=== PATIENT | female | born 1960 | race Caucasian/White ===

== ENCOUNTER 2017-05-29 14:58 | Inpatient (IN) | payer MEDICARE, MEDICAID ==
[~2017-05-29] VITALS: Ht 165.1 cm; Wt 63.5 kg
[2017-05-29] MEDS ORDERED: Vancomycin 1 GM in NS 275 ML IV ONE (15:15)
[2017-05-29] MEDS ORDERED: Lidocaine 1% MPF 10mg/ml 5ml INJ ONE (15:15)
[2017-05-29] MEDS ORDERED: Heparin 2000 units/Ns 1000ml IV ONE (15:15)
[2017-05-29] MEDS ORDERED: Morphine Sulfate 4mg/ml Inj ONE (16:07)
[2017-05-29] MEDS ORDERED: Vancomycin 1gm inj IVPB ONE (16:07)
[2017-05-29] MEDS ORDERED: Morphine Sulfate 4mg/ml Inj IVP ONE ×2 (16:15→20:00)
--- NOTE | 2017-05-29 16:21 | Diagnostic Imaging Report ---
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 The right upper extremity was prepped with alcohol. All elements of maximal sterile barrier technique were followed including usage of a cap, mask, sterile gown, sterile gloves, hand hygiene and a large sterile sheet. Sonographic evaluation of the upper extremity was performed demonstrating a patent and compressible basilic vein. Access was obtained under real-time ultrasound guidance (with utilization of sterile gel and sterile probe cover) and digital image was saved and archived. An .018 wire was introduced. Needle exchanged for a 5 Surinamese peel-away sheath. Measurements were obtained. A 5 Surinamese dual-lumen Power PICC line catheter was cut to 47 cm and introduced over the wire. Peel-away sheath and wire were removed.Catheter was secured to the skin using 2-0 Prolene suture. Both ports aspirate and flush easily. Fluoroscopic images show distal tip in the superior vena cava. Total fluoroscopic time 0.2 minutes Impression: Successful placement of an upper extremity PICC line catheter
--- NOTE | 2017-05-29 16:37 | Diagnostic Imaging Report ---
Indication: PICC line placement. Chest pain Comparison: None A single view chest radiograph was obtained. Findings: No definite infiltrate or pulmonary vascular congestion identified. PICC line is in good position with the tip at the junction of SVC and right atrium. The heart is enlarged. The aorta is mildly enlarged consistent with atherosclerotic vascular disease. The bones are osteopenic. Impression: No acute disease
[2017-05-29 17:07] LABS: ANION GAP 6 mmol/L (5-15); BLOOD UREA NITROGEN 13 mg/dL (7-18); CALCIUM 9.9 MG/DL (8.5-10.1); CARBON DIOXIDE 31 MMOL/L (21-32); CHLORIDE 100 MMOL/L (98-107); CREATININE 0.8 MG/DL (0.55-1.30); SODIUM 137 MMOL/L (136-145)
[2017-05-29 17:08] VITALS: BP 130/95
[2017-05-29 17:08] LABS: BASOPHILS % (AUTO) 0.9 % (0.0-2.0); EOSINOPHILS % (AUTO) 1.6 % (0.0-3.0); HEMATOCRIT 42.6 % (37.0-47.0); HEMOGLOBIN 14.7 G/DL (12.0-16.0); LYMPHOCYTES % (AUTO) 24.2 % (20.0-45.0); MEAN CORPUSCULAR VOLUME 93 FL (80-99); MONOCYTES % (AUTO) 12.7 % (1.0-10.0); NEUTROPHILS % (AUTO) 60.7 % (45.0-75.0); PLATELET COUNT 219 K/UL (150-450); RED BLOOD COUNT 4.58 M/UL (4.20-5.40); RED CELL DISTRIBUTION WIDTH 13.4 % (11.6-14.8); WHITE BLOOD COUNT 9.8 K/UL (4.8-10.8)
[2017-05-29 17:12] LABS: ALANINE AMINOTRANSFERASE 28 U/L (12-78); ALBUMIN/GLOBULIN RATIO 0.6 (1.0-2.7); ALKALINE PHOSPHATASE 98 U/L (46-116); ASPARTATE AMINO TRANSFERASE 24 U/L (15-37); BILIRUBIN,TOTAL 0.2 MG/DL (0.2-1.0)
[2017-05-29] MEDS ORDERED: TRAMADOL HCL50 MG ORAL (17:37)
[2017-05-29] MEDS ORDERED: ZINC SULFATE220 M1 ORAL (17:37)
[2017-05-29] MEDS ORDERED: KLONOPIN1 MG ORAL (17:37)
[2017-05-29] MEDS ORDERED: OXYCODONE HCL5 M2 ORAL (17:37)
[2017-05-29] MEDS ORDERED: ASPIRIN325 MG ORAL (17:37)
[2017-05-29] MEDS ORDERED: CALCIUM + VITA1 EAC1 PO (17:37)
[2017-05-29] MEDS ORDERED: BENADRYL25 MG ORAL (17:37)
[2017-05-29] MEDS ORDERED: LEVOFLOXACIN750 MG ORAL (17:37)
[2017-05-29] MEDS ORDERED: DOCUSATE SODIU100 MG ORAL (17:37)
[2017-05-29] MEDS ORDERED: BACLOFEN10 MG ORAL (17:37)
[2017-05-29 19:30] VITALS: BP 129/94
--- NOTE | 2017-05-29 19:32 | Consultation ---
Consult Note Consult Note ID DIC # [id number] RAMAN MULLIGAN M.D. May 29, 2017 19:32
[2017-05-29 19:55] VITALS: BP 122/89
--- NOTE | 2017-05-29 21:21 | Emergency Room Report ---
History of Present Illness General Chief Complaint: General Complaint Source: Patient, Medical Record Present Illness HPI Patient has history of cellulitis of left foot. Patient has history of diabetes. Patient states that she has require IV antibiotics in the past. [facility] She was sent here because of worsening left foot pain. Swelling and discharge. She thinks that it's infected. She denies any fever nausea vomiting or chills. Symptoms noted to be severe.No other modifying factors. No other associated signs and symptoms. No other complaints were noted. Allergies: Coded Allergies: No Known Allergies (Unverified , 05/29/17) Patient History Past Medical History: HTN, other - depression Past Surgical History: none Pertinent Family History: none Social History: Denies: smoking, alcohol use, drug use Reviewed Nursing Documentation: PMH: Agreed, PSxH: Agreed Nursing Documentation-PMH Hx Hypertension: Yes History Of Psychiatric Problem: Yes - depression Review of Systems All Other Systems: negative except mentioned in HPI Physical Exam Vital Signs Date Time Temp Pulse Resp B/P (MAP) Pulse Ox O2 Delivery O2 Flow Rate FiO2 05/29/17 14:52 98.3 92 18 130/95 97 Room Air 98.2 Sp02 EP Interpretation: reviewed, normal General Appearance: normal inspection, well appearing, no apparent distress, alert, obese Head: atraumatic Eyes: bilateral eye normal inspection ENT: normal ENT inspection, hearing grossly normal, normal voice Neck: normal inspection, full range of motion, supple, no bony tend Respiratory: normal inspection, lungs clear, normal breath sounds, no respiratory distress, no retraction, no wheezing Cardiovascular #1: regular rate, rhythm, no edema Gastrointestinal: normal inspection, normal bowel sounds, non tender, soft, no guarding, no hernia Genitourinary: no CVA tenderness Musculoskeletal: back normal, inflammation - left foot, swelling Neurologic: normal inspection, alert, responsive, speech normal Psychiatric: normal inspection, judgement/insight normal, mood/affect normal Skin: other - left foot swelling redness Medical Decision Making Diagnostic Impression: Primary Impression: Cellulitis ER Course Patient presents emergency department for pain. Differential considerations include abscess, cellulitis, ophthalmologic. Given patient's presentation for the patient IV antibiotics and PICC line was placed. Patient was given pain medication. Case was discussed with his primary care physician Dr. Kramer. Patient will be admitted to MedSurg for further treatment. Patient was started on vancomycin for the cellulitis. Chest X-Ray Diagnostic Results Chest X-Ray Diagnostic Results : Chest X-Ray Ordered: Yes # of Views/Limited/Complete: 1 View Indication: Other - PICC line EP Interpretation: No Impression: No acute disease Last Vital Signs Date Time Temp Pulse Resp B/P (MAP) Pulse Ox O2 Delivery O2 Flow Rate FiO2 05/29/17 20:10 98.1 78 17 122/89 100 Room Air 208.8 Status: improved Disposition: ADMITTED INPATIENT Condition: Serious Referrals: ANN DONALDSON (PCP) ESMER HASTINGS M.D. May 29, 2017 21:21
[2017-05-29] MEDS ORDERED: traMADol 50mg tab ORAL PRN (22:00)
[2017-05-29] MEDS: D5 1/2NS 1,000 ML IV SCH (22:54)
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
[2017-05-30] MEDS: Piperacillin/Tazobactam 3.375 GM in NS 110 ML IVPB SCH ×4 (00:39→18:08)
[2017-05-30] MEDS: Morphine Sulfate 2mg/ml Inj IVP PRN ×4 (03:00→17:18)
[2017-05-30 04:00] VITALS: BP 120/66
[2017-05-30] MEDS: Vancomycin 1gm/D5W 275ml IVPB SCH ×4 (04:20→15:54)
[2017-05-30 06:28] LABS: BASOPHILS % (AUTO) 0.8 % (0.0-2.0); EOSINOPHILS % (AUTO) 2.8 % (0.0-3.0); HEMATOCRIT 37.7 % (37.0-47.0); HEMOGLOBIN 12.7 G/DL (12.0-16.0); LYMPHOCYTES % (AUTO) 37.5 % (20.0-45.0); MEAN CORPUSCULAR VOLUME 94 FL (80-99); MONOCYTES % (AUTO) 14.6 % (1.0-10.0); NEUTROPHILS % (AUTO) 44.3 % (45.0-75.0); PLATELET COUNT 182 K/UL (150-450); RED BLOOD COUNT 4.02 M/UL (4.20-5.40); RED CELL DISTRIBUTION WIDTH 13.3 % (11.6-14.8); WHITE BLOOD COUNT 5.1 K/UL (4.8-10.8)
[2017-05-30 08:15] VITALS: BP 107/66
[2017-05-30] MEDS: Zinc Sulfate 220mg cap ORAL SCH (08:49)
[2017-05-30] MEDS: Docusate 100mg cap ORAL SCH ×3 (08:49→18:08)
[2017-05-30] MEDS: Heparin 5000 units/ml inj SUBQ SCH ×2 (08:50→22:01)
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
[2017-05-30] MEDS: Tums 500mg ORAL SCH ×2 (09:51→18:08)
[2017-05-30 10:03] LABS: APPEARANCE,URINE SLIGHTLY CLOUDY; BILIRUBIN, URINE NEGATIVE (NEGATIVE); COLOR,URINE PALE YELLOW; GLUCOSE, URINE (UA) NEGATIVE (NEGATIVE); KETONES,URINE 1+ (NEGATIVE); LEUKOCYTE ESTERASE ,URINE 1+ (NEGATIVE); NITRITE,URINE NEGATIVE (NEGATIVE); PH,URINE 6 (4.5-8.0); PROTEIN,URINE NEGATIVE (NEGATIVE); UROBILINOGEN,URINE NORMAL MG/DL (0.0-1.0)
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
[2017-05-30 10:22] LABS: ALANINE AMINOTRANSFERASE 24 U/L (12-78); ALBUMIN 2.8 G/DL (3.4-5.0); ALBUMIN/GLOBULIN RATIO 0.6 (1.0-2.7); ALKALINE PHOSPHATASE 85 U/L (46-116); ANION GAP 6 mmol/L (5-15); ASPARTATE AMINO TRANSFERASE 28 U/L (15-37); BILIRUBIN,TOTAL 0.6 MG/DL (0.2-1.0); BLOOD UREA NITROGEN 11 mg/dL (7-18); CALCIUM 9.6 MG/DL (8.5-10.1); CARBON DIOXIDE 29 MMOL/L (21-32); CHLORIDE 100 MMOL/L (98-107); CREATININE 0.8 MG/DL (0.55-1.30); POTASSIUM 3.9 MMOL/L (3.5-5.1); SODIUM 135 MMOL/L (136-145)
--- NOTE | 2017-05-30 10:58 | Diagnostic Imaging Report ---
Indication: Left foot pain Comparison: None Findings: 3 views of the left foot were obtained. There is destruction of the distal tibial plafond and ankle architecture with deformtiy on the basis of erosions and osteolysis, fractures and fragmentation of the bones. The standard architecture is not defined. There is an intramedullary isabel in the distal tibia noted. There is extravasated methylmethacrylate cement projected over the hindfoot probably emanating from the distal tibia. The cement extends to the far plantar aspect of the foot bulging the plantar aponeurosis. At the apex of the cement on the plantar part of the foot, there is focal soft tissue protuberance with infiltration of the subcutaneous fat. Please correlate clinically. There is diffuse soft tissue swelling. The bones are diffusely osteopenic. IMPRESSION: Extravasated cement, destruction and severe erosion of the ankle and hindfoot as described above.
[2017-05-30 12:00] VITALS: BP 100/64
[2017-05-30] MEDS: D5 1/2NS 1,000 ML IV SCH (14:40)
[2017-05-30 16:00] VITALS: BP 112/75
--- NOTE | 2017-05-30 21:00 | History and Physical Report ---
DATE OF ADMISSION: 05/29/2017 ATTENDING PHYSICIAN: Choco Stubbs D.O. CONSULTANTS: 1. Toñito Russ D.P.M. 2. Sarthak Sutherland M.D. 3. Rosa Cheatham M.D. CHIEF COMPLAINT: Left foot cellulitis and swelling.l BRIEF HISTORY: This is a 56[facility], presented with the above-mentioned diagnosis. She had this left foot swelling and cellulitis intermittently for the last 10 years, but for the last week started getting worse, more tender, more red, and swollen. The patient came into [facility], diagnosed with the above, admitted to medical floor for further treatment. Currently calm in bed. No complaint. No chest pain. No shortness of breath. No nausea, vomiting, or diarrhea. PAST MEDICAL HISTORY: Left foot cellulitis, hypertension, anxiety, and obesity. PAST SURGICAL HISTORY: Left foot, back, and appendectomy. MEDICATIONS: Zyprexa, aspirin, zinc, Colace, Klonopin, , Neurontin, heparin, vancomycin, Zosyn, morphine, tramadol, Percocet, and Restoril. ALLERGIES: Denies. SOCIAL HISTORY: Positive smoking. No alcohol. No intravenous drug use. FAMILY HISTORY: Noncontributory. PHYSICAL EXAMINATION: GENERAL: Calm in bed, oriented x2, in no acute distress. VITAL SIGNS: Temperature is 98 degrees, pulse 67, respirations 17, and blood pressure 107/66. CARDIOVASCULAR: No murmur. LUNGS: Distant. Poor exchange. ABDOMEN: Bowel sounds distant. EXTREMITIES: No cyanosis or clubbing. 1+ edema. Left foot slightly deformed, swollen at ankle area, slightly red and warm. No discharge. NEUROLOGIC: The patient moves all extremities, but slightly weak. LABORATORY AND DIAGNOSTIC DATA: Show CBC is normal. BMP shows albumin 3.0, otherwise, BMP is normal. ASSESSMENT: 1. Left foot cellulitis. 2. Hypertension. 3. Anxiety. 4. Hypoalbumin. 5. Obesity. PLAN: 1. Continue premedications. 2. Wound care. 3. Antibiotics per Infectious Diseases. 4. Blood pressure. 5. Pain control. 6. Dietary followup. 7. Psychiatric treatment. 8. Resume home medications. 9. Dr. Russ, Dr. Sutherland, and Dr. Herron to consult. CBC and BMP in the morning. Choco Stubbs D.O. DR: Ras JOB#: [id number] CC:
[2017-05-30] MEDS: Dyna-Hex 2% Top Sol 2oz TOPIC SCH (21:59)
[2017-05-30] MEDS: oxyCODONE HCL/Acetaminophen 5/325mg ORAL PRN (21:59)
[2017-05-31] VITALS: BP 107/73
--- NOTE | 2017-05-31 | Consultation ---
DATE OF CONSULTATION: 05/30/2017 INITIAL PSYCHIATRIC EVALUATION CONSULTING PHYSICIAN: Rosa Cheatham M.D. HISTORY OF PRESENT ILLNESS: The patient is a 56-year-old female patient. She was admitted secondary to cellulitis, but she also has overlying history of bipolar 2 disorder and so, she is having increased mood lability secondary to the stress of her medical illness and today, daily psychiatric consultation requested by attending physician to see this patient to stabilize her mood and to reduce her mood lability, agitation, and to prevent any further decline in her cognition. I saw and assessed her at bedside today. She is still very angry, irritable saying that there are lot of medication changes that she needs to make her stable more at her baseline. She states she usually does well, taking also lithium 300 mg twice a day as a mood stabilizer and for anxiety, Klonopin, which she states normally she takes three times a day and she states that usually stabilizes her well. PSYCHOTROPIC MEDICATIONS: Additional psychotropic medications are Neurontin 300 mg three times a day and Zyprexa 5 mg nightly. ALLERGIES: No known drug allergies. MEDICAL PROBLEMS: She has cellulitis, but she also has infection and chronic pain. SUBSTANCE ABUSE HISTORY: Denies drug and alcohol use. FAMILY PSYCHIATRIC HISTORY: Denies. PAIN ASSESSMENT: 06/06 pain. DEVELOPMENTAL PROBLEMS: Denies. SOCIAL HISTORY: This patient lives in a fci, [facility]. Financially supported by [facility] and Medicare. PSYCHIATRIC HISTORY: Multiple psychiatric admissions, diagnoses between bipolar 2 disorder and schizoaffective, bipolar type. MENTAL STATUS EXAMINATION: This is a 56-year-old female. Appearance is disheveled. Irritable and agitated. Affect guarded and restricted. Intellect poor. Mood, depressed and anxious. Motor activity, psychomotor agitation. Attention span is poor. Orientation x2. Speech is pressured. Thought process, disorganized and illogical. Thought content, she has paranoid delusions. Her insight and judgment is poor. Memory, 3/3 word recall after 5 minutes delay with good memory. Insight and judgment is poor. DIAGNOSES: 1. Schizoaffective, bipolar type. 2. Medical history - please see Internal Medicine note. 3. Psychosocial stressors - financial. PLAN: Plan for this patient is to provide her with 15 to 20 minutes of supportive therapy with this patient today at bedside. Also, I am going to add Rampart 300 mg twice a day to augment mood stabilizing effect with Zyprexa 5 mg nightly. Also, continue Neurontin 300 mg three times a day and Klonopin 1 mg three times a day to reduce anxiety and encourage her to interact appropriately with staff and other patients. Chart reviewed and discussed with staff. The patient seen and assessed at bedside. She will continue to be followed by Psychiatry throughout hospital course at the request of her attending physician to be seen daily. I would like to thank Dr. Choco Stubbs for this interesting consultation. I will be happy to follow this patient with you throughout her hospital course. Again, 15 to 20 minutes supportive therapy was provided. Rosa Cheatham M.D. DR: Lily JOB#: [id number] CC:
[2017-05-31] MEDS: Piperacillin/Tazobactam 3.375 GM in NS 110 ML IVPB SCH ×4 (00:36→21:42)
[2017-05-31] MEDS: Morphine Sulfate 2mg/ml Inj IVP PRN ×6 (00:37→23:25)
[2017-05-31 02:44] LABS: BASOPHILS % (AUTO) 0.9 % (0.0-2.0); EOSINOPHILS % (AUTO) 4.5 % (0.0-3.0); HEMATOCRIT 41.1 % (37.0-47.0); HEMOGLOBIN 13.8 G/DL (12.0-16.0); LYMPHOCYTES % (AUTO) 34.5 % (20.0-45.0); MEAN CORPUSCULAR VOLUME 92 FL (80-99); MONOCYTES % (AUTO) 15.9 % (1.0-10.0); NEUTROPHILS % (AUTO) 44.2 % (45.0-75.0); PLATELET COUNT 192 K/UL (150-450); RED BLOOD COUNT 4.49 M/UL (4.20-5.40); RED CELL DISTRIBUTION WIDTH 13.1 % (11.6-14.8); WHITE BLOOD COUNT 6.1 K/UL (4.8-10.8)
[2017-05-31 02:48] LABS: ANION GAP 4 mmol/L (5-15); BLOOD UREA NITROGEN 13 mg/dL (7-18); CALCIUM 9.1 MG/DL (8.5-10.1); CARBON DIOXIDE 32 MMOL/L (21-32); CHLORIDE 103 MMOL/L (98-107); CREATININE 0.8 MG/DL (0.55-1.30); POTASSIUM 3.8 MMOL/L (3.5-5.1); SODIUM 139 MMOL/L (136-145)
[2017-05-31] MEDS: Vancomycin 1gm/D5W 275ml IVPB SCH ×4 (03:14→16:13)
[2017-05-31 04:00] VITALS: BP 114/71
[2017-05-31] MEDS: D5 1/2NS 1,000 ML IV SCH (07:28)
[2017-05-31 08:00] VITALS: BP 110/73
[2017-05-31] MEDS: Zinc Sulfate 220mg cap ORAL SCH (08:43)
[2017-05-31] MEDS: Tums 500mg ORAL SCH ×2 (08:43→18:13)
[2017-05-31] MEDS: Docusate 100mg cap ORAL SCH ×2 (08:43→18:13)
[2017-05-31] MEDS: Heparin 5000 units/ml inj SUBQ SCH ×2 (08:45→21:48)
--- NOTE | 2017-05-31 08:57 | General Progress Note ---
Assessment/Plan Problem List: (1) HTN (hypertension) ICD Codes: I10 - Essential (primary) hypertension SNOMED: 79140222 (2) Edema ICD Codes: R60.9 - Edema, unspecified SNOMED: 835502658, 264968714 (3) Hypoalbuminemia ICD Codes: E88.09 - Other disorders of plasma-protein metabolism, not elsewhere classified SNOMED: 053168298 (4) Anxiety ICD Codes: F41.9 - Anxiety disorder, unspecified SNOMED: 06329099 (5) Cellulitis ICD Codes: L03.90 - Cellulitis, unspecified SNOMED: 112558617 Status: unchanged Assessment/Plan ot pt diet abx pain control cbc bmp am Subjective Constitutional: Reports: weakness Allergies: Coded Allergies: No Known Allergies (Unverified , 05/29/17) All Systems: reviewed and negative except above Subjective calm in bed Objective Last 24 Hour Vital Signs Date Time Temp Pulse Resp B/P (MAP) Pulse Ox O2 Delivery O2 Flow Rate FiO2 05/31/17 08:00 97.5 61 21 110/73 93 97.5 05/31/17 04:00 97.2 88 21 114/71 92 97.2 05/31/17 00:00 97.6 70 20 107/73 95 97.6 05/30/17 16:00 98.0 72 17 112/75 92 Room Air 98.0 05/30/17 12:00 97.7 77 17 100/64 92 Room Air 97.7 Intake and Output 05/30/17 05/31/17 19:00 07:00 Intake Total 795.000 ml 960 ml Balance 795.000 ml 960 ml Intake Oral 300 ml IV Total 795.000 ml 660 ml # Voids 8 2 Laboratory Tests 05/30/17 09:00: Urine Color Pale yellow, Urine Appearance Slightly cloudy, Urine pH 6, Urine Specific [place] 1.015, Urine Protein Negative, Urine Glucose (UA) Negative, Urine Ketones 1+H, Urine Occult Blood Negative, Urine Nitrite Negative, Urine Bilirubin Negative, Urine Urobilinogen Normal, Urine Leukocyte Esterase 1+H, Urine RBC 0-2, Urine WBC 5-10H, Urine Squamous Epithelial Cells ManyH, Urine Bacteria Few 05/30/17 09:10: Sodium Level 135L, Potassium Level 3.9, Chloride Level 100, Carbon Dioxide Level 29, Anion Gap 6, Blood Urea Nitrogen 11, Creatinine 0.8, Estimat Glomerular Filtration Rate > 60, Glucose Level 98, Calcium Level 9.6, Total Bilirubin 0.6, Aspartate Amino Transf (AST/SGOT) 28, Alanine Aminotransferase ( ALT/SGPT) 24, Alkaline Phosphatase 85, Total Protein 7.5, Albumin 2.8L, Globulin 4.7, Albumin/Globulin Ratio 0.6L 05/31/17 02:15: Sodium Level 139, Potassium Level 3.8, Chloride Level 103, Carbon Dioxide Level 32, Anion Gap 4L, Blood Urea Nitrogen 13, Creatinine 0.8, Estimat Glomerular Filtration Rate > 60, Glucose Level 109H, Calcium Level 9.1, White Blood Count 6.1, Red Blood Count 4.49, Hemoglobin 13.8, Hematocrit 41.1, Mean Corpuscular Volume 92, Mean Corpuscular Hemoglobin 30.8, Mean Corpuscular Hemoglobin Concent 33.7, Red Cell Distribution Width 13.1, Platelet Count 192, Mean Platelet Volume 8.2, Neutrophils (%) (Auto) 44.2L, Lymphocytes (%) (Auto) 34.5, Monocytes (%) (Auto) 15.9H, Eosinophils (%) (Auto) 4.5H, Basophils (%) (Auto) 0.9, Vancomycin Level Trough 11.0 Height (Feet): 5 Height (Inches): 5.00 Weight (Pounds): 140 General Appearance: lethargic EENT: normal ENT inspection Neck: normal alignment Cardiovascular: normal peripheral pulses, normal rate, regular rhythm Respiratory/Chest: chest wall non-tender, lungs clear, normal breath sounds Abdomen: normal bowel sounds, non tender, soft Extremities: normal inspection Edema: 1+ Arm (L), 1+ Arm (R), 1+ Leg (L), 1+ Leg (R), 1+ Pedal (L), 1+ Pedal ( R), 1+ Generalized Edema: trace edema Neurologic: motor weakness Skin: normal pigmentation, warm/dry ANN DONALDSON May 31, 2017 08:57
[2017-05-31 11:48] VITALS: BP 147/78
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
[2017-05-31 16:15] VITALS: BP 109/75
[2017-05-31] MEDS ORDERED: Tubing IV Secondary IV ONE (18:14)
[2017-05-31] MEDS ORDERED: D5 1/2NS 1000ml IV ONE (18:14)
[2017-05-31 20:00] VITALS: BP 108/72
--- NOTE | 2017-05-31 21:15 | Progress Note ---
DATE: 05/31/2017 THIS IS PSYCHIATRIC FOLLOWUP NOTE HISTORY OF PRESENT ILLNESS: The patient is a 56-year-old female patient. She has cellulitis. Because of her medical illness, her cognition has declined below baseline, she has mood lability and agitation so her attending physician has requested daily psychiatric consultation to manage this patient's mood lability, confusion, worsened by stress of her medical illness. I saw and assessed the patient at bedside. She does have some confusion and disorganized thought process and mood lability as well therefore she does require daily psychiatric consultation as requested by attending physician. MENTAL STATUS EXAMINATION: This is a 56-year-old female with psychomotor agitation. Mood is irritable and agitated. Affect guarded and restricted. Thought process disorganized. Denies any current suicidal or homicidal thoughts but has some paranoid delusions. Insight and judgment is poor. Memory 2/3 after 3 out of 3 word recall, so poor memory. DIAGNOSIS: Schizoaffective, bipolar type. PLAN: For this patient is to continue treatment with a dose of Neurontin 300 mg three times a day and Zyprexa at a dose of 5 mg p.o. at bedtime. Provided with 15 to 20 minutes supportive therapy. Encourage her to interact appropriately staff and other patient's. Chart reviewed and discussed with staff. Seen and assessed at bedside. Rosa Cheatham M.D. DR: Jae JOB#: [id number] CC:
[2017-05-31] MEDS: oxyCODONE HCL/Acetaminophen 5/325mg ORAL PRN (21:41)
[2017-05-31] MEDS: Dyna-Hex 2% Top Sol 2oz TOPIC SCH (21:41)
[2017-06-01] VITALS: BP 110/74
[2017-06-01] MEDS: D5 1/2NS 1,000 ML IV SCH ×2 (00:18→16:40)
[2017-06-01 04:00] VITALS: BP 112/68
[2017-06-01] MEDS: Vancomycin 1gm/D5W 275ml IVPB SCH ×4 (04:01→14:33)
[2017-06-01] MEDS: Piperacillin/Tazobactam 3.375 GM in NS 110 ML IVPB SCH ×3 (04:02→20:33)
[2017-06-01] MEDS: Morphine Sulfate 2mg/ml Inj IVP PRN ×4 (07:55→20:34)
[2017-06-01 08:00] VITALS: BP 137/100
--- NOTE | 2017-06-01 08:25 | Diagnostic Imaging Report ---
Indication: Pain Technique: 3 views of the left ankle Comparison: none Findings: There is extensive marked abnormality of the ankle with extensive destruction and evidence of prior surgery. The distal tibia is absent at the level of the distal diaphysis. The edge appears clean, so this is likely related to prior surgery. Spiculated periosteal reaction surrounds the distal tibial shaft. Bone cement is seen within the distal tibial medullary space. Old screw holes are seen through mid shaft tibia and through the cement column. There is also absence of the distal fibula beginning at a similar level. There is a soft tissue gap, beyond which are seen bone fragments in the region of the ankle joint. The architecture is completely disrupted, but these probably represent remains of the distal tibia and the talus. A large irregular plug of bone cement extends through the residual talar fragments, through the residual calcaneus, and protrudes well into the plantar soft tissues of the hindfoot. This is mostly surrounded by soft tissue rather than bone. The midfoot architecture is also disrupted, and to lesser extent in the hindfoot architecture. There is surrounding soft tissue swelling. No definite soft tissue gas demonstrated. Tiny metallic fragments are seen throughout the soft tissues, predominantly posteriorly Impression: Postsurgical and advanced destructive changes of the ankle, as described. Evidence of prior surgical instrumentation and subsequent hardware removal, with a large residual plug of bone cement largely currently within soft tissue. Destructive changes are presumably related to prior infection, trauma, surgery, or a combination of the above. The extent to which there is a superimposed acute process cannot be adequately assessed. Findings are also described on recent foot radiograph
[2017-06-01 08:27] LABS: EOSINOPHILS % (AUTO) 6.3 % (0.0-3.0); HEMATOCRIT 43.5 % (37.0-47.0); HEMOGLOBIN 14.8 G/DL (12.0-16.0); LYMPHOCYTES % (AUTO) 37.2 % (20.0-45.0); MEAN CORPUSCULAR VOLUME 92 FL (80-99); MONOCYTES % (AUTO) 11.3 % (1.0-10.0); NEUTROPHILS % (AUTO) 44.2 % (45.0-75.0); PLATELET COUNT 208 K/UL (150-450); RED BLOOD COUNT 4.75 M/UL (4.20-5.40); RED CELL DISTRIBUTION WIDTH 13.1 % (11.6-14.8)
[2017-06-01 08:38] LABS: ANION GAP 3 mmol/L (5-15); BLOOD UREA NITROGEN 10 mg/dL (7-18); CALCIUM 9.5 MG/DL (8.5-10.1); CARBON DIOXIDE 32 MMOL/L (21-32); CHLORIDE 104 MMOL/L (98-107); CREATININE 0.8 MG/DL (0.55-1.30); POTASSIUM 4.1 MMOL/L (3.5-5.1); SODIUM 139 MMOL/L (136-145)
[2017-06-01] MEDS: Docusate 100mg cap ORAL SCH ×2 (09:46→17:52)
[2017-06-01] MEDS: Tums 500mg ORAL SCH ×2 (09:47→17:52)
[2017-06-01] MEDS: Zinc Sulfate 220mg cap ORAL SCH (09:48)
[2017-06-01] MEDS: Heparin 5000 units/ml inj SUBQ SCH ×2 (09:52→20:36)
[2017-06-01] MEDS ORDERED: Milk of Magnesia 30ml Ud ORAL PRN (10:45)
[2017-06-01 12:00] VITALS: BP 149/81
--- NOTE | 2017-06-01 12:31 | Diagnostic Imaging Report ---
Indication: Reason For Exam: INFECT Technique: Sagittal, axial, coronal T1 fast spin echo and fast spin echo STIR images obtained of the ankle Comparison: Plain radiograph dated 05/31/2017 Findings: Extensive destructive abnormality of the ankle is demonstrated, also demonstrated on prior plain radiograph As demonstrated on the radiograph, the distal tibia terminates at the level of the distal diaphysis. The distal tibial shaft contains a column of what is presumably bone cement. Distal to and also surrounding the bone cement, there is high STIR and low T2 signal. As demonstrated on the radiograph, the distal fibula terminates at the level of the the distal diaphysis. There is some increased STIR signal at the tip and probably slightly decreased T1 signal. There is some indistinctness of the cortical margin. Distal to the tibia and fibula, between them and the remainder of the ankle, there is a large area of decreased T1 and increased STIR soft tissue signal, consistent with extensive soft tissue edema. Some of the areas of STIR signal abnormality appear discrete, so one or more abscesses may present in this area. Overall, the area of soft tissue abnormality measures approximately 8.8 cm transverse by 7 1 cm AP by 9.6 cm craniocaudad. This appears to extend to the medial and lateral skin surfaces, and there is suggestion of some superficial skin ulceration medially. There are also areas of signal void medially and laterally which may indicate gas bubbles, although these are not definitely demonstrated on the plain radiograph. A large area of signal void extends vertically through the central hindfoot. This measures 7.3 x 3 x 1.8 cm, and corresponds to the plug of what is presumably bone cement demonstrated on the previous radiograph. This extends well into the plantar fat. Extends through the remainder of the calcaneus, and is situated medially to what remains of the talus. It is completely surrounded by edema, however. The surrounding edema is contiguous with the larger area of edema described above, and extends all the way to the plantar surface. There is edema of the adjacent plantar skin and subcutaneous fat. In addition, between the skin and the distal end of the plug, there is a 13 x 23 x 21 mm area of STIR signal abnormality which most likely represents an abscess. This appears to extend to the skin surface which appears to be surface superficially ulcerated, may represent the draining wound described in the intake history. A fragment of residual distal tibia is seen medially. More laterally, this extends circumferentially around the area of edema. It demonstrates mostly normal T1 signal, and a few scattered areas of increased STIR signal. Portions of residual medial talus are demonstrated. This demonstrates mostly normal marrow signal. A cylindrical area of low T1 and high STIR signal is seen through the posterior calcaneus. This probably represents a whole left behind by a removed surgical screw. There is a penumbra of increased STIR and decreased T1 signal, which extends to the cortical surface laterally, which could indicate an area of infection. The posterior calcaneus appears to be discontinuous with the anterior calcaneus, from it by the cement plug and the surrounding edema. The anterior calcaneus demonstrates decreased T1 and increased STIR signal White is probably the peroneus longus tendon is surrounded by fluid. The navicular demonstrates normal morphology and normal marrow signal. However, increased STIR and decreased T1 signal are seen within the cuboid.. Grossly normal signal is seen within the cuneiforms and metatarsals. Impression: Extensive destructive abnormality of the ankle, as detailed above, due to extensive osteomyelitis and soft tissue cellulitis. Evidence of prior surgery, as described. Note that there is a plug of bone cement which is no longer surrounded by bone and extends well into the plantar soft tissues There is currently evidence of osteomyelitis of the distal tibial stump, the distal fibular stump, the anterior and posterior calcaneal fragments, the cuboid, and possibly the residual distal tibia. Evidence of extensive soft tissue cellulitis. There are probably also multiple abscesses, both distal to the tibial and fibular stumps, as well as below the bone plug connecting to the plantar surface Evidence of numerous gas bubbles, suggesting infection with a gas-forming organism Extensive fluid surrounding the peroneus longus tendon sheath. This may be infectious or noninfectious inflammatory, favor the former Findings phoned to Dr. Choco Stubbs at the time of interpretation
--- NOTE | 2017-06-01 13:49 | General Progress Note ---
Assessment/Plan Problem List: (1) HTN (hypertension) ICD Codes: I10 - Essential (primary) hypertension SNOMED: 57916495 (2) Edema ICD Codes: R60.9 - Edema, unspecified SNOMED: 463662052, 298069895 (3) Hypoalbuminemia ICD Codes: E88.09 - Other disorders of plasma-protein metabolism, not elsewhere classified SNOMED: 868506880 (4) Anxiety ICD Codes: F41.9 - Anxiety disorder, unspecified SNOMED: 54383622 (5) Cellulitis ICD Codes: L03.90 - Cellulitis, unspecified SNOMED: 597704033 Status: unchanged Assessment/Plan ot pt diet abx pain control cbc bmp am pending surgery Subjective Constitutional: Reports: weakness Allergies: Coded Allergies: No Known Allergies (Unverified , 05/29/17) All Systems: reviewed and negative except above Subjective calm in bed Objective Last 24 Hour Vital Signs Date Time Temp Pulse Resp B/P (MAP) Pulse Ox O2 Delivery O2 Flow Rate FiO2 06/01/17 12:24 97.8 06/01/17 12:00 97.7 56 18 149/81 97 Room Air 97.7 06/01/17 11:54 97.8 06/01/17 08:00 97.8 58 20 137/100 96 Room Air 97.8 06/01/17 07:55 97.8 06/01/17 04:00 97.8 66 20 112/68 96 Room Air 97.8 06/01/17 00:00 97.4 61 20 110/74 97 Room Air 97.4 05/31/17 20:00 97.6 72 20 108/72 95 Room Air 97.6 05/31/17 16:15 97.4 55 18 109/75 Room Air 97.4 Intake and Output 05/31/17 06/01/17 19:00 07:00 Intake Total 1635.000 ml 930.0 ml Output Total 650 ml Balance 985.000 ml 930.0 ml Intake Oral 700 ml 340 ml IV Total 935.000 ml 590.0 ml Output Urine Total 650 ml # Voids 4 3 Laboratory Tests 06/01/17 07:30: White Blood Count 6.0, Red Blood Count 4.75, Hemoglobin 14.8, Hematocrit 43.5, Mean Corpuscular Volume 92, Mean Corpuscular Hemoglobin 31.2H, Mean Corpuscular Hemoglobin Concent 34.1, Red Cell Distribution Width 13.1, Platelet Count 208, Mean Platelet Volume 7.8, Neutrophils (%) (Auto) 44.2L, Lymphocytes (%) (Auto) 37.2, Monocytes (%) (Auto) 11.3H, Eosinophils (%) (Auto) 6.3H, Basophils (%) ( Auto) 1.0, Sodium Level 139, Potassium Level 4.1, Chloride Level 104, Carbon Dioxide Level 32, Anion Gap 3L, Blood Urea Nitrogen 10, Creatinine 0.8, Estimat Glomerular Filtration Rate > 60, Glucose Level 94, Calcium Level 9.5 Height (Feet): 5 Height (Inches): 5.00 Weight (Pounds): 140 General Appearance: alert EENT: normal ENT inspection Neck: normal alignment Cardiovascular: normal peripheral pulses, normal rate, regular rhythm Respiratory/Chest: chest wall non-tender, lungs clear, normal breath sounds Abdomen: normal bowel sounds, non tender, soft Extremities: normal inspection Edema: 1+ Arm (L), 1+ Arm (R), 1+ Leg (L), 1+ Leg (R), 1+ Pedal (L), 1+ Pedal ( R), 1+ Generalized Edema: trace edema Neurologic: responsive, motor weakness Skin: normal pigmentation, warm/dry ANN DONALDSON Jun 01, 2017 13:49
--- NOTE | 2017-06-01 14:01 | Consultation ---
History of Present Illness General Date patient seen: Jun 01, 2017 Chief Complaint: General Complaint Reason for Consultation: osteo of left foot Present Illness HPI 56 year old female with multiple medical comorbidities and significant psychiatric history found to have worsening cellulitis of left lower extremity. Patient poor historian and makes up many different stories during interview at bedside. From what I can gather, she has had extensive osteo and disease of her left leg for many years now. States she has been wheelchair bound for anywhere from 2-10 years. Has not been ambulatory for at least the past two years and does not put pressure on left leg because of instability and discomfort. Has had "15" prior surgeries on her left leg with bone grafts as per patient. Patient seen, chart reviewed, exam noted. surgery called to evaluate left lower extremity. Allergies: Coded Allergies: No Known Allergies (Unverified , 05/29/17) Medication History Scheduled Aspirin* (Aspirin*), 325 MG ORAL DAILY, (Reported) Baclofen* (Baclofen*), 10 MG ORAL BID, (Reported) Calcium Carbonate/Vitamin D3 (Calcium + Vitamin D Tablet), 1 EACH PO DAILY, ( Reported) Clonazepam* (Klonopin*), 1 MG ORAL Q6H, (Reported) Docusate Sodium* (Docusate Sodium*), 100 MG ORAL TWICE A DAY, (Reported) Levofloxacin* (Levofloxacin*), 750 MG ORAL DAILY, (Reported) Zinc Sulfate (Zinc Sulfate*), 220 MG ORAL DAILY, (Reported) Scheduled PRN Diphenhydramine Hcl* (Benadryl*), 25 MG ORAL Q6H PRN for Itching, (Reported) Oxycodone Hcl* (Oxycodone Hcl*), 5 MG ORAL Q6H PRN for For Pain, (Reported) Tramadol Hcl* (Ultram*), 50 MG ORAL Q6H PRN for For Pain, (Reported) Patient History History Provided By: Patient, Medical Record, PMD Healthcare decision maker Resuscitation status Full Code Advanced Directive on File Yes Past Medical/Surgical History Past Medical/Surgical History: (1) Osteomyelitis of ankle (2) Anxiety (3) Cellulitis (4) Edema (5) Hypoalbuminemia (6) HTN (hypertension) Review of Systems Constitutional: Denies: no symptoms, see HPI, chills, sweats, fever, malaise, weakness, other Eye: Denies: no symptoms, see HPI, eye pain, blurred vision, tearing, double vision, nose pain, nose congestion, acuity changes, discharge, other ENT: Denies: no symptoms, see HPI, ear pain, ear discharge, nose pain, nose congestion, throat pain, throat swelling, mouth pain, hearing loss, nasal discharge, other Respiratory: Denies: no symptoms, see HPI, cough, orthopnea, shortness of breath, stridor, wheezing, CAMACHO, sputum, other Cardiovascular: Denies: no symptoms, see HPI, chest pain, edema, palpitations, syncope, PND, other Gastrointestinal: Denies: no symptoms, see HPI, abdominal pain, constipation, diarrhea, nausea, vomiting, melena, hematemesis, other Genitourinary: Denies: no symptoms, see HPI, discharge, dysuria, frequency, hematuria, pain, retention, incontinence, urgency, vag bleed/dc, other Musculoskeletal: Denies: no symptoms, see HPI, back pain, gout, joint pain, joint swelling, muscle pain, muscle stiffness, other Skin: Denies: no symptoms, see HPI, rash, change in color, change in hair/nails , dryness, lesions, other Psychiatric: Denies: no symptoms, see HPI, prior hx, anxiety, depressed feelings, emotional problems, SI, HI, hallucinations, other Neurological: Denies: no symptoms, see HPI, headache, numbness, paresthesia, seizure, tingling, tremors, focal weakness, syncope, dizziness, other Endocrine: Denies: no symptoms, see HPI, excessive sweating, flushing, intolerance to temperature, increased thirst, increased urine, unexplained weight loss, other Hematologic/Lymphatic: Denies: no symptoms, see HPI, anemia, blood clots, easy bleeding, easy bruising, swollen glands, diathesis, other ROS Narrative difficult to obtain given patients pysch history Physical Exam General Appearance: no apparent distress Lines, tubes and drains: peripheral HEENT: normocephalic Neck: supple Respiratory/Chest: lungs clear, normal breath sounds, no respiratory distress, no accessory muscle use Cardiovascular/Chest: normal peripheral pulses, normal rate Abdomen: normal bowel sounds, non tender, soft, no organomegaly Extremities: other - bilateral edema, left with cellulitis and ulcers. Skin Exam: warm/dry Neurologic: alert, responsive Last 24 Hour Vital Signs Date Time Temp Pulse Resp B/P (MAP) Pulse Ox O2 Delivery O2 Flow Rate FiO2 06/01/17 12:24 97.8 06/01/17 12:00 97.7 56 18 149/81 97 Room Air 97.7 06/01/17 11:54 97.8 06/01/17 08:00 97.8 58 20 137/100 96 Room Air 97.8 06/01/17 07:55 97.8 06/01/17 04:00 97.8 66 20 112/68 96 Room Air 97.8 06/01/17 00:00 97.4 61 20 110/74 97 Room Air 97.4 05/31/17 20:00 97.6 72 20 108/72 95 Room Air 97.6 05/31/17 16:15 97.4 55 18 109/75 Room Air 97.4 Intake and Output 05/31/17 06/01/17 19:00 07:00 Intake Total 1635.000 ml 930.0 ml Output Total 650 ml Balance 985.000 ml 930.0 ml Intake Oral 700 ml 340 ml IV Total 935.000 ml 590.0 ml Output Urine Total 650 ml # Voids 4 3 Laboratory Tests Test 06/01/17 07:30 White Blood Count 6.0 K/UL (4.8-10.8) Red Blood Count 4.75 M/UL (4.20-5.40) Hemoglobin 14.8 G/DL (12.0-16.0) Hematocrit 43.5 % (37.0-47.0) Mean Corpuscular Volume 92 FL (80-99) Mean Corpuscular Hemoglobin 31.2 PG (27.0-31.0) H Mean Corpuscular Hemoglobin Concent 34.1 G/DL (32.0-36.0) Red Cell Distribution Width 13.1 % (11.6-14.8) Platelet Count 208 K/UL (150-450) Mean Platelet Volume 7.8 FL (6.5-10.1) Neutrophils (%) (Auto) 44.2 % (45.0-75.0) L Lymphocytes (%) (Auto) 37.2 % (20.0-45.0) Monocytes (%) (Auto) 11.3 % (1.0-10.0) H Eosinophils (%) (Auto) 6.3 % (0.0-3.0) H Basophils (%) (Auto) 1.0 % (0.0-2.0) Sodium Level 139 MMOL/L (136-145) Potassium Level 4.1 MMOL/L (3.5-5.1) Chloride Level 104 MMOL/L (98-107) Carbon Dioxide Level 32 MMOL/L (21-32) Anion Gap 3 mmol/L (5-15) L Blood Urea Nitrogen 10 mg/dL (7-18) Creatinine 0.8 MG/DL (0.55-1.30) Estimat Glomerular Filtration Rate > 60 mL/min (>60) Glucose Level 94 MG/DL (74-106) Calcium Level 9.5 MG/DL (8.5-10.1) Height (Feet): 5 Height (Inches): 5.00 Weight (Pounds): 140 Medications Current Medications Medications (Trade) Dose Ordered Sig/William Route PRN Reason Start Time Stop Time Status Last Admin Dose Admin Aspirin (ASA) 325 mg DAILY ORAL 05/30/17 09:00 06/29/17 08:59 06/01/17 10:03 Baclofen (Lioresal) 10 mg BID ORAL 05/30/17 09:00 06/29/17 08:59 06/01/17 09:48 Bisacodyl (Dulcolax) 10 mg BIDPRN PRN RECTAL Constipation 06/01/17 10:45 07/01/17 10:44 Calcium Carbonate (Tums) 250 mg BID ORAL 05/30/17 09:00 06/29/17 08:59 06/01/17 09:47 Chlorhexidine Gluconate (Genevieve-Hex 2%) 1 applic DAILY@2000 TOPIC 05/30/17 20:00 06/29/17 19:59 05/31/17 21:41 Clonazepam (KlonoPIN) 1 mg TID ORAL 05/30/17 18:00 06/06/17 08:59 06/01/17 12:30 Dextrose/Sodium Chloride 1,000 ml @ 60 mls/hr [id number] IV 05/29/17 22:00 06/28/17 21:59 06/01/17 00:18 Diphenhydramine HCl (Benadryl) 25 mg Q6H PRN ORAL Itching 05/29/17 22:00 06/28/17 21:59 Docusate Sodium (Colace) 100 mg TWICE A DAY ORAL 05/30/17 09:00 06/29/17 08:59 06/01/17 09:46 Gabapentin (Neurontin) 300 mg THREE TIMES A DAY ORAL 05/30/17 09:00 06/29/17 08:59 06/01/17 12:30 Heparin Sodium (Porcine) (Heparin 5000 units/ml) 5,000 units EVERY 12 HOURS SUBQ 05/30/17 09:00 06/29/17 08:59 06/01/17 09:52 Magnesium Hydroxide (Mom) 30 ml DAILYPRN PRN ORAL Constipation 06/01/17 10:45 07/01/17 10:44 06/01/17 11:12 Morphine Sulfate (Morphine Sulfate) 2 mg Q4H PRN IVP For Pain 05/29/17 22:00 06/05/17 21:59 06/01/17 11:54 Olanzapine (ZyPREXA) 5 mg QHS ORAL 05/30/17 21:00 06/29/17 20:59 05/31/17 21:41 Oxycodone/ Acetaminophen (Percocet 5-325) 1 tab Q6HR PRN ORAL Severe Pain (Pain Scale 7-10) 05/29/17 22:00 06/05/17 21:59 05/31/17 21:41 Piperacillin Sod/ Tazobactam Sod 3.375 gm/Sodium Chloride 110 ml @ 27.5 mls/hr Q8H IVPB 05/31/17 20:00 06/07/17 19:59 06/01/17 11:12 Temazepam (Restoril) 15 mg HSPRN PRN ORAL Insomnia 05/29/17 22:00 06/05/17 21:59 05/31/17 21:41 Tramadol HCl (Ultram) 50 mg Q6H PRN ORAL Moderate Pain (Pain Scale 4-6) 05/29/17 22:00 06/05/17 21:59 Vancomycin HCl (Vanco rx to dose) 1 ea DAILY PRN MISC Per rx protocol 05/29/17 19:45 06/28/17 19:44 Vancomycin HCl 1 gm/Dextrose 275 ml @ 183.708 mls/hr Q12H IVPB 05/30/17 03:00 06/04/17 02:59 06/01/17 04:01 Zinc Sulfate (Zinc Sulfate) 220 mg DAILY ORAL 05/30/17 09:00 06/29/17 08:59 06/01/17 09:48 Assessment/Plan Problem List: (1) Osteomyelitis of ankle Assessment & Plan: Left ankle with extensive osteo and underlying disease. prior salvage attempts unsuccessful CT findings: Impression: Extensive destructive abnormality of the ankle, as detailed above, due to extensive osteomyelitis and soft tissue cellulitis. Evidence of prior surgery, as described. Note that there is a plug of bone cement which is no longer surrounded by bone and extends well into the plantar soft tissues There is currently evidence of osteomyelitis of the distal tibial stump, the distal fibular stump, the anterior and posterior calcaneal fragments, the cuboid, and possibly the residual distal tibia. Evidence of extensive soft tissue cellulitis. There are probably also multiple abscesses, both distal to the tibial and fibular stumps, as well as below the bone plug connecting to the plantar surface Evidence of numerous gas bubbles, suggesting infection with a gas-forming organism Extensive fluid surrounding the peroneus longus tendon sheath. This may be infectious or noninfectious inflammatory, favor the former. Given above, history, and findings unfortunately I dont see how there could be attempts at salvage of this extremity. disease is severe and with evidence of gas bubbles and extensive osteo would require amputation. patient is not interested in amputation at this time. she wants to continue with medical therapy of only IV Abx at this time. Will continue to discuss care with patient over the next few days and see how she feels about it as very poor prognosis for extremity given wheelchair bound for years, extensive disease process, and possible active infection. thank you for this consultation. will follow with recs. ICD Codes: M86.9 - Osteomyelitis, unspecified SNOMED: [id number] Qualifiers: Qualified Codes: M86.172 - Other acute osteomyelitis, left ankle and foot Status: stable Star Molina Jun 01, 2017 14:01
[2017-06-01 16:00] VITALS: BP 131/89
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
--- NOTE | 2017-06-01 17:00 | Progress Note ---
DATE: 06/01/2017 SUBJECTIVE: This is a 56-year-old female patient with cellulitis. She continues to have some mood lability, anxiety, and agitation. MENTAL STATUS EXAMINATION: The patient is a 56-year-old female with psychomotor agitation. Mood is irritable and agitated. Affect is labile. Intellect poor. Mood depressed and anxious. Motor activity, psychomotor agitation. Insight and judgment is poor. Orientation x2. Speech is pressured. Thought process, disorganized and illogical. DIAGNOSIS: Bipolar 2, rule out schizoaffective, bipolar type . PLAN: She is on Neurontin 300 mg three times a day to reduce anxiety and stabilize her mood. Zyprexa 5 mg at bedtime. A 15 to 20 minutes supportive therapy provided. Seen and assessed at bedside. Chart reviewed and discussed with staff. Rosa Cheatham M.D. DR: OLEGARIO JOB#: [id number] CC:
[2017-06-01 20:00] VITALS: BP 115/66
[2017-06-01] MEDS: Dyna-Hex 2% Top Sol 2oz TOPIC SCH (20:33)
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
[2017-06-02] VITALS: BP 100/56
--- NOTE | 2017-06-02 | Consultation ---
DATE OF CONSULTATION: 05/31/2017 PSYCHOTHERAPY CONSULTATION PROGRESS NOTE CONSULTING PHYSICIAN: Eliazar George PsyD. TREATING ATTENDING PHYSICIAN: Choco Stubbs D.O. HISTORY OF PRESENT ILLNESS: The patient is a 56-year-old female patient from [facility], brought into the hospital for cellulitis of her left foot and had some swelling. The patient has been feeling uncomfortable due to the above and was brought in to the hospital. The patient was then referred for psychotherapeutic services. The patient has a history of bipolar 2 disorder. She is having mood swings, irritability and agitation, and poor frustration tolerance. When this clinician assessed this patient, the patient states that she has been feeling frustrated due to her current medical condition. Her mood has been fluctuating. It is difficult for her to control her impulses, however, she denies suicidal or homicidal thoughts of ideation. Denies any auditory or visual hallucinations. This clinician assessed the patient. PAST MEDICAL HISTORY: The patient's past medical history includes a history of cellulitis, hypertension, anxiety, and obesity. ALLERGIES: The patient has no known drug allergies. SUBSTANCE ABUSE HISTORY: The patient denies history of alcohol use or illicit substance use. She states she does have a history of smoking cigarettes. PSYCHIATRIC HISTORY: The patient has a history of bipolar disorder and psychotropic medications in the past. SOCIAL HISTORY: The patient is a 56-year-old female patient from [facility]. Financially sustained through [employer]load. MENTAL STATUS EXAMINATION: The patient is alert and oriented to person and place. Mood is irritable. Affect is labile. Thought process is disorganized. Thought content, confused. The patient has poor attention and concentration. DIAGNOSIS: Schizoaffective disorder, bipolar type. PLAN: This clinician assessed the patient and assessed the patient's mental status. Addressed the patient's anxiety, provided with coping skills, relaxation exercises, addressed the patient helplessness, anxiety, and agitation. Continue with behavioral management. This clinician has reviewed the patient's chart and discussed the treatment with treatment team. Eliazar George PsyD. DR: SATNAM JOB#: [id number] CC:
[2017-06-02] MEDS: Morphine Sulfate 2mg/ml Inj IVP PRN ×5 (00:34→20:09)
[2017-06-02] MEDS: Vancomycin 1gm/D5W 275ml IVPB SCH ×4 (03:00→15:37)
[2017-06-02] MEDS: Piperacillin/Tazobactam 3.375 GM in NS 110 ML IVPB SCH ×3 (03:53→22:10)
[2017-06-02 06:08] LABS: BASOPHILS % (AUTO) 1.1 % (0.0-2.0); EOSINOPHILS % (AUTO) 5.1 % (0.0-3.0); HEMATOCRIT 38.4 % (37.0-47.0); HEMOGLOBIN 12.7 G/DL (12.0-16.0); LYMPHOCYTES % (AUTO) 37.2 % (20.0-45.0); MEAN CORPUSCULAR VOLUME 92 FL (80-99); MONOCYTES % (AUTO) 11.1 % (1.0-10.0); NEUTROPHILS % (AUTO) 45.6 % (45.0-75.0); PLATELET COUNT 189 K/UL (150-450); RED BLOOD COUNT 4.16 M/UL (4.20-5.40); RED CELL DISTRIBUTION WIDTH 13.3 % (11.6-14.8); WHITE BLOOD COUNT 7.2 K/UL (4.8-10.8)
[2017-06-02 06:17] LABS: ANION GAP 6 mmol/L (5-15); BLOOD UREA NITROGEN 12 mg/dL (7-18); CALCIUM 8.8 MG/DL (8.5-10.1); CARBON DIOXIDE 31 MMOL/L (21-32); CHLORIDE 103 MMOL/L (98-107); CREATININE 0.8 MG/DL (0.55-1.30); POTASSIUM 3.6 MMOL/L (3.5-5.1); SODIUM 139 MMOL/L (136-145)
[2017-06-02] MEDS: Docusate 100mg cap ORAL SCH ×2 (07:46→18:18)
[2017-06-02] MEDS: Zinc Sulfate 220mg cap ORAL SCH (07:46)
[2017-06-02] MEDS: Tums 500mg ORAL SCH ×2 (07:47→18:18)
[2017-06-02 08:00] VITALS: BP 127/73
[2017-06-02] MEDS: Heparin 5000 units/ml inj SUBQ SCH ×2 (08:01→21:00)
[2017-06-02] MEDS: D5 1/2NS 1,000 ML IV SCH ×2 (09:20→22:11)
[2017-06-02 12:00] VITALS: BP 100/56
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
--- NOTE | 2017-06-02 13:52 | General Surgery Progress Note ---
General Surgery-Progress Note Subjective Additional Comments no acute events. still continues to have drainage from foot ulcers/wounds Objective Last 24 Hour Vital Signs Date Time Temp Pulse Resp B/P (MAP) Pulse Ox O2 Delivery O2 Flow Rate FiO2 06/02/17 12:31 97.4 06/02/17 12:01 97.4 06/02/17 08:00 97.4 70 20 127/73 94 Room Air 97.4 06/02/17 07:46 97.8 06/02/17 00:00 97.8 64 21 100/56 93 97.8 06/01/17 20:34 97.2 06/01/17 20:00 97.2 61 21 115/66 94 97.2 06/01/17 16:15 97.8 06/01/17 16:00 97.7 66 20 131/89 99 Room Air 97.7 I&O Intake and Output 06/01/17 06/02/17 19:00 07:00 Intake Total 1702.500 ml 290.0 ml Output Total 850 ml Balance 1702.500 ml -560.0 ml Intake Oral 1040 ml IV Total 662.500 ml 290.0 ml Output Urine Total 850 ml # Voids 8 # Bowel Movements 2 Dressing: saturated, bloody Cardiovascular: RSR Respiratory: clear Abdomen: soft, flat, non-tender, present bowel sounds Extremities: no cyanosis, other - left lower extremity as noted in pictures and on MRI. foot is hanging and mangeled. there is no bone structure of function of foot. Laboratory Tests Test 06/02/17 05:55 White Blood Count 7.2 K/UL (4.8-10.8) Red Blood Count 4.16 M/UL (4.20-5.40) L Hemoglobin 12.7 G/DL (12.0-16.0) Hematocrit 38.4 % (37.0-47.0) Mean Corpuscular Volume 92 FL (80-99) Mean Corpuscular Hemoglobin 30.6 PG (27.0-31.0) Mean Corpuscular Hemoglobin Concent 33.2 G/DL (32.0-36.0) Red Cell Distribution Width 13.3 % (11.6-14.8) Platelet Count 189 K/UL (150-450) Mean Platelet Volume 7.9 FL (6.5-10.1) Neutrophils (%) (Auto) 45.6 % (45.0-75.0) Lymphocytes (%) (Auto) 37.2 % (20.0-45.0) Monocytes (%) (Auto) 11.1 % (1.0-10.0) H Eosinophils (%) (Auto) 5.1 % (0.0-3.0) H Basophils (%) (Auto) 1.1 % (0.0-2.0) Erythrocyte Sedimentation Rate 62 MM/HR (0-30) H Sodium Level 139 MMOL/L (136-145) Potassium Level 3.6 MMOL/L (3.5-5.1) Chloride Level 103 MMOL/L (98-107) Carbon Dioxide Level 31 MMOL/L (21-32) Anion Gap 6 mmol/L (5-15) Blood Urea Nitrogen 12 mg/dL (7-18) Creatinine 0.8 MG/DL (0.55-1.30) Estimat Glomerular Filtration Rate > 60 mL/min (>60) Glucose Level 134 MG/DL (74-106) H Calcium Level 8.8 MG/DL (8.5-10.1) C-Reactive Protein, Quantitative 2.2 mg/dL (0.00-0.90) H Plan Problems: (1) Osteomyelitis of ankle Assessment & Plan: Left ankle with extensive osteo and underlying disease. prior salvage attempts unsuccessful CT findings: Impression: Extensive destructive abnormality of the ankle, as detailed above, due to extensive osteomyelitis and soft tissue cellulitis. Evidence of prior surgery, as described. Note that there is a plug of bone cement which is no longer surrounded by bone and extends well into the plantar soft tissues There is currently evidence of osteomyelitis of the distal tibial stump, the distal fibular stump, the anterior and posterior calcaneal fragments, the cuboid, and possibly the residual distal tibia. Evidence of extensive soft tissue cellulitis. There are probably also multiple abscesses, both distal to the tibial and fibular stumps, as well as below the bone plug connecting to the plantar surface Evidence of numerous gas bubbles, suggesting infection with a gas-forming organism Extensive fluid surrounding the peroneus longus tendon sheath. This may be infectious or noninfectious inflammatory, favor the former. Given above, history, and findings unfortunately I dont see how there could be attempts at salvage of this extremity. disease is severe and with evidence of gas bubbles and extensive osteo would require amputation. she wants to continue with medical therapy of only IV Abx at this time. patient is beginning to understand gravity of how poor the function of foot is and reality of amputation. is considering it. Will continue to discuss care with patient over the next few days and see how she feels about it as very poor prognosis for extremity given wheelchair bound for years, extensive disease process, and possible active infection. thank you for this consultation. will follow with recs. Star Molina Jun 02, 2017 13:52
--- NOTE | 2017-06-02 14:37 | General Progress Note ---
Assessment/Plan Problem List: (1) HTN (hypertension) ICD Codes: I10 - Essential (primary) hypertension SNOMED: 65577324 (2) Edema ICD Codes: R60.9 - Edema, unspecified SNOMED: 254301677, 553173109 (3) Hypoalbuminemia ICD Codes: E88.09 - Other disorders of plasma-protein metabolism, not elsewhere classified SNOMED: 387193999 (4) Anxiety ICD Codes: F41.9 - Anxiety disorder, unspecified SNOMED: 09703294 (5) Cellulitis ICD Codes: L03.90 - Cellulitis, unspecified SNOMED: 616068072 Status: stable, tolerating diet Assessment/Plan ot pt diet abx pain control cbc bmp am pending surgery Subjective Constitutional: Reports: weakness Allergies: Coded Allergies: No Known Allergies (Unverified , 05/29/17) All Systems: reviewed and negative except above Subjective calm in bed agreed to sx Objective Last 24 Hour Vital Signs Date Time Temp Pulse Resp B/P (MAP) Pulse Ox O2 Delivery O2 Flow Rate FiO2 06/02/17 12:31 97.4 06/02/17 12:01 97.4 06/02/17 12:00 98.0 69 20 100/56 95 Room Air 98.0 06/02/17 08:00 97.4 70 20 127/73 94 Room Air 97.4 06/02/17 07:46 97.8 06/02/17 00:00 97.8 64 21 100/56 93 97.8 06/01/17 20:34 97.2 06/01/17 20:00 97.2 61 21 115/66 94 97.2 06/01/17 16:15 97.8 06/01/17 16:00 97.7 66 20 131/89 99 Room Air 97.7 Intake and Output 06/01/17 06/02/17 19:00 07:00 Intake Total 1702.500 ml 290.0 ml Output Total 850 ml Balance 1702.500 ml -560.0 ml Intake Oral 1040 ml IV Total 662.500 ml 290.0 ml Output Urine Total 850 ml # Voids 8 # Bowel Movements 2 Laboratory Tests 06/02/17 05:55: White Blood Count 7.2, Red Blood Count 4.16L, Hemoglobin 12.7, Hematocrit 38.4, Mean Corpuscular Volume 92, Mean Corpuscular Hemoglobin 30.6, Mean Corpuscular Hemoglobin Concent 33.2, Red Cell Distribution Width 13.3, Platelet Count 189, Mean Platelet Volume 7.9, Neutrophils (%) (Auto) 45.6, Lymphocytes (%) (Auto) 37.2, Monocytes (%) (Auto) 11.1H, Eosinophils (%) (Auto) 5.1H, Basophils (%) ( Auto) 1.1, Erythrocyte Sedimentation Rate 62H, Sodium Level 139, Potassium Level 3.6, Chloride Level 103, Carbon Dioxide Level 31, Anion Gap 6, Blood Urea Nitrogen 12, Creatinine 0.8, Estimat Glomerular Filtration Rate > 60, Glucose Level 134H, Calcium Level 8.8, C-Reactive Protein, Quantitative 2.2H Height (Feet): 5 Height (Inches): 5.00 Weight (Pounds): 140 General Appearance: alert EENT: normal ENT inspection Neck: normal alignment Cardiovascular: normal peripheral pulses, normal rate, regular rhythm Respiratory/Chest: chest wall non-tender, lungs clear, normal breath sounds Abdomen: normal bowel sounds, non tender, soft Extremities: normal inspection Edema: 1+ Arm (L), 1+ Arm (R), 1+ Leg (L), 1+ Leg (R), 1+ Pedal (L), 1+ Pedal ( R), 1+ Generalized Neurologic: responsive, motor weakness Skin: normal pigmentation, warm/dry ANN DONALDSON Jun 02, 2017 14:37
[2017-06-02 16:00] VITALS: BP 120/66
--- NOTE | 2017-06-02 16:00 | Progress Note ---
DATE: 06/02/2017 SUBJECTIVE: The patient is a 56-year-old female patient with cellulitis. She is still with little bit of mood lability, confusion, and disorganized thought process, worsened by the stress of her medical illness. This is why, she does require daily psychiatric consultation as requested by attending physician. MENTAL STATUS EXAMINATION: The patient is a 56-year-old female with psychomotor agitation. Mood is irritable and agitated. Affect is guarded and restricted. Thought process, disorganized and illogical. Denies any suicidal ideations. . Denies suicidal or homicidal thoughts. Insight and judgment is poor. DIAGNOSIS: Schizoaffective, bipolar type. PLAN: Continue to titrate up on her Zyprexa nightly to stabilize her mood. A 15 to 20 minutes supportive therapy provided. Chart reviewed and discussed with staff. She is seen and assessed at bedside. Rosa Cheatham M.D. DR: CHANTE JOB#: [id number] CC:
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
[2017-06-02 20:00] VITALS: BP 128/77
[2017-06-02] MEDS: Dyna-Hex 2% Top Sol 2oz TOPIC SCH (22:10)
[2017-06-03] VITALS (13 sets, daily range): BP systolic 106–154; BP diastolic 65–100
[2017-06-03] MEDS: Morphine Sulfate 2mg/ml Inj IVP PRN ×3 (00:35→08:45)
[2017-06-03] MEDS: Vancomycin 1gm/D5W 275ml IVPB SCH ×4 (03:10→15:00)
[2017-06-03] MEDS: Piperacillin/Tazobactam 3.375 GM in NS 110 ML IVPB SCH ×3 (04:11→21:15)
[2017-06-03 07:28] LABS: ANION GAP 5 mmol/L (5-15); BLOOD UREA NITROGEN 12 mg/dL (7-18); CALCIUM 8.9 MG/DL (8.5-10.1); CARBON DIOXIDE 30 MMOL/L (21-32); CHLORIDE 105 MMOL/L (98-107); CREATININE 0.8 MG/DL (0.55-1.30); POTASSIUM 3.5 MMOL/L (3.5-5.1); SODIUM 140 MMOL/L (136-145)
--- NOTE | 2017-06-03 07:55 | General Progress Note ---
Assessment/Plan Problem List: (1) HTN (hypertension) ICD Codes: I10 - Essential (primary) hypertension SNOMED: 01698091 (2) Edema ICD Codes: R60.9 - Edema, unspecified SNOMED: 953955633, 182032476 (3) Hypoalbuminemia ICD Codes: E88.09 - Other disorders of plasma-protein metabolism, not elsewhere classified SNOMED: 392375321 (4) Anxiety ICD Codes: F41.9 - Anxiety disorder, unspecified SNOMED: 41950085 (5) Cellulitis ICD Codes: L03.90 - Cellulitis, unspecified SNOMED: 086946575 Status: unchanged Assessment/Plan ot pt diet abx pain control cbc bmp am pending surgery Subjective Constitutional: Reports: weakness Allergies: Coded Allergies: No Known Allergies (Unverified , 05/29/17) All Systems: reviewed and negative except above Subjective calm in bed agreed to sx Objective Last 24 Hour Vital Signs Date Time Temp Pulse Resp B/P (MAP) Pulse Ox O2 Delivery O2 Flow Rate FiO2 06/03/17 04:00 97.9 67 18 137/70 97 97.9 06/03/17 00:00 97.6 92 20 116/75 95 97.6 06/02/17 20:00 97.0 82 22 128/77 98 97.0 06/02/17 16:38 97.4 06/02/17 16:08 97.4 06/02/17 16:00 97.7 52 20 120/66 98 Room Air 97.7 06/02/17 12:01 97.4 06/02/17 12:00 98.0 69 20 100/56 95 Room Air 98.0 06/02/17 08:00 97.4 70 20 127/73 94 Room Air 97.4 Intake and Output 06/02/17 06/03/17 19:00 07:00 Intake Total 980 ml 832.500 ml Balance 980 ml 832.500 ml Intake Oral 920 ml IV Total 60 ml 832.500 ml # Voids 5 3 # Bowel Movements 1 Laboratory Tests 06/03/17 05:00: White Blood Count [Pending], Red Blood Count [Pending], Hemoglobin [Pending], Hematocrit [Pending], Mean Corpuscular Volume [Pending], Mean Corpuscular Hemoglobin [Pending], Mean Corpuscular Hemoglobin Concent [Pending], Red Cell Distribution Width [Pending], Platelet Count [Pending], Mean Platelet Volume [ Pending], Neutrophils (%) (Auto) [Pending], Lymphocytes (%) (Auto) [Pending], Monocytes (%) (Auto) [Pending], Eosinophils (%) (Auto) [Pending], Basophils (%) (Auto) [Pending], Sodium Level 140, Potassium Level 3.5, Chloride Level 105, Carbon Dioxide Level 30, Anion Gap 5, Blood Urea Nitrogen 12, Creatinine 0.8, Estimat Glomerular Filtration Rate > 60, Glucose Level 113H, Calcium Level 8.9 Height (Feet): 5 Height (Inches): 5.00 Weight (Pounds): 140 General Appearance: alert EENT: normal ENT inspection Neck: normal alignment Cardiovascular: normal peripheral pulses, normal rate, regular rhythm Respiratory/Chest: chest wall non-tender, lungs clear, normal breath sounds Abdomen: normal bowel sounds, non tender, soft Extremities: normal inspection Edema: 1+ Arm (L), 1+ Arm (R), 1+ Leg (L), 1+ Leg (R), 1+ Pedal (L), 1+ Pedal ( R), 1+ Generalized Edema: trace edema Neurologic: responsive, motor weakness Skin: normal pigmentation, warm/dry ANN DONALDSON Jun 03, 2017 07:55
[2017-06-03 08:12] LABS: BASOPHILS % (AUTO) 0.6 % (0.0-2.0); EOSINOPHILS % (AUTO) 5.7 % (0.0-3.0); HEMATOCRIT 37.7 % (37.0-47.0); HEMOGLOBIN 12.5 G/DL (12.0-16.0); MEAN CORPUSCULAR VOLUME 93 FL (80-99); MONOCYTES % (AUTO) 8.3 % (1.0-10.0); NEUTROPHILS % (AUTO) 45.5 % (45.0-75.0); PLATELET COUNT 203 K/UL (150-450); RED BLOOD COUNT 4.07 M/UL (4.20-5.40); RED CELL DISTRIBUTION WIDTH 13.1 % (11.6-14.8)
--- NOTE | 2017-06-03 08:38 | Pre-Procedure Note/Attestation ---
Pre-Procedure Note/Attestation Complete Prior to Procedure Planned Procedure: left Procedure Narrative: below knee amputation Indications for Procedure Pre-Operative Diagnosis: severe osteomyelitis, active infected ulceration, non functional left foot/ ankle. Attestation I attest that I discussed the nature of the procedure; its benefits; risks and complications; and alternatives (and the risks and benefits of such alternatives ), prior to the procedure, with the patient (or the patient's legal sales solutions representative). I attest that, if there was a reasonable possibility of needing a blood transfusion, the patient (or the patient's legal sales solutions representative) was given the [facility] standardized written summary, pursuant to the Alfredo Malika Blood Safety Act ([place] Health and Safety Code # 1645, as amended). I attest that I re-evaluated the patient just prior to the surgery and that there has been no change in the patient's H&P, except as documented below: Star Molina Jun 03, 2017 08:38
--- NOTE | 2017-06-03 08:43 | General Surgery Progress Note ---
General Surgery-Progress Note Subjective Additional Comments no acute events. Objective Last 24 Hour Vital Signs Date Time Temp Pulse Resp B/P (MAP) Pulse Ox O2 Delivery O2 Flow Rate FiO2 06/03/17 04:00 97.9 67 18 137/70 97 97.9 06/03/17 00:00 97.6 92 20 116/75 95 97.6 06/02/17 20:00 97.0 82 22 128/77 98 97.0 06/02/17 16:38 97.4 06/02/17 16:08 97.4 06/02/17 16:00 97.7 52 20 120/66 98 Room Air 97.7 06/02/17 12:01 97.4 06/02/17 12:00 98.0 69 20 100/56 95 Room Air 98.0 I&O Intake and Output 06/02/17 06/03/17 19:00 07:00 Intake Total 980 ml 832.500 ml Balance 980 ml 832.500 ml Intake Oral 920 ml IV Total 60 ml 832.500 ml # Voids 5 3 # Bowel Movements 1 Dressing: saturated Drains: none Cardiovascular: RSR Respiratory: clear Abdomen: soft, flat, non-tender Extremities: other - see pictures and history Laboratory Tests Test 06/03/17 05:00 White Blood Count 7.0 K/UL (4.8-10.8) Red Blood Count 4.07 M/UL (4.20-5.40) L Hemoglobin 12.5 G/DL (12.0-16.0) Hematocrit 37.7 % (37.0-47.0) Mean Corpuscular Volume 93 FL (80-99) Mean Corpuscular Hemoglobin 30.6 PG (27.0-31.0) Mean Corpuscular Hemoglobin Concent 33.1 G/DL (32.0-36.0) Red Cell Distribution Width 13.1 % (11.6-14.8) Platelet Count 203 K/UL (150-450) Mean Platelet Volume 7.4 FL (6.5-10.1) Neutrophils (%) (Auto) 45.5 % (45.0-75.0) Lymphocytes (%) (Auto) 40.0 % (20.0-45.0) Monocytes (%) (Auto) 8.3 % (1.0-10.0) Eosinophils (%) (Auto) 5.7 % (0.0-3.0) H Basophils (%) (Auto) 0.6 % (0.0-2.0) Sodium Level 140 MMOL/L (136-145) Potassium Level 3.5 MMOL/L (3.5-5.1) Chloride Level 105 MMOL/L (98-107) Carbon Dioxide Level 30 MMOL/L (21-32) Anion Gap 5 mmol/L (5-15) Blood Urea Nitrogen 12 mg/dL (7-18) Creatinine 0.8 MG/DL (0.55-1.30) Estimat Glomerular Filtration Rate > 60 mL/min (>60) Glucose Level 113 MG/DL (74-106) H Calcium Level 8.9 MG/DL (8.5-10.1) Plan Problems: (1) Osteomyelitis of ankle Assessment & Plan: Left ankle with extensive osteo and underlying disease. prior salvage attempts unsuccessful MRI findings: Impression: Extensive destructive abnormality of the ankle, as detailed above, due to extensive osteomyelitis and soft tissue cellulitis. Evidence of prior surgery, as described. Note that there is a plug of bone cement which is no longer surrounded by bone and extends well into the plantar soft tissues There is currently evidence of osteomyelitis of the distal tibial stump, the distal fibular stump, the anterior and posterior calcaneal fragments, the cuboid, and possibly the residual distal tibia. Evidence of extensive soft tissue cellulitis. There are probably also multiple abscesses, both distal to the tibial and fibular stumps, as well as below the bone plug connecting to the plantar surface Evidence of numerous gas bubbles, suggesting infection with a gas-forming organism Extensive fluid surrounding the peroneus longus tendon sheath. This may be infectious or noninfectious inflammatory, favor the former. Given above, history, and findings unfortunately I dont see how there could be attempts at salvage of this extremity. disease is severe and with evidence of gas bubbles and extensive osteo would require amputation. Patient states that she has spoken to her collegues and has spent time thinking about her options. After reviewing MRI images with patient, evaluating extremity wounds/function/severity, patient has decided she is ready for amputation. she states that she has known for some time now that she would need an amputation but has been trying to avoid it. she also states that she has never seen the images and wounds like this prior so after being informed of severity of disease she now understands. her left foot has no function and is just "dangling" without motor/neuro/sensory function. she states she wants to be able to walk again and has not been able to do so for years. she has already began researching prosthetic and is actively seeking different options. she is ready for amputation and consented to procedure. will try to schedule when possible npo iv fluids abx coags consent thank you for this consultation. will follow with recs. Star Molina Jun 03, 2017 08:43
[2017-06-03] MEDS: Heparin 5000 units/ml inj SUBQ SCH (09:00)
[2017-06-03] MEDS: Docusate 100mg cap ORAL SCH ×2 (10:30→18:05)
[2017-06-03] MEDS: Zinc Sulfate 220mg cap ORAL SCH (10:30)
[2017-06-03] MEDS: Tums 500mg ORAL SCH ×2 (10:30→18:05)
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
[2017-06-03 12:49] LABS: INR 1.1 (0.9-1.1)
[2017-06-03] MEDS ORDERED: Sterile Water Irrig 1000ml IRRIG ONE (13:30)
[2017-06-03] MEDS ORDERED: Zemuron 50mg/5ml Inj IV ONE (13:30)
[2017-06-03] MEDS ORDERED: NS Irrig 1000ml ONE (13:30)
[2017-06-03] MEDS ORDERED: Metoclopramide 10mg/2ml Inj ONE (13:30)
[2017-06-03] MEDS ORDERED: Propofol 200mg/20ml IV ONE (13:30)
[2017-06-03] MEDS ORDERED: LR 1000ml ONE (13:30)
[2017-06-03] MEDS ORDERED: Glycopyrrolate 0.2mg/ml 1ml Vial ONE (13:30)
[2017-06-03] MEDS ORDERED: fentaNYL 100 mcg/2 mL IV ONE (13:30)
[2017-06-03] MEDS ORDERED: Dexamethasone 4mg/ml vial ONE (13:30)
[2017-06-03] MEDS ORDERED: Midazolam 2mg/2ml Inj ONE (13:30)
[2017-06-03] MEDS ORDERED: Ketorolac 30mg Inj ONE (13:30)
[2017-06-03] MEDS ORDERED: LR 1000ml 1,000 ML IVLG SCH (14:18)
--- NOTE | 2017-06-03 14:22 | Anethesia Preoperative Eval ---
Anesthesia Pre-op PMH/ROS General Date of Evaluation: Jun 03, 2017 Time of Evaluation: 13:30 Anesthesiologist: Edmar ASA Score: ASA 3 Mallampati Score Class I : Soft palate, uvula, fauces, pillars visible Class II: Soft palate, uvula, fauces visible Class III: Soft palate, base of uvula visible Class IV: Only hard plate visible Mallampati Classification: Class II Surgeon: Leo Diagnosis: Celuliti Left foot Surgical Procedure: let bka Anesthesia History: none Family History: no anesthesia problems Allergies: Coded Allergies: No Known Allergies (Unverified , 05/29/17) Medications: see eMAR Anesthesia Pre-op Phys. Exam Physician Exam Last Vital Signs Date Time Temp Pulse Resp B/P (MAP) Pulse Ox O2 Delivery O2 Flow Rate FiO2 06/03/17 12:00 98.1 58 19 154/86 98 Room Air 98.1 Constitutional: NAD Neurologic: CN 2-12 intact Cardiovascular: RRR Respiratory: CTA Gastrointestinal: S/NT/ND Airway Exam Mallampati Score: Class II MO: full ROM: full Teeth: intact Anesthesia Pre-op A/P Labs Hematology Test 06/03/17 05:00 White Blood Count 7.0 K/UL (4.8-10.8) Red Blood Count 4.07 M/UL (4.20-5.40) L Hemoglobin 12.5 G/DL (12.0-16.0) Hematocrit 37.7 % (37.0-47.0) Mean Corpuscular Volume 93 FL (80-99) Mean Corpuscular Hemoglobin 30.6 PG (27.0-31.0) Mean Corpuscular Hemoglobin Concent 33.1 G/DL (32.0-36.0) Red Cell Distribution Width 13.1 % (11.6-14.8) Platelet Count 203 K/UL (150-450) Mean Platelet Volume 7.4 FL (6.5-10.1) Neutrophils (%) (Auto) 45.5 % (45.0-75.0) Lymphocytes (%) (Auto) 40.0 % (20.0-45.0) Monocytes (%) (Auto) 8.3 % (1.0-10.0) Eosinophils (%) (Auto) 5.7 % (0.0-3.0) H Basophils (%) (Auto) 0.6 % (0.0-2.0) Coagulation Test 06/03/17 10:30 Prothrombin Time 11.2 SEC (9.30-11.50) Prothromb Time International Ratio 1.1 (0.9-1.1) Activated Partial Thromboplast Time 31 SEC (23-33) Chemistry Test 06/03/17 05:00 Sodium Level 140 MMOL/L (136-145) Potassium Level 3.5 MMOL/L (3.5-5.1) Chloride Level 105 MMOL/L (98-107) Carbon Dioxide Level 30 MMOL/L (21-32) Anion Gap 5 mmol/L (5-15) Blood Urea Nitrogen 12 mg/dL (7-18) Creatinine 0.8 MG/DL (0.55-1.30) Estimat Glomerular Filtration Rate > 60 mL/min (>60) Glucose Level 113 MG/DL (74-106) H Calcium Level 8.9 MG/DL (8.5-10.1) Risk Assessment & Plan Plan: GA Status Change Before Surgery: No Pre-Antibiotics Given Within 1 Hr of Incision: Gabino Tai M.D. Jun 03, 2017 14:22
--- NOTE | 2017-06-03 14:25 | Immediate Post-Op Evaluation ---
Immediate Post-Op Evalulation Immediate Post-Op Evalulation Procedure: Ariane MCLAUGHLIN Date of Evaluation: Jun 03, 2017 Time of Evaluation: 15:30 IV Fluids: 1000 Blood Products: 0 Estimated Blood Loss: 50 Urinary Output: 0 Blood Pressure Systolic: 143 Blood Pressure Diastolic: 85 Pulse Rate: 77 Respiratory Rate: 18 O2 Sat by Pulse Oximetry: 99 Temperature (Fahrenheit): 98 Pain Score (1-10): 0 Nausea: No Vomiting: No Complications one Patient Status: awake, reacts, patent, extubated, none Hydration Status: adequate Given Within 1 Hr of Incision: Gabino Tai M.D. Jun 03, 2017 14:25
--- NOTE | 2017-06-03 14:26 | 48 Hour Post Anesthesia Eval ---
Post Anesthesia Evaluation Procedure: Ariane MCLAUGHLIN Date of Evaluation: Jun 05, 2017 Time of Evaluation: 09:00 Blood Pressure Systolic: 123 0: 74 Pulse Rate: 64 Respiratory Rate: 19 Temperature (Fahrenheit): 98 O2 Sat by Pulse Oximetry: 99 Airway: patent Nausea: No Vomiting: No Hydration Status: adequate Mental Status/LOC: patient returned to baseline Post-Anesthesia Complications: oe Follow-up care needed: ready to discharge Gabino Robert M.D. Jun 03, 2017 14:26
[2017-06-03] MEDS ORDERED: Midazolam 2mg/2ml Inj IVP PRN (14:30)
[2017-06-03] MEDS ORDERED: DiphenhydrAMINE 50mg/ml Inj IVP PRN (14:30)
--- NOTE | 2017-06-03 16:04 | Brief Operative Note ---
Immediate Post Operative Note Operative Note Pre-op Diagnosis: severe osteomyelitis, active infected ulceration, non functional left foot/ ankle. Procedure: left bka Post-op Diagnosis: same as pre-op Surgeon: cami Anesthesiologist: batsheva Anesthesia: general Specimen: yes Complications: none Condition: stable Fluids: see records Estimated Blood Loss: volume - 200 Drains: none Implant(s) used?: No Star Molina Jun 03, 2017 16:04
[2017-06-03] MEDS ORDERED: HYDROcodone/Acetamin 10/325 tab ORAL PRN (16:15)
[2017-06-03] MEDS ORDERED: HYDROmorphone 1mg/ml Carpuject IVP PRN (16:15)
[2017-06-03] MEDS ORDERED: Hydromorphone 0.5mg/0.5ml inj IVP PRN (16:15)
[2017-06-03] MEDS ORDERED: Norco 5mg/325mg tab ORAL PRN (16:15)
[2017-06-03] MEDS: Hydromorphone 0.5mg/0.5ml inj IVP PRN ×2 (16:16→16:52)
[2017-06-03] MEDS: D5 1/2NS 1,000 ML IV SCH (18:33)
[2017-06-03] MEDS: Dyna-Hex 2% Top Sol 2oz TOPIC SCH (21:15)
[2017-06-04] VITALS: BP 119/85
[2017-06-04 04:00] VITALS: BP 102/65
[2017-06-04] MEDS: Piperacillin/Tazobactam 3.375 GM in NS 110 ML IVPB SCH ×3 (04:07→20:52)
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
[2017-06-04] MEDS ORDERED: Naloxone 0.4mg/ml Inj ONE (06:41)
[2017-06-04] MEDS ORDERED: Naloxone 0.4mg/ml Inj IVP ONE (07:45)
[2017-06-04 07:55] LABS: BASOPHILS % (AUTO) 0.7 % (0.0-2.0); EOSINOPHILS % (AUTO) 2.5 % (0.0-3.0); HEMATOCRIT 37.8 % (37.0-47.0); HEMOGLOBIN 12.9 G/DL (12.0-16.0); LYMPHOCYTES % (AUTO) 17.4 % (20.0-45.0); MEAN CORPUSCULAR VOLUME 93 FL (80-99); MONOCYTES % (AUTO) 11.4 % (1.0-10.0); NEUTROPHILS % (AUTO) 68.1 % (45.0-75.0); PLATELET COUNT 242 K/UL (150-450); RED BLOOD COUNT 4.07 M/UL (4.20-5.40); RED CELL DISTRIBUTION WIDTH 13.6 % (11.6-14.8); WHITE BLOOD COUNT 10.8 K/UL (4.8-10.8)
[2017-06-04 08:45] LABS: ANION GAP 2 mmol/L (5-15); BLOOD UREA NITROGEN 11 mg/dL (7-18); CALCIUM 9.3 MG/DL (8.5-10.1); CARBON DIOXIDE 32 MMOL/L (21-32); CHLORIDE 102 MMOL/L (98-107); CREATININE 1.1 MG/DL (0.55-1.30); SODIUM 136 MMOL/L (136-145)
--- NOTE | 2017-06-04 08:53 | Consultation ---
History of Present Illness General Date patient seen: Jun 04, 2017 Chief Complaint: Reason for Consultation: Present Illness Allergies: Coded Allergies: No Known Allergies (Unverified , 05/29/17) Medication History Scheduled Aspirin* (Aspirin*), 325 MG ORAL DAILY, (Reported) Baclofen* (Baclofen*), 10 MG ORAL BID, (Reported) Calcium Carbonate/Vitamin D3 (Calcium + Vitamin D Tablet), 1 EACH PO DAILY, ( Reported) Clonazepam* (Klonopin*), 1 MG ORAL Q6H, (Reported) Docusate Sodium* (Docusate Sodium*), 100 MG ORAL TWICE A DAY, (Reported) Levofloxacin* (Levofloxacin*), 750 MG ORAL DAILY, (Reported) Zinc Sulfate (Zinc Sulfate*), 220 MG ORAL DAILY, (Reported) Scheduled PRN Diphenhydramine Hcl* (Benadryl*), 25 MG ORAL Q6H PRN for Itching, (Reported) Oxycodone Hcl* (Oxycodone Hcl*), 5 MG ORAL Q6H PRN for For Pain, (Reported) Tramadol Hcl* (Ultram*), 50 MG ORAL Q6H PRN for For Pain, (Reported) Patient History Healthcare decision maker Resuscitation status Full Code Advanced Directive on File Yes Physical Exam Last 24 Hour Vital Signs Date Time Temp Pulse Resp B/P (MAP) Pulse Ox O2 Delivery O2 Flow Rate FiO2 06/04/17 07:49 97.7 06/04/17 07:46 96 Venturi Mask 10.0 45 06/04/17 07:46 Venturi Mask 10.0 45 06/04/17 06:34 97.7 06/04/17 04:00 97.7 108 20 102/65 95 Nasal Cannula 97.7 06/04/17 00:00 98.8 99 18 119/85 95 98.8 06/03/17 23:28 98.8 06/03/17 20:00 98.8 65 20 106/65 95 98.8 06/03/17 17:30 98.6 79 18 124/94 97 Room Air 98.6 06/03/17 17:22 97.9 06/03/17 17:00 97.9 87 18 139/79 99 Nasal Cannula 3.0 97.9 06/03/17 16:52 98.5 06/03/17 16:50 88 20 122/73 99 Nasal Cannula 3.0 06/03/17 16:30 91 15 150/84 99 Nasal Cannula 3.0 06/03/17 16:20 89 17 145/89 99 Simple Mask 6.0 06/03/17 16:16 98.3 06/03/17 16:10 76 21 132/98 99 Simple Mask 6.0 06/03/17 16:00 75 20 133/100 99 Simple Mask 6.0 06/03/17 15:55 98.0 77 18 131/70 99 Simple Mask 6.0 98.0 06/03/17 14:26 208.4 64 19 99 06/03/17 14:25 208.4 77 18 99 06/03/17 12:00 98.1 58 19 154/86 98 Room Air 98.1 06/03/17 09:15 97.7 Intake and Output 06/03/17 06/04/17 19:00 07:00 Intake Total 600 ml 290.0 ml Balance 600 ml 290.0 ml Intake Oral 480 ml IV Total 120 ml 290.0 ml # Voids 1 2 Laboratory Tests Test 06/03/17 10:30 06/04/17 07:30 Prothrombin Time 11.2 SEC (9.30-11.50) Prothromb Time International Ratio 1.1 (0.9-1.1) Activated Partial Thromboplast Time 31 SEC (23-33) White Blood Count 10.8 K/UL (4.8-10.8) # Red Blood Count 4.07 M/UL (4.20-5.40) L Hemoglobin 12.9 G/DL (12.0-16.0) Hematocrit 37.8 % (37.0-47.0) Mean Corpuscular Volume 93 FL (80-99) Mean Corpuscular Hemoglobin 31.8 PG (27.0-31.0) H Mean Corpuscular Hemoglobin Concent 34.3 G/DL (32.0-36.0) Red Cell Distribution Width 13.6 % (11.6-14.8) Platelet Count 242 K/UL (150-450) Mean Platelet Volume 7.4 FL (6.5-10.1) Neutrophils (%) (Auto) 68.1 % (45.0-75.0) Lymphocytes (%) (Auto) 17.4 % (20.0-45.0) L Monocytes (%) (Auto) 11.4 % (1.0-10.0) H Eosinophils (%) (Auto) 2.5 % (0.0-3.0) Basophils (%) (Auto) 0.7 % (0.0-2.0) Sodium Level 136 MMOL/L (136-145) Potassium Level 4.0 MMOL/L (3.5-5.1) Chloride Level 102 MMOL/L (98-107) Carbon Dioxide Level 32 MMOL/L (21-32) Anion Gap 2 mmol/L (5-15) L Blood Urea Nitrogen 11 mg/dL (7-18) Creatinine 1.1 MG/DL (0.55-1.30) Estimat Glomerular Filtration Rate 51.6 mL/min (>60) Glucose Level 129 MG/DL (74-106) H Calcium Level 9.3 MG/DL (8.5-10.1) Height (Feet): 5 Height (Inches): 5.00 Weight (Pounds): 140 Medications Current Medications Medications (Trade) Dose Ordered Sig/William Route PRN Reason Start Time Stop Time Status Last Admin Dose Admin Acetaminophen (Tylenol) 650 mg Q6H PRN ORAL Mild Pain (Pain Scale 1-3) 06/03/17 16:15 07/03/17 16:14 Acetaminophen/ Hydrocodone Bitart ([place] 10/325) 1 tab Q4H PRN ORAL Severe Pain (Pain Scale 7-10) 06/03/17 16:15 06/10/17 16:14 Acetaminophen/ Hydrocodone Bitart ([place] 5/325) 1 tab Q4H PRN ORAL Moderate Pain (Pain Scale 4-6) 06/03/17 16:15 06/10/17 16:14 Baclofen (Lioresal) 10 mg BID ORAL 05/30/17 09:00 06/29/17 08:59 06/03/17 18:05 Bisacodyl (Dulcolax) 10 mg BIDPRN PRN RECTAL Constipation 06/01/17 10:45 07/01/17 10:44 06/01/17 14:32 Calcium Carbonate (Tums) 250 mg BID ORAL 05/30/17 09:00 06/29/17 08:59 06/03/17 18:05 Chlorhexidine Gluconate (Genevieve-Hex 2%) 1 applic DAILY@2000 TOPIC 05/30/17 20:00 06/29/17 19:59 06/03/17 21:15 Clonazepam (KlonoPIN) 1 mg TID ORAL 05/30/17 18:00 06/06/17 08:59 06/03/17 18:05 Dextrose/Sodium Chloride 1,000 ml @ 60 mls/hr [id number] IV 05/29/17 22:00 06/28/17 21:59 06/02/17 22:11 Diphenhydramine HCl (Benadryl) 25 mg Q6H PRN ORAL Itching 05/29/17 22:00 06/28/17 21:59 Docusate Sodium (Colace) 100 mg TWICE A DAY ORAL 05/30/17 09:00 06/29/17 08:59 06/03/17 18:05 Gabapentin (Neurontin) 300 mg THREE TIMES A DAY ORAL 05/30/17 09:00 06/29/17 08:59 06/03/17 18:05 Hydromorphone HCl (Dilaudid) 0.5 mg Q3H PRN IVP Pain Score 1-3 06/03/17 16:15 06/10/17 16:14 Hydromorphone HCl (Dilaudid) 1 mg Q3H PRN IVP pain score 4-6 06/03/17 16:15 06/10/17 16:14 Hydromorphone HCl (Dilaudid) 2 mg Q3H PRN IVP pain score 7-10 06/03/17 16:15 06/10/17 16:14 06/04/17 06:34 Magnesium Hydroxide (Mom) 30 ml DAILYPRN PRN ORAL Constipation 06/01/17 10:45 07/01/17 10:44 06/01/17 11:12 Olanzapine (ZyPREXA) 5 mg QHS ORAL 05/30/17 21:00 06/29/17 20:59 06/03/17 21:15 Piperacillin Sod/ Tazobactam Sod 3.375 gm/Sodium Chloride 110 ml @ 27.5 mls/hr Q8H IVPB 05/31/17 20:00 06/07/17 19:59 06/04/17 04:07 Temazepam (Restoril) 15 mg HSPRN PRN ORAL Insomnia 05/29/17 22:00 06/05/17 21:59 06/02/17 23:46 Vancomycin HCl (Vanco rx to dose) 1 ea DAILY PRN MISC Per rx protocol 05/29/17 19:45 06/28/17 19:44 Zinc Sulfate (Zinc Sulfate) 220 mg DAILY ORAL 05/30/17 09:00 06/29/17 08:59 06/03/17 10:30 Assessment/Plan Assessment/Plan (1) Left LE Pain (2) Left ankle osteomyelitis (3) S/p BKA Seen dictated. JOSE MANUEL ANDRADE Jun 04, 2017 08:53
[2017-06-04 09:00] VITALS: BP 128/73
[2017-06-04] MEDS ORDERED: oxyCODONE HCL/Acetaminophen 5/325mg ORAL PRN (09:00)
[2017-06-04] MEDS: Zinc Sulfate 220mg cap ORAL SCH (09:34)
[2017-06-04] MEDS: Tums 500mg ORAL SCH ×2 (09:34→18:18)
[2017-06-04] MEDS: HYDROmorphone 1mg/ml Carpuject IVPB PRN ×3 (09:35→21:53)
[2017-06-04] MEDS: Docusate 100mg cap ORAL SCH ×2 (09:45→18:19)
--- NOTE | 2017-06-04 10:39 | Diagnostic Imaging Report ---
Indication: Chest pain Comparison: May 29, 2017 A single view chest radiograph was obtained. Findings: Mild basal atelectasis demonstrated. PICC line again noted in the position. Heart size is within normal limits. The bones are slightly osteopenic. IMPRESSION: Mild basal atelectasis
[2017-06-04] MEDS: D5 1/2NS 1,000 ML IV SCH (11:20)
--- NOTE | 2017-06-04 11:48 | General Progress Note ---
Progress Note Progress Note Surgery: doing well. no acute events. states she feels well and is happy. no n/v/f/c. tolerating diet. comfortable. pain in left stump afebrile, HD stable, labs stable. exam with clean dressings and leg elevated. POD #1 s/p left BKA. recovering -diet as tolerated -cont abx as per ID -needs to keep left leg/stump elevated to avoid edema -AM labs -incentive spirometry Star Molina Jun 04, 2017 11:47
[2017-06-04 12:00] VITALS: BP 109/64
--- NOTE | 2017-06-04 12:47 | 48 Hour Post Anesthesia Eval ---
Post Anesthesia Evaluation Procedure: Let ARNOLDO Date of Evaluation: Jun 04, 2017 Time of Evaluation: 10:40 Blood Pressure Systolic: 122 0: 58 Pulse Rate: 74 Respiratory Rate: 20 Temperature (Fahrenheit): 97.5 O2 Sat by Pulse Oximetry: 98 Airway: patent Nausea: No Vomiting: No Pain Intensity: 3 Hydration Status: adequate Cardiopulmonary Status: stable Mental Status/LOC: patient returned to baseline Follow-up Care/Observations: n/a Post-Anesthesia Complications: none Follow-up care needed: N/A DIVINE BUSCH M.D. Jun 04, 2017 12:47
[2017-06-04 16:00] VITALS: BP 124/78
--- NOTE | 2017-06-04 16:31 | Cardiac Electrophysiology PN ---
Subjective Subjective [id number] Objective Last 24 Hour Vital Signs Date Time Temp Pulse Resp B/P (MAP) Pulse Ox O2 Delivery O2 Flow Rate FiO2 06/04/17 14:39 97.6 06/04/17 13:40 100.8 06/04/17 12:47 207.5 74 20 98 06/04/17 12:00 100.8 99 18 109/64 94 Venturi Mask 4.0 45 100.8 06/04/17 09:00 98.2 100 18 128/73 96 Venturi Mask 4.0 45 98.2 06/04/17 07:49 97.7 06/04/17 07:46 96 Venturi Mask 10.0 45 06/04/17 07:46 Venturi Mask 10.0 45 06/04/17 06:34 97.7 06/04/17 04:00 97.7 108 20 102/65 95 Nasal Cannula 97.7 06/04/17 00:00 98.8 99 18 119/85 95 98.8 06/03/17 23:28 98.8 06/03/17 20:00 98.8 65 20 106/65 95 98.8 06/03/17 17:30 98.6 79 18 124/94 97 Room Air 98.6 06/03/17 17:22 97.9 06/03/17 17:00 97.9 87 18 139/79 99 Nasal Cannula 3.0 97.9 06/03/17 16:52 98.5 06/03/17 16:50 88 20 122/73 99 Nasal Cannula 3.0 Intake and Output 06/03/17 06/04/17 19:00 07:00 Intake Total 600 ml 290.0 ml Balance 600 ml 290.0 ml Intake Oral 480 ml IV Total 120 ml 290.0 ml # Voids 1 2 Laboratory Tests Test 06/04/17 07:30 06/04/17 08:03 White Blood Count 10.8 K/UL (4.8-10.8) # Red Blood Count 4.07 M/UL (4.20-5.40) L Hemoglobin 12.9 G/DL (12.0-16.0) Hematocrit 37.8 % (37.0-47.0) Mean Corpuscular Volume 93 FL (80-99) Mean Corpuscular Hemoglobin 31.8 PG (27.0-31.0) H Mean Corpuscular Hemoglobin Concent 34.3 G/DL (32.0-36.0) Red Cell Distribution Width 13.6 % (11.6-14.8) Platelet Count 242 K/UL (150-450) Mean Platelet Volume 7.4 FL (6.5-10.1) Neutrophils (%) (Auto) 68.1 % (45.0-75.0) Lymphocytes (%) (Auto) 17.4 % (20.0-45.0) L Monocytes (%) (Auto) 11.4 % (1.0-10.0) H Eosinophils (%) (Auto) 2.5 % (0.0-3.0) Basophils (%) (Auto) 0.7 % (0.0-2.0) Sodium Level 136 MMOL/L (136-145) Potassium Level 4.0 MMOL/L (3.5-5.1) Chloride Level 102 MMOL/L (98-107) Carbon Dioxide Level 32 MMOL/L (21-32) Anion Gap 2 mmol/L (5-15) L Blood Urea Nitrogen 11 mg/dL (7-18) Creatinine 1.1 MG/DL (0.55-1.30) Estimat Glomerular Filtration Rate 51.6 mL/min (>60) Glucose Level 129 MG/DL (74-106) H Calcium Level 9.3 MG/DL (8.5-10.1) Arterial Blood pH 7.360 (7.350-7.450) Arterial Blood Partial Pressure CO2 52.5 mmHg (35.0-45.0) H Arterial Blood Partial Pressure O2 64.0 mmHg (75.0-100.0) L Arterial Blood HCO3 29.6 mmol/L (22.0-26.0) H Arterial Blood Oxygen Saturation 92.0 % (92.0-98.0) Arterial Blood Base Excess 3.2 Miguel Angel Test Positive DONA BYNUM Jun 04, 2017 16:31
[2017-06-04] MEDS: Vancomycin 1gm/D5W 275ml IVPB SCH ×2 (18:18)
[2017-06-04 20:00] VITALS: BP 117/76
[2017-06-04] MEDS: Dyna-Hex 2% Top Sol 2oz TOPIC SCH (20:51)
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
[2017-06-05] VITALS: BP 119/68
[2017-06-05] MEDS: HYDROmorphone 1mg/ml Carpuject IVPB PRN ×3 (02:14→08:43)
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
[2017-06-05] MEDS: D5 1/2NS 1,000 ML IV SCH ×2 (03:41→21:38)
[2017-06-05] MEDS: Piperacillin/Tazobactam 3.375 GM in NS 110 ML IVPB SCH (03:46)
[2017-06-05 04:00] VITALS: BP 108/66
--- NOTE | 2017-06-05 04:45 | Consultation ---
DATE OF CONSULTATION: 06/04/2017 GNOTE: POOR AUDIO This is a coverage for Dr. Choco Stubbs. HEMATOLOGY/ONCOLOGY CONSULTATION CONSULTING PHYSICIAN: Colby Canada M.D. REASON FOR CONSULTATION: IDENTIFICATION DATA: The patient is a pleasant 56-year-old female who at this time presents to the hospital . The patient does have past medical comorbidities, also significant lower extremity was obtained from the patient, prior history of . The patient was called by Surgery for evaluation of left lower extremity. The patient with extensive due to extensive osteomyelitis, soft tissue swelling, surgery. . The patient was seen by Surgical Service. The patient underwent left [id number] amputation. Stump has been in place. Currently, hemodynamically stable. She has been seen by pain management service for further evaluation and treatment. Again, I am following the patient at this time for Internal Medicine reasons. PAST MEDICAL HISTORY: Diabetes mellitus and hypertension. PAST SURGICAL HISTORY: Left BKA. MEDICATIONS: Reviewed. ALLERGIES: No known drug allergies. SOCIAL HISTORY: Resident of a [facility] facility. FAMILY HISTORY: Noncontributory. REVIEW OF SYSTEMS: CONSTITUTIONAL: No fevers, chills, or night sweats. SKIN: No rashes, bumps, or itching. HEENT: No headache, hearing or vision changes. BREASTS: No lumps, pain, or discharge. PULMONARY: No cough, sputum, or shortness of breath. GASTROINTESTINAL: No nausea or vomiting. GENITOURINARY: No dysuria, frequency, or urgency. MUSCULOSKELETAL: No joint swelling, muscle pain, or trauma. PHYSICAL EXAMINATION: VITAL SIGNS: Reviewed. GENERAL: No distress. PULMONARY: Decreased breath sounds. CARDIOVASCULAR: Regular rate. No S3 or S4. ABDOMEN: Soft, nontender, and nondistended. EXTREMITIES: Status post left BKA. ASSESSMENT AND RECOMMENDATIONS: 1. Osteomyelitis, status post below-knee amputation. The patient tolerated the procedure well and is postop day #1. Seen by ID Service with osteomyelitis. Continue antibiotics as needed. 2. Pain due to status post operation. Surgery went well and getting pain management as per Pain Management Service. 3. History of anxiety. 4. Hypertension. Systolic blood pressure goal less than . 5. Diabetes mellitus. Monitor blood sugar and goal between 80 and . I appreciate the consultation. Colby Canada M.D. DR: HIRO JOB#: [id number] CC:
--- NOTE | 2017-06-05 05:00 | Consultation ---
DATE OF CONSULTATION: 06/04/2017 PAIN MANAGEMENT CONSULTATION CONSULTING PHYSICIAN: Michael Turner M.D. REFERRING PHYSICIAN: Colby Canada M.D. PHYSICIAN PROFESSIONAL SOCCER PLAYER: Marcus Vazquez CHIEF COMPLAINT: Left lower extremity pain. HISTORY OF PRESENT ILLNESS: This is a 56-year-old female, who is being seen on the Medical[facility]Surgical floor of [facility] for initial comprehensive pain management consultation. The patient was admitted under the care of Dr. Stubbs, complaining of left lower extremity pain, found to have severe osteomyelitis with abscess of the left lower extremity and motor deficits in the extremity with continued migration of the infection into her leg, was seen by a general surgeon, principal law clerk, and status post [id number] amputation, was found this morning with Dilaudid0.5-1-2mg IV every two hours as needed for [id number] and severe pain, however, the patient was given a Dilaudid 2 mg IV and started to have respiratory depression, was given Narcan and is doing better, however, we were consulted so that the patient would have adequate pain control while here in the hospital for a faster recovery. PAST MEDICAL HISTORY: Hypertension, anxiety, obesity, and diabetes mellitus. PAST SURGICAL HISTORY: Left ankle reconstructive surgery. MEDICATIONS: Aspirin, baclofen, calcium, Klonopin, docusate, levofloxacin, zinc sulfate, Benadryl, oxycodone, and tramadol. ALLERGIES: No known drug allergies. SOCIAL HISTORY: Denies smoking tobacco, drinking alcohol, or drug abuse. REVIEW OF SYSTEMS: Denies rash, fever, chills, sweating, dizziness, drowsiness, blurred vision, sore throat, or change in her weight. No shortness of breath, chest pain or cough. No nausea, vomiting, diarrhea, or blood in the stool or urine. No bowel or bladder incontinence. No dysuria. She is complaining of left lower extremity pain. PHYSICAL EXAMINATION: GENERAL: Alert, awake, and oriented x3. VITAL SIGNS: Blood pressure 102/65, heart rate is 108, oxygen saturation is 95%, respiratory rate is 20, and temperature is 98 degrees Fahrenheit. HEENT: PERRLA. NECK: Range of motion is full in all directions. No tenderness. No adenopathy. LUNGS: Decreased breath sounds bilaterally. HEART: Regular. ABDOMEN: Obese. BACK: Range of motion is decreased in flexion and extension. EXTREMITIES: Upper and lower extremity range of motion is full in all directions. Motor is intact. No cyanosis, no clubbing, no edema. Sensory is intact. Reflexes are unobtainable. No adenopathy. Lower extremity range of motion is decreased due to the patient's condition with left [id number] amputation noted. ASSESSMENT AND PLAN: This is a 56-year-old female with left lower extremity pain secondary to osteomyelitis status post [id number] amputation. The patient will be discontinued of Dilaudid IV, will be started on Dilaudid 1 mg IV piggyback every three hours as needed for pain. She will be started on Percocet 5/325 mg one tablet every four hours as needed for severe pain and increase the Neurontin to 300 mg four times a day. The patient was discussed with Dr. Turner and Dr. Turner concurred. We will follow the patient. Thank you very much for the courtesy of this consultation. Michael Turner M.D. MELINA Vazquez DR: LONNY JOB#: [id number] CC: PIERRE
[2017-06-05] MEDS: Vancomycin 1gm/D5W 275ml IVPB SCH ×4 (07:08→18:26)
[2017-06-05 08:00] VITALS: BP 124/84
--- NOTE | 2017-06-05 09:43 | General Progress Note ---
Assessment/Plan Assessment/Plan (1) Left LE Pain (2) Left ankle osteomyelitis (3) S/p BKA Patient will be continued on Dilaudid IVPB and Percocet. D/w Dr. Turner and he concurred. Subjective Date patient seen: Jun 05, 2017 Time patient seen: 09:00 - am Allergies: Coded Allergies: No Known Allergies (Unverified , 05/29/17) Subjective REVIEW OF SYSTEMS: Denies rash, fever, chills, sweating, dizziness, drowsiness, blurred vision, sore throat, or change in her weight. No shortness of breath, chest pain or cough. No nausea, vomiting, diarrhea, or blood in the stool or urine. No bowel or bladder incontinence. No dysuria. She is complaining of left lower extremity pain. SUBJECTIVE: Patient is in bed no signs of distress at this time. She continues to c/o pain however has been tolerated on the Dilaudid. I d/w nurse that Dilaudid should be administered as IVPB. Objective Last 24 Hour Vital Signs Date Time Temp Pulse Resp B/P (MAP) Pulse Ox O2 Delivery O2 Flow Rate FiO2 06/05/17 08:00 98.7 99 19 124/84 96 Venturi Mask 10.0 98.7 06/05/17 04:00 98.4 85 20 108/66 95 98.4 06/05/17 00:00 99.7 92 20 119/68 95 99.7 06/04/17 20:00 99.3 84 20 117/76 94 99.3 06/04/17 16:00 99.0 81 18 124/78 97 Venturi Mask 4.0 45 99.0 06/04/17 14:39 97.6 06/04/17 13:40 100.8 06/04/17 12:47 207.5 74 20 98 06/04/17 12:00 100.8 99 18 109/64 94 Venturi Mask 4.0 45 100.8 Intake and Output 06/04/17 06/05/17 19:00 07:00 Intake Total 540.0 ml Balance 540.0 ml Intake Oral 250 ml IV Total 290.0 ml # Voids 3 Laboratory Tests 06/04/17 17:20: Vancomycin Level Trough 7.3 06/05/17 05:30: Vancomycin Level Trough 7.8, Thyroid Stimulating Hormone (TSH) 0.401, Free Thyroxine 1.59H Height (Feet): 5 Height (Inches): 5.00 Weight (Pounds): 140 Objective GENERAL: Alert, awake, and oriented x3. HEENT: PERRLA. NECK: Range of motion is full in all directions. No tenderness. No adenopathy. LUNGS: Decreased breath sounds bilaterally. HEART: Regular. ABDOMEN: Obese. BACK: Range of motion is decreased in flexion and extension. EXTREMITIES: Lower extremity range of motion is decreased due to the patient's condition with left [id number] amputation noted. NEURO: No changes. JOSE MANUEL ANDRADE Jun 05, 2017 09:43
[2017-06-05] MEDS: Tums 500mg ORAL SCH ×2 (10:05→18:26)
[2017-06-05] MEDS: Zinc Sulfate 220mg cap ORAL SCH (10:05)
[2017-06-05] MEDS: Docusate 100mg cap ORAL SCH ×2 (10:05→18:26)
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
[2017-06-05 12:00] VITALS: BP 132/95
--- NOTE | 2017-06-05 12:14 | General Progress Note ---
Progress Note Progress Note Surgery: doing well. improving. tolerating diet. comfortable. pain being managed but does want more pain meds. no n/v/f/c. afebrile, HD stable, labs reviewed. dressings removed and wound evaluated. wound c/d/i. flap looks good without ischemia or signs of infection. edema below knee noted. no erythema or drainage. -continue to keep left lower extremity elevated to help with edema. -new dressings applied. leave dressings in place. will remove and leave open to air in a few days -will follow with recs. thank you. Star Molina Jun 05, 2017 12:13
[2017-06-05] MEDS: HYDROmorphone 1 MG in NS 55 ML IVPB PRN ×3 (12:31→19:07)
[2017-06-05] MEDS: Zoysn 3.37gm in NS 100ML IVPB SCH ×2 (13:56→21:40)
[2017-06-05 16:00] VITALS: BP 127/91
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
[2017-06-05] MEDS ORDERED: D5 1/2NS 1000ml IV ONE (16:50)
[2017-06-05 20:00] VITALS: BP 115/66
[2017-06-05] MEDS: Dyna-Hex 2% Top Sol 2oz TOPIC SCH (21:38)
[2017-06-06] VITALS: BP 127/78
[2017-06-06 04:32] VITALS: BP 119/68
[2017-06-06] MEDS: Vancomycin 1gm/D5W 275ml IVPB SCH ×4 (05:23→17:48)
[2017-06-06 05:30] LABS: BASOPHILS % (AUTO) 0.4 % (0.0-2.0); EOSINOPHILS % (AUTO) 2.3 % (0.0-3.0); HEMATOCRIT 29.7 % (37.0-47.0); HEMOGLOBIN 9.7 G/DL (12.0-16.0); LYMPHOCYTES % (AUTO) 17.2 % (20.0-45.0); MEAN CORPUSCULAR VOLUME 96 FL (80-99); MONOCYTES % (AUTO) 14.5 % (1.0-10.0); NEUTROPHILS % (AUTO) 65.6 % (45.0-75.0); PLATELET COUNT 159 K/UL (150-450); RED BLOOD COUNT 3.09 M/UL (4.20-5.40); RED CELL DISTRIBUTION WIDTH 13.8 % (11.6-14.8); WHITE BLOOD COUNT 9.2 K/UL (4.8-10.8)
[2017-06-06] MEDS: Zoysn 3.37gm in NS 100ML IVPB SCH ×2 (06:28→14:09)
[2017-06-06 08:00] VITALS: BP 125/78
[2017-06-06 08:10] LABS: ALANINE AMINOTRANSFERASE 22 U/L (12-78); ALBUMIN 2.1 G/DL (3.4-5.0); ALBUMIN/GLOBULIN RATIO 0.5 (1.0-2.7); ALKALINE PHOSPHATASE 65 U/L (46-116); ANION GAP 4 mmol/L (5-15); ASPARTATE AMINO TRANSFERASE 20 U/L (15-37); BILIRUBIN,TOTAL 0.4 MG/DL (0.2-1.0); BLOOD UREA NITROGEN 4 mg/dL (7-18); CARBON DIOXIDE 33 MMOL/L (21-32); CHLORIDE 102 MMOL/L (98-107); CREATININE 0.7 MG/DL (0.55-1.30); POTASSIUM 3.7 MMOL/L (3.5-5.1); SODIUM 139 MMOL/L (136-145)
[2017-06-06] MEDS: Docusate 100mg cap ORAL SCH ×2 (09:33→17:47)
[2017-06-06] MEDS: Tums 500mg ORAL SCH ×2 (09:34→17:47)
[2017-06-06] MEDS: Zinc Sulfate 220mg cap ORAL SCH (09:34)
[2017-06-06] MEDS: HYDROmorphone 1mg/ml Carpuject IVPB PRN (09:34)
--- NOTE | 2017-06-06 11:25 | General Progress Note ---
Assessment/Plan Assessment/Plan 1. Osteomyelitis, status post below-knee amputation. --> The patient tolerated the procedure well and is postop day #1. --> Seen by ID Service with osteomyelitis. Continue antibiotics as needed. 2. Pain due to status post operation. Surgery went well and getting pain management as per Pain Management Service. 3. History of anxiety. 4. Hypertension. --> Monitor BP. Has been WNL. 5. Diabetes mellitus. Monitor blood sugar and goal between 80 and Subjective Date patient seen: Jun 05, 2017 Constitutional: Denies: no symptoms, chills, diaphoresis, fever, malaise, weakness, other HEENT: Denies: no symptoms, eye pain, blurred vision, tearing, double vision, ear pain, ear discharge, nose pain, nose congestion, throat pain, throat swelling, mouth pain, mouth swelling, other Cardiovascular: Denies: no symptoms, chest pain, edema, irregular heart rate, lightheadedness, palpitations, syncope, other Respiratory: Denies: no symptoms, cough, orthopnea, shortness of breath, SOB with excertion, SOB at rest, sputum, stridor, wheezing, other Gastrointestinal/Abdominal: Denies: no symptoms, abdomen distended, abdominal pain, black stools, tarry stools, blood in stool, constipated, diarrhea, difficulty swallowing, nausea, poor appetite, poor fluid intake, rectal bleeding , vomiting, other Genitourinary: Denies: no symptoms, burning, discharge, frequency, flank pain, hematuria, incontinence, pain, urgency, other Neurologic/Psychiatric: Denies: no symptoms, anxiety, depressed, emotional problems, headache, numbness, paresthesia, pre-existing deficit, seizure, tingling, tremors, weakness, other Allergies: Coded Allergies: No Known Allergies (Unverified , 05/29/17) Subjective Hgb downtrended. On antibiotics. Objective Last 24 Hour Vital Signs Date Time Temp Pulse Resp B/P (MAP) Pulse Ox O2 Delivery O2 Flow Rate FiO2 06/06/17 08:00 97.7 78 125/78 97.7 06/06/17 04:32 98.2 83 19 119/68 99 98.2 06/06/17 00:00 99.3 92 20 127/78 100 99.3 06/05/17 20:03 Venturi Mask 10.0 45 06/05/17 20:03 98 Venturi Mask 10.0 45 06/05/17 20:00 99.8 78 20 115/66 100 Room Air 99.8 06/05/17 16:00 98.2 92 20 127/91 98 98.2 06/05/17 12:00 97.4 98 19 132/95 98 Venturi Mask 10.0 97.4 Intake and Output 06/05/17 06/06/17 18:59 06:59 Intake Total 160 ml 600 ml Balance 160 ml 600 ml Intake Oral 160 ml 480 ml IV Total 120 ml # Voids 5 2 Laboratory Tests 06/06/17 05:05: White Blood Count 9.2, Red Blood Count 3.09L, Hemoglobin 9.7L, Hematocrit 29.7L , Mean Corpuscular Volume 96, Mean Corpuscular Hemoglobin 31.3H, Mean Corpuscular Hemoglobin Concent 32.6, Red Cell Distribution Width 13.8, Platelet Count 159, Mean Platelet Volume 7.9, Neutrophils (%) (Auto) 65.6, Lymphocytes (% ) (Auto) 17.2L, Monocytes (%) (Auto) 14.5H, Eosinophils (%) (Auto) 2.3, Basophils (%) (Auto) 0.4 06/06/17 06:40: Sodium Level 139, Potassium Level 3.7, Chloride Level 102, Carbon Dioxide Level 33H, Anion Gap 4L, Blood Urea Nitrogen 4L, Creatinine 0.7, Estimat Glomerular Filtration Rate > 60, Glucose Level 128H, Calcium Level 9.0, Total Bilirubin 0.4 , Aspartate Amino Transf (AST/SGOT) 20, Alanine Aminotransferase (ALT/SGPT) 22, Alkaline Phosphatase 65, Total Protein 6.5, Albumin 2.1L, Globulin 4.4, Albumin/ Globulin Ratio 0.5L Height (Feet): 5 Height (Inches): 5.00 Weight (Pounds): 140 General Appearance: lethargic Cardiovascular: normal rate Respiratory/Chest: lungs clear Abdomen: non tender, soft Colby Canada Jun 06, 2017 11:25
[2017-06-06 12:00] VITALS: BP 124/77
[2017-06-06] MEDS: HYDROmorphone 1 MG in NS 55 ML IVPB PRN (12:45)
--- NOTE | 2017-06-06 13:05 | General Progress Note ---
Progress Note Progress Note Surgery: doing well. no acute events. asking for pain meds and states that her pain doctor told her she can have more. no n/v/f/c. labs reviewed and okay. exam demonstrates less edema in stump today. wound c/d/i. flap looks good with good take. no areas of ischemia or failure. no signs of infection -keep left leg elevated -will remove dressings in 1-2 days and leave open to air. Star Molina Jun 06, 2017 13:05
[2017-06-06] MEDS: D5 1/2NS 1,000 ML IV SCH (14:06)
[2017-06-06] MEDS: HYDROmorphone 1mg/ml Carpuject IVP PRN ×2 (15:45→19:01)
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
[2017-06-06 16:00] VITALS: BP 125/78
[2017-06-06 20:19] VITALS: BP 120/59
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
[2017-06-06] MEDS: Dyna-Hex 2% Top Sol 2oz TOPIC SCH (21:50)
[2017-06-07 00:20] VITALS: BP 103/61
[2017-06-07 04:39] VITALS: BP 117/73
[2017-06-07] MEDS: HYDROmorphone 1mg/ml Carpuject IVP PRN ×6 (04:46→23:14)
[2017-06-07] MEDS: Vancomycin 1gm/D5W 275ml IVPB SCH ×2 (06:39)
[2017-06-07] MEDS: D5 1/2NS 1,000 ML IV SCH ×2 (06:40→23:19)
[2017-06-07 08:00] VITALS: BP 116/72
[2017-06-07] MEDS: Tums 500mg ORAL SCH ×2 (08:37→17:50)
[2017-06-07] MEDS: Docusate 100mg cap ORAL SCH ×2 (08:37→17:50)
[2017-06-07] MEDS: Zinc Sulfate 220mg cap ORAL SCH (08:38)
--- NOTE | 2017-06-07 11:51 | General Progress Note ---
Assessment/Plan Assessment/Plan 1. Osteomyelitis, status post below-knee amputation. --> The patient tolerated the procedure well and is postop day #1. --> Seen by ID Service with osteomyelitis. Continue antibiotics as needed. 2. Pain due to status post operation. Surgery went well and getting pain management as per Pain Management Service. 3. History of anxiety. 4. Hypertension. --> Monitor BP. Has been WNL. 5. Diabetes mellitus. Monitor blood sugar and goal between 80 and Subjective Date patient seen: Jun 06, 2017 Constitutional: Denies: no symptoms, chills, diaphoresis, fever, malaise, weakness, other HEENT: Denies: no symptoms, eye pain, blurred vision, tearing, double vision, ear pain, ear discharge, nose pain, nose congestion, throat pain, throat swelling, mouth pain, mouth swelling, other Cardiovascular: Denies: no symptoms, chest pain, edema, irregular heart rate, lightheadedness, palpitations, syncope, other Respiratory: Denies: no symptoms, cough, orthopnea, shortness of breath, SOB with excertion, SOB at rest, sputum, stridor, wheezing, other Gastrointestinal/Abdominal: Denies: no symptoms, abdomen distended, abdominal pain, black stools, tarry stools, blood in stool, constipated, diarrhea, difficulty swallowing, nausea, poor appetite, poor fluid intake, rectal bleeding , vomiting, other Genitourinary: Denies: no symptoms, burning, discharge, frequency, flank pain, hematuria, incontinence, pain, urgency, other Neurologic/Psychiatric: Denies: no symptoms, anxiety, depressed, emotional problems, headache, numbness, paresthesia, pre-existing deficit, seizure, tingling, tremors, weakness, other Hematologic/Lymphatic: Reports: anemia Allergies: Coded Allergies: No Known Allergies (Unverified , 05/29/17) Subjective Hgb downtrended. On pain control. Edema improving. Objective Last 24 Hour Vital Signs Date Time Temp Pulse Resp B/P (MAP) Pulse Ox O2 Delivery O2 Flow Rate FiO2 06/07/17 08:37 97.9 06/07/17 08:00 98.1 83 18 116/72 100 Simple Mask 10.0 98.1 06/07/17 04:39 97.9 87 18 117/73 100 97.9 06/07/17 00:20 98.4 76 18 103/61 99 98.4 06/06/17 20:19 98.1 87 19 120/59 95 98.1 06/06/17 19:02 Simple Mask 8.0 52 06/06/17 19:02 98 Simple Mask 8.0 52 06/06/17 19:01 97.7 06/06/17 16:00 97.7 78 20 125/78 100 Simple Mask 10.0 97.7 06/06/17 12:00 97.3 79 19 124/77 100 Simple Mask 10.0 97.3 Intake and Output 06/06/17 06/07/17 20:00 08:00 Intake Total 980 ml 1080 ml Balance 980 ml 1080 ml Intake Oral 860 ml 480 ml IV Total 120 ml 600 ml # Voids 4 2 Laboratory Tests 06/07/17 04:55: Vancomycin Level Trough 12.7H Height (Feet): 5 Height (Inches): 5.00 Weight (Pounds): 140 Respiratory/Chest: decreased breath sounds Abdomen: non tender, soft Edema: mild edema Colby [place] Jun 07, 2017 11:51
[2017-06-07 12:00] VITALS: BP 105/72
--- NOTE | 2017-06-07 12:49 | General Progress Note ---
Assessment/Plan Assessment/Plan (1) Left LE Pain (2) Left ankle osteomyelitis (3) S/p BKA Patient will be continued on Dilaudid and Percocet. D/w Dr. Turner and he concurred. Subjective Date patient seen: Jun 07, 2017 Time patient seen: 11:45 - am Allergies: Coded Allergies: No Known Allergies (Unverified , 05/29/17) Subjective REVIEW OF SYSTEMS: Denies rash, fever, chills, sweating, dizziness, drowsiness, blurred vision, sore throat, or change in her weight. No shortness of breath, chest pain or cough. No nausea, vomiting, diarrhea, or blood in the stool or urine. No bowel or bladder incontinence. No dysuria. She is complaining of left lower extremity pain. SUBJECTIVE: Patient has been in bed continues to c/o severe pain however on the Dilaudid her pain has been controlled and reduced to a moderate level. Objective Last 24 Hour Vital Signs Date Time Temp Pulse Resp B/P (MAP) Pulse Ox O2 Delivery O2 Flow Rate FiO2 06/07/17 12:06 97.9 06/07/17 09:07 97.9 06/07/17 08:37 97.9 06/07/17 08:00 98.1 83 18 116/72 100 Simple Mask 10.0 98.1 06/07/17 04:39 97.9 87 18 117/73 100 97.9 06/07/17 00:20 98.4 76 18 103/61 99 98.4 06/06/17 20:19 98.1 87 19 120/59 95 98.1 06/06/17 19:02 Simple Mask 8.0 52 06/06/17 19:02 98 Simple Mask 8.0 52 06/06/17 19:01 97.7 06/06/17 16:00 97.7 78 20 125/78 100 Simple Mask 10.0 97.7 Intake and Output 06/06/17 06/07/17 19:00 07:00 Intake Total 920 ml 1140 ml Balance 920 ml 1140 ml Intake Oral 860 ml 480 ml IV Total 60 ml 660 ml # Voids 4 2 Laboratory Tests 06/07/17 04:55: Vancomycin Level Trough 12.7H Height (Feet): 5 Height (Inches): 5.00 Weight (Pounds): 140 Objective GENERAL: Alert, awake, and oriented x3. HEENT: PERRLA. NECK: Range of motion is full in all directions. No tenderness. No adenopathy. LUNGS: Decreased breath sounds bilaterally. HEART: Regular. ABDOMEN: Obese. BACK: Range of motion is decreased in flexion and extension. EXTREMITIES: Lower extremity range of motion is decreased due to the patient's condition with left [id number] amputation noted. NEURO: No changes. JOSE MANUEL ANDRADE. Jun 07, 2017 12:49
--- NOTE | 2017-06-07 13:25 | General Progress Note ---
Progress Note Progress Note Surgery: doing much better. pain improve. no n/v/f/c. tolerating diet. states she is researching prosthetics. afebrile, HD stable, labs reviewed. dressings removed and flap with good take. no signs of infection. edema improved. wound c/d/i. dressings were dry. odell in place. -can remove new dressings in 1-2 days and leave open to air -will plan to remove odell in 2-3 weeks -can start prosthetic fitting after Star Molina Jun 07, 2017 13:25
[2017-06-07 16:00] VITALS: BP 113/70
[2017-06-07] MEDS: Vancomycin 1250mg/D5W 250ml 250 ML IVPB SCH (17:54)
[2017-06-07 20:00] VITALS: BP 132/73
[2017-06-07] MEDS: Dyna-Hex 2% Top Sol 2oz TOPIC SCH (21:38)
[2017-06-08] VITALS: BP 115/77
[2017-06-08] MEDS: HYDROmorphone 1mg/ml Carpuject IVP PRN ×7 (02:13→20:59)
[2017-06-08 04:00] VITALS: BP 130/84
[2017-06-08] MEDS: Vancomycin 1250mg/D5W 250ml 250 ML IVPB SCH ×2 (05:21→18:00)
[2017-06-08 08:00] VITALS: BP 123/80
[2017-06-08] MEDS: Zinc Sulfate 220mg cap ORAL SCH (08:29)
[2017-06-08] MEDS: Tums 500mg ORAL SCH ×2 (08:29→17:51)
[2017-06-08] MEDS: Docusate 100mg cap ORAL SCH ×2 (08:29→17:52)
--- NOTE | 2017-06-08 08:45 | General Progress Note ---
Assessment/Plan Assessment/Plan (1) Left LE Pain (2) Left ankle osteomyelitis (3) S/p BKA Patient will be continued on Dilaudid and Percocet. D/w Dr. Turner and he concurred. Subjective Date patient seen: Jun 08, 2017 Time patient seen: 07:00 - am Allergies: Coded Allergies: No Known Allergies (Unverified , 05/29/17) Subjective REVIEW OF SYSTEMS: Denies rash, fever, chills, sweating, dizziness, drowsiness, blurred vision, sore throat, or change in her weight. No shortness of breath, chest pain or cough. No nausea, vomiting, diarrhea, or blood in the stool or urine. No bowel or bladder incontinence. No dysuria. She is complaining of left lower extremity pain. SUBJECTIVE: Patient reports that here pain continues to be severe however it has been reduced on the Dilaudid. She has no new complaints. Objective Last 24 Hour Vital Signs Date Time Temp Pulse Resp B/P (MAP) Pulse Ox O2 Delivery O2 Flow Rate FiO2 06/08/17 08:30 98.7 06/08/17 07:53 Simple Mask 8.0 06/08/17 07:53 98 Simple Mask 8.0 06/08/17 04:00 98.7 85 22 130/84 97 98.7 06/08/17 00:00 99.3 88 20 115/77 96 99.3 06/07/17 20:00 99 Simple Mask 10.0 06/07/17 20:00 99.0 78 19 132/73 99 99.0 06/07/17 16:32 97.9 06/07/17 16:02 97.9 06/07/17 16:00 98.2 67 20 113/70 100 Simple Mask 10.0 98.2 06/07/17 12:06 97.9 06/07/17 12:00 97.5 81 21 105/72 97 Simple Mask 10.0 97.5 06/07/17 09:38 Simple Mask 8.0 06/07/17 09:37 97 Simple Mask 8.0 Intake and Output 06/07/17 06/08/17 19:00 07:00 Intake Total 600 ml 956.667 ml Balance 600 ml 956.667 ml Intake Oral 600 ml IV Total 956.667 ml # Voids 3 2 Height (Feet): 5 Height (Inches): 5.00 Weight (Pounds): 140 Objective GENERAL: Alert, awake, and oriented x3. HEENT: PERRLA. NECK: Range of motion is full in all directions. No tenderness. No adenopathy. LUNGS: Decreased breath sounds bilaterally. HEART: Regular. ABDOMEN: Obese. BACK: Range of motion is decreased in flexion and extension. EXTREMITIES: Lower extremity range of motion is decreased due to the patient's condition with left [id number] amputation noted. NEURO: No changes. JOSE MANUEL ANDRADE Jun 08, 2017 08:44
--- NOTE | 2017-06-08 09:42 | Cardiology Report ---
APPROVED REPORT EXAM: Two-dimensional and M-mode echocardiogram with Doppler and color Doppler. INDICATION TACHYCARDIA M-Mode DIMENSIONS IVSd1.2 (0.7-1.1cm)Left Atrium (MM)3.1 (1.6-4.0cm) LVDd3.6 (3.5-5.6cm)Aortic Root3.7 (2.0-3.7cm) PWd1.9 (0.7-1.1cm)Aortic Cusp Exc.1.4 (1.5-2.0cm) IVSs2.0 cm LVDs2.5 (2.5-4.0cm) PWs1.5 cm Technically difficult study due to poor acoustical windows. Normal left ventricular chamber size, systolic function and wall motion to extent visualized. Left ventricular ejection fraction estimated to be 60-65 %. Mild left ventricular hypertrophy by 2-D. No evidence of pericardial effusion. All other cardiac chamber sizes are within normal limits. Normal pulmonic valve structure. Normal tricuspid valve structure. IVC dilated at size 2.2 without physiologic collapse. A color flow and spectral Doppler study was performed and revealed: No aortic regurgitation. Trace mitral regurgitation. Mitral diastolic velocities suggest reduced left ventricular relaxation c/w mild LV diastolic dysfunction (Grade I ). Trace tricuspid regurgitation. Tricuspid systolic velocities suggests peak right ventricular systolic pressure of 32 mmHg, consistent with mild pulmonary hypertension. No Pulmonic regurgitation present.
--- NOTE | 2017-06-08 10:33 | General Progress Note ---
Assessment/Plan Assessment/Plan 1. Osteomyelitis, status post below-knee amputation. --> The patient tolerated the procedure well and is postop day #1. --> Seen by ID Service with osteomyelitis. Continue antibiotics as needed. 2. Pain due to status post operation. --> Surgery went well and getting pain management as per Pain Management Service. --> Complained of severe pain, on Dilaudid 3. History of anxiety. 4. Hypertension. --> Monitor BP. Has been WNL. 5. Diabetes mellitus. Monitor blood sugar and goal between 80 and Subjective Date patient seen: Jun 07, 2017 Constitutional: Denies: no symptoms, chills, diaphoresis, fever, malaise, weakness, other HEENT: Denies: no symptoms, eye pain, blurred vision, tearing, double vision, ear pain, ear discharge, nose pain, nose congestion, throat pain, throat swelling, mouth pain, mouth swelling, other Cardiovascular: Denies: no symptoms, chest pain, edema, irregular heart rate, lightheadedness, palpitations, syncope, other Respiratory: Denies: no symptoms, cough, orthopnea, shortness of breath, SOB with excertion, SOB at rest, sputum, stridor, wheezing, other Gastrointestinal/Abdominal: Denies: no symptoms, abdomen distended, abdominal pain, black stools, tarry stools, blood in stool, constipated, diarrhea, difficulty swallowing, nausea, poor appetite, poor fluid intake, rectal bleeding , vomiting, other Genitourinary: Denies: no symptoms, burning, discharge, frequency, flank pain, hematuria, incontinence, pain, urgency, other Neurologic/Psychiatric: Denies: no symptoms, anxiety, depressed, emotional problems, headache, numbness, paresthesia, pre-existing deficit, seizure, tingling, tremors, weakness, other Allergies: Coded Allergies: No Known Allergies (Unverified , 05/29/17) Subjective Hgb downtrended. Ongoing pain management for severe pain. Objective Last 24 Hour Vital Signs Date Time Temp Pulse Resp B/P (MAP) Pulse Ox O2 Delivery O2 Flow Rate FiO2 06/08/17 08:30 98.7 06/08/17 07:53 Simple Mask 8.0 06/08/17 07:53 98 Simple Mask 8.0 06/08/17 04:00 98.7 85 22 130/84 97 98.7 06/08/17 00:00 99.3 88 20 115/77 96 99.3 06/07/17 20:00 99 Simple Mask 10.0 06/07/17 20:00 99.0 78 19 132/73 99 99.0 06/07/17 16:32 97.9 06/07/17 16:02 97.9 06/07/17 16:00 98.2 67 20 113/70 100 Simple Mask 10.0 98.2 06/07/17 12:06 97.9 06/07/17 12:00 97.5 81 21 105/72 97 Simple Mask 10.0 97.5 Intake and Output 06/07/17 06/08/17 19:00 07:00 Intake Total 600 ml 956.667 ml Balance 600 ml 956.667 ml Intake Oral 600 ml IV Total 956.667 ml # Voids 3 2 Height (Feet): 5 Height (Inches): 5.00 Weight (Pounds): 140 General Appearance: mild distress Respiratory/Chest: decreased breath sounds Abdomen: non tender, soft Edema: trace edema Colby Canada Jun 08, 2017 10:33
[2017-06-08 12:00] VITALS: BP 102/59
--- NOTE | 2017-06-08 12:21 | General Progress Note ---
Progress Note Progress Note Surgery: doing well. no complaints. comfortable. afebrile, HD stable, recovering wound c/d/i. -okay for d/c planning -follow up with me in 2-3 weeks for staple removal then can start prosthetic evaluation Star Molina Jun 08, 2017 12:21
--- NOTE | 2017-06-08 13:44 | General Progress Note ---
Assessment/Plan Problem List: (1) HTN (hypertension) ICD Codes: I10 - Essential (primary) hypertension SNOMED: 57493927 (2) Edema ICD Codes: R60.9 - Edema, unspecified SNOMED: 420587421, 362800783 (3) Hypoalbuminemia ICD Codes: E88.09 - Other disorders of plasma-protein metabolism, not elsewhere classified SNOMED: 177417507 (4) Anxiety ICD Codes: F41.9 - Anxiety disorder, unspecified SNOMED: 55308767 (5) Cellulitis ICD Codes: L03.90 - Cellulitis, unspecified SNOMED: 084604781 Status: unchanged Assessment/Plan ot pt diet abx pain control cbc bmp am ltach eval Subjective Constitutional: Reports: weakness Allergies: Coded Allergies: No Known Allergies (Unverified , 05/29/17) All Systems: reviewed and negative except above Subjective calm in bed s/p l bkan w l leg pain Objective Last 24 Hour Vital Signs Date Time Temp Pulse Resp B/P (MAP) Pulse Ox O2 Delivery O2 Flow Rate FiO2 06/08/17 12:09 98.6 06/08/17 12:00 98.6 73 18 102/59 100 Room Air 98.6 06/08/17 11:39 98.7 06/08/17 08:30 98.7 06/08/17 08:00 98.5 87 22 123/80 97 Simple Mask 10.0 98.5 06/08/17 07:53 Simple Mask 8.0 06/08/17 07:53 98 Simple Mask 8.0 06/08/17 04:00 98.7 85 22 130/84 97 98.7 06/08/17 00:00 99.3 88 20 115/77 96 99.3 06/07/17 20:00 99 Simple Mask 10.0 06/07/17 20:00 99.0 78 19 132/73 99 99.0 06/07/17 16:02 97.9 06/07/17 16:00 98.2 67 20 113/70 100 Simple Mask 10.0 98.2 Intake and Output 06/07/17 06/08/17 19:00 07:00 Intake Total 600 ml 956.667 ml Balance 600 ml 956.667 ml Intake Oral 600 ml IV Total 956.667 ml # Voids 3 2 Height (Feet): 5 Height (Inches): 5.00 Weight (Pounds): 140 General Appearance: alert EENT: normal ENT inspection Neck: normal alignment Cardiovascular: normal peripheral pulses, normal rate, regular rhythm Respiratory/Chest: chest wall non-tender, lungs clear, normal breath sounds Extremities: normal inspection Edema: no edema noted Arm (L), no edema noted Arm (R), no edema noted Leg (L), no edema noted Leg (R), no edema noted Pedal (L), no edema noted Pedal (R), no edema noted Generalized Neurologic: responsive, motor weakness Skin: normal pigmentation, warm/dry ANN DONALDSON Jun 08, 2017 13:44
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
[2017-06-08 16:00] VITALS: BP 118/73
[2017-06-08] MEDS: D5 1/2NS 1,000 ML IV SCH (17:51)
--- NOTE | 2017-06-08 19:45 | Consultation ---
DATE OF CONSULTATION: 06/08/2017 CONSULTING PHYSICIAN: Rosa Cheatham M.D. HISTORY: This is a 56-year-old female patient. She has cellulitis. This patient continues to have some mood lability, confusion, disorganized thought process secondary to progression of her medical illness. That is why her attending has requested daily psychiatric consultation. MENTAL STATUS EXAMINATION: This is a 56-year-old female with psychomotor agitation. Mood is irritable and agitated. Affect guarded and restricted. Thought process, disorganized and illogical. Denies any current suicidal or homicidal thoughts. Insight and judgment is poor. DIAGNOSIS: Schizoaffective bipolar type. PLAN: Treat with medication regimen consisting of Neurontin 300 mg four times a day, Zyprexa 5 milligrams at bedtime. Provide 15-20 supportive therapy. Seen and assessed at bedside. Chart reviewed and discussed with staff. The patient seen and assessed at bedside. Rosa Cheatham M.D. DR: OLEGARIO JOB#: [id number] CC:
[2017-06-08 20:00] VITALS: BP 118/77
[2017-06-08] MEDS: Dyna-Hex 2% Top Sol 2oz TOPIC SCH (20:00)
[2017-06-09] VITALS: BP 135/78
[2017-06-09] MEDS: HYDROmorphone 1mg/ml Carpuject IVP PRN ×4 (01:02→11:40)
[2017-06-09 04:00] VITALS: BP 130/77
[2017-06-09] MEDS: Vancomycin 1250mg/D5W 250ml 250 ML IVPB SCH ×2 (05:25→17:08)
[2017-06-09 08:00] VITALS: BP 124/78
[2017-06-09] MEDS: Tums 500mg ORAL SCH ×2 (08:38→17:06)
[2017-06-09] MEDS: Zinc Sulfate 220mg cap ORAL SCH (08:39)
[2017-06-09] MEDS: Docusate 100mg cap ORAL SCH ×2 (08:39→17:06)
[2017-06-09] MEDS: D5 1/2NS 1,000 ML IV SCH (08:39)
[2017-06-09 08:40] LABS: BASOPHILS % (AUTO) 1.2 % (0.0-2.0); EOSINOPHILS % (AUTO) 3.5 % (0.0-3.0); HEMATOCRIT 32.5 % (37.0-47.0); HEMOGLOBIN 10.8 G/DL (12.0-16.0); LYMPHOCYTES % (AUTO) 25.2 % (20.0-45.0); MEAN CORPUSCULAR VOLUME 94 FL (80-99); MONOCYTES % (AUTO) 8.7 % (1.0-10.0); NEUTROPHILS % (AUTO) 61.4 % (45.0-75.0); PLATELET COUNT 228 K/UL (150-450); RED BLOOD COUNT 3.46 M/UL (4.20-5.40); RED CELL DISTRIBUTION WIDTH 13.3 % (11.6-14.8); WHITE BLOOD COUNT 8.2 K/UL (4.8-10.8)
[2017-06-09 08:41] LABS: ANION GAP 4 mmol/L (5-15); BLOOD UREA NITROGEN 4 mg/dL (7-18); CALCIUM 9.1 MG/DL (8.5-10.1); CARBON DIOXIDE 34 MMOL/L (21-32); CHLORIDE 101 MMOL/L (98-107); CREATININE 0.8 MG/DL (0.55-1.30); POTASSIUM 3.6 MMOL/L (3.5-5.1); SODIUM 138 MMOL/L (136-145)
[2017-06-09 12:00] VITALS: BP 134/86
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
--- NOTE | 2017-06-09 12:11 | General Progress Note ---
Progress Note Progress Note Surgery: doing well. comfortable. pain improving. no n/v/f/c. labs reviewed. left bka dressings removed and flap evaluated. flap intact without signs of tissue loss. mild edema. some blistering around odell from edema. bruising noted. overall healing well and recovering. -okay to keep open to air -odell can be removed in 2-3 weeks then can start prosthetic measurements -okay to d/c from surgical standpoint follow up with me in 2-3 weeks. Star Molina Jun 09, 2017 12:11
--- NOTE | 2017-06-09 14:10 | General Progress Note ---
Assessment/Plan Assessment/Plan (1) Left LE Pain (2) Left ankle osteomyelitis (3) S/p BKA Patient will be continued on Dilaudid 1mg Q4H PRN severe breakthrough pain and Percocet 10mg PO 1 tab Q4H PRN severe pain and start Tramadol 50mg PO 1 tab Q6H PRN moderate pain . D/w Dr. Turner and he concurred. Subjective Date patient seen: Jun 09, 2017 Time patient seen: 01:00 - pm Allergies: Coded Allergies: No Known Allergies (Unverified , 05/29/17) Subjective REVIEW OF SYSTEMS: Denies rash, fever, chills, sweating, dizziness, drowsiness, blurred vision, sore throat, or change in her weight. No shortness of breath, chest pain or cough. No nausea, vomiting, diarrhea, or blood in the stool or urine. No bowel or bladder incontinence. No dysuria. She is complaining of left lower extremity pain. SUBJECTIVE: Patient is in bed and continues to c/o severe pain which has pradip tolerated on the Dilaudid. I advised patient to use the Percocet and Tramadol for her pain. She under stands. Objective Last 24 Hour Vital Signs Date Time Temp Pulse Resp B/P (MAP) Pulse Ox O2 Delivery O2 Flow Rate FiO2 06/09/17 12:10 98.6 06/09/17 12:00 98.9 94 18 134/86 95 Room Air 98.9 06/09/17 11:40 98.6 06/09/17 08:38 98.6 06/09/17 08:00 99.9 102 20 124/78 93 99.9 06/09/17 04:00 98.6 79 20 130/77 96 98.6 06/09/17 00:00 98.3 88 18 135/78 91 98.3 06/08/17 20:00 98.6 78 22 118/77 94 98.6 06/08/17 18:33 97 Simple Mask 8.0 06/08/17 18:33 Simple Mask 8.0 06/08/17 17:52 98.2 06/08/17 16:00 98.2 71 18 118/73 100 98.2 06/08/17 14:45 98.6 Intake and Output 06/08/17 06/09/17 19:00 07:00 Intake Total 2290.000 ml 1390.000 ml Output Total 1800 ml Balance 490.000 ml 1390.000 ml Intake Oral 1440 ml 600 ml IV Total 850.000 ml 790.000 ml Output Urine Total 1800 ml # Voids 2 5 Laboratory Tests 06/09/17 07:00: White Blood Count 8.2, Red Blood Count 3.46L, Hemoglobin 10.8L, Hematocrit 32.5L , Mean Corpuscular Volume 94, Mean Corpuscular Hemoglobin 31.2H, Mean Corpuscular Hemoglobin Concent 33.2, Red Cell Distribution Width 13.3, Platelet Count 228, Mean Platelet Volume 6.8, Neutrophils (%) (Auto) 61.4, Lymphocytes (% ) (Auto) 25.2, Monocytes (%) (Auto) 8.7, Eosinophils (%) (Auto) 3.5H, Basophils (%) (Auto) 1.2, Sodium Level 138, Potassium Level 3.6, Chloride Level 101, Carbon Dioxide Level 34H, Anion Gap 4L, Blood Urea Nitrogen 4L, Creatinine 0.8, Estimat Glomerular Filtration Rate > 60, Glucose Level 127H, Calcium Level 9.1 Height (Feet): 5 Height (Inches): 5.00 Weight (Pounds): 140 Objective GENERAL: Alert, awake, and oriented x3. HEENT: PERRLA. NECK: Range of motion is full in all directions. No tenderness. No adenopathy. LUNGS: Decreased breath sounds bilaterally. HEART: Regular. ABDOMEN: Obese. BACK: Range of motion is decreased in flexion and extension. EXTREMITIES: Lower extremity range of motion is decreased due to the patient's condition with left [id number] amputation noted. NEURO: No changes. JOSE MANUEL ANDRADE Jun 09, 2017 14:10
[2017-06-09] MEDS ORDERED: traMADol 50mg tab ORAL PRN ×2 (14:15)
--- NOTE | 2017-06-09 14:47 | General Progress Note ---
Assessment/Plan Problem List: (1) HTN (hypertension) ICD Codes: I10 - Essential (primary) hypertension SNOMED: 41954912 (2) Edema ICD Codes: R60.9 - Edema, unspecified SNOMED: 843665645, 706667168 (3) Hypoalbuminemia ICD Codes: E88.09 - Other disorders of plasma-protein metabolism, not elsewhere classified SNOMED: 691068631 (4) Anxiety ICD Codes: F41.9 - Anxiety disorder, unspecified SNOMED: 05344820 (5) Cellulitis ICD Codes: L03.90 - Cellulitis, unspecified SNOMED: 623880703 Status: unchanged Assessment/Plan ot pt diet abx pain control cbc bmp am ltach eval Subjective Constitutional: Reports: weakness Allergies: Coded Allergies: No Known Allergies (Unverified , 05/29/17) All Systems: reviewed and negative except above Subjective calm in bed s/p l bka w l leg pain Objective Last 24 Hour Vital Signs Date Time Temp Pulse Resp B/P (MAP) Pulse Ox O2 Delivery O2 Flow Rate FiO2 06/09/17 14:39 98.6 06/09/17 12:10 98.6 06/09/17 12:00 98.9 94 18 134/86 95 Room Air 98.9 06/09/17 11:40 98.6 06/09/17 08:38 98.6 06/09/17 08:00 99.9 102 20 124/78 93 99.9 06/09/17 04:00 98.6 79 20 130/77 96 98.6 06/09/17 00:00 98.3 88 18 135/78 91 98.3 06/08/17 20:00 98.6 78 22 118/77 94 98.6 06/08/17 18:33 97 Simple Mask 8.0 06/08/17 18:33 Simple Mask 8.0 06/08/17 17:52 98.2 06/08/17 16:00 98.2 71 18 118/73 100 98.2 Intake and Output 06/08/17 06/09/17 19:00 07:00 Intake Total 2290.000 ml 1390.000 ml Output Total 1800 ml Balance 490.000 ml 1390.000 ml Intake Oral 1440 ml 600 ml IV Total 850.000 ml 790.000 ml Output Urine Total 1800 ml # Voids 2 5 Laboratory Tests 06/09/17 07:00: White Blood Count 8.2, Red Blood Count 3.46L, Hemoglobin 10.8L, Hematocrit 32.5L , Mean Corpuscular Volume 94, Mean Corpuscular Hemoglobin 31.2H, Mean Corpuscular Hemoglobin Concent 33.2, Red Cell Distribution Width 13.3, Platelet Count 228, Mean Platelet Volume 6.8, Neutrophils (%) (Auto) 61.4, Lymphocytes (% ) (Auto) 25.2, Monocytes (%) (Auto) 8.7, Eosinophils (%) (Auto) 3.5H, Basophils (%) (Auto) 1.2, Sodium Level 138, Potassium Level 3.6, Chloride Level 101, Carbon Dioxide Level 34H, Anion Gap 4L, Blood Urea Nitrogen 4L, Creatinine 0.8, Estimat Glomerular Filtration Rate > 60, Glucose Level 127H, Calcium Level 9.1 Height (Feet): 5 Height (Inches): 5.00 Weight (Pounds): 140 General Appearance: alert EENT: normal ENT inspection Neck: normal alignment Cardiovascular: normal peripheral pulses, normal rate, regular rhythm Respiratory/Chest: chest wall non-tender, lungs clear, normal breath sounds Abdomen: normal bowel sounds, non tender, soft Extremities: normal inspection Edema: no edema noted Arm (L), no edema noted Arm (R), no edema noted Leg (L), no edema noted Leg (R), no edema noted Pedal (L), no edema noted Pedal (R), no edema noted Generalized Neurologic: responsive, motor weakness Skin: normal pigmentation, warm/dry ANN DONALDSON Jun 09, 2017 14:47
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
[2017-06-09 16:00] VITALS: BP 117/87
--- NOTE | 2017-06-09 16:00 | Progress Note ---
DATE: 06/09/2017 SUBJECTIVE: The patient is a 56-year-old female patient with cellulitis. This patient continues to have some mood lability, confusion, and disorganized thought process secondary to the progression of her medical illness. That is why her attending physician has requested daily psychiatric consultation. She has cellulitis . She also has a diagnosis of schizoaffective, bipolar type. MENTAL STATUS EXAMINATION: The patient is a 56-year-old female with psychomotor retardation. Mood is depressed. Affect is guarded and restricted. Thought process, disorganized and illogical. Denies any current suicidal or homicidal thoughts. Insight and judgment is poor. DIAGNOSIS: Schizoaffective, bipolar type. PLAN: Continue treatment with Zyprexa to stabilize her mood. Provide with 15 to 20 minutes supportive therapy. Encourage her to interact appropriately with staff. Chart reviewed and discussed with staff. . Seen and assessed at bedside. Rosa Cheatham M.D. DR: GENE JOB#: [id number] CC:
[2017-06-09] MEDS ORDERED: oxyCODONE HCL/Acetaminophen 5/325mg ORAL PRN (17:00)
[2017-06-09] MEDS: HYDROmorphone 1mg/ml Carpuject SUBQ PRN (18:13)
[2017-06-09 20:00] VITALS: BP 118/82
[2017-06-09] MEDS: Dyna-Hex 2% Top Sol 2oz TOPIC SCH (20:00)
[2017-06-10] VITALS: BP 114/78
[2017-06-10] MEDS: D5 1/2NS 1,000 ML IV SCH (02:40)
[2017-06-10 04:00] VITALS: BP 105/65
[2017-06-10] MEDS: Vancomycin 1250mg/D5W 250ml 250 ML IVPB SCH (05:27)
[2017-06-10 07:00] LABS: BASOPHILS % (AUTO) 0.9 % (0.0-2.0); HEMATOCRIT 30.1 % (37.0-47.0); LYMPHOCYTES % (AUTO) 26.6 % (20.0-45.0); MEAN CORPUSCULAR VOLUME 93 FL (80-99); MONOCYTES % (AUTO) 8.1 % (1.0-10.0); NEUTROPHILS % (AUTO) 59.4 % (45.0-75.0); PLATELET COUNT 244 K/UL (150-450); RED BLOOD COUNT 3.22 M/UL (4.20-5.40); RED CELL DISTRIBUTION WIDTH 13.6 % (11.6-14.8); WHITE BLOOD COUNT 9.1 K/UL (4.8-10.8)
[2017-06-10 07:05] LABS: ANION GAP 5 mmol/L (5-15); BLOOD UREA NITROGEN 9 mg/dL (7-18); CALCIUM 9.3 MG/DL (8.5-10.1); CARBON DIOXIDE 33 MMOL/L (21-32); CHLORIDE 99 MMOL/L (98-107); CREATININE 0.9 MG/DL (0.55-1.30); POTASSIUM 3.2 MMOL/L (3.5-5.1); SODIUM 137 MMOL/L (136-145)
[2017-06-10 08:00] VITALS: BP 125/56
--- NOTE | 2017-06-10 08:48 | General Progress Note ---
Assessment/Plan Assessment/Plan (1) Left LE Pain (2) Left ankle osteomyelitis (3) S/p BKA Patient will be continued on Dilaudid, Percocet and Tramadol. D/w Dr. Turner and he concurred. Subjective Date patient seen: Jun 10, 2017 Time patient seen: 07:00 - am Allergies: Coded Allergies: No Known Allergies (Unverified , 05/29/17) Subjective REVIEW OF SYSTEMS: Denies rash, fever, chills, sweating, dizziness, drowsiness, blurred vision, sore throat, or change in her weight. No shortness of breath, chest pain or cough. No nausea, vomiting, diarrhea, or blood in the stool or urine. No bowel or bladder incontinence. No dysuria. She is complaining of left lower extremity pain. SUBJECTIVE: Patient reports that the pain has been tolerated on the Percocet and has no new complaints. Objective Last 24 Hour Vital Signs Date Time Temp Pulse Resp B/P (MAP) Pulse Ox O2 Delivery O2 Flow Rate FiO2 06/10/17 04:00 98.1 91 20 105/65 92 98.1 06/10/17 00:00 97.6 90 20 114/78 95 97.6 06/09/17 20:00 97.9 79 20 118/82 92 97.9 06/09/17 18:43 99.3 06/09/17 18:13 99.3 06/09/17 16:00 99.3 89 22 117/87 95 Simple Mask 10.0 99.3 06/09/17 15:38 98.6 06/09/17 14:39 98.6 06/09/17 12:10 98.6 06/09/17 12:00 98.9 94 18 134/86 95 Room Air 98.9 06/09/17 11:40 98.6 Intake and Output 06/09/17 06/10/17 19:00 07:00 Intake Total 1080 ml 730 ml Balance 1080 ml 730 ml Intake Oral 480 ml IV Total 600 ml 730 ml # Voids 4 2 Laboratory Tests 06/10/17 05:20: White Blood Count 9.1, Red Blood Count 3.22L, Hemoglobin 10.0L, Hematocrit 30.1L , Mean Corpuscular Volume 93, Mean Corpuscular Hemoglobin 30.9, Mean Corpuscular Hemoglobin Concent 33.1, Red Cell Distribution Width 13.6, Platelet Count 244, Mean Platelet Volume 7.2, Neutrophils (%) (Auto) 59.4, Lymphocytes (% ) (Auto) 26.6, Monocytes (%) (Auto) 8.1, Eosinophils (%) (Auto) 5.0H, Basophils (%) (Auto) 0.9, Sodium Level 137, Potassium Level 3.2L, Chloride Level 99, Carbon Dioxide Level 33H, Anion Gap 5, Blood Urea Nitrogen 9, Creatinine 0.9, Estimat Glomerular Filtration Rate > 60, Glucose Level 156H, Calcium Level 9.3 Height (Feet): 5 Height (Inches): 5.00 Weight (Pounds): 140 Objective GENERAL: Alert, awake, and oriented x3. HEENT: PERRLA. NECK: Range of motion is full in all directions. No tenderness. No adenopathy. LUNGS: Decreased breath sounds bilaterally. HEART: Regular. ABDOMEN: Obese. BACK: Range of motion is decreased in flexion and extension. EXTREMITIES: Lower extremity range of motion is decreased due to the patient's condition with left [id number] amputation noted. NEURO: No changes. JOSE MANUEL ANDRADE Jun 10, 2017 08:48
--- NOTE | 2017-06-10 09:41 | General Progress Note ---
Assessment/Plan Assessment/Plan 1. Osteomyelitis, status post below-knee amputation. --> The patient tolerated the procedure well and is postop day #1. --> Seen by ID Service with osteomyelitis. Continue antibiotics as needed. --> Improved 2. Pain due to status post operation. --> Surgery went well and getting pain management as per Pain Management Service. --> On Dilaudid, pain control 3. History of anxiety. 4. Hypertension. --> Monitor BP. Has been WNL. 5. Diabetes mellitus. Monitor blood sugar Subjective Date patient seen: Jun 09, 2017 Constitutional: Denies: no symptoms, chills, diaphoresis, fever, malaise, weakness, other HEENT: Denies: no symptoms, eye pain, blurred vision, tearing, double vision, ear pain, ear discharge, nose pain, nose congestion, throat pain, throat swelling, mouth pain, mouth swelling, other Cardiovascular: Denies: no symptoms, chest pain, edema, irregular heart rate, lightheadedness, palpitations, syncope, other Respiratory: Denies: no symptoms, cough, orthopnea, shortness of breath, SOB with excertion, SOB at rest, sputum, stridor, wheezing, other Gastrointestinal/Abdominal: Denies: no symptoms, abdomen distended, abdominal pain, black stools, tarry stools, blood in stool, constipated, diarrhea, difficulty swallowing, nausea, poor appetite, poor fluid intake, rectal bleeding , vomiting, other Genitourinary: Denies: no symptoms, burning, discharge, frequency, flank pain, hematuria, incontinence, pain, urgency, other Hematologic/Lymphatic: Reports: anemia Allergies: Coded Allergies: No Known Allergies (Unverified , 05/29/17) Subjective On pain management. No fever or chills. Objective Last 24 Hour Vital Signs Date Time Temp Pulse Resp B/P (MAP) Pulse Ox O2 Delivery O2 Flow Rate FiO2 06/10/17 07:45 Simple Mask 8.0 06/10/17 07:45 97 Simple Mask 8.0 06/10/17 04:00 98.1 91 20 105/65 92 98.1 06/10/17 00:00 97.6 90 20 114/78 95 97.6 06/09/17 20:00 97.9 79 20 118/82 92 97.9 3/13/18 18:43 99.3 06/09/17 18:13 99.3 06/09/17 16:00 99.3 89 22 117/87 95 Simple Mask 10.0 99.3 06/09/17 15:38 98.6 06/09/17 14:39 98.6 06/09/17 12:10 98.6 06/09/17 12:00 98.9 94 18 134/86 95 Room Air 98.9 06/09/17 11:40 98.6 Intake and Output 06/09/17 06/10/17 19:00 07:00 Intake Total 1080 ml 730 ml Balance 1080 ml 730 ml Intake Oral 480 ml IV Total 600 ml 730 ml # Voids 4 2 Laboratory Tests 06/10/17 05:20: White Blood Count 9.1, Red Blood Count 3.22L, Hemoglobin 10.0L, Hematocrit 30.1L , Mean Corpuscular Volume 93, Mean Corpuscular Hemoglobin 30.9, Mean Corpuscular Hemoglobin Concent 33.1, Red Cell Distribution Width 13.6, Platelet Count 244, Mean Platelet Volume 7.2, Neutrophils (%) (Auto) 59.4, Lymphocytes (% ) (Auto) 26.6, Monocytes (%) (Auto) 8.1, Eosinophils (%) (Auto) 5.0H, Basophils (%) (Auto) 0.9, Sodium Level 137, Potassium Level 3.2L, Chloride Level 99, Carbon Dioxide Level 33H, Anion Gap 5, Blood Urea Nitrogen 9, Creatinine 0.9, Estimat Glomerular Filtration Rate > 60, Glucose Level 156H, Calcium Level 9.3 Height (Feet): 5 Height (Inches): 5.00 Weight (Pounds): 140 General Appearance: confused Respiratory/Chest: decreased breath sounds Abdomen: soft Colby Canada Jun 10, 2017 09:41
[2017-06-10] MEDS: Tums 500mg ORAL SCH (09:43)
[2017-06-10] MEDS: Zinc Sulfate 220mg cap ORAL SCH (09:43)
[2017-06-10] MEDS: Docusate 100mg cap ORAL SCH (09:44)
[2017-06-10] MEDS ORDERED: NS 275ml ONE (11:22)
[2017-06-10] MEDS ORDERED: D5 1/2NS 1000ml IV ONE ×2 (11:22→14:21)
[2017-06-10] MEDS ORDERED: Tubing IV Secondary IV ONE ×2 (11:22→14:21)
[2017-06-10 12:00] VITALS: BP 108/71
[2017-06-10] MEDS: HYDROmorphone 1mg/ml Carpuject SUBQ PRN (13:03)
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
--- NOTE | 2017-06-10 14:15 | General Progress Note ---
Assessment/Plan Problem List: (1) HTN (hypertension) ICD Codes: I10 - Essential (primary) hypertension SNOMED: 75900958 (2) Edema ICD Codes: R60.9 - Edema, unspecified SNOMED: 284581154, 442633669 (3) Hypoalbuminemia ICD Codes: E88.09 - Other disorders of plasma-protein metabolism, not elsewhere classified SNOMED: 364470423 (4) Anxiety ICD Codes: F41.9 - Anxiety disorder, unspecified SNOMED: 53464166 (5) Cellulitis ICD Codes: L03.90 - Cellulitis, unspecified SNOMED: 367924778 Status: unchanged Assessment/Plan ot pt diet abx pain control dc to [facility] Subjective Allergies: Coded Allergies: No Known Allergies (Unverified , 05/29/17) All Systems: reviewed and negative except above Subjective calm in bed s/p l bka w l leg pain Objective Last 24 Hour Vital Signs Date Time Temp Pulse Resp B/P (MAP) Pulse Ox O2 Delivery O2 Flow Rate FiO2 06/10/17 13:03 97.6 06/10/17 12:00 97.6 67 20 108/71 100 Room Air 97.6 06/10/17 08:00 97.6 81 17 125/56 100 Room Air 97.6 06/10/17 07:45 Simple Mask 8.0 06/10/17 07:45 97 Simple Mask 8.0 06/10/17 04:00 98.1 91 20 105/65 92 98.1 06/10/17 00:00 97.6 90 20 114/78 95 97.6 06/09/17 20:00 97.9 79 20 118/82 92 97.9 06/09/17 18:43 99.3 06/09/17 18:13 99.3 06/09/17 16:00 99.3 89 22 117/87 95 Simple Mask 10.0 99.3 06/09/17 15:38 98.6 06/09/17 14:39 98.6 Intake and Output 06/09/17 06/10/17 19:00 07:00 Intake Total 1080 ml 730 ml Balance 1080 ml 730 ml Intake Oral 480 ml IV Total 600 ml 730 ml # Voids 4 2 Laboratory Tests 06/10/17 05:20: White Blood Count 9.1, Red Blood Count 3.22L, Hemoglobin 10.0L, Hematocrit 30.1L , Mean Corpuscular Volume 93, Mean Corpuscular Hemoglobin 30.9, Mean Corpuscular Hemoglobin Concent 33.1, Red Cell Distribution Width 13.6, Platelet Count 244, Mean Platelet Volume 7.2, Neutrophils (%) (Auto) 59.4, Lymphocytes (% ) (Auto) 26.6, Monocytes (%) (Auto) 8.1, Eosinophils (%) (Auto) 5.0H, Basophils (%) (Auto) 0.9, Sodium Level 137, Potassium Level 3.2L, Chloride Level 99, Carbon Dioxide Level 33H, Anion Gap 5, Blood Urea Nitrogen 9, Creatinine 0.9, Estimat Glomerular Filtration Rate > 60, Glucose Level 156H, Calcium Level 9.3 Height (Feet): 5 Height (Inches): 5.00 Weight (Pounds): 140 General Appearance: alert EENT: normal ENT inspection Neck: normal alignment Cardiovascular: normal peripheral pulses, normal rate, regular rhythm Respiratory/Chest: chest wall non-tender, lungs clear, normal breath sounds Abdomen: normal bowel sounds, non tender, soft Extremities: normal inspection Edema: 1+ Arm (L), 1+ Arm (R), 1+ Leg (L), 1+ Leg (R), 1+ Pedal (L), 1+ Pedal ( R), 1+ Generalized Edema: trace edema Neurologic: responsive, motor weakness Skin: normal pigmentation, warm/dry ANN DONALDSON Jun 10, 2017 14:15
--- NOTE | 2017-06-10 14:38 | General Progress Note ---
Progress Note Progress Note Surgery: doing well. comfortable. ready for d/c afebrile, HD stable, labs okay wound c/d/i. mild blisters around odell from some edema but flap taken well. edema and bruising improved. -okay to d/c from surgical standpoint -follow up in 2-3 weeks for staple removal. office info give to patient. -keep leg elevated. okay to keep wound open to air. Star Molina Jun 10, 2017 14:37
[2017-06-10] MEDS ORDERED: BACTRIM DS TAB1 EAC1 ORAL (15:11)
[2017-06-10 16:00] VITALS: BP 140/95
--- NOTE | 2017-06-10 16:53 | Cardiology Report ---
APPROVED REPORT EKG Measurement Heart [id number] [place] [id number] Normal sinus rhythm Normal ECG
--- NOTE | 2017-06-10 17:15 | Progress Note ---
DATE: 06/10/2017 SUBJECTIVE: The patient is a 56-year-old female patient with cellulitis. She continues to be very confused and disorganized, has cellulitis. She has got no logical plan for own self-care. She has feelings of helplessness and hopelessness. Low energy, poor appetite, and lost of interest in activity. No suicidal or homicidal ideations. Insight and judgment poor. She has racing thoughts and pressured speech. MENTAL STATUS EXAMINATION: She is a 56-year-old female with psychomotor agitation. Mood is irritable and agitated. Affect guarded and restricted. Intellect is poor. Mood is depressed and anxious. Motor activity, psychomotor agitation. Attention span is poor. Orientation x2. Speech is pressured. Thought process, disorganized and illogical. Denies any current suicidal or homicidal thoughts. Insight and judgment is poor. PLAN: Continue to stabilize her mood with Zyprexa. Her attending physician has requested daily psychiatric consultation to prevent any worsening of her mood lability. She will continue to be followed by Psychiatry throughout hospital course. Continue Zyprexa. 15 to 20 minutes of supportive therapy provided. Chart was reviewed and discussed with staff. Seen and assessed in her room. Rosa Cheatham M.D. DR: GENE JOB#: [id number] CC:
[2017-06-10] MEDS ORDERED: Bactrim-DS 1 tab ORAL SCH (18:00)
--- NOTE | 2017-06-11 10:21 | General Progress Note ---
Assessment/Plan Assessment/Plan 1. Osteomyelitis, status post below-knee amputation. --> The patient tolerated the procedure well and is postop day #1. --> Seen by ID Service with osteomyelitis. Continue antibiotics as needed. --> Improved and pt feeling better. 2. Pain due to status post operation. --> Surgery went well and getting pain management as per Pain Management Service. --> On Dilaudid, pain control 3. History of anxiety. 4. Hypertension. --> Monitor BP. Has been WNL. 5. Diabetes mellitus. Monitor blood sugar Subjective Date patient seen: Jun 10, 2017 Constitutional: Denies: no symptoms, chills, diaphoresis, fever, malaise, weakness, other HEENT: Denies: no symptoms, eye pain, blurred vision, tearing, double vision, ear pain, ear discharge, nose pain, nose congestion, throat pain, throat swelling, mouth pain, mouth swelling, other Cardiovascular: Denies: no symptoms, chest pain, edema, irregular heart rate, lightheadedness, palpitations, syncope, other Respiratory: Denies: no symptoms, cough, orthopnea, shortness of breath, SOB with excertion, SOB at rest, sputum, stridor, wheezing, other Gastrointestinal/Abdominal: Denies: no symptoms, abdomen distended, abdominal pain, black stools, tarry stools, blood in stool, constipated, diarrhea, difficulty swallowing, nausea, poor appetite, poor fluid intake, rectal bleeding , vomiting, other Genitourinary: Denies: no symptoms, burning, discharge, frequency, flank pain, hematuria, incontinence, pain, urgency, other Allergies: Coded Allergies: No Known Allergies (Unverified , 05/29/17) Subjective On pain management. No fever or chills. Pending discharge. Objective Last 24 Hour Vital Signs Date Time Temp Pulse Resp B/P (MAP) Pulse Ox O2 Delivery O2 Flow Rate FiO2 06/10/17 16:00 97.8 99 20 140/95 96 Room Air 97.8 06/10/17 13:03 97.6 06/10/17 12:00 97.6 67 20 108/71 100 Room Air 97.6 Intake and Output 06/10/17 06/11/17 19:00 07:00 Intake Total 840 ml Output Total 240 ml Balance 600 ml Intake Oral 840 ml Output Urine Total 240 ml # Voids 3 # Bowel Movements 1 Height (Feet): 5 Height (Inches): 5.00 Weight (Pounds): 140 General Appearance: no apparent distress Respiratory/Chest: lungs clear Abdomen: soft Colby Canada Jun 11, 2017 10:21
--- NOTE | 2017-06-12 16:46 | Discharge Summary ---
Discharge Summary Hospital Course Date of Admission May 29, 2017 at 17:16 Date of Discharge Jun 10, 2017 at 17:35 Admitting Diagnosis cellulitis HPI Bridget Cole is a 57 year old female who was admitted on May 29, 2017 at 17:16 for Cellulitis Hospital Course [id number] Discharge Discharge Disposition Patient was discharged to acute rehab Discharge Diagnoses: Kimberly Treadwell NP Jun 12, 2017 16:46
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
== END 2017-06-10 17:35 | disposition short-term general hospital (02) | DRG 617 ==
LOC: EDBD 14:58 → EMR 17:12 → 4E 17:16 → EDBEDREQ 18:53
PROC: 02HV33Z Insertion of Infusion Device into Superior Vena Cava, Percutaneous Approach (ICD-10-PCS; principal; 2017-05-29)
PROC: B518ZZA Fluoroscopy of Superior Vena Cava, Guidance (ICD-10-PCS; principal; 2017-05-29)
PROC: 0Y6J0Z2 Detachment at Left Lower Leg, Mid, Open Approach (ICD-10-PCS; 2017-06-03)
DX: E11.69 Type 2 diabetes mellitus with other specified complication (principal); M86.172 Other acute osteomyelitis, left ankle and foot; F25.0 Schizoaffective disorder, bipolar type; E88.09 Other disorders of plasma-protein metabolism, not elsewhere classified; I10 Essential (primary) hypertension; L03.116 Cellulitis of left lower limb; L97.424 Non-pressure chronic ulcer of left heel and midfoot with necrosis of bone; F31.81 Bipolar II disorder; E11.621 Type 2 diabetes mellitus with foot ulcer; B95.62 Methicillin resistant Staphylococcus aureus infection as the cause of diseases classified elsewhere; R50.82 Postprocedural fever; F41.9 Anxiety disorder, unspecified; R00.0 Tachycardia, unspecified; Z99.3 Dependence on wheelchair
CPT/HCPCS: 36415; 36569; 36600; 71045; 76937; 80048; 80053; 80202; 81003; 82803; 82962; 84439; 84443; 85025; 85610; 85651; 85730; 86140; 87040; 87070; 87081; 87181; 87205; 93005; 93306; 94003; 94150; 94760; 97803; 99285; J2250; J2405; J2765

== ENCOUNTER 2017-06-10 21:16 | Inpatient (IN) | payer MEDICARE, MEDICAID ==
[~2017-06-10] VITALS: Ht 162.6 cm; Wt 97.5 kg
[~2017-06-10 21:16] MED LIST: ASPIRIN325 MG ORAL; BACLOFEN10 MG ORAL; BACTRIM DS TAB1 EAC1 ORAL; BENADRYL25 MG ORAL; CALCIUM + VITA1 EAC1 PO; DOCUSATE SODIU100 MG ORAL; KLONOPIN1 MG ORAL; LEVOFLOXACIN750 MG ORAL; OXYCODONE HCL5 M2 ORAL; TRAMADOL HCL50 MG ORAL; ZINC SULFATE220 M1 ORAL
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
[2017-06-10 22:25] VITALS: BP 130/70
[2017-06-10 23:00] VITALS: BP 106/59
[2017-06-11] VITALS (7 sets, daily range): BP systolic 109–129; BP diastolic 56–73
[2017-06-11] MEDS ORDERED: traMADol 50mg tab ORAL PRN (02:15)
[2017-06-11] MEDS ORDERED: HYDROmorphone 1mg/ml Carpuject SUBQ PRN (02:15)
[2017-06-11] MEDS: D5 1/2NS 1,000 ML IV SCH ×2 (03:03→18:55)
[2017-06-11 06:54] LABS: BASOPHILS % (AUTO) 0.9 % (0.0-2.0); EOSINOPHILS % (AUTO) 4.5 % (0.0-3.0); HEMATOCRIT 30.3 % (37.0-47.0); HEMOGLOBIN 10.1 G/DL (12.0-16.0); LYMPHOCYTES % (AUTO) 26.6 % (20.0-45.0); MEAN CORPUSCULAR VOLUME 94 FL (80-99); MONOCYTES % (AUTO) 6.6 % (1.0-10.0); NEUTROPHILS % (AUTO) 61.5 % (45.0-75.0); PLATELET COUNT 264 K/UL (150-450); RED BLOOD COUNT 3.24 M/UL (4.20-5.40); WHITE BLOOD COUNT 8.3 K/UL (4.8-10.8)
[2017-06-11 07:24] LABS: ANION GAP 8 mmol/L (5-15); BLOOD UREA NITROGEN 10 mg/dL (7-18); CALCIUM 8.9 MG/DL (8.5-10.1); CARBON DIOXIDE 30 MMOL/L (21-32); CHLORIDE 103 MMOL/L (98-107); CREATININE 0.8 MG/DL (0.55-1.30); POTASSIUM 3.4 MMOL/L (3.5-5.1); SODIUM 141 MMOL/L (136-145)
[2017-06-11] MEDS: Bactrim-DS 1 tab ORAL SCH ×2 (08:16→19:02)
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
--- NOTE | 2017-06-11 22:30 | History and Physical Report ---
DATE OF ADMISSION: 06/10/2017 APPROXIMATE TIME: 2 p.m. CONSULTANTS: 1. Sarthak Sutherland M.D. 2. Toñito Russ D.P.M. 3. Rosa Cheatham M.D. 4. Star Molina M.D. CHIEF COMPLAINT: Left foot cellulitis status post BKA. BRIEF HISTORY: The patient is a 56-year-old female from [facility] was hospitalized at [place] for about a week for above-mentioned diagnosis, initially with left toe cellulitis, sustained a left BKA. The patient yesterday was supposed to go [facility], when she got there, they told her that she cannot smoke; therefore, she was transferred back to [place] ER and admitted. Slightly anxious in bed, no complaint otherwise. REVIEW OF SYSTEMS: No chest pain. No shortness of breath. No nausea, vomiting, or diarrhea. PAST MEDICAL HISTORY: Left toe cellulitis status post BKA, hypertension, UTI, anxiety, hypoalbuminemia, obesity. PAST SURGICAL HISTORY: Left foot, back, and appendectomy. MEDICATIONS: Include Lotrimin, Klonopin, Neurontin, Bactrim, Percocet, Ultram, Dilaudid, . ALLERGIES: Denies. SOCIAL HISTORY: Positive smoking. No alcohol. No intravenous drug abuse. FAMILY HISTORY: Noncontributory. PHYSICAL EXAMINATION: GENERAL: Slightly anxious in bed, oriented x2, in no acute distress. VITAL SIGNS: Temperature is 98, pulse 78, respiratory rate 21, blood pressure 129/60. CARDIOVASCULAR: No murmur. LUNGS: Distant and clear. ABDOMEN: Bowel sounds positive. Nontender and nondistended. EXTREMITIES: No cyanosis, clubbing, or edema. Foot dressing clean and dry. NEUROLOGIC: The patient moves all extremities, but slightly weak. LABORATORY AND DIAGNOSTIC DATA: Hemoglobin 10.1, otherwise CBC is normal. BMP show potassium 3.4, glucose 108, otherwise BMP is normal. ASSESSMENT: 1. Left foot cellulitis/post BKA. 2. UTI. 3. Obesity. 4. Back pain. 5. Anxiety. 6. Anemia. PLAN: 1. Continue premedications. 2. Wound care. 3. Antibiotics per Infectious Disease. 4. Pain control. 5. Dietary followup. 6. Discharge to SNF if cleared by Surgery and ID. 7. We will continue to follow the patient medically. 8. CBC and BMP morning. Choco Stubbs D.O. DR: My JOB#: [id number] CC:
[2017-06-12] VITALS: BP 108/58
--- NOTE | 2017-06-12 01:15 | Progress Note ---
DATE: 06/11/2017 This a followup psychiatric progress note. SUBJECTIVE: This is a 56-year-old female patient with leg infection. She continues to have some mood lability, confusion, intermittent bouts of agitation and anxiety. Mood lability has worsened secondary to stress of her medical illness. MENTAL STATUS EXAMINATION: The patient is a 56-year-old female with psychomotor agitation. Mood is irritable and agitated. Affect labile. Intellect poor. Mood depressed and anxious. Motor activity, psychomotor agitation. Attention span is poor. Orientation x2. Speech is pressured. Thought process disorganised and illogical. Thought content, she also has slight paranoid delusions. Insight and judgment are poor. DIAGNOSIS: Schizoaffective, bipolar type. PLAN: Plan for this patient is to continue treatment with Zyprexa 5 mg twice a day. Provide 20 minutes of supportive therapy and encourage her to interact appropriately with staff and other patients. Chart reviewed and discussed with staff. consultation. The patient seen and assessed at bedside. Rosa Cheatham M.D. DR: Jae JOB#: [id number] CC:
[2017-06-12 04:00] VITALS: BP 113/55
[2017-06-12 06:35] LABS: ANION GAP 6 mmol/L (5-15); BLOOD UREA NITROGEN 11 mg/dL (7-18); CALCIUM 8.9 MG/DL (8.5-10.1); CARBON DIOXIDE 30 MMOL/L (21-32); CHLORIDE 104 MMOL/L (98-107); CREATININE 0.9 MG/DL (0.55-1.30); POTASSIUM 3.5 MMOL/L (3.5-5.1); SODIUM 140 MMOL/L (136-145)
[2017-06-12 06:45] LABS: BASOPHILS % (AUTO) 1.1 % (0.0-2.0); EOSINOPHILS % (AUTO) 8.2 % (0.0-3.0); HEMATOCRIT 29.6 % (37.0-47.0); HEMOGLOBIN 9.9 G/DL (12.0-16.0); LYMPHOCYTES % (AUTO) 34.3 % (20.0-45.0); MEAN CORPUSCULAR VOLUME 93 FL (80-99); MONOCYTES % (AUTO) 7.8 % (1.0-10.0); NEUTROPHILS % (AUTO) 48.6 % (45.0-75.0); PLATELET COUNT 284 K/UL (150-450); RED BLOOD COUNT 3.18 M/UL (4.20-5.40); RED CELL DISTRIBUTION WIDTH 13.3 % (11.6-14.8); WHITE BLOOD COUNT 6.7 K/UL (4.8-10.8)
[2017-06-12 08:00] VITALS: BP 119/83
[2017-06-12] MEDS: Bactrim-DS 1 tab ORAL SCH ×2 (09:27→17:02)
[2017-06-12 12:00] VITALS: BP 150/87
[2017-06-12] MEDS: D5 1/2NS 1,000 ML IV SCH (12:13)
--- NOTE | 2017-06-12 13:28 | General Progress Note ---
Assessment/Plan Problem List: (1) Anxiety ICD Codes: F41.9 - Anxiety disorder, unspecified SNOMED: 60100990 (2) Cellulitis ICD Codes: L03.90 - Cellulitis, unspecified SNOMED: 482041609 (3) Edema ICD Codes: R60.9 - Edema, unspecified SNOMED: 527792614, 963108245 (4) Osteomyelitis of ankle ICD Codes: M86.9 - Osteomyelitis, unspecified SNOMED: 773691824 (5) HTN (hypertension) ICD Codes: I10 - Essential (primary) hypertension SNOMED: 51352090 (6) Hypoalbuminemia ICD Codes: E88.09 - Other disorders of plasma-protein metabolism, not elsewhere classified SNOMED: 505539008 Status: stable, progressing, tolerating diet Assessment/Plan ot pt diet abx wound care dc to snf if clear Subjective Constitutional: Reports: weakness Allergies: Coded Allergies: No Known Allergies (Unverified , 05/29/17) All Systems: reviewed and negative except above Subjective sleepy calm in bed Objective Last 24 Hour Vital Signs Date Time Temp Pulse Resp B/P (MAP) Pulse Ox O2 Delivery O2 Flow Rate FiO2 06/12/17 12:00 98.1 75 22 150/87 97 Room Air 98.1 06/12/17 08:00 98.3 73 18 119/83 97 Room Air 98.3 06/12/17 04:00 96 Room Air 06/12/17 04:00 98.1 60 21 113/55 94 98.1 06/12/17 00:00 100 Room Air 06/12/17 00:00 98.5 71 21 108/58 100 98.5 06/11/17 20:00 97 Room Air 06/11/17 20:00 97.0 76 18 118/62 97 Room Air 97.0 06/11/17 16:00 97.3 76 20 109/67 96 Room Air 97.3 Intake and Output 06/11/17 06/12/17 19:00 07:00 Intake Total 770 ml 480 ml Balance 770 ml 480 ml Intake Oral 650 ml IV Total 120 ml 480 ml # Voids 7 3 Laboratory Tests 06/12/17 05:30: White Blood Count 6.7, Red Blood Count 3.18L, Hemoglobin 9.9L, Hematocrit 29.6L , Mean Corpuscular Volume 93, Mean Corpuscular Hemoglobin 31.2H, Mean Corpuscular Hemoglobin Concent 33.5, Red Cell Distribution Width 13.3, Platelet Count 284, Mean Platelet Volume 6.9, Neutrophils (%) (Auto) 48.6, Lymphocytes (% ) (Auto) 34.3, Monocytes (%) (Auto) 7.8, Eosinophils (%) (Auto) 8.2H, Basophils (%) (Auto) 1.1, Sodium Level 140, Potassium Level 3.5, Chloride Level 104, Carbon Dioxide Level 30, Anion Gap 6, Blood Urea Nitrogen 11, Creatinine 0.9, Estimat Glomerular Filtration Rate > 60, Glucose Level 103, Calcium Level 8.9 Height (Feet): 5 Height (Inches): 4.00 Weight (Pounds): 215 General Appearance: lethargic EENT: normal ENT inspection Neck: normal alignment Cardiovascular: normal peripheral pulses, normal rate, regular rhythm Respiratory/Chest: chest wall non-tender, lungs clear, normal breath sounds Abdomen: normal bowel sounds, non tender, soft Extremities: normal inspection Edema: no edema noted Arm (L), no edema noted Arm (R), no edema noted Leg (L), no edema noted Leg (R), no edema noted Pedal (L), no edema noted Pedal (R), no edema noted Generalized Neurologic: responsive, motor weakness Skin: normal pigmentation, warm/dry ANN DONALDSON Jun 12, 2017 13:28
--- NOTE | 2017-06-12 13:37 | General Surgery Progress Note ---
General Surgery-Progress Note Subjective Symptoms: improved Additional Comments no issues. wants good placement Objective Last 24 Hour Vital Signs Date Time Temp Pulse Resp B/P (MAP) Pulse Ox O2 Delivery O2 Flow Rate FiO2 06/12/17 12:00 98.1 75 22 150/87 97 Room Air 98.1 06/12/17 08:00 98.3 73 18 119/83 97 Room Air 98.3 06/12/17 04:00 96 Room Air 06/12/17 04:00 98.1 60 21 113/55 94 98.1 06/12/17 00:00 100 Room Air 06/12/17 00:00 98.5 71 21 108/58 100 98.5 06/11/17 20:00 97 Room Air 06/11/17 20:00 97.0 76 18 118/62 97 Room Air 97.0 06/11/17 16:00 97.3 76 20 109/67 96 Room Air 97.3 I&O Intake and Output 06/11/17 06/12/17 19:00 07:00 Intake Total 770 ml 480 ml Balance 770 ml 480 ml Intake Oral 650 ml IV Total 120 ml 480 ml # Voids 7 3 Wound: clean, dry, intact Cardiovascular: RSR Respiratory: clear Abdomen: soft, flat, non-tender Extremities: no cyanosis Laboratory Tests Test 06/12/17 05:30 White Blood Count 6.7 K/UL (4.8-10.8) Red Blood Count 3.18 M/UL (4.20-5.40) L Hemoglobin 9.9 G/DL (12.0-16.0) L Hematocrit 29.6 % (37.0-47.0) L Mean Corpuscular Volume 93 FL (80-99) Mean Corpuscular Hemoglobin 31.2 PG (27.0-31.0) H Mean Corpuscular Hemoglobin Concent 33.5 G/DL (32.0-36.0) Red Cell Distribution Width 13.3 % (11.6-14.8) Platelet Count 284 K/UL (150-450) Mean Platelet Volume 6.9 FL (6.5-10.1) Neutrophils (%) (Auto) 48.6 % (45.0-75.0) Lymphocytes (%) (Auto) 34.3 % (20.0-45.0) Monocytes (%) (Auto) 7.8 % (1.0-10.0) Eosinophils (%) (Auto) 8.2 % (0.0-3.0) H Basophils (%) (Auto) 1.1 % (0.0-2.0) Sodium Level 140 MMOL/L (136-145) Potassium Level 3.5 MMOL/L (3.5-5.1) Chloride Level 104 MMOL/L (98-107) Carbon Dioxide Level 30 MMOL/L (21-32) Anion Gap 6 mmol/L (5-15) Blood Urea Nitrogen 11 mg/dL (7-18) Creatinine 0.9 MG/DL (0.55-1.30) Estimat Glomerular Filtration Rate > 60 mL/min (>60) Glucose Level 103 MG/DL (74-106) Calcium Level 8.9 MG/DL (8.5-10.1) Plan Problems: (1) S/P BKA (below knee amputation) unilateral Assessment & Plan: s/p left bka for severe osteo and infection. doing well. wound okay but patient does not keep leg elevated and has some edema. flap with good take. no areas of ischemia. odell in place -follow up with me in 2-3 weeks for staple removal. patient given all office info and appointment. -okay to d/c from surgical standpoint (2) Anxiety (3) Edema (4) Hypoalbuminemia (5) HTN (hypertension) (6) Osteomyelitis of ankle (7) Cellulitis Star Molina Jun 12, 2017 13:37
[2017-06-12 16:00] VITALS: BP 104/67
--- NOTE | 2017-06-12 16:00 | Progress Note ---
DATE: 06/12/2017 SUBJECTIVE: This is a 57-year-old female patient, who is in the hospital due to her leg infection, but she has a lot of mood lability, confusion and disorganized thought process. Mood lability has worsened secondary to stress of her medical illness . That is why her attending physician has requested daily psychiatric consultation. MENTAL STATUS EXAMINATION: The patient is a 57-year-old female with psychomotor agitation. Mood is irritable and agitated. Affect labile. Intellect poor. Mood depressed and anxious. Motor activity, psychomotor agitation. Attention span is poor. Orientation x2. Speech is pressured. Thought process, disorganized and illogical. Thought content, she also has some paranoid delusions. Insight and judgment is poor. DIAGNOSIS: Bipolar 2. PLAN: Titrate up on her Zyprexa to stabilize her mood. Provided 20 minutes supportive therapy. Encouraged her to interact appropriately with staff. Chart reviewed and discussed with staff. The patient seen and assessed at bedside. Rosa Cheatham M.D. DR: CHANTE JOB#: [id number] CC:
[2017-06-12 20:00] VITALS: BP 97/46
[2017-06-13] VITALS: BP 94/61
[2017-06-13 04:00] VITALS: BP 105/65
[2017-06-13] MEDS: D5 1/2NS 1,000 ML IV SCH ×2 (04:56→20:27)
[2017-06-13 08:00] VITALS: BP 101/57
--- NOTE | 2017-06-13 08:28 | General Progress Note ---
Assessment/Plan Problem List: (1) Anxiety ICD Codes: F41.9 - Anxiety disorder, unspecified SNOMED: 50070453 (2) Cellulitis ICD Codes: L03.90 - Cellulitis, unspecified SNOMED: 103351926 (3) Edema ICD Codes: R60.9 - Edema, unspecified SNOMED: 015464575, 142649275 (4) Osteomyelitis of ankle ICD Codes: M86.9 - Osteomyelitis, unspecified SNOMED: 263528429 (5) HTN (hypertension) ICD Codes: I10 - Essential (primary) hypertension SNOMED: 68234464 (6) Hypoalbuminemia ICD Codes: E88.09 - Other disorders of plasma-protein metabolism, not elsewhere classified SNOMED: 911049872 Status: unchanged Assessment/Plan ot pt diet abx wound care cbc bmp am dc to snf if clear Subjective Constitutional: Reports: weakness Allergies: Coded Allergies: No Known Allergies (Unverified , 05/29/17) All Systems: reviewed and negative except above Subjective sleepy calm in bed Objective Last 24 Hour Vital Signs Date Time Temp Pulse Resp B/P (MAP) Pulse Ox O2 Delivery O2 Flow Rate FiO2 06/13/17 04:00 96.4 73 19 105/65 96 Room Air 96.4 06/13/17 00:00 96.5 73 19 94/61 97 Room Air 96.5 06/12/17 20:00 97.5 73 20 97/46 99 Room Air 97.5 06/12/17 16:00 97.7 73 19 104/67 97 Room Air 97.7 06/12/17 12:00 98.1 75 22 150/87 97 Room Air 98.1 Intake and Output 06/12/17 06/13/17 19:00 07:00 Intake Total 1210 ml 600 ml Balance 1210 ml 600 ml Intake Oral 1150 ml IV Total 60 ml 600 ml # Voids 8 2 Height (Feet): 5 Height (Inches): 4.00 Weight (Pounds): 215 General Appearance: lethargic EENT: normal ENT inspection Neck: normal alignment Cardiovascular: normal peripheral pulses, normal rate, regular rhythm Respiratory/Chest: chest wall non-tender, lungs clear, normal breath sounds Abdomen: normal bowel sounds, non tender, soft Extremities: normal inspection Edema: no edema noted Arm (L), no edema noted Arm (R), no edema noted Leg (L), no edema noted Leg (R), no edema noted Pedal (L), no edema noted Pedal (R), no edema noted Generalized Neurologic: motor weakness Skin: normal pigmentation, warm/dry ANN DONALDSON Jun 13, 2017 08:28
[2017-06-13] MEDS: Bactrim-DS 1 tab ORAL SCH ×2 (10:08→17:33)
[2017-06-13] MEDS ORDERED: D5 1/2NS 1000ml IV ONE ×3 (11:16→15:11)
[2017-06-13] MEDS ORDERED: Tubing IV Secondary IV ONE (11:16)
[2017-06-13 12:00] VITALS: BP 115/73
--- NOTE | 2017-06-13 12:01 | General Surgery Progress Note ---
General Surgery-Progress Note Subjective Symptoms: improved Additional Comments no acute events. Objective Last 24 Hour Vital Signs Date Time Temp Pulse Resp B/P (MAP) Pulse Ox O2 Delivery O2 Flow Rate FiO2 06/13/17 10:09 98.0 06/13/17 08:00 98.0 68 18 101/57 99 Room Air 98.0 06/13/17 04:00 96.4 73 19 105/65 96 Room Air 96.4 06/13/17 00:00 96.5 73 19 94/61 97 Room Air 96.5 06/12/17 20:00 97.5 73 20 97/46 99 Room Air 97.5 06/12/17 16:00 97.7 73 19 104/67 97 Room Air 97.7 I&O Intake and Output 06/12/17 06/13/17 19:00 07:00 Intake Total 1210 ml 600 ml Balance 1210 ml 600 ml Intake Oral 1150 ml IV Total 60 ml 600 ml # Voids 8 2 Wound: clean, dry, intact, other - small serous blisters around staple insertion sites from edema and shear force but improving. edema slowly improving. brusing. no dehisencse Cardiovascular: RSR Respiratory: clear Abdomen: soft, non-tender, present bowel sounds Extremities: no cyanosis Plan Problems: (1) S/P BKA (below knee amputation) unilateral Assessment & Plan: s/p left bka for severe osteo and infection. doing well. wound okay but patient does not keep leg elevated and has some edema. flap with good take. no areas of ischemia. odell in place -follow up with me in 2-3 weeks for staple removal. patient given all office info and appointment. -okay to d/c from surgical standpoint (2) Anxiety (3) Edema (4) Hypoalbuminemia (5) HTN (hypertension) (6) Osteomyelitis of ankle (7) Cellulitis Star Molina Jun 13, 2017 12:01
[2017-06-13 16:00] VITALS: BP 110/69
[2017-06-13 20:00] VITALS: BP 110/60
--- NOTE | 2017-06-13 22:00 | Progress Note ---
DATE: 06/13/2017 SUBJECTIVE: A 57-year-old female patient with leg infection. She still has mood lability, confusion, racing thoughts, and pressured speech pattern. MENTAL STATUS EXAMINATION: A 57-year-old female with psychomotor agitation. Mood is irritable and agitated. Affect is labile. Thought process is disorganized with paranoia. Insight and judgment is poor. DIAGNOSIS: Schizoaffective, bipolar type. PLAN: Treat her with Zyprexa 5 mg twice a day. Provide 20 minutes of supportive therapy. Encourage her to interact appropriately with staff. Behavioral management provided. She was seen and assessed at bedside. Rosa Cheatham M.D. DR: Lily JOB#: [id number] CC:
[2017-06-14] VITALS: BP 97/70
[2017-06-14 04:00] VITALS: BP 106/58
[2017-06-14 08:00] VITALS: BP 107/67
[2017-06-14 08:36] LABS: BASOPHILS % (AUTO) 0.6 % (0.0-2.0); HEMATOCRIT 31.6 % (37.0-47.0); HEMOGLOBIN 10.5 G/DL (12.0-16.0); LYMPHOCYTES % (AUTO) 39.2 % (20.0-45.0); MEAN CORPUSCULAR VOLUME 94 FL (80-99); MONOCYTES % (AUTO) 8.8 % (1.0-10.0); NEUTROPHILS % (AUTO) 43.5 % (45.0-75.0); PLATELET COUNT 332 K/UL (150-450); RED BLOOD COUNT 3.38 M/UL (4.20-5.40); RED CELL DISTRIBUTION WIDTH 13.9 % (11.6-14.8); WHITE BLOOD COUNT 6.1 K/UL (4.8-10.8)
--- NOTE | 2017-06-14 08:53 | General Progress Note ---
Assessment/Plan Problem List: (1) Anxiety ICD Codes: F41.9 - Anxiety disorder, unspecified SNOMED: 22996752 (2) Cellulitis ICD Codes: L03.90 - Cellulitis, unspecified SNOMED: 565135997 (3) Edema ICD Codes: R60.9 - Edema, unspecified SNOMED: 966176894, 598643814 (4) Osteomyelitis of ankle ICD Codes: M86.9 - Osteomyelitis, unspecified SNOMED: 234220276 (5) HTN (hypertension) ICD Codes: I10 - Essential (primary) hypertension SNOMED: 76243193 (6) Hypoalbuminemia ICD Codes: E88.09 - Other disorders of plasma-protein metabolism, not elsewhere classified SNOMED: 092922993 Status: unchanged Assessment/Plan ot pt diet abx wound care cbc bmp am dc to snf if clear Subjective Constitutional: Reports: weakness Allergies: Coded Allergies: No Known Allergies (Unverified , 05/29/17) All Systems: reviewed and negative except above Subjective sleepy calm in bed Objective Last 24 Hour Vital Signs Date Time Temp Pulse Resp B/P (MAP) Pulse Ox O2 Delivery O2 Flow Rate FiO2 06/14/17 08:00 98.0 67 18 107/67 94 Room Air 98.0 06/14/17 04:00 97.4 66 19 106/58 91 97.4 06/14/17 04:00 Room Air 06/14/17 00:00 97.5 65 19 97/70 97 Room Air 97.5 06/14/17 00:00 Room Air 06/13/17 20:00 97.3 70 20 110/60 95 97.3 06/13/17 20:00 Room Air 06/13/17 16:00 97.1 69 18 110/69 97 Room Air 97.1 06/13/17 12:00 97.4 86 20 115/73 97 Room Air 97.4 06/13/17 10:09 98.0 Intake and Output 06/13/17 06/14/17 19:00 07:00 Intake Total 660 ml 930 ml Output Total 475 ml Balance 660 ml 455 ml Intake Oral 750 ml IV Total 660 ml 180 ml Output Urine Total 475 ml # Voids 6 Laboratory Tests 06/14/17 07:25: White Blood Count 6.1, Red Blood Count 3.38L, Hemoglobin 10.5L, Hematocrit 31.6L , Mean Corpuscular Volume 94, Mean Corpuscular Hemoglobin 31.0, Mean Corpuscular Hemoglobin Concent 33.1, Red Cell Distribution Width 13.9, Platelet Count 332, Mean Platelet Volume 6.9, Neutrophils (%) (Auto) 43.5L, Lymphocytes ( %) (Auto) 39.2, Monocytes (%) (Auto) 8.8, Eosinophils (%) (Auto) 8.0H, Basophils (%) (Auto) 0.6, Sodium Level [Pending], Potassium Level [Pending], Chloride Level [Pending], Carbon Dioxide Level [Pending], Blood Urea Nitrogen [ Pending], Creatinine [Pending], Estimat Glomerular Filtration Rate [Pending], Glucose Level [Pending], Calcium Level [Pending] Height (Feet): 5 Height (Inches): 4.00 Weight (Pounds): 215 General Appearance: lethargic EENT: normal ENT inspection Neck: normal alignment Cardiovascular: normal peripheral pulses, normal rate, regular rhythm Respiratory/Chest: chest wall non-tender, lungs clear, normal breath sounds Abdomen: normal bowel sounds, non tender, soft Extremities: normal inspection Edema: no edema noted Arm (L), no edema noted Arm (R), no edema noted Leg (L), no edema noted Leg (R), no edema noted Pedal (L), no edema noted Pedal (R), no edema noted Generalized Neurologic: motor weakness Skin: normal pigmentation, warm/dry ANN DONALDSON Jun 14, 2017 08:53
[2017-06-14] MEDS: Bactrim-DS 1 tab ORAL SCH ×2 (09:13→17:48)
[2017-06-14 09:14] LABS: ANION GAP 4 mmol/L (5-15); BLOOD UREA NITROGEN 16 mg/dL (7-18); CALCIUM 9.3 MG/DL (8.5-10.1); CARBON DIOXIDE 32 MMOL/L (21-32); CHLORIDE 105 MMOL/L (98-107); SODIUM 140 MMOL/L (136-145)
[2017-06-14 12:00] VITALS: BP 100/57
--- NOTE | 2017-06-14 13:13 | General Surgery Progress Note ---
General Surgery-Progress Note Subjective Symptoms: improved Additional Comments doing well. no issues. no acute events. Objective Last 24 Hour Vital Signs Date Time Temp Pulse Resp B/P (MAP) Pulse Ox O2 Delivery O2 Flow Rate FiO2 06/14/17 12:00 98.0 50 18 100/57 95 Room Air 98.0 06/14/17 08:00 98.0 67 18 107/67 94 Room Air 98.0 06/14/17 04:00 97.4 66 19 106/58 91 97.4 06/14/17 04:00 Room Air 06/14/17 00:00 97.5 65 19 97/70 97 Room Air 97.5 06/14/17 00:00 Room Air 06/13/17 20:00 97.3 70 20 110/60 95 97.3 06/13/17 20:00 Room Air 06/13/17 16:00 97.1 69 18 110/69 97 Room Air 97.1 I&O Intake and Output 06/13/17 06/14/17 19:00 07:00 Intake Total 660 ml 930 ml Output Total 475 ml Balance 660 ml 455 ml Intake Oral 750 ml IV Total 660 ml 180 ml Output Urine Total 475 ml # Voids 6 Wound: clean, dry, intact Drains: none Cardiovascular: RSR Respiratory: clear Abdomen: soft, non-tender, present bowel sounds Extremities: other - stump edema improved. intact. no signs of infection. overall much improved with good flap take Laboratory Tests Test 06/14/17 07:25 White Blood Count 6.1 K/UL (4.8-10.8) Red Blood Count 3.38 M/UL (4.20-5.40) L Hemoglobin 10.5 G/DL (12.0-16.0) L Hematocrit 31.6 % (37.0-47.0) L Mean Corpuscular Volume 94 FL (80-99) Mean Corpuscular Hemoglobin 31.0 PG (27.0-31.0) Mean Corpuscular Hemoglobin Concent 33.1 G/DL (32.0-36.0) Red Cell Distribution Width 13.9 % (11.6-14.8) Platelet Count 332 K/UL (150-450) Mean Platelet Volume 6.9 FL (6.5-10.1) Neutrophils (%) (Auto) 43.5 % (45.0-75.0) L Lymphocytes (%) (Auto) 39.2 % (20.0-45.0) Monocytes (%) (Auto) 8.8 % (1.0-10.0) Eosinophils (%) (Auto) 8.0 % (0.0-3.0) H Basophils (%) (Auto) 0.6 % (0.0-2.0) Sodium Level 140 MMOL/L (136-145) Potassium Level 4.0 MMOL/L (3.5-5.1) Chloride Level 105 MMOL/L (98-107) Carbon Dioxide Level 32 MMOL/L (21-32) Anion Gap 4 mmol/L (5-15) L Blood Urea Nitrogen 16 mg/dL (7-18) Creatinine 1.0 MG/DL (0.55-1.30) Estimat Glomerular Filtration Rate 57.4 mL/min (>60) Glucose Level 91 MG/DL (74-106) Calcium Level 9.3 MG/DL (8.5-10.1) Plan Problems: (1) S/P BKA (below knee amputation) unilateral Assessment & Plan: s/p left bka for severe osteo and infection. doing well. wound okay but patient does not keep leg elevated and has some edema. flap with good take. no areas of ischemia. odell in place -follow up with me in 2-3 weeks for staple removal. patient given all office info and appointment. -okay to d/c from surgical standpoint (2) Anxiety (3) Edema (4) Hypoalbuminemia (5) HTN (hypertension) (6) Osteomyelitis of ankle (7) Cellulitis Star Molina Jun 14, 2017 13:13
[2017-06-14] MEDS: D5 1/2NS 1,000 ML IV SCH (13:35)
[2017-06-14 16:00] VITALS: BP 113/73
[2017-06-14 20:00] VITALS: BP 126/70
--- NOTE | 2017-06-14 23:30 | Progress Note ---
DATE: 06/14/2017 SUBJECTIVE: This is a 57-year-old female with infection, but because of the progression of her medical illness, her mood lability has worsened and she has altered mental status and cognition has declined below baseline. That is why her attending has requested daily psychiatric consultation. MENTAL STATUS EXAMINATION: The patient is a 57-year-old female with psychomotor agitation. Mood is irritable and agitated. Affect is guarded and restricted. Thought process is disorganized and illogical. Endorses . Denies suicidal and homicidal ideations, but she has irritability and agitation. Affect is labile. Intellect poor. Insight and judgment is poor. DIAGNOSIS: Schizoaffective, bipolar type. PLAN: Treat her with Zyprexa 5 mg twice a day and lithium. Provided 20 minutes of supportive therapy and encouraged her to interact appropriately with staff. Chart reviewed and discussed with staff. Seen and assessed at the bedside. Rosa Cheatham M.D. DR: SARAH JOB#: [id number] CC:
[2017-06-15] VITALS: BP 145/88
--- NOTE | 2017-06-15 03:15 | Progress Note ---
DATE: 06/14/2017 SUBJECTIVE: The patient is a 57-year-old female with a leg infection. She still has a lot of mood lability, confusion, and racing thoughts. Therefore, her attending has requested daily psychiatric consultation. MENTAL STATUS EXAMINATION: This is a 57-year-old female with psychomotor agitation. Mood is irritable and agitated. Affect is labile. Intellect is fair, but has racing thoughts, pressured speech, and paranoia. Insight and judgment is poor. DIAGNOSIS: Schizoaffective, bipolar type. PLAN: Continue to titrate up the patient on Zyprexa 5 mg twice a day. Provided 18 to 20 minutes of supportive therapy and encouraged her to interact appropriately with staff. . Rosa Cheatham M.D. DR: SARAH JOB#: [id number] CC:
[2017-06-15] MEDS: D5 1/2NS 1,000 ML IV SCH (06:15)
[2017-06-15 07:02] VITALS: BP 141/80
[2017-06-15 08:00] VITALS: BP 120/63
[2017-06-15 08:11] LABS: BASOPHILS % (AUTO) 0.9 % (0.0-2.0); EOSINOPHILS % (AUTO) 6.6 % (0.0-3.0); HEMATOCRIT 33.7 % (37.0-47.0); HEMOGLOBIN 11.1 G/DL (12.0-16.0); LYMPHOCYTES % (AUTO) 41.1 % (20.0-45.0); MEAN CORPUSCULAR VOLUME 94 FL (80-99); MONOCYTES % (AUTO) 9.1 % (1.0-10.0); NEUTROPHILS % (AUTO) 42.2 % (45.0-75.0); PLATELET COUNT 371 K/UL (150-450); RED BLOOD COUNT 3.59 M/UL (4.20-5.40); RED CELL DISTRIBUTION WIDTH 13.4 % (11.6-14.8)
[2017-06-15 08:54] LABS: ANION GAP 9 mmol/L (5-15); BLOOD UREA NITROGEN 19 mg/dL (7-18); CALCIUM 9.7 MG/DL (8.5-10.1); CARBON DIOXIDE 29 MMOL/L (21-32); CHLORIDE 102 MMOL/L (98-107); POTASSIUM 4.1 MMOL/L (3.5-5.1); SODIUM 140 MMOL/L (136-145)
[2017-06-15] MEDS: Bactrim-DS 1 tab ORAL SCH ×2 (08:55→18:10)
--- NOTE | 2017-06-15 10:45 | Progress Note ---
DATE: 06/15/2017 SUBJECTIVE: The patient is a female patient, who continues to have some confusion. She has that is the main reason why she is in the hospital at this point, but she does have some confusion, disorganized thought process, and mood lability worsened by the stress of her medical illness. That is why her attending has requested daily psychiatric consultation for this patient. So, the plan for this patient is to treat her with a med regimen of Neurontin 300 mg 3 times a day and Klonopin 1 mg 3 times a day p.r.n. anxiety and agitation and should continue to be followed by Psychiatry throughout her hospital course. MENTAL STATUS EXAMINATION: This is a 57-year-old female patient with psychomotor retardation. Mood is depressed. Affect guarded and restricted. Thought process, disorganized and illogical. She denies any current suicidal or homicidal ideations. Her insight and judgment is poor. DIAGNOSIS: Major depressive disorder with psychotic features. PLAN: Continue treatment with a medical regimen consisting of Neurontin 300 mg 3 times a day and Klonopin 1 mg t.i.d. p.r.n. anxiety and agitation. Seen and assessed at bedside. Chart reviewed and discussed with staff. An 18 to 20 minutes of supportive therapy provided. Rosa Cheatham M.D. DR: GENE JOB#: [id number] CC:
--- NOTE | 2017-06-15 11:56 | General Surgery Progress Note ---
General Surgery-Progress Note Subjective Additional Comments no acute events. Objective Last 24 Hour Vital Signs Date Time Temp Pulse Resp B/P (MAP) Pulse Ox O2 Delivery O2 Flow Rate FiO2 06/15/17 10:20 98.1 06/15/17 08:00 98.1 58 17 120/63 98 98.1 06/15/17 07:02 98.0 86 19 141/80 96 98.0 06/15/17 04:00 Room Air 06/15/17 00:00 97.7 69 20 145/88 95 97.7 06/15/17 00:00 Room Air 06/14/17 20:00 Room Air 06/14/17 20:00 98.3 66 19 126/70 97 98.3 06/14/17 16:00 97.6 61 20 113/73 95 Room Air 97.6 06/14/17 12:00 98.0 50 18 100/57 95 Room Air 98.0 I&O Intake and Output 06/14/17 06/15/17 19:00 07:00 Intake Total 1080 ml 360 ml Balance 1080 ml 360 ml Intake Oral 720 ml IV Total 360 ml 360 ml # Voids 4 3 # Bowel Movements 2 Wound: clean, dry, intact Cardiovascular: RSR Respiratory: clear Abdomen: soft, flat, non-tender, present bowel sounds Extremities: no cyanosis Laboratory Tests Test 06/15/17 05:35 White Blood Count 6.0 K/UL (4.8-10.8) Red Blood Count 3.59 M/UL (4.20-5.40) L Hemoglobin 11.1 G/DL (12.0-16.0) L Hematocrit 33.7 % (37.0-47.0) L Mean Corpuscular Volume 94 FL (80-99) Mean Corpuscular Hemoglobin 30.8 PG (27.0-31.0) Mean Corpuscular Hemoglobin Concent 32.8 G/DL (32.0-36.0) Red Cell Distribution Width 13.4 % (11.6-14.8) Platelet Count 371 K/UL (150-450) Mean Platelet Volume 7.0 FL (6.5-10.1) Neutrophils (%) (Auto) 42.2 % (45.0-75.0) L Lymphocytes (%) (Auto) 41.1 % (20.0-45.0) Monocytes (%) (Auto) 9.1 % (1.0-10.0) Eosinophils (%) (Auto) 6.6 % (0.0-3.0) H Basophils (%) (Auto) 0.9 % (0.0-2.0) Sodium Level 140 MMOL/L (136-145) Potassium Level 4.1 MMOL/L (3.5-5.1) Chloride Level 102 MMOL/L (98-107) Carbon Dioxide Level 29 MMOL/L (21-32) Anion Gap 9 mmol/L (5-15) Blood Urea Nitrogen 19 mg/dL (7-18) H Creatinine 1.0 MG/DL (0.55-1.30) Estimat Glomerular Filtration Rate 57.4 mL/min (>60) Glucose Level 94 MG/DL (74-106) Calcium Level 9.7 MG/DL (8.5-10.1) Plan Problems: (1) S/P BKA (below knee amputation) unilateral Assessment & Plan: s/p left bka for severe osteo and infection. doing well. edema improving. flap with good take. no areas of ischemia. odell in place -follow up with me in 2-3 weeks for staple removal. patient given all office info and appointment. -okay to d/c from surgical standpoint (2) Anxiety (3) Edema (4) Hypoalbuminemia (5) HTN (hypertension) (6) Osteomyelitis of ankle (7) Cellulitis Star Molian Jun 15, 2017 11:56
[2017-06-15 12:00] VITALS: BP 117/73
--- NOTE | 2017-06-15 14:34 | General Progress Note ---
Assessment/Plan Problem List: (1) Anxiety ICD Codes: F41.9 - Anxiety disorder, unspecified SNOMED: 90849049 (2) Cellulitis ICD Codes: L03.90 - Cellulitis, unspecified SNOMED: 614875453 (3) Edema ICD Codes: R60.9 - Edema, unspecified SNOMED: 870983686, 572519276 (4) Osteomyelitis of ankle ICD Codes: M86.9 - Osteomyelitis, unspecified SNOMED: 335381331 (5) HTN (hypertension) ICD Codes: I10 - Essential (primary) hypertension SNOMED: 67835300 (6) Hypoalbuminemia ICD Codes: E88.09 - Other disorders of plasma-protein metabolism, not elsewhere classified SNOMED: 101437624 Status: unchanged Assessment/Plan ot pt diet abx wound care cbc bmp am dc to snf if clear Subjective Constitutional: Reports: weakness Allergies: Coded Allergies: No Known Allergies (Unverified , 05/29/17) All Systems: reviewed and negative except above Subjective sleepy calm in bed Objective Last 24 Hour Vital Signs Date Time Temp Pulse Resp B/P (MAP) Pulse Ox O2 Delivery O2 Flow Rate FiO2 06/15/17 14:20 97.9 06/15/17 12:00 97.9 63 17 117/73 96 97.9 06/15/17 11:19 98.1 06/15/17 10:20 98.1 06/15/17 08:00 98.1 58 17 120/63 98 98.1 06/15/17 07:02 98.0 86 19 141/80 96 98.0 06/15/17 04:00 Room Air 06/15/17 00:00 97.7 69 20 145/88 95 97.7 06/15/17 00:00 Room Air 06/14/17 20:00 Room Air 06/14/17 20:00 98.3 66 19 126/70 97 98.3 06/14/17 16:00 97.6 61 20 113/73 95 Room Air 97.6 Intake and Output 06/14/17 06/15/17 19:00 07:00 Intake Total 1080 ml 360 ml Balance 1080 ml 360 ml Intake Oral 720 ml IV Total 360 ml 360 ml # Voids 4 3 # Bowel Movements 2 Laboratory Tests 06/15/17 05:35: White Blood Count 6.0, Red Blood Count 3.59L, Hemoglobin 11.1L, Hematocrit 33.7L , Mean Corpuscular Volume 94, Mean Corpuscular Hemoglobin 30.8, Mean Corpuscular Hemoglobin Concent 32.8, Red Cell Distribution Width 13.4, Platelet Count 371, Mean Platelet Volume 7.0, Neutrophils (%) (Auto) 42.2L, Lymphocytes ( %) (Auto) 41.1, Monocytes (%) (Auto) 9.1, Eosinophils (%) (Auto) 6.6H, Basophils (%) (Auto) 0.9, Sodium Level 140, Potassium Level 4.1, Chloride Level 102, Carbon Dioxide Level 29, Anion Gap 9, Blood Urea Nitrogen 19H, Creatinine 1.0, Estimat Glomerular Filtration Rate 57.4, Glucose Level 94, Calcium Level 9.7 Height (Feet): 5 Height (Inches): 4.00 Weight (Pounds): 215 General Appearance: alert EENT: normal ENT inspection Neck: normal alignment Cardiovascular: normal peripheral pulses, normal rate, regular rhythm Respiratory/Chest: chest wall non-tender, lungs clear, normal breath sounds Abdomen: normal bowel sounds, non tender, soft Extremities: normal inspection Edema: no edema noted Arm (L), no edema noted Arm (R), no edema noted Leg (L), no edema noted Leg (R), no edema noted Pedal (L), no edema noted Pedal (R), no edema noted Generalized Neurologic: responsive, motor weakness Skin: normal pigmentation, warm/dry ANN DONALDSON Jun 15, 2017 14:33
[2017-06-15 16:00] VITALS: BP 145/80
[2017-06-15 20:00] VITALS: BP 111/68
--- NOTE | 2017-06-16 15:37 | Discharge Summary ---
Discharge Summary Hospital Course Date of Admission Jun 10, 2017 at 21:53 Date of Discharge Jun 15, 2017 at 21:50 Admitting Diagnosis LEG INFECTION HPI Bridget Cole is a 57 year old female who was admitted on Jun 10, 2017 at 21:53 for Leg Infection Hospital Course dc summary #[id number] Discharge Medications Continued Medications: Aspirin* (Aspirin*) 325 Mg Tablet 325 MG ORAL DAILY, TAB Baclofen* (Baclofen*) 10 Mg Tablet 10 MG ORAL BID, TAB Calcium Carbonate/Vitamin D3 (Calcium + Vitamin D Tablet) 1 Each Tablet 1 EACH PO DAILY, TAB Clonazepam* (Klonopin*) 1 Mg Tablet 1 MG ORAL Q6H, #15 TAB 0 Refills Diphenhydramine Hcl* (Benadryl*) 25 Mg Capsule 25 MG ORAL Q6H PRN for Itching, CAP Docusate Sodium* (Docusate Sodium*) 100 Mg Capsule 100 MG ORAL TWICE A DAY, CAP Oxycodone Hcl* (Oxycodone Hcl*) 5 Mg Capsule 5 MG ORAL Q6H PRN for For Pain, #30 CAP 0 Refills Tramadol Hcl* (Ultram*) 50 Mg Tablet 50 MG ORAL Q6H PRN for For Pain, #30 TAB 0 Refills Trimethoprim/Sulfamethoxazole 160/800* (Bactrim Ds Tablet*) 1 Each Tablet 1 TAB ORAL TWICE A DAY for 14 Days, TAB Zinc Sulfate (Zinc Sulfate*) 220 Mg Capsule 220 MG ORAL DAILY, CAP 0 Refills Discharge Condition Upon Discharge: stable Discharge Disposition Patient was discharged to SNF/Subacute Facility(03) Discharge Diagnoses: Discharge Instructions Discharge Instructions Special Instructions I have been assigned to complete a D/C Summary on this account. I was not involved in the patient management Jojo Alba NP ([facility]) Jun 16, 2017 15:37
--- NOTE | 2017-06-17 01:00 | Discharge Summary 2 SIG ---
DATE OF ADMISSION: 06/10/2017 DATE OF DISCHARGE: 06/15/2017 REASON FOR ADMISSION: 57-year-old female, with past medical history of hypertension, depression, and anxiety, was recently admitted for cellulitis of left foot and was diagnosed with severe infection and osteomyelitis of left ankle and subsequently undergone left BKA and was discharged to [facility]. However, the patient refused to stay there and was brought back to emergency room for further evaluation and placement. Upon evaluation, the patient was stable. Vital signs were stable. No leukocytosis. No fever. Hemoglobin-10.1 and hematocrit -30.3. Potassium -3.4. Otherwise, stable electrolytes. The patient was admitted for placement and further treatment with diagnosis of cellulitis left lower extremity, status post left BKA, osteomyelitis left ankle, and obesity. HOSPITAL COURSE: The patient was admitted. Surgery consult was requested. Per surgeon who followed closely, the patient was doing well. Edema improved. No areas of ischemia. Eloisa in place. Surgeon cleared for discharge. Outpatient followup with the surgeon in two to three weeks for staple removal. Oral Bactrim was continued to complete the course of treatment as recommended by ID specialist on previous admission. Psychiatrist seen and evaluated the patient. Psychiatrist diagnosed the patient with major depressive disorder with psychotic features. Psychiatric medication regimen was optimized. Pain management was provided. The patient was gently hydrated. Hemoglobin and hematocrit remained stable. No trend down. Placement was found at the longterm facility. The patient was stable for discharge to [facility]. FINAL DIAGNOSES: 1. Cellulitis, left lower extremity. 2.Osteomyelitis, left ankle. 3. Status post left [id number] amputation for severe osteomyelitis and infection. 4. Obesity. 5. Anemia. 6. Anxiety. 7. Back pain. 8. Major depressive disorder with psychotic feature. DISCHARGE MEDICATIONS: See medication reconciliation list. DISCHARGE INSTRUCTIONS: The patient discharged to longterm facility. Followup with medical doctor at the facility. Choco Stubbs D.O. I have been assigned to dictate discharge summary on this account and I was not involved in the patient's management. Jojo Alba N.P. ([place]anchtein) DR: Sharonda JOB#: [id number] CC: PIERRE
== END 2017-06-15 21:50 | DRG 603 ==
LOC: EDBD 21:16 → EMR 21:44 → 4E 21:53 → INTOOBSV 21:53 → OBSVTOIN 21:53 → EDBEDREQ 21:57
DX: L03.116 Cellulitis of left lower limb (principal); M86.8X7 Other osteomyelitis, ankle and foot; I10 Essential (primary) hypertension; F25.0 Schizoaffective disorder, bipolar type; E88.09 Other disorders of plasma-protein metabolism, not elsewhere classified; E66.9 Obesity, unspecified; Z89.512 Acquired absence of left leg below knee; Z68.36 Body mass index [BMI] 36.0-36.9, adult; D64.9 Anemia, unspecified; F41.9 Anxiety disorder, unspecified; M54.9 Dorsalgia, unspecified; R60.0 Localized edema; F32.9 Major depressive disorder, single episode, unspecified
CPT/HCPCS: 36415; 80048; 85025; 87081; 97803

== ENCOUNTER 2017-07-06 23:02 | Inpatient (IN) | payer MEDICARE, MEDICAID ==
[~2017-07-06] VITALS: Ht 162.6 cm; Wt 112.0 kg
[2017-07-06 23:12] VITALS: BP 125/74
[2017-07-06] MEDS ORDERED: Clindamycin 900mg 50 ML IVPB ONE (23:45)
[2017-07-07] VITALS (7 sets, daily range): BP systolic 116–156; BP diastolic 73–95
[2017-07-07 00:05] LABS: BASOPHILS % (AUTO) 0.8 % (0.0-2.0); EOSINOPHILS % (AUTO) 3.3 % (0.0-3.0); HEMATOCRIT 42.5 % (37.0-47.0); HEMOGLOBIN 14.2 G/DL (12.0-16.0); LYMPHOCYTES % (AUTO) 41.2 % (20.0-45.0); MEAN CORPUSCULAR VOLUME 93 FL (80-99); MONOCYTES % (AUTO) 10.1 % (1.0-10.0); NEUTROPHILS % (AUTO) 44.6 % (45.0-75.0); PLATELET COUNT 242 K/UL (150-450); RED BLOOD COUNT 4.58 M/UL (4.20-5.40); WHITE BLOOD COUNT 9.1 K/UL (4.8-10.8)
[2017-07-07 00:22] LABS: ANION GAP 7 mmol/L (5-15); BLOOD UREA NITROGEN 13 mg/dL (7-18); CALCIUM 9.9 MG/DL (8.5-10.1); CARBON DIOXIDE 30 MMOL/L (21-32); CHLORIDE 102 MMOL/L (98-107); CREATININE 0.8 MG/DL (0.55-1.30); POTASSIUM 4.1 MMOL/L (3.5-5.1); SODIUM 138 MMOL/L (136-145)
[2017-07-07] MEDS ORDERED: HYDROmorphone 1mg/ml Carpuject IVP ONE (00:30)
[2017-07-07] MEDS ORDERED: FLEET ENEMA133 ML RECTAL (00:41)
[2017-07-07] MEDS ORDERED: PRO-STAT LIQUID30 ML ORAL (00:41)
[2017-07-07] MEDS ORDERED: MILK OF MA400 MG/51 ORAL (00:41)
[2017-07-07] MEDS ORDERED: VITAMIN C500 M1 ORAL (00:41)
[2017-07-07] MEDS ORDERED: TYLENOL EXTRA500 MG ORAL (00:41)
[2017-07-07] MEDS ORDERED: DULCOLAX10 MG RC (00:41)
--- NOTE | 2017-07-07 00:41 | Emergency Room Report ---
History of Present Illness General Chief Complaint: Wound Recheck/Suture Removal Source: Patient, Medical Record, EMS Present Illness HPI This is a 57-year-old female who has a history of diabetes. She had a recent BKA about a month ago. She was admitted here last month for cellulitis of the BKA stump. She was sent back here now for reevaluation and possible infection. She been complaining of pain. No discharge. No nausea no vomiting. No fever or chills. Denies any other complaint. 10 out of 10. Allergies: Coded Allergies: Grits (Unverified Allergy, Unknown, 07/06/17) [place] (Unverified Allergy, Unknown, 07/06/17) Patient History Past Medical History: see triage record, old chart reviewed, DM Past Surgical History: other Pertinent Family History: none Social History: Denies: smoking Now: No Immunizations: other Reviewed Nursing Documentation: PMH: Agreed; PSxH: Agreed Nursing Documentation-PMH Past Medical History: No History, Except For Hx Cancer: No Hx Gastrointestinal Problems: No Hx Seizures: Yes Review of Systems Eye: Denies: eye pain, blurred vision ENT: Denies: ear pain, nose congestion, throat swelling Respiratory: Denies: cough, shortness of breath Cardiovascular: Denies: chest pain, palpitations Gastrointestinal: Denies: abdominal pain, diarrhea, nausea, vomiting Musculoskeletal: Reports: joint pain, muscle pain; Denies: back pain Skin: Denies: rash Neurological: Denies: headache, numbness Endocrine: Denies: increased thirst, increased urine Hematologic/Lymphatic: Denies: easy bruising All Other Systems: negative except mentioned in HPI Physical Exam Vital Signs Date Time Temp Pulse Resp B/P (MAP) Pulse Ox O2 Delivery O2 Flow Rate FiO2 07/06/17 23:00 97.6 82 16 125/74 92 Room Air 97.5 vitals normal Sp02 EP Interpretation: reviewed, normal General Appearance: well appearing, no apparent distress, alert Head: normocephalic, atraumatic Eyes: bilateral eye PERRL, bilateral eye EOMI ENT: hearing grossly normal, normal pharynx Neck: full range of motion, supple, no meningismus Respiratory: chest non-tender, lungs clear, normal breath sounds Cardiovascular #1: regular rate, rhythm, no murmur Gastrointestinal: normal bowel sounds, non tender, no mass, no organomegaly, no bruit, non-distended Musculoskeletal: back normal, normal range of motion, other - Left BKA stump: Medially and laterally the wound is dehisced with erythema along the edges. There are eschar along the wound. No drainage. Neurologic: alert, oriented x3 Psychiatric: mood/affect normal Skin: warm/dry Procedures Additional Procedure Procedure Narrative Procedure: Staple removal Indication: Wound infection Description: I removed the odell without any problem. Necrotic tissue also excised with a scissor. Medical Decision Making Diagnostic Impression: Primary Impression: Cellulitis of left lower leg Additional Impressions: Post op infection Qualified Codes: T81.4XXA - Infection following a procedure, initial encounter Morbid obesity Chronic pain ER Course Patient presents with postoperative infection in the distant of her wound. It is healing secondarily. I removed necrotic tissue to the base of the wound. Wet-to-dry dressing placed. There is no deep infection seen. No abscess noted. Antibiotic started. Will admit for IV antibiotics. I contacted Dr. Donaldson for admission. Lab Results Impression labs unremarkable. Last Vital Signs Date Time Temp Pulse Resp B/P (MAP) Pulse Ox O2 Delivery O2 Flow Rate FiO2 07/07/17 00:28 97.5 07/06/17 23:12 76 16 125/74 92 Room Air Status: improved Disposition: ADMITTED INPATIENT Condition: Serious Referrals: ANN DONALDSON (PCP) MARA DELAROSA M.D. Jul 07, 2017 00:41
[2017-07-07] MEDS ORDERED: Acetaminophen 500mg (ES) tab ORAL PRN (06:15)
[2017-07-07] MEDS ORDERED: Milk of Magnesia 30ml Ud ORAL PRN (06:15)
[2017-07-07] MEDS ORDERED: oxyCONTIN 10mg tab ORAL PRN (06:15)
[2017-07-07] MEDS ORDERED: Albuterol/Ipratropium 3ml neb HHN PRN (06:30)
[2017-07-07] MEDS ORDERED: Nitroglycerin Subl 0.4mg tab SL PRN (06:30)
[2017-07-07] MEDS ORDERED: oxyCODONE 5mg IR tab ORAL PRN (06:30)
[2017-07-07] MEDS ORDERED: Miralax 17gm pkt ORAL PRN (06:30)
[2017-07-07] MEDS ORDERED: Morphine Sulfate 2mg/ml Inj IVP PRN (06:30)
[2017-07-07] MEDS: ZyPREXA Zydis 5mg tab ORAL SCH ×2 (08:37→18:13)
[2017-07-07] MEDS: Zinc Sulfate 220mg cap ORAL SCH (08:37)
[2017-07-07] MEDS: Heparin 5000 units/ml inj SUBQ SCH ×2 (08:39→20:24)
--- NOTE | 2017-07-07 08:50 | Consultation ---
Consult Note Consult Note ID DIC # [id number] Sarthak Sutherland MD Jul 07, 2017 08:50
[2017-07-07] MEDS ORDERED: Heparin 5000 units/ml inj SUBQ SCH (09:00)
[2017-07-07] MEDS ORDERED: Cefepime HCl 2 GM in D5W 110 ML IV SCH (09:00)
[2017-07-07] MEDS ORDERED: Vancomycin 1500mg IVPB ONE (10:00)
[2017-07-07] MEDS: Docusate 100mg cap ORAL SCH (10:05)
--- NOTE | 2017-07-07 14:00 | Consultation ---
DATE OF CONSULTATION: 07/07/2017 HISTORY OF PRESENT ILLNESS: The patient is a 57-year-old female patient. This patient was admitted to the hospital at [facility] and the reason for her admission is she came in because she needs postop wound care, but this patient also has a previous diagnosis of schizoaffective bipolar type and so that is why she does require daily psychiatric consultation. Her attending physician has requested daily psychiatric consultation because the patient is highly delusional and has been exhibiting altered mental status and high levels of anxiety and history of agitation and irritability as well. That is why, she requires daily psychiatric consultation. She was recently in the hospital and was treating here for psychiatric services during her last admission at [facility] and at that time, the patient was taking Zyprexa 5 mg twice a day and she was also taking Klonopin, which she is requesting at this time. 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 She thinks that she runs the city. She is irritable. She has mood lability. She has got some agitation. She has got no logical plan for her own self-care. So, she does have some psychosis and mood lability. Racing thoughts and pressured speech pattern. ALLERGY: She has no known drug allergies at this time. SUBSTANCE ABUSE HISTORY: Denies drug and alcohol use. SOCIAL HISTORY: She lives in [facility]. MEDICAL HISTORY: The patient has a wound, she needs current postop wound care. PSYCHIATRIC HISTORY: She has had some psychiatric admissions, but she refuses to give me the details and she was also seen by psychiatric consultation service during her last admission to [facility]. STRENGTHS: She is moderately better. Has place to live. WEAKNESSES: She is impulsive and minimal support system. MENTAL STATUS EXAMINATION: This is a female patient, 57 years old. Appearance is disheveled. Attitude, irritable and agitated. Affect labile. Intellect poor. Mood is depressed and anxious. Affect guarded and restricted. Intellect poor. She has psychomotor agitation. Attention span is poor. Orientation x2. Speech is pressured. Thought process disorganized. Thought content, she has paranoid delusions and auditory hallucinations, but denies suicidal or homicidal thoughts. Insight and judgment is poor. DIAGNOSIS: Schizoaffective, bipolar type. PLAN: My plan for this patient is I am going to put her back on her Klonopin 2 mg q.6 hours p.r.n. anxiety and agitation. In addition, I am going to restart her on Zyprexa Zydis 5 mg twice a day. Provide 20 minutes of supportive therapy and encourage her to interact appropriately with staff and other patients. I would like to thank, Dr. Choco Stubbs, for this interesting consultation. A 20 minutes of supportive therapy provided. Chart reviewed and discussed with staff. Seen and assessed in her room. Rosa Cheatham M.D. DR: PAMELLA JOB#: [id number] CC:
--- NOTE | 2017-07-07 14:54 | Diagnostic Imaging Report ---
Indication: Cough Technique: One view of the chest Comparison: 06/04/2017 Findings: Lungs and pleural spaces are clear. Heart size is normal. Better inspiration currently. Previously demonstrated PICC is no longer present Impression: No acute process
[2017-07-07] MEDS ORDERED: guaiFENesin DM 100mg/5ml ORAL PRN (15:00)
--- NOTE | 2017-07-07 15:54 | General Progress Note ---
Progress Note Progress Note Surgery Consult: patient well known to me from prior admission. s/p BKA for severe osteo with active non healing infection. Was discharged a few weeks ago and was scheduled to follow up with me in the office prior but missed appointment despite phone call reminders. Has returned for evaluation of BKA because of erythema. Cameron which were planned to be removed 1-2 weeks ago were still in place and there was edema in stump. odell were removed and surgical incision noted to have areas of dehiscence. eschar noted on these areas and not signs of active infection. no drainage. erythema from wound healing. discussed findings with patient. dressings applied. given wound dehiscence will need a few weeks of wound care. fortunately small areas that can be managed with wound care. if not may require revision. will follow with recs. thank you for this consultation Star Molina Jul 07, 2017 15:54
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
[2017-07-07] MEDS ORDERED: Guaifenesin/DM 10ml syrup ORAL PRN (16:30)
--- NOTE | 2017-07-07 17:30 | History and Physical Report ---
DATE OF ADMISSION: 07/07/2017 TIME: 3 p.m. CONSULTANTS: 1. Mich Osborne M.D. 2. Sarthak Sutherland M.D. 3. Star Molina M.D. CHIEF COMPLAINT: Infected left stump wound. BRIEF HISTORY: This is a 57-year-old female from [facility] presented with the above-mentioned diagnosis recently had left BKA. Apparently, the wound got opened up and slight drainage. The patient was diagnosed with above and admitted to [facility] for further care. Currently, calm in bed. No complaint. No chest pain. No shortness of breath. No nausea, vomiting, or diarrhea. PAST MEDICAL HISTORY: Includes hypertension, obesity, chronic pain, and osteomyelitis of leg, now is status post amputation. PAST SURGICAL HISTORY: Recent left foot BKA. MEDICATIONS: Include vancomycin, Lotrimin, , levofloxacin, Zyprexa, zinc, aspirin, Colace, heparin, Dilaudid, oxycodone, Restoril, and Zofran. ALLERGIES: Denies. SOCIAL HISTORY: Positive smoking. No alcohol. No intravenous drug abuse. FAMILY HISTORY: Noncontributory. PHYSICAL EXAMINATION: GENERAL: Calm in bed, oriented x2, in no acute distress. VITAL SIGNS: Temperature is 97, pulse 70, respirations 18, and blood pressure 116/77. CARDIOVASCULAR: No murmurs. LUNGS: Distant and clear. ABDOMEN: Bowel sounds positive, nontender, and nondistended. EXTREMITIES: No cyanosis, clubbing, or edema. Left leg stump dressing clean and dry. NEUROLOGIC: The patient moves all extremities. Slightly weak. LABORATORY AND DIAGNOSTIC DATA: CBC is normal. BMP shows glucose 107, otherwise BMP is normal. ASSESSMENT: 1. Infected left leg stump. 2. Obesity. 3. Hypertension. 4. Chronic pain. 5. Osteomyelitis. 6. Psych history. PLAN: 1. Continue premeds. 2. OT, PT, and dietary evaluation. 3. Pain control. 4. Wound care. 5. Antibiotics per Infectious Disease. 6. CBC and BMP in the morning. 7. Resume home medications. 8. Dr. Osborne, Dr. Sutherland, Dr. Molina, and Dr. Cheatham to consult. 9. We will continue to follow this patient medically. Choco Stubbs D.O. DR: PHILLIP JOB#: [id number] CC:
[2017-07-07] MEDS ORDERED: Vancomycin 1250mg/D5W 250ml 250 ML IVPB SCH (22:00)
[2017-07-08] VITALS: BP 115/72
[2017-07-08 04:00] VITALS: BP 106/69
[2017-07-08 08:00] VITALS: BP 118/70
[2017-07-08 09:05] LABS: BASOPHILS % (AUTO) 0.4 % (0.0-2.0); EOSINOPHILS % (AUTO) 3.8 % (0.0-3.0); HEMATOCRIT 42.8 % (37.0-47.0); HEMOGLOBIN 13.9 G/DL (12.0-16.0); MEAN CORPUSCULAR VOLUME 95 FL (80-99); MONOCYTES % (AUTO) 8.6 % (1.0-10.0); NEUTROPHILS % (AUTO) 54.2 % (45.0-75.0); PLATELET COUNT 223 K/UL (150-450); RED CELL DISTRIBUTION WIDTH 15.8 % (11.6-14.8); WHITE BLOOD COUNT 7.4 K/UL (4.8-10.8)
[2017-07-08] MEDS: ZyPREXA Zydis 5mg tab ORAL SCH ×2 (09:09→17:23)
[2017-07-08] MEDS: Guaifenesin/DM 10ml syrup ORAL PRN (09:09)
[2017-07-08] MEDS: Zinc Sulfate 220mg cap ORAL SCH (09:09)
[2017-07-08] MEDS: Docusate 100mg cap ORAL SCH (09:09)
[2017-07-08] MEDS: Heparin 5000 units/ml inj SUBQ SCH ×2 (09:11→21:03)
[2017-07-08 09:59] LABS: ALANINE AMINOTRANSFERASE 30 U/L (12-78); ALBUMIN 2.8 G/DL (3.4-5.0); ALBUMIN/GLOBULIN RATIO 0.6 (1.0-2.7); ALKALINE PHOSPHATASE 83 U/L (46-116); ANION GAP 8 mmol/L (5-15); ASPARTATE AMINO TRANSFERASE 26 U/L (15-37); BILIRUBIN,TOTAL 0.2 MG/DL (0.2-1.0); BLOOD UREA NITROGEN 14 mg/dL (7-18); CALCIUM 9.5 MG/DL (8.5-10.1); CARBON DIOXIDE 29 MMOL/L (21-32); CHLORIDE 104 MMOL/L (98-107); CREATININE 0.8 MG/DL (0.55-1.30); POTASSIUM 3.9 MMOL/L (3.5-5.1); SODIUM 141 MMOL/L (136-145)
[2017-07-08 12:00] VITALS: BP 108/85
--- NOTE | 2017-07-08 13:40 | General Progress Note ---
Assessment/Plan Problem List: (1) Anxiety ICD Codes: F41.9 - Anxiety disorder, unspecified SNOMED: 47629984 (2) HTN (hypertension) ICD Codes: I10 - Essential (primary) hypertension SNOMED: 30443987 (3) Morbid obesity ICD Codes: E66.01 - Morbid (severe) obesity due to excess calories SNOMED: 024903432, 82097115967697 (4) Chronic pain ICD Codes: G89.29 - Other chronic pain SNOMED: 91251816, 28349199451238 (5) Post op infection ICD Codes: T81.4XXA - Infection following a procedure, initial encounter SNOMED: 03922442, 98743001457705 Qualifiers: Qualified Codes: T81.4XXA - Infection following a procedure, initial encounter Status: stable, progressing, tolerating diet Assessment/Plan wound care abx pain control cbc bmp am Subjective Constitutional: Reports: weakness Allergies: Coded Allergies: Grits (Unverified Allergy, Unknown, 07/06/17) [place] (Unverified Allergy, Unknown, 07/06/17) All Systems: reviewed and negative except above Subjective sleepy calm Objective Last 24 Hour Vital Signs Date Time Temp Pulse Resp B/P (MAP) Pulse Ox O2 Delivery O2 Flow Rate FiO2 07/08/17 12:00 96.4 90 16 108/85 97 Room Air 96.4 07/08/17 08:00 97.8 71 18 118/70 96 Room Air 97.8 07/08/17 08:00 75 16 Room Air 21 07/08/17 04:00 98.4 73 20 106/69 100 98.4 07/08/17 00:00 98.3 78 20 115/72 95 98.3 07/07/17 20:00 97.6 81 20 132/79 95 97.6 07/07/17 16:12 98.0 78 19 130/77 96 Room Air 98.0 Intake and Output 07/07/17 07/08/17 19:00 07:00 Intake Total 240 ml Balance 240 ml Intake Oral 240 ml # Voids 3 Laboratory Tests 07/08/17 07:48: White Blood Count 7.4, Red Blood Count 4.50, Hemoglobin 13.9, Hematocrit 42.8, Mean Corpuscular Volume 95, Mean Corpuscular Hemoglobin 30.8, Mean Corpuscular Hemoglobin Concent 32.4, Red Cell Distribution Width 15.8H, Platelet Count 223, Mean Platelet Volume 7.8, Neutrophils (%) (Auto) 54.2, Lymphocytes (%) (Auto) 33.0, Monocytes (%) (Auto) 8.6, Eosinophils (%) (Auto) 3.8H, Basophils (%) (Auto ) 0.4, Sodium Level 141, Potassium Level 3.9, Chloride Level 104, Carbon Dioxide Level 29, Anion Gap 8, Blood Urea Nitrogen 14, Creatinine 0.8, Estimat Glomerular Filtration Rate > 60, Glucose Level 101, Calcium Level 9.5, Total Bilirubin 0.2, Aspartate Amino Transf (AST/SGOT) 26, Alanine Aminotransferase ( ALT/SGPT) 30, Alkaline Phosphatase 83, Total Protein 7.2, Albumin 2.8L, Globulin 4.4, Albumin/Globulin Ratio 0.6L Height (Feet): 5 Height (Inches): 4.00 Weight (Pounds): 247 General Appearance: lethargic EENT: normal ENT inspection Neck: normal alignment Cardiovascular: normal peripheral pulses, normal rate, regular rhythm Respiratory/Chest: chest wall non-tender, lungs clear, normal breath sounds Abdomen: normal bowel sounds, non tender, soft Extremities: normal inspection Edema: no edema noted Arm (L), no edema noted Arm (R), no edema noted Leg (L), no edema noted Leg (R), no edema noted Pedal (L), no edema noted Pedal (R), no edema noted Generalized Neurologic: motor weakness Skin: normal pigmentation, warm/dry Objective l stump dressing c&ANN Daugherty Jul 08, 2017 13:40
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
[2017-07-08 16:00] VITALS: BP 116/79
--- NOTE | 2017-07-08 18:45 | Progress Note ---
DATE: 07/08/2017 SUBJECTIVE: The patient is a 57-year-old female patient. She continues to have some mood lability, confusion, and disorganized thought process, worsened by the stress of her mental illness. She is status post and she has also bipolar 2 disorder, rule out schizoaffective, bipolar type. She has extreme mood lability, aggressive thoughts, and pressured speech. That is why, her attending physician has requested daily psychiatric consultation for diagnosis of schizoaffective, bipolar type. MENTAL STATUS EXAMINATION: This is a 57-year-old female. Appearance is disheveled, irritable, and agitated. Affect guarded and restricted. Intellect poor. Mood depressed and anxious. Motor activity, psychomotor agitation. Attention span is poor. Orientation x2. Speech is pressured. Thought process, disorganized and illogical. Thought content, auditory hallucinations and paranoid delusions. Insight and judgment is poor. DIAGNOSIS: Schizoaffective, bipolar type. PLAN: Treat her with Zyprexa Zydis 5 mg at bedtime and provide 18 to 20 minutes of supportive therapy. Encourage her to interact appropriately with staff and other patients. Chart reviewed. Discussed with staff. Seen and assessed in the room. Rosa Cheatham M.D. DR: SARAH JOB#: [id number] CC:
[2017-07-08 20:00] VITALS: BP 131/96
--- NOTE | 2017-07-08 22:57 | Consultation ---
History of Present Illness General Date patient seen: Jul 08, 2017 Chief Complaint: Wound Recheck/Suture Removal Reason for Consultation: inpatient management Present Illness HPI 57-year-old female with of history of diabetes and recent BKA about a month ago is sent back ER for reevaluation and possible infection of the amputation site. She has been complaining of pain. No discharge. No nausea no vomiting. No fever or chills. pt was diagnosed to have cellulitis of stump and admitted for further management. Allergies: Coded Allergies: Grits (Unverified Allergy, Unknown, 07/06/17) [place] (Unverified Allergy, Unknown, 07/06/17) Medication History Scheduled Amino Acids/Protein Hydrolys (Pro-Stat Liquid), 30 ML ORAL DAILY, (Reported) Ascorbic Acid* (Vitamin C*), 500 MG ORAL DAILY, (Reported) Aspirin* (Aspirin*), 325 MG ORAL DAILY, (Reported) Baclofen* (Baclofen*), 10 MG ORAL BID, (Reported) Calcium Carbonate/Vitamin D3 (Calcium + Vitamin D Tablet), 1 EACH PO DAILY, ( Reported) Clonazepam* (Klonopin*), 1 MG ORAL Q6H, (Reported) Docusate Sodium* (Docusate Sodium*), 100 MG ORAL TWICE A DAY, (Reported) Trimethoprim/Sulfamethoxazole 160/800* (Bactrim Ds Tablet*), 1 TAB ORAL TWICE A DAY, (Reported) Zinc Sulfate (Zinc Sulfate*), 220 MG ORAL DAILY, (Reported) Scheduled PRN Acetaminophen* (Tylenol Extra Strength*), 1,000 MG ORAL Q4HR PRN for Mild Pain/ Temp > 100.5, (Reported) Bisacodyl (Dulcolax), 10 MG RC for Constipation, (Reported) Diphenhydramine Hcl* (Benadryl*), 25 MG ORAL Q6H PRN for Itching, (Reported) Magnesium Hydroxide* (Milk Of Magnesia*), 30 ML ORAL DAILY PRN for Constipation, (Reported) Na Phos,M-B/Na Phos,Di-Ba* (Fleet Enema*), 133 ML RECTAL DAILY PRN for Constipation, (Reported) Oxycodone Hcl* (Oxycodone Hcl*), 5 MG ORAL Q6H PRN for For Pain, (Reported) Tramadol Hcl* (Ultram*), 50 MG ORAL Q6H PRN for For Pain, (Reported) Patient History Healthcare decision maker self Resuscitation status Full Code Advanced Directive on File Past Medical/Surgical History Past Medical/Surgical History: (1) HTN (hypertension) (2) Anxiety (3) S/P BKA (below knee amputation) unilateral (4) Morbid obesity Review of Systems Musculoskeletal: Reports: muscle stiffness, other All Other Systems: negative except mentioned in HPI Physical Exam General Appearance: WD/WN Lines, tubes and drains: peripheral HEENT: atraumatic, anicteric Neck: non-tender Respiratory/Chest: chest wall non-tender, lungs clear Breasts: no masses Cardiovascular/Chest: normal peripheral pulses Abdomen: normal bowel sounds Genitourinary/Rectal: normal genital exam Extremities: normal range of motion Last 24 Hour Vital Signs Date Time Temp Pulse Resp B/P (MAP) Pulse Ox O2 Delivery O2 Flow Rate FiO2 07/08/17 20:00 98.4 71 19 131/96 92 Room Air 98.4 07/08/17 19:43 78 16 Room Air 21 07/08/17 19:22 98.1 07/08/17 16:00 98.1 82 19 116/79 97 Room Air 98.1 07/08/17 12:00 96.4 90 16 108/85 97 Room Air 96.4 07/08/17 08:00 97.8 71 18 118/70 96 Room Air 97.8 07/08/17 08:00 75 16 Room Air 21 07/08/17 04:00 98.4 73 20 106/69 100 98.4 07/08/17 00:00 98.3 78 20 115/72 95 98.3 Intake and Output 07/07/17 07/08/17 19:00 07:00 Intake Total 240 ml Balance 240 ml Intake Oral 240 ml # Voids 3 Laboratory Tests Test 07/08/17 07:48 White Blood Count 7.4 K/UL (4.8-10.8) Red Blood Count 4.50 M/UL (4.20-5.40) Hemoglobin 13.9 G/DL (12.0-16.0) Hematocrit 42.8 % (37.0-47.0) Mean Corpuscular Volume 95 FL (80-99) Mean Corpuscular Hemoglobin 30.8 PG (27.0-31.0) Mean Corpuscular Hemoglobin Concent 32.4 G/DL (32.0-36.0) Red Cell Distribution Width 15.8 % (11.6-14.8) H Platelet Count 223 K/UL (150-450) Mean Platelet Volume 7.8 FL (6.5-10.1) Neutrophils (%) (Auto) 54.2 % (45.0-75.0) Lymphocytes (%) (Auto) 33.0 % (20.0-45.0) Monocytes (%) (Auto) 8.6 % (1.0-10.0) Eosinophils (%) (Auto) 3.8 % (0.0-3.0) H Basophils (%) (Auto) 0.4 % (0.0-2.0) Sodium Level 141 MMOL/L (136-145) Potassium Level 3.9 MMOL/L (3.5-5.1) Chloride Level 104 MMOL/L (98-107) Carbon Dioxide Level 29 MMOL/L (21-32) Anion Gap 8 mmol/L (5-15) Blood Urea Nitrogen 14 mg/dL (7-18) Creatinine 0.8 MG/DL (0.55-1.30) Estimat Glomerular Filtration Rate > 60 mL/min (>60) Glucose Level 101 MG/DL (74-106) Calcium Level 9.5 MG/DL (8.5-10.1) Total Bilirubin 0.2 MG/DL (0.2-1.0) Aspartate Amino Transf (AST/SGOT) 26 U/L (15-37) Alanine Aminotransferase (ALT/SGPT) 30 U/L (12-78) Alkaline Phosphatase 83 U/L (46-116) Total Protein 7.2 G/DL (6.4-8.2) Albumin 2.8 G/DL (3.4-5.0) L Globulin 4.4 g/dL Albumin/Globulin Ratio 0.6 (1.0-2.7) L Height (Feet): 5 Height (Inches): 4.00 Weight (Pounds): 247 Medications Current Medications Medications (Trade) Dose Ordered Sig/William Route PRN Reason Start Time Stop Time Status Last Admin Dose Admin Acetaminophen (Tylenol) 650 mg Q4H PRN ORAL fever 07/07/17 06:30 08/06/17 06:29 Albuterol/ Ipratropium (Albuterol/ Ipratropium) 3 ml EVERY 4 HOURS PRN HHN Shortness of Breath 07/07/17 06:30 07/12/17 06:29 Aspirin (ASA) 325 mg DAILY ORAL 07/07/17 09:00 08/06/17 08:59 07/08/17 09:09 Baclofen (Lioresal) 10 mg TWICE A DAY PRN ORAL For Muscle Pain 07/07/17 06:15 08/06/17 06:14 Clonazepam (KlonoPIN) 2 mg Q6H PRN ORAL For Anxiety 07/07/17 04:00 07/14/17 03:59 07/08/17 17:23 Clotrimazole (Lotrimin) 1 applic TWICE A DAY TOPIC 07/07/17 18:00 08/06/17 17:59 07/08/17 17:23 Dextrose (Dextrose 50%) STAT PRN IV Hypoglycemia 07/07/17 06:30 08/06/17 06:29 Diphenhydramine HCl (Benadryl) 25 mg Q6H PRN ORAL Itching 07/07/17 06:15 08/06/17 06:14 Docusate Sodium (Colace) 100 mg DAILY ORAL 07/07/17 09:00 08/06/17 08:59 07/08/17 09:09 Guaifenesin/ Dextromethorphan (Robitussin DM Syrup) 15 ml Q6H PRN ORAL For Cough 07/07/17 16:30 08/06/17 16:29 07/08/17 09:09 Heparin Sodium (Porcine) (Heparin 5000 units/ml) 5,000 units EVERY 12 HOURS SUBQ 07/07/17 09:00 08/06/17 08:59 07/08/17 21:03 Hydromorphone HCl (Dilaudid) 1 mg Q4H PRN IVP Severe Pain (Pain Scale 7-10) 07/07/17 08:15 07/14/17 08:14 07/08/17 19:22 Levofloxacin 150 ml @ 100 mls/hr Q24H IVPB 07/07/17 14:00 07/14/17 23:59 07/08/17 13:48 Magnesium Hydroxide (Mom) 30 ml DAILYPRN PRN ORAL Constipation 07/07/17 06:15 08/06/17 06:14 Nitroglycerin (Ntg) 0.4 mg Q5M PRN SL Prn Chest Pain 07/07/17 06:30 08/06/17 06:29 Olanzapine (ZyPREXA Zydis) 5 mg BID ORAL 07/07/17 09:00 08/06/17 08:59 07/08/17 17:23 Ondansetron HCl (Zofran) 4 mg Q6H PRN IVP Nausea & Vomiting 07/07/17 06:30 08/06/17 06:29 Oxycodone HCl (Roxicodone) 5 mg Q6H PRN ORAL Severe Pain (Pain Scale 7-10) 07/07/17 06:30 07/14/17 06:29 Polyethylene Glycol (Miralax) 17 gm DAILYPRN PRN ORAL Constipation 07/07/17 06:30 08/06/17 06:29 Temazepam (Restoril) 15 mg HSPRN PRN ORAL Insomnia 07/07/17 06:30 07/14/17 06:29 Tramadol HCl (Ultram) 50 mg Q6H PRN ORAL Moderate Pain (Pain Scale 4-6) 07/07/17 06:15 07/14/17 06:14 Zinc Sulfate (Zinc Sulfate) 220 mg DAILY ORAL 07/07/17 09:00 08/06/17 08:59 07/08/17 09:09 Assessment/Plan Problem List: (1) Cellulitis ICD Codes: L03.90 - Cellulitis, unspecified SNOMED: 443060124 (2) Chronic pain ICD Codes: G89.29 - Other chronic pain SNOMED: 35232435, 78016836232728 (3) Morbid obesity ICD Codes: E66.01 - Morbid (severe) obesity due to excess calories SNOMED: 168822614, 91105491184629 (4) S/P BKA (below knee amputation) unilateral ICD Codes: Z89.519 - Acquired absence of unspecified leg below knee SNOMED: 55311339, 83783486, 151764574 (5) HTN (hypertension) ICD Codes: I10 - Essential (primary) hypertension SNOMED: 45569631 (6) Anxiety ICD Codes: F41.9 - Anxiety disorder, unspecified SNOMED: 67630503 Assessment/Plan wound care iv abx pain management dvt prophylaxis symptomatic treatment monitor BP Mich Osborne MD Jul 08, 2017 22:57
[2017-07-09] VITALS: BP 125/78
[2017-07-09] MEDS: Guaifenesin/DM 10ml syrup ORAL PRN (03:51)
[2017-07-09 04:00] VITALS: BP 124/78
--- NOTE | 2017-07-09 06:15 | Progress Note ---
DATE: 07/09/2017 SUBJECTIVE: The patient is a 57-year-old female patient. She is confused and disorganized. She has mood lability, worsened by stress from her medical illness. Because of her mood lability, her attending physician continues to request daily psychiatric consultation for this patient. I saw and assessed at bedside. She is very confused, hyperverbal and she does have some mood lability, agitation, and paranoid delusions as well. As far as her wound care, psychiatric consultation, and management of mood lability. MENTAL STATUS EXAMINATION: This is a 57-year-old female. Appearance is disheveled. Attitude, agitated, and irritable. Affect guarded and restricted. Intellect poor. Mood depressed and anxious. Motor activity, psychomotor agitation. Attention span is poor. Orientation x2. Speech is pressured. Thought process, disorganized and illogical. Thought content, auditory hallucinations and paranoid delusions. Insight and judgment is poor. DIAGNOSIS: Paranoid schizophrenia with acute exacerbation, rule out schizoaffective bipolar type. PLAN: Treat her with Zyprexa 5 mg twice a day and then also treat this patient with Klonopin 2 mg q. 6 hours p.r.n. anxiety and agitation. Provide 18 the 20 minutes of supportive therapy and encourage her to interact appropriately with staff and other patients. Chart reviewed. Discussed with staff. Seen and assessed in the bedside. Rosa Cheatham M.D. DR: CHANTE JOB#: [id number] CC:
[2017-07-09 06:36] LABS: BASOPHILS % (AUTO) 0.6 % (0.0-2.0); EOSINOPHILS % (AUTO) 3.8 % (0.0-3.0); HEMATOCRIT 42.1 % (37.0-47.0); HEMOGLOBIN 13.6 G/DL (12.0-16.0); LYMPHOCYTES % (AUTO) 31.5 % (20.0-45.0); MEAN CORPUSCULAR VOLUME 95 FL (80-99); MONOCYTES % (AUTO) 9.1 % (1.0-10.0); NEUTROPHILS % (AUTO) 54.9 % (45.0-75.0); PLATELET COUNT 211 K/UL (150-450); RED BLOOD COUNT 4.45 M/UL (4.20-5.40); RED CELL DISTRIBUTION WIDTH 15.9 % (11.6-14.8); WHITE BLOOD COUNT 7.7 K/UL (4.8-10.8)
[2017-07-09 07:12] LABS: ANION GAP 4 mmol/L (5-15); BLOOD UREA NITROGEN 13 mg/dL (7-18); CALCIUM 9.4 MG/DL (8.5-10.1); CARBON DIOXIDE 32 MMOL/L (21-32); CHLORIDE 104 MMOL/L (98-107); CREATININE 0.7 MG/DL (0.55-1.30); POTASSIUM 3.9 MMOL/L (3.5-5.1); SODIUM 140 MMOL/L (136-145)
[2017-07-09 08:00] VITALS: BP 104/69
[2017-07-09] MEDS: Docusate 100mg cap ORAL SCH (09:16)
[2017-07-09] MEDS: ZyPREXA Zydis 5mg tab ORAL SCH ×2 (09:16→17:28)
[2017-07-09] MEDS: Zinc Sulfate 220mg cap ORAL SCH (09:16)
[2017-07-09] MEDS: Heparin 5000 units/ml inj SUBQ SCH ×2 (09:18→21:49)
[2017-07-09] MEDS: traMADol 50mg tab ORAL PRN (11:37)
[2017-07-09 12:00] VITALS: BP 141/92
--- NOTE | 2017-07-09 14:18 | Pulmonology Progress Note ---
Assessment/Plan Problems: (1) Cellulitis (2) HTN (hypertension) (3) Morbid obesity (4) S/P BKA (below knee amputation) unilateral (5) Chronic pain Assessment/Plan pain management iv abx check cultures wound care Oxycodone PO DVT prophylaxis. Subjective ROS Limited/Unobtainable: No Interval Events: still c/o of pain, want Oxycodone Allergies: Coded Allergies: Grits (Unverified Allergy, Unknown, 07/06/17) [place] (Unverified Allergy, Unknown, 07/06/17) Objective Last 24 Hour Vital Signs Date Time Temp Pulse Resp B/P (MAP) Pulse Ox O2 Delivery O2 Flow Rate FiO2 07/09/17 12:00 97.2 78 20 141/92 90 Room Air 97.2 07/09/17 08:02 79 16 Room Air 21 07/09/17 08:00 97.7 65 20 104/69 93 Room Air 97.7 07/09/17 04:00 98.2 80 19 124/78 93 Room Air 98.2 07/09/17 00:00 98.0 84 19 125/78 96 Room Air 98.0 07/08/17 20:00 98.4 71 19 131/96 92 Room Air 98.4 07/08/17 19:43 78 16 Room Air 21 07/08/17 19:22 98.1 07/08/17 16:00 98.1 82 19 116/79 97 Room Air 98.1 Intake and Output 07/08/17 07/09/17 19:00 07:00 Intake Total 150 ml 250 ml Balance 150 ml 250 ml Intake Oral 250 ml IV Total 150 ml # Voids 3 1 Objective General Appearance: WN/WD Lines, tubes and drains: peripheral HEENT: normocephalic, atraumatic Neck: non-tender, normal alignment Respiratory/Chest: chest wall non-tender, lungs clear Cardiovascular/Chest: normal peripheral pulses, no JVD Abdomen: normal bowel sounds, non tender Genitourinary/Rectal: normal genital exam Extremities: normal range of motion Skin Exam: normal pigmentation Microbiology Date/Time Source Procedure Growth Status 07/06/17 23:29 Other Gram Stain - Final Resulted 07/06/17 23:29 Wound Culture - Preliminary Escherichia Coli Proteus Mirabilis Staphylococcus Aureus Staphylococcus Sp Coag Neg Resulted 07/07/17 00:32 Nasal Nares MRSA Culture - Final NO METHICILLIN RESISTANT STAPH AUREUS... Complete Laboratory Tests 07/09/17 05:45: White Blood Count 7.7, Red Blood Count 4.45, Hemoglobin 13.6, Hematocrit 42.1, Mean Corpuscular Volume 95, Mean Corpuscular Hemoglobin 30.6, Mean Corpuscular Hemoglobin Concent 32.4, Red Cell Distribution Width 15.9H, Platelet Count 211, Mean Platelet Volume 8.2, Neutrophils (%) (Auto) 54.9, Lymphocytes (%) (Auto) 31.5, Monocytes (%) (Auto) 9.1, Eosinophils (%) (Auto) 3.8H, Basophils (%) (Auto ) 0.6, Sodium Level 140, Potassium Level 3.9, Chloride Level 104, Carbon Dioxide Level 32, Anion Gap 4L, Blood Urea Nitrogen 13, Creatinine 0.7, Estimat Glomerular Filtration Rate > 60, Glucose Level 100, Calcium Level 9.4 Current Medications Medications (Trade) Dose Ordered Sig/William Route PRN Reason Start Time Stop Time Status Last Admin Dose Admin Acetaminophen (Tylenol) 650 mg Q4H PRN ORAL fever 07/07/17 06:30 08/06/17 06:29 Albuterol/ Ipratropium (Albuterol/ Ipratropium) 3 ml EVERY 4 HOURS PRN HHN Shortness of Breath 07/07/17 06:30 07/12/17 06:29 Aspirin (ASA) 325 mg DAILY ORAL 07/07/17 09:00 08/06/17 08:59 07/09/17 09:16 Baclofen (Lioresal) 10 mg TWICE A DAY PRN ORAL For Muscle Pain 07/07/17 06:15 08/06/17 06:14 Clonazepam (KlonoPIN) 2 mg Q6H PRN ORAL For Anxiety 07/07/17 04:00 07/14/17 03:59 07/08/17 17:23 Clotrimazole (Lotrimin) 1 applic TWICE A DAY TOPIC 07/07/17 18:00 08/06/17 17:59 07/09/17 09:17 Dextrose (Dextrose 50%) STAT PRN IV Hypoglycemia 07/07/17 06:30 08/06/17 06:29 Diphenhydramine HCl (Benadryl) 25 mg Q6H PRN ORAL Itching 07/07/17 06:15 08/06/17 06:14 Docusate Sodium (Colace) 100 mg DAILY ORAL 07/07/17 09:00 08/06/17 08:59 07/09/17 09:16 Guaifenesin/ Dextromethorphan (Robitussin DM Syrup) 15 ml Q6H PRN ORAL For Cough 07/07/17 16:30 08/06/17 16:29 07/09/17 03:51 Heparin Sodium (Porcine) (Heparin 5000 units/ml) 5,000 units EVERY 12 HOURS SUBQ 07/07/17 09:00 08/06/17 08:59 07/09/17 09:18 Hydromorphone HCl (Dilaudid) 1 mg Q4H PRN IVP Severe Pain (Pain Scale 7-10) 07/07/17 08:15 07/14/17 08:14 07/09/17 09:17 Levofloxacin 150 ml @ 100 mls/hr Q24H IVPB 07/07/17 14:00 07/14/17 23:59 07/09/17 13:13 Magnesium Hydroxide (Mom) 30 ml DAILYPRN PRN ORAL Constipation 07/07/17 06:15 08/06/17 06:14 Nitroglycerin (Ntg) 0.4 mg Q5M PRN SL Prn Chest Pain 07/07/17 06:30 08/06/17 06:29 Olanzapine (ZyPREXA Zydis) 5 mg BID ORAL 07/07/17 09:00 08/06/17 08:59 07/09/17 09:16 Ondansetron HCl (Zofran) 4 mg Q6H PRN IVP Nausea & Vomiting 07/07/17 06:30 08/06/17 06:29 Oxycodone HCl (Roxicodone) 5 mg Q6H PRN ORAL Severe Pain (Pain Scale 7-10) 07/07/17 06:30 07/14/17 06:29 Polyethylene Glycol (Miralax) 17 gm DAILYPRN PRN ORAL Constipation 07/07/17 06:30 08/06/17 06:29 Temazepam (Restoril) 15 mg HSPRN PRN ORAL Insomnia 07/07/17 06:30 07/14/17 06:29 Tramadol HCl (Ultram) 50 mg Q6H PRN ORAL Moderate Pain (Pain Scale 4-6) 07/07/17 06:15 07/14/17 06:14 07/09/17 11:37 Zinc Sulfate (Zinc Sulfate) 220 mg DAILY ORAL 07/07/17 09:00 08/06/17 08:59 07/09/17 09:16 Mich Osborne MD Jul 09, 2017 14:17
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
[2017-07-09] MEDS: oxyCODONE 15mg IR tab ORAL PRN ×2 (15:48→21:46)
[2017-07-09 16:00] VITALS: BP 124/91
--- NOTE | 2017-07-09 17:56 | General Surgery Progress Note ---
General Surgery-Progress Note Subjective Symptoms: improved Additional Comments no acute events. stable Objective Last 24 Hour Vital Signs Date Time Temp Pulse Resp B/P (MAP) Pulse Ox O2 Delivery O2 Flow Rate FiO2 07/09/17 16:00 97.3 72 20 124/91 93 Room Air 97.3 07/09/17 12:00 97.2 78 20 141/92 90 Room Air 97.2 07/09/17 08:02 79 16 Room Air 21 07/09/17 08:00 97.7 65 20 104/69 93 Room Air 97.7 07/09/17 04:00 98.2 80 19 124/78 93 Room Air 98.2 07/09/17 00:00 98.0 84 19 125/78 96 Room Air 98.0 07/08/17 20:00 98.4 71 19 131/96 92 Room Air 98.4 07/08/17 19:43 78 16 Room Air 21 07/08/17 19:22 98.1 I&O Intake and Output 07/08/17 07/09/17 19:00 07:00 Intake Total 150 ml 250 ml Balance 150 ml 250 ml Intake Oral 250 ml IV Total 150 ml # Voids 3 1 Dressing: dry Wound: clean, dry Drains: none Cardiovascular: RSR Respiratory: clear Abdomen: soft, flat, non-tender Extremities: no edema, no tenderness, no cyanosis Laboratory Tests Test 07/09/17 05:45 White Blood Count 7.7 K/UL (4.8-10.8) Red Blood Count 4.45 M/UL (4.20-5.40) Hemoglobin 13.6 G/DL (12.0-16.0) Hematocrit 42.1 % (37.0-47.0) Mean Corpuscular Volume 95 FL (80-99) Mean Corpuscular Hemoglobin 30.6 PG (27.0-31.0) Mean Corpuscular Hemoglobin Concent 32.4 G/DL (32.0-36.0) Red Cell Distribution Width 15.9 % (11.6-14.8) H Platelet Count 211 K/UL (150-450) Mean Platelet Volume 8.2 FL (6.5-10.1) Neutrophils (%) (Auto) 54.9 % (45.0-75.0) Lymphocytes (%) (Auto) 31.5 % (20.0-45.0) Monocytes (%) (Auto) 9.1 % (1.0-10.0) Eosinophils (%) (Auto) 3.8 % (0.0-3.0) H Basophils (%) (Auto) 0.6 % (0.0-2.0) Sodium Level 140 MMOL/L (136-145) Potassium Level 3.9 MMOL/L (3.5-5.1) Chloride Level 104 MMOL/L (98-107) Carbon Dioxide Level 32 MMOL/L (21-32) Anion Gap 4 mmol/L (5-15) L Blood Urea Nitrogen 13 mg/dL (7-18) Creatinine 0.7 MG/DL (0.55-1.30) Estimat Glomerular Filtration Rate > 60 mL/min (>60) Glucose Level 100 MG/DL (74-106) Calcium Level 9.4 MG/DL (8.5-10.1) Plan Problems: (1) S/P BKA (below knee amputation) unilateral Assessment & Plan: mild dehiscence of wound. improving with wound care. no signs of infection. cont with wound care okay to d/c from surgical standpoint can follow up with me as an outpatient for wound care Star Molina Jul 09, 2017 17:56
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
[2017-07-09 20:00] VITALS: BP_SYST 111; BP_SYST 131; BP_DIAS 65; BP_DIAS 94
[2017-07-10] VITALS: BP 117/69
[2017-07-10] MEDS: oxyCODONE 15mg IR tab ORAL PRN ×2 (03:47→10:22)
[2017-07-10 04:00] VITALS: BP 109/67
[2017-07-10 07:54] LABS: BASOPHILS % (AUTO) 0.7 % (0.0-2.0); EOSINOPHILS % (AUTO) 4.2 % (0.0-3.0); HEMATOCRIT 42.5 % (37.0-47.0); HEMOGLOBIN 13.8 G/DL (12.0-16.0); MEAN CORPUSCULAR VOLUME 94 FL (80-99); MONOCYTES % (AUTO) 9.7 % (1.0-10.0); NEUTROPHILS % (AUTO) 45.4 % (45.0-75.0); PLATELET COUNT 237 K/UL (150-450); RED CELL DISTRIBUTION WIDTH 15.6 % (11.6-14.8); WHITE BLOOD COUNT 7.2 K/UL (4.8-10.8)
[2017-07-10 08:00] VITALS: BP 124/76
[2017-07-10 08:11] LABS: ALANINE AMINOTRANSFERASE 28 U/L (12-78); ALBUMIN 2.8 G/DL (3.4-5.0); ALBUMIN/GLOBULIN RATIO 0.6 (1.0-2.7); ALKALINE PHOSPHATASE 79 U/L (46-116); ANION GAP 8 mmol/L (5-15); ASPARTATE AMINO TRANSFERASE 22 U/L (15-37); BILIRUBIN,TOTAL 0.3 MG/DL (0.2-1.0); BLOOD UREA NITROGEN 19 mg/dL (7-18); CALCIUM 9.5 MG/DL (8.5-10.1); CARBON DIOXIDE 30 MMOL/L (21-32); CHLORIDE 102 MMOL/L (98-107); CREATININE 0.8 MG/DL (0.55-1.30); PHOSPHORUS 4.1 MG/DL (2.5-4.9); POTASSIUM 4.2 MMOL/L (3.5-5.1); SODIUM 140 MMOL/L (136-145)
[2017-07-10] MEDS: Zinc Sulfate 220mg cap ORAL SCH (10:12)
[2017-07-10] MEDS: Docusate 100mg cap ORAL SCH (10:12)
[2017-07-10] MEDS: ZyPREXA Zydis 5mg tab ORAL SCH (10:12)
[2017-07-10] MEDS: Heparin 5000 units/ml inj SUBQ SCH (10:13)
[2017-07-10] MEDS ORDERED: ZYPREXA5 MG ORAL (10:43)
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
[2017-07-10 11:49] VITALS: BP 118/69
[2017-07-10] MEDS: traMADol 50mg tab ORAL PRN (12:45)
--- NOTE | 2017-07-10 13:03 | General Progress Note ---
Assessment/Plan Problem List: (1) Anxiety ICD Codes: F41.9 - Anxiety disorder, unspecified SNOMED: 28330207 (2) HTN (hypertension) ICD Codes: I10 - Essential (primary) hypertension SNOMED: 34606455 (3) Morbid obesity ICD Codes: E66.01 - Morbid (severe) obesity due to excess calories SNOMED: 667849626, 82041678376301 (4) Chronic pain ICD Codes: G89.29 - Other chronic pain SNOMED: 53758943, 18440059283825 (5) Post op infection ICD Codes: T81.4XXA - Infection following a procedure, initial encounter SNOMED: 78491927, 51136241355037 Qualifiers: Qualified Codes: T81.4XXA - Infection following a procedure, initial encounter Status: stable, progressing, tolerating diet Assessment/Plan wound care abx pain control dc if clear Subjective Constitutional: Reports: weakness Allergies: Coded Allergies: Grits (Unverified Allergy, Unknown, 07/06/17) [place] (Unverified Allergy, Unknown, 07/06/17) All Systems: reviewed and negative except above Subjective sleepy calm Objective Last 24 Hour Vital Signs Date Time Temp Pulse Resp B/P (MAP) Pulse Ox O2 Delivery O2 Flow Rate FiO2 07/10/17 11:49 98.0 64 16 118/69 92 Room Air 98.0 07/10/17 08:00 97.1 79 16 124/76 91 Room Air 97.1 07/10/17 04:00 97.6 70 20 109/67 100 Room Air 97.6 07/10/17 00:00 97.7 77 20 117/69 96 Room Air 97.7 07/09/17 20:00 97.5 98 20 131/94 93 Room Air 97.5 07/09/17 20:00 82 16 Room Air 21 07/09/17 16:00 97.3 72 20 124/91 93 Room Air 97.3 Intake and Output 07/09/17 07/10/17 19:00 07:00 Intake Total 300 ml 350 ml Balance 300 ml 350 ml Intake Oral 300 ml Tube Feeding 350 ml # Voids 5 2 Laboratory Tests 07/10/17 05:40: White Blood Count 7.2, Red Blood Count 4.50, Hemoglobin 13.8, Hematocrit 42.5, Mean Corpuscular Volume 94, Mean Corpuscular Hemoglobin 30.7, Mean Corpuscular Hemoglobin Concent 32.5, Red Cell Distribution Width 15.6H, Platelet Count 237, Mean Platelet Volume 7.1, Neutrophils (%) (Auto) 45.4, Lymphocytes (%) (Auto) 40.0, Monocytes (%) (Auto) 9.7, Eosinophils (%) (Auto) 4.2H, Basophils (%) (Auto ) 0.7, Sodium Level 140, Potassium Level 4.2, Chloride Level 102, Carbon Dioxide Level 30, Anion Gap 8, Blood Urea Nitrogen 19H, Creatinine 0.8, Estimat Glomerular Filtration Rate > 60, Glucose Level 101, Calcium Level 9.5, Phosphorus Level 4.1, Magnesium Level 1.7L, Total Bilirubin 0.3, Aspartate Amino Transf (AST/SGOT) 22, Alanine Aminotransferase (ALT/SGPT) 28, Alkaline Phosphatase 79, Total Protein 7.3, Albumin 2.8L, Globulin 4.5, Albumin/Globulin Ratio 0.6L Height (Feet): 5 Height (Inches): 4.00 Weight (Pounds): 247 General Appearance: alert EENT: normal ENT inspection Neck: normal alignment Cardiovascular: normal peripheral pulses, normal rate, regular rhythm Respiratory/Chest: chest wall non-tender, lungs clear, normal breath sounds Abdomen: normal bowel sounds, non tender, soft Extremities: normal inspection Edema: no edema noted Arm (L), no edema noted Arm (R), no edema noted Leg (L), no edema noted Leg (R), no edema noted Pedal (L), no edema noted Pedal (R), no edema noted Generalized Neurologic: motor weakness Skin: normal pigmentation, warm/dry Objective l stump dressing c&d ANN DONALDSON Jul 10, 2017 13:03
[2017-07-10] MEDS ORDERED: LEVAQUIN750 MG ORAL (13:40)
--- NOTE | 2017-07-10 14:48 | Pulmonology Progress Note ---
Assessment/Plan Problems: (1) Cellulitis (2) HTN (hypertension) (3) Morbid obesity (4) S/P BKA (below knee amputation) unilateral (5) Chronic pain Assessment/Plan doing much better pain management, pain is much better iv abx check cultures wound care Oxycodone PO DVT prophylaxis. Subjective ROS Limited/Unobtainable: No HEENT: Repors: no symptoms Respiratory: Reports: no symptoms Allergies: Coded Allergies: Grits (Unverified Allergy, Unknown, 07/06/17) [place] (Unverified Allergy, Unknown, 07/06/17) Objective Last 24 Hour Vital Signs Date Time Temp Pulse Resp B/P (MAP) Pulse Ox O2 Delivery O2 Flow Rate FiO2 07/10/17 11:49 98.0 64 16 118/69 92 Room Air 98.0 07/10/17 08:00 97.1 79 16 124/76 91 Room Air 97.1 07/10/17 04:00 97.6 70 20 109/67 100 Room Air 97.6 07/10/17 00:00 97.7 77 20 117/69 96 Room Air 97.7 07/09/17 20:00 97.5 98 20 131/94 93 Room Air 97.5 07/09/17 20:00 82 16 Room Air 21 07/09/17 16:00 97.3 72 20 124/91 93 Room Air 97.3 Intake and Output 07/09/17 07/10/17 19:00 07:00 Intake Total 300 ml 350 ml Balance 300 ml 350 ml Intake Oral 300 ml Tube Feeding 350 ml # Voids 5 2 Objective General Appearance: WN/WD Lines, tubes and drains: peripheral HEENT: normocephalic, atraumatic Neck: non-tender, normal alignment Respiratory/Chest: chest wall non-tender, lungs clear Cardiovascular/Chest: normal peripheral pulses, no JVD Abdomen: normal bowel sounds, non tender Genitourinary/Rectal: normal genital exam Extremities: normal range of motion Skin Exam: normal pigmentation Microbiology Date/Time Source Procedure Growth Status 07/08/17 08:00 Blood Blood Culture - Preliminary NO GROWTH AFTER 24 HOURS Resulted 07/08/17 07:48 Blood Blood Culture - Preliminary NO GROWTH AFTER 24 HOURS Resulted Laboratory Tests 07/10/17 05:40: White Blood Count 7.2, Red Blood Count 4.50, Hemoglobin 13.8, Hematocrit 42.5, Mean Corpuscular Volume 94, Mean Corpuscular Hemoglobin 30.7, Mean Corpuscular Hemoglobin Concent 32.5, Red Cell Distribution Width 15.6H, Platelet Count 237, Mean Platelet Volume 7.1, Neutrophils (%) (Auto) 45.4, Lymphocytes (%) (Auto) 40.0, Monocytes (%) (Auto) 9.7, Eosinophils (%) (Auto) 4.2H, Basophils (%) (Auto ) 0.7, Sodium Level 140, Potassium Level 4.2, Chloride Level 102, Carbon Dioxide Level 30, Anion Gap 8, Blood Urea Nitrogen 19H, Creatinine 0.8, Estimat Glomerular Filtration Rate > 60, Glucose Level 101, Calcium Level 9.5, Phosphorus Level 4.1, Magnesium Level 1.7L, Total Bilirubin 0.3, Aspartate Amino Transf (AST/SGOT) 22, Alanine Aminotransferase (ALT/SGPT) 28, Alkaline Phosphatase 79, Total Protein 7.3, Albumin 2.8L, Globulin 4.5, Albumin/Globulin Ratio 0.6L Current Medications Medications (Trade) Dose Ordered Sig/William Route PRN Reason Start Time Stop Time Status Last Admin Dose Admin Acetaminophen (Tylenol) 650 mg Q4H PRN ORAL fever 07/07/17 06:30 08/06/17 06:29 Albuterol/ Ipratropium (Albuterol/ Ipratropium) 3 ml EVERY 4 HOURS PRN HHN Shortness of Breath 07/07/17 06:30 07/12/17 06:29 Aspirin (ASA) 325 mg DAILY ORAL 07/07/17 09:00 08/06/17 08:59 07/10/17 10:12 Baclofen (Lioresal) 10 mg TWICE A DAY PRN ORAL For Muscle Pain 07/07/17 06:15 08/06/17 06:14 Clonazepam (KlonoPIN) 2 mg Q6H PRN ORAL For Anxiety 07/07/17 04:00 07/14/17 03:59 07/10/17 12:46 Clotrimazole (Lotrimin) 1 applic TWICE A DAY TOPIC 07/07/17 18:00 08/06/17 17:59 07/10/17 10:13 Dextrose (Dextrose 50%) STAT PRN IV Hypoglycemia 07/07/17 06:30 08/06/17 06:29 Diphenhydramine HCl (Benadryl) 25 mg Q6H PRN ORAL Itching 07/07/17 06:15 08/06/17 06:14 Docusate Sodium (Colace) 100 mg DAILY ORAL 07/07/17 09:00 08/06/17 08:59 07/10/17 10:12 Guaifenesin/ Dextromethorphan (Robitussin DM Syrup) 15 ml Q6H PRN ORAL For Cough 07/07/17 16:30 08/06/17 16:29 07/09/17 03:51 Heparin Sodium (Porcine) (Heparin 5000 units/ml) 5,000 units EVERY 12 HOURS SUBQ 07/07/17 09:00 08/06/17 08:59 07/10/17 10:13 Levofloxacin (Levaquin) 750 mg DAILY@1000 ORAL 07/11/17 10:00 07/11/17 23:59 Magnesium Hydroxide (Mom) 30 ml DAILYPRN PRN ORAL Constipation 07/07/17 06:15 08/06/17 06:14 Nitroglycerin (Ntg) 0.4 mg Q5M PRN SL Prn Chest Pain 07/07/17 06:30 08/06/17 06:29 Olanzapine (ZyPREXA Zydis) 5 mg BID ORAL 07/07/17 09:00 08/06/17 08:59 07/10/17 10:12 Ondansetron HCl (Zofran) 4 mg Q6H PRN IVP Nausea & Vomiting 07/07/17 06:30 08/06/17 06:29 Oxycodone HCl (Roxicodone) 30 mg Q6H PRN ORAL Severe Pain (Pain Scale 7-10) 07/09/17 14:30 07/14/17 14:29 07/10/17 10:22 Polyethylene Glycol (Miralax) 17 gm DAILYPRN PRN ORAL Constipation 07/07/17 06:30 08/06/17 06:29 Temazepam (Restoril) 15 mg HSPRN PRN ORAL Insomnia 07/07/17 06:30 07/14/17 06:29 07/09/17 21:46 Tramadol HCl (Ultram) 50 mg Q6H PRN ORAL Moderate Pain (Pain Scale 4-6) 07/07/17 06:15 07/14/17 06:14 07/10/17 12:45 Zinc Sulfate (Zinc Sulfate) 220 mg DAILY ORAL 07/07/17 09:00 08/06/17 08:59 07/10/17 10:12 Mich Osborne MD Jul 10, 2017 14:48
--- NOTE | 2017-07-10 17:30 | Progress Note ---
DATE: 07/10/2017 SUBJECTIVE: The patient is a 57-year-old female patient, status post wound care, but she continues to have some mood lability, confusion, disorganized thought process, and mood lability worsened by stress of her medical illness. That is why, her attending physician has requested daily psychiatric consultation. MENTAL STATUS EXAMINATION: This is a female patient who is disheveled. Appearance disheveled. Attitude irritable and agitated. Affect guarded and restricted. Intellect poor. Mood depressed and anxious. Motor activity, psychomotor agitation. Attention span is poor. Orientation x2. Speech is pressured. Thought process disorganized and illogical. Thought content, she does have some auditory hallucinations and paranoia. Insight and judgement is poor. DIAGNOSES: Bipolar 2, paranoid schizophrenia, acute exacerbation. PLAN: Plan is to continue stabilize her mood. Provide behavioral management and encouraged her to interact appropriately with staff and the patient and provide behavioral management and encouraged her to interact appropriately with staff and other patients. Provided 18 to 20 minutes of supportive therapy and encourage her to interact appropriately with staff. Chart reviewed. Discussed with staff. Rosa Cheatham M.D. DR: OLEGARIO JOB#: [id number] CC:
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
== END 2017-07-10 17:09 | DRG 564 ==
LOC: EDBD 23:02 → EMR 23:25 → 4E 07-07 00:17 → EDBEDREQ 07-07 00:30
DX: T87.81 Dehiscence of amputation stump (principal); J18.9 Pneumonia, unspecified organism; F20.0 Paranoid schizophrenia; F31.81 Bipolar II disorder; Y83.5 Amputation of limb(s) as the cause of abnormal reaction of the patient, or of later complication, without mention of misadventure at the time of the procedure; E66.01 Morbid (severe) obesity due to excess calories; I10 Essential (primary) hypertension; G89.29 Other chronic pain; F41.9 Anxiety disorder, unspecified
CPT/HCPCS: 36415; 71045; 80048; 80053; 83735; 84100; 85025; 87040; 87070; 87081; 87181; 87205; 93970; 94664; 99285; S0077

== ENCOUNTER 2018-05-30 12:03 | Inpatient (IN) | payer MEDICARE, MEDICAID ==
[~2018-05-30] VITALS: Ht 162.6 cm; Wt 86.8 kg
[~2018-05-30 12:03] MED LIST changes: +DULCOLAX10 MG RC; +FLEET ENEMA133 ML RECTAL; +LEVAQUIN750 MG ORAL; +MILK OF MA400 MG/51 ORAL; +PRO-STAT LIQUID30 ML ORAL; +TYLENOL EXTRA500 MG ORAL; +VITAMIN C500 M1 ORAL; +ZYPREXA5 MG ORAL
--- NOTE | 2018-05-30 12:08 | NUR ---
ED Nurse Note: pt brought in by KAMINI from [facility] c/o vomiting x 3 started today, pt reports nausea and generalized body ache. no active vomiting noted at this time. pt AA&xo4, gcs=15, skin warm and dry, resp even and unlabored on RA, +N, -v/d, will cont monitor.
[2018-05-30 12:10] VITALS: BP 115/81
--- NOTE | 2018-05-30 12:10 | NUR ---
ADDENDUM active BS, sinus tach on supervisor pig machine, afebrile, vss, o2sat in triage 87% but pt denies sob nor resp distress but does state she has nasal congestion and has pneumonia/bronchitis. noted LS=rhonchi. pt o2sat currently 93% on RA, no accessory muscle use, RR=18, cap refill <3sec. L BKA noted.
--- NOTE | 2018-05-30 12:15 | NUR ---
ED Nurse Note: pt states she doesn't have to go restroom, will try again for urine sample.
--- NOTE | 2018-05-30 12:27 | Emergency Room Report ---
History of Present Illness General Chief Complaint: Vomiting Source: Patient, Medical Record Present Illness HPI Patient present with complaints of ongoing vomiting and diarrhea She reports some epigastric discomfort and cramping sensation patient also reports cough Denies any flank pain Patient reports that she has diffuse body ache as well Denies any focal weakness denies any fall or trauma denies any recent travel Denies any blood in the stool Allergies: Coded Allergies: Grits (Unverified Allergy, Unknown, 07/06/17) [place] (Unverified Allergy, Unknown, 07/06/17) Patient History Past Medical History: see triage record Pertinent Family History: none Reviewed Nursing Documentation: PMH: Agreed; PSxH: Agreed Nursing Documentation-PMH Hx Hypertension: Yes - edema, osteomyelitis, HTN Hx Cancer: No Hx Gastrointestinal Problems: No Hx Seizures: Yes Review of Systems All Other Systems: negative except mentioned in HPI Physical Exam Vital Signs Date Time Temp Pulse Resp B/P (MAP) Pulse Ox O2 Delivery O2 Flow Rate FiO2 05/30/18 12:03 99.0 108 16 123/87 87 Room Air Sp02 EP Interpretation: reviewed, normal General Appearance: well appearing, no apparent distress Head: normocephalic, atraumatic Eyes: bilateral eye PERRL, bilateral eye EOMI ENT: hearing grossly normal, TMs + canals normal, uvula midline, dry mucus membranes Neck: full range of motion, supple, no meningismus, no bony tend Respiratory: lungs clear, normal breath sounds, no rhonchi, no respiratory distress, no retraction, no accessory muscle use Cardiovascular #1: normal peripheral pulses, regular rate, rhythm, no edema, no gallop, no JVD, no murmur Gastrointestinal: normal bowel sounds, non tender, soft, no mass, no organomegaly, non-distended, no guarding, no hernia, no pulsatile mass, no rebound Genitourinary: no CVA tenderness Musculoskeletal: other - Left [id number] amputation, left hand trigger finger Neurologic: oriented x3, responsive, community organization director III-XII nml as tested, motor strength/ tone normal, sensory intact Psychiatric: mood/affect normal Skin: palpation normal, other - Poor turgor Lymphatic: normal inspection, no adenopathy Medical Decision Making Diagnostic Impression: Primary Impression: Vomiting Additional Impression: Sepsis ER Course With the history exam and presentation, multiple differentials considered, including but not limited to appendicitis, gastritis, cholecystitis, diverticulitis Patient also had cardiac, cardiopulmonary pathology also entertained Patient's white blood cell count is significantly elevated Urine sample does show infectious pathology Patient's abdomen remains soft however given the elevated white blood cell count imaging was obtained Multiple differentials obtained and reported on the findings Patient requires inpatient care general surgery also consulted Labs Test 05/30/18 12:20 05/30/18 12:25 White Blood Count 24.4 K/UL (4.8-10.8) Red Blood Count 4.84 M/UL (4.20-5.40) Hemoglobin 15.5 G/DL (12.0-16.0) Hematocrit 46.3 % (37.0-47.0) Mean Corpuscular Volume 96 FL (80-99) Mean Corpuscular Hemoglobin 32.0 PG (27.0-31.0) Mean Corpuscular Hemoglobin Concent 33.4 G/DL (32.0-36.0) Red Cell Distribution Width 12.5 % (11.6-14.8) Platelet Count 233 K/UL (150-450) Mean Platelet Volume 7.6 FL (6.5-10.1) Neutrophils (%) (Auto) % (45.0-75.0) Lymphocytes (%) (Auto) % (20.0-45.0) Monocytes (%) (Auto) % (1.0-10.0) Eosinophils (%) (Auto) % (0.0-3.0) Basophils (%) (Auto) % (0.0-2.0) Differential Total Cells Counted 100 Neutrophils % (Manual) 83 % (45-75) Lymphocytes % (Manual) 9 % (20-45) Monocytes % (Manual) 8 % (1-10) Eosinophils % (Manual) 0 % (0-3) Basophils % (Manual) 0 % (0-2) Band Neutrophils 0 % (0-8) Platelet Estimate Adequate Platelet Morphology Normal Red Blood Cell Morphology Normal Sodium Level 134 MMOL/L (136-145) Potassium Level 3.3 MMOL/L (3.5-5.1) Chloride Level 97 MMOL/L (98-107) Carbon Dioxide Level 29 MMOL/L (21-32) Anion Gap 8 mmol/L (5-15) Blood Urea Nitrogen 12 mg/dL (7-18) Creatinine 0.9 MG/DL (0.55-1.30) Estimat Glomerular Filtration Rate > 60 mL/min (>60) Glucose Level 135 MG/DL (74-106) Calcium Level 10.3 MG/DL (8.5-10.1) Total Bilirubin 0.7 MG/DL (0.2-1.0) Aspartate Amino Transf (AST/SGOT) 13 U/L (15-37) Alanine Aminotransferase (ALT/SGPT) 11 U/L (12-78) Alkaline Phosphatase 74 U/L (46-116) Total Protein 8.0 G/DL (6.4-8.2) Albumin 2.9 G/DL (3.4-5.0) Globulin 5.1 g/dL Albumin/Globulin Ratio 0.6 (1.0-2.7) Lipase 66 U/L (73-393) Urine Color Yellow Urine Appearance Clear Urine pH 6 (4.5-8.0) Urine Specific [place] 1.005 (1.005-1.035) Urine Protein 1+ (NEGATIVE) Urine Glucose (UA) Negative (NEGATIVE) Urine Ketones 1+ (NEGATIVE) Urine Blood 2+ (NEGATIVE) Urine Nitrite Positive (NEGATIVE) Urine Bilirubin Negative (NEGATIVE) Urine Urobilinogen Normal MG/DL (0.0-1.0) Urine Leukocyte Esterase 3+ (NEGATIVE) Urine RBC 2-4 /HPF (0 - 2) Urine WBC 15-20 /HPF (0 - 2) Urine Squamous Epithelial Cells Few /LPF (NONE/OCC) Urine Bacteria Many /HPF (NONE) Rhythm Strip Diag. Results EP Interpretation: yes Rate: 80 Rhythm: NSR, no PVC's, no ectopy Chest X-Ray Diagnostic Results Chest X-Ray Diagnostic Results : Chest X-Ray Ordered: Yes # of Views/Limited/Complete: 1 View Indication: Chest Pain EP Interpretation: Yes Interpretation: no consolidation, no effusion, no pneumothorax Impression: No acute disease Other X-Ray Diagnostic Results Other X-Ray Diagnostic Results : X-Ray ordered: kub # of Views/Limited Vs Complete: 1 View Indication: Pain EP Interpretation: Yes Interpretation: no soft tissue swelling, nonspecific bowel gas, no sbo Impression: No acute disease Electronically Signed by: Isela Villatoro, DO CT/MRI/US Diagnostic Results CT/MRI/US Diagnostic Results : Impression CT abdomen pelvisImpression: Moderate left hydronephrosis and hydroureter. Level of obstruction appears to be at the level of the left ureteropelvic junction. No definite obstructing mass or stone demonstrated, although there does appear to be slight thickening of the bladder wall in this region. Marked perinephric and periureteral fat stranding. This most likely represents associated acute pyelonephritis given reported clinical history of such, although could also represent fat stranding from acute urinary obstruction. 5 cm low-attenuation lesion demonstrating slightly higher than normal fluid attenuation coming off of the upper pole left kidney. This most likely represents a complex possibly proteinaceous cyst, but necrotic solid mass also possible. Recommend further evaluation with ultrasound to assess its cystic or solid Hypertrophy left adrenal, probably reactive secondary to the adjacent inflammation Subcentimeter low-attenuation hyperattenuating lesions coming off the right kidney, too small to definitively characterize although suspect proteinaceous cysts The above findings are in agreement with the [facility] preliminary report Markedly thickened endometrium. This could represent fluid or neoplasm. Further evaluation with pelvic sonography is recommended. This finding was not reported on the [facility] preliminary report, was discussed by phone with Dr. Freeman at the time of interpretation. [facility] was also informed via their website Incidental findings as noted, including right lung bulla, dependent basilar pulmonary atelectatic changes, postsurgical changes of the lumbar spine, degenerative spondylosis, right hip degenerative changes Last Vital Signs Date Time Temp Pulse Resp B/P (MAP) Pulse Ox O2 Delivery O2 Flow Rate FiO2 05/30/18 12:03 99.0 108 16 123/87 87 Room Air Status: improved Disposition: ADMITTED INPATIENT Condition: Critical Isela Villatoro DO May 30, 2018 12:27
[2018-05-30] MEDS ORDERED: Morphine Sulfate 4mg/ml Inj (IV USE ONLY) IVP ONE (12:30)
--- NOTE | 2018-05-30 12:32 | NUR ---
HAND-OFF: Report given to GUZMAN Fabian and endorsed care.
--- NOTE | 2018-05-30 12:33 | NUR ---
ED Nurse Note: xray at the bedside
[2018-05-30 12:56] LABS: HEMATOCRIT 46.3 % (37.0-47.0); HEMOGLOBIN 15.5 G/DL (12.0-16.0); MEAN CORPUSCULAR VOLUME 96 FL (80-99); PLATELET COUNT 233 K/UL (150-450); RED BLOOD COUNT 4.84 M/UL (4.20-5.40); RED CELL DISTRIBUTION WIDTH 12.5 % (11.6-14.8)
[2018-05-30 12:57] LABS: WHITE BLOOD COUNT 24.4 K/UL (4.8-10.8)
[2018-05-30 12:59] LABS: ANION GAP 8 mmol/L (5-15); BLOOD UREA NITROGEN 12 mg/dL (7-18); CALCIUM 10.3 MG/DL (8.5-10.1); CARBON DIOXIDE 29 MMOL/L (21-32); CHLORIDE 97 MMOL/L (98-107); CREATININE 0.9 MG/DL (0.55-1.30); POTASSIUM 3.3 MMOL/L (3.5-5.1); SODIUM 134 MMOL/L (136-145)
[2018-05-30 13:03] LABS: ALANINE AMINOTRANSFERASE 11 U/L (12-78); ALBUMIN 2.9 G/DL (3.4-5.0); ALBUMIN/GLOBULIN RATIO 0.6 (1.0-2.7); ALKALINE PHOSPHATASE 74 U/L (46-116); ASPARTATE AMINO TRANSFERASE 13 U/L (15-37); BILIRUBIN,TOTAL 0.7 MG/DL (0.2-1.0)
[2018-05-30 13:04] LABS: APPEARANCE,URINE CLEAR; BILIRUBIN, URINE NEGATIVE (NEGATIVE); GLUCOSE, URINE (UA) NEGATIVE (NEGATIVE); KETONES,URINE 1+ (NEGATIVE); LEUKOCYTE ESTERASE ,URINE 3+ (NEGATIVE); NITRITE,URINE POSITIVE (NEGATIVE); PH,URINE 6 (4.5-8.0); PROTEIN,URINE 1+ (NEGATIVE); UROBILINOGEN,URINE NORMAL MG/DL (0.0-1.0)
[2018-05-30 13:15] LABS: COLOR,URINE YELLOW
[2018-05-30] MEDS ORDERED: Sodium Chloride 2,600 ML IVLG ONE (13:15)
[2018-05-30] MEDS ORDERED: Piperacillin/Tazobactam 3.375 GM in NS 110 ML IVPB ONE (13:15)
[2018-05-30 13:34] VITALS: BP 100/67
--- NOTE | 2018-05-30 13:52 | NUR ---
ED Nurse Note: Pt. went down to CT
--- NOTE | 2018-05-30 14:39 | NUR ---
ED Nurse Note: report given to Alejandro
--- NOTE | 2018-05-30 15:00 | NUR ---
NURSE NOTES: Admitted 57y/o female under dr. lora with n/v/dehydration. pt is a/ox4, breathing regular and unlabored. pt is (L)BKA. Able to turn self with slight assist. Able to make needs. denies n/v at this time. Full body assessment done and no noted with any skin issue. Iv intact and patent. Bed in lowest position. call light within reach at all time. Called Dr. lora and received new admit order. will continue to monitor. all belongings checked and kept at bedside.
[2018-05-30] MEDS ORDERED: KLONOPIN1 MG ORAL (15:43)
[2018-05-30] MEDS ORDERED: CYMBALTA60 MG ORAL (15:43)
[2018-05-30] MEDS ORDERED: MULTIVITAMINS1 EAC2 ORAL (15:43)
[2018-05-30] MEDS ORDERED: GABAPENTIN100 MG ORAL (15:43)
[2018-05-30] MEDS ORDERED: TRAZODONE HCL150 MG ORAL (15:43)
[2018-05-30] MEDS ORDERED: Milk of Magnesia 30ml Ud ORAL PRN (15:45)
--- NOTE | 2018-05-30 15:50 | Consultation ---
Consult Note Consult Note Asked to eval for fluid management Patient present with complaints of ongoing vomiting and diarrhea She reports some epigastric discomfort and cramping sensation patient also reports cough Denies any flank pain Patient reports that she has diffuse body ache as well Denies any focal weakness denies any fall or trauma denies any recent travel Denies any blood in the stool Allergies: Grits (Unverified Allergy, Unknown, 07/06/17) [place] (Unverified Allergy, Unknown, 07/06/17) Hx Hypertension: Yes - edema, osteomyelitis, HTN Hx Seizures: Yes Assessment/Plan Dehydration UTI HypoNatremia, Hypokalemia, Proteinuria, HypoAlbuminemia HTN Sz disorder IV fluids Monitor renal parameters Antibiotics Gastric support Derrell Hatch MD May 30, 2018 15:50
[2018-05-30 16:00] VITALS: BP 110/74
[2018-05-30] MEDS: Sucralfate 1gm tab ORAL SCH ×2 (17:18→21:02)
[2018-05-30] MEDS: Docusate 100mg cap ORAL SCH (17:18)
--- NOTE | 2018-05-30 19:09 | NUR ---
HAND-OFF: Report given to GUZMAN Greenwood.
[2018-05-30 20:00] VITALS: BP 104/70
[2018-05-30] MEDS: cefTRIAXone 1gm/D5W 55ml IVPB SCH ×2 (20:17)
--- NOTE | 2018-05-30 20:45 | Consultation ---
DATE OF CONSULTATION: 05/30/2018 UROLOGY CONSULTATION CONSULTING PHYSICIAN: Fernando Daley M.D. ATTENDING/REFERRING PHYSICIAN: Isela Rubio M.D. CHIEF COMPLAINT/HISTORY OF PRESENT ILLNESS: I was asked by Dr. Rubio to evaluate this unfortunate 57-year-old female regarding history of obstructive moderate left hydroureteronephrosis in the setting of urinary tract infection and likely pyelonephritis. Briefly, the patient has a history of multiple medical issues. She lives in a nursing facility and presented with a history of ongoing nausea, vomiting, and diarrhea. This is the source of some epigastric discomfort and pain. She was admitted to the hospital. She was found to have an elevated white blood cell count and evidence of urinary tract infection. CT scan revealed the findings described above without evidence of an obstructing stone or extrinsic compression. Given the above, I was asked to evaluate the patient. PAST MEDICAL HISTORY: 1. Osteomyelitis. 2. Hypertension. 3. Edema. 4. Seizures. 5. Previous urinary tract infection. MEDICATIONS: Please see the chart for current medication administration details. The patient received a dose of Zosyn once earlier today. ALLERGIES: Include . No known drug allergies. SOCIAL HISTORY: Unremarkable for tobacco, alcohol, or drug use. The patient lives in a nursing facility. FAMILY HISTORY: Noncontributory. REVIEW OF SYSTEMS: A 14-system review of systems was not remarkable outside what is described above. PHYSICAL EXAMINATION: GENERAL: The patient is an older female, resting comfortably, in no obvious distress. HEENT: NC/AT. Oropharynx is clear. NECK: Supple. CHEST: Within normal limits. ABDOMEN: Soft, obese, nontender, and nondistended. EXTREMITIES: Warm and well perfused. No cyanosis, clubbing, or edema. BACK: No CVA tenderness to percussion appreciable at this time. NEUROLOGIC: Grossly nonfocal. LABORATORY DATA: White blood cell count 24.4, hematocrit 46.3, and platelets 233. Sodium 134, potassium 3.3, chloride 97, bicarbonate 29, BUN 12, and creatinine 0.9. Glucose 135. Calcium 10.3. LFTs within normal limits. Urinalysis, specific gravity 1.005, pH 6.0. Dip test is notable for 1+ protein, 1+ ketones, 2+ blood, and positive nitrites and 3+ leukocyte esterase. Microanalysis with 2 to 4 red and 15 to 20 white blood cells per high-power field, and many bacteria seen. Urine culture is pending. DIAGNOSTIC IMAGING: CT scan of the abdomen and pelvis reveals moderate left hydroureteronephrosis with extensive perinephric and periureteral stranding. There are no radiodense stones identified. Other findings per the report. ASSESSMENT AND PLAN: In summary, the patient is a 57-year-old female with a history of abdominal pain associated with nausea, vomiting, and diarrhea. She was found to have an elevated white blood cell count and evidence of urinary tract infection. CT scan reveals left hydroureteronephrosis and perinephric stranding consistent with pyelonephritis. Physical exam is essentially unremarkable. Laboratory data is notable for urinary tract infection, as noted above. I would continue this patient on antibiotics. I will place her on Rocephin in an attempt to broaden her coverage. Additionally, I will order a urine culture for the patient. Antibiotics can be adjusted as warranted by culture results. There is no evidence of an obstruction of the ureter and the hydroureteronephrosis and stranding likely represents reactive change to the pyelonephritis. Thank you for allowing me to participate in the care of this unfortunate lady. Please do not hesitate to contact me for any questions that you may further have regarding her care. I will see her with you as needed. Fernando Daley M.D. DR: OSEAS JOB#: [id number] CC:
[2018-05-30] MEDS ORDERED: TraZODone 100mg tab ORAL SCH (21:00)
[2018-05-30] MEDS: TraZODone 50mg tab ORAL SCH (21:03)
[2018-05-31 00:09] VITALS: BP 131/95
--- NOTE | 2018-05-31 03:15 | History and Physical Report ---
DATE OF ADMISSION: 05/30/2018 HISTORY OF PRESENT ILLNESS: The patient is admitted for nausea, vomiting, and dehydration and also low potassium as well as urinary tract infection. The patient had fever at the alf as well as vomiting. The patient also had leukocytosis. The patient feels weak. The patient does have some epigastric discomfort and cramping. Denies any nausea and vomiting as well. No hematemesis. Did have some low-grade fever at the alf. PAST MEDICAL HISTORY: Significant for hypertension, history of seizures, and also the patient has history of anxiety, mood disorder, psychosis, depression, and history of osteomyelitis of the ankle. PAST SURGICAL HISTORY: Denies. ALLERGIES: . MEDICATIONS: Vitamin C, bisacodyl, Klonopin, Colace, multivitamin, olanzapine, tramadol, zinc sulfate, . SOCIAL HISTORY: She does have a history of smoking, comes from a alf. REVIEW OF SYSTEMS: HEENT: Denies headaches. PULMONARY: Denies shortness of breath. Denies cough. CARDIOVASCULAR: Denies chest pain. GASTROINTESTINAL: No nausea, vomiting, or diarrhea. EXTREMITIES: Cramping. CENTRAL NERVOUS SYSTEM: No change in vision or speech pattern. She is a poor historian. PHYSICAL EXAMINATION: VITAL SIGNS: Temperature 98 degrees, pulse 97, and blood pressure 100/67. HEENT: PERRLA. NECK: Supple. No lymphadenopathy. CHEST: Clear to auscultation. GASTROINTESTINAL: Soft, nontender, and nondistended. EXTREMITIES: Reflexes equal on both sides. No edema. Generalized weakness. CENTRAL NERVOUS SYSTEM: Oriented x1. LABORATORY DATA: WBC of 24.4, hemoglobin 15.5, and platelets 333,000. Sodium 134, potassium 3.3, BUN of 12, and creatinine of 0.9. ASSESSMENT AND PLAN: Hypokalemia. I have asked Dr. Hatch to see the patient for that reason. The patient has hydronephrosis on the CT scan and multiple abnormal findings suggestive the patient for that reason. Dr. Hatch and Dr. Jose Solis to see the patient to rule out sepsis as well as for the treatment of the UTI and Dr. low potassium, and I have asked Dr. Molina and Dr. Hinds to help with the vomiting and abdominal pain to rule out and make sure there is no surgical intervention that needs to be done and antibiotics per Infectious Disease. The patient was given IV fluids the vomiting. Ali Giselle Rubio DR: Aruna JOB#: [id number] CC:
[2018-05-31 04:00] VITALS: BP 127/87
--- NOTE | 2018-05-31 07:14 | NUR ---
NURSE NOTES: Received pt from [facility] with stable condition. pt denies any n/v at this time. Abdomen soft. on CL diet and tolerating well. bed in lowest position. call light within reach at all time.
[2018-05-31 07:19] LABS: BASOPHILS % (AUTO) 0.4 % (0.0-2.0); EOSINOPHILS % (AUTO) 0.4 % (0.0-3.0); HEMATOCRIT 41.4 % (37.0-47.0); HEMOGLOBIN 13.7 G/DL (12.0-16.0); LYMPHOCYTES % (AUTO) 8.1 % (20.0-45.0); MEAN CORPUSCULAR VOLUME 98 FL (80-99); MONOCYTES % (AUTO) 8.6 % (1.0-10.0); NEUTROPHILS % (AUTO) 82.4 % (45.0-75.0); PLATELET COUNT 185 K/UL (150-450); RED BLOOD COUNT 4.22 M/UL (4.20-5.40); RED CELL DISTRIBUTION WIDTH 13.1 % (11.6-14.8); WHITE BLOOD COUNT 16.4 K/UL (4.8-10.8)
--- NOTE | 2018-05-31 07:31 | NUR ---
HAND-OFF: Report given to GUZMAN Cheung.
[2018-05-31 07:57] LABS: ALANINE AMINOTRANSFERASE 18 U/L (12-78); ALBUMIN 2.3 G/DL (3.4-5.0); ALBUMIN/GLOBULIN RATIO 0.5 (1.0-2.7); ALKALINE PHOSPHATASE 73 U/L (46-116); ANION GAP 6 mmol/L (5-15); ASPARTATE AMINO TRANSFERASE 13 U/L (15-37); BILIRUBIN,TOTAL 0.4 MG/DL (0.2-1.0); BLOOD UREA NITROGEN 8 mg/dL (7-18); CALCIUM 9.4 MG/DL (8.5-10.1); CARBON DIOXIDE 30 MMOL/L (21-32); CHLORIDE 104 MMOL/L (98-107); CHOLESTEROL 144 MG/DL (< 200); CREATININE 0.7 MG/DL (0.55-1.30); HDL CHOLESTEROL 8 MG/DL (40-60); POTASSIUM 3.3 MMOL/L (3.5-5.1); SODIUM 140 MMOL/L (136-145); TRIGLYCERIDES 194 MG/DL (30-150)
[2018-05-31 08:00] VITALS: BP 137/88
[2018-05-31 08:17] LABS: PHOSPHORUS 2.1 MG/DL (2.5-4.9)
[2018-05-31] MEDS: DULoxetine 30mg cap ORAL SCH (09:10)
[2018-05-31] MEDS: Docusate 100mg cap ORAL SCH ×2 (09:10→17:01)
[2018-05-31] MEDS: Sucralfate 1gm tab ORAL SCH ×4 (09:12→20:16)
--- NOTE | 2018-05-31 09:21 | NUR ---
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 99.0, Resp. 16, O2Sat 87 on Room Air Sodium 134, Potassium 3.3, Calcium 10.3, WBC 24.4 IS:NS IV x 1L Zofran IVP Morphine IVP Piperacillin Sod. IVP Admitted to MED/SURG DC plan return to [facility]
[2018-05-31] MEDS ORDERED: Potassium Phosphate 30 MM in NS 275 ML IVPB ONE (10:00)
[2018-05-31] MEDS ORDERED: Potassium Phosphate 30 MM in NS 275 ML IV SCH (11:00)
--- NOTE | 2018-05-31 11:19 | GI Initial Consult Note ---
History of Present Illness General Date patient seen: May 31, 2018 Time patient seen: 11:16 Reason for Hospitalization: Vomiting Referring physician: JORGE LUIS HALEY Reason for Consultation: Nausea vomiting Present Illness HPI Patient present with complaints of ongoing vomiting and diarrhea She reports some epigastric discomfort and cramping sensation patient also reports cough Denies any flank pain Patient reports that she has diffuse body ache as well Denies any focal weakness denies any fall or trauma denies any recent travel Denies any blood in the stool GI consulted for reported nausea and vomiting. Initial HPI as noted above. Patient seen, awake alert and oriented x4, no apparent distress, no active signs or symptoms of nausea or vomiting. Patient denies any nausea vomiting or diarrhea. Patient has complaint of current constipation. Abdomen is soft, nontender, nondistended. Labs reviewed; patient presents with leukocytosis white count of 16. No anemia. No transaminitis. Electrolyte imbalance of potassium 3.3 and phosphorus of 2.1. Patient denies any history of endoscopic or colonoscopy. Home Meds Reported Medications Duloxetine Hcl* (CYMBALTA*) 60 Mg Capsule.dr, 60 MG ORAL DAILY, CAP 05/30/18 Multivitamins* (MULTIVITAMINS*) 1 Each Tablet, 1 TAB ORAL DAILY, TAB 0 Refills 05/30/18 Trazodone* (TRAZODONE*) 150 Mg Tablet, 50 MG ORAL BEDTIME, TAB 05/30/18 Trazodone* (TRAZODONE*) 150 Mg Tablet, 50 MG ORAL BEDTIME, TAB 05/30/18 Clonazepam* (KLONOPIN*) 1 Mg Tablet, 1 MG ORAL Q6H, #15 TAB 0 Refills 05/30/18 Gabapentin* (GABAPENTIN*) 100 Mg Capsule, 200 MG ORAL THREE TIMES A DAY, CAP 05/30/18 Levofloxacin* (LEVAQUIN*) 750 Mg Tablet, 750 MG ORAL ONCE for 1 Day, TAB give levaquin on 07/11/17 07/10/17 Olanzapine* (ZYPREXA*) 5 Mg Tablet, 5 MG ORAL BID, TAB 07/10/17 Ascorbic Acid* (VITAMIN C*) 500 Mg Tablet, 500 MG ORAL DAILY, #30 TAB 0 Refills 07/07/17 Acetaminophen* (TYLENOL EXTRA STRENGTH*) 500 Mg Tablet, 1000 MG ORAL Q4HR PRN for Mild Pain/Temp > 100.5, TAB 0 Refills 07/07/17 Amino Acids/Protein Hydrolys (PRO-STAT LIQUID) 30 Ml Liquid.pkt, 30 ML ORAL DAILY, ML 07/07/17 Magnesium Hydroxide* (MILK OF MAGNESIA*) 400 Mg/5 Ml Oral.susp, 30 ML ORAL DAILY PRN for Constipation, ML 07/07/17 Na Phos,M-B/Na Phos,Di-Ba* (FLEET ENEMA*) 133 Ml Enema, 133 ML RECTAL DAILY PRN for Constipation, ML 0 Refills 07/07/17 Bisacodyl (DULCOLAX) 10 Mg Supp.rect, 10 MG RC PRN for Constipation, SUPP 07/07/17 Trimethoprim/Sulfamethoxazole 160/800* (BACTRIM DS TABLET*) 1 Each Tablet, 1 TAB ORAL TWICE A DAY for 14 Days, TAB 06/10/17 Aspirin* (ASPIRIN*) 325 Mg Tablet, 325 MG ORAL DAILY, TAB 05/29/17 Zinc Sulfate (ZINC SULFATE*) 220 Mg Capsule, 220 MG ORAL DAILY, CAP 0 Refills 05/29/17 Tramadol Hcl* (ULTRAM*) 50 Mg Tablet, 50 MG ORAL Q6H PRN for For Pain, #30 TAB 0 Refills 05/29/17 Oxycodone Hcl* (OXYCODONE HCL*) 5 Mg Capsule, 5 MG ORAL Q6H PRN for For Pain, # 30 CAP 0 Refills 05/29/17 Docusate Sodium* (DOCUSATE SODIUM*) 100 Mg Capsule, 100 MG ORAL TWICE A DAY, CAP 05/29/17 Diphenhydramine Hcl* (BENADRYL*) 25 Mg Capsule, 25 MG ORAL Q6H PRN for Itching, CAP 05/29/17 Clonazepam* (KLONOPIN*) 1 Mg Tablet, 1 MG ORAL Q6H, #15 TAB 0 Refills 05/29/17 Baclofen* (BACLOFEN*) 10 Mg Tablet, 10 MG ORAL BID, TAB 05/29/17 Calcium Carbonate/Vitamin D3 (CALCIUM + VITAMIN D TABLET) 1 Each Tablet, 1 EACH PO DAILY, TAB 05/29/17 Med list reviewed/reconciled: Yes Allergies: Coded Allergies: Grits (Unverified Allergy, Unknown, 07/06/17) [place] (Unverified Allergy, Unknown, 07/06/17) Patient History History Provided By: Patient, Medical Record PMH Narrative Past Medical History: see triage record Pertinent Family History: none Reviewed Nursing Documentation: PMH: Agreed; PSxH: Agreed Nursing Documentation-PMH Hx Hypertension: Yes - edema, osteomyelitis, HTN Hx Cancer: No Hx Gastrointestinal Problems: No Hx Seizures: Yes Social History: Denies: smoking, alcohol use, drug use, other Review of Systems All Other Systems: negative except mentioned in HPI Physical Exam Vital Signs Date Time Temp Pulse Resp B/P (MAP) Pulse Ox O2 Delivery O2 Flow Rate FiO2 05/30/18 12:03 99.0 108 16 123/87 87 Room Air Sp02 EP Interpretation: reviewed, normal Labs Laboratory Tests Test 05/30/18 12:20 05/30/18 12:25 05/30/18 14:15 05/31/18 05:55 White Blood Count 24.4 K/UL (4.8-10.8) *H 16.4 K/UL (4.8-10.8) H Red Blood Count 4.84 M/UL (4.20-5.40) 4.22 M/UL (4.20-5.40) Hemoglobin 15.5 G/DL (12.0-16.0) 13.7 G/DL (12.0-16.0) Hematocrit 46.3 % (37.0-47.0) 41.4 % (37.0-47.0) Mean Corpuscular Volume 96 FL (80-99) 98 FL (80-99) Mean Corpuscular Hemoglobin 32.0 PG (27.0-31.0) H 32.5 PG (27.0-31.0) H Mean Corpuscular Hemoglobin Concent 33.4 G/DL (32.0-36.0) 33.1 G/DL (32.0-36.0) Red Cell Distribution Width 12.5 % (11.6-14.8) 13.1 % (11.6-14.8) Platelet Count 233 K/UL (150-450) 185 K/UL (150-450) Mean Platelet Volume 7.6 FL (6.5-10.1) 7.4 FL (6.5-10.1) Neutrophils (%) (Auto) % (45.0-75.0) 82.4 % (45.0-75.0) H Lymphocytes (%) (Auto) % (20.0-45.0) 8.1 % (20.0-45.0) L Monocytes (%) (Auto) % (1.0-10.0) 8.6 % (1.0-10.0) Eosinophils (%) (Auto) % (0.0-3.0) 0.4 % (0.0-3.0) Basophils (%) (Auto) % (0.0-2.0) 0.4 % (0.0-2.0) Differential Total Cells Counted 100 Neutrophils % (Manual) 83 % (45-75) H Lymphocytes % (Manual) 9 % (20-45) L Monocytes % (Manual) 8 % (1-10) Eosinophils % (Manual) 0 % (0-3) Basophils % (Manual) 0 % (0-2) Band Neutrophils 0 % (0-8) Platelet Estimate Adequate Platelet Morphology Normal Red Blood Cell Morphology Normal Sodium Level 134 MMOL/L (136-145) L 140 MMOL/L (136-145) Potassium Level 3.3 MMOL/L (3.5-5.1) L 3.3 MMOL/L (3.5-5.1) L Chloride Level 97 MMOL/L (98-107) L 104 MMOL/L (98-107) Carbon Dioxide Level 29 MMOL/L (21-32) 30 MMOL/L (21-32) Anion Gap 8 mmol/L (5-15) 6 mmol/L (5-15) Blood Urea Nitrogen 12 mg/dL (7-18) 8 mg/dL (7-18) Creatinine 0.9 MG/DL (0.55-1.30) 0.7 MG/DL (0.55-1.30) Estimat Glomerular Filtration Rate > 60 mL/min (>60) > 60 mL/min (>60) Glucose Level 135 MG/DL (74-106) H 105 MG/DL (74-106) Calcium Level 10.3 MG/DL (8.5-10.1) H 9.4 MG/DL (8.5-10.1) Total Bilirubin 0.7 MG/DL (0.2-1.0) 0.4 MG/DL (0.2-1.0) Aspartate Amino Transf (AST/SGOT) 13 U/L (15-37) L 13 U/L (15-37) L Alanine Aminotransferase (ALT/SGPT) 11 U/L (12-78) L 18 U/L (12-78) Alkaline Phosphatase 74 U/L (46-116) 73 U/L (46-116) C-Reactive Protein, Quantitative 54.5 mg/dL (0.00-0.90) H Total Protein 8.0 G/DL (6.4-8.2) 6.9 G/DL (6.4-8.2) Albumin 2.9 G/DL (3.4-5.0) L 2.3 G/DL (3.4-5.0) L Globulin 5.1 g/dL 4.6 g/dL Albumin/Globulin Ratio 0.6 (1.0-2.7) L 0.5 (1.0-2.7) L Lipase 66 U/L (73-393) L Urine Color Yellow Urine Appearance Clear Urine pH 6 (4.5-8.0) Urine Specific [place] 1.005 (1.005-1.035) Urine Protein 1+ (NEGATIVE) H Urine Glucose (UA) Negative (NEGATIVE) Urine Ketones 1+ (NEGATIVE) H Urine Blood 2+ (NEGATIVE) H Urine Nitrite Positive (NEGATIVE) H Urine Bilirubin Negative (NEGATIVE) Urine Urobilinogen Normal MG/DL (0.0-1.0) Urine Leukocyte Esterase 3+ (NEGATIVE) H Urine RBC 2-4 /HPF (0 - 2) H Urine WBC 15-20 /HPF (0 - 2) H Urine Squamous Epithelial Cells Few /LPF (NONE/OCC) Urine Bacteria Many /HPF (NONE) H Lactic Acid Level 0.70 mmol/L (0.4-2.0) Hemoglobin A1c 5.6 % (4.3-6.0) Uric Acid 4.3 MG/DL (2.6-7.2) Phosphorus Level 2.1 MG/DL (2.5-4.9) L Magnesium Level 1.9 MG/DL (1.8-2.4) Pro-B-Type Natriuretic Peptide 278 pg/mL (0-125) H Triglycerides Level 194 MG/DL (30-150) H Cholesterol Level 144 MG/DL (< 200) LDL Cholesterol 77 mg/dL (<100) HDL Cholesterol 8 MG/DL (40-60) L Cholesterol/HDL Ratio 18.0 (3.3-4.4) H Vitamin B12 Level 690 PG/ML (193-986) Folate 21.7 NG/ML (8.6-58.9) Thyroid Stimulating Hormone (TSH) 0.398 uiU/mL (0.358-3.740) General Appearance: well appearing, no apparent distress, alert Head: normocephalic EENT: PERRL/EOMI, normal ENT inspection Neck: supple Respiratory: normal breath sounds, no respiratory distress Cardiovascular: normal rate Gastrointestinal: normal inspection, non tender, soft, normal bowel sounds, non -distended Rectal: deferred Genitourinary: no CVA tenderness Musculoskeletal: normal inspection, back normal Neurologic: normal inspection, alert, oriented x3, responsive Psychiatric: normal inspection, judgement/insight normal, memory normal Skin: normal inspection, normal color, no rash, warm/dry, palpation normal, well hydrated Lymphatic: normal inspection, no adenopathy Current Medications Current Medications Medications (Trade) Dose Ordered Sig/William Route PRN Reason Start Time Stop Time Status Last Admin Dose Admin Acetaminophen (Tylenol) 650 mg Q4H PRN ORAL Mild Pain/Temp > 100.5 05/30/18 15:30 06/29/18 15:29 05/31/18 00:05 Baclofen (Lioresal) 10 mg BID ORAL 05/30/18 18:00 06/29/18 17:59 05/31/18 09:11 Ceftriaxone Sodium 1 gm/ Dextrose 55 ml @ 110 mls/hr Q24H IVPB 05/30/18 20:00 06/06/18 19:59 05/30/18 20:17 Clonazepam (KlonoPIN) 1 mg Q6H ORAL 05/30/18 16:00 06/06/18 15:59 05/31/18 09:12 Dextrose/ Electrolytes 1,000 ml @ 75 mls/hr [id number] IV 05/30/18 16:00 06/29/18 15:59 05/31/18 06:12 Diphenhydramine HCl (Benadryl) 25 mg Q6H PRN ORAL Itching 05/30/18 15:45 06/29/18 15:44 Docusate Sodium (Colace) 100 mg TWICE A DAY ORAL 05/30/18 18:00 06/29/18 17:59 05/31/18 09:10 Duloxetine HCl (Cymbalta) 60 mg DAILY ORAL 05/31/18 09:00 06/30/18 08:59 05/31/18 09:10 Famotidine (Pepcid I.v.) 20 mg Q12HR IVP 05/30/18 21:00 06/29/18 20:59 05/31/18 09:12 Gabapentin (Neurontin) 200 mg THREE TIMES A DAY ORAL 05/30/18 18:00 06/29/18 17:59 05/31/18 09:11 Magnesium Hydroxide (Mom) 30 ml DAILYPRN PRN ORAL Constipation 05/30/18 15:45 06/29/18 15:44 Multivitamins (Multivitamins) 1 tab DAILY ORAL 05/31/18 09:00 06/30/18 08:59 05/31/18 09:10 Ondansetron HCl (Zofran) 4 mg Q6H PRN IV Nausea & Vomiting 05/30/18 15:45 06/29/18 15:44 Potassium Phosphate 30 mm/ Sodium Chloride 285 ml @ 47.5 mls/hr ONCE IV 05/31/18 11:00 05/31/18 13:00 Sucralfate (Carafate) 1 gm FOUR TIMES A DAY ORAL 05/30/18 18:00 06/29/18 17:59 05/31/18 09:12 Trazodone HCl (Desyrel) 50 mg BEDTIME ORAL 05/30/18 21:00 06/29/18 20:59 05/30/18 21:03 GI: Plan Problems: (1) Vomiting (2) Dehydration (3) S/P BKA (below knee amputation) unilateral (4) Anxiety Plan At this time the patient denies any nausea vomiting or diarrhea. Symptomatic treatment Okay to advance diet Electrolyte correction Zofran as needed PPI Follow labs Outpatient GI procedures Discussed with Dr. Hinds. Thank you for this patient referral, we will follow. The patient was seen and examined at bedside and all new and available data was reviewed in the patients chart. I agree with the above findings, impression and plan. (Patient seen earlier today. Signature stamp does not reflect patient encounter time.). - MD Vidhya [facility] CONTINUOUS IMPROVEMENT CONSULTANT May 31, 2018 11:19
--- NOTE | 2018-05-31 11:20 | Diagnostic Imaging Report ---
Indication: Abdominal pain Technique: Spiral acquisitions obtained through the abdomen and pelvis. No oral contrast utilized, per emergency room physician request No IV contrast utilized, per referring physician request.. Multiplanar reconstructions were generated. Total dose length product 1327.56 mGycm. CTDIvol(s) 25.94 mGy. Dose reduction achieved using automated exposure control Comparison: None Findings: There is moderate left hydronephrosis and hydroureter. The hydroureter extends to the level of the ureterovesical junction. No distal ureteral calculus is demonstrated. There is equivocally some thickening of the bladder wall in the region of the ureteral vesicle junction. There is marked stranding of the perinephric fat, particularly surrounding the upper pole. Lack of IV contrast limits assessment of the renal parenchyma. There is a 5 cm low-attenuation lesion, demonstrating slightly higher than normal fluid attenuation extending off of the upper pole. No other definite mass or cyst demonstrated The left adrenal appears diffusely hypertrophic. No intrarenal calculi are demonstrated. No right renal or ureteral calculi. 2 or 3 subcentimeter hyperattenuating lesions are seen coming off of the right kidney no right hydronephrosis or hydroureter demonstrated. The uterus demonstrates marked thickening of the endometrium, measuring approximately 4 cm thick. No adnexal mass demonstrated. Lack of IV contrast limits assessment of the other solid organs. The gallbladder is distended, but does not appear to be thick-walled, and there are no stones and no evidence of pericholecystic stranding. The liver, bile ducts, pancreas, spleen, right adrenal are all unremarkable. The left adrenal is diffusely hypertrophied, as described above. There are prominent abundant but not frankly enlarged retroperitoneal lymph nodes demonstrated. Lack of enteric contrast limits assessment of the GI tract. No evidence of diverticulosis or diverticulitis demonstrated. The appendix is normal. No small bowel distention. No free or loculated intraperitoneal gas or fluid other than the perinephric changes described above is noted. The distal esophagus, stomach, duodenum are unremarkable. The included lung bases demonstrate a bulla in the medial right lung. Dependent atelectatic changes are noted. The bones demonstrate evidence of prior L4 and L5 laminectomies. There are degenerative spondylosis changes noted. There are fairly severe degenerative changes of the right hip. Impression: Moderate left hydronephrosis and hydroureter. Level of obstruction appears to be at the level of the left ureteropelvic junction. No definite obstructing mass or stone demonstrated, although there does appear to be slight thickening of the bladder wall in this region. Marked perinephric and periureteral fat stranding. This most likely represents associated acute pyelonephritis given reported clinical history of such, although could also represent fat stranding from acute urinary obstruction. 5 cm low-attenuation lesion demonstrating slightly higher than normal fluid attenuation coming off of the upper pole left kidney. This most likely represents a complex possibly proteinaceous cyst, but necrotic solid mass also possible. Recommend further evaluation with ultrasound to assess its cystic or solid Hypertrophy left adrenal, probably reactive secondary to the adjacent inflammation Subcentimeter low-attenuation hyperattenuating lesions coming off the right kidney, too small to definitively characterize although suspect proteinaceous cysts The above findings are in agreement with the [facility] preliminary report Markedly thickened endometrium. This could represent fluid or neoplasm. Further evaluation with pelvic sonography is recommended. This finding was not reported on the [facility] preliminary report, was discussed by phone with Dr. Freeman at the time of interpretation. [facility] was also informed via their website Incidental findings as noted, including right lung bulla, dependent basilar pulmonary atelectatic changes, postsurgical changes of the lumbar spine, degenerative spondylosis, right hip degenerative changes The CT scanner at [facility] is accredited by the [employer] and the scans are performed using protocols designed to limit radiation exposure to as low as reasonably achievable to attain images of sufficient resolution adequate for diagnostic evaluation.
--- NOTE | 2018-05-31 11:30 | Diagnostic Imaging Report ---
Indication: Shortness of breath Technique: One view of the chest Comparison: 07/07/2017 Findings: Less optimal inspiration currently. Heart size is upper limits of normal. Lungs and pleural spaces are clear Impression: No acute process
--- NOTE | 2018-05-31 11:31 | Diagnostic Imaging Report ---
Indication: Abdominal pain Technique: Supine view of the abdomen Comparison: none Findings: Bowel gas pattern is unremarkable. No masses or unusual calcifications. There are degenerative changes of the right hip joint Impression: No acute process
[2018-05-31 12:00] VITALS: BP 145/71
[2018-05-31 16:00] VITALS: BP 143/89
--- NOTE | 2018-05-31 16:09 | Nephrology Progress Note ---
Assessment/Plan Problem List: (1) Dehydration (2) Hypoalbuminemia (3) Vomiting (4) Seizure disorder Assessment Dehydration UTI HypoNatremia, Hypokalemia, Proteinuria, HypoAlbuminemia HTN Sz disorder Plan IV fluids K Phos as needed Monitor renal parameters Antibiotics Gastric support Subjective ROS Limited/Unobtainable: No Objective Objective Last 24 Hour Vital Signs Date Time Temp Pulse Resp B/P (MAP) Pulse Ox O2 Delivery O2 Flow Rate FiO2 05/31/18 12:00 98.8 91 18 145/71 (95) 97 05/31/18 09:38 Room Air 05/31/18 08:00 97.9 94 20 137/88 (104) 97 05/31/18 04:00 97.0 87 18 127/87 (100) 97 05/31/18 00:09 98.0 94 19 131/95 (107) 94 05/30/18 22:37 Room Air 05/30/18 20:00 97.7 86 17 104/70 (81) 99 05/30/18 17:50 97.2 Intake and Output 05/30/18 05/31/18 19:00 07:00 Intake Total 1575 ml 1305 ml Output Total 175 ml Balance 1575 ml 1130 ml Intake Oral 500 ml 330 ml IV Total 1075 ml 975 ml Output Urine Total 175 ml Laboratory Tests 05/31/18 05:55: White Blood Count 16.4H, Red Blood Count 4.22, Hemoglobin 13.7, Hematocrit 41.4 , Mean Corpuscular Volume 98, Mean Corpuscular Hemoglobin 32.5H, Mean Corpuscular Hemoglobin Concent 33.1, Red Cell Distribution Width 13.1, Platelet Count 185, Mean Platelet Volume 7.4, Neutrophils (%) (Auto) 82.4H, Lymphocytes ( %) (Auto) 8.1L, Monocytes (%) (Auto) 8.6, Eosinophils (%) (Auto) 0.4, Basophils (%) (Auto) 0.4, Sodium Level 140, Potassium Level 3.3L, Chloride Level 104, Carbon Dioxide Level 30, Anion Gap 6, Blood Urea Nitrogen 8, Creatinine 0.7, Estimat Glomerular Filtration Rate > 60, Glucose Level 105, Hemoglobin A1c 5.6, Uric Acid 4.3, Calcium Level 9.4, Phosphorus Level 2.1L, Magnesium Level 1.9, Total Bilirubin 0.4, Aspartate Amino Transf (AST/SGOT) 13L, Alanine Aminotransferase (ALT/SGPT) 18, Alkaline Phosphatase 73, Pro-B-Type Natriuretic Peptide 278H, Total Protein 6.9, Albumin 2.3L, Globulin 4.6, Albumin/Globulin Ratio 0.5L, Triglycerides Level 194H, Cholesterol Level 144, LDL Cholesterol 77 , HDL Cholesterol 8L, Cholesterol/HDL Ratio 18.0H, Vitamin B12 Level 690, Folate 21.7, Thyroid Stimulating Hormone (TSH) 0.398 Height (Feet): 5 Height (Inches): 4.00 Weight (Pounds): 192 General Appearance: no apparent distress Cardiovascular: tachycardia Respiratory/Chest: decreased breath sounds Abdomen: soft Derrell Hatch MD May 31, 2018 16:09
--- NOTE | 2018-05-31 17:26 | Consultation ---
History of Present Illness General Date patient seen: May 31, 2018 Reason for Hospitalization: Vomiting Present Illness HPI 57 year old female with multiple medical comorbidities presented with abdominal discomfort, nausea and emesis. States ongoing for some time now and intermittent. abdominal discomfort stated to be cramping. Unfortunately she is a poor historian. In ED CT A/P with findings as below. Labs with significant leukocytosis. surgery called to evaluate for possible intrabdominal etiology for leukocytosis, pain/n/v. Patient seen, chart reviewed , patient examined. states since admission feeling better. still with abdominal cramping. no longer with nausea or emesis. +flatus. +BM Allergies: Coded Allergies: Grits (Unverified Allergy, Unknown, 07/06/17) [place] (Unverified Allergy, Unknown, 07/06/17) Medication History Scheduled Amino Acids/Protein Hydrolys (Pro-Stat Liquid), 30 ML ORAL DAILY, (Reported) Ascorbic Acid* (Vitamin C*), 500 MG ORAL DAILY, (Reported) Aspirin* (Aspirin*), 325 MG ORAL DAILY, (Reported) Baclofen* (Baclofen*), 10 MG ORAL BID, (Reported) Calcium Carbonate/Vitamin D3 (Calcium + Vitamin D Tablet), 1 EACH PO DAILY, ( Reported) Clonazepam* (Klonopin*), 1 MG ORAL Q6H, (Reported) Clonazepam* (Klonopin*), 1 MG ORAL Q6H, (Reported) Docusate Sodium* (Docusate Sodium*), 100 MG ORAL TWICE A DAY, (Reported) Duloxetine Hcl* (Cymbalta*), 60 MG ORAL DAILY, (Reported) Gabapentin* (Gabapentin*), 200 MG ORAL THREE TIMES A DAY, (Reported) Levofloxacin* (Levaquin*), 750 MG ORAL ONCE, (Reported) Multivitamins* (Multivitamins*), 1 TAB ORAL DAILY, (Reported) Olanzapine* (Zyprexa*), 5 MG ORAL BID, (Reported) Trazodone* (Trazodone*), 50 MG ORAL BEDTIME, (Reported) Trazodone* (Trazodone*), 50 MG ORAL BEDTIME, (Reported) Trimethoprim/Sulfamethoxazole 160/800* (Bactrim Ds Tablet*), 1 TAB ORAL TWICE A DAY, (Reported) Zinc Sulfate (Zinc Sulfate*), 220 MG ORAL DAILY, (Reported) Scheduled PRN Acetaminophen* (Tylenol Extra Strength*), 1,000 MG ORAL Q4HR PRN for Mild Pain/ Temp > 100.5, (Reported) Bisacodyl (Dulcolax), 10 MG RC for Constipation, (Reported) Diphenhydramine Hcl* (Benadryl*), 25 MG ORAL Q6H PRN for Itching, (Reported) Magnesium Hydroxide* (Milk Of Magnesia*), 30 ML ORAL DAILY PRN for Constipation, (Reported) Na Phos,M-B/Na Phos,Di-Ba* (Fleet Enema*), 133 ML RECTAL DAILY PRN for Constipation, (Reported) Oxycodone Hcl* (Oxycodone Hcl*), 5 MG ORAL Q6H PRN for For Pain, (Reported) Tramadol Hcl* (Ultram*), 50 MG ORAL Q6H PRN for For Pain, (Reported) Patient History Limited by: other History Provided By: Patient, Medical Record, PMD Healthcare decision maker Resuscitation status Full Code Advanced Directive on File Past Medical/Surgical History Past Medical/Surgical History: (1) Edema (2) Osteomyelitis of ankle (3) HTN (hypertension) (4) Cellulitis (5) Sepsis (6) Vomiting (7) Dehydration (8) Anxiety (9) Hypoalbuminemia (10) Seizure disorder Review of Systems Review of Symptoms General ROS: no weight loss or fever Psychological ROS: no depression or mood changes, no memory loss Ophthalmic ROS: no visual changes or eye irritation ENT ROS: no nasal congestion, hearing loss, dizziness Allergy and Immunology ROS: no allergic symptoms or urticaria Hematological and Lymphatic ROS: no swollen glands, unusual bleeding or bruising Endocrine ROS: no polyuria, polydipsia, weight changes, temperature intolerance Respiratory ROS: no cough, shortness of breath, or wheezing Cardiovascular ROS: no chest pain or dyspnea on exertion Gastrointestinal ROS: denies abdominal pain, bright red blood in stool. Musculoskeletal ROS: no myalgias or arthralgias Neurological ROS: no TIA or stroke symptoms Dermatological ROS: no new or changing skin lesions, rashes or pruritis Physical Exam Physical Exam General appearance: alert, cooperative, no distress, appears stated age Head: Normocephalic, without obvious abnormality, atraumatic Eyes: conjunctivae/corneas clear. PERRL, EOM's intact. Fundi benign Throat: Lips, mucosa, and tongue normal. Teeth and gums normal Neck: supple, symmetrical, trachea midline, no adenopathy, thyroid: not enlarged, symmetric, no tenderness/mass/nodules, no carotid bruit and no JVD Lungs: clear to auscultation bilaterally Heart: regular rate and rhythm, S1, S2 normal, no murmur, click, rub or gallop Abdomen: soft, non-tender. Bowel sounds normal. No masses, no organomegaly Extremities: extremities normal, atraumatic, no cyanosis or edema Pulses: 2+ and symmetric Skin: Skin color, texture, turgor normal. No rashes or lesions Neurologic: Grossly normal Last 24 Hour Vital Signs Date Time Temp Pulse Resp B/P (MAP) Pulse Ox O2 Delivery O2 Flow Rate FiO2 05/31/18 12:00 98.8 91 18 145/71 (95) 97 05/31/18 09:38 Room Air 05/31/18 08:00 97.9 94 20 137/88 (104) 97 05/31/18 04:00 97.0 87 18 127/87 (100) 97 05/31/18 00:09 98.0 94 19 131/95 (107) 94 05/30/18 22:37 Room Air 05/30/18 20:00 97.7 86 17 104/70 (81) 99 05/30/18 17:50 97.2 Intake and Output 05/30/18 05/31/18 19:00 07:00 Intake Total 1575 ml 1305 ml Output Total 175 ml Balance 1575 ml 1130 ml Intake Oral 500 ml 330 ml IV Total 1075 ml 975 ml Output Urine Total 175 ml Laboratory Tests Test 05/31/18 05:55 White Blood Count 16.4 K/UL (4.8-10.8) H Red Blood Count 4.22 M/UL (4.20-5.40) Hemoglobin 13.7 G/DL (12.0-16.0) Hematocrit 41.4 % (37.0-47.0) Mean Corpuscular Volume 98 FL (80-99) Mean Corpuscular Hemoglobin 32.5 PG (27.0-31.0) H Mean Corpuscular Hemoglobin Concent 33.1 G/DL (32.0-36.0) Red Cell Distribution Width 13.1 % (11.6-14.8) Platelet Count 185 K/UL (150-450) Mean Platelet Volume 7.4 FL (6.5-10.1) Neutrophils (%) (Auto) 82.4 % (45.0-75.0) H Lymphocytes (%) (Auto) 8.1 % (20.0-45.0) L Monocytes (%) (Auto) 8.6 % (1.0-10.0) Eosinophils (%) (Auto) 0.4 % (0.0-3.0) Basophils (%) (Auto) 0.4 % (0.0-2.0) Sodium Level 140 MMOL/L (136-145) Potassium Level 3.3 MMOL/L (3.5-5.1) L Chloride Level 104 MMOL/L (98-107) Carbon Dioxide Level 30 MMOL/L (21-32) Anion Gap 6 mmol/L (5-15) Blood Urea Nitrogen 8 mg/dL (7-18) Creatinine 0.7 MG/DL (0.55-1.30) Estimat Glomerular Filtration Rate > 60 mL/min (>60) Glucose Level 105 MG/DL (74-106) Hemoglobin A1c 5.6 % (4.3-6.0) Uric Acid 4.3 MG/DL (2.6-7.2) Calcium Level 9.4 MG/DL (8.5-10.1) Phosphorus Level 2.1 MG/DL (2.5-4.9) L Magnesium Level 1.9 MG/DL (1.8-2.4) Total Bilirubin 0.4 MG/DL (0.2-1.0) Aspartate Amino Transf (AST/SGOT) 13 U/L (15-37) L Alanine Aminotransferase (ALT/SGPT) 18 U/L (12-78) Alkaline Phosphatase 73 U/L (46-116) Pro-B-Type Natriuretic Peptide 278 pg/mL (0-125) H Total Protein 6.9 G/DL (6.4-8.2) Albumin 2.3 G/DL (3.4-5.0) L Globulin 4.6 g/dL Albumin/Globulin Ratio 0.5 (1.0-2.7) L Triglycerides Level 194 MG/DL (30-150) H Cholesterol Level 144 MG/DL (< 200) LDL Cholesterol 77 mg/dL (<100) HDL Cholesterol 8 MG/DL (40-60) L Cholesterol/HDL Ratio 18.0 (3.3-4.4) H Vitamin B12 Level 690 PG/ML (193-986) Folate 21.7 NG/ML (8.6-58.9) Thyroid Stimulating Hormone (TSH) 0.398 uiU/mL (0.358-3.740) Height (Feet): 5 Height (Inches): 4.00 Weight (Pounds): 192 Medications Current Medications Medications (Trade) Dose Ordered Sig/William Route PRN Reason Start Time Stop Time Status Last Admin Dose Admin Acetaminophen (Tylenol) 650 mg Q4H PRN ORAL Mild Pain/Temp > 100.5 05/30/18 15:30 06/29/18 15:29 05/31/18 00:05 Baclofen (Lioresal) 10 mg BID ORAL 05/30/18 18:00 06/29/18 17:59 05/31/18 17:01 Ceftriaxone Sodium 1 gm/ Dextrose 55 ml @ 110 mls/hr Q24H IVPB 05/30/18 20:00 06/06/18 19:59 05/30/18 20:17 Clonazepam (KlonoPIN) 1 mg Q6H ORAL 05/30/18 16:00 06/06/18 15:59 05/31/18 17:02 Dextrose/ Electrolytes 1,000 ml @ 75 mls/hr [id number] IV 05/30/18 16:00 06/29/18 15:59 05/31/18 06:12 Diphenhydramine HCl (Benadryl) 25 mg Q6H PRN ORAL Itching 05/30/18 15:45 06/29/18 15:44 Docusate Sodium (Colace) 100 mg TWICE A DAY ORAL 05/30/18 18:00 06/29/18 17:59 05/31/18 17:01 Duloxetine HCl (Cymbalta) 60 mg DAILY ORAL 05/31/18 09:00 06/30/18 08:59 05/31/18 09:10 Famotidine (Pepcid I.v.) 20 mg Q12HR IVP 05/30/18 21:00 4/2/19 20:59 05/31/18 09:12 Gabapentin (Neurontin) 200 mg THREE TIMES A DAY ORAL 05/30/18 18:00 06/29/18 17:59 05/31/18 17:01 Magnesium Hydroxide (Mom) 30 ml DAILYPRN PRN ORAL Constipation 05/30/18 15:45 06/29/18 15:44 Multivitamins (Multivitamins) 1 tab DAILY ORAL 05/31/18 09:00 06/30/18 08:59 05/31/18 09:10 Ondansetron HCl (Zofran) 4 mg Q6H PRN IV Nausea & Vomiting 05/30/18 15:45 06/29/18 15:44 Sucralfate (Carafate) 1 gm FOUR TIMES A DAY ORAL 05/30/18 18:00 06/29/18 17:59 05/31/18 17:01 Trazodone HCl (Desyrel) 50 mg BEDTIME ORAL 05/30/18 21:00 06/29/18 20:59 05/30/18 21:03 Assessment/Plan Problem List: (1) Emesis ICD Codes: R11.10 - Vomiting, unspecified SNOMED: 643638863 Qualifiers: Qualified Codes: R11.2 - Nausea with vomiting, unspecified (2) Abdominal pain Assessment & Plan: generalized abdominal discomfort, nausea, emesis now resolving leukocytosis improved. CT A/P with Moderate left hydronephrosis and hydroureter. Level of obstruction appears to be at the level of the left ureteropelvic junction. No definite obstructing mass or stone demonstrated, although there does appear to be slight thickening of the bladder wall in this region. Marked perinephric and periureteral fat stranding. This most likely represents associated acute pyelonephritis given reported clinical history of such, although could also represent fat stranding from acute urinary obstruction. 5 cm low-attenuation lesion demonstrating slightly higher than normal fluid attenuation coming off of the upper pole left kidney. This most likely represents a complex possibly proteinaceous cyst, but necrotic solid mass also possible. Recommend further evaluation with ultrasound to assess its cystic or solid Hypertrophy left adrenal, probably reactive secondary to the adjacent inflammation Subcentimeter low-attenuation hyperattenuating lesions coming off the right kidney, too small to definitively characterize although suspect proteinaceous cysts Markedly thickened endometrium. This could represent fluid or neoplasm. Further evaluation with pelvic sonography is recommended. UTI -okay for diet as tolerated -Abdominal ultrasound -trend labs -no acute surgical intervention planned' -Abx as per ID -will follow with recs ICD Codes: R10.9 - Unspecified abdominal pain SNOMED: 56744886 Qualifiers: Qualified Codes: R10.9 - Unspecified abdominal pain (3) Sepsis ICD Codes: A41.9 - Sepsis, unspecified organism SNOMED: 60443875 (4) Vomiting Assessment & Plan: resolving ICD Codes: R11.10 - Vomiting, unspecified SNOMED: 721013438 (5) S/P BKA (below knee amputation) unilateral ICD Codes: Z89.519 - Acquired absence of unspecified leg below knee SNOMED: 21265807, 57931923, [id number] Star Molina May 31, 2018 17:26
--- NOTE | 2018-05-31 18:15 | Consultation ---
DATE OF CONSULTATION: 05/31/2018 INFECTIOUS DISEASE CONSULTATION CONSULTING PHYSICIAN: Jose Solis M.D. PRIMARY ATTENDING PHYSICIAN: Isela Rubio M.D. REASON FOR CONSULT: Sepsis and pyelonephritis. HISTORY OF PRESENT ILLNESS: The patient is a 57-year-old white female, who is a group home resident admitted yesterday because of nausea, vomiting, and abdominal pain. The patient was found to have leukocytosis of 24,000 and started to have tachycardia. A CT scan of abdomen and pelvis showed hydroureter, nephrosis, and pyelonephritis. PAST MEDICAL HISTORY: Significant for hypertension and chronic schizophrenia. The patient is status post left below-knee amputation. MEDICATIONS: Potassium phosphate, Cymbalta, multivitamin, Pepcid, trazodone, ceftriaxone, baclofen, Colace, gabapentin, sucralfate, clonazepam, , magnesium hydroxide, and Zofran. She got a dose of Zosyn in the ER. ALLERGIES: Allergic to grits hominy. SOCIAL HISTORY: Smoker. A group home resident. . She states that she has 4 children. REVIEW OF SYSTEMS: No fever. No chills. Does have some nasal congestion and postnasal drip. Nausea and vomiting is better today and can tolerate the liquid diet. There is no dysuria. PHYSICAL EXAMINATION: VITAL SIGNS: Temperature 98.8, pulse 91, and blood pressure 145/71. GENERAL APPEARANCE: Seems to be well developed. No acute distress. HEAD AND NECK: Has poor dentition. HEART: Normal rate. Regular. LUNGS: Clear. ABDOMEN: Soft. There is very mild CVA tenderness in the left side. EXTREMITY: He has left below-knee amputation. NEUROLOGIC: Awake, alert, and responsive. LABORATORY AND DIAGNOSTIC DATA: WBC today 16.4, hemoglobin 13.7, hematocrit 41.4, and platelets is 185,000. Sodium 140, potassium 3.3, chloride 104, bicarbonate 30, BUN 8, creatinine 0.7, and glucose 105. UA showed wbc 15 to 20, leukocyte esterase 3+, and nitrite positive. Urine culture growing gram negative rods. IMPRESSION: Sepsis with leukocytosis and tachycardia. Source of infection seems to be pyelonephritis. The patient has left-sided hydronephrosis and hydroureter that start at the level of urethral pelvic junction. She has hypertension, schizophrenia, and mild hypokalemia. RECOMMENDATION: We will continue with ceftriaxone. We will follow up the urine culture. At the end of my exam, I thank Dr. Rubio for involving me in the care of this patient. Jose Solis M.D. DR: KASI JOB#: [id number] CC:
--- NOTE | 2018-05-31 19:03 | NUR ---
HAND-OFF: Report given to GUZMAN Bailey.
--- NOTE | 2018-05-31 19:35 | NUR ---
NURSE NOTES: Patient resting in bed awake and alert, no s/s distress noted. No N/V at this time, denies any discomfort. Able to make needs known, all needs attended to. Bed in lowest position for safety. Call light within reach.
[2018-05-31 20:00] VITALS: BP 149/92
[2018-05-31] MEDS: TraZODone 50mg tab ORAL SCH (20:16)
[2018-05-31] MEDS: cefTRIAXone 1gm/D5W 55ml IVPB SCH ×2 (20:16)
--- NOTE | 2018-05-31 21:02 | General Progress Note ---
Assessment/Plan Problem List: (1) Vomiting ICD Codes: R11.10 - Vomiting, unspecified SNOMED: 624306061 (2) Dehydration ICD Codes: E86.0 - Dehydration SNOMED: 13706909 (3) Anxiety ICD Codes: F41.9 - Anxiety disorder, unspecified SNOMED: 09955605 (4) Hypoalbuminemia ICD Codes: E88.09 - Other disorders of plasma-protein metabolism, not elsewhere classified SNOMED: 543668743 (5) Seizure disorder ICD Codes: G40.909 - Epilepsy, unspecified, not intractable, without status epilepticus SNOMED: 251058638 (6) Edema ICD Codes: R60.9 - Edema, unspecified SNOMED: 364009790, 673754416 (7) HTN (hypertension) ICD Codes: I10 - Essential (primary) hypertension SNOMED: 18083377 (8) Emesis ICD Codes: R11.10 - Vomiting, unspecified SNOMED: 277021670 Qualifiers: Qualified Codes: R11.2 - Nausea with vomiting, unspecified (9) Abdominal pain ICD Codes: R10.9 - Unspecified abdominal pain SNOMED: 45089481 Qualifiers: Qualified Codes: R10.9 - Unspecified abdominal pain Status: progressing Assessment/Plan seizure disorder reviewed chart and labs htn no vomitting today abdominal pain afebrile Subjective ROS Limited/Unobtainable: Yes Allergies: Coded Allergies: Grits (Unverified Allergy, Unknown, 07/06/17) [place] (Unverified Allergy, Unknown, 07/06/17) Objective Last 24 Hour Vital Signs Date Time Temp Pulse Resp B/P (MAP) Pulse Ox O2 Delivery O2 Flow Rate FiO2 05/31/18 16:00 98.1 91 20 143/89 (107) 97 05/31/18 12:00 98.8 91 18 145/71 (95) 97 05/31/18 09:38 Room Air 05/31/18 08:00 97.9 94 20 137/88 (104) 97 05/31/18 04:00 97.0 87 18 127/87 (100) 97 05/31/18 00:09 98.0 94 19 131/95 (107) 94 05/30/18 22:37 Room Air Intake and Output 05/30/18 05/31/18 19:00 07:00 Intake Total 1575 ml 1305 ml Output Total 175 ml Balance 1575 ml 1130 ml Intake Oral 500 ml 330 ml IV Total 1075 ml 975 ml Output Urine Total 175 ml Laboratory Tests 05/31/18 05:55: White Blood Count 16.4H, Red Blood Count 4.22, Hemoglobin 13.7, Hematocrit 41.4 , Mean Corpuscular Volume 98, Mean Corpuscular Hemoglobin 32.5H, Mean Corpuscular Hemoglobin Concent 33.1, Red Cell Distribution Width 13.1, Platelet Count 185, Mean Platelet Volume 7.4, Neutrophils (%) (Auto) 82.4H, Lymphocytes ( %) (Auto) 8.1L, Monocytes (%) (Auto) 8.6, Eosinophils (%) (Auto) 0.4, Basophils (%) (Auto) 0.4, Sodium Level 140, Potassium Level 3.3L, Chloride Level 104, Carbon Dioxide Level 30, Anion Gap 6, Blood Urea Nitrogen 8, Creatinine 0.7, Estimat Glomerular Filtration Rate > 60, Glucose Level 105, Hemoglobin A1c 5.6, Uric Acid 4.3, Calcium Level 9.4, Phosphorus Level 2.1L, Magnesium Level 1.9, Total Bilirubin 0.4, Aspartate Amino Transf (AST/SGOT) 13L, Alanine Aminotransferase (ALT/SGPT) 18, Alkaline Phosphatase 73, Pro-B-Type Natriuretic Peptide 278H, Total Protein 6.9, Albumin 2.3L, Globulin 4.6, Albumin/Globulin Ratio 0.5L, Triglycerides Level 194H, Cholesterol Level 144, LDL Cholesterol 77 , HDL Cholesterol 8L, Cholesterol/HDL Ratio 18.0H, Vitamin B12 Level 690, Folate 21.7, Thyroid Stimulating Hormone (TSH) 0.398 Height (Feet): 5 Height (Inches): 4.00 Weight (Pounds): 192 Neck: supple Cardiovascular: normal rate Respiratory/Chest: lungs clear Abdomen: soft Isela Rubio MD May 31, 2018 21:01
[2018-06-01] VITALS: BP 125/78
[2018-06-01 04:00] VITALS: BP 137/93
[2018-06-01 07:01] LABS: BASOPHILS % (AUTO) 0.6 % (0.0-2.0); EOSINOPHILS % (AUTO) 1.1 % (0.0-3.0); HEMOGLOBIN 13.8 G/DL (12.0-16.0); LYMPHOCYTES % (AUTO) 10.5 % (20.0-45.0); MEAN CORPUSCULAR VOLUME 99 FL (80-99); MONOCYTES % (AUTO) 9.1 % (1.0-10.0); NEUTROPHILS % (AUTO) 78.8 % (45.0-75.0); PLATELET COUNT 209 K/UL (150-450); RED BLOOD COUNT 4.26 M/UL (4.20-5.40); RED CELL DISTRIBUTION WIDTH 12.8 % (11.6-14.8); WHITE BLOOD COUNT 12.5 K/UL (4.8-10.8)
--- NOTE | 2018-06-01 07:08 | NUR ---
HAND-OFF: Report given to Jonatan HINDS.
[2018-06-01 07:11] LABS: ANION GAP 7 mmol/L (5-15); BLOOD UREA NITROGEN 7 mg/dL (7-18); CALCIUM 9.6 MG/DL (8.5-10.1); CARBON DIOXIDE 29 MMOL/L (21-32); CHLORIDE 107 MMOL/L (98-107); CREATININE 0.7 MG/DL (0.55-1.30); PHOSPHORUS 3.1 MG/DL (2.5-4.9); POTASSIUM 3.5 MMOL/L (3.5-5.1); SODIUM 143 MMOL/L (136-145)
--- NOTE | 2018-06-01 07:41 | NUR ---
NURSE NOTES: Received pt in bed with no sob nor in any form of distress noted. Breathing regular and unlabored. denies any pain at this time. kept clean and comfortable. Call light within reach at all time. will continue to monitor
[2018-06-01 08:00] VITALS: BP 143/95
[2018-06-01] MEDS: Sucralfate 1gm tab ORAL SCH ×4 (08:24→20:37)
[2018-06-01] MEDS: Docusate 100mg cap ORAL SCH ×3 (08:24→16:57)
[2018-06-01] MEDS: DULoxetine 30mg cap ORAL SCH (08:25)
--- NOTE | 2018-06-01 09:03 | Diagnostic Imaging Report ---
Indication: Pelvic pain, evaluation of abnormalities on recent CT Technique: Transabdominal and transvaginal images. Doppler interrogation of the bilateral ovaries Comparison: Reference made to CT scan dated 05/30/2018 Findings: There is measures 9.8 cm length by 5.5 cm AP the endometrium is markedly thickened, measuring up to 4 cm in thickness. This appears to be predominantly around nearly anechoic collection with internal debris and some distal acoustic enhancement, so most likely fluid. The myometrium is unremarkable. The right ovary is visualized only on transabdominal images, measures 1.9 cm in length, demonstrates normal blood flow on Doppler imaging. The left ovary is seen only on the transabdominal images, measures 2.5 cm in length, demonstrates equivocal flow on the color Doppler images. No adnexal mass demonstrated. There is trace free cul-de-sac fluid Impression: The upper fundal endometrium appears to be filled with fluid. This is of uncertain etiology. Gynecological consultation is recommended. Much less likely, this could represent a necrotic submucosal fibroid. Limited visualization of the ovaries, no gross adnexal or ovarian mass. Trace free cul-de-sac fluid. Not physiologic in a postmenopausal female
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
[2018-06-01 12:00] VITALS: BP 138/88
--- NOTE | 2018-06-01 12:23 | Diagnostic Imaging Report ---
Indication: Abdominal pain, abnormal recent abdomen pelvis CT Technique: Cat-scale and duplex images of the upper abdomen were obtained Comparison: CT scan dated 05/30/2018 Findings: Gallbladder is unremarkable, without stones, wall thickening, nor pericholecystic fluid. Sonographic Stevens's sign is negative. Common bile duct measures 5 mm in diameter. No intrahepatic biliary ductal dilatation. Liver demonstrates normal echogenicity, no focal abnormality. Portal vein and hepatic veins are patent. Pancreas is unremarkable. Spleen is unremarkable. Left kidney measures 12.8 cm in length. Right kidney measures 11.5 cm length. Both kidneys demonstrate normal echogenicity. Right kidney demonstrates borderline hydronephrosis. The left kidney demonstrates moderate hydronephrosis, similar in degree to that reported on recent CT scan. The left kidney demonstrates a 4.4 cm simple cyst in the upper pole, corresponding to the lesion seen on recent CT scan. There is a small right renal cyst as well. The bladder demonstrates bilateral ureteral jets. Non-aneurysmal abdominal aorta . Central uterine fluid collection is noted, also described on separate abdomen pelvis ultrasound report Impression: Moderate left hydronephrosis, etiology not demonstrated. This is also described on recent CT scan. Note presence of a left ureteral jet in the bladder despite the presence of hydronephrosis Previously reported left upper pole renal lesion is demonstrated on this exam to represent a 4.4 cm simple cyst Minimal right hydronephrosis, etiology/significance uncertain Small right renal cyst incidentally noted Central uterine fluid collection. Please refer to separate CT abdomen and pelvis report Negative for gallstones or dilated bile ducts
--- NOTE | 2018-06-01 12:24 | Consultation ---
History of Present Illness General Chief Complaint: Vomiting Referring physician: JORGE LUIS HALEY Reason for Consultation: Nausea vomiting Present Illness HPI 57-year-old white female,with hx of admitted for nausea, vomiting, and abdominal pain. the pt is delusional and uncooperative. 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 the pt is not following mds recs the pt was urinating on the floor. the pt has pain seeking behavior. the pt is easily agitated. the pt is illogical Allergies: Coded Allergies: Grits (Unverified Allergy, Unknown, 07/06/17) [place] (Unverified Allergy, Unknown, 07/06/17) Medication History Scheduled Amino Acids/Protein Hydrolys (Pro-Stat Liquid), 30 ML ORAL DAILY, (Reported) Ascorbic Acid* (Vitamin C*), 500 MG ORAL DAILY, (Reported) Aspirin* (Aspirin*), 325 MG ORAL DAILY, (Reported) Baclofen* (Baclofen*), 10 MG ORAL BID, (Reported) Calcium Carbonate/Vitamin D3 (Calcium + Vitamin D Tablet), 1 EACH PO DAILY, ( Reported) Clonazepam* (Klonopin*), 1 MG ORAL Q6H, (Reported) Clonazepam* (Klonopin*), 1 MG ORAL Q6H, (Reported) Docusate Sodium* (Docusate Sodium*), 100 MG ORAL TWICE A DAY, (Reported) Duloxetine Hcl* (Cymbalta*), 60 MG ORAL DAILY, (Reported) Gabapentin* (Gabapentin*), 200 MG ORAL THREE TIMES A DAY, (Reported) Levofloxacin* (Levaquin*), 750 MG ORAL ONCE, (Reported) Multivitamins* (Multivitamins*), 1 TAB ORAL DAILY, (Reported) Olanzapine* (Zyprexa*), 5 MG ORAL BID, (Reported) Trazodone* (Trazodone*), 50 MG ORAL BEDTIME, (Reported) Trazodone* (Trazodone*), 50 MG ORAL BEDTIME, (Reported) Trimethoprim/Sulfamethoxazole 160/800* (Bactrim Ds Tablet*), 1 TAB ORAL TWICE A DAY, (Reported) Zinc Sulfate (Zinc Sulfate*), 220 MG ORAL DAILY, (Reported) Scheduled PRN Acetaminophen* (Tylenol Extra Strength*), 1,000 MG ORAL Q4HR PRN for Mild Pain/ Temp > 100.5, (Reported) Bisacodyl (Dulcolax), 10 MG RC for Constipation, (Reported) Diphenhydramine Hcl* (Benadryl*), 25 MG ORAL Q6H PRN for Itching, (Reported) Magnesium Hydroxide* (Milk Of Magnesia*), 30 ML ORAL DAILY PRN for Constipation, (Reported) Na Phos,M-B/Na Phos,Di-Ba* (Fleet Enema*), 133 ML RECTAL DAILY PRN for Constipation, (Reported) Oxycodone Hcl* (Oxycodone Hcl*), 5 MG ORAL Q6H PRN for For Pain, (Reported) Tramadol Hcl* (Ultram*), 50 MG ORAL Q6H PRN for For Pain, (Reported) Patient History History Provided By: Patient, Medical Record, PMD Healthcare decision maker Resuscitation status Full Code Advanced Directive on File Past Medical/Surgical History Past Medical/Surgical History: (1) Dehydration (2) Anxiety (3) Hypoalbuminemia (4) Seizure disorder (5) Cellulitis (6) Edema (7) HTN (hypertension) (8) Osteomyelitis of ankle (9) Emesis (10) Abdominal pain (11) Sepsis (12) Vomiting (13) Delusional disorder Review of Systems Psychiatric: Reports: prior hx, anxiety, depressed feelings, hallucinations, other - delusion, grandiose type Physical Exam General Appearance: WD/WN, alert, moderate distress, agitated, obese Last 24 Hour Vital Signs Date Time Temp Pulse Resp B/P (MAP) Pulse Ox O2 Delivery O2 Flow Rate FiO2 06/01/18 09:00 Room Air 06/01/18 08:00 97.9 85 18 143/95 (111) 96 06/01/18 04:00 98.5 82 19 137/93 (108) 94 06/01/18 00:00 98.2 87 19 125/78 (94) 94 05/31/18 21:00 Room Air 05/31/18 20:00 98.6 89 17 149/92 (111) 94 05/31/18 16:00 98.1 91 20 143/89 (107) 97 Intake and Output 05/31/18 06/01/18 19:00 07:00 Intake Total 687.5 ml 1030 ml Output Total 500 ml Balance 687.5 ml 530 ml Intake Oral 300 ml IV Total 687.5 ml 730 ml Output Urine Total 500 ml # Voids 4 Laboratory Tests Test 06/01/18 06:05 White Blood Count 12.5 K/UL (4.8-10.8) H Red Blood Count 4.26 M/UL (4.20-5.40) Hemoglobin 13.8 G/DL (12.0-16.0) Hematocrit 42.0 % (37.0-47.0) Mean Corpuscular Volume 99 FL (80-99) Mean Corpuscular Hemoglobin 32.4 PG (27.0-31.0) H Mean Corpuscular Hemoglobin Concent 32.8 G/DL (32.0-36.0) Red Cell Distribution Width 12.8 % (11.6-14.8) Platelet Count 209 K/UL (150-450) Mean Platelet Volume 7.7 FL (6.5-10.1) Neutrophils (%) (Auto) 78.8 % (45.0-75.0) H Lymphocytes (%) (Auto) 10.5 % (20.0-45.0) L Monocytes (%) (Auto) 9.1 % (1.0-10.0) Eosinophils (%) (Auto) 1.1 % (0.0-3.0) Basophils (%) (Auto) 0.6 % (0.0-2.0) Sodium Level 143 MMOL/L (136-145) Potassium Level 3.5 MMOL/L (3.5-5.1) Chloride Level 107 MMOL/L (98-107) Carbon Dioxide Level 29 MMOL/L (21-32) Anion Gap 7 mmol/L (5-15) Blood Urea Nitrogen 7 mg/dL (7-18) Creatinine 0.7 MG/DL (0.55-1.30) Estimat Glomerular Filtration Rate > 60 mL/min (>60) Glucose Level 112 MG/DL (74-106) H Calcium Level 9.6 MG/DL (8.5-10.1) Phosphorus Level 3.1 MG/DL (2.5-4.9) Magnesium Level 1.8 MG/DL (1.8-2.4) Height (Feet): 5 Height (Inches): 4.00 Weight (Pounds): 192 Medications Current Medications Medications (Trade) Dose Ordered Sig/William Route PRN Reason Start Time Stop Time Status Last Admin Dose Admin Acetaminophen (Tylenol) 650 mg Q4H PRN ORAL Mild Pain/Temp > 100.5 05/30/18 15:30 06/29/18 15:29 05/31/18 21:37 Baclofen (Lioresal) 10 mg BID ORAL 05/30/18 18:00 06/29/18 17:59 06/01/18 08:25 Ceftriaxone Sodium 1 gm/ Dextrose 55 ml @ 110 mls/hr Q24H IVPB 05/30/18 20:00 06/06/18 19:59 05/31/18 20:16 Clonazepam (KlonoPIN) 1 mg Q6H ORAL 05/30/18 16:00 06/06/18 15:59 06/01/18 09:47 Dextrose/ Electrolytes 1,000 ml @ 75 mls/hr [id number] IV 05/30/18 16:00 06/29/18 15:59 06/01/18 03:13 Diphenhydramine HCl (Benadryl) 25 mg Q6H PRN ORAL Itching 05/30/18 15:45 06/29/18 15:44 Docusate Sodium (Colace) 100 mg TWICE A DAY ORAL 05/30/18 18:00 06/29/18 17:59 06/01/18 08:24 Duloxetine HCl (Cymbalta) 60 mg DAILY ORAL 05/31/18 09:00 06/30/18 08:59 06/01/18 08:25 Famotidine (Pepcid I.v.) 20 mg Q12HR IVP 05/30/18 21:00 06/29/18 20:59 06/01/18 08:25 Gabapentin (Neurontin) 200 mg THREE TIMES A DAY ORAL 05/30/18 18:00 06/29/18 17:59 06/01/18 08:24 Magnesium Hydroxide (Mom) 30 ml DAILYPRN PRN ORAL Constipation 05/30/18 15:45 06/29/18 15:44 Multivitamins (Multivitamins) 1 tab DAILY ORAL 05/31/18 09:00 06/30/18 08:59 06/01/18 08:24 Ondansetron HCl (Zofran) 4 mg Q6H PRN IV Nausea & Vomiting 05/30/18 15:45 06/29/18 15:44 Sucralfate (Carafate) 1 gm FOUR TIMES A DAY ORAL 05/30/18 18:00 06/29/18 17:59 06/01/18 08:24 Trazodone HCl (Desyrel) 50 mg BEDTIME ORAL 05/30/18 21:00 06/29/18 20:59 05/31/18 20:16 Assessment/Plan Problem List: (1) Schizophrenia ICD Codes: F20.9 - Schizophrenia, unspecified SNOMED: 38197258 (2) Anxiety ICD Codes: F41.9 - Anxiety disorder, unspecified SNOMED: 43082447 Assessment/Plan Seroquel 100mg po qhs dec trazodone 25mg po qhs cont Cymbalta Haldol dec IM Azul Pearl MD Jun 01, 2018 12:24
--- NOTE | 2018-06-01 12:32 | GI Progress Note ---
Assessment/Plan Problems: (1) Delusional disorder ICD Codes: F22 - Delusional disorders SNOMED: 42426804 (2) Abdominal pain ICD Codes: R10.9 - Unspecified abdominal pain SNOMED: 06489031 Qualifiers: Qualified Codes: R10.9 - Unspecified abdominal pain (3) Anxiety ICD Codes: F41.9 - Anxiety disorder, unspecified SNOMED: 31583506 (4) Dehydration ICD Codes: E86.0 - Dehydration SNOMED: 12661732 (5) Vomiting ICD Codes: R11.10 - Vomiting, unspecified SNOMED: 676990898 Status: stable, unchanged Status Narrative Discussed with Dr. Hinds Assessment/Plan Abdominal ultrasound reviewed - Moderate left hydronephrosis, etiology not demonstrated. - Previously reported left upper pole renal lesion is demonstrated on this exam to represent a 4.4 cm simple cyst - Negative for gallstones or dilated bile ducts abdominal ultrasound reviewed At this time the patient denies any nausea vomiting or diarrhea. Symptomatic treatment Okay to advance diet Electrolyte correction Zofran as needed PPI Follow labs Outpatient GI procedures The patient was seen and examined at bedside and all new and available data was reviewed in the patients chart. I agree with the above findings, impression and plan. (Patient seen earlier today. Signature stamp does not reflect patient encounter time.). - Jared Hinds MD Subjective Gastrointestinal/Abdominal: Reports: no symptoms Subjective Denies any nausea vomiting or diarrhea. Objective Last 24 Hour Vital Signs Date Time Temp Pulse Resp B/P (MAP) Pulse Ox O2 Delivery O2 Flow Rate FiO2 06/01/18 09:00 Room Air 06/01/18 08:00 97.9 85 18 143/95 (111) 96 06/01/18 04:00 98.5 82 19 137/93 (108) 94 06/01/18 00:00 98.2 87 19 125/78 (94) 94 05/31/18 21:00 Room Air 05/31/18 20:00 98.6 89 17 149/92 (111) 94 05/31/18 16:00 98.1 91 20 143/89 (107) 97 Intake and Output 05/31/18 06/01/18 18:59 06:59 Intake Total 687.5 ml 1105 ml Output Total 500 ml Balance 687.5 ml 605 ml Intake Oral 300 ml IV Total 687.5 ml 805 ml Output Urine Total 500 ml # Voids 4 Laboratory Tests Test 06/01/18 06:05 White Blood Count 12.5 K/UL (4.8-10.8) H Red Blood Count 4.26 M/UL (4.20-5.40) Hemoglobin 13.8 G/DL (12.0-16.0) Hematocrit 42.0 % (37.0-47.0) Mean Corpuscular Volume 99 FL (80-99) Mean Corpuscular Hemoglobin 32.4 PG (27.0-31.0) H Mean Corpuscular Hemoglobin Concent 32.8 G/DL (32.0-36.0) Red Cell Distribution Width 12.8 % (11.6-14.8) Platelet Count 209 K/UL (150-450) Mean Platelet Volume 7.7 FL (6.5-10.1) Neutrophils (%) (Auto) 78.8 % (45.0-75.0) H Lymphocytes (%) (Auto) 10.5 % (20.0-45.0) L Monocytes (%) (Auto) 9.1 % (1.0-10.0) Eosinophils (%) (Auto) 1.1 % (0.0-3.0) Basophils (%) (Auto) 0.6 % (0.0-2.0) Sodium Level 143 MMOL/L (136-145) Potassium Level 3.5 MMOL/L (3.5-5.1) Chloride Level 107 MMOL/L (98-107) Carbon Dioxide Level 29 MMOL/L (21-32) Anion Gap 7 mmol/L (5-15) Blood Urea Nitrogen 7 mg/dL (7-18) Creatinine 0.7 MG/DL (0.55-1.30) Estimat Glomerular Filtration Rate > 60 mL/min (>60) Glucose Level 112 MG/DL (74-106) H Calcium Level 9.6 MG/DL (8.5-10.1) Phosphorus Level 3.1 MG/DL (2.5-4.9) Magnesium Level 1.8 MG/DL (1.8-2.4) Height (Feet): 5 Height (Inches): 4.00 Weight (Pounds): 192 General Appearance: WD/WN, no apparent distress, alert Cardiovascular: normal rate Respiratory/Chest: normal breath sounds, no respiratory distress Abdominal Exam: normal bowel sounds, non tender, soft Extremities: normal range of motion, non-tender Conner Kee NP Jun 01, 2018 12:32
--- NOTE | 2018-06-01 12:46 | Nephrology Progress Note ---
Assessment/Plan Problem List: (1) Dehydration (2) Hypoalbuminemia (3) Vomiting (4) Seizure disorder Assessment Dehydration UTI HypoNatremia, Hypokalemia, Proteinuria, HypoAlbuminemia HTN Sz disorder Plan DC IV fluids K Phos as needed Monitor renal parameters Antibiotics Gastric support Subjective ROS Limited/Unobtainable: No Constitutional: Reports: other - no more vomiting Objective Objective Last 24 Hour Vital Signs Date Time Temp Pulse Resp B/P (MAP) Pulse Ox O2 Delivery O2 Flow Rate FiO2 06/01/18 09:00 Room Air 06/01/18 08:00 97.9 85 18 143/95 (111) 96 06/01/18 04:00 98.5 82 19 137/93 (108) 94 06/01/18 00:00 98.2 87 19 125/78 (94) 94 05/31/18 21:00 Room Air 05/31/18 20:00 98.6 89 17 149/92 (111) 94 05/31/18 16:00 98.1 91 20 143/89 (107) 97 Intake and Output 05/31/18 06/01/18 19:00 07:00 Intake Total 687.5 ml 1030 ml Output Total 500 ml Balance 687.5 ml 530 ml Intake Oral 300 ml IV Total 687.5 ml 730 ml Output Urine Total 500 ml # Voids 4 Laboratory Tests 06/01/18 06:05: White Blood Count 12.5H, Red Blood Count 4.26, Hemoglobin 13.8, Hematocrit 42.0 , Mean Corpuscular Volume 99, Mean Corpuscular Hemoglobin 32.4H, Mean Corpuscular Hemoglobin Concent 32.8, Red Cell Distribution Width 12.8, Platelet Count 209, Mean Platelet Volume 7.7, Neutrophils (%) (Auto) 78.8H, Lymphocytes ( %) (Auto) 10.5L, Monocytes (%) (Auto) 9.1, Eosinophils (%) (Auto) 1.1, Basophils (%) (Auto) 0.6, Sodium Level 143, Potassium Level 3.5, Chloride Level 107, Carbon Dioxide Level 29, Anion Gap 7, Blood Urea Nitrogen 7, Creatinine 0.7 , Estimat Glomerular Filtration Rate > 60, Glucose Level 112H, Calcium Level 9.6 , Phosphorus Level 3.1, Magnesium Level 1.8 Height (Feet): 5 Height (Inches): 4.00 Weight (Pounds): 192 General Appearance: no apparent distress Cardiovascular: normal rate Respiratory/Chest: lungs clear Abdomen: soft, other - obese Derrell Hatch MD Jun 01, 2018 12:46
--- NOTE | 2018-06-01 12:46 | Infectious Diseases Prog Note ---
Assessment/Plan Assessment/Plan A Sepsis with leukocytosis and tachycardia. pyelonephritis. Bacteremia Left-sided hydronephrosis and hydroureter hypertension, schizophrenia, mild hypokalemia. RECOMMENDATION: Change ceftriaxone To Meropenem Will f/u cultures Subjective ROS Limited/Unobtainable: No Constitutional: Reports: no symptoms Respiratory: Reports: no symptoms Cardiovascular: Reports: no symptoms Gastrointestinal/Abdominal: Reports: no symptoms Genitourinary: Reports: no symptoms Allergies: Coded Allergies: Grits (Unverified Allergy, Unknown, 07/06/17) Beulah (Unverified Allergy, Unknown, 07/06/17) Objective Vital Signs Last 24 Hour Vital Signs Date Time Temp Pulse Resp B/P (MAP) Pulse Ox O2 Delivery O2 Flow Rate FiO2 06/01/18 09:00 Room Air 06/01/18 08:00 97.9 85 18 143/95 (111) 96 06/01/18 04:00 98.5 82 19 137/93 (108) 94 06/01/18 00:00 98.2 87 19 125/78 (94) 94 05/31/18 21:00 Room Air 05/31/18 20:00 98.6 89 17 149/92 (111) 94 05/31/18 16:00 98.1 91 20 143/89 (107) 97 Height (Feet): 5 Height (Inches): 4.00 Weight (Pounds): 192 General Appearance: no acute distress HEENT: mucous membranes moist Respiratory/Chest: lungs clear Cardiovascular: normal rate Abdomen: soft, non tender Extremities: no edema Neurologic/Psychiatric: alert, responsive Microbiology Date/Time Source Procedure Growth Status 05/30/18 13:32 Blood Blood Culture - Preliminary NO GROWTH AFTER 24 HOURS Resulted 05/30/18 13:15 Blood Blood Culture - Preliminary Resulted 05/30/18 12:25 Urine,Clean Catch Urine Culture - Preliminary Escherichia Coli - Esbl Gram Negative Bacillus 1 Resulted Laboratory Tests Test 06/01/18 06:05 White Blood Count 12.5 K/UL (4.8-10.8) H Red Blood Count 4.26 M/UL (4.20-5.40) Hemoglobin 13.8 G/DL (12.0-16.0) Hematocrit 42.0 % (37.0-47.0) Mean Corpuscular Volume 99 FL (80-99) Mean Corpuscular Hemoglobin 32.4 PG (27.0-31.0) H Mean Corpuscular Hemoglobin Concent 32.8 G/DL (32.0-36.0) Red Cell Distribution Width 12.8 % (11.6-14.8) Platelet Count 209 K/UL (150-450) Mean Platelet Volume 7.7 FL (6.5-10.1) Neutrophils (%) (Auto) 78.8 % (45.0-75.0) H Lymphocytes (%) (Auto) 10.5 % (20.0-45.0) L Monocytes (%) (Auto) 9.1 % (1.0-10.0) Eosinophils (%) (Auto) 1.1 % (0.0-3.0) Basophils (%) (Auto) 0.6 % (0.0-2.0) Sodium Level 143 MMOL/L (136-145) Potassium Level 3.5 MMOL/L (3.5-5.1) Chloride Level 107 MMOL/L (98-107) Carbon Dioxide Level 29 MMOL/L (21-32) Anion Gap 7 mmol/L (5-15) Blood Urea Nitrogen 7 mg/dL (7-18) Creatinine 0.7 MG/DL (0.55-1.30) Estimat Glomerular Filtration Rate > 60 mL/min (>60) Glucose Level 112 MG/DL (74-106) H Calcium Level 9.6 MG/DL (8.5-10.1) Phosphorus Level 3.1 MG/DL (2.5-4.9) Magnesium Level 1.8 MG/DL (1.8-2.4) Current Medications Medications (Trade) Dose Ordered Sig/William Route PRN Reason Start Time Stop Time Status Last Admin Dose Admin Acetaminophen (Tylenol) 650 mg Q4H PRN ORAL Mild Pain/Temp > 100.5 05/30/18 15:30 06/29/18 15:29 05/31/18 21:37 Baclofen (Lioresal) 10 mg BID ORAL 05/30/18 18:00 06/29/18 17:59 06/01/18 08:25 Ceftriaxone Sodium 1 gm/ Dextrose 55 ml @ 110 mls/hr Q24H IVPB 05/30/18 20:00 06/06/18 19:59 05/31/18 20:16 Clonazepam (KlonoPIN) 1 mg Q6H ORAL 05/30/18 16:00 06/06/18 15:59 06/01/18 09:47 Diphenhydramine HCl (Benadryl) 25 mg Q6H PRN ORAL Itching 05/30/18 15:45 06/29/18 15:44 Docusate Sodium (Colace) 100 mg TID ORAL 06/01/18 13:00 06/29/18 17:59 UNV Duloxetine HCl (Cymbalta) 60 mg DAILY ORAL 05/31/18 09:00 06/30/18 08:59 06/01/18 08:25 Famotidine (Pepcid) 20 mg DAILY ORAL 06/02/18 09:00 07/02/18 08:59 UNV Gabapentin (Neurontin) 200 mg THREE TIMES A DAY ORAL 05/30/18 18:00 06/29/18 17:59 06/01/18 12:23 Haloperidol Decanoate (Haldol) 50 mg ONCE IM 06/01/18 15:00 06/01/18 18:00 Magnesium Hydroxide (Mom) 30 ml DAILYPRN PRN ORAL Constipation 05/30/18 15:45 06/29/18 15:44 Multivitamins (Multivitamins) 1 tab DAILY ORAL 05/31/18 09:00 06/30/18 08:59 06/01/18 08:24 Ondansetron HCl (Zofran) 4 mg Q6H PRN IV Nausea & Vomiting 05/30/18 15:45 06/29/18 15:44 Quetiapine Fumarate (SEROquel) 50 mg BEDTIME ORAL 06/01/18 21:00 07/01/18 20:59 Sucralfate (Carafate) 1 gm FOUR TIMES A DAY ORAL 05/30/18 18:00 06/29/18 17:59 06/01/18 12:23 Trazodone HCl (Desyrel) 25 mg BEDTIME ORAL 06/01/18 21:00 07/01/18 20:59 Jose Solis MD Jun 01, 2018 12:45
--- NOTE | 2018-06-01 12:49 | Surgery Progress Note ---
Surgery Progress Note Subjective Additional Comments leukocytosis improved. abd pain still present. asking for pain meds no n/v/f/ c. Objective Last 24 Hour Vital Signs Date Time Temp Pulse Resp B/P (MAP) Pulse Ox O2 Delivery O2 Flow Rate FiO2 06/01/18 09:00 Room Air 06/01/18 08:00 97.9 85 18 143/95 (111) 96 06/01/18 04:00 98.5 82 19 137/93 (108) 94 06/01/18 00:00 98.2 87 19 125/78 (94) 94 05/31/18 21:00 Room Air 05/31/18 20:00 98.6 89 17 149/92 (111) 94 05/31/18 16:00 98.1 91 20 143/89 (107) 97 I&O Intake and Output 05/31/18 06/01/18 19:00 07:00 Intake Total 687.5 ml 1030 ml Output Total 500 ml Balance 687.5 ml 530 ml Intake Oral 300 ml IV Total 687.5 ml 730 ml Output Urine Total 500 ml # Voids 4 Dressing: other Wound: other Drains: none Cardiovascular: RSR Respiratory: clear Abdomen: soft, tenderness, present bowel sounds Extremities: no cyanosis Laboratory Tests Test 06/01/18 06:05 White Blood Count 12.5 K/UL (4.8-10.8) H Red Blood Count 4.26 M/UL (4.20-5.40) Hemoglobin 13.8 G/DL (12.0-16.0) Hematocrit 42.0 % (37.0-47.0) Mean Corpuscular Volume 99 FL (80-99) Mean Corpuscular Hemoglobin 32.4 PG (27.0-31.0) H Mean Corpuscular Hemoglobin Concent 32.8 G/DL (32.0-36.0) Red Cell Distribution Width 12.8 % (11.6-14.8) Platelet Count 209 K/UL (150-450) Mean Platelet Volume 7.7 FL (6.5-10.1) Neutrophils (%) (Auto) 78.8 % (45.0-75.0) H Lymphocytes (%) (Auto) 10.5 % (20.0-45.0) L Monocytes (%) (Auto) 9.1 % (1.0-10.0) Eosinophils (%) (Auto) 1.1 % (0.0-3.0) Basophils (%) (Auto) 0.6 % (0.0-2.0) Sodium Level 143 MMOL/L (136-145) Potassium Level 3.5 MMOL/L (3.5-5.1) Chloride Level 107 MMOL/L (98-107) Carbon Dioxide Level 29 MMOL/L (21-32) Anion Gap 7 mmol/L (5-15) Blood Urea Nitrogen 7 mg/dL (7-18) Creatinine 0.7 MG/DL (0.55-1.30) Estimat Glomerular Filtration Rate > 60 mL/min (>60) Glucose Level 112 MG/DL (74-106) H Calcium Level 9.6 MG/DL (8.5-10.1) Phosphorus Level 3.1 MG/DL (2.5-4.9) Magnesium Level 1.8 MG/DL (1.8-2.4) Plan Problems: (1) Emesis (2) Abdominal pain Assessment & Plan: generalized abdominal discomfort, nausea, emesis now resolving leukocytosis improved. CT A/P with Moderate left hydronephrosis and hydroureter. Level of obstruction appears to be at the level of the left ureteropelvic junction. No definite obstructing mass or stone demonstrated, although there does appear to be slight thickening of the bladder wall in this region. Marked perinephric and periureteral fat stranding. This most likely represents associated acute pyelonephritis given reported clinical history of such, although could also represent fat stranding from acute urinary obstruction. 5 cm low-attenuation lesion demonstrating slightly higher than normal fluid attenuation coming off of the upper pole left kidney. This most likely represents a complex possibly proteinaceous cyst, but necrotic solid mass also possible. Recommend further evaluation with ultrasound to assess its cystic or solid Hypertrophy left adrenal, probably reactive secondary to the adjacent inflammation Subcentimeter low-attenuation hyperattenuating lesions coming off the right kidney, too small to definitively characterize although suspect proteinaceous cysts Markedly thickened endometrium. This could represent fluid or neoplasm. Further evaluation with pelvic sonography is recommended. Moderate left hydronephrosis, etiology not demonstrated. This is also described on recent CT scan. Note presence of a left ureteral jet in the bladder despite the presence of hydronephrosis Previously reported left upper pole renal lesion is demonstrated on this exam to represent a 4.4 cm simple cyst Minimal right hydronephrosis, etiology/significance uncertain Small right renal cyst incidentally noted Central uterine fluid collection. Please refer to separate CT abdomen and pelvis report Negative for gallstones or dilated bile ducts UTI -okay for diet as tolerated -trend labs -no acute surgical intervention planned' -Abx as per ID -will follow with recs (3) Sepsis (4) Vomiting Assessment & Plan: resolving (5) S/P BKA (below knee amputation) unilateral Star Molina Jun 01, 2018 12:49
[2018-06-01] MEDS ORDERED: Haloperidol Decanoate 50mg Inj IM SCH (15:00)
[2018-06-01] MEDS: Meropenem 500 MG in NS 55 ML IVPB SCH ×2 (15:07→21:23)
[2018-06-01 16:00] VITALS: BP 155/95
--- NOTE | 2018-06-01 16:53 | Consultation ---
History of Present Illness General Chief Complaint: Vomiting Referring physician: JORGE LUIS HALEY Reason for Consultation: Nausea vomiting Present Illness Allergies: Coded Allergies: Grits (Unverified Allergy, Unknown, 07/06/17) Doole (Unverified Allergy, Unknown, 07/06/17) Medication History Scheduled Amino Acids/Protein Hydrolys (Pro-Stat Liquid), 30 ML ORAL DAILY, (Reported) Ascorbic Acid* (Vitamin C*), 500 MG ORAL DAILY, (Reported) Aspirin* (Aspirin*), 325 MG ORAL DAILY, (Reported) Baclofen* (Baclofen*), 10 MG ORAL BID, (Reported) Calcium Carbonate/Vitamin D3 (Calcium + Vitamin D Tablet), 1 EACH PO DAILY, ( Reported) Clonazepam* (Klonopin*), 1 MG ORAL Q6H, (Reported) Clonazepam* (Klonopin*), 1 MG ORAL Q6H, (Reported) Docusate Sodium* (Docusate Sodium*), 100 MG ORAL TWICE A DAY, (Reported) Duloxetine Hcl* (Cymbalta*), 60 MG ORAL DAILY, (Reported) Gabapentin* (Gabapentin*), 200 MG ORAL THREE TIMES A DAY, (Reported) Levofloxacin* (Levaquin*), 750 MG ORAL ONCE, (Reported) Multivitamins* (Multivitamins*), 1 TAB ORAL DAILY, (Reported) Olanzapine* (Zyprexa*), 5 MG ORAL BID, (Reported) Trazodone* (Trazodone*), 50 MG ORAL BEDTIME, (Reported) Trazodone* (Trazodone*), 50 MG ORAL BEDTIME, (Reported) Trimethoprim/Sulfamethoxazole 160/800* (Bactrim Ds Tablet*), 1 TAB ORAL TWICE A DAY, (Reported) Zinc Sulfate (Zinc Sulfate*), 220 MG ORAL DAILY, (Reported) Scheduled PRN Acetaminophen* (Tylenol Extra Strength*), 1,000 MG ORAL Q4HR PRN for Mild Pain/ Temp > 100.5, (Reported) Bisacodyl (Dulcolax), 10 MG RC for Constipation, (Reported) Diphenhydramine Hcl* (Benadryl*), 25 MG ORAL Q6H PRN for Itching, (Reported) Magnesium Hydroxide* (Milk Of Magnesia*), 30 ML ORAL DAILY PRN for Constipation, (Reported) Na Phos,M-B/Na Phos,Di-Ba* (Fleet Enema*), 133 ML RECTAL DAILY PRN for Constipation, (Reported) Oxycodone Hcl* (Oxycodone Hcl*), 5 MG ORAL Q6H PRN for For Pain, (Reported) Tramadol Hcl* (Ultram*), 50 MG ORAL Q6H PRN for For Pain, (Reported) Patient History Healthcare decision maker Resuscitation status Full Code Advanced Directive on File Physical Exam Last 24 Hour Vital Signs Date Time Temp Pulse Resp B/P (MAP) Pulse Ox O2 Delivery O2 Flow Rate FiO2 06/01/18 16:00 97.8 74 20 155/95 (115) 95 06/01/18 12:00 97.5 84 20 138/88 (105) 96 06/01/18 09:00 Room Air 06/01/18 08:00 97.9 85 18 143/95 (111) 96 06/01/18 04:00 98.5 82 19 137/93 (108) 94 06/01/18 00:00 98.2 87 19 125/78 (94) 94 05/31/18 21:00 Room Air 05/31/18 20:00 98.6 89 17 149/92 (111) 94 Intake and Output 05/31/18 06/01/18 18:59 06:59 Intake Total 687.5 ml 1105 ml Output Total 500 ml Balance 687.5 ml 605 ml Intake Oral 300 ml IV Total 687.5 ml 805 ml Output Urine Total 500 ml # Voids 4 Laboratory Tests Test 06/01/18 06:05 White Blood Count 12.5 K/UL (4.8-10.8) H Red Blood Count 4.26 M/UL (4.20-5.40) Hemoglobin 13.8 G/DL (12.0-16.0) Hematocrit 42.0 % (37.0-47.0) Mean Corpuscular Volume 99 FL (80-99) Mean Corpuscular Hemoglobin 32.4 PG (27.0-31.0) H Mean Corpuscular Hemoglobin Concent 32.8 G/DL (32.0-36.0) Red Cell Distribution Width 12.8 % (11.6-14.8) Platelet Count 209 K/UL (150-450) Mean Platelet Volume 7.7 FL (6.5-10.1) Neutrophils (%) (Auto) 78.8 % (45.0-75.0) H Lymphocytes (%) (Auto) 10.5 % (20.0-45.0) L Monocytes (%) (Auto) 9.1 % (1.0-10.0) Eosinophils (%) (Auto) 1.1 % (0.0-3.0) Basophils (%) (Auto) 0.6 % (0.0-2.0) Sodium Level 143 MMOL/L (136-145) Potassium Level 3.5 MMOL/L (3.5-5.1) Chloride Level 107 MMOL/L (98-107) Carbon Dioxide Level 29 MMOL/L (21-32) Anion Gap 7 mmol/L (5-15) Blood Urea Nitrogen 7 mg/dL (7-18) Creatinine 0.7 MG/DL (0.55-1.30) Estimat Glomerular Filtration Rate > 60 mL/min (>60) Glucose Level 112 MG/DL (74-106) H Calcium Level 9.6 MG/DL (8.5-10.1) Phosphorus Level 3.1 MG/DL (2.5-4.9) Magnesium Level 1.8 MG/DL (1.8-2.4) Height (Feet): 5 Height (Inches): 4.00 Weight (Pounds): 192 Medications Current Medications Medications (Trade) Dose Ordered Sig/William Route PRN Reason Start Time Stop Time Status Last Admin Dose Admin Acetaminophen (Tylenol) 650 mg Q4H PRN ORAL Mild Pain/Temp > 100.5 05/30/18 15:30 06/29/18 15:29 05/31/18 21:37 Baclofen (Lioresal) 10 mg BID ORAL 05/30/18 18:00 06/29/18 17:59 06/01/18 08:25 Clonazepam (KlonoPIN) 1 mg Q6H ORAL 05/30/18 16:00 06/06/18 15:59 06/01/18 15:07 Diphenhydramine HCl (Benadryl) 25 mg Q6H PRN ORAL Itching 05/30/18 15:45 06/29/18 15:44 Docusate Sodium (Colace) 100 mg TID ORAL 06/01/18 13:00 06/29/18 17:59 06/01/18 13:40 Duloxetine HCl (Cymbalta) 60 mg DAILY ORAL 05/31/18 09:00 06/30/18 08:59 06/01/18 08:25 Famotidine (Pepcid) 20 mg DAILY ORAL 06/02/18 09:00 07/02/18 08:59 Gabapentin (Neurontin) 200 mg THREE TIMES A DAY ORAL 05/30/18 18:00 06/29/18 17:59 06/01/18 12:23 Haloperidol Decanoate (Haldol) 50 mg ONCE IM 06/01/18 15:00 06/01/18 18:00 06/01/18 14:12 Magnesium Hydroxide (Mom) 30 ml DAILYPRN PRN ORAL Constipation 05/30/18 15:45 06/29/18 15:44 Meropenem 500 mg/ Sodium Chloride 55 ml @ 110 mls/hr EVERY 8 HOURS IVPB 06/01/18 14:00 06/06/18 13:59 06/01/18 15:07 Multivitamins (Multivitamins) 1 tab DAILY ORAL 05/31/18 09:00 06/30/18 08:59 06/01/18 08:24 Ondansetron HCl (Zofran) 4 mg Q6H PRN IV Nausea & Vomiting 05/30/18 15:45 06/29/18 15:44 Potassium Chloride (K-Dur) 40 meq DAILY ORAL 06/02/18 09:00 07/02/18 08:59 Quetiapine Fumarate (SEROquel) 50 mg BEDTIME ORAL 06/01/18 21:00 07/01/18 20:59 Sucralfate (Carafate) 1 gm FOUR TIMES A DAY ORAL 05/30/18 18:00 06/29/18 17:59 06/01/18 12:23 Trazodone HCl (Desyrel) 25 mg BEDTIME ORAL 06/01/18 21:00 07/01/18 20:59 Assessment/Plan Assessment/Plan Hematology Consult Note Date patient seen: May 31, 2018 Reason for Hospitalization: Vomiting Referring physician: JORGE LUIS HALEY Reason for Consultation: Leukocytosis HPI Patient present with complaints of ongoing vomiting and diarrhea, She reports some epigastric discomfort and cramping sensation patient also reports cough, Denies any flank pain, Patient reports that she has diffuse body ache as well Denies any focal weakness denies any fall or trauma denies any recent travel, Denies any blood in the stool, GI consulted for reported nausea and vomiting. Initial HPI as noted above. Patient seen, awake alert and oriented x4, no apparent distress, no active signs or symptoms of nausea or vomiting. Patient denies any nausea vomiting or diarrhea. Patient has complaint of current constipation. Abdomen is soft, nontender, nondistended. Labs reviewed; patient presents with leukocytosis white count of 16. No anemia. No transaminitis. Electrolyte imbalance of potassium 3.3 and phosphorus of 2.1. Patient denies any history of endoscopic or colonoscopy. Heme was consulted for leukocytosis Home Medications Duloxetine Hcl* (CYMBALTA*) 60 Mg Capsule.dr, 60 MG ORAL DAILY, CAP 05/30/18 Multivitamins* (MULTIVITAMINS*) 1 Each Tablet, 1 TAB ORAL DAILY, TAB 0 Refills 05/30/18 Trazodone* (TRAZODONE*) 150 Mg Tablet, 50 MG ORAL BEDTIME, TAB 05/30/18 Trazodone* (TRAZODONE*) 150 Mg Tablet, 50 MG ORAL BEDTIME, TAB 05/30/18 Clonazepam* (KLONOPIN*) 1 Mg Tablet, 1 MG ORAL Q6H, #15 TAB 0 Refills 05/30/18 Gabapentin* (GABAPENTIN*) 100 Mg Capsule, 200 MG ORAL THREE TIMES A DAY, CAP 05/30/18 Levofloxacin* (LEVAQUIN*) 750 Mg Tablet, 750 MG ORAL ONCE for 1 Day, TAB give levaquin on 07/11/17 07/10/17 Olanzapine* (ZYPREXA*) 5 Mg Tablet, 5 MG ORAL BID, TAB 07/10/17 Ascorbic Acid* (VITAMIN C*) 500 Mg Tablet, 500 MG ORAL DAILY, #30 TAB 0 Refills 07/07/17 Acetaminophen* (TYLENOL EXTRA STRENGTH*) 500 Mg Tablet, 1000 MG ORAL Q4HR PRN for Mild Pain/Temp > 100.5, TAB 0 Refills 07/07/17 Amino Acids/Protein Hydrolys (PRO-STAT LIQUID) 30 Ml Liquid.pkt, 30 ML ORAL DAILY, ML 07/07/17 Magnesium Hydroxide* (MILK OF MAGNESIA*) 400 Mg/5 Ml Oral.susp, 30 ML ORAL DAILY PRN for Constipation, ML 07/07/17 Na Phos,M-B/Na Phos,Di-Ba* (FLEET ENEMA*) 133 Ml Enema, 133 ML RECTAL DAILY PRN for Constipation, ML 0 Refills 07/07/17 Bisacodyl (DULCOLAX) 10 Mg Supp.rect, 10 MG RC PRN for Constipation, SUPP 07/07/17 Trimethoprim/Sulfamethoxazole 160/800* (BACTRIM DS TABLET*) 1 Each Tablet, 1 TAB ORAL TWICE A DAY for 14 Days, TAB 06/10/17 Aspirin* (ASPIRIN*) 325 Mg Tablet, 325 MG ORAL DAILY, TAB 05/29/17 Zinc Sulfate (ZINC SULFATE*) 220 Mg Capsule, 220 MG ORAL DAILY, CAP 0 Refills 05/29/17 Tramadol Hcl* (ULTRAM*) 50 Mg Tablet, 50 MG ORAL Q6H PRN for For Pain, #30 TAB 0 Refills 05/29/17 Oxycodone Hcl* (OXYCODONE HCL*) 5 Mg Capsule, 5 MG ORAL Q6H PRN for For Pain, # 30 CAP 0 Refills 05/29/17 Docusate Sodium* (DOCUSATE SODIUM*) 100 Mg Capsule, 100 MG ORAL TWICE A DAY, CAP 05/29/17 Diphenhydramine Hcl* (BENADRYL*) 25 Mg Capsule, 25 MG ORAL Q6H PRN for Itching, CAP 05/29/17 Clonazepam* (KLONOPIN*) 1 Mg Tablet, 1 MG ORAL Q6H, #15 TAB 0 Refills 05/29/17 Baclofen* (BACLOFEN*) 10 Mg Tablet, 10 MG ORAL BID, TAB 05/29/17 Calcium Carbonate/Vitamin D3 (CALCIUM + VITAMIN D TABLET) 1 Each Tablet, 1 EACH PO DAILY, TAB 05/29/17 Med list reviewed/reconciled: Yes Allergies: Coded Allergies: Grits (Unverified Allergy, Unknown, 07/06/17) Doole (Unverified Allergy, Unknown, 07/06/17) Patient History History Provided By: Patient, Medical Record PMH Narrative Past Medical History: see triage record Pertinent Family History: none Reviewed Nursing Documentation: PMH: Agreed; PSxH: Agreed Nursing Documentation-PMH Hx Hypertension: Yes - edema, osteomyelitis, HTN Hx Cancer: No Hx Gastrointestinal Problems: No Hx Seizures: Yes Social History: Denies: smoking, alcohol use, drug use, other ROS All Other Systems: negative except mentioned in HPI PE Vital Signs Laboratory Tests Test 06/01/18 06:05 White Blood Count 12.5 K/UL (4.8-10.8) H Red Blood Count 4.26 M/UL (4.20-5.40) Hemoglobin 13.8 G/DL (12.0-16.0) Hematocrit 42.0 % (37.0-47.0) Mean Corpuscular Volume 99 FL (80-99) Mean Corpuscular Hemoglobin 32.4 PG (27.0-31.0) H Mean Corpuscular Hemoglobin Concent 32.8 G/DL (32.0-36.0) Red Cell Distribution Width 12.8 % (11.6-14.8) Platelet Count 209 K/UL (150-450) Mean Platelet Volume 7.7 FL (6.5-10.1) Neutrophils (%) (Auto) 78.8 % (45.0-75.0) H Lymphocytes (%) (Auto) 10.5 % (20.0-45.0) L Monocytes (%) (Auto) 9.1 % (1.0-10.0) Eosinophils (%) (Auto) 1.1 % (0.0-3.0) Basophils (%) (Auto) 0.6 % (0.0-2.0) Sodium Level 143 MMOL/L (136-145) Potassium Level 3.5 MMOL/L (3.5-5.1) Chloride Level 107 MMOL/L (98-107) Carbon Dioxide Level 29 MMOL/L (21-32) Anion Gap 7 mmol/L (5-15) Blood Urea Nitrogen 7 mg/dL (7-18) Creatinine 0.7 MG/DL (0.55-1.30) Estimat Glomerular Filtration Rate > 60 mL/min (>60) Glucose Level 112 MG/DL (74-106) H Calcium Level 9.6 MG/DL (8.5-10.1) Phosphorus Level 3.1 MG/DL (2.5-4.9) Magnesium Level 1.8 MG/DL (1.8-2.4) Last 24 Hour Vital Signs Date Time Temp Pulse Resp B/P (MAP) Pulse Ox O2 Delivery O2 Flow Rate FiO2 06/01/18 16:00 97.8 74 20 155/95 (115) 95 06/01/18 12:00 97.5 84 20 38/88 (105) 96 06/01/18 09:00 Room Air 06/01/18 08:00 97.9 85 18 143/95 (111) 96 06/01/18 04:00 98.5 82 19 137/93 (108) 94 06/01/18 00:00 98.2 87 19 125/78 (94) 94 05/31/18 21:00 Room Air 05/31/18 20:00 98.6 89 17 149/92 (111) 94 General Appearance: well appearing, nad Head: normocephalic EENT: PERRL/EOMI, normal ENT inspection Neck: supple Respiratory: normal breath sounds, no respiratory distress Cardiovascular: normal rate Gastrointestinal: normal inspection, non tender, soft, nd Genitourinary: no CVA tenderness Musculoskeletal: normal inspection, back normal Neurologic: normal inspection, alert, oriented x3, responsive Psychiatric: normal inspection, judgement/insight normal, memory normal Skin: normal inspection, normal color, no rash, warm/dry, palpation normal, well hydrated Lymphatic: normal inspection, no adenopathy Current Medications Medications (Trade) Dose Ordered Sig/William Route PRN Reason Start Time Stop Time Status Last Admin Dose Admin Acetaminophen (Tylenol) 650 mg Q4H PRN ORAL Mild Pain/Temp > 100.5 05/30/18 15:30 06/29/18 15:29 05/31/18 00:05 Baclofen (Lioresal) 10 mg BID ORAL 05/30/18 18:00 06/29/18 17:59 05/31/18 09:11 Ceftriaxone Sodium 1 gm/ Dextrose 55 ml @ 110 mls/hr Q24H IVPB 05/30/18 20:00 06/06/18 19:59 05/30/18 20:17 Clonazepam (KlonoPIN) 1 mg Q6H ORAL 05/30/18 16:00 06/06/18 15:59 05/31/18 09:12 Dextrose/ Electrolytes 1,000 ml @ 75 mls/hr [id number] IV 05/30/18 16:00 06/29/18 15:59 05/31/18 06:12 Diphenhydramine HCl (Benadryl) 25 mg Q6H PRN ORAL Itching 05/30/18 15:45 06/29/18 15:44 Docusate Sodium (Colace) 100 mg TWICE A DAY ORAL 05/30/18 18:00 06/29/18 17:59 05/31/18 09:10 Duloxetine HCl (Cymbalta) 60 mg DAILY ORAL 05/31/18 09:00 06/30/18 08:59 05/31/18 09:10 Famotidine (Pepcid I.v.) 20 mg Q12HR IVP 05/30/18 21:00 06/29/18 20:59 05/31/18 09:12 Gabapentin (Neurontin) 200 mg THREE TIMES A DAY ORAL 05/30/18 18:00 06/29/18 17:59 05/31/18 09:11 Magnesium Hydroxide (Mom) 30 ml DAILYPRN PRN ORAL Constipation 05/30/18 15:45 06/29/18 15:44 Multivitamins (Multivitamins) 1 tab DAILY ORAL 05/31/18 09:00 06/30/18 08:59 05/31/18 09:10 Ondansetron HCl (Zofran) 4 mg Q6H PRN IV Nausea & Vomiting 05/30/18 15:45 06/29/18 15:44 Potassium Phosphate 30 mm/ Sodium Chloride 285 ml @ 47.5 mls/hr ONCE IV 05/31/18 11:00 05/31/18 13:00 Sucralfate (Carafate) 1 gm FOUR TIMES A DAY ORAL 05/30/18 18:00 06/29/18 17:59 05/31/18 09:12 Trazodone HCl (Desyrel) 50 mg BEDTIME ORAL 05/30/18 21:00 06/29/18 20:59 05/30/18 21:03 Assessment/Plan: # Leukocytosis is likely realated to infection, reactive process, on abx at this time, potentially had acute pyelonephritis on presentation -> have reviewed peripheral smear and bandemia/neutrophilia noted --> continue antibiotics if they have been started by ID team --> monitor for resolution # Left kidney mass -- 5 cm low-attenuation lesion demonstrating slightly higher than normal fluid attenuation coming off of the upper pole left kidney --> likely represents a complex possibly proteinaceous cyst, but necrotic solid mass also possible. # Dehydration --> ivf have been started by renal --> anti-nausea meds started # S/P BKA (below knee amputation) unilateral # Anxiety --> as per psych # Left hydronephrosis The timing of this note does not necessarily reflect the time of the patient was seen. Greatly appreciate consultation! Colby Canada MD Jun 01, 2018 16:53
--- NOTE | 2018-06-01 18:36 | General Progress Note ---
Assessment/Plan Assessment/Plan Assessment/Plan: # Leukocytosis is likely realated to infection, reactive process, on abx at this time, potentially had acute pyelonephritis on presentation -> have reviewed peripheral smear and bandemia/neutrophilia noted --> continue antibiotics if they have been started by ID team --> monitor for resolution # Left kidney mass -- 5 cm low-attenuation lesion demonstrating slightly higher than normal fluid attenuation coming off of the upper pole left kidney --> likely represents a complex possibly proteinaceous cyst, but necrotic solid mass also possible. # Dehydration --> ivf have been started by renal --> anti-nausea meds started # S/P BKA (below knee amputation) unilateral # Anxiety --> as per psych # Left hydronephrosis The timing of this note does not necessarily reflect the time of the patient was seen. Greatly appreciate consultation! Subjective Allergies: Coded Allergies: Grits (Unverified Allergy, Unknown, 07/06/17) [place] (Unverified Allergy, Unknown, 07/06/17) Subjective 3/: seen by bedside, leukocytosis improved, abd pain still present, no events Objective Last 24 Hour Vital Signs Date Time Temp Pulse Resp B/P (MAP) Pulse Ox O2 Delivery O2 Flow Rate FiO2 06/01/18 16:00 97.8 74 20 155/95 (115) 95 06/01/18 12:00 97.5 84 20 138/88 (105) 96 06/01/18 09:00 Room Air 06/01/18 08:00 97.9 85 18 143/95 (111) 96 06/01/18 04:00 98.5 82 19 137/93 (108) 94 06/01/18 00:00 98.2 87 19 125/78 (94) 94 05/31/18 21:00 Room Air 05/31/18 20:00 98.6 89 17 149/92 (111) 94 Intake and Output 05/31/18 06/01/18 18:59 06:59 Intake Total 687.5 ml 1105 ml Output Total 500 ml Balance 687.5 ml 605 ml Intake Oral 300 ml IV Total 687.5 ml 805 ml Output Urine Total 500 ml # Voids 4 Laboratory Tests 06/01/18 06:05: White Blood Count 12.5H, Red Blood Count 4.26, Hemoglobin 13.8, Hematocrit 42.0 , Mean Corpuscular Volume 99, Mean Corpuscular Hemoglobin 32.4H, Mean Corpuscular Hemoglobin Concent 32.8, Red Cell Distribution Width 12.8, Platelet Count 209, Mean Platelet Volume 7.7, Neutrophils (%) (Auto) 78.8H, Lymphocytes ( %) (Auto) 10.5L, Monocytes (%) (Auto) 9.1, Eosinophils (%) (Auto) 1.1, Basophils (%) (Auto) 0.6, Sodium Level 143, Potassium Level 3.5, Chloride Level 107, Carbon Dioxide Level 29, Anion Gap 7, Blood Urea Nitrogen 7, Creatinine 0.7 , Estimat Glomerular Filtration Rate > 60, Glucose Level 112H, Calcium Level 9.6 , Phosphorus Level 3.1, Magnesium Level 1.8 Height (Feet): 5 Height (Inches): 4.00 Weight (Pounds): 192 Objective General Appearance: well appearing, nad Head: normocephalic EENT: PERRL/EOMI, normal ENT inspection Neck: supple Respiratory: normal breath sounds, no respiratory distress Cardiovascular: normal rate Gastrointestinal: normal inspection, non tender, soft, nd Genitourinary: no CVA tenderness Musculoskeletal: normal inspection, back normal Colby Canada MD Jun 01, 2018 18:36
--- NOTE | 2018-06-01 19:39 | NUR ---
NURSE NOTES: Received report from Linda Bergman RN. Patient A&Ox4. On room air, no signs of distress or labored breathing. IV intact, patent, and saline locked. Bed in lowest position with call light in reach. Will continue with plan of care.
[2018-06-01 20:00] VITALS: BP 155/98
[2018-06-01] MEDS: TraZODone HCl 25 mg tablet ORAL SCH (20:38)
--- NOTE | 2018-06-01 22:05 | General Progress Note ---
Assessment/Plan Problem List: (1) Vomiting ICD Codes: R11.10 - Vomiting, unspecified SNOMED: 093658706 (2) Dehydration ICD Codes: E86.0 - Dehydration SNOMED: 60049018 (3) Anxiety ICD Codes: F41.9 - Anxiety disorder, unspecified SNOMED: 18717633 (4) Hypoalbuminemia ICD Codes: E88.09 - Other disorders of plasma-protein metabolism, not elsewhere classified SNOMED: 751012996 (5) Seizure disorder ICD Codes: G40.909 - Epilepsy, unspecified, not intractable, without status epilepticus SNOMED: 187573077 (6) Edema ICD Codes: R60.9 - Edema, unspecified SNOMED: 107856667, 508923823 (7) HTN (hypertension) ICD Codes: I10 - Essential (primary) hypertension SNOMED: 83596603 (8) Emesis ICD Codes: R11.10 - Vomiting, unspecified SNOMED: 515674444 Qualifiers: Qualified Codes: R11.2 - Nausea with vomiting, unspecified (9) Abdominal pain ICD Codes: R10.9 - Unspecified abdominal pain SNOMED: 53647742 Qualifiers: Qualified Codes: R10.9 - Unspecified abdominal pain Status: progressing Assessment/Plan no vomitting reviewed chart and labs and meds afebrile no siezure vitals stable Subjective ROS Limited/Unobtainable: Yes Allergies: Coded Allergies: Grits (Unverified Allergy, Unknown, 07/06/17) [place] (Unverified Allergy, Unknown, 07/06/17) Objective Last 24 Hour Vital Signs Date Time Temp Pulse Resp B/P (MAP) Pulse Ox O2 Delivery O2 Flow Rate FiO2 06/01/18 16:00 97.8 74 20 155/95 (115) 95 06/01/18 12:00 97.5 84 20 138/88 (105) 96 06/01/18 09:00 Room Air 06/01/18 08:00 97.9 85 18 143/95 (111) 96 06/01/18 04:00 98.5 82 19 137/93 (108) 94 06/01/18 00:00 98.2 87 19 125/78 (94) 94 Intake and Output 05/31/18 06/01/18 19:00 07:00 Intake Total 687.5 ml 1030 ml Output Total 500 ml Balance 687.5 ml 530 ml Intake Oral 300 ml IV Total 687.5 ml 730 ml Output Urine Total 500 ml # Voids 4 Laboratory Tests 06/01/18 06:05: White Blood Count 12.5H, Red Blood Count 4.26, Hemoglobin 13.8, Hematocrit 42.0 , Mean Corpuscular Volume 99, Mean Corpuscular Hemoglobin 32.4H, Mean Corpuscular Hemoglobin Concent 32.8, Red Cell Distribution Width 12.8, Platelet Count 209, Mean Platelet Volume 7.7, Neutrophils (%) (Auto) 78.8H, Lymphocytes ( %) (Auto) 10.5L, Monocytes (%) (Auto) 9.1, Eosinophils (%) (Auto) 1.1, Basophils (%) (Auto) 0.6, Sodium Level 143, Potassium Level 3.5, Chloride Level 107, Carbon Dioxide Level 29, Anion Gap 7, Blood Urea Nitrogen 7, Creatinine 0.7 , Estimat Glomerular Filtration Rate > 60, Glucose Level 112H, Calcium Level 9.6 , Phosphorus Level 3.1, Magnesium Level 1.8 Height (Feet): 5 Height (Inches): 4.00 Weight (Pounds): 192 Cardiovascular: normal rate Respiratory/Chest: lungs clear Abdomen: soft Isela Rubio MD Jun 01, 2018 22:05
[2018-06-02] VITALS (7 sets, daily range): BP systolic 106–177; BP diastolic 54–94
[2018-06-02] MEDS: Meropenem 500 MG in NS 55 ML IVPB SCH ×2 (05:14→14:00)
--- NOTE | 2018-06-02 07:20 | NUR ---
NURSE NOTES: Pt o2 saturation slightly low, per her statement has to use oxygen often. Placed on 2 liter nasal canula hob elevated. Pt is asymptomatic, respiration 16 and regular
--- NOTE | 2018-06-02 07:40 | NUR ---
HAND-OFF: Report given to GUZMAN Miranda.
--- NOTE | 2018-06-02 07:45 | NUR ---
NURSE NOTES: Dr Whitaker phoned made aware that pt o2 is low provided with o2 via nasal canula pt is asymptomatic.
[2018-06-02] MEDS: Docusate 100mg cap ORAL SCH ×3 (09:50→17:58)
[2018-06-02] MEDS: Sucralfate 1gm tab ORAL SCH ×4 (09:50→21:04)
[2018-06-02] MEDS: DULoxetine 30mg cap ORAL SCH (09:52)
--- NOTE | 2018-06-02 11:26 | GI Progress Note ---
Assessment/Plan Problems: (1) Delusional disorder ICD Codes: F22 - Delusional disorders SNOMED: 74205929 (2) Abdominal pain ICD Codes: R10.9 - Unspecified abdominal pain SNOMED: 76998829 Qualifiers: Qualified Codes: R10.9 - Unspecified abdominal pain (3) Anxiety ICD Codes: F41.9 - Anxiety disorder, unspecified SNOMED: 87058758 (4) Dehydration ICD Codes: E86.0 - Dehydration SNOMED: 69799284 (5) Vomiting ICD Codes: R11.10 - Vomiting, unspecified SNOMED: 306636283 Status: stable Status Narrative Discussed with Dr. Hinds Assessment/Plan Abdominal ultrasound reviewed - Moderate left hydronephrosis, etiology not demonstrated. - Previously reported left upper pole renal lesion is demonstrated on this exam to represent a 4.4 cm simple cyst - Negative for gallstones or dilated bile ducts abdominal ultrasound reviewed At this time the patient denies any nausea vomiting or diarrhea. Symptomatic treatment Okay to advance diet Electrolyte correction Zofran as needed PPI Follow labs Outpatient GI procedures The patient was seen and examined at bedside and all new and available data was reviewed in the patients chart. I agree with the above findings, impression and plan. (Patient seen earlier today. Signature stamp does not reflect patient encounter time.). - Jared Hinds MD Subjective Subjective Denies any nausea vomiting or diarrhea. Objective Last 24 Hour Vital Signs Date Time Temp Pulse Resp B/P (MAP) Pulse Ox O2 Delivery O2 Flow Rate FiO2 06/02/18 08:00 98.0 74 20 127/84 (98) 92 06/02/18 06:35 79 126/84 (98) 06/02/18 04:00 98.5 20 177/94 (121) 99 06/02/18 00:00 97.8 83 20 135/89 (104) 98 06/01/18 21:00 Room Air 06/01/18 20:00 98.1 78 18 155/98 (117) 94 06/01/18 16:00 97.8 74 20 155/95 (115) 95 06/01/18 12:00 97.5 84 20 138/88 (105) 96 Intake and Output 06/01/18 06/02/18 19:00 07:00 Intake Total 960 ml 110 ml Balance 960 ml 110 ml Intake Oral 960 ml IV Total 110 ml # Voids 4 1 # Bowel Movements 1 Height (Feet): 5 Height (Inches): 4.00 Weight (Pounds): 191 General Appearance: WD/WN, no apparent distress, alert Cardiovascular: normal rate Respiratory/Chest: normal breath sounds, no respiratory distress Abdominal Exam: normal bowel sounds, non tender, soft Extremities: normal range of motion, non-tender Conner Kee NP Jun 02, 2018 11:26
--- NOTE | 2018-06-02 11:43 | Surgery Progress Note ---
Surgery Progress Note Subjective Additional Comments no acute events. resting comfortable. no n/v/f/c. labs improving Objective Last 24 Hour Vital Signs Date Time Temp Pulse Resp B/P (MAP) Pulse Ox O2 Delivery O2 Flow Rate FiO2 06/02/18 09:00 Nasal Cannula 2.0 06/02/18 08:00 98.0 74 20 127/84 (98) 92 06/02/18 06:35 79 126/84 (98) 06/02/18 04:00 98.5 20 177/94 (121) 99 06/02/18 00:00 97.8 83 20 135/89 (104) 98 06/01/18 21:00 Room Air 06/01/18 20:00 98.1 78 18 155/98 (117) 94 06/01/18 16:00 97.8 74 20 155/95 (115) 95 06/01/18 12:00 97.5 84 20 138/88 (105) 96 I&O Intake and Output 06/01/18 06/02/18 19:00 07:00 Intake Total 960 ml 110 ml Balance 960 ml 110 ml Intake Oral 960 ml IV Total 110 ml # Voids 4 1 # Bowel Movements 1 Drains: none Cardiovascular: RSR Respiratory: clear Abdomen: soft, non-tender, present bowel sounds, non-distended Extremities: no tenderness, no cyanosis Plan Problems: (1) Emesis (2) Abdominal pain Assessment & Plan: generalized abdominal discomfort, nausea, emesis now resolving leukocytosis improved. CT A/P with Moderate left hydronephrosis and hydroureter. Level of obstruction appears to be at the level of the left ureteropelvic junction. No definite obstructing mass or stone demonstrated, although there does appear to be slight thickening of the bladder wall in this region. Marked perinephric and periureteral fat stranding. This most likely represents associated acute pyelonephritis given reported clinical history of such, although could also represent fat stranding from acute urinary obstruction. 5 cm low-attenuation lesion demonstrating slightly higher than normal fluid attenuation coming off of the upper pole left kidney. This most likely represents a complex possibly proteinaceous cyst, but necrotic solid mass also possible. Recommend further evaluation with ultrasound to assess its cystic or solid Hypertrophy left adrenal, probably reactive secondary to the adjacent inflammation Subcentimeter low-attenuation hyperattenuating lesions coming off the right kidney, too small to definitively characterize although suspect proteinaceous cysts Markedly thickened endometrium. This could represent fluid or neoplasm. Further evaluation with pelvic sonography is recommended. Moderate left hydronephrosis, etiology not demonstrated. This is also described on recent CT scan. Note presence of a left ureteral jet in the bladder despite the presence of hydronephrosis Previously reported left upper pole renal lesion is demonstrated on this exam to represent a 4.4 cm simple cyst Minimal right hydronephrosis, etiology/significance uncertain Small right renal cyst incidentally noted Central uterine fluid collection. Please refer to separate CT abdomen and pelvis report Negative for gallstones or dilated bile ducts UTI -okay for diet as tolerated -trend labs -no acute surgical intervention planned' -Abx as per ID -will follow with recs (3) Sepsis (4) Vomiting Assessment & Plan: resolving (5) S/P BKA (below knee amputation) unilateral Star Molina Jun 02, 2018 11:43
--- NOTE | 2018-06-02 12:02 | General Progress Note ---
Assessment/Plan Problem List: (1) Schizophrenia ICD Codes: F20.9 - Schizophrenia, unspecified SNOMED: 36039187 (2) Anxiety ICD Codes: F41.9 - Anxiety disorder, unspecified SNOMED: 54051610 Status: not improved, unchanged Assessment/Plan Seroquel 100mg po qhs dec Trazodone 25mg po qhs cont Cymbalta Haldol dec IM Subjective Neurologic/Psychiatric: Reports: anxiety, depressed, emotional problems Allergies: Coded Allergies: Grits (Unverified Allergy, Unknown, 07/06/17) [place] (Unverified Allergy, Unknown, 07/06/17) Objective Last 24 Hour Vital Signs Date Time Temp Pulse Resp B/P (MAP) Pulse Ox O2 Delivery O2 Flow Rate FiO2 06/02/18 09:00 Nasal Cannula 2.0 06/02/18 08:00 98.0 74 20 127/84 (98) 92 06/02/18 06:35 79 126/84 (98) 06/02/18 04:00 98.5 20 177/94 (121) 99 06/02/18 00:00 97.8 83 20 135/89 (104) 98 06/01/18 21:00 Room Air 06/01/18 20:00 98.1 78 18 155/98 (117) 94 06/01/18 16:00 97.8 74 20 155/95 (115) 95 Intake and Output 06/01/18 06/02/18 19:00 07:00 Intake Total 960 ml 110 ml Balance 960 ml 110 ml Intake Oral 960 ml IV Total 110 ml # Voids 4 1 # Bowel Movements 1 Height (Feet): 5 Height (Inches): 4.00 Weight (Pounds): 191 General Appearance: WD/WN, alert, moderate distress, agitated, obese Azul Pearl MD Jun 02, 2018 12:02
--- NOTE | 2018-06-02 12:28 | NUR ---
NURSE NOTES: [facility] here made aware that pt has no complaints of nausea or vomiting has not had a bm today. Bowel sounds active abdomen soft to touch.
--- NOTE | 2018-06-02 14:15 | Infectious Diseases Prog Note ---
Assessment/Plan Assessment/Plan A Sepsis with leukocytosis and tachycardia. pyelonephritis. Bacteremia Left-sided hydronephrosis and hydroureter hypertension, schizophrenia, mild hypokalemia. RECOMMENDATION: CONTINUE Meropenem Will f/u cultures Subjective ROS Limited/Unobtainable: No Constitutional: Reports: no symptoms Respiratory: Reports: dry cough Cardiovascular: Reports: no symptoms Gastrointestinal/Abdominal: Reports: no symptoms Genitourinary: Reports: no symptoms Musculoskeletal: Reports: pain Allergies: Coded Allergies: Grits (Unverified Allergy, Unknown, 07/06/17) [place] (Unverified Allergy, Unknown, 07/06/17) Objective Vital Signs Last 24 Hour Vital Signs Date Time Temp Pulse Resp B/P (MAP) Pulse Ox O2 Delivery O2 Flow Rate FiO2 06/02/18 09:00 Nasal Cannula 2.0 06/02/18 08:00 98.0 74 20 127/84 (98) 92 06/02/18 06:35 79 126/84 (98) 06/02/18 04:00 98.5 20 177/94 (121) 99 06/02/18 00:00 97.8 83 20 135/89 (104) 98 06/01/18 21:00 Room Air 06/01/18 20:00 98.1 78 18 155/98 (117) 94 06/01/18 16:00 97.8 74 20 155/95 (115) 95 Height (Feet): 5 Height (Inches): 4.00 Weight (Pounds): 191 General Appearance: no acute distress HEENT: mucous membranes moist Respiratory/Chest: lungs clear Cardiovascular: normal rate Abdomen: soft, non tender Extremities: no edema, other - left BKA Neurologic/Psychiatric: abnormal gait, responsive Current Medications Medications (Trade) Dose Ordered Sig/William Route PRN Reason Start Time Stop Time Status Last Admin Dose Admin Acetaminophen (Tylenol) 650 mg Q4H PRN ORAL Mild Pain/Temp > 100.5 05/30/18 15:30 06/29/18 15:29 06/02/18 05:14 Baclofen (Lioresal) 10 mg BID ORAL 05/30/18 18:00 06/29/18 17:59 06/02/18 09:50 Clonazepam (KlonoPIN) 1 mg Q6H ORAL 05/30/18 16:00 06/06/18 15:59 06/02/18 09:51 Diphenhydramine HCl (Benadryl) 25 mg Q6H PRN ORAL Itching 05/30/18 15:45 06/29/18 15:44 Docusate Sodium (Colace) 100 mg TID ORAL 06/01/18 13:00 06/29/18 17:59 06/02/18 12:54 Duloxetine HCl (Cymbalta) 60 mg DAILY ORAL 05/31/18 09:00 06/30/18 08:59 06/02/18 09:52 Famotidine (Pepcid) 20 mg DAILY ORAL 06/02/18 09:00 07/02/18 08:59 06/02/18 09:51 Gabapentin (Neurontin) 200 mg THREE TIMES A DAY ORAL 05/30/18 18:00 06/29/18 17:59 06/02/18 12:54 Magnesium Hydroxide (Mom) 30 ml DAILYPRN PRN ORAL Constipation 05/30/18 15:45 06/29/18 15:44 Meropenem 500 mg/ Sodium Chloride 55 ml @ 110 mls/hr EVERY 8 HOURS IVPB 06/01/18 14:00 06/06/18 13:59 06/02/18 05:14 Multivitamins (Multivitamins) 1 tab DAILY ORAL 05/31/18 09:00 06/30/18 08:59 06/02/18 09:50 Ondansetron HCl (Zofran) 4 mg Q6H PRN IV Nausea & Vomiting 05/30/18 15:45 06/29/18 15:44 Potassium Chloride (K-Dur) 40 meq DAILY ORAL 06/02/18 09:00 07/02/18 08:59 06/02/18 09:51 Quetiapine Fumarate (SEROquel) 50 mg BEDTIME ORAL 06/01/18 21:00 07/01/18 20:59 06/01/18 20:38 Sucralfate (Carafate) 1 gm FOUR TIMES A DAY ORAL 05/30/18 18:00 06/29/18 17:59 06/02/18 12:54 Trazodone HCl (Desyrel) 25 mg BEDTIME ORAL 06/01/18 21:00 07/01/18 20:59 06/01/18 20:38 Jose Solis MD 6, 2019 14:15
--- NOTE | 2018-06-02 14:25 | NUR ---
NURSE NOTES: Dr. 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 vein are scared. Pt stated that vein in her hands are only suitable for blood withdrawal . Dr Rubio changed orders
[2018-06-02] MEDS: Bactrim-DS 1 tab ORAL SCH ×2 (14:53→18:00)
--- NOTE | 2018-06-02 15:01 | Nephrology Progress Note ---
Assessment/Plan Problem List: (1) Dehydration (2) Hypoalbuminemia (3) Vomiting (4) Seizure disorder Assessment Dehydration UTI HypoNatremia, Hypokalemia, Proteinuria, HypoAlbuminemia HTN Sz disorder Plan DC IV fluids K Phos as needed Monitor renal parameters Antibiotics Gastric support ? DC planning Subjective ROS Limited/Unobtainable: No Constitutional: Reports: malaise, weakness Objective Objective Last 24 Hour Vital Signs Date Time Temp Pulse Resp B/P (MAP) Pulse Ox O2 Delivery O2 Flow Rate FiO2 06/02/18 09:00 Nasal Cannula 2.0 06/02/18 08:00 98.0 74 20 127/84 (98) 92 06/02/18 06:35 79 126/84 (98) 06/02/18 04:00 98.5 20 177/94 (121) 99 06/02/18 00:00 97.8 83 20 135/89 (104) 98 06/01/18 21:00 Room Air 06/01/18 20:00 98.1 78 18 155/98 (117) 94 06/01/18 16:00 97.8 74 20 155/95 (115) 95 Intake and Output 06/01/18 06/02/18 18:59 06:59 Intake Total 960 ml 110 ml Balance 960 ml 110 ml Intake Oral 960 ml IV Total 110 ml # Voids 4 1 # Bowel Movements 1 Height (Feet): 5 Height (Inches): 4.00 Weight (Pounds): 191 General Appearance: no apparent distress Objective no change in PE Derrell Hatch MD Jun 02, 2018 15:01
--- NOTE | 2018-06-02 16:22 | NUR ---
NURSE NOTES: Pt no longer using nasal canula breathing room air. Able to verbalize known needs. Informed of possible side effects of antibiotics " Im okay I take pills fine" Current plan of care will be followed.
--- NOTE | 2018-06-02 16:38 | Diagnostic Imaging Report ---
Indication: Cough Technique: One view of the chest Comparison: 05/30/2018 Findings: Lungs and pleural spaces are clear. Heart size is normal Impression: No acute process
--- NOTE | 2018-06-02 17:10 | General Progress Note ---
Assessment/Plan Assessment/Plan Assessment/Plan: # Leukocytosis is likely realated to infection, reactive process, on abx at this time, potentially had acute pyelonephritis on presentation -> have reviewed peripheral smear and bandemia/neutrophilia noted --> continue antibiotics if they have been started by ID team --> monitor for resolution # Left kidney mass -- 5 cm low-attenuation lesion demonstrating slightly higher than normal fluid attenuation coming off of the upper pole left kidney --> likely represents a complex possibly proteinaceous cyst, but necrotic solid mass also possible. --> gyen onc and renal recs appreciated # Dehydration --> ivf have been started by renal --> anti-nausea meds improved # S/P BKA (below knee amputation) unilateral --> surg recs appreciated # Anxiety --> as per psych # Left hydronephrosis The timing of this note does not necessarily reflect the time of the patient was seen. Greatly appreciate consultation! Subjective Constitutional: Denies: no symptoms, chills, diaphoresis, fever, malaise, weakness, other HEENT: Denies: no symptoms, eye pain, blurred vision, tearing, double vision, ear pain, ear discharge, nose pain, nose congestion, throat pain, throat swelling, mouth pain, mouth swelling, other Cardiovascular: Denies: no symptoms, chest pain, edema, irregular heart rate, lightheadedness, palpitations, syncope, other Respiratory: Denies: no symptoms, cough, orthopnea, shortness of breath, SOB with excertion, SOB at rest, sputum, stridor, wheezing, other Gastrointestinal/Abdominal: Denies: no symptoms, abdomen distended, abdominal pain, black stools, tarry stools, blood in stool, constipated, diarrhea, difficulty swallowing, nausea, poor appetite, poor fluid intake, rectal bleeding , vomiting, other Neurologic/Psychiatric: Denies: no symptoms, anxiety, depressed, emotional problems, headache, numbness, paresthesia, pre-existing deficit, seizure, tingling, tremors, weakness, other Endocrine: Denies: no symptoms, excessive sweating, flushing, intolerance to cold, intolerance to heat, increased hunger, increased thirst, increased urine, unexplained weight gain, unexplained weight loss, other Allergies: Coded Allergies: Grits (Unverified Allergy, Unknown, 07/06/17) [place] (Unverified Allergy, Unknown, 07/06/17) Subjective 06/01: seen by bedside, leukocytosis improved, abd pain still present, no events 06/02: no events, wbc yesterday improved, less n/v Objective Last 24 Hour Vital Signs Date Time Temp Pulse Resp B/P (MAP) Pulse Ox O2 Delivery O2 Flow Rate FiO2 06/02/18 16:00 98.0 80 16 168/90 (116) 98 06/02/18 12:00 98.6 84 16 106/54 (71) 06/02/18 09:00 Nasal Cannula 2.0 06/02/18 08:00 98.0 74 20 127/84 (98) 92 06/02/18 06:35 79 126/84 (98) 06/02/18 04:00 98.5 20 177/94 (121) 99 06/02/18 00:00 97.8 83 20 135/89 (104) 98 06/01/18 21:00 Room Air 06/01/18 20:00 98.1 78 18 155/98 (117) 94 Intake and Output 06/01/18 06/02/18 18:59 06:59 Intake Total 960 ml 110 ml Balance 960 ml 110 ml Intake Oral 960 ml IV Total 110 ml # Voids 4 1 # Bowel Movements 1 Height (Feet): 5 Height (Inches): 4.00 Weight (Pounds): 191 Objective General Appearance: well appearing, nad Head: normocephalic EENT: PERRL/EOMI, normal ENT inspection Neck: supple Respiratory: normal breath sounds, no respiratory distress Cardiovascular: normal rate Gastrointestinal: normal inspection, non tender, soft, nd Genitourinary: no CVA tenderness Musculoskeletal: normal inspection, back normal Colby Canada MD Jun 02, 2018 17:10
--- NOTE | 2018-06-02 19:08 | NUR ---
CASE MANAGEMENT: REVIEW SI: HYPOKALEMIA . PYELONEPHRITIS T 98.0 HR 80 RR 16 BP 168/90 SAT 98% NC/2L IS: BACTRIM DS PO BID K-DUR PO QD MED/SURG STATUS DCP: PATIENT IS FROM [facility]
--- NOTE | 2018-06-02 19:49 | NUR ---
HAND-OFF: Report given to Shantanu HINDS.
--- NOTE | 2018-06-02 19:55 | NUR ---
NURSE NOTES: Received patient awake in bed, able to verbalize needs, no s/s of acute distress. No c/o of pain at this time. Bed gutierrez full on the floor, I emptied it in the toilet. IV site on right FA no longer patent, dc at this time. Dr Solis aware. Bed on lowest position, 2 side rails up, call light and belongings within reach.
[2018-06-02] MEDS: TraZODone HCl 25 mg tablet ORAL SCH (21:04)
--- NOTE | 2018-06-02 22:13 | General Progress Note ---
Assessment/Plan Problem List: (1) Vomiting ICD Codes: R11.10 - Vomiting, unspecified SNOMED: 998523114 (2) Dehydration ICD Codes: E86.0 - Dehydration SNOMED: 41044477 (3) Anxiety ICD Codes: F41.9 - Anxiety disorder, unspecified SNOMED: 66648395 (4) Hypoalbuminemia ICD Codes: E88.09 - Other disorders of plasma-protein metabolism, not elsewhere classified SNOMED: 695961521 (5) Seizure disorder ICD Codes: G40.909 - Epilepsy, unspecified, not intractable, without status epilepticus SNOMED: 531505820 (6) Edema ICD Codes: R60.9 - Edema, unspecified SNOMED: 250188405, 048184006 (7) HTN (hypertension) ICD Codes: I10 - Essential (primary) hypertension SNOMED: 63812594 (8) Emesis ICD Codes: R11.10 - Vomiting, unspecified SNOMED: 488802390 Qualifiers: Qualified Codes: R11.2 - Nausea with vomiting, unspecified (9) Abdominal pain ICD Codes: R10.9 - Unspecified abdominal pain SNOMED: 45063146 Qualifiers: Qualified Codes: R10.9 - Unspecified abdominal pain Status: progressing Assessment/Plan chronic pain consulted dr belcher cough hypoxic orderd cxr and consulted pulmonary ifeanyi machucazure vitals stable Subjective ROS Limited/Unobtainable: Yes Allergies: Coded Allergies: Grits (Unverified Allergy, Unknown, 07/06/17) [place] (Unverified Allergy, Unknown, 07/06/17) Objective Last 24 Hour Vital Signs Date Time Temp Pulse Resp B/P (MAP) Pulse Ox O2 Delivery O2 Flow Rate FiO2 06/02/18 20:00 98.6 82 18 134/84 (101) 98 06/02/18 20:00 Nasal Cannula 2.0 06/02/18 16:00 98.0 80 16 168/90 (116) 98 06/02/18 12:00 98.6 84 16 106/54 (71) 06/02/18 09:00 Nasal Cannula 2.0 06/02/18 08:00 98.0 74 20 127/84 (98) 92 06/02/18 06:35 79 126/84 (98) 06/02/18 04:00 98.5 20 177/94 (121) 99 06/02/18 00:00 97.8 83 20 135/89 (104) 98 Intake and Output 06/01/18 06/02/18 19:00 07:00 Intake Total 960 ml 110 ml Balance 960 ml 110 ml Intake Oral 960 ml IV Total 110 ml # Voids 4 1 # Bowel Movements 1 Height (Feet): 5 Height (Inches): 4.00 Weight (Pounds): 191 Cardiovascular: normal rate Respiratory/Chest: chest wall non-tender Abdomen: soft Isela Rubio MD Jun 02, 2018 22:13
[2018-06-03] VITALS: BP 123/84
[2018-06-03 04:00] VITALS: BP 128/82
--- NOTE | 2018-06-03 07:02 | NUR ---
HAND-OFF: Report given to GUZMAN Miranda.
[2018-06-03 07:46] LABS: HEMOGLOBIN 13.9 G/DL (12.0-16.0); MEAN CORPUSCULAR VOLUME 98 FL (80-99); PLATELET COUNT 291 K/UL (150-450); RED BLOOD COUNT 4.29 M/UL (4.20-5.40); RED CELL DISTRIBUTION WIDTH 13.2 % (11.6-14.8)
--- NOTE | 2018-06-03 07:46 | NUR ---
NURSE NOTES: Pt required set up for breakfast. remains on full liquid diet. Has not had a bowel movement. Denies nausea at this time. Call light is in reach. Refused periwick, bed gutierrez in reach. Pt wants to use bedpan without assistance yet spills urine on the floor. Hebert placed on floor for infection control and safety measures. Current plan of care will followed
[2018-06-03 08:00] VITALS: BP 121/76
[2018-06-03 08:00] LABS: ANION GAP 7 mmol/L (5-15); BLOOD UREA NITROGEN 7 mg/dL (7-18); CARBON DIOXIDE 31 MMOL/L (21-32); CHLORIDE 101 MMOL/L (98-107); CREATININE 0.9 MG/DL (0.55-1.30); POTASSIUM 4.1 MMOL/L (3.5-5.1); SODIUM 139 MMOL/L (136-145)
--- NOTE | 2018-06-03 08:02 | NUR ---
NURSE NOTES: Dr Rubio phoned gave orders to discharge pt back to [facility], disconitinue all hospital medications, continue home medications. Give Bactrim Po for 7 additional more days. Pt has not had a bowel movement , gave orders for Coalce 100 mg one dose now, Mom of 30 cc one dose now
[2018-06-03] MEDS ORDERED: Docusate 100mg cap ORAL SCH (08:15)
[2018-06-03] MEDS ORDERED: Milk of Magnesia 30ml Ud ORAL SCH (08:15)
[2018-06-03] MEDS: Docusate 100mg cap ORAL SCH ×2 (09:00→13:00)
[2018-06-03] MEDS: Bactrim-DS 1 tab ORAL SCH (10:19)
[2018-06-03] MEDS: Sucralfate 1gm tab ORAL SCH ×2 (10:19→13:36)
[2018-06-03] MEDS: DULoxetine 30mg cap ORAL SCH (10:20)
--- NOTE | 2018-06-03 11:14 | GI Progress Note ---
Assessment/Plan Problems: (1) Delusional disorder ICD Codes: F22 - Delusional disorders SNOMED: 68459989 (2) Abdominal pain ICD Codes: R10.9 - Unspecified abdominal pain SNOMED: 24902904 Qualifiers: Qualified Codes: R10.9 - Unspecified abdominal pain (3) Anxiety ICD Codes: F41.9 - Anxiety disorder, unspecified SNOMED: 76971458 (4) Dehydration ICD Codes: E86.0 - Dehydration SNOMED: 51252244 (5) Vomiting ICD Codes: R11.10 - Vomiting, unspecified SNOMED: 728803938 Status: stable Status Narrative Discussed with Dr. Hinds Assessment/Plan Abdominal ultrasound reviewed - Moderate left hydronephrosis, etiology not demonstrated. - Previously reported left upper pole renal lesion is demonstrated on this exam to represent a 4.4 cm simple cyst - Negative for gallstones or dilated bile ducts abdominal ultrasound reviewed At this time the patient denies any nausea vomiting or diarrhea. Symptomatic treatment Okay to advance diet Electrolyte correction Zofran as needed PPI Follow labs Outpatient GI procedures DC planning The patient was seen and examined at bedside and all new and available data was reviewed in the patients chart. I agree with the above findings, impression and plan. (Patient seen earlier today. Signature stamp does not reflect patient encounter time.). - Jared Hinds MD Subjective Subjective Denies any nausea vomiting or diarrhea. Objective Last 24 Hour Vital Signs Date Time Temp Pulse Resp B/P (MAP) Pulse Ox O2 Delivery O2 Flow Rate FiO2 06/03/18 04:00 98.2 94 20 128/82 (97) 98 06/03/18 00:00 99.8 94 20 123/84 (97) 97 06/02/18 20:00 98.6 82 18 134/84 (101) 98 06/02/18 20:00 Nasal Cannula 2.0 06/02/18 16:00 98.0 80 16 168/90 (116) 98 06/02/18 12:00 98.6 84 16 106/54 (71) Intake and Output 06/02/18 06/03/18 19:00 07:00 Intake Total 240 ml Balance 240 ml Intake Oral 240 ml # Voids 2 2 Laboratory Tests Test 06/03/18 05:59 White Blood Count 18.0 K/UL (4.8-10.8) H Red Blood Count 4.29 M/UL (4.20-5.40) Hemoglobin 13.9 G/DL (12.0-16.0) Hematocrit 42.0 % (37.0-47.0) Mean Corpuscular Volume 98 FL (80-99) Mean Corpuscular Hemoglobin 32.4 PG (27.0-31.0) H Mean Corpuscular Hemoglobin Concent 33.1 G/DL (32.0-36.0) Red Cell Distribution Width 13.2 % (11.6-14.8) Platelet Count 291 K/UL (150-450) Mean Platelet Volume 6.9 FL (6.5-10.1) Neutrophils (%) (Auto) % (45.0-75.0) Lymphocytes (%) (Auto) % (20.0-45.0) Monocytes (%) (Auto) % (1.0-10.0) Eosinophils (%) (Auto) % (0.0-3.0) Basophils (%) (Auto) % (0.0-2.0) Differential Total Cells Counted 100 Neutrophils % (Manual) 74 % (45-75) Lymphocytes % (Manual) 14 % (20-45) L Monocytes % (Manual) 12 % (1-10) H Eosinophils % (Manual) 0 % (0-3) Basophils % (Manual) 0 % (0-2) Band Neutrophils 0 % (0-8) Platelet Estimate Adequate Platelet Morphology Normal Red Blood Cell Morphology Normal Sodium Level 139 MMOL/L (136-145) Potassium Level 4.1 MMOL/L (3.5-5.1) Chloride Level 101 MMOL/L (98-107) Carbon Dioxide Level 31 MMOL/L (21-32) Anion Gap 7 mmol/L (5-15) Blood Urea Nitrogen 7 mg/dL (7-18) Creatinine 0.9 MG/DL (0.55-1.30) Estimat Glomerular Filtration Rate > 60 mL/min (>60) Glucose Level 99 MG/DL (74-106) Calcium Level 10.0 MG/DL (8.5-10.1) Height (Feet): 5 Height (Inches): 4.00 Weight (Pounds): 191 General Appearance: WD/WN, no apparent distress, alert Cardiovascular: normal rate Respiratory/Chest: normal breath sounds, no respiratory distress Abdominal Exam: normal bowel sounds, non tender, soft Extremities: normal range of motion, non-tender Conner Kee NP Jun 03, 2018 11:14
--- NOTE | 2018-06-03 11:15 | NUR ---
*-* DISCHARGE PLANNING *-* PATIENT HAS BEEN REFERRED BACK TO: [facility] P: [phone] F:[phone] F:[phone]
--- NOTE | 2018-06-03 11:40 | NUR ---
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
--- NOTE | 2018-06-03 11:59 | General Progress Note ---
Assessment/Plan Problem List: (1) Schizophrenia ICD Codes: F20.9 - Schizophrenia, unspecified SNOMED: 91388841 (2) Anxiety ICD Codes: F41.9 - Anxiety disorder, unspecified SNOMED: 94201020 Status: unchanged Assessment/Plan Seroquel 150mg po qhs dec Trazodone 25mg po qhs cont Cymbalta Haldol dec IM Subjective Neurologic/Psychiatric: Reports: anxiety, depressed, emotional problems Allergies: Coded Allergies: Grits (Unverified Allergy, Unknown, 07/06/17) [place] (Unverified Allergy, Unknown, 07/06/17) Objective Last 24 Hour Vital Signs Date Time Temp Pulse Resp B/P (MAP) Pulse Ox O2 Delivery O2 Flow Rate FiO2 06/03/18 09:00 Room Air 06/03/18 08:00 99.0 86 18 121/76 (91) 95 06/03/18 04:00 98.2 94 20 128/82 (97) 98 06/03/18 00:00 99.8 94 20 123/84 (97) 97 06/02/18 20:00 98.6 82 18 134/84 (101) 98 06/02/18 20:00 Nasal Cannula 2.0 06/02/18 16:00 98.0 80 16 168/90 (116) 98 06/02/18 12:00 98.6 84 16 106/54 (71) Intake and Output 06/02/18 06/03/18 19:00 07:00 Intake Total 240 ml Balance 240 ml Intake Oral 240 ml # Voids 2 2 Laboratory Tests 06/03/18 05:59: White Blood Count 18.0H, Red Blood Count 4.29, Hemoglobin 13.9, Hematocrit 42.0 , Mean Corpuscular Volume 98, Mean Corpuscular Hemoglobin 32.4H, Mean Corpuscular Hemoglobin Concent 33.1, Red Cell Distribution Width 13.2, Platelet Count 291, Mean Platelet Volume 6.9, Neutrophils (%) (Auto) , Lymphocytes (%) ( Auto) , Monocytes (%) (Auto) , Eosinophils (%) (Auto) , Basophils (%) (Auto) , Differential Total Cells Counted 100, Neutrophils % (Manual) 74, Lymphocytes % ( Manual) 14L, Monocytes % (Manual) 12H, Eosinophils % (Manual) 0, Basophils % ( Manual) 0, Band Neutrophils 0, Platelet Estimate Adequate, Platelet Morphology Normal, Red Blood Cell Morphology Normal, Sodium Level 139, Potassium Level 4.1 , Chloride Level 101, Carbon Dioxide Level 31, Anion Gap 7, Blood Urea Nitrogen 7, Creatinine 0.9, Estimat Glomerular Filtration Rate > 60, Glucose Level 99, Calcium Level 10.0 Height (Feet): 5 Height (Inches): 4.00 Weight (Pounds): 191 General Appearance: WD/WN, alert, obese Neurologic: oriented x 3, responsive, depressed affect Azul Pearl MD Jun 03, 2018 11:59
--- NOTE | 2018-06-03 12:05 | Infectious Diseases Prog Note ---
Assessment/Plan Assessment/Plan A Sepsis leukocytosis pyelonephritis. Bacteremia Left-sided hydronephrosis and hydroureter hypertension, schizophrenia, mild hypokalemia. RECOMMENDATION: CONTINUE Bactrim Patient has no IV Access Will f/u cultures Subjective ROS Limited/Unobtainable: No Constitutional: Reports: no symptoms Respiratory: Reports: no symptoms Cardiovascular: Reports: no symptoms Gastrointestinal/Abdominal: Reports: no symptoms Genitourinary: Reports: no symptoms Musculoskeletal: Reports: pain, other - bilatertal flanks Allergies: Coded Allergies: Grits (Unverified Allergy, Unknown, 07/06/17) [place] (Unverified Allergy, Unknown, 07/06/17) Objective Vital Signs Last 24 Hour Vital Signs Date Time Temp Pulse Resp B/P (MAP) Pulse Ox O2 Delivery O2 Flow Rate FiO2 06/03/18 09:00 Room Air 06/03/18 08:00 99.0 86 18 121/76 (91) 95 06/03/18 04:00 98.2 94 20 128/82 (97) 98 06/03/18 00:00 99.8 94 20 123/84 (97) 97 06/02/18 20:00 98.6 82 18 134/84 (101) 98 06/02/18 20:00 Nasal Cannula 2.0 06/02/18 16:00 98.0 80 16 168/90 (116) 98 Height (Feet): 5 Height (Inches): 4.00 Weight (Pounds): 191 General Appearance: no acute distress HEENT: mucous membranes moist Respiratory/Chest: lungs clear Cardiovascular: normal rate Abdomen: soft, non tender Extremities: no edema Neurologic/Psychiatric: alert, responsive Laboratory Tests Test 06/03/18 05:59 White Blood Count 18.0 K/UL (4.8-10.8) H Red Blood Count 4.29 M/UL (4.20-5.40) Hemoglobin 13.9 G/DL (12.0-16.0) Hematocrit 42.0 % (37.0-47.0) Mean Corpuscular Volume 98 FL (80-99) Mean Corpuscular Hemoglobin 32.4 PG (27.0-31.0) H Mean Corpuscular Hemoglobin Concent 33.1 G/DL (32.0-36.0) Red Cell Distribution Width 13.2 % (11.6-14.8) Platelet Count 291 K/UL (150-450) Mean Platelet Volume 6.9 FL (6.5-10.1) Neutrophils (%) (Auto) % (45.0-75.0) Lymphocytes (%) (Auto) % (20.0-45.0) Monocytes (%) (Auto) % (1.0-10.0) Eosinophils (%) (Auto) % (0.0-3.0) Basophils (%) (Auto) % (0.0-2.0) Differential Total Cells Counted 100 Neutrophils % (Manual) 74 % (45-75) Lymphocytes % (Manual) 14 % (20-45) L Monocytes % (Manual) 12 % (1-10) H Eosinophils % (Manual) 0 % (0-3) Basophils % (Manual) 0 % (0-2) Band Neutrophils 0 % (0-8) Platelet Estimate Adequate Platelet Morphology Normal Red Blood Cell Morphology Normal Sodium Level 139 MMOL/L (136-145) Potassium Level 4.1 MMOL/L (3.5-5.1) Chloride Level 101 MMOL/L (98-107) Carbon Dioxide Level 31 MMOL/L (21-32) Anion Gap 7 mmol/L (5-15) Blood Urea Nitrogen 7 mg/dL (7-18) Creatinine 0.9 MG/DL (0.55-1.30) Estimat Glomerular Filtration Rate > 60 mL/min (>60) Glucose Level 99 MG/DL (74-106) Calcium Level 10.0 MG/DL (8.5-10.1) Current Medications Medications (Trade) Dose Ordered Sig/William Route PRN Reason Start Time Stop Time Status Last Admin Dose Admin Acetaminophen (Tylenol) 650 mg Q4H PRN ORAL Mild Pain/Temp > 100.5 05/30/18 15:30 06/29/18 15:29 06/02/18 16:02 Baclofen (Lioresal) 10 mg BID ORAL 05/30/18 18:00 06/29/18 17:59 06/03/18 10:19 Clonazepam (KlonoPIN) 1 mg Q6H ORAL 05/30/18 16:00 06/06/18 15:59 06/03/18 10:19 Diphenhydramine HCl (Benadryl) 25 mg Q6H PRN ORAL Itching 05/30/18 15:45 06/29/18 15:44 Docusate Sodium (Colace) 100 mg TID ORAL 06/01/18 13:00 06/29/18 17:59 06/02/18 17:58 Duloxetine HCl (Cymbalta) 60 mg DAILY ORAL 05/31/18 09:00 06/30/18 08:59 06/03/18 10:20 Famotidine (Pepcid) 20 mg DAILY ORAL 06/02/18 09:00 07/02/18 08:59 06/03/18 10:20 Gabapentin (Neurontin) 200 mg THREE TIMES A DAY ORAL 05/30/18 18:00 06/29/18 17:59 06/03/18 10:19 Magnesium Hydroxide (Mom) 30 ml DAILYPRN PRN ORAL Constipation 05/30/18 15:45 06/29/18 15:44 Multivitamins (Multivitamins) 1 tab DAILY ORAL 05/31/18 09:00 06/30/18 08:59 06/03/18 10:20 Ondansetron HCl (Zofran) 4 mg Q6H PRN IV Nausea & Vomiting 05/30/18 15:45 06/29/18 15:44 Potassium Chloride (K-Dur) 40 meq DAILY ORAL 06/02/18 09:00 07/02/18 08:59 06/02/18 09:51 Quetiapine Fumarate (SEROquel) 50 mg BEDTIME ORAL 06/01/18 21:00 07/01/18 20:59 06/02/18 21:04 Sucralfate (Carafate) 1 gm FOUR TIMES A DAY ORAL 05/30/18 18:00 06/29/18 17:59 06/03/18 10:19 Trazodone HCl (Desyrel) 25 mg BEDTIME ORAL 06/01/18 21:00 07/01/18 20:59 06/02/18 21:04 Trimethoprim/ Sulfamethoxazole (Bactrim-DS) 1 tab TWICE A DAY ORAL 06/02/18 14:30 06/09/18 14:29 06/03/18 10:19 Jose Solis MD Jun 03, 2018 12:05
--- NOTE | 2018-06-03 13:57 | Surgery Progress Note ---
Surgery Progress Note Subjective Additional Comments leukocytosis worse today low grade fevers CXR okay US noted. dilated ureter exam unchanged. on Abx Objective Last 24 Hour Vital Signs Date Time Temp Pulse Resp B/P (MAP) Pulse Ox O2 Delivery O2 Flow Rate FiO2 06/03/18 09:00 Room Air 06/03/18 08:00 99.0 86 18 121/76 (91) 95 06/03/18 04:00 98.2 94 20 128/82 (97) 98 06/03/18 00:00 99.8 94 20 123/84 (97) 97 06/02/18 20:00 98.6 82 18 134/84 (101) 98 06/02/18 20:00 Nasal Cannula 2.0 06/02/18 16:00 98.0 80 16 168/90 (116) 98 I&O Intake and Output 06/02/18 06/03/18 19:00 07:00 Intake Total 240 ml Balance 240 ml Intake Oral 240 ml # Voids 2 2 Dressing: other Wound: other Drains: none Cardiovascular: RSR Respiratory: clear Abdomen: soft, non-tender, present bowel sounds, non-distended Extremities: no cyanosis Laboratory Tests Test 06/03/18 05:59 White Blood Count 18.0 K/UL (4.8-10.8) H Red Blood Count 4.29 M/UL (4.20-5.40) Hemoglobin 13.9 G/DL (12.0-16.0) Hematocrit 42.0 % (37.0-47.0) Mean Corpuscular Volume 98 FL (80-99) Mean Corpuscular Hemoglobin 32.4 PG (27.0-31.0) H Mean Corpuscular Hemoglobin Concent 33.1 G/DL (32.0-36.0) Red Cell Distribution Width 13.2 % (11.6-14.8) Platelet Count 291 K/UL (150-450) Mean Platelet Volume 6.9 FL (6.5-10.1) Neutrophils (%) (Auto) % (45.0-75.0) Lymphocytes (%) (Auto) % (20.0-45.0) Monocytes (%) (Auto) % (1.0-10.0) Eosinophils (%) (Auto) % (0.0-3.0) Basophils (%) (Auto) % (0.0-2.0) Differential Total Cells Counted 100 Neutrophils % (Manual) 74 % (45-75) Lymphocytes % (Manual) 14 % (20-45) L Monocytes % (Manual) 12 % (1-10) H Eosinophils % (Manual) 0 % (0-3) Basophils % (Manual) 0 % (0-2) Band Neutrophils 0 % (0-8) Platelet Estimate Adequate Platelet Morphology Normal Red Blood Cell Morphology Normal Sodium Level 139 MMOL/L (136-145) Potassium Level 4.1 MMOL/L (3.5-5.1) Chloride Level 101 MMOL/L (98-107) Carbon Dioxide Level 31 MMOL/L (21-32) Anion Gap 7 mmol/L (5-15) Blood Urea Nitrogen 7 mg/dL (7-18) Creatinine 0.9 MG/DL (0.55-1.30) Estimat Glomerular Filtration Rate > 60 mL/min (>60) Glucose Level 99 MG/DL (74-106) Calcium Level 10.0 MG/DL (8.5-10.1) Plan Problems: (1) Emesis (2) Abdominal pain Assessment & Plan: generalized abdominal discomfort, nausea, emesis now resolving leukocytosis improved. CT A/P with Moderate left hydronephrosis and hydroureter. Level of obstruction appears to be at the level of the left ureteropelvic junction. No definite obstructing mass or stone demonstrated, although there does appear to be slight thickening of the bladder wall in this region. Marked perinephric and periureteral fat stranding. This most likely represents associated acute pyelonephritis given reported clinical history of such, although could also represent fat stranding from acute urinary obstruction. 5 cm low-attenuation lesion demonstrating slightly higher than normal fluid attenuation coming off of the upper pole left kidney. This most likely represents a complex possibly proteinaceous cyst, but necrotic solid mass also possible. Recommend further evaluation with ultrasound to assess its cystic or solid Hypertrophy left adrenal, probably reactive secondary to the adjacent inflammation Subcentimeter low-attenuation hyperattenuating lesions coming off the right kidney, too small to definitively characterize although suspect proteinaceous cysts Markedly thickened endometrium. This could represent fluid or neoplasm. Further evaluation with pelvic sonography is recommended. Moderate left hydronephrosis, etiology not demonstrated. This is also described on recent CT scan. Note presence of a left ureteral jet in the bladder despite the presence of hydronephrosis Previously reported left upper pole renal lesion is demonstrated on this exam to represent a 4.4 cm simple cyst Minimal right hydronephrosis, etiology/significance uncertain Small right renal cyst incidentally noted Central uterine fluid collection. Please refer to separate CT abdomen and pelvis report Negative for gallstones or dilated bile ducts UTI -okay for diet as tolerated -trend labs -no acute surgical intervention planned' -Abx as per ID -will follow with recs (3) Sepsis (4) Vomiting Assessment & Plan: resolving (5) S/P BKA (below knee amputation) unilateral Star Molina Jun 03, 2018 13:57
--- NOTE | 2018-06-03 14:16 | Diagnostic Imaging Report ---
APPROVED REPORT CPT Code: 60437 Present Symptoms Comments: RIGHT LEG PAIN RIGHT LEG: Venous imaging reveals a patent deep venous system. There is no evidence of thrombus within the femoral, popliteal or tibial segments. The greater saphenous vein is also within normal limits. Doppler indicates normal spontaneous flow within these segments.
--- NOTE | 2018-06-03 14:42 | NUR ---
NURSE NOTES: Call placed to [facility] SENIOR MEDIA DIRECTOR to inquire on discharge diet for pt. Gave okay to upgrade diet to regular.
--- NOTE | 2018-06-03 15:30 | NUR ---
NURSE NOTES: [facility] Provided with discharge packet, with, Ambulance personnel Stable condition. Put on belongings clothing which she brought with her. Breathing room air. Report given to Kellen at [facility]. They were expecting pt to return. Report given plan of care while here provided. Pt will continue antibiotics upon discharge
--- NOTE | 2018-06-03 15:43 | NUR ---
NURSE NOTES: Unable to give an interfacility report in order for the Pt to be Discharged: nursing candle making supervisor at the facility is unavailable. Will try later
--- NOTE | 2018-06-03 16:03 | Nephrology Progress Note ---
Assessment/Plan Problem List: (1) Dehydration (2) Hypoalbuminemia (3) Leukocytosis (4) Vomiting (5) Seizure disorder Assessment Dehydration UTI HypoNatremia, Hypokalemia, Proteinuria, HypoAlbuminemia HTN Sz disorder Plan DC IV fluids K Phos as needed Monitor renal parameters Antibiotics Gastric support per ID Subjective ROS Limited/Unobtainable: No Constitutional: Reports: malaise Objective Objective Last 24 Hour Vital Signs Date Time Temp Pulse Resp B/P (MAP) Pulse Ox O2 Delivery O2 Flow Rate FiO2 06/03/18 09:00 Room Air 06/03/18 08:00 99.0 86 18 121/76 (91) 95 06/03/18 04:00 98.2 94 20 128/82 (97) 98 06/03/18 00:00 99.8 94 20 123/84 (97) 97 06/02/18 20:00 98.6 82 18 134/84 (101) 98 06/02/18 20:00 Nasal Cannula 2.0 Intake and Output 06/02/18 06/03/18 19:00 07:00 Intake Total 240 ml Balance 240 ml Intake Oral 240 ml # Voids 2 2 Laboratory Tests 06/03/18 05:59: White Blood Count 18.0H, Red Blood Count 4.29, Hemoglobin 13.9, Hematocrit 42.0 , Mean Corpuscular Volume 98, Mean Corpuscular Hemoglobin 32.4H, Mean Corpuscular Hemoglobin Concent 33.1, Red Cell Distribution Width 13.2, Platelet Count 291, Mean Platelet Volume 6.9, Neutrophils (%) (Auto) , Lymphocytes (%) ( Auto) , Monocytes (%) (Auto) , Eosinophils (%) (Auto) , Basophils (%) (Auto) , Differential Total Cells Counted 100, Neutrophils % (Manual) 74, Lymphocytes % ( Manual) 14L, Monocytes % (Manual) 12H, Eosinophils % (Manual) 0, Basophils % ( Manual) 0, Band Neutrophils 0, Platelet Estimate Adequate, Platelet Morphology Normal, Red Blood Cell Morphology Normal, Sodium Level 139, Potassium Level 4.1 , Chloride Level 101, Carbon Dioxide Level 31, Anion Gap 7, Blood Urea Nitrogen 7, Creatinine 0.9, Estimat Glomerular Filtration Rate > 60, Glucose Level 99, Calcium Level 10.0 Height (Feet): 5 Height (Inches): 4.00 Weight (Pounds): 191 General Appearance: no apparent distress Objective no change in PE Derrell Hatch MD Jun 03, 2018 16:03
--- NOTE | 2018-06-03 17:10 | General Progress Note ---
Assessment/Plan Assessment/Plan Assessment/Plan: # Leukocytosis is likely realated to infection, reactive process, on abx at this time, potentially had acute pyelonephritis on presentation -> have reviewed peripheral smear and bandemia/neutrophilia noted --> continue antibiotics if they have been started by ID team --> monitor for resolution # Left kidney mass -- 5 cm low-attenuation lesion demonstrating slightly higher than normal fluid attenuation coming off of the upper pole left kidney --> likely represents a complex possibly proteinaceous cyst, but necrotic solid mass also possible. --> gyen onc and renal recs appreciated # Dehydration --> ivf have been started by renal --> anti-nausea meds improved # S/P BKA (below knee amputation) unilateral --> surg recs appreciated # Anxiety --> as per psych # Left hydronephrosis The timing of this note does not necessarily reflect the time of the patient was seen. Greatly appreciate consultation! Subjective Allergies: Coded Allergies: Grits (Unverified Allergy, Unknown, 07/06/17) [place] (Unverified Allergy, Unknown, 07/06/17) Subjective 06/01: seen by bedside, leukocytosis improved, abd pain still present, no events 06/02: no events, wbc yesterday improved, less n/v 05/06: leukocytosis worse today, no acute distress Objective Last 24 Hour Vital Signs Date Time Temp Pulse Resp B/P (MAP) Pulse Ox O2 Delivery O2 Flow Rate FiO2 06/03/18 09:00 Room Air 06/03/18 08:00 99.0 86 18 121/76 (91) 95 06/03/18 04:00 98.2 94 20 128/82 (97) 98 06/03/18 00:00 99.8 94 20 123/84 (97) 97 06/02/18 20:00 98.6 82 18 134/84 (101) 98 06/02/18 20:00 Nasal Cannula 2.0 Intake and Output 06/02/18 06/03/18 19:00 07:00 Intake Total 240 ml Balance 240 ml Intake Oral 240 ml # Voids 2 2 Laboratory Tests 06/03/18 05:59: White Blood Count 18.0H, Red Blood Count 4.29, Hemoglobin 13.9, Hematocrit 42.0 , Mean Corpuscular Volume 98, Mean Corpuscular Hemoglobin 32.4H, Mean Corpuscular Hemoglobin Concent 33.1, Red Cell Distribution Width 13.2, Platelet Count 291, Mean Platelet Volume 6.9, Neutrophils (%) (Auto) , Lymphocytes (%) ( Auto) , Monocytes (%) (Auto) , Eosinophils (%) (Auto) , Basophils (%) (Auto) , Differential Total Cells Counted 100, Neutrophils % (Manual) 74, Lymphocytes % ( Manual) 14L, Monocytes % (Manual) 12H, Eosinophils % (Manual) 0, Basophils % ( Manual) 0, Band Neutrophils 0, Platelet Estimate Adequate, Platelet Morphology Normal, Red Blood Cell Morphology Normal, Sodium Level 139, Potassium Level 4.1 , Chloride Level 101, Carbon Dioxide Level 31, Anion Gap 7, Blood Urea Nitrogen 7, Creatinine 0.9, Estimat Glomerular Filtration Rate > 60, Glucose Level 99, Calcium Level 10.0 Height (Feet): 5 Height (Inches): 4.00 Weight (Pounds): 191 Objective General Appearance: well appearing, nad Head: normocephalic EENT: PERRL/EOMI, normal ENT inspection Neck: supple Respiratory: normal breath sounds, no respiratory distress Cardiovascular: normal rate Gastrointestinal: normal inspection, non tender, soft, nd Genitourinary: no CVA tenderness Musculoskeletal: normal inspection, back normal Colby Canada MD Jun 03, 2018 17:10
--- NOTE | 2018-06-04 12:01 | Discharge Summary ---
Discharge Summary Discharge Summary _ DATE OF ADMISSION: 05/30/2018 DATE OF DISCHARGE: 06/03/2018 DISCHARGED BY: Dr. Isela Alejandro CONSULTANTS: Dr. Colby Daley BRIEF HOSPITAL COURSE: Patient is a 57-year-old female, who presented to the ED due to vomiting and diarrhea. She reported epigastric discomfort and cramping sensation. She also reported cough. She denied flank pain. She had diffuse body ache. She denied any focal weakness. There was no fall or trauma. She denied any recent travel. On evaluation in the ED, blood work showed elevated WBC to 24. Potassium was 3.3. LFTs and lipase were normal. Urinalysis was positive for nitrite, 3+ leukocyte esterase, 2-4 RBC, 15-20 WBC. An EKG that showed normal sinus rhythm. Chest x-ray did not show any acute process. KUB was unremarkable. She had a CT of the abdomen and pelvis that showed moderate left hydronephrosis and hydroureter. Level of obstruction at the level of left ureteropelvic junction. There was no obstructing mass or stone demonstrated there was marked perinephric and periureteral fat stranding. There was a 5 cm lesion with fluid attenuation coming off the upper pole of the left kidney. Markedly thickened endometrium. She was given IV hydration. She was started on ceftriaxone. Urologist was consulted. There was no evidence of obstruction of the ureter and hydroureteronephrosis and stranding likely reactive changes due to pyelonephritis. She was continued on IV antibiotics. Diet was advanced. She was given symptomatic treatment for nausea and vomiting. Abdominal ultrasound showed moderate left hydronephrosis, etiology not demonstrated. Previously reported left upper pole renal lesion seen on CT showed to be a simple cyst. Evaluation Assistant was consulted. Pelvic ultrasound showed upper fundal endometrium to be fluid filled. Patient had documented mental illness and multiple medical comorbidities and is not a good surgical candidate. She reported bleeding, however no bleeding was appreciated on examination nor reported by nursing staff. She was recommended outpatient management for a hysteroscopy, dilatation and curettage. There were no acute interventions warranted at this time. She was recommended gynecology follow-up with repeat imaging. Cardiac evaluation was done. Patient has schizophrenia and anxiety. She was given Seroquel and Cymbalta. Trazodone was discontinued. Urine culture showed growth of ESBL. Blood culture with coagulase-negative staph 1 out of 2. Antibiotic was switched to meropenem. She was given electrolyte replacement. There was no IV access, antibiotic was changed to Bactrim. She was eventually [facility] FINAL DIAGNOSES: Sepsis due to pyelonephritis with ESBL E. coli Left-sided hydronephrosis and hydroureter Dehydration Seizure disorder Hyponatremia Hypokalemia Hypertension Proteinuria Hypoalbuminemia Schizophrenia Anxiety Thickened endometrium DISPOSITION: Patient was discharged to a SNF. DISCHARGE MEDICATIONS: Refer to Discharge Medication List. I have been assigned to complete a discharge summary on this account, I was not involved with the patient's management. Kimberly Treadwell NP Jun 04, 2018 12:01
== END 2018-06-03 16:09 | DRG 872 ==
LOC: EDBD 12:03 → EMR 12:28 → 4E 12:53 → EDBEDREQ 13:08
DX: A41.9 Sepsis, unspecified organism (principal); E87.1 Hypo-osmolality and hyponatremia; N13.30 Unspecified hydronephrosis; N12 Tubulo-interstitial nephritis, not specified as acute or chronic; E86.0 Dehydration; E87.6 Hypokalemia; I10 Essential (primary) hypertension; Z87.891 Personal history of nicotine dependence; F41.9 Anxiety disorder, unspecified; B96.20 Unspecified Escherichia coli [E. coli] as the cause of diseases classified elsewhere; Z16.12 Extended spectrum beta lactamase (ESBL) resistance; G40.909 Epilepsy, unspecified, not intractable, without status epilepticus; F20.9 Schizophrenia, unspecified; R93.89 Abnormal findings on diagnostic imaging of other specified body structures; Z89.519 Acquired absence of unspecified leg below knee; F22 Delusional disorders; E88.09 Other disorders of plasma-protein metabolism, not elsewhere classified
CPT/HCPCS: 36415; 71045; 74018; 74176; 76700; 76830; 76856; 80048; 80053; 80061; 81003; 82607; 82746; 83036; 83605; 83690; 83735; 83880; 84100; 84443; 84550; 85007; 85025; 86140; 87040; 87086; 87181; 93970; 96361; 96365; 96375; 99285; J2405; J8499

== ENCOUNTER 2018-07-11 14:30 | Inpatient (IN) | payer MEDICARE, MEDICAID ==
[~2018-07-11] VITALS: Ht 162.6 cm; Wt 97.7 kg
[~2018-07-11 14:30] MED LIST changes: +CYMBALTA60 MG ORAL; +GABAPENTIN100 MG ORAL; +MULTIVITAMINS1 EAC2 ORAL; +TRAZODONE HCL150 MG ORAL
[2018-07-11 14:43] VITALS: BP 119/75
[2018-07-11 15:31] LABS: APPEARANCE,URINE CLEAR; BASOPHILS % (AUTO) 0.7 % (0.0-2.0); BILIRUBIN, URINE NEGATIVE (NEGATIVE); COLOR,URINE PALE YELLOW; EOSINOPHILS % (AUTO) 1.7 % (0.0-3.0); GLUCOSE, URINE (UA) NEGATIVE (NEGATIVE); HEMATOCRIT 42.9 % (37.0-47.0); HEMOGLOBIN 14.9 G/DL (12.0-16.0); KETONES,URINE NEGATIVE (NEGATIVE); LEUKOCYTE ESTERASE ,URINE NEGATIVE (NEGATIVE); LYMPHOCYTES % (AUTO) 22.9 % (20.0-45.0); MEAN CORPUSCULAR VOLUME 94 FL (80-99); MONOCYTES % (AUTO) 6.9 % (1.0-10.0); NEUTROPHILS % (AUTO) 67.9 % (45.0-75.0); NITRITE,URINE NEGATIVE (NEGATIVE); PH,URINE 7 (4.5-8.0); PLATELET COUNT 226 K/UL (150-450); PROTEIN,URINE NEGATIVE (NEGATIVE); RED BLOOD COUNT 4.57 M/UL (4.20-5.40); RED CELL DISTRIBUTION WIDTH 14.2 % (11.6-14.8); UROBILINOGEN,URINE NORMAL MG/DL (0.0-1.0)
--- NOTE | 2018-07-11 15:41 | Emergency Room Report ---
History of Present Illness General Chief Complaint: Abnormal Labs Source: Patient Present Illness HPI Patient presents with reports of complicated UTI Patient herself has underlying Psychiatric disorder History of hasn't illness is limited Patient's primary physician notified us of the patient's presentation patient has had decreased oral intake There was no reports of vomiting or diarrhea Patient herself here denies any chest pain Denies any neck pain or photophobia Allergies: Coded Allergies: Grits (Unverified Allergy, Unknown, 07/06/17) [place] (Unverified Allergy, Unknown, 07/06/17) Patient History Limited by: medical condition Past Medical History: see triage record Pertinent Family History: unable to obtain Reviewed Nursing Documentation: PMH: Agreed; PSxH: Agreed Nursing Documentation-PMH Past Medical History: No History, Except For Hx Hypertension: Yes - edema, osteomyelitis, HTN Hx Cancer: No Hx Gastrointestinal Problems: No Hx Seizures: Yes Review of Systems All Other Systems: negative except mentioned in HPI Physical Exam Vital Signs Date Time Temp Pulse Resp B/P (MAP) Pulse Ox O2 Delivery O2 Flow Rate FiO2 07/11/18 14:33 97.7 86 20 110/70 95 Room Air Sp02 EP Interpretation: reviewed, normal General Appearance: no apparent distress Head: normocephalic, atraumatic Eyes: bilateral eye PERRL, bilateral eye EOMI ENT: dry mucus membranes Neck: supple, thyroid normal Respiratory: lungs clear, no retraction, no accessory muscle use Cardiovascular #1: regular rate, rhythm Gastrointestinal: non tender, soft Musculoskeletal: normal inspection Neurologic: alert, responsive Psychiatric: anxious Skin: no rash, warm/dry Lymphatic: no adenopathy Medical Decision Making Diagnostic Impression: Primary Impression: ESBL (extended spectrum beta-lactamase) producing bacteria infection Additional Impression: Dehydration ER Course Multiple differentials and consideration Patient's primary physician contacted us and notified us of urine culture showing complex UTI Patient's white blood cell count is elevated Otherwise kidney function is appropriate patient remains calm throughout her stay Further hydration is provided And patient omitted for further inpatient care antibiotic coverage defer to infectious disease Labs Test 07/11/18 15:10 White Blood Count 13.0 K/UL (4.8-10.8) Red Blood Count 4.57 M/UL (4.20-5.40) Hemoglobin 14.9 G/DL (12.0-16.0) Hematocrit 42.9 % (37.0-47.0) Mean Corpuscular Volume 94 FL (80-99) Mean Corpuscular Hemoglobin 32.6 PG (27.0-31.0) Mean Corpuscular Hemoglobin Concent 34.7 G/DL (32.0-36.0) Red Cell Distribution Width 14.2 % (11.6-14.8) Platelet Count 226 K/UL (150-450) Mean Platelet Volume 6.5 FL (6.5-10.1) Neutrophils (%) (Auto) 67.9 % (45.0-75.0) Lymphocytes (%) (Auto) 22.9 % (20.0-45.0) Monocytes (%) (Auto) 6.9 % (1.0-10.0) Eosinophils (%) (Auto) 1.7 % (0.0-3.0) Basophils (%) (Auto) 0.7 % (0.0-2.0) Urine Color Pale yellow Urine Appearance Clear Urine pH 7 (4.5-8.0) Urine Specific [place] 1.010 (1.005-1.035) Urine Protein Negative (NEGATIVE) Urine Glucose (UA) Negative (NEGATIVE) Urine Ketones Negative (NEGATIVE) Urine Blood Negative (NEGATIVE) Urine Nitrite Negative (NEGATIVE) Urine Bilirubin Negative (NEGATIVE) Urine Urobilinogen Normal MG/DL (0.0-1.0) Urine Leukocyte Esterase Negative (NEGATIVE) Sodium Level 138 MMOL/L (136-145) Potassium Level 5.0 MMOL/L (3.5-5.1) Chloride Level 103 MMOL/L (98-107) Carbon Dioxide Level 24 MMOL/L (21-32) Anion Gap 11 mmol/L (5-15) Blood Urea Nitrogen 12 mg/dL (7-18) Creatinine 0.8 MG/DL (0.55-1.30) Estimat Glomerular Filtration Rate > 60 mL/min (>60) Glucose Level 95 MG/DL (74-106) Calcium Level 10.0 MG/DL (8.5-10.1) Total Bilirubin 0.4 MG/DL (0.2-1.0) Aspartate Amino Transf (AST/SGOT) 30 U/L (15-37) Alanine Aminotransferase (ALT/SGPT) 14 U/L (12-78) Alkaline Phosphatase 71 U/L (46-116) Creatine Kinase MB 0.5 NG/ML (0.0-3.6) Total Protein 7.6 G/DL (6.4-8.2) Albumin 3.2 G/DL (3.4-5.0) Globulin 4.4 g/dL Albumin/Globulin Ratio 0.7 (1.0-2.7) EKG Diagnostic Results Rate: normal Rhythm: NSR ST Segments: no acute changes Rhythm Strip Diag. Results EP Interpretation: yes Rate: 66 Rhythm: NSR, no PVC's, no ectopy Chest X-Ray Diagnostic Results Chest X-Ray Diagnostic Results : Chest X-Ray Ordered: Yes # of Views/Limited/Complete: 1 View Indication: Chest Pain EP Interpretation: Yes Interpretation: no consolidation, no effusion, no pneumothorax Impression: No acute disease Electronically Signed by: Isela Villatoro DO Last Vital Signs Date Time Temp Pulse Resp B/P (MAP) Pulse Ox O2 Delivery O2 Flow Rate FiO2 07/11/18 14:43 97.7 96 20 119/75 94 Room Air Status: improved Disposition: ADMITTED INPATIENT Condition: Serious Referrals: Isela Rubio MD (PCP) Isela Villatoro DO Jul 11, 2018 15:41
[2018-07-11 16:06] LABS: ANION GAP 11 mmol/L (5-15); BLOOD UREA NITROGEN 12 mg/dL (7-18); CARBON DIOXIDE 24 MMOL/L (21-32); CHLORIDE 103 MMOL/L (98-107); CREATININE 0.8 MG/DL (0.55-1.30); SODIUM 138 MMOL/L (136-145)
[2018-07-11 16:21] LABS: ALANINE AMINOTRANSFERASE 14 U/L (12-78); ALBUMIN 3.2 G/DL (3.4-5.0); ALBUMIN/GLOBULIN RATIO 0.7 (1.0-2.7); ALKALINE PHOSPHATASE 71 U/L (46-116); ASPARTATE AMINO TRANSFERASE 30 U/L (15-37); BILIRUBIN,TOTAL 0.4 MG/DL (0.2-1.0); CKMB 0.5 NG/ML (0.0-3.6)
[2018-07-11 16:32] VITALS: BP 119/69
[2018-07-11 17:00] VITALS: BP 129/88
[2018-07-11] MEDS ORDERED: SEROQUEL100 MG ORAL (17:52)
[2018-07-11] MEDS ORDERED: Acetaminophen 500mg (ES) tab ORAL PRN (19:45)
[2018-07-11] MEDS ORDERED: traMADol 50mg tab ORAL PRN (19:45)
[2018-07-11 20:00] VITALS: BP 117/82
[2018-07-11] MEDS: TraZODone 100mg tab ORAL SCH (21:01)
[2018-07-11] MEDS: oxyCODONE 5mg IR tab ORAL PRN (21:09)
[2018-07-12] VITALS: BP 118/66
[2018-07-12 04:00] VITALS: BP 115/71
[2018-07-12 08:00] VITALS: BP 143/97
[2018-07-12] MEDS: Zinc Sulfate 220mg cap ORAL SCH (08:09)
[2018-07-12] MEDS: DULoxetine 30mg cap ORAL SCH (08:09)
[2018-07-12] MEDS: Docusate 100mg cap ORAL SCH ×2 (08:09→17:48)
[2018-07-12] MEDS: Ascorbic Acid 500mg tab ORAL SCH (08:09)
--- NOTE | 2018-07-12 10:11 | Diagnostic Imaging Report ---
Indication: Shortness of breath Technique: One view of the chest Comparison: 06/02/2018 Findings: Patient is rotated to the right. Body habitus somewhat limits evaluation. Lungs and pleural spaces are clear. Heart size is normal no significant interim change Impression: No acute process
[2018-07-12 12:00] VITALS: BP 146/100
[2018-07-12] MEDS: oxyCODONE 5mg IR tab ORAL PRN ×2 (13:31→20:56)
[2018-07-12 16:00] VITALS: BP 130/82
--- NOTE | 2018-07-12 16:54 | Consultation ---
History of Present Illness General Chief Complaint: Abnormal Labs Present Illness Allergies: Coded Allergies: Grits (Unverified Allergy, Unknown, 07/06/17) [place] (Unverified Allergy, Unknown, 07/06/17) Medication History Scheduled Amino Acids/Protein Hydrolys (Pro-Stat Liquid), 30 ML ORAL DAILY, (Reported) Ascorbic Acid* (Vitamin C*), 500 MG ORAL DAILY, (Reported) Aspirin* (Aspirin*), 325 MG ORAL DAILY, (Reported) Baclofen* (Baclofen*), 10 MG ORAL BID, (Reported) Calcium Carbonate/Vitamin D3 (Calcium + Vitamin D Tablet), 1 EACH PO DAILY, ( Reported) Clonazepam* (Klonopin*), 1 MG ORAL Q6H, (Reported) Clonazepam* (Klonopin*), 1 MG ORAL Q6H, (Reported) Docusate Sodium* (Docusate Sodium*), 100 MG ORAL TWICE A DAY, (Reported) Duloxetine Hcl* (Cymbalta*), 60 MG ORAL DAILY, (Reported) Gabapentin* (Gabapentin*), 200 MG ORAL THREE TIMES A DAY, (Reported) Levofloxacin* (Levaquin*), 750 MG ORAL ONCE, (Reported) Multivitamins* (Multivitamins*), 1 TAB ORAL DAILY, (Reported) Olanzapine* (Zyprexa*), 5 MG ORAL BID, (Reported) Quetiapine Fumarate* (Seroquel*), 100 MG ORAL DAILY, (Reported) Trazodone* (Trazodone*), 50 MG ORAL BEDTIME, (Reported) Trazodone* (Trazodone*), 50 MG ORAL BEDTIME, (Reported) Trimethoprim/Sulfamethoxazole 160/800* (Bactrim Ds Tablet*), 1 TAB ORAL TWICE A DAY, (Reported) Zinc Sulfate (Zinc Sulfate*), 220 MG ORAL DAILY, (Reported) Scheduled PRN Acetaminophen* (Tylenol Extra Strength*), 1,000 MG ORAL Q4HR PRN for Mild Pain/ Temp > 100.5, (Reported) Bisacodyl (Dulcolax), 10 MG RC for Constipation, (Reported) Diphenhydramine Hcl* (Benadryl*), 25 MG ORAL Q6H PRN for Itching, (Reported) Magnesium Hydroxide* (Milk Of Magnesia*), 30 ML ORAL DAILY PRN for Constipation, (Reported) Na Phos,M-B/Na Phos,Di-Ba* (Fleet Enema*), 133 ML RECTAL DAILY PRN for Constipation, (Reported) Oxycodone Hcl* (Oxycodone Hcl*), 5 MG ORAL Q6H PRN for For Pain, (Reported) Tramadol Hcl* (Ultram*), 50 MG ORAL Q6H PRN for For Pain, (Reported) Patient History Healthcare decision maker N Resuscitation status Full Code Advanced Directive on File Physical Exam Last 24 Hour Vital Signs Date Time Temp Pulse Resp B/P (MAP) Pulse Ox O2 Delivery O2 Flow Rate FiO2 07/12/18 16:00 97.3 63 21 130/82 (98) 93 07/12/18 12:00 97.7 79 20 146/100 (115) 93 07/12/18 09:00 Room Air 07/12/18 08:00 98.0 86 20 143/97 (112) 93 07/12/18 04:00 98.9 66 19 115/71 (86) 93 07/12/18 00:00 98.1 71 19 118/66 (83) 95 07/11/18 21:00 Room Air 07/11/18 20:00 97.9 78 20 117/82 (94) 97 07/11/18 17:00 97.5 77 18 129/88 (102) 95 07/11/18 16:58 97.7 88 18 119/69 96 Room Air Intake and Output 07/11/18 07/12/18 18:59 06:59 Output Total 0 ml Balance 0 ml Output Urine Total 0 ml # Bowel Movements 1 Height (Feet): 5 Height (Inches): 4.00 Weight (Pounds): 218 Medications Current Medications Medications (Trade) Dose Ordered Sig/William Route PRN Reason Start Time Stop Time Status Last Admin Dose Admin Acetaminophen (Tylenol) 1,000 mg Q4HR PRN ORAL Mild Pain/Temp > 100.5 07/11/18 19:45 08/10/18 19:44 Ascorbic Acid (Vitamin C) 500 mg DAILY ORAL 07/12/18 09:00 08/11/18 08:59 07/12/18 08:09 Aspirin (ASA) 325 mg DAILY ORAL 07/12/18 09:00 08/11/18 08:59 07/12/18 08:10 Baclofen (Lioresal) 10 mg BID ORAL 07/12/18 09:00 08/11/18 08:59 07/12/18 08:09 Bisacodyl (Dulcolax) 10 mg PRN PRN RECTAL Constipation 07/11/18 19:45 08/10/18 19:44 Clonazepam (KlonoPIN) 1 mg Q6H ORAL 07/12/18 08:00 07/19/18 07:59 07/12/18 13:31 Docusate Sodium (Colace) 100 mg TWICE A DAY ORAL 07/12/18 09:00 08/11/18 08:59 07/12/18 08:09 Duloxetine HCl (Cymbalta) 60 mg DAILY ORAL 07/12/18 09:00 08/11/18 08:59 07/12/18 08:09 Gabapentin (Neurontin) 200 mg THREE TIMES A DAY ORAL 07/12/18 09:00 08/11/18 08:59 07/12/18 13:31 Multivitamins (Multivitamins) 1 tab DAILY ORAL 07/12/18 09:00 08/11/18 08:59 07/12/18 08:09 Oxycodone HCl (Roxicodone) 5 mg Q6H PRN ORAL FOR MODERATE PAIN 07/11/18 19:45 07/18/18 19:44 07/12/18 13:31 Quetiapine Fumarate (SEROquel) 100 mg DAILY ORAL 07/12/18 09:00 08/11/18 08:59 07/12/18 08:09 Tramadol HCl (Ultram) 50 mg Q6H PRN ORAL For Pain 07/11/18 19:45 07/18/18 19:44 Trazodone HCl (Desyrel) 50 mg BEDTIME ORAL 07/11/18 21:00 08/10/18 20:59 07/11/18 21:01 Zinc Sulfate (Zinc Sulfate) 220 mg DAILY ORAL 07/12/18 09:00 08/11/18 08:59 07/12/18 08:09 Assessment/Plan Assessment: Hematology Consult Note Date patient seen: July 12, 2018 Reason for Hospitalization: Vomiting Referring physician: JORGE LUIS HALEY Reason for Consultation: Leukocytosis, renal mass HPI Patient present with complaints of ongoing vomiting and diarrhea, She reports some epigastric, reports cough, Denies any flank pain, Patient reports that she has diffuse body ache as well Denies any focal weakness denies any fall or trauma denies any recent travel, Denies any blood in the stool, GI consulted for reported nausea and vomiting. Initial HPI as noted above. Patient seen, awake alert and oriented x4, no apparent distress, no active signs or symptoms of nausea or vomiting. Patient denies any nausea vomiting or diarrhea. Patient has complaint of current constipation. Abdomen is soft, nontender, nondistended. Labs reviewed; patient presents with leukocytosis white count of 16. No anemia. No transaminitis. Electrolyte imbalance of potassium 3.3 and phosphorus of 2.1. Patient denies any history of endoscopic or colonoscopy. Heme was consulted for leukocytosis, id has been consulted Home Medications Duloxetine Hcl* (CYMBALTA*) 60 Mg Capsule.dr, 60 MG ORAL DAILY, CAP 05/30/18 Multivitamins* (MULTIVITAMINS*) 1 Each Tablet, 1 TAB ORAL DAILY, TAB 0 Refills 05/30/18 Trazodone* (TRAZODONE*) 150 Mg Tablet, 50 MG ORAL BEDTIME, TAB 05/30/18 Trazodone* (TRAZODONE*) 150 Mg Tablet, 50 MG ORAL BEDTIME, TAB 05/30/18 Clonazepam* (KLONOPIN*) 1 Mg Tablet, 1 MG ORAL Q6H, #15 TAB 0 Refills 05/30/18 Gabapentin* (GABAPENTIN*) 100 Mg Capsule, 200 MG ORAL THREE TIMES A DAY, CAP 05/30/18 Levofloxacin* (LEVAQUIN*) 750 Mg Tablet, 750 MG ORAL ONCE for 1 Day, TAB give levaquin on 07/11/17 07/10/17 Olanzapine* (ZYPREXA*) 5 Mg Tablet, 5 MG ORAL BID, TAB 07/10/17 Ascorbic Acid* (VITAMIN C*) 500 Mg Tablet, 500 MG ORAL DAILY, #30 TAB 0 Refills 07/07/17 Acetaminophen* (TYLENOL EXTRA STRENGTH*) 500 Mg Tablet, 1000 MG ORAL Q4HR PRN for Mild Pain/Temp > 100.5, TAB 0 Refills 07/07/17 Amino Acids/Protein Hydrolys (PRO-STAT LIQUID) 30 Ml Liquid.pkt, 30 ML ORAL DAILY, ML 07/07/17 Magnesium Hydroxide* (MILK OF MAGNESIA*) 400 Mg/5 Ml Oral.susp, 30 ML ORAL DAILY PRN for Constipation, ML 07/07/17 Na Phos,M-B/Na Phos,Di-Ba* (FLEET ENEMA*) 133 Ml Enema, 133 ML RECTAL DAILY PRN for Constipation, ML 0 Refills 07/07/17 Bisacodyl (DULCOLAX) 10 Mg Supp.rect, 10 MG RC PRN for Constipation, SUPP 07/07/17 Trimethoprim/Sulfamethoxazole 160/800* (BACTRIM DS TABLET*) 1 Each Tablet, 1 TAB ORAL TWICE A DAY for 14 Days, TAB 06/10/17 Aspirin* (ASPIRIN*) 325 Mg Tablet, 325 MG ORAL DAILY, TAB 05/29/17 Zinc Sulfate (ZINC SULFATE*) 220 Mg Capsule, 220 MG ORAL DAILY, CAP 0 Refills 05/29/17 Tramadol Hcl* (ULTRAM*) 50 Mg Tablet, 50 MG ORAL Q6H PRN for For Pain, #30 TAB 0 Refills 05/29/17 Oxycodone Hcl* (OXYCODONE HCL*) 5 Mg Capsule, 5 MG ORAL Q6H PRN for For Pain, # 30 CAP 0 Refills 05/29/17 Docusate Sodium* (DOCUSATE SODIUM*) 100 Mg Capsule, 100 MG ORAL TWICE A DAY, CAP 05/29/17 Diphenhydramine Hcl* (BENADRYL*) 25 Mg Capsule, 25 MG ORAL Q6H PRN for Itching, CAP 05/29/17 Clonazepam* (KLONOPIN*) 1 Mg Tablet, 1 MG ORAL Q6H, #15 TAB 0 Refills 05/29/17 Baclofen* (BACLOFEN*) 10 Mg Tablet, 10 MG ORAL BID, TAB 05/29/17 Calcium Carbonate/Vitamin D3 (CALCIUM + VITAMIN D TABLET) 1 Each Tablet, 1 EACH PO DAILY, TAB 05/29/17 Med list reviewed/reconciled: Yes Allergies: Coded Allergies: Grits (Unverified Allergy, Unknown, 07/06/17) [place] (Unverified Allergy, Unknown, 07/06/17) Patient History History Provided By: Patient, Medical Record PMH Narrative Past Medical History: see triage record Pertinent Family History: none Reviewed Nursing Documentation: PMH: Agreed; PSxH: Agreed Nursing Documentation-PMH Hx Hypertension: Yes - edema, osteomyelitis, HTN Hx Cancer: No Hx Gastrointestinal Problems: No Hx Seizures: Yes Social History: Denies: smoking, alcohol use, drug use, other ROS All Other Systems: negative except mentioned in HPI PE Vital Signs Last 24 Hour Vital Signs Date Time Temp Pulse Resp B/P (MAP) Pulse Ox O2 Delivery O2 Flow Rate FiO2 07/12/18 16:00 97.3 63 21 130/82 (98) 93 07/12/18 12:00 97.7 79 20 146/100 (115) 93 07/12/18 09:00 Room Air 07/12/18 08:00 98.0 86 20 143/97 (112) 93 07/12/18 04:00 98.9 66 19 115/71 (86) 93 07/12/18 00:00 98.1 71 19 118/66 (83) 95 07/11/18 21:00 Room Air 07/11/18 20:00 97.9 78 20 117/82 (94) 97 07/11/18 17:00 97.5 77 18 129/88 (102) 95 07/11/18 16:58 97.7 88 18 119/69 96 Room Air General Appearance: well appearing, nad Head: normocephalic EENT: PERRL/EOMI, normal ENT inspection Neck: supple Respiratory: normal breath sounds, no respiratory distress Cardiovascular: normal rate Gastrointestinal: normal inspection, non tender, soft, nd Msk: normal inspection, back normal Neurologic: normal inspection, alert, oriented x3, responsive Psychiatric: normal inspection, judgement/insight normal, memory normal Skin: normal inspection, normal color Lymphatic: normal inspection, no adenopathy Current Medications Medications (Trade) Dose Ordered Sig/William Route PRN Reason Start Time Stop Time Status Last Admin Dose Admin Acetaminophen (Tylenol) 650 mg Q4H PRN ORAL Mild Pain/Temp > 100.5 05/30/18 15:30 06/29/18 15:29 05/31/18 00:05 Baclofen (Lioresal) 10 mg BID ORAL 05/30/18 18:00 06/29/18 17:59 05/31/18 09:11 Ceftriaxone Sodium 1 gm/ Dextrose 55 ml @ 110 mls/hr Q24H IVPB 05/30/18 20:00 06/06/18 19:59 05/30/18 20:17 Clonazepam (KlonoPIN) 1 mg Q6H ORAL 05/30/18 16:00 06/06/18 15:59 05/31/18 09:12 Dextrose/ Electrolytes 1,000 ml @ 75 mls/hr [id number] IV 05/30/18 16:00 06/29/18 15:59 05/31/18 06:12 Diphenhydramine HCl (Benadryl) 25 mg Q6H PRN ORAL Itching 05/30/18 15:45 06/29/18 15:44 Docusate Sodium (Colace) 100 mg TWICE A DAY ORAL 05/30/18 18:00 06/29/18 17:59 05/31/18 09:10 Duloxetine HCl (Cymbalta) 60 mg DAILY ORAL 05/31/18 09:00 06/30/18 08:59 05/31/18 09:10 Famotidine (Pepcid I.v.) 20 mg Q12HR IVP 05/30/18 21:00 06/29/18 20:59 05/31/18 09:12 Gabapentin (Neurontin) 200 mg THREE TIMES A DAY ORAL 05/30/18 18:00 06/29/18 17:59 05/31/18 09:11 Magnesium Hydroxide (Mom) 30 ml DAILYPRN PRN ORAL Constipation 05/30/18 15:45 06/29/18 15:44 Multivitamins (Multivitamins) 1 tab DAILY ORAL 05/31/18 09:00 06/30/18 08:59 05/31/18 09:10 Ondansetron HCl (Zofran) 4 mg Q6H PRN IV Nausea & Vomiting 05/30/18 15:45 06/29/18 15:44 Potassium Phosphate 30 mm/ Sodium Chloride 285 ml @ 47.5 mls/hr ONCE IV 05/31/18 11:00 05/31/18 13:00 Sucralfate (Carafate) 1 gm FOUR TIMES A DAY ORAL 05/30/18 18:00 06/29/18 17:59 05/31/18 09:12 Trazodone HCl (Desyrel) 50 mg BEDTIME ORAL 05/30/18 21:00 06/29/18 20:59 05/30/18 21:03 Assessment/Plan: # Leukocytosis is likely related to infection, reactive process, on abx at this time, potentially had acute pyelonephritis on presentation, likely esbl uti --> have reviewed peripheral smear and bandemia/neutrophilia noted --> continue antibiotics if they have been started by ID team --> monitor for resolution --> trend as needed # Left kidney mass -- 5 cm low-attenuation lesion demonstrating slightly higher than normal fluid attenuation coming off of the upper pole left kidney --> likely represents a complex possibly proteinaceous cyst, but necrotic solid mass also possible. # Dehydration --> ivf have been started --> anti-nausea meds started # S/P BKA (below knee amputation) unilateral --> left leg s/p amputation # Anxiety --> as per psych # Left hydronephrosis The timing of this note does not necessarily reflect the time of the patient was seen. Greatly appreciate consultation! Colby Canada MD Jul 12, 2018 16:54
--- NOTE | 2018-07-12 18:45 | Consultation ---
DATE OF CONSULTATION: 07/12/2018 INFECTIOUS DISEASE CONSULTATION CONSULTING PHYSICIAN: Jose Solis M.D. PRIMARY ATTENDING PHYSICIAN: Isela Rubio M.D. REASON FOR CONSULT: Urinary tract infection. HISTORY OF PRESENT ILLNESS: This is a 58-year-old female, admitted yesterday from a [facility] facility because of dysuria. She says that it her urine smells. She is incontinent. She was admitted recently to [facility] in May of 2018. At that time, she had urinary tract infection with E. coli ESBL. Also, CT scan of the abdomen and pelvis showed left-sided hydronephrosis and hydroureter. PAST MEDICAL HISTORY: Significant for schizophrenia, hypertension, left below-knee amputation, and left-sided hydronephrosis and hydroureter. ALLERGIES: Allergic to grits and hominy. SOCIAL HISTORY: care home resident. She was a smoker, but says she does not smoke anymore. . Has 4 children. REVIEW OF SYSTEMS: No fever. No chills. No coughing. No shortness of breath. She says appetite is good. No nausea. No vomiting. Has urinary incontinence and dysuria as mentioned. PHYSICAL EXAM: VITAL SIGNS: Temperature 98, pulse 86, and blood pressure 143/97. GENERAL APPEARANCE: No acute distress. She is obese. HEAD AND NECK: Poor dentition. Many dental caries. HEART: Normal rate. LUNGS: Clear. ABDOMEN: Soft and nontender. EXTREMITY: Has left BKA. LABORATORY AND DIAGNOSTIC DATA: WBC 13, hemoglobin 14.9, hematocrit 46.9, and platelets 226,000. Sodium 138, potassium 5, chloride 103, bicarbonate 24, BUN 12, and creatinine 0.8. AST, ALT, and bilirubin are within normal limits. UA was negative. Chest x-ray showed no acute disease. IMPRESSION: 1. Leukocytosis. 2. Dysuria. 3. Obesity. 4. Left-sided hydronephrosis. 5. Hypertension. 6. Schizophrenia. RECOMMENDATION: 1. We will repeat renal ultrasound. 2. We will follow up the cultures. For now, observe off antibiotic. At the end of my exam, I thank Dr. Rubio for involving me in the care of this patient. Jose Solis M.D. DR: KASI JOB#: [id number] CC: PIERRE
--- NOTE | 2018-07-12 19:57 | Cardiology Report ---
APPROVED REPORT EKG Measurement Heart [id number] Normal sinus rhythm Normal ECG
[2018-07-12 20:34] VITALS: BP 123/77
[2018-07-12] MEDS: TraZODone 100mg tab ORAL SCH (21:55)
[2018-07-13 00:37] VITALS: BP 116/73
--- NOTE | 2018-07-13 01:15 | History and Physical Report ---
DATE OF ADMISSION: 07/11/2018 HISTORY OF PRESENT ILLNESS: The patient is admitted for complicated urinary tract infection. The patient had grew the ESBL from the urine from the long-term. Also, has dehydration, weakness, and hypokalemia as well. The patient is a poor historian. The patient denies nausea, vomiting, or diarrhea. Denies fever or chills. Also, had a decreased oral intake at the facility. No nausea, vomiting, or diarrhea. No shortness of breath. Denies cough. PAST MEDICAL HISTORY: Has dementia, history of osteomyelitis, history of hypertension, history of seizures, history of chronic pain, anxiety, mood disorder, history of osteomyelitis of the ankle, history of malnutrition. PAST SURGICAL HISTORY: Denies. MEDICATIONS: Vitamin C, aspirin, baclofen, bisacodyl, Klonopin, docusate, gabapentin, Cymbalta, and trazodone. ALLERGIES: Grits and hominy. FAMILY HISTORY: Noncontributory. SOCIAL HISTORY: She has history of smoking. Denies history of alcohol or illicit drugs. REVIEW OF SYSTEMS: HEENT: Denies headaches. RESPIRATORY: Denies shortness of breath. Denies cough. CARDIOVASCULAR: Denies chest pain. Denies nausea, vomiting, or diarrhea. Does have dysuria and occasional urinary frequency. R PROGRAMMER: No change in vision or speech pattern. PHYSICAL EXAMINATION: VITAL SIGNS: Temperature 98.9, pulse 66, and blood pressure 115/71. HEENT: PERRLA. NECK: Supple. No lymphadenopathy. CHEST: Clear to auscultation. CARDIOVASCULAR: Regular rate and rhythm. No murmurs or extra sounds. ABDOMEN: Soft. Positive bowel sounds. EXTREMITIES: A 1+ edema. Reflexes in both sides. LABORATORY DATA: WBC of 13, hemoglobin of 14.9, and platelets of 226,000. Sodium 138, potassium 5, BUN of 7, creatinine 0.8, and glucose of 95. ASSESSMENT/PLAN: ESBL urinary tract infection, dehydration, weakness, and hypokalemia. I have asked Dr. Jose Solis and Dr. Hatch to see the patient for the above-mentioned diagnoses and treatment. Isela Rubio M.D. DR: RAYMUNDO JOB#: [id number] CC:
[2018-07-13 04:26] VITALS: BP 118/82
[2018-07-13 06:31] LABS: BASOPHILS % (AUTO) 1.1 % (0.0-2.0); EOSINOPHILS % (AUTO) 2.5 % (0.0-3.0); HEMOGLOBIN 14.6 G/DL (12.0-16.0); LYMPHOCYTES % (AUTO) 20.4 % (20.0-45.0); MEAN CORPUSCULAR VOLUME 98 FL (80-99); MONOCYTES % (AUTO) 9.8 % (1.0-10.0); NEUTROPHILS % (AUTO) 66.2 % (45.0-75.0); PLATELET COUNT 202 K/UL (150-450); RED BLOOD COUNT 4.61 M/UL (4.20-5.40); RED CELL DISTRIBUTION WIDTH 14.7 % (11.6-14.8); WHITE BLOOD COUNT 10.5 K/UL (4.8-10.8)
[2018-07-13 08:00] VITALS: BP 124/78
[2018-07-13] MEDS: Ascorbic Acid 500mg tab ORAL SCH (09:00)
[2018-07-13] MEDS: Docusate 100mg cap ORAL SCH ×2 (09:00→18:13)
[2018-07-13] MEDS: Zinc Sulfate 220mg cap ORAL SCH (09:00)
[2018-07-13] MEDS: DULoxetine 30mg cap ORAL SCH (09:00)
--- NOTE | 2018-07-13 09:07 | Diagnostic Imaging Report ---
Indication: Abdominal pain, bilateral flank pain Technique: Cat-scale and duplex images of the upper abdomen were obtained Comparison: Abdominal ultrasound dated 05/31/2018, prior abdominal CT dated 05/30/2018 Findings: Gallbladder is unremarkable, without stones, wall thickening, nor pericholecystic fluid. Sonographic Stevens's sign is negative. Common bile duct measures to mm in diameter. No intrahepatic biliary ductal dilatation. Liver demonstrates normal echogenicity, no focal abnormality. It is borderline enlarged. Portal vein and hepatic veins are patent. Pancreas is unremarkable. Spleen is unremarkable. Left kidney measures 13.4 cm in length. Right kidney measures 11.9 cm length. Both kidneys demonstrate normal echogenicity. There is moderate left hydronephrosis. There is also proximal hydroureter . Left kidney demonstrates a cyst . Non-aneurysmal abdominal aorta . Compared to the prior study, previously demonstrated mild right hydronephrosis is no longer evident. Previously demonstrated right renal cyst is not visualized on the current exam. Degree of left hydronephrosis appears similar to the prior exam as well as to the prior CT. The left renal cyst appears smaller. Impression: Moderate left hydronephrosis, also demonstrated on prior CT scan and ultrasound of May 2018, unchanged Interim resolution of previously reported mild right hydronephrosis Borderline hepatomegaly Left renal cyst again demonstrated Negative for gallstones or dilated bile ducts
[2018-07-13 12:00] VITALS: BP 119/66
[2018-07-13] MEDS: oxyCODONE 5mg IR tab ORAL PRN ×2 (12:38→20:44)
--- NOTE | 2018-07-13 13:12 | Infectious Diseases Prog Note ---
Assessment/Plan Assessment/Plan IMPRESSION: 1. Leukocytosis.resolved 2. Dysuria. 3. Obesity. 4. Left-sided hydronephrosis. 5. Hypertension. 6. Schizophrenia. RECOMMENDATION: 1. start on Rocephin 2. We will follow up the cultures. urine culture Subjective ROS Limited/Unobtainable: No Constitutional: Reports: no symptoms Gastrointestinal/Abdominal: Reports: vomiting Genitourinary: Reports: dysuria, other - occasionally Allergies: Coded Allergies: Grits (Unverified Allergy, Unknown, 07/06/17) [place] (Unverified Allergy, Unknown, 07/06/17) Objective Vital Signs Last 24 Hour Vital Signs Date Time Temp Pulse Resp B/P (MAP) Pulse Ox O2 Delivery O2 Flow Rate FiO2 07/13/18 12:00 97.4 72 19 119/66 (83) 95 07/13/18 11:31 Room Air 07/13/18 09:00 Room Air 07/13/18 08:00 98.3 70 18 124/78 (93) 94 07/13/18 04:26 98.9 77 17 118/82 (94) 93 07/13/18 00:37 98.0 69 19 116/73 (87) 92 07/12/18 22:49 Room Air 07/12/18 20:34 97.6 69 19 123/77 (92) 93 07/12/18 16:00 97.3 63 21 130/82 (98) 93 Height (Feet): 5 Height (Inches): 4.00 Weight (Pounds): 218 General Appearance: no acute distress HEENT: mucous membranes moist Respiratory/Chest: lungs clear Cardiovascular: normal rate Abdomen: soft, non tender Extremities: no edema Skin: other - left BKA Neurologic/Psychiatric: alert, responsive Microbiology Date/Time Source Procedure Growth Status 07/11/18 15:10 Blood Blood Culture - Preliminary NO GROWTH AFTER 24 HOURS Resulted 07/11/18 15:00 Blood Blood Culture - Preliminary NO GROWTH AFTER 24 HOURS Resulted Laboratory Tests Test 07/13/18 05:23 White Blood Count 10.5 K/UL (4.8-10.8) Red Blood Count 4.61 M/UL (4.20-5.40) Hemoglobin 14.6 G/DL (12.0-16.0) Hematocrit 45.0 % (37.0-47.0) Mean Corpuscular Volume 98 FL (80-99) Mean Corpuscular Hemoglobin 31.8 PG (27.0-31.0) H Mean Corpuscular Hemoglobin Concent 32.5 G/DL (32.0-36.0) Red Cell Distribution Width 14.7 % (11.6-14.8) Platelet Count 202 K/UL (150-450) Mean Platelet Volume 6.7 FL (6.5-10.1) Neutrophils (%) (Auto) 66.2 % (45.0-75.0) Lymphocytes (%) (Auto) 20.4 % (20.0-45.0) Monocytes (%) (Auto) 9.8 % (1.0-10.0) Eosinophils (%) (Auto) 2.5 % (0.0-3.0) Basophils (%) (Auto) 1.1 % (0.0-2.0) Erythrocyte Sedimentation Rate 38 MM/HR (0-30) H Current Medications Medications (Trade) Dose Ordered Sig/William Route PRN Reason Start Time Stop Time Status Last Admin Dose Admin Acetaminophen (Tylenol) 1,000 mg Q4HR PRN ORAL Mild Pain/Temp > 100.5 07/11/18 19:45 08/10/18 19:44 Ascorbic Acid (Vitamin C) 500 mg DAILY ORAL 07/12/18 09:00 08/11/18 08:59 07/13/18 09:00 Aspirin (ASA) 325 mg DAILY ORAL 07/12/18 09:00 08/11/18 08:59 07/13/18 09:00 Baclofen (Lioresal) 10 mg BID ORAL 07/12/18 09:00 08/11/18 08:59 07/13/18 09:00 Bisacodyl (Dulcolax) 10 mg PRN PRN RECTAL Constipation 07/11/18 19:45 08/10/18 19:44 Clonazepam (KlonoPIN) 1 mg Q6H ORAL 07/12/18 08:00 07/19/18 07:59 07/13/18 09:00 Docusate Sodium (Colace) 100 mg TWICE A DAY ORAL 07/12/18 09:00 08/11/18 08:59 07/13/18 09:00 Duloxetine HCl (Cymbalta) 60 mg DAILY ORAL 07/12/18 09:00 08/11/18 08:59 07/13/18 09:00 Gabapentin (Neurontin) 200 mg THREE TIMES A DAY ORAL 07/12/18 09:00 08/11/18 08:59 07/13/18 12:38 Multivitamins (Multivitamins) 1 tab DAILY ORAL 07/12/18 09:00 08/11/18 08:59 07/13/18 09:00 Oxycodone HCl (Roxicodone) 5 mg Q6H PRN ORAL FOR MODERATE PAIN 07/11/18 19:45 07/18/18 19:44 07/13/18 12:38 Quetiapine Fumarate (SEROquel) 100 mg DAILY ORAL 07/12/18 09:00 08/11/18 08:59 07/13/18 09:00 Tramadol HCl (Ultram) 50 mg Q6H PRN ORAL For Pain 07/11/18 19:45 07/18/18 19:44 Trazodone HCl (Desyrel) 50 mg BEDTIME ORAL 07/11/18 21:00 08/10/18 20:59 07/12/18 21:55 Zinc Sulfate (Zinc Sulfate) 220 mg DAILY ORAL 07/12/18 09:00 08/11/18 08:59 07/13/18 09:00 Jose Solis MD Jul 13, 2018 13:12
[2018-07-13] MEDS: cefTRIAXone 1 GM in D5W 55 ML IVPB SCH (15:29)
--- NOTE | 2018-07-13 15:53 | General Progress Note ---
Assessment/Plan Assessment: Assessment/Plan: # Leukocytosis is likely related to infection, reactive process, on abx at this time, potentially had acute pyelonephritis on presentation, likely esbl uti --> have reviewed peripheral smear and bandemia/neutrophilia noted --> continue antibiotics if they have been started by ID team --> monitor for resolution --> trend as needed ==?13k-->10k # Left kidney mass -- 5 cm low-attenuation lesion demonstrating slightly higher than normal fluid attenuation coming off of the upper pole left kidney --> likely represents a complex possibly proteinaceous cyst, but necrotic solid mass also possible. # Dehydration --> ivf to continue --> anti-nausea meds started # S/P BKA (below knee amputation) unilateral --> left leg s/p amputation # Anxiety --> as per psych # Left hydronephrosis The timing of this note does not necessarily reflect the time of the patient was seen. Greatly appreciate consultation! Subjective Constitutional: Denies: no symptoms, chills, diaphoresis, fever, malaise, weakness, other HEENT: Denies: no symptoms, eye pain, blurred vision, tearing, double vision, ear pain, ear discharge, nose pain, nose congestion, throat pain, throat swelling, mouth pain, mouth swelling, other Respiratory: Denies: no symptoms, cough, orthopnea, shortness of breath, SOB with excertion, SOB at rest, sputum, stridor, wheezing, other Gastrointestinal/Abdominal: Denies: no symptoms, abdomen distended, abdominal pain, black stools, tarry stools, blood in stool, constipated, diarrhea, difficulty swallowing, nausea, poor appetite, poor fluid intake, rectal bleeding , vomiting, other Genitourinary: Denies: no symptoms, burning, discharge, frequency, flank pain, hematuria, incontinence, pain, urgency, other Neurologic/Psychiatric: Denies: no symptoms, anxiety, depressed, emotional problems, headache, numbness, paresthesia, pre-existing deficit, seizure, tingling, tremors, weakness, other Endocrine: Denies: no symptoms, excessive sweating, flushing, intolerance to cold, intolerance to heat, increased hunger, increased thirst, increased urine, unexplained weight gain, unexplained weight loss, other Hematologic/Lymphatic: Denies: no symptoms, anemia, easy bleeding, easy bruising, other Allergies: Coded Allergies: Grits (Unverified Allergy, Unknown, 07/06/17) [place] (Unverified Allergy, Unknown, 07/06/17) Subjective 07/13: no fevers or chills, no night sweats report, no tachycardia, no night sweats Objective Last 24 Hour Vital Signs Date Time Temp Pulse Resp B/P (MAP) Pulse Ox O2 Delivery O2 Flow Rate FiO2 07/13/18 12:00 97.4 72 19 119/66 (83) 95 07/13/18 11:31 Room Air 07/13/18 09:00 Room Air 07/13/18 08:00 98.3 70 18 124/78 (93) 94 07/13/18 04:26 98.9 77 17 118/82 (94) 93 07/13/18 00:37 98.0 69 19 116/73 (87) 92 07/12/18 22:49 Room Air 07/12/18 20:34 97.6 69 19 123/77 (92) 93 07/12/18 16:00 97.3 63 21 130/82 (98) 93 Intake and Output 07/12/18 07/13/18 18:59 06:59 Intake Total 2500 ml Balance 2500 ml Intake Oral 2500 ml # Voids 12 Laboratory Tests 07/13/18 05:23: White Blood Count 10.5, Red Blood Count 4.61, Hemoglobin 14.6, Hematocrit 45.0, Mean Corpuscular Volume 98, Mean Corpuscular Hemoglobin 31.8H, Mean Corpuscular Hemoglobin Concent 32.5, Red Cell Distribution Width 14.7, Platelet Count 202, Mean Platelet Volume 6.7, Neutrophils (%) (Auto) 66.2, Lymphocytes (%) (Auto) 20.4, Monocytes (%) (Auto) 9.8, Eosinophils (%) (Auto) 2.5, Basophils (%) (Auto ) 1.1, Erythrocyte Sedimentation Rate 38H Height (Feet): 5 Height (Inches): 4.00 Weight (Pounds): 218 Objective General Appearance: well appearing, nad Head: normocephalic EENT: PERRL/EOMI, normal ENT inspection Neck: supple Respiratory: normal breath sounds, no respiratory distress Cardiovascular: normal rate Gastrointestinal: normal inspection, non tender, soft, nd Msk: normal inspection, back normal Neurologic: normal inspection, alert, oriented x3, responsive Psychiatric: normal inspection, judgement/insight normal, memory normal Skin: normal inspection, normal color Lymphatic: normal inspection, no adenopathy Colby Canada MD Jul 13, 2018 15:53
[2018-07-13 16:00] VITALS: BP 135/62
[2018-07-13 20:00] VITALS: BP 126/78
[2018-07-13] MEDS: TraZODone 100mg tab ORAL SCH (20:26)
--- NOTE | 2018-07-13 21:49 | General Progress Note ---
Assessment/Plan Problem List: (1) Seizure disorder ICD Codes: G40.909 - Epilepsy, unspecified, not intractable, without status epilepticus SNOMED: 168443318 (2) Anxiety ICD Codes: F41.9 - Anxiety disorder, unspecified SNOMED: 62065084 (3) Edema ICD Codes: R60.9 - Edema, unspecified SNOMED: 389502815, 602289375 (4) HTN (hypertension) ICD Codes: I10 - Essential (primary) hypertension SNOMED: 89710129 (5) Abdominal pain ICD Codes: R10.9 - Unspecified abdominal pain SNOMED: 20432017 (6) Schizophrenia ICD Codes: F20.9 - Schizophrenia, unspecified SNOMED: 04021490 (7) Complicated UTI (urinary tract infection) ICD Codes: N39.0 - Urinary tract infection, site not specified SNOMED: 05547789 (8) ESBL (extended spectrum beta-lactamase) producing bacteria infection ICD Codes: A49.9 - Bacterial infection, unspecified; Z16.12 - Extended spectrum beta lactamase (ESBL) resistance SNOMED: 465371903 (9) Dehydration ICD Codes: E86.0 - Dehydration SNOMED: 81710485 Status: progressing Assessment: afebrile nac htn esbl uti from snf abx per id clinically improving Subjective ROS Limited/Unobtainable: Yes Allergies: Coded Allergies: Grits (Unverified Allergy, Unknown, 07/06/17) [place] (Unverified Allergy, Unknown, 07/06/17) Objective Last 24 Hour Vital Signs Date Time Temp Pulse Resp B/P (MAP) Pulse Ox O2 Delivery O2 Flow Rate FiO2 07/13/18 16:00 97.4 82 17 135/62 (86) 95 07/13/18 12:00 97.4 72 19 119/66 (83) 95 07/13/18 11:31 Room Air 07/13/18 09:00 Room Air 07/13/18 08:00 98.3 70 18 124/78 (93) 94 07/13/18 04:26 98.9 77 17 118/82 (94) 93 07/13/18 00:37 98.0 69 19 116/73 (87) 92 07/12/18 22:49 Room Air Intake and Output 07/12/18 07/13/18 18:59 06:59 Intake Total 2500 ml Balance 2500 ml Intake Oral 2500 ml # Voids 12 Laboratory Tests 07/13/18 05:23: White Blood Count 10.5, Red Blood Count 4.61, Hemoglobin 14.6, Hematocrit 45.0, Mean Corpuscular Volume 98, Mean Corpuscular Hemoglobin 31.8H, Mean Corpuscular Hemoglobin Concent 32.5, Red Cell Distribution Width 14.7, Platelet Count 202, Mean Platelet Volume 6.7, Neutrophils (%) (Auto) 66.2, Lymphocytes (%) (Auto) 20.4, Monocytes (%) (Auto) 9.8, Eosinophils (%) (Auto) 2.5, Basophils (%) (Auto ) 1.1, Erythrocyte Sedimentation Rate 38H Height (Feet): 5 Height (Inches): 4.00 Weight (Pounds): 218 Cardiovascular: normal rate Respiratory/Chest: lungs clear Abdomen: soft Isela Rubio MD Jul 13, 2018 21:49
[2018-07-14] VITALS: BP 121/65
[2018-07-14 04:00] VITALS: BP 113/72
[2018-07-14] MEDS: oxyCODONE 5mg IR tab ORAL PRN ×3 (05:31→21:44)
[2018-07-14 08:00] VITALS: BP 130/84
[2018-07-14] MEDS: Docusate 100mg cap ORAL SCH ×2 (10:22→17:22)
[2018-07-14] MEDS: DULoxetine 30mg cap ORAL SCH (10:35)
[2018-07-14] MEDS: Zinc Sulfate 220mg cap ORAL SCH (10:37)
[2018-07-14] MEDS: Ascorbic Acid 500mg tab ORAL SCH (10:41)
[2018-07-14] MEDS ORDERED: Sennosides 8.6mg tab ORAL PRN (11:30)
[2018-07-14 12:00] VITALS: BP 102/52
--- NOTE | 2018-07-14 13:02 | Infectious Diseases Prog Note ---
Assessment/Plan Assessment/Plan IMPRESSION: 1. Leukocytosis.resolved 2. Dysuria. 3. Obesity. 4. Left-sided hydronephrosis. 5. Hypertension. 6. Schizophrenia. RECOMMENDATION: 1. Continue Rocephin 2. We will follow up urine culture Subjective ROS Limited/Unobtainable: No Respiratory: Reports: no symptoms Cardiovascular: Reports: no symptoms Gastrointestinal/Abdominal: Reports: no symptoms Allergies: Coded Allergies: Grits (Unverified Allergy, Unknown, 07/06/17) [place] (Unverified Allergy, Unknown, 07/06/17) Objective Vital Signs Last 24 Hour Vital Signs Date Time Temp Pulse Resp B/P (MAP) Pulse Ox O2 Delivery O2 Flow Rate FiO2 07/14/18 08:00 97.1 71 14 130/84 (99) 93 07/14/18 04:00 97.0 71 20 113/72 (86) 96 07/14/18 00:00 97.4 68 20 121/65 (83) 99 07/13/18 21:00 Room Air 07/13/18 20:00 97.7 76 20 126/78 (94) 95 07/13/18 16:00 97.4 82 17 135/62 (86) 95 Height (Feet): 5 Height (Inches): 4.00 Weight (Pounds): 215 General Appearance: no acute distress HEENT: mucous membranes moist Respiratory/Chest: lungs clear Cardiovascular: normal rate Abdomen: soft, non tender Extremities: other - left BKA Neurologic/Psychiatric: alert, responsive Microbiology Date/Time Source Procedure Growth Status 07/11/18 15:10 Blood Blood Culture - Preliminary NO GROWTH AFTER 48 HOURS Resulted 07/11/18 15:00 Blood Blood Culture - Preliminary NO GROWTH AFTER 48 HOURS Resulted Current Medications Medications (Trade) Dose Ordered Sig/William Route PRN Reason Start Time Stop Time Status Last Admin Dose Admin Acetaminophen (Tylenol) 1,000 mg Q4HR PRN ORAL Mild Pain/Temp > 100.5 07/11/18 19:45 08/10/18 19:44 Ascorbic Acid (Vitamin C) 500 mg DAILY ORAL 07/12/18 09:00 08/11/18 08:59 07/14/18 10:41 Aspirin (ASA) 325 mg DAILY ORAL 07/12/18 09:00 08/11/18 08:59 07/14/18 10:39 Baclofen (Lioresal) 10 mg BID ORAL 07/12/18 09:00 08/11/18 08:59 07/14/18 10:33 Bisacodyl (Dulcolax) 10 mg PRN PRN RECTAL Constipation 07/11/18 19:45 08/10/18 19:44 07/14/18 11:24 Ceftriaxone Sodium 1 gm/ Dextrose 55 ml @ 110 mls/hr Q24H IVPB 07/13/18 15:00 07/20/18 14:59 07/13/18 15:29 Clonazepam (KlonoPIN) 1 mg Q6H ORAL 07/12/18 08:00 07/19/18 07:59 07/14/18 08:19 Docusate Sodium (Colace) 100 mg TWICE A DAY ORAL 07/12/18 09:00 08/11/18 08:59 07/14/18 10:22 Duloxetine HCl (Cymbalta) 60 mg DAILY ORAL 07/12/18 09:00 08/11/18 08:59 07/14/18 10:35 Gabapentin (Neurontin) 200 mg THREE TIMES A DAY ORAL 07/12/18 09:00 08/11/18 08:59 07/14/18 10:29 Multivitamins (Multivitamins) 1 tab DAILY ORAL 07/12/18 09:00 08/11/18 08:59 07/14/18 10:27 Oxycodone HCl (Roxicodone) 5 mg Q6H PRN ORAL FOR MODERATE PAIN 07/11/18 19:45 07/18/18 19:44 07/14/18 05:31 Quetiapine Fumarate (SEROquel) 100 mg DAILY ORAL 07/12/18 09:00 08/11/18 08:59 07/14/18 10:38 Sennosides (Senokot) 8.6 mg DAILY ORAL 07/15/18 09:00 08/13/18 11:29 Tramadol HCl (Ultram) 50 mg Q6H PRN ORAL For Pain 07/11/18 19:45 07/18/18 19:44 Trazodone HCl (Desyrel) 50 mg BEDTIME ORAL 07/11/18 21:00 08/10/18 20:59 07/13/18 20:26 Zinc Sulfate (Zinc Sulfate) 220 mg DAILY ORAL 07/12/18 09:00 08/11/18 08:59 07/14/18 10:37 Jose Solis MD Jul 14, 2018 13:02
[2018-07-14] MEDS ORDERED: Milk of Magnesia 30ml Ud ORAL PRN ×3 (13:15→16:15)
[2018-07-14] MEDS: cefTRIAXone 1 GM in D5W 55 ML IVPB SCH (15:08)
[2018-07-14 16:00] VITALS: BP 125/75
--- NOTE | 2018-07-14 18:42 | General Progress Note ---
Assessment/Plan Assessment: Assessment/Plan: # Leukocytosis is likely related to infection, reactive process, on abx at this time, potentially had acute pyelonephritis on presentation, likely esbl uti --> have reviewed peripheral smear and bandemia/neutrophilia noted --> continue antibiotics if they have been started by ID team --> monitor for resolution --> trend as needed ==>13k-->10k # Left kidney mass -- 5 cm low-attenuation lesion demonstrating slightly higher than normal fluid attenuation coming off of the upper pole left kidney --> likely represents a complex possibly proteinaceous cyst, but necrotic solid mass also possible. # Dehydration --> ivf to continue --> anti-nausea meds started --> per renal # S/P BKA (below knee amputation) unilateral --> left leg s/p amputation # Anxiety --> as per psych # Left hydronephrosis The timing of this note does not necessarily reflect the time of the patient was seen. Greatly appreciate consultation! Subjective Constitutional: Denies: no symptoms, chills, diaphoresis, fever, malaise, weakness, other HEENT: Denies: no symptoms, eye pain, blurred vision, tearing, double vision, ear pain, ear discharge, nose pain, nose congestion, throat pain, throat swelling, mouth pain, mouth swelling, other Cardiovascular: Denies: no symptoms, chest pain, edema, irregular heart rate, lightheadedness, palpitations, syncope, other Respiratory: Denies: no symptoms, cough, orthopnea, shortness of breath, SOB with excertion, SOB at rest, sputum, stridor, wheezing, other Gastrointestinal/Abdominal: Denies: no symptoms, abdomen distended, abdominal pain, black stools, tarry stools, blood in stool, constipated, diarrhea, difficulty swallowing, nausea, poor appetite, poor fluid intake, rectal bleeding , vomiting, other Genitourinary: Denies: no symptoms, burning, discharge, frequency, flank pain, hematuria, incontinence, pain, urgency, other Neurologic/Psychiatric: Denies: no symptoms, anxiety, depressed, emotional problems, headache, numbness, paresthesia, pre-existing deficit, seizure, tingling, tremors, weakness, other Endocrine: Denies: no symptoms, excessive sweating, flushing, intolerance to cold, intolerance to heat, increased hunger, increased thirst, increased urine, unexplained weight gain, unexplained weight loss, other Allergies: Coded Allergies: Grits (Unverified Allergy, Unknown, 07/06/17) [place] (Unverified Allergy, Unknown, 07/06/17) Subjective 07/13: no fevers or chills, no night sweats report, no tachycardia, no night sweats 07/14: no changes, no night sweats, no significant changes Objective Last 24 Hour Vital Signs Date Time Temp Pulse Resp B/P (MAP) Pulse Ox O2 Delivery O2 Flow Rate FiO2 07/14/18 16:00 97.7 55 19 125/75 (92) 94 07/14/18 12:00 97.5 69 19 102/52 (69) 93 07/14/18 09:00 Room Air 07/14/18 08:00 97.1 71 14 130/84 (99) 93 07/14/18 04:00 97.0 71 20 113/72 (86) 96 07/14/18 00:00 97.4 68 20 121/65 (83) 99 07/13/18 21:00 Room Air 07/13/18 20:00 97.7 76 20 126/78 (94) 95 Intake and Output 07/13/18 07/14/18 19:00 07:00 Intake Total 2200 ml Balance 2200 ml Intake Oral 2200 ml # Voids 11 Height (Feet): 5 Height (Inches): 4.00 Weight (Pounds): 215 Objective General Appearance: well appearing, nad Head: normocephalic EENT: PERRL/EOMI, normal ENT inspection Neck: supple Respiratory: normal breath sounds, no respiratory distress Cardiovascular: normal rate Gastrointestinal: normal inspection, non tender, soft, nd Msk: normal inspection, back normal Neurologic: normal inspection, alert, oriented x3, responsive Psychiatric: normal inspection, judgement/insight normal, memory normal Skin: normal inspection, normal color Lymphatic: normal inspection, no adenopathy Colby Canada MD Jul 14, 2018 18:42
[2018-07-14 20:00] VITALS: BP 125/82
[2018-07-14] MEDS: TraZODone 100mg tab ORAL SCH (20:10)
--- NOTE | 2018-07-14 23:24 | General Progress Note ---
Assessment/Plan Problem List: (1) Seizure disorder ICD Codes: G40.909 - Epilepsy, unspecified, not intractable, without status epilepticus SNOMED: 117042655 (2) Anxiety ICD Codes: F41.9 - Anxiety disorder, unspecified SNOMED: 41059733 (3) Edema ICD Codes: R60.9 - Edema, unspecified SNOMED: 509264532, 744511423 (4) HTN (hypertension) ICD Codes: I10 - Essential (primary) hypertension SNOMED: 21722634 (5) Abdominal pain ICD Codes: R10.9 - Unspecified abdominal pain SNOMED: 48127803 (6) Schizophrenia ICD Codes: F20.9 - Schizophrenia, unspecified SNOMED: 88236323 (7) Complicated UTI (urinary tract infection) ICD Codes: N39.0 - Urinary tract infection, site not specified SNOMED: 97257496 (8) ESBL (extended spectrum beta-lactamase) producing bacteria infection ICD Codes: A49.9 - Bacterial infection, unspecified; Z16.12 - Extended spectrum beta lactamase (ESBL) resistance SNOMED: 982760898 (9) Dehydration ICD Codes: E86.0 - Dehydration SNOMED: 31744361 Status: progressing Assessment: esbl uti from snf abx per id clinically improving no sob no fever dc planning Subjective ROS Limited/Unobtainable: Yes Allergies: Coded Allergies: Grits (Unverified Allergy, Unknown, 07/06/17) [place] (Unverified Allergy, Unknown, 07/06/17) Objective Last 24 Hour Vital Signs Date Time Temp Pulse Resp B/P (MAP) Pulse Ox O2 Delivery O2 Flow Rate FiO2 07/14/18 20:48 Room Air 07/14/18 20:00 98.1 68 20 125/82 (96) 97 07/14/18 16:00 97.7 55 19 125/75 (92) 94 07/14/18 12:00 97.5 69 19 102/52 (69) 93 07/14/18 09:00 Room Air 07/14/18 08:00 97.1 71 14 130/84 (99) 93 07/14/18 04:00 97.0 71 20 113/72 (86) 96 07/14/18 00:00 97.4 68 20 121/65 (83) 99 Intake and Output 07/13/18 07/14/18 18:59 06:59 Intake Total 2200 ml Balance 2200 ml Intake Oral 2200 ml # Voids 11 Height (Feet): 5 Height (Inches): 4.00 Weight (Pounds): 215 Cardiovascular: normal rate Respiratory/Chest: lungs clear Abdomen: non tender Isela Rubio MD Jul 14, 2018 23:24
[2018-07-15] VITALS: BP 125/68
[2018-07-15] MEDS: oxyCODONE 5mg IR tab ORAL PRN ×2 (06:41→12:46)
[2018-07-15 08:00] VITALS: BP 133/91
[2018-07-15] MEDS: Docusate 100mg cap ORAL SCH (08:39)
[2018-07-15] MEDS: DULoxetine 30mg cap ORAL SCH (08:39)
[2018-07-15] MEDS: Ascorbic Acid 500mg tab ORAL SCH (08:39)
[2018-07-15] MEDS: Zinc Sulfate 220mg cap ORAL SCH (08:40)
[2018-07-15] MEDS ORDERED: Sennosides 8.6mg tab ORAL SCH (09:00)
[2018-07-15 12:00] VITALS: BP 102/66
--- NOTE | 2018-07-15 12:40 | Infectious Diseases Prog Note ---
Assessment/Plan Assessment/Plan IMPRESSION: 1. Leukocytosis.resolved 2. Dysuria. resolved 3. Obesity. 4. Left-sided hydronephrosis. 5. Hypertension. 6. Schizophrenia. RECOMMENDATION: 1. Discontinue Rocephin 2. Agree with discharge Subjective ROS Limited/Unobtainable: Yes Respiratory: Reports: no symptoms Gastrointestinal/Abdominal: Reports: no symptoms Genitourinary: Reports: no symptoms Allergies: Coded Allergies: Grits (Unverified Allergy, Unknown, 07/06/17) [place] (Unverified Allergy, Unknown, 07/06/17) Objective Vital Signs Last 24 Hour Vital Signs Date Time Temp Pulse Resp B/P (MAP) Pulse Ox O2 Delivery O2 Flow Rate FiO2 07/15/18 12:00 97.7 59 18 102/66 (78) 95 07/15/18 09:00 Room Air 07/15/18 08:00 97.9 81 20 133/91 (105) 97 07/15/18 00:00 98.0 66 20 125/68 (87) 97 07/14/18 20:48 Room Air 07/14/18 20:00 98.1 68 20 125/82 (96) 97 07/14/18 16:00 97.7 55 19 125/75 (92) 94 Height (Feet): 5 Height (Inches): 4.00 Weight (Pounds): 215 General Appearance: no acute distress HEENT: mucous membranes moist Respiratory/Chest: lungs clear Cardiovascular: normal rate Abdomen: soft, non tender Extremities: no edema, other - left BKA Current Medications Medications (Trade) Dose Ordered Sig/William Route PRN Reason Start Time Stop Time Status Last Admin Dose Admin Acetaminophen (Tylenol) 1,000 mg Q4HR PRN ORAL Mild Pain/Temp > 100.5 07/11/18 19:45 08/10/18 19:44 Ascorbic Acid (Vitamin C) 500 mg DAILY ORAL 07/12/18 09:00 08/11/18 08:59 07/15/18 08:39 Aspirin (ASA) 325 mg DAILY ORAL 07/12/18 09:00 08/11/18 08:59 07/15/18 08:40 Baclofen (Lioresal) 10 mg BID ORAL 07/12/18 09:00 08/11/18 08:59 07/15/18 08:39 Bisacodyl (Dulcolax) 10 mg DAILYPRN PRN RECTAL Constipation 07/14/18 16:15 08/13/18 16:14 Ceftriaxone Sodium 1 gm/ Dextrose 55 ml @ 110 mls/hr Q24H IVPB 07/13/18 15:00 07/20/18 14:59 07/14/18 15:08 Clonazepam (KlonoPIN) 1 mg Q6H ORAL 07/12/18 08:00 07/19/18 07:59 07/15/18 08:02 Docusate Sodium (Colace) 100 mg TWICE A DAY ORAL 07/12/18 09:00 08/11/18 08:59 07/15/18 08:39 Duloxetine HCl (Cymbalta) 60 mg DAILY ORAL 07/12/18 09:00 08/11/18 08:59 07/15/18 08:39 Gabapentin (Neurontin) 200 mg THREE TIMES A DAY ORAL 07/12/18 09:00 08/11/18 08:59 07/15/18 08:40 Magnesium Hydroxide (Mom) 30 ml Q4H PRN ORAL Constipation 07/14/18 16:15 08/13/18 16:14 Multivitamins (Multivitamins) 1 tab DAILY ORAL 07/12/18 09:00 08/11/18 08:59 07/15/18 08:39 Oxycodone HCl (Roxicodone) 5 mg Q6H PRN ORAL FOR MODERATE PAIN 07/11/18 19:45 07/18/18 19:44 07/15/18 06:41 Quetiapine Fumarate (SEROquel) 100 mg DAILY ORAL 07/12/18 09:00 08/11/18 08:59 07/15/18 08:39 Sennosides (Senokot) 8.6 mg DAILY ORAL 07/15/18 09:00 08/13/18 11:29 07/15/18 08:40 Tramadol HCl (Ultram) 50 mg Q6H PRN ORAL For Pain 07/11/18 19:45 07/18/18 19:44 Trazodone HCl (Desyrel) 50 mg BEDTIME ORAL 07/11/18 21:00 08/10/18 20:59 07/14/18 20:10 Zinc Sulfate (Zinc Sulfate) 220 mg DAILY ORAL 07/12/18 09:00 08/11/18 08:59 07/15/18 08:40 Jose Solis MD Jul 15, 2018 12:40
--- NOTE | 2018-07-15 16:50 | General Progress Note ---
Assessment/Plan Assessment: Assessment/Plan: # Leukocytosis is likely related to infection, reactive process, on abx at this time, potentially had acute pyelonephritis on presentation, likely esbl uti --> have reviewed peripheral smear and bandemia/neutrophilia noted --> continue antibiotics if they have been started by ID team --> monitor for resolution --> trend as needed ==>13k-->10k # Left kidney mass -- 5 cm low-attenuation lesion demonstrating slightly higher than normal fluid attenuation coming off of the upper pole left kidney --> likely represents a complex possibly proteinaceous cyst, but necrotic solid mass also possible. --> f/u in the outpatient setting # Dehydration --> ivf to continue --> anti-nausea meds prn --> per renal # S/P BKA (below knee amputation) unilateral --> left leg s/p amputation # Anxiety --> as per psych # Left hydronephrosis The timing of this note does not necessarily reflect the time of the patient was seen. Greatly appreciate consultation! Subjective Constitutional: Denies: no symptoms, chills, diaphoresis, fever, malaise, weakness, other HEENT: Denies: no symptoms, eye pain, blurred vision, tearing, double vision, ear pain, ear discharge, nose pain, nose congestion, throat pain, throat swelling, mouth pain, mouth swelling, other Respiratory: Denies: no symptoms, cough, orthopnea, shortness of breath, SOB with excertion, SOB at rest, sputum, stridor, wheezing, other Gastrointestinal/Abdominal: Denies: no symptoms, abdomen distended, abdominal pain, black stools, tarry stools, blood in stool, constipated, diarrhea, difficulty swallowing, nausea, poor appetite, poor fluid intake, rectal bleeding , vomiting, other Genitourinary: Denies: no symptoms, burning, discharge, frequency, flank pain, hematuria, incontinence, pain, urgency, other Endocrine: Denies: no symptoms, excessive sweating, flushing, intolerance to cold, intolerance to heat, increased hunger, increased thirst, increased urine, unexplained weight gain, unexplained weight loss, other Hematologic/Lymphatic: Denies: no symptoms, anemia, easy bleeding, easy bruising, other Allergies: Coded Allergies: Grits (Unverified Allergy, Unknown, 07/06/17) [place] (Unverified Allergy, Unknown, 07/06/17) Subjective 07/13: no fevers or chills, no night sweats report, no tachycardia, no night sweats 07/14: no changes, no night sweats, no significant changes 07/15: no events to report, no f/c, feeling better, overall less pain, potential dc shortly Objective Last 24 Hour Vital Signs Date Time Temp Pulse Resp B/P (MAP) Pulse Ox O2 Delivery O2 Flow Rate FiO2 07/15/18 12:00 97.7 59 18 102/66 (78) 95 07/15/18 09:00 Room Air 07/15/18 08:00 97.9 81 20 133/91 (105) 97 07/15/18 00:00 98.0 66 20 125/68 (87) 97 07/14/18 20:48 Room Air 07/14/18 20:00 98.1 68 20 125/82 (96) 97 Intake and Output 07/14/18 07/15/18 19:00 07:00 Intake Total 630 ml Balance 630 ml Intake Oral 520 ml IV Total 110 ml # Voids 5 # Bowel Movements 3 Height (Feet): 5 Height (Inches): 4.00 Weight (Pounds): 215 Objective General Appearance: well appearing, nad Head: normocephalic EENT: PERRL/EOMI, normal ENT inspection Neck: supple Respiratory: normal breath sounds, no respiratory distress Cardiovascular: normal rate Gastrointestinal: normal inspection, non tender, soft, nd Msk: normal inspection, back normal Neurologic: normal inspection, alert, oriented x3, responsive Psychiatric: normal inspection, judgement/insight normal, memory normal Skin: normal inspection, normal color Lymphatic: normal inspection, no adenopathy Colby Canada MD Jul 15, 2018 16:50
--- NOTE | 2018-07-16 13:12 | Discharge Summary ---
Discharge Summary Discharge Summary _ DATE OF ADMISSION: 07/11/2018 DATE OF DISCHARGE: 07/15/2018 DISCHARGED BY: Dr. Isela Alejandro CONSULTANTS: Dr. Colby Solis BRIEF HOSPITAL COURSE: Patient is a 58-year-old female, who was sent to ED from intermediate due to complicated UTI. Patient had decreased oral intake and urinalysis showed growth of ESBL intermediate. She was then transported to ED for further evaluation. She has medical history significant for dementia, osteomyelitis of the ankle, hypertension and seizure disorder. On evaluation at ED, vital signs were stable. Blood work showed elevated WBC to 13. Hemoglobin and hematocrit were stable. Electrolytes were normal. EKG showed normal sinus rhythm. Urinalysis was negative. Chest x-ray did not show any acute disease. CAT scan of the abdomen and pelvis showed left-sided hydronephrosis and hydroureter. She was admitted for ESBL UTI. She was given IV hydration. She was eventually started on Rocephin pending culture results. Patient had a noted 5 cm low-attenuation lesion on the upper pole of the left kidney. Likely complex proteinaceous cyst, but necrotic solid mass. She was advised to follow-up as outpatient. Leukocytosis resolved. Blood culture did not isolate any growth. Antibiotics were discontinued. Patient was discharged back to intermediate. FINAL DIAGNOSES: ESBL UTI from intermediate Leukocytosis likely related to infection Left kidney mass Left hydronephrosis Anxiety Dehydration Seizure disorder Schizophrenia Hypertension Obesity DISPOSITION: Patient was discharged to a SNF. DISCHARGE MEDICATIONS: Refer to Discharge Medication List. I have been assigned to complete a discharge summary on this account, I was not involved with the patient's management. Kimberly Treadwell NP Jul 16, 2018 13:12
== END 2018-07-15 14:19 | DRG 690 ==
LOC: EDBD 14:30 → EDBEDREQ 14:59 → EDBEDREQSVC 15:00 → EDBEDREQ 15:00 → EMR 15:21 → 4E 15:32 → EDBEDREQ 15:53
DX: N39.0 Urinary tract infection, site not specified (principal); N13.30 Unspecified hydronephrosis; E86.0 Dehydration; Z87.891 Personal history of nicotine dependence; E87.6 Hypokalemia; N28.89 Other specified disorders of kidney and ureter; F41.9 Anxiety disorder, unspecified; Z79.82 Long term (current) use of aspirin; B96.89 Other specified bacterial agents as the cause of diseases classified elsewhere; Z16.12 Extended spectrum beta lactamase (ESBL) resistance; G40.909 Epilepsy, unspecified, not intractable, without status epilepticus; F20.9 Schizophrenia, unspecified; I10 Essential (primary) hypertension; E66.9 Obesity, unspecified; Z89.512 Acquired absence of left leg below knee; R32 Unspecified urinary incontinence; Z68.37 Body mass index [BMI] 37.0-37.9, adult
CPT/HCPCS: 36415; 71045; 76700; 80053; 81003; 82553; 85025; 85651; 87040; 93005; 99285

== ENCOUNTER 2019-01-29 13:51 | Inpatient (IN) | payer MEDICARE, MEDICAID ==
[~2019-01-29] VITALS: Ht 162.6 cm; Wt 89.1 kg
[2019-01-29] VITALS (13 sets, daily range): BP systolic 131–195; BP diastolic 71–167
[~2019-01-29 13:51] MED LIST changes: +SEROQUEL100 MG ORAL
[2019-01-29] MEDS ORDERED: Etomidate 40mg/20ml Inj IV ONE (14:00)
[2019-01-29] MEDS ORDERED: Versed 50mg/D5W 100ml 100 ML IV ONE (14:00)
--- NOTE | 2019-01-29 14:00 | NUR ---
ED Nurse Note: Patient brought in by [facility] c/o congestion and generalized weakness that started earlier today at 0700. patient is lethargic and responds to pain however is not able to verbalize any words, patient presents with bilateral knee amputee, patients sugar is at 83, Patient is satting at 94% on 3 liters via nasal cannula, patient placed on a security sales consultant, will continue to monitor
--- NOTE | 2019-01-29 14:05 | NUR ---
ED Nurse Note: Patient does present with a gag reflex, able to react with light pain.
--- NOTE | 2019-01-29 14:12 | NUR ---
ED Nurse Note: Patient is intubated, right lip 23cm.
[2019-01-29] MEDS ORDERED: Midazolam 2mg/2ml Inj IVP ONE (14:15)
--- NOTE | 2019-01-29 14:22 | Emergency Room Report ---
History of Present Illness General Chief Complaint: Generalized Weakness Source: Medical Record, EMS Present Illness HPI Apparently the patient presents with congestion. [facility] giving her [facility] treatments. EMS increased that to 3 L because her O2 saturation was 92 in the field. They stated that she usually has a [place] Coma Scale that is normal however she is unresponsive at this time. Unable to ascertain if given any medication prior to transfer. Aside from old medical record there is no other history available at this time. Apparently h/o seizures - only meds on [facility] are clonazepam and Gabapentin. No seizure activity noted. Patient was recently discharged from the hospital. Discharge diagnoses: ESBL UTI from retirement Leukocytosis likely related to infection Left kidney mass Left hydronephrosis Anxiety Dehydration Seizure disorder Schizophrenia Hypertension Obesity Allergies: Coded Allergies: Grits (Unverified Allergy, Unknown, 07/06/17) [place] (Unverified Allergy, Unknown, 07/06/17) Patient History Limited by: medical condition Past Medical History: see triage record, old chart reviewed Social History: Reports: smoking Social History Narrative SNF - full code Last Menstrual Period: Unknown Now: No Reviewed Nursing Documentation: PMH: Agreed; PSxH: Agreed Nursing Documentation-PMH Hx Cardiac Problems: Yes Hx Hypertension: Yes Hx Cancer: No Hx Gastrointestinal Problems: Yes - NAUSEA/ VOMTING Hx Neurological Problems: Yes Hx Seizures: Yes Hx Weakness: Yes - MUSCULAR Review of Systems All Other Systems: limited Physical Exam Vital Signs Date Time Temp Pulse Resp B/P (MAP) Pulse Ox O2 Delivery O2 Flow Rate FiO2 01/29/19 13:52 97.9 63 18 153/84 (107) 94 Room Air Sp02 EP Interpretation: reviewed, abnormal - Interpreted as low by me on 3 L/ min by nasal cannula General Appearance: Stupor Head: normocephalic, atraumatic ENT: dry mucus membranes, other - No gag Neck: other - Flaccid Respiratory: decreased breath sounds, rhonchi, other - Poor tidal volume and slow respiratory rate Cardiovascular #1: regular rate, rhythm, no edema Cardiovascular #2: 2+ radial (L) Gastrointestinal: decreased bowel sounds, overweight Musculoskeletal: no calf tenderness, other - Randomly moving all 4, BKA L Neurologic: other - Responsive, moving all 4 extremities Psychiatric: other - Unresponsive Skin: warm/dry, other - Abrasions abdominal wall Procedures Critical Care Time Critical Care Time Total Critical Care Time: 90 min bedside evaluation and treatment excludes procedures (EKG, intubation). Reason for critical care: Respiratory failure, antibiotics, sedation Possible complications: hypotension, hypertension, OR, shock, arrhythmias, metabolic acidosis, end organ damage, respiratory failure. Interventions: Intubation, sedation, antibiotics, repeat evaluations, discussion with admitting physician and consulting recording studio intern Course: Patient presented with dyspnea. Initial exam revealed patient with respiratory failure. Immediate intubation. Sedation ordered and reassessed. Titration of FiO2. Evaluation of blood gas. Discussion with respiratory therapy. Repeat evaluation regarding sedation and increasing Versed drip. Discussion with consulting recording studio intern. Discussion with admitting physician. Consultations: nursing staff, EMS, respiratory therapy, admitting physician, consulting recording studio intern Performed by: Dr. Bryant Tolerated well condition = critical Intubation Intubation : Consent: Emergent Time of Intubation: 13:05 Intubation Method: orotracheal Tube Size (cm): 7.5 - 23 lower gum Medications: Etomidate Breath Sounds after Intubation: equal Intubation Complications: no complications Post Intubation Xray: Yes Attempts: One Patient Tolerated: Well Complications: None Medical Decision Making Diagnostic Impression: Primary Impression: Respiratory failure Qualified Codes: J96.01 - Acute respiratory failure with hypoxia; J96.02 - Acute respiratory failure with hypercapnia Additional Impressions: Left lower lobe pulmonary infiltrate UTI (urinary tract infection) Qualified Codes: N39.0 - Urinary tract infection, site not specified Acute renal failure Qualified Codes: N17.9 - Acute kidney failure, unspecified ER Course Patient presents unresponsive and in respiratory failure with hypoxia and most likely hypercapnia. Differential includes pneumonia, medication excess, CO2 retention amongst others. We have to be concerned about possible sepsis. Her blood pressure is okay at this time. Immediate intubation is indicated. No seizure activity was noted. There is no IV access and I started a EJ on the right-hand side. Bloods were drawn and this was accessed to deliver etomidate. CXR good tube, possible L infiltrate. EKG without injury. CMP with elevated BUN and creatinine which is rheumatic change from prior. Elevated BNP. Pyuria. Antibiotics ordered. Leukocytosis. 14:55 Increasing Versed drip. Evaluated by Dr. Rosales in ED. ABG probably venous admixture - satting 96% on 60%. Again need to increase Versed. Sedation better. Patient was stable however critical condition. Discussed with Dr. Rubio. Admit to ICU. Laboratory Tests Test 01/29/19 14:15 01/29/19 14:55 01/29/19 15:00 01/29/19 21:00 White Blood Count 14.1 K/UL (4.8-10.8) H Red Blood Count 3.66 M/UL (4.20-5.40) L Hemoglobin 11.7 G/DL (12.0-16.0) L Hematocrit 35.8 % (37.0-47.0) L Mean Corpuscular Volume 98 FL (80-99) Mean Corpuscular Hemoglobin 31.8 PG (27.0-31.0) H Mean Corpuscular Hemoglobin Concent 32.6 G/DL (32.0-36.0) Red Cell Distribution Width 13.3 % (11.6-14.8) Platelet Count 220 K/UL (150-450) Mean Platelet Volume 6.5 FL (6.5-10.1) Neutrophils (%) (Auto) 70.9 % (45.0-75.0) Lymphocytes (%) (Auto) 15.1 % (20.0-45.0) L Monocytes (%) (Auto) 10.3 % (1.0-10.0) H Eosinophils (%) (Auto) 3.2 % (0.0-3.0) H Basophils (%) (Auto) 0.5 % (0.0-2.0) Prothrombin Time 10.0 SEC (9.30-11.50) Prothrombin Time INR 0.9 (0.9-1.1) PTT 27 SEC (23-33) Sodium Level 147 MMOL/L (136-145) H Potassium Level 4.4 MMOL/L (3.5-5.1) Chloride Level 110 MMOL/L (98-107) H Carbon Dioxide Level 26 MMOL/L (21-32) Anion Gap 11 mmol/L (5-15) Blood Urea Nitrogen 64 mg/dL (7-18) H Creatinine 4.6 MG/DL (0.55-1.30) H Estimate Glomerular Filtration Rate 9.8 mL/min (>60) Glucose Level 96 MG/DL (74-106) Lactic Acid Level 0.50 mmol/L (0.4-2.0) Calcium Level 9.2 MG/DL (8.5-10.1) Magnesium Level 2.6 MG/DL (1.8-2.4) H Total Bilirubin 0.4 MG/DL (0.2-1.0) Aspartate Amino Transferase (AST) 13 U/L (15-37) L Alanine Aminotransferase (ALT) 14 U/L (12-78) Alkaline Phosphatase 61 U/L (46-116) Total Creatine Kinase 57 U/L (26-308) Troponin I 0.000 ng/mL (0.000-0.056) Pro-B-Type Natriuretic Peptide 2019 pg/mL (0-125) H Total Protein 6.9 G/DL (6.4-8.2) Albumin 3.1 G/DL (3.4-5.0) L Globulin 3.8 g/dL Albumin/Globulin Ratio 0.8 (1.0-2.7) L Amylase Level 58 U/L (25-115) Lipase 80 U/L (73-393) Urine Color Pale yellow Urine Appearance Clear Urine pH 5 (4.5-8.0) Urine Specific [place] 1.010 (1.005-1.035) Urine Protein 2+ (NEGATIVE) H Urine Glucose (UA) Negative (NEGATIVE) Urine Ketones Negative (NEGATIVE) Urine Blood 4+ (NEGATIVE) H Urine Nitrite Negative (NEGATIVE) Urine Bilirubin Negative (NEGATIVE) Urine Urobilinogen Normal MG/DL (0.0-1.0) Urine Leukocyte Esterase 3+ (NEGATIVE) H Urine RBC 15-20 /HPF (0 - 2) H Urine WBC 15-20 /HPF (0 - 2) H Urine Squamous Epithelial Cells Occasional /LPF Urine Bacteria Occasional /HPF (NONE) Arterial Blood pH 7.331 (7.350-7.450) 7.425 (7.350-7.450) Arterial Blood Partial Pressure CO2 45.0 mmHg (35.0-45.0) 36.2 mmHg (35.0-45.0) Arterial Blood Partial Pressure O2 60.3 mmHg (75.0-100.0) L 74.5 mmHg (75.0-100.0) L Arterial Blood HCO3 23.2 mmol/L (22.0-26.0) 23.2 mmol/L (22.0-26.0) Arterial Blood Oxygen Saturation 89.9 % (95-100) *L 94.5 % (95-100) L Arterial Blood Base Excess -2.7 (-2-2) L -0.8 (-2-2) [place] Test Positive Positive Microbiology Date/Time Source Procedure Growth Status 01/29/19 14:50 Nasal Nares - Final Complete 01/29/19 14:50 Nasal Nares - Final Complete EKG Diagnostic Results Rate: normal Rhythm: NSR ST Segments: no acute changes Rhythm Strip Diag. Results EP Interpretation: yes Rhythm: NSR, no PVC's, no ectopy Chest X-Ray Diagnostic Results Chest X-Ray Diagnostic Results : Chest X-Ray Ordered: Yes # of Views/Limited/Complete: 1 View Indication: Other EP Interpretation: Yes Interpretation: no effusion, no pneumothorax, other - ET good, possible L infiltrate Impression: Other Electronically Signed by: Electronically signed by Gabino Bryant MD Last Vital Signs Date Time Temp Pulse Resp B/P (MAP) Pulse Ox O2 Delivery O2 Flow Rate FiO2 01/30/19 00:00 51 01/30/19 00:00 50 01/30/19 00:00 98.3 16 183/85 99 Mechanical Ventilator 01/29/19 15:00 15.0 Status: improved Disposition: ADMITTED INPATIENT Condition: Critical Gabino Bryant MD Jan 29, 2019 14:22
[2019-01-29 14:24] LABS: BASOPHILS % (AUTO) 0.5 % (0.0-2.0); EOSINOPHILS % (AUTO) 3.2 % (0.0-3.0); HEMATOCRIT 35.8 % (37.0-47.0); HEMOGLOBIN 11.7 G/DL (12.0-16.0); LYMPHOCYTES % (AUTO) 15.1 % (20.0-45.0); MEAN CORPUSCULAR VOLUME 98 FL (80-99); MONOCYTES % (AUTO) 10.3 % (1.0-10.0); NEUTROPHILS % (AUTO) 70.9 % (45.0-75.0); PLATELET COUNT 220 K/UL (150-450); RED BLOOD COUNT 3.66 M/UL (4.20-5.40); RED CELL DISTRIBUTION WIDTH 13.3 % (11.6-14.8); WHITE BLOOD COUNT 14.1 K/UL (4.8-10.8)
[2019-01-29 14:33] LABS: INR 0.9 (0.9-1.1)
[2019-01-29 14:45] LABS: ANION GAP 11 mmol/L (5-15); BLOOD UREA NITROGEN 64 mg/dL (7-18); CALCIUM 9.2 MG/DL (8.5-10.1); CARBON DIOXIDE 26 MMOL/L (21-32); CHLORIDE 110 MMOL/L (98-107); CREATININE 4.6 MG/DL (0.55-1.30); POTASSIUM 4.4 MMOL/L (3.5-5.1); SODIUM 147 MMOL/L (136-145)
[2019-01-29 14:49] LABS: ALANINE AMINOTRANSFERASE 14 U/L (12-78); ALBUMIN 3.1 G/DL (3.4-5.0); ALBUMIN/GLOBULIN RATIO 0.8 (1.0-2.7); ALKALINE PHOSPHATASE 61 U/L (46-116); AMYLASE 58 U/L (25-115); ASPARTATE AMINO TRANSFERASE 13 U/L (15-37); BILIRUBIN,TOTAL 0.4 MG/DL (0.2-1.0); CREATINE KINASE 57 U/L (26-308)
[2019-01-29] MEDS ORDERED: Azithromycin 500 MG in D5W 275 ML IVPB ONE (15:00)
[2019-01-29] MEDS ORDERED: Piperacillin/Tazobactam 3.375 GM in NS 110 ML IVPB ONE (15:00)
[2019-01-29] MEDS ORDERED: Versed 50mg/D5W 100ml 100 ML IV SCH (15:00)
[2019-01-29 15:03] LABS: APPEARANCE,URINE CLEAR; BILIRUBIN, URINE NEGATIVE (NEGATIVE); COLOR,URINE PALE YELLOW; GLUCOSE, URINE (UA) NEGATIVE (NEGATIVE); KETONES,URINE NEGATIVE (NEGATIVE); LEUKOCYTE ESTERASE ,URINE 3+ (NEGATIVE); NITRITE,URINE NEGATIVE (NEGATIVE); PH,URINE 5 (4.5-8.0); PROTEIN,URINE 2+ (NEGATIVE); UROBILINOGEN,URINE NORMAL MG/DL (0.0-1.0)
--- NOTE | 2019-01-29 15:05 | NUR ---
ED Nurse Note: Per bunny Mix to titrate versed to 5mg/hr
--- NOTE | 2019-01-29 15:19 | Diagnostic Imaging Report ---
Indication: Reason For Exam: ALOC Technique: Single AP view of the chest. Comparison: Chest radiograph dated 07/11/2018 Findings: The cardiomediastinal silhouette is unchanged with persistent cardiomegaly. Redemonstration of pulmonary vascular congestion. Likely bibasilar atelectasis. No pneumothorax. The tracheal tube in good position. No acute osseous normality. IMPRESSION: 1. Pulmonary vascular congestion with atelectasis. 2. Endotracheal tube in good position.
--- NOTE | 2019-01-29 15:41 | Cardiac Electrophysiology PN ---
Subjective Subjective [id number] Objective Last 24 Hour Vital Signs Date Time Temp Pulse Resp B/P (MAP) Pulse Ox O2 Delivery O2 Flow Rate FiO2 01/29/19 15:05 16 Mechanical Ventilator 40 01/29/19 14:50 16 Mechanical Ventilator 15.0 01/29/19 14:20 72 16 97 Mechanical Ventilator 40 01/29/19 14:20 72 16 40 01/29/19 13:52 97.9 63 18 153/84 (107) 94 Room Air Laboratory Tests Test 01/29/19 14:15 01/29/19 14:55 01/29/19 15:00 White Blood Count 14.1 K/UL (4.8-10.8) H Red Blood Count 3.66 M/UL (4.20-5.40) L Hemoglobin 11.7 G/DL (12.0-16.0) L Hematocrit 35.8 % (37.0-47.0) L Mean Corpuscular Volume 98 FL (80-99) Mean Corpuscular Hemoglobin 31.8 PG (27.0-31.0) H Mean Corpuscular Hemoglobin Concent 32.6 G/DL (32.0-36.0) Red Cell Distribution Width 13.3 % (11.6-14.8) Platelet Count 220 K/UL (150-450) Mean Platelet Volume 6.5 FL (6.5-10.1) Neutrophils (%) (Auto) 70.9 % (45.0-75.0) Lymphocytes (%) (Auto) 15.1 % (20.0-45.0) L Monocytes (%) (Auto) 10.3 % (1.0-10.0) H Eosinophils (%) (Auto) 3.2 % (0.0-3.0) H Basophils (%) (Auto) 0.5 % (0.0-2.0) Prothrombin Time 10.0 SEC (9.30-11.50) Prothromb Time International Ratio 0.9 (0.9-1.1) Activated Partial Thromboplast Time 27 SEC (23-33) Sodium Level 147 MMOL/L (136-145) H Potassium Level 4.4 MMOL/L (3.5-5.1) Chloride Level 110 MMOL/L (98-107) H Carbon Dioxide Level 26 MMOL/L (21-32) Anion Gap 11 mmol/L (5-15) Blood Urea Nitrogen 64 mg/dL (7-18) H Creatinine 4.6 MG/DL (0.55-1.30) H Estimat Glomerular Filtration Rate 9.8 mL/min (>60) Glucose Level 96 MG/DL (74-106) Lactic Acid Level 0.50 mmol/L (0.4-2.0) Calcium Level 9.2 MG/DL (8.5-10.1) Magnesium Level 2.6 MG/DL (1.8-2.4) H Total Bilirubin 0.4 MG/DL (0.2-1.0) Aspartate Amino Transf (AST/SGOT) 13 U/L (15-37) L Alanine Aminotransferase (ALT/SGPT) 14 U/L (12-78) Alkaline Phosphatase 61 U/L (46-116) Total Creatine Kinase 57 U/L (26-308) Troponin I 0.000 ng/mL (0.000-0.056) Pro-B-Type Natriuretic Peptide 2019 pg/mL (0-125) H Total Protein 6.9 G/DL (6.4-8.2) Albumin 3.1 G/DL (3.4-5.0) L Globulin 3.8 g/dL Albumin/Globulin Ratio 0.8 (1.0-2.7) L Amylase Level 58 U/L (25-115) Lipase 80 U/L (73-393) Urine Color Pale yellow Urine Appearance Clear Urine pH 5 (4.5-8.0) Urine Specific [place] 1.010 (1.005-1.035) Urine Protein 2+ (NEGATIVE) H Urine Glucose (UA) Negative (NEGATIVE) Urine Ketones Negative (NEGATIVE) Urine Blood 4+ (NEGATIVE) H Urine Nitrite Negative (NEGATIVE) Urine Bilirubin Negative (NEGATIVE) Urine Urobilinogen Normal MG/DL (0.0-1.0) Urine Leukocyte Esterase 3+ (NEGATIVE) H Urine RBC 15-20 /HPF (0 - 2) H Urine WBC 15-20 /HPF (0 - 2) H Urine Squamous Epithelial Cells Occasional /LPF Urine Bacteria Occasional /HPF (NONE) Arterial Blood pH 7.331 (7.350-7.450) Arterial Blood Partial Pressure CO2 45.0 mmHg (35.0-45.0) Arterial Blood Partial Pressure O2 60.3 mmHg (75.0-100.0) L Arterial Blood HCO3 23.2 mmol/L (22.0-26.0) Arterial Blood Oxygen Saturation 89.9 % (95-100) *L Arterial Blood Base Excess -2.7 (-2-2) L Miguel Angel Test Positive Microbiology Date/Time Source Procedure Growth Status 01/29/19 14:50 Nasal Nares - Final Complete 01/29/19 14:50 Nasal Nares - Final Complete Justo Rosales MD Jan 29, 2019 15:41
[2019-01-29] MEDS ORDERED: ACETAMINOPHEN325 M1 ORAL (15:54)
--- NOTE | 2019-01-29 16:08 | NUR ---
ED Nurse Note: Per bunny Mix to titrate versed to 6 mg/hr
--- NOTE | 2019-01-29 16:57 | NUR ---
ED Nurse Note: Patient was admited to ICU unit due to resp disstress, and generalized weakness. Patient was transfered to the unit via gurney by ACLS protocol, patient does not have any belongings. Patient was transfered with Medazolam running at rate 6 mg/hr, patient's RASS score -2.
--- NOTE | 2019-01-29 17:05 | NUR ---
NURSE NOTES: Received patient from GUZMAN Ramon. Patient RASS score -2 at this time on Versed drip at 6mg/hr. Patient eyes closed but she is moving her legs. Patient reported to be nonverbal since admission to ER. Patient HR 61, BP 158/78, temp 98.2, oxygen saturation 100%, and RR 16. Patient weight on bed scale is 224lbs. Patient intubated with 7.5cm ET tube with 23cm at the lip line. Patient ventilator setting AC 16, tidal volume 550, FiO2 40%, PEEP 0. Patient has a mandujano that was inserted prior to arrival. 500mL urine in collection bag at this time. Patient has scar on sacrum, bunion on right foot and left leg bellow knee amputation. Patient has right EJ 20 gauge peripheral IV that is patent, asymptomatic, and running Versed drip at this time at 6mg/hr. Patient on soft wrist restraints as she was witnessed attempting to pull out her ET tube. Patient bed in low position with bed alarms on and call light in reach at this time. right heel and left leg elevated. NO open wounds evident. Oral care done at this time.
--- NOTE | 2019-01-29 17:44 | NUR ---
NURSE NOTES: Called and left message for Dr Rubio on his emergency line requesting admission orders. Awaiting call back at this time.
--- NOTE | 2019-01-29 17:47 | Pulmonolgy Critical Care Note ---
Critical Care - Asmt/Plan Assessment/Plan: Pulmonary Critical Care Consultation HPI The patient is a 58 year old woman admitted with worsening shortness of breath, respiratory failure requiring intubation, pneumonia. Altered mental status prior to intubation in the ED. Noted to have evidence of UTI in addition to pneumonia LLL Per chart review h/o Seizure disorder, Left Kidney Mass, Hydronephrosis, Hypertension, HHD, Nausea and Vomiting Patient was recently discharged from the hospital. Past Medical History: ESBL UTI from long term Leukocytosis likely related to infection Left kidney mass Left hydronephrosis Anxiety Dehydration Seizure disorder on Clonazepam and Gabapentin Weakness Schizophrenia Hypertension Obesity PSH: Left BKA Allergies: Grits (Unverified Allergy, Unknown, 07/06/17) [place] (Unverified Allergy, Unknown, 07/06/17) All Other Systems: limited Physical Exam Vital Signs Noted Date Time Temp Pulse Resp B/P (MAP) Pulse Ox O2 Delivery O2 Flow Rate FiO2 01/29/19 13:52 97.9 63 18 153/84 (107) 94 Vent General Appearance: Sedated on the Ventilator Head: normocephalic, atraumatic, ENT: dry mucus membranes, ETT Neck: No LN Respiratory: Bilateral rhonchi Cardiovascular: regular rate, rhythm, HS1, HS2, no edema Gastrointestinal: decreased bowel sounds, overweight, abrasions abdominal wall Musculoskeletal: moving all limbs, BKA L Neurologic: Sedated, PERRL Psychiatric: other - Unresponsive Skin: warm/dry, Impression: Ventilator Dependent Respiratory failure Left lower lobe pulmonary infiltrate Urinary tract infection ESBL UTI from long term Acute on Chronic Renal Failure Left kidney mass Left hydronephrosis Anxiety Dehydration Seizure disorder on Clonazepam and Gabapentin Weakness Schizophrenia Hypertension Obesity Plan ACVC Wean FIO2 Sedation PRN Check ABG Antibiotics per ID Aspiration/Seizure precautions HHN PPX [employer]CH[employer]ICIAN medications EKG: Rate: normal Rhythm: NSR ST Segments: no acute changes Chest X-Ray: no effusion, no pneumothorax, other - ET well positioned, possible L sided infiltrate Critical Care - Objective Last 24 Hour Vital Signs Date Time Temp Pulse Resp B/P (MAP) Pulse Ox O2 Delivery O2 Flow Rate FiO2 01/29/19 16:08 20 Mechanical Ventilator 40 01/29/19 15:20 16 Mechanical Ventilator 40 01/29/19 15:05 16 Mechanical Ventilator 40 01/29/19 14:50 16 Mechanical Ventilator 15.0 01/29/19 14:20 72 16 97 Mechanical Ventilator 40 01/29/19 14:20 72 16 40 01/29/19 14:00 97.9 67 18 180/80 94 Room Air 01/29/19 14:00 63 18 Room Air 01/29/19 13:52 97.9 63 18 153/84 (107) 94 Room Air Micro: Microbiology Date/Time Source Procedure Growth Status 01/29/19 14:50 Nasal Nares - Final Complete 01/29/19 14:50 Nasal Nares - Final Complete Accucheck: 83 Critical Care - Subjective ROS Limited/Unobtainable: No Condition: critical EKG Rhythm: Sinus Rhythm FI02: 40 Vent Support Breath Rate: 16 Vent Support Mode: AC Vent Tidal Volume: 550 Sputum Amount: Small PEEP: 0.0 PIP: 22 ET-Tube: 7.0 ET Position: 23 Gabino Smith MD Jan 29, 2019 17:47
--- NOTE | 2019-01-29 18:15 | NUR ---
NURSE NOTES: Admission orders received from Dr Smith. All orders read back, verified, and placed at this time.
[2019-01-29] MEDS ORDERED: D5 1/2NS 1,000 ML IV SCH (18:30)
--- NOTE | 2019-01-29 19:00 | NUR ---
NURSE NOTES: oral gastric tube inserted at this time. Nasogastric tube insertion unsuccessful times [address] at this time. Green gastric content aspirated. awaiting KUB to verify placement.
[2019-01-29] MEDS ORDERED: MELATONIN 3 MG1 EAC1 PO (19:14)
[2019-01-29] MEDS ORDERED: MELOXICAM7.5 MG PO (19:14)
[2019-01-29] MEDS ORDERED: BACLOFEN10 MG ORAL (19:14)
[2019-01-29] MEDS ORDERED: CRANBERRY450 M4 PO (19:14)
[2019-01-29] MEDS ORDERED: FLEET ENEMA133 ML RECTAL (19:14)
[2019-01-29] MEDS ORDERED: DULCOLAX10 MG RC (19:14)
[2019-01-29] MEDS ORDERED: MOM30 ML ORAL (19:14)
[2019-01-29] MEDS ORDERED: Lidocaine 1% Plain 30 ml INJ PRN (19:15)
[2019-01-29] MEDS ORDERED: Heparin1,000 units/500ml Premix(Conc:2 units/ml) IV PRN (19:15)
--- NOTE | 2019-01-29 19:30 | NUR ---
HAND-OFF: Report given to GUZMAN Ma. Patient awaiting KUB, ABG, and head CT. Endorsed to administer due medications and finish admission. Patient stable at this time. Addendum: 01/29/19 at 1999 by Marjan Shanks RN Spoke with Dr Smith when he rounded on the patient at this time. Dr. Smith ordered for vanco and zosyn to be discontinued as ID doctor placed orders for antibiotics at this time.
--- NOTE | 2019-01-29 19:30 | NUR ---
NURSE NOTES: Received pt in no acute distress. Newly admitted for respiratory failure. Pt orally intubated with #7.5 ETT placed over right lip at 23cm and noted vent settings of AC 16 TV550 fio2.40 peep 5. Secretions white thin via ETT; chest sounds with scattered rhonchi. Noted OGT with [place] sump at 60cm level. Auscultated and appears to be in situ but awaiting abdominal Xray for further verification. IV site on right EJ patent with Midazolam gtt infusing at 6mg/h to RASS-2. Pt however restless at times and Bilat soft wrist restraints on. Pt has an old Left BKA with stump well healed. Skin pale, but dry and intact. FC patent, draining clear yellow urine. Will monitor vital signs and sedation level. Dr Smith here and still wants head CT to be done stat.
--- NOTE | 2019-01-29 19:44 | Diagnostic Imaging Report ---
RENAL ULTRASOUND - COMPLETE INDICATION: Renal failure. TECHNIQUE: Multiplanar ultrasound examination of the abdomen with greyscale and doppler imaging. COMPARISON: Abdominal ultrasound dated 06/01/2018 FINDINGS: Limited examination due to patient positioning. Right kidney: Right kidney measures 14.5 cm. Echogenicity is increased. There is moderate to severe hydronephrosis. Left kidney: Left kidney is incompletely evaluated. Bladder: Decompressed by Rod catheter, limiting evaluation. IMPRESSION: 1. Moderate to severe right hydronephrosis. 2. Increased echogenicity of the right kidney, which can be seen in medical renal disease. 3. Incompletely visualized left kidney. These findings are concordant with the [facility] preliminary report.
--- NOTE | 2019-01-29 20:00 | NUR ---
NURSE NOTES: Pt taken down to CT scan per bed with RT, RN and CT techs x2. Pt awake and extremely restless and Dilaudid 0.5 mg given on transport.
[2019-01-29] MEDS: Hydromorphone 0.5mg/0.5ml inj IVP PRN (20:15)
[2019-01-29] MEDS: D5 1/2NS 1,000 ML IV SCH (20:16)
[2019-01-29] MEDS ORDERED: Vancomycin 2gm/D5W 550ml IVPB ONE ×2 (21:00)
--- NOTE | 2019-01-29 21:03 | Diagnostic Imaging Report ---
CT HEAD WITHOUT CONTRAST INDICATION: Reason For Exam: [facility] [place]: Continuous helical CT scanning of the head was performed without intravenous contrast material. Axial and coronal 5 mm sections were generated. Radiation dose was minimized using automated exposure control DOSE: Total Dose Length Product - DLP 1489.[address] Dose Index - CTDIvol(s) 62.7 mGy. COMPARISON: None available FINDINGS: There is no acute intracranial hemorrhage, mass effect or cortical edema. There are scattered subcortical and periventricular white matter hypodensities, which are nonspecific finding but are often associated with chronic ischemic microvascular disease. 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 The ventricles, cisterns and sulci are normal for age. Additional CSF density within the cerebellar fossa may represent cisterna magna. Visualized mastoid air cells and paranasal sinuses are unremarkable. No focal lesions of the bony calvarium or soft tissues of the scalp are seen. Hyperostosis frontalis is noted. There is moderate mucosal thickening of multiple ethmoid air cells. Reasonably within the nasopharynx. There is mild sphenoid sinus mucosal thickening. Increased sclerosis and thickness of the right maxillary sinus wall suggests chronic inflammation. IMPRESSION: 1. No evidence of acute intracranial hemorrhage, mass effect or cortical edema. MRI may be obtained for more sensitive evaluation as clinically indicated. 2. Sinus disease as described above. These findings are concordant with the [facility] preliminary report. The CT scanner at [facility] is accredited by the [employer] and the scans are performed using protocols designed to limit radiation exposure to as low as reasonably achievable to attain images of sufficient resolution adequate for diagnostic evaluation.
[2019-01-29] MEDS: Meropenem 500mg/NS 55ml IVPB SCH ×2 (21:12)
--- NOTE | 2019-01-29 21:15 | Consultation ---
DATE OF CONSULTATION: 01/29/2019 CARDIOLOGY CONSULTATION CONSULTING PHYSICIAN: Justo Rosales M.D. REFERRING PHYSICIAN: Isela Rubio M.D. REASON FOR CONSULTATION: Respiratory failure and bradycardia as well as accelerated hypertension. HISTORY OF PRESENT ILLNESS: The patient is a 58-year-old lady with history of hypertension, COPD, and peripheral vascular disease, status post the left below-knee amputation, who was brought in from [facility] for generalized weakness and congestion. Per ENT, the patient was nonverbal with SpO2 of 94% on three liters nasal cannula. The patient was evaluated in the emergency room, was found to be in respiratory failure and was intubated. The patient's blood pressure at the time of my evaluation in the 180s and heart rate in the 50s and currently on the ventilator, is not able to provide any information. REVIEW OF SYSTEMS: Cannot be obtained. PAST MEDICAL HISTORY: As mentioned above. FAMILY HISTORY: Noncontributory. SOCIAL HISTORY: [facility]. Continues to smoke. FAMILY HISTORY: Noncontributory. PHYSICAL EXAMINATION: VITAL SIGNS: Show blood pressure of 152/84, pulse is 62, respirations 18, and temperature 97.9. HEAD AND NECK: Shows no JVD. She is orally intubated. LUNGS: Decreased breath sounds. Coarse rhonchi. CARDIOVASCULAR: Shows regular S1 and S2 with no gallop or murmur. ABDOMEN: obese. EXTREMITIES: Status post left below-knee amputation. LABORATORY AND DIAGNOSTIC DATA: Her EKG showed normal sinus rhythm, normal electrocardiogram, rate of 68. Laboratories show a white count of 14.9, hematocrit 11.7, hematocrit 35.8, and platelet count of 220,000. Sodium 147, potassium 4.4, BUN of 64, creatinine 4.6, and glucose of 96. Troponin is negative. BNP is 2019. ASSESSMENT AND PLAN: 1. Shortness of breath. This could be secondary to volume overload due to renal failure as the creatinine is 4.6. We will get an echocardiogram. Her BNP is also more than 2000. I will start the patient on Lasix 80 mg IV b.i.d. 2. Possible pneumonia. The patient is already on broad-spectrum IV antibiotic. 3. Chronic obstructive pulmonary disease, heavy smoker. 4. Hypertension Lasix and p.r.n. clonidine, however, may need to add antihypertensive agents. It is of note that back on 01/21/2019, the patient had left ureteral stone and hydronephrosis, underwent double-J stent placement, dilation of stricture by Dr. Daley. Thank you very much, Dr. Rubio, for allowing me to participate in the care of this patient. Please do not hesitate to contact me if you have any questions regarding my evaluation. Justo Rosales M.D. DR: NITZA JOB#: [id number] CC:
[2019-01-29] MEDS: Dyna-Hex 2% Top Sol 2oz TOPIC SCH (21:18)
--- NOTE | 2019-01-29 21:39 | Diagnostic Imaging Report ---
Indication: Reason For Exam: TUBE PLCMT Technique: AP views of the abdomen. Comparison: CT abdomen pelvis dated 05/30/2018 Findings: Partially imaged bowel gas pattern is nonobstructive. Left ureteral stent is noted. Enteric tube terminates below the diaphragm in the stomach. Small left pleural effusion with associated patchy airspace opacities. Pulmonary vascular congestion. IMPRESSION: 1. Enteric tube terminating in the stomach. 2. Small left pleural effusion with associated airspace opacities which may represent compressive atelectasis but pneumonia should be excluded clinically. These findings are concordant with the [facility] preliminary report.
[2019-01-29] MEDS: Versed 50mg/D5W 100ml 100 ML IV PRN (21:54)
[2019-01-29] MEDS ORDERED: Meropenem 1 GM in NS 55 ML IVPB SCH (22:00)
--- NOTE | 2019-01-29 22:27 | NUR ---
NURSE NOTES: Spoke with Khushi at [facility] about date of Rod Cath insertion. Stated it was inserted when patient was a [facility] 01/20/2019.
--- NOTE | 2019-01-29 22:30 | NUR ---
NURSE NOTES: CT head result relayed to Dr Smith. Order received for Heparin 5000 units subcut q12h. Also DC'd order for Cymbalta and Mobic. Abdominal Xray result also obtained and shows proper placement of OGT. Meds per OGT given.
[2019-01-29] MEDS: OLANZapine 2.5mg tab ORAL SCH (22:40)
[2019-01-29] MEDS: TraZODone 50mg tab ORAL SCH (22:40)
--- NOTE | 2019-01-29 23:00 | NUR ---
NURSE NOTES: Pt calm, asleep. Decreased Versed gtt to 5mg/h.
[2019-01-29] MEDS: Albuterol/Ipratropium 3ml neb HHN SCH (23:36)
[2019-01-30] VITALS (48 sets, daily range): BP systolic 105–217; BP diastolic 62–89
[2019-01-30] MEDS ORDERED: Piperacillin/Tazobactam 2.25 GM in D5W 55 ML IVPB SCH ×2
--- NOTE | 2019-01-30 01:00 | NUR ---
NURSE NOTES: Calm; asleep. Oral care and suctioning done. Bilat soft wrist restraints maintained.
[2019-01-30] MEDS: Albuterol/Ipratropium 3ml neb HHN SCH ×6 (02:55→23:12)
--- NOTE | 2019-01-30 03:00 | NUR ---
NURSE NOTES: No distress; sleeping. VSS.
--- NOTE | 2019-01-30 05:00 | NUR ---
NURSE NOTES: AM care done. Skin remains intact. No BM. right EJ IV patent. Remains calm and quiet; asleep. Decreased Midazolam gtt to 4mg/h to RASS-2. Good urine output post Lasix. afebrile
[2019-01-30 06:31] LABS: BASOPHILS % (AUTO) 0.8 % (0.0-2.0); EOSINOPHILS % (AUTO) 2.9 % (0.0-3.0); HEMATOCRIT 32.4 % (37.0-47.0); HEMOGLOBIN 10.7 G/DL (12.0-16.0); LYMPHOCYTES % (AUTO) 16.4 % (20.0-45.0); MEAN CORPUSCULAR VOLUME 97 FL (80-99); NEUTROPHILS % (AUTO) 64.9 % (45.0-75.0); PLATELET COUNT 197 K/UL (150-450); RED BLOOD COUNT 3.32 M/UL (4.20-5.40); RED CELL DISTRIBUTION WIDTH 13.2 % (11.6-14.8); WHITE BLOOD COUNT 13.3 K/UL (4.8-10.8)
[2019-01-30 06:53] LABS: ALANINE AMINOTRANSFERASE 13 U/L (12-78); ALBUMIN 2.9 G/DL (3.4-5.0); ALBUMIN/GLOBULIN RATIO 0.8 (1.0-2.7); ALKALINE PHOSPHATASE 52 U/L (46-116); ANION GAP 10 mmol/L (5-15); BILIRUBIN,TOTAL 0.5 MG/DL (0.2-1.0); BLOOD UREA NITROGEN 61 mg/dL (7-18); CALCIUM 9.2 MG/DL (8.5-10.1); CARBON DIOXIDE 27 MMOL/L (21-32); CHLORIDE 110 MMOL/L (98-107); CHOLESTEROL 152 MG/DL (< 200); CREATININE 4.6 MG/DL (0.55-1.30); HDL CHOLESTEROL 35 MG/DL (40-60); POTASSIUM 4.1 MMOL/L (3.5-5.1); SODIUM 147 MMOL/L (136-145); TRIGLYCERIDES 186 MG/DL (30-150)
--- NOTE | 2019-01-30 07:13 | NUR ---
HAND-OFF: Report given to Ute squires RN.
--- NOTE | 2019-01-30 07:15 | NUR ---
NURSE NOTES: Received pt from GUZMAN Ma. Pt is lightly sedated, meets RASS -2. Running Versed 4mg/min. Orally intubated with ETT 7.5/23cm at left lip line, 16/550/50%/+5, Spo2 100%, RR 16. White thick secretions noted via ETT. Rhonchi heard bilateral b/s. SR to SB on teletypesetter monitor. OGT at 60cm, clamped and NPO maintained. REJ 20G running D51/2NS@40ml/hr and Versed 4mg/min. Abdomen is round, non-distended. Residual 15ml greenish secretions. HOB 35 degrees. left BKA elevated on pillow support. left heel floated on pillow support. Bilateral soft wrist restraints in place for impulsiveness and safety. FC draining straw colored urine to gravity. Bed locked, alarmed and in lowest position.
[2019-01-30 07:18] LABS: CREATINE KINASE 52 U/L (26-308); GAMMA GLUTAMYL TRANSPEPTIDASE 5 U/L (5-85); PHOSPHORUS 5.6 MG/DL (2.5-4.9)
--- NOTE | 2019-01-30 07:41 | NUR ---
NURSE NOTES: Decreased Versed to 3mg/hr, HR 48.
[2019-01-30 07:54] LABS: ASPARTATE AMINO TRANSFERASE 12 U/L (15-37)
--- NOTE | 2019-01-30 07:55 | NUR ---
RESPIRATORY NOTE: received pt orally intubated with ETT 7.5, placed 23cm at the lip. ETT is secured via anchor fast with no redness or skin tears visible around facial/mouth area. pt on current vent settings with no signs of resp distress. ABG to follow and will be resulted. alarms are set appropriately with ambu bag at bedside. will cont to monitor.
[2019-01-30] MEDS: Versed 50mg/D5W 100ml 100 ML IV PRN (08:02)
[2019-01-30] MEDS: Meropenem 500mg/NS 55ml IVPB SCH ×4 (08:17→20:02)
[2019-01-30] MEDS: Zinc Sulfate 220mg cap ORAL SCH (08:18)
[2019-01-30] MEDS: Docusate 250mg cap ORAL SCH (08:19)
[2019-01-30] MEDS: Heparin 5000 units/ml inj SUBQ SCH ×2 (08:20→22:11)
[2019-01-30] MEDS ORDERED: DULoxetine 30mg cap ORAL SCH (09:00)
[2019-01-30] MEDS ORDERED: Ascorbic Acid 500mg tab ORAL SCH (09:00)
--- NOTE | 2019-01-30 09:54 | NUR ---
RD ASSESSMENT & RECOMMENDATIONS SEE CARE ACTIVITY FOR COMPLETE ASSESSMENT DAILY ESTIMATED NEEDS: Needs based on Critical Care, renal; 65.7 kg adj 22-28 kcals/kg 1925-3189 total kcals 1.0-1.5 g protein/kg 66-99 g total protein 25-30 mL/kg 2337-3633 total fluid mLs NUTRITION DIAGNOSIS: Swallowing difficulty r/t respiratory failure AEB pt orally intubated, OGT in place. PO DIET RECOMMENDATIONS: MILK BOTTLER eval post extubation. ENTERAL NUTRITION RECOMMENDATIONS: NEPRO@ 35mL/hr x 24 hrs to provide 840mL,1512kcal, 68g pro, 611mL free H2O - Per POLST no artificial means of nutrition. Should need arise (ie extended period of intubation), rec NEPRO. - Start @15ml/hr, advance as tolerated 10ml/hr q4-6 hrs to goal. - Flush per MD/ HOB over 30 degrees. ADDITIONAL RECOMMENDATIONS: 1) F/up w/ H&P 2) TF as above if medically necessary (pt requested no TF in POLST- F/up) 3) Maintain calibrated bed scale wt. 4) Check lytes
[2019-01-30] MEDS ORDERED: D5 1/2NS 1000ml IV ONE (09:55)
[2019-01-30] MEDS ORDERED: Tubing IV Secondary IV ONE (09:55)
[2019-01-30] MEDS ORDERED: NS 275ml ONE (09:55)
--- NOTE | 2019-01-30 10:43 | NUR ---
NURSE NOTES: Turned and repositioned. Oral care done. CO2 monitoring not working and on back order. In place per COPD protocol.
--- NOTE | 2019-01-30 11:27 | NUR ---
NURSE NOTES: BC=gram pos cocci clusters x1 reported by Lorie from [employer]. Notified ID , received orders for Vanco dose by pharmacy. Read back given and verified.
[2019-01-30] MEDS ORDERED: Vancomycin 1.5gm/NS Premix IVPB ONE (13:00)
--- NOTE | 2019-01-30 13:20 | NUR ---
NURSE NOTES: Turned and repositioned. Oral care done. Kept dry and clean. No signs of distress noted. Patient is lightly sedated, wakes up upon voice and touch stimuli. SB on cardiac cath rn; HR 53. Versed@1mg/min.
--- NOTE | 2019-01-30 14:53 | NUR ---
RESPIRATORY NOTE: EtCO2 attached, monitor/connection not working. free standing pulse ox machine unavailable. RN aware and documented
--- NOTE | 2019-01-30 15:17 | Consultation ---
Consult Note Consult Note Asked to eval at the request of Dr Freeman for renal failure intubated in ICU ER Apparently the patient presents with congestion. They had her on 2 L at the [facility] after giving her breathing treatments. EMS increased that to 3 L because her O2 saturation was 92 in the field. They stated that she usually has a Whitman Coma Scale that is normal however she is unresponsive at this time. Unable to ascertain if given any medication prior to transfer. Aside from old medical record there is no other history available at this time. Apparently h/o seizures - only meds on Recon are clonazepam and Gabapentin. No seizure activity noted. Patient was recently discharged from the hospital. Discharge diagnoses: ESBL UTI from half-way Leukocytosis likely related to infection Left kidney mass Left hydronephrosis Anxiety Dehydration Seizure disorder Schizophrenia Hypertension Obesity Allergies: Grits (Unverified Allergy, Unknown, 07/06/17) [place] (Unverified Allergy, Unknown, 07/06/17) Hx Cardiac Problems: Yes Hx Hypertension: Yes Hx Gastrointestinal Problems: Yes - NAUSEA/ VOMTING Hx Neurological Problems: Yes Hx Seizures: Yes Hx Weakness: Yes - MUSCULAR examined data reviewed . Assessment/Plan Acute on Chronic Renal Failure ? kidney mass Right hydronephrosis Ventilator Dependent Respiratory failure Left lower lobe pulmonary infiltrate Urinary tract infection ESBL UTI from half-way Dehydration Seizure disorder on Clonazepam and Gabapentin Schizophrenia Hypertension Obesity Urology eval monitor renal parameters avoid nephrotoxics per consultants Derrell Hatch MD Jan 30, 2019 15:17
--- NOTE | 2019-01-30 15:25 | Pulmonolgy Critical Care Note ---
Critical Care - Asmt/Plan Assessment/Plan: Pulmonary Critical Care Progress Noted HPI The patient is a 58 year old woman admitted with worsening shortness of breath, respiratory failure requiring intubation, pneumonia. Altered mental status prior to intubation in the ED. Noted to have evidence of UTI in addition to pneumonia LLL Per chart review h/o Seizure disorder, Left Kidney Mass, Hydronephrosis, Hypertension, HHD, Nausea and Vomiting Patient was recently discharged from the hospital. Past Medical History: [facility] Leukocytosis likely related to infection Left kidney mass Left hydronephrosis Anxiety Dehydration Seizure disorder on Clonazepam and Gabapentin Weakness Schizophrenia Hypertension Obesity PSH: Left BKA Allergies: Grits (Unverified Allergy, Unknown, 07/06/17) [place] (Unverified Allergy, Unknown, 07/06/17) stable overnight Physical Exam Vital Signs Noted General Appearance: Sedated on the Ventilator Head: normocephalic, atraumatic, ENT: dry mucus membranes, ETT Neck: No LN Respiratory: Bilateral rhonchi Cardiovascular: regular rate, rhythm, HS1, HS2, no edema Gastrointestinal: decreased bowel sounds, overweight, abrasions abdominal wall Musculoskeletal: moving all limbs, BKA L Neurologic: Sedated, PERRL Psychiatric: other - Unresponsive Skin: warm/dry, Impression: Ventilator Dependent Respiratory failure Left lower lobe pulmonary infiltrate Urinary tract infection [facility] UTI from [facility] Acute on Chronic Renal Failure Left kidney mass Left hydronephrosis Anxiety Dehydration Seizure disorder on Clonazepam and Gabapentin Weakness Schizophrenia Hypertension Obesity Plan ACVC Wean FIO2 Sedation PRN Check ABG Antibiotics per ID Aspiration/Seizure precautions HHN PPX [employer] medications EKG: Rate: normal Rhythm: NSR ST Segments: no acute changes Chest X-Ray: no effusion, no pneumothorax, other - ET well positioned, possible L sided infiltrate Critical Care - Objective Last 24 Hour Vital Signs Date Time Temp Pulse Resp B/P (MAP) Pulse Ox O2 Delivery O2 Flow Rate FiO2 01/30/19 14:50 54 16 100 Mechanical Ventilator 45 58 16 45 01/30/19 14:30 53 16 134/68 100 45 01/30/19 14:00 16 Mechanical Ventilator 45 01/30/19 14:00 53 16 153/76 100 45 01/30/19 13:30 56 16 193/84 100 45 01/30/19 13:02 64 16 45 01/30/19 13:00 16 Mechanical Ventilator 45 01/30/19 13:00 52 16 129/68 100 45 01/30/19 12:30 54 16 126/69 100 45 01/30/19 12:00 Mechanical Ventilator 01/30/19 12:00 16 Mechanical Ventilator 45 01/30/19 12:00 99.1 54 16 124/68 100 45 01/30/19 12:00 45 01/30/19 12:00 53 01/30/19 11:30 53 16 153/73 100 45 01/30/19 11:00 52 16 136/70 100 45 01/30/19 11:00 15 Mechanical Ventilator 45 01/30/19 10:43 52 16 100 Mechanical Ventilator 45 52 16 45 01/30/19 10:30 52 16 129/67 100 50 01/30/19 10:00 16 Mechanical Ventilator 45 01/30/19 10:00 51 16 142/77 100 50 01/30/19 09:34 55 16 174/84 100 50 01/30/19 09:14 65 16 50 01/30/19 09:00 55 16 130/70 100 50 01/30/19 08:37 16 Mechanical Ventilator 50 01/30/19 08:32 98.1 01/30/19 08:30 52 16 136/74 100 50 01/30/19 08:19 116/68 01/30/19 08:02 16 Mechanical Ventilator 15.0 50 01/30/19 08:00 50 01/30/19 08:00 52 16 116/68 100 50 01/30/19 08:00 Mechanical Ventilator 01/30/19 08:00 52 01/30/19 07:48 60 16 99 Mechanical Ventilator 50 51 16 50 01/30/19 07:30 51 16 150/74 100 50 01/30/19 07:00 16 Mechanical Ventilator 50 01/30/19 07:00 98.1 60 16 158/88 100 50 01/30/19 06:30 51 16 132/72 100 50 01/30/19 06:00 16 Mechanical Ventilator 50 01/30/19 06:00 51 16 142/75 99 Mechanical Ventilator 50 01/30/19 05:30 50 16 156/75 100 Mechanical Ventilator 50 01/30/19 05:16 52 16 Mechanical Ventilator 50 01/30/19 05:00 52 16 149/77 99 Mechanical Ventilator 50 01/30/19 05:00 16 Mechanical Ventilator 50 01/30/19 04:30 52 16 149/75 99 Mechanical Ventilator 50 01/30/19 04:00 Mechanical Ventilator 01/30/19 04:00 50 01/30/19 04:00 50 01/30/19 04:00 16 Mechanical Ventilator 50 01/30/19 04:00 97.3 53 16 163/75 99 Mechanical Ventilator 50 01/30/19 03:30 52 16 192/82 98 Mechanical Ventilator 50 01/30/19 03:00 17 Mechanical Ventilator 50 01/30/19 03:00 62 16 211/89 100 Mechanical Ventilator 50 01/30/19 02:53 50 16 99 Mechanical Ventilator 50 50 16 50 01/30/19 02:30 49 16 162/80 100 Mechanical Ventilator 50 01/30/19 02:00 49 16 158/80 100 Mechanical Ventilator 50 01/30/19 02:00 18 Mechanical Ventilator 50 01/30/19 01:30 48 16 147/75 100 Mechanical Ventilator 50 01/30/19 01:09 50 16 Mechanical Ventilator 50 01/30/19 01:00 16 Mechanical Ventilator 50 01/30/19 01:00 48 16 138/70 99 Mechanical Ventilator 50 01/30/19 00:30 51 16 130/73 99 Mechanical Ventilator 50 01/30/19 00:00 51 01/30/19 00:00 50 01/30/19 00:00 98.3 54 16 183/85 99 Mechanical Ventilator 50 01/30/19 00:00 16 Mechanical Ventilator 50 01/30/19 00:00 Mechanical Ventilator 01/29/19 23:30 52 16 131/71 99 Mechanical Ventilator 50 01/29/19 23:25 52 16 99 Mechanical Ventilator 50 52 16 50 01/29/19 23:00 50 16 136/79 99 Mechanical Ventilator 50 01/29/19 23:00 16 Mechanical Ventilator 50 01/29/19 22:30 50 16 155/80 100 Mechanical Ventilator 40 01/29/19 22:00 53 19 191/167 100 Mechanical Ventilator 40 01/29/19 21:54 16 Mechanical Ventilator 50 01/29/19 21:30 51 16 143/75 99 Mechanical Ventilator 40 01/29/19 21:24 51 16 40 01/29/19 21:00 52 24 183/89 98 Mechanical Ventilator 01/29/19 21:00 16 Mechanical Ventilator 50 01/29/19 20:49 40 01/29/19 20:45 52 19 171/81 98 Mechanical Ventilator 40 01/29/19 20:30 56 19 171/87 98 Mechanical Ventilator 40 01/29/19 20:25 55 16 162/100 100 Mechanical Ventilator 40 01/29/19 20:00 18 Mechanical Ventilator 40 01/29/19 20:00 56 01/29/19 19:45 53 16 99 01/29/19 19:45 Mechanical Ventilator 01/29/19 19:30 53 16 99 01/29/19 19:15 53 16 168/85 99 01/29/19 19:00 16 Mechanical Ventilator 40 01/29/19 19:00 97.7 55 16 195/82 99 Mechanical Ventilator 40 01/29/19 18:55 55 16 40 01/29/19 17:30 86 16 40 01/29/19 16:57 98.6 62 16 163/85 97 Mechanical Ventilator 40 62 01/29/19 16:08 20 Mechanical Ventilator 40 Micro: Microbiology Date/Time Source Procedure Growth Status 01/29/19 14:30 Blood Blood Culture - Preliminary Resulted 01/29/19 14:50 Nasal Nares - Final Complete 01/29/19 14:50 Nasal Nares - Final Complete 01/29/19 14:55 Urine,Clean Catch Urine Culture - Preliminary NO GROWTH Resulted 01/29/19 17:40 Rectum Received Accucheck: 83 Critical Care - Subjective ROS Limited/Unobtainable: No FI02: 45 Vent Support Breath Rate: 16 Vent Support Mode: AC Vent Tidal Volume: 550 Sputum Amount: Scant PEEP: 5.0 PIP: 21 I&O: Intake and Output 01/29/19 01/30/19 19:00 07:00 Intake Total 1012 ml 663 ml Output Total 575 ml 1715 ml Balance 437 ml -1052 ml Intake Oral 0 ml IV Total 1012 ml 603 ml Other 60 ml Output Urine Total 575 ml 1715 ml ET-Tube: 7.5 ET Position: 23 Gabino Smith MD Jan 30, 2019 15:25
--- NOTE | 2019-01-30 15:44 | NUR ---
NURSE NOTES: No signs of distress noted. Patient is still in same condition. Vanco started per Dr. Solis. Patient remains afebrile.
--- NOTE | 2019-01-30 16:38 | Consultation ---
History of Present Illness General Chief Complaint: Generalized Weakness Present Illness Allergies: Coded Allergies: Grits (Unverified Allergy, Unknown, 07/06/17) [place] (Unverified Allergy, Unknown, 07/06/17) Medication History Scheduled Amino Acids/Protein Hydrolys (Pro-Stat Liquid), 30 ML ORAL DAILY, (Reported) Ascorbic Acid* (Vitamin C*), 500 MG ORAL DAILY, (Reported) Aspirin* (Aspirin*), 325 MG ORAL DAILY, (Reported) Baclofen* (Baclofen*), 10 MG ORAL THREE TIMES A DAY, (Reported) Bisacodyl (Dulcolax), 10 MG RC DAILY, (Reported) Calcium Carbonate/Vitamin D3 (Calcium + Vitamin D Tablet), 1 EACH PO DAILY, ( Reported) Clonazepam* (Klonopin*), 1 MG ORAL Q8HR, (Reported) Clonazepam* (Klonopin*), 1 MG ORAL Q8HR, (Reported) Cranberry Fruit Concentrate (Cranberry), 450 MG PO BID, (Reported) Docusate Sodium* (Docusate Sodium*), 250 MG ORAL DAILY, (Reported) Duloxetine Hcl* (Cymbalta*), 60 MG ORAL DAILY, (Reported) Gabapentin* (Gabapentin*), 200 MG ORAL THREE TIMES A DAY, (Reported) Levofloxacin* (Levaquin*), 750 MG ORAL ONCE, (Reported) Melatonin/Pyridoxine HCl (B6) (Melatonin 3 mg Tablet), 2 EACH PO QHS, (Reported) Meloxicam* (Meloxicam*), 7.5 MG PO DAILY, (Reported) Multivitamins* (Multivitamins*), 1 TAB ORAL DAILY, (Reported) Olanzapine* (Zyprexa*), 2.5 MG ORAL BEDTIME, (Reported) Quetiapine Fumarate* (Seroquel*), 200 MG ORAL BID, (Reported) Trazodone* (Trazodone*), 50 MG ORAL BEDTIME, (Reported) Trazodone* (Trazodone*), 50 MG ORAL BEDTIME, (Reported) Trimethoprim/Sulfamethoxazole 160/800* (Bactrim Ds Tablet*), 1 TAB ORAL TWICE A DAY, (Reported) Zinc Sulfate (Zinc Sulfate*), 220 MG ORAL DAILY, (Reported) Scheduled PRN Acetaminophen* (Tylenol Extra Strength*), 1,000 MG ORAL Q4HR PRN for Mild Pain/ Temp > 100.5, (Reported) Acetaminophen* (Acetaminophen 325MG Tablet*), 325 MG ORAL Q4H PRN for For Pain, (Reported) Acetaminophen* (Acetaminophen 325MG Tablet*), 325 MG ORAL Q4H PRN for Mild Pain/ Temp > 100.5, (Reported) Bisacodyl (Dulcolax), 10 MG RC for Constipation, (Reported) Diphenhydramine Hcl* (Benadryl*), 25 MG ORAL Q6H PRN for Itching, (Reported) Magnesium Hydroxide (Milk of Magnesia), 30 ML ORAL QHS PRN for Constipation, ( Reported) Magnesium Hydroxide* (Milk Of Magnesia*), 30 ML ORAL QHS PRN for Constipation, ( Reported) Na Phos,M-B/Na Phos,Di-Ba* (Fleet Enema*), 133 ML RECTAL DAILY PRN for Constipation, (Reported) Na Phos,M-B/Na Phos,Di-Ba* (Fleet Enema*), 133 ML RECTAL DAILY PRN for Constipation, (Reported) Oxycodone Hcl* (Oxycodone Hcl*), 5 MG ORAL Q6H PRN for For Pain, (Reported) Tramadol Hcl* (Ultram*), 50 MG ORAL Q6H PRN for For Pain, (Reported) Discontinued Medications Baclofen* (Baclofen*), 10 MG ORAL BID, (Reported) Discontinued Reason: Medication dose changed Patient History Healthcare decision maker Resuscitation status Full Code Advanced Directive on File Physical Exam Last 24 Hour Vital Signs Date Time Temp Pulse Resp B/P (MAP) Pulse Ox O2 Delivery O2 Flow Rate FiO2 01/30/19 15:30 53 16 142/75 100 45 01/30/19 15:00 52 16 166/76 100 45 01/30/19 15:00 16 Mechanical Ventilator 45 01/30/19 14:50 54 16 100 Mechanical Ventilator 45 58 16 45 01/30/19 14:30 53 16 134/68 100 45 01/30/19 14:00 16 Mechanical Ventilator 45 01/30/19 14:00 53 16 153/76 100 45 01/30/19 13:30 56 16 193/84 100 45 01/30/19 13:02 64 16 45 01/30/19 13:00 16 Mechanical Ventilator 45 01/30/19 13:00 52 16 129/68 100 45 01/30/19 12:30 54 16 126/69 100 45 01/30/19 12:00 Mechanical Ventilator 01/30/19 12:00 16 Mechanical Ventilator 45 01/30/19 12:00 99.1 54 16 124/68 100 45 01/30/19 12:00 45 01/30/19 12:00 53 01/30/19 11:30 53 16 153/73 100 45 01/30/19 11:00 52 16 136/70 100 45 01/30/19 11:00 15 Mechanical Ventilator 45 01/30/19 10:43 52 16 100 Mechanical Ventilator 45 52 16 45 01/30/19 10:30 52 16 129/67 100 50 01/30/19 10:00 16 Mechanical Ventilator 45 01/30/19 10:00 51 16 142/77 100 50 01/30/19 09:34 55 16 174/84 100 50 01/30/19 09:14 65 16 50 01/30/19 09:00 55 16 130/70 100 50 01/30/19 08:37 16 Mechanical Ventilator 50 01/30/19 08:32 98.1 01/30/19 08:30 52 16 136/74 100 50 01/30/19 08:19 116/68 01/30/19 08:02 16 Mechanical Ventilator 15.0 50 01/30/19 08:00 50 01/30/19 08:00 52 16 116/68 100 50 01/30/19 08:00 Mechanical Ventilator 01/30/19 08:00 52 01/30/19 07:48 60 16 99 Mechanical Ventilator 50 51 16 50 01/30/19 07:30 51 16 150/74 100 50 01/30/19 07:00 16 Mechanical Ventilator 50 01/30/19 07:00 98.1 60 16 158/88 100 50 01/30/19 06:30 51 16 132/72 100 50 01/30/19 06:00 16 Mechanical Ventilator 50 01/30/19 06:00 51 16 142/75 99 Mechanical Ventilator 50 01/30/19 05:30 50 16 156/75 100 Mechanical Ventilator 50 01/30/19 05:16 52 16 Mechanical Ventilator 50 01/30/19 05:00 52 16 149/77 99 Mechanical Ventilator 50 01/30/19 05:00 16 Mechanical Ventilator 50 01/30/19 04:30 52 16 149/75 99 Mechanical Ventilator 50 01/30/19 04:00 Mechanical Ventilator 01/30/19 04:00 50 01/30/19 04:00 50 01/30/19 04:00 16 Mechanical Ventilator 50 01/30/19 04:00 97.3 53 16 163/75 99 Mechanical Ventilator 50 01/30/19 03:30 52 16 192/82 98 Mechanical Ventilator 50 01/30/19 03:00 17 Mechanical Ventilator 50 01/30/19 03:00 62 16 211/89 100 Mechanical Ventilator 50 01/30/19 02:53 50 16 99 Mechanical Ventilator 50 50 16 50 01/30/19 02:30 49 16 162/80 100 Mechanical Ventilator 50 01/30/19 02:00 49 16 158/80 100 Mechanical Ventilator 50 01/30/19 02:00 18 Mechanical Ventilator 50 01/30/19 01:30 48 16 147/75 100 Mechanical Ventilator 50 01/30/19 01:09 50 16 Mechanical Ventilator 50 01/30/19 01:00 16 Mechanical Ventilator 50 01/30/19 01:00 48 16 138/70 99 Mechanical Ventilator 50 01/30/19 00:30 51 16 130/73 99 Mechanical Ventilator 50 01/30/19 00:00 51 01/30/19 00:00 50 01/30/19 00:00 98.3 54 16 183/85 99 Mechanical Ventilator 50 01/30/19 00:00 16 Mechanical Ventilator 50 01/30/19 00:00 Mechanical Ventilator 01/29/19 23:30 52 16 131/71 99 Mechanical Ventilator 50 01/29/19 23:25 52 16 99 Mechanical Ventilator 50 52 16 50 01/29/19 23:00 50 16 136/79 99 Mechanical Ventilator 50 01/29/19 23:00 16 Mechanical Ventilator 50 01/29/19 22:30 50 16 155/80 100 Mechanical Ventilator 40 01/29/19 22:00 53 19 191/167 100 Mechanical Ventilator 40 01/29/19 21:54 16 Mechanical Ventilator 50 01/29/19 21:30 51 16 143/75 99 Mechanical Ventilator 40 01/29/19 21:24 51 16 40 01/29/19 21:00 52 24 183/89 98 Mechanical Ventilator 01/29/19 21:00 16 Mechanical Ventilator 50 01/29/19 20:49 40 01/29/19 20:45 52 19 171/81 98 Mechanical Ventilator 40 01/29/19 20:30 56 19 171/87 98 Mechanical Ventilator 40 01/29/19 20:25 55 16 162/100 100 Mechanical Ventilator 40 01/29/19 20:00 18 Mechanical Ventilator 40 01/29/19 20:00 56 01/29/19 19:45 53 16 99 01/29/19 19:45 Mechanical Ventilator 01/29/19 19:30 53 16 99 01/29/19 19:15 53 16 168/85 99 01/29/19 19:00 16 Mechanical Ventilator 40 01/29/19 19:00 97.7 55 16 195/82 99 Mechanical Ventilator 40 01/29/19 18:55 55 16 40 01/29/19 17:30 86 16 40 01/29/19 16:57 98.6 62 16 163/85 97 Mechanical Ventilator 40 62 Intake and Output 01/29/19 01/30/19 19:00 07:00 Intake Total 1012 ml 663 ml Output Total 575 ml 1715 ml Balance 437 ml -1052 ml Intake Oral 0 ml IV Total 1012 ml 603 ml Other 60 ml Output Urine Total 575 ml 1715 ml Laboratory Tests Test 01/29/19 21:00 01/30/19 05:45 Arterial Blood pH 7.425 (7.350-7.450) Arterial Blood Partial Pressure CO2 36.2 mmHg (35.0-45.0) Arterial Blood Partial Pressure O2 74.5 mmHg (75.0-100.0) L Arterial Blood HCO3 23.2 mmol/L (22.0-26.0) Arterial Blood Oxygen Saturation 94.5 % (95-100) L Arterial Blood Base Excess -0.8 (-2-2) Miguel Angel Test Positive White Blood Count 13.3 K/UL (4.8-10.8) H Red Blood Count 3.32 M/UL (4.20-5.40) L Hemoglobin 10.7 G/DL (12.0-16.0) L Hematocrit 32.4 % (37.0-47.0) L Mean Corpuscular Volume 97 FL (80-99) Mean Corpuscular Hemoglobin 32.1 PG (27.0-31.0) H Mean Corpuscular Hemoglobin Concent 32.9 G/DL (32.0-36.0) Red Cell Distribution Width 13.2 % (11.6-14.8) Platelet Count 197 K/UL (150-450) Mean Platelet Volume 6.9 FL (6.5-10.1) Neutrophils (%) (Auto) 64.9 % (45.0-75.0) Lymphocytes (%) (Auto) 16.4 % (20.0-45.0) L Monocytes (%) (Auto) 15.0 % (1.0-10.0) H Eosinophils (%) (Auto) 2.9 % (0.0-3.0) Basophils (%) (Auto) 0.8 % (0.0-2.0) Sodium Level 147 MMOL/L (136-145) H Potassium Level 4.1 MMOL/L (3.5-5.1) Chloride Level 110 MMOL/L (98-107) H Carbon Dioxide Level 27 MMOL/L (21-32) Anion Gap 10 mmol/L (5-15) Blood Urea Nitrogen 61 mg/dL (7-18) H Creatinine 4.6 MG/DL (0.55-1.30) H Estimat Glomerular Filtration Rate 9.8 mL/min (>60) Glucose Level 118 MG/DL (74-106) H Hemoglobin A1c 5.2 % (4.3-6.0) Lactic Acid Level 0.60 mmol/L (0.4-2.0) Uric Acid 8.9 MG/DL (2.6-7.2) H Calcium Level 9.2 MG/DL (8.5-10.1) Phosphorus Level 5.6 MG/DL (2.5-4.9) H Magnesium Level 2.5 MG/DL (1.8-2.4) H Total Bilirubin 0.5 MG/DL (0.2-1.0) Gamma Glutamyl Transpeptidase 5 U/L (5-85) Aspartate Amino Transf (AST/SGOT) 12 U/L (15-37) L Alanine Aminotransferase (ALT/SGPT) 13 U/L (12-78) Alkaline Phosphatase 52 U/L (46-116) Total Creatine Kinase 52 U/L (26-308) Troponin I 0.000 ng/mL (0.000-0.056) C-Reactive Protein, Quantitative 6.2 mg/dL (0.00-0.90) H Pro-B-Type Natriuretic Peptide 1450 pg/mL (0-125) H Total Protein 6.5 G/DL (6.4-8.2) Albumin 2.9 G/DL (3.4-5.0) L Globulin 3.6 g/dL Albumin/Globulin Ratio 0.8 (1.0-2.7) L Triglycerides Level 186 MG/DL (30-150) H Cholesterol Level 152 MG/DL (< 200) LDL Cholesterol 75 mg/dL (<100) HDL Cholesterol 35 MG/DL (40-60) L Cholesterol/HDL Ratio 4.3 (3.3-4.4) Thyroid Stimulating Hormone (TSH) 0.548 uiU/mL (0.358-3.740) Microbiology Date/Time Source Procedure Growth Status 01/29/19 17:40 Rectum Received Height (Feet): 5 Height (Inches): 4.00 Weight (Pounds): 224 Medications Current Medications Medications (Trade) Dose Ordered Sig/William Route PRN Reason Start Time Stop Time Status Last Admin Dose Admin Acetaminophen (Tylenol) 650 mg Q6H PRN ORAL Fever (temp>100.5F) 01/29/19 18:30 02/28/19 18:29 Albuterol/ Ipratropium (Albuterol/ Ipratropium) 3 ml Q4HRT HHN 01/29/19 23:00 02/03/19 22:59 01/30/19 14:50 Ascorbic Acid (Vitamin C) 500 mg DAILY ORAL 01/30/19 09:00 03/01/19 08:59 01/30/19 08:18 Baclofen (Lioresal) 5 mg Q12HR ORAL 01/30/19 09:00 03/01/19 08:59 01/30/19 08:19 Bisacodyl (Dulcolax) 10 mg DAILYPRN PRN RECTAL Constipation 01/29/19 20:00 02/28/19 19:59 Chlorhexidine Gluconate (Genevieve-Hex 2%) 1 applic DAILY@2000 TOPIC 01/29/19 20:00 02/28/19 19:59 01/29/19 21:18 Clonazepam (KlonoPIN) 1 mg Q8HR ORAL 01/29/19 22:00 02/05/19 21:59 01/30/19 13:20 Clonidine HCl (Catapres Tab) 0.1 mg BID NG 01/30/19 09:00 03/01/19 08:59 01/30/19 08:19 Dextrose (Dextrose 50%) 25 ml Q30M PRN IV Hypoglycemia 01/29/19 18:30 02/28/19 18:29 Dextrose (Dextrose 50%) 50 ml Q30M PRN IV Hypoglycemia 01/29/19 18:30 02/28/19 18:29 Dextrose/Sodium Chloride 1,000 ml @ 40 mls/hr Q24H IV 01/29/19 18:50 02/28/19 18:49 01/29/19 20:16 Docusate Sodium (Colace) 250 mg DAILY ORAL 01/30/19 09:00 03/01/19 08:59 01/30/19 08:19 Furosemide (Lasix) 80 mg EVERY 12 HOURS IV 01/29/19 21:00 02/28/19 20:59 01/30/19 08:18 Gabapentin (Neurontin) 200 mg THREE TIMES A DAY ORAL 01/30/19 09:00 03/01/19 08:59 01/30/19 13:21 Heparin Sodium (Porcine) (Heparin 5000 units/ml) 5,000 units EVERY 12 HOURS SUBQ 01/30/19 09:00 03/01/19 08:59 01/30/19 08:20 Heparin Sodium/ Sodium Chloride (Heparin 1000 units/500ml Premix) 1,000 unit ONCE PRN IV PICC PLACEMENT 01/29/19 19:15 01/31/19 23:59 Hydralazine HCl (Apresoline) 10 mg Q6H PRN IV For High Blood Pressure 01/29/19 18:30 02/28/19 18:29 Hydromorphone HCl (Dilaudid) 0.5 mg Q2H PRN IVP For Pain 01/29/19 18:30 02/05/19 18:29 01/29/19 20:15 Lidocaine HCl (Xylocaine 1% 30ml) 30 ml ONCE PRN INJ PICC PLACEMENT 01/29/19 19:15 01/31/19 23:59 Meropenem 500 mg/ Sodium Chloride 55 ml @ 110 mls/hr Q12HR@0800,2000 IVPB 01/29/19 20:00 11/7/19 19:59 01/30/19 08:17 Midazolam HCl 100 ml @ 0 mls/hr Q24H PRN IV Restlessness 01/29/19 19:00 02/05/19 18:59 01/30/19 08:02 Multivitamins (Multivitamins) 1 tab DAILY ORAL 01/30/19 09:00 03/01/19 08:59 01/30/19 08:19 Olanzapine (ZyPREXA) 2.5 mg BEDTIME ORAL 01/29/19 21:00 02/28/19 20:59 01/29/19 22:40 Pantoprazole (Protonix) 40 mg DAILY ORAL 01/30/19 09:00 03/01/19 08:59 01/30/19 08:18 Trazodone HCl (Desyrel) 50 mg BEDTIME ORAL 01/29/19 21:00 02/28/19 20:59 01/29/19 22:40 Vancomycin HCl (Vanco rx to dose) 1 ea DAILY PRN MISC Per rx protocol 01/30/19 11:30 03/01/19 11:29 Zinc Sulfate (Zinc Sulfate) 220 mg DAILY ORAL 01/30/19 09:00 03/01/19 08:59 01/30/19 08:18 Assessment/Plan Assessment/Plan: Hematology Consultation Date patient seen: Jan 30 2019 Reason for Hospitalization: AMS, intubated Referring physician: JORGE LUIS MAGDALENO Reason for Consultation: Leukocytosis, renal mass, Anemia ID [id number] old female well known to me at this time presents with complaints of ongoing ams, unresponsive and was intubated in er, transferred to the icu, currently altered, labs were noted, more anemic than before, prior admissions were reviewed as well as recs of consultants, imaging noted, meds reviewed and exam Home Medications Duloxetine Hcl* (CYMBALTA*) 60 Mg Capsule.dr, 60 MG ORAL DAILY, CAP 05/30/18 Multivitamins* (MULTIVITAMINS*) 1 Each Tablet, 1 TAB ORAL DAILY, TAB 0 Refills 05/30/18 Trazodone* (TRAZODONE*) 150 Mg Tablet, 50 MG ORAL BEDTIME, TAB 05/30/18 Trazodone* (TRAZODONE*) 150 Mg Tablet, 50 MG ORAL BEDTIME, TAB 05/30/18 Clonazepam* (KLONOPIN*) 1 Mg Tablet, 1 MG ORAL Q6H, #15 TAB 0 Refills 05/30/18 Gabapentin* (GABAPENTIN*) 100 Mg Capsule, 200 MG ORAL THREE TIMES A DAY, CAP 05/30/18 Levofloxacin* (LEVAQUIN*) 750 Mg Tablet, 750 MG ORAL ONCE for 1 Day, TAB give levaquin on 07/11/17 07/10/17 Olanzapine* (ZYPREXA*) 5 Mg Tablet, 5 MG ORAL BID, TAB 07/10/17 Ascorbic Acid* (VITAMIN C*) 500 Mg Tablet, 500 MG ORAL DAILY, #30 TAB 0 Refills 07/07/17 Acetaminophen* (TYLENOL EXTRA STRENGTH*) 500 Mg Tablet, 1000 MG ORAL Q4HR PRN for Mild Pain/Temp > 100.5, TAB 0 Refills 07/07/17 Amino Acids/Protein Hydrolys (PRO-STAT LIQUID) 30 Ml Liquid.pkt, 30 ML ORAL DAILY, ML 07/07/17 Magnesium Hydroxide* (MILK OF MAGNESIA*) 400 Mg/5 Ml Oral.susp, 30 ML ORAL DAILY PRN for Constipation, ML 07/07/17 Na Phos,M-B/Na Phos,Di-Ba* (FLEET ENEMA*) 133 Ml Enema, 133 ML RECTAL DAILY PRN for Constipation, ML 0 Refills 07/07/17 Bisacodyl (DULCOLAX) 10 Mg Supp.rect, 10 MG RC PRN for Constipation, SUPP 07/07/17 Trimethoprim/Sulfamethoxazole 160/800* (BACTRIM DS TABLET*) 1 Each Tablet, 1 TAB ORAL TWICE A DAY for 14 Days, TAB 06/10/17 Aspirin* (ASPIRIN*) 325 Mg Tablet, 325 MG ORAL DAILY, TAB 05/29/17 Zinc Sulfate (ZINC SULFATE*) 220 Mg Capsule, 220 MG ORAL DAILY, CAP 0 Refills 05/29/17 Tramadol Hcl* (ULTRAM*) 50 Mg Tablet, 50 MG ORAL Q6H PRN for For Pain, #30 TAB 0 Refills 05/29/17 Oxycodone Hcl* (OXYCODONE HCL*) 5 Mg Capsule, 5 MG ORAL Q6H PRN for For Pain, # 30 CAP 0 Refills 05/29/17 Docusate Sodium* (DOCUSATE SODIUM*) 100 Mg Capsule, 100 MG ORAL TWICE A DAY, CAP 05/29/17 Diphenhydramine Hcl* (BENADRYL*) 25 Mg Capsule, 25 MG ORAL Q6H PRN for Itching, CAP 05/29/17 Clonazepam* (KLONOPIN*) 1 Mg Tablet, 1 MG ORAL Q6H, #15 TAB 0 Refills 05/29/17 Baclofen* (BACLOFEN*) 10 Mg Tablet, 10 MG ORAL BID, TAB 05/29/17 Calcium Carbonate/Vitamin D3 (CALCIUM + VITAMIN D TABLET) 1 Each Tablet, 1 EACH PO DAILY, TAB 05/29/17 Med list reviewed/reconciled: Yes Allergies: Coded Allergies: Grits (Unverified Allergy, Unknown, 07/06/17) [place] (Unverified Allergy, Unknown, 07/06/17) Patient History History Provided By: Patient, Medical Record PMH Narrative Past Medical History: see triage record Pertinent Family History: none Reviewed Nursing Documentation: PMH: Agreed; PSxH: Agreed Nursing Documentation-PMH Hx Hypertension: Yes - edema, osteomyelitis, HTN Hx Cancer: No Hx Gastrointestinal Problems: No Hx Seizures: Yes Social History: Denies: smoking, alcohol use, drug use, other ROS All Other Systems: negative except mentioned in HPI PE Vital Signs Gen: unresponsive Pulm: intubated on vent CV: RRR, no mgr Abd: soft, nt, d Ext: no cce Labs: noted Imaging: reviewed Assessment/Plan: # Anemia of chronic disease (or of iron deficiency) due to underlying chronic medical issues, multifactorial --> Anemia workup has been ordered, rule out gi bleed --> No evidence of hemolysis is noted, peripheral smear has been reviewed. --> Hgb goal >7. Transfuse prn. --> Epogen or iron at this time is not particularly indicated --> Medications have been reviewed --> low threshold for gi evaluation in case has occult + --> hgb trend 11.7-->10.7 # Leukocytosis is likely related to infection, reactive process, on abx at this time, potentially had acute pyelonephritis on presentation, likely esbl uti --> have reviewed peripheral smear and bandemia/neutrophilia noted --> continue antibiotics if they have been started by ID team --> monitor for resolution --> trend as needed # Left kidney mass -- 5 cm low-attenuation lesion demonstrating slightly higher than normal fluid attenuation coming off of the upper pole left kidney --> likely represents a complex possibly proteinaceous cyst, but necrotic solid mass also possible. # Dehydration --> ivf have been started --> anti-nausea meds started # S/P BKA (below knee amputation) unilateral --> left leg s/p amputation # Anxiety --> as per psych # Left hydronephrosis --> per uro # Resp failure s/p intubation # Dvt ppx heparin sq The timing of this note does not necessarily reflect the time of the patient was seen. Greatly appreciate consultation! Colby Canada MD Jan 30, 2019 16:38
--- NOTE | 2019-01-30 17:20 | NUR ---
NURSE NOTES: Turned and repositioned. Kept dry and clean. Patient remains lightly sedated to meet RASS -2
--- NOTE | 2019-01-30 18:14 | Cardiac Electrophysiology PN ---
Assessment/Plan Assessment/Plan 1. Resp failure on the vent. EF 60%. On Abx and Vent Decrease Lasix to 40 iv bid 2. HTN On Lasix and clonidine 3. Acute renal failure 4. S/P Left BKA DW RN Subjective Subjective In ICU on the vent off the pressors Objective Last 24 Hour Vital Signs Date Time Temp Pulse Resp B/P (MAP) Pulse Ox O2 Delivery O2 Flow Rate FiO2 01/30/19 17:42 142/75 01/30/19 17:30 53 16 142/75 100 45 01/30/19 17:00 53 16 142/75 100 45 01/30/19 16:42 66 16 45 01/30/19 16:30 53 16 142/75 100 45 01/30/19 16:00 99.5 53 16 142/75 100 45 01/30/19 16:00 Mechanical Ventilator 01/30/19 16:00 45 01/30/19 15:30 53 16 142/75 100 45 01/30/19 15:00 52 16 166/76 100 45 01/30/19 15:00 16 Mechanical Ventilator 45 01/30/19 14:50 54 16 100 Mechanical Ventilator 45 58 16 45 01/30/19 14:30 53 16 134/68 100 45 01/30/19 14:00 16 Mechanical Ventilator 45 01/30/19 14:00 53 16 153/76 100 45 01/30/19 13:30 56 16 193/84 100 45 01/30/19 13:02 64 16 45 01/30/19 13:00 16 Mechanical Ventilator 45 01/30/19 13:00 52 16 129/68 100 45 01/30/19 12:30 54 16 126/69 100 45 01/30/19 12:00 Mechanical Ventilator 01/30/19 12:00 16 Mechanical Ventilator 45 01/30/19 12:00 99.1 54 16 124/68 100 45 01/30/19 12:00 45 01/30/19 12:00 53 01/30/19 11:30 53 16 153/73 100 45 01/30/19 11:00 52 16 136/70 100 45 01/30/19 11:00 15 Mechanical Ventilator 45 01/30/19 10:43 52 16 100 Mechanical Ventilator 45 52 16 45 01/30/19 10:30 52 16 129/67 100 50 01/30/19 10:00 16 Mechanical Ventilator 45 01/30/19 10:00 51 16 142/77 100 50 01/30/19 09:34 55 16 174/84 100 50 01/30/19 09:14 65 16 50 01/30/19 09:00 55 16 130/70 100 50 01/30/19 08:37 16 Mechanical Ventilator 50 01/30/19 08:32 98.1 01/30/19 08:30 52 16 136/74 100 50 01/30/19 08:19 116/68 01/30/19 08:02 16 Mechanical Ventilator 15.0 50 01/30/19 08:00 50 01/30/19 08:00 52 16 116/68 100 50 01/30/19 08:00 Mechanical Ventilator 01/30/19 08:00 52 01/30/19 07:48 60 16 99 Mechanical Ventilator 50 51 16 50 01/30/19 07:30 51 16 150/74 100 50 01/30/19 07:00 16 Mechanical Ventilator 50 01/30/19 07:00 98.1 60 16 158/88 100 50 01/30/19 06:30 51 16 132/72 100 50 01/30/19 06:00 16 Mechanical Ventilator 50 01/30/19 06:00 51 16 142/75 99 Mechanical Ventilator 50 01/30/19 05:30 50 16 156/75 100 Mechanical Ventilator 50 01/30/19 05:16 52 16 Mechanical Ventilator 50 01/30/19 05:00 52 16 149/77 99 Mechanical Ventilator 50 01/30/19 05:00 16 Mechanical Ventilator 50 01/30/19 04:30 52 16 149/75 99 Mechanical Ventilator 50 01/30/19 04:00 Mechanical Ventilator 01/30/19 04:00 50 01/30/19 04:00 50 01/30/19 04:00 16 Mechanical Ventilator 50 01/30/19 04:00 97.3 53 16 163/75 99 Mechanical Ventilator 50 01/30/19 03:30 52 16 192/82 98 Mechanical Ventilator 50 01/30/19 03:00 17 Mechanical Ventilator 50 01/30/19 03:00 62 16 211/89 100 Mechanical Ventilator 50 01/30/19 02:53 50 16 99 Mechanical Ventilator 50 50 16 50 01/30/19 02:30 49 16 162/80 100 Mechanical Ventilator 50 01/30/19 02:00 49 16 158/80 100 Mechanical Ventilator 50 01/30/19 02:00 18 Mechanical Ventilator 50 01/30/19 01:30 48 16 147/75 100 Mechanical Ventilator 50 01/30/19 01:09 50 16 Mechanical Ventilator 50 01/30/19 01:00 16 Mechanical Ventilator 50 01/30/19 01:00 48 16 138/70 99 Mechanical Ventilator 50 01/30/19 00:30 51 16 130/73 99 Mechanical Ventilator 50 01/30/19 00:00 51 01/30/19 00:00 50 01/30/19 00:00 98.3 54 16 183/85 99 Mechanical Ventilator 50 01/30/19 00:00 16 Mechanical Ventilator 50 01/30/19 00:00 Mechanical Ventilator 01/29/19 23:30 52 16 131/71 99 Mechanical Ventilator 50 01/29/19 23:25 52 16 99 Mechanical Ventilator 50 52 16 50 01/29/19 23:00 50 16 136/79 99 Mechanical Ventilator 50 01/29/19 23:00 16 Mechanical Ventilator 50 01/29/19 22:30 50 16 155/80 100 Mechanical Ventilator 40 01/29/19 22:00 53 19 191/167 100 Mechanical Ventilator 40 01/29/19 21:54 16 Mechanical Ventilator 50 01/29/19 21:30 51 16 143/75 99 Mechanical Ventilator 40 01/29/19 21:24 51 16 40 01/29/19 21:00 52 24 183/89 98 Mechanical Ventilator 01/29/19 21:00 16 Mechanical Ventilator 50 01/29/19 20:49 40 01/29/19 20:45 52 19 171/81 98 Mechanical Ventilator 40 01/29/19 20:30 56 19 171/87 98 Mechanical Ventilator 40 01/29/19 20:25 55 16 162/100 100 Mechanical Ventilator 40 01/29/19 20:00 18 Mechanical Ventilator 40 01/29/19 20:00 56 01/29/19 19:45 53 16 99 01/29/19 19:45 Mechanical Ventilator 01/29/19 19:30 53 16 99 01/29/19 19:15 53 16 168/85 99 01/29/19 19:00 16 Mechanical Ventilator 40 01/29/19 19:00 97.7 55 16 195/82 99 Mechanical Ventilator 40 01/29/19 18:55 55 16 40 Intake and Output 01/29/19 01/30/19 18:59 06:59 Intake Total 1000 ml 627 ml Output Total 500 ml 1640 ml Balance 500 ml -1013 ml Intake Oral 0 ml IV Total 1000 ml 567 ml Other 60 ml Output Urine Total 500 ml 1640 ml Laboratory Tests Test 01/29/19 21:00 01/30/19 05:45 Arterial Blood pH 7.425 (7.350-7.450) Arterial Blood Partial Pressure CO2 36.2 mmHg (35.0-45.0) Arterial Blood Partial Pressure O2 74.5 mmHg (75.0-100.0) L Arterial Blood HCO3 23.2 mmol/L (22.0-26.0) Arterial Blood Oxygen Saturation 94.5 % (95-100) L Arterial Blood Base Excess -0.8 (-2-2) Miguel Angel Test Positive White Blood Count 13.3 K/UL (4.8-10.8) H Red Blood Count 3.32 M/UL (4.20-5.40) L Hemoglobin 10.7 G/DL (12.0-16.0) L Hematocrit 32.4 % (37.0-47.0) L Mean Corpuscular Volume 97 FL (80-99) Mean Corpuscular Hemoglobin 32.1 PG (27.0-31.0) H Mean Corpuscular Hemoglobin Concent 32.9 G/DL (32.0-36.0) Red Cell Distribution Width 13.2 % (11.6-14.8) Platelet Count 197 K/UL (150-450) Mean Platelet Volume 6.9 FL (6.5-10.1) Neutrophils (%) (Auto) 64.9 % (45.0-75.0) Lymphocytes (%) (Auto) 16.4 % (20.0-45.0) L Monocytes (%) (Auto) 15.0 % (1.0-10.0) H Eosinophils (%) (Auto) 2.9 % (0.0-3.0) Basophils (%) (Auto) 0.8 % (0.0-2.0) Sodium Level 147 MMOL/L (136-145) H Potassium Level 4.1 MMOL/L (3.5-5.1) Chloride Level 110 MMOL/L (98-107) H Carbon Dioxide Level 27 MMOL/L (21-32) Anion Gap 10 mmol/L (5-15) Blood Urea Nitrogen 61 mg/dL (7-18) H Creatinine 4.6 MG/DL (0.55-1.30) H Estimat Glomerular Filtration Rate 9.8 mL/min (>60) Glucose Level 118 MG/DL (74-106) H Hemoglobin A1c 5.2 % (4.3-6.0) Lactic Acid Level 0.60 mmol/L (0.4-2.0) Uric Acid 8.9 MG/DL (2.6-7.2) H Calcium Level 9.2 MG/DL (8.5-10.1) Phosphorus Level 5.6 MG/DL (2.5-4.9) H Magnesium Level 2.5 MG/DL (1.8-2.4) H Total Bilirubin 0.5 MG/DL (0.2-1.0) Gamma Glutamyl Transpeptidase 5 U/L (5-85) Aspartate Amino Transf (AST/SGOT) 12 U/L (15-37) L Alanine Aminotransferase (ALT/SGPT) 13 U/L (12-78) Alkaline Phosphatase 52 U/L (46-116) Total Creatine Kinase 52 U/L (26-308) Troponin I 0.000 ng/mL (0.000-0.056) C-Reactive Protein, Quantitative 6.2 mg/dL (0.00-0.90) H Pro-B-Type Natriuretic Peptide 1450 pg/mL (0-125) H Total Protein 6.5 G/DL (6.4-8.2) Albumin 2.9 G/DL (3.4-5.0) L Globulin 3.6 g/dL Albumin/Globulin Ratio 0.8 (1.0-2.7) L Triglycerides Level 186 MG/DL (30-150) H Cholesterol Level 152 MG/DL (< 200) LDL Cholesterol 75 mg/dL (<100) HDL Cholesterol 35 MG/DL (40-60) L Cholesterol/HDL Ratio 4.3 (3.3-4.4) Thyroid Stimulating Hormone (TSH) 0.548 uiU/mL (0.358-3.740) Microbiology Date/Time Source Procedure Growth Status 01/29/19 14:30 Blood Blood Culture - Preliminary Resulted 01/29/19 14:50 Nasal Nares - Final Complete 01/29/19 14:50 Nasal Nares - Final Complete 01/29/19 14:55 Urine,Clean Catch Urine Culture - Preliminary NO GROWTH Resulted 01/29/19 17:40 Rectum Received Objective General Appearance: no acute distress HEENT: No JVD. Orally intubated on the Vent Respiratory/Chest: lungs clear Cardiovascular: RRR Abdomen: soft, non tender Extremities: no edema, other - left BELINDAA Justo Rosales MD Jan 30, 2019 18:14
--- NOTE | 2019-01-30 19:15 | Consultation ---
DATE OF CONSULTATION: 01/30/2019 INFECTIOUS DISEASES CONSULTATION PRIMARY ATTENDING PHYSICIAN: Isela Rubio M.D. REASON FOR CONSULT: Pneumonia. HISTORY OF PRESENT ILLNESS: This is a 58-year-old white female, who is a long-term resident admitted yesterday with shortness of breath. The patient was intubated and transferred to ICU. Currently, on sedation and is on restraints. She was recently admitted to [facility] in [place] about one week ago. At that time, she had bilateral hydronephrosis and ureteral stricture. The patient has cystoscopy and ureteroscopy and placement of bilateral stent. Urine culture grew ESBL organism and the patient received meropenem for a few days before transfer to nursing facility. PAST MEDICAL HISTORY: Significant for hypertension, anemia, bilateral hydronephrosis, ureteral stricture, and schizophrenia. MEDICATIONS: Protonix, clonidine, vitamin C, Colace, gabapentin, multivitamin, heparin, baclofen, albuterol, ipratropium inhaler, meropenem, Lasix, clonazepam, trazodone, olanzapine, , and hydromorphone. SOCIAL HISTORY: [facility] resident, . Currently, smoker. REVIEW OF SYSTEM: Not obtainable. PHYSICAL EXAMINATION: VITAL SIGNS: Temperature is 98.1 degrees since admission and no fever, pulse 65, and blood pressure 130/70. GENERAL APPEARANCE: Seems to be obese. HEAD AND NECK: Orally intubated. HEART: Normal rate. LUNGS: Clear, on mechanical ventilator. ABDOMEN: Soft and nontender. EXTREMITIES: She has left below knee amputation. No edema. LABORATORY AND DIAGNOSTIC DATA: WBC at the time of admission 14.1, today is 13.3, hemoglobin is 10.7, hematocrit 32.4, and platelets 197,000. Sodium 147, potassium 4.1, chloride 110, bicarbonate 27, BUN 61, creatinine 4.6, and hemoglobin A1c 5.2. Albumin is 2.9. Blood gas shows pCO2 of 74.5, O2 saturation 94.5, and pCO2 36. Chest x-ray showed left basilar atelectasis or pneumonia. IMPRESSION: Pneumonia and atelectasis in the left lung base, acute hypoxemic respiratory failure, acute renal failure, chronic obstructive pulmonary disease, hydronephrosis, anemia, schizophrenia, urethral stricture, hypertension, and bradycardia. RECOMMENDATION: We will continue with meropenem. We will follow up the culture so far. Urine culture and influenza tests are negative. At the end of my exam, I thank Dr. Rubio for involving me in the care of this patient. Jose Solis M.D. DR: Malgorzata JOB#: [id number] CC: PIERRE
--- NOTE | 2019-01-30 19:17 | NUR ---
RESPIRATORY NOTE: Received pt on AC 16, 550VT, 45%, PEEP +5. Pt is intubated w/ ETT 7.5 @ 23cm lipline, secured by acnhorfast. Pt is sedated. B/S annita. rhonchi/diminished, sxn small amounts of thick/thin, pale-yellow secretions. Both hands on soft-restraints to prevent pt from self-extubation. Vent plugged into red outlet, ambubag at bedside. Pt in no apparent distress at this time. Will continue to monitor pt.
--- NOTE | 2019-01-30 19:32 | NUR ---
HAND-OFF: Report given to GUZMAN Coppola.
--- NOTE | 2019-01-30 19:35 | NUR ---
NURSE NOTES: Received report and pt GUZMAN Phillip. Pt is resting in bed, nonverbal responsive, currently on Versed running at 1mg/hr, keep RASS -2. Orally intubated with ETT 7.5/23cm,AC 16, TV550, FiO2 45%, Peep 5, SpO2 100%, RR 16. SB on consumer lender, HR 52. OGT noted, clamped and NPO maintained, placement checked and intact. Right EJ 20G running D5 1/2NS@40ml/hr. Abdomen is round, non-distended. HOB 30degrees. Bed in low and locked position. Noted Bilateral soft wrist restraints in place for impulsiveness and safety. Rod noted intact and draining clear yellow urine to gravity. Call light within reach. Will continue to monitor.
[2019-01-30] MEDS: Dyna-Hex 2% Top Sol 2oz TOPIC SCH (20:02)
[2019-01-30] MEDS: D5 1/2NS 1,000 ML IV SCH (20:02)
--- NOTE | 2019-01-30 21:00 | History and Physical Report ---
DATE OF ADMISSION: 01/29/2019 HISTORY OF PRESENT ILLNESS: The patient was admitted for respiratory failure, intubated in the ER. Cannot obtain any history from the patient as the patient is intubated. because of intubation, the patient is in ICU, she is being treated for pneumonia, also being treated for sepsis. The patient is also psychiatric patient. PAST MEDICAL HISTORY: Significant for psychosis, anxiety, history of seizures, psychosis, chronic pain syndrome, history of hypertension, and history of edema. PAST SURGICAL HISTORY: History of ureteral stent in the past. MEDICATIONS: Medications she takes are Klonopin, bisacodyl, aspirin, gabapentin, trazodone, and olanzapine. ALLERGIES: Grits and hominy. FAMILY HISTORY: Unable to obtain. SOCIAL HISTORY: Unable to obtain. Comes from a intermediate. REVIEW OF SYSTEMS: Unable to obtain, the patient is intubated. PHYSICAL EXAMINATION: VITAL SIGNS: Pulse is 65, blood pressure is 174/84. HEENT: Pupils are reactive to light. CHEST: Bibasilar rhonchi. CARDIOVASCULAR: Bradycardic. GASTROINTESTINAL: Positive bowel sounds. ABDOMEN: Soft. No organomegaly. EXTREMITIES: 1+ edema. Does not follow neurologic exam. The patient is sedated. LABORATORY DATA: WBC of 14.1, hemoglobin 11.7, and platelets of 320. Sodium 147, potassium 4.1, BUN of 61, creatinine 4.6, and glucose of 118. ASSESSMENT AND PLAN: 1. Respiratory failure, intubated, rule out sepsis, rule out pneumonia, rule out CHF. The patient also has acute renal failure. 2. Leukocytosis, rule out uropathy. I have asked Dr. Daley, Dr. Hatch, as well as Dr. Jose Solis, Dr. Smith as well as a ballistics tester to see the patient for the above-mentioned diagnosis. The patient is very ill and also for bradycardia as well as for vent settings as well as for fluid management as well as for pneumonia. The patient is critically ill at this point. Isela Rubio M.D. DR: Michael JOB#: [id number] CC:
--- NOTE | 2019-01-30 22:00 | NUR ---
NURSE NOTES: Noted pt stays calm, asleep with eyes closed, moderate sedated RASS -3, therefore stopped Versed drip. Will continue to monitor. Maintaining bilateral wrists restraints.
[2019-01-30] MEDS: OLANZapine 2.5mg tab ORAL SCH (22:08)
[2019-01-30] MEDS: TraZODone 50mg tab ORAL SCH (22:09)
[2019-01-31] VITALS (29 sets, daily range): BP systolic 92–217; BP diastolic 64–97
--- NOTE | 2019-01-31 | NUR ---
NURSE NOTES: Pt's resting in bed in no acute distress. VS stable. Will continue to monitor.
--- NOTE | 2019-01-31 02:00 | NUR ---
NURSE NOTES: Pt's resting in bed, asleep with eyes closed, in no acute distress. VS stable. Will continue to monitor
--- NOTE | 2019-01-31 03:00 | NUR ---
NURSE NOTES: Noted pt's BP elevated 204/91, Hydralazine IVP PRN noted and given. Will continue to monitor. Pt's resting in bed, in no acute distress, open eyes with verbal and stimuli.
[2019-01-31] MEDS: Albuterol/Ipratropium 3ml neb HHN SCH ×6 (03:14→23:00)
[2019-01-31 05:00] LABS: BASOPHILS % (AUTO) 0.5 % (0.0-2.0); EOSINOPHILS % (AUTO) 2.8 % (0.0-3.0); HEMATOCRIT 33.5 % (37.0-47.0); HEMOGLOBIN 11.2 G/DL (12.0-16.0); LYMPHOCYTES % (AUTO) 19.5 % (20.0-45.0); MEAN CORPUSCULAR VOLUME 97 FL (80-99); MONOCYTES % (AUTO) 12.8 % (1.0-10.0); NEUTROPHILS % (AUTO) 64.3 % (45.0-75.0); PLATELET COUNT 194 K/UL (150-450); RED BLOOD COUNT 3.47 M/UL (4.20-5.40)
--- NOTE | 2019-01-31 05:00 | NUR ---
NURSE NOTES: Noted pt's BP trending down, current BP 181/92. Will continue to monitor.
[2019-01-31 05:29] LABS: PHOSPHORUS 6.6 MG/DL (2.5-4.9)
[2019-01-31 05:31] LABS: % IRON SATURATION 25 % (15-50); IRON 50 ug/dL (50-175); TOTAL IRON BINDING CAPACITY 198 ug/dL (250-450)
[2019-01-31 05:37] LABS: ALANINE AMINOTRANSFERASE 15 U/L (12-78); ALBUMIN/GLOBULIN RATIO 0.7 (1.0-2.7); ALKALINE PHOSPHATASE 56 U/L (46-116); ANION GAP 11 mmol/L (5-15); ASPARTATE AMINO TRANSFERASE 12 U/L (15-37); BILIRUBIN,TOTAL 0.5 MG/DL (0.2-1.0); BLOOD UREA NITROGEN 60 mg/dL (7-18); CALCIUM 9.5 MG/DL (8.5-10.1); CARBON DIOXIDE 27 MMOL/L (21-32); CHLORIDE 106 MMOL/L (98-107); FERRITIN 327 NG/ML (8-388); POTASSIUM 4.2 MMOL/L (3.5-5.1); SODIUM 144 MMOL/L (136-145)
[2019-01-31] MEDS ORDERED: Etomidate 40mg/20ml Inj IV ONE (06:00)
--- NOTE | 2019-01-31 07:00 | NUR ---
RESPIRATORY NOTES: Received Patient on Vent settings ACVC RR 16, VT 550, Fio2 45% PEEP +5. Patient is intubated with a 7.5 ETT at 23cm at the lip, secured with anchorfast. Suctioned minimal clear secretions through ETT. Patient awake, with eyes open however confused. Vent plugged into red outlet. Alarms are on and audible. Will continue to monitor patient throughout the day.
--- NOTE | 2019-01-31 07:20 | NUR ---
HAND-OFF: Report given to GUZMAN Staples.
--- NOTE | 2019-01-31 07:32 | NUR ---
NURSE NOTES: Report received from GUZMAN Coppola
--- NOTE | 2019-01-31 07:46 | NUR ---
NURSE NOTES: Patient was received asleep and open eyes to slight touch. Alert and oriented to name.Patient afebrile and orally intubated with ETT 7.5/23cm,AC 16, TV550, FiO2 45%, Peep 5, SpO2 96%,CO2 32 and RR 20. No apparent acute distress.OGT placement checked and intact.Noted with 70cc clear greenish drainage, HOB elevated at 45 degree to prevent aspiration.GT clamped and NPO. Right EJ 20G running D5 1/2NS@40ml/hr with no apparent infiltration.Abdomen soft and non-distended with bowel sounds present in all 4 quadrants.Left BKA with right lower leg + 1 pitting edema.Rod catheter in place draining yellowish urine with no apparent sediments. Per previous shift patient off versed since last night , no agitation noted at this time.Bed in low position and locked position.Bilateral soft wrist restraints in place for safety and prevent removal of restraints. Mouth care done, turned and repositioned and suctioned as tolerated.Call light within reach at all the times.Will continue to monitor.
[2019-01-31] MEDS: Docusate 250mg cap ORAL SCH (08:23)
[2019-01-31] MEDS: Zinc Sulfate 220mg cap ORAL SCH (08:23)
[2019-01-31] MEDS: Heparin 5000 units/ml inj SUBQ SCH ×2 (08:29→21:00)
--- NOTE | 2019-01-31 08:32 | Pulmonolgy Critical Care Note ---
Critical Care - Asmt/Plan Assessment/Plan: Pulmonary Critical Care Progress Noted HPI The patient is a 58 year old woman admitted with worsening shortness of breath, respiratory failure requiring intubation, pneumonia. Altered mental status prior to intubation in the ED. Noted to have evidence of UTI in addition to pneumonia LLL Per chart review h/o Seizure disorder, Left Kidney Mass, Hydronephrosis, Hypertension, HHD, Nausea and Vomiting Past Medical History: ESBL UTI from half-way Leukocytosis likely related to infection Left kidney mass Left hydronephrosis Anxiety Dehydration Seizure disorder on Clonazepam and Gabapentin Weakness Schizophrenia Hypertension Obesity PSH: Left BKA Allergies: Grits (Unverified Allergy, Unknown, 07/06/17) Cohagen (Unverified Allergy, Unknown, 07/06/17) stable overnight awaiting Urological Procedure Physical Exam Vital Signs Noted General Appearance: Sedated on the Ventilator Head: normocephalic, atraumatic, ENT: dry mucus membranes, ETT Neck: No LN Respiratory: Bilateral rhonchi Cardiovascular: regular rate, rhythm, HS1, HS2, no edema Gastrointestinal: decreased bowel sounds, overweight, abrasions abdominal wall Musculoskeletal: moving all limbs, BKA L Neurologic: Sedated, PERRL Psychiatric: other - Unresponsive Skin: warm/dry, Impression: Ventilator Dependent Respiratory failure Left lower lobe pulmonary infiltrate Urinary tract infection ESBL UTI from half-way Acute on Chronic Renal Failure Left kidney mass Left hydronephrosis Anxiety Dehydration Seizure disorder on Clonazepam and Gabapentin Weakness Schizophrenia Hypertension Obesity Plan Continue current ACVCsettings Wean FIO2- dsays 90-96% Sedation PRN Check ABG Antibiotics per ID Aspiration/Seizure precautions 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 Patient is stable from Pulmonary Perspective for planned Urological Procedure, will need to remain on mechanical ventilation during and after procedure EKG: Rate: normal Rhythm: NSR ST Segments: no acute changes Chest X-Ray: no effusion, no pneumothorax, other - ET well positioned, possible L sided infiltrate Critical Care - Objective Last 24 Hour Vital Signs Date Time Temp Pulse Resp B/P (MAP) Pulse Ox O2 Delivery O2 Flow Rate FiO2 01/31/19 07:30 98.6 61 16 160/87 100 45 01/31/19 07:16 84 16 100 Mechanical Ventilator 45 83 16 45 01/31/19 07:00 86 16 149/82 100 45 01/31/19 06:30 71 16 179/87 100 45 01/31/19 06:00 72 16 133/86 100 45 01/31/19 05:30 96 17 181/92 100 45 01/31/19 05:00 96 22 188/89 100 45 01/31/19 04:54 83 20 45 01/31/19 04:30 69 23 173/93 100 45 01/31/19 04:00 45 01/31/19 04:00 77 01/31/19 04:00 58 17 197/91 100 45 01/31/19 04:00 Mechanical Ventilator 01/31/19 03:53 215/85 01/31/19 03:48 57 18 215/85 100 45 01/31/19 03:30 60 16 217/89 100 45 01/31/19 03:23 63 16 100 Mechanical Ventilator 45 01/31/19 03:13 61 16 100 Mechanical Ventilator 45 61 16 45 01/31/19 03:00 98.8 59 16 204/91 100 45 01/31/19 02:00 51 16 117/72 100 45 01/31/19 01:12 52 16 45 01/31/19 01:00 65 16 153/75 100 45 01/31/19 00:30 65 16 153/75 100 45 01/31/19 00:00 56 01/31/19 00:00 45 01/31/19 00:00 Mechanical Ventilator 01/31/19 00:00 54 16 118/67 100 45 01/30/19 23:30 56 16 105/62 100 45 01/30/19 23:22 56 16 100 Mechanical Ventilator 45 01/30/19 23:12 56 16 99 Mechanical Ventilator 45 56 16 45 01/30/19 23:00 56 16 122/74 100 45 01/30/19 22:30 53 16 190/80 100 45 01/30/19 22:00 53 16 195/85 100 45 01/30/19 22:00 16 Mechanical Ventilator 45 01/30/19 21:30 55 16 217/89 100 45 01/30/19 21:03 52 16 45 01/30/19 21:00 16 Mechanical Ventilator 45 01/30/19 21:00 51 16 137/69 100 45 01/30/19 20:30 52 16 121/74 100 45 01/30/19 20:00 Mechanical Ventilator 01/30/19 20:00 52 16 132/71 100 45 01/30/19 20:00 16 Mechanical Ventilator 45 01/30/19 20:00 52 01/30/19 20:00 45 01/30/19 19:30 52 16 188/88 100 45 01/30/19 19:26 52 16 100 Mechanical Ventilator 45 01/30/19 19:14 59 16 100 Mechanical Ventilator 45 59 16 45 01/30/19 19:00 98.5 53 16 136/79 100 45 01/30/19 19:00 16 Mechanical Ventilator 45 01/30/19 18:30 53 16 182/85 100 01/30/19 18:00 54 16 147/74 100 45 01/30/19 18:00 16 Mechanical Ventilator 45 01/30/19 17:42 142/75 01/30/19 17:30 53 16 142/75 100 45 01/30/19 17:00 53 16 142/75 100 45 01/30/19 17:00 16 Mechanical Ventilator 45 01/30/19 16:42 66 16 45 01/30/19 16:30 53 16 142/75 100 45 01/30/19 16:00 99.5 53 16 142/75 100 45 01/30/19 16:00 16 Mechanical Ventilator 45 01/30/19 16:00 Mechanical Ventilator 01/30/19 16:00 51 01/30/19 16:00 45 01/30/19 15:30 53 16 142/75 100 45 01/30/19 15:00 52 16 166/76 100 45 01/30/19 15:00 16 Mechanical Ventilator 45 01/30/19 14:50 54 16 100 Mechanical Ventilator 45 58 16 45 01/30/19 14:30 53 16 134/68 100 45 01/30/19 14:00 16 Mechanical Ventilator 45 01/30/19 14:00 53 16 153/76 100 45 01/30/19 13:30 56 16 193/84 100 45 01/30/19 13:02 64 16 45 01/30/19 13:00 16 Mechanical Ventilator 45 01/30/19 13:00 52 16 129/68 100 45 01/30/19 12:30 54 16 126/69 100 45 01/30/19 12:00 Mechanical Ventilator 01/30/19 12:00 16 Mechanical Ventilator 45 01/30/19 12:00 99.1 54 16 124/68 100 45 01/30/19 12:00 45 01/30/19 12:00 53 01/30/19 11:30 53 16 153/73 100 45 01/30/19 11:00 52 16 136/70 100 45 01/30/19 11:00 15 Mechanical Ventilator 45 01/30/19 10:43 52 16 100 Mechanical Ventilator 45 52 16 45 01/30/19 10:30 52 16 129/67 100 50 01/30/19 10:00 16 Mechanical Ventilator 45 01/30/19 10:00 51 16 142/77 100 50 01/30/19 09:34 55 16 174/84 100 50 01/30/19 09:14 65 16 50 01/30/19 09:00 55 16 130/70 100 50 01/30/19 08:37 16 Mechanical Ventilator 50 01/30/19 08:32 98.1 Micro: Microbiology Date/Time Source Procedure Growth Status 01/29/19 14:30 Blood Blood Culture - Preliminary Staphylococcus Sp Coag Neg Resulted 01/29/19 14:15 Blood Blood Culture - Preliminary NO GROWTH AFTER 24 HOURS Resulted 01/29/19 14:50 Nasal Nares - Final Complete 01/29/19 14:50 Nasal Nares - Final Complete 01/29/19 14:55 Urine,Clean Catch Urine Culture - Preliminary NO GROWTH AFTER 24 HOURS Resulted 01/29/19 17:40 Rectum Received Accucheck: 83 Critical Care - Subjective ROS Limited/Unobtainable: No FI02: 45 Vent Support Breath Rate: 16 Vent Support Mode: AC Vent Tidal Volume: 550 Sputum Amount: Small PEEP: 5.0 PIP: 21 I&O: Intake and Output 01/30/19 01/31/19 19:00 07:00 Intake Total 626 ml 661 ml Output Total 1900 ml 1600 ml Balance -1274 ml -939 ml Intake Oral 0 ml 0 ml IV Total 506 ml 541 ml Other 120 ml 120 ml Output Urine Total 1900 ml 1600 ml # Bowel Movements 1 ET-Tube: 7.5 ET Position: 23 Gabino Smith MD Jan 31, 2019 08:32
[2019-01-31] MEDS: D5 1/2NS 1,000 ML IV SCH ×2 (08:39→21:53)
[2019-01-31] MEDS: Meropenem 500mg/NS 55ml IVPB SCH ×4 (08:42→19:50)
--- NOTE | 2019-01-31 09:20 | NUR ---
NURSE NOTES: Received call from Dr Daley with new order for Cystoscopy with possible right JJ stent placement and fluoroscopy. Made aware pt is non verbal and unable to follow directions.As stated he will write a consent and to have Dr Hatch write a second consent.Will follow up with Dr Hatch
--- NOTE | 2019-01-31 10:14 | Infectious Diseases Prog Note ---
Assessment/Plan Assessment/Plan A; Sepsis Positive blood culture, contamination Acute renal failure Acute respiratory failure, hypoxemic Hydronephrosis Obstructive uropathy Schizophrenia P; Discontinue Vancomycin Continue Meropenem Urologic evaluation is pending Subjective ROS Limited/Unobtainable: Yes Neurologic: Reports: other - more alert, on restraint Allergies: Coded Allergies: Grits (Unverified Allergy, Unknown, 07/06/17) [place] (Unverified Allergy, Unknown, 07/06/17) Objective Vital Signs Last 24 Hour Vital Signs Date Time Temp Pulse Resp B/P (MAP) Pulse Ox O2 Delivery O2 Flow Rate FiO2 01/31/19 07:30 98.6 61 16 160/87 100 45 01/31/19 07:16 84 16 100 Mechanical Ventilator 45 83 16 45 01/31/19 07:00 86 16 149/82 100 45 01/31/19 06:30 71 16 179/87 100 45 01/31/19 06:00 72 16 133/86 100 45 01/31/19 05:30 96 17 181/92 100 45 01/31/19 05:00 96 22 188/89 100 45 01/31/19 04:54 83 20 45 01/31/19 04:30 69 23 173/93 100 45 01/31/19 04:00 45 01/31/19 04:00 77 01/31/19 04:00 58 17 197/91 100 45 01/31/19 04:00 Mechanical Ventilator 01/31/19 03:53 215/85 01/31/19 03:48 57 18 215/85 100 45 01/31/19 03:30 60 16 217/89 100 45 01/31/19 03:23 63 16 100 Mechanical Ventilator 45 01/31/19 03:13 61 16 100 Mechanical Ventilator 45 61 16 45 01/31/19 03:00 98.8 59 16 204/91 100 45 01/31/19 02:00 51 16 117/72 100 45 01/31/19 01:12 52 16 45 01/31/19 01:00 65 16 153/75 100 45 01/31/19 00:30 65 16 153/75 100 45 01/31/19 00:00 56 01/31/19 00:00 45 01/31/19 00:00 Mechanical Ventilator 01/31/19 00:00 54 16 118/67 100 45 01/30/19 23:30 56 16 105/62 100 45 01/30/19 23:22 56 16 100 Mechanical Ventilator 45 01/30/19 23:12 56 16 99 Mechanical Ventilator 45 56 16 45 01/30/19 23:00 56 16 122/74 100 45 01/30/19 22:30 53 16 190/80 100 45 01/30/19 22:00 53 16 195/85 100 45 01/30/19 22:00 16 Mechanical Ventilator 45 01/30/19 21:30 55 16 217/89 100 45 01/30/19 21:03 52 16 45 01/30/19 21:00 16 Mechanical Ventilator 45 01/30/19 21:00 51 16 137/69 100 45 01/30/19 20:30 52 16 121/74 100 45 01/30/19 20:00 Mechanical Ventilator 01/30/19 20:00 52 16 132/71 100 45 01/30/19 20:00 16 Mechanical Ventilator 45 01/30/19 20:00 52 01/30/19 20:00 45 01/30/19 19:30 52 16 188/88 100 45 01/30/19 19:26 52 16 100 Mechanical Ventilator 45 01/30/19 19:14 59 16 100 Mechanical Ventilator 45 59 16 45 01/30/19 19:00 98.5 53 16 136/79 100 45 01/30/19 19:00 16 Mechanical Ventilator 45 01/30/19 18:30 53 16 182/85 100 01/30/19 18:00 54 16 147/74 100 45 01/30/19 18:00 16 Mechanical Ventilator 45 01/30/19 17:42 142/75 01/30/19 17:30 53 16 142/75 100 45 01/30/19 17:00 53 16 142/75 100 45 01/30/19 17:00 16 Mechanical Ventilator 45 01/30/19 16:42 66 16 45 01/30/19 16:30 53 16 142/75 100 45 01/30/19 16:00 99.5 53 16 142/75 100 45 01/30/19 16:00 16 Mechanical Ventilator 45 01/30/19 16:00 Mechanical Ventilator 01/30/19 16:00 51 01/30/19 16:00 45 01/30/19 15:30 53 16 142/75 100 45 01/30/19 15:00 52 16 166/76 100 45 01/30/19 15:00 16 Mechanical Ventilator 45 01/30/19 14:50 54 16 100 Mechanical Ventilator 45 58 16 45 01/30/19 14:30 53 16 134/68 100 45 01/30/19 14:00 16 Mechanical Ventilator 45 01/30/19 14:00 53 16 153/76 100 45 01/30/19 13:30 56 16 193/84 100 45 01/30/19 13:02 64 16 45 01/30/19 13:00 16 Mechanical Ventilator 45 01/30/19 13:00 52 16 129/68 100 45 01/30/19 12:30 54 16 126/69 100 45 01/30/19 12:00 Mechanical Ventilator 01/30/19 12:00 16 Mechanical Ventilator 45 01/30/19 12:00 99.1 54 16 124/68 100 45 01/30/19 12:00 45 01/30/19 12:00 53 01/30/19 11:30 53 16 153/73 100 45 01/30/19 11:00 52 16 136/70 100 45 01/30/19 11:00 15 Mechanical Ventilator 45 01/30/19 10:43 52 16 100 Mechanical Ventilator 45 52 16 45 01/30/19 10:30 52 16 129/67 100 50 Height (Feet): 5 Height (Inches): 4.00 Weight (Pounds): 224 HEENT: other - orally intubated Respiratory/Chest: lungs clear, other - on ventilator Cardiovascular: normal rate Abdomen: soft, non tender, other - NG tube Extremities: other - trace edema, left BKA Neurologic/Psychiatric: alert, responsive Microbiology Date/Time Source Procedure Growth Status 01/29/19 14:30 Blood Blood Culture - Preliminary Staphylococcus Sp Coag Neg Resulted 01/29/19 14:15 Blood Blood Culture - Preliminary NO GROWTH AFTER 24 HOURS Resulted 01/30/19 05:00 Sputum Induced Gram Stain Pending Resulted 01/30/19 05:00 Sputum Induced Sputum Culture - Preliminary NO GROWTH Resulted 01/29/19 17:40 Nasal Nares MRSA Culture - Final NO METHICILLIN RESISTANT STAPH AUREUS... Complete 01/29/19 14:50 Nasal Nares - Final Complete 01/29/19 14:50 Nasal Nares - Final Complete 01/29/19 14:55 Urine,Clean Catch Urine Culture - Preliminary NO GROWTH AFTER 24 HOURS Resulted 01/29/19 17:40 Rectum - Final NO CARBAPENEM-RESISTANT ENTEROBACTERI... Complete 01/29/19 17:40 Rectum VRE Culture - Final NO VANCOMYCIN RESISTANT ENTEROCOCCUS ... Complete Laboratory Tests Test 01/31/19 03:50 White Blood Count 12.0 K/UL (4.8-10.8) H Red Blood Count 3.47 M/UL (4.20-5.40) L Hemoglobin 11.2 G/DL (12.0-16.0) L Hematocrit 33.5 % (37.0-47.0) L Mean Corpuscular Volume 97 FL (80-99) Mean Corpuscular Hemoglobin 32.3 PG (27.0-31.0) H Mean Corpuscular Hemoglobin Concent 33.5 G/DL (32.0-36.0) Red Cell Distribution Width 13.0 % (11.6-14.8) Platelet Count 194 K/UL (150-450) Mean Platelet Volume 6.5 FL (6.5-10.1) Neutrophils (%) (Auto) 64.3 % (45.0-75.0) Lymphocytes (%) (Auto) 19.5 % (20.0-45.0) L Monocytes (%) (Auto) 12.8 % (1.0-10.0) H Eosinophils (%) (Auto) 2.8 % (0.0-3.0) Basophils (%) (Auto) 0.5 % (0.0-2.0) Sodium Level 144 MMOL/L (136-145) Potassium Level 4.2 MMOL/L (3.5-5.1) Chloride Level 106 MMOL/L (98-107) Carbon Dioxide Level 27 MMOL/L (21-32) Anion Gap 11 mmol/L (5-15) Blood Urea Nitrogen 60 mg/dL (7-18) H Creatinine 5.0 MG/DL (0.55-1.30) H Estimat Glomerular Filtration Rate 8.9 mL/min (>60) Glucose Level 123 MG/DL (74-106) H Uric Acid 9.0 MG/DL (2.6-7.2) H Calcium Level 9.5 MG/DL (8.5-10.1) Phosphorus Level 6.6 MG/DL (2.5-4.9) H Magnesium Level 2.4 MG/DL (1.8-2.4) Iron Level 50 ug/dL (50-175) Total Iron Binding Capacity 198 ug/dL (250-450) L Percent Iron Saturation 25 % (15-50) Unsaturated Iron Binding 148 ug/dL (112-346) Ferritin 327 NG/ML (8-388) Total Bilirubin 0.5 MG/DL (0.2-1.0) Aspartate Amino Transf (AST/SGOT) 12 U/L (15-37) L Alanine Aminotransferase (ALT/SGPT) 15 U/L (12-78) Alkaline Phosphatase 56 U/L (46-116) Total Protein 7.2 G/DL (6.4-8.2) Albumin 3.0 G/DL (3.4-5.0) L Globulin 4.2 g/dL Albumin/Globulin Ratio 0.7 (1.0-2.7) L Vitamin B12 Level 443 PG/ML (193-986) Folate 17.9 NG/ML (8.6-58.9) Current Medications Medications (Trade) Dose Ordered Sig/William Route PRN Reason Start Time Stop Time Status Last Admin Dose Admin Acetaminophen (Tylenol) 650 mg Q6H PRN ORAL Fever (temp>100.5F) 01/29/19 18:30 02/28/19 18:29 Albuterol/ Ipratropium (Albuterol/ Ipratropium) 3 ml Q4HRT HHN 01/29/19 23:00 02/03/19 22:59 01/31/19 07:19 Baclofen (Lioresal) 5 mg Q12HR ORAL 01/30/19 09:00 03/01/19 08:59 01/31/19 08:24 Bisacodyl (Dulcolax) 10 mg DAILYPRN PRN RECTAL Constipation 01/29/19 20:00 02/28/19 19:59 Chlorhexidine Gluconate (Genevieve-Hex 2%) 1 applic DAILY@2000 TOPIC 01/29/19 20:00 02/28/19 19:59 01/30/19 20:02 Clonazepam (KlonoPIN) 1 mg Q8HR ORAL 01/29/19 22:00 02/05/19 21:59 01/31/19 06:11 Clonidine HCl (Catapres Tab) 0.1 mg Q8HR NG 01/31/19 14:00 03/01/19 08:59 Dextrose (Dextrose 50%) 25 ml Q30M PRN IV Hypoglycemia 01/29/19 18:30 02/28/19 18:29 Dextrose (Dextrose 50%) 50 ml Q30M PRN IV Hypoglycemia 01/29/19 18:30 02/28/19 18:29 Dextrose/Sodium Chloride 1,000 ml @ 75 mls/hr [id number] IV 01/31/19 07:52 03/02/19 07:51 01/31/19 08:39 Docusate Sodium (Colace) 250 mg DAILY ORAL 01/30/19 09:00 03/01/19 08:59 01/31/19 08:23 Gabapentin (Neurontin) 200 mg THREE TIMES A DAY ORAL 01/30/19 09:00 03/01/19 08:59 01/31/19 08:24 Heparin Sodium (Porcine) (Heparin 5000 units/ml) 5,000 units EVERY 12 HOURS SUBQ 01/30/19 09:00 03/01/19 08:59 01/31/19 08:29 Heparin Sodium/ Sodium Chloride (Heparin 1000 units/500ml Premix) 1,000 unit ONCE PRN IV PICC PLACEMENT 01/29/19 19:15 01/31/19 23:59 Hydralazine HCl (Apresoline) 10 mg Q6H PRN IV For High Blood Pressure 01/29/19 18:30 02/28/19 18:29 01/31/19 03:53 Hydromorphone HCl (Dilaudid) 0.5 mg Q2H PRN IVP For Pain 01/29/19 18:30 02/05/19 18:29 01/29/19 20:15 Lidocaine HCl (Xylocaine 1% 30ml) 30 ml ONCE PRN INJ PICC PLACEMENT 01/29/19 19:15 01/31/19 23:59 Meropenem 500 mg/ Sodium Chloride 55 ml @ 110 mls/hr Q12HR@0800,2000 IVPB 01/29/19 20:00 02/03/19 19:59 01/31/19 08:42 Midazolam HCl 100 ml @ 0 mls/hr Q24H PRN IV Restlessness 01/29/19 19:00 02/05/19 18:59 01/30/19 08:02 Multivitamins (Multivitamins) 1 tab DAILY ORAL 01/30/19 09:00 03/01/19 08:59 01/31/19 08:24 Olanzapine (ZyPREXA) 2.5 mg BEDTIME ORAL 01/29/19 21:00 02/28/19 20:59 01/30/19 22:08 Pantoprazole (Protonix) 40 mg DAILY ORAL 01/30/19 09:00 03/01/19 08:59 01/31/19 08:24 Trazodone HCl (Desyrel) 50 mg BEDTIME ORAL 01/29/19 21:00 02/28/19 20:59 01/30/19 22:09 Vancomycin HCl (Vanco rx to dose) 1 ea DAILY PRN MISC Per rx protocol 01/30/19 11:30 03/01/19 11:29 Zinc Sulfate (Zinc Sulfate) 220 mg DAILY ORAL 01/30/19 09:00 03/01/19 08:59 01/31/19 08:23 Jose Solis MD Jan 31, 2019 10:14
--- NOTE | 2019-01-31 10:46 | NUR ---
NURSE NOTES: Left message to Dr Hatch personal secretary Bernadette for written consent for the stent placement.Awaiting new order Addendum: 01/31/19 at 1053 by Bel Frias RN Preop check list done
[2019-01-31] MEDS ORDERED: Rocuronium Bromide 50mg/5ml Inj IV ONE (11:28)
--- NOTE | 2019-01-31 11:37 | NUR ---
NURSE NOTES: Received call from Bernadette at Dr Hatch office and stated he is not available to write a consent and follow up with another physician.Dr Rubio paged and message left on his emergency line for second consent for stent placement and procedure scheduled at 1230. Awaiting feedback
[2019-01-31] MEDS ORDERED: Iothalamate Meglumine 60% 30ML INJ ONE (12:02)
--- NOTE | 2019-01-31 12:13 | NUR ---
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 97.9 HR 63 RR 18 B/P 153/84 AC 14 TV 500 FIO2 40% PH 7.33 PCO2 45.0 PO2 68.3 HCO3 23.2 O2 SAT 89.9 WBC 14.1 BUN 64 CR 4.6 MG 2.6 IS: IV BOLUS NS X 1 LITER ZOSYN IV ZITHROMAX IV ETOMIDATE IV ADMITTED TO ICU @ 1647 ICU STATUS PENDING HOSPITAL STAY
--- NOTE | 2019-01-31 12:16 | Cardiology Report ---
APPROVED REPORT EXAM: Two-dimensional and M-mode echocardiogram with Doppler and color Doppler. INDICATION Congestive Heart Failure M-Mode DIMENSIONS IVSd1.0 (0.7-1.1cm)Left Atrium (MM)3.2 (1.6-4.0cm) LVDd5.2 (3.5-5.6cm)Aortic Root3.3 (2.0-3.7cm) PWd1.0 (0.7-1.1cm)Aortic Cusp Exc.1.9 (1.5-2.0cm) IVSs1.2 cm LVDs3.2 (2.5-4.0cm) PWs1.2 cm Technically difficult study due to poor acoustical windows. Normal left ventricular chamber size, systolic function and wall motion to extent visualized. Left ventricular ejection fraction estimated to be 60%. All other cardiac chamber sizes are within normal limits. Focal aortic valve sclerosis with adequate cusp excursion. Thickened mitral valve leaflets with normal excursion. Mitral annulus and aortic root calcification. Normal pulmonic valve structure. Normal tricuspid valve structure. IVC at normal size with physiologic collapse. A color flow and spectral Doppler study was performed and revealed: Trace mitral regurgitation. Mitral inflow indicates normal left ventricular diastolic function. Trace tricuspid regurgitation. Tricuspid systolic velocities suggests peak right ventricular systolic pressure of 31 mmHg.
[2019-01-31] MEDS ORDERED: fentaNYL 100 mcg/2 mL IV ONE (12:25)
[2019-01-31] MEDS ORDERED: NS Irrig 1000ml ONE (12:30)
[2019-01-31] MEDS ORDERED: Sterile Water Irrig 1000ml IRRIG ONE (12:30)
--- NOTE | 2019-01-31 12:57 | Pre-Procedure Note/Attestation ---
Pre-Procedure Note/Attestation Complete Prior to Procedure Planned Procedure: right Procedure Narrative: Cystoscopy, right JJ stent placement, fluoroscopy Indications for Procedure Pre-Operative Diagnosis: Right hydronephrosis, renal failure Attestation I attest that I discussed the nature of the procedure; its benefits; risks and complications; and alternatives (and the risks and benefits of such alternatives ), prior to the procedure, with the patient (or the patient's legal account representative). I attest that, if there was a reasonable possibility of needing a blood transfusion, the patient (or the patient's legal account representative) was given the [facility] standardized written summary, pursuant to the Alfredo Malika Blood Safety Act ([place] Health and Safety Code # 1645, as amended). I attest that I re-evaluated the patient just prior to the surgery and that there has been no change in the patient's H&P, except as documented below: Fernando Daley M.D. Jan 31, 2019 12:57
--- NOTE | 2019-01-31 13:09 | NUR ---
NURSE NOTES: Patient was taken down for stent placement,per Dr Daley, he will write a consent. Consent form filled out and returned to OR charge nurse
--- NOTE | 2019-01-31 13:31 | Anethesia Preoperative Eval ---
Anesthesia Pre-op PMH/ROS General Date of Evaluation: Jan 31, 2019 Time of Evaluation: 11:50 Anesthesiologist: Gus ASA Score: ASA 4 Mallampati Score Class I : Soft palate, uvula, fauces, pillars visible Class II: Soft palate, uvula, fauces visible Class III: Soft palate, base of uvula visible Class IV: Only hard plate visible Mallampati Classification: Class III Surgeon: Felicita Diagnosis: R hydronephrosis Surgical Procedure: Cysto Stent placement Anesthesia History: none Family History: no anesthesia problems Allergies: Coded Allergies: Grits (Unverified Allergy, Unknown, 07/06/17) [place] (Unverified Allergy, Unknown, 07/06/17) Medications: see eMAR Patient NPO?: Yes NPO Date: Jan 29, 2019 NPO Time: 1159 Past Medical History Cardiovascular: Reports: HTN; Denies: CAD, [place], valve dz, arrhythmia, other Pulmonary: Reports: other - respiratory failure; Denies: asthma, COPD, RUBIO Gastrointestinal/Genitourinary: Reports: CRI; Denies: GERD, ESRD, other Neurologic/Psychiatric: Reports: dementia, other - schizophrenia; Denies: CVA, depression/anxiety, TIA Endocrine: Reports: hypothyroidism; Denies: DM, steroids, other HEENT: Denies: cataract (L), cataract (R), glaucoma, COUNCIL (L), COUNCIL (R), other Hematology/Immune: Reports: anemia Musculoskeletal/Integumentary: Reports: other - s/p BKA; Denies: OA, RA, DJD, DDD, edema Other: obesity Anesthesia Pre-op Phys. Exam Physician Exam Last Vital Signs Date Time Temp Pulse Resp B/P (MAP) Pulse Ox O2 Delivery O2 Flow Rate FiO2 01/31/19 12:00 98.4 62 16 171/97 100 Mechanical Ventilator 45 01/30/19 08:02 15.0 Constitutional: other Neurologic: other Cardiovascular: RRR, no M/R/G Respiratory: CTA Gastrointestinal: other Airway Exam Mallampati Score: Class III - intubated MO: full Teeth: missing Anesthesia Pre-op A/P Labs Hematology Test 01/31/19 03:50 White Blood Count 12.0 K/UL (4.8-10.8) H Red Blood Count 3.47 M/UL (4.20-5.40) L Hemoglobin 11.2 G/DL (12.0-16.0) L Hematocrit 33.5 % (37.0-47.0) L Mean Corpuscular Volume 97 FL (80-99) Mean Corpuscular Hemoglobin 32.3 PG (27.0-31.0) H Mean Corpuscular Hemoglobin Concent 33.5 G/DL (32.0-36.0) Red Cell Distribution Width 13.0 % (11.6-14.8) Platelet Count 194 K/UL (150-450) Mean Platelet Volume 6.5 FL (6.5-10.1) Neutrophils (%) (Auto) 64.3 % (45.0-75.0) Lymphocytes (%) (Auto) 19.5 % (20.0-45.0) L Monocytes (%) (Auto) 12.8 % (1.0-10.0) H Eosinophils (%) (Auto) 2.8 % (0.0-3.0) Basophils (%) (Auto) 0.5 % (0.0-2.0) Chemistry Test 01/31/19 03:50 Sodium Level 144 MMOL/L (136-145) Potassium Level 4.2 MMOL/L (3.5-5.1) Chloride Level 106 MMOL/L (98-107) Carbon Dioxide Level 27 MMOL/L (21-32) Anion Gap 11 mmol/L (5-15) Blood Urea Nitrogen 60 mg/dL (7-18) H Creatinine 5.0 MG/DL (0.55-1.30) H Estimat Glomerular Filtration Rate 8.9 mL/min (>60) Glucose Level 123 MG/DL (74-106) H Uric Acid 9.0 MG/DL (2.6-7.2) H Calcium Level 9.5 MG/DL (8.5-10.1) Phosphorus Level 6.6 MG/DL (2.5-4.9) H Magnesium Level 2.4 MG/DL (1.8-2.4) Iron Level 50 ug/dL (50-175) Total Iron Binding Capacity 198 ug/dL (250-450) L Percent Iron Saturation 25 % (15-50) Unsaturated Iron Binding 148 ug/dL (112-346) Ferritin 327 NG/ML (8-388) Total Bilirubin 0.5 MG/DL (0.2-1.0) Aspartate Amino Transf (AST/SGOT) 12 U/L (15-37) L Alanine Aminotransferase (ALT/SGPT) 15 U/L (12-78) Alkaline Phosphatase 56 U/L (46-116) Total Protein 7.2 G/DL (6.4-8.2) Albumin 3.0 G/DL (3.4-5.0) L Globulin 4.2 g/dL Albumin/Globulin Ratio 0.7 (1.0-2.7) L Vitamin B12 Level 443 PG/ML (193-986) Folate 17.9 NG/ML (8.6-58.9) Risk Assessment & Plan Assessment: ASA 4 Plan: GA with Elkin Reyes MD Jan 31, 2019 13:30
--- NOTE | 2019-01-31 13:40 | Operative Note - PDOC ---
Operative Note Operative Note Date of Operation/Procedure: Jan 31, 2019 Pre-op Diagnosis: Right hydronephrosis, renal failure Procedure: Cystoscopy, Right JJ stent placement, fluoroscopy Post-op Diagnosis: same Post-op Diagnosis: same as pre-op Operative Findings: consistent w/pre-op dx studies Surgeon: Edi [employer] Person: Gayatri Anesthesia: general Specimen: none Complications: none Condition: stable Estimated Blood Loss: none Drains: other - JJ stent Implant(s) used?: Yes - JJ stent Indications for Procedure R hydronephrosis/ worsening renal failure Fernando Daley M.D. Jan 31, 2019 13:40
--- NOTE | 2019-01-31 13:43 | Cardiac Electrophysiology PN ---
Assessment/Plan Assessment/Plan 1. Respiratory failure on the vent. EF 60%. On Abx and Vent AC 16, TV 550 On Lasix 40 iv bid 2. HTN On Lasix and clonidine. Gets prn Hydralazine 10mg iv q 2 3. Acute renal failure. Denise placing stent. 4. S/P Left BKA 5. Full code DW RN Subjective Subjective In ICU on the vent off the pressors. Scheduled for Ureteral stent placement by Dr. Walker Objective Last 24 Hour Vital Signs Date Time Temp Pulse Resp B/P (MAP) Pulse Ox O2 Delivery O2 Flow Rate FiO2 01/31/19 12:00 98.4 62 16 171/97 100 Mechanical Ventilator 45 01/31/19 12:00 45 01/31/19 12:00 62 01/31/19 12:00 Mechanical Ventilator 01/31/19 11:00 61 16 163/82 100 Mechanical Ventilator 45 01/31/19 10:35 61 16 100 Mechanical Ventilator 45 62 16 45 01/31/19 10:00 60 16 134/86 100 Mechanical Ventilator 45 01/31/19 09:02 59 16 45 01/31/19 09:00 74 17 208/97 100 Mechanical Ventilator 45 01/31/19 08:00 Mechanical Ventilator 01/31/19 08:00 67 01/31/19 08:00 45 01/31/19 08:00 62 16 118/71 100 Mechanical Ventilator 45 01/31/19 07:30 98.6 61 16 160/87 100 45 01/31/19 07:16 84 16 100 Mechanical Ventilator 45 83 16 45 01/31/19 07:00 86 16 149/82 100 45 01/31/19 06:30 71 16 179/87 100 45 01/31/19 06:00 72 16 133/86 100 45 01/31/19 05:30 96 17 181/92 100 45 01/31/19 05:00 96 22 188/89 100 45 01/31/19 04:54 83 20 45 01/31/19 04:30 69 23 173/93 100 45 01/31/19 04:00 45 01/31/19 04:00 77 01/31/19 04:00 58 17 197/91 100 45 01/31/19 04:00 Mechanical Ventilator 01/31/19 03:53 215/85 01/31/19 03:48 57 18 215/85 100 45 01/31/19 03:30 60 16 217/89 100 45 01/31/19 03:23 63 16 100 Mechanical Ventilator 45 01/31/19 03:13 61 16 100 Mechanical Ventilator 45 61 16 45 01/31/19 03:00 98.8 59 16 204/91 100 45 01/31/19 02:00 51 16 117/72 100 45 01/31/19 01:12 52 16 45 01/31/19 01:00 65 16 153/75 100 45 01/31/19 00:30 65 16 153/75 100 45 01/31/19 00:00 56 01/31/19 00:00 45 01/31/19 00:00 Mechanical Ventilator 01/31/19 00:00 54 16 118/67 100 45 01/30/19 23:30 56 16 105/62 100 45 01/30/19 23:22 56 16 100 Mechanical Ventilator 45 01/30/19 23:12 56 16 99 Mechanical Ventilator 45 56 16 45 01/30/19 23:00 56 16 122/74 100 45 01/30/19 22:30 53 16 190/80 100 45 01/30/19 22:00 53 16 195/85 100 45 01/30/19 22:00 16 Mechanical Ventilator 45 01/30/19 21:30 55 16 217/89 100 45 01/30/19 21:03 52 16 45 01/30/19 21:00 16 Mechanical Ventilator 45 01/30/19 21:00 51 16 137/69 100 45 01/30/19 20:30 52 16 121/74 100 45 01/30/19 20:00 Mechanical Ventilator 01/30/19 20:00 52 16 132/71 100 45 01/30/19 20:00 16 Mechanical Ventilator 45 01/30/19 20:00 52 01/30/19 20:00 45 01/30/19 19:30 52 16 188/88 100 45 01/30/19 19:26 52 16 100 Mechanical Ventilator 45 01/30/19 19:14 59 16 100 Mechanical Ventilator 45 59 16 45 01/30/19 19:00 98.5 53 16 136/79 100 45 01/30/19 19:00 16 Mechanical Ventilator 45 01/30/19 18:30 53 16 182/85 100 01/30/19 18:00 54 16 147/74 100 45 01/30/19 18:00 16 Mechanical Ventilator 45 01/30/19 17:42 142/75 01/30/19 17:30 53 16 142/75 100 45 01/30/19 17:00 53 16 142/75 100 45 01/30/19 17:00 16 Mechanical Ventilator 45 01/30/19 16:42 66 16 45 01/30/19 16:30 53 16 142/75 100 45 01/30/19 16:00 99.5 53 16 142/75 100 45 01/30/19 16:00 16 Mechanical Ventilator 45 01/30/19 16:00 Mechanical Ventilator 01/30/19 16:00 51 01/30/19 16:00 45 01/30/19 15:30 53 16 142/75 100 45 01/30/19 15:00 52 16 166/76 100 45 01/30/19 15:00 16 Mechanical Ventilator 45 01/30/19 14:50 54 16 100 Mechanical Ventilator 45 58 16 45 01/30/19 14:30 53 16 134/68 100 45 01/30/19 14:00 16 Mechanical Ventilator 45 01/30/19 14:00 53 16 153/76 100 45 Intake and Output 01/30/19 01/31/19 19:00 07:00 Intake Total 626 ml 661 ml Output Total 1900 ml 1600 ml Balance -1274 ml -939 ml Intake Oral 0 ml 0 ml IV Total 506 ml 541 ml Other 120 ml 120 ml Output Urine Total 1900 ml 1600 ml # Bowel Movements 1 Laboratory Tests Test 01/31/19 03:50 White Blood Count 12.0 K/UL (4.8-10.8) H Red Blood Count 3.47 M/UL (4.20-5.40) L Hemoglobin 11.2 G/DL (12.0-16.0) L Hematocrit 33.5 % (37.0-47.0) L Mean Corpuscular Volume 97 FL (80-99) Mean Corpuscular Hemoglobin 32.3 PG (27.0-31.0) H Mean Corpuscular Hemoglobin Concent 33.5 G/DL (32.0-36.0) Red Cell Distribution Width 13.0 % (11.6-14.8) Platelet Count 194 K/UL (150-450) Mean Platelet Volume 6.5 FL (6.5-10.1) Neutrophils (%) (Auto) 64.3 % (45.0-75.0) Lymphocytes (%) (Auto) 19.5 % (20.0-45.0) L Monocytes (%) (Auto) 12.8 % (1.0-10.0) H Eosinophils (%) (Auto) 2.8 % (0.0-3.0) Basophils (%) (Auto) 0.5 % (0.0-2.0) Sodium Level 144 MMOL/L (136-145) Potassium Level 4.2 MMOL/L (3.5-5.1) Chloride Level 106 MMOL/L (98-107) Carbon Dioxide Level 27 MMOL/L (21-32) Anion Gap 11 mmol/L (5-15) Blood Urea Nitrogen 60 mg/dL (7-18) H Creatinine 5.0 MG/DL (0.55-1.30) H Estimat Glomerular Filtration Rate 8.9 mL/min (>60) Glucose Level 123 MG/DL (74-106) H Uric Acid 9.0 MG/DL (2.6-7.2) H Calcium Level 9.5 MG/DL (8.5-10.1) Phosphorus Level 6.6 MG/DL (2.5-4.9) H Magnesium Level 2.4 MG/DL (1.8-2.4) Iron Level 50 ug/dL (50-175) Total Iron Binding Capacity 198 ug/dL (250-450) L Percent Iron Saturation 25 % (15-50) Unsaturated Iron Binding 148 ug/dL (112-346) Ferritin 327 NG/ML (8-388) Total Bilirubin 0.5 MG/DL (0.2-1.0) Aspartate Amino Transf (AST/SGOT) 12 U/L (15-37) L Alanine Aminotransferase (ALT/SGPT) 15 U/L (12-78) Alkaline Phosphatase 56 U/L (46-116) Total Protein 7.2 G/DL (6.4-8.2) Albumin 3.0 G/DL (3.4-5.0) L Globulin 4.2 g/dL Albumin/Globulin Ratio 0.7 (1.0-2.7) L Vitamin B12 Level 443 PG/ML (193-986) Folate 17.9 NG/ML (8.6-58.9) Microbiology Date/Time Source Procedure Growth Status 01/29/19 14:30 Blood Blood Culture - Preliminary Staphylococcus Sp Coag Neg Resulted 01/29/19 14:15 Blood Blood Culture - Preliminary NO GROWTH AFTER 24 HOURS Resulted 01/30/19 05:00 Sputum Induced Gram Stain - Final Resulted 01/30/19 05:00 Sputum Induced Sputum Culture - Preliminary NO GROWTH Resulted 01/29/19 17:40 Nasal Nares MRSA Culture - Final NO METHICILLIN RESISTANT STAPH AUREUS... Complete 01/29/19 14:50 Nasal Nares - Final Complete 01/29/19 14:50 Nasal Nares - Final Complete 01/29/19 14:55 Urine,Clean Catch Urine Culture - Preliminary NO GROWTH AFTER 24 HOURS Resulted 01/29/19 17:40 Rectum - Final NO CARBAPENEM-RESISTANT ENTEROBACTERI... Complete 01/29/19 17:40 Rectum VRE Culture - Final NO VANCOMYCIN RESISTANT ENTEROCOCCUS ... Complete Objective General Appearance: No acute distress HEENT: No JVD. Orally intubated on the Vent Respiratory/Chest: lungs clear Cardiovascular: RRR Abdomen: soft, non tender Extremities: no edema, other - left BELINDAA Justo Rosales MD Jan 31, 2019 13:43
--- NOTE | 2019-01-31 14:25 | NUR ---
NURSE NOTES: Patient returned from OR during break, unable to reach OR for report.Will try back later. No significant change in condition. Patient turned and repositioned for comfort and skin management. HOB elevated to prevent aspiration.Will continue to monitor
--- NOTE | 2019-01-31 15:11 | Nephrology Progress Note ---
Assessment/Plan Problem List: (1) Acute renal failure (2) Respiratory failure (3) HTN (hypertension) (4) Schizophrenia (5) Hydronephrosis Assessment Acute on Chronic Renal Failure ? kidney mass Right hydronephrosis Ventilator Dependent Respiratory failure Left lower lobe pulmonary infiltrate Urinary tract infection ESBL UTI from penitentiary Dehydration Seizure disorder on Clonazepam and Gabapentin Schizophrenia Hypertension Obesity Plan patient had right kidney stent Stop Lasix Stop all min altering meds PRN versed for sedation avoid nephrotoxics monitor renal parametes per orders Objective Objective Last 24 Hour Vital Signs Date Time Temp Pulse Resp B/P (MAP) Pulse Ox O2 Delivery O2 Flow Rate FiO2 01/31/19 14:31 189/84 01/31/19 12:00 98.4 62 16 171/97 100 Mechanical Ventilator 45 01/31/19 12:00 45 01/31/19 12:00 62 01/31/19 12:00 Mechanical Ventilator 01/31/19 11:00 61 16 163/82 100 Mechanical Ventilator 45 01/31/19 10:35 61 16 100 Mechanical Ventilator 45 62 16 45 01/31/19 10:00 60 16 134/86 100 Mechanical Ventilator 45 01/31/19 09:02 59 16 45 01/31/19 09:00 74 17 208/97 100 Mechanical Ventilator 45 01/31/19 08:00 Mechanical Ventilator 01/31/19 08:00 67 01/31/19 08:00 45 01/31/19 08:00 62 16 118/71 100 Mechanical Ventilator 45 01/31/19 07:30 98.6 61 16 160/87 100 45 01/31/19 07:16 84 16 100 Mechanical Ventilator 45 83 16 45 01/31/19 07:00 86 16 149/82 100 45 01/31/19 06:30 71 16 179/87 100 45 01/31/19 06:00 72 16 133/86 100 45 01/31/19 05:30 96 17 181/92 100 45 01/31/19 05:00 96 22 188/89 100 45 01/31/19 04:54 83 20 45 01/31/19 04:30 69 23 173/93 100 45 01/31/19 04:00 45 01/31/19 04:00 77 01/31/19 04:00 58 17 197/91 100 45 01/31/19 04:00 Mechanical Ventilator 01/31/19 03:53 215/85 114/19 03:48 57 18 215/85 100 45 01/31/19 03:30 60 16 217/89 100 45 01/31/19 03:23 63 16 100 Mechanical Ventilator 45 01/31/19 03:13 61 16 100 Mechanical Ventilator 45 61 16 45 01/31/19 03:00 98.8 59 16 204/91 100 45 01/31/19 02:00 51 16 117/72 100 45 01/31/19 01:12 52 16 45 01/31/19 01:00 65 16 153/75 100 45 01/31/19 00:30 65 16 153/75 100 45 01/31/19 00:00 56 01/31/19 00:00 45 01/31/19 00:00 Mechanical Ventilator 01/31/19 00:00 54 16 118/67 100 45 01/30/19 23:30 56 16 105/62 100 45 01/30/19 23:22 56 16 100 Mechanical Ventilator 45 01/30/19 23:12 56 16 99 Mechanical Ventilator 45 56 16 45 01/30/19 23:00 56 16 122/74 100 45 01/30/19 22:30 53 16 190/80 100 45 01/30/19 22:00 53 16 195/85 100 45 01/30/19 22:00 16 Mechanical Ventilator 45 01/30/19 21:30 55 16 217/89 100 45 01/30/19 21:03 52 16 45 01/30/19 21:00 16 Mechanical Ventilator 45 01/30/19 21:00 51 16 137/69 100 45 01/30/19 20:30 52 16 121/74 100 45 01/30/19 20:00 Mechanical Ventilator 01/30/19 20:00 52 16 132/71 100 45 01/30/19 20:00 16 Mechanical Ventilator 45 01/30/19 20:00 52 01/30/19 20:00 45 01/30/19 19:30 52 16 188/88 100 45 01/30/19 19:26 52 16 100 Mechanical Ventilator 45 01/30/19 19:14 59 16 100 Mechanical Ventilator 45 59 16 45 01/30/19 19:00 98.5 53 16 136/79 100 45 01/30/19 19:00 16 Mechanical Ventilator 45 01/30/19 18:30 53 16 182/85 100 01/30/19 18:00 54 16 147/74 100 45 01/30/19 18:00 16 Mechanical Ventilator 45 01/30/19 17:42 142/75 01/30/19 17:30 53 16 142/75 100 45 01/30/19 17:00 53 16 142/75 100 45 01/30/19 17:00 16 Mechanical Ventilator 45 01/30/19 16:42 66 16 45 01/30/19 16:30 53 16 142/75 100 45 01/30/19 16:00 99.5 53 16 142/75 100 45 01/30/19 16:00 16 Mechanical Ventilator 45 01/30/19 16:00 Mechanical Ventilator 01/30/19 16:00 51 01/30/19 16:00 45 01/30/19 15:30 53 16 142/75 100 45 Intake and Output 01/30/19 01/31/19 19:00 07:00 Intake Total 626 ml 661 ml Output Total 1900 ml 1600 ml Balance -1274 ml -939 ml Intake Oral 0 ml 0 ml IV Total 506 ml 541 ml Other 120 ml 120 ml Output Urine Total 1900 ml 1600 ml # Bowel Movements 1 Laboratory Tests 01/31/19 03:50: White Blood Count 12.0H, Red Blood Count 3.47L, Hemoglobin 11.2L, Hematocrit 33.5L, Mean Corpuscular Volume 97, Mean Corpuscular Hemoglobin 32.3H, Mean Corpuscular Hemoglobin Concent 33.5, Red Cell Distribution Width 13.0, Platelet Count 194, Mean Platelet Volume 6.5, Neutrophils (%) (Auto) 64.3, Lymphocytes (% ) (Auto) 19.5L, Monocytes (%) (Auto) 12.8H, Eosinophils (%) (Auto) 2.8, Basophils (%) (Auto) 0.5, Sodium Level 144, Potassium Level 4.2, Chloride Level 106, Carbon Dioxide Level 27, Anion Gap 11, Blood Urea Nitrogen 60H, Creatinine 5.0H, Estimat Glomerular Filtration Rate 8.9, Glucose Level 123H, Uric Acid 9.0H , Calcium Level 9.5, Phosphorus Level 6.6H, Magnesium Level 2.4, Iron Level 50, Total Iron Binding Capacity 198L, Percent Iron Saturation 25, Unsaturated Iron Binding 148, Ferritin 327, Total Bilirubin 0.5, Aspartate Amino Transf (AST/SGOT ) 12L, Alanine Aminotransferase (ALT/SGPT) 15, Alkaline Phosphatase 56, Total Protein 7.2, Albumin 3.0L, Globulin 4.2, Albumin/Globulin Ratio 0.7L, Vitamin B12 Level 443, Folate 17.9 Height (Feet): 5 Height (Inches): 4.00 Weight (Pounds): 224 Derrell Hatch MD Jan 31, 2019 15:11
--- NOTE | 2019-01-31 15:16 | Diagnostic Imaging Report ---
Indication: Intraoperative imaging COMPARISON: None FINDINGS: Multiple fluoroscopic images were obtained intraoperatively. Fluoroscopic time 8.9 seconds. [employer] film shows a left ureteral stent. A new stent was placed on the right with wire manipulation noted. Final images show bilateral ureteral stents. IMPRESSION: Intraoperative imaging as described above
--- NOTE | 2019-01-31 16:06 | Hematology/Onc Progress Note ---
Assessment/Plan Assessment/Plan Assessment/Plan: # Anemia of chronic disease due to underlying chronic medical issues, multifactorial --> Anemia workup has been ordered, rule out gi bleed -> Cw acd --> No evidence of hemolysis is noted, peripheral smear has been reviewed. --> Hgb goal >7. Transfuse prn. --> Epogen or iron at this time is not particularly indicated --> Medications have been reviewed --> low threshold for gi evaluation in case has occult + --> hgb trend 11.7-->10.7 # Leukocytosis is likely related to infection, reactive process, on abx at this time, potentially had acute pyelonephritis on presentation, likely esbl uti --> have reviewed peripheral smear and bandemia/neutrophilia noted --> continue antibiotics if they have been started by ID team --> monitor for resolution --> trend as needed # Left kidney mass -- 5 cm low-attenuation lesion demonstrating slightly higher than normal fluid attenuation coming off of the upper pole left kidney --> likely represents a complex possibly proteinaceous cyst, but necrotic solid mass also possible. # Dehydration --> ivf have been started --> anti-nausea meds started # S/P BKA (below knee amputation) unilateral --> left leg s/p amputation # Anxiety --> as per psych # Left hydronephrosis --> per uro --> 11.4 Cystoscopy, Right JJ stent placement, fluoroscopy # Resp failure s/p intubation # Dvt ppx heparin sq The timing of this note does not necessarily reflect the time of the patient was seen. Greatly appreciate consultation! Subjective HEENT: Denies: no symptoms, eye pain, blurred vision, tearing, double vision, ear pain, ear discharge, nose pain, nose congestion, throat pain, throat swelling, mouth pain, mouth swelling, other Cardiovascular: Denies: no symptoms, chest pain, edema, irregular heart rate, lightheadedness, palpitations, syncope, other Respiratory: Denies: no symptoms, cough, shortness of breath, SOB with excertion, SOB at rest, sputum, wheezing, other Gastrointestinal/Abdominal: Denies: no symptoms, abdomen distended, abdominal pain, black stools, tarry stools, blood in stool, constipated, diarrhea, difficulty swallowing, nausea, poor appetite, poor fluid intake, rectal bleeding , vomiting, other Genitourinary: Denies: no symptoms, burning, discharge, frequency, flank pain, hematuria, incontinence, pain, urgency, other Neurologic/Psychiatric: Denies: no symptoms, anxiety, depressed, emotional problems, headache, numbness, paresthesia, pre-existing deficit, seizure, tingling, tremors, weakness, other Endocrine: Denies: no symptoms, excessive sweating, flushing, intolerance to cold, intolerance to heat, increased hunger, increased thirst, increased urine, unexplained weight gain, unexplained weight loss, other Hematologic/Lymphatic: Denies: no symptoms, anemia, easy bleeding, easy bruising, adenopathy, other Allergies: Coded Allergies: Grits (Unverified Allergy, Unknown, 07/06/17) [place] (Unverified Allergy, Unknown, 07/06/17) Subjective 01/31: is for stent placement today, no events, labs noted Objective Objective Current Medications Medications (Trade) Dose Ordered Sig/William Route PRN Reason Start Time Stop Time Status Last Admin Dose Admin Acetaminophen (Tylenol) 650 mg Q6H PRN ORAL Fever (temp>100.5F) 01/29/19 18:30 02/28/19 18:29 Albuterol/ Ipratropium (Albuterol/ Ipratropium) 3 ml Q4HRT HHN 01/29/19 23:00 02/03/19 22:59 01/31/19 15:32 Bisacodyl (Dulcolax) 10 mg DAILYPRN PRN RECTAL Constipation 01/29/19 20:00 02/28/19 19:59 Chlorhexidine Gluconate (Genevieve-Hex 2%) 1 applic DAILY@1999 TOPIC 01/29/19 20:00 02/28/19 19:59 01/30/19 20:02 Clonidine HCl (Catapres Tab) 0.1 mg Q8HR NG 01/31/19 14:00 03/01/19 08:59 01/31/19 14:31 Dextrose (Dextrose 50%) 25 ml Q30M PRN IV Hypoglycemia 01/29/19 18:30 02/28/19 18:29 Dextrose (Dextrose 50%) 50 ml Q30M PRN IV Hypoglycemia 01/29/19 18:30 02/28/19 18:29 Dextrose/Sodium Chloride 1,000 ml @ 75 mls/hr [id number] IV 01/31/19 07:52 03/02/19 07:51 01/31/19 08:39 Docusate Sodium (Colace) 250 mg DAILY ORAL 01/30/19 09:00 03/01/19 08:59 01/31/19 08:23 Heparin Sodium (Porcine) (Heparin 5000 units/ml) 5,000 units EVERY 12 HOURS SUBQ 01/30/19 09:00 03/01/19 08:59 01/31/19 08:29 Heparin Sodium/ Sodium Chloride (Heparin 1000 units/500ml Premix) 1,000 unit ONCE PRN IV PICC PLACEMENT 01/29/19 19:15 01/31/19 23:59 Hydralazine HCl (Apresoline) 10 mg Q2H PRN IV For High Blood Pressure 01/31/19 15:45 03/02/19 15:44 Hydromorphone HCl (Dilaudid) 0.5 mg Q2H PRN IVP For Pain 01/29/19 18:30 02/05/19 18:29 01/29/19 20:15 Lidocaine HCl (Xylocaine 1% 30ml) 30 ml ONCE PRN INJ PICC PLACEMENT 01/29/19 19:15 01/31/19 23:59 Meropenem 500 mg/ Sodium Chloride 55 ml @ 110 mls/hr Q12HR@0800,2000 IVPB 01/29/19 20:00 02/03/19 19:59 01/31/19 08:42 Midazolam HCl 100 ml @ 0 mls/hr Q24H PRN IV Restlessness 01/29/19 19:00 02/05/19 18:59 01/30/19 08:02 Pantoprazole (Protonix) 40 mg EVERY 12 HOURS IVP 01/31/19 21:00 03/02/19 20:59 Last 24 Hour Vital Signs Date Time Temp Pulse Resp B/P (MAP) Pulse Ox O2 Delivery O2 Flow Rate FiO2 01/31/19 15:20 73 16 100 Mechanical Ventilator 45 74 16 45 01/31/19 15:00 61 16 115/79 100 Mechanical Ventilator 45 01/31/19 14:31 189/84 01/31/19 12:00 98.4 62 16 171/97 100 Mechanical Ventilator 45 01/31/19 12:00 45 01/31/19 12:00 62 01/31/19 12:00 Mechanical Ventilator 01/31/19 11:00 61 16 163/82 100 Mechanical Ventilator 45 01/31/19 10:35 61 16 100 Mechanical Ventilator 45 62 16 45 01/31/19 10:00 60 16 134/86 100 Mechanical Ventilator 45 01/31/19 09:02 59 16 45 01/31/19 09:00 74 17 208/97 100 Mechanical Ventilator 45 01/31/19 08:00 Mechanical Ventilator 01/31/19 08:00 67 01/31/19 08:00 45 01/31/19 08:00 62 16 118/71 100 Mechanical Ventilator 45 01/31/19 07:30 98.6 61 16 160/87 100 45 01/31/19 07:16 84 16 100 Mechanical Ventilator 45 83 16 45 01/31/19 07:00 86 16 149/82 100 45 01/31/19 06:30 71 16 179/87 100 45 01/31/19 06:00 72 16 133/86 100 45 01/31/19 05:30 96 17 181/92 100 45 01/31/19 05:00 96 22 188/89 100 45 01/31/19 04:54 83 20 45 01/31/19 04:30 69 23 173/93 100 45 01/31/19 04:00 45 01/31/19 04:00 77 01/31/19 04:00 58 17 197/91 100 45 01/31/19 04:00 Mechanical Ventilator 01/31/19 03:53 215/85 01/31/19 03:48 57 18 215/85 100 45 01/31/19 03:30 60 16 217/89 100 45 01/31/19 03:23 63 16 100 Mechanical Ventilator 45 01/31/19 03:13 61 16 100 Mechanical Ventilator 45 61 16 45 01/31/19 03:00 98.8 59 16 204/91 100 45 01/31/19 02:00 51 16 117/72 100 45 01/31/19 01:12 52 16 45 01/31/19 01:00 65 16 153/75 100 45 01/31/19 00:30 65 16 153/75 100 45 01/31/19 00:00 56 01/31/19 00:00 45 01/31/19 00:00 Mechanical Ventilator 01/31/19 00:00 54 16 118/67 100 45 01/30/19 23:30 56 16 105/62 100 45 01/30/19 23:22 56 16 100 Mechanical Ventilator 45 01/30/19 23:12 56 16 99 Mechanical Ventilator 45 56 16 45 01/30/19 23:00 56 16 122/74 100 45 01/30/19 22:30 53 16 190/80 100 45 01/30/19 22:00 53 16 195/85 100 45 01/30/19 22:00 16 Mechanical Ventilator 45 01/30/19 21:30 55 16 217/89 100 45 01/30/19 21:03 52 16 45 01/30/19 21:00 16 Mechanical Ventilator 45 01/30/19 21:00 51 16 137/69 100 45 01/30/19 20:30 52 16 121/74 100 45 01/30/19 20:00 Mechanical Ventilator 01/30/19 20:00 52 16 132/71 100 45 01/30/19 20:00 16 Mechanical Ventilator 45 01/30/19 20:00 52 01/30/19 20:00 45 01/30/19 19:30 52 16 188/88 100 45 01/30/19 19:26 52 16 100 Mechanical Ventilator 45 01/30/19 19:14 59 16 100 Mechanical Ventilator 45 59 16 45 01/30/19 19:00 98.5 53 16 136/79 100 45 01/30/19 19:00 16 Mechanical Ventilator 45 01/30/19 18:30 53 16 182/85 100 01/30/19 18:00 54 16 147/74 100 45 01/30/19 18:00 16 Mechanical Ventilator 45 01/30/19 17:42 142/75 01/30/19 17:30 53 16 142/75 100 45 01/30/19 17:00 53 16 142/75 100 45 01/30/19 17:00 16 Mechanical Ventilator 45 01/30/19 16:42 66 16 45 01/30/19 16:30 53 16 142/75 100 45 01/30/19 16:00 99.5 53 16 142/75 100 45 01/30/19 16:00 16 Mechanical Ventilator 45 01/30/19 16:00 Mechanical Ventilator 01/30/19 16:00 51 01/30/19 16:00 45 01/30/19 15:30 53 16 142/75 100 45 01/30/19 15:00 52 16 166/76 100 45 01/30/19 15:00 16 Mechanical Ventilator 45 01/30/19 14:50 54 16 100 Mechanical Ventilator 45 58 16 45 01/30/19 14:30 53 16 134/68 100 45 01/30/19 14:00 16 Mechanical Ventilator 45 01/30/19 14:00 53 16 153/76 100 45 01/30/19 13:30 56 16 193/84 100 45 01/30/19 13:02 64 16 45 01/30/19 13:00 16 Mechanical Ventilator 45 01/30/19 13:00 52 16 129/68 100 45 01/30/19 12:30 54 16 126/69 100 45 01/30/19 12:00 Mechanical Ventilator 01/30/19 12:00 16 Mechanical Ventilator 45 01/30/19 12:00 99.1 54 16 124/68 100 45 01/30/19 12:00 45 01/30/19 12:00 53 01/30/19 11:30 53 16 153/73 100 45 01/30/19 11:00 52 16 136/70 100 45 01/30/19 11:00 15 Mechanical Ventilator 45 01/30/19 10:43 52 16 100 Mechanical Ventilator 45 52 16 45 01/30/19 10:30 52 16 129/67 100 50 01/30/19 10:00 16 Mechanical Ventilator 45 01/30/19 10:00 51 16 142/77 100 50 01/30/19 09:34 55 16 174/84 100 50 01/30/19 09:14 65 16 50 01/30/19 09:00 55 16 130/70 100 50 01/30/19 08:37 16 Mechanical Ventilator 50 01/30/19 08:32 98.1 01/30/19 08:30 52 16 136/74 100 50 01/30/19 08:19 116/68 01/30/19 08:02 16 Mechanical Ventilator 15.0 50 01/30/19 08:00 50 01/30/19 08:00 52 16 116/68 100 50 01/30/19 08:00 Mechanical Ventilator 01/30/19 08:00 52 01/30/19 07:48 60 16 99 Mechanical Ventilator 50 51 16 50 01/30/19 07:30 51 16 150/74 100 50 01/30/19 07:00 16 Mechanical Ventilator 50 01/30/19 07:00 98.1 60 16 158/88 100 50 01/30/19 06:30 51 16 132/72 100 50 01/30/19 06:00 16 Mechanical Ventilator 50 01/30/19 06:00 51 16 142/75 99 Mechanical Ventilator 50 01/30/19 05:30 50 16 156/75 100 Mechanical Ventilator 50 01/30/19 05:16 52 16 Mechanical Ventilator 50 01/30/19 05:00 52 16 149/77 99 Mechanical Ventilator 50 01/30/19 05:00 16 Mechanical Ventilator 50 01/30/19 04:30 52 16 149/75 99 Mechanical Ventilator 50 01/30/19 04:00 Mechanical Ventilator 01/30/19 04:00 50 01/30/19 04:00 50 01/30/19 04:00 16 Mechanical Ventilator 50 01/30/19 04:00 97.3 53 16 163/75 99 Mechanical Ventilator 50 01/30/19 03:30 52 16 192/82 98 Mechanical Ventilator 50 01/30/19 03:00 17 Mechanical Ventilator 50 01/30/19 03:00 62 16 211/89 100 Mechanical Ventilator 50 01/30/19 02:53 50 16 99 Mechanical Ventilator 50 50 16 50 01/30/19 02:30 49 16 162/80 100 Mechanical Ventilator 50 01/30/19 02:00 49 16 158/80 100 Mechanical Ventilator 50 01/30/19 02:00 18 Mechanical Ventilator 50 01/30/19 01:30 48 16 147/75 100 Mechanical Ventilator 50 01/30/19 01:09 50 16 Mechanical Ventilator 50 01/30/19 01:00 16 Mechanical Ventilator 50 01/30/19 01:00 48 16 138/70 99 Mechanical Ventilator 50 01/30/19 00:30 51 16 130/73 99 Mechanical Ventilator 50 01/30/19 00:00 51 01/30/19 00:00 50 01/30/19 00:00 98.3 54 16 183/85 99 Mechanical Ventilator 50 01/30/19 00:00 16 Mechanical Ventilator 50 01/30/19 00:00 Mechanical Ventilator 01/29/19 23:30 52 16 131/71 99 Mechanical Ventilator 50 01/29/19 23:25 52 16 99 Mechanical Ventilator 50 52 16 50 01/29/19 23:00 50 16 136/79 99 Mechanical Ventilator 50 01/29/19 23:00 16 Mechanical Ventilator 50 01/29/19 22:30 50 16 155/80 100 Mechanical Ventilator 40 01/29/19 22:00 53 19 191/167 100 Mechanical Ventilator 40 01/29/19 21:54 16 Mechanical Ventilator 50 01/29/19 21:30 51 16 143/75 99 Mechanical Ventilator 40 01/29/19 21:24 51 16 40 01/29/19 21:00 52 24 183/89 98 Mechanical Ventilator 01/29/19 21:00 16 Mechanical Ventilator 50 01/29/19 20:49 40 01/29/19 20:45 52 19 171/81 98 Mechanical Ventilator 40 01/29/19 20:30 56 19 171/87 98 Mechanical Ventilator 40 01/29/19 20:25 55 16 162/100 100 Mechanical Ventilator 40 01/29/19 20:00 18 Mechanical Ventilator 40 01/29/19 20:00 56 01/29/19 19:45 53 16 99 01/29/19 19:45 Mechanical Ventilator 01/29/19 19:30 53 16 99 01/29/19 19:15 53 16 168/85 99 01/29/19 19:00 16 Mechanical Ventilator 40 01/29/19 19:00 97.7 55 16 195/82 99 Mechanical Ventilator 40 01/29/19 18:55 55 16 40 01/29/19 17:30 86 16 40 01/29/19 16:57 98.6 62 16 163/85 97 Mechanical Ventilator 40 62 01/29/19 16:08 20 Mechanical Ventilator 40 Intake and Output 01/30/19 01/31/19 19:00 07:00 Intake Total 626 ml 661 ml Output Total 1900 ml 1600 ml Balance -1274 ml -939 ml Intake Oral 0 ml 0 ml IV Total 506 ml 541 ml Other 120 ml 120 ml Output Urine Total 1900 ml 1600 ml # Bowel Movements 1 Labs Test 01/29/19 14:15 01/29/19 14:55 01/29/19 15:00 01/29/19 21:00 White Blood Count 14.1 K/UL (4.8-10.8) Red Blood Count 3.66 M/UL (4.20-5.40) Hemoglobin 11.7 G/DL (12.0-16.0) Hematocrit 35.8 % (37.0-47.0) Mean Corpuscular Volume 98 FL (80-99) Mean Corpuscular Hemoglobin 31.8 PG (27.0-31.0) Mean Corpuscular Hemoglobin Concent 32.6 G/DL (32.0-36.0) Red Cell Distribution Width 13.3 % (11.6-14.8) Platelet Count 220 K/UL (150-450) Mean Platelet Volume 6.5 FL (6.5-10.1) Neutrophils (%) (Auto) 70.9 % (45.0-75.0) Lymphocytes (%) (Auto) 15.1 % (20.0-45.0) Monocytes (%) (Auto) 10.3 % (1.0-10.0) Eosinophils (%) (Auto) 3.2 % (0.0-3.0) Basophils (%) (Auto) 0.5 % (0.0-2.0) Prothrombin Time 10.0 SEC (9.30-11.50) Prothromb Time International Ratio 0.9 (0.9-1.1) Activated Partial Thromboplast Time 27 SEC (23-33) Sodium Level 147 MMOL/L (136-145) Potassium Level 4.4 MMOL/L (3.5-5.1) Chloride Level 110 MMOL/L (98-107) Carbon Dioxide Level 26 MMOL/L (21-32) Anion Gap 11 mmol/L (5-15) Blood Urea Nitrogen 64 mg/dL (7-18) Creatinine 4.6 MG/DL (0.55-1.30) Estimat Glomerular Filtration Rate 9.8 mL/min (>60) Glucose Level 96 MG/DL (74-106) Lactic Acid Level 0.50 mmol/L (0.4-2.0) Calcium Level 9.2 MG/DL (8.5-10.1) Magnesium Level 2.6 MG/DL (1.8-2.4) Total Bilirubin 0.4 MG/DL (0.2-1.0) Aspartate Amino Transf (AST/SGOT) 13 U/L (15-37) Alanine Aminotransferase (ALT/SGPT) 14 U/L (12-78) Alkaline Phosphatase 61 U/L (46-116) Total Creatine Kinase 57 U/L (26-308) Troponin I 0.000 ng/mL (0.000-0.056) Pro-B-Type Natriuretic Peptide 2019 pg/mL (0-125) Total Protein 6.9 G/DL (6.4-8.2) Albumin 3.1 G/DL (3.4-5.0) Globulin 3.8 g/dL Albumin/Globulin Ratio 0.8 (1.0-2.7) Amylase Level 58 U/L (25-115) Lipase 80 U/L (73-393) Urine Color Pale yellow Urine Appearance Clear Urine pH 5 (4.5-8.0) Urine Specific [place] 1.010 (1.005-1.035) Urine Protein 2+ (NEGATIVE) Urine Glucose (UA) Negative (NEGATIVE) Urine Ketones Negative (NEGATIVE) Urine Blood 4+ (NEGATIVE) Urine Nitrite Negative (NEGATIVE) Urine Bilirubin Negative (NEGATIVE) Urine Urobilinogen Normal MG/DL (0.0-1.0) Urine Leukocyte Esterase 3+ (NEGATIVE) Urine RBC 15-20 /HPF (0 - 2) Urine WBC 15-20 /HPF (0 - 2) Urine Squamous Epithelial Cells Occasional /LPF Urine Bacteria Occasional /HPF (NONE) Arterial Blood pH 7.331 (7.350-7.450) 7.425 (7.350-7.450) Arterial Blood Partial Pressure CO2 45.0 mmHg (35.0-45.0) 36.2 mmHg (35.0-45.0) Arterial Blood Partial Pressure O2 60.3 mmHg (75.0-100.0) 74.5 mmHg (75.0-100.0) Arterial Blood HCO3 23.2 mmol/L (22.0-26.0) 23.2 mmol/L (22.0-26.0) Arterial Blood Oxygen Saturation 89.9 % (95-100) 94.5 % (95-100) Arterial Blood Base Excess -2.7 (-2-2) -0.8 (-2-2) Miguel Angel Test Positive Positive Test 01/30/19 05:45 01/31/19 03:50 White Blood Count 13.3 K/UL (4.8-10.8) 12.0 K/UL (4.8-10.8) Red Blood Count 3.32 M/UL (4.20-5.40) 3.47 M/UL (4.20-5.40) Hemoglobin 10.7 G/DL (12.0-16.0) 11.2 G/DL (12.0-16.0) Hematocrit 32.4 % (37.0-47.0) 33.5 % (37.0-47.0) Mean Corpuscular Volume 97 FL (80-99) 97 FL (80-99) Mean Corpuscular Hemoglobin 32.1 PG (27.0-31.0) 32.3 PG (27.0-31.0) Mean Corpuscular Hemoglobin Concent 32.9 G/DL (32.0-36.0) 33.5 G/DL (32.0-36.0) Red Cell Distribution Width 13.2 % (11.6-14.8) 13.0 % (11.6-14.8) Platelet Count 197 K/UL (150-450) 194 K/UL (150-450) Mean Platelet Volume 6.9 FL (6.5-10.1) 6.5 FL (6.5-10.1) Neutrophils (%) (Auto) 64.9 % (45.0-75.0) 64.3 % (45.0-75.0) Lymphocytes (%) (Auto) 16.4 % (20.0-45.0) 19.5 % (20.0-45.0) Monocytes (%) (Auto) 15.0 % (1.0-10.0) 12.8 % (1.0-10.0) Eosinophils (%) (Auto) 2.9 % (0.0-3.0) 2.8 % (0.0-3.0) Basophils (%) (Auto) 0.8 % (0.0-2.0) 0.5 % (0.0-2.0) Sodium Level 147 MMOL/L (136-145) 144 MMOL/L (136-145) Potassium Level 4.1 MMOL/L (3.5-5.1) 4.2 MMOL/L (3.5-5.1) Chloride Level 110 MMOL/L (98-107) 106 MMOL/L (98-107) Carbon Dioxide Level 27 MMOL/L (21-32) 27 MMOL/L (21-32) Anion Gap 10 mmol/L (5-15) 11 mmol/L (5-15) Blood Urea Nitrogen 61 mg/dL (7-18) 60 mg/dL (7-18) Creatinine 4.6 MG/DL (0.55-1.30) 5.0 MG/DL (0.55-1.30) Estimat Glomerular Filtration Rate 9.8 mL/min (>60) 8.9 mL/min (>60) Glucose Level 118 MG/DL (74-106) 123 MG/DL (74-106) Hemoglobin A1c 5.2 % (4.3-6.0) Lactic Acid Level 0.60 mmol/L (0.4-2.0) Uric Acid 8.9 MG/DL (2.6-7.2) 9.0 MG/DL (2.6-7.2) Calcium Level 9.2 MG/DL (8.5-10.1) 9.5 MG/DL (8.5-10.1) Phosphorus Level 5.6 MG/DL (2.5-4.9) 6.6 MG/DL (2.5-4.9) Magnesium Level 2.5 MG/DL (1.8-2.4) 2.4 MG/DL (1.8-2.4) Total Bilirubin 0.5 MG/DL (0.2-1.0) 0.5 MG/DL (0.2-1.0) Gamma Glutamyl Transpeptidase 5 U/L (5-85) Aspartate Amino Transf (AST/SGOT) 12 U/L (15-37) 12 U/L (15-37) Alanine Aminotransferase (ALT/SGPT) 13 U/L (12-78) 15 U/L (12-78) Alkaline Phosphatase 52 U/L (46-116) 56 U/L (46-116) Total Creatine Kinase 52 U/L (26-308) Troponin I 0.000 ng/mL (0.000-0.056) C-Reactive Protein, Quantitative 6.2 mg/dL (0.00-0.90) Pro-B-Type Natriuretic Peptide 1450 pg/mL (0-125) Total Protein 6.5 G/DL (6.4-8.2) 7.2 G/DL (6.4-8.2) Albumin 2.9 G/DL (3.4-5.0) 3.0 G/DL (3.4-5.0) Globulin 3.6 g/dL 4.2 g/dL Albumin/Globulin Ratio 0.8 (1.0-2.7) 0.7 (1.0-2.7) Triglycerides Level 186 MG/DL (30-150) Cholesterol Level 152 MG/DL (< 200) LDL Cholesterol 75 mg/dL (<100) HDL Cholesterol 35 MG/DL (40-60) Cholesterol/HDL Ratio 4.3 (3.3-4.4) Thyroid Stimulating Hormone (TSH) 0.548 uiU/mL (0.358-3.740) Iron Level 50 ug/dL (50-175) Total Iron Binding Capacity 198 ug/dL (250-450) Percent Iron Saturation 25 % (15-50) Unsaturated Iron Binding 148 ug/dL (112-346) Ferritin 327 NG/ML (8-388) Vitamin B12 Level 443 PG/ML (193-986) Folate 17.9 NG/ML (8.6-58.9) Height (Feet): 5 Height (Inches): 4.00 Weight (Pounds): 224 Objective Vital Signs Gen: unresponsive Pulm: intubated on vent CV: RRR, no mgr Abd: soft, nt, d Ext: no cce Colby Canada MD Jan 31, 2019 16:06
--- NOTE | 2019-01-31 16:13 | NUR ---
NURSE NOTES: Patient turned and repositioned for comfort and skin management. Mouth care done. HOB elevated to prevent aspiration. No significant change of condition and vital signs remains within normal range. Call light within reach. Will continue close monitor.
--- NOTE | 2019-01-31 16:36 | NUR ---
NURSE NOTES: OR called to follow up s/p stent placement, according to the OR all nurses from previous shift are gone, follow up tomorrow.Patient remains on close monitoring
--- NOTE | 2019-01-31 18:15 | NUR ---
NURSE NOTES: NO SIGNIFICANT CHANGE, ADLs DONE, KEPT CLEAN AND COMFORTABLE.CALL LIGHT WITHIN EASY REACH
--- NOTE | 2019-01-31 19:10 | NUR ---
HAND-OFF: Report given to GUZMAN Ovalle.
--- NOTE | 2019-01-31 19:40 | NUR ---
NURSE NOTES: Received report from GUZMAN Staples. Pt is sleeping on the bed and lethargic and able to open the eyes when pain and tactile stimuli. Vent dependent and orally intubated with ETT 7.5 and fixed 23cm. Setting with AC: 16, TV: 550, FiO2 45%, P:5 and Sao2 99-100% noted. Given oral care. Provided oral and endotracheal suction. IV site intact and no sign of infiltration noted. Pt has OGT tune and noted 50cc greenish color residual. No sign of pain by FLACC scale. No fever. On Rod cath yellowish urine urinated. On Tele monitor with SR. Pt has bilateral soft restraint. Checked circulation and comfort. Trying to release restraint Pt still trying to touch medical care evaluation specialist when during care. Keep restraint for prevent to remove ETT. Changed position. Placed fall and seizure precaution. Will continue to care plan.
--- NOTE | 2019-01-31 20:19 | Consultation ---
Consult Note Consult Note NEUROLOGY CONSULTATION: Full note dictated #[id number] 58-year-old, lady, of unknown handedness, who does have a past history of psychiatric illness, seizure disorder that has been poorly defined, left below-knee amputation, who lives in a senior living. In her well state she is awake alert and communicative. She was hospitalized on 01/29/2019 for altered mental state at a senior living. It was discovered that she was having respiratory problems and her oxygen saturations were dropping. She was brought into the [facility] emergency room and had to be intubated and artificially ventilated. She was found to be septic with pneumonia and urinary tract infection. At this point in time she is in the intensive care unit intubated, artificially ventilated, on intravenous fluids, on intravenous antibiotics, and sedated with Versed. This consultation was requested to evaluate the patient for her altered mental state and her underlying seizure disorder. Due to her present sedated state it is impossible to get any further details of her history. ON EXAM: Mental status examination: At this point in time the patient is sedated with Versed. She does open her eyes on loud vocal stimulation but is unable to respond in any other manner. Speech: Cannot be tested. Language: Cannot be tested. Cranial nerves: 2 through 12 with no focal dysfunction. Motor examination: No response even to deep painful stimuli. Sensory examination: No response to deep painful stimuli. Reflexes: 0 at the biceps triceps brachioradialis and knees. 0 at the right ankle. Plantar response mute on right side. Impression: Toxic metabolic encephalopathy related to sepsis associated with urinary tract infection and pneumonia, hypoxia, Versed use. Exact details of seizure disorder unknown. Recommendations: Continue aggressive treatment of infectious processes. Continue aggressive treatment of respiratory dysfunction. EEG to better delineate type of seizure disorder. Try to wean off mind altering drugs as soon as possible. Errol Quesada M.D., M.S.P.H. Errol Quesada MD Jan 31, 2019 20:19
[2019-01-31] MEDS: Pantoprazole Inj IVP SCH (20:47)
--- NOTE | 2019-01-31 21:38 | General Progress Note ---
Assessment/Plan Problem List: (1) Acute renal failure ICD Codes: N17.9 - Acute kidney failure, unspecified SNOMED: 81653065 Qualifiers: Qualified Codes: N17.9 - Acute kidney failure, unspecified (2) Respiratory failure ICD Codes: J96.90 - Respiratory failure, unspecified, unspecified whether with hypoxia or hypercapnia SNOMED: 427783216 Qualifiers: Qualified Codes: J96.01 - Acute respiratory failure with hypoxia; J96.02 - Acute respiratory failure with hypercapnia (3) UTI (urinary tract infection) ICD Codes: N39.0 - Urinary tract infection, site not specified SNOMED: 74105243 Qualifiers: Qualified Codes: N39.0 - Urinary tract infection, site not specified (4) Schizophrenia ICD Codes: F20.9 - Schizophrenia, unspecified SNOMED: 81994957 (5) HTN (hypertension) ICD Codes: I10 - Essential (primary) hypertension SNOMED: 95773218 (6) Leukocytosis ICD Codes: D72.829 - Elevated white blood cell count, unspecified SNOMED: 804520963, 027639736 Status: unchanged Assessment/Plan: stent jj stent by urolgist dr glover pt needs jj stent in order to survive no dpoa to sign consent doing stent emergently to prevent mortality resp fialure intubated pna edema Subjective ROS Limited/Unobtainable: Yes Allergies: Coded Allergies: Grits (Unverified Allergy, Unknown, 07/06/17) [place] (Unverified Allergy, Unknown, 07/06/17) Objective Last 24 Hour Vital Signs Date Time Temp Pulse Resp B/P (MAP) Pulse Ox O2 Delivery O2 Flow Rate FiO2 01/31/19 21:00 70 16 127/75 100 Mechanical Ventilator 45 01/31/19 20:58 69 16 45 01/31/19 20:00 99 01/31/19 20:00 98.8 66 18 95/65 99 Mechanical Ventilator 45 01/31/19 20:00 45 01/31/19 20:00 Mechanical Ventilator 01/31/19 19:25 61 16 99 Mechanical Ventilator 45 62 16 45 01/31/19 19:00 64 16 127/76 100 Mechanical Ventilator 45 01/31/19 18:00 61 16 144/80 100 Mechanical Ventilator 45 01/31/19 17:29 66 17 45 01/31/19 17:00 63 16 192/89 100 Mechanical Ventilator 45 01/31/19 17:00 98.6 62 18 92/66 100 Mechanical Ventilator 45 01/31/19 16:00 62 01/31/19 16:00 45 01/31/19 16:00 63 16 192/89 100 Mechanical Ventilator 45 01/31/19 16:00 Mechanical Ventilator 01/31/19 15:20 73 16 100 Mechanical Ventilator 45 74 16 45 01/31/19 15:00 61 16 115/79 100 Mechanical Ventilator 45 01/31/19 14:31 189/84 01/31/19 12:00 98.4 62 16 171/97 100 Mechanical Ventilator 45 01/31/19 12:00 45 01/31/19 12:00 62 01/31/19 12:00 Mechanical Ventilator 01/31/19 11:00 61 16 163/82 100 Mechanical Ventilator 45 01/31/19 10:35 61 16 100 Mechanical Ventilator 45 62 16 45 01/31/19 10:00 60 16 134/86 100 Mechanical Ventilator 45 01/31/19 09:02 59 16 45 01/31/19 09:00 74 17 208/97 100 Mechanical Ventilator 45 01/31/19 08:00 Mechanical Ventilator 01/31/19 08:00 67 01/31/19 08:00 45 01/31/19 08:00 62 16 118/71 100 Mechanical Ventilator 45 01/31/19 07:30 98.6 61 16 160/87 100 45 01/31/19 07:16 84 16 100 Mechanical Ventilator 45 83 16 45 01/31/19 07:00 86 16 149/82 100 45 01/31/19 06:30 71 16 179/87 100 45 01/31/19 06:00 72 16 133/86 100 45 01/31/19 05:30 96 17 181/92 100 45 01/31/19 05:00 96 22 188/89 100 45 01/31/19 04:54 83 20 45 01/31/19 04:30 69 23 173/93 100 45 01/31/19 04:00 45 01/31/19 04:00 77 01/31/19 04:00 58 17 197/91 100 45 01/31/19 04:00 Mechanical Ventilator 01/31/19 03:53 215/85 01/31/19 03:48 57 18 215/85 100 45 01/31/19 03:30 60 16 217/89 100 45 01/31/19 03:23 63 16 100 Mechanical Ventilator 45 01/31/19 03:13 61 16 100 Mechanical Ventilator 45 61 16 45 01/31/19 03:00 98.8 59 16 204/91 100 45 01/31/19 02:00 51 16 117/72 100 45 01/31/19 01:12 52 16 45 01/31/19 01:00 65 16 153/75 100 45 01/31/19 00:30 65 16 153/75 100 45 01/31/19 00:00 56 01/31/19 00:00 45 01/31/19 00:00 Mechanical Ventilator 01/31/19 00:00 54 16 118/67 100 45 01/30/19 23:30 56 16 105/62 100 45 01/30/19 23:22 56 16 100 Mechanical Ventilator 45 01/30/19 23:12 56 16 99 Mechanical Ventilator 45 56 16 45 01/30/19 23:00 56 16 122/74 100 45 01/30/19 22:30 53 16 190/80 100 45 01/30/19 22:00 53 16 195/85 100 45 01/30/19 22:00 16 Mechanical Ventilator 45 Intake and Output 01/30/19 01/31/19 19:00 07:00 Intake Total 626 ml 661 ml Output Total 1900 ml 1600 ml Balance -1274 ml -939 ml Intake Oral 0 ml 0 ml IV Total 506 ml 541 ml Other 120 ml 120 ml Output Urine Total 1900 ml 1600 ml # Bowel Movements 1 Laboratory Tests 01/31/19 03:50: White Blood Count 12.0H, Red Blood Count 3.47L, Hemoglobin 11.2L, Hematocrit 33.5L, Mean Corpuscular Volume 97, Mean Corpuscular Hemoglobin 32.3H, Mean Corpuscular Hemoglobin Concent 33.5, Red Cell Distribution Width 13.0, Platelet Count 194, Mean Platelet Volume 6.5, Neutrophils (%) (Auto) 64.3, Lymphocytes (% ) (Auto) 19.5L, Monocytes (%) (Auto) 12.8H, Eosinophils (%) (Auto) 2.8, Basophils (%) (Auto) 0.5, Sodium Level 144, Potassium Level 4.2, Chloride Level 106, Carbon Dioxide Level 27, Anion Gap 11, Blood Urea Nitrogen 60H, Creatinine 5.0H, Estimat Glomerular Filtration Rate 8.9, Glucose Level 123H, Uric Acid 9.0H , Calcium Level 9.5, Phosphorus Level 6.6H, Magnesium Level 2.4, Iron Level 50, Total Iron Binding Capacity 198L, Percent Iron Saturation 25, Unsaturated Iron Binding 148, Ferritin 327, Total Bilirubin 0.5, Aspartate Amino Transf (AST/SGOT ) 12L, Alanine Aminotransferase (ALT/SGPT) 15, Alkaline Phosphatase 56, Total Protein 7.2, Albumin 3.0L, Globulin 4.2, Albumin/Globulin Ratio 0.7L, Vitamin B12 Level 443, Folate 17.9 Height (Feet): 5 Height (Inches): 4.00 Weight (Pounds): 224 Neck: supple Cardiovascular: normal rate Respiratory/Chest: lungs clear Abdomen: soft Isela Rubio MD Jan 31, 2019 21:38
--- NOTE | 2019-01-31 22:00 | NUR ---
NURSE NOTES: Pt is sleeping on the bed and no sign of acute distress noted. Tolerated well with current Vent setting. Changed position. Will continue to monitor any change of condition.
--- NOTE | 2019-01-31 22:00 | Consultation ---
DATE OF CONSULTATION: 01/31/2019 UROLOGY CONSULTATION CHIEF COMPLAINT/HISTORY OF PRESENT ILLNESS: I was asked by Dr. Rubio to evaluate this 58-year-old female, known to me from previous hospitalization at [facility] regarding history of right-sided hydronephrosis and worsening renal insufficiency. Briefly, I saw the patient at [facility] last week. She had bilateral hydronephrosis and some renal insufficiency. It was felt that there was a stone in her distal ureter on the left side. Ureteroscopy did not reveal any evidence of the stone, but did reveal evidence of stricture and tightness on that side. A double-J stent was placed on the left. The patient was then discharged out. She returns now to [place] with worsening renal insufficiency and evidence of pneumonia. Given the above, I was asked to evaluate the patient. PAST MEDICAL HISTORY: 1. Bilateral hydronephrosis. 2. Schizophrenia. 3. Seizure disorder. 4. Hypertension. 5. Obesity. 6. Urinary tract infection. PAST SURGICAL HISTORY: Left ureteroscopy with double-J stent placement and cystoscopy. MEDICATIONS: Please see chart for current medications and administration details. ALLERGIES: Include grits and hominy. No known drug allergies. SOCIAL HISTORY: Unobtainable at this time. FAMILY HISTORY: Unobtainable. REVIEW OF SYSTEMS: A 14-system review of systems cannot be done. The patient is intubated and sedated. PHYSICAL EXAMINATION: GENERAL: The patient is an older female, intubated, sedated, and in no obvious distress. HEENT: NC/AT. Oropharynx intubated. NECK: Supple. CHEST: Within normal limits. ABDOMEN: Soft, obese, nontender, and nondistended. EXTREMITIES: Warm and well perfused. No cyanosis, clubbing, or edema. NEUROLOGIC: Deferred as the patient is intubated and sedated. LABORATORY DATA: White blood cell count 12.0, hematocrit 33.5, and platelets 194,000. PT 10.0, INR 0.9, and PTT 27. Sodium 144, potassium 4.2, chloride 106, bicarbonate 27, BUN 60, and creatinine 5.0. Glucose 123. Uric acid 9.0. LFTs within normal limits. Lactic acid within normal limits. Urinalysis, specific gravity 1.010, pH 5.0. Dip test notable for 2+ protein, 4+ blood, 3+ leukocyte esterase. Microanalysis with 15 to 20 red and white blood cells per high-power field and occasional bacteria seen. Blood cultures, no growth. Urine culture, no growth. DIAGNOSTIC IMAGING: Renal ultrasound with tzehxtcn-wy-hthczw right hydronephrosis with increased echogenicity of the right kidney. The left kidney is incompletely visualized. The bladder is decompressed by Rod catheter. ASSESSMENT AND PLAN: In summary, the patient is a 58-year-old female with a history of bilateral hydronephrosis and an area, which was thought to be a stone in her distal left ureter. Previous ureteroscopy revealed that this was a stricture and not a stone. A stent was placed at a previous hospital for the same. The patient now returns with worsening renal insufficiency and pneumonia and is intubated and sedated. Her creatinine has climbed up to 5. Renal bladder ultrasound reveals right-sided sravvmfu-fo-adbsgs hydronephrosis. The left kidney is not well visualized. It has a stent in place. The bladder is decompressed. I discussed these findings today with Dr. Rubio and with Dr. Hatch. We will plan for cystoscopy with right double-J stent placement and fluoroscopy to obstructive source of her renal failure. Depending on how she does, the patient may need further consideration for dialysis by Nephrology recommendation or if her renal function improved after the same, we can observe her from that standpoint. Thank you for allowing me to participate in the care of this unfortunate lady. Please do not hesitate to contact me with any questions that you may further have regarding her care. I will see her with you as needed. Fernando Daley M.D. DR: ALECIA JOB#: [id number] CC:
--- NOTE | 2019-01-31 22:15 | Procedure Note ---
DATE OF PROCEDURE: 01/31/2019 PREOPERATIVE DIAGNOSIS: Right hydronephrosis with worsening renal failure. POSTOPERATIVE DIAGNOSIS: Right hydronephrosis with worsening renal failure. PROCEDURE PERFORMED: Cystoscopy with right double-J stent placement and fluoroscopy. SURGEON: Fernando Daley M.D. ANESTHESIA: General/LMA. ESTIMATED BLOOD LOSS: None. IV FLUIDS: IV crystalloid only. DRAINS, TUBES, AND CATHETERS: Right double-J stent placed. SPECIMENS: None. COMPLICATIONS: None. OPERATIVE INDICATION: The patient is a 58-year-old female with a history of worsening renal failure. I previously saw her in an outside facility and got a left double-J stent placement for hydronephrosis after she was felt to have a stone on that side. There was no stone visualized on ureteroscopy, but the stent was left in place. The patient now returns to [facility] with respiratory failure and pneumonia and worsening renal failure. As such, I was asked to evaluate the patient and place a stent on the right side. OPERATIVE NOTE IN DETAIL: The patient was brought to the operating room and placed on the table in the lithotomy position. She was already intubated and sedated. She was draped and prepped in the usual sterile fashion. A 21-Persian cystoscope was used to calibrate the patient's urethra and passed the scope into the bladder. The bladder revealed evidence of an edematous trigone consistent with possible trigonitis. The left double-J stent was seen and was in good position. Attention was turned to the right ureteral orifice into which a 0.035 Glidewire was cannulated with the help of a ureteral catheter and passed up into the right renal collecting system. Once this was in place, the ureteral catheter was removed and a double-J stent was passed over the wire and into the right renal collecting system with a good curl noted fluoroscopically within the kidney and cystoscopically within the bladder. Once the stent was in place, the camera was removed. A Rod catheter was inserted, inflated, and left to gravity drainage. The patient was taken out of dorsal lithotomy and placed back in supine position. She was transported to the intensive care unit in stable condition. I was present and scrubbed for the entire duration of this case. All needle, sponge, and instrument counts reported correct. Fernando Daley M.D. DR: ALECIA JOB#: [id number] CC:
--- NOTE | 2019-01-31 22:45 | Consultation ---
DATE OF CONSULTATION: 01/31/2019 NEUROLOGY CONSULTATION CONSULTING PHYSICIAN: Errol Quesada M.D. REQUESTING PHYSICIAN: Isela Rubio M.D. HISTORY: Ms. Bridget Cole is a 58-year-old, lady, of unknown handedness, who does have a past history of a psychiatric illness, seizure disorder that has been poorly defined, and a left below-knee amputation who lives in a shelter. In her well state, she is able to communicate and is awake and alert. On 01/29/2019, she was hospitalized for an alteration in her mental state at the shelter. It was discovered that she was having respiratory problems. Her oxygen saturations were dropping and as a result of that she was brought into the [facility] emergency room. When she was brought into the emergency room, it was discovered that she was septic, had a pneumonia, and a urinary tract infection. She had to be emergently intubated and artificially ventilated and then transferred to the intensive care unit. Since she has been in the intensive care unit, she has been given intravenous antibiotics and intravenous fluids, and at this point in time she is sedated with Versed. This consultation was requested to evaluate the patient from a neurological point of view for her altered mental state and underlying seizure disorder. Of note is that in the past her seizures were only treated with Neurontin and Klonopin. Due to her present sedated state, it is impossible to get any further history. PAST MEDICAL HISTORY: Significant for a psychiatric illness, seizure disorder, left below-knee amputation, chronic debility as as a result of which she lives in a shelter. FAMILY HISTORY: Unavailable. PERSONAL HISTORY: Unavailable. PHYSICAL EXAMINATION: GENERAL: She is a well-developed, well-nourished, obese lady, lying in the intensive care unit bed, connected to a ventilator through an orotracheal tube on a Versed drip . VITAL SIGNS: Pulse 62/minute, blood pressure 127/76 mmHg, respirations 16/minute, temperature 98.6 degrees Fahrenheit. HEAD: Normocephalic and atraumatic. EENT: Examination was benign. NECK: No neck rigidity was observed. NEUROLOGICAL EXAMINATION: MENTAL STATUS EXAMINATION: She was sedated with a Versed drip. She did open her eyes briefly on loud vocal stimulation but was unable to respond in any other manner. She was unable to follow simple commands. SPEECH: Could not be tested. LANGUAGE: Could not be tested. CRANIAL NERVE EXAMINATION: II: She did blink to threat inconsistently. III, IV, : External ocular movements were present on oculocephalic maneuvers. The pupils were 3 mm in diameter and reactive sluggishly to light. V & VII: The corneal reflexes were present and equal bilaterally. VIII: She did respond to loud sounds and had no nystagmus. IX & X: The gag reflex was subdued on manipulating the endotracheal tube. XI: The sternocleidomastoids and trapezii functioned minimally. XII: Could not be tested adequately. MOTOR SYSTEM: The tone was normal in all four extremities. Examination of muscle mass revealed no focal wasting. She did have left below-knee amputation. Examination of power was impossible to perform because even on applying deep painful stimuli, no significant movements were seen. SENSORY EXAMINATION: She did not respond even to deep painful stimuli. REFLEXES: 0 at the biceps, triceps, brachioradialis, and knees, 0 at the right ankle. The plantar response was mute on the right side. COORDINATION, STANCE & GAIT: Could not be tested. DIAGNOSTIC IMPRESSION: 1. Ms. Bridget Cole is a 58-year-old, lady, of unknown handedness, with a past history of a psychiatric illness, a seizure disorder, left below-knee amputation, and general debility as a result of which she lives in a shelter who on 01/29/2019 was noted to have an altered mental state related to hypoxia associated with a pneumonia, urinary tract infection, and sepsis. Since then, she has been hospitalized and has been treated for these problems. 2. On neurological examination, at this time, she is sedated with Versed. She does open her eyes on loud vocal stimulation but is unable to respond in any other manner. Speech and language cannot be tested. The cranial nerves reveal no definite focal dysfunction. Motor and sensory examination are suboptimal because of the sedation. The deep tendon reflexes are globally absent and plantar response on the right side is mute. 3. Her latest laboratory data revealed that she still has a leukocytosis with WBC count of 12,000. She is anemic with a hemoglobin of 11.2 G. Her chemistry panel reveals a BUN elevated at 60, a creatinine elevated at 5.0, glucose elevated at 123. Her B12 level is normal at 443. Her folate is normal at 17.9. Her TSH is normal at 0.548. Her proBNP is elevated at 1450. Her latest blood gas performed on 01/29/2019 at 2100 hours reveals a pH of 7.42, pCO2 of 36, and a pO2 of 74. The Urinalysis revealed 3+leukocyte esterase, 15-20 red blood cells and white blood cells per high-power field. 4. CT scan of the brain performed on 01/29/2019 revealed atrophy and deep white matter changes. 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 5. The patient's history, neurological examination, laboratory data, and imaging studies are most consistent with a significant toxic metabolic encephalopathy related to sepsis associated with a urinary tract infection, pneumonia, associated hypoxia, and at this point in time sedation with Versed. 6. Exact details of the patient's seizure disorder is unknown to us. RECOMMENDATIONS: 1. Agree with management thus far. 2. Would continue aggressive treatment of infectious processes. 3. Would continue aggressive treatment of respiratory dysfunction. 4. An EEG will be ordered to evaluate the patient for type of seizure disorder. 5. Attempts should be made to wean the patient of mind-altering drugs as soon as possible so that her level of consciousness improves. Thank you for entrusting me with the care of Ms. Cole. I shall follow her with you. Errol Quesada M.D., M.S.P.H. DR: Harris JOB#: [id number] PIERRE
--- NOTE | 2019-01-31 23:44 | NUR ---
NURSE NOTES: EEG was done. Left message to Dr. Quesada regarding EEG result. Will continue to monitor any change of condition.
[2019-02-01] VITALS (24 sets, daily range): BP systolic 90–160; BP diastolic 45–88
--- NOTE | 2019-02-01 | NUR ---
NURSE NOTES: Pt is sleeping on the bed and tolerated well with current Vent setting. Provided oral care and give oral suction. Noted BT: 99.5F. Provided cooling measure. Pt has Rod cath and noted slight hematuria with pinkish color with s/p cystoscopy with Rt. double J stent placement. Changed position. On OGT tube and noted 10cc residual. Will continue to monitor any change of condition.
--- NOTE | 2019-02-01 02:00 | NUR ---
NURSE NOTES: Given oral care. Repositioned. Still note pinkish urine via Rod cath. Placed fall and seizure precaution. Will continue to care plan.
[2019-02-01] MEDS: Albuterol/Ipratropium 3ml neb HHN SCH ×6 (03:27→22:37)
--- NOTE | 2019-02-01 04:00 | NUR ---
NURSE NOTES: Morning care was done. Repositioned Pt. Applied cream and lotion. Skin intact and no open wound noted. On Rod cath patent and drainage well with pinkish color. Will continue to monitor any change of condition.
[2019-02-01 05:56] LABS: ALANINE AMINOTRANSFERASE 9 U/L (12-78); ALBUMIN 2.7 G/DL (3.4-5.0); ALBUMIN/GLOBULIN RATIO 0.7 (1.0-2.7); ALKALINE PHOSPHATASE 50 U/L (46-116); ANION GAP 14 mmol/L (5-15); ASPARTATE AMINO TRANSFERASE 11 U/L (15-37); BILIRUBIN,TOTAL 0.5 MG/DL (0.2-1.0); BLOOD UREA NITROGEN 56 mg/dL (7-18); CALCIUM 9.5 MG/DL (8.5-10.1); CARBON DIOXIDE 23 MMOL/L (21-32); CHLORIDE 107 MMOL/L (98-107); CREATININE 4.7 MG/DL (0.55-1.30); POTASSIUM 3.8 MMOL/L (3.5-5.1); SODIUM 143 MMOL/L (136-145)
--- NOTE | 2019-02-01 06:00 | NUR ---
NURSE NOTES: Pt is sleeping on the bed and no sign fo acute distress noted. Repositioned. Iv site intact and no sign of infiltration noted and running with D5W1/2NS @ 75cc/hr running. BP stable checked 127/73mmHg. Tolerated well with current Vent setting. Will continue to monitor any change of condition.
[2019-02-01 06:18] LABS: PHOSPHORUS 6.6 MG/DL (2.5-4.9)
--- NOTE | 2019-02-01 06:27 | NUR ---
NURSE NOTES: Dr. Canada visited and assessed PT. CBC lab result pending at this time. MD aware for slight hematuria with pinkish color urine.
--- NOTE | 2019-02-01 07:00 | NUR ---
RESPIRATORY NOTES: Received Patient on Vent settings ACVC RR 16, VT 550, Fio2 45% PEEP +5. Patient is intubated with a 7.5 ETT at 23cm at the lip, secured with anchorfast. Suctioned minimal clear/ pink tinged secretions through ETT. Patient awake, with eyes open and alert. Vent plugged into red outlet. Alarms are on and audible. Will continue to monitor patient throughout the day.
--- NOTE | 2019-02-01 07:16 | NUR ---
HAND-OFF: Report given to GUZMAN Staples. Pt is sleeping on the bed and no sign of acute distress noted.
--- NOTE | 2019-02-01 07:29 | Immediate Post-Op Evaluation ---
Immediate Post-Op Evalulation Immediate Post-Op Evalulation Procedure: Cysto, R uretheral stent placement Date of Evaluation: Jan 31, 2019 Time of Evaluation: 13:48 IV Fluids: 300 Blood Products: none Estimated Blood Loss: min Urinary Output: n/a Blood Pressure Systolic: 124 Blood Pressure Diastolic: 68 Pulse Rate: 82 Respiratory Rate: 18 O2 Sat by Pulse Oximetry: 99 Temperature (Fahrenheit): 97.5 Pain Score (1-10): 1 Nausea: No Vomiting: No Complications none Patient Status: no response, ventilated, none Hydration Status: adequate Elkin Weber MD Feb 01, 2019 07:29
--- NOTE | 2019-02-01 07:30 | 48 Hour Post Anesthesia Eval ---
Post Anesthesia Evaluation Procedure: Cysto, R uretheral stent placement Date of Evaluation: Feb 01, 2019 Time of Evaluation: 07:29 Blood Pressure Systolic: 136 0: 72 Pulse Rate: 68 Respiratory Rate: 16 Temperature (Fahrenheit): 97.8 O2 Sat by Pulse Oximetry: 98 Airway: other - intubated on vent Nausea: No Vomiting: No Pain Intensity: 1 Hydration Status: adequate Cardiopulmonary Status: stable Mental Status/LOC: patient returned to baseline Follow-up Care/Observations: n/a Post-Anesthesia Complications: none Follow-up care needed: N/A Elkin Weber MD Feb 01, 2019 07:30
--- NOTE | 2019-02-01 07:32 | Cardiology Report ---
APPROVED REPORT EKG Measurement Heart [id number] NM [id number] Normal sinus rhythm Normal ECG
--- NOTE | 2019-02-01 08:11 | NUR ---
NURSE NOTES: Patient was received asleep easily arousal to tactile stimuli. Afebrile at this time and orally intubated with ETT 7.5/23cm,AC 16, TV550, FiO2 45%, Peep 5, SpO2 96%,CO2 32 and RR 20. No apparent acute distress.Mouth care done and and suctioned as tolerated.OGT placement checked and intact with 30cc clear greenish drainage, HOB elevated at 45 degree to prevent aspiration.GT clamped and remains NPO. Right EJ 20G running D5 1/2NS@75ml/hr with no apparent infiltration.Abdomen soft and non-distended with bowel sounds present in all 4 quadrants.Left BKA with right lower leg + 1 pitting edema.Rod catheter in place draining pinkish urine with no apparent sediments.Bed in low position and locked position.Bilateral soft wrist restraints in place for safety and prevent removal of restraints. Turned and repositioned for skin management and comfort.Call light within reach at all the times.Will continue to monitor.
--- NOTE | 2019-02-01 08:44 | NUR ---
RADIOLOGY DEPT., CHEST X-RAY DONE.-P.DYE
[2019-02-01] MEDS: Meropenem 500mg/NS 55ml IVPB SCH ×4 (08:49→20:22)
[2019-02-01] MEDS: Docusate 250mg cap ORAL SCH (08:49)
[2019-02-01] MEDS: Pantoprazole Inj IVP SCH ×2 (08:49→20:22)
[2019-02-01] MEDS: Heparin 5000 units/ml inj SUBQ SCH ×2 (08:52→20:25)
--- NOTE | 2019-02-01 08:58 | Diagnostic Imaging Report ---
Indication: Dyspnea Technique: One view of the chest Comparison: 01/29/2019 Findings: Much better inspiration currently. Stable satisfactory position of endotracheal tube. Interval development of left-sided pleural effusion. Left upper lung, right lung and pleural space remain clear. The heart size is normal. Impression: Left-sided pleural effusion, developing since previous study 01/29/2019
[2019-02-01] MEDS: D5 1/2NS 1,000 ML IV SCH ×2 (09:04→22:06)
--- NOTE | 2019-02-01 09:38 | NUR ---
NURSE NOTES: Received call from Dr Smith with new order to start with weaning and ABG in 1 hr.RT made aware. Order noted and carried out
--- NOTE | 2019-02-01 09:40 | NUR ---
RESPIRATORY NOTES: Weaning started at 0940. All tests were passed except NIF. Patients NIF is -10. RN Bel aware. Will continue with weaning trail and monitor very closely throughout. Patient placed on PS +8 PEEP +5 FIO2 45%.
[2019-02-01 10:00] LABS: BASOPHILS % (AUTO) 0.7 % (0.0-2.0); EOSINOPHILS % (AUTO) 2.1 % (0.0-3.0); HEMATOCRIT 32.9 % (37.0-47.0); HEMOGLOBIN 10.8 G/DL (12.0-16.0); MEAN CORPUSCULAR VOLUME 96 FL (80-99); MONOCYTES % (AUTO) 12.2 % (1.0-10.0); NEUTROPHILS % (AUTO) 67.9 % (45.0-75.0); PLATELET COUNT 215 K/UL (150-450); RED BLOOD COUNT 3.44 M/UL (4.20-5.40); RED CELL DISTRIBUTION WIDTH 12.8 % (11.6-14.8)
--- NOTE | 2019-02-01 10:42 | NUR ---
NURSE NOTES: Patient turned and repositioned. ABG relayed to Dr Smith with order to put back patient on AC mode.RT made aware. Clarify with Dr Smith about the Picc line order and as stated keep the order and he will put a note for consent since there is no family.Call light within easy reach,HOB elevated elevated to prevent aspiration.
--- NOTE | 2019-02-01 10:53 | Pulmonolgy Critical Care Note ---
Critical Care - Asmt/Plan Assessment/Plan: Pulmonary Critical Care Progress Noted HPI The patient is a 58 year old woman admitted with worsening shortness of breath, respiratory failure requiring intubation, pneumonia. Altered mental status prior to intubation in the ED. Noted to have evidence of UTI in addition to pneumonia LLL Per chart review h/o Seizure disorder, Left Kidney Mass, Hydronephrosis, Hypertension, HHD, Nausea and Vomiting Past Medical History: ESBL UTI from jail Leukocytosis likely related to infection Left kidney mass Left hydronephrosis Anxiety Dehydration Seizure disorder on Clonazepam and Gabapentin Weakness Schizophrenia Hypertension Obesity PSH: Left BKA Allergies: Grits (Unverified Allergy, Unknown, 07/06/17) [place] (Unverified Allergy, Unknown, 07/06/17) stable overnight awaiting Urological Procedure Physical Exam Vital Signs Noted General Appearance: Sedated on the Ventilator Head: normocephalic, atraumatic, ENT: dry mucus membranes, ETT Neck: No LN Respiratory: Bilateral rhonchi Cardiovascular: regular rate, rhythm, HS1, HS2, no edema Gastrointestinal: decreased bowel sounds, overweight, abrasions abdominal wall Musculoskeletal: moving all limbs, BKA L Neurologic: Sedated, PERRL Psychiatric: other - Unresponsive Skin: warm/dry, Impression: Ventilator Dependent Respiratory failure Left lower lobe pulmonary infiltrate Urinary tract infection ESBL UTI from jail Acute on Chronic Renal Failure Left kidney mass Left hydronephrosis Anxiety Dehydration Seizure disorder on Clonazepam and Gabapentin Weakness Schizophrenia Hypertension Obesity Plan Continue current ACVCsettings Wean FIO2- dsays 90-96% Wean as tolerated Sedation PRN Check ABG Antibiotics per ID Aspiration/Seizure precautions 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 Patient does not have available family and needs an urgent central (PICC) line - currently using neck EJ line Patient is stable from Pulmonary Perspective for planned Urological Procedure, will need to remain on mechanical ventilation during and after procedure EKG: Rate: normal Rhythm: NSR ST Segments: no acute changes Chest X-Ray: no effusion, no pneumothorax, other - ET well positioned, possible L sided infiltrate Critical Care - Objective Last 24 Hour Vital Signs Date Time Temp Pulse Resp B/P (MAP) Pulse Ox O2 Delivery O2 Flow Rate FiO2 02/01/19 10:23 100 02/01/19 09:29 67 16 45 45 02/01/19 07:41 77 16 100 Mechanical Ventilator 45 74 16 45 02/01/19 07:30 68 16 98 02/01/19 07:29 82 18 99 02/01/19 07:00 61 16 135/72 100 Mechanical Ventilator 45 02/01/19 06:00 127/74 02/01/19 06:00 57 16 127/74 100 Mechanical Ventilator 45 02/01/19 05:28 59 16 45 02/01/19 05:00 57 16 110/69 100 Mechanical Ventilator 45 02/01/19 04:00 Mechanical Ventilator 02/01/19 04:00 57 02/01/19 04:00 98.8 58 18 133/63 100 Mechanical Ventilator 45 02/01/19 04:00 45 02/01/19 03:27 72 16 98 Mechanical Ventilator 45 70 16 45 02/01/19 03:00 61 16 99/59 100 Mechanical Ventilator 45 02/01/19 02:00 64 16 108/62 99 Mechanical Ventilator 45 02/01/19 01:19 74 16 45 02/01/19 01:00 63 16 90/45 99 Mechanical Ventilator 45 02/01/19 00:00 99.5 75 18 105/68 98 Mechanical Ventilator 45 02/01/19 00:00 71 02/01/19 00:00 45 02/01/19 00:00 Mechanical Ventilator 01/31/19 23:10 71 16 45 01/31/19 23:00 73 16 107/64 99 Mechanical Ventilator 45 01/31/19 22:00 84 16 110/74 100 Mechanical Ventilator 45 01/31/19 22:00 110/74 01/31/19 21:00 70 16 127/75 100 Mechanical Ventilator 45 01/31/19 20:58 69 16 45 01/31/19 20:00 62 01/31/19 20:00 98.8 66 18 95/65 99 Mechanical Ventilator 45 01/31/19 20:00 45 01/31/19 20:00 Mechanical Ventilator 01/31/19 19:25 61 16 99 Mechanical Ventilator 45 62 16 45 01/31/19 19:00 64 16 127/76 100 Mechanical Ventilator 45 01/31/19 18:00 61 16 144/80 100 Mechanical Ventilator 45 01/31/19 17:29 66 17 45 01/31/19 17:00 63 16 192/89 100 Mechanical Ventilator 45 01/31/19 17:00 98.6 62 18 92/66 100 Mechanical Ventilator 45 01/31/19 16:00 62 01/31/19 16:00 45 01/31/19 16:00 63 16 192/89 100 Mechanical Ventilator 45 01/31/19 16:00 Mechanical Ventilator 01/31/19 15:20 73 16 100 Mechanical Ventilator 45 74 16 45 01/31/19 15:00 61 16 115/79 100 Mechanical Ventilator 45 01/31/19 14:31 189/84 01/31/19 12:00 98.4 62 16 171/97 100 Mechanical Ventilator 45 01/31/19 12:00 45 01/31/19 12:00 62 01/31/19 12:00 Mechanical Ventilator 01/31/19 11:00 61 16 163/82 100 Mechanical Ventilator 45 Micro: Microbiology Date/Time Source Procedure Growth Status 01/29/19 14:30 Blood Blood Culture - Final Staphylococcus Epidermidis Complete 01/29/19 14:15 Blood Blood Culture - Preliminary NO GROWTH AFTER 48 HOURS Resulted 01/30/19 05:00 Sputum Induced Gram Stain - Final Resulted 01/30/19 05:00 Sputum Culture - Preliminary YEAST Resulted 01/29/19 17:40 Nasal Nares MRSA Culture - Final NO METHICILLIN RESISTANT STAPH AUREUS... Complete 01/29/19 14:50 Nasal Nares - Final Complete 01/29/19 14:50 Nasal Nares - Final Complete 01/29/19 14:55 Urine,Clean Catch Urine Culture - Final NO GROWTH AFTER 48 HOURS Complete 01/29/19 17:40 Rectum - Final NO CARBAPENEM-RESISTANT ENTEROBACTERI... Complete 01/29/19 17:40 Rectum VRE Culture - Final NO VANCOMYCIN RESISTANT ENTEROCOCCUS ... Complete Accucheck: 83 Critical Care - Subjective ROS Limited/Unobtainable: No Condition: improving, stable FI02: 45 Vent Support Breath Rate: 16 Vent Support Mode: CPAP Vent Tidal Volume: 550 Sputum Amount: Small PEEP: 5.0 PIP: 13 I&O: Intake and Output 01/31/19 02/01/19 19:00 07:00 Intake Total 800 ml 888 ml Output Total 2050 ml 1440 ml Balance -1250 ml -552 ml Free Water 120 ml IV Total 680 ml 888 ml Output Urine Total 2050 ml 1440 ml ET-Tube: 7.5 ET Position: 23 Gabino Smith MD Feb 01, 2019 10:53
--- NOTE | 2019-02-01 10:56 | NUR ---
NURSE NOTES: Patient seen by Dr Hatch with new order to start feeding Jevity 1.2 at 30cc.
--- NOTE | 2019-02-01 10:58 | Nephrology Progress Note ---
Assessment/Plan Problem List: (1) Acute renal failure (2) Respiratory failure (3) HTN (hypertension) (4) Schizophrenia (5) Hydronephrosis Assessment Acute on Chronic Renal Failure ? kidney mass Right hydronephrosis Ventilator Dependent Respiratory failure Left lower lobe pulmonary infiltrate Urinary tract infection ESBL UTI from shelter Dehydration Seizure disorder on Clonazepam and Gabapentin Schizophrenia Hypertension Obesity Plan start feeding NGT patient had right kidney stent Off Lasix Stop all min altering meds PRN versed for sedation avoid nephrotoxics monitor renal parametes per orders Subjective ROS Limited/Unobtainable: Yes Objective Objective Last 24 Hour Vital Signs Date Time Temp Pulse Resp B/P (MAP) Pulse Ox O2 Delivery O2 Flow Rate FiO2 02/01/19 10:23 100 02/01/19 09:29 67 16 45 45 02/01/19 07:41 77 16 100 Mechanical Ventilator 45 74 16 45 02/01/19 07:30 68 16 98 02/01/19 07:29 82 18 99 02/01/19 07:00 61 16 135/72 100 Mechanical Ventilator 45 02/01/19 06:00 127/74 02/01/19 06:00 57 16 127/74 100 Mechanical Ventilator 45 02/01/19 05:28 59 16 45 02/01/19 05:00 57 16 110/69 100 Mechanical Ventilator 45 02/01/19 04:00 Mechanical Ventilator 02/01/19 04:00 57 02/01/19 04:00 98.8 58 18 133/63 100 Mechanical Ventilator 45 02/01/19 04:00 45 02/01/19 03:27 72 16 98 Mechanical Ventilator 45 70 16 45 02/01/19 03:00 61 16 99/59 100 Mechanical Ventilator 45 02/01/19 02:00 64 16 108/62 99 Mechanical Ventilator 45 02/01/19 01:19 74 16 45 02/01/19 01:00 63 16 90/45 99 Mechanical Ventilator 45 02/01/19 00:00 99.5 75 18 105/68 98 Mechanical Ventilator 45 02/01/19 00:00 71 02/01/19 00:00 45 02/01/19 00:00 Mechanical Ventilator 01/31/19 23:10 71 16 45 01/31/19 23:00 73 16 107/64 99 Mechanical Ventilator 45 01/31/19 22:00 84 16 110/74 100 Mechanical Ventilator 45 01/31/19 22:00 110/74 01/31/19 21:00 70 16 127/75 100 Mechanical Ventilator 45 01/31/19 20:58 69 16 45 01/31/19 20:00 62 01/31/19 20:00 98.8 66 18 95/65 99 Mechanical Ventilator 45 01/31/19 20:00 45 01/31/19 20:00 Mechanical Ventilator 01/31/19 19:25 61 16 99 Mechanical Ventilator 45 62 16 45 01/31/19 19:00 64 16 127/76 100 Mechanical Ventilator 45 01/31/19 18:00 61 16 144/80 100 Mechanical Ventilator 45 01/31/19 17:29 66 17 45 01/31/19 17:00 63 16 192/89 100 Mechanical Ventilator 45 01/31/19 17:00 98.6 62 18 92/66 100 Mechanical Ventilator 45 01/31/19 16:00 62 01/31/19 16:00 45 01/31/19 16:00 63 16 192/89 100 Mechanical Ventilator 45 01/31/19 16:00 Mechanical Ventilator 01/31/19 15:20 73 16 100 Mechanical Ventilator 45 74 16 45 01/31/19 15:00 61 16 115/79 100 Mechanical Ventilator 45 01/31/19 14:31 189/84 01/31/19 12:00 98.4 62 16 171/97 100 Mechanical Ventilator 45 01/31/19 12:00 45 01/31/19 12:00 62 01/31/19 12:00 Mechanical Ventilator 01/31/19 11:00 61 16 163/82 100 Mechanical Ventilator 45 Intake and Output 01/31/19 02/01/19 19:00 07:00 Intake Total 800 ml 888 ml Output Total 2050 ml 1440 ml Balance -1250 ml -552 ml Free Water 120 ml IV Total 680 ml 888 ml Output Urine Total 2050 ml 1440 ml Laboratory Tests 02/01/19 04:30: Sodium Level 143, Potassium Level 3.8, Chloride Level 107, Carbon Dioxide Level 23, Anion Gap 14, Blood Urea Nitrogen 56H, Creatinine 4.7H, Estimat Glomerular Filtration Rate 9.6, Glucose Level 126H, Uric Acid 9.3H, Calcium Level 9.5, Phosphorus Level 6.6H, Magnesium Level 2.1, Total Bilirubin 0.5, Aspartate Amino Transf (AST/SGOT) 11L, Alanine Aminotransferase (ALT/SGPT) 9L, Alkaline Phosphatase 50, Troponin I 0.013, C-Reactive Protein, Quantitative 10.9H, Pro-B- Type Natriuretic Peptide 994H, Total Protein 6.7, Albumin 2.7L, Globulin 4.0, Albumin/Globulin Ratio 0.7L, Free Thyroxine 0.79, Free Triiodothyronine 1.2L 02/01/19 09:30: White Blood Count 10.0, Red Blood Count 3.44L, Hemoglobin 10.8L, Hematocrit 32.9L, Mean Corpuscular Volume 96, Mean Corpuscular Hemoglobin 31.4H, Mean Corpuscular Hemoglobin Concent 32.8, Red Cell Distribution Width 12.8, Platelet Count 215, Mean Platelet Volume 6.5, Neutrophils (%) (Auto) 67.9, Lymphocytes (% ) (Auto) 17.0L, Monocytes (%) (Auto) 12.2H, Eosinophils (%) (Auto) 2.1, Basophils (%) (Auto) 0.7 Height (Feet): 5 Height (Inches): 4.00 Weight (Pounds): 218 General Appearance: no apparent distress EENT: other - vented Cardiovascular: tachycardia Respiratory/Chest: decreased breath sounds Abdomen: distended Derrell Hatch MD Feb 01, 2019 10:58
--- NOTE | 2019-02-01 11:40 | NUR ---
RESPIRATORY NOTES: Weaning stopped placed patient back onto ACVC settings per DR. Smith. RN Bel aware. Will continue to closely monitor.
--- NOTE | 2019-02-01 11:45 | NUR ---
NURSE NOTES: Dr Smith made aware ABG result with order to put back pt on ac mode. Written consent under Dr Smith note for Picc line placement.
--- NOTE | 2019-02-01 12:04 | NUR ---
NURSE NOTES: Pt turned and repositioned, HOB elevated to prevent aspiration.No significant change.Will continue to monitor.
--- NOTE | 2019-02-01 12:26 | Infectious Diseases Prog Note ---
Assessment/Plan Assessment/Plan A; Sepsis Positive blood culture, contamination Acute renal failure Acute respiratory failure, hypoxemic Hydronephrosis Obstructive uropathy Schizophrenia P; Continue Meropenem Subjective ROS Limited/Unobtainable: Yes Genitourinary: Reports: other - had cystoscopy & ureteral stent placement Psychiatric: Reports: other - on restraint Allergies: Coded Allergies: Grits (Unverified Allergy, Unknown, 07/06/17) Docena (Unverified Allergy, Unknown, 07/06/17) Objective Vital Signs Last 24 Hour Vital Signs Date Time Temp Pulse Resp B/P (MAP) Pulse Ox O2 Delivery O2 Flow Rate FiO2 02/01/19 11:21 71 14 100 Mechanical Ventilator 45 02/01/19 11:11 72 17 45 45 02/01/19 10:23 100 02/01/19 09:29 67 16 45 45 02/01/19 07:41 77 16 100 Mechanical Ventilator 45 74 16 45 02/01/19 07:30 68 16 98 02/01/19 07:29 82 18 99 02/01/19 07:00 61 16 135/72 100 Mechanical Ventilator 45 02/01/19 06:00 127/74 02/01/19 06:00 57 16 127/74 100 Mechanical Ventilator 45 02/01/19 05:28 59 16 45 02/01/19 05:00 57 16 110/69 100 Mechanical Ventilator 45 02/01/19 04:00 Mechanical Ventilator 02/01/19 04:00 57 02/01/19 04:00 98.8 58 18 133/63 100 Mechanical Ventilator 45 02/01/19 04:00 45 02/01/19 03:27 72 16 98 Mechanical Ventilator 45 70 16 45 02/01/19 03:00 61 16 99/59 100 Mechanical Ventilator 45 02/01/19 02:00 64 16 108/62 99 Mechanical Ventilator 45 02/01/19 01:19 74 16 45 02/01/19 01:00 63 16 90/45 99 Mechanical Ventilator 45 02/01/19 00:00 99.5 75 18 105/68 98 Mechanical Ventilator 45 02/01/19 00:00 71 02/01/19 00:00 45 02/01/19 00:00 Mechanical Ventilator 01/31/19 23:10 71 16 45 01/31/19 23:00 73 16 107/64 99 Mechanical Ventilator 45 01/31/19 22:00 84 16 110/74 100 Mechanical Ventilator 45 01/31/19 22:00 110/74 01/31/19 21:00 70 16 127/75 100 Mechanical Ventilator 45 01/31/19 20:58 69 16 45 01/31/19 20:00 62 01/31/19 20:00 98.8 66 18 95/65 99 Mechanical Ventilator 45 01/31/19 20:00 45 01/31/19 20:00 Mechanical Ventilator 01/31/19 19:25 61 16 99 Mechanical Ventilator 45 62 16 45 01/31/19 19:00 64 16 127/76 100 Mechanical Ventilator 45 01/31/19 18:00 61 16 144/80 100 Mechanical Ventilator 45 01/31/19 17:29 66 17 45 01/31/19 17:00 63 16 192/89 100 Mechanical Ventilator 45 01/31/19 17:00 98.6 62 18 92/66 100 Mechanical Ventilator 45 01/31/19 16:00 62 01/31/19 16:00 45 01/31/19 16:00 63 16 192/89 100 Mechanical Ventilator 45 01/31/19 16:00 Mechanical Ventilator 01/31/19 15:20 73 16 100 Mechanical Ventilator 45 74 16 45 01/31/19 15:00 61 16 115/79 100 Mechanical Ventilator 45 01/31/19 14:31 189/84 Height (Feet): 5 Height (Inches): 4.00 Weight (Pounds): 218 HEENT: other - orally intubated Respiratory/Chest: lungs clear, other - on ventilator Cardiovascular: normal rate Abdomen: soft, non tender Extremities: no edema, other - left BKA Neurologic/Psychiatric: alert, responsive Microbiology Date/Time Source Procedure Growth Status 01/29/19 14:30 Blood Blood Culture - Final Staphylococcus Epidermidis Complete 01/29/19 14:15 Blood Blood Culture - Preliminary NO GROWTH AFTER 48 HOURS Resulted 01/30/19 05:00 Sputum Induced Gram Stain - Final Resulted 01/30/19 05:00 Sputum Culture - Preliminary YEAST Resulted 01/29/19 17:40 Nasal Nares MRSA Culture - Final NO METHICILLIN RESISTANT STAPH AUREUS... Complete 01/29/19 14:50 Nasal Nares - Final Complete 01/29/19 14:50 Nasal Nares - Final Complete 01/29/19 14:55 Urine,Clean Catch Urine Culture - Final NO GROWTH AFTER 48 HOURS Complete 01/29/19 17:40 Rectum - Final NO CARBAPENEM-RESISTANT ENTEROBACTERI... Complete 01/29/19 17:40 Rectum VRE Culture - Final NO VANCOMYCIN RESISTANT ENTEROCOCCUS ... Complete Laboratory Tests Test 02/01/19 04:30 02/01/19 09:30 02/01/19 11:00 Sodium Level 143 MMOL/L (136-145) Potassium Level 3.8 MMOL/L (3.5-5.1) Chloride Level 107 MMOL/L (98-107) Carbon Dioxide Level 23 MMOL/L (21-32) Anion Gap 14 mmol/L (5-15) Blood Urea Nitrogen 56 mg/dL (7-18) H Creatinine 4.7 MG/DL (0.55-1.30) H Estimat Glomerular Filtration Rate 9.6 mL/min (>60) Glucose Level 126 MG/DL (74-106) H Uric Acid 9.3 MG/DL (2.6-7.2) H Calcium Level 9.5 MG/DL (8.5-10.1) Phosphorus Level 6.6 MG/DL (2.5-4.9) H Magnesium Level 2.1 MG/DL (1.8-2.4) Total Bilirubin 0.5 MG/DL (0.2-1.0) Aspartate Amino Transf (AST/SGOT) 11 U/L (15-37) L Alanine Aminotransferase (ALT/SGPT) 9 U/L (12-78) L Alkaline Phosphatase 50 U/L (46-116) Troponin I 0.013 ng/mL (0.000-0.056) C-Reactive Protein, Quantitative 10.9 mg/dL (0.00-0.90) H Pro-B-Type Natriuretic Peptide 994 pg/mL (0-125) H Total Protein 6.7 G/DL (6.4-8.2) Albumin 2.7 G/DL (3.4-5.0) L Globulin 4.0 g/dL Albumin/Globulin Ratio 0.7 (1.0-2.7) L Free Thyroxine 0.79 NG/DL (0.76-1.46) Free Triiodothyronine 1.2 pg/mL (2.3-4.2) L White Blood Count 10.0 K/UL (4.8-10.8) Red Blood Count 3.44 M/UL (4.20-5.40) L Hemoglobin 10.8 G/DL (12.0-16.0) L Hematocrit 32.9 % (37.0-47.0) L Mean Corpuscular Volume 96 FL (80-99) Mean Corpuscular Hemoglobin 31.4 PG (27.0-31.0) H Mean Corpuscular Hemoglobin Concent 32.8 G/DL (32.0-36.0) Red Cell Distribution Width 12.8 % (11.6-14.8) Platelet Count 215 K/UL (150-450) Mean Platelet Volume 6.5 FL (6.5-10.1) Neutrophils (%) (Auto) 67.9 % (45.0-75.0) Lymphocytes (%) (Auto) 17.0 % (20.0-45.0) L Monocytes (%) (Auto) 12.2 % (1.0-10.0) H Eosinophils (%) (Auto) 2.1 % (0.0-3.0) Basophils (%) (Auto) 0.7 % (0.0-2.0) Arterial Blood pH 7.402 (7.350-7.450) Arterial Blood Partial Pressure CO2 38.4 mmHg (35.0-45.0) Arterial Blood Partial Pressure O2 108.1 mmHg (75.0-100.0) H Arterial Blood HCO3 23.4 mmol/L (22.0-26.0) Arterial Blood Oxygen Saturation 97.2 % (95-100) Arterial Blood Base Excess -1.2 (-2-2) Miguel Angel Test Positive Current Medications Medications (Trade) Dose Ordered Sig/William Route PRN Reason Start Time Stop Time Status Last Admin Dose Admin Acetaminophen (Tylenol) 650 mg Q6H PRN ORAL Fever (temp>100.5F) 01/29/19 18:30 02/28/19 18:29 Albuterol/ Ipratropium (Albuterol/ Ipratropium) 3 ml Q4HRT HHN 01/29/19 23:00 02/03/19 22:59 02/01/19 11:21 Bisacodyl (Dulcolax) 10 mg DAILYPRN PRN RECTAL Constipation 01/29/19 20:00 02/28/19 19:59 Chlorhexidine Gluconate (Genevieve-Hex 2%) 1 applic DAILY@1999 TOPIC 02/01/19 20:00 02/28/19 19:59 Clonidine HCl (Catapres Tab) 0.1 mg Q8HR NG 01/31/19 14:00 03/01/19 08:59 01/31/19 14:31 Dextrose (Dextrose 50%) 25 ml Q30M PRN IV Hypoglycemia 01/29/19 18:30 02/28/19 18:29 Dextrose (Dextrose 50%) 50 ml Q30M PRN IV Hypoglycemia 01/29/19 18:30 02/28/19 18:29 Dextrose/Sodium Chloride 1,000 ml @ 75 mls/hr [id number] IV 01/31/19 07:52 03/02/19 07:51 02/01/19 09:04 Docusate Sodium (Colace) 250 mg DAILY ORAL 01/30/19 09:00 03/01/19 08:59 02/01/19 08:49 Heparin Sodium (Porcine) (Heparin 5000 units/ml) 5,000 units EVERY 12 HOURS SUBQ 01/30/19 09:00 03/01/19 08:59 02/01/19 08:52 Hydralazine HCl (Apresoline) 10 mg Q2H PRN IV For High Blood Pressure 01/31/19 15:45 03/02/19 15:44 Hydromorphone HCl (Dilaudid) 0.5 mg Q2H PRN IVP For Pain 01/29/19 18:30 02/05/19 18:29 01/29/19 20:15 Meropenem 500 mg/ Sodium Chloride 55 ml @ 110 mls/hr Q12HR@0800,1999 IVPB 01/29/19 20:00 02/03/19 19:59 02/01/19 08:49 Midazolam HCl 100 ml @ 0 mls/hr Q24H PRN IV Restlessness 01/29/19 19:00 02/05/19 18:59 01/30/19 08:02 Pantoprazole (Protonix) 40 mg EVERY 12 HOURS IVP 01/31/19 21:00 03/02/19 20:59 02/01/19 08:49 Jose Solis MD Feb 01, 2019 12:26
--- NOTE | 2019-02-01 13:48 | NUR ---
NURSE NOTES: Ongoing picc line placement, no apparent acute distress.
--- NOTE | 2019-02-01 13:55 | Hematology/Onc Progress Note ---
Assessment/Plan Assessment/Plan Assessment/Plan: # Anemia of chronic disease due to underlying chronic medical issues, multifactorial --> Anemia workup has been ordered, rule out gi bleed -> Cw acd --> No evidence of hemolysis is noted, peripheral smear has been reviewed. --> Hgb goal >7. Transfuse prn. --> Epogen or iron at this time is not particularly indicated --> Medications have been reviewed --> low threshold for gi evaluation in case has occult + --> hgb trend 11.7-->10.7->10.8 # Leukocytosis is likely related to infection, reactive process, on abx at this time, potentially had acute pyelonephritis on presentation, likely esbl uti --> have reviewed peripheral smear and bandemia/neutrophilia noted --> continue antibiotics if they have been started by ID team --> monitor for resolution --> trend as needed # Left kidney mass -- 5 cm low-attenuation lesion demonstrating slightly higher than normal fluid attenuation coming off of the upper pole left kidney --> likely represents a complex possibly proteinaceous cyst, but necrotic solid mass also possible. # Dehydration --> ivf have been started --> anti-nausea meds started --> trend bun and cr # S/P BKA (below knee amputation) unilateral --> left leg s/p amputation # Anxiety --> as per psych # Left hydronephrosis --> per uro --> 11.4 Cystoscopy, Right JJ stent placement, fluoroscopy # Resp failure s/p intubation # Dvt ppx heparin sq The timing of this note does not necessarily reflect the time of the patient was seen. Greatly appreciate consultation! Subjective Constitutional: Denies: no symptoms, chills, fever, malaise, weakness, other HEENT: Denies: no symptoms, eye pain, blurred vision, tearing, double vision, ear pain, ear discharge, nose pain, nose congestion, throat pain, throat swelling, mouth pain, mouth swelling, other Cardiovascular: Denies: no symptoms, chest pain, edema, irregular heart rate, lightheadedness, palpitations, syncope, other Respiratory: Denies: no symptoms, cough, shortness of breath, SOB with excertion, SOB at rest, sputum, wheezing, other Genitourinary: Denies: no symptoms, burning, discharge, frequency, flank pain, hematuria, incontinence, pain, urgency, other Neurologic/Psychiatric: Denies: no symptoms, anxiety, depressed, emotional problems, headache, numbness, paresthesia, pre-existing deficit, seizure, tingling, tremors, weakness, other Endocrine: Denies: no symptoms, excessive sweating, flushing, intolerance to cold, intolerance to heat, increased hunger, increased thirst, increased urine, unexplained weight gain, unexplained weight loss, other Allergies: Coded Allergies: Grits (Unverified Allergy, Unknown, 07/06/17) [place] (Unverified Allergy, Unknown, 07/06/17) Subjective 01/31: is for stent placement today, no events, labs noted 02/01: no events, jevity started, andreea rn, on vent Objective Objective Current Medications Medications (Trade) Dose Ordered Sig/William Route PRN Reason Start Time Stop Time Status Last Admin Dose Admin Acetaminophen (Tylenol) 650 mg Q6H PRN ORAL Fever (temp>100.5F) 01/29/19 18:30 02/28/19 18:29 Albuterol/ Ipratropium (Albuterol/ Ipratropium) 3 ml Q4HRT HHN 01/29/19 23:00 02/03/19 22:59 02/01/19 11:21 Bisacodyl (Dulcolax) 10 mg DAILYPRN PRN RECTAL Constipation 01/29/19 20:00 02/28/19 19:59 Chlorhexidine Gluconate (Genevieve-Hex 2%) 1 applic DAILY@2000 TOPIC 02/01/19 20:00 02/28/19 19:59 Clonidine HCl (Catapres Tab) 0.1 mg Q8HR NG 01/31/19 14:00 03/01/19 08:59 01/31/19 14:31 Dextrose (Dextrose 50%) 25 ml Q30M PRN IV Hypoglycemia 01/29/19 18:30 02/28/19 18:29 Dextrose (Dextrose 50%) 50 ml Q30M PRN IV Hypoglycemia 01/29/19 18:30 02/28/19 18:29 Dextrose/Sodium Chloride 1,000 ml @ 75 mls/hr [id number] IV 01/31/19 07:52 03/02/19 07:51 02/01/19 09:04 Docusate Sodium (Colace) 250 mg DAILY ORAL 01/30/19 09:00 03/01/19 08:59 02/01/19 08:49 Heparin Sodium (Porcine) (Heparin 5000 units/ml) 5,000 units EVERY 12 HOURS SUBQ 01/30/19 09:00 03/01/19 08:59 02/01/19 08:52 Hydralazine HCl (Apresoline) 10 mg Q2H PRN IV For High Blood Pressure 01/31/19 15:45 03/02/19 15:44 Hydromorphone HCl (Dilaudid) 0.5 mg Q2H PRN IVP For Pain 01/29/19 18:30 02/05/19 18:29 01/29/19 20:15 Meropenem 500 mg/ Sodium Chloride 55 ml @ 110 mls/hr Q12HR@0800,2000 IVPB 01/29/19 20:00 02/03/19 19:59 02/01/19 08:49 Midazolam HCl 100 ml @ 0 mls/hr Q24H PRN IV Restlessness 01/29/19 19:00 02/05/19 18:59 01/30/19 08:02 Pantoprazole (Protonix) 40 mg EVERY 12 HOURS IVP 01/31/19 21:00 03/02/19 20:59 02/01/19 08:49 Last 24 Hour Vital Signs Date Time Temp Pulse Resp B/P (MAP) Pulse Ox O2 Delivery O2 Flow Rate FiO2 02/01/19 13:22 77 16 45 02/01/19 13:00 83 17 149/87 99 Mechanical Ventilator 45 02/01/19 12:00 45 02/01/19 12:00 99.2 72 16 141/81 99 Mechanical Ventilator 45 02/01/19 12:00 72 02/01/19 12:00 Mechanical Ventilator 02/01/19 11:21 71 14 100 Mechanical Ventilator 45 02/01/19 11:11 72 17 45 45 02/01/19 11:00 75 16 160/84 99 Mechanical Ventilator 45 02/01/19 10:23 100 02/01/19 10:00 87 17 145/84 100 Mechanical Ventilator 45 02/01/19 09:29 67 16 45 45 02/01/19 09:00 68 16 141/82 99 Mechanical Ventilator 45 02/01/19 08:00 45 02/01/19 08:00 98.4 63 16 135/74 99 Mechanical Ventilator 45 02/01/19 08:00 65 02/01/19 08:00 Mechanical Ventilator 02/01/19 07:41 77 16 100 Mechanical Ventilator 45 74 16 45 02/01/19 07:30 68 16 98 02/01/19 07:29 82 18 99 02/01/19 07:00 61 16 135/72 100 Mechanical Ventilator 45 02/01/19 06:00 127/74 02/01/19 06:00 57 16 127/74 100 Mechanical Ventilator 45 02/01/19 05:28 59 16 45 02/01/19 05:00 57 16 110/69 100 Mechanical Ventilator 45 02/01/19 04:00 Mechanical Ventilator 02/01/19 04:00 57 02/01/19 04:00 98.8 58 18 133/63 100 Mechanical Ventilator 45 02/01/19 04:00 45 02/01/19 03:27 72 16 98 Mechanical Ventilator 45 70 16 45 02/01/19 03:00 61 16 99/59 100 Mechanical Ventilator 45 02/01/19 02:00 64 16 108/62 99 Mechanical Ventilator 45 02/01/19 01:19 74 16 45 02/01/19 01:00 63 16 90/45 99 Mechanical Ventilator 45 02/01/19 00:00 99.5 75 18 105/68 98 Mechanical Ventilator 45 02/01/19 00:00 71 02/01/19 00:00 45 02/01/19 00:00 Mechanical Ventilator 01/31/19 23:10 71 16 45 01/31/19 23:00 73 16 107/64 99 Mechanical Ventilator 45 01/31/19 22:00 84 16 110/74 100 Mechanical Ventilator 45 01/31/19 22:00 110/74 01/31/19 21:00 70 16 127/75 100 Mechanical Ventilator 45 01/31/19 20:58 69 16 45 01/31/19 20:00 62 01/31/19 20:00 98.8 66 18 95/65 99 Mechanical Ventilator 45 01/31/19 20:00 45 01/31/19 20:00 Mechanical Ventilator 01/31/19 19:25 61 16 99 Mechanical Ventilator 45 62 16 45 01/31/19 19:00 64 16 127/76 100 Mechanical Ventilator 45 01/31/19 18:00 61 16 144/80 100 Mechanical Ventilator 45 01/31/19 17:29 66 17 45 01/31/19 17:00 63 16 192/89 100 Mechanical Ventilator 45 01/31/19 17:00 98.6 62 18 92/66 100 Mechanical Ventilator 45 01/31/19 16:00 62 01/31/19 16:00 45 01/31/19 16:00 63 16 192/89 100 Mechanical Ventilator 45 01/31/19 16:00 Mechanical Ventilator 01/31/19 15:20 73 16 100 Mechanical Ventilator 45 74 16 45 01/31/19 15:00 61 16 115/79 100 Mechanical Ventilator 45 01/31/19 14:31 189/84 01/31/19 12:00 98.4 62 16 171/97 100 Mechanical Ventilator 45 01/31/19 12:00 45 01/31/19 12:00 62 01/31/19 12:00 Mechanical Ventilator 01/31/19 11:00 61 16 163/82 100 Mechanical Ventilator 45 01/31/19 10:35 61 16 100 Mechanical Ventilator 45 62 16 45 01/31/19 10:00 60 16 134/86 100 Mechanical Ventilator 45 01/31/19 09:02 59 16 45 01/31/19 09:00 74 17 208/97 100 Mechanical Ventilator 45 01/31/19 08:00 Mechanical Ventilator 01/31/19 08:00 67 01/31/19 08:00 45 01/31/19 08:00 62 16 118/71 100 Mechanical Ventilator 45 01/31/19 07:30 98.6 61 16 160/87 100 45 01/31/19 07:16 84 16 100 Mechanical Ventilator 45 83 16 45 01/31/19 07:00 86 16 149/82 100 45 01/31/19 06:30 71 16 179/87 100 45 01/31/19 06:00 72 16 133/86 100 45 01/31/19 05:30 96 17 181/92 100 45 01/31/19 05:00 96 22 188/89 100 45 01/31/19 04:54 83 20 45 01/31/19 04:30 69 23 173/93 100 45 01/31/19 04:00 45 01/31/19 04:00 77 01/31/19 04:00 58 17 197/91 100 45 01/31/19 04:00 Mechanical Ventilator 01/31/19 03:53 215/85 01/31/19 03:48 57 18 215/85 100 45 01/31/19 03:30 60 16 217/89 100 45 01/31/19 03:23 63 16 100 Mechanical Ventilator 45 01/31/19 03:13 61 16 100 Mechanical Ventilator 45 61 16 45 01/31/19 03:00 98.8 59 16 204/91 100 45 01/31/19 02:00 51 16 117/72 100 45 01/31/19 01:12 52 16 45 01/31/19 01:00 65 16 153/75 100 45 01/31/19 00:30 65 16 153/75 100 45 01/31/19 00:00 56 01/31/19 00:00 45 01/31/19 00:00 Mechanical Ventilator 01/31/19 00:00 54 16 118/67 100 45 01/30/19 23:30 56 16 105/62 100 45 01/30/19 23:22 56 16 100 Mechanical Ventilator 45 01/30/19 23:12 56 16 99 Mechanical Ventilator 45 56 16 45 01/30/19 23:00 56 16 122/74 100 45 01/30/19 22:30 53 16 190/80 100 45 01/30/19 22:00 53 16 195/85 100 45 01/30/19 22:00 16 Mechanical Ventilator 45 01/30/19 21:30 55 16 217/89 100 45 01/30/19 21:03 52 16 45 01/30/19 21:00 16 Mechanical Ventilator 45 01/30/19 21:00 51 16 137/69 100 45 01/30/19 20:30 52 16 121/74 100 45 01/30/19 20:00 Mechanical Ventilator 01/30/19 20:00 52 16 132/71 100 45 01/30/19 20:00 16 Mechanical Ventilator 45 01/30/19 20:00 52 01/30/19 20:00 45 01/30/19 19:30 52 16 188/88 100 45 01/30/19 19:26 52 16 100 Mechanical Ventilator 45 01/30/19 19:14 59 16 100 Mechanical Ventilator 45 59 16 45 01/30/19 19:00 98.5 53 16 136/79 100 45 01/30/19 19:00 16 Mechanical Ventilator 45 01/30/19 18:30 53 16 182/85 100 01/30/19 18:00 54 16 147/74 100 45 01/30/19 18:00 16 Mechanical Ventilator 45 01/30/19 17:42 142/75 01/30/19 17:30 53 16 142/75 100 45 01/30/19 17:00 53 16 142/75 100 45 01/30/19 17:00 16 Mechanical Ventilator 45 01/30/19 16:42 66 16 45 01/30/19 16:30 53 16 142/75 100 45 01/30/19 16:00 99.5 53 16 142/75 100 45 01/30/19 16:00 16 Mechanical Ventilator 45 01/30/19 16:00 Mechanical Ventilator 01/30/19 16:00 51 01/30/19 16:00 45 01/30/19 15:30 53 16 142/75 100 45 01/30/19 15:00 52 16 166/76 100 45 01/30/19 15:00 16 Mechanical Ventilator 45 01/30/19 14:50 54 16 100 Mechanical Ventilator 45 58 16 45 01/30/19 14:30 53 16 134/68 100 45 01/30/19 14:00 16 Mechanical Ventilator 45 01/30/19 14:00 53 16 153/76 100 45 Intake and Output 01/31/19 02/01/19 18:59 06:59 Intake Total 765 ml 888 ml Output Total 2150 ml 1460 ml Balance -1385 ml -572 ml Intake Oral 0 ml Free Water 120 ml IV Total 645 ml 888 ml Output Urine Total 2150 ml 1460 ml Labs Test 01/29/19 14:15 01/29/19 14:55 01/29/19 15:00 01/29/19 21:00 White Blood Count 14.1 K/UL (4.8-10.8) Red Blood Count 3.66 M/UL (4.20-5.40) Hemoglobin 11.7 G/DL (12.0-16.0) Hematocrit 35.8 % (37.0-47.0) Mean Corpuscular Volume 98 FL (80-99) Mean Corpuscular Hemoglobin 31.8 PG (27.0-31.0) Mean Corpuscular Hemoglobin Concent 32.6 G/DL (32.0-36.0) Red Cell Distribution Width 13.3 % (11.6-14.8) Platelet Count 220 K/UL (150-450) Mean Platelet Volume 6.5 FL (6.5-10.1) Neutrophils (%) (Auto) 70.9 % (45.0-75.0) Lymphocytes (%) (Auto) 15.1 % (20.0-45.0) Monocytes (%) (Auto) 10.3 % (1.0-10.0) Eosinophils (%) (Auto) 3.2 % (0.0-3.0) Basophils (%) (Auto) 0.5 % (0.0-2.0) Prothrombin Time 10.0 SEC (9.30-11.50) Prothromb Time International Ratio 0.9 (0.9-1.1) Activated Partial Thromboplast Time 27 SEC (23-33) Sodium Level 147 MMOL/L (136-145) Potassium Level 4.4 MMOL/L (3.5-5.1) Chloride Level 110 MMOL/L (98-107) Carbon Dioxide Level 26 MMOL/L (21-32) Anion Gap 11 mmol/L (5-15) Blood Urea Nitrogen 64 mg/dL (7-18) Creatinine 4.6 MG/DL (0.55-1.30) Estimat Glomerular Filtration Rate 9.8 mL/min (>60) Glucose Level 96 MG/DL (74-106) Lactic Acid Level 0.50 mmol/L (0.4-2.0) Calcium Level 9.2 MG/DL (8.5-10.1) Magnesium Level 2.6 MG/DL (1.8-2.4) Total Bilirubin 0.4 MG/DL (0.2-1.0) Aspartate Amino Transf (AST/SGOT) 13 U/L (15-37) Alanine Aminotransferase (ALT/SGPT) 14 U/L (12-78) Alkaline Phosphatase 61 U/L (46-116) Total Creatine Kinase 57 U/L (26-308) Troponin I 0.000 ng/mL (0.000-0.056) Pro-B-Type Natriuretic Peptide 2019 pg/mL (0-125) Total Protein 6.9 G/DL (6.4-8.2) Albumin 3.1 G/DL (3.4-5.0) Globulin 3.8 g/dL Albumin/Globulin Ratio 0.8 (1.0-2.7) Amylase Level 58 U/L (25-115) Lipase 80 U/L (73-393) Urine Color Pale yellow Urine Appearance Clear Urine pH 5 (4.5-8.0) Urine Specific [place] 1.010 (1.005-1.035) Urine Protein 2+ (NEGATIVE) Urine Glucose (UA) Negative (NEGATIVE) Urine Ketones Negative (NEGATIVE) Urine Blood 4+ (NEGATIVE) Urine Nitrite Negative (NEGATIVE) Urine Bilirubin Negative (NEGATIVE) Urine Urobilinogen Normal MG/DL (0.0-1.0) Urine Leukocyte Esterase 3+ (NEGATIVE) Urine RBC 15-20 /HPF (0 - 2) Urine WBC 15-20 /HPF (0 - 2) Urine Squamous Epithelial Cells Occasional /LPF Urine Bacteria Occasional /HPF (NONE) Arterial Blood pH 7.331 (7.350-7.450) 7.425 (7.350-7.450) Arterial Blood Partial Pressure CO2 45.0 mmHg (35.0-45.0) 36.2 mmHg (35.0-45.0) Arterial Blood Partial Pressure O2 60.3 mmHg (75.0-100.0) 74.5 mmHg (75.0-100.0) Arterial Blood HCO3 23.2 mmol/L (22.0-26.0) 23.2 mmol/L (22.0-26.0) Arterial Blood Oxygen Saturation 89.9 % (95-100) 94.5 % (95-100) Arterial Blood Base Excess -2.7 (-2-2) -0.8 (-2-2) Miguel Angel Test Positive Positive Test 01/30/19 05:45 01/31/19 03:50 02/01/19 04:30 02/01/19 09:30 White Blood Count 13.3 K/UL (4.8-10.8) 12.0 K/UL (4.8-10.8) 10.0 K/UL (4.8-10.8) Red Blood Count 3.32 M/UL (4.20-5.40) 3.47 M/UL (4.20-5.40) 3.44 M/UL (4.20-5.40) Hemoglobin 10.7 G/DL (12.0-16.0) 11.2 G/DL (12.0-16.0) 10.8 G/DL (12.0-16.0) Hematocrit 32.4 % (37.0-47.0) 33.5 % (37.0-47.0) 32.9 % (37.0-47.0) Mean Corpuscular Volume 97 FL (80-99) 97 FL (80-99) 96 FL (80-99) Mean Corpuscular Hemoglobin 32.1 PG (27.0-31.0) 32.3 PG (27.0-31.0) 31.4 PG (27.0-31.0) Mean Corpuscular Hemoglobin Concent 32.9 G/DL (32.0-36.0) 33.5 G/DL (32.0-36.0) 32.8 G/DL (32.0-36.0) Red Cell Distribution Width 13.2 % (11.6-14.8) 13.0 % (11.6-14.8) 12.8 % (11.6-14.8) Platelet Count 197 K/UL (150-450) 194 K/UL (150-450) 215 K/UL (150-450) Mean Platelet Volume 6.9 FL (6.5-10.1) 6.5 FL (6.5-10.1) 6.5 FL (6.5-10.1) Neutrophils (%) (Auto) 64.9 % (45.0-75.0) 64.3 % (45.0-75.0) 67.9 % (45.0-75.0) Lymphocytes (%) (Auto) 16.4 % (20.0-45.0) 19.5 % (20.0-45.0) 17.0 % (20.0-45.0) Monocytes (%) (Auto) 15.0 % (1.0-10.0) 12.8 % (1.0-10.0) 12.2 % (1.0-10.0) Eosinophils (%) (Auto) 2.9 % (0.0-3.0) 2.8 % (0.0-3.0) 2.1 % (0.0-3.0) Basophils (%) (Auto) 0.8 % (0.0-2.0) 0.5 % (0.0-2.0) 0.7 % (0.0-2.0) Sodium Level 147 MMOL/L (136-145) 144 MMOL/L (136-145) 143 MMOL/L (136-145) Potassium Level 4.1 MMOL/L (3.5-5.1) 4.2 MMOL/L (3.5-5.1) 3.8 MMOL/L (3.5-5.1) Chloride Level 110 MMOL/L (98-107) 106 MMOL/L (98-107) 107 MMOL/L (98-107) Carbon Dioxide Level 27 MMOL/L (21-32) 27 MMOL/L (21-32) 23 MMOL/L (21-32) Anion Gap 10 mmol/L (5-15) 11 mmol/L (5-15) 14 mmol/L (5-15) Blood Urea Nitrogen 61 mg/dL (7-18) 60 mg/dL (7-18) 56 mg/dL (7-18) Creatinine 4.6 MG/DL (0.55-1.30) 5.0 MG/DL (0.55-1.30) 4.7 MG/DL (0.55-1.30) Estimat Glomerular Filtration Rate 9.8 mL/min (>60) 8.9 mL/min (>60) 9.6 mL/min (>60) Glucose Level 118 MG/DL (74-106) 123 MG/DL (74-106) 126 MG/DL (74-106) Hemoglobin A1c 5.2 % (4.3-6.0) Lactic Acid Level 0.60 mmol/L (0.4-2.0) Uric Acid 8.9 MG/DL (2.6-7.2) 9.0 MG/DL (2.6-7.2) 9.3 MG/DL (2.6-7.2) Calcium Level 9.2 MG/DL (8.5-10.1) 9.5 MG/DL (8.5-10.1) 9.5 MG/DL (8.5-10.1) Phosphorus Level 5.6 MG/DL (2.5-4.9) 6.6 MG/DL (2.5-4.9) 6.6 MG/DL (2.5-4.9) Magnesium Level 2.5 MG/DL (1.8-2.4) 2.4 MG/DL (1.8-2.4) 2.1 MG/DL (1.8-2.4) Total Bilirubin 0.5 MG/DL (0.2-1.0) 0.5 MG/DL (0.2-1.0) 0.5 MG/DL (0.2-1.0) Gamma Glutamyl Transpeptidase 5 U/L (5-85) Aspartate Amino Transf (AST/SGOT) 12 U/L (15-37) 12 U/L (15-37) 11 U/L (15-37) Alanine Aminotransferase (ALT/SGPT) 13 U/L (12-78) 15 U/L (12-78) 9 U/L (12-78) Alkaline Phosphatase 52 U/L (46-116) 56 U/L (46-116) 50 U/L (46-116) Total Creatine Kinase 52 U/L (26-308) Troponin I 0.000 ng/mL (0.000-0.056) 0.013 ng/mL (0.000-0.056) C-Reactive Protein, Quantitative 6.2 mg/dL (0.00-0.90) 10.9 mg/dL (0.00-0.90) Pro-B-Type Natriuretic Peptide 1450 pg/mL (0-125) 994 pg/mL (0-125) Total Protein 6.5 G/DL (6.4-8.2) 7.2 G/DL (6.4-8.2) 6.7 G/DL (6.4-8.2) Albumin 2.9 G/DL (3.4-5.0) 3.0 G/DL (3.4-5.0) 2.7 G/DL (3.4-5.0) Globulin 3.6 g/dL 4.2 g/dL 4.0 g/dL Albumin/Globulin Ratio 0.8 (1.0-2.7) 0.7 (1.0-2.7) 0.7 (1.0-2.7) Triglycerides Level 186 MG/DL (30-150) Cholesterol Level 152 MG/DL (< 200) LDL Cholesterol 75 mg/dL (<100) HDL Cholesterol 35 MG/DL (40-60) Cholesterol/HDL Ratio 4.3 (3.3-4.4) Thyroid Stimulating Hormone (TSH) 0.548 uiU/mL (0.358-3.740) Iron Level 50 ug/dL (50-175) Total Iron Binding Capacity 198 ug/dL (250-450) Percent Iron Saturation 25 % (15-50) Unsaturated Iron Binding 148 ug/dL (112-346) Ferritin 327 NG/ML (8-388) Vitamin B12 Level 443 PG/ML (193-986) Folate 17.9 NG/ML (8.6-58.9) Free Thyroxine 0.79 NG/DL (0.76-1.46) Free Triiodothyronine 1.2 pg/mL (2.3-4.2) Test 02/01/19 11:00 Arterial Blood pH 7.402 (7.350-7.450) Arterial Blood Partial Pressure CO2 38.4 mmHg (35.0-45.0) Arterial Blood Partial Pressure O2 108.1 mmHg (75.0-100.0) Arterial Blood HCO3 23.4 mmol/L (22.0-26.0) Arterial Blood Oxygen Saturation 97.2 % (95-100) Arterial Blood Base Excess -1.2 (-2-2) Miguel Angel Test Positive Height (Feet): 5 Height (Inches): 4.00 Weight (Pounds): 218 Objective Vital Signs Gen: unresponsive Pulm: intubated on vent CV: RRR, no mgr Abd: soft, nt, d Ext: no cce Colby Canada MD Feb 01, 2019 13:55
--- NOTE | 2019-02-01 14:22 | NUR ---
RADIOLOGY NOTE: RIGHT UPPER EXTREMITY PICC PLACED.
--- NOTE | 2019-02-01 14:24 | NUR ---
NURSE NOTES: Picc line done , awaiting confirmation.Pt turned and repositioned, HOB elevate to prevent aspiration.Will continue same care plan.
--- NOTE | 2019-02-01 15:13 | Diagnostic Imaging Report ---
Indications: Needs long-term IV access Technique: Procedure performed at bedside. Procedural timeout performed. Ultrasound confirms patent compressible right basilic vein. Total sterile technique, including sterile probe cover and sterile gel, sterile gloves, hand hygiene, hat, mask,, sterile gown, large sterile drape, and preparation with 2% chlorhexidine utilized. Local anesthesia with 1% lidocaine. Under real-time ultrasound guidance, puncture basilic vein using 21-gauge needle, passage 0.018 guidewire, exchange for 4 [place] peel-away sheath. 4 [place] Bard dual-lumen power PICC cut to 36 cm. It was inserted through the peel-away sheath. Peel-away sheath and guidewire removed. Catheter fixed to the skin. Both catheter ports aspirated and flushed. Patient tolerated procedure well, without immediate complication. Followup chest x-ray obtained, documents catheter tip position at the mid superior vena cava Impression: Successful bedside placement of right arm PICC under sonographic guidance, as described above.
--- NOTE | 2019-02-01 15:49 | NUR ---
NURSE NOTES: Seen by Dr Smith, order for one time 20kcl potassium and 20mg IV Lasix.Noted and carried out. Start weaning tomorrow and hold the feeding until tomorrow per Dr Smith until weaning trial Addendum: 02/01/19 at 1807 by Bel Frias RN PT TURNED AND REPOSITIONED FOR SKIN MANAGEMENT AND COMFORT
--- NOTE | 2019-02-01 18:06 | NUR ---
NURSE NOTES: Patient turned and repositioned. Mouth care done and suctioned as tolerate.Will continue same care plan, no significant change of condition at this time.
--- NOTE | 2019-02-01 18:57 | Neurology Progress Note ---
Interim History Interim History Interim History Ms. Cole feels much better today. She is off her Versed drip. She is awake and responsive. She is able to communicate. She feels generally stronger. She is breathing comfortably. She is eager to get her endotracheal tube out. She is unable to give me any details regarding her seizure disorder. Review of Systems Neuro Review of Systems Benign. Objective Physical Exam Last Vital Signs Date Time Temp Pulse Resp B/P (MAP) Pulse Ox O2 Delivery O2 Flow Rate FiO2 02/01/19 18:00 65 16 143/79 100 Mechanical Ventilator 45 02/01/19 16:00 98.8 01/30/19 08:02 15.0 Laboratory Tests Test 02/01/19 04:30 02/01/19 09:30 02/01/19 11:00 Sodium Level 143 MMOL/L (136-145) Potassium Level 3.8 MMOL/L (3.5-5.1) Chloride Level 107 MMOL/L (98-107) Carbon Dioxide Level 23 MMOL/L (21-32) Anion Gap 14 mmol/L (5-15) Blood Urea Nitrogen 56 mg/dL (7-18) H Creatinine 4.7 MG/DL (0.55-1.30) H Estimat Glomerular Filtration Rate 9.6 mL/min (>60) Glucose Level 126 MG/DL (74-106) H Uric Acid 9.3 MG/DL (2.6-7.2) H Calcium Level 9.5 MG/DL (8.5-10.1) Phosphorus Level 6.6 MG/DL (2.5-4.9) H Magnesium Level 2.1 MG/DL (1.8-2.4) Total Bilirubin 0.5 MG/DL (0.2-1.0) Aspartate Amino Transf (AST/SGOT) 11 U/L (15-37) L Alanine Aminotransferase (ALT/SGPT) 9 U/L (12-78) L Alkaline Phosphatase 50 U/L (46-116) Troponin I 0.013 ng/mL (0.000-0.056) C-Reactive Protein, Quantitative 10.9 mg/dL (0.00-0.90) H Pro-B-Type Natriuretic Peptide 994 pg/mL (0-125) H Total Protein 6.7 G/DL (6.4-8.2) Albumin 2.7 G/DL (3.4-5.0) L Globulin 4.0 g/dL Albumin/Globulin Ratio 0.7 (1.0-2.7) L Free Thyroxine 0.79 NG/DL (0.76-1.46) Free Triiodothyronine 1.2 pg/mL (2.3-4.2) L White Blood Count 10.0 K/UL (4.8-10.8) Red Blood Count 3.44 M/UL (4.20-5.40) L Hemoglobin 10.8 G/DL (12.0-16.0) L Hematocrit 32.9 % (37.0-47.0) L Mean Corpuscular Volume 96 FL (80-99) Mean Corpuscular Hemoglobin 31.4 PG (27.0-31.0) H Mean Corpuscular Hemoglobin Concent 32.8 G/DL (32.0-36.0) Red Cell Distribution Width 12.8 % (11.6-14.8) Platelet Count 215 K/UL (150-450) Mean Platelet Volume 6.5 FL (6.5-10.1) Neutrophils (%) (Auto) 67.9 % (45.0-75.0) Lymphocytes (%) (Auto) 17.0 % (20.0-45.0) L Monocytes (%) (Auto) 12.2 % (1.0-10.0) H Eosinophils (%) (Auto) 2.1 % (0.0-3.0) Basophils (%) (Auto) 0.7 % (0.0-2.0) Arterial Blood pH 7.402 (7.350-7.450) Arterial Blood Partial Pressure CO2 38.4 mmHg (35.0-45.0) Arterial Blood Partial Pressure O2 108.1 mmHg (75.0-100.0) H Arterial Blood HCO3 23.4 mmol/L (22.0-26.0) Arterial Blood Oxygen Saturation 97.2 % (95-100) Arterial Blood Base Excess -1.2 (-2-2) Miguel Angel Test Positive Neurologic Exam Objective PHYSICAL EXAMINATION: GENERAL: She is a well-developed, well-nourished, obese lady, lying in the intensive care unit bed, connected to a ventilator through an orotracheal tube. HEAD: Normocephalic and atraumatic. EENT: Examination was benign. NECK: No neck rigidity was observed. NEUROLOGICAL EXAMINATION: MENTAL STATUS EXAMINATION: She was awake and relatively alert. She was oriented to self and hospital only. She was able to follow simple commands. She was unable to cooperate for further mental status testing. SPEECH: She was able to mouth words. LANGUAGE: She was able to comprehend and express herself though not perfectly. CRANIAL NERVE EXAMINATION: II: She was able to count fingers accurately. III, IV, : External ocular movements were full. The pupils were 3 mm in diameter and reactive sluggishly to light. V & VII: The corneal reflexes were present and equal bilaterally. VIII: She was able to hear well and had no nystagmus. IX & X: The gag reflex was present on manipulating then endotracheal tube. XI: The sternocleidomastoids and trapezii functioned well XII: The tongue was in the midline. MOTOR SYSTEM: The tone was normal in all four extremities. Examination of muscle mass revealed no focal wasting. She did have left below-knee amputation. She moved all 4 extremities on command with relatively good strength. SENSORY EXAMINATION: Light touch was symmetrical bilaterally. REFLEXES: 0 at the biceps, triceps, brachioradialis, and knees, 0 at the right ankle. The plantar response was flexor on the right side. COORDINATION, STANCE & GAIT: Could not be tested. Impression/Recommendations Diagnostic Impression 1. Ms. Bridget Cole is a 58-year-old, right-handed, lady, with a past history of a psychiatric illness, a seizure disorder, left below-knee amputation , and general debility as a result of which she lives in a fpc, who on 01/29/2019 was noted to have an altered mental state related to hypoxia associated with a pneumonia, urinary tract infection, and sepsis. Since then, she has been hospitalized and has been treated for these problems. 2. She is significantly better today. She is off her Versed drip. She is awake and responsive. She is able to communicate. She feels generally stronger. She is breathing comfortably. She is eager to get her endotracheal tube out. She is unable to give me any details regarding her seizure disorder. 3. On neurological examination, at this time, she is awake and relatively alert. She is oriented to self and hospital only. She is able to follow simple commands. She is unable to cooperate for further mental status testing. She is able to mouth words. She is able to comprehend and express herself though not perfectly. She does not demonstrate any focal findings on her cranial nerve, motor, or sensory examination. Her deep tendon reflexes however are absent but her plantar response is flexor on the right side. 4. Her latest laboratory data on my initial evaluation revealed that she still has a leukocytosis with WBC count of 12,000. She is anemic with a hemoglobin of 11.2 G. Her chemistry panel reveals a BUN elevated at 60, a creatinine elevated at 5.0, glucose elevated at 123. Her B12 level is normal at 443. Her folate is normal at 17.9. Her TSH is normal at 0.548. Her proBNP is elevated at 1450. Her latest blood gas performed on 01/29/2019 at 2100 hours reveals a pH of 7.42, pCO2 of 36, and a pO2 of 74. The Urinalysis revealed 3+leukocyte esterase, 15-20 red blood cells and white blood cells per high-power field. 5. CT scan of the brain performed on 01/29/2019 revealed atrophy and deep white matter changes. 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 6. 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 No interictal discharges were seen. 7. The patient's history, neurological examination, laboratory data, and imaging studies are most consistent with a significant toxic metabolic encephalopathy related to sepsis associated with a urinary tract infection, pneumonia, associated hypoxia, and sedation with Versed. Encephalopathy has improved significantly today. 8. Exact details of the patient's seizure disorder still unknown to us. Recommendations 1. Continue present management. 2. Continue aggressive treatment of infectious processes. 3. Continue aggressive treatment of respiratory dysfunction. 4. Repeat EEG will be ordered to evaluate the patient for type of seizure disorder, once she has been off mind altering drugs for some time. 5. Observe closely. Errol Quesada M.D., M.S.P.H. Errol Quesada MD Feb 01, 2019 18:57
--- NOTE | 2019-02-01 19:08 | NUR ---
HAND-OFF: Report given to GUZMAN Crane. Addendum: 02/01/19 at 1942 by Bel Frias RN Endorsed to follow up with peripheral sedation and no sedation for weaning, held feeding
--- NOTE | 2019-02-01 19:09 | NUR ---
NURSE NOTES: Received patient from GUZMAN Staples. Pt is alert, intubated, OGT in place and has no sign of distress. Pt is on weaver hand loom, left below the knee amputation noted, and no tube feeding is running. Bed at its lowest position, x3 bed rails are up, and call light in reach.
--- NOTE | 2019-02-01 19:25 | Cardiac Electrophysiology PN ---
Assessment/Plan Assessment/Plan 1. Respiratory failure on the vent. EF 60%. On Abx and Vent AC 16, TV 550, Fio2 45% Weaning in am 2. HTN On clonidine. Gets prn Hydralazine 10mg iv q 2 3. Acute renal failure. Denise placing stent. 4. S/P Left BKA 5. Full code DW RN Subjective Subjective In ICU on the vent off the pressors. Had Ureteral stent placement by Dr. Walker yesterday Objective Last 24 Hour Vital Signs Date Time Temp Pulse Resp B/P (MAP) Pulse Ox O2 Delivery O2 Flow Rate FiO2 02/01/19 18:00 65 16 143/79 100 Mechanical Ventilator 45 02/01/19 17:08 63 16 45 02/01/19 17:00 61 16 128/87 100 Mechanical Ventilator 45 02/01/19 16:00 98.8 70 18 111/72 99 Mechanical Ventilator 45 02/01/19 16:00 45 02/01/19 16:00 Mechanical Ventilator 02/01/19 16:00 70 02/01/19 15:04 64 16 45 02/01/19 15:00 71 18 153/86 99 Mechanical Ventilator 45 02/01/19 14:57 148/85 02/01/19 14:00 72 16 148/85 99 Mechanical Ventilator 45 02/01/19 13:22 77 16 45 02/01/19 13:00 83 17 149/87 99 Mechanical Ventilator 45 02/01/19 12:00 45 02/01/19 12:00 99.2 72 16 141/81 99 Mechanical Ventilator 45 02/01/19 12:00 72 02/01/19 12:00 Mechanical Ventilator 02/01/19 11:21 71 14 100 Mechanical Ventilator 45 02/01/19 11:11 72 17 45 45 02/01/19 11:00 75 16 160/84 99 Mechanical Ventilator 45 02/01/19 10:23 100 02/01/19 10:00 87 17 145/84 100 Mechanical Ventilator 45 02/01/19 09:29 67 16 45 45 02/01/19 09:00 68 16 141/82 99 Mechanical Ventilator 45 02/01/19 08:00 45 02/01/19 08:00 98.4 63 16 135/74 99 Mechanical Ventilator 45 02/01/19 08:00 65 02/01/19 08:00 Mechanical Ventilator 02/01/19 07:41 77 16 100 Mechanical Ventilator 45 74 16 45 02/01/19 07:30 68 16 98 02/01/19 07:29 82 18 99 02/01/19 07:00 61 16 135/72 100 Mechanical Ventilator 45 02/01/19 06:00 127/74 02/01/19 06:00 57 16 127/74 100 Mechanical Ventilator 45 02/01/19 05:28 59 16 45 02/01/19 05:00 57 16 110/69 100 Mechanical Ventilator 45 02/01/19 04:00 Mechanical Ventilator 02/01/19 04:00 57 02/01/19 04:00 98.8 58 18 133/63 100 Mechanical Ventilator 45 02/01/19 04:00 45 02/01/19 03:27 72 16 98 Mechanical Ventilator 45 70 16 45 02/01/19 03:00 61 16 99/59 100 Mechanical Ventilator 45 02/01/19 02:00 64 16 108/62 99 Mechanical Ventilator 45 02/01/19 01:19 74 16 45 02/01/19 01:00 63 16 90/45 99 Mechanical Ventilator 45 02/01/19 00:00 99.5 75 18 105/68 98 Mechanical Ventilator 45 02/01/19 00:00 71 02/01/19 00:00 45 02/01/19 00:00 Mechanical Ventilator 01/31/19 23:10 71 16 45 01/31/19 23:00 73 16 107/64 99 Mechanical Ventilator 45 01/31/19 22:00 84 16 110/74 100 Mechanical Ventilator 45 01/31/19 22:00 110/74 01/31/19 21:00 70 16 127/75 100 Mechanical Ventilator 45 01/31/19 20:58 69 16 45 01/31/19 20:00 62 01/31/19 20:00 98.8 66 18 95/65 99 Mechanical Ventilator 45 01/31/19 20:00 45 01/31/19 20:00 Mechanical Ventilator 01/31/19 19:25 61 16 99 Mechanical Ventilator 45 62 16 45 Intake and Output 01/31/19 02/01/19 19:00 07:00 Intake Total 800 ml 888 ml Output Total 2050 ml 1440 ml Balance -1250 ml -552 ml Free Water 120 ml IV Total 680 ml 888 ml Output Urine Total 2050 ml 1440 ml Laboratory Tests Test 02/01/19 04:30 02/01/19 09:30 02/01/19 11:00 Sodium Level 143 MMOL/L (136-145) Potassium Level 3.8 MMOL/L (3.5-5.1) Chloride Level 107 MMOL/L (98-107) Carbon Dioxide Level 23 MMOL/L (21-32) Anion Gap 14 mmol/L (5-15) Blood Urea Nitrogen 56 mg/dL (7-18) H Creatinine 4.7 MG/DL (0.55-1.30) H Estimat Glomerular Filtration Rate 9.6 mL/min (>60) Glucose Level 126 MG/DL (74-106) H Uric Acid 9.3 MG/DL (2.6-7.2) H Calcium Level 9.5 MG/DL (8.5-10.1) Phosphorus Level 6.6 MG/DL (2.5-4.9) H Magnesium Level 2.1 MG/DL (1.8-2.4) Total Bilirubin 0.5 MG/DL (0.2-1.0) Aspartate Amino Transf (AST/SGOT) 11 U/L (15-37) L Alanine Aminotransferase (ALT/SGPT) 9 U/L (12-78) L Alkaline Phosphatase 50 U/L (46-116) Troponin I 0.013 ng/mL (0.000-0.056) C-Reactive Protein, Quantitative 10.9 mg/dL (0.00-0.90) H Pro-B-Type Natriuretic Peptide 994 pg/mL (0-125) H Total Protein 6.7 G/DL (6.4-8.2) Albumin 2.7 G/DL (3.4-5.0) L Globulin 4.0 g/dL Albumin/Globulin Ratio 0.7 (1.0-2.7) L Free Thyroxine 0.79 NG/DL (0.76-1.46) Free Triiodothyronine 1.2 pg/mL (2.3-4.2) L White Blood Count 10.0 K/UL (4.8-10.8) Red Blood Count 3.44 M/UL (4.20-5.40) L Hemoglobin 10.8 G/DL (12.0-16.0) L Hematocrit 32.9 % (37.0-47.0) L Mean Corpuscular Volume 96 FL (80-99) Mean Corpuscular Hemoglobin 31.4 PG (27.0-31.0) H Mean Corpuscular Hemoglobin Concent 32.8 G/DL (32.0-36.0) Red Cell Distribution Width 12.8 % (11.6-14.8) Platelet Count 215 K/UL (150-450) Mean Platelet Volume 6.5 FL (6.5-10.1) Neutrophils (%) (Auto) 67.9 % (45.0-75.0) Lymphocytes (%) (Auto) 17.0 % (20.0-45.0) L Monocytes (%) (Auto) 12.2 % (1.0-10.0) H Eosinophils (%) (Auto) 2.1 % (0.0-3.0) Basophils (%) (Auto) 0.7 % (0.0-2.0) Arterial Blood pH 7.402 (7.350-7.450) Arterial Blood Partial Pressure CO2 38.4 mmHg (35.0-45.0) Arterial Blood Partial Pressure O2 108.1 mmHg (75.0-100.0) H Arterial Blood HCO3 23.4 mmol/L (22.0-26.0) Arterial Blood Oxygen Saturation 97.2 % (95-100) Arterial Blood Base Excess -1.2 (-2-2) Miguel Angel Test Positive Microbiology Date/Time Source Procedure Growth Status 01/30/19 05:00 Sputum Induced Gram Stain - Final Resulted 01/30/19 05:00 Sputum Culture - Preliminary YEAST Resulted Objective General Appearance: No acute distress HEENT: No JVD. Orally intubated on the Vent Respiratory/Chest: lungs clear Cardiovascular: RRR Abdomen: soft, non tender Extremities: no edema, other - left Justo Sinclair MD Feb 01, 2019 19:24
[2019-02-01] MEDS: Dyna-Hex 2% Top Sol 2oz TOPIC SCH (20:22)
--- NOTE | 2019-02-01 21:14 | General Progress Note ---
Assessment/Plan Problem List: (1) Acute renal failure ICD Codes: N17.9 - Acute kidney failure, unspecified SNOMED: 87789772 Qualifiers: Qualified Codes: N17.9 - Acute kidney failure, unspecified (2) Respiratory failure ICD Codes: J96.90 - Respiratory failure, unspecified, unspecified whether with hypoxia or hypercapnia SNOMED: 260335223 Qualifiers: Qualified Codes: J96.01 - Acute respiratory failure with hypoxia; J96.02 - Acute respiratory failure with hypercapnia (3) UTI (urinary tract infection) ICD Codes: N39.0 - Urinary tract infection, site not specified SNOMED: 82342654 Qualifiers: Qualified Codes: N39.0 - Urinary tract infection, site not specified (4) Schizophrenia ICD Codes: F20.9 - Schizophrenia, unspecified SNOMED: 37487905 (5) HTN (hypertension) ICD Codes: I10 - Essential (primary) hypertension SNOMED: 54900888 (6) Leukocytosis ICD Codes: D72.829 - Elevated white blood cell count, unspecified SNOMED: 605251797, 528922501 Status: progressing Assessment/Plan: s/p stent respiratory failure uti vitals stable reviewed chart and labs no dpoa to sign consent doing stent emergently to prevent mortality intubated pna edema Subjective ROS Limited/Unobtainable: Yes Allergies: Coded Allergies: Grits (Unverified Allergy, Unknown, 07/06/17) [place] (Unverified Allergy, Unknown, 07/06/17) Objective Last 24 Hour Vital Signs Date Time Temp Pulse Resp B/P (MAP) Pulse Ox O2 Delivery O2 Flow Rate FiO2 02/01/19 20:00 72 14 125/74 100 Mechanical Ventilator 45 02/01/19 19:54 72 16 99 Mechanical Ventilator 45 72 16 45 02/01/19 19:00 99.5 74 16 121/77 98 Mechanical Ventilator 45 02/01/19 18:00 65 16 143/79 100 Mechanical Ventilator 45 02/01/19 17:08 63 16 45 02/01/19 17:00 61 16 128/87 100 Mechanical Ventilator 45 02/01/19 16:00 98.8 70 18 111/72 99 Mechanical Ventilator 45 02/01/19 16:00 45 02/01/19 16:00 Mechanical Ventilator 02/01/19 16:00 70 02/01/19 15:04 64 16 45 02/01/19 15:00 71 18 153/86 99 Mechanical Ventilator 45 02/01/19 14:57 148/85 02/01/19 14:00 72 16 148/85 99 Mechanical Ventilator 45 02/01/19 13:22 77 16 45 02/01/19 13:00 83 17 149/87 99 Mechanical Ventilator 45 02/01/19 12:00 45 02/01/19 12:00 99.2 72 16 141/81 99 Mechanical Ventilator 45 02/01/19 12:00 72 02/01/19 12:00 Mechanical Ventilator 02/01/19 11:21 71 14 100 Mechanical Ventilator 45 02/01/19 11:11 72 17 45 45 02/01/19 11:00 75 16 160/84 99 Mechanical Ventilator 45 02/01/19 10:23 100 02/01/19 10:00 87 17 145/84 100 Mechanical Ventilator 45 02/01/19 09:29 67 16 45 45 02/01/19 09:00 68 16 141/82 99 Mechanical Ventilator 45 02/01/19 08:00 45 02/01/19 08:00 98.4 63 16 135/74 99 Mechanical Ventilator 45 02/01/19 08:00 65 02/01/19 08:00 Mechanical Ventilator 02/01/19 07:41 77 16 100 Mechanical Ventilator 45 74 16 45 02/01/19 07:30 68 16 98 02/01/19 07:29 82 18 99 02/01/19 07:00 61 16 135/72 100 Mechanical Ventilator 45 02/01/19 06:00 127/74 02/01/19 06:00 57 16 127/74 100 Mechanical Ventilator 45 02/01/19 05:28 59 16 45 02/01/19 05:00 57 16 110/69 100 Mechanical Ventilator 45 02/01/19 04:00 Mechanical Ventilator 02/01/19 04:00 57 02/01/19 04:00 98.8 58 18 133/63 100 Mechanical Ventilator 45 02/01/19 04:00 45 02/01/19 03:27 72 16 98 Mechanical Ventilator 45 70 16 45 02/01/19 03:00 61 16 99/59 100 Mechanical Ventilator 45 02/01/19 02:00 64 16 108/62 99 Mechanical Ventilator 45 02/01/19 01:19 74 16 45 02/01/19 01:00 63 16 90/45 99 Mechanical Ventilator 45 02/01/19 00:00 99.5 75 18 105/68 98 Mechanical Ventilator 45 02/01/19 00:00 71 02/01/19 00:00 45 02/01/19 00:00 Mechanical Ventilator 01/31/19 23:10 71 16 45 01/31/19 23:00 73 16 107/64 99 Mechanical Ventilator 45 01/31/19 22:00 84 16 110/74 100 Mechanical Ventilator 45 01/31/19 22:00 110/74 Intake and Output 01/31/19 02/01/19 19:00 07:00 Intake Total 800 ml 888 ml Output Total 2050 ml 1440 ml Balance -1250 ml -552 ml Free Water 120 ml IV Total 680 ml 888 ml Output Urine Total 2050 ml 1440 ml Laboratory Tests 02/01/19 04:30: Sodium Level 143, Potassium Level 3.8, Chloride Level 107, Carbon Dioxide Level 23, Anion Gap 14, Blood Urea Nitrogen 56H, Creatinine 4.7H, Estimat Glomerular Filtration Rate 9.6, Glucose Level 126H, Uric Acid 9.3H, Calcium Level 9.5, Phosphorus Level 6.6H, Magnesium Level 2.1, Total Bilirubin 0.5, Aspartate Amino Transf (AST/SGOT) 11L, Alanine Aminotransferase (ALT/SGPT) 9L, Alkaline Phosphatase 50, Troponin I 0.013, C-Reactive Protein, Quantitative 10.9H, Pro-B- Type Natriuretic Peptide 994H, Total Protein 6.7, Albumin 2.7L, Globulin 4.0, Albumin/Globulin Ratio 0.7L, Free Thyroxine 0.79, Free Triiodothyronine 1.2L 02/01/19 09:30: White Blood Count 10.0, Red Blood Count 3.44L, Hemoglobin 10.8L, Hematocrit 32.9L, Mean Corpuscular Volume 96, Mean Corpuscular Hemoglobin 31.4H, Mean Corpuscular Hemoglobin Concent 32.8, Red Cell Distribution Width 12.8, Platelet Count 215, Mean Platelet Volume 6.5, Neutrophils (%) (Auto) 67.9, Lymphocytes (% ) (Auto) 17.0L, Monocytes (%) (Auto) 12.2H, Eosinophils (%) (Auto) 2.1, Basophils (%) (Auto) 0.7 02/01/19 11:00: Arterial Blood pH 7.402, Arterial Blood Partial Pressure CO2 38.4, Arterial Blood Partial Pressure O2 108.1H, Arterial Blood HCO3 23.4, Arterial Blood Oxygen Saturation 97.2, Arterial Blood Base Excess -1.2, Miguel Angel Test Positive Height (Feet): 5 Height (Inches): 4.00 Weight (Pounds): 218 General Appearance: alert, confused Cardiovascular: normal rate Abdomen: non tender Isela Rubio MD Feb 01, 2019 21:14
--- NOTE | 2019-02-01 22:00 | NUR ---
NURSE NOTES: Pt is responding to questions, alert and watching TV.
--- NOTE | 2019-02-01 22:00 | NUR ---
NURSE NOTES: Charge nurse and I decided to continue feeding until 0400 for AM procedure.
--- NOTE | 2019-02-01 22:15 | Electroencephalogram ---
DATE OF PROCEDURE: 01/31/2019 REQUESTING PHYSICIAN: Isela Rubio M.D. READING PHYSICIAN: Errol Quesada M.D. PROCEDURE PERFORMED: Electroencephalogram. HISTORY: This EEG was performed on a 58-year-old lady, who was hospitalized for an alteration in mental state associated with a pulmonary and urinary tract infection. The patient also has a prior history of seizures. She has been exhibiting an altered mental state, but it should be noted that the patient is sedated with Versed. The purpose of this EEG was to evaluate the patient for the degree and type of cerebral dysfunction and to exclude ongoing ictal or interictal phenomena. TECHNICAL NOTE: This EEG was performed on a [email or web address] Unit with electrodes placed on the scalp according to the International 10-20 system. [id number] and [id number] montages were used. The EEG was technically satisfactory and was performed while the patient was in a sedated state with a continuous Versed drip. OBSERVATIONS: In the poorly responsive and sedated state, the background activity consisted of 4-5 Hz theta and 2-2.5 Hz delta activity. Triphasic waveforms with an anterior to posterior gradient were also seen. Some 10 Hz sleep spindles were also noted. The EEG frequently assumed a discontinuous pattern. At times, there was continuous activity at the rate of 6.5-7 Hz theta. No definite focal abnormalities or epileptiform discharges were seen. IMPRESSION: This is an abnormal EEG characterized by slowing of the background predominantly in the theta and delta range with the presence of slow 10 Hz spindles, triphasic waves, and at times a discontinuous quality to the EEG. At other times, brief runs of continuous 6.5-7 Hz theta activity was seen. COMMENT: This study is consistent with an encephalopathy of a toxic nature classically seen with Versed. A repeat EEG will be ordered once the patient is off all sedatives to re-evaluate her for her seizure disorder. Errol Quesada M.D., M.S.P.H. DR: DEO JOB#: [id number] [facility]
[2019-02-01] MEDS ORDERED: D5 1/2NS 1000ml IV ONE (22:34)
[2019-02-01] MEDS ORDERED: NS 275ml ONE (22:34)
--- NOTE | 2019-02-01 23:13 | NUR ---
NURSE NOTES: Pt is sleeping with no acute distress.
[2019-02-02] VITALS (24 sets, daily range): BP systolic 93–162; BP diastolic 54–105
--- NOTE | 2019-02-02 01:30 | NUR ---
NURSE NOTES: Pt is attempting to talk. Pt said she was in pain through facial expressions only after she was trying to say it. Pt nodded her head and smiled when I asked her if she was in pain. Location of the pain appears to be general after asking and pointing at her body parts from head to toe.
[2019-02-02] MEDS: Hydromorphone 0.5mg/0.5ml inj IVP PRN (01:49)
[2019-02-02] MEDS: Albuterol/Ipratropium 3ml neb HHN SCH ×5 (03:23→23:05)
--- NOTE | 2019-02-02 03:53 | NUR ---
NURSE NOTES: Pt tube feeding was turned off for AM procedure. Residual is 10mL.
--- NOTE | 2019-02-02 04:13 | NUR ---
NURSE NOTES: Pt Respiratory End Tidal CO2 reduced by 50% to 15. Most of the night RET-CO2 was 30. Rt called to confirm no vent settings changed. Will monitor pt. Pt has no sign of acute distress.
[2019-02-02 05:35] LABS: PHOSPHORUS 5.7 MG/DL (2.5-4.9)
[2019-02-02 05:36] LABS: BASOPHILS % (AUTO) 0.6 % (0.0-2.0); EOSINOPHILS % (AUTO) 3.1 % (0.0-3.0); HEMATOCRIT 29.8 % (37.0-47.0); LYMPHOCYTES % (AUTO) 25.7 % (20.0-45.0); MEAN CORPUSCULAR VOLUME 96 FL (80-99); MONOCYTES % (AUTO) 10.5 % (1.0-10.0); NEUTROPHILS % (AUTO) 60.1 % (45.0-75.0); PLATELET COUNT 210 K/UL (150-450); RED BLOOD COUNT 3.09 M/UL (4.20-5.40); RED CELL DISTRIBUTION WIDTH 12.9 % (11.6-14.8); WHITE BLOOD COUNT 10.1 K/UL (4.8-10.8)
[2019-02-02 05:46] LABS: ALANINE AMINOTRANSFERASE 8 U/L (12-78); ALBUMIN 2.7 G/DL (3.4-5.0); ALBUMIN/GLOBULIN RATIO 0.6 (1.0-2.7); ALKALINE PHOSPHATASE 50 U/L (46-116); ANION GAP 14 mmol/L (5-15); ASPARTATE AMINO TRANSFERASE 15 U/L (15-37); BILIRUBIN,TOTAL 0.5 MG/DL (0.2-1.0); BLOOD UREA NITROGEN 56 mg/dL (7-18); CALCIUM 9.6 MG/DL (8.5-10.1); CARBON DIOXIDE 23 MMOL/L (21-32); CHLORIDE 106 MMOL/L (98-107); CREATININE 3.6 MG/DL (0.55-1.30); POTASSIUM 3.9 MMOL/L (3.5-5.1); SODIUM 143 MMOL/L (136-145)
--- NOTE | 2019-02-02 07:05 | NUR ---
RESPIRATORY NOTE: Received pt on ordered vent settings. Pt airway is patent and secured. Suctioned pt PRN. No resp distress noted. Vent alarms are on and audible. Vent is plugged into red outlet. Will monitor pt progress.
--- NOTE | 2019-02-02 07:20 | NUR ---
NURSE NOTES: Received pt from Boyd Quezada RN. patient is alert, able to nod yes or no and follows commands. Orally intubated with ETT 7.0/23cm at lip line, AC 16/TV550/Fio2 45%/+5, Spo2 100%, RR 18. Bilateral breath sounds are clear. OGT clamped; Tube feeding and sedation is on hold for weaning. S/P double J sent placed on 01/31/19. FC draining pinkish urine, Dr. Hatch seen urine color at bedside. No new orders given. Right upper arm PICC noted running D51/2NS@75cc/hr. SR on golf cart maker. Ax temp 99.9, patient denies chills. Left BKA, elevated on pillow support. Bilateral soft wrist restraints in place for impulsiveness and safety. Bed locked, alarmed and in lowest position. Will continue plan of care.
--- NOTE | 2019-02-02 07:40 | NUR ---
HAND-OFF: Report given to GUZMAN Phillip.
[2019-02-02] MEDS: Meropenem 500mg/NS 55ml IVPB SCH ×4 (08:45→20:04)
[2019-02-02] MEDS: Docusate 250mg cap ORAL SCH (08:45)
[2019-02-02] MEDS: Pantoprazole Inj IVP SCH ×2 (08:45→20:21)
[2019-02-02] MEDS: Heparin 5000 units/ml inj SUBQ SCH ×2 (08:46→20:19)
--- NOTE | 2019-02-02 10:29 | Nephrology Progress Note ---
Assessment/Plan Problem List: (1) Acute renal failure Assessment: Cr lowering (2) Respiratory failure (3) HTN (hypertension) (4) Schizophrenia (5) Hydronephrosis Assessment Acute on Chronic Renal Failure- Cr lowering ? kidney mass Right hydronephrosis Ventilator Dependent Respiratory failure Left lower lobe pulmonary infiltrate Urinary tract infection ESBL UTI from correction Dehydration Seizure disorder on Clonazepam and Gabapentin Schizophrenia Hypertension Obesity Plan Adjust BP meds start feeding NGT patient had right kidney stent Off Lasix Stop all min altering meds PRN versed for sedation avoid nephrotoxics monitor renal parametes per orders Subjective ROS Limited/Unobtainable: Yes Objective Objective Last 24 Hour Vital Signs Date Time Temp Pulse Resp B/P (MAP) Pulse Ox O2 Delivery O2 Flow Rate FiO2 02/02/19 08:56 100 02/02/19 08:56 75 18 45 02/02/19 08:00 45 02/02/19 08:00 78 02/02/19 07:05 76 17 99 Mechanical Ventilator 40 77 17 45 40 02/02/19 07:00 66 16 133/79 96 Mechanical Ventilator 45 02/02/19 06:00 98.8 71 16 117/73 100 Mechanical Ventilator 45 02/02/19 06:00 117/73 02/02/19 05:15 74 18 45 02/02/19 05:00 71 16 108/72 100 Mechanical Ventilator 45 02/02/19 04:00 45 02/02/19 04:00 69 16 93/69 100 Mechanical Ventilator 45 02/02/19 04:00 Mechanical Ventilator 02/02/19 04:00 65 02/02/19 03:23 66 16 99 Mechanical Ventilator 45 66 16 45 02/02/19 03:00 98.5 63 16 102/72 99 Mechanical Ventilator 45 02/02/19 02:19 99.2 02/02/19 02:00 80 19 115/70 100 Mechanical Ventilator 45 02/02/19 01:20 74 18 45 02/02/19 01:00 84 16 121/75 98 Mechanical Ventilator 45 02/02/19 00:00 70 16 98/65 96 Mechanical Ventilator 45 02/02/19 00:00 Mechanical Ventilator 02/01/19 23:00 99.2 64 20 93/68 96 Mechanical Ventilator 45 02/01/19 22:36 69 16 99 Mechanical Ventilator 45 69 16 45 02/01/19 22:12 144/84 02/01/19 22:00 75 16 144/88 96 Mechanical Ventilator 45 02/01/19 21:00 77 16 45 02/01/19 21:00 71 16 136/79 100 Mechanical Ventilator 45 02/01/19 20:00 69 02/01/19 20:00 45 02/01/19 20:00 Mechanical Ventilator 02/01/19 20:00 72 14 125/74 100 Mechanical Ventilator 45 02/01/19 19:54 72 16 99 Mechanical Ventilator 45 72 16 45 02/01/19 19:00 99.5 74 16 121/77 98 Mechanical Ventilator 45 02/01/19 18:00 65 16 143/79 100 Mechanical Ventilator 45 02/01/19 17:08 63 16 45 02/01/19 17:00 61 16 128/87 100 Mechanical Ventilator 45 02/01/19 16:00 98.8 70 18 111/72 99 Mechanical Ventilator 45 02/01/19 16:00 45 02/01/19 16:00 Mechanical Ventilator 02/01/19 16:00 70 02/01/19 15:04 64 16 45 02/01/19 15:00 71 18 153/86 99 Mechanical Ventilator 45 02/01/19 14:57 148/85 02/01/19 14:00 72 16 148/85 99 Mechanical Ventilator 45 02/01/19 13:22 77 16 45 02/01/19 13:00 83 17 149/87 99 Mechanical Ventilator 45 02/01/19 12:00 45 02/01/19 12:00 99.2 72 16 141/81 99 Mechanical Ventilator 45 02/01/19 12:00 72 02/01/19 12:00 Mechanical Ventilator 02/01/19 11:21 71 14 100 Mechanical Ventilator 45 02/01/19 11:11 72 17 45 45 02/01/19 11:00 75 16 160/84 99 Mechanical Ventilator 45 Intake and Output 02/01/19 02/02/19 19:00 07:00 Intake Total 890 ml 902.5 ml Output Total 1125 ml 875 ml Balance -235 ml 27.5 ml IV Total 830 ml 722.5 ml Tube Feeding 60 ml 180 ml Output Urine Total 1125 ml 875 ml Laboratory Tests 02/01/19 11:00: Arterial Blood pH 7.402, Arterial Blood Partial Pressure CO2 38.4, Arterial Blood Partial Pressure O2 108.1H, Arterial Blood HCO3 23.4, Arterial Blood Oxygen Saturation 97.2, Arterial Blood Base Excess -1.2, Miguel Angel Test Positive 02/02/19 04:00: White Blood Count 10.1, Red Blood Count 3.09L, Hemoglobin 10.0L, Hematocrit 29.8L, Mean Corpuscular Volume 96, Mean Corpuscular Hemoglobin 32.4H, Mean Corpuscular Hemoglobin Concent 33.7, Red Cell Distribution Width 12.9, Platelet Count 210, Mean Platelet Volume 6.9, Neutrophils (%) (Auto) 60.1, Lymphocytes (% ) (Auto) 25.7, Monocytes (%) (Auto) 10.5H, Eosinophils (%) (Auto) 3.1H, Basophils (%) (Auto) 0.6, Sodium Level 143, Potassium Level 3.9, Chloride Level 106, Carbon Dioxide Level 23, Anion Gap 14, Blood Urea Nitrogen 56H, Creatinine 3.6H, Estimat Glomerular Filtration Rate 13.1, Glucose Level 125H, Uric Acid 8.7H, Calcium Level 9.6, Phosphorus Level 5.7H, Magnesium Level 1.9, Total Bilirubin 0.5, Aspartate Amino Transf (AST/SGOT) 15, Alanine Aminotransferase ( ALT/SGPT) 8L, Alkaline Phosphatase 50, C-Reactive Protein, Quantitative 8.5H, Pro-B-Type Natriuretic Peptide 560H, Total Protein 7.1, Albumin 2.7L, Globulin 4.4, Albumin/Globulin Ratio 0.6L 02/02/19 08:56: Arterial Blood pH 7.438, Arterial Blood Partial Pressure CO2 35.9, Arterial Blood Partial Pressure O2 77.0, Arterial Blood HCO3 23.7, Arterial Blood Oxygen Saturation 94.4L, Arterial Blood Base Excess -0.2, Miguel Angel Test Positive Height (Feet): 5 Height (Inches): 4.00 Weight (Pounds): 212 General Appearance: no apparent distress EENT: other - vented Cardiovascular: normal rate Respiratory/Chest: decreased breath sounds Abdomen: distended Derrell Hatch MD Feb 02, 2019 10:29
--- NOTE | 2019-02-02 10:39 | NUR ---
NURSE NOTES: Notified Dr. Smith patient has been tolerating weaning well on CPAP/PS 5 for 2 hours. ABG drawn and results notified to MD. Received orders to do cuff test with RT and if patient passes, OK to extubate patient and place on cool aerosol. read back given and verified.
--- NOTE | 2019-02-02 11:08 | Infectious Diseases Prog Note ---
Assessment/Plan Assessment/Plan A; Sepsis Positive blood culture, contamination Acute renal failure Acute respiratory failure, hypoxemic Hydronephrosis Obstructive uropathy Schizophrenia P; Continue Meropenem Subjective ROS Limited/Unobtainable: Yes Respiratory: Reports: other - on weaning process Allergies: Coded Allergies: Grits (Unverified Allergy, Unknown, 07/06/17) [place] (Unverified Allergy, Unknown, 07/06/17) Objective Vital Signs Last 24 Hour Vital Signs Date Time Temp Pulse Resp B/P (MAP) Pulse Ox O2 Delivery O2 Flow Rate FiO2 02/02/19 10:50 76 144/88 02/02/19 10:00 76 18 144/88 95 Mechanical Ventilator 45 02/02/19 09:00 81 19 144/85 95 Mechanical Ventilator 45 02/02/19 08:56 100 02/02/19 08:56 75 18 45 02/02/19 08:00 99.9 75 21 147/88 96 Mechanical Ventilator 45 02/02/19 08:00 45 02/02/19 08:00 Mechanical Ventilator 02/02/19 08:00 78 02/02/19 07:05 76 17 99 Mechanical Ventilator 40 77 17 45 40 02/02/19 07:00 66 16 133/79 96 Mechanical Ventilator 45 02/02/19 06:00 98.8 71 16 117/73 100 Mechanical Ventilator 45 02/02/19 06:00 117/73 02/02/19 05:15 74 18 45 02/02/19 05:00 71 16 108/72 100 Mechanical Ventilator 45 02/02/19 04:00 45 02/02/19 04:00 69 16 93/69 100 Mechanical Ventilator 45 02/02/19 04:00 Mechanical Ventilator 02/02/19 04:00 65 02/02/19 03:23 66 16 99 Mechanical Ventilator 45 66 16 45 02/02/19 03:00 98.5 63 16 102/72 99 Mechanical Ventilator 45 02/02/19 02:19 99.2 02/02/19 02:00 80 19 115/70 100 Mechanical Ventilator 45 02/02/19 01:20 74 18 45 02/02/19 01:00 84 16 121/75 98 Mechanical Ventilator 45 02/02/19 00:00 70 16 98/65 96 Mechanical Ventilator 45 02/02/19 00:00 Mechanical Ventilator 02/01/19 23:00 99.2 64 20 93/68 96 Mechanical Ventilator 45 02/01/19 22:36 69 16 99 Mechanical Ventilator 45 69 16 45 02/01/19 22:12 144/84 02/01/19 22:00 75 16 144/88 96 Mechanical Ventilator 45 02/01/19 21:00 77 16 45 02/01/19 21:00 71 16 136/79 100 Mechanical Ventilator 45 02/01/19 20:00 69 02/01/19 20:00 45 02/01/19 20:00 Mechanical Ventilator 02/01/19 20:00 72 14 125/74 100 Mechanical Ventilator 45 02/01/19 19:54 72 16 99 Mechanical Ventilator 45 72 16 45 02/01/19 19:00 99.5 74 16 121/77 98 Mechanical Ventilator 45 02/01/19 18:00 65 16 143/79 100 Mechanical Ventilator 45 02/01/19 17:08 63 16 45 02/01/19 17:00 61 16 128/87 100 Mechanical Ventilator 45 02/01/19 16:00 98.8 70 18 111/72 99 Mechanical Ventilator 45 02/01/19 16:00 45 02/01/19 16:00 Mechanical Ventilator 02/01/19 16:00 70 02/01/19 15:04 64 16 45 02/01/19 15:00 71 18 153/86 99 Mechanical Ventilator 45 02/01/19 14:57 148/85 02/01/19 14:00 72 16 148/85 99 Mechanical Ventilator 45 02/01/19 13:22 77 16 45 02/01/19 13:00 83 17 149/87 99 Mechanical Ventilator 45 02/01/19 12:00 45 02/01/19 12:00 99.2 72 16 141/81 99 Mechanical Ventilator 45 02/01/19 12:00 72 02/01/19 12:00 Mechanical Ventilator 02/01/19 11:21 71 14 100 Mechanical Ventilator 45 02/01/19 11:11 72 17 45 45 Height (Feet): 5 Height (Inches): 4.00 Weight (Pounds): 212 General Appearance: no acute distress HEENT: other - orally intubated Respiratory/Chest: lungs clear, other - on ventilator Cardiovascular: normal rate, other - R arm PICC line Abdomen: soft, non tender, other - orogastric tube Extremities: no edema, other - left BKA Neurologic/Psychiatric: alert, responsive Laboratory Tests Test 02/02/19 04:00 02/02/19 08:56 White Blood Count 10.1 K/UL (4.8-10.8) Red Blood Count 3.09 M/UL (4.20-5.40) L Hemoglobin 10.0 G/DL (12.0-16.0) L Hematocrit 29.8 % (37.0-47.0) L Mean Corpuscular Volume 96 FL (80-99) Mean Corpuscular Hemoglobin 32.4 PG (27.0-31.0) H Mean Corpuscular Hemoglobin Concent 33.7 G/DL (32.0-36.0) Red Cell Distribution Width 12.9 % (11.6-14.8) Platelet Count 210 K/UL (150-450) Mean Platelet Volume 6.9 FL (6.5-10.1) Neutrophils (%) (Auto) 60.1 % (45.0-75.0) Lymphocytes (%) (Auto) 25.7 % (20.0-45.0) Monocytes (%) (Auto) 10.5 % (1.0-10.0) H Eosinophils (%) (Auto) 3.1 % (0.0-3.0) H Basophils (%) (Auto) 0.6 % (0.0-2.0) Sodium Level 143 MMOL/L (136-145) Potassium Level 3.9 MMOL/L (3.5-5.1) Chloride Level 106 MMOL/L (98-107) Carbon Dioxide Level 23 MMOL/L (21-32) Anion Gap 14 mmol/L (5-15) Blood Urea Nitrogen 56 mg/dL (7-18) H Creatinine 3.6 MG/DL (0.55-1.30) H Estimat Glomerular Filtration Rate 13.1 mL/min (>60) Glucose Level 125 MG/DL (74-106) H Uric Acid 8.7 MG/DL (2.6-7.2) H Calcium Level 9.6 MG/DL (8.5-10.1) Phosphorus Level 5.7 MG/DL (2.5-4.9) H Magnesium Level 1.9 MG/DL (1.8-2.4) Total Bilirubin 0.5 MG/DL (0.2-1.0) Aspartate Amino Transf (AST/SGOT) 15 U/L (15-37) Alanine Aminotransferase (ALT/SGPT) 8 U/L (12-78) L Alkaline Phosphatase 50 U/L (46-116) C-Reactive Protein, Quantitative 8.5 mg/dL (0.00-0.90) H Pro-B-Type Natriuretic Peptide 560 pg/mL (0-125) H Total Protein 7.1 G/DL (6.4-8.2) Albumin 2.7 G/DL (3.4-5.0) L Globulin 4.4 g/dL Albumin/Globulin Ratio 0.6 (1.0-2.7) L Arterial Blood pH 7.438 (7.350-7.450) Arterial Blood Partial Pressure CO2 35.9 mmHg (35.0-45.0) Arterial Blood Partial Pressure O2 77.0 mmHg (75.0-100.0) Arterial Blood HCO3 23.7 mmol/L (22.0-26.0) Arterial Blood Oxygen Saturation 94.4 % (95-100) L Arterial Blood Base Excess -0.2 (-2-2) Miguel Angel Test Positive Current Medications Medications (Trade) Dose Ordered Sig/William Route PRN Reason Start Time Stop Time Status Last Admin Dose Admin Acetaminophen (Tylenol) 650 mg Q6H PRN ORAL Fever (temp>100.5F) 01/29/19 18:30 02/28/19 18:29 Albuterol/ Ipratropium (Albuterol/ Ipratropium) 3 ml Q4HRT HHN 01/29/19 23:00 02/03/19 22:59 02/02/19 07:12 Bisacodyl (Dulcolax) 10 mg DAILYPRN PRN RECTAL Constipation 01/29/19 20:00 02/28/19 19:59 Carvedilol (Coreg) 3.125 mg EVERY 12 HOURS NG 02/02/19 10:30 03/04/19 10:29 02/02/19 10:50 Chlorhexidine Gluconate (Genevieve-Hex 2%) 1 applic DAILY@1999 TOPIC 02/01/19 20:00 02/28/19 19:59 02/01/19 20:22 Dextrose (Dextrose 50%) 25 ml Q30M PRN IV Hypoglycemia 01/29/19 18:30 02/28/19 18:29 Dextrose (Dextrose 50%) 50 ml Q30M PRN IV Hypoglycemia 01/29/19 18:30 02/28/19 18:29 Dextrose/Sodium Chloride 1,000 ml @ 75 mls/hr [id number] IV 01/31/19 07:52 03/02/19 07:51 02/01/19 22:06 Docusate Sodium (Colace) 250 mg DAILY ORAL 01/30/19 09:00 03/01/19 08:59 02/02/19 08:45 Heparin Sodium (Porcine) (Heparin 5000 units/ml) 5,000 units EVERY 12 HOURS SUBQ 01/30/19 09:00 03/01/19 08:59 02/02/19 08:46 Hydralazine HCl (Apresoline) 10 mg Q2H PRN IV For High Blood Pressure 01/31/19 15:45 03/02/19 15:44 Hydralazine HCl (Apresoline) 10 mg Q6HR NG 02/02/19 12:00 03/04/19 11:59 Hydromorphone HCl (Dilaudid) 0.5 mg Q2H PRN IVP For Pain 01/29/19 18:30 02/05/19 18:29 02/02/19 01:49 Meropenem 500 mg/ Sodium Chloride 55 ml @ 110 mls/hr Q12HR@0800,2000 IVPB 01/29/19 20:00 02/03/19 19:59 02/02/19 08:45 Midazolam HCl 100 ml @ 0 mls/hr Q24H PRN IV Restlessness 01/29/19 19:00 02/05/19 18:59 01/30/19 08:02 Pantoprazole (Protonix) 40 mg EVERY 12 HOURS IVP 01/31/19 21:00 03/02/19 20:59 02/02/19 08:45 Jose Solis MD Feb 02, 2019 11:08
--- NOTE | 2019-02-02 11:15 | NUR ---
NURSE NOTES: Cuff leak test passed, resumed extubation as ordered. No stridor, unlabored and even breathing noted. Oral sxn provided. Placed patient on 2LNC, SPo2 95%. Removed OGT and removed restraints as ordered. RN bedside swallow test performed; no signs of aspiration noted.
--- NOTE | 2019-02-02 11:15 | NUR ---
RESPIRATORY NOTE: Pt extubated per MD order. No resp distress, no stridor noted. Suctioned pt PRN. Pt placed on 3Lpm N/C. Will monitor pt progress.
--- NOTE | 2019-02-02 12:00 | Hematology/Onc Progress Note ---
Assessment/Plan Assessment/Plan Assessment/Plan: # Anemia of chronic disease due to underlying chronic medical issues, multifactorial --> Anemia workup has been ordered, rule out gi bleed -> Cw acd --> ferritin is 327 --> No evidence of hemolysis is noted, peripheral smear has been reviewed. --> Hgb goal >7. Transfuse prn. --> Epogen or iron at this time is not particularly indicated --> Medications have been reviewed --> low threshold for gi evaluation in case has occult + --> hgb trend 11.7-->10.7->10.8->10 # Leukocytosis is likely related to infection, reactive process, on abx at this time, potentially had acute pyelonephritis on presentation, likely esbl uti --> have reviewed peripheral smear and bandemia/neutrophilia noted --> continue antibiotics if they have been started by ID team --> monitor for resolution --> trend as needed # Left kidney mass -- 5 cm low-attenuation lesion demonstrating slightly higher than normal fluid attenuation coming off of the upper pole left kidney --> likely represents a complex possibly proteinaceous cyst, but necrotic solid mass also possible. # Dehydration --> ivf have been started --> anti-nausea meds started --> trend bun and cr # S/P BKA (below knee amputation) unilateral --> left leg s/p amputation # Anxiety --> as per psych # Left hydronephrosis --> per uro --> 11.4 Cystoscopy, Right JJ stent placement, fluoroscopy # Resp failure now on 2lnc # Dvt ppx heparin sq The timing of this note does not necessarily reflect the time of the patient was seen. Greatly appreciate consultation! Subjective HEENT: Denies: no symptoms, eye pain, blurred vision, tearing, double vision, ear pain, ear discharge, nose pain, nose congestion, throat pain, throat swelling, mouth pain, mouth swelling, other Respiratory: Denies: no symptoms, cough, shortness of breath, SOB with excertion, SOB at rest, sputum, wheezing, other Gastrointestinal/Abdominal: Denies: no symptoms, abdomen distended, abdominal pain, black stools, tarry stools, blood in stool, constipated, diarrhea, difficulty swallowing, nausea, poor appetite, poor fluid intake, rectal bleeding , vomiting, other Genitourinary: Denies: no symptoms, burning, discharge, frequency, flank pain, hematuria, incontinence, pain, urgency, other Neurologic/Psychiatric: Denies: no symptoms, anxiety, depressed, emotional problems, headache, numbness, paresthesia, pre-existing deficit, seizure, tingling, tremors, weakness, other Endocrine: Denies: no symptoms, excessive sweating, flushing, intolerance to cold, intolerance to heat, increased hunger, increased thirst, increased urine, unexplained weight gain, unexplained weight loss, other Allergies: Coded Allergies: Grits (Unverified Allergy, Unknown, 07/06/17) Davin (Unverified Allergy, Unknown, 07/06/17) Subjective 01/31: is for stent placement today, no events, labs noted 02/01: no events, jevity started, andreea rn, on vent 02/02: no bleeding or chills, no events otherwise Objective Objective Current Medications Medications (Trade) Dose Ordered Sig/William Route PRN Reason Start Time Stop Time Status Last Admin Dose Admin Acetaminophen (Tylenol) 650 mg Q6H PRN ORAL Fever (temp>100.5F) 01/29/19 18:30 02/28/19 18:29 Albuterol/ Ipratropium (Albuterol/ Ipratropium) 3 ml Q4HRT HHN 01/29/19 23:00 02/03/19 22:59 02/02/19 11:17 Bisacodyl (Dulcolax) 10 mg DAILYPRN PRN RECTAL Constipation 01/29/19 20:00 02/28/19 19:59 Carvedilol (Coreg) 3.125 mg EVERY 12 HOURS NG 02/02/19 10:30 03/04/19 10:29 02/02/19 10:50 Chlorhexidine Gluconate (Genevieve-Hex 2%) 1 applic DAILY@2000 TOPIC 02/01/19 20:00 02/28/19 19:59 02/01/19 20:22 Dextrose (Dextrose 50%) 25 ml Q30M PRN IV Hypoglycemia 01/29/19 18:30 02/28/19 18:29 Dextrose (Dextrose 50%) 50 ml Q30M PRN IV Hypoglycemia 01/29/19 18:30 02/28/19 18:29 Dextrose/Sodium Chloride 1,000 ml @ 75 mls/hr [id number] IV 01/31/19 07:52 03/02/19 07:51 02/01/19 22:06 Docusate Sodium (Colace) 250 mg DAILY ORAL 01/30/19 09:00 03/01/19 08:59 02/02/19 08:45 Heparin Sodium (Porcine) (Heparin 5000 units/ml) 5,000 units EVERY 12 HOURS SUBQ 01/30/19 09:00 03/01/19 08:59 02/02/19 08:46 Hydralazine HCl (Apresoline) 10 mg Q2H PRN IV For High Blood Pressure 01/31/19 15:45 03/02/19 15:44 Hydralazine HCl (Apresoline) 10 mg Q6HR NG 02/02/19 12:00 03/04/19 11:59 Hydromorphone HCl (Dilaudid) 0.5 mg Q2H PRN IVP For Pain 01/29/19 18:30 02/05/19 18:29 02/02/19 01:49 Meropenem 500 mg/ Sodium Chloride 55 ml @ 110 mls/hr Q12HR@0800,2000 IVPB 01/29/19 20:00 02/03/19 19:59 02/02/19 08:45 Midazolam HCl 100 ml @ 0 mls/hr Q24H PRN IV Restlessness 01/29/19 19:00 02/05/19 18:59 01/30/19 08:02 Pantoprazole (Protonix) 40 mg EVERY 12 HOURS IVP 01/31/19 21:00 03/02/19 20:59 02/02/19 08:45 Last 24 Hour Vital Signs Date Time Temp Pulse Resp B/P (MAP) Pulse Ox O2 Delivery O2 Flow Rate FiO2 02/02/19 11:15 Nasal Cannula 3.0 32 02/02/19 10:50 76 144/88 02/02/19 10:00 76 18 144/88 95 Mechanical Ventilator 45 02/02/19 09:00 81 19 144/85 95 Mechanical Ventilator 45 02/02/19 08:56 100 02/02/19 08:56 75 18 45 02/02/19 08:00 99.9 75 21 147/88 96 Mechanical Ventilator 45 02/02/19 08:00 45 02/02/19 08:00 Mechanical Ventilator 02/02/19 08:00 78 02/02/19 07:05 76 17 99 Mechanical Ventilator 40 77 17 45 40 02/02/19 07:00 66 16 133/79 96 Mechanical Ventilator 45 02/02/19 06:00 98.8 71 16 117/73 100 Mechanical Ventilator 45 02/02/19 06:00 117/73 02/02/19 05:15 74 18 45 02/02/19 05:00 71 16 108/72 100 Mechanical Ventilator 45 02/02/19 04:00 45 02/02/19 04:00 69 16 93/69 100 Mechanical Ventilator 45 02/02/19 04:00 Mechanical Ventilator 02/02/19 04:00 65 02/02/19 03:23 66 16 99 Mechanical Ventilator 45 66 16 45 02/02/19 03:00 98.5 63 16 102/72 99 Mechanical Ventilator 45 02/02/19 02:19 99.2 02/02/19 02:00 80 19 115/70 100 Mechanical Ventilator 45 02/02/19 01:20 74 18 45 02/02/19 01:00 84 16 121/75 98 Mechanical Ventilator 45 02/02/19 00:00 70 16 98/65 96 Mechanical Ventilator 45 02/02/19 00:00 Mechanical Ventilator 02/01/19 23:00 99.2 64 20 93/68 96 Mechanical Ventilator 45 02/01/19 22:36 69 16 99 Mechanical Ventilator 45 69 16 45 02/01/19 22:12 144/84 02/01/19 22:00 75 16 144/88 96 Mechanical Ventilator 45 02/01/19 21:00 77 16 45 02/01/19 21:00 71 16 136/79 100 Mechanical Ventilator 45 02/01/19 20:00 69 02/01/19 20:00 45 02/01/19 20:00 Mechanical Ventilator 02/01/19 20:00 72 14 125/74 100 Mechanical Ventilator 45 02/01/19 19:54 72 16 99 Mechanical Ventilator 45 72 16 45 02/01/19 19:00 99.5 74 16 121/77 98 Mechanical Ventilator 45 02/01/19 18:00 65 16 143/79 100 Mechanical Ventilator 45 02/01/19 17:08 63 16 45 02/01/19 17:00 61 16 128/87 100 Mechanical Ventilator 45 02/01/19 16:00 98.8 70 18 111/72 99 Mechanical Ventilator 45 02/01/19 16:00 45 02/01/19 16:00 Mechanical Ventilator 02/01/19 16:00 70 02/01/19 15:04 64 16 45 02/01/19 15:00 71 18 153/86 99 Mechanical Ventilator 45 02/01/19 14:57 148/85 02/01/19 14:00 72 16 148/85 99 Mechanical Ventilator 45 02/01/19 13:22 77 16 45 02/01/19 13:00 83 17 149/87 99 Mechanical Ventilator 45 02/01/19 12:00 45 02/01/19 12:00 99.2 72 16 141/81 99 Mechanical Ventilator 45 02/01/19 12:00 72 02/01/19 12:00 Mechanical Ventilator 02/01/19 11:21 71 14 100 Mechanical Ventilator 45 02/01/19 11:11 72 17 45 45 02/01/19 11:00 75 16 160/84 99 Mechanical Ventilator 45 02/01/19 10:23 100 02/01/19 10:00 87 17 145/84 100 Mechanical Ventilator 45 02/01/19 09:29 67 16 45 45 02/01/19 09:00 68 16 141/82 99 Mechanical Ventilator 45 02/01/19 08:00 45 02/01/19 08:00 98.4 63 16 135/74 99 Mechanical Ventilator 45 02/01/19 08:00 65 02/01/19 08:00 Mechanical Ventilator 02/01/19 07:41 77 16 100 Mechanical Ventilator 45 74 16 45 02/01/19 07:30 68 16 98 02/01/19 07:29 82 18 99 02/01/19 07:00 61 16 135/72 100 Mechanical Ventilator 45 02/01/19 06:00 127/74 02/01/19 06:00 57 16 127/74 100 Mechanical Ventilator 45 02/01/19 05:28 59 16 45 02/01/19 05:00 57 16 110/69 100 Mechanical Ventilator 45 02/01/19 04:00 Mechanical Ventilator 02/01/19 04:00 57 02/01/19 04:00 98.8 58 18 133/63 100 Mechanical Ventilator 45 02/01/19 04:00 45 02/01/19 03:27 72 16 98 Mechanical Ventilator 45 70 16 45 02/01/19 03:00 61 16 99/59 100 Mechanical Ventilator 45 02/01/19 02:00 64 16 108/62 99 Mechanical Ventilator 45 02/01/19 01:19 74 16 45 02/01/19 01:00 63 16 90/45 99 Mechanical Ventilator 45 02/01/19 00:00 99.5 75 18 105/68 98 Mechanical Ventilator 45 02/01/19 00:00 71 02/01/19 00:00 45 02/01/19 00:00 Mechanical Ventilator 01/31/19 23:10 71 16 45 01/31/19 23:00 73 16 107/64 99 Mechanical Ventilator 45 01/31/19 22:00 84 16 110/74 100 Mechanical Ventilator 45 01/31/19 22:00 110/74 01/31/19 21:00 70 16 127/75 100 Mechanical Ventilator 45 01/31/19 20:58 69 16 45 01/31/19 20:00 62 01/31/19 20:00 98.8 66 18 95/65 99 Mechanical Ventilator 45 01/31/19 20:00 45 01/31/19 20:00 Mechanical Ventilator 01/31/19 19:25 61 16 99 Mechanical Ventilator 45 62 16 45 01/31/19 19:00 64 16 127/76 100 Mechanical Ventilator 45 01/31/19 18:00 61 16 144/80 100 Mechanical Ventilator 45 01/31/19 17:29 66 17 45 01/31/19 17:00 63 16 192/89 100 Mechanical Ventilator 45 01/31/19 17:00 98.6 62 18 92/66 100 Mechanical Ventilator 45 01/31/19 16:00 62 01/31/19 16:00 45 01/31/19 16:00 63 16 192/89 100 Mechanical Ventilator 45 01/31/19 16:00 Mechanical Ventilator 01/31/19 15:20 73 16 100 Mechanical Ventilator 45 74 16 45 01/31/19 15:00 61 16 115/79 100 Mechanical Ventilator 45 01/31/19 14:31 189/84 01/31/19 12:00 98.4 62 16 171/97 100 Mechanical Ventilator 45 01/31/19 12:00 45 01/31/19 12:00 62 01/31/19 12:00 Mechanical Ventilator Intake and Output 02/01/19 02/02/19 19:00 07:00 Intake Total 890 ml 902.5 ml Output Total 1125 ml 875 ml Balance -235 ml 27.5 ml IV Total 830 ml 722.5 ml Tube Feeding 60 ml 180 ml Output Urine Total 1125 ml 875 ml Labs Test 01/31/19 03:50 02/01/19 04:30 02/01/19 09:30 02/01/19 11:00 White Blood Count 12.0 K/UL (4.8-10.8) 10.0 K/UL (4.8-10.8) Red Blood Count 3.47 M/UL (4.20-5.40) 3.44 M/UL (4.20-5.40) Hemoglobin 11.2 G/DL (12.0-16.0) 10.8 G/DL (12.0-16.0) Hematocrit 33.5 % (37.0-47.0) 32.9 % (37.0-47.0) Mean Corpuscular Volume 97 FL (80-99) 96 FL (80-99) Mean Corpuscular Hemoglobin 32.3 PG (27.0-31.0) 31.4 PG (27.0-31.0) Mean Corpuscular Hemoglobin Concent 33.5 G/DL (32.0-36.0) 32.8 G/DL (32.0-36.0) Red Cell Distribution Width 13.0 % (11.6-14.8) 12.8 % (11.6-14.8) Platelet Count 194 K/UL (150-450) 215 K/UL (150-450) Mean Platelet Volume 6.5 FL (6.5-10.1) 6.5 FL (6.5-10.1) Neutrophils (%) (Auto) 64.3 % (45.0-75.0) 67.9 % (45.0-75.0) Lymphocytes (%) (Auto) 19.5 % (20.0-45.0) 17.0 % (20.0-45.0) Monocytes (%) (Auto) 12.8 % (1.0-10.0) 12.2 % (1.0-10.0) Eosinophils (%) (Auto) 2.8 % (0.0-3.0) 2.1 % (0.0-3.0) Basophils (%) (Auto) 0.5 % (0.0-2.0) 0.7 % (0.0-2.0) Sodium Level 144 MMOL/L (136-145) 143 MMOL/L (136-145) Potassium Level 4.2 MMOL/L (3.5-5.1) 3.8 MMOL/L (3.5-5.1) Chloride Level 106 MMOL/L (98-107) 107 MMOL/L (98-107) Carbon Dioxide Level 27 MMOL/L (21-32) 23 MMOL/L (21-32) Anion Gap 11 mmol/L (5-15) 14 mmol/L (5-15) Blood Urea Nitrogen 60 mg/dL (7-18) 56 mg/dL (7-18) Creatinine 5.0 MG/DL (0.55-1.30) 4.7 MG/DL (0.55-1.30) Estimat Glomerular Filtration Rate 8.9 mL/min (>60) 9.6 mL/min (>60) Glucose Level 123 MG/DL (74-106) 126 MG/DL (74-106) Uric Acid 9.0 MG/DL (2.6-7.2) 9.3 MG/DL (2.6-7.2) Calcium Level 9.5 MG/DL (8.5-10.1) 9.5 MG/DL (8.5-10.1) Phosphorus Level 6.6 MG/DL (2.5-4.9) 6.6 MG/DL (2.5-4.9) Magnesium Level 2.4 MG/DL (1.8-2.4) 2.1 MG/DL (1.8-2.4) Iron Level 50 ug/dL (50-175) Total Iron Binding Capacity 198 ug/dL (250-450) Percent Iron Saturation 25 % (15-50) Unsaturated Iron Binding 148 ug/dL (112-346) Ferritin 327 NG/ML (8-388) Total Bilirubin 0.5 MG/DL (0.2-1.0) 0.5 MG/DL (0.2-1.0) Aspartate Amino Transf (AST/SGOT) 12 U/L (15-37) 11 U/L (15-37) Alanine Aminotransferase (ALT/SGPT) 15 U/L (12-78) 9 U/L (12-78) Alkaline Phosphatase 56 U/L (46-116) 50 U/L (46-116) Total Protein 7.2 G/DL (6.4-8.2) 6.7 G/DL (6.4-8.2) Albumin 3.0 G/DL (3.4-5.0) 2.7 G/DL (3.4-5.0) Globulin 4.2 g/dL 4.0 g/dL Albumin/Globulin Ratio 0.7 (1.0-2.7) 0.7 (1.0-2.7) Vitamin B12 Level 443 PG/ML (193-986) Folate 17.9 NG/ML (8.6-58.9) Troponin I 0.013 ng/mL (0.000-0.056) C-Reactive Protein, Quantitative 10.9 mg/dL (0.00-0.90) Pro-B-Type Natriuretic Peptide 994 pg/mL (0-125) Free Thyroxine 0.79 NG/DL (0.76-1.46) Free Triiodothyronine 1.2 pg/mL (2.3-4.2) Arterial Blood pH 7.402 (7.350-7.450) Arterial Blood Partial Pressure CO2 38.4 mmHg (35.0-45.0) Arterial Blood Partial Pressure O2 108.1 mmHg (75.0-100.0) Arterial Blood HCO3 23.4 mmol/L (22.0-26.0) Arterial Blood Oxygen Saturation 97.2 % (95-100) Arterial Blood Base Excess -1.2 (-2-2) Miguel Angel Test Positive Test 02/02/19 04:00 02/02/19 08:56 White Blood Count 10.1 K/UL (4.8-10.8) Red Blood Count 3.09 M/UL (4.20-5.40) Hemoglobin 10.0 G/DL (12.0-16.0) Hematocrit 29.8 % (37.0-47.0) Mean Corpuscular Volume 96 FL (80-99) Mean Corpuscular Hemoglobin 32.4 PG (27.0-31.0) Mean Corpuscular Hemoglobin Concent 33.7 G/DL (32.0-36.0) Red Cell Distribution Width 12.9 % (11.6-14.8) Platelet Count 210 K/UL (150-450) Mean Platelet Volume 6.9 FL (6.5-10.1) Neutrophils (%) (Auto) 60.1 % (45.0-75.0) Lymphocytes (%) (Auto) 25.7 % (20.0-45.0) Monocytes (%) (Auto) 10.5 % (1.0-10.0) Eosinophils (%) (Auto) 3.1 % (0.0-3.0) Basophils (%) (Auto) 0.6 % (0.0-2.0) Sodium Level 143 MMOL/L (136-145) Potassium Level 3.9 MMOL/L (3.5-5.1) Chloride Level 106 MMOL/L (98-107) Carbon Dioxide Level 23 MMOL/L (21-32) Anion Gap 14 mmol/L (5-15) Blood Urea Nitrogen 56 mg/dL (7-18) Creatinine 3.6 MG/DL (0.55-1.30) Estimat Glomerular Filtration Rate 13.1 mL/min (>60) Glucose Level 125 MG/DL (74-106) Uric Acid 8.7 MG/DL (2.6-7.2) Calcium Level 9.6 MG/DL (8.5-10.1) Phosphorus Level 5.7 MG/DL (2.5-4.9) Magnesium Level 1.9 MG/DL (1.8-2.4) Total Bilirubin 0.5 MG/DL (0.2-1.0) Aspartate Amino Transf (AST/SGOT) 15 U/L (15-37) Alanine Aminotransferase (ALT/SGPT) 8 U/L (12-78) Alkaline Phosphatase 50 U/L (46-116) C-Reactive Protein, Quantitative 8.5 mg/dL (0.00-0.90) Pro-B-Type Natriuretic Peptide 560 pg/mL (0-125) Total Protein 7.1 G/DL (6.4-8.2) Albumin 2.7 G/DL (3.4-5.0) Globulin 4.4 g/dL Albumin/Globulin Ratio 0.6 (1.0-2.7) Arterial Blood pH 7.438 (7.350-7.450) Arterial Blood Partial Pressure CO2 35.9 mmHg (35.0-45.0) Arterial Blood Partial Pressure O2 77.0 mmHg (75.0-100.0) Arterial Blood HCO3 23.7 mmol/L (22.0-26.0) Arterial Blood Oxygen Saturation 94.4 % (95-100) Arterial Blood Base Excess -0.2 (-2-2) Miguel Angel Test Positive Height (Feet): 5 Height (Inches): 4.00 Weight (Pounds): 212 Objective Vital Signs Gen:more responsive today Pulm:EXTUBATED on 2lnc CV: RRR, no mgr Abd: soft, nt, d Ext: no cce Colby Canada MD Feb 02, 2019 12:00
--- NOTE | 2019-02-02 12:20 | NUR ---
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
[2019-02-02] MEDS: HydrALAZINE 10mg Tab NG SCH ×2 (12:40→18:19)
[2019-02-02] MEDS: D5 1/2NS 1,000 ML IV SCH (12:40)
--- NOTE | 2019-02-02 13:14 | NUR ---
NURSE NOTES: Patient tolerating well on 2LNC, calm and cooperative, no signs of distress.
--- NOTE | 2019-02-02 15:27 | NUR ---
NURSE NOTES: Spoke to [facility], Video swallow to be scheduled for tomorrow. Turned and repositioned. Spo2 92-94%, breathing even and unlabored.
--- NOTE | 2019-02-02 17:00 | NUR ---
NURSE NOTES: Resting comfortably in bed. Oral care done. No signs of distress noted.
--- NOTE | 2019-02-02 17:25 | Cardiac Electrophysiology PN ---
Assessment/Plan Assessment/Plan 1. S/P Respiratory failure. Extubated. EF 60%. On Abx 2. HTN On Coreg 3.125 bid and hydralazine 10 q6 hr. 3. Acute renal failure. Denise placing stent. 4. S/P Left BKA 5. Full code DW RN Subjective Subjective In ICU Just extubated. Had Ureteral stent placement by Dr. Walker. Objective Last 24 Hour Vital Signs Date Time Temp Pulse Resp B/P (MAP) Pulse Ox O2 Delivery O2 Flow Rate FiO2 02/02/19 17:00 90 22 144/54 93 Mechanical Ventilator 45 02/02/19 16:00 Nasal Cannula 2.0 Nasal Cannula 2.0 02/02/19 16:00 98.8 88 22 148/68 93 Mechanical Ventilator 45 02/02/19 16:00 92 02/02/19 15:00 84 22 161/94 93 Mechanical Ventilator 45 02/02/19 14:55 78 18 97 Nasal Cannula 3.0 32 79 18 96 02/02/19 14:00 81 22 155/97 93 Mechanical Ventilator 45 02/02/19 13:00 78 21 143/78 94 Mechanical Ventilator 45 02/02/19 12:40 159/109 02/02/19 12:15 2.0 02/02/19 12:00 45 02/02/19 12:00 84 02/02/19 12:00 Nasal Cannula 2.0 Nasal Cannula 2.0 02/02/19 12:00 99.5 98 18 159/105 94 Mechanical Ventilator 45 02/02/19 11:15 98 Nasal Cannula 3.0 32 02/02/19 11:15 Nasal Cannula 3.0 32 02/02/19 11:00 77 18 137/98 95 Mechanical Ventilator 45 02/02/19 10:50 76 144/88 02/02/19 10:00 45 02/02/19 10:00 76 18 144/88 95 Mechanical Ventilator 45 02/02/19 09:00 81 19 144/85 95 Mechanical Ventilator 45 02/02/19 08:56 100 02/02/19 08:56 75 18 45 02/02/19 08:00 99.9 75 21 147/88 96 Mechanical Ventilator 45 02/02/19 08:00 45 02/02/19 08:00 Mechanical Ventilator 02/02/19 08:00 78 11/6/19 07:05 76 17 99 Mechanical Ventilator 40 77 17 45 40 02/02/19 07:00 66 16 133/79 96 Mechanical Ventilator 45 02/02/19 06:00 98.8 71 16 117/73 100 Mechanical Ventilator 45 02/02/19 06:00 117/73 02/02/19 05:15 74 18 45 02/02/19 05:00 71 16 108/72 100 Mechanical Ventilator 45 02/02/19 04:00 45 02/02/19 04:00 69 16 93/69 100 Mechanical Ventilator 45 02/02/19 04:00 Mechanical Ventilator 02/02/19 04:00 65 02/02/19 03:23 66 16 99 Mechanical Ventilator 45 66 16 45 02/02/19 03:00 98.5 63 16 102/72 99 Mechanical Ventilator 45 02/02/19 02:19 99.2 02/02/19 02:00 80 19 115/70 100 Mechanical Ventilator 45 02/02/19 01:20 74 18 45 02/02/19 01:00 84 16 121/75 98 Mechanical Ventilator 45 02/02/19 00:00 70 16 98/65 96 Mechanical Ventilator 45 02/02/19 00:00 Mechanical Ventilator 02/01/19 23:00 99.2 64 20 93/68 96 Mechanical Ventilator 45 02/01/19 22:36 69 16 99 Mechanical Ventilator 45 69 16 45 02/01/19 22:12 144/84 02/01/19 22:00 75 16 144/88 96 Mechanical Ventilator 45 02/01/19 21:00 77 16 45 02/01/19 21:00 71 16 136/79 100 Mechanical Ventilator 45 02/01/19 20:00 69 02/01/19 20:00 45 02/01/19 20:00 Mechanical Ventilator 02/01/19 20:00 72 14 125/74 100 Mechanical Ventilator 45 02/01/19 19:54 72 16 99 Mechanical Ventilator 45 72 16 45 02/01/19 19:00 99.5 74 16 121/77 98 Mechanical Ventilator 45 02/01/19 18:00 65 16 143/79 100 Mechanical Ventilator 45 Intake and Output 02/01/19 02/02/19 19:00 07:00 Intake Total 890 ml 902.5 ml Output Total 1125 ml 875 ml Balance -235 ml 27.5 ml IV Total 830 ml 722.5 ml Tube Feeding 60 ml 180 ml Output Urine Total 1125 ml 875 ml Laboratory Tests Test 02/02/19 04:00 02/02/19 08:56 White Blood Count 10.1 K/UL (4.8-10.8) Red Blood Count 3.09 M/UL (4.20-5.40) L Hemoglobin 10.0 G/DL (12.0-16.0) L Hematocrit 29.8 % (37.0-47.0) L Mean Corpuscular Volume 96 FL (80-99) Mean Corpuscular Hemoglobin 32.4 PG (27.0-31.0) H Mean Corpuscular Hemoglobin Concent 33.7 G/DL (32.0-36.0) Red Cell Distribution Width 12.9 % (11.6-14.8) Platelet Count 210 K/UL (150-450) Mean Platelet Volume 6.9 FL (6.5-10.1) Neutrophils (%) (Auto) 60.1 % (45.0-75.0) Lymphocytes (%) (Auto) 25.7 % (20.0-45.0) Monocytes (%) (Auto) 10.5 % (1.0-10.0) H Eosinophils (%) (Auto) 3.1 % (0.0-3.0) H Basophils (%) (Auto) 0.6 % (0.0-2.0) Sodium Level 143 MMOL/L (136-145) Potassium Level 3.9 MMOL/L (3.5-5.1) Chloride Level 106 MMOL/L (98-107) Carbon Dioxide Level 23 MMOL/L (21-32) Anion Gap 14 mmol/L (5-15) Blood Urea Nitrogen 56 mg/dL (7-18) H Creatinine 3.6 MG/DL (0.55-1.30) H Estimat Glomerular Filtration Rate 13.1 mL/min (>60) Glucose Level 125 MG/DL (74-106) H Uric Acid 8.7 MG/DL (2.6-7.2) H Calcium Level 9.6 MG/DL (8.5-10.1) Phosphorus Level 5.7 MG/DL (2.5-4.9) H Magnesium Level 1.9 MG/DL (1.8-2.4) Total Bilirubin 0.5 MG/DL (0.2-1.0) Aspartate Amino Transf (AST/SGOT) 15 U/L (15-37) Alanine Aminotransferase (ALT/SGPT) 8 U/L (12-78) L Alkaline Phosphatase 50 U/L (46-116) C-Reactive Protein, Quantitative 8.5 mg/dL (0.00-0.90) H Pro-B-Type Natriuretic Peptide 560 pg/mL (0-125) H Total Protein 7.1 G/DL (6.4-8.2) Albumin 2.7 G/DL (3.4-5.0) L Globulin 4.4 g/dL Albumin/Globulin Ratio 0.6 (1.0-2.7) L Arterial Blood pH 7.438 (7.350-7.450) Arterial Blood Partial Pressure CO2 35.9 mmHg (35.0-45.0) Arterial Blood Partial Pressure O2 77.0 mmHg (75.0-100.0) Arterial Blood HCO3 23.7 mmol/L (22.0-26.0) Arterial Blood Oxygen Saturation 94.4 % (95-100) L Arterial Blood Base Excess -0.2 (-2-2) Miguel Angel Test Positive Objective General Appearance: No acute distress HEENT: No JVD. Respiratory/Chest: lungs clear Cardiovascular: RRR Abdomen: soft, non tender Extremities: no edema, other - left Justo Sinclair MD Feb 02, 2019 17:25
--- NOTE | 2019-02-02 18:40 | Neurology Progress Note ---
Interim History Interim History Interim History Ms. Cole feels much better. She has been extubated. She is awake and responsive. Her voice is still hoarse. She is able to communicate. She feels generally stronger. She is breathing comfortably. With regards to her seizure disorder she says that she has had seizures for numerous years. When she has 1 of her seizures she passes out and can pass out for an entire week. She denies any abnormal movements, auras, or postictal neurological dysfunction. She is unable to tell me what medicines she takes for her seizures. She cannot tell me what the frequency of her seizures is. Review of Systems Neuro Review of Systems Benign. Objective Physical Exam Last Vital Signs Date Time Temp Pulse Resp B/P (MAP) Pulse Ox O2 Delivery O2 Flow Rate FiO2 02/02/19 18:19 152/90 02/02/19 18:00 92 22 93 Mechanical Ventilator 45 02/02/19 16:00 2.0 2.0 02/02/19 16:00 98.8 Laboratory Tests Test 02/02/19 04:00 02/02/19 08:56 White Blood Count 10.1 K/UL (4.8-10.8) Red Blood Count 3.09 M/UL (4.20-5.40) L Hemoglobin 10.0 G/DL (12.0-16.0) L Hematocrit 29.8 % (37.0-47.0) L Mean Corpuscular Volume 96 FL (80-99) Mean Corpuscular Hemoglobin 32.4 PG (27.0-31.0) H Mean Corpuscular Hemoglobin Concent 33.7 G/DL (32.0-36.0) Red Cell Distribution Width 12.9 % (11.6-14.8) Platelet Count 210 K/UL (150-450) Mean Platelet Volume 6.9 FL (6.5-10.1) Neutrophils (%) (Auto) 60.1 % (45.0-75.0) Lymphocytes (%) (Auto) 25.7 % (20.0-45.0) Monocytes (%) (Auto) 10.5 % (1.0-10.0) H Eosinophils (%) (Auto) 3.1 % (0.0-3.0) H Basophils (%) (Auto) 0.6 % (0.0-2.0) Sodium Level 143 MMOL/L (136-145) Potassium Level 3.9 MMOL/L (3.5-5.1) Chloride Level 106 MMOL/L (98-107) Carbon Dioxide Level 23 MMOL/L (21-32) Anion Gap 14 mmol/L (5-15) Blood Urea Nitrogen 56 mg/dL (7-18) H Creatinine 3.6 MG/DL (0.55-1.30) H Estimat Glomerular Filtration Rate 13.1 mL/min (>60) Glucose Level 125 MG/DL (74-106) H Uric Acid 8.7 MG/DL (2.6-7.2) H Calcium Level 9.6 MG/DL (8.5-10.1) Phosphorus Level 5.7 MG/DL (2.5-4.9) H Magnesium Level 1.9 MG/DL (1.8-2.4) Total Bilirubin 0.5 MG/DL (0.2-1.0) Aspartate Amino Transf (AST/SGOT) 15 U/L (15-37) Alanine Aminotransferase (ALT/SGPT) 8 U/L (12-78) L Alkaline Phosphatase 50 U/L (46-116) C-Reactive Protein, Quantitative 8.5 mg/dL (0.00-0.90) H Pro-B-Type Natriuretic Peptide 560 pg/mL (0-125) H Total Protein 7.1 G/DL (6.4-8.2) Albumin 2.7 G/DL (3.4-5.0) L Globulin 4.4 g/dL Albumin/Globulin Ratio 0.6 (1.0-2.7) L Arterial Blood pH 7.438 (7.350-7.450) Arterial Blood Partial Pressure CO2 35.9 mmHg (35.0-45.0) Arterial Blood Partial Pressure O2 77.0 mmHg (75.0-100.0) Arterial Blood HCO3 23.7 mmol/L (22.0-26.0) Arterial Blood Oxygen Saturation 94.4 % (95-100) L Arterial Blood Base Excess -0.2 (-2-2) Miguel Angel Test Positive Neurologic Exam Objective PHYSICAL EXAMINATION: GENERAL: She is a well-developed, well-nourished, obese lady, lying in the intensive care unit bed, connected to a ventilator through an orotracheal tube. HEAD: Normocephalic and atraumatic. EENT: Examination was benign. NECK: No neck rigidity was observed. NEUROLOGICAL EXAMINATION: MENTAL STATUS EXAMINATION: She was awake and alert. She was oriented to self, hospital and January only. She did not know the name of the hospital date or year. She was able to recall 3/3 words immediately but could not remember any of them in 1 minute and 3 minutes. She was unable to tell me who the president president is and who prior presidents were. Her mathematical skills were impaired. Her visual-spatial function was also impaired. SPEECH: Her voice was hoarse. LANGUAGE: She was able to comprehend and express himself relatively well. CRANIAL NERVE EXAMINATION: II: She was able to count fingers accurately. III, IV, : External ocular movements were full. The pupils were 3 mm in diameter and reactive sluggishly to light. V: She had normal facial sensations, and the temporalis masseters and pterygoids functions normally. VII: She had normal facial expressions and no facial asymmetry. VIII: She was able to hear well and had no nystagmus. IX: Her palate moved symmetrically on phonation. X: Her voice was hoarse. XI: The sternocleidomastoids and trapezii functioned well XII: The tongue was in the midline. MOTOR SYSTEM: The tone was normal in all four extremities. Examination of muscle mass revealed no focal wasting. She did have left below-knee amputation. She moved all 4 extremities on command. The strength was relatively good in her upper extremities but diminished in the lower extremities. Her effort was poor. SENSORY EXAMINATION: Light touch was symmetrical bilaterally. REFLEXES: 0 at the biceps, triceps, brachioradialis, and knees, 0 at the right ankle. The plantar response was flexor on the right side. COORDINATION, STANCE & GAIT: Could not be tested. Impression/Recommendations Diagnostic Impression 1. Ms. Bridget Cole is a 58-year-old, right-handed, lady, with a past history of a psychiatric illness, a seizure disorder, left below-knee amputation , and general debility as a result of which she lives in a fpc, who on 01/29/2019 was noted to have an altered mental state related to hypoxia associated with a pneumonia, urinary tract infection, and sepsis. Since then, she has been hospitalized and has been treated for these problems. 2. She is feels much better. She has been extubated. She is awake and responsive. Her voice is still hoarse. She is able to communicate. She feels generally stronger. She is breathing comfortably. 3. With regards to her seizure disorder she says that she has had seizures for numerous years. When she has 1 of her seizures she passes out and can pass out for an entire week. She denies any abnormal movements, auras, or postictal neurological dysfunction. She is unable to tell me what medicines she takes for her seizures. She cannot tell me what the frequency of her seizures is. 4. On neurological examination, at this time, she is awake and alert. She is oriented to self, hospital and January only. She is able to recall 3/3 words immediately but cannot remember any of them in 1 minute and 3 minutes. She is unable to tell me who the president president is and who prior presidents were. Her mathematical skills and visual-spatial function are impaired. Her voice is hoarse. She was able to comprehend and express himself relatively well. She does not demonstrate any focal findings on her cranial nerve, motor, or sensory examination. However her lower extremities are weaker than the upper extremities. Her deep tendon reflexes are absent but her plantar response is flexor on the right side. 5. Her latest laboratory data on my initial evaluation revealed that she still has a leukocytosis with WBC count of 12,000. She is anemic with a hemoglobin of 11.2 G. Her chemistry panel reveals a BUN elevated at 60, a creatinine elevated at 5.0, glucose elevated at 123. Her B12 level is normal at 443. Her folate is normal at 17.9. Her TSH is normal at 0.548. Her proBNP is elevated at 1450. Her latest blood gas performed on 01/29/2019 at 2100 hours reveals a pH of 7.42, pCO2 of 36, and a pO2 of 74. The Urinalysis revealed 3+leukocyte esterase, 15-20 red blood cells and white blood cells per high-power field. 6. CT scan of the brain performed on 01/29/2019 revealed atrophy and deep white matter changes. 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 7. 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 No interictal discharges were seen. 8. The patient's history, neurological examination, laboratory data, and imaging studies are most consistent with a significant toxic metabolic encephalopathy related to sepsis associated with a urinary tract infection, pneumonia, associated hypoxia, and sedation with Versed. Encephalopathy has improved significantly today. 9. It is still unclear as to what type of seizure disorder the patient has. The description that she gave does not fit any specific seizure entity. Recommendations 1. Continue present management. 2. Continue aggressive treatment of infectious processes. 3. Continue aggressive treatment of respiratory dysfunction. 4. A repeat EEG will be ordered to evaluate the patient for type of seizure disorder in the near future. 5. Observe closely. Errol Quesada M.D., M.S.P.H. Errol Quesada MD Feb 02, 2019 18:40
--- NOTE | 2019-02-02 19:27 | NUR ---
HAND-OFF: Report given to GUZMAN Chand.
--- NOTE | 2019-02-02 19:30 | NUR ---
NURSE NOTES: Patient in bed awake,alert oriented to name and place. Reoriented x2 and reality orientation provided with fair responds. Patient able to verbalize needs to staff, on 2L oxygen via N/C satting 100%.S/P Extubation. HOB elevated. patient watching TV with periods of talking to herself. encouraged patient too verbalize needs, fears and feelings to staff. denies any pain or discomfort.Rod draining.Right upper arm PICC line intact running D5 1/2 NS at 75cc/hr. Left BKA. Instructed patient to use call light for assistance.bed alarm on. bed locked and in low position. Contact isolation maintained and observed. will continue plan of care.
[2019-02-02] MEDS: Dyna-Hex 2% Top Sol 2oz TOPIC SCH (20:05)
--- NOTE | 2019-02-02 20:28 | General Progress Note ---
Assessment/Plan Problem List: (1) Acute renal failure ICD Codes: N17.9 - Acute kidney failure, unspecified SNOMED: 35519956 Qualifiers: Qualified Codes: N17.9 - Acute kidney failure, unspecified (2) Respiratory failure ICD Codes: J96.90 - Respiratory failure, unspecified, unspecified whether with hypoxia or hypercapnia SNOMED: 629540194 Qualifiers: Qualified Codes: J96.01 - Acute respiratory failure with hypoxia; J96.02 - Acute respiratory failure with hypercapnia (3) UTI (urinary tract infection) ICD Codes: N39.0 - Urinary tract infection, site not specified SNOMED: 00435796 Qualifiers: Qualified Codes: N39.0 - Urinary tract infection, site not specified (4) Schizophrenia ICD Codes: F20.9 - Schizophrenia, unspecified SNOMED: 91868551 (5) HTN (hypertension) ICD Codes: I10 - Essential (primary) hypertension SNOMED: 96431723 (6) Leukocytosis ICD Codes: D72.829 - Elevated white blood cell count, unspecified SNOMED: 647940322, 754513363 Status: progressing Assessment/Plan: extubated clinically improving uti improving abx per id afebrile psychosis Subjective ROS Limited/Unobtainable: Yes Allergies: Coded Allergies: Grits (Unverified Allergy, Unknown, 07/06/17) [place] (Unverified Allergy, Unknown, 07/06/17) Objective Last 24 Hour Vital Signs Date Time Temp Pulse Resp B/P (MAP) Pulse Ox O2 Delivery O2 Flow Rate FiO2 02/02/19 20:17 92 162/93 02/02/19 19:52 88 21 97 Nasal Cannula 3.0 32 02/02/19 19:42 96 Nasal Cannula 3.0 32 02/02/19 19:42 100 18 96 Nasal Cannula 3.0 32 02/02/19 18:19 152/90 02/02/19 18:00 92 22 152/90 93 Mechanical Ventilator 45 02/02/19 17:00 90 22 144/54 93 Mechanical Ventilator 45 02/02/19 16:00 Nasal Cannula 2.0 Nasal Cannula 2.0 02/02/19 16:00 98.8 88 22 148/68 93 Mechanical Ventilator 45 02/02/19 16:00 92 02/02/19 15:00 84 22 161/94 93 Mechanical Ventilator 45 02/02/19 14:55 78 18 97 Nasal Cannula 3.0 32 79 18 96 02/02/19 14:00 81 22 155/97 93 Mechanical Ventilator 45 02/02/19 13:00 78 21 143/78 94 Mechanical Ventilator 45 02/02/19 12:40 159/109 02/02/19 12:15 2.0 02/02/19 12:00 45 02/02/19 12:00 84 02/02/19 12:00 Nasal Cannula 2.0 Nasal Cannula 2.0 02/02/19 12:00 99.5 98 18 159/105 94 Mechanical Ventilator 45 02/02/19 11:15 98 Nasal Cannula 3.0 32 02/02/19 11:15 Nasal Cannula 3.0 32 02/02/19 11:00 77 18 137/98 95 Mechanical Ventilator 45 02/02/19 10:50 76 144/88 02/02/19 10:00 45 02/02/19 10:00 76 18 144/88 95 Mechanical Ventilator 45 02/02/19 09:00 81 19 144/85 95 Mechanical Ventilator 45 02/02/19 08:56 100 02/02/19 08:56 75 18 45 02/02/19 08:00 99.9 75 21 147/88 96 Mechanical Ventilator 45 02/02/19 08:00 45 02/02/19 08:00 Mechanical Ventilator 02/02/19 08:00 78 02/02/19 07:05 76 17 99 Mechanical Ventilator 40 77 17 45 40 02/02/19 07:00 66 16 133/79 96 Mechanical Ventilator 45 02/02/19 06:00 98.8 71 16 117/73 100 Mechanical Ventilator 45 02/02/19 06:00 117/73 02/02/19 05:15 74 18 45 02/02/19 05:00 71 16 108/72 100 Mechanical Ventilator 45 02/02/19 04:00 45 02/02/19 04:00 69 16 93/69 100 Mechanical Ventilator 45 02/02/19 04:00 Mechanical Ventilator 02/02/19 04:00 65 02/02/19 03:23 66 16 99 Mechanical Ventilator 45 66 16 45 02/02/19 03:00 98.5 63 16 102/72 99 Mechanical Ventilator 45 02/02/19 02:19 99.2 02/02/19 02:00 80 19 115/70 100 Mechanical Ventilator 45 02/02/19 01:20 74 18 45 02/02/19 01:00 84 16 121/75 98 Mechanical Ventilator 45 02/02/19 00:00 70 16 98/65 96 Mechanical Ventilator 45 02/02/19 00:00 Mechanical Ventilator 02/01/19 23:00 99.2 64 20 93/68 96 Mechanical Ventilator 45 02/01/19 22:36 69 16 99 Mechanical Ventilator 45 69 16 45 02/01/19 22:12 144/84 02/01/19 22:00 75 16 144/88 96 Mechanical Ventilator 45 02/01/19 21:00 77 16 45 02/01/19 21:00 71 16 136/79 100 Mechanical Ventilator 45 Intake and Output 02/01/19 02/02/19 19:00 07:00 Intake Total 890 ml 902.5 ml Output Total 1125 ml 875 ml Balance -235 ml 27.5 ml IV Total 830 ml 722.5 ml Tube Feeding 60 ml 180 ml Output Urine Total 1125 ml 875 ml Laboratory Tests 02/02/19 04:00: White Blood Count 10.1, Red Blood Count 3.09L, Hemoglobin 10.0L, Hematocrit 29.8L, Mean Corpuscular Volume 96, Mean Corpuscular Hemoglobin 32.4H, Mean Corpuscular Hemoglobin Concent 33.7, Red Cell Distribution Width 12.9, Platelet Count 210, Mean Platelet Volume 6.9, Neutrophils (%) (Auto) 60.1, Lymphocytes (% ) (Auto) 25.7, Monocytes (%) (Auto) 10.5H, Eosinophils (%) (Auto) 3.1H, Basophils (%) (Auto) 0.6, Sodium Level 143, Potassium Level 3.9, Chloride Level 106, Carbon Dioxide Level 23, Anion Gap 14, Blood Urea Nitrogen 56H, Creatinine 3.6H, Estimat Glomerular Filtration Rate 13.1, Glucose Level 125H, Uric Acid 8.7H, Calcium Level 9.6, Phosphorus Level 5.7H, Magnesium Level 1.9, Total Bilirubin 0.5, Aspartate Amino Transf (AST/SGOT) 15, Alanine Aminotransferase ( ALT/SGPT) 8L, Alkaline Phosphatase 50, C-Reactive Protein, Quantitative 8.5H, Pro-B-Type Natriuretic Peptide 560H, Total Protein 7.1, Albumin 2.7L, Globulin 4.4, Albumin/Globulin Ratio 0.6L 02/02/19 08:56: Arterial Blood pH 7.438, Arterial Blood Partial Pressure CO2 35.9, Arterial Blood Partial Pressure O2 77.0, Arterial Blood HCO3 23.7, Arterial Blood Oxygen Saturation 94.4L, Arterial Blood Base Excess -0.2, Miguel Angel Test Positive Height (Feet): 5 Height (Inches): 4.00 Weight (Pounds): 212 General Appearance: confused Cardiovascular: normal rate Respiratory/Chest: lungs clear Isela Rubio MD Feb 02, 2019 20:28
--- NOTE | 2019-02-02 20:47 | NUR ---
NURSE NOTES: Patient with Temp of 100.6 axillary cooling measure provided not effective. Tylenol given by mouth pt able to swallow medication with apple sauce without coughing and difficulty. Tylenol effective Temp 99.0 axillary. frequent visual checks continued.
--- NOTE | 2019-02-02 21:45 | Pulmonolgy Critical Care Note ---
Critical Care - Asmt/Plan Assessment/Plan: Pulmonary Critical Care Progress Noted HPI The patient is a 58 year old woman admitted with worsening shortness of breath, respiratory failure requiring intubation, pneumonia. Altered mental status prior to intubation in the ED. Noted to have evidence of UTI in addition to pneumonia LLL Per chart review h/o Seizure disorder, Left Kidney Mass, Hydronephrosis, Hypertension, HHD, Nausea and Vomiting Past Medical History: ESBL UTI from prison Leukocytosis likely related to infection Left kidney mass Left hydronephrosis Anxiety Dehydration Seizure disorder on Clonazepam and Gabapentin Weakness Schizophrenia Hypertension Obesity PSH: Left BKA Allergies: Grits (Unverified Allergy, Unknown, 07/06/17) [place] (Unverified Allergy, Unknown, 07/06/17) stable overnight awaiting Urological Procedure Physical Exam Vital Signs Noted General Appearance: Awake Head: normocephalic, atraumatic, ENT: dry mucus membranes, ETT Neck: No LN Respiratory: CTAB Cardiovascular: regular rate, rhythm, HS1, HS2, no edema Gastrointestinal: decreased bowel sounds, overweight, abrasions abdominal wall Musculoskeletal: moving all limbs, BKA L Neurologic: Awake, interactive, no focal signs Skin: warm/dry, Impression: Ventilator Dependent Respiratory failure Left lower lobe pulmonary infiltrate Urinary tract infection ESBL UTI from prison Acute on Chronic Renal Failure Left kidney mass Left hydronephrosis Anxiety Dehydration Seizure disorder on Clonazepam and Gabapentin Weakness Schizophrenia Hypertension Obesity Plan Wean as tolerated - extubate Antibiotics per ID Aspiration/Seizure precautions 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 EKG: Rate: normal Rhythm: NSR ST Segments: no acute changes Chest X-Ray: no effusion, no pneumothorax, other - ET well positioned, possible L sided infiltrate Critical Care - Objective Last 24 Hour Vital Signs Date Time Temp Pulse Resp B/P (MAP) Pulse Ox O2 Delivery O2 Flow Rate FiO2 02/02/19 21:00 100 23 143/95 93 Nasal Cannula 2.0 02/02/19 20:17 92 162/93 02/02/19 20:00 90 02/02/19 20:00 100.5 98 21 162/93 93 Nasal Cannula 2.0 02/02/19 20:00 2.0 02/02/19 20:00 Nasal Cannula 2.0 Nasal Cannula 2.0 02/02/19 19:52 88 21 97 Nasal Cannula 3.0 32 02/02/19 19:42 96 Nasal Cannula 3.0 32 02/02/19 19:42 100 18 96 Nasal Cannula 3.0 32 02/02/19 19:00 96 25 146/84 91 Nasal Cannula 2.0 02/02/19 18:19 152/90 02/02/19 18:00 92 22 152/90 93 Mechanical Ventilator 45 02/02/19 17:00 90 22 144/54 93 Mechanical Ventilator 45 02/02/19 16:00 Nasal Cannula 2.0 Nasal Cannula 2.0 02/02/19 16:00 98.8 88 22 148/68 93 Mechanical Ventilator 45 02/02/19 16:00 92 02/02/19 15:00 84 22 161/94 93 Mechanical Ventilator 45 02/02/19 14:55 78 18 97 Nasal Cannula 3.0 32 79 18 96 02/02/19 14:00 81 22 155/97 93 Mechanical Ventilator 45 02/02/19 13:00 78 21 143/78 94 Mechanical Ventilator 45 02/02/19 12:40 159/109 02/02/19 12:15 2.0 02/02/19 12:00 45 02/02/19 12:00 84 02/02/19 12:00 Nasal Cannula 2.0 Nasal Cannula 2.0 02/02/19 12:00 99.5 98 18 159/105 94 Mechanical Ventilator 45 02/02/19 11:15 98 Nasal Cannula 3.0 32 02/02/19 11:15 Nasal Cannula 3.0 32 02/02/19 11:00 77 18 137/98 95 Mechanical Ventilator 45 02/02/19 10:50 76 144/88 02/02/19 10:00 45 02/02/19 10:00 76 18 144/88 95 Mechanical Ventilator 45 02/02/19 09:00 81 19 144/85 95 Mechanical Ventilator 45 02/02/19 08:56 100 02/02/19 08:56 75 18 45 02/02/19 08:00 99.9 75 21 147/88 96 Mechanical Ventilator 45 02/02/19 08:00 45 02/02/19 08:00 Mechanical Ventilator 02/02/19 08:00 78 02/02/19 07:05 76 17 99 Mechanical Ventilator 40 77 17 45 40 02/02/19 07:00 66 16 133/79 96 Mechanical Ventilator 45 02/02/19 06:00 98.8 71 16 117/73 100 Mechanical Ventilator 45 02/02/19 06:00 117/73 02/02/19 05:15 74 18 45 02/02/19 05:00 71 16 108/72 100 Mechanical Ventilator 45 02/02/19 04:00 45 02/02/19 04:00 69 16 93/69 100 Mechanical Ventilator 45 02/02/19 04:00 Mechanical Ventilator 02/02/19 04:00 65 02/02/19 03:23 66 16 99 Mechanical Ventilator 45 66 16 45 02/02/19 03:00 98.5 63 16 102/72 99 Mechanical Ventilator 45 02/02/19 02:19 99.2 02/02/19 02:00 80 19 115/70 100 Mechanical Ventilator 45 02/02/19 01:20 74 18 45 02/02/19 01:00 84 16 121/75 98 Mechanical Ventilator 45 02/02/19 00:00 70 16 98/65 96 Mechanical Ventilator 45 02/02/19 00:00 Mechanical Ventilator 02/01/19 23:00 99.2 64 20 93/68 96 Mechanical Ventilator 45 02/01/19 22:36 69 16 99 Mechanical Ventilator 45 69 16 45 02/01/19 22:12 144/84 02/01/19 22:00 75 16 144/88 96 Mechanical Ventilator 45 Accucheck: 83 Critical Care - Subjective ROS Limited/Unobtainable: No FI02: 32 Vent Support Breath Rate: 16 Vent Support Mode: AC Vent Tidal Volume: 550 Sputum Amount: None PEEP: 5.0 PIP: 25 Tube Feeding Amount: 30 I&O: Intake and Output 02/01/19 02/02/19 19:00 07:00 Intake Total 890 ml 902.5 ml Output Total 1125 ml 875 ml Balance -235 ml 27.5 ml IV Total 830 ml 722.5 ml Tube Feeding 60 ml 180 ml Output Urine Total 1125 ml 875 ml ET-Tube: 7.5 ET Position: 23 Gabino Smith MD Feb 02, 2019 21:45
--- NOTE | 2019-02-02 22:45 | NUR ---
NURSE NOTES: patient in bed awake,alert watching TV. No S/s of cardiac and acute distress noted. On 2 L oxygen via N/C satting 100%,etC02 33. Denies any pain or discomfort. Call light within easy reach.
[2019-02-03] VITALS (27 sets, daily range): BP systolic 126–184; BP diastolic 79–123
--- NOTE | 2019-02-03 00:45 | NUR ---
NURSE NOTES: Bed bath given tolerated well. Oral care provided. Turned and repositioned. no s/s of acute distress noted. call light within easy reach. will continue plan of care.
[2019-02-03] MEDS: HydrALAZINE 10mg Tab NG SCH ×2 (01:21→06:05)
[2019-02-03] MEDS: D5 1/2NS 1,000 ML IV SCH ×2 (01:22→16:01)
--- NOTE | 2019-02-03 02:45 | NUR ---
NURSE NOTES: Patient sleeping comfortably in bed. Turned and repositioned. no s/s of acute distress noted. call light within easy reach. will continue plan of care.
[2019-02-03] MEDS: Albuterol/Ipratropium 3ml neb HHN SCH ×5 (02:59→19:13)
--- NOTE | 2019-02-03 04:45 | NUR ---
NURSE NOTES: .Turned and repositioned. no s/s of acute distress noted. call light within easy reach. will continue plan of care.
[2019-02-03 05:24] LABS: BASOPHILS % (AUTO) 0.9 % (0.0-2.0); EOSINOPHILS % (AUTO) 3.9 % (0.0-3.0); HEMATOCRIT 33.7 % (37.0-47.0); HEMOGLOBIN 11.3 G/DL (12.0-16.0); LYMPHOCYTES % (AUTO) 17.5 % (20.0-45.0); MEAN CORPUSCULAR VOLUME 96 FL (80-99); NEUTROPHILS % (AUTO) 66.7 % (45.0-75.0); PLATELET COUNT 229 K/UL (150-450); RED BLOOD COUNT 3.51 M/UL (4.20-5.40); RED CELL DISTRIBUTION WIDTH 12.3 % (11.6-14.8); WHITE BLOOD COUNT 13.6 K/UL (4.8-10.8)
[2019-02-03 06:02] LABS: ALANINE AMINOTRANSFERASE 10 U/L (12-78); ALBUMIN 3.1 G/DL (3.4-5.0); ALBUMIN/GLOBULIN RATIO 0.6 (1.0-2.7); ALKALINE PHOSPHATASE 60 U/L (46-116); ANION GAP 11 mmol/L (5-15); ASPARTATE AMINO TRANSFERASE 17 U/L (15-37); BILIRUBIN,TOTAL 0.5 MG/DL (0.2-1.0); BLOOD UREA NITROGEN 47 mg/dL (7-18); CALCIUM 10.2 MG/DL (8.5-10.1); CARBON DIOXIDE 27 MMOL/L (21-32); CHLORIDE 105 MMOL/L (98-107); CREATININE 2.8 MG/DL (0.55-1.30); POTASSIUM 3.1 MMOL/L (3.5-5.1); SODIUM 143 MMOL/L (136-145)
[2019-02-03 06:22] LABS: PHOSPHORUS 3.9 MG/DL (2.5-4.9)
--- NOTE | 2019-02-03 07:15 | NUR ---
HAND-OFF: Report given to Marjan Valladares RN.
--- NOTE | 2019-02-03 07:15 | NUR ---
NURSE NOTES: Received pt from GUZMAN Chand. Pt is awake, able to converse, A/Ox2-3, episodes of psychosis and confusion. No signs of distress. S/P extubation yesterday per Dr. Smith. Tolerating 2LNC well, Spo2 92%. Pt is COPD. Bilateral b/s clear and diminished. Unlabored and even breathing. NPO maintained; video swallow scheduled today. Siderails padded for seizure precautions; oxygen and sxn at bedside. [place] PICC running D51/2NS@75ml/hr. FC draining pinkish urine to gravity. 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 Bed locked, alarmed and in lowest position.
[2019-02-03] MEDS: Pantoprazole Inj IVP SCH (08:32)
[2019-02-03] MEDS: Heparin 5000 units/ml inj SUBQ SCH ×2 (08:32→20:54)
[2019-02-03] MEDS: Docusate 250mg cap ORAL SCH (08:32)
[2019-02-03] MEDS: Meropenem 500mg/NS 55ml IVPB SCH ×4 (08:36→20:10)
--- NOTE | 2019-02-03 09:45 | Nephrology Progress Note ---
Assessment/Plan Problem List: (1) Acute renal failure Assessment: Cr lowering (2) Respiratory failure (3) HTN (hypertension) (4) Schizophrenia (5) Hydronephrosis Assessment Acute on Chronic Renal Failure- Cr lowering ? kidney mass Right hydronephrosis Ventilator Dependent Respiratory failure Left lower lobe pulmonary infiltrate Urinary tract infection ESBL UTI from long-term Dehydration Seizure disorder on Clonazepam and Gabapentin Schizophrenia Hypertension Obesity Plan Adjust BP meds adjust electrolytes patient had right kidney stent Off Lasix adjust all mind altering meds avoid nephrotoxics monitor renal parametes per orders Subjective ROS Limited/Unobtainable: No Constitutional: Reports: malaise, other - now extubated Objective Objective Last 24 Hour Vital Signs Date Time Temp Pulse Resp B/P (MAP) Pulse Ox O2 Delivery O2 Flow Rate FiO2 02/03/19 09:00 98 24 127/83 95 Nasal Cannula 2.0 02/03/19 08:32 80 160/95 02/03/19 08:27 95 19 145/79 93 Nasal Cannula 2.0 02/03/19 08:00 86 02/03/19 08:00 83 18 184/95 93 Nasal Cannula 2.0 02/03/19 08:00 Nasal Cannula 2.0 Nasal Cannula 2.0 02/03/19 07:11 80 23 97 Nasal Cannula 3.0 32 83 22 95 02/03/19 07:00 98.6 82 19 164/92 94 Nasal Cannula 2.0 02/03/19 07:00 95 Nasal Cannula 3.0 32 02/03/19 06:05 160/95 02/03/19 06:00 81 21 160/95 95 Nasal Cannula 2.0 02/03/19 05:00 82 26 162/96 95 Nasal Cannula 2.0 02/03/19 04:40 77 20 163/93 94 Nasal Cannula 2.0 02/03/19 04:00 88 02/03/19 04:00 Nasal Cannula 2.0 Nasal Cannula 2.0 02/03/19 04:00 99.4 79 18 171/91 94 Nasal Cannula 2.0 02/03/19 03:09 75 22 99 Nasal Cannula 3.0 32 02/03/19 03:00 77 21 161/85 95 Nasal Cannula 2.0 02/03/19 02:59 73 23 95 Nasal Cannula 3.0 32 02/03/19 02:00 73 18 159/103 95 Nasal Cannula 2.0 02/03/19 01:21 155/95 02/03/19 01:00 75 22 155/93 96 Nasal Cannula 2.0 02/03/19 00:00 Nasal Cannula 2.0 Nasal Cannula 2.0 02/03/19 00:00 98.6 82 18 126/96 95 Nasal Cannula 2.0 02/03/19 00:00 88 02/02/19 23:15 78 24 99 Nasal Cannula 3.0 32 02/02/19 23:05 77 23 95 Nasal Cannula 3.0 32 02/02/19 23:00 86 20 146/91 95 Nasal Cannula 2.0 02/02/19 22:00 85 21 152/88 96 Nasal Cannula 2.0 02/02/19 21:00 100 23 143/95 93 Nasal Cannula 2.0 02/02/19 20:47 99.0 02/02/19 20:17 92 162/93 02/02/19 20:00 90 02/02/19 20:00 100.5 98 21 162/93 93 Nasal Cannula 2.0 02/02/19 20:00 2.0 02/02/19 20:00 Nasal Cannula 2.0 Nasal Cannula 2.0 02/02/19 19:52 88 21 97 Nasal Cannula 3.0 32 02/02/19 19:42 96 Nasal Cannula 3.0 32 02/02/19 19:42 100 18 96 Nasal Cannula 3.0 32 02/02/19 19:00 96 25 146/84 91 Nasal Cannula 2.0 02/02/19 18:19 152/90 02/02/19 18:00 92 22 152/90 93 Mechanical Ventilator 45 02/02/19 17:00 90 22 144/54 93 Mechanical Ventilator 45 02/02/19 16:00 Nasal Cannula 2.0 Nasal Cannula 2.0 02/02/19 16:00 98.8 88 22 148/68 93 Mechanical Ventilator 45 02/02/19 16:00 92 02/02/19 15:00 84 22 161/94 93 Mechanical Ventilator 45 02/02/19 14:55 78 18 97 Nasal Cannula 3.0 32 79 18 96 02/02/19 14:00 81 22 155/97 93 Mechanical Ventilator 45 02/02/19 13:00 78 21 143/78 94 Mechanical Ventilator 45 02/02/19 12:40 159/109 02/02/19 12:15 2.0 02/02/19 12:00 45 02/02/19 12:00 84 02/02/19 12:00 Nasal Cannula 2.0 Nasal Cannula 2.0 02/02/19 12:00 99.5 98 18 159/105 94 Mechanical Ventilator 45 02/02/19 11:15 98 Nasal Cannula 3.0 32 02/02/19 11:15 Nasal Cannula 3.0 32 02/02/19 11:00 77 18 137/98 95 Mechanical Ventilator 45 02/02/19 10:50 76 144/88 02/02/19 10:00 45 02/02/19 10:00 76 18 144/88 95 Mechanical Ventilator 45 Intake and Output 02/02/19 02/03/19 18:59 06:59 Intake Total 930 ml 952.5 ml Output Total 1400 ml 1480 ml Balance -470 ml -527.5 ml Free Water 30 ml IV Total 900 ml 952.5 ml Output Urine Total 1400 ml 1480 ml Laboratory Tests 02/03/19 03:50: White Blood Count 13.6H, Red Blood Count 3.51L, Hemoglobin 11.3L, Hematocrit 33.7L, Mean Corpuscular Volume 96, Mean Corpuscular Hemoglobin 32.1H, Mean Corpuscular Hemoglobin Concent 33.4, Red Cell Distribution Width 12.3, Platelet Count 229, Mean Platelet Volume 6.4L, Neutrophils (%) (Auto) 66.7, Lymphocytes ( %) (Auto) 17.5L, Monocytes (%) (Auto) 11.0H, Eosinophils (%) (Auto) 3.9H, Basophils (%) (Auto) 0.9, Sodium Level 143, Potassium Level 3.1L, Chloride Level 105, Carbon Dioxide Level 27, Anion Gap 11, Blood Urea Nitrogen 47H, Creatinine 2.8H, Estimat Glomerular Filtration Rate 17.4, Glucose Level 98, Uric Acid 6.8, Calcium Level 10.2H, Phosphorus Level 3.9, Magnesium Level 1.7L, Total Bilirubin 0.5, Aspartate Amino Transf (AST/SGOT) 17, Alanine Aminotransferase (ALT/SGPT) 10L, Alkaline Phosphatase 60, C-Reactive Protein, Quantitative 9.4H, Pro-B-Type Natriuretic Peptide 598H, Total Protein 8.0, Albumin 3.1L, Globulin 4.9, Albumin/Globulin Ratio 0.6L Height (Feet): 5 Height (Inches): 4.00 Weight (Pounds): 209 General Appearance: no apparent distress, lethargic Cardiovascular: tachycardia Respiratory/Chest: decreased breath sounds Derrell Hatch MD Feb 03, 2019 09:45
--- NOTE | 2019-02-03 10:06 | Infectious Diseases Prog Note ---
Assessment/Plan Assessment/Plan A; Sepsis Positive blood culture, contamination Acute renal failure Acute respiratory failure, hypoxemic Hydronephrosis Obstructive uropathy Schizophrenia P; Continue Meropenem until tonight Will f/u CBC Subjective ROS Limited/Unobtainable: Yes Constitutional: Reports: fever, other - low grade fever last night Respiratory: Reports: other - extubated Gastrointestinal/Abdominal: Reports: no symptoms Genitourinary: Reports: no symptoms Allergies: Coded Allergies: Grits (Unverified Allergy, Unknown, 07/06/17) [place] (Unverified Allergy, Unknown, 07/06/17) Objective Vital Signs Last 24 Hour Vital Signs Date Time Temp Pulse Resp B/P (MAP) Pulse Ox O2 Delivery O2 Flow Rate FiO2 02/03/19 09:00 98 24 127/83 95 Nasal Cannula 2.0 02/03/19 08:32 80 160/95 02/03/19 08:27 95 19 145/79 93 Nasal Cannula 2.0 02/03/19 08:00 86 02/03/19 08:00 83 18 184/95 93 Nasal Cannula 2.0 02/03/19 08:00 Nasal Cannula 2.0 Nasal Cannula 2.0 02/03/19 07:11 80 23 97 Nasal Cannula 3.0 32 83 22 95 02/03/19 07:00 98.6 82 19 164/92 94 Nasal Cannula 2.0 02/03/19 07:00 95 Nasal Cannula 3.0 32 02/03/19 06:05 160/95 02/03/19 06:00 81 21 160/95 95 Nasal Cannula 2.0 02/03/19 05:00 82 26 162/96 95 Nasal Cannula 2.0 02/03/19 04:40 77 20 163/93 94 Nasal Cannula 2.0 02/03/19 04:00 88 02/03/19 04:00 Nasal Cannula 2.0 Nasal Cannula 2.0 02/03/19 04:00 99.4 79 18 171/91 94 Nasal Cannula 2.0 02/03/19 03:09 75 22 99 Nasal Cannula 3.0 32 02/03/19 03:00 77 21 161/85 95 Nasal Cannula 2.0 02/03/19 02:59 73 23 95 Nasal Cannula 3.0 32 02/03/19 02:00 73 18 159/103 95 Nasal Cannula 2.0 02/03/19 01:21 155/95 02/03/19 01:00 75 22 155/93 96 Nasal Cannula 2.0 02/03/19 00:00 Nasal Cannula 2.0 Nasal Cannula 2.0 02/03/19 00:00 98.6 82 18 126/96 95 Nasal Cannula 2.0 02/03/19 00:00 88 02/02/19 23:15 78 24 99 Nasal Cannula 3.0 32 02/02/19 23:05 77 23 95 Nasal Cannula 3.0 32 02/02/19 23:00 86 20 146/91 95 Nasal Cannula 2.0 02/02/19 22:00 85 21 152/88 96 Nasal Cannula 2.0 02/02/19 21:00 100 23 143/95 93 Nasal Cannula 2.0 02/02/19 20:47 99.0 02/02/19 20:17 92 162/93 02/02/19 20:00 90 02/02/19 20:00 100.5 98 21 162/93 93 Nasal Cannula 2.0 02/02/19 20:00 2.0 02/02/19 20:00 Nasal Cannula 2.0 Nasal Cannula 2.0 02/02/19 19:52 88 21 97 Nasal Cannula 3.0 32 02/02/19 19:42 96 Nasal Cannula 3.0 32 02/02/19 19:42 100 18 96 Nasal Cannula 3.0 32 02/02/19 19:00 96 25 146/84 91 Nasal Cannula 2.0 02/02/19 18:19 152/90 02/02/19 18:00 92 22 152/90 93 Mechanical Ventilator 45 02/02/19 17:00 90 22 144/54 93 Mechanical Ventilator 45 02/02/19 16:00 Nasal Cannula 2.0 Nasal Cannula 2.0 02/02/19 16:00 98.8 88 22 148/68 93 Mechanical Ventilator 45 02/02/19 16:00 92 02/02/19 15:00 84 22 161/94 93 Mechanical Ventilator 45 02/02/19 14:55 78 18 97 Nasal Cannula 3.0 32 79 18 96 02/02/19 14:00 81 22 155/97 93 Mechanical Ventilator 45 02/02/19 13:00 78 21 143/78 94 Mechanical Ventilator 45 02/02/19 12:40 159/109 02/02/19 12:15 2.0 11/6/19 12:00 45 02/02/19 12:00 84 02/02/19 12:00 Nasal Cannula 2.0 Nasal Cannula 2.0 02/02/19 12:00 99.5 98 18 159/105 94 Mechanical Ventilator 45 02/02/19 11:15 98 Nasal Cannula 3.0 32 02/02/19 11:15 Nasal Cannula 3.0 32 02/02/19 11:00 77 18 137/98 95 Mechanical Ventilator 45 02/02/19 10:50 76 144/88 Height (Feet): 5 Height (Inches): 4.00 Weight (Pounds): 209 HEENT: other - poor dentition Respiratory/Chest: lungs clear Cardiovascular: normal rate Abdomen: soft, non tender Extremities: no edema, other - left BKA Skin: no ulcers Neurologic/Psychiatric: alert, responsive Laboratory Tests Test 02/03/19 03:50 White Blood Count 13.6 K/UL (4.8-10.8) H Red Blood Count 3.51 M/UL (4.20-5.40) L Hemoglobin 11.3 G/DL (12.0-16.0) L Hematocrit 33.7 % (37.0-47.0) L Mean Corpuscular Volume 96 FL (80-99) Mean Corpuscular Hemoglobin 32.1 PG (27.0-31.0) H Mean Corpuscular Hemoglobin Concent 33.4 G/DL (32.0-36.0) Red Cell Distribution Width 12.3 % (11.6-14.8) Platelet Count 229 K/UL (150-450) Mean Platelet Volume 6.4 FL (6.5-10.1) L Neutrophils (%) (Auto) 66.7 % (45.0-75.0) Lymphocytes (%) (Auto) 17.5 % (20.0-45.0) L Monocytes (%) (Auto) 11.0 % (1.0-10.0) H Eosinophils (%) (Auto) 3.9 % (0.0-3.0) H Basophils (%) (Auto) 0.9 % (0.0-2.0) Sodium Level 143 MMOL/L (136-145) Potassium Level 3.1 MMOL/L (3.5-5.1) L Chloride Level 105 MMOL/L (98-107) Carbon Dioxide Level 27 MMOL/L (21-32) Anion Gap 11 mmol/L (5-15) Blood Urea Nitrogen 47 mg/dL (7-18) H Creatinine 2.8 MG/DL (0.55-1.30) H Estimat Glomerular Filtration Rate 17.4 mL/min (>60) Glucose Level 98 MG/DL (74-106) Uric Acid 6.8 MG/DL (2.6-7.2) Calcium Level 10.2 MG/DL (8.5-10.1) H Phosphorus Level 3.9 MG/DL (2.5-4.9) Magnesium Level 1.7 MG/DL (1.8-2.4) L Total Bilirubin 0.5 MG/DL (0.2-1.0) Aspartate Amino Transf (AST/SGOT) 17 U/L (15-37) Alanine Aminotransferase (ALT/SGPT) 10 U/L (12-78) L Alkaline Phosphatase 60 U/L (46-116) C-Reactive Protein, Quantitative 9.4 mg/dL (0.00-0.90) H Pro-B-Type Natriuretic Peptide 598 pg/mL (0-125) H Total Protein 8.0 G/DL (6.4-8.2) Albumin 3.1 G/DL (3.4-5.0) L Globulin 4.9 g/dL Albumin/Globulin Ratio 0.6 (1.0-2.7) L Current Medications Medications (Trade) Dose Ordered Sig/William Route PRN Reason Start Time Stop Time Status Last Admin Dose Admin Acetaminophen (Tylenol) 650 mg Q6H PRN ORAL Fever (temp>100.5F) 01/29/19 18:30 02/28/19 18:29 02/02/19 20:17 Albuterol/ Ipratropium (Albuterol/ Ipratropium) 3 ml Q4HRT HHN 01/29/19 23:00 02/03/19 22:59 02/03/19 07:01 Bisacodyl (Dulcolax) 10 mg DAILYPRN PRN RECTAL Constipation 01/29/19 20:00 02/28/19 19:59 02/03/19 04:34 Carvedilol (Coreg) 6.25 mg EVERY 12 HOURS ORAL 02/03/19 21:00 03/04/19 10:29 Chlorhexidine Gluconate (Genevieve-Hex 2%) 1 applic DAILY@1999 TOPIC 02/01/19 20:00 02/28/19 19:59 02/02/19 20:05 Dextrose (Dextrose 50%) 25 ml Q30M PRN IV Hypoglycemia 01/29/19 18:30 02/28/19 18:29 Dextrose (Dextrose 50%) 50 ml Q30M PRN IV Hypoglycemia 01/29/19 18:30 02/28/19 18:29 Dextrose/Sodium Chloride 1,000 ml @ 75 mls/hr [id number] IV 01/31/19 07:52 03/02/19 07:51 02/03/19 01:22 Docusate Sodium (Colace) 250 mg DAILY ORAL 01/30/19 09:00 03/01/19 08:59 02/03/19 08:32 Heparin Sodium (Porcine) (Heparin 5000 units/ml) 5,000 units EVERY 12 HOURS SUBQ 01/30/19 09:00 03/01/19 08:59 02/02/19 20:19 Hydralazine HCl (Apresoline) 10 mg Q2H PRN IV For High Blood Pressure 01/31/19 15:45 03/02/19 15:44 Hydralazine HCl (Apresoline) 25 mg Q8HR ORAL 02/03/19 14:00 03/04/19 11:59 Hydromorphone HCl (Dilaudid) 0.5 mg Q2H PRN IVP For Pain 01/29/19 18:30 02/05/19 18:29 02/02/19 01:49 Meropenem 500 mg/ Sodium Chloride 55 ml @ 110 mls/hr Q12HR@08,1999 IVPB 01/29/19 20:00 02/03/19 19:59 02/03/19 08:36 Midazolam HCl 100 ml @ 0 mls/hr Q24H PRN IV Restlessness 01/29/19 19:00 02/05/19 18:59 01/30/19 08:02 Pantoprazole (Protonix) 40 mg EVERY 12 HOURS ORAL 02/03/19 21:00 03/05/19 20:59 Potassium Chloride 100 ml @ 50 mls/hr Q2H IVPB 02/03/19 07:00 02/03/19 12:59 02/03/19 07:00 Jose Solis MD Feb 03, 2019 10:06
--- NOTE | 2019-02-03 10:22 | Cardiac Electrophysiology PN ---
Assessment/Plan Assessment/Plan 1. S/P Respiratory failure. Extubated. EF 60%. On meropenem 2. HTN On Coreg 3.125 bid and hydralazine 10 q6 hr. 3. Acute renal failure. S/P stent by Dr Walker 4. S/P Left BKA 5. Full code DW RN Subjective Subjective In ICU extubated yesterday. Had Ureteral stent placement by Dr. Walker. No CP or SOB Objective Last 24 Hour Vital Signs Date Time Temp Pulse Resp B/P (MAP) Pulse Ox O2 Delivery O2 Flow Rate FiO2 02/03/19 09:00 98 24 127/83 95 Nasal Cannula 2.0 02/03/19 08:32 80 160/95 02/03/19 08:27 95 19 145/79 93 Nasal Cannula 2.0 02/03/19 08:00 86 02/03/19 08:00 83 18 184/95 93 Nasal Cannula 2.0 02/03/19 08:00 Nasal Cannula 2.0 Nasal Cannula 2.0 02/03/19 07:11 80 23 97 Nasal Cannula 3.0 32 83 22 95 02/03/19 07:00 98.6 82 19 164/92 94 Nasal Cannula 2.0 02/03/19 07:00 95 Nasal Cannula 3.0 32 02/03/19 06:05 160/95 02/03/19 06:00 81 21 160/95 95 Nasal Cannula 2.0 02/03/19 05:00 82 26 162/96 95 Nasal Cannula 2.0 02/03/19 04:40 77 20 163/93 94 Nasal Cannula 2.0 02/03/19 04:00 88 02/03/19 04:00 Nasal Cannula 2.0 Nasal Cannula 2.0 02/03/19 04:00 99.4 79 18 171/91 94 Nasal Cannula 2.0 02/03/19 03:09 75 22 99 Nasal Cannula 3.0 32 02/03/19 03:00 77 21 161/85 95 Nasal Cannula 2.0 02/03/19 02:59 73 23 95 Nasal Cannula 3.0 32 02/03/19 02:00 73 18 159/103 95 Nasal Cannula 2.0 02/03/19 01:21 155/95 02/03/19 01:00 75 22 155/93 96 Nasal Cannula 2.0 02/03/19 00:00 Nasal Cannula 2.0 Nasal Cannula 2.0 02/03/19 00:00 98.6 82 18 126/96 95 Nasal Cannula 2.0 02/03/19 00:00 88 02/02/19 23:15 78 24 99 Nasal Cannula 3.0 32 02/02/19 23:05 77 23 95 Nasal Cannula 3.0 32 02/02/19 23:00 86 20 146/91 95 Nasal Cannula 2.0 02/02/19 22:00 85 21 152/88 96 Nasal Cannula 2.0 02/02/19 21:00 100 23 143/95 93 Nasal Cannula 2.0 02/02/19 20:47 99.0 02/02/19 20:17 92 162/93 02/02/19 20:00 90 02/02/19 20:00 100.5 98 21 162/93 93 Nasal Cannula 2.0 02/02/19 20:00 2.0 02/02/19 20:00 Nasal Cannula 2.0 Nasal Cannula 2.0 02/02/19 19:52 88 21 97 Nasal Cannula 3.0 32 02/02/19 19:42 96 Nasal Cannula 3.0 32 02/02/19 19:42 100 18 96 Nasal Cannula 3.0 32 02/02/19 19:00 96 25 146/84 91 Nasal Cannula 2.0 02/02/19 18:19 152/90 02/02/19 18:00 92 22 152/90 93 Mechanical Ventilator 45 02/02/19 17:00 90 22 144/54 93 Mechanical Ventilator 45 02/02/19 16:00 Nasal Cannula 2.0 Nasal Cannula 2.0 02/02/19 16:00 98.8 88 22 148/68 93 Mechanical Ventilator 45 02/02/19 16:00 92 02/02/19 15:00 84 22 161/94 93 Mechanical Ventilator 45 02/02/19 14:55 78 18 97 Nasal Cannula 3.0 32 79 18 96 02/02/19 14:00 81 22 155/97 93 Mechanical Ventilator 45 02/02/19 13:00 78 21 143/78 94 Mechanical Ventilator 45 02/02/19 12:40 159/109 02/02/19 12:15 2.0 02/02/19 12:00 45 02/02/19 12:00 84 02/02/19 12:00 Nasal Cannula 2.0 Nasal Cannula 2.0 02/02/19 12:00 99.5 98 18 159/105 94 Mechanical Ventilator 45 02/02/19 11:15 98 Nasal Cannula 3.0 32 02/02/19 11:15 Nasal Cannula 3.0 32 02/02/19 11:00 77 18 137/98 95 Mechanical Ventilator 45 02/02/19 10:50 76 144/88 Intake and Output 02/02/19 02/03/19 18:59 06:59 Intake Total 930 ml 952.5 ml Output Total 1400 ml 1480 ml Balance -470 ml -527.5 ml Free Water 30 ml IV Total 900 ml 952.5 ml Output Urine Total 1400 ml 1480 ml Laboratory Tests Test 02/03/19 03:50 White Blood Count 13.6 K/UL (4.8-10.8) H Red Blood Count 3.51 M/UL (4.20-5.40) L Hemoglobin 11.3 G/DL (12.0-16.0) L Hematocrit 33.7 % (37.0-47.0) L Mean Corpuscular Volume 96 FL (80-99) Mean Corpuscular Hemoglobin 32.1 PG (27.0-31.0) H Mean Corpuscular Hemoglobin Concent 33.4 G/DL (32.0-36.0) Red Cell Distribution Width 12.3 % (11.6-14.8) Platelet Count 229 K/UL (150-450) Mean Platelet Volume 6.4 FL (6.5-10.1) L Neutrophils (%) (Auto) 66.7 % (45.0-75.0) Lymphocytes (%) (Auto) 17.5 % (20.0-45.0) L Monocytes (%) (Auto) 11.0 % (1.0-10.0) H Eosinophils (%) (Auto) 3.9 % (0.0-3.0) H Basophils (%) (Auto) 0.9 % (0.0-2.0) Sodium Level 143 MMOL/L (136-145) Potassium Level 3.1 MMOL/L (3.5-5.1) L Chloride Level 105 MMOL/L (98-107) Carbon Dioxide Level 27 MMOL/L (21-32) Anion Gap 11 mmol/L (5-15) Blood Urea Nitrogen 47 mg/dL (7-18) H Creatinine 2.8 MG/DL (0.55-1.30) H Estimat Glomerular Filtration Rate 17.4 mL/min (>60) Glucose Level 98 MG/DL (74-106) Uric Acid 6.8 MG/DL (2.6-7.2) Calcium Level 10.2 MG/DL (8.5-10.1) H Phosphorus Level 3.9 MG/DL (2.5-4.9) Magnesium Level 1.7 MG/DL (1.8-2.4) L Total Bilirubin 0.5 MG/DL (0.2-1.0) Aspartate Amino Transf (AST/SGOT) 17 U/L (15-37) Alanine Aminotransferase (ALT/SGPT) 10 U/L (12-78) L Alkaline Phosphatase 60 U/L (46-116) C-Reactive Protein, Quantitative 9.4 mg/dL (0.00-0.90) H Pro-B-Type Natriuretic Peptide 598 pg/mL (0-125) H Total Protein 8.0 G/DL (6.4-8.2) Albumin 3.1 G/DL (3.4-5.0) L Globulin 4.9 g/dL Albumin/Globulin Ratio 0.6 (1.0-2.7) L Objective General Appearance: No acute distress HEENT: No JVD. Respiratory/Chest: lungs clear Cardiovascular: RRR Abdomen: soft, non tender Extremities: no edema, other - left Justo Sinclair MD Feb 03, 2019 10:22
--- NOTE | 2019-02-03 10:32 | NUR ---
SWALLOW/SPEECH THERAPY NOTE: REFERRED BY DR HALEY FOR SWALLOW EVALUATION, SEE FULL REPORT. DYSPHAGIA RISK FACTORS FOR THIS 58 Y.O.F.: ACUTE ISSUES: acute resp distress, EMERGENTLY intubated (JAN 29 TO 2018 OR 5 DAYS ONE DAY POST NOW) AND WAS AMS AND HYPOXIC, LATER PLACED ON CPAP UNTIL 02/02/19 AND NOW ON 2 LITERS NC, RESP RATE 18 TO 24 WITH HIGH BP AND 02 SAT 93 TO 95, L LOWER LOBE PNA SEPSIS, DEHYDRATION. ONE DAY NO PO NOR OGT FEEDINGS. H/O GERD MEDS NOW, DEMENTIA, SEIZURE D/O, COPD, PSYCH (MDD, ANXIETY,SCHIZOPHRENIA, DELUSIONAL D/O SEROQUEL AND ZYPREXA AT SNF NOT ON PSYCH MEDS NOW), KIDNEY DZ PER POLST, NO TUBE FEEDINGS BUT FULL CODE AT [facility] ON A REGULAR TEXTURE DIET AND THIN LIQUIDS (RENAL 80 GM PROTEIN LOW POTASSIUM, ROBB AND CCHO HAD OGT (NEPRO FORMULA) PULLED YESTERDAY WHEN EXTUBATED AND NPO NOW. NO DIET TYPE RECOMMENDED BUT RD DID NOTE HIGH NUTRITION RISK. JUNE [address] AT [facility] [place] MORBID OBESITY CLASS I DIET WAS LIBERALIZED THEN. ALERT BUT CONFUSED (PERSEVERATES ON SAME VERBAL RESPONSE AND DOESN'T ANSWER SPECIFIC QUESTIONS, OFF TOPIC). ABLE TO CONVEY SOME BASIC NEEDS (THAT SHE WANTS TO EAT BY MOUTH) IN BREATHY VOICE (JUST EXTUBATED YESTERDAY (INTUBATED 5 DAYS). ORIENTED TO SELF AND MONTH BUT NOT YEAR AND NOT PLACE NOR SITUATION. ONLY HAS 2 UPPER TEETH IN POOR CONDITION. INITIAL IMPRESSIONS S/S OF AT LEAST A MILD OROPHARYNGEAL DYSPHAGIA WITH MILDLY INCREASED OROPHARYNGEAL TRANSIT TIMES. GIVEN THIN LIQUIDS VIA STRAW SEQUENTIAL SIP, SHE WAS ABLE TO SWALLOW 3 0Z (GRYGLA SWALLOW PROTOCOL) WITH FAIR HYOLARYNGEAL EXCURSION, NO OVERT ASPIRATION BUT RESP RATE WENT UP FOR 20 TO 24 AND DOWN TO 18-20 WHEN RESTING. 02 SATS NO SIGNIFICANT CHANGE. GIVEN PUREED TSP, SHE DID TEND TO CHEW THE BOLUS A FEW SECONDS AND THEN SWALLOWED WITH FAIR HYOLARYNGEAL EXCURSION, NO ORAL RESIDUE, NO OVERT ASPIRATION. GIVEN MASTICATED SOLID (1/2 CRACKER), CHEWED FOR 10 SECONDS AND TALKED WITH PO (INCREASED ASP RISK), REQUESTED THIN LIQUID WASH TO CLEAR THE MILD ORAL RESIDUE, NO OVERT ASPIRATION. HAS SILENT ASPIRATION RISK DUE TO CVA AND DEMENTIA HX (AND HAS CURRENT L LL PNA). RECOMMENDATIONS: CONSIDER MODIFIED BARIUM SWALLOW STUDY TO FURTHER ASSESS SWALLOW, DETERMINE SILENT ASPIRATION RISK/ETIOLOGY, AND ATTEMPT TRIAL TX TECHNIQUES. IF PO GIVEN FOR QUALITY OF LIFE (PT REFUSING NGT AND WANTS TO EAT), SEND MOIST PUREED AND NECTAR THICK LIQUIDS FOR NOW WITH POSTED ASPIRATION AND REFLUX PRECAUTIONS AND ONE TO ONE FEEDING. NEEDS ORAL CARE AND TWO UPPER FRONT TEETH BRUSHED. CONSIDER DIET TYPE PER SNF UNTIL DIETITIAN MAKES THEIR RECOMMENDATIONS. SEND GLUCERNA TID IF INDICATED. SKILLED DYSPHAGIA MANAGEMENT AND TX AND COG-COM EVAL/TX CONSIDER ENT TO CHECK VOCAL FOLDS IF VOICE NOT NORMAL AFTER 3 WEEKS FROM 02/02/19 SINCE PATIENT HAD AN EMERGENT INTUBATION (5 DAYS) AND VOICE IS VERY BREATHY AND HOARSE. EDUCATED/TRAINED RN (EVELINE) IN POSTED PRECAUTIONS Addendum: 02/03/19 at 1039 by MAREK SEO BELL CLERK HAS A SPONTANEOUS COUGH THAT DID NOT APPEAR TO BE ASPIRATION RELATED. PATIENT ADMITS THAT SHE USED TO BE PLACED ON NECTAR THICK LIQUIDS. Addendum: 02/03/19 at 1043 by MAREK SEO BELL CLERK UPDATED REPORT SUMMARY SWALLOW/SPEECH THERAPY NOTE: REFERRED BY DR HALEY FOR SWALLOW EVALUATION, SEE FULL REPORT. DYSPHAGIA RISK FACTORS FOR THIS 58 Y.O.F.: ACUTE ISSUES: acute resp distress, EMERGENTLY intubated (JAN 29 TO 2018 OR 5 DAYS ONE DAY POST NOW) AND WAS AMS AND HYPOXIC, LATER PLACED ON CPAP UNTIL 02/02/19 AND NOW ON 2 LITERS NC, RESP RATE 18 TO 24 WITH HIGH BP AND 02 SAT 93 TO 95, L LOWER LOBE PNA SEPSIS, DEHYDRATION. ONE DAY NO PO NOR OGT FEEDINGS. 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 NOT ON PSYCH MEDS NOW), KIDNEY DZ PER [facility], NO TUBE FEEDINGS BUT FULL CODE AT [facility] ON A REGULAR TEXTURE DIET AND THIN LIQUIDS (RENAL 80 GM PROTEIN LOW POTASSIUM, ROBB AND CCHO HAD OGT (NEPRO FORMULA) PULLED YESTERDAY WHEN EXTUBATED AND NPO NOW. NO DIET TYPE RECOMMENDED BUT RD DID NOTE HIGH NUTRITION RISK. JUNE [address] [facility] [place] MORBID OBESITY CLASS I DIET WAS LIBERALIZED THEN. ALERT BUT CONFUSED (PERSEVERATES ON SAME VERBAL RESPONSE AND DOESN'T ANSWER SPECIFIC QUESTIONS, OFF TOPIC). ABLE TO CONVEY SOME BASIC NEEDS (THAT SHE WANTS TO EAT BY MOUTH) IN BREATHY VOICE (JUST EXTUBATED YESTERDAY (INTUBATED 5 DAYS). ORIENTED TO SELF AND MONTH BUT NOT YEAR AND NOT PLACE NOR SITUATION. ONLY HAS 2 UPPER TEETH IN POOR CONDITION. HAS A SPONTANEOUS COUGH THAT DID NOT APPEAR TO BE ASPIRATION RELATED. PATIENT ADMITS THAT SHE USED TO BE PLACED ON NECTAR THICK LIQUIDS. 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 GIVEN THIN LIQUIDS VIA STRAW SEQUENTIAL SIP, SHE WAS ABLE TO SWALLOW 3 0Z (GRYGLA SWALLOW PROTOCOL) WITH FAIR HYOLARYNGEAL EXCURSION, NO OVERT ASPIRATION BUT RESP RATE WENT UP FOR 20 TO 24 AND DOWN TO 18-20 WHEN RESTING. 02 SATS NO SIGNIFICANT CHANGE. GIVEN PUREED TSP, SHE DID TEND TO CHEW THE BOLUS A FEW SECONDS AND THEN SWALLOWED WITH FAIR HYOLARYNGEAL EXCURSION, NO ORAL RESIDUE, NO OVERT ASPIRATION. GIVEN MASTICATED SOLID (1/2 CRACKER), CHEWED FOR 10 SECONDS AND TALKED WITH PO (INCREASED ASP RISK), REQUESTED THIN LIQUID WASH TO CLEAR THE MILD ORAL RESIDUE, NO OVERT ASPIRATION. HAS SILENT ASPIRATION RISK DUE TO CVA AND DEMENTIA HX (AND HAS CURRENT L LL PNA). RECOMMENDATIONS: CONSIDER MODIFIED BARIUM SWALLOW STUDY TO FURTHER ASSESS SWALLOW, DETERMINE SILENT ASPIRATION RISK/ETIOLOGY, AND ATTEMPT TRIAL TX TECHNIQUES. IF PO GIVEN FOR QUALITY OF LIFE (PT REFUSING NGT AND WANTS TO EAT), SEND MOIST PUREED AND NECTAR THICK LIQUIDS FOR NOW WITH POSTED ASPIRATION AND REFLUX PRECAUTIONS AND ONE TO ONE FEEDING. NEEDS ORAL CARE AND TWO UPPER FRONT TEETH BRUSHED. CONSIDER DIET TYPE PER SNF UNTIL DIETITIAN MAKES THEIR RECOMMENDATIONS. SEND GLUCERNA TID IF INDICATED. SKILLED DYSPHAGIA MANAGEMENT AND TX AND COG-COM EVAL/TX CONSIDER ENT TO CHECK VOCAL FOLDS IF VOICE NOT NORMAL AFTER 3 WEEKS FROM 02/02/19 SINCE PATIENT HAD AN EMERGENT INTUBATION (5 DAYS) AND VOICE IS VERY BREATHY AND HOARSE. EDUCATED/TRAINED RN (EVELINE) IN POSTED PRECAUTIONS
--- NOTE | 2019-02-03 10:49 | NUR ---
NURSE NOTES: Unable to scan KCL 20meq bags ivpb. Addendum: 02/03/19 at 1050 by EVELINE GUZMAN RN manual override and administrated medication
--- NOTE | 2019-02-03 11:13 | NUR ---
RD ASSESSMENT & RECOMMENDATIONS SEE CARE ACTIVITY FOR COMPLETE ASSESSMENT DAILY ESTIMATED NEEDS: Needs based on Critical Care, renal; 65.7 kg adj 22-28 kcals/kg 5967-8657 total kcals 1.0-1.5 g protein/kg 66-99 g total protein 25-30 mL/kg 7690-6610 total fluid mLs NUTRITION DIAGNOSIS: Swallowing difficulty r/t respiratory failure AEB pt orally intubated, OGT in place, now extubated, on renal pureed moist, nectar-thick liquid diet per SILO WORKER recs. CURRENT DIET:NPO-> Renal, pureed moist, nectar-thick liquid PO DIET RECOMMENDATIONS: Low Na/ Low fat, texture per SILO WORKER ADDITIONAL RECOMMENDATIONS: 1) Monitor lytes and BG-> need for dietary restriction 2) Maintain calibrated bed scale wt. 3) F/up w/ bowel regimen; last bm 01/30 4) Monitor tolerance to diet/ po intake- need for supplements . . .
--- NOTE | 2019-02-03 12:03 | NUR ---
NURSE NOTES: Bedside swallow eval done by speech therapist. Diet order updated. Pt tolerated lunch meal well; ate 75%.
[2019-02-03] MEDS ORDERED: D5 1/2NS 1000ml IV ONE ×3 (12:04→12:14)
[2019-02-03] MEDS ORDERED: NS 275ml ONE (12:04)
[2019-02-03] MEDS ORDERED: Tubing IV Secondary IV ONE (12:04)
[2019-02-03] MEDS: HydrALAZINE 25mg tab ORAL SCH ×2 (13:29→22:08)
--- NOTE | 2019-02-03 13:51 | NUR ---
NURSE NOTES: Turned and repositioned, kept dry and clean. No signs of distress. Patient watching television, resting comfortably.
--- NOTE | 2019-02-03 15:42 | NUR ---
NURSE NOTES: Turned and repositioned. VSS, waiting for telemetry bed. No signs of distress noted.
--- NOTE | 2019-02-03 17:10 | NUR ---
NURSE NOTES: No signs of distress. Calm and cooperative. Tolerated 25% of dinner meal.
--- NOTE | 2019-02-03 18:09 | Neurology Progress Note ---
Interim History Interim History Interim History Ms. Cole continues to feel much better. She is awake and responsive. Her voice less hoarse. She is able to communicate better. She feels generally stronger. She is breathing comfortably. She has been seizure-free. She continues to be cognitively impoverished. Review of Systems Neuro Review of Systems Benign. Objective Physical Exam Last Vital Signs Date Time Temp Pulse Resp B/P (MAP) Pulse Ox O2 Delivery O2 Flow Rate FiO2 02/03/19 16:00 Nasal Cannula 2.0 Nasal Cannula 2.0 02/03/19 16:00 85 02/03/19 15:00 20 152/100 95 02/03/19 15:00 32 02/03/19 12:00 99.2 Laboratory Tests Test 02/03/19 03:50 White Blood Count 13.6 K/UL (4.8-10.8) H Red Blood Count 3.51 M/UL (4.20-5.40) L Hemoglobin 11.3 G/DL (12.0-16.0) L Hematocrit 33.7 % (37.0-47.0) L Mean Corpuscular Volume 96 FL (80-99) Mean Corpuscular Hemoglobin 32.1 PG (27.0-31.0) H Mean Corpuscular Hemoglobin Concent 33.4 G/DL (32.0-36.0) Red Cell Distribution Width 12.3 % (11.6-14.8) Platelet Count 229 K/UL (150-450) Mean Platelet Volume 6.4 FL (6.5-10.1) L Neutrophils (%) (Auto) 66.7 % (45.0-75.0) Lymphocytes (%) (Auto) 17.5 % (20.0-45.0) L Monocytes (%) (Auto) 11.0 % (1.0-10.0) H Eosinophils (%) (Auto) 3.9 % (0.0-3.0) H Basophils (%) (Auto) 0.9 % (0.0-2.0) Sodium Level 143 MMOL/L (136-145) Potassium Level 3.1 MMOL/L (3.5-5.1) L Chloride Level 105 MMOL/L (98-107) Carbon Dioxide Level 27 MMOL/L (21-32) Anion Gap 11 mmol/L (5-15) Blood Urea Nitrogen 47 mg/dL (7-18) H Creatinine 2.8 MG/DL (0.55-1.30) H Estimat Glomerular Filtration Rate 17.4 mL/min (>60) Glucose Level 98 MG/DL (74-106) Uric Acid 6.8 MG/DL (2.6-7.2) Calcium Level 10.2 MG/DL (8.5-10.1) H Phosphorus Level 3.9 MG/DL (2.5-4.9) Magnesium Level 1.7 MG/DL (1.8-2.4) L Total Bilirubin 0.5 MG/DL (0.2-1.0) Aspartate Amino Transf (AST/SGOT) 17 U/L (15-37) Alanine Aminotransferase (ALT/SGPT) 10 U/L (12-78) L Alkaline Phosphatase 60 U/L (46-116) C-Reactive Protein, Quantitative 9.4 mg/dL (0.00-0.90) H Pro-B-Type Natriuretic Peptide 598 pg/mL (0-125) H Total Protein 8.0 G/DL (6.4-8.2) Albumin 3.1 G/DL (3.4-5.0) L Globulin 4.9 g/dL Albumin/Globulin Ratio 0.6 (1.0-2.7) L Neurologic Exam Objective PHYSICAL EXAMINATION: GENERAL: She is a well-developed, well-nourished, obese lady, lying in the intensive care unit bed, connected to a ventilator through an orotracheal tube. HEAD: Normocephalic and atraumatic. EENT: Examination was benign. NECK: No neck rigidity was observed. NEUROLOGICAL EXAMINATION: MENTAL STATUS EXAMINATION: She was awake and alert. She was oriented to self, hospital and January only. She did not know the name of the hospital date or year. She was able to recall 3/3 words immediately but could not remember any of them in 1 minute and 3 minutes. She was unable to tell me who the president president is and who prior presidents were. Her mathematical skills were impaired. Her visuospatial function was also impaired. SPEECH: Her voice minimally hoarse. LANGUAGE: She was able to comprehend and express himself relatively well. CRANIAL NERVE EXAMINATION: II: She was able to count fingers accurately. III, IV, : External ocular movements were full. The pupils were 3 mm in diameter and reactive sluggishly to light. V: She had normal facial sensations, and the temporalis masseters and pterygoids functions normally. VII: She had normal facial expressions and no facial asymmetry. VIII: She was able to hear well and had no nystagmus. IX: Her palate moved symmetrically on phonation. X: Her voice was hoarse. XI: The sternocleidomastoids and trapezii functioned well XII: The tongue was in the midline. MOTOR SYSTEM: The tone was normal in all four extremities. Examination of muscle mass revealed no focal wasting. She did have left below-knee amputation. She moved all 4 extremities on command. The strength was relatively good in her upper extremities but diminished in the lower extremities. Her effort was poor. SENSORY EXAMINATION: Light touch was symmetrical bilaterally. REFLEXES: 0 at the biceps, triceps, brachioradialis, and knees, 0 at the right ankle. The plantar response was flexor on the right side. COORDINATION, STANCE & GAIT: Could not be tested. Impression/Recommendations Diagnostic Impression 1. Ms. Bridget Cole is a 58-year-old, right-handed, lady, with a past history of a psychiatric illness, a seizure disorder, left below-knee amputation , and general debility as a result of which she lives in a residential, who on 01/29/2019 was noted to have an altered mental state related to hypoxia associated with a pneumonia, urinary tract infection, and sepsis. Since then, she has been hospitalized and has been treated for these problems. 2. She continues to feel much better. She is awake and responsive. Her voice less hoarse. She is able to communicate better. She feels generally stronger. She is breathing comfortably. She has been seizure-free. She continues to be cognitively impoverished. 3. With regards to her seizure disorder she says that she has had seizures for numerous years. When she has 1 of her seizures she passes out and can pass out for an entire week. She denies any abnormal movements, auras, or postictal neurological dysfunction. She is unable to tell me what medicines she takes for her seizures. She cannot tell me what the frequency of her seizures is. 4. On neurological examination, at this time, she is awake and alert. She is oriented to self, hospital and January only. She is able to recall 3/3 words immediately but cannot remember any of them in 1 minute and 3 minutes. She is unable to tell me who the president president is and who prior presidents were. Her mathematical skills and visuospatial function are impaired. Her voice is minimally hoarse. She is able to comprehend and express herself relatively well. She does not demonstrate any focal findings on her cranial nerve, motor, or sensory examination. However her lower extremities are weaker than the upper extremities. Her deep tendon reflexes are absent but her plantar response is flexor on the right side. 5. Her latest laboratory data on my initial evaluation revealed that she still has a leukocytosis with WBC count of 12,000. She is anemic with a hemoglobin of 11.2 G. Her chemistry panel reveals a BUN elevated at 60, a creatinine elevated at 5.0, glucose elevated at 123. Her B12 level is normal at 443. Her folate is normal at 17.9. Her TSH is normal at 0.548. Her proBNP is elevated at 1450. Her latest blood gas performed on 01/29/2019 at 2100 hours reveals a pH of 7.42, pCO2 of 36, and a pO2 of 74. The Urinalysis revealed 3+leukocyte esterase, 15-20 red blood cells and white blood cells per high-power field. 6. CT scan of the brain performed on 01/29/2019 revealed atrophy and deep white matter changes. 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 7. 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 No interictal discharges were seen. 8. The patient's history, neurological examination, laboratory data, and imaging studies are most consistent with a significant toxic metabolic encephalopathy related to sepsis associated with a urinary tract infection, pneumonia, associated hypoxia, and sedation with Versed. Her encephalopathy has improved but not resolved. 9. It is still unclear as to what type of seizure disorder the patient has. The description that she gave does not fit any specific seizure entity. Recommendations 1. Continue present management. 2. Continue aggressive treatment of infectious processes. 3. Continue aggressive treatment of respiratory dysfunction. 4. A repeat EEG will be ordered to evaluate the patient for type of seizure disorder. 5. Observe closely. Errol Quesada M.D., M.S.P.H. Errol Quesada MD Feb 03, 2019 18:09
--- NOTE | 2019-02-03 19:12 | NUR ---
HAND-OFF: Report given to GUZMAN Fairbanks.
--- NOTE | 2019-02-03 20:00 | NUR ---
NURSE NOTES: received report fr serrano rn pt alert move upper extremities left bka no acute resp distress noted reposition and suction iv infusing rt upper arm site dressing dry and intact mandujano with good urinary output reposition and suction
[2019-02-03] MEDS: Dyna-Hex 2% Top Sol 2oz TOPIC SCH (20:10)
[2019-02-03] MEDS: Carvedilol 6.25mg Tab ORAL SCH (20:51)
--- NOTE | 2019-02-03 21:23 | General Progress Note ---
Assessment/Plan Problem List: (1) Acute renal failure ICD Codes: N17.9 - Acute kidney failure, unspecified SNOMED: 77749015 Qualifiers: Qualified Codes: N17.9 - Acute kidney failure, unspecified (2) Respiratory failure ICD Codes: J96.90 - Respiratory failure, unspecified, unspecified whether with hypoxia or hypercapnia SNOMED: 232201413 Qualifiers: Qualified Codes: J96.01 - Acute respiratory failure with hypoxia; J96.02 - Acute respiratory failure with hypercapnia (3) UTI (urinary tract infection) ICD Codes: N39.0 - Urinary tract infection, site not specified SNOMED: 52520393 Qualifiers: Qualified Codes: N39.0 - Urinary tract infection, site not specified (4) Schizophrenia ICD Codes: F20.9 - Schizophrenia, unspecified SNOMED: 67302496 (5) HTN (hypertension) ICD Codes: I10 - Essential (primary) hypertension SNOMED: 76068423 (6) Leukocytosis ICD Codes: D72.829 - Elevated white blood cell count, unspecified SNOMED: 828153709, 935486637 Status: progressing Assessment/Plan: extubated clinically improving uti respiratory insuff no wheezing abx per id no acute events Subjective ROS Limited/Unobtainable: Yes Allergies: Coded Allergies: Grits (Unverified Allergy, Unknown, 07/06/17) [place] (Unverified Allergy, Unknown, 07/06/17) Objective Last 24 Hour Vital Signs Date Time Temp Pulse Resp B/P (MAP) Pulse Ox O2 Delivery O2 Flow Rate FiO2 02/03/19 20:51 99 155/85 02/03/19 19:15 97 Nasal Cannula 2.0 28 02/03/19 19:13 90 18 99 Nasal Cannula 2.0 28 89 18 98 02/03/19 18:00 95 19 126/88 Nasal Cannula 2.0 02/03/19 17:00 83 20 155/106 91 Nasal Cannula 2.0 02/03/19 16:00 Nasal Cannula 2.0 Nasal Cannula 2.0 02/03/19 16:00 85 02/03/19 16:00 98.9 93 20 155/90 95 Nasal Cannula 2.0 02/03/19 15:00 93 20 152/100 95 Nasal Cannula 2.0 02/03/19 15:00 94 20 97 Nasal Cannula 3.0 32 90 22 96 02/03/19 14:50 91 22 97 Nasal Cannula 3.0 32 02/03/19 14:00 88 20 157/112 96 Nasal Cannula 2.0 02/03/19 13:29 149/87 02/03/19 13:00 91 20 149/87 96 Nasal Cannula 2.0 02/03/19 12:00 Nasal Cannula 2.0 Nasal Cannula 2.0 02/03/19 12:00 99.2 90 18 152/93 96 Nasal Cannula 2.0 02/03/19 12:00 91 02/03/19 11:00 88 18 146/90 93 Nasal Cannula 2.0 02/03/19 10:45 89 11 98 Nasal Cannula 3.0 32 91 22 97 02/03/19 10:00 95 22 146/88 95 Nasal Cannula 2.0 02/03/19 09:00 98 24 127/83 95 Nasal Cannula 2.0 02/03/19 08:32 80 160/95 02/03/19 08:27 95 19 145/79 93 Nasal Cannula 2.0 02/03/19 08:00 86 02/03/19 08:00 83 18 184/95 93 Nasal Cannula 2.0 02/03/19 08:00 Nasal Cannula 2.0 Nasal Cannula 2.0 02/03/19 07:11 80 23 97 Nasal Cannula 3.0 32 83 22 95 02/03/19 07:00 98.6 82 19 164/92 94 Nasal Cannula 2.0 02/03/19 07:00 95 Nasal Cannula 3.0 32 02/03/19 06:05 160/95 02/03/19 06:00 81 21 160/95 95 Nasal Cannula 2.0 02/03/19 05:00 82 26 162/96 95 Nasal Cannula 2.0 02/03/19 04:40 77 20 163/93 94 Nasal Cannula 2.0 02/03/19 04:00 88 02/03/19 04:00 Nasal Cannula 2.0 Nasal Cannula 2.0 02/03/19 04:00 99.4 79 18 171/91 94 Nasal Cannula 2.0 02/03/19 03:09 75 22 99 Nasal Cannula 3.0 32 02/03/19 03:00 77 21 161/85 95 Nasal Cannula 2.0 02/03/19 02:59 73 23 95 Nasal Cannula 3.0 32 02/03/19 02:00 73 18 159/103 95 Nasal Cannula 2.0 02/03/19 01:21 155/95 02/03/19 01:00 75 22 155/93 96 Nasal Cannula 2.0 02/03/19 00:00 Nasal Cannula 2.0 Nasal Cannula 2.0 02/03/19 00:00 98.6 82 18 126/96 95 Nasal Cannula 2.0 02/03/19 00:00 88 02/02/19 23:15 78 24 99 Nasal Cannula 3.0 32 02/02/19 23:05 77 23 95 Nasal Cannula 3.0 32 02/02/19 23:00 86 20 146/91 95 Nasal Cannula 2.0 02/02/19 22:00 85 21 152/88 96 Nasal Cannula 2.0 Intake and Output 02/02/19 02/03/19 19:00 07:00 Intake Total 930 ml 927.5 ml Output Total 1570 ml 1380 ml Balance -640 ml -452.5 ml Intake Oral 50 ml Free Water 30 ml IV Total 900 ml 877.5 ml Output Urine Total 1570 ml 1380 ml Laboratory Tests 02/03/19 03:50: White Blood Count 13.6H, Red Blood Count 3.51L, Hemoglobin 11.3L, Hematocrit 33.7L, Mean Corpuscular Volume 96, Mean Corpuscular Hemoglobin 32.1H, Mean Corpuscular Hemoglobin Concent 33.4, Red Cell Distribution Width 12.3, Platelet Count 229, Mean Platelet Volume 6.4L, Neutrophils (%) (Auto) 66.7, Lymphocytes ( %) (Auto) 17.5L, Monocytes (%) (Auto) 11.0H, Eosinophils (%) (Auto) 3.9H, Basophils (%) (Auto) 0.9, Sodium Level 143, Potassium Level 3.1L, Chloride Level 105, Carbon Dioxide Level 27, Anion Gap 11, Blood Urea Nitrogen 47H, Creatinine 2.8H, Estimat Glomerular Filtration Rate 17.4, Glucose Level 98, Uric Acid 6.8, Calcium Level 10.2H, Phosphorus Level 3.9, Magnesium Level 1.7L, Total Bilirubin 0.5, Aspartate Amino Transf (AST/SGOT) 17, Alanine Aminotransferase (ALT/SGPT) 10L, Alkaline Phosphatase 60, C-Reactive Protein, Quantitative 9.4H, Pro-B-Type Natriuretic Peptide 598H, Total Protein 8.0, Albumin 3.1L, Globulin 4.9, Albumin/Globulin Ratio 0.6L Height (Feet): 5 Height (Inches): 4.00 Weight (Pounds): 209 Cardiovascular: normal rate Respiratory/Chest: lungs clear Abdomen: soft Isela Rubio MD Feb 03, 2019 21:23
[2019-02-03] MEDS ORDERED: Midazolam 5mg/5ml 50 MG in D5W 50 ML IV PRN ×4 (21:30)
--- NOTE | 2019-02-03 22:00 | NUR ---
NURSE NOTES: asleep at interval no acute acute distress noted
--- NOTE | 2019-02-03 22:24 | Pulmonolgy Critical Care Note ---
Critical Care - Asmt/Plan Assessment/Plan: Pulmonary Critical Care Progress Noted HPI The patient is a 58 year old woman admitted with worsening shortness of breath, respiratory failure requiring intubation, pneumonia. Noted to have evidence of UTI in addition to pneumonia LLL Per chart review h/o Seizure disorder, Left Kidney Mass, Hydronephrosis, Hypertension, HHD Past Medical History: ESBL UTI from snf Leukocytosis likely related to infection Left kidney mass Left hydronephrosis Anxiety Dehydration Seizure disorder on Clonazepam and Gabapentin Weakness Schizophrenia Hypertension Obesity PSH: Left BKA Allergies: Grits (Unverified Allergy, Unknown, 07/06/17) [place] (Unverified Allergy, Unknown, 07/06/17) stable overnight, sp extubation SP Ureteric stent Physical Exam Vital Signs Noted General Appearance: Awake Head: normocephalic, atraumatic, ENT: moist mucus membranes Neck: No LN Respiratory: CTAB Cardiovascular: regular rate, rhythm, HS1, HS2, no edema Gastrointestinal: decreased bowel sounds, overweight, abrasions abdominal wall Musculoskeletal: moving all limbs, BKA L Neurologic: Awake, interactive, no focal signs Skin: warm/dry, Impression: Previous Ventilator Dependent Respiratory failure now extubated Left lower lobe pulmonary infiltrate Urinary tract infection ESBL UTI from snf Acute on Chronic Renal Failure Left kidney mass Left hydronephrosis Anxiety Dehydration Seizure disorder on Clonazepam and Gabapentin Weakness Schizophrenia Hypertension Obesity Plan O2 PRN Antibiotics per ID Aspiration/Seizure precautions 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 EKG: Rate: normal Rhythm: NSR ST Segments: no acute changes Chest X-Ray: left effusion, no pneumothorax, possible L sided infiltrate Critical Care - Objective Last 24 Hour Vital Signs Date Time Temp Pulse Resp B/P (MAP) Pulse Ox O2 Delivery O2 Flow Rate FiO2 02/03/19 22:08 155/144 02/03/19 21:00 88 19 164/96 97 Nasal Cannula 02/03/19 20:51 99 155/85 02/03/19 20:19 91 23 155/85 97 Nasal Cannula 02/03/19 20:00 82 02/03/19 20:00 98.5 90 22 171/123 98 Nasal Cannula 02/03/19 20:00 Nasal Cannula 2.0 Nasal Cannula 2.0 02/03/19 19:15 97 Nasal Cannula 2.0 28 02/03/19 19:13 90 18 99 Nasal Cannula 2.0 28 89 18 98 02/03/19 19:00 86 24 141/100 96 Nasal Cannula 02/03/19 18:00 95 19 126/88 Nasal Cannula 2.0 02/03/19 17:00 83 20 155/106 91 Nasal Cannula 2.0 02/03/19 16:00 Nasal Cannula 2.0 Nasal Cannula 2.0 02/03/19 16:00 85 02/03/19 16:00 98.9 93 20 155/90 95 Nasal Cannula 2.0 02/03/19 15:00 93 20 152/100 95 Nasal Cannula 2.0 02/03/19 15:00 94 20 97 Nasal Cannula 3.0 32 90 22 96 02/03/19 14:50 91 22 97 Nasal Cannula 3.0 32 02/03/19 14:00 88 20 157/112 96 Nasal Cannula 2.0 02/03/19 13:29 149/87 02/03/19 13:00 91 20 149/87 96 Nasal Cannula 2.0 02/03/19 12:00 Nasal Cannula 2.0 Nasal Cannula 2.0 02/03/19 12:00 99.2 90 18 152/93 96 Nasal Cannula 2.0 02/03/19 12:00 91 02/03/19 11:00 88 18 146/90 93 Nasal Cannula 2.0 02/03/19 10:45 89 11 98 Nasal Cannula 3.0 32 91 22 97 02/03/19 10:00 95 22 146/88 95 Nasal Cannula 2.0 02/03/19 09:00 98 24 127/83 95 Nasal Cannula 2.0 02/03/19 08:32 80 160/95 02/03/19 08:27 95 19 145/79 93 Nasal Cannula 2.0 02/03/19 08:00 86 02/03/19 08:00 83 18 184/95 93 Nasal Cannula 2.0 02/03/19 08:00 Nasal Cannula 2.0 Nasal Cannula 2.0 02/03/19 07:11 80 23 97 Nasal Cannula 3.0 32 83 22 95 02/03/19 07:00 98.6 82 19 164/92 94 Nasal Cannula 2.0 02/03/19 07:00 95 Nasal Cannula 3.0 32 02/03/19 06:05 160/95 02/03/19 06:00 81 21 160/95 95 Nasal Cannula 2.0 02/03/19 05:00 82 26 162/96 95 Nasal Cannula 2.0 02/03/19 04:40 77 20 163/93 94 Nasal Cannula 2.0 02/03/19 04:00 88 02/03/19 04:00 Nasal Cannula 2.0 Nasal Cannula 2.0 02/03/19 04:00 99.4 79 18 171/91 94 Nasal Cannula 2.0 02/03/19 03:09 75 22 99 Nasal Cannula 3.0 32 02/03/19 03:00 77 21 161/85 95 Nasal Cannula 2.0 02/03/19 02:59 73 23 95 Nasal Cannula 3.0 32 02/03/19 02:00 73 18 159/103 95 Nasal Cannula 2.0 02/03/19 01:21 155/95 02/03/19 01:00 75 22 155/93 96 Nasal Cannula 2.0 02/03/19 00:00 Nasal Cannula 2.0 Nasal Cannula 2.0 02/03/19 00:00 98.6 82 18 126/96 95 Nasal Cannula 2.0 02/03/19 00:00 88 02/02/19 23:15 78 24 99 Nasal Cannula 3.0 32 02/02/19 23:05 77 23 95 Nasal Cannula 3.0 32 02/02/19 23:00 86 20 146/91 95 Nasal Cannula 2.0 Accucheck: 83 Critical Care - Subjective ROS Limited/Unobtainable: No FI02: 28 Vent Support Breath Rate: 16 Vent Support Mode: AC Vent Tidal Volume: 550 Sputum Amount: None PEEP: 5.0 PIP: 25 Tube Feeding Amount: 30 I&O: Intake and Output 02/02/19 02/03/19 19:00 07:00 Intake Total 930 ml 927.5 ml Output Total 1570 ml 1380 ml Balance -640 ml -452.5 ml Intake Oral 50 ml Free Water 30 ml IV Total 900 ml 877.5 ml Output Urine Total 1570 ml 1380 ml ET-Tube: 7.5 ET Position: 23 Gabino Smith MD Feb 03, 2019 22:24
[2019-02-04] VITALS (17 sets, daily range): BP systolic 137–185; BP diastolic 76–120
--- NOTE | 2019-02-04 | NUR ---
NURSE NOTES: SLEEPING AT INTERVAL
--- NOTE | 2019-02-04 | NUR ---
NURSE NOTES: reposition and suction tube feeding off 100 cc residual Addendum: 02/04/19 at 0253 by HIMANSHU YEN RN NOT PT JOSIE
--- NOTE | 2019-02-04 02:00 | NUR ---
NURSE NOTES: NO ACUTE RESP DISTRESS NOTED
--- NOTE | 2019-02-04 04:00 | NUR ---
NURSE NOTES: complete bed bath oral care back care and kings care reposition and suction
[2019-02-04] MEDS: D5 1/2NS 1,000 ML IV SCH ×3 (05:34→21:37)
[2019-02-04 05:35] LABS: BASOPHILS % (AUTO) 0.8 % (0.0-2.0); EOSINOPHILS % (AUTO) 4.9 % (0.0-3.0); HEMATOCRIT 35.1 % (37.0-47.0); HEMOGLOBIN 11.9 G/DL (12.0-16.0); LYMPHOCYTES % (AUTO) 19.3 % (20.0-45.0); MEAN CORPUSCULAR VOLUME 96 FL (80-99); MONOCYTES % (AUTO) 12.8 % (1.0-10.0); NEUTROPHILS % (AUTO) 62.2 % (45.0-75.0); PLATELET COUNT 281 K/UL (150-450); RED BLOOD COUNT 3.66 M/UL (4.20-5.40); RED CELL DISTRIBUTION WIDTH 12.4 % (11.6-14.8); WHITE BLOOD COUNT 12.6 K/UL (4.8-10.8)
[2019-02-04] MEDS: HydrALAZINE 25mg tab ORAL SCH ×3 (05:44→21:24)
[2019-02-04 06:00] LABS: ALANINE AMINOTRANSFERASE 24 U/L (12-78); ALBUMIN 3.3 G/DL (3.4-5.0); ALBUMIN/GLOBULIN RATIO 0.7 (1.0-2.7); ALKALINE PHOSPHATASE 70 U/L (46-116); ANION GAP 10 mmol/L (5-15); ASPARTATE AMINO TRANSFERASE 26 U/L (15-37); BILIRUBIN,TOTAL 0.5 MG/DL (0.2-1.0); BLOOD UREA NITROGEN 39 mg/dL (7-18); CALCIUM 10.4 MG/DL (8.5-10.1); CARBON DIOXIDE 28 MMOL/L (21-32); CHLORIDE 105 MMOL/L (98-107); PHOSPHORUS 3.5 MG/DL (2.5-4.9); POTASSIUM 3.3 MMOL/L (3.5-5.1); SODIUM 143 MMOL/L (136-145)
--- NOTE | 2019-02-04 06:00 | NUR ---
NURSE NOTES: sleeping at interval no acute distress noted
--- NOTE | 2019-02-04 07:08 | NUR ---
HAND-OFF: Report given to willie evangelista using sbar.
--- NOTE | 2019-02-04 08:15 | NUR ---
NURSE NOTES: Report received from GUZMAN Peralta.Patient awake when received and noted with episode of confusion.Able to verbalize needs, afebrile at this time and on nasal canula at 2LPM and saturate well at 96%.No apparent acute distress.Mouth care done and and suctioned as tolerated.PALMIRA picc line running D5 1/2NS@75ml/hr with no apparent infiltration.Abdomen soft and non-distended with bowel sounds present in all 4 quadrants.Left BKA with right lower leg trace of edema.Rod catheter in place draining pinkish urine with no apparent sediments.Bed in low position and locked position.Turned and repositioned for skin management and comfort.Call light within reach at all the times.Will continue to monitor.
[2019-02-04] MEDS: Docusate 250mg cap ORAL SCH (08:35)
[2019-02-04] MEDS: Carvedilol 6.25mg Tab ORAL SCH (08:35)
[2019-02-04] MEDS: Heparin 5000 units/ml inj SUBQ SCH ×2 (08:38→21:26)
--- NOTE | 2019-02-04 10:03 | NUR ---
NURSE NOTES: Pt turned and repositioned, kept clean and dry. One episode of bowel formed and brown.Good pericare done.Kept clean and dry. Seen by Dr Hatch, will follow up with new orders.Will continue close monitoring
--- NOTE | 2019-02-04 10:05 | Nephrology Progress Note ---
Assessment/Plan Problem List: (1) Acute renal failure Assessment: Cr lowering (2) Respiratory failure (3) HTN (hypertension) (4) Schizophrenia (5) Hydronephrosis Assessment Acute on Chronic Renal Failure- Cr lowering ? kidney mass Right hydronephrosis Ventilator Dependent Respiratory failure Left lower lobe pulmonary infiltrate Urinary tract infection ESBL UTI from residential Dehydration Seizure disorder on Clonazepam and Gabapentin Schizophrenia Hypertension Obesity Plan Adjust BP meds adjust electrolytes patient had right kidney stent Off Lasix adjust all mind altering meds avoid nephrotoxics monitor renal parametes per orders Subjective ROS Limited/Unobtainable: No Constitutional: Reports: malaise Objective Objective Last 24 Hour Vital Signs Date Time Temp Pulse Resp B/P (MAP) Pulse Ox O2 Delivery O2 Flow Rate FiO2 02/04/19 09:00 95 23 177/120 98 Nasal Cannula 2.0 02/04/19 08:35 88 174/103 02/04/19 08:00 98.5 87 22 174/103 98 Nasal Cannula 2.0 02/04/19 08:00 Nasal Cannula 2.0 Nasal Cannula 2.0 02/04/19 07:00 100 20 02/04/19 06:00 81 19 157/84 95 Nasal Cannula 2.0 02/04/19 06:00 81 19 157/84 83 02/04/19 05:44 169/84 02/04/19 05:28 82 19 169/84 100 02/04/19 05:11 81 20 185/87 99 02/04/19 05:02 92 26 176/98 82 02/04/19 05:00 88 25 98 Nasal Cannula 2.0 02/04/19 05:00 88 25 02/04/19 04:00 98.0 76 22 164/93 Nasal Cannula 2.0 02/04/19 04:00 78 02/04/19 04:00 Nasal Cannula 2.0 Nasal Cannula 2.0 02/04/19 04:00 76 22 164/93 02/04/19 03:00 71 19 149/76 100 02/04/19 03:00 71 19 149/76 100 Nasal Cannula 2.0 02/04/19 02:00 76 17 137/91 94 Nasal Cannula 2.0 02/04/19 02:00 76 17 137/91 02/04/19 02:00 76 17 137/91 02/04/19 01:00 81 20 137/87 86 02/04/19 01:00 81 20 137/87 95 Nasal Cannula 2.0 02/04/19 00:00 Nasal Cannula 2.0 Nasal Cannula 2.0 02/04/19 00:00 86 17 145/80 91 02/04/19 00:00 98.6 86 17 145/80 91 Nasal Cannula 2.0 02/04/19 00:00 84 02/03/19 23:00 87 19 148/82 94 Nasal Cannula 2.0 02/03/19 22:08 155/144 02/03/19 22:00 89 22 155/114 94 Nasal Cannula 02/03/19 21:00 88 19 164/96 97 Nasal Cannula 02/03/19 20:51 99 155/85 02/03/19 20:19 91 23 155/85 97 Nasal Cannula 02/03/19 20:00 82 02/03/19 20:00 98.5 90 22 171/123 98 Nasal Cannula 02/03/19 20:00 Nasal Cannula 2.0 Nasal Cannula 2.0 02/03/19 19:15 97 Nasal Cannula 2.0 28 02/03/19 19:13 90 18 99 Nasal Cannula 2.0 28 89 18 98 02/03/19 19:00 86 24 141/100 96 Nasal Cannula 02/03/19 18:00 95 19 126/88 Nasal Cannula 2.0 02/03/19 17:00 83 20 155/106 91 Nasal Cannula 2.0 02/03/19 16:00 Nasal Cannula 2.0 Nasal Cannula 2.0 02/03/19 16:00 85 02/03/19 16:00 98.9 93 20 155/90 95 Nasal Cannula 2.0 02/03/19 15:00 93 20 152/100 95 Nasal Cannula 2.0 02/03/19 15:00 94 20 97 Nasal Cannula 3.0 32 90 22 96 02/03/19 14:50 91 22 97 Nasal Cannula 3.0 32 02/03/19 14:00 88 20 157/112 96 Nasal Cannula 2.0 02/03/19 13:29 149/87 02/03/19 13:00 91 20 149/87 96 Nasal Cannula 2.0 02/03/19 12:00 Nasal Cannula 2.0 Nasal Cannula 2.0 02/03/19 12:00 99.2 90 18 152/93 96 Nasal Cannula 2.0 02/03/19 12:00 91 02/03/19 11:00 88 18 146/90 93 Nasal Cannula 2.0 02/03/19 10:45 89 11 98 Nasal Cannula 3.0 32 91 22 97 Intake and Output 02/03/19 02/04/19 18:59 06:59 Intake Total 1220 ml 1190 ml Output Total 1800 ml 2200 ml Balance -580 ml -1010 ml Intake Oral 470 ml 160 ml IV Total 750 ml 1030 ml Output Urine Total 1800 ml 2200 ml Laboratory Tests 02/04/19 04:30: White Blood Count 12.6H, Red Blood Count 3.66L, Hemoglobin 11.9L, Hematocrit 35.1L, Mean Corpuscular Volume 96, Mean Corpuscular Hemoglobin 32.5H, Mean Corpuscular Hemoglobin Concent 33.9, Red Cell Distribution Width 12.4, Platelet Count 281, Mean Platelet Volume 6.8, Neutrophils (%) (Auto) 62.2, Lymphocytes (% ) (Auto) 19.3L, Monocytes (%) (Auto) 12.8H, Eosinophils (%) (Auto) 4.9H, Basophils (%) (Auto) 0.8, Sodium Level 143, Potassium Level 3.3L, Chloride Level 105, Carbon Dioxide Level 28, Anion Gap 10, Blood Urea Nitrogen 39H, Creatinine 2.0H, Estimat Glomerular Filtration Rate 25.7, Glucose Level 98, Calcium Level 10.4H, Phosphorus Level 3.5, Magnesium Level 1.5L, Total Bilirubin 0.5, Aspartate Amino Transf (AST/SGOT) 26, Alanine Aminotransferase ( ALT/SGPT) 24, Alkaline Phosphatase 70, Total Protein 8.2, Albumin 3.3L, Globulin 4.9, Albumin/Globulin Ratio 0.7L Height (Feet): 5 Height (Inches): 4.00 Weight (Pounds): 200 General Appearance: no apparent distress Respiratory/Chest: decreased breath sounds Abdomen: soft Derrell Hatch MD Feb 04, 2019 10:05
[2019-02-04] MEDS ORDERED: Carvedilol 12.5mg tab ORAL SCH (10:15)
[2019-02-04] MEDS ORDERED: Carvedilol 6.25mg Tab ONE (10:26)
[2019-02-04] MEDS ORDERED: Carvedilol 6.25mg Tab ORAL SCH (10:37)
[2019-02-04] MEDS ORDERED: D5W IV SCH (11:30)
[2019-02-04] MEDS ORDERED: MAGNESIUM SULFATE IV SCH (11:30)
--- NOTE | 2019-02-04 11:35 | Infectious Diseases Prog Note ---
Assessment/Plan Assessment/Plan A; Sepsis Positive blood culture, contamination Acute renal failure Acute respiratory failure, resolved Hydronephrosis Obstructive uropathy Schizophrenia P; Observe off antibiotic Will f/u CBC Subjective ROS Limited/Unobtainable: Yes Constitutional: Reports: no symptoms Respiratory: Reports: other - occasional cough Gastrointestinal/Abdominal: Reports: no symptoms Genitourinary: Reports: no symptoms Allergies: Coded Allergies: Grits (Unverified Allergy, Unknown, 07/06/17) [place] (Unverified Allergy, Unknown, 07/06/17) Objective Vital Signs Last 24 Hour Vital Signs Date Time Temp Pulse Resp B/P (MAP) Pulse Ox O2 Delivery O2 Flow Rate FiO2 02/04/19 11:00 81 21 162/97 97 Nasal Cannula 2.0 02/04/19 10:57 84 177/90 02/04/19 10:00 95 23 177/120 98 Nasal Cannula 2.0 02/04/19 10:00 104 21 177/90 98 Nasal Cannula 2.0 02/04/19 09:00 95 23 177/120 98 Nasal Cannula 2.0 02/04/19 08:35 88 174/103 02/04/19 08:00 98.5 87 22 174/103 98 Nasal Cannula 2.0 02/04/19 08:00 79 02/04/19 08:00 Nasal Cannula 2.0 Nasal Cannula 2.0 02/04/19 07:00 100 20 02/04/19 06:00 81 19 157/84 95 Nasal Cannula 2.0 02/04/19 06:00 81 19 157/84 83 02/04/19 05:44 169/84 02/04/19 05:28 82 19 169/84 100 02/04/19 05:11 81 20 185/87 99 02/04/19 05:02 92 26 176/98 82 02/04/19 05:00 88 25 98 Nasal Cannula 2.0 02/04/19 05:00 88 25 02/04/19 04:00 98.0 76 22 164/93 Nasal Cannula 2.0 02/04/19 04:00 78 02/04/19 04:00 Nasal Cannula 2.0 Nasal Cannula 2.0 02/04/19 04:00 76 22 164/93 02/04/19 03:00 71 19 149/76 100 02/04/19 03:00 71 19 149/76 100 Nasal Cannula 2.0 02/04/19 02:00 76 17 137/91 94 Nasal Cannula 2.0 02/04/19 02:00 76 17 137/91 02/04/19 02:00 76 17 137/91 02/04/19 01:00 81 20 137/87 86 02/04/19 01:00 81 20 137/87 95 Nasal Cannula 2.0 02/04/19 00:00 Nasal Cannula 2.0 Nasal Cannula 2.0 02/04/19 00:00 86 17 145/80 91 02/04/19 00:00 98.6 86 17 145/80 91 Nasal Cannula 2.0 02/04/19 00:00 84 02/03/19 23:00 87 19 148/82 94 Nasal Cannula 2.0 02/03/19 22:08 155/144 02/03/19 22:00 89 22 155/114 94 Nasal Cannula 02/03/19 21:00 88 19 164/96 97 Nasal Cannula 02/03/19 20:51 99 155/85 02/03/19 20:19 91 23 155/85 97 Nasal Cannula 02/03/19 20:00 82 02/03/19 20:00 98.5 90 22 171/123 98 Nasal Cannula 02/03/19 20:00 Nasal Cannula 2.0 Nasal Cannula 2.0 02/03/19 19:15 97 Nasal Cannula 2.0 28 02/03/19 19:13 90 18 99 Nasal Cannula 2.0 28 89 18 98 02/03/19 19:00 86 24 141/100 96 Nasal Cannula 02/03/19 18:00 95 19 126/88 Nasal Cannula 2.0 02/03/19 17:00 83 20 155/106 91 Nasal Cannula 2.0 02/03/19 16:00 Nasal Cannula 2.0 Nasal Cannula 2.0 02/03/19 16:00 85 02/03/19 16:00 98.9 93 20 155/90 95 Nasal Cannula 2.0 02/03/19 15:00 93 20 152/100 95 Nasal Cannula 2.0 02/03/19 15:00 94 20 97 Nasal Cannula 3.0 32 90 22 96 02/03/19 14:50 91 22 97 Nasal Cannula 3.0 32 02/03/19 14:00 88 20 157/112 96 Nasal Cannula 2.0 02/03/19 13:29 149/87 02/03/19 13:00 91 20 149/87 96 Nasal Cannula 2.0 02/03/19 12:00 Nasal Cannula 2.0 Nasal Cannula 2.0 02/03/19 12:00 99.2 90 18 152/93 96 Nasal Cannula 2.0 02/03/19 12:00 91 Height (Feet): 5 Height (Inches): 4.00 Weight (Pounds): 200 HEENT: other - poor dentition Respiratory/Chest: lungs clear Cardiovascular: normal rate Abdomen: soft, non tender Genitourinary: other - Rod catheter, hematuria Extremities: no edema Neurologic/Psychiatric: alert, responsive Laboratory Tests Test 02/04/19 04:30 White Blood Count 12.6 K/UL (4.8-10.8) H Red Blood Count 3.66 M/UL (4.20-5.40) L Hemoglobin 11.9 G/DL (12.0-16.0) L Hematocrit 35.1 % (37.0-47.0) L Mean Corpuscular Volume 96 FL (80-99) Mean Corpuscular Hemoglobin 32.5 PG (27.0-31.0) H Mean Corpuscular Hemoglobin Concent 33.9 G/DL (32.0-36.0) Red Cell Distribution Width 12.4 % (11.6-14.8) Platelet Count 281 K/UL (150-450) Mean Platelet Volume 6.8 FL (6.5-10.1) Neutrophils (%) (Auto) 62.2 % (45.0-75.0) Lymphocytes (%) (Auto) 19.3 % (20.0-45.0) L Monocytes (%) (Auto) 12.8 % (1.0-10.0) H Eosinophils (%) (Auto) 4.9 % (0.0-3.0) H Basophils (%) (Auto) 0.8 % (0.0-2.0) Sodium Level 143 MMOL/L (136-145) Potassium Level 3.3 MMOL/L (3.5-5.1) L Chloride Level 105 MMOL/L (98-107) Carbon Dioxide Level 28 MMOL/L (21-32) Anion Gap 10 mmol/L (5-15) Blood Urea Nitrogen 39 mg/dL (7-18) H Creatinine 2.0 MG/DL (0.55-1.30) H Estimat Glomerular Filtration Rate 25.7 mL/min (>60) Glucose Level 98 MG/DL (74-106) Calcium Level 10.4 MG/DL (8.5-10.1) H Phosphorus Level 3.5 MG/DL (2.5-4.9) Magnesium Level 1.5 MG/DL (1.8-2.4) L Total Bilirubin 0.5 MG/DL (0.2-1.0) Aspartate Amino Transf (AST/SGOT) 26 U/L (15-37) Alanine Aminotransferase (ALT/SGPT) 24 U/L (12-78) Alkaline Phosphatase 70 U/L (46-116) Total Protein 8.2 G/DL (6.4-8.2) Albumin 3.3 G/DL (3.4-5.0) L Globulin 4.9 g/dL Albumin/Globulin Ratio 0.7 (1.0-2.7) L Current Medications Medications (Trade) Dose Ordered Sig/William Route PRN Reason Start Time Stop Time Status Last Admin Dose Admin Acetaminophen (Tylenol) 650 mg Q6H PRN ORAL Fever (temp>100.5F) 01/29/19 18:30 02/28/19 18:29 02/02/19 20:17 Bisacodyl (Dulcolax) 10 mg DAILYPRN PRN RECTAL Constipation 01/29/19 20:00 02/28/19 19:59 02/03/19 04:34 Carvedilol (Coreg) 12.5 mg ONCE ORAL 02/04/19 10:37 02/04/19 11:35 02/04/19 10:57 Carvedilol (Coreg) 25 mg EVERY 12 HOURS ORAL 02/04/19 21:00 03/04/19 10:29 Chlorhexidine Gluconate (Genevieve-Hex 2%) 1 applic DAILY@1999 TOPIC 02/01/19 20:00 02/28/19 19:59 02/03/19 20:10 Dextrose (Dextrose 50%) 25 ml Q30M PRN IV Hypoglycemia 01/29/19 18:30 02/28/19 18:29 Dextrose (Dextrose 50%) 50 ml Q30M PRN IV Hypoglycemia 01/29/19 18:30 02/28/19 18:29 Dextrose/Sodium Chloride 1,000 ml @ 75 mls/hr [id number] IV 01/31/19 07:52 03/02/19 07:51 02/04/19 05:34 Docusate Sodium (Colace) 250 mg DAILY ORAL 01/30/19 09:00 03/01/19 08:59 02/04/19 08:35 Heparin Sodium (Porcine) (Heparin 5000 units/ml) 5,000 units EVERY 12 HOURS SUBQ 01/30/19 09:00 03/01/19 08:59 02/04/19 08:38 Hydralazine HCl (Apresoline) 10 mg Q2H PRN IV For High Blood Pressure 01/31/19 15:45 03/02/19 15:44 Hydralazine HCl (Apresoline) 25 mg Q8HR ORAL 02/03/19 14:00 03/04/19 11:59 02/04/19 05:44 Hydromorphone HCl (Dilaudid) 0.5 mg Q2H PRN IVP For Pain 01/29/19 18:30 02/05/19 18:29 02/02/19 01:49 Magnesium Sulfate 3000 mg/Dextrose 281 ml @ 90 mls/hr ONCE IV 02/04/19 11:30 02/04/19 12:30 Midazolam HCl 50 mg/Dextrose 100 ml @ 0 mls/hr Q24H PRN IV Restlessness 02/03/19 21:30 02/05/19 18:59 Pantoprazole (Protonix) 40 mg EVERY 12 HOURS ORAL 02/03/19 21:00 03/05/19 20:59 02/04/19 08:35 Potassium Chloride (K-Dur) 40 meq TWICE A DAY ORAL 02/04/19 09:00 03/06/19 08:59 02/04/19 09:00 Jose Solis MD Feb 04, 2019 11:35
--- NOTE | 2019-02-04 12:14 | NUR ---
NURSE NOTES: Pt consumed about 25 % at lunch and drink 1 can glucerna. Denied of any pain and discomfort at this time. Kept clean dry and comfortable.No significant change of condition at this time.Will continue to monitor
--- NOTE | 2019-02-04 12:16 | Cardiac Electrophysiology PN ---
Assessment/Plan Assessment/Plan 1. S/P Respiratory failure. Extubated. EF 60%. On meropenem 2. HTN On Coreg 3.125 bid and hydralazine 10 q6 hr. 3. Acute renal failure. S/P stent by Dr Walker 4. S/P Left BKA 5. Transfer to [facility] RN Subjective Subjective In ICU alert in NAD. Had Ureteral stent placement by Dr. Walker. No CP or SOB Objective Last 24 Hour Vital Signs Date Time Temp Pulse Resp B/P (MAP) Pulse Ox O2 Delivery O2 Flow Rate FiO2 02/04/19 11:00 81 21 162/97 97 Nasal Cannula 2.0 02/04/19 10:57 84 177/90 02/04/19 10:00 95 23 177/120 98 Nasal Cannula 2.0 02/04/19 10:00 104 21 177/90 98 Nasal Cannula 2.0 02/04/19 09:00 95 23 177/120 98 Nasal Cannula 2.0 02/04/19 08:35 88 174/103 02/04/19 08:00 98.5 87 22 174/103 98 Nasal Cannula 2.0 02/04/19 08:00 79 02/04/19 08:00 Nasal Cannula 2.0 Nasal Cannula 2.0 02/04/19 07:00 100 20 02/04/19 06:00 81 19 157/84 95 Nasal Cannula 2.0 02/04/19 06:00 81 19 157/84 83 02/04/19 05:44 169/84 02/04/19 05:28 82 19 169/84 100 02/04/19 05:11 81 20 185/87 99 02/04/19 05:02 92 26 176/98 82 02/04/19 05:00 88 25 98 Nasal Cannula 2.0 02/04/19 05:00 88 25 02/04/19 04:00 98.0 76 22 164/93 Nasal Cannula 2.0 02/04/19 04:00 78 02/04/19 04:00 Nasal Cannula 2.0 Nasal Cannula 2.0 02/04/19 04:00 76 22 164/93 02/04/19 03:00 71 19 149/76 100 02/04/19 03:00 71 19 149/76 100 Nasal Cannula 2.0 02/04/19 02:00 76 17 137/91 94 Nasal Cannula 2.0 02/04/19 02:00 76 17 137/91 02/04/19 02:00 76 17 137/91 02/04/19 01:00 81 20 137/87 86 02/04/19 01:00 81 20 137/87 95 Nasal Cannula 2.0 02/04/19 00:00 Nasal Cannula 2.0 Nasal Cannula 2.0 02/04/19 00:00 86 17 145/80 91 02/04/19 00:00 98.6 86 17 145/80 91 Nasal Cannula 2.0 02/04/19 00:00 84 02/03/19 23:00 87 19 148/82 94 Nasal Cannula 2.0 02/03/19 22:08 155/144 02/03/19 22:00 89 22 155/114 94 Nasal Cannula 02/03/19 21:00 88 19 164/96 97 Nasal Cannula 02/03/19 20:51 99 155/85 02/03/19 20:19 91 23 155/85 97 Nasal Cannula 02/03/19 20:00 82 02/03/19 20:00 98.5 90 22 171/123 98 Nasal Cannula 02/03/19 20:00 Nasal Cannula 2.0 Nasal Cannula 2.0 02/03/19 19:15 97 Nasal Cannula 2.0 28 02/03/19 19:13 90 18 99 Nasal Cannula 2.0 28 89 18 98 02/03/19 19:00 86 24 141/100 96 Nasal Cannula 02/03/19 18:00 95 19 126/88 Nasal Cannula 2.0 02/03/19 17:00 83 20 155/106 91 Nasal Cannula 2.0 02/03/19 16:00 Nasal Cannula 2.0 Nasal Cannula 2.0 02/03/19 16:00 85 02/03/19 16:00 98.9 93 20 155/90 95 Nasal Cannula 2.0 02/03/19 15:00 93 20 152/100 95 Nasal Cannula 2.0 02/03/19 15:00 94 20 97 Nasal Cannula 3.0 32 90 22 96 02/03/19 14:50 91 22 97 Nasal Cannula 3.0 32 02/03/19 14:00 88 20 157/112 96 Nasal Cannula 2.0 02/03/19 13:29 149/87 02/03/19 13:00 91 20 149/87 96 Nasal Cannula 2.0 Intake and Output 02/03/19 02/04/19 18:59 06:59 Intake Total 1220 ml 1190 ml Output Total 1800 ml 2200 ml Balance -580 ml -1010 ml Intake Oral 470 ml 160 ml IV Total 750 ml 1030 ml Output Urine Total 1800 ml 2200 ml Laboratory Tests Test 02/04/19 04:30 White Blood Count 12.6 K/UL (4.8-10.8) H Red Blood Count 3.66 M/UL (4.20-5.40) L Hemoglobin 11.9 G/DL (12.0-16.0) L Hematocrit 35.1 % (37.0-47.0) L Mean Corpuscular Volume 96 FL (80-99) Mean Corpuscular Hemoglobin 32.5 PG (27.0-31.0) H Mean Corpuscular Hemoglobin Concent 33.9 G/DL (32.0-36.0) Red Cell Distribution Width 12.4 % (11.6-14.8) Platelet Count 281 K/UL (150-450) Mean Platelet Volume 6.8 FL (6.5-10.1) Neutrophils (%) (Auto) 62.2 % (45.0-75.0) Lymphocytes (%) (Auto) 19.3 % (20.0-45.0) L Monocytes (%) (Auto) 12.8 % (1.0-10.0) H Eosinophils (%) (Auto) 4.9 % (0.0-3.0) H Basophils (%) (Auto) 0.8 % (0.0-2.0) Sodium Level 143 MMOL/L (136-145) Potassium Level 3.3 MMOL/L (3.5-5.1) L Chloride Level 105 MMOL/L (98-107) Carbon Dioxide Level 28 MMOL/L (21-32) Anion Gap 10 mmol/L (5-15) Blood Urea Nitrogen 39 mg/dL (7-18) H Creatinine 2.0 MG/DL (0.55-1.30) H Estimat Glomerular Filtration Rate 25.7 mL/min (>60) Glucose Level 98 MG/DL (74-106) Calcium Level 10.4 MG/DL (8.5-10.1) H Phosphorus Level 3.5 MG/DL (2.5-4.9) Magnesium Level 1.5 MG/DL (1.8-2.4) L Total Bilirubin 0.5 MG/DL (0.2-1.0) Aspartate Amino Transf (AST/SGOT) 26 U/L (15-37) Alanine Aminotransferase (ALT/SGPT) 24 U/L (12-78) Alkaline Phosphatase 70 U/L (46-116) Total Protein 8.2 G/DL (6.4-8.2) Albumin 3.3 G/DL (3.4-5.0) L Globulin 4.9 g/dL Albumin/Globulin Ratio 0.7 (1.0-2.7) L Objective General Appearance: No acute distress HEENT: No JVD. Respiratory/Chest: lungs clear Cardiovascular: RRR Abdomen: soft, non tender Extremities: no edema, other - left Justo Sinclair MD Feb 04, 2019 12:16
--- NOTE | 2019-02-04 14:11 | NUR ---
NURSE NOTES: Pt clean and dry. To be transfer to Telemetry room 206 bed 2.
--- NOTE | 2019-02-04 14:50 | NUR ---
HAND-OFF: Report given to Report given to GUZMAN Paredes.
--- NOTE | 2019-02-04 16:42 | Neurology Progress Note ---
Interim History Interim History Interim History Ms. Cole feels well. She was transferred out of the ICU. She is awake and responsive. Her voice has normalized. She is able to communicate better. She feels generally stronger. She is breathing comfortably. She has been seizure-free. She continues to be cognitively impoverished. Review of Systems Neuro Review of Systems Benign. Objective Physical Exam Last Vital Signs Date Time Temp Pulse Resp B/P (MAP) Pulse Ox O2 Delivery O2 Flow Rate FiO2 02/04/19 16:35 Nasal Cannula 2.0 Nasal Cannula 2.0 02/04/19 14:26 159/86 02/04/19 14:00 84 22 98 02/04/19 12:00 98.2 02/03/19 19:15 28 Laboratory Tests Test 02/04/19 04:30 White Blood Count 12.6 K/UL (4.8-10.8) H Red Blood Count 3.66 M/UL (4.20-5.40) L Hemoglobin 11.9 G/DL (12.0-16.0) L Hematocrit 35.1 % (37.0-47.0) L Mean Corpuscular Volume 96 FL (80-99) Mean Corpuscular Hemoglobin 32.5 PG (27.0-31.0) H Mean Corpuscular Hemoglobin Concent 33.9 G/DL (32.0-36.0) Red Cell Distribution Width 12.4 % (11.6-14.8) Platelet Count 281 K/UL (150-450) Mean Platelet Volume 6.8 FL (6.5-10.1) Neutrophils (%) (Auto) 62.2 % (45.0-75.0) Lymphocytes (%) (Auto) 19.3 % (20.0-45.0) L Monocytes (%) (Auto) 12.8 % (1.0-10.0) H Eosinophils (%) (Auto) 4.9 % (0.0-3.0) H Basophils (%) (Auto) 0.8 % (0.0-2.0) Sodium Level 143 MMOL/L (136-145) Potassium Level 3.3 MMOL/L (3.5-5.1) L Chloride Level 105 MMOL/L (98-107) Carbon Dioxide Level 28 MMOL/L (21-32) Anion Gap 10 mmol/L (5-15) Blood Urea Nitrogen 39 mg/dL (7-18) H Creatinine 2.0 MG/DL (0.55-1.30) H Estimat Glomerular Filtration Rate 25.7 mL/min (>60) Glucose Level 98 MG/DL (74-106) Calcium Level 10.4 MG/DL (8.5-10.1) H Phosphorus Level 3.5 MG/DL (2.5-4.9) Magnesium Level 1.5 MG/DL (1.8-2.4) L Total Bilirubin 0.5 MG/DL (0.2-1.0) Aspartate Amino Transf (AST/SGOT) 26 U/L (15-37) Alanine Aminotransferase (ALT/SGPT) 24 U/L (12-78) Alkaline Phosphatase 70 U/L (46-116) Total Protein 8.2 G/DL (6.4-8.2) Albumin 3.3 G/DL (3.4-5.0) L Globulin 4.9 g/dL Albumin/Globulin Ratio 0.7 (1.0-2.7) L Neurologic Exam Objective PHYSICAL EXAMINATION: GENERAL: She is a well-developed, well-nourished, obese lady, lying in bed, in no acute distress. HEAD: Normocephalic and atraumatic. EENT: Benign. NECK: No neck rigidity was observed. NEUROLOGICAL EXAMINATION: MENTAL STATUS EXAMINATION: She was awake and alert. She was oriented to self, hospital and January only. She did not know the name of the hospital date or year. She was able to recall 3/3 words immediately but could only remember 1/3 in 1 minute and 3 minutes. She knew that Christopher was president but could not remember presidents prior to that. Her mathematical skills were impaired. Her visuospatial function was also impaired. SPEECH: She had no dysarthria or hoarseness of voice. LANGUAGE: She was able to comprehend and express himself relatively well. CRANIAL NERVE EXAMINATION: II: She was able to count fingers accurately. III, IV, : External ocular movements were full. The pupils were 3 mm in diameter and reactive sluggishly to light. V: She had normal facial sensations, and the temporalis masseters and pterygoids functions normally. VII: She had normal facial expressions and no facial asymmetry. VIII: She was able to hear well and had no nystagmus. IX: Her palate moved symmetrically on phonation. X: Her voice was hoarse. XI: The sternocleidomastoids and trapezii functioned well XII: The tongue was in the midline. MOTOR SYSTEM: The tone was normal in all four extremities. Examination of muscle mass revealed no focal wasting. She did have left below-knee amputation. She moved all 4 extremities on command. The strength was relatively good in her upper extremities but diminished in the lower extremities. Her effort was poor. SENSORY EXAMINATION: Light touch was symmetrical bilaterally. REFLEXES: 0 at the biceps, triceps, brachioradialis, and knees, 0 at the right ankle. The plantar response was flexor on the right side. COORDINATION, STANCE & GAIT: Could not be tested. Impression/Recommendations Diagnostic Impression 1. Ms. Bridget Cole is a 58-year-old, right-handed, lady, with a past history of a psychiatric illness, a seizure disorder, left below-knee amputation , and general debility as a result of which she lives in a detention, who on 01/29/2019 was noted to have an altered mental state related to hypoxia associated with a pneumonia, urinary tract infection, and sepsis. Since then, she has been hospitalized and has been treated for these problems. 2. She feels well. She was transferred out of the ICU. She is awake and responsive. Her voice has normalized. She is able to communicate better. She feels generally stronger. She is breathing comfortably. She has been seizure- free. She continues to be cognitively impoverished. 3. With regards to her seizure disorder she says that she has had seizures for numerous years. When she has 1 of her seizures she passes out and can pass out for an entire week. She denies any abnormal movements, auras, or postictal neurological dysfunction. She is unable to tell me what medicines she takes for her seizures. She cannot tell me what the frequency of her seizures is. 4. On neurological examination, at this time, she is awake and alert. She is oriented to self, hospital and January only. She is able to recall 3/3 words immediately but can only remember 1/3 in 1 minute and 3 minutes. She knows that Christopher is president but cannot remember prior presidents. Her mathematical skills and visuospatial function are impaired. Her voice has normalized. She is able to comprehend and express herself relatively well. She does not demonstrate any focal findings on her cranial nerve, motor, or sensory examination. However her lower extremities are weaker than the upper extremities. Her deep tendon reflexes are absent but her plantar response is flexor on the right side. 5. Her latest laboratory data on my initial evaluation revealed that she still has a leukocytosis with WBC count of 12,000. She is anemic with a hemoglobin of 11.2 G. Her chemistry panel reveals a BUN elevated at 60, a creatinine elevated at 5.0, glucose elevated at 123. Her B12 level is normal at 443. Her folate is normal at 17.9. Her TSH is normal at 0.548. Her proBNP is elevated at 1450. Her latest blood gas performed on 01/29/2019 at 2100 hours reveals a pH of 7.42, pCO2 of 36, and a pO2 of 74. The Urinalysis revealed 3+leukocyte esterase, 15-20 red blood cells and white blood cells per high-power field. 6. CT scan of the brain performed on 01/29/2019 revealed atrophy and deep white matter changes. 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 7. 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 No interictal discharges were seen. 8. The patient's history, neurological examination, laboratory data, and imaging studies are most consistent with a significant toxic metabolic encephalopathy related to sepsis associated with a urinary tract infection, pneumonia, associated hypoxia, and sedation with Versed. Her encephalopathy continues to improve but has not resolved. 9. It is still unclear as to what type of seizure disorder the patient has. The description that she gave does not fit any specific seizure entity. Recommendations 1. Continue present management. 2. Continue aggressive treatment of infectious processes. 3. Continue aggressive treatment of respiratory dysfunction. 4. A repeat EEG will be ordered to evaluate the patient for type of seizure disorder. 5. Observe closely. Errol Quesada M.D., M.S.P.H. Errol Quesada MD Feb 04, 2019 16:42
--- NOTE | 2019-02-04 18:58 | NUR ---
HAND-OFF: Report given to [place]. Addendum: 02/04/19 at 1939 by ARGENIS KEEN RN HAND-OFF: Report given to Agustin JOSHI.
--- NOTE | 2019-02-04 19:24 | Pulmonolgy Critical Care Note ---
Critical Care - Asmt/Plan Assessment/Plan: Pulmonary Critical Care Progress Noted HPI The patient is a 58 year old woman admitted with worsening shortness of breath, respiratory failure requiring intubation, pneumonia. Noted to have evidence of UTI in addition to pneumonia LLL Per chart review h/o Seizure disorder, Left Kidney Mass, Hydronephrosis, Hypertension, HHD Past Medical History: ESBL UTI from [facility] Leukocytosis likely related to infection Left kidney mass Left hydronephrosis Anxiety Dehydration Seizure disorder on Clonazepam and Gabapentin Weakness Schizophrenia Hypertension Obesity PSH: Left BKA Allergies: Grits (Unverified Allergy, Unknown, 07/06/17) [place] (Unverified Allergy, Unknown, 07/06/17) stable overnight, on NC O2 SP Ureteric stent Physical Exam Vital Signs Noted General Appearance: Awake Head: normocephalic, atraumatic, ENT: moist mucus membranes Neck: No LN Respiratory: CTAB Cardiovascular: regular rate, rhythm, HS1, HS2, no edema Gastrointestinal: decreased bowel sounds, overweight, abrasions abdominal wall Musculoskeletal: moving all limbs, BKA L Neurologic: Awake, interactive, no focal signs Skin: warm/dry, Impression: Previous Ventilator Dependent Respiratory failure now extubated Left lower lobe pulmonary infiltrate Urinary tract infection ESBL UTI from [facility] Acute on Chronic Renal Failure Left kidney mass Left hydronephrosis Anxiety Dehydration Seizure disorder on Clonazepam and Gabapentin Weakness Schizophrenia Hypertension Obesity Plan O2 PRN Antibiotics per ID Aspiration/Seizure precautions 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 EKG: Rate: normal Rhythm: NSR ST Segments: no acute changes Chest X-Ray: left effusion, no pneumothorax, possible L sided infiltrate Critical Care - Objective Last 24 Hour Vital Signs Date Time Temp Pulse Resp B/P (MAP) Pulse Ox O2 Delivery O2 Flow Rate FiO2 02/04/19 16:35 Nasal Cannula 2.0 Nasal Cannula 2.0 02/04/19 16:00 98.6 113 20 153/97 93 Nasal Cannula 2.0 02/04/19 15:36 83 02/04/19 14:26 159/86 02/04/19 14:00 84 22 159/86 98 Nasal Cannula 2.0 02/04/19 13:00 86 20 98 Nasal Cannula 2.0 02/04/19 12:00 98.2 79 21 163/101 97 Nasal Cannula 2.0 02/04/19 12:00 Nasal Cannula 2.0 Nasal Cannula 2.0 02/04/19 12:00 79 02/04/19 11:00 81 21 162/97 97 Nasal Cannula 2.0 02/04/19 10:57 84 177/90 02/04/19 10:00 95 23 177/120 98 Nasal Cannula 2.0 02/04/19 10:00 104 21 177/90 98 Nasal Cannula 2.0 02/04/19 09:00 95 23 177/120 98 Nasal Cannula 2.0 02/04/19 08:35 88 174/103 02/04/19 08:00 98.5 87 22 174/103 98 Nasal Cannula 2.0 02/04/19 08:00 79 02/04/19 08:00 Nasal Cannula 2.0 Nasal Cannula 2.0 02/04/19 07:00 100 20 02/04/19 06:00 81 19 157/84 95 Nasal Cannula 2.0 02/04/19 06:00 81 19 157/84 83 02/04/19 05:44 169/84 02/04/19 05:28 82 19 169/84 100 02/04/19 05:11 81 20 185/87 99 02/04/19 05:02 92 26 176/98 82 02/04/19 05:00 88 25 98 Nasal Cannula 2.0 02/04/19 05:00 88 25 02/04/19 04:00 98.0 76 22 164/93 Nasal Cannula 2.0 02/04/19 04:00 78 02/04/19 04:00 Nasal Cannula 2.0 Nasal Cannula 2.0 02/04/19 04:00 76 22 164/93 02/04/19 03:00 71 19 149/76 100 02/04/19 03:00 71 19 149/76 100 Nasal Cannula 2.0 02/04/19 02:00 76 17 137/91 94 Nasal Cannula 2.0 02/04/19 02:00 76 17 137/91 02/04/19 02:00 76 17 137/91 02/04/19 01:00 81 20 137/87 86 02/04/19 01:00 81 20 137/87 95 Nasal Cannula 2.0 02/04/19 00:00 Nasal Cannula 2.0 Nasal Cannula 2.0 02/04/19 00:00 86 17 145/80 91 02/04/19 00:00 98.6 86 17 145/80 91 Nasal Cannula 2.0 02/04/19 00:00 84 02/03/19 23:00 87 19 148/82 94 Nasal Cannula 2.0 02/03/19 22:08 155/144 02/03/19 22:00 89 22 155/114 94 Nasal Cannula 02/03/19 21:00 88 19 164/96 97 Nasal Cannula 02/03/19 20:51 99 155/85 02/03/19 20:19 91 23 155/85 97 Nasal Cannula 02/03/19 20:00 82 02/03/19 20:00 98.5 90 22 171/123 98 Nasal Cannula 02/03/19 20:00 Nasal Cannula 2.0 Nasal Cannula 2.0 Accucheck: 83 Critical Care - Subjective ROS Limited/Unobtainable: No FI02: 28 Vent Support Breath Rate: 16 Vent Support Mode: AC Vent Tidal Volume: 550 Sputum Amount: None PEEP: 5.0 PIP: 25 Tube Feeding Amount: 30 I&O: Intake and Output 02/03/19 02/04/19 19:00 07:00 Intake Total 1245 ml 1115 ml Output Total 1900 ml 2150 ml Balance -655 ml -1035 ml Intake Oral 420 ml 160 ml IV Total 825 ml 955 ml Output Urine Total 1900 ml 2150 ml ET-Tube: 7.5 ET Position: 23 Gabino Smith MD Feb 04, 2019 19:24
[2019-02-04] MEDS ORDERED: Carvedilol 25mg Tab ORAL SCH (21:00)
[2019-02-04] MEDS: Dyna-Hex 2% Top Sol 2oz TOPIC SCH (21:23)
[2019-02-04] MEDS: Carvedilol 25mg Tab ORAL SCH (21:24)
[2019-02-04] MEDS ORDERED: Midazolam 5mg/5ml 50 MG in D5W 50 ML IV PRN (21:30)
--- NOTE | 2019-02-04 22:26 | General Progress Note ---
Assessment/Plan Problem List: (1) Acute renal failure ICD Codes: N17.9 - Acute kidney failure, unspecified SNOMED: 06250197 Qualifiers: Qualified Codes: N17.9 - Acute kidney failure, unspecified (2) Respiratory failure ICD Codes: J96.90 - Respiratory failure, unspecified, unspecified whether with hypoxia or hypercapnia SNOMED: 996362176 Qualifiers: Qualified Codes: J96.01 - Acute respiratory failure with hypoxia; J96.02 - Acute respiratory failure with hypercapnia (3) UTI (urinary tract infection) ICD Codes: N39.0 - Urinary tract infection, site not specified SNOMED: 77241516 Qualifiers: Qualified Codes: N39.0 - Urinary tract infection, site not specified (4) Schizophrenia ICD Codes: F20.9 - Schizophrenia, unspecified SNOMED: 30056768 (5) HTN (hypertension) ICD Codes: I10 - Essential (primary) hypertension SNOMED: 42013165 (6) Leukocytosis ICD Codes: D72.829 - Elevated white blood cell count, unspecified SNOMED: 058356296, 200137026 Status: progressing Assessment/Plan: psychosis check lytes check labs improving uti respiratory insuff no wheezing abx per id Subjective ROS Limited/Unobtainable: Yes Allergies: Coded Allergies: Grits (Unverified Allergy, Unknown, 07/06/17) [place] (Unverified Allergy, Unknown, 07/06/17) Objective Last 24 Hour Vital Signs Date Time Temp Pulse Resp B/P (MAP) Pulse Ox O2 Delivery O2 Flow Rate FiO2 02/04/19 21:24 158/99 02/04/19 21:24 70 158/99 02/04/19 20:00 71 02/04/19 20:00 98.5 70 20 158/99 95 Nasal Cannula 2.0 02/04/19 16:35 Nasal Cannula 2.0 Nasal Cannula 2.0 02/04/19 16:00 98.6 113 20 153/97 93 Nasal Cannula 2.0 02/04/19 15:36 83 02/04/19 14:26 159/86 02/04/19 14:00 84 22 159/86 98 Nasal Cannula 2.0 02/04/19 13:00 86 20 98 Nasal Cannula 2.0 02/04/19 12:00 98.2 79 21 163/101 97 Nasal Cannula 2.0 02/04/19 12:00 Nasal Cannula 2.0 Nasal Cannula 2.0 02/04/19 12:00 79 02/04/19 11:00 81 21 162/97 97 Nasal Cannula 2.0 02/04/19 10:57 84 177/90 02/04/19 10:00 95 23 177/120 98 Nasal Cannula 2.0 02/04/19 10:00 104 21 177/90 98 Nasal Cannula 2.0 02/04/19 09:00 95 23 177/120 98 Nasal Cannula 2.0 02/04/19 08:35 88 174/103 02/04/19 08:00 98.5 87 22 174/103 98 Nasal Cannula 2.0 02/04/19 08:00 79 02/04/19 08:00 Nasal Cannula 2.0 Nasal Cannula 2.0 02/04/19 07:00 100 20 02/04/19 06:00 81 19 157/84 95 Nasal Cannula 2.0 02/04/19 06:00 81 19 157/84 83 02/04/19 05:44 169/84 02/04/19 05:28 82 19 169/84 100 02/04/19 05:11 81 20 185/87 99 02/04/19 05:02 92 26 176/98 82 02/04/19 05:00 88 25 98 Nasal Cannula 2.0 02/04/19 05:00 88 25 02/04/19 04:00 98.0 76 22 164/93 Nasal Cannula 2.0 02/04/19 04:00 78 02/04/19 04:00 Nasal Cannula 2.0 Nasal Cannula 2.0 02/04/19 04:00 76 22 164/93 02/04/19 03:00 71 19 149/76 100 02/04/19 03:00 71 19 149/76 100 Nasal Cannula 2.0 02/04/19 02:00 76 17 137/91 94 Nasal Cannula 2.0 02/04/19 02:00 76 17 137/91 02/04/19 02:00 76 17 137/91 02/04/19 01:00 81 20 137/87 86 02/04/19 01:00 81 20 137/87 95 Nasal Cannula 2.0 02/04/19 00:00 Nasal Cannula 2.0 Nasal Cannula 2.0 02/04/19 00:00 86 17 145/80 91 02/04/19 00:00 98.6 86 17 145/80 91 Nasal Cannula 2.0 02/04/19 00:00 84 02/03/19 23:00 87 19 148/82 94 Nasal Cannula 2.0 Intake and Output 02/03/19 02/04/19 19:00 07:00 Intake Total 1245 ml 1115 ml Output Total 1900 ml 2150 ml Balance -655 ml -1035 ml Intake Oral 420 ml 160 ml IV Total 825 ml 955 ml Output Urine Total 1900 ml 2150 ml Laboratory Tests 02/04/19 04:30: White Blood Count 12.6H, Red Blood Count 3.66L, Hemoglobin 11.9L, Hematocrit 35.1L, Mean Corpuscular Volume 96, Mean Corpuscular Hemoglobin 32.5H, Mean Corpuscular Hemoglobin Concent 33.9, Red Cell Distribution Width 12.4, Platelet Count 281, Mean Platelet Volume 6.8, Neutrophils (%) (Auto) 62.2, Lymphocytes (% ) (Auto) 19.3L, Monocytes (%) (Auto) 12.8H, Eosinophils (%) (Auto) 4.9H, Basophils (%) (Auto) 0.8, Sodium Level 143, Potassium Level 3.3L, Chloride Level 105, Carbon Dioxide Level 28, Anion Gap 10, Blood Urea Nitrogen 39H, Creatinine 2.0H, Estimat Glomerular Filtration Rate 25.7, Glucose Level 98, Calcium Level 10.4H, Phosphorus Level 3.5, Magnesium Level 1.5L, Total Bilirubin 0.5, Aspartate Amino Transf (AST/SGOT) 26, Alanine Aminotransferase ( ALT/SGPT) 24, Alkaline Phosphatase 70, Total Protein 8.2, Albumin 3.3L, Globulin 4.9, Albumin/Globulin Ratio 0.7L Height (Feet): 5 Height (Inches): 4.00 Weight (Pounds): 200 Cardiovascular: normal rate Respiratory/Chest: lungs clear Abdomen: soft Isela Rubio MD Feb 04, 2019 22:26
[2019-02-04] MEDS ORDERED: NS 275ml ONE (22:50)
[2019-02-04] MEDS ORDERED: D5 1/2NS 1000ml IV ONE (22:50)
--- NOTE | 2019-02-04 23:00 | NUR ---
NURSE NOTES: Received patient from Agustin HINDS. Patient in bed, awake, alert but oriented to self. Rod catheter intact, patent, hematuria. PICC on [place], dresssing intact, last changed 02/04/19. D51/2 NS infusing at 75ml/hr. Patient on 2L NC, no signs of respiratory distress. Bed in low position, locked, bed alarm on, call light within reach.
[2019-02-04] MEDS: Hydromorphone 0.5mg/0.5ml inj IVP PRN (23:49)
[2019-02-05] VITALS (7 sets, daily range): BP systolic 120–154; BP diastolic 61–101
[2019-02-05] MEDS: HydrALAZINE 25mg tab ORAL SCH ×3 (05:01→22:15)
[2019-02-05 05:17] LABS: BASOPHILS % (AUTO) 0.8 % (0.0-2.0); EOSINOPHILS % (AUTO) 4.1 % (0.0-3.0); HEMATOCRIT 35.9 % (37.0-47.0); HEMOGLOBIN 12.1 G/DL (12.0-16.0); LYMPHOCYTES % (AUTO) 18.8 % (20.0-45.0); MEAN CORPUSCULAR VOLUME 95 FL (80-99); MONOCYTES % (AUTO) 10.2 % (1.0-10.0); NEUTROPHILS % (AUTO) 66.1 % (45.0-75.0); PLATELET COUNT 295 K/UL (150-450); RED BLOOD COUNT 3.77 M/UL (4.20-5.40); WHITE BLOOD COUNT 12.8 K/UL (4.8-10.8)
[2019-02-05 05:42] LABS: ALANINE AMINOTRANSFERASE 23 U/L (12-78); ALBUMIN 3.3 G/DL (3.4-5.0); ALBUMIN/GLOBULIN RATIO 0.7 (1.0-2.7); ALKALINE PHOSPHATASE 74 U/L (46-116); ANION GAP 7 mmol/L (5-15); ASPARTATE AMINO TRANSFERASE 20 U/L (15-37); BILIRUBIN,TOTAL 0.5 MG/DL (0.2-1.0); BLOOD UREA NITROGEN 38 mg/dL (7-18); CALCIUM 9.8 MG/DL (8.5-10.1); CARBON DIOXIDE 30 MMOL/L (21-32); CHLORIDE 104 MMOL/L (98-107); CREATININE 1.8 MG/DL (0.55-1.30); PHOSPHORUS 3.9 MG/DL (2.5-4.9); POTASSIUM 4.6 MMOL/L (3.5-5.1); SODIUM 140 MMOL/L (136-145)
[2019-02-05] MEDS: Hydromorphone 0.5mg/0.5ml inj IVP PRN ×2 (06:49→17:03)
--- NOTE | 2019-02-05 07:06 | NUR ---
NURSE NOTES: Patient awake in bed, AM labs drawn. Bed in low position, locked, bed alarm on, call light within reach. No acute changes in condition.
--- NOTE | 2019-02-05 07:51 | NUR ---
NURSE NOTES: Patient received from Srinath Arceo. Pt awake AOx2 with no complaints of pain and no s/sx of distress. RR even and unlabored on 2L NC. PICC line dressing dry and intact. Rod draining well to gravity. Bed low and locked. Call light within reach . Will continue to monitor.
[2019-02-05] MEDS: Carvedilol 25mg Tab ORAL SCH ×2 (08:36→20:53)
[2019-02-05] MEDS: Heparin 5000 units/ml inj SUBQ SCH ×2 (08:38→20:53)
[2019-02-05] MEDS ORDERED: Docusate 250mg cap ORAL SCH (09:00)
--- NOTE | 2019-02-05 09:20 | Nephrology Progress Note ---
Assessment/Plan Problem List: (1) Acute renal failure Assessment: Cr lowering (2) Respiratory failure (3) HTN (hypertension) (4) Schizophrenia (5) Hydronephrosis Assessment Acute on Chronic Renal Failure- Cr lowering ? kidney mass Right hydronephrosis Ventilator Dependent Respiratory failure Left lower lobe pulmonary infiltrate Urinary tract infection ESBL UTI from [facility] Dehydration Seizure disorder on Clonazepam and Gabapentin Schizophrenia Hypertension Obesity Plan Adjust BP meds adjust electrolytes patient had right kidney stent Off Lasix adjust all mind altering meds avoid nephrotoxics monitor renal parametes per orders Subjective ROS Limited/Unobtainable: No Constitutional: Reports: malaise Objective Objective Last 24 Hour Vital Signs Date Time Temp Pulse Resp B/P (MAP) Pulse Ox O2 Delivery O2 Flow Rate FiO2 02/05/19 08:36 60 147/85 02/05/19 08:02 99 Nasal Cannula 2.0 28 02/05/19 08:00 97.2 60 18 147/85 94 Nasal Cannula 2.0 02/05/19 05:01 134/79 02/05/19 04:00 98.0 66 17 134/79 95 Nasal Cannula 2.0 02/05/19 04:00 68 02/05/19 00:00 98.2 69 20 141/94 95 Nasal Cannula 2.0 02/05/19 00:00 68 02/04/19 21:24 158/99 02/04/19 21:24 70 158/99 02/04/19 20:00 95 Nasal Cannula 2.0 28 02/04/19 20:00 71 02/04/19 20:00 98.5 70 20 158/99 95 Nasal Cannula 2.0 02/04/19 16:35 Nasal Cannula 2.0 Nasal Cannula 2.0 02/04/19 16:00 98.6 113 20 153/97 93 Nasal Cannula 2.0 02/04/19 15:36 83 02/04/19 14:26 159/86 02/04/19 14:00 84 22 159/86 98 Nasal Cannula 2.0 02/04/19 13:00 86 20 98 Nasal Cannula 2.0 02/04/19 12:00 98.2 79 21 163/101 97 Nasal Cannula 2.0 02/04/19 12:00 Nasal Cannula 2.0 Nasal Cannula 2.0 02/04/19 12:00 79 02/04/19 11:00 81 21 162/97 97 Nasal Cannula 2.0 02/04/19 10:57 84 177/90 02/04/19 10:00 95 23 177/120 98 Nasal Cannula 2.0 02/04/19 10:00 104 21 177/90 98 Nasal Cannula 2.0 Intake and Output 02/04/19 02/05/19 19:00 07:00 Intake Total 1432.00 ml 570 ml Output Total 1680 ml Balance -248.00 ml 570 ml Intake Oral 357 ml 120 ml IV Total 1075.00 ml 450 ml Output Urine Total 1680 ml # Bowel Movements 1 Laboratory Tests 02/05/19 05:05: White Blood Count 12.8H, Red Blood Count 3.77L, Hemoglobin 12.1, Hematocrit 35.9L, Mean Corpuscular Volume 95, Mean Corpuscular Hemoglobin 32.1H, Mean Corpuscular Hemoglobin Concent 33.7, Red Cell Distribution Width 12.0, Platelet Count 295, Mean Platelet Volume 7.0, Neutrophils (%) (Auto) 66.1, Lymphocytes (% ) (Auto) 18.8L, Monocytes (%) (Auto) 10.2H, Eosinophils (%) (Auto) 4.1H, Basophils (%) (Auto) 0.8, Sodium Level 140, Potassium Level 4.6, Chloride Level 104, Carbon Dioxide Level 30, Anion Gap 7, Blood Urea Nitrogen 38H, Creatinine 1.8H, Estimat Glomerular Filtration Rate 29.0, Glucose Level 111H, Calcium Level 9.8, Phosphorus Level 3.9, Magnesium Level 2.5H, Total Bilirubin 0.5, Aspartate Amino Transf (AST/SGOT) 20, Alanine Aminotransferase (ALT/SGPT) 23, Alkaline Phosphatase 74, C-Reactive Protein, Quantitative 5.6H, Pro-B-Type Natriuretic Peptide 692H, Total Protein 8.3H, Albumin 3.3L, Globulin 5.0, Albumin/Globulin Ratio 0.7L Height (Feet): 5 Height (Inches): 4.00 Weight (Pounds): 197 General Appearance: no apparent distress Cardiovascular: normal rate Respiratory/Chest: decreased breath sounds Abdomen: soft Derrell Hatch MD Feb 05, 2019 09:20
--- NOTE | 2019-02-05 13:51 | Neurology Progress Note ---
Interim History Interim History Interim History Ms. Cole will not tell me how she feels. She is psychotic today. She was responding to visual hallucinations. She was dismantling nasal cannula and tearing it apart. She refused to cooperate for a neurological examination. She has been seizure-free. Review of Systems Neuro Review of Systems Unable to obtain. Objective Physical Exam Last Vital Signs Date Time Temp Pulse Resp B/P (MAP) Pulse Ox O2 Delivery O2 Flow Rate FiO2 02/05/19 13:06 131/61 02/05/19 12:00 97.7 64 18 95 Nasal Cannula 2.0 02/05/19 08:02 28 Laboratory Tests Test 02/05/19 05:05 White Blood Count 12.8 K/UL (4.8-10.8) H Red Blood Count 3.77 M/UL (4.20-5.40) L Hemoglobin 12.1 G/DL (12.0-16.0) Hematocrit 35.9 % (37.0-47.0) L Mean Corpuscular Volume 95 FL (80-99) Mean Corpuscular Hemoglobin 32.1 PG (27.0-31.0) H Mean Corpuscular Hemoglobin Concent 33.7 G/DL (32.0-36.0) Red Cell Distribution Width 12.0 % (11.6-14.8) Platelet Count 295 K/UL (150-450) Mean Platelet Volume 7.0 FL (6.5-10.1) Neutrophils (%) (Auto) 66.1 % (45.0-75.0) Lymphocytes (%) (Auto) 18.8 % (20.0-45.0) L Monocytes (%) (Auto) 10.2 % (1.0-10.0) H Eosinophils (%) (Auto) 4.1 % (0.0-3.0) H Basophils (%) (Auto) 0.8 % (0.0-2.0) Sodium Level 140 MMOL/L (136-145) Potassium Level 4.6 MMOL/L (3.5-5.1) Chloride Level 104 MMOL/L (98-107) Carbon Dioxide Level 30 MMOL/L (21-32) Anion Gap 7 mmol/L (5-15) Blood Urea Nitrogen 38 mg/dL (7-18) H Creatinine 1.8 MG/DL (0.55-1.30) H Estimat Glomerular Filtration Rate 29.0 mL/min (>60) Glucose Level 111 MG/DL (74-106) H Calcium Level 9.8 MG/DL (8.5-10.1) Phosphorus Level 3.9 MG/DL (2.5-4.9) Magnesium Level 2.5 MG/DL (1.8-2.4) H Total Bilirubin 0.5 MG/DL (0.2-1.0) Aspartate Amino Transf (AST/SGOT) 20 U/L (15-37) Alanine Aminotransferase (ALT/SGPT) 23 U/L (12-78) Alkaline Phosphatase 74 U/L (46-116) C-Reactive Protein, Quantitative 5.6 mg/dL (0.00-0.90) H Pro-B-Type Natriuretic Peptide 692 pg/mL (0-125) H Total Protein 8.3 G/DL (6.4-8.2) H Albumin 3.3 G/DL (3.4-5.0) L Globulin 5.0 g/dL Albumin/Globulin Ratio 0.7 (1.0-2.7) L Neurologic Exam Objective PHYSICAL EXAMINATION: GENERAL: She is a well-developed, well-nourished, obese lady, lying in bed, responding to internal stimuli. HEAD: Normocephalic and atraumatic. EENT: Benign. NECK: No neck rigidity was observed. NEUROLOGICAL EXAMINATION: MENTAL STATUS EXAMINATION: She was awake and alert. She was oriented to self only. She refused to cooperate for further mental status testing. SPEECH: She had no dysarthria. LANGUAGE: Could not be tested adequately. CRANIAL NERVE EXAMINATION: II: She was able to count fingers accurately. III, IV, : External ocular movements were full. The pupils were 3 mm in diameter and reactive sluggishly to light. V: She had normal facial sensations, and the temporalis masseters and pterygoids functions normally. VII: She had normal facial expressions and no facial asymmetry. VIII: She was able to hear well and had no nystagmus. IX: Her palate moved symmetrically on phonation. X: Her voice was hoarse. XI: The sternocleidomastoids and trapezii functioned well XII: The tongue was in the midline. MOTOR SYSTEM: The tone was normal in all four extremities. Examination of muscle mass revealed no focal wasting. She did have left below-knee amputation. She moved all 4 extremities on command. The strength was relatively good in her upper extremities but diminished in the lower extremities. Her effort was poor. SENSORY EXAMINATION: Light touch was symmetrical bilaterally. REFLEXES: 0 at the biceps, triceps, brachioradialis, and knees, 0 at the right ankle. The plantar response was flexor on the right side. COORDINATION, STANCE & GAIT: Could not be tested. Impression/Recommendations Diagnostic Impression 1. Ms. Bridget Cole is a 58-year-old, right-handed, lady, with a past history of a psychiatric illness, a seizure disorder, left below-knee amputation , and general debility as a result of which she lives in a group home, who on 01/29/2019 was noted to have an altered mental state related to hypoxia associated with a pneumonia, urinary tract infection, and sepsis. Since then, she has been hospitalized and has been treated for these problems. 2. She will not tell me how she feels. She is psychotic today. She was responding to visual hallucinations. She was dismantling nasal cannula and tearing it apart. She refused to cooperate for a neurological examination. She has been seizure- free. 3. With regards to her seizure disorder she has had seizures for numerous years. When she has one of her seizures she passes out and can pass out for an entire week. She denies any abnormal movements, auras, or postictal neurological dysfunction. She is unable to tell me what medicines she takes for her seizures. She cannot tell me what the frequency of her seizures is. 4. On neurological examination, at this time, she is awake and alert. She is oriented to self only and refuses to cooperate for further mental status testing. She has no dysarthria and refuses to cooperate for formal language testing. She does not demonstrate any focal findings on her cranial nerve, motor , or sensory examination. However her lower extremities are weaker than the upper extremities. Her deep tendon reflexes are absent but her plantar response is flexor on the right side. 5. Her latest laboratory data on my initial evaluation revealed that she still has a leukocytosis with WBC count of 12,000. She is anemic with a hemoglobin of 11.2 G. Her chemistry panel reveals a BUN elevated at 60, a creatinine elevated at 5.0, glucose elevated at 123. Her B12 level is normal at 443. Her folate is normal at 17.9. Her TSH is normal at 0.548. Her proBNP is elevated at 1450. Her latest blood gas performed on 01/29/2019 at 2100 hours reveals a pH of 7.42, pCO2 of 36, and a pO2 of 74. The Urinalysis revealed 3+leukocyte esterase, 15-20 red blood cells and white blood cells per high-power field. 6. CT scan of the brain performed on 01/29/2019 revealed atrophy and deep white matter changes. 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 7. 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 No interictal discharges were seen. 8. The patient's history, neurological examination, laboratory data, and imaging studies are most consistent with a significant toxic metabolic encephalopathy related to sepsis associated with a urinary tract infection, pneumonia, associated hypoxia, and sedation with Versed. Her encephalopathy has improved however she seems to be psychotic today. 9. It is still unclear as to what type of seizure disorder the patient has. The description that she gave does not fit any specific seizure entity. Recommendations 1. Continue present management. 2. Continue aggressive treatment of infectious processes. 3. Continue aggressive treatment of respiratory dysfunction. 4. To do psychiatric evaluation for psychosis. 5. Observe closely. Errol Quesada M.D., M.S.P.H. Errol Quesada MD Feb 05, 2019 13:51
--- NOTE | 2019-02-05 14:37 | NUR ---
NURSE NOTES: Patient refusing EEG and is non cooperative.
--- NOTE | 2019-02-05 14:46 | Cardiac Electrophysiology PN ---
Assessment/Plan Assessment/Plan 1. S/P Respiratory failure. Extubated. EF 60%. On meropenem 2. HTN Change Coreg to 25 bid and hydralazine to 25 bid 3. Acute renal failure. S/P stent by Dr Walker 4. S/P Left BKA 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 Subjective Transferred out of ICU alert in NAD. No CP or SOB Objective Last 24 Hour Vital Signs Date Time Temp Pulse Resp B/P (MAP) Pulse Ox O2 Delivery O2 Flow Rate FiO2 02/05/19 14:08 69 18 154/101 93 Room Air 02/05/19 13:06 131/61 02/05/19 12:00 97.7 64 18 131/61 95 Nasal Cannula 2.0 02/05/19 12:00 64 02/05/19 09:00 Nasal Cannula 2.0 Nasal Cannula 2.0 02/05/19 08:36 60 147/85 02/05/19 08:02 99 Nasal Cannula 2.0 28 02/05/19 08:00 97.2 60 18 147/85 94 Nasal Cannula 2.0 02/05/19 08:00 58 02/05/19 05:01 134/79 02/05/19 04:00 98.0 66 17 134/79 95 Nasal Cannula 2.0 02/05/19 04:00 68 02/05/19 00:00 98.2 69 20 141/94 95 Nasal Cannula 2.0 02/05/19 00:00 68 02/04/19 21:24 158/99 02/04/19 21:24 70 158/99 02/04/19 20:00 95 Nasal Cannula 2.0 28 02/04/19 20:00 71 02/04/19 20:00 98.5 70 20 158/99 95 Nasal Cannula 2.0 02/04/19 16:35 Nasal Cannula 2.0 Nasal Cannula 2.0 02/04/19 16:00 98.6 113 20 153/97 93 Nasal Cannula 2.0 02/04/19 15:36 83 Intake and Output 02/04/19 02/05/19 18:59 06:59 Intake Total 1432.00 ml 450 ml Output Total 1830 ml Balance -398.00 ml 450 ml Intake Oral 357 ml IV Total 1075.00 ml 450 ml Output Urine Total 1830 ml # Bowel Movements 1 Laboratory Tests Test 02/05/19 05:05 White Blood Count 12.8 K/UL (4.8-10.8) H Red Blood Count 3.77 M/UL (4.20-5.40) L Hemoglobin 12.1 G/DL (12.0-16.0) Hematocrit 35.9 % (37.0-47.0) L Mean Corpuscular Volume 95 FL (80-99) Mean Corpuscular Hemoglobin 32.1 PG (27.0-31.0) H Mean Corpuscular Hemoglobin Concent 33.7 G/DL (32.0-36.0) Red Cell Distribution Width 12.0 % (11.6-14.8) Platelet Count 295 K/UL (150-450) Mean Platelet Volume 7.0 FL (6.5-10.1) Neutrophils (%) (Auto) 66.1 % (45.0-75.0) Lymphocytes (%) (Auto) 18.8 % (20.0-45.0) L Monocytes (%) (Auto) 10.2 % (1.0-10.0) H Eosinophils (%) (Auto) 4.1 % (0.0-3.0) H Basophils (%) (Auto) 0.8 % (0.0-2.0) Sodium Level 140 MMOL/L (136-145) Potassium Level 4.6 MMOL/L (3.5-5.1) Chloride Level 104 MMOL/L (98-107) Carbon Dioxide Level 30 MMOL/L (21-32) Anion Gap 7 mmol/L (5-15) Blood Urea Nitrogen 38 mg/dL (7-18) H Creatinine 1.8 MG/DL (0.55-1.30) H Estimat Glomerular Filtration Rate 29.0 mL/min (>60) Glucose Level 111 MG/DL (74-106) H Calcium Level 9.8 MG/DL (8.5-10.1) Phosphorus Level 3.9 MG/DL (2.5-4.9) Magnesium Level 2.5 MG/DL (1.8-2.4) H Total Bilirubin 0.5 MG/DL (0.2-1.0) Aspartate Amino Transf (AST/SGOT) 20 U/L (15-37) Alanine Aminotransferase (ALT/SGPT) 23 U/L (12-78) Alkaline Phosphatase 74 U/L (46-116) C-Reactive Protein, Quantitative 5.6 mg/dL (0.00-0.90) H Pro-B-Type Natriuretic Peptide 692 pg/mL (0-125) H Total Protein 8.3 G/DL (6.4-8.2) H Albumin 3.3 G/DL (3.4-5.0) L Globulin 5.0 g/dL Albumin/Globulin Ratio 0.7 (1.0-2.7) L Objective General Appearance: No acute distress HEENT: No JVD. Respiratory/Chest: lungs clear Cardiovascular: RRR Abdomen: soft, non tender Extremities: no edema, other - left BELINDAA Justo Rosales MD Feb 05, 2019 14:46
--- NOTE | 2019-02-05 15:00 | NUR ---
NURSE NOTES: Bed alarm alarming. Patient was noted standing leaning on bed with foot on the ground. I was unable to help her up to the bed even with DOCUMENTATION CONSULTANT so patient was lowered to sitting position on floor. 3rd staff member assist patient onto bed. NC placed back on patient. Patient alert to name but is confused to other orientation. Call light within reach. DOCUMENTATION CONSULTANT now visually checking patient for safety.
--- NOTE | 2019-02-05 15:55 | NUR ---
HAND-OFF: Report given to Jh Davis RN. Patient stable. Now resting comfortably in bed not trying to get up.
[2019-02-05] MEDS: D5 1/2NS 1,000 ML IV SCH (16:56)
--- NOTE | 2019-02-05 17:34 | Pulmonolgy Critical Care Note ---
Critical Care - Asmt/Plan Assessment/Plan: Pulmonary Critical Care Progress Note HPI The patient is a 58 year old woman admitted with worsening shortness of breath, respiratory failure requiring intubation, pneumonia. Noted to have evidence of UTI in addition to pneumonia LLL Per chart review h/o Seizure disorder, Left Kidney Mass, Hydronephrosis, Hypertension, HHD Past Medical History: ESBL UTI from [facility] Leukocytosis likely related to infection Left kidney mass Left hydronephrosis Anxiety Dehydration Seizure disorder on Clonazepam and Gabapentin Weakness Schizophrenia Hypertension Obesity PSH: Left BKA Allergies: Grits (Unverified Allergy, Unknown, 07/06/17) [place] (Unverified Allergy, Unknown, 07/06/17) stable overnight, on NC O2 SP Ureteric stent Physical Exam Vital Signs Noted General Appearance: Awake Head: normocephalic, atraumatic, ENT: moist mucus membranes Neck: No LN Respiratory: CTAB Cardiovascular: regular rate, rhythm, HS1, HS2, no edema Gastrointestinal: decreased bowel sounds, overweight, abrasions abdominal wall Musculoskeletal: moving all limbs, BKA L Neurologic: Awake, interactive, no focal signs Skin: warm/dry, Impression: Previous Ventilator Dependent Respiratory failure now extubated Left lower lobe pulmonary infiltrate Urinary tract infection ESBL UTI from custodial Acute on Chronic Renal Failure Left kidney mass Left hydronephrosis Anxiety Dehydration Seizure disorder on Clonazepam and Gabapentin Weakness Schizophrenia Hypertension Obesity Plan O2 PRN Antibiotics per ID Aspiration/Seizure precautions HHN 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2 60 18 147/85 94 Nasal Cannula 2.0 02/05/19 08:00 58 02/05/19 05:01 134/79 02/05/19 04:00 98.0 66 17 134/79 95 Nasal Cannula 2.0 02/05/19 04:00 68 02/05/19 00:00 98.2 69 20 141/94 95 Nasal Cannula 2.0 02/05/19 00:00 68 02/04/19 21:24 158/99 02/04/19 21:24 70 158/99 02/04/19 20:00 95 Nasal Cannula 2.0 28 02/04/19 20:00 71 02/04/19 20:00 98.5 70 20 158/99 95 Nasal Cannula 2.0 Accucheck: 83 Critical Care - Subjective ROS Limited/Unobtainable: No FI02: 28 Vent Support Breath Rate: 16 Vent Support Mode: AC Vent Tidal Volume: 550 Sputum Amount: None PEEP: 5.0 PIP: 25 Tube Feeding Amount: 30 I&O: Intake and Output 02/04/19 02/05/19 18:59 06:59 Intake Total 1432.00 ml 450 ml Output Total 1830 ml Balance -398.00 ml 450 ml Intake Oral 357 ml IV Total 1075.00 ml 450 ml Output Urine Total 1830 ml # Bowel Movements 1 ET-Tube: 7.5 ET Position: 23 Gabino Smith MD Feb 05, 2019 17:34
--- NOTE | 2019-02-05 18:31 | NUR ---
NURSE NOTES: Received report from GUZMAN Cavazos. Patient moved closer to RN station for safety after patient was found at bedside and had to be lowered to floor (see previous RN note). Patient co pain--dilaudid per eMAR given with good effect. Patient is calm, but impulsive. Monitoring closely fort safety and providing emotional support and active listening. Bed alarm on . Rod draining cloudy apula urine --secured with new anchor to upper thigh.
--- NOTE | 2019-02-05 19:00 | NUR ---
NURSE NOTES: Report given to Kris Crowe. Patient currently calm, in bed with alarm on and vss. Addendum: 02/05/19 at 1915 by Manohar North RN Above note in error. Patient is currently calm, in bed with alarm on and breathing easily with stable VS and NSR on tele monitor. Report given to GUZMAN Yarbrough
--- NOTE | 2019-02-05 19:51 | NUR ---
NURSE NOTES: Received patient from GUZMAN Peñaloza. Patient awake, alert, and talkative, resting in bed comfortably. No signs of distress, shortness of breath, or pain noted. Patient able to make needs known. PICC line checked, intact and patent, no signs of redness, bleeding, or infiltration noted, D5 0.45% NS running at 75 mL/hr. Seizure precautions in place. Bed in lowest position, brakes on, side rails up x3, bed alarm on, and call light within reach. Will continue with plan of care.
--- NOTE | 2019-02-05 19:56 | General Progress Note ---
Assessment/Plan Problem List: (1) Acute renal failure ICD Codes: N17.9 - Acute kidney failure, unspecified SNOMED: 61735970 Qualifiers: Qualified Codes: N17.9 - Acute kidney failure, unspecified (2) Respiratory failure ICD Codes: J96.90 - Respiratory failure, unspecified, unspecified whether with hypoxia or hypercapnia SNOMED: 156817191 Qualifiers: Qualified Codes: J96.01 - Acute respiratory failure with hypoxia; J96.02 - Acute respiratory failure with hypercapnia (3) UTI (urinary tract infection) ICD Codes: N39.0 - Urinary tract infection, site not specified SNOMED: 47326511 Qualifiers: Qualified Codes: N39.0 - Urinary tract infection, site not specified (4) Schizophrenia ICD Codes: F20.9 - Schizophrenia, unspecified SNOMED: 48755299 (5) HTN (hypertension) ICD Codes: I10 - Essential (primary) hypertension SNOMED: 01462950 (6) Leukocytosis ICD Codes: D72.829 - Elevated white blood cell count, unspecified SNOMED: 893385346, 924122007 Status: progressing Assessment/Plan: no sob not hypoxic abx per id afebrile uti respiratory insuff Subjective ROS Limited/Unobtainable: Yes Allergies: Coded Allergies: Grits (Unverified Allergy, Unknown, 07/06/17) [place] (Unverified Allergy, Unknown, 07/06/17) Objective Last 24 Hour Vital Signs Date Time Temp Pulse Resp B/P (MAP) Pulse Ox O2 Delivery O2 Flow Rate FiO2 02/05/19 17:34 96.5 02/05/19 16:00 96.5 67 18 120/70 94 Nasal Cannula 2.0 02/05/19 16:00 64 02/05/19 14:08 69 18 154/101 93 Room Air 02/05/19 13:06 131/61 02/05/19 12:00 97.7 64 18 131/61 95 Nasal Cannula 2.0 02/05/19 12:00 64 02/05/19 09:00 Nasal Cannula 2.0 Nasal Cannula 2.0 02/05/19 08:36 60 147/85 02/05/19 08:02 99 Nasal Cannula 2.0 28 02/05/19 08:00 97.2 60 18 147/85 94 Nasal Cannula 2.0 02/05/19 08:00 58 02/05/19 05:01 134/79 02/05/19 04:00 98.0 66 17 134/79 95 Nasal Cannula 2.0 02/05/19 04:00 68 02/05/19 00:00 98.2 69 20 141/94 95 Nasal Cannula 2.0 02/05/19 00:00 68 02/04/19 21:24 158/99 02/04/19 21:24 70 158/99 02/04/19 20:00 95 Nasal Cannula 2.0 28 02/04/19 20:00 71 02/04/19 20:00 98.5 70 20 158/99 95 Nasal Cannula 2.0 Intake and Output 02/04/19 02/05/19 19:00 07:00 Intake Total 1432.00 ml 645 ml Output Total 1680 ml Balance -248.00 ml 645 ml Intake Oral 357 ml 120 ml IV Total 1075.00 ml 525 ml Output Urine Total 1680 ml # Bowel Movements 1 Laboratory Tests 02/05/19 05:05: White Blood Count 12.8H, Red Blood Count 3.77L, Hemoglobin 12.1, Hematocrit 35.9L, Mean Corpuscular Volume 95, Mean Corpuscular Hemoglobin 32.1H, Mean Corpuscular Hemoglobin Concent 33.7, Red Cell Distribution Width 12.0, Platelet Count 295, Mean Platelet Volume 7.0, Neutrophils (%) (Auto) 66.1, Lymphocytes (% ) (Auto) 18.8L, Monocytes (%) (Auto) 10.2H, Eosinophils (%) (Auto) 4.1H, Basophils (%) (Auto) 0.8, Sodium Level 140, Potassium Level 4.6, Chloride Level 104, Carbon Dioxide Level 30, Anion Gap 7, Blood Urea Nitrogen 38H, Creatinine 1.8H, Estimat Glomerular Filtration Rate 29.0, Glucose Level 111H, Calcium Level 9.8, Phosphorus Level 3.9, Magnesium Level 2.5H, Total Bilirubin 0.5, Aspartate Amino Transf (AST/SGOT) 20, Alanine Aminotransferase (ALT/SGPT) 23, Alkaline Phosphatase 74, C-Reactive Protein, Quantitative 5.6H, Pro-B-Type Natriuretic Peptide 692H, Total Protein 8.3H, Albumin 3.3L, Globulin 5.0, Albumin/Globulin Ratio 0.7L Height (Feet): 5 Height (Inches): 4.00 Weight (Pounds): 197 Isela Rubio MD Feb 05, 2019 19:56
[2019-02-05] MEDS: Dyna-Hex 2% Top Sol 2oz TOPIC SCH (20:52)
[2019-02-06] VITALS: BP 136/88
--- NOTE | 2019-02-06 | NUR ---
TRANSFER TO FLOOR: Patient transferred to [address] [place] [address]-surg, per Dr. Hatch. Report given to GUZMAN Davalos. Belongings list checked with RN and patient at bedside. Patient off of tele box, tolerated well. Plan of care endorsed. Patient tolerated transfer well.
--- NOTE | 2019-02-06 00:05 | NUR ---
NURSE NOTES: Patient transferred to med-surg from Telemetry. Patient is awake and alert x2. Currently on room air with no signs of respiratory distress. Belongings checked with patient. Patient insists on keeping her ID card in her gown. Rod in place and draining yellow urine. [place] PICC line intact and running D5 1/2NS @75 ml/hr. Side rails padded for seizure precautions. Skin intact. Bed locked and in lowest position with bed alarm activated. Call light in reach. Will continue to monitor.
[2019-02-06] MEDS: D5 1/2NS 1,000 ML IV SCH ×2 (00:30→07:36)
[2019-02-06] MEDS: Hydromorphone 0.5mg/0.5ml inj IVP PRN ×4 (00:58→14:01)
[2019-02-06 04:00] VITALS: BP 132/98
--- NOTE | 2019-02-06 04:03 | NUR ---
NURSE NOTES: Patient noted with light brown emesis with food. Patient reports no nausea at this time. gasateria attendant made aware. Left message with primary MD. Awaiting orders. Will continue to monitor the patient.
[2019-02-06] MEDS: HydrALAZINE 25mg tab ORAL SCH ×3 (05:53→21:11)
[2019-02-06 05:58] LABS: BASOPHILS % (AUTO) 0.9 % (0.0-2.0); EOSINOPHILS % (AUTO) 4.3 % (0.0-3.0); HEMATOCRIT 35.2 % (37.0-47.0); HEMOGLOBIN 11.8 G/DL (12.0-16.0); LYMPHOCYTES % (AUTO) 19.4 % (20.0-45.0); MEAN CORPUSCULAR VOLUME 95 FL (80-99); MONOCYTES % (AUTO) 9.7 % (1.0-10.0); NEUTROPHILS % (AUTO) 65.7 % (45.0-75.0); PLATELET COUNT 251 K/UL (150-450); RED BLOOD COUNT 3.69 M/UL (4.20-5.40); RED CELL DISTRIBUTION WIDTH 11.9 % (11.6-14.8); WHITE BLOOD COUNT 11.1 K/UL (4.8-10.8)
[2019-02-06 06:31] LABS: ALANINE AMINOTRANSFERASE 21 U/L (12-78); ALBUMIN 3.4 G/DL (3.4-5.0); ALBUMIN/GLOBULIN RATIO 0.7 (1.0-2.7); ALKALINE PHOSPHATASE 71 U/L (46-116); ANION GAP 8 mmol/L (5-15); ASPARTATE AMINO TRANSFERASE 16 U/L (15-37); BILIRUBIN,TOTAL 0.5 MG/DL (0.2-1.0); BLOOD UREA NITROGEN 38 mg/dL (7-18); CALCIUM 10.3 MG/DL (8.5-10.1); CARBON DIOXIDE 29 MMOL/L (21-32); CHLORIDE 101 MMOL/L (98-107); CREATININE 1.6 MG/DL (0.55-1.30); PHOSPHORUS 4.2 MG/DL (2.5-4.9); POTASSIUM 4.4 MMOL/L (3.5-5.1); SODIUM 138 MMOL/L (136-145)
--- NOTE | 2019-02-06 07:40 | NUR ---
HAND-OFF: Report given to Carisa Bergman RN.
--- NOTE | 2019-02-06 07:42 | NUR ---
NURSE NOTES: received patient in bed,awake, patient is alert and oriented x2. Not in respiratory/cardiac distress @ this time. Rod cath in place draining yellowish urine without sediments. PICC line intact on right upper with clean dressing.No s/s of infiltration. IVF running. Patient denies nausea or vomiting. abdomen is soft. Skin intact. No episodes of getting out of the bed, side rails padded for seizure precaution. Will continue plan of care.
[2019-02-06 08:00] VITALS: BP 139/93
[2019-02-06] MEDS: Docusate 250mg cap ORAL SCH (08:14)
[2019-02-06] MEDS: Carvedilol 25mg Tab ORAL SCH ×2 (08:23→21:11)
[2019-02-06] MEDS: Heparin 5000 units/ml inj SUBQ SCH ×2 (08:23→21:15)
--- NOTE | 2019-02-06 09:00 | NUR ---
NURSE NOTES: patient refused to take heparin. RN re-educated on medication.Patient fully understood about med but refused x3. denies chest pain or SOB.
--- NOTE | 2019-02-06 11:09 | General Progress Note ---
Assessment/Plan Problem List: (1) Acute renal failure ICD Codes: N17.9 - Acute kidney failure, unspecified SNOMED: 29521391 Qualifiers: Qualified Codes: N17.9 - Acute kidney failure, unspecified (2) Respiratory failure ICD Codes: J96.90 - Respiratory failure, unspecified, unspecified whether with hypoxia or hypercapnia SNOMED: 724818286 Qualifiers: Qualified Codes: J96.01 - Acute respiratory failure with hypoxia; J96.02 - Acute respiratory failure with hypercapnia (3) UTI (urinary tract infection) ICD Codes: N39.0 - Urinary tract infection, site not specified SNOMED: 74697005 Qualifiers: Qualified Codes: N39.0 - Urinary tract infection, site not specified (4) Schizophrenia ICD Codes: F20.9 - Schizophrenia, unspecified SNOMED: 96009944 (5) HTN (hypertension) ICD Codes: I10 - Essential (primary) hypertension SNOMED: 25709656 (6) Leukocytosis ICD Codes: D72.829 - Elevated white blood cell count, unspecified SNOMED: 837410401, 841654272 Status: progressing Assessment/Plan: no wheezing psych patient vitals holding s/p vomitting informed gi of vomitting uti respiratory insuff Subjective ROS Limited/Unobtainable: Yes Allergies: Coded Allergies: Grits (Unverified Allergy, Unknown, 07/06/17) [place] (Unverified Allergy, Unknown, 07/06/17) Objective Last 24 Hour Vital Signs Date Time Temp Pulse Resp B/P (MAP) Pulse Ox O2 Delivery O2 Flow Rate FiO2 02/06/19 09:00 Room Air Room Air 02/06/19 08:23 73 139/96 02/06/19 08:00 97.8 72 18 139/93 97 Room Air 02/06/19 05:53 132/98 02/06/19 04:00 97.1 68 18 132/98 97 Room Air 02/06/19 00:00 97.1 68 18 136/88 96 Room Air 02/05/19 22:15 167/91 02/05/19 21:00 Room Air Room Air 02/05/19 20:53 63 147/93 02/05/19 20:29 97 Nasal Cannula 2.0 28 02/05/19 20:00 98.4 63 18 147/93 95 Room Air 02/05/19 17:34 96.5 02/05/19 16:00 96.5 67 18 120/70 94 Nasal Cannula 2.0 02/05/19 16:00 64 02/05/19 14:08 69 18 154/101 93 Room Air 02/05/19 13:06 131/61 02/05/19 12:00 97.7 64 18 131/61 95 Nasal Cannula 2.0 02/05/19 12:00 64 Intake and Output 02/05/19 02/06/19 19:00 07:00 Intake Total 945 ml 540 ml Output Total 850 ml 1600 ml Balance 95 ml -1060 ml Intake Oral 420 ml 240 ml IV Total 525 ml 300 ml Output Urine Total 850 ml 1600 ml # Voids 3 Laboratory Tests 02/06/19 05:30: White Blood Count 11.1H, Red Blood Count 3.69L, Hemoglobin 11.8L, Hematocrit 35.2L, Mean Corpuscular Volume 95, Mean Corpuscular Hemoglobin 32.0H, Mean Corpuscular Hemoglobin Concent 33.6, Red Cell Distribution Width 11.9, Platelet Count 251, Mean Platelet Volume 6.8, Neutrophils (%) (Auto) 65.7, Lymphocytes (% ) (Auto) 19.4L, Monocytes (%) (Auto) 9.7, Eosinophils (%) (Auto) 4.3H, Basophils (%) (Auto) 0.9, Sodium Level 138, Potassium Level 4.4, Chloride Level 101, Carbon Dioxide Level 29, Anion Gap 8, Blood Urea Nitrogen 38H, Creatinine 1.6H, Estimat Glomerular Filtration Rate 33.2, Glucose Level 112H, Calcium Level 10.3H, Phosphorus Level 4.2, Magnesium Level 2.0, Total Bilirubin 0.5, Aspartate Amino Transf (AST/SGOT) 16, Alanine Aminotransferase (ALT/SGPT) 21, Alkaline Phosphatase 71, C-Reactive Protein, Quantitative 3.6H, Pro-B-Type Natriuretic Peptide 408H, Total Protein 8.2, Albumin 3.4, Globulin 4.8, Albumin/ Globulin Ratio 0.7L Height (Feet): 5 Height (Inches): 4.00 Weight (Pounds): 198 Neck: supple Cardiovascular: normal rate Respiratory/Chest: lungs clear Abdomen: soft Isela Rubio MD Feb 06, 2019 11:09
--- NOTE | 2019-02-06 11:14 | Pulmonolgy Critical Care Note ---
Critical Care - Asmt/Plan Assessment/Plan: Pulmonary Critical Care Progress Note HPI The patient is a 58 year old woman admitted with worsening shortness of breath, respiratory failure requiring intubation, pneumonia. Noted to have evidence of UTI in addition to pneumonia LLL Per chart review h/o Seizure disorder, Left Kidney Mass, Hydronephrosis, Hypertension, HHD Past Medical History: [facility]BL UTI from [facility] Leukocytosis likely related to infection Left kidney mass Left hydronephrosis Anxiety Dehydration Seizure disorder on Clonazepam and Gabapentin Weakness Schizophrenia Hypertension Obesity PSH: Left BKA Allergies: Grits (Unverified Allergy, Unknown, 07/06/17) [place] (Unverified Allergy, Unknown, 07/06/17) stable overnight, much improved SP Ureteric stentpreviously AB/ID Physical Exam Vital Signs Noted General Appearance: Awake Head: normocephalic, atraumatic, ENT: moist mucus membranes Neck: No LN Respiratory: CTAB Cardiovascular: regular rate, rhythm, HS1, HS2, no edema Gastrointestinal: decreased bowel sounds, overweight, abrasions abdominal wall Musculoskeletal: moving all limbs, BKA L Neurologic: Awake, interactive, no focal signs Skin: warm/dry, Impression: Previous Ventilator Dependent Respiratory failure now extubated Left lower lobe pulmonary infiltrate Urinary tract infection ESBL UTI from [facility] Acute on Chronic Renal Failure Left kidney mass Left hydronephrosis Anxiety Dehydration Seizure disorder on Clonazepam and Gabapentin Weakness Schizophrenia Hypertension Obesity Plan O2 PRN Antibiotics per ID Aspiration/Seizure precautions HHN 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 EKG: Rate: normal Rhythm: NSR ST Segments: no acute changes Chest X-Ray: left effusion, no pneumothorax, possible L sided infiltrate Critical Care - Objective Last 24 Hour Vital Signs Date Time Temp Pulse Resp B/P (MAP) Pulse Ox O2 Delivery O2 Flow Rate FiO2 02/06/19 09:00 Room Air Room Air 02/06/19 08:23 73 139/96 02/06/19 08:00 97.8 72 18 139/93 97 Room Air 02/06/19 05:53 132/98 02/06/19 04:00 97.1 68 18 132/98 97 Room Air 02/06/19 00:00 97.1 68 18 136/88 96 Room Air 02/05/19 22:15 167/91 02/05/19 21:00 Room Air Room Air 02/05/19 20:53 63 147/93 02/05/19 20:29 97 Nasal Cannula 2.0 28 02/05/19 20:00 98.4 63 18 147/93 95 Room Air 02/05/19 17:34 96.5 02/05/19 16:00 96.5 67 18 120/70 94 Nasal Cannula 2.0 02/05/19 16:00 64 02/05/19 14:08 69 18 154/101 93 Room Air 02/05/19 13:06 131/61 02/05/19 12:00 97.7 64 18 131/61 95 Nasal Cannula 2.0 02/05/19 12:00 64 Accucheck: 83 Critical Care - Subjective ROS Limited/Unobtainable: No FI02: 28 Vent Support Breath Rate: 16 Vent Support Mode: AC Vent Tidal Volume: 550 Sputum Amount: None PEEP: 5.0 PIP: 25 Tube Feeding Amount: 30 I&O: Intake and Output 02/05/19 02/06/19 19:00 07:00 Intake Total 945 ml 540 ml Output Total 850 ml 1600 ml Balance 95 ml -1060 ml Intake Oral 420 ml 240 ml IV Total 525 ml 300 ml Output Urine Total 850 ml 1600 ml # Voids 3 ET-Tube: 7.5 ET Position: 23 Gabino Smith MD Feb 06, 2019 11:14
--- NOTE | 2019-02-06 11:53 | Infectious Diseases Prog Note ---
Assessment/Plan Assessment/Plan A; Sepsis Positive blood culture, contamination Acute renal failure improving Acute respiratory failure, resolved Hydronephrosis Obstructive uropathy Schizophrenia P; Observe off antibiotic Will f/u CBC Subjective ROS Limited/Unobtainable: Yes Constitutional: Reports: no symptoms, other - doing better Respiratory: Reports: no symptoms Genitourinary: Reports: no symptoms Allergies: Coded Allergies: Grits (Unverified Allergy, Unknown, 07/06/17) [place] (Unverified Allergy, Unknown, 07/06/17) Objective Vital Signs Last 24 Hour Vital Signs Date Time Temp Pulse Resp B/P (MAP) Pulse Ox O2 Delivery O2 Flow Rate FiO2 02/06/19 09:00 Room Air Room Air 02/06/19 08:23 73 139/96 02/06/19 08:00 97.8 72 18 139/93 97 Room Air 02/06/19 05:53 132/98 02/06/19 04:00 97.1 68 18 132/98 97 Room Air 02/06/19 00:00 97.1 68 18 136/88 96 Room Air 02/05/19 22:15 167/91 02/05/19 21:00 Room Air Room Air 02/05/19 20:53 63 147/93 02/05/19 20:29 97 Nasal Cannula 2.0 28 02/05/19 20:00 98.4 63 18 147/93 95 Room Air 02/05/19 17:34 96.5 02/05/19 16:00 96.5 67 18 120/70 94 Nasal Cannula 2.0 02/05/19 16:00 64 02/05/19 14:08 69 18 154/101 93 Room Air 02/05/19 13:06 131/61 02/05/19 12:00 97.7 64 18 131/61 95 Nasal Cannula 2.0 02/05/19 12:00 64 Height (Feet): 5 Height (Inches): 4.00 Weight (Pounds): 198 General Appearance: no acute distress HEENT: mucous membranes moist Respiratory/Chest: lungs clear Cardiovascular: normal rate Abdomen: soft, non tender Extremities: no edema, other - left BKA Neurologic/Psychiatric: alert, responsive Laboratory Tests Test 02/06/19 05:30 White Blood Count 11.1 K/UL (4.8-10.8) H Red Blood Count 3.69 M/UL (4.20-5.40) L Hemoglobin 11.8 G/DL (12.0-16.0) L Hematocrit 35.2 % (37.0-47.0) L Mean Corpuscular Volume 95 FL (80-99) Mean Corpuscular Hemoglobin 32.0 PG (27.0-31.0) H Mean Corpuscular Hemoglobin Concent 33.6 G/DL (32.0-36.0) Red Cell Distribution Width 11.9 % (11.6-14.8) Platelet Count 251 K/UL (150-450) Mean Platelet Volume 6.8 FL (6.5-10.1) Neutrophils (%) (Auto) 65.7 % (45.0-75.0) Lymphocytes (%) (Auto) 19.4 % (20.0-45.0) L Monocytes (%) (Auto) 9.7 % (1.0-10.0) Eosinophils (%) (Auto) 4.3 % (0.0-3.0) H Basophils (%) (Auto) 0.9 % (0.0-2.0) Sodium Level 138 MMOL/L (136-145) Potassium Level 4.4 MMOL/L (3.5-5.1) Chloride Level 101 MMOL/L (98-107) Carbon Dioxide Level 29 MMOL/L (21-32) Anion Gap 8 mmol/L (5-15) Blood Urea Nitrogen 38 mg/dL (7-18) H Creatinine 1.6 MG/DL (0.55-1.30) H Estimat Glomerular Filtration Rate 33.2 mL/min (>60) Glucose Level 112 MG/DL (74-106) H Calcium Level 10.3 MG/DL (8.5-10.1) H Phosphorus Level 4.2 MG/DL (2.5-4.9) Magnesium Level 2.0 MG/DL (1.8-2.4) Total Bilirubin 0.5 MG/DL (0.2-1.0) Aspartate Amino Transf (AST/SGOT) 16 U/L (15-37) Alanine Aminotransferase (ALT/SGPT) 21 U/L (12-78) Alkaline Phosphatase 71 U/L (46-116) C-Reactive Protein, Quantitative 3.6 mg/dL (0.00-0.90) H Pro-B-Type Natriuretic Peptide 408 pg/mL (0-125) H Total Protein 8.2 G/DL (6.4-8.2) Albumin 3.4 G/DL (3.4-5.0) Globulin 4.8 g/dL Albumin/Globulin Ratio 0.7 (1.0-2.7) L Current Medications Medications (Trade) Dose Ordered Sig/William Route PRN Reason Start Time Stop Time Status Last Admin Dose Admin Acetaminophen (Tylenol) 650 mg Q6H PRN ORAL Fever (temp>100.5F) 02/06/19 00:14 03/06/19 00:13 Bisacodyl (Dulcolax) 10 mg DAILYPRN PRN RECTAL Constipation 02/06/19 00:14 03/06/19 00:13 Carvedilol (Coreg) 25 mg EVERY 12 HOURS ORAL 02/06/19 09:00 03/04/19 10:29 02/06/19 08:23 Chlorhexidine Gluconate (Genevieve-Hex 2%) 1 applic DAILY@2000 TOPIC 02/06/19 20:00 02/28/19 19:59 Clonazepam (KlonoPIN) 1 mg Q8HR ORAL 02/06/19 06:00 02/12/19 13:59 02/06/19 05:53 Dextrose (Dextrose 50%) 25 ml Q30M PRN IV Hypoglycemia 02/06/19 00:30 02/28/19 18:29 Dextrose (Dextrose 50%) 50 ml Q30M PRN IV Hypoglycemia 02/06/19 00:30 02/28/19 18:29 Dextrose/Sodium Chloride 1,000 ml @ 75 mls/hr [id number] IV 02/06/19 00:30 03/06/19 00:29 02/06/19 07:36 Docusate Sodium (Colace) 250 mg DAILY ORAL 02/06/19 09:00 03/01/19 08:59 02/06/19 08:14 Heparin Sodium (Porcine) (Heparin 5000 units/ml) 5,000 units EVERY 12 HOURS SUBQ 02/06/19 09:00 03/01/19 08:59 Hydralazine HCl (Apresoline) 25 mg Q8HR ORAL 02/06/19 06:00 12/6/19 11:59 02/06/19 05:53 Hydromorphone HCl (Dilaudid) 0.5 mg Q2H PRN IVP For Pain 02/06/19 00:17 02/11/19 00:16 02/06/19 11:07 Ondansetron HCl (Zofran) 4 mg Q6H PRN IVP Nausea & Vomiting 02/06/19 09:51 03/08/19 09:50 Pantoprazole (Protonix) 40 mg EVERY 12 HOURS ORAL 02/06/19 09:00 03/05/19 20:59 02/06/19 08:14 Jose Solis MD Feb 06, 2019 11:53
[2019-02-06 12:00] VITALS: BP 130/83
--- NOTE | 2019-02-06 13:32 | Neurology Progress Note ---
Interim History Interim History Interim History Ms. Cole feels better today. She still has racing thoughts. She denies any new neurological symptoms. She has been seizure-free. She refused to have a repeat EEG done yesterday. Review of Systems Neuro Review of Systems Benign. Objective Physical Exam Last Vital Signs Date Time Temp Pulse Resp B/P (MAP) Pulse Ox O2 Delivery O2 Flow Rate FiO2 02/06/19 09:00 Room Air Room Air 02/06/19 08:23 73 139/96 02/06/19 08:00 97.8 18 97 02/05/19 20:29 2.0 28 Laboratory Tests Test 02/06/19 05:30 White Blood Count 11.1 K/UL (4.8-10.8) H Red Blood Count 3.69 M/UL (4.20-5.40) L Hemoglobin 11.8 G/DL (12.0-16.0) L Hematocrit 35.2 % (37.0-47.0) L Mean Corpuscular Volume 95 FL (80-99) Mean Corpuscular Hemoglobin 32.0 PG (27.0-31.0) H Mean Corpuscular Hemoglobin Concent 33.6 G/DL (32.0-36.0) Red Cell Distribution Width 11.9 % (11.6-14.8) Platelet Count 251 K/UL (150-450) Mean Platelet Volume 6.8 FL (6.5-10.1) Neutrophils (%) (Auto) 65.7 % (45.0-75.0) Lymphocytes (%) (Auto) 19.4 % (20.0-45.0) L Monocytes (%) (Auto) 9.7 % (1.0-10.0) Eosinophils (%) (Auto) 4.3 % (0.0-3.0) H Basophils (%) (Auto) 0.9 % (0.0-2.0) Sodium Level 138 MMOL/L (136-145) Potassium Level 4.4 MMOL/L (3.5-5.1) Chloride Level 101 MMOL/L (98-107) Carbon Dioxide Level 29 MMOL/L (21-32) Anion Gap 8 mmol/L (5-15) Blood Urea Nitrogen 38 mg/dL (7-18) H Creatinine 1.6 MG/DL (0.55-1.30) H Estimat Glomerular Filtration Rate 33.2 mL/min (>60) Glucose Level 112 MG/DL (74-106) H Calcium Level 10.3 MG/DL (8.5-10.1) H Phosphorus Level 4.2 MG/DL (2.5-4.9) Magnesium Level 2.0 MG/DL (1.8-2.4) Total Bilirubin 0.5 MG/DL (0.2-1.0) Aspartate Amino Transf (AST/SGOT) 16 U/L (15-37) Alanine Aminotransferase (ALT/SGPT) 21 U/L (12-78) Alkaline Phosphatase 71 U/L (46-116) C-Reactive Protein, Quantitative 3.6 mg/dL (0.00-0.90) H Pro-B-Type Natriuretic Peptide 408 pg/mL (0-125) H Total Protein 8.2 G/DL (6.4-8.2) Albumin 3.4 G/DL (3.4-5.0) Globulin 4.8 g/dL Albumin/Globulin Ratio 0.7 (1.0-2.7) L Neurologic Exam Objective PHYSICAL EXAMINATION: GENERAL: She is a well-developed, well-nourished, obese lady, lying in bed, responding to internal stimuli. HEAD: Normocephalic and atraumatic. EENT: Benign. NECK: No neck rigidity was observed. NEUROLOGICAL EXAMINATION: MENTAL STATUS EXAMINATION: She was awake and alert. She was oriented to [facility], [facility] and January only. She knew that Christopher was president but could not remember prior presidents. Her mathematical skills were impaired. Her visual-spatial function was also impaired. SPEECH: She had no dysarthria. LANGUAGE: Could not be tested adequately. CRANIAL NERVE EXAMINATION: II: She was able to count fingers accurately. III, IV, : External ocular movements were full. The pupils were 3 mm in diameter and reactive sluggishly to light. V: She had normal facial sensations, and the temporalis masseters and pterygoids functions normally. VII: She had normal facial expressions and no facial asymmetry. VIII: She was able to hear well and had no nystagmus. IX: Her palate moved symmetrically on phonation. X: Her voice was hoarse. XI: The sternocleidomastoids and trapezii functioned well XII: The tongue was in the midline. MOTOR SYSTEM: The tone was normal in all four extremities. Examination of muscle mass revealed no focal wasting. She did have left below-knee amputation. She moved all 4 extremities on command. The strength was relatively good in her upper extremities but diminished in the lower extremities. Her effort was poor. SENSORY EXAMINATION: Light touch was symmetrical bilaterally. REFLEXES: 0 at the biceps, triceps, brachioradialis, and knees, 0 at the right ankle. The plantar response was flexor on the right side. COORDINATION: She performed well on [id number] testing. STANCE & GAIT: Could not be tested. Impression/Recommendations Diagnostic Impression 1. Ms. Bridget Cole is a 58-year-old, right-handed, lady, with a past history of a psychiatric illness, a seizure disorder, left below-knee amputation , and general debility as a result of which she lives in a fpc, who on 01/29/2019 was noted to have an altered mental state related to hypoxia associated with a pneumonia, urinary tract infection, and sepsis. Since then, she has been hospitalized and has been treated for these problems. 2. She feels better today. She still has racing thoughts. She denies any new neurological symptoms. She has been seizure-free. She refused to have a repeat EEG done yesterday. 3. With regards to her seizure disorder she has had seizures for numerous years. When she has one of her seizures she passes out and can pass out for an entire week. She denies any abnormal movements, auras, or postictal neurological dysfunction. She is unable to tell me what medicines she takes for her seizures. She cannot tell me what the frequency of her seizures is. 4. On neurological examination, at this time, she is awake and alert. She is oriented to [employer], [employer] and January only. She is aware that Christopher is president but cannot remember prior presidents. Her mathematical skills are impaired. Her visual-spatial function is also impaired. She has no dysarthria. She does have a mild anomia for low-frequency words. She does not demonstrate any focal findings on her cranial nerve, motor, or sensory examination. However her lower extremities are weaker than the upper extremities. Her deep tendon reflexes are absent but her plantar response is flexor on the right side. 5. Her latest laboratory data on my initial evaluation revealed that she still has a leukocytosis with WBC count of 12,000. She is anemic with a hemoglobin of 11.2 G. Her chemistry panel reveals a BUN elevated at 60, a creatinine elevated at 5.0, glucose elevated at 123. Her B12 level is normal at 443. Her folate is normal at 17.9. Her TSH is normal at 0.548. Her proBNP is elevated at 1450. Her latest blood gas performed on 01/29/2019 at 2100 hours reveals a pH of 7.42, pCO2 of 36, and a pO2 of 74. The Urinalysis revealed 3+leukocyte esterase, 15-20 red blood cells and white blood cells per high-power field. 6. CT scan of the brain performed on 01/29/2019 revealed atrophy and deep white matter changes. 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 7. 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 No interictal discharges were seen. 8. The patient's history, neurological examination, laboratory data, and imaging studies are most consistent with a significant toxic metabolic encephalopathy related to sepsis associated with a urinary tract infection, pneumonia, associated hypoxia, and sedation with Versed. Her encephalopathy has improved. She was floridly psychotic yesterday but is slightly better today. 9. It is still unclear as to what type of seizure disorder the patient has. The description that she gave does not fit any specific seizure entity. Recommendations 1. Continue present management. 2. Continue aggressive treatment of infectious processes. 3. Continue aggressive treatment of respiratory dysfunction. 4. Psychiatric evaluation and management for psychosis. 5. Observe closely. Errol Quesada M.D., M.S.P.H. Errol Quesada MD Feb 06, 2019 13:32
--- NOTE | 2019-02-06 14:25 | Nephrology Progress Note ---
Assessment/Plan Problem List: (1) Acute renal failure Assessment: Cr lowering (2) Respiratory failure (3) HTN (hypertension) (4) Schizophrenia (5) Hydronephrosis Assessment Acute on Chronic Renal Failure- Cr lowering ? kidney mass Right hydronephrosis Ventilator Dependent Respiratory failure Left lower lobe pulmonary infiltrate Urinary tract infection ES[facility]TI from jail Dehydration Seizure disorder on Clonazepam and Gabapentin Schizophrenia Hypertension Obesity Plan DC IV resume tramadol for pain Adjust BP meds adjust electrolytes patient had right kidney stent Off Lasix adjust all mind altering meds avoid nephrotoxics monitor renal parametes per orders Subjective Constitutional: Reports: malaise Objective Objective Last 24 Hour Vital Signs Date Time Temp Pulse Resp B/P (MAP) Pulse Ox O2 Delivery O2 Flow Rate FiO2 02/06/19 14:02 154/90 02/06/19 12:00 97.9 83 18 130/83 95 Room Air 02/06/19 09:00 Room Air Room Air 02/06/19 08:23 73 139/96 02/06/19 08:00 97.8 72 18 139/93 97 Room Air 02/06/19 05:53 132/98 02/06/19 04:00 97.1 68 18 132/98 97 Room Air 02/06/19 00:00 97.1 68 18 136/88 96 Room Air 02/05/19 22:15 167/91 02/05/19 21:00 Room Air Room Air 02/05/19 20:53 63 147/93 02/05/19 20:29 97 Nasal Cannula 2.0 28 02/05/19 20:00 98.4 63 18 147/93 95 Room Air 02/05/19 17:34 96.5 02/05/19 16:00 96.5 67 18 120/70 94 Nasal Cannula 2.0 02/05/19 16:00 64 Intake and Output 02/05/19 02/06/19 18:59 06:59 Intake Total 1140 ml 540 ml Output Total 850 ml 1600 ml Balance 290 ml -1060 ml Intake Oral 540 ml 240 ml IV Total 600 ml 300 ml Output Urine Total 850 ml 1600 ml # Voids 3 Laboratory Tests 02/06/19 05:30: White Blood Count 11.1H, Red Blood Count 3.69L, Hemoglobin 11.8L, Hematocrit 35.2L, Mean Corpuscular Volume 95, Mean Corpuscular Hemoglobin 32.0H, Mean Corpuscular Hemoglobin Concent 33.6, Red Cell Distribution Width 11.9, Platelet Count 251, Mean Platelet Volume 6.8, Neutrophils (%) (Auto) 65.7, Lymphocytes (% ) (Auto) 19.4L, Monocytes (%) (Auto) 9.7, Eosinophils (%) (Auto) 4.3H, Basophils (%) (Auto) 0.9, Sodium Level 138, Potassium Level 4.4, Chloride Level 101, Carbon Dioxide Level 29, Anion Gap 8, Blood Urea Nitrogen 38H, Creatinine 1.6H, Estimat Glomerular Filtration Rate 33.2, Glucose Level 112H, Calcium Level 10.3H, Phosphorus Level 4.2, Magnesium Level 2.0, Total Bilirubin 0.5, Aspartate Amino Transf (AST/SGOT) 16, Alanine Aminotransferase (ALT/SGPT) 21, Alkaline Phosphatase 71, C-Reactive Protein, Quantitative 3.6H, Pro-B-Type Natriuretic Peptide 408H, Total Protein 8.2, Albumin 3.4, Globulin 4.8, Albumin/ Globulin Ratio 0.7L Height (Feet): 5 Height (Inches): 4.00 Weight (Pounds): 198 General Appearance: no apparent distress Objective no change Derrell Hatch MD Feb 06, 2019 14:25
--- NOTE | 2019-02-06 15:50 | NUR ---
NURSE NOTES: Patient noted with 50cc of emesis with food, no blood in emesis. No s/s of aspiration, lung sound is clear, O2sat is 96% in room air. HOB elevated and patient is lying on her side. Zofran given, oral care done. Patient verbalized that " I feel fine." She denies nausea @ this time. Will continue to monitor.
[2019-02-06 16:00] VITALS: BP 142/82
--- NOTE | 2019-02-06 17:00 | Cardiac Electrophysiology PN ---
Assessment/Plan Assessment/Plan 1. S/P Respiratory failure. Extubated. EF 60%. 2. HTN on Coreg 25 bid and hydralazine 25 bid 3. Acute renal failure. S/P stent by Dr Walker 4. S/P Left BKA 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 Subjective Alert in NAD. No CP or SOB. RN at bedside Objective Last 24 Hour Vital Signs Date Time Temp Pulse Resp B/P (MAP) Pulse Ox O2 Delivery O2 Flow Rate FiO2 02/06/19 16:00 97.7 59 18 142/82 95 Room Air 02/06/19 14:02 154/90 02/06/19 12:00 97.9 83 18 130/83 95 Room Air 02/06/19 09:00 Room Air Room Air 02/06/19 08:23 73 139/96 02/06/19 08:00 97.8 72 18 139/93 97 Room Air 02/06/19 05:53 132/98 02/06/19 04:00 97.1 68 18 132/98 97 Room Air 02/06/19 00:00 97.1 68 18 136/88 96 Room Air 02/05/19 22:15 167/91 02/05/19 21:00 Room Air Room Air 02/05/19 20:53 63 147/93 02/05/19 20:29 97 Nasal Cannula 2.0 28 02/05/19 20:00 98.4 63 18 147/93 95 Room Air 02/05/19 17:34 96.5 Intake and Output 02/05/19 02/06/19 18:59 06:59 Intake Total 1140 ml 540 ml Output Total 850 ml 1600 ml Balance 290 ml -1060 ml Intake Oral 540 ml 240 ml IV Total 600 ml 300 ml Output Urine Total 850 ml 1600 ml # Voids 3 Laboratory Tests Test 02/06/19 05:30 White Blood Count 11.1 K/UL (4.8-10.8) H Red Blood Count 3.69 M/UL (4.20-5.40) L Hemoglobin 11.8 G/DL (12.0-16.0) L Hematocrit 35.2 % (37.0-47.0) L Mean Corpuscular Volume 95 FL (80-99) Mean Corpuscular Hemoglobin 32.0 PG (27.0-31.0) H Mean Corpuscular Hemoglobin Concent 33.6 G/DL (32.0-36.0) Red Cell Distribution Width 11.9 % (11.6-14.8) Platelet Count 251 K/UL (150-450) Mean Platelet Volume 6.8 FL (6.5-10.1) Neutrophils (%) (Auto) 65.7 % (45.0-75.0) Lymphocytes (%) (Auto) 19.4 % (20.0-45.0) L Monocytes (%) (Auto) 9.7 % (1.0-10.0) Eosinophils (%) (Auto) 4.3 % (0.0-3.0) H Basophils (%) (Auto) 0.9 % (0.0-2.0) Sodium Level 138 MMOL/L (136-145) Potassium Level 4.4 MMOL/L (3.5-5.1) Chloride Level 101 MMOL/L (98-107) Carbon Dioxide Level 29 MMOL/L (21-32) Anion Gap 8 mmol/L (5-15) Blood Urea Nitrogen 38 mg/dL (7-18) H Creatinine 1.6 MG/DL (0.55-1.30) H Estimat Glomerular Filtration Rate 33.2 mL/min (>60) Glucose Level 112 MG/DL (74-106) H Calcium Level 10.3 MG/DL (8.5-10.1) H Phosphorus Level 4.2 MG/DL (2.5-4.9) Magnesium Level 2.0 MG/DL (1.8-2.4) Total Bilirubin 0.5 MG/DL (0.2-1.0) Aspartate Amino Transf (AST/SGOT) 16 U/L (15-37) Alanine Aminotransferase (ALT/SGPT) 21 U/L (12-78) Alkaline Phosphatase 71 U/L (46-116) C-Reactive Protein, Quantitative 3.6 mg/dL (0.00-0.90) H Pro-B-Type Natriuretic Peptide 408 pg/mL (0-125) H Total Protein 8.2 G/DL (6.4-8.2) Albumin 3.4 G/DL (3.4-5.0) Globulin 4.8 g/dL Albumin/Globulin Ratio 0.7 (1.0-2.7) L Objective General Appearance: No acute distress HEENT: No JVD. Respiratory/Chest: lungs clear Cardiovascular: RRR Abdomen: soft, non tender Extremities: no edema, other - left Justo Sinclair MD Feb 06, 2019 17:00
[2019-02-06] MEDS: traMADol 50mg tab ORAL PRN (18:36)
--- NOTE | 2019-02-06 19:22 | NUR ---
HAND-OFF: Report given to Susannah.
--- NOTE | 2019-02-06 19:30 | NUR ---
NURSE NOTES: Received report from Carisa Bergman RN. Patient is in bed, awake and alert x2. No signs of distress or SOB. Rod in place and draining paula/yellow urine. PALMIRA PICC line intact and patent. Bed locked and in lowest position. Call light in reach. Side rails padded as seizure precaution. Will continue to monitor.
[2019-02-06 20:00] VITALS: BP 152/98
[2019-02-06] MEDS: Dyna-Hex 2% Top Sol 2oz TOPIC SCH ×2 (20:17→21:10)
[2019-02-07] VITALS (7 sets, daily range): BP systolic 18–153; BP diastolic 67–114
[2019-02-07] MEDS: HydrALAZINE 25mg tab ORAL SCH ×3 (05:08→22:00)
--- NOTE | 2019-02-07 07:48 | NUR ---
HAND-OFF: Report given to GUZMAN Campbell.
--- NOTE | 2019-02-07 07:50 | NUR ---
NURSE NOTES: Received patient from Rosemarie Davalos. Patient is awake lying comfortably in bed. Denies pain or discomfort at this time. Fall/seizure precautions in place. side rails X3 up and padded. bed locked to lowest position. call ch within patients reached. will follow.
[2019-02-07] MEDS: Docusate 250mg cap ORAL SCH (08:28)
[2019-02-07] MEDS: traMADol 50mg tab ORAL PRN ×2 (08:29→19:51)
[2019-02-07] MEDS: Carvedilol 25mg Tab ORAL SCH ×2 (08:29→20:31)
[2019-02-07] MEDS: Heparin 5000 units/ml inj SUBQ SCH ×2 (08:33→20:35)
--- NOTE | 2019-02-07 11:02 | Infectious Diseases Prog Note ---
Assessment/Plan Assessment/Plan A; Sepsis Positive blood culture, contamination Acute renal failure improving Acute respiratory failure, resolved Hydronephrosis Obstructive uropathy Schizophrenia P; Observe off antibiotic Will f/u CBC Subjective ROS Limited/Unobtainable: Yes Constitutional: Denies: fever Respiratory: Reports: no symptoms Cardiovascular: Reports: no symptoms Gastrointestinal/Abdominal: Reports: no symptoms Genitourinary: Reports: no symptoms Musculoskeletal: Reports: pain, other - generlized Allergies: Coded Allergies: Grits (Unverified Allergy, Unknown, 07/06/17) [place] (Unverified Allergy, Unknown, 07/06/17) Objective Vital Signs Last 24 Hour Vital Signs Date Time Temp Pulse Resp B/P (MAP) Pulse Ox O2 Delivery O2 Flow Rate FiO2 02/07/19 08:59 97.8 02/07/19 08:29 78 124/83 02/07/19 08:00 97.8 78 20 124/83 97 Room Air 02/07/19 05:08 125/87 02/07/19 04:00 98.2 71 22 125/87 95 Room Air 02/07/19 00:00 98.1 65 20 139/87 95 Room Air 02/06/19 21:11 152/98 02/06/19 21:11 69 152/98 02/06/19 20:00 97.9 69 17 152/98 95 Room Air 02/06/19 16:00 97.7 59 18 142/82 95 Room Air 02/06/19 14:02 154/90 02/06/19 12:00 97.9 83 18 130/83 95 Room Air Height (Feet): 5 Height (Inches): 4.00 Weight (Pounds): 197 General Appearance: no acute distress HEENT: mucous membranes moist Respiratory/Chest: normal breath sounds Cardiovascular: normal rate Abdomen: soft, non tender Extremities: no edema, other - left BKA Neurologic/Psychiatric: alert, responsive Current Medications Medications (Trade) Dose Ordered Sig/William Route PRN Reason Start Time Stop Time Status Last Admin Dose Admin Acetaminophen (Tylenol) 650 mg Q6H PRN ORAL Fever (temp>100.5F) 02/06/19 00:14 03/06/19 00:13 Bisacodyl (Dulcolax) 10 mg DAILYPRN PRN RECTAL Constipation 02/06/19 00:14 03/06/19 00:13 Carvedilol (Coreg) 25 mg EVERY 12 HOURS ORAL 02/06/19 09:00 03/04/19 10:29 02/07/19 08:29 Chlorhexidine Gluconate (Genevieve-Hex 2%) 1 applic DAILY@2000 TOPIC 02/06/19 20:00 02/28/19 19:59 02/06/19 21:10 Clonazepam (KlonoPIN) 1 mg Q8HR ORAL 02/06/19 06:00 02/12/19 13:59 02/07/19 05:08 Dextrose (Dextrose 50%) 25 ml Q30M PRN IV Hypoglycemia 02/06/19 00:30 02/28/19 18:29 Dextrose (Dextrose 50%) 50 ml Q30M PRN IV Hypoglycemia 02/06/19 00:30 02/28/19 18:29 Docusate Sodium (Colace) 250 mg DAILY ORAL 02/06/19 09:00 03/01/19 08:59 02/07/19 08:28 Heparin Sodium (Porcine) (Heparin 5000 units/ml) 5,000 units EVERY 12 HOURS SUBQ 02/06/19 09:00 03/01/19 08:59 02/07/19 08:33 Hydralazine HCl (Apresoline) 25 mg Q8HR ORAL 02/06/19 06:00 03/04/19 11:59 02/07/19 05:08 Hydromorphone HCl (Dilaudid) 0.5 mg Q4H PRN IVP For break through Pain 02/06/19 14:30 02/11/19 00:16 Ondansetron HCl (Zofran) 4 mg Q6H PRN IVP Nausea & Vomiting 02/06/19 09:51 03/08/19 09:50 02/06/19 15:26 Pantoprazole (Protonix) 40 mg EVERY 12 HOURS ORAL 02/06/19 09:00 03/05/19 20:59 02/07/19 08:29 Tramadol HCl (Ultram) 50 mg Q6H PRN ORAL For Pain 02/06/19 14:30 02/13/19 14:29 02/07/19 08:29 Jose Solis MD Feb 07, 2019 11:02
--- NOTE | 2019-02-07 11:08 | Neurology Progress Note ---
Interim History Interim History Interim History Ms. Cole feels well. "I want to go to [facility] now!" She still has racing thoughts. She denies any new neurological symptoms. She has been seizure-free. She has not had her repeat EEG. Review of Systems Neuro Review of Systems Benign. Objective Physical Exam Last Vital Signs Date Time Temp Pulse Resp B/P (MAP) Pulse Ox O2 Delivery O2 Flow Rate FiO2 02/07/19 08:59 97.8 02/07/19 08:29 78 124/83 02/07/19 08:00 20 97 Room Air 02/05/19 20:29 2.0 28 Neurologic Exam Objective PHYSICAL EXAMINATION: GENERAL: She is a well-developed, well-nourished, obese lady, lying in bed, in no acute distress. HEAD: Normocephalic and atraumatic. EENT: Benign. NECK: No neck rigidity was observed. NEUROLOGICAL EXAMINATION: MENTAL STATUS EXAMINATION: She was awake and alert. She was oriented to [facility], [facility] and February 07, 2019. She was able to remember Presidents [place] and Obama only. Her mathematical skills were impaired. Her visuospatial function was also impaired. SPEECH: She had no dysarthria. LANGUAGE: She had a mild anomia. CRANIAL NERVE EXAMINATION: II: She was able to count fingers accurately. III, IV, : External ocular movements were full. The pupils were 3 mm in diameter and reactive sluggishly to light. V: She had normal facial sensations, and the temporalis masseters and pterygoids functions normally. VII: She had normal facial expressions and no facial asymmetry. VIII: She was able to hear well and had no nystagmus. IX: Her palate moved symmetrically on phonation. X: Her voice was hoarse. XI: The sternocleidomastoids and trapezii functioned well XII: The tongue was in the midline. MOTOR SYSTEM: The tone was normal in all four extremities. Examination of muscle mass revealed no focal wasting. She did have left below-knee amputation. She moved all 4 extremities on command. The strength was relatively good in her upper extremities but diminished in the lower extremities. Her effort was poor. SENSORY EXAMINATION: Light touch was symmetrical bilaterally. REFLEXES: 0 at the biceps, triceps, brachioradialis, and knees, 0 at the right ankle. The plantar response was flexor on the right side. COORDINATION: She performed well on [id number] testing. STANCE & GAIT: Could not be tested. Impression/Recommendations Diagnostic Impression 1. Ms. Bridget Cole is a 58-year-old, right-handed, lady, with a past history of a psychiatric illness, a seizure disorder, left below-knee amputation , and general debility as a result of which she lives in a [facility], who on 01/29/2019 was noted to have an altered mental state related to hypoxia associated with a pneumonia, urinary tract infection, and sepsis. Since then, she has been hospitalized and has been treated for these problems. 2. She feels well. "I want to go to [facility] now!" She still has racing thoughts. She denies any new neurological symptoms. She has been seizure- free. She has not had her repeat EEG. 3. With regards to her seizure disorder she has had seizures for numerous years. When she has one of her seizures she passes out and can pass out for an entire week. She denies any abnormal movements, auras, or postictal neurological dysfunction. She is unable to tell me what medicines she takes for her seizures. She cannot tell me what the frequency of her seizures is. 4. On neurological examination, at this time, she is awake and alert. She is fully oriented. She is able to remember Presidents Trump and Obama only. Her mathematical skills are impaired. Her visuospatial function is also impaired. She has no dysarthria. She does have a mild anomia for low-frequency words. She does not demonstrate any focal findings on her cranial nerve, motor, or sensory examination. However her lower extremities are weaker than the upper extremities. Her deep tendon reflexes are absent but her plantar response is flexor on the right side. 5. Her latest laboratory data on my initial evaluation revealed that she still has a leukocytosis with WBC count of 12,000. She is anemic with a hemoglobin of 11.2 G. Her chemistry panel reveals a BUN elevated at 60, a creatinine elevated at 5.0, glucose elevated at 123. Her B12 level is normal at 443. Her folate is normal at 17.9. Her TSH is normal at 0.548. Her proBNP is elevated at 1450. Her latest blood gas performed on 01/29/2019 at 2100 hours reveals a pH of 7.42, pCO2 of 36, and a pO2 of 74. The Urinalysis revealed 3+leukocyte esterase, 15-20 red blood cells and white blood cells per high-power field. 6. CT scan of the brain performed on 01/29/2019 revealed atrophy and deep white matter changes. 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 7. 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 No interictal discharges were seen. 8. The patient's history, neurological examination, laboratory data, and imaging studies are most consistent with a significant toxic metabolic encephalopathy related to sepsis associated with a urinary tract infection, pneumonia, associated hypoxia, and sedation with Versed. Her encephalopathy has improved. She was floridly psychotic 2 days ago but is better today. 9. It is still unclear as to what type of seizure disorder the patient has. The description that she gave does not fit any specific seizure entity. Recommendations 1. Continue present management. 2. Continue aggressive treatment of infectious processes. 3. Continue aggressive treatment of respiratory dysfunction. 4. Psychiatric evaluation and management for psychosis. 5. Observe closely. Errol Quesada M.D., M.S.P.H. Errol Quesada MD Feb 07, 2019 11:08
--- NOTE | 2019-02-07 13:03 | Pulmonolgy Critical Care Note ---
Critical Care - Asmt/Plan Assessment/Plan: Pulmonary Critical Care Progress Note HPI The patient is a 58 year old woman admitted with worsening shortness of breath, respiratory failure requiring intubation, pneumonia. Noted to have evidence of UTI in addition to pneumonia LLL Per chart review h/o Seizure disorder, Left Kidney Mass, Hydronephrosis, Hypertension, HHD Past Medical History: ESBL UTI from detention Leukocytosis likely related to infection Left kidney mass Left hydronephrosis Anxiety Dehydration Seizure disorder on Clonazepam and Gabapentin Weakness Schizophrenia Hypertension Obesity PSH: Left BKA Allergies: Grits (Unverified Allergy, Unknown, 07/06/17) [place] (Unverified Allergy, Unknown, 07/06/17) stable pulmonary status, on RA, much improved SP Ureteric stent previously Being observed off AB Physical Exam Vital Signs Noted General Appearance: Awake Head: normocephalic, atraumatic, ENT: moist mucus membranes Neck: No LN Respiratory: CTAB Cardiovascular: regular rate, rhythm, HS1, HS2, no edema Gastrointestinal: decreased bowel sounds, overweight, abrasions abdominal wall Musculoskeletal: moving all limbs, BKA L Neurologic: Awake, interactive, no focal signs Skin: warm/dry, Impression: Previous Ventilator Dependent Respiratory failure now extubated Left lower lobe pulmonary infiltrate Urinary tract infection ESBL UTI from detention Acute on Chronic Renal Failure Left kidney mass Left hydronephrosis Anxiety Dehydration Seizure disorder on Clonazepam and Gabapentin Weakness Schizophrenia Hypertension Obesity Plan O2 PRN Antibiotics DC per ID Aspiration/Seizure precautions HHN PPX SURFACER medications EKG: Rate: normal Rhythm: NSR ST Segments: no acute changes Chest X-Ray: left effusion, no pneumothorax, possible L sided infiltrate Critical Care - Objective Last 24 Hour Vital Signs Date Time Temp Pulse Resp B/P (MAP) Pulse Ox O2 Delivery O2 Flow Rate FiO2 02/07/19 12:00 98.2 64 18 124/87 97 Room Air 02/07/19 08:59 97.8 02/07/19 08:29 78 124/83 02/07/19 08:00 97.8 78 20 124/83 97 Room Air 02/07/19 05:08 125/87 02/07/19 04:00 98.2 71 22 125/87 95 Room Air 02/07/19 00:00 98.1 65 20 139/87 95 Room Air 02/06/19 21:11 152/98 02/06/19 21:11 69 152/98 02/06/19 20:00 97.9 69 17 152/98 95 Room Air 02/06/19 16:00 97.7 59 18 142/82 95 Room Air 02/06/19 14:02 154/90 Accucheck: 83 Critical Care - Subjective ROS Limited/Unobtainable: No FI02: 28 Vent Support Breath Rate: 16 Vent Support Mode: AC Vent Tidal Volume: 550 Sputum Amount: None PEEP: 5.0 PIP: 25 Tube Feeding Amount: 30 I&O: Intake and Output 02/06/19 02/07/19 19:00 07:00 Intake Total 450 ml Balance 450 ml IV Total 450 ml ET-Tube: 7.5 ET Position: 23 Gabino Smith MD Feb 07, 2019 13:03
--- NOTE | 2019-02-07 13:19 | Nephrology Progress Note ---
Assessment/Plan Problem List: (1) Acute renal failure Assessment: Cr lowering (2) Respiratory failure (3) HTN (hypertension) (4) Schizophrenia (5) Hydronephrosis Assessment Acute on Chronic Renal Failure- Cr lowering ? kidney mass Right hydronephrosis Ventilator Dependent Respiratory failure Left lower lobe pulmonary infiltrate Urinary tract infection ESBL UTI from [facility] Dehydration Seizure disorder on Clonazepam and Gabapentin Schizophrenia Hypertension Obesity Plan no labs today DC IV resume tramadol for pain Adjust BP meds adjust electrolytes patient had right kidney stent Off Lasix adjust all mind altering meds avoid nephrotoxics monitor renal parametes per orders Subjective ROS Limited/Unobtainable: No Constitutional: Reports: malaise Objective Objective Last 24 Hour Vital Signs Date Time Temp Pulse Resp B/P (MAP) Pulse Ox O2 Delivery O2 Flow Rate FiO2 02/07/19 12:00 98.2 64 18 124/87 97 Room Air 02/07/19 08:59 97.8 02/07/19 08:29 78 124/83 02/07/19 08:00 97.8 78 20 124/83 97 Room Air 02/07/19 05:08 125/87 02/07/19 04:00 98.2 71 22 125/87 95 Room Air 02/07/19 00:00 98.1 65 20 139/87 95 Room Air 02/06/19 21:11 152/98 02/06/19 21:11 69 152/98 02/06/19 20:00 97.9 69 17 152/98 95 Room Air 02/06/19 16:00 97.7 59 18 142/82 95 Room Air 02/06/19 14:02 154/90 Intake and Output 02/06/19 02/07/19 19:00 07:00 Intake Total 450 ml Balance 450 ml IV Total 450 ml Height (Feet): 5 Height (Inches): 4.00 Weight (Pounds): 197 General Appearance: no apparent distress Objective no change Derrell Hatch MD Feb 07, 2019 13:19
--- NOTE | 2019-02-07 14:20 | Cardiac Electrophysiology PN ---
Assessment/Plan Assessment/Plan 1. S/P Respiratory failure. Extubated. EF 60%. 2. HTN on Coreg 25 bid and hydralazine 25 bid 3. Acute renal failure. S/P stent by Dr. Walker 4. S/P Left BKJuan Manuel CROOK RN Subjective Subjective Alert in NAD. No CP or SOB. W[facility] Objective Last 24 Hour Vital Signs Date Time Temp Pulse Resp B/P (MAP) Pulse Ox O2 Delivery O2 Flow Rate FiO2 02/07/19 14:02 124/87 02/07/19 12:00 98.2 64 18 124/87 97 Room Air 02/07/19 08:59 97.8 02/07/19 08:29 78 124/83 02/07/19 08:00 97.8 78 20 124/83 97 Room Air 02/07/19 05:08 125/87 02/07/19 04:00 98.2 71 22 125/87 95 Room Air 02/07/19 00:00 98.1 65 20 139/87 95 Room Air 02/06/19 21:11 152/98 02/06/19 21:11 69 152/98 02/06/19 20:00 97.9 69 17 152/98 95 Room Air 02/06/19 16:00 97.7 59 18 142/82 95 Room Air Intake and Output 02/06/19 02/07/19 19:00 07:00 Intake Total 450 ml Balance 450 ml IV Total 450 ml Objective General Appearance: No acute distress HEENT: No JVD. Respiratory/Chest: lungs clear Cardiovascular: RRR Abdomen: soft, non tender Extremities: no edema, other - left Justo Sinclair MD Feb 07, 2019 14:20
[2019-02-07] MEDS ORDERED: D5 1/2NS 1000ml IV ONE (16:20)
--- NOTE | 2019-02-07 19:51 | NUR ---
HAND-OFF: Report given to Rosemarie Nava. Plan of care endorsed.
--- NOTE | 2019-02-07 20:01 | NUR ---
NURSE NOTES: PATIENT IN BED, ALERT TO NAME, PLACE, AND , MAKES NEEDS KNOWN. HAD COMPLAINTS OF PAIN, TRAMADOL PRN WAS GIVEN ORDERED. NO S/S RESPIRATORY DISTRESS NOTED. BED IN LOWEST POSITION, BED ALARM ON, CALL LIGHT WITHIN REACH. WILL CONTINUE TO MONITOR.
[2019-02-07] MEDS: Dyna-Hex 2% Top Sol 2oz TOPIC SCH (20:31)
--- NOTE | 2019-02-07 21:13 | General Progress Note ---
Assessment/Plan Problem List: (1) Acute renal failure ICD Codes: N17.9 - Acute kidney failure, unspecified SNOMED: 63263989 Qualifiers: Qualified Codes: N17.9 - Acute kidney failure, unspecified (2) Respiratory failure ICD Codes: J96.90 - Respiratory failure, unspecified, unspecified whether with hypoxia or hypercapnia SNOMED: 058683273 Qualifiers: Qualified Codes: J96.01 - Acute respiratory failure with hypoxia; J96.02 - Acute respiratory failure with hypercapnia (3) UTI (urinary tract infection) ICD Codes: N39.0 - Urinary tract infection, site not specified SNOMED: 33499566 Qualifiers: Qualified Codes: N39.0 - Urinary tract infection, site not specified (4) Schizophrenia ICD Codes: F20.9 - Schizophrenia, unspecified SNOMED: 19972811 (5) HTN (hypertension) ICD Codes: I10 - Essential (primary) hypertension SNOMED: 92491749 (6) Leukocytosis ICD Codes: D72.829 - Elevated white blood cell count, unspecified SNOMED: 573132575, 408432993 Status: progressing Assessment/Plan: nac not hypoxic afebrile no n/v/d uti respiratory insuff Subjective ROS Limited/Unobtainable: Yes Allergies: Coded Allergies: Grits (Unverified Allergy, Unknown, 07/06/17) [place] (Unverified Allergy, Unknown, 07/06/17) Objective Last 24 Hour Vital Signs Date Time Temp Pulse Resp B/P (MAP) Pulse Ox O2 Delivery O2 Flow Rate FiO2 02/07/19 20:31 63 153/92 02/07/19 20:21 98.0 02/07/19 16:00 98.0 64 18 18/114 97 Room Air 02/07/19 14:02 124/87 02/07/19 12:00 98.2 64 18 124/87 97 Room Air 02/07/19 08:29 78 124/83 02/07/19 08:00 97.8 78 20 124/83 97 Room Air 02/07/19 05:08 125/87 02/07/19 04:00 98.2 71 22 125/87 95 Room Air 02/07/19 00:00 98.1 65 20 139/87 95 Room Air Intake and Output 02/06/19 02/07/19 18:59 06:59 Intake Total 450 ml Balance 450 ml IV Total 450 ml Height (Feet): 5 Height (Inches): 4.00 Weight (Pounds): 197 Respiratory/Chest: lungs clear Abdomen: soft Isela Rubio MD Feb 07, 2019 21:12
--- NOTE | 2019-02-07 23:44 | General Progress Note ---
Assessment/Plan Status: progressing Assessment/Plan: Assessment - Resolved N/V - Renal failure - Anemia - CPS - HTN Recommendations - po as tolerated - follow labs - elevatd HOB Subjective Allergies: Coded Allergies: Grits (Unverified Allergy, Unknown, 07/06/17) [place] (Unverified Allergy, Unknown, 07/06/17) Subjective feels better no further vomiting tolerating PO Objective Last 24 Hour Vital Signs Date Time Temp Pulse Resp B/P (MAP) Pulse Ox O2 Delivery O2 Flow Rate FiO2 02/07/19 22:04 61 104/67 02/07/19 22:00 104/67 02/07/19 20:31 63 153/92 02/07/19 20:21 98.0 02/07/19 20:00 97.0 63 18 153/92 97 Room Air 02/07/19 16:00 98.0 64 18 18/114 97 Room Air 02/07/19 14:02 124/87 02/07/19 12:00 98.2 64 18 124/87 97 Room Air 02/07/19 08:29 78 124/83 02/07/19 08:00 97.8 78 20 124/83 97 Room Air 02/07/19 05:08 125/87 02/07/19 04:00 98.2 71 22 125/87 95 Room Air 02/07/19 00:00 98.1 65 20 139/87 95 Room Air Intake and Output 02/06/19 02/07/19 18:59 06:59 Intake Total 450 ml Balance 450 ml IV Total 450 ml Height (Feet): 5 Height (Inches): 4.00 Weight (Pounds): 197 Objective obese AA woman NCAT supple CTA RRR abd soft OBese non edema Landon Walls MD Feb 07, 2019 23:44
[2019-02-08] VITALS: BP 116/62
[2019-02-08 04:54] VITALS: BP 131/87
[2019-02-08] MEDS: HydrALAZINE 25mg tab ORAL SCH ×3 (05:37→21:17)
[2019-02-08 05:54] LABS: EOSINOPHILS % (AUTO) 4.1 % (0.0-3.0); HEMATOCRIT 35.3 % (37.0-47.0); HEMOGLOBIN 12.1 G/DL (12.0-16.0); MEAN CORPUSCULAR VOLUME 94 FL (80-99); MONOCYTES % (AUTO) 12.7 % (1.0-10.0); NEUTROPHILS % (AUTO) 54.2 % (45.0-75.0); PLATELET COUNT 231 K/UL (150-450); RED BLOOD COUNT 3.76 M/UL (4.20-5.40); RED CELL DISTRIBUTION WIDTH 11.7 % (11.6-14.8); WHITE BLOOD COUNT 10.2 K/UL (4.8-10.8)
[2019-02-08 05:59] LABS: ALANINE AMINOTRANSFERASE 18 U/L (12-78); ALBUMIN 3.5 G/DL (3.4-5.0); ALBUMIN/GLOBULIN RATIO 0.8 (1.0-2.7); ALKALINE PHOSPHATASE 75 U/L (46-116); ANION GAP 2 mmol/L (5-15); ASPARTATE AMINO TRANSFERASE 15 U/L (15-37); BILIRUBIN,TOTAL 0.6 MG/DL (0.2-1.0); BLOOD UREA NITROGEN 37 mg/dL (7-18); CARBON DIOXIDE 35 MMOL/L (21-32); CHLORIDE 99 MMOL/L (98-107); CREATININE 1.5 MG/DL (0.55-1.30); PHOSPHORUS 3.9 MG/DL (2.5-4.9); POTASSIUM 4.4 MMOL/L (3.5-5.1); SODIUM 136 MMOL/L (136-145)
--- NOTE | 2019-02-08 07:09 | NUR ---
HAND-OFF: Report given to HAILY ALARCON RN. PATIENT IN STABLE CONDITION.
--- NOTE | 2019-02-08 07:10 | NUR ---
NURSE NOTES: Received patient asleep. No SOB of cardiac distress. PICC line intact and patent, no s/s of infection, dressing intact. FC intact, draining yellow urine. HOB elevated. Bed locked in lowest position. Will continue plan of care.
[2019-02-08 07:34] VITALS: BP 118/76
--- NOTE | 2019-02-08 08:30 | Cardiac Electrophysiology PN ---
Assessment/Plan Assessment/Plan 1. S/P Respiratory failure. Extubated. EF 60%. 2. HTN on Coreg 25 bid and hydralazine 25 bid 3. Acute renal failure. S/P stent by Dr. Walker 4. S/P Left BKA 5. Seizure?. FU Dr. Quesada. Repeat EEG DW RN Subjective Subjective Alert in NAD. No CP or SOB. No events Objective Last 24 Hour Vital Signs Date Time Temp Pulse Resp B/P (MAP) Pulse Ox O2 Delivery O2 Flow Rate FiO2 02/08/19 07:34 118/76 02/08/19 07:28 97.9 64 16 95 Room Air 02/08/19 05:37 131/87 02/08/19 04:54 97.5 67 18 131/87 95 Room Air 02/08/19 00:00 98.1 69 18 116/62 95 Room Air 02/07/19 22:04 61 104/67 02/07/19 22:00 104/67 02/07/19 21:00 Room Air Room Air 02/07/19 20:31 63 153/92 02/07/19 20:21 98.0 02/07/19 20:00 97.0 63 18 153/92 97 Room Air 02/07/19 16:00 98.0 64 18 18/114 97 Room Air 02/07/19 14:02 124/87 02/07/19 12:00 98.2 64 18 124/87 97 Room Air 02/07/19 08:29 78 124/83 Intake and Output 02/07/19 02/08/19 19:00 07:00 Intake Total 1170 ml Output Total 2000 ml 500 ml Balance -830 ml -500 ml Intake Oral 1170 ml Output Urine Total 2000 ml 500 ml # Voids 2 Laboratory Tests Test 02/08/19 04:00 White Blood Count 10.2 K/UL (4.8-10.8) Red Blood Count 3.76 M/UL (4.20-5.40) L Hemoglobin 12.1 G/DL (12.0-16.0) Hematocrit 35.3 % (37.0-47.0) L Mean Corpuscular Volume 94 FL (80-99) Mean Corpuscular Hemoglobin 32.2 PG (27.0-31.0) H Mean Corpuscular Hemoglobin Concent 34.2 G/DL (32.0-36.0) Red Cell Distribution Width 11.7 % (11.6-14.8) Platelet Count 231 K/UL (150-450) Mean Platelet Volume 7.0 FL (6.5-10.1) Neutrophils (%) (Auto) 54.2 % (45.0-75.0) Lymphocytes (%) (Auto) 28.0 % (20.0-45.0) Monocytes (%) (Auto) 12.7 % (1.0-10.0) H Eosinophils (%) (Auto) 4.1 % (0.0-3.0) H Basophils (%) (Auto) 1.0 % (0.0-2.0) Sodium Level 136 MMOL/L (136-145) Potassium Level 4.4 MMOL/L (3.5-5.1) Chloride Level 99 MMOL/L (98-107) Carbon Dioxide Level 35 MMOL/L (21-32) H Anion Gap 2 mmol/L (5-15) L Blood Urea Nitrogen 37 mg/dL (7-18) H Creatinine 1.5 MG/DL (0.55-1.30) H Estimat Glomerular Filtration Rate 35.8 mL/min (>60) Glucose Level 98 MG/DL (74-106) Calcium Level 10.0 MG/DL (8.5-10.1) Phosphorus Level 3.9 MG/DL (2.5-4.9) Magnesium Level 1.8 MG/DL (1.8-2.4) Total Bilirubin 0.6 MG/DL (0.2-1.0) Aspartate Amino Transf (AST/SGOT) 15 U/L (15-37) Alanine Aminotransferase (ALT/SGPT) 18 U/L (12-78) Alkaline Phosphatase 75 U/L (46-116) C-Reactive Protein, Quantitative 2.2 mg/dL (0.00-0.90) H Pro-B-Type Natriuretic Peptide 117 pg/mL (0-125) Total Protein 8.1 G/DL (6.4-8.2) Albumin 3.5 G/DL (3.4-5.0) Globulin 4.6 g/dL Albumin/Globulin Ratio 0.8 (1.0-2.7) L Objective General Appearance: No acute distress HEENT: No JVD. Respiratory/Chest: lungs clear Cardiovascular: RRR Abdomen: soft, non tender Extremities: no edema, other - left BKA Justo Rosales MD Feb 08, 2019 08:30
[2019-02-08] MEDS: Docusate 250mg cap ORAL SCH (09:29)
[2019-02-08] MEDS: traMADol 50mg tab ORAL PRN (09:30)
[2019-02-08] MEDS: Carvedilol 25mg Tab ORAL SCH ×2 (09:32→20:27)
[2019-02-08] MEDS: Heparin 5000 units/ml inj SUBQ SCH ×2 (09:38→20:28)
[2019-02-08 11:30] VITALS: BP 133/81
[2019-02-08] MEDS: Hydromorphone 0.5mg/0.5ml inj IVP PRN ×3 (11:46→21:17)
--- NOTE | 2019-02-08 12:11 | NUR ---
RD ASSESSMENT & RECOMMENDATIONS SEE CARE ACTIVITY FOR COMPLETE ASSESSMENT DAILY ESTIMATED NEEDS: Needs based on Critical Care, renal; 65.7 kg adj 22-28 kcals/kg 6088-8827 total kcals 1.0-1.5 g protein/kg 66-99 g total protein 25-30 mL/kg 6660-7548 total fluid mLs NUTRITION DIAGNOSIS: Swallowing difficulty r/t respiratory failure AEB pt orally intubated, OGT in place, now extubated, on renal pureed moist, nectar-thick liquid diet per QUALIFICATION ENGINEER recs-> now soft easy chew. CURRENT DIET:Regular soft easy chew PO DIET RECOMMENDATIONS: REC Low Na/ Low fat, texture per QUALIFICATION ENGINEER ADDITIONAL RECOMMENDATIONS: 1) Monitor lytes and BG-> need for dietary restriction 2) Maintain calibrated bed scale wt. 3) F/up w/ bowel regimen; last bm 02/06 4) Monitor tolerance to diet/ po intake- need for supplements PO intake is variable, Rec Ensure x1 daily (Nepro w/ elevated lytes) . .
--- NOTE | 2019-02-08 12:19 | Infectious Diseases Prog Note ---
Assessment/Plan Assessment/Plan A; Sepsis Positive blood culture, contamination Acute renal failure improving Acute respiratory failure, resolved Hydronephrosis Obstructive uropathy Schizophrenia P; Observe off antibiotic Will f/u CBC Subjective ROS Limited/Unobtainable: Yes Constitutional: Reports: fever Allergies: Coded Allergies: Grits (Unverified Allergy, Unknown, 07/06/17) [place] (Unverified Allergy, Unknown, 07/06/17) Objective Vital Signs Last 24 Hour Vital Signs Date Time Temp Pulse Resp B/P (MAP) Pulse Ox O2 Delivery O2 Flow Rate FiO2 02/08/19 11:30 97.7 68 16 133/81 94 Room Air 02/08/19 09:32 64 118/76 02/08/19 08:35 96 Room Air 21 02/08/19 07:34 118/76 02/08/19 07:28 97.9 64 16 95 Room Air 02/08/19 05:37 131/87 02/08/19 04:54 97.5 67 18 131/87 95 Room Air 02/08/19 00:00 98.1 69 18 116/62 95 Room Air 02/07/19 22:04 61 104/67 02/07/19 22:00 104/67 02/07/19 21:00 Room Air Room Air 02/07/19 20:31 63 153/92 02/07/19 20:21 98.0 02/07/19 20:00 97.0 63 18 153/92 97 Room Air 02/07/19 16:00 98.0 64 18 18/114 97 Room Air 02/07/19 14:02 124/87 Height (Feet): 5 Height (Inches): 4.00 Weight (Pounds): 196 General Appearance: no acute distress HEENT: mucous membranes moist Cardiovascular: normal rate Abdomen: soft, non tender Extremities: no edema, other - left BKA Neurologic/Psychiatric: other - sleeping Laboratory Tests Test 02/08/19 04:00 White Blood Count 10.2 K/UL (4.8-10.8) Red Blood Count 3.76 M/UL (4.20-5.40) L Hemoglobin 12.1 G/DL (12.0-16.0) Hematocrit 35.3 % (37.0-47.0) L Mean Corpuscular Volume 94 FL (80-99) Mean Corpuscular Hemoglobin 32.2 PG (27.0-31.0) H Mean Corpuscular Hemoglobin Concent 34.2 G/DL (32.0-36.0) Red Cell Distribution Width 11.7 % (11.6-14.8) Platelet Count 231 K/UL (150-450) Mean Platelet Volume 7.0 FL (6.5-10.1) Neutrophils (%) (Auto) 54.2 % (45.0-75.0) Lymphocytes (%) (Auto) 28.0 % (20.0-45.0) Monocytes (%) (Auto) 12.7 % (1.0-10.0) H Eosinophils (%) (Auto) 4.1 % (0.0-3.0) H Basophils (%) (Auto) 1.0 % (0.0-2.0) Sodium Level 136 MMOL/L (136-145) Potassium Level 4.4 MMOL/L (3.5-5.1) Chloride Level 99 MMOL/L (98-107) Carbon Dioxide Level 35 MMOL/L (21-32) H Anion Gap 2 mmol/L (5-15) L Blood Urea Nitrogen 37 mg/dL (7-18) H Creatinine 1.5 MG/DL (0.55-1.30) H Estimat Glomerular Filtration Rate 35.8 mL/min (>60) Glucose Level 98 MG/DL (74-106) Calcium Level 10.0 MG/DL (8.5-10.1) Phosphorus Level 3.9 MG/DL (2.5-4.9) Magnesium Level 1.8 MG/DL (1.8-2.4) Total Bilirubin 0.6 MG/DL (0.2-1.0) Aspartate Amino Transf (AST/SGOT) 15 U/L (15-37) Alanine Aminotransferase (ALT/SGPT) 18 U/L (12-78) Alkaline Phosphatase 75 U/L (46-116) C-Reactive Protein, Quantitative 2.2 mg/dL (0.00-0.90) H Pro-B-Type Natriuretic Peptide 117 pg/mL (0-125) Total Protein 8.1 G/DL (6.4-8.2) Albumin 3.5 G/DL (3.4-5.0) Globulin 4.6 g/dL Albumin/Globulin Ratio 0.8 (1.0-2.7) L Current Medications Medications (Trade) Dose Ordered Sig/William Route PRN Reason Start Time Stop Time Status Last Admin Dose Admin Acetaminophen (Tylenol) 650 mg Q6H PRN ORAL Fever (temp>100.5F) 02/06/19 00:14 03/06/19 00:13 Bisacodyl (Dulcolax) 10 mg DAILYPRN PRN RECTAL Constipation 02/06/19 00:14 03/06/19 00:13 Carvedilol (Coreg) 25 mg EVERY 12 HOURS ORAL 02/06/19 09:00 03/04/19 10:29 02/08/19 09:32 Chlorhexidine Gluconate (Genevieve-Hex 2%) 1 applic DAILY@1999 TOPIC 02/06/19 20:00 02/28/19 19:59 02/07/19 20:31 Clonazepam (KlonoPIN) 1 mg Q8HR ORAL 02/06/19 06:00 02/12/19 13:59 02/08/19 05:36 Dextrose (Dextrose 50%) 25 ml Q30M PRN IV Hypoglycemia 02/06/19 00:30 02/28/19 18:29 Dextrose (Dextrose 50%) 50 ml Q30M PRN IV Hypoglycemia 02/06/19 00:30 02/28/19 18:29 Docusate Sodium (Colace) 250 mg DAILY ORAL 02/06/19 09:00 03/01/19 08:59 02/08/19 09:29 Heparin Sodium (Porcine) (Heparin 5000 units/ml) 5,000 units EVERY 12 HOURS SUBQ 02/06/19 09:00 03/01/19 08:59 02/08/19 09:38 Hydralazine HCl (Apresoline) 25 mg Q8HR ORAL 02/06/19 06:00 03/04/19 11:59 02/08/19 05:37 Hydromorphone HCl (Dilaudid) 0.5 mg Q4H PRN IVP For break through Pain 02/06/19 14:30 02/11/19 00:16 02/08/19 11:46 Ondansetron HCl (Zofran) 4 mg Q6H PRN IVP Nausea & Vomiting 02/06/19 09:51 03/08/19 09:50 02/06/19 15:26 Pantoprazole (Protonix) 40 mg EVERY 12 HOURS ORAL 02/06/19 09:00 03/05/19 20:59 02/08/19 09:29 Tramadol HCl (Ultram) 50 mg Q6H PRN ORAL For Pain 02/06/19 14:30 02/13/19 14:29 02/08/19 09:30 Jose Solis MD Feb 08, 2019 12:19
--- NOTE | 2019-02-08 14:30 | Nephrology Progress Note ---
Assessment/Plan Problem List: (1) Acute renal failure Assessment: Cr lowering (2) Respiratory failure (3) HTN (hypertension) (4) Schizophrenia (5) Hydronephrosis Assessment Acute on Chronic Renal Failure- Cr lowering ? kidney mass Right hydronephrosis Ventilator Dependent Respiratory failure Left lower lobe pulmonary infiltrate Urinary tract infection ESBL UTI from half-way Dehydration Seizure disorder on Clonazepam and Gabapentin Schizophrenia Hypertension Obesity Plan DC IV resume tramadol for pain Adjust BP meds adjust electrolytes patient had right kidney stent Off Lasix adjust all mind altering meds avoid nephrotoxics monitor renal parametes per orders Subjective ROS Limited/Unobtainable: No Constitutional: Reports: malaise Objective Objective Last 24 Hour Vital Signs Date Time Temp Pulse Resp B/P (MAP) Pulse Ox O2 Delivery O2 Flow Rate FiO2 02/08/19 11:30 97.7 68 16 133/81 94 Room Air 02/08/19 09:32 64 118/76 02/08/19 08:35 96 Room Air 21 02/08/19 07:34 118/76 02/08/19 07:28 97.9 64 16 95 Room Air 02/08/19 05:37 131/87 02/08/19 04:54 97.5 67 18 131/87 95 Room Air 02/08/19 00:00 98.1 69 18 116/62 95 Room Air 02/07/19 22:04 61 104/67 02/07/19 22:00 104/67 02/07/19 21:00 Room Air Room Air 02/07/19 20:31 63 153/92 02/07/19 20:21 98.0 02/07/19 20:00 97.0 63 18 153/92 97 Room Air 02/07/19 16:00 98.0 64 18 18/114 97 Room Air Intake and Output 02/07/19 02/08/19 19:00 07:00 Intake Total 1170 ml Output Total 2000 ml 500 ml Balance -830 ml -500 ml Intake Oral 1170 ml Output Urine Total 2000 ml 500 ml # Voids 2 Laboratory Tests 02/08/19 04:00: White Blood Count 10.2, Red Blood Count 3.76L, Hemoglobin 12.1, Hematocrit 35.3L , Mean Corpuscular Volume 94, Mean Corpuscular Hemoglobin 32.2H, Mean Corpuscular Hemoglobin Concent 34.2, Red Cell Distribution Width 11.7, Platelet Count 231, Mean Platelet Volume 7.0, Neutrophils (%) (Auto) 54.2, Lymphocytes (% ) (Auto) 28.0, Monocytes (%) (Auto) 12.7H, Eosinophils (%) (Auto) 4.1H, Basophils (%) (Auto) 1.0, Sodium Level 136, Potassium Level 4.4, Chloride Level 99, Carbon Dioxide Level 35H, Anion Gap 2L, Blood Urea Nitrogen 37H, Creatinine 1.5H, Estimat Glomerular Filtration Rate 35.8, Glucose Level 98, Calcium Level 10.0, Phosphorus Level 3.9, Magnesium Level 1.8, Total Bilirubin 0.6, Aspartate Amino Transf (AST/SGOT) 15, Alanine Aminotransferase (ALT/SGPT) 18, Alkaline Phosphatase 75, C-Reactive Protein, Quantitative 2.2H, Pro-B-Type Natriuretic Peptide 117, Total Protein 8.1, Albumin 3.5, Globulin 4.6, Albumin/Globulin Ratio 0.8L Height (Feet): 5 Height (Inches): 4.00 Weight (Pounds): 196 General Appearance: no apparent distress Objective no change Derrell Hatch MD Feb 08, 2019 14:30
[2019-02-08 16:00] VITALS: BP 130/87
--- NOTE | 2019-02-08 19:29 | NUR ---
HAND-OFF: Report given to Devyn.
--- NOTE | 2019-02-08 19:33 | Neurology Progress Note ---
Interim History Interim History Interim History Ms. Cole feels well. She is calm today. She is not exhibiting any flight of ideas today. She denies any new neurological symptoms. She has been seizure-free. She had her repeat EEG performed last night. She is delusional about leg being cut off yesterday. Review of Systems Neuro Review of Systems Benign. Objective Physical Exam Last Vital Signs Date Time Temp Pulse Resp B/P (MAP) Pulse Ox O2 Delivery O2 Flow Rate FiO2 02/08/19 15:00 133/81 02/08/19 11:30 97.7 68 16 94 Room Air 02/08/19 08:35 21 02/05/19 20:29 2.0 Laboratory Tests Test 02/08/19 04:00 White Blood Count 10.2 K/UL (4.8-10.8) Red Blood Count 3.76 M/UL (4.20-5.40) L Hemoglobin 12.1 G/DL (12.0-16.0) Hematocrit 35.3 % (37.0-47.0) L Mean Corpuscular Volume 94 FL (80-99) Mean Corpuscular Hemoglobin 32.2 PG (27.0-31.0) H Mean Corpuscular Hemoglobin Concent 34.2 G/DL (32.0-36.0) Red Cell Distribution Width 11.7 % (11.6-14.8) Platelet Count 231 K/UL (150-450) Mean Platelet Volume 7.0 FL (6.5-10.1) Neutrophils (%) (Auto) 54.2 % (45.0-75.0) Lymphocytes (%) (Auto) 28.0 % (20.0-45.0) Monocytes (%) (Auto) 12.7 % (1.0-10.0) H Eosinophils (%) (Auto) 4.1 % (0.0-3.0) H Basophils (%) (Auto) 1.0 % (0.0-2.0) Sodium Level 136 MMOL/L (136-145) Potassium Level 4.4 MMOL/L (3.5-5.1) Chloride Level 99 MMOL/L (98-107) Carbon Dioxide Level 35 MMOL/L (21-32) H Anion Gap 2 mmol/L (5-15) L Blood Urea Nitrogen 37 mg/dL (7-18) H Creatinine 1.5 MG/DL (0.55-1.30) H Estimat Glomerular Filtration Rate 35.8 mL/min (>60) Glucose Level 98 MG/DL (74-106) Calcium Level 10.0 MG/DL (8.5-10.1) Phosphorus Level 3.9 MG/DL (2.5-4.9) Magnesium Level 1.8 MG/DL (1.8-2.4) Total Bilirubin 0.6 MG/DL (0.2-1.0) Aspartate Amino Transf (AST/SGOT) 15 U/L (15-37) Alanine Aminotransferase (ALT/SGPT) 18 U/L (12-78) Alkaline Phosphatase 75 U/L (46-116) C-Reactive Protein, Quantitative 2.2 mg/dL (0.00-0.90) H Pro-B-Type Natriuretic Peptide 117 pg/mL (0-125) Total Protein 8.1 G/DL (6.4-8.2) Albumin 3.5 G/DL (3.4-5.0) Globulin 4.6 g/dL Albumin/Globulin Ratio 0.8 (1.0-2.7) L Neurologic Exam Objective PHYSICAL EXAMINATION: GENERAL: She is a well-developed, well-nourished, obese lady, lying in bed, in no acute distress. HEAD: Normocephalic and atraumatic. EENT: Benign. NECK: No neck rigidity was observed. NEUROLOGICAL EXAMINATION: MENTAL STATUS EXAMINATION: She was awake and alert. She was oriented to [facility], [facility] and January 2019. She was able to remember Presidents Trump and Obama only. Her mathematical skills were impaired. Her visuospatial function was also impaired. SPEECH: She had no dysarthria. LANGUAGE: She had a mild anomia. CRANIAL NERVE EXAMINATION: II: She was able to count fingers accurately. III, IV, : External ocular movements were full. The pupils were 3 mm in diameter and reactive sluggishly to light. V: She had normal facial sensations, and the temporalis masseters and pterygoids functions normally. VII: She had normal facial expressions and no facial asymmetry. VIII: She was able to hear well and had no nystagmus. IX: Her palate moved symmetrically on phonation. X: Her voice was hoarse. XI: The sternocleidomastoids and trapezii functioned well XII: The tongue was in the midline. MOTOR SYSTEM: The tone was normal in all four extremities. Examination of muscle mass revealed no focal wasting. She did have left below-knee amputation. She moved all 4 extremities on command. The strength was relatively good in her upper extremities but diminished in the lower extremities. Her effort was poor. SENSORY EXAMINATION: Light touch was symmetrical bilaterally. REFLEXES: 0 at the biceps, triceps, brachioradialis, and knees, 0 at the right ankle. The plantar response was flexor on the right side. COORDINATION: She performed well on [id number] testing. STANCE & GAIT: Could not be tested. Impression/Recommendations Diagnostic Impression 1. Ms. Bridget Cole is a 58-year-old, right-handed, lady, with a past history of a psychiatric illness, a seizure disorder, left below-knee amputation , and general debility as a result of which she lives in a jail, who on 01/29/2019 was noted to have an altered mental state related to hypoxia associated with a pneumonia, urinary tract infection, and sepsis. Since then, she has been hospitalized and has been treated for these problems. 2. She feels well. She is calm today. She is not exhibiting any flight of ideas today. She denies any new neurological symptoms. She has been seizure- free. She had her repeat EEG performed last night. She is delusional about leg being cut off yesterday. 3. With regards to her seizure disorder she has had seizures for numerous years. When she has one of her seizures she passes out and can pass out for an entire week. She denies any abnormal movements, auras, or postictal neurological dysfunction. She is unable to tell me what medicines she takes for her seizures. She cannot tell me what the frequency of her seizures is. 4. On neurological examination, at this time, she is awake and alert. She is well oriented except for the exact date. She is able to remember Presidents Trump and Obama only. Her mathematical skills are impaired. Her visuospatial function is also impaired. She has no dysarthria. She does have a mild anomia for low-frequency words. She does not demonstrate any focal findings on her cranial nerve, motor, or sensory examination. However her lower extremities are weaker than the upper extremities. Her deep tendon reflexes are absent but her plantar response is flexor on the right side. 5. Her latest laboratory data on my initial evaluation revealed that she still has a leukocytosis with WBC count of 12,000. She is anemic with a hemoglobin of 11.2 G. Her chemistry panel reveals a BUN elevated at 60, a creatinine elevated at 5.0, glucose elevated at 123. Her B12 level is normal at 443. Her folate is normal at 17.9. Her TSH is normal at 0.548. Her proBNP is elevated at 1450. Her latest blood gas performed on 01/29/2019 at 2100 hours reveals a pH of 7.42, pCO2 of 36, and a pO2 of 74. The Urinalysis revealed 3+leukocyte esterase, 15-20 red blood cells and white blood cells per high-power field. 6. CT scan of the brain performed on 01/29/2019 revealed atrophy and deep white matter changes. 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 7. 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 No interictal discharges were seen. 8. The EEG performed on 02/07/2019 was a mediocre quality EEG due to the fact that the double distance electrodes were utilized and only a single montage was utilized. However the EEG was normal in the awake state and no interictal discharges were seen. 9. The patient's history, neurological examination, laboratory data, and imaging studies are most consistent with a significant toxic metabolic encephalopathy related to sepsis associated with a urinary tract infection, pneumonia, associated hypoxia, and sedation with Versed. Her encephalopathy has improved. She was floridly psychotic a few days ago but is better today. She however continues to be delusional. 9. It is still unclear as to what type of seizure disorder the patient has. The description that she gave does not fit any specific seizure entity. In addition the EEG was normal. Recommendations 1. Continue present management. 2. Continue aggressive treatment of infectious processes. 3. Continue aggressive treatment of respiratory dysfunction. 4. Management for psychosis. 5. Observe. Errol Quesada M.D., M.S.P.H. Errol Quesada MD Feb 08, 2019 19:33
[2019-02-08 20:00] VITALS: BP 119/82
--- NOTE | 2019-02-08 20:00 | NUR ---
NURSE NOTES: Received patient is in bed, awake and alert x2. No signs of distress or SOB. C/o 11/06 pain, will administer pain medication per MD order. Rod in place and draining paula/yellow urine. PALMIRA PICC line intact and patent. Bed locked and in lowest position. Call light in reach. Side rails padded as seizure precaution. Will continue to monitor.
[2019-02-08] MEDS: Dyna-Hex 2% Top Sol 2oz TOPIC SCH (20:18)
--- NOTE | 2019-02-08 21:04 | General Progress Note ---
Assessment/Plan Problem List: (1) Acute renal failure ICD Codes: N17.9 - Acute kidney failure, unspecified SNOMED: 93709936 Qualifiers: Qualified Codes: N17.9 - Acute kidney failure, unspecified (2) Respiratory failure ICD Codes: J96.90 - Respiratory failure, unspecified, unspecified whether with hypoxia or hypercapnia SNOMED: 332085733 Qualifiers: Qualified Codes: J96.01 - Acute respiratory failure with hypoxia; J96.02 - Acute respiratory failure with hypercapnia (3) UTI (urinary tract infection) ICD Codes: N39.0 - Urinary tract infection, site not specified SNOMED: 29740369 Qualifiers: Qualified Codes: N39.0 - Urinary tract infection, site not specified (4) Schizophrenia ICD Codes: F20.9 - Schizophrenia, unspecified SNOMED: 00426258 (5) HTN (hypertension) ICD Codes: I10 - Essential (primary) hypertension SNOMED: 43532030 (6) Leukocytosis ICD Codes: D72.829 - Elevated white blood cell count, unspecified SNOMED: 741605929, 089998994 Assessment/Plan: no wheezing abx per id clinically improving dc planning uti respiratory insuff Subjective ROS Limited/Unobtainable: Yes Allergies: Coded Allergies: Grits (Unverified Allergy, Unknown, 07/06/17) [place] (Unverified Allergy, Unknown, 07/06/17) Objective Last 24 Hour Vital Signs Date Time Temp Pulse Resp B/P (MAP) Pulse Ox O2 Delivery O2 Flow Rate FiO2 02/08/19 20:27 70 130/87 02/08/19 16:00 98.6 70 16 130/87 96 Room Air 02/08/19 15:00 133/81 02/08/19 11:30 97.7 68 16 133/81 94 Room Air 02/08/19 09:32 64 118/76 02/08/19 08:35 96 Room Air 21 02/08/19 07:34 118/76 02/08/19 07:28 97.9 64 16 95 Room Air 02/08/19 05:37 131/87 02/08/19 04:54 97.5 67 18 131/87 95 Room Air 02/08/19 00:00 98.1 69 18 116/62 95 Room Air 02/07/19 22:04 61 104/67 02/07/19 22:00 104 Intake and Output 02/07/19 02/08/19 18:59 06:59 Intake Total 1170 ml Output Total 2000 ml 500 ml Balance -830 ml -500 ml Intake Oral 1170 ml Output Urine Total 2000 ml 500 ml # Voids 2 Laboratory Tests 02/08/19 04:00: White Blood Count 10.2, Red Blood Count 3.76L, Hemoglobin 12.1, Hematocrit 35.3L , Mean Corpuscular Volume 94, Mean Corpuscular Hemoglobin 32.2H, Mean Corpuscular Hemoglobin Concent 34.2, Red Cell Distribution Width 11.7, Platelet Count 231, Mean Platelet Volume 7.0, Neutrophils (%) (Auto) 54.2, Lymphocytes (% ) (Auto) 28.0, Monocytes (%) (Auto) 12.7H, Eosinophils (%) (Auto) 4.1H, Basophils (%) (Auto) 1.0, Sodium Level 136, Potassium Level 4.4, Chloride Level 99, Carbon Dioxide Level 35H, Anion Gap 2L, Blood Urea Nitrogen 37H, Creatinine 1.5H, Estimat Glomerular Filtration Rate 35.8, Glucose Level 98, Calcium Level 10.0, Phosphorus Level 3.9, Magnesium Level 1.8, Total Bilirubin 0.6, Aspartate Amino Transf (AST/SGOT) 15, Alanine Aminotransferase (ALT/SGPT) 18, Alkaline Phosphatase 75, C-Reactive Protein, Quantitative 2.2H, Pro-B-Type Natriuretic Peptide 117, Total Protein 8.1, Albumin 3.5, Globulin 4.6, Albumin/Globulin Ratio 0.8L Height (Feet): 5 Height (Inches): 4.00 Weight (Pounds): 196 Cardiovascular: normal rate Respiratory/Chest: lungs clear Abdomen: soft Isela Rubio MD Feb 08, 2019 21:04
--- NOTE | 2019-02-08 21:36 | General Progress Note ---
Assessment/Plan Assessment/Plan: Assessment - Resolved N/V - Renal failure - Anemia - CPS - HTN Recommendations - po as tolerated - follow labs - elevated HOB Subjective Allergies: Coded Allergies: Grits (Unverified Allergy, Unknown, 07/06/17) [place] (Unverified Allergy, Unknown, 07/06/17) Subjective feels better no further vomiting tolerating PO Objective Last 24 Hour Vital Signs Date Time Temp Pulse Resp B/P (MAP) Pulse Ox O2 Delivery O2 Flow Rate FiO2 02/08/19 21:17 130/87 02/08/19 20:27 70 130/87 02/08/19 16:00 98.6 70 16 130/87 96 Room Air 02/08/19 15:00 133/81 02/08/19 11:30 97.7 68 16 133/81 94 Room Air 02/08/19 09:32 64 118/76 02/08/19 08:35 96 Room Air 21 02/08/19 07:34 118/76 02/08/19 07:28 97.9 64 16 95 Room Air 02/08/19 05:37 131/87 02/08/19 04:54 97.5 67 18 131/87 95 Room Air 02/08/19 00:00 98.1 69 18 116/62 95 Room Air 02/07/19 22:04 61 104/67 02/07/19 22:00 104/67 Intake and Output 02/07/19 02/08/19 18:59 06:59 Intake Total 1170 ml Output Total 2000 ml 500 ml Balance -830 ml -500 ml Intake Oral 1170 ml Output Urine Total 2000 ml 500 ml # Voids 2 Laboratory Tests 02/08/19 04:00: White Blood Count 10.2, Red Blood Count 3.76L, Hemoglobin 12.1, Hematocrit 35.3L , Mean Corpuscular Volume 94, Mean Corpuscular Hemoglobin 32.2H, Mean Corpuscular Hemoglobin Concent 34.2, Red Cell Distribution Width 11.7, Platelet Count 231, Mean Platelet Volume 7.0, Neutrophils (%) (Auto) 54.2, Lymphocytes (% ) (Auto) 28.0, Monocytes (%) (Auto) 12.7H, Eosinophils (%) (Auto) 4.1H, Basophils (%) (Auto) 1.0, Sodium Level 136, Potassium Level 4.4, Chloride Level 99, Carbon Dioxide Level 35H, Anion Gap 2L, Blood Urea Nitrogen 37H, Creatinine 1.5H, Estimat Glomerular Filtration Rate 35.8, Glucose Level 98, Calcium Level 10.0, Phosphorus Level 3.9, Magnesium Level 1.8, Total Bilirubin 0.6, Aspartate Amino Transf (AST/SGOT) 15, Alanine Aminotransferase (ALT/SGPT) 18, Alkaline Phosphatase 75, C-Reactive Protein, Quantitative 2.2H, Pro-B-Type Natriuretic Peptide 117, Total Protein 8.1, Albumin 3.5, Globulin 4.6, Albumin/Globulin Ratio 0.8L Height (Feet): 5 Height (Inches): 4.00 Weight (Pounds): 196 Objective obese AA woman NCAT supple CTA RRR abd soft OBese non edema Landon Walls MD Feb 08, 2019 21:36
--- NOTE | 2019-02-08 22:19 | Pulmonolgy Critical Care Note ---
Critical Care - Asmt/Plan Assessment/Plan: Pulmonary Critical Care Progress Note HPI The patient is a 58 year old woman admitted with worsening shortness of breath, respiratory failure requiring intubation, pneumonia. Noted to have evidence of UTI in addition to pneumonia LLL Per chart review h/o Seizure disorder, Left Kidney Mass, Hydronephrosis, Hypertension, HHD Past Medical History: ESBL UTI from half-way Leukocytosis likely related to infection Left kidney mass Left hydronephrosis Anxiety Dehydration Seizure disorder on Clonazepam and Gabapentin Weakness Schizophrenia Hypertension Obesity PSH: Left BKA Allergies: Grits (Unverified Allergy, Unknown, 07/06/17) [place] (Unverified Allergy, Unknown, 07/06/17) stable pulmonary status, on RA, much improved SP Ureteric stent previously Being observed off AB Physical Exam Vital Signs Noted General Appearance: Awake Head: normocephalic, atraumatic, ENT: moist mucus membranes Neck: No LN Respiratory: CTAB Cardiovascular: regular rate, rhythm, HS1, HS2, no edema Gastrointestinal: decreased bowel sounds, overweight, abrasions abdominal wall Musculoskeletal: moving all limbs, BKA L Neurologic: Awake, interactive, no focal signs Skin: warm/dry, Impression: Previous Ventilator Dependent Respiratory failure now extubated Left lower lobe pulmonary infiltrate Urinary tract infection ESBL UTI from half-way Acute on Chronic Renal Failure Left kidney mass Left hydronephrosis Anxiety Dehydration Seizure disorder on Clonazepam and Gabapentin Weakness Schizophrenia Hypertension Obesity Plan O2 PRN Antibiotics DC per ID Aspiration/Seizure precautions HHN PPX [employer] medications EKG: Rate: normal Rhythm: NSR ST Segments: no acute changes Chest X-Ray: left effusion, no pneumothorax, possible L sided infiltrate Critical Care - Objective Last 24 Hour Vital Signs Date Time Temp Pulse Resp B/P (MAP) Pulse Ox O2 Delivery O2 Flow Rate FiO2 02/08/19 21:17 130/87 02/08/19 20:27 70 130/87 02/08/19 16:00 98.6 70 16 130/87 96 Room Air 02/08/19 15:00 133/81 02/08/19 11:30 97.7 68 16 133/81 94 Room Air 02/08/19 09:32 64 118/76 02/08/19 08:35 96 Room Air 21 02/08/19 07:34 118/76 02/08/19 07:28 97.9 64 16 95 Room Air 02/08/19 05:37 131/87 02/08/19 04:54 97.5 67 18 131/87 95 Room Air 02/08/19 00:00 98.1 69 18 116/62 95 Room Air Accucheck: 83 Critical Care - Subjective ROS Limited/Unobtainable: No FI02: 21 Vent Support Breath Rate: 16 Vent Support Mode: AC Vent Tidal Volume: 550 Sputum Amount: None PEEP: 5.0 PIP: 25 Tube Feeding Amount: 30 I&O: Intake and Output 02/07/19 02/08/19 18:59 06:59 Intake Total 1170 ml Output Total 2000 ml 500 ml Balance -830 ml -500 ml Intake Oral 1170 ml Output Urine Total 2000 ml 500 ml # Voids 2 ET-Tube: 7.5 ET Position: 23 Gabino Smith MD Feb 08, 2019 22:19
--- NOTE | 2019-02-08 23:45 | Electroencephalogram ---
DATE OF PROCEDURE: 02/07/2019 REQUESTING PHYSICIAN: Isela Rubio M.D. READING PHYSICIAN: Errol Quesada M.D. PROCEDURE PERFORMED: Electroencephalogram. HISTORY: This EEG was performed on a 58-year-old lady with a history of multiple medical problems and in addition, a psychosis and a seizure disorder. The purpose of this EEG was to better delineate the type of seizure disorder. TECHNICAL NOTE: This EEG was performed on a [employer] with electrodes placed on the scalp according to the International 10-20 system. A single scalp to scalp montage was used with double distance electrodes. The EEG was of technically mediocre quality due to the fact that double distance electrodes were used and only a single montage was utilized. OBSERVATIONS: In the reportedly awake state, the background activity consisted of 10-11 Hz, posteriorly predominant, well-developed, alpha waveforms, which attenuated on eye opening. A moderate amount of superimposed beta activity was also seen. No focal abnormalities or epileptiform discharges were noted. IMPRESSION: Normal awake EEG. Errol Quesada M.D., M.S.P.H. DR: DEO JOB#: [id number] MTDD
[2019-02-09 01:20] VITALS: BP 113/85
[2019-02-09] MEDS: Hydromorphone 0.5mg/0.5ml inj IVP PRN ×4 (01:54→17:19)
[2019-02-09 04:00] VITALS: BP 129/82
[2019-02-09] MEDS: traMADol 50mg tab ORAL PRN (04:48)
[2019-02-09] MEDS: HydrALAZINE 25mg tab ORAL SCH ×2 (05:25→13:29)
--- NOTE | 2019-02-09 07:07 | NUR ---
HAND-OFF: Report given to GUZMAN Osborne.
[2019-02-09 07:23] VITALS: BP 108/71
--- NOTE | 2019-02-09 08:25 | General Progress Note ---
Assessment/Plan Problem List: (1) Acute renal failure ICD Codes: N17.9 - Acute kidney failure, unspecified SNOMED: 29482141 Qualifiers: Qualified Codes: N17.9 - Acute kidney failure, unspecified (2) Respiratory failure ICD Codes: J96.90 - Respiratory failure, unspecified, unspecified whether with hypoxia or hypercapnia SNOMED: 196796474 Qualifiers: Qualified Codes: J96.01 - Acute respiratory failure with hypoxia; J96.02 - Acute respiratory failure with hypercapnia (3) UTI (urinary tract infection) ICD Codes: N39.0 - Urinary tract infection, site not specified SNOMED: 41278434 Qualifiers: Qualified Codes: N39.0 - Urinary tract infection, site not specified (4) Schizophrenia ICD Codes: F20.9 - Schizophrenia, unspecified SNOMED: 78072285 (5) HTN (hypertension) ICD Codes: I10 - Essential (primary) hypertension SNOMED: 49764791 (6) Leukocytosis ICD Codes: D72.829 - Elevated white blood cell count, unspecified SNOMED: 998087913, 306252410 Status: progressing Assessment/Plan: mild cough resp insuff uti dc to snf see dc summary for details Subjective ROS Limited/Unobtainable: Yes Allergies: Coded Allergies: Grits (Unverified Allergy, Unknown, 07/06/17) [place] (Unverified Allergy, Unknown, 07/06/17) Objective Last 24 Hour Vital Signs Date Time Temp Pulse Resp B/P (MAP) Pulse Ox O2 Delivery O2 Flow Rate FiO2 02/09/19 07:23 97.3 60 14 108/71 98 Room Air 02/09/19 05:25 129/82 02/09/19 05:22 98.3 02/09/19 04:00 97.9 68 18 129/82 96 Room Air 02/09/19 02:24 98.3 02/09/19 01:20 98.3 62 18 113/85 96 Room Air 02/08/19 21:17 130/87 02/08/19 20:27 70 130/87 02/08/19 20:00 97.7 70 18 119/82 96 Room Air 02/08/19 16:00 98.6 70 16 130/87 96 Room Air 02/08/19 15:00 133/81 02/08/19 11:30 97.7 68 16 133/81 94 Room Air 02/08/19 09:32 64 118/76 02/08/19 08:35 96 Room Air 21 Intake and Output 02/08/19 02/09/19 19:00 07:00 Output Total 2200 ml Balance -2200 ml Output Urine Total 2200 ml Height (Feet): 5 Height (Inches): 4.00 Weight (Pounds): 196 Neck: supple Cardiovascular: normal rate Respiratory/Chest: lungs clear Abdomen: soft Isela Rubio MD Feb 09, 2019 08:25
[2019-02-09] MEDS: Docusate 250mg cap ORAL SCH (09:18)
[2019-02-09] MEDS: Carvedilol 25mg Tab ORAL SCH (09:20)
[2019-02-09] MEDS: Heparin 5000 units/ml inj SUBQ SCH (09:35)
[2019-02-09 11:06] VITALS: BP 107/74
--- NOTE | 2019-02-09 13:22 | Infectious Diseases Prog Note ---
Assessment/Plan Assessment/Plan A; Sepsis Positive blood culture, contamination Acute renal failure improving Acute respiratory failure, resolved Hydronephrosis Obstructive uropathy Schizophrenia P; Observe off antibiotic agree with discharge Subjective ROS Limited/Unobtainable: Yes Constitutional: Reports: no symptoms Respiratory: Reports: no symptoms Musculoskeletal: Reports: pain Allergies: Coded Allergies: Grits (Unverified Allergy, Unknown, 07/06/17) [place] (Unverified Allergy, Unknown, 07/06/17) Objective Vital Signs Last 24 Hour Vital Signs Date Time Temp Pulse Resp B/P (MAP) Pulse Ox O2 Delivery O2 Flow Rate FiO2 02/09/19 11:06 97.0 74 16 107/74 95 Room Air 02/09/19 09:20 68 112/76 02/09/19 09:00 Room Air 02/09/19 07:23 97.3 60 14 108/71 98 Room Air 02/09/19 05:25 129/82 02/09/19 05:22 98.3 02/09/19 04:00 97.9 68 18 129/82 96 Room Air 02/09/19 02:24 98.3 02/09/19 01:20 98.3 62 18 113/85 96 Room Air 02/08/19 21:17 130/87 02/08/19 20:27 70 130/87 02/08/19 20:00 97.7 70 18 119/82 96 Room Air 02/08/19 16:00 98.6 70 16 130/87 96 Room Air 02/08/19 15:00 133/81 Height (Feet): 5 Height (Inches): 4.00 Weight (Pounds): 196 General Appearance: no acute distress HEENT: mucous membranes moist Respiratory/Chest: lungs clear Cardiovascular: normal rate Abdomen: soft, non tender Genitourinary: other - Rod catheter Extremities: no edema, other - left BKA Neurologic/Psychiatric: alert, responsive Current Medications Medications (Trade) Dose Ordered Sig/William Route PRN Reason Start Time Stop Time Status Last Admin Dose Admin Acetaminophen (Tylenol) 650 mg Q6H PRN ORAL Fever (temp>100.5F) 02/06/19 00:14 03/06/19 00:13 Bisacodyl (Dulcolax) 10 mg DAILYPRN PRN RECTAL Constipation 02/06/19 00:14 03/06/19 00:13 Carvedilol (Coreg) 25 mg EVERY 12 HOURS ORAL 02/06/19 09:00 03/04/19 10:29 02/09/19 09:20 Chlorhexidine Gluconate (Genevieve-Hex 2%) 1 applic DAILY@2000 TOPIC 02/06/19 20:00 02/28/19 19:59 02/08/19 20:18 Clonazepam (KlonoPIN) 1 mg Q8HR ORAL 02/06/19 06:00 02/12/19 13:59 02/09/19 05:25 Dextrose (Dextrose 50%) 25 ml Q30M PRN IV Hypoglycemia 02/06/19 00:30 02/28/19 18:29 Dextrose (Dextrose 50%) 50 ml Q30M PRN IV Hypoglycemia 02/06/19 00:30 02/28/19 18:29 Docusate Sodium (Colace) 250 mg DAILY ORAL 02/06/19 09:00 03/01/19 08:59 02/09/19 09:18 Heparin Sodium (Porcine) (Heparin 5000 units/ml) 5,000 units EVERY 12 HOURS SUBQ 02/06/19 09:00 03/01/19 08:59 02/09/19 09:35 Hydralazine HCl (Apresoline) 25 mg Q8HR ORAL 02/06/19 06:00 03/04/19 11:59 02/09/19 05:25 Hydromorphone HCl (Dilaudid) 0.5 mg Q4H PRN IVP For break through Pain 02/06/19 14:30 02/11/19 00:16 02/09/19 08:22 Ondansetron HCl (Zofran) 4 mg Q6H PRN IVP Nausea & Vomiting 02/06/19 09:51 03/08/19 09:50 02/06/19 15:26 Pantoprazole (Protonix) 40 mg EVERY 12 HOURS ORAL 02/06/19 09:00 03/05/19 20:59 02/09/19 09:21 Tramadol HCl (Ultram) 50 mg Q6H PRN ORAL For Pain 02/06/19 14:30 02/13/19 14:29 02/09/19 04:48 Jose Solis MD Feb 09, 2019 13:22
--- NOTE | 2019-02-09 13:49 | Nephrology Progress Note ---
Assessment/Plan Problem List: (1) Acute renal failure Assessment: Cr lowering (2) Respiratory failure (3) HTN (hypertension) (4) Schizophrenia (5) Hydronephrosis Assessment Acute on Chronic Renal Failure- Cr lowering ? kidney mass Right hydronephrosis Ventilator Dependent Respiratory failure Left lower lobe pulmonary infiltrate Urinary tract infection ESBL UTI from penitentiary Dehydration Seizure disorder on Clonazepam and Gabapentin Schizophrenia Hypertension Obesity Plan DC IV resume tramadol for pain Adjust BP meds adjust electrolytes patient had right kidney stent Off Lasix adjust all mind altering meds avoid nephrotoxics monitor renal parametes per orders Subjective ROS Limited/Unobtainable: No Constitutional: Reports: malaise Objective Objective Last 24 Hour Vital Signs Date Time Temp Pulse Resp B/P (MAP) Pulse Ox O2 Delivery O2 Flow Rate FiO2 02/09/19 13:29 107/74 02/09/19 11:06 97.0 74 16 107/74 95 Room Air 02/09/19 09:20 68 112/76 02/09/19 09:00 Room Air 02/09/19 07:23 97.3 60 14 108/71 98 Room Air 02/09/19 05:25 129/82 02/09/19 05:22 98.3 02/09/19 04:00 97.9 68 18 129/82 96 Room Air 02/09/19 02:24 98.3 02/09/19 01:20 98.3 62 18 113/85 96 Room Air 02/08/19 21:17 130/87 02/08/19 20:27 70 130/87 02/08/19 20:00 97.7 70 18 119/82 96 Room Air 02/08/19 16:00 98.6 70 16 130/87 96 Room Air 02/08/19 15:00 133/81 Intake and Output 02/08/19 02/09/19 19:00 07:00 Output Total 2200 ml Balance -2200 ml Output Urine Total 2200 ml Height (Feet): 5 Height (Inches): 4.00 Weight (Pounds): 196 General Appearance: no apparent distress Objective no change Derrell Hatch MD Feb 09, 2019 13:49
--- NOTE | 2019-02-09 14:22 | Pulmonolgy Critical Care Note ---
Critical Care - Asmt/Plan Assessment/Plan: Pulmonary Critical Care Progress Note HPI The patient is a 58 year old woman admitted with worsening shortness of breath, respiratory failure requiring intubation, pneumonia. Noted to have evidence of UTI in addition to pneumonia LLL Per chart review h/o Seizure disorder, Left Kidney Mass, Hydronephrosis, Hypertension, HHD Past Medical History: ESBL UTI from correction Leukocytosis likely related to infection Left kidney mass Left hydronephrosis Anxiety Dehydration Seizure disorder on Clonazepam and Gabapentin Weakness Schizophrenia Hypertension Obesity PSH: Left BKA Allergies: Grits (Unverified Allergy, Unknown, 07/06/17) [place] (Unverified Allergy, Unknown, 07/06/17) stable pulmonary status, on RA, much improved SP Ureteric stent previously, previously positive BC Being observed off AB Physical Exam Vital Signs Noted General Appearance: Awake Head: normocephalic, atraumatic, ENT: moist mucus membranes Neck: No LN Respiratory: CTAB Cardiovascular: regular rate, rhythm, HS1, HS2, no edema Gastrointestinal: decreased bowel sounds, overweight, abrasions abdominal wall Musculoskeletal: moving all limbs, BKA L Neurologic: Awake, interactive, no focal signs Skin: warm/dry, Impression: Previous Ventilator Dependent Respiratory failure now extubated Left lower lobe pulmonary infiltrate Urinary tract infection ESBL UTI from correction Acute on Chronic Renal Failure Left kidney mass Left hydronephrosis Anxiety Dehydration Seizure disorder on Clonazepam and Gabapentin Weakness Schizophrenia Hypertension Obesity Plan O2 PRN Antibiotics DC per ID Aspiration/Seizure precautions - Neurology following HHN PPX SIGN CARPENTER medications EKG: Rate: normal Rhythm: NSR ST Segments: no acute changes Chest X-Ray: left effusion, no pneumothorax, possible L sided infiltrate Abdominal US: 1. Moderate to severe right hydronephrosis. 2. Increased echogenicity of the right kidney, which can be seen in medical renal disease. 3. Incompletely visualized left kidney. Critical Care - Objective Last 24 Hour Vital Signs Date Time Temp Pulse Resp B/P (MAP) Pulse Ox O2 Delivery O2 Flow Rate FiO2 02/09/19 13:29 107/74 02/09/19 11:06 97.0 74 16 107/74 95 Room Air 02/09/19 09:20 68 112/76 02/09/19 09:00 Room Air 02/09/19 07:23 97.3 60 14 108/71 98 Room Air 02/09/19 05:25 129/82 02/09/19 05:22 98.3 02/09/19 04:00 97.9 68 18 129/82 96 Room Air 02/09/19 02:24 98.3 02/09/19 01:20 98.3 62 18 113/85 96 Room Air 02/08/19 21:17 130/87 02/08/19 20:27 70 130/87 02/08/19 20:00 97.7 70 18 119/82 96 Room Air 02/08/19 16:00 98.6 70 16 130/87 96 Room Air 02/08/19 15:00 133/81 Accucheck: 83 Critical Care - Subjective ROS Limited/Unobtainable: No FI02: 21 Vent Support Breath Rate: 16 Vent Support Mode: AC Vent Tidal Volume: 550 Sputum Amount: None PEEP: 5.0 PIP: 25 Tube Feeding Amount: 30 I&O: Intake and Output 02/08/19 02/09/19 19:00 07:00 Output Total 2200 ml Balance -2200 ml Output Urine Total 2200 ml ET-Tube: 7.5 ET Position: 23 Gabino Smith MD Feb 09, 2019 14:22
--- NOTE | 2019-02-09 15:46 | NUR ---
DISCHARGE PLANNING DISCHARGE ORDER NOTED Patient has been accepted to; [facility] [address] [place] [address] Bed: Skilled [phone] for Nurse to Nurse report [facility] ETA for transportation: 15:30
--- NOTE | 2019-02-09 15:47 | NUR ---
NURSE NOTES: REPORT GIVEN TO GUZMAN IQBAL AT [facility]. [facility] FOR LEAD JAVASCRIPT DEVELOPER 1730HRS.
[2019-02-09 16:00] VITALS: BP 139/96
--- NOTE | 2019-02-09 18:45 | NUR ---
NURSE NOTES: PICC LINE WAS D/C'D AT 1730HRS. TIP OF CATHETER INTACT. NO BLEEDING NOTED. PRESSURE DRESSING APPLIED. BELONGINGS CHECKED AT BEDSIDE. PT STATED HER BRA BROKE AND PT FOUND ID IN HER GOWN POCKET. PT WAS DISCHARGED IN STABLE CONDITION.
--- NOTE | 2019-02-09 22:41 | General Progress Note ---
Assessment/Plan Status: progressing Assessment/Plan: Assessment - Resolved N/V - Renal failure - Anemia - CPS - HTN Recommendations - po as tolerated - follow labs - elevated HOB Subjective Allergies: Coded Allergies: Grits (Unverified Allergy, Unknown, 07/06/17) [place] (Unverified Allergy, Unknown, 07/06/17) Subjective seen earlier in am feels better no further vomiting tolerating PO for discharge today Objective Last 24 Hour Vital Signs Date Time Temp Pulse Resp B/P (MAP) Pulse Ox O2 Delivery O2 Flow Rate FiO2 02/09/19 16:00 98.6 66 18 139/96 98 Room Air 02/09/19 13:29 107/74 02/09/19 11:06 97.0 74 16 107/74 95 Room Air 02/09/19 09:20 68 112/76 02/09/19 09:00 Room Air 02/09/19 07:23 97.3 60 14 108/71 98 Room Air 02/09/19 05:25 129/82 02/09/19 05:22 98.3 02/09/19 04:00 97.9 68 18 129/82 96 Room Air 02/09/19 02:24 98.3 02/09/19 01:20 98.3 62 18 113/85 96 Room Air Intake and Output 02/08/19 02/09/19 19:00 07:00 Output Total 2200 ml Balance -2200 ml Output Urine Total 2200 ml Height (Feet): 5 Height (Inches): 4.00 Weight (Pounds): 196 Objective obese AA woman NCAT supple CTA RRR abd soft OBese non edema Landon Walls MD Feb 09, 2019 22:41
--- NOTE | 2019-02-10 11:59 | Discharge Summary ---
Discharge Summary Discharge Summary _ DATE OF ADMISSION: 01/29/2019 DATE OF DISCHARGE: 02/09/2019 DISCHARGED BY: REASON FOR ADMISSION: 58 years old female with past medical history of hypertension, seizure disorder , bilateral hydronephrosis , was sent from the shelter facility for evaluation due to congestion. Patient was placed on oxygen 2 L at the facility after she received breathing treatment with bronchodilator. Technician Preventative Medicine increased oxygen flow to 3 L since patient was hypoxic. Upon evaluation in the emergency department patient was unresponsive with dyspnea. Patient require emergency oral intubation in the emergency room . Chest x-ray confirmed placement of ET tube. Laboratory work-up revealed leukocytosis 14.1, hemoglobin 11.7 , hematocrit 35.8. Sodium 147. BUN 64, creatinine 4.6. Glucose 96. Lactic acid 0.5. Stable amylase, lipase and LFT. Urinalysis revealed +2 protein , pyuria and occasional bacteria. EKG revealed sinus rhythm , no acute ischemic changes. Chest x-ray demonstrated pulmonary vascular congestion with atelectasis, possible left infiltrate. CT scan of the brain revealed atrophy and deep white matter changes . 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 Patient started on a Versed drip. Initial ABG after intubation showed pH 7.33 and PO2 89 on FiO2 40%. Ventilator settings were titrated. ABG improved. Patient subsequently admitted to intensive care unit for further management. CONSULTANTS: packaging assembler Dr. Dodge neurologist Dr. Hsieh pulmonary Dr Smith ID specialist Dr. Chavarria GI specialist Dr. Hinds asphalt surface heater operator Dr. Hatch vest backer/oncologist Dr. [place] urologist Dr. Daley [facility] COURSE: Patient admitted to ICU. Patient started on IV fluids Ventilator support and pulmonary toilet provided. Patient was followed-up with a chest x-ray. Practice Director closely followed. Settings titrated as needed. Installation Drafter followed. Volumes, renal parameters and electrolytes were closely monitored, Nephrotoxics were avoided. Electrolytes corrected as needed. Patient started on empiric antibiotic as per ID specialist recommendation. Blood culture initially revealed 1 out of 4 Staph epidermidis . Urine culture was negative. Sputum culture revealed Lis. Echocardiogram demonstrated preserved ejection fraction of 60%. No evidence of wall motion abnormality. Right ventricular systolic pressure of 31. Luggage Repairer followed. Blood pressure was managed with beta-gerardo and hydralazine. Patient was able to be extubated on 02/02. Supplemental oxygen provided and titrated to keep pulse oximetry above 92%. DVT and GI prophylaxis provided. Prior to discharge pulse oximetry was stable on room air. Renal ultrasound revealed moderate to severe right hydronephrosis. Decreased echogenicity of the right kidney which can be seen in medical renal disease. Incompletely visualized left kidney. Urologist follow. On previous admission patient was placed a stent due to stricture in the left ureter. Urologist recommended cystoscopy with a right double-J stent placement . Patient subsequently undergone on 01/31 cystoscopy with right double-J stent placement and fluoroscopy. Renal parameters improved: BUN from 64 down to 37, and creatinine from 4.6 down to 1.5. IV fluids were discontinued. Pain management was addressed. Neurologist followed for altered mental status. Patient undergone two EEG . The first one on 02/01 revealed encephalopathy of toxic nature , classically seen w ith Versed drip. Patient subsequently had repeated EEG a, fter patient was off sedative to reevaluate her for seizure disorder. Second EEG was done on 02/08 and was normal awake EEG. Seizure precautions maintained. No evidence of seizure activity while in the hospital. CT scan of the brain revealed atrophy and deep white matter changes . 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 Per neurologist , the patient history, neurological examination, laboratory data and imaging studies were most consistent with significant toxic metabolic encephalopathy , related to sepsis , associated with pneumonia , UTI , associated hypoxia, and sedation with Versed. Encephalopathy improved. Per neurologist, it was unclear what type of seizure disorder the patient had. EEG was normal. Neurologist recommended aggressive treatment of infectious process , aggressive treatment of respiratory dysfunction and management of psychosis.. No evidence of Antibiotic regimen was optimized as per ID specialist. Initial blood culture with 04/02 Staph epidermidis were likely contaminant. Patient completed antibiotics for pneumonia. No fevers, no leukocytosis . ID specialist recommended to observe patient off antibiotics. GI specialist followed for initial nausea and vomiting. Symptomatic treatment provided. Nausea and vomiting resolved, possibly due to renal failure. Hemoglobin and hematocrit were closely monitored with goal to keep hemoglobin above 7. Hemoglobin and hematocrit remained at the baseline. Prior to discharge hemoglobin 12.1, hematocrit 25.3. Pain management was addressed. Blood pressure was managed with hydralazine and Coreg. Blood pressure was stable. Patient clinically stabilized and was ready for transfer to shelter facility for continuation of care. FINAL DIAGNOSES: Acute hypoxemic respiratory failure, requiring intubation, status post extubation Acute toxic metabolic encephalopathy Acute on chronic renal failure Right hydronephrosis with worsening renal failure Status post cystoscopy with right double-J stent placement and fluoroscopy Obstructive uropathy Left lower lobe pulmonary infiltrate Pyuria, possible UTI History of ESBL UTI Dehydration Seizure disorder Hypertension Status post left BKA Schizophrenia DISCHARGE MEDICATIONS: See Medication Reconciliation list. DISCHARGE INSTRUCTIONS: Patient was discharged to the shelter facility. Follow up with medical doctor at the facility. I have been assigned to dictate discharge summary for this account. I was not involved in the patient's management. Jojo Alba NP Feb 10, 2019 11:58
== END 2019-02-09 18:40 | DRG 981 ==
LOC: EDBD 13:51 → EDUNIT# 13:51 → EMR 14:47 → EDBEDREQ 15:17 → ICU 17:45 → 2E 02-04 14:50 → 4E 02-05 23:47
PROC: 0BH17EZ Insertion of Endotracheal Airway into Trachea, Via Natural or Artificial Opening (ICD-10-PCS; principal; 2019-01-29)
PROC: 5A1955Z Respiratory Ventilation, Greater than 96 Consecutive Hours (ICD-10-PCS; principal; 2019-01-29)
PROC: 0TP98DZ Removal of Intraluminal Device from Ureter, Via Natural or Artificial Opening Endoscopic (ICD-10-PCS; 2019-01-31)
PROC: 0T738DZ Dilation of Right Kidney Pelvis with Intraluminal Device, Via Natural or Artificial Opening Endoscopic (ICD-10-PCS; 2019-01-31)
PROC: B548ZZA Ultrasonography of Superior Vena Cava, Guidance (ICD-10-PCS; 2019-02-01)
PROC: 02HV33Z Insertion of Infusion Device into Superior Vena Cava, Percutaneous Approach (ICD-10-PCS; 2019-02-01)
DX: J96.01 Acute respiratory failure with hypoxia (principal); J18.9 Pneumonia, unspecified organism; G92 Toxic encephalopathy; N17.9 Acute kidney failure, unspecified; N13.1 Hydronephrosis with ureteral stricture, not elsewhere classified; J44.0 Chronic obstructive pulmonary disease with (acute) lower respiratory infection; N39.0 Urinary tract infection, site not specified; J98.11 Atelectasis; J96.02 Acute respiratory failure with hypercapnia; G89.4 Chronic pain syndrome; I12.9 Hypertensive chronic kidney disease with stage 1 through stage 4 chronic kidney disease, or unspecified chronic kidney disease; N18.9 Chronic kidney disease, unspecified; G40.909 Epilepsy, unspecified, not intractable, without status epilepticus; R00.1 Bradycardia, unspecified; E86.0 Dehydration; F20.9 Schizophrenia, unspecified; E66.9 Obesity, unspecified; D64.9 Anemia, unspecified; Z89.512 Acquired absence of left leg below knee; R11.2 Nausea with vomiting, unspecified
CPT/HCPCS: 31500; 36415; 36569; 36600; 70450; 71045; 74018; 74019; 76000; 76770; 76937; 80053; 80061; 81003; 82150; 82550; 82607; 82728; 82746; 82803; 82962; 82977; 83036; 83540; 83550; 83605; 83690; 83735; 83880; 84100; 84439; 84443; 84481; 84484; 84550; 85025; 85610; 85730; 86140; 86710; 87040; 87070; 87081; 87086; 87181; 87205; 93005; 93306; 93970; 94002; 94003; 94150; 94640; 94664; 95819; 96361; 96365; 96367; 96375; 99291; 99292; J2250; J2405; J7620; J8499

== ENCOUNTER 2019-05-02 13:50 | Inpatient (IN) | payer MEDICARE, MEDICAID ==
[2019-05-02] VITALS (15 sets, daily range): BP systolic 84–126; BP diastolic 58–83
[~2019-05-02] VITALS: Ht 160 cm; Wt 94.4 kg
[~2019-05-02 13:50] MED LIST changes: +ACETAMINOPHEN325 M1 ORAL; +CRANBERRY450 M4 PO; +MELATONIN 3 MG1 EAC1 PO; +MELOXICAM7.5 MG PO; +MOM30 ML ORAL
[2019-05-02] MEDS ORDERED: VALPROIC ACID250 MG PO (14:06)
[2019-05-02] MEDS ORDERED: HEPARIN SO5000 UNIT2 SUBQ (14:10)
[2019-05-02] MEDS ORDERED: ZYPREXA2.5 MG ORAL (14:10)
[2019-05-02] MEDS ORDERED: VIMPAT100 MG PO (14:10)
[2019-05-02] MEDS ORDERED: NORVASC5 MG ORAL (14:10)
[2019-05-02] MEDS ORDERED: KEPPRA500 MG ORAL (14:10)
--- NOTE | 2019-05-02 14:10 | NUR ---
ED Nurse Note: Pt brought into ED w/ SOB and lethargy from SNF. SNF states she o2 sat dropped to 85%. Pt is currently 98% on NC 2L. Pt is lethargic but responds to name. Pt is alert and orientedx1, non-ambulatory. Pt has amputation L leg, nephrostomy tube L back draining yellow clear urine. Pt is set up on monitor.
--- NOTE | 2019-05-02 15:07 | Emergency Room Report ---
History of Present Illness General Chief Complaint: Altered Level of Consciousness Source: Patient, Medical Record, PMD Present Illness HPI This patient presents from a [facility] facility. The patient has multiple chronic medical problems to include schizophrenia, recurrent urinary tract infections, seizures, COPD, CVA, chronic kidney disease, peripheral vascular disease, has a nephrostomy tube. The patient presents for shortness of breath and hypoxemia per report. Also there was report of a fever. Patient herself has no specific complaints at this time. Allergies: Coded Allergies: [place]rits (Unverified Allergy, Unknown, 07/06/17) [place] (Unverified Allergy, Unknown, 07/06/17) Patient History Past Medical History: see triage record, old chart reviewed, HTN, CAD, asthma, COPD, GERD, CVA/TIA, seizures, psych hx - schizophrenia, renal disease, other - cervical ca s/p obstructive uropathy s/p BL nephrostomy tubes. Past Surgical History: other - L. BKA Social History: Denies: smoking, alcohol use, drug use Reviewed Nursing Documentation: PMH: Agreed; PSxH: Agreed Nursing Documentation-PMH Hx Cardiac Problems: Yes Hx Hypertension: Yes Hx Cancer: No Hx Gastrointestinal Problems: Yes - NAUSEA/ VOMTING Hx Neurological Problems: Yes Hx Seizures: Yes Hx Weakness: Yes - MUSCULAR Review of Systems All Other Systems: negative except mentioned in HPI Physical Exam Vital Signs Date Time Temp Pulse Resp B/P (MAP) Pulse Ox O2 Delivery O2 Flow Rate FiO2 05/02/19 13:50 98.4 96 18 107/68 (81) 94 Nasal Cannula Sp02 EP Interpretation: reviewed, normal General Appearance: no apparent distress, alert, GCS 15, non-toxic Head: normocephalic, atraumatic Eyes: bilateral eye normal inspection, bilateral eye PERRL ENT: hearing grossly normal, normal pharynx, no angioedema, normal voice Neck: full range of motion, supple/symm/no masses Respiratory: chest non-tender, lungs clear, normal breath sounds, no respiratory distress, no retraction, no accessory muscle use, speaking full sentences Cardiovascular #1: regular rate, rhythm, no edema Gastrointestinal: normal bowel sounds, non tender, soft, non-distended, no guarding, no rebound Rectal: deferred Musculoskeletal: back normal, normal range of motion, non-tender, other - L. BKA Neurologic: alert, motor strength/tone normal, oriented, sensory intact, responsive, speech normal Psychiatric: mood/affect normal, no suicidal/homicidal ideation Skin: other - See RN skin exam Procedures Central Line Central Line : Consent: Emergent Central Line Lumen: triple Maximal Sterile Barrier Tech: yes cap, yes mask, yes sterile gown, yes sterile gloves, yes large sterile sheet, yes hand hygiene, yes chlorhexidine prep Central Line Postion: internal jugular (R) Anesthesia: local cc's of anesthesia: 3 Complications: none Central Line Post Position: sutured Patient Tolerated: Well Complications: None Intubation Intubation : Consent: Emergent Intubation Method: orotracheal Tube Size (cm): 7.5 Medications: Etomidate Breath Sounds after Intubation: equal Intubation Complications: no complications Post Intubation Xray: Yes Progress/Xray Impression: Appropriate tube placement Attempts: One Patient Tolerated: Well Complications: None Medical Decision Making Diagnostic Impression: Primary Impression: Respiratory failure Additional Impressions: Renal failure Anemia Leukocytosis ER Course Patient was found to have acute renal failure. There is a questionable area on chest x-ray that could be an early opacity consistent with pneumonia. The patient was given broad-spectrum antibiotics. Initially the patient was well appearing without any evidence of respiratory distress then later in the patient ED course she suddenly decompensated. Her O2 sat durations dropped into the high 40s and 50s. She was also altered and gasping. Lung sounds were very diminished. The patient was then bagged and emergently intubated by rapid sequence innovation. I was able to intubate this patient with sedation only and did not have to paralyze her. She was also given 15 mg of albuterol and Atrovent. She had significant improvement in lung sounds. A R. IJ central line was placed for very poor peripheral access. She also became more alert and was fighting the ventilator and was placed on a propofol drip. She is admitted to the ICU. This patient is critically ill. This patient required complex medical decision- making, aggressive intervention, extensive laboratory workup and monitoring. Critical care time: 40 minutes. Laboratory Tests Test 05/02/19 16:00 05/02/19 16:30 05/02/19 17:53 White Blood Count 14.6 K/UL (4.8-10.8) H Red Blood Count 2.76 M/UL (4.20-5.40) L Hemoglobin 8.8 G/DL (12.0-16.0) L Hematocrit 28.3 % (37.0-47.0) L Mean Corpuscular Volume 102 FL (80-99) H Mean Corpuscular Hemoglobin 31.9 PG (27.0-31.0) H Mean Corpuscular Hemoglobin Concent 31.1 G/DL (32.0-36.0) L Red Cell Distribution Width 14.8 % (11.6-14.8) Platelet Count 191 K/UL (150-450) Mean Platelet Volume 7.8 FL (6.5-10.1) Neutrophils (%) (Auto) 80.2 % (45.0-75.0) H Lymphocytes (%) (Auto) 7.6 % (20.0-45.0) L Monocytes (%) (Auto) 11.3 % (1.0-10.0) H Eosinophils (%) (Auto) 0.3 % (0.0-3.0) Basophils (%) (Auto) 0.6 % (0.0-2.0) Sodium Level 138 MMOL/L (136-145) Potassium Level 4.0 MMOL/L (3.5-5.1) Chloride Level 101 MMOL/L (98-107) Carbon Dioxide Level 18 MMOL/L (21-32) L Anion Gap 19 mmol/L (5-15) H Blood Urea Nitrogen 124 mg/dL (7-18) H Creatinine 5.0 MG/DL (0.55-1.30) H Estimate Glomerular Filtration Rate 8.9 mL/min (>60) Glucose Level 109 MG/DL (74-106) H Lactic Acid Level 0.70 mmol/L (0.4-2.0) Calcium Level 9.4 MG/DL (8.5-10.1) Total Bilirubin 0.3 MG/DL (0.2-1.0) Aspartate Amino Transferase (AST) 27 U/L (15-37) Alanine Aminotransferase (ALT) 25 U/L (12-78) Alkaline Phosphatase 84 U/L (46-116) Total Creatine Kinase 25 U/L (26-308) L Creatine Kinase MB 0.8 NG/ML (0.0-3.6) Creatine Kinase MB Relative Index 3.2 Troponin I 0.000 ng/mL (0.000-0.056) Total Protein 7.6 G/DL (6.4-8.2) Albumin 1.8 G/DL (3.4-5.0) L Globulin 5.8 g/dL Albumin/Globulin Ratio 0.3 (1.0-2.7) L Triglycerides Level 376 MG/DL (30-150) H Urine Color Pending Urine Appearance Pending Urine pH Pending Urine Specific [place] Pending Urine Protein Pending Urine Glucose (UA) Pending Urine Ketones Pending Urine Blood Pending Urine Nitrite Pending Urine Bilirubin Pending Urine Urobilinogen Pending Urine Leukocyte Esterase Pending EKG Diagnostic Results Rate: normal Rhythm: NSR ST Segments: no acute changes Rhythm Strip Diag. Results EP Interpretation: yes Rate: 80's Rhythm: NSR, no PVC's, no ectopy Chest X-Ray Diagnostic Results Chest X-Ray Diagnostic Results : Chest X-Ray Ordered: Yes # of Views/Limited/Complete: 1 View Indication: Shortness of Breath EP Interpretation: Yes Interpretation: no effusion, no pneumothorax, other - RLL opacity Impression: Other - See above, RLL PNA Electronically Signed by: Frieda Mcleod DO Other X-Ray Diagnostic Results Other X-Ray Diagnostic Results : X-Ray ordered: CXR #2 # of Views/Limited Vs Complete: 1 View Indication: Other - tube placement EP Interpretation: Yes Interpretation: other - Appropriate ET tube placement s/p RSI Last Vital Signs Date Time Temp Pulse Resp B/P (MAP) Pulse Ox O2 Delivery O2 Flow Rate FiO2 05/02/19 13:50 98.4 96 18 107/68 (81) 94 Nasal Cannula Disposition: ADMITTED INPATIENT Condition: Critical Frieda Mcleod DO May 02, 2019 15:07
[2019-05-02] MEDS ORDERED: cefTRIAXone 1 GM in NS 55 ML IVPB ONE (15:15)
--- NOTE | 2019-05-02 15:20 | NUR ---
ED Nurse Note: MD Mcleod aware that 3 nurses unable to get IV. CN notified, states she will help soon. payroll technician Sue called at [phone] to get lab draws, states they are busy and will come soon.
--- NOTE | 2019-05-02 16:00 | NUR ---
ED Nurse Note: Pt labs taken by outside laborer. Dr Mcleod notified again 3 nurses still unable to get IV line.
--- NOTE | 2019-05-02 16:27 | Diagnostic Imaging Report ---
Indication: Dyspnea Comparison: 02/01/2019 A single view chest radiograph was obtained. Findings: Cardiomediastinal appearance is within normal limits for age. The lungs are clear. Pulmonary vascularity is appropriate. The diaphragmatic contour is smooth and costophrenic angles are sharp. No pleural effusions are identified. The bones are unremarkable. Impression: No acute findings
[2019-05-02 17:22] LABS: BASOPHILS % (AUTO) 0.6 % (0.0-2.0); EOSINOPHILS % (AUTO) 0.3 % (0.0-3.0); HEMATOCRIT 28.3 % (37.0-47.0); HEMOGLOBIN 8.8 G/DL (12.0-16.0); LYMPHOCYTES % (AUTO) 7.6 % (20.0-45.0); MEAN CORPUSCULAR VOLUME 102 FL (80-99); MONOCYTES % (AUTO) 11.3 % (1.0-10.0); NEUTROPHILS % (AUTO) 80.2 % (45.0-75.0); PLATELET COUNT 191 K/UL (150-450); RED BLOOD COUNT 2.76 M/UL (4.20-5.40); RED CELL DISTRIBUTION WIDTH 14.8 % (11.6-14.8); WHITE BLOOD COUNT 14.6 K/UL (4.8-10.8)
--- NOTE | 2019-05-02 17:25 | NUR ---
ED Nurse Note: Pt alarm going off in room for desaturation to 49% NC 1L. notified and immediately starting bagging pt. Crash cart brought to room. 20mg etomidate administered. succylonicchine pulled but not adminstered per Dr Mcleod, succinylocchine med wasted.
[2019-05-02] MEDS ORDERED: Albuterol/Ipratropium 3ml neb ONE (17:30)
[2019-05-02 17:31] LABS: ANION GAP 19 mmol/L (5-15); BLOOD UREA NITROGEN 124 mg/dL (7-18); CALCIUM 9.4 MG/DL (8.5-10.1); CARBON DIOXIDE 18 MMOL/L (21-32); CHLORIDE 101 MMOL/L (98-107); SODIUM 138 MMOL/L (136-145)
--- NOTE | 2019-05-02 17:35 | NUR ---
ED Nurse Note: Pt was intubated br Dr Mcleod intubation size 7.5. Pt sedated. Pt 02 98% [facility] ventilator, pt BP 102/56, HR 86.
[2019-05-02 17:45] LABS: ALANINE AMINOTRANSFERASE 25 U/L (12-78); ALBUMIN 1.8 G/DL (3.4-5.0); ALBUMIN/GLOBULIN RATIO 0.3 (1.0-2.7); ALKALINE PHOSPHATASE 84 U/L (46-116); ASPARTATE AMINO TRANSFERASE 27 U/L (15-37); BILIRUBIN,TOTAL 0.3 MG/DL (0.2-1.0); CKMB 0.8 NG/ML (0.0-3.6); CREATINE KINASE 25 U/L (26-308)
[2019-05-02] MEDS ORDERED: Solu-MEDROL 125mg Inj IVP ONE (17:45)
[2019-05-02] MEDS ORDERED: Albuterol ud Inhalation HHN ONE (17:45)
[2019-05-02] MEDS ORDERED: Ipratropium 0.02% Inh Soln 2.5ml UD HHN ONE (18:00)
--- NOTE | 2019-05-02 18:10 | NUR ---
ED Nurse Note: Triglyceride level drawn and sent to lab.
[2019-05-02] MEDS ORDERED: Propofol 200mg/20ml IV ONE ×2 (18:19→18:30)
--- NOTE | 2019-05-02 18:20 | NUR ---
ED Nurse Note: Pt started on Propofol gtt @ 2.17ml/hr with RASS +1, 5mcg/kg/min, based on weight= 72.7kgs. then per Dr Mcleod increased to 10mcg/kg/min; 4.3ml/hr with a RASS +1. BP-102/56, rr-20 on a vent, O2 sat 98%, NH-90.
--- NOTE | 2019-05-02 18:35 | NUR ---
ED Nurse Note: Incorrect RASS (0) from the IV Spreadsheet, pt's RASS= +1, increased propofol gtt to 15mcg/kg
--- NOTE | 2019-05-02 18:41 | NUR ---
ED Nurse Note: Shani notified that only line 3 nurses can get is 22g existing on R hand. Notified Shani that porpofol is runnign and would need another line for NS, but Shani states RNs to just still try to get another line.
[2019-05-02 18:47] LABS: APPEARANCE,URINE TURBID; BILIRUBIN, URINE NEGATIVE (NEGATIVE); COLOR,URINE PALE YELLOW; GLUCOSE, URINE (UA) NEGATIVE (NEGATIVE); KETONES,URINE NEGATIVE (NEGATIVE); LEUKOCYTE ESTERASE ,URINE 3+ (NEGATIVE); NITRITE,URINE POSITIVE (NEGATIVE); PH,URINE 5 (4.5-8.0); PROTEIN,URINE 3+ (NEGATIVE); UROBILINOGEN,URINE NORMAL MG/DL (0.0-1.0)
--- NOTE | 2019-05-02 18:49 | NUR ---
ED Nurse Note: MD Mcleod pushed 50 mg Propofol one time.
--- NOTE | 2019-05-02 18:50 | NUR ---
ED Nurse Note: NG tube inserted by Brandy HINDS., Waiting for KUB.
--- NOTE | 2019-05-02 18:50 | NUR ---
ED Nurse Note: Incorrect RASS (0) documented form IV Spreadsheet, correct RASS +1, propofol gtt increased rate to 20 mcg/kg/min. with weight= 72.7kg. O2 sat= 98%
--- NOTE | 2019-05-02 19:05 | NUR ---
HAND-OFF: Report given to [place] HINDS.
--- NOTE | 2019-05-02 19:05 | NUR ---
ED Nurse Note: received patient from cheng evangelista. patient resting in bed with no acute distress. patient intubated; attached to vent. ng tube in place; awaiting kub. propofol infusion at 20mcg/kg/hr or 9.85ml/hr (based on accurate weight of 82.1 kg) ; patient at goal rass of -2. assisted ermd with right IJ TLC placement. iv on right hand intact and patent. left nephrostomy noted; draining well to gravity. changed patient to gown; attached to monitor; bedlocked at lowest position; side rails raised. vitals stable. will continue to monitor.
--- NOTE | 2019-05-02 19:05 | NUR ---
Note undone in EDM - 05/03/19 at 0625 by [facility] ED Nurse Note: received patient from cheng evangelista. patient resting in bed with no acute distress. patient intubated; attached to vent. ng tube in place; awaiting kub. propofol infusion at 20mcg/kg/hr or 9.85ml/hr; patient at goal rass of -2. assisted ermd with right IJ TLC placement. iv on right hand intact and patent. left nephrostomy noted; draining well to gravity. changed patient to gown; attached to monitor; bedlocked at lowest position; side rails raised. vitals stable. non behavioural bilateral wrist soft restraints in place; remains free of injury; capillary refill <3 distal to site. will continue to monitor.
--- NOTE | 2019-05-02 19:20 | NUR ---
ED Nurse Note: rass remains at -2. patient tolerated propofol. infusion rate remains at 20 mcg/kg/min or 9.85 ml/hr
--- NOTE | 2019-05-02 19:31 | Diagnostic Imaging Report ---
Indication: Dyspnea Comparison: 14:52 A single view chest radiograph was obtained. Findings: Current study performed 17:50 Endotracheal tube is about 6 cm above the felicia. Lungs are essentially clear. Heart size is normal. Bones are osteopenic. IMPRESSION: Endotracheal tube is probably satisfactory in position. This could be advanced slightly further.
--- NOTE | 2019-05-02 19:35 | NUR ---
ED Nurse Note: rass remains at -2. patient tolerated propofol. infusion rate remains at 20 mcg/kg/min or 9.85 ml/hr
--- NOTE | 2019-05-02 19:50 | NUR ---
ED Nurse Note: rass remains at -2. patient tolerated propofol. infusion rate remains at 20 mcg/kg/min or 9.85 ml/hr
[2019-05-02] MEDS ORDERED: Etomidate 40mg/20ml Inj IV ONE (19:59)
[2019-05-02] MEDS ORDERED: Acetaminophen 650mg/20.3ml NG PRN (20:45)
[2019-05-02] MEDS ORDERED: Albuterol/Ipratropium 3ml neb HHN PRN (20:45)
--- NOTE | 2019-05-02 20:50 | NUR ---
ED Nurse Note: rass remains at -2. patient tolerated propofol. infusion rate remains at 20 mcg/kg/min or 9.85 ml/hr
[2019-05-02] MEDS ORDERED: D5NS 1,000 ML IV SCH ×2 (21:00→21:26)
--- NOTE | 2019-05-02 21:00 | NUR ---
ED Nurse Note: previous ng not in correct place as confirmed by kub. d/c previous ng tub; insterted ng tube on left nare; 60 at nares. correct placement confirmed by kub.
--- NOTE | 2019-05-02 21:15 | NUR ---
TRANSFER TO FLOOR: Patient transferred to icu 246 e as ordered, per md guido. Report given to jean carlos Iglesias. patient in stable condition; vss. transfered to unit via gurney with rn amrik and rt. belongings list and admission packet sent with patient.
--- NOTE | 2019-05-02 21:15 | NUR ---
NURSE NOTES: SBAR form [facility] ED RN. Patient brought in intubated AC 18, 400tv, 50%FiO2 and peep of 5. ETT 7.5/25cm. NGT noted on L nare. R IJ TLC noted. and right hand 22G noted SL. Patient has a left sided nephrostomy with bag, yellow urine noted. Patient is currently still sedated from ER meds. L BKA noted. Wounds noted. Safety measures in place.
--- NOTE | 2019-05-02 21:26 | NUR ---
NURSE NOTES: Admission orders received from Dr. Smith
--- NOTE | 2019-05-02 21:38 | Pulmonolgy Critical Care Note ---
Critical Care - Asmt/Plan Assessment/Plan: Pulmonary CCM Conultation HPI This patient is a 58 year old woman with past history of Chronic Obstructive Pulmonary Disease, Seizures, Previous CVA/TIA, Hypertension, CAD, Cerviacl cancer s/p Uropathy - has B/L Nephrostomy tubes, Chronic kidney disease, Peripheral vascular disease sp LLE amputation, Schizophrenia, admitted from shelter facility with shortness of breath, fever, N/V and hypoxemia. Patient requires Rapid Sequence Intubation in the Emergency Department - noted to have severe bronchospasm. Allergies: Grits Darby Past Medical History: see triage record, old chart reviewed, HTN, CAD, asthma, COPD, GERD, CVA/TIA, seizures, psych hx - schizophrenia, renal disease, other - cervical ca s/p obstructive uropathy s/p BL nephrostomy tubes, muscle weakness Past Surgical History: other - L. BKA Social History: Denies: smoking, alcohol use, drug use All Other Systems: negative except mentioned in HPI Physical Exam Vital Signs Noted Date Time Temp Pulse Resp B/P (MAP) Pulse Ox O2 Delivery O2 Flow Rate FiO2 05/02/19 13:50 98.4 96 18 107/68 (81) 94 Nasal Cannula General Appearance: no apparent distress, sedate on the ventilator, pale, non- toxic Head: normocephalic, atraumatic Eyes: bilateral eye normal inspection, bilateral eye PERRL ENT: hearing grossly normal, normal pharynx, no angioedema,ETT Neck: full range of motion, supple/symm/no masses Respiratory: chest non-tender, reduced BS, occasional wheezes Cardiovascular: regular rate, rhythm, HS1, HS2 normal, no edema Gastrointestinal: normal bowel sounds, non tender, soft, non-distended, no guarding, no rebound Rectal: deferred Musculoskeletal: back normal, normal range of motion, non-tender, other - L. BKA Neurologic: sedated, no focal signs Impression: Chronic Obstructive Pulmonary Disease Exacerbation Possible Pneumonia Respiratory failure Chronic kidney disease Urinary Tract Infection Anemia Leukocytosis Seizures Previous CVA/TIA Hypertension CAD Cervical cancer s/p Uropathy - has B/L Nephrostomy tubes Peripheral vascular disease sp LLE amputation Schizophrenia Plan - IV Antibiotics - ACVC - adjust - ABG PRN - IV Steroids - HHN - Fentanyl gtt - Ativan PRN - IVF - ISS - PPX - Monitor labs - Pressors PRN - NGT for meds/feeds Critical care time: 75 minutes, 43 minutes care co-ordination DW: ED Physician, RN Laboratory Tests Noted Test 05/02/19 16:00 05/02/19 16:30 05/02/19 17:53 White Blood Count 14.6 K/UL (4.8-10.8) H Red Blood Count 2.76 M/UL (4.20-5.40) L Hemoglobin 8.8 G/DL (12.0-16.0) L Hematocrit 28.3 % (37.0-47.0) L Mean Corpuscular Volume 102 FL (80-99) H Mean Corpuscular Hemoglobin 31.9 PG (27.0-31.0) H Mean Corpuscular Hemoglobin Concent 31.1 G/DL (32.0-36.0) L Red Cell Distribution Width 14.8 % (11.6-14.8) Platelet Count 191 K/UL (150-450) Mean Platelet Volume 7.8 FL (6.5-10.1) Neutrophils (%) (Auto) 80.2 % (45.0-75.0) H Lymphocytes (%) (Auto) 7.6 % (20.0-45.0) L Monocytes (%) (Auto) 11.3 % (1.0-10.0) H Eosinophils (%) (Auto) 0.3 % (0.0-3.0) Basophils (%) (Auto) 0.6 % (0.0-2.0) Sodium Level 138 MMOL/L (136-145) Potassium Level 4.0 MMOL/L (3.5-5.1) Chloride Level 101 MMOL/L (98-107) Carbon Dioxide Level 18 MMOL/L (21-32) L Anion Gap 19 mmol/L (5-15) H Blood Urea Nitrogen 124 mg/dL (7-18) H Creatinine 5.0 MG/DL (0.55-1.30) H Estimate Glomerular Filtration Rate 8.9 mL/min (>60) Glucose Level 109 MG/DL (74-106) H Lactic Acid Level 0.70 mmol/L (0.4-2.0) Calcium Level 9.4 MG/DL (8.5-10.1) Total Bilirubin 0.3 MG/DL (0.2-1.0) Aspartate Amino Transferase (AST) 27 U/L (15-37) Alanine Aminotransferase (ALT) 25 U/L (12-78) Alkaline Phosphatase 84 U/L (46-116) Total Creatine Kinase 25 U/L (26-308) L Creatine Kinase MB 0.8 NG/ML (0.0-3.6) Creatine Kinase MB Relative Index 3.2 Troponin I 0.000 ng/mL (0.000-0.056) Total Protein 7.6 G/DL (6.4-8.2) Albumin 1.8 G/DL (3.4-5.0) L Globulin 5.8 g/dL Albumin/Globulin Ratio 0.3 (1.0-2.7) L Triglycerides Level 376 MG/DL (30-150) H Urine Color Pending Urine Appearance Pending Urine pH Pending Urine Specific [place] Pending Urine Protein Pending Urine Glucose (UA) Pending Urine Ketones Pending Urine Blood Pending Urine Nitrite Pending Urine Bilirubin Pending Urine Urobilinogen Pending Urine Leukocyte Esterase Pending EKG: Rate: normal Rhythm: NSR ST Segments: no acute changes Chest X-Ray: no effusion, no pneumothorax, other possible- RLL opacity CXR #2: Appropriate ET tube placement s/p RSI Critical Care - Objective Last 24 Hour Vital Signs Date Time Temp Pulse Resp B/P (MAP) Pulse Ox O2 Delivery O2 Flow Rate FiO2 05/02/19 19:00 86 18 50 05/02/19 18:50 19 112/62 Mechanical Ventilator 50 05/02/19 18:49 19 Mechanical Ventilator 50 05/02/19 18:35 18 110/70 Mechanical Ventilator 50 05/02/19 18:20 15 102/56 Mechanical Ventilator 50 05/02/19 18:09 92 20 100 Mechanical Ventilator 50 88 18 100 05/02/19 17:47 88 18 50 05/02/19 17:35 50 05/02/19 14:48 92 18 Nasal Cannula 99 05/02/19 14:48 98.4 92 18 117/83 99 Nasal Cannula 1.0 05/02/19 13:50 98.4 96 18 107/68 (81) 94 Nasal Cannula Micro: Microbiology Date/Time Source Procedure Growth Status 05/02/19 16:37 Rectum Received Critical Care - Subjective ROS Limited/Unobtainable: No Condition: critical IV Access: central EKG Rhythm: Sinus Rhythm FI02: 50 Vent Support Breath Rate: 18 Vent Support Mode: AC Vent Tidal Volume: 400 Sputum Amount: None PEEP: 5.0 PIP: 29 Gabino Smith MD May 02, 2019 21:38
--- NOTE | 2019-05-02 21:43 | Diagnostic Imaging Report ---
Indication: NG tube placement Comparison: 01/29/2019 Single view of the abdomen obtained Findings: NG tube is in good position. The tip is projected over the stomach as well as the proximal port. There is a bladder catheter in the left flank. This appears to be a percutaneous catheter may be a nephrostomy. Previously demonstrated double-J ureteral stent on the left is no longer seen. There is evidence of platelike atelectasis at the left lung base. IMPRESSION: Nasogastric tube in good position.
--- NOTE | 2019-05-02 21:45 | NUR ---
NURSE NOTES: Dr. Smith called and orders to change AC rate to AC 22 and volume to 450tv
[2019-05-02] MEDS: Heparin 5000 units/ml inj SUBQ SCH (21:51)
[2019-05-02] MEDS: fentaNYL Citrate 2,500 MCG in NS 200 ML IV SCH (21:54)
[2019-05-02] MEDS: Doxycycline Hyclate 100 MG in D5W 110 ML IV SCH (21:55)
[2019-05-02] MEDS: Solu-MEDROL 125mg Inj IVP SCH (21:55)
[2019-05-02] MEDS: D5NS 1,000 ML IV SCH (21:57)
--- NOTE | 2019-05-02 21:58 | NUR ---
NURSE NOTES: STAT rad called to inform me that ETT 7cm above felicia, advance by 3cm and redo CXR.
[2019-05-02] MEDS ORDERED: cefTRIAXone 1 GM in D5W 55 ML IVPB SCH (22:00)
--- NOTE | 2019-05-02 22:00 | NUR ---
NURSE NOTES: CXR at bedside after advancing ETT by 3cm.
[2019-05-02] MEDS: Pantoprazole Inj IVP SCH (22:02)
--- NOTE | 2019-05-02 22:18 | NUR ---
NURSE NOTES: Na Random Urine collected and sent to lab
--- NOTE | 2019-05-02 22:51 | Diagnostic Imaging Report ---
Indication: Dyspnea Comparison: 05/02/2019 at 20:15 A single view chest radiograph was obtained. Findings: Performed at 22:35 The endotracheal tube is somewhat high about 7 cm above the felicia and may be advanced further. NG tube was repositioned and is in good position well within the stomach. A right jugular central venous catheter remains in good position with the tip projected over the SVC. Heart size remains normal. The lungs are clear. IMPRESSION: Endotracheal tube is slightly high and may be advanced further. Nasogastric tube now in satisfactory position
--- NOTE | 2019-05-02 23:00 | NUR ---
NURSE NOTES: Orders from Dr. Smith for VQ scan r/o PE and Renal US and Venous Duplex r/o DVT.
--- NOTE | 2019-05-02 23:30 | NUR ---
NURSE NOTES: FiO2 tritiated down to 40% All due med given Albumin 5% already given RASS maintained at -2. VSS
[2019-05-02] MEDS: Albuterol/Ipratropium 3ml neb HHN SCH (23:40)
[2019-05-02] MEDS: NovoLOG Insulin Flexpen SUBQ SCH (23:54)
[2019-05-03] VITALS (50 sets, daily range): BP systolic 90–144; BP diastolic 58–93
--- NOTE | 2019-05-03 | NUR ---
NURSE NOTES: Repositioned Patient opens eyes to verbal command Able to move arms up slightly VSS Fentanyl increased to 20mcg BP remaining stable
--- NOTE | 2019-05-03 02:00 | NUR ---
NURSE NOTES: Arousable to voice, follows simple commands RASS -1. Vitals have maintained Stable afebrile repositioned
[2019-05-03] MEDS: Albuterol/Ipratropium 3ml neb HHN SCH ×6 (03:48→22:59)
--- NOTE | 2019-05-03 04:28 | NUR ---
NURSE NOTES: Nephrostomy minor leak around exit site of tube Patient cleaned and repositioned Still maintains RASS of -1 Arousable to verbal command 5/5 upper extremity strength Blood drawn and sent to lab
[2019-05-03] MEDS: NovoLOG Insulin Flexpen SUBQ SCH ×3 (05:37→17:18)
[2019-05-03] MEDS: Solu-MEDROL 125mg Inj IVP SCH ×3 (05:37→22:29)
--- NOTE | 2019-05-03 06:06 | Consultation ---
History of Present Illness General Chief Complaint: Altered Level of Consciousness Present Illness Allergies: Coded Allergies: Grits (Unverified Allergy, Unknown, 07/06/17) [place] (Unverified Allergy, Unknown, 07/06/17) Medication History Scheduled Amlodipine Besylate (Norvasc), 5 MG ORAL DAILY, (Reported) Aspirin* (Aspirin*), 325 MG ORAL DAILY, (Reported) Docusate Sodium* (Docusate Sodium*), 250 MG ORAL DAILY, (Reported) Gabapentin* (Gabapentin*), 200 MG ORAL THREE TIMES A DAY, (Reported) Heparin Sod (Porcine) (Heparin Sodium*), 5,000 UNITS SUBQ EVERY 12 HOURS, ( Reported) Levetiracetam (Keppra), 500 MG ORAL EVERY 12 HOURS, (Reported) Multivitamins* (Multivitamins*), 1 TAB ORAL DAILY, (Reported) Olanzapine* (Zyprexa*), 2.5 MG ORAL BEDTIME, (Reported) Quetiapine Fumarate* (Seroquel*), 200 MG ORAL BID, (Reported) Zinc Sulfate (Zinc Sulfate*), 220 MG ORAL DAILY, (Reported) Scheduled PRN Acetaminophen* (Tylenol Extra Strength*), 1,000 MG ORAL Q4HR PRN for Mild Pain/ Temp > 100.5, (Reported) Bisacodyl (Dulcolax), 10 MG RC for Constipation, (Reported) Magnesium Hydroxide (Milk of Magnesia), 30 ML ORAL QHS PRN for Constipation, ( Reported) Na Phos,M-B/Na Phos,Di-Ba* (Fleet Enema*), 133 ML RECTAL DAILY PRN for Constipation, (Reported) Miscellaneous Medications Lacosamide (Vimpat), 100 MG PO, (Reported) Valproic Acid (Valproic Acid), 1,000 MG PO, (Reported) Discontinued Medications Acetaminophen* (Acetaminophen 325MG Tablet*), 325 MG ORAL Q4H PRN for For Pain, (Reported) Discontinued Reason: Therapy completed Acetaminophen* (Acetaminophen 325MG Tablet*), 325 MG ORAL Q4H PRN for Mild Pain/ Temp > 100.5, (Reported) Discontinued Reason: Therapy completed Amino Acids/Protein Hydrolys (Pro-Stat Liquid), 30 ML ORAL DAILY, (Reported) Discontinued Reason: Therapy completed Ascorbic Acid* (Vitamin C*), 500 MG ORAL DAILY, (Reported) Discontinued Reason: Therapy completed Baclofen* (Baclofen*), 10 MG ORAL THREE TIMES A DAY, (Reported) Discontinued Reason: Therapy completed Bisacodyl (Dulcolax), 10 MG RC DAILY, (Reported) Discontinued Reason: Therapy completed Calcium Carbonate/Vitamin D3 (Calcium + Vitamin D Tablet), 1 EACH PO DAILY, ( Reported) Discontinued Reason: Therapy completed Clonazepam* (Klonopin*), 1 MG ORAL Q8HR, (Reported) Discontinued Reason: Therapy completed Clonazepam* (Klonopin*), 1 MG ORAL Q8HR, (Reported) Discontinued Reason: Therapy completed Cranberry Fruit Concentrate (Cranberry), 450 MG PO BID, (Reported) Discontinued Reason: Therapy completed Diphenhydramine Hcl* (Benadryl*), 25 MG ORAL Q6H PRN for Itching, (Reported) Discontinued Reason: Therapy completed Duloxetine Hcl* (Cymbalta*), 60 MG ORAL DAILY, (Reported) Discontinued Reason: Therapy completed Levofloxacin* (Levaquin*), 750 MG ORAL ONCE, (Reported) Discontinued Reason: Therapy completed Magnesium Hydroxide* (Milk Of Magnesia*), 30 ML ORAL QHS PRN for Constipation, ( Reported) Discontinued Reason: Therapy completed Melatonin/Pyridoxine HCl (B6) (Melatonin 3 mg Tablet), 2 EACH PO QHS, (Reported) Discontinued Reason: Therapy completed Meloxicam* (Meloxicam*), 7.5 MG PO DAILY, (Reported) Discontinued Reason: Therapy completed Na Phos,M-B/Na Phos,Di-Ba* (Fleet Enema*), 133 ML RECTAL DAILY PRN for Constipation, (Reported) Discontinued Reason: Therapy completed Olanzapine* (Zyprexa*), 2.5 MG ORAL DAILY, (Reported) Discontinued Reason: Therapy completed Oxycodone Hcl* (Oxycodone Hcl*), 5 MG ORAL Q6H PRN for For Pain, (Reported) Discontinued Reason: Therapy completed Tramadol Hcl* (Ultram*), 50 MG ORAL Q6H PRN for For Pain, (Reported) Discontinued Reason: Therapy completed Trazodone* (Trazodone*), 50 MG ORAL BEDTIME, (Reported) Discontinued Reason: Therapy completed Trazodone* (Trazodone*), 50 MG ORAL BEDTIME, (Reported) Discontinued Reason: Therapy completed Trimethoprim/Sulfamethoxazole 160/800* (Bactrim Ds Tablet*), 1 TAB ORAL TWICE A DAY, (Reported) Discontinued Reason: Therapy completed Patient History Healthcare decision maker self Resuscitation status Full Code Advanced Directive on File No Physical Exam Last 24 Hour Vital Signs Date Time Temp Pulse Resp B/P (MAP) Pulse Ox O2 Delivery O2 Flow Rate FiO2 05/03/19 06:00 78 21 120/82 (95) 99 05/03/19 05:56 71 22 05/03/19 05:30 71 22 107/75 (86) 99 05/03/19 05:30 73 22 40 05/03/19 05:00 71 22 99/64 (76) 99 05/03/19 04:00 Mechanical Ventilator 05/03/19 04:00 71 05/03/19 04:00 22 Mechanical Ventilator 40 05/03/19 04:00 40 05/03/19 04:00 98.8 72 22 94/67 (76) 100 05/03/19 03:48 73 22 100 Mechanical Ventilator 50 76 22 50 05/03/19 03:30 73 23 122/68 (86) 98 05/03/19 03:00 67 21 123/77 (92) 99 05/03/19 03:00 22 Mechanical Ventilator 40 05/03/19 02:30 68 22 111/69 (83) 98 05/03/19 02:15 69 22 112/73 (86) 99 05/03/19 02:00 Mechanical Ventilator 40 05/03/19 02:00 68 22 112/68 (83) 98 05/03/19 01:45 67 22 107/70 (82) 98 05/03/19 01:32 65 22 40 05/03/19 01:30 67 22 113/72 (86) 98 05/03/19 01:15 68 22 116/73 (87) 98 05/03/19 01:00 67 22 117/73 (88) 98 05/03/19 01:00 22 Mechanical Ventilator 40 05/03/19 00:45 65 22 114/76 (89) 98 05/03/19 00:30 64 22 118/74 (89) 98 05/03/19 00:15 63 22 119/74 (89) 99 05/03/19 00:00 40 05/03/19 00:00 65 05/03/19 00:00 24 Mechanical Ventilator 40 05/03/19 00:00 Mechanical Ventilator 05/03/19 00:00 99.1 60 22 126/79 (95) 100 05/02/19 23:45 62 22 116/76 (89) 100 05/02/19 23:36 62 22 100 Mechanical Ventilator 50 65 22 50 05/02/19 23:30 62 22 120/73 (89) 100 05/02/19 23:15 63 22 117/72 (87) 100 05/02/19 23:00 Mechanical Ventilator 50 05/02/19 23:00 63 22 108/67 (81) 100 05/02/19 22:45 62 22 105/70 (82) 100 05/02/19 22:30 61 22 89/63 (72) 100 05/02/19 22:15 66 22 90/62 (71) 99 05/02/19 22:00 22 Mechanical Ventilator 50 05/02/19 22:00 98.8 68 22 84/58 (67) 99 05/02/19 21:54 22 Mechanical Ventilator 50 05/02/19 21:50 50 05/02/19 21:41 73 05/02/19 21:30 98.8 73 22 97/66 (76) 99 05/02/19 21:23 72 19 98 Mechanical Ventilator 50 05/02/19 21:23 72 19 50 05/02/19 21:15 Mechanical Ventilator 05/02/19 21:15 98.4 92 18 123/69 100 Mechanical Ventilator 1.0 50 05/02/19 21:07 Mechanical Ventilator 05/02/19 20:50 18 123/69 Mechanical Ventilator 50 05/02/19 20:50 98.4 96 18 123/69 100 Mechanical Ventilator 1.0 50 05/02/19 19:50 18 124/71 Mechanical Ventilator 50 05/02/19 19:50 98.4 96 18 124/71 100 Mechanical Ventilator 1.0 50 05/02/19 19:35 18 122/71 Mechanical Ventilator 50 20 19:35 98.4 96 18 122/71 100 Mechanical Ventilator 1.0 50 2/20 19:20 18 118/62 Mechanical Ventilator 50 20 19:20 98.4 95 18 126/74 100 Mechanical Ventilator 50 05/02/19 19:05 18 112/62 Mechanical Ventilator 50 05/02/19 19:05 98.4 98 18 118/62 100 Mechanical Ventilator 50 05/02/19 19:00 86 18 50 05/02/19 18:50 19 112/62 Mechanical Ventilator 50 05/02/19 18:49 19 Mechanical Ventilator 50 05/02/19 18:35 18 110/70 Mechanical Ventilator 50 05/02/19 18:20 15 102/56 Mechanical Ventilator 50 05/02/19 18:09 92 20 100 Mechanical Ventilator 50 88 18 100 05/02/19 17:47 88 18 50 05/02/19 17:35 50 05/02/19 14:48 92 18 Nasal Cannula 99 05/02/19 14:48 98.4 92 18 117/83 99 Nasal Cannula 1.0 05/02/19 13:50 98.4 96 18 107/68 (81) 94 Nasal Cannula Intake and Output 05/02/19 05/03/19 19:00 07:00 Intake Total 0 ml 3300.79 ml Output Total 70 ml 760 ml Balance -70 ml 2540.79 ml Intake Oral 0 ml IV Total 3300.79 ml Output Urine Total 70 ml 760 ml Laboratory Tests Test 05/02/19 16:00 05/02/19 16:30 05/02/19 17:53 05/02/19 19:20 White Blood Count 14.6 K/UL (4.8-10.8) H Red Blood Count 2.76 M/UL (4.20-5.40) L Hemoglobin 8.8 G/DL (12.0-16.0) L Hematocrit 28.3 % (37.0-47.0) L Mean Corpuscular Volume 102 FL (80-99) H Mean Corpuscular Hemoglobin 31.9 PG (27.0-31.0) H Mean Corpuscular Hemoglobin Concent 31.1 G/DL (32.0-36.0) L Red Cell Distribution Width 14.8 % (11.6-14.8) Platelet Count 191 K/UL (150-450) Mean Platelet Volume 7.8 FL (6.5-10.1) Neutrophils (%) (Auto) 80.2 % (45.0-75.0) H Lymphocytes (%) (Auto) 7.6 % (20.0-45.0) L Monocytes (%) (Auto) 11.3 % (1.0-10.0) H Eosinophils (%) (Auto) 0.3 % (0.0-3.0) Basophils (%) (Auto) 0.6 % (0.0-2.0) Sodium Level 138 MMOL/L (136-145) Potassium Level 4.0 MMOL/L (3.5-5.1) Chloride Level 101 MMOL/L (98-107) Carbon Dioxide Level 18 MMOL/L (21-32) L Anion Gap 19 mmol/L (5-15) H Blood Urea Nitrogen 124 mg/dL (7-18) H Creatinine 5.0 MG/DL (0.55-1.30) H Estimat Glomerular Filtration Rate 8.9 mL/min (>60) Glucose Level 109 MG/DL (74-106) H Lactic Acid Level 0.70 mmol/L (0.4-2.0) Calcium Level 9.4 MG/DL (8.5-10.1) Total Bilirubin 0.3 MG/DL (0.2-1.0) Aspartate Amino Transf (AST/SGOT) 27 U/L (15-37) Alanine Aminotransferase (ALT/SGPT) 25 U/L (12-78) Alkaline Phosphatase 84 U/L (46-116) Total Creatine Kinase 25 U/L (26-308) L Creatine Kinase MB 0.8 NG/ML (0.0-3.6) Creatine Kinase MB Relative Index 3.2 Troponin I 0.000 ng/mL (0.000-0.056) Total Protein 7.6 G/DL (6.4-8.2) Albumin 1.8 G/DL (3.4-5.0) L Globulin 5.8 g/dL Albumin/Globulin Ratio 0.3 (1.0-2.7) L Triglycerides Level 376 MG/DL (30-150) H Urine Color Pale yellow Urine Appearance Turbid Urine pH 5 (4.5-8.0) Urine Specific [place] 1.010 (1.005-1.035) Urine Protein 3+ (NEGATIVE) H Urine Glucose (UA) Negative (NEGATIVE) Urine Ketones Negative (NEGATIVE) Urine Blood 4+ (NEGATIVE) H Urine Nitrite Positive (NEGATIVE) H Urine Bilirubin Negative (NEGATIVE) Urine Urobilinogen Normal MG/DL (0.0-1.0) Urine Leukocyte Esterase 3+ (NEGATIVE) H Urine RBC Tntc /HPF (0 - 2) H Urine WBC Tntc /HPF (0 - 2) H Urine Squamous Epithelial Cells Moderate /LPF (NONE/OCC) H Urine Bacteria Many /HPF (NONE) H Arterial Blood pH 7.238 (7.350-7.450) Arterial Blood Partial Pressure CO2 45.4 mmHg (35.0-45.0) H Arterial Blood Partial Pressure O2 92.4 mmHg (75.0-100.0) Arterial Blood HCO3 18.9 mmol/L (22.0-26.0) L Arterial Blood Oxygen Saturation 95.4 % (95-100) Arterial Blood Base Excess -8.1 (-2-2) L Miguel Angel Test Positive Test 05/02/19 22:00 Urine Random Sodium 71 mmol/L (20-110) Microbiology Date/Time Source Procedure Growth Status 05/02/19 16:37 Rectum Received Height (Feet): 5 Height (Inches): 3.00 Weight (Pounds): 181 Medications Current Medications Medications (Trade) Dose Ordered Sig/William Route PRN Reason Start Time Stop Time Status Last Admin Dose Admin Acetaminophen (Tylenol) 650 mg Q6H PRN NG Mild Pain/Temp > 100.5 05/02/19 20:45 06/01/19 20:44 Albuterol/ Ipratropium (Albuterol/ Ipratropium) 3 ml Q4H PRN HHN Shortness of Breath 05/02/19 20:45 05/07/19 20:44 Albuterol/ Ipratropium (Albuterol/ Ipratropium) 3 ml Q4HRT HHN 05/02/19 23:00 05/07/19 22:59 05/03/19 03:48 Ceftriaxone Sodium 1 gm/ Dextrose 55 ml @ 110 mls/hr Q24H IVPB 05/03/19 17:00 05/10/19 16:59 Chlorhexidine Gluconate (Genevieve-Hex 2%) 1 applic DAILY@2000 TOPIC 05/03/19 20:00 06/02/19 19:59 Dextrose (Dextrose 50%) 25 ml Q30M PRN IV Hypoglycemia 05/02/19 20:45 06/01/19 20:44 Dextrose (Dextrose 50%) 50 ml Q30M PRN IV Hypoglycemia 05/02/19 20:45 06/01/19 20:44 Dextrose/Sodium Chloride 1,000 ml @ 100 mls/hr Q10H IV 05/02/19 21:56 06/01/19 21:55 05/02/19 21:57 Doxycycline Hyclate 100 mg/ Dextrose 110 ml @ 110 mls/hr Q12HR IV 05/02/19 21:00 05/09/19 20:59 05/02/19 21:55 Fentanyl Citrate 2500 mcg/Sodium Chloride 250 ml @ 0 mls/hr Q24H IV 05/02/19 19:03 05/09/19 19:02 05/02/19 21:54 Heparin Sodium (Porcine) (Heparin 5000 units/ml) 5,000 units EVERY 12 HOURS SUBQ 05/02/19 21:00 06/01/19 20:59 05/02/19 21:51 Insulin Aspart (NovoLOG) Q6HR SUBQ 05/03/19 00:00 06/02/19 00:00 05/03/19 05:37 Lorazepam (Ativan 2mg/ml 1ml) 0.5 mg Q2H PRN IV Agitation 05/02/19 20:45 05/09/19 20:44 Methylprednisolone Sodium Succinate (Solu-MEDROL) 60 mg EVERY 8 HOURS IVP 05/02/19 22:00 06/01/19 21:59 05/03/19 05:37 Norepinephrine Bitartrate 4 mg/ Dextrose 250 ml @ 0 mls/hr Q24H PRN IV For hypotension 05/02/19 21:27 06/01/19 21:26 Pantoprazole (Protonix) 40 mg Q12HR IVP 05/02/19 22:00 06/02/19 08:59 05/02/19 22:02 Assessment/Plan Assessment/Plan: Hematology Consultation Reason for Hospitalization: AMS, intubated Referring physician: JORGE LUIS MAGDALENO Reason for Consultation: Leukocytosis, Anemia Date patient seen: 05/03/2019 ID 58y old female well known to me at this time presents with complaints of ongoing ams, unresponsive and was intubated in er, transferred to the icu, currently altered, labs were noted, more anemic than before, prior admissions were reviewed as well as recs of consultants, imaging noted, meds reviewed and exam I have seen her before as well, with anemia, at this time she was at her snf and was hypoxemic, intubated in the er, by er md. Home Medications noted Med list reviewed/reconciled: Yes Allergies: Grits (Unverified Allergy, Unknown, 07/06/17) [place] (Unverified Allergy, Unknown, 07/06/17) Patient History History Provided By: Patient, Medical Record PMH Narrative Past Medical History: see triage record Pertinent Family History: none Reviewed Nursing Documentation: PMH: Agreed; PSxH: Agreed Nursing Documentation-PMH Hx Hypertension: Yes - edema, osteomyelitis, HTN Hx Cancer: No Hx Gastrointestinal Problems: No Hx Seizures: Yes Social History: Denies: smoking, alcohol use, drug use, other ROS All Other Systems: negative except mentioned in HPI PE Vital Signs Gen: unresponsive Pulm: intubated on vent CV: RRR, no mgr Abd: soft, nt, d Ext: no cce, s/p bka lle Labs: noted Imaging: reviewed Assessment/Plan: # Anemia of chronic disease (or of iron deficiency) due to underlying chronic medical issues, multifactorial --> Anemia workup has been ordered, rule out gi bleed --> No evidence of hemolysis is noted, peripheral smear has been reviewed. --> Hgb goal >7. Transfuse prn. --> Epogen or iron at this time is not particularly indicated --> Medications have been reviewed --> low threshold for gi evaluation in case has occult + --> hgb trend 11.7-->10.7-->7.4 # Leukocytosis is likely related to infection, reactive process, v infection v intubation, in past had esbl uti --> have reviewed peripheral smear and bandemia/neutrophilia noted --> continue antibiotics if they have been started by ID team --> monitor for resolution --> trend as needed --> also is on steriods # Left kidney mass -- 5 cm low-attenuation lesion demonstrating slightly higher than normal fluid attenuation coming off of the upper pole left kidney --> likely represents a complex possibly proteinaceous cyst, but necrotic solid mass also possible --> as per uro, appears stable # Dehydration --> ivf have been started --> anti-nausea meds started # S/P BKA (below knee amputation) unilateral --> left leg s/p amputation # Anxiety --> as per psych # Left hydronephrosis --> per uro # Resp failure s/p intubation --> intub 05/02 # Critically ill requiring icu adm on 05/03 # Dvt ppx heparin sq The timing of this note does not necessarily reflect the time of the patient was seen. Greatly appreciate consultation. Colby Canada MD May 03, 2019 06:06
--- NOTE | 2019-05-03 06:10 | NUR ---
NURSE NOTES: Repositioned NAD Sleeping at this time but easily arousable Remains RASS -1
[2019-05-03 06:44] LABS: HEMATOCRIT 22.2 % (37.0-47.0); HEMOGLOBIN 7.4 G/DL (12.0-16.0); MEAN CORPUSCULAR VOLUME 96 FL (80-99); PLATELET COUNT 255 K/UL (150-450); RED BLOOD COUNT 2.31 M/UL (4.20-5.40); RED CELL DISTRIBUTION WIDTH 14.6 % (11.6-14.8); WHITE BLOOD COUNT 11.3 K/UL (4.8-10.8)
[2019-05-03 06:46] LABS: AMMONIA 27 umol/L (11-32)
--- NOTE | 2019-05-03 07:10 | NUR ---
NURSE NOTES: Received report from GUZMAN Iglesias. Patient is awake, alert and able to follow simple command. ETT 7.5/22cm at lip line with vent setting AC 22, VT 450, FiO2 40% and Peep 5. NPO status. Left NGT intact and clamped. Left nephrostomy to drain. Right IJ TLC intact, clean and running Fentanyl 20mcg/hr and D5NS 100ml/hr. Bilateral soft wrist bands restraints on. Both hands are warm to touch. Held fentanyl drip for weaning. Kept dry, clean, comfortable and HOB>30. Will continue plan of care.
--- NOTE | 2019-05-03 07:11 | NUR ---
NURSE NOTES: Seen by Dr. Canada.
[2019-05-03 07:15] LABS: % IRON SATURATION 70 % (15-50); IRON 71 ug/dL (50-175); TOTAL IRON BINDING CAPACITY 102 ug/dL (250-450)
--- NOTE | 2019-05-03 07:23 | NUR ---
HAND-OFF: Report given to Andrew HINDS.
[2019-05-03 07:28] LABS: CREATINE KINASE 38 U/L (26-308); GAMMA GLUTAMYL TRANSPEPTIDASE 29 U/L (5-85); PHOSPHORUS 6.1 MG/DL (2.5-4.9)
--- NOTE | 2019-05-03 07:33 | NUR ---
NURSE NOTES: Seen by Dr. Walls and assessed patient.
--- NOTE | 2019-05-03 07:35 | NUR ---
NURSE NOTES: Talked with Dr. Smith and ABG is ordered. Will follow up.
--- NOTE | 2019-05-03 07:36 | Pulmonolgy Critical Care Note ---
Critical Care - Asmt/Plan Assessment/Plan: Pulmonary CCM Conultation HPI This patient is a 58 year old woman with past history of Chronic Obstructive Pulmonary Disease, Seizures, Previous CVA/TIA, Hypertension, CAD, Cerviacl cancer s/p Uropathy - has B/L Nephrostomy tubes, Chronic kidney disease, Peripheral vascular disease sp LLE amputation, Schizophrenia, [facility] with shortness of breath, fever, N/V and hypoxemia. Patient requires Rapid Sequence Intubation in the Emergency Department - noted to have severe bronchospasm. Intubated Interactive, Hematology followi ng for anemia Allergies: Grits [place] Past Medical History: see triage record, old chart reviewed, HTN, CAD, asthma, COPD, GERD, CVA/TIA, seizures, psych hx - schizophrenia, renal disease, other - cervical ca s/p obstructive uropathy s/p BL nephrostomy tubes, muscle weakness Past Surgical History: other - L. BKA Social History: Denies: smoking, alcohol use, drug use All Other Systems: negative except mentioned in HPI Physical Exam Vital Signs Noted General Appearance: no apparent distress, sedate on the ventilator, pale, non- toxic Head: normocephalic, atraumatic Eyes: bilateral eye normal inspection, bilateral eye PERRL ENT: hearing grossly normal, normal pharynx, ETT, NGT Neck: full range of motion, supple/symm/no masses Respiratory: chest non-tender, CTAB Cardiovascular: regular rate, rhythm, HS1, HS2 normal, no edema Gastrointestinal: normal bowel sounds, non tender, soft, non-distended, no guarding, no rebound Rectal: deferred Musculoskeletal: back normal, normal range of motion, non-tender, other - L. 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 Medications Critical care time: 45 minutes, 23 minutes care co-ordination DW: KAYLEE, RN Laboratory Tests Noted Test 05/02/19 16:00 05/02/19 16:30 05/02/19 17:53 White Blood Count 14.6 K/UL (4.8-10.8) H Red Blood Count 2.76 M/UL (4.20-5.40) L Hemoglobin 8.8 G/DL (12.0-16.0) L Hematocrit 28.3 % (37.0-47.0) L Mean Corpuscular Volume 102 FL (80-99) H Mean Corpuscular Hemoglobin 31.9 PG (27.0-31.0) H Mean Corpuscular Hemoglobin Concent 31.1 G/DL (32.0-36.0) L Red Cell Distribution Width 14.8 % (11.6-14.8) Platelet Count 191 K/UL (150-450) Mean Platelet Volume 7.8 FL (6.5-10.1) Neutrophils (%) (Auto) 80.2 % (45.0-75.0) H Lymphocytes (%) (Auto) 7.6 % (20.0-45.0) L Monocytes (%) (Auto) 11.3 % (1.0-10.0) H Eosinophils (%) (Auto) 0.3 % (0.0-3.0) Basophils (%) (Auto) 0.6 % (0.0-2.0) Sodium Level 138 MMOL/L (136-145) Potassium Level 4.0 MMOL/L (3.5-5.1) Chloride Level 101 MMOL/L (98-107) Carbon Dioxide Level 18 MMOL/L (21-32) L Anion Gap 19 mmol/L (5-15) H Blood Urea Nitrogen 124 mg/dL (7-18) H Creatinine 5.0 MG/DL (0.55-1.30) H Estimate Glomerular Filtration Rate 8.9 mL/min (>60) Glucose Level 109 MG/DL (74-106) H Lactic Acid Level 0.70 mmol/L (0.4-2.0) Calcium Level 9.4 MG/DL (8.5-10.1) Total Bilirubin 0.3 MG/DL (0.2-1.0) Aspartate Amino Transferase (AST) 27 U/L (15-37) Alanine Aminotransferase (ALT) 25 U/L (12-78) Alkaline Phosphatase 84 U/L (46-116) Total Creatine Kinase 25 U/L (26-308) L Creatine Kinase MB 0.8 NG/ML (0.0-3.6) Creatine Kinase MB Relative Index 3.2 Troponin I 0.000 ng/mL (0.000-0.056) Total Protein 7.6 G/DL (6.4-8.2) Albumin 1.8 G/DL (3.4-5.0) L Globulin 5.8 g/dL Albumin/Globulin Ratio 0.3 (1.0-2.7) L Triglycerides Level 376 MG/DL (30-150) H Urine Color Pending Urine Appearance Pending Urine pH Pending Urine Specific [place] Pending Urine Protein Pending Urine Glucose (UA) Pending Urine Ketones Pending Urine Blood Pending Urine Nitrite Pending Urine Bilirubin Pending Urine Urobilinogen Pending Urine Leukocyte Esterase Pending EKG: Rate: normal Rhythm: NSR ST Segments: no acute changes Chest X-Ray: no effusion, no pneumothorax, other possible- RLL opacity CXR #2: Appropriate ET tube placement s/p RSI Critical Care - Objective Last 24 Hour Vital Signs Date Time Temp Pulse Resp B/P (MAP) Pulse Ox O2 Delivery O2 Flow Rate FiO2 05/03/19 07:16 83 22 100 Mechanical Ventilator 40 82 22 40 05/03/19 06:00 Mechanical Ventilator 40 05/03/19 06:00 78 21 120/82 (95) 99 05/03/19 05:56 71 22 05/03/19 05:30 71 22 107/75 (86) 99 05/03/19 05:30 73 22 40 05/03/19 05:00 71 22 99/64 (76) 99 05/03/19 05:00 22 Mechanical Ventilator 40 05/03/19 04:00 Mechanical Ventilator 05/03/19 04:00 71 05/03/19 04:00 22 Mechanical Ventilator 40 05/03/19 04:00 40 05/03/19 04:00 98.8 72 22 94/67 (76) 100 05/03/19 03:48 73 22 100 Mechanical Ventilator 50 76 22 50 05/03/19 03:30 73 23 122/68 (86) 98 05/03/19 03:00 67 21 123/77 (92) 99 05/03/19 03:00 22 Mechanical Ventilator 40 05/03/19 02:30 68 22 111/69 (83) 98 05/03/19 02:15 69 22 112/73 (86) 99 05/03/19 02:00 Mechanical Ventilator 40 05/03/19 02:00 68 22 112/68 (83) 98 05/03/19 01:45 67 22 107/70 (82) 98 05/03/19 01:32 65 22 40 05/03/19 01:30 67 22 113/72 (86) 98 05/03/19 01:15 68 22 116/73 (87) 98 05/03/19 01:00 67 22 117/73 (88) 98 05/03/19 01:00 22 Mechanical Ventilator 40 05/03/19 00:45 65 22 114/76 (89) 98 05/03/19 00:30 64 22 118/74 (89) 98 05/03/19 00:15 63 22 119/74 (89) 99 05/03/19 00:00 40 05/03/19 00:00 65 05/03/19 00:00 24 Mechanical Ventilator 40 05/03/19 00:00 Mechanical Ventilator 05/03/19 00:00 99.1 60 22 126/79 (95) 100 05/02/19 23:45 62 22 116/76 (89) 100 05/02/19 23:36 62 22 100 Mechanical Ventilator 50 65 22 50 05/02/19 23:30 62 22 120/73 (89) 100 05/02/19 23:15 63 22 117/72 (87) 100 05/02/19 23:00 Mechanical Ventilator 50 05/02/19 23:00 63 22 108/67 (81) 100 05/02/19 22:45 62 22 105/70 (82) 100 05/02/19 22:30 61 22 89/63 (72) 100 05/02/19 22:15 66 22 90/62 (71) 99 05/02/19 22:00 22 Mechanical Ventilator 50 05/02/19 22:00 98.8 68 22 84/58 (67) 99 05/02/19 21:54 22 Mechanical Ventilator 50 05/02/19 21:50 50 05/02/19 21:41 73 05/02/19 21:30 98.8 73 22 97/66 (76) 99 05/02/19 21:23 72 19 98 Mechanical Ventilator 50 05/02/19 21:23 72 19 50 20 21:15 Mechanical Ventilator 05/02/19 21:15 98.4 92 18 123/69 100 Mechanical Ventilator 1.0 50 20 21:07 Mechanical Ventilator 05/02/19 20:50 18 123/69 Mechanical Ventilator 50 05/02/19 20:50 98.4 96 18 123/69 100 Mechanical Ventilator 1.0 50 05/02/19 19:50 18 124/71 Mechanical Ventilator 50 05/02/19 19:50 98.4 96 18 124/71 100 Mechanical Ventilator 1.0 50 05/02/19 19:35 18 122/71 Mechanical Ventilator 50 05/02/19 19:35 98.4 96 18 122/71 100 Mechanical Ventilator 1.0 50 05/02/19 19:20 18 118/62 Mechanical Ventilator 50 05/02/19 19:20 98.4 95 18 126/74 100 Mechanical Ventilator 50 05/02/19 19:05 18 112/62 Mechanical Ventilator 50 05/02/19 19:05 98.4 98 18 118/62 100 Mechanical Ventilator 50 05/02/19 19:00 86 18 50 05/02/19 18:50 19 112/62 Mechanical Ventilator 50 05/02/19 18:49 19 Mechanical Ventilator 50 05/02/19 18:35 18 110/70 Mechanical Ventilator 50 05/02/19 18:20 15 102/56 Mechanical Ventilator 50 05/02/19 18:09 92 20 100 Mechanical Ventilator 50 88 18 100 05/02/19 17:47 88 18 50 05/02/19 17:35 50 05/02/19 14:48 92 18 Nasal Cannula 99 05/02/19 14:48 98.4 92 18 117/83 99 Nasal Cannula 1.0 05/02/19 13:50 98.4 96 18 107/68 (81) 94 Nasal Cannula Micro: Microbiology Date/Time Source Procedure Growth Status 05/02/19 16:37 Rectum Received Accucheck: 201 Critical Care - Subjective ROS Limited/Unobtainable: Yes Condition: improving EKG Rhythm: Sinus Rhythm FI02: 40 Vent Support Breath Rate: 22 Vent Support Mode: AC Vent Tidal Volume: 450 Sputum Amount: Small PEEP: 5.0 PIP: 23 I&O: Intake and Output 05/02/19 05/03/19 19:00 07:00 Intake Total 0 ml 3504.79 ml Output Total 70 ml 760 ml Balance -70 ml 2744.79 ml Intake Oral 0 ml IV Total 3504.79 ml Output Urine Total 70 ml 760 ml ET-Tube: 7.5 ET Position: 22 Gabino Smith MD May 03, 2019 07:36
[2019-05-03 07:45] LABS: ALANINE AMINOTRANSFERASE 25 U/L (12-78); ALBUMIN 2.1 G/DL (3.4-5.0); ALBUMIN/GLOBULIN RATIO 0.4 (1.0-2.7); ALKALINE PHOSPHATASE 71 U/L (46-116); ANION GAP 16 mmol/L (5-15); ASPARTATE AMINO TRANSFERASE 21 U/L (15-37); BILIRUBIN,TOTAL 0.3 MG/DL (0.2-1.0); BLOOD UREA NITROGEN 112 mg/dL (7-18); CALCIUM 9.2 MG/DL (8.5-10.1); CARBON DIOXIDE 19 MMOL/L (21-32); CHLORIDE 103 MMOL/L (98-107); CHOLESTEROL 169 MG/DL (< 200); CREATININE 4.4 MG/DL (0.55-1.30); FERRITIN 1551 NG/ML (8-388); HDL CHOLESTEROL 10 MG/DL (40-60); POTASSIUM 3.8 MMOL/L (3.5-5.1); SODIUM 138 MMOL/L (136-145); TRIGLYCERIDES 372 MG/DL (30-150)
--- NOTE | 2019-05-03 08:11 | NUR ---
Spoke with GUZMAN Morales regarding stat order for NM Lung V/Q Scan. Per Andrew, pt unable to perform V/Q scan today. Will try for tomorrow.
--- NOTE | 2019-05-03 08:20 | NUR ---
NURSE NOTES: Informed Dr. Smith that ABG results. No new order at this time. Keep same vent setting. Will continue plan of care.
[2019-05-03] MEDS: Doxycycline Hyclate 100 MG in D5W 110 ML IV SCH ×3 (08:36→21:33)
[2019-05-03] MEDS: D5NS 1,000 ML IV SCH ×2 (08:36→17:18)
[2019-05-03] MEDS: Heparin 5000 units/ml inj SUBQ SCH ×2 (08:36→21:00)
[2019-05-03] MEDS: Pantoprazole Inj IVP SCH ×2 (08:36→21:17)
[2019-05-03] MEDS ORDERED: Pantoprazole Inj IVP SCH (09:00)
--- NOTE | 2019-05-03 09:08 | Diagnostic Imaging Report ---
Indication:Elevated Bun and Creatinine. Technique: Grayscale and duplex Doppler imaging of the kidneys performed. Comparison: 07/12/2018 ultrasound. Bilateral ureteral stent placement intraoperative imaging 01/31/2019 Findings: The size and contour of kidneys appear normal bilaterally. There is moderate right hydronephrosis currently demonstrated with dilatation of the calyces and renal pelvis. The right kidney measures 14.7 cm in length. The left kidney is normal in size and contour. Linear shadowing echogenic foci within the left kidney consistent with a stent noted. There are a few cysts present within the kidney largest of which is about 1.6 cm. The left kidney measures 10.8 cm in length. IVC is patent. Urinary bladder is not visualized. There is a moderate degree of bowel gas within the pelvis which may account for this. IMPRESSION: Moderate right hydronephrosis. This is apparently new at least since the last exam from 07/12/2018. More recent exam had shown placement of a ureteral stent on the right which we're told was removed. Consider noncontrast CT for further evaluation. Left ureteral stent the partially visualized. No hydronephrosis in the left kidney. Nonvisualization of the bladder .
--- NOTE | 2019-05-03 09:15 | NUR ---
NURSE NOTES: Seen by Dr. Boyd Solis and assessed patient.
[2019-05-03] MEDS: Cefepime HCl 1 GM in D5W 55 ML IVPB SCH (10:10)
--- NOTE | 2019-05-03 10:41 | Diagnostic Imaging Report ---
Indication:Leg pain and swelling Technique: Grayscale and duplex Doppler imaging of the veins in both lower extremities performed in real time utilizing compression and augmentation. Comparison: None Findings: Duplex Doppler interrogation of the veins in both lower extremity is performed from the common femoral vein to the popliteal vein. Normal venous compressibility demonstrated throughout. No thrombus identified. Waveform analysis shows good respiratory phasicity and augmentation. Left BKA noted. IMPRESSION: No evidence of deep venous thrombosis involving the lower extremities.
--- NOTE | 2019-05-03 11:00 | NUR ---
NURSE NOTES: Seen by Wound Care Nurse, treatment given as ordered. Bed bath given.
--- NOTE | 2019-05-03 11:32 | NUR ---
NURSE NOTES: Seen by Dr. Hatch. No new order at this time.
--- NOTE | 2019-05-03 11:47 | NUR ---
RD ASSESSMENT & RECOMMENDATIONS SEE CARE ACTIVITY FOR COMPLETE ASSESSMENT DAILY ESTIMATED NEEDS: Needs based on Critical Care, renal; 60kg abw 22-28 kcals/kg 1646-6599 total kcals 0.8-1.2 g protein/kg 48-72 g total protein 25-30 mL/kg 7257-6868 total fluid mLs NUTRITION DIAGNOSIS: * Swallowing difficulty r/t respiratory failure as evidenced by pt orally intubated, NGT in place, NPO at this time. * Altered nutrition related lab values R/T CKD, DM as evidenced by elev creat (5.0 -> 4.4), elev phos (6.1), elev POC glu (200's). CURRENT TF: NPO PO DIET RECOMMENDATIONS: GLOBAL HUMAN RESOURCES DIRECTOR eval post extubation. ENTERAL NUTRITION RECOMMENDATIONS: Nepro @ 35ml/hr x 24 hrs to provide 840ml, 1512kcal, 68g prot, 605ml free water * As medically appropriate, initiate Nepro @ 15ml/hr x 6 hrs, advance 10ml q 4-6 hrs as tolerated to goal rate. * HOB over 30 degrees/ water flush per MD ADDITIONAL RECOMMENDATIONS: 1) Per SNF: HT= 5'4" WT on 04/1947=727#, c/w current bedscale wt of 182.5# -> maintain calibrated bed scale wt 2) Monitor renal fxn and lytes (elev phos) 3) Wound healing: Add Nephrovite x 1 Don 1pkt BID (mix w/ 4oz water) 4) Monitor BGs closely w/ Solumedrol, need for long acting insulin .
--- NOTE | 2019-05-03 12:30 | Consultation ---
DATE OF CONSULTATION: 05/03/2019 INFECTIOUS DISEASES CONSULTATION CONSULTING PHYSICIAN: Jose Solis M.D. PRIMARY ATTENDING PHYSICIAN: Isela Rubio M.D. REASON FOR CONSULT: Sepsis, complicated UTI, and pneumonia. HISTORY OF PRESENT ILLNESS: This is a 58-year-old white female admitted yesterday from nursing facility complaining of shortness of breath, hypoxemia, and also nausea and vomiting. The patient developed acute respiratory failure in the ER, intubated, transferred to the ICU, started on antibiotics. At the time of admission had leukocytosis of 14.6. PAST MEDICAL HISTORY: COPD, hypertension, anemia, left below-knee amputation, had history of bilateral hydronephrosis and obstructive uropathy. In previous admission in January 2019, the patient had right JJ stent, and has chronic kidney disease. ALLERGIES: Grits and [place]. MEDICATIONS: Getting ceftriaxone, insulin, albuterol ipratropium inhaler, methylprednisone, Protonix, norepinephrine, doxycycline, heparin. SOCIAL HISTORY: senior care resident. . Smoker. REVIEW OF SYSTEMS: Unobtainable. The patient is on restraints, but opens eyes. PHYSICAL EXAMINATION: VITAL SIGNS: Temperature 98.8, pulse 82, blood pressure is 120/82. GENERAL APPEARANCE: Seems to be well developed. HEAD AND NECK: Orally intubated. NG tube. HEART: Normal rate. LUNGS: On ventilator, decreased sounds. ABDOMEN: Soft and nontender. EXTREMITIES: No edema. Has left below-knee amputation. SKIN: Sacral ulcer. LABORATORY AND DIAGNOSTIC DATA: Sodium 138, potassium 3.8, chloride 103, bicarb 19, BUN 112, creatinine 4.4, glucose 214, albumin is 2.1. WBC today is 11.3, hemoglobin 7.4, hematocrit 22.2, platelet is 255. The latest chest x-ray showed right IJ central line, left basilar atelectasis and consolidation. UA showed wbc too numerous to count, rbc too numerous to count, nitrite positive. Urine culture growing gram-negative bacilli. IMPRESSION: Complicated UTI, pneumonia, and atelectasis in left lung, COPD, anemia, acute renal failure, chronic kidney disease, history of hydronephrosis, and has sacral ulcer. RECOMMENDATION: Check for influenza A and B tests. We will ask for abdominal ultrasound. We will follow up the cultures. We will order a sputum culture. Continue IV doxycycline. We will change ceftriaxone to cefepime. At the end of my exam, I thank Dr. Rubio, for involving me in the care of this patient. Jose Solis M.D. DR: CRISTINA JOB#: [id number] CC:
--- NOTE | 2019-05-03 12:40 | Diagnostic Imaging Report ---
Indication: Dyspnea Comparison: 05/02/2019 17:50 A single view chest radiograph was obtained. Findings: Performed 20:15 Nasogastric tube is curled in the mid esophagus and the requires repositioning. At the time of interpretation of this examination, the subsequent chest x-ray was already performed showing good positioning of the nasogastric tube which was repositioned. Heart size is normal. The lungs are clear. IMPRESSION: Current study showing curled nasogastric tube in the midesophagus.
[2019-05-03] MEDS ORDERED: D5NS 1000ml IV ONE (13:10)
[2019-05-03] MEDS ORDERED: NS 275ml ONE (13:10)
--- NOTE | 2019-05-03 13:15 | Consultation ---
Consult Note Consult Note asked to eval at the request of Dr Freeman for renal failure- patient seen and examined at 9.45 am Known to me from her previous admission intubated data reviewed ER: This patient presents from a [facility] facility. The patient has multiple chronic medical problems to include schizophrenia, recurrent urinary tract infections, seizures, COPD, CVA, chronic kidney disease, peripheral vascular disease, has a nephrostomy tube. The patient presents for shortness of breath and hypoxemia per report. Also there was report of a fever. Patient herself has no specific complaints at this time. Allergies: Grits (Unverified Allergy, Unknown, 07/06/17) [place] (Unverified Allergy, Unknown, 07/06/17) Past Medical History: see triage record, old chart reviewed, HTN, CAD, asthma, COPD, GERD, CVA/TIA, seizures, psych hx - schizophrenia, renal disease, other - cervical ca s/p obstructive uropathy s/p BL nephrostomy tubes. Past Surgical History: other - L. BKA Hx Cardiac Problems: Yes Hx Hypertension: Yes Hx Gastrointestinal Problems: Yes - NAUSEA/ VOMTING Hx Neurological Problems: Yes Hx Seizures: Yes Hx Weakness: Yes - MUSCULAR . Assessment/Plan Acute on Chronic Renal Failure + Severe dehydration h/o ? kidney mass h/o hydronephrosis - has Nephrostomie Anemia Ventilator Dependent Respiratory failure pulmonary infiltrate / Urinary tract infection h/o ESBL UTI from [facility] Seizure disorder on Clonazepam and Gabapentin Schizophrenia Hypertension, presented with low BP Obesity Hydrate monitor renal parameters Urology eval avoid nephrotoxics per consultants Derrell Hathc MD May 03, 2019 13:15
--- NOTE | 2019-05-03 13:19 | NUR ---
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 98.5 HR 96 RR 18 B/P 107/68 AC 22 TV 450 FIO2 100% PEEP 5 PH 7.23 PCO2 45.4 PO2 92.4 HCO3 18.9 O2 SAT 95.4 WBC 14.6 BUN 125 CR 5.0 URINE+ BLOOD,PROTEIN,NITRITES,LEUOKOCYTE ESTERASE,BACTERIA CXR= NEGATIVE IS: IV BOLUS NS X 1 LITER ROCEPHIN IV ADMITTED TO ICU @ 2114 ICU STATUS DCP PENDING HOSPITAL STAY
--- NOTE | 2019-05-03 13:30 | NUR ---
Frame Stylist: Collected sputum and nasal swab for Inf., sent to the lab.
--- NOTE | 2019-05-03 13:43 | NUR ---
VENDING TECHNICIAN NOTE SW is admitted to ICU on 05/02/2019. Pt is orally intubated, and sedated at this time. Per chart review, pt presents as A&O 1x and non-ambulatory. There is no AD/POLST in the chart. PT resides at [address] [address]. Emergency contact is listed as pt's friend Audra Grider [phone]. SW attempted to call Audra Grider but no answer w/o vm option. There is no other emergency salesperson shoes listed. SW will continue to F/U. Signed: 05/03/19 at 1347 by MELQUIADES NEGRON <Co-Signature Required>
--- NOTE | 2019-05-03 15:25 | Diagnostic Imaging Report ---
Indication: Abdominal distention/pain. Elevated renal function tests. Leukocytosis. Technique: Grayscale and duplex Doppler imaging of the abdomen performed. Comparison: None Findings: The liver is enlarged measuring approximately 20 cm.. Doppler interrogation of the main portal vein shows patency with hepatopedal, monophasic flow. There is no biliary ductal dilatation identified. Gallbladder is unremarkable. There demonstrated part of the pancreas, aorta and IVC show no definite abnormalities. There is moderate right hydroureteronephrosis demonstrated. Only the renal pelvis and calyces are seen and a very small amount of the proximal ureter. Majority of the ureters not visualized on this examination. Finding is unchanged from the earlier study. There is no hydronephrosis involving the left kidney. There is partial visualization of fine intraureteral stent. Urinary bladder is not visualized once again. IMPRESSION: Hepatomegaly. Moderate right hydronephrosis unchanged from earlier today. Please refer to the kidney ultrasound report from earlier today. IMPRESSION: No acute findings
--- NOTE | 2019-05-03 16:08 | NUR ---
NURSE NOTES: Repositioned patient.
--- NOTE | 2019-05-03 16:38 | NUR ---
NURSE NOTES:WOUND CARE NOTES:Pt presented on admission with Unstageable pressure injury sacrum . Base of wound has 90% soft tse slough with surrounding erythematous borders (L)2.7cm x (W)2cm. Inferior to sacral pressure injury Moisture Intertrigo noted to cleft of buttocks-perianal area. Erythema with moisture denudement noted(L)5cm. Additionally, two areas noted to R and L clefts of buttocks. Both purple areas without erythema or induration. Diffused red rash noted to thoracic -lumbar area. open stoma from previously extracted nephrostomy draining large amt of urine. Skin is erythematous peristomal. Skin Barrier Wipe applied peristomal. Eakins ring applied peristomal and Urostomy pouch placed over stoma and connected to drainage bag. L BKA stump without evidene of skin breakdown. R heel is soft but blanchable. No other skin concerns noted. Tx.plan: Cleanse Sacral wound with Saline. Apply TheraHoney. Apply Moisture Barrier Paste periwound. Cover with Optifoam drsg . Change Daily and prn. Apply Moisture Barrier paste to thoracic- lumbar area daily and prn. Apply Moisture Barrier paste to cleft of buttocks with each incontinence care. Apply Cavilon Skin Barrier to R heel. Cover with Optifoam drsg. Change every 7 days and prn. Reposition at least every 2hours or as tolerated. Off-load R heel with pillow. APM/BHAVIN Mattress overlay.
[2019-05-03] MEDS ORDERED: cefTRIAXone 1 GM in D5W 55 ML IVPB SCH (17:00)
--- NOTE | 2019-05-03 17:02 | NUR ---
NURSE NOTES: Put on P200 Mattress.
--- NOTE | 2019-05-03 17:33 | NUR ---
NURSE NOTES: Seen by Dr. Smith and assessed patient. New orders read back and confirmed.
--- NOTE | 2019-05-03 18:10 | NUR ---
NURSE NOTES: Bed bath given. Patient is still on fentanyl 20mcg/hr with RASS -1. No distress/SOB noted. Able to follow simple commands.
[2019-05-03] MEDS: Gabapentin 300 MG/6 ML Soln NG SCH (18:47)
[2019-05-03] MEDS ORDERED: FLUOXETINE HCL20 MG ORAL (18:57)
[2019-05-03] MEDS ORDERED: ACETAMINOPHEN325 M1 ORAL (19:02)
[2019-05-03] MEDS: fentaNYL Citrate 2,500 MCG in NS 200 ML IV SCH (19:03)
[2019-05-03] MEDS ORDERED: NORCO 5-325 TA1 EACH ORAL (19:04)
[2019-05-03] MEDS ORDERED: TRAZODONE HCL50 MG ORAL (19:05)
--- NOTE | 2019-05-03 19:14 | NUR ---
RESPIRATORY NOTE: Received pt on AC 22, 450VT, 40%, PEEP +5. Pt intubated w/ ETT 7.5 @ 21cm lipline, secured by anchorfast. Ptis awake, responds to stimuli. B/S annita. diminished, sxn small amounts of thin, clear-white secretions. Both hands on soft restraints to prevent pt from self-extubation. Vent plugged into red outlet, ambubag at bedside. Pt in no apparent distress at this time. Will continue to monitor pt.
--- NOTE | 2019-05-03 19:30 | Consultation ---
DATE OF CONSULTATION: 05/03/2019 GASTROENTEROLOGY CONSULTATION CHIEF COMPLAINT: I was asked to see this patient by Dr. Isela Rubio for evaluation of anemia and feeding issues. HISTORY OF PRESENT ILLNESS: The patient is a 58-year-old white woman with multiple medical problems including chronic obstructive pulmonary disease, who comes into the hospital due to shortness of breath. Shortly thereafter, she had respiratory failure and has been placed on ventilator. In addition, she has had a recent obstructive uropathy and has had bilateral ureterostomies. Only one side is functional at this time. The patient also has extensive vascular disease and has undergone left sikvv-wfl-byio amputation. During admission process, she was also found to be in renal failure and severe anemia. She has nasogastric tube placed for feeding and medication. The patient is intubated but arousable. She is unable to provide any history due to her medical status. PAST MEDICAL HISTORY: History of chronic obstructive pulmonary disease, seizure disorder, prior history of stroke, hypertension, coronary artery disease, cervical cancer, obstructive uropathy, chronic kidney disease, peripheral vascular disease status post left lower extremity [id number] amputation, schizophrenia. ALLERGIES: Grits and hominy. FAMILY HISTORY: Noncontributory and unavailable. SOCIAL HISTORY: The patient is from a [place] [facility]. Other than that, no social history at this time is obtainable. REVIEW OF SYSTEMS: Unobtainable. MEDICATIONS: See the chart list for details. PHYSICAL EXAMINATION: GENERAL: Debilitated white woman, seen in the intensive care unit with ventilator. HEENT: Normocephalic and atraumatic. There is endotracheal tube in place. NECK: Supple. CHEST: Reveals coarse breath sounds. CARDIOVASCULAR: Revealed regular rate. ABDOMEN: Soft with nephrostomy tube in the left flank. EXTREMITIES: Revealed left [id number] amputation. LABORATORY DATA: Noted. ASSESSMENT: This patient presents with multiple medical issues including respiratory, urologic, renal, and hematologic diseases. The patient's anemia is notable, but she also has creatinine of 4.4 and I feel this may be due to chronic renal disease. Her iron panel is not consistent with iron deficiency, but I will check stool for occult blood. In the meantime, she can be transfused as necessary and her CBC should be followed closely although attention has to be paid to her multiple medical disorders including respiratory and renal failure, and other parameters. The tube feedings can be started tonight until she is extubated and able to eat by mouth. RECOMMENDATIONS: Per above discussion and per orders written in the chart. Thank you for asking me to participate in the care of this patient. Landon Walls M.D. DR: Carina JOB#: [id number] CC:
--- NOTE | 2019-05-03 19:30 | NUR ---
NURSE NOTES: received pt calmed easily arousable to verbal stimuli, orally intubated on AC mode, sedated with Fentanyl drip at 20mcg/min. SR on the monitor SBp on the 90-100s, Tolerating NGt fdg Glucerna at 15ml. HOB kept elevated, watch for any resp. distress. Bilateral soft wrist restraints on for safety to avoid self extubation. Pt has stage 3 decub covered with optifoam , On P 200 mattress. turned q 2hrs PRN with good skin care done. Pt also has ileal conduit nephrostomy tube on her left flank and a pouch on her right flank with yellowish urine coming out. monitor i and O. Monitor lytes. will continue to monitor.
--- NOTE | 2019-05-03 19:34 | NUR ---
HAND-OFF: Report given to GUZMAN Mata. Endorsed plan of care.
[2019-05-03] MEDS: Dyna-Hex 2% Top Sol 2oz TOPIC SCH (20:11)
--- NOTE | 2019-05-03 21:00 | NUR ---
NURSE NOTES: Dr wolfe was here and examined pt, no orders given.
--- NOTE | 2019-05-03 21:09 | Cardiology Progress Note ---
Assessment/Plan Assessment/Plan The patient is seen and examined, full consult note will be dictated shortly. Objective Last 24 Hour Vital Signs Date Time Temp Pulse Resp B/P (MAP) Pulse Ox O2 Delivery O2 Flow Rate FiO2 05/03/19 20:58 62 22 40 05/03/19 20:33 65 05/03/19 20:30 63 23 92/60 (71) 99 05/03/19 20:00 22 Mechanical Ventilator 40 05/03/19 20:00 Mechanical Ventilator 05/03/19 20:00 99.0 63 22 90/62 (71) 99 05/03/19 20:00 40 05/03/19 19:30 63 22 99/60 (73) 99 05/03/19 19:20 65 22 100 Mechanical Ventilator 40 05/03/19 19:10 65 22 Mechanical Ventilator 40 40 05/03/19 19:00 99.5 66 23 103/66 (78) 100 05/03/19 19:00 22 Mechanical Ventilator 40 05/03/19 18:00 72 22 118/71 (87) 100 05/03/19 18:00 99.5 05/03/19 18:00 22 Mechanical Ventilator 40 05/03/19 17:30 71 24 141/76 (97) 100 05/03/19 17:30 71 24 40 05/03/19 17:00 66 22 128/79 (95) 99 05/03/19 17:00 22 Mechanical Ventilator 40 05/03/19 16:30 66 22 108/72 (84) 98 05/03/19 16:00 40 05/03/19 16:00 22 Mechanical Ventilator 40 05/03/19 16:00 Mechanical Ventilator 05/03/19 16:00 101.2 66 22 107/69 (82) 98 05/03/19 16:00 71 05/03/19 15:30 84 22 113/75 (88) 98 05/03/19 15:20 67 22 98 Mechanical Ventilator 40 69 22 40 05/03/19 15:00 22 Mechanical Ventilator 40 05/03/19 15:00 67 22 103/73 (83) 99 05/03/19 14:30 71 22 111/62 (78) 99 05/03/19 14:00 71 22 136/85 (102) 99 05/03/19 14:00 22 Mechanical Ventilator 40 05/03/19 13:30 69 22 118/76 (90) 100 05/03/19 13:00 71 21 123/81 (95) 100 05/03/19 13:00 22 Mechanical Ventilator 40 05/03/19 12:40 74 23 40 05/03/19 12:30 73 21 112/67 (82) 100 05/03/19 12:00 22 Mechanical Ventilator 40 05/03/19 12:00 78 05/03/19 12:00 99.6 80 20 122/75 (91) 100 05/03/19 12:00 40 05/03/19 12:00 Mechanical Ventilator 05/03/19 11:30 80 17 120/88 (99) 100 05/03/19 11:00 22 Mechanical Ventilator 40 05/03/19 11:00 79 21 144/81 (102) 98 05/03/19 10:56 73 22 100 Mechanical Ventilator 40 76 25 40 05/03/19 10:30 74 21 111/74 (86) 100 05/03/19 10:00 22 Mechanical Ventilator 40 05/03/19 10:00 77 21 99/71 (80) 100 05/03/19 09:30 79 22 103/68 (80) 100 05/03/19 09:00 86 18 122/80 (94) 100 05/03/19 09:00 16 Mechanical Ventilator 40 05/03/19 08:55 86 26 40 05/03/19 08:30 90 18 120/74 (89) 100 05/03/19 08:00 88 05/03/19 08:00 98.1 85 22 131/93 (106) 100 05/03/19 08:00 Mechanical Ventilator 05/03/19 08:00 40 05/03/19 07:30 78 22 90/67 (75) 100 05/03/19 07:16 83 22 100 Mechanical Ventilator 40 82 22 40 05/03/19 07:00 82 21 133/80 (97) 99 05/03/19 07:00 22 Mechanical Ventilator 40 05/03/19 06:00 Mechanical Ventilator 40 05/03/19 06:00 78 21 120/82 (95) 99 05/03/19 05:56 71 22 05/03/19 05:30 71 22 107/75 (86) 99 05/03/19 05:30 73 22 40 05/03/19 05:00 71 22 99/64 (76) 99 05/03/19 05:00 22 Mechanical Ventilator 40 05/03/19 04:00 Mechanical Ventilator 05/03/19 04:00 71 05/03/19 04:00 22 Mechanical Ventilator 40 05/03/19 04:00 40 05/03/19 04:00 98.8 72 22 94/67 (76) 100 05/03/19 03:48 73 22 100 Mechanical Ventilator 50 76 22 50 05/03/19 03:30 73 23 122/68 (86) 98 05/03/19 03:00 67 21 123/77 (92) 99 05/03/19 03:00 22 Mechanical Ventilator 40 05/03/19 02:30 68 22 111/69 (83) 98 05/03/19 02:15 69 22 112/73 (86) 99 05/03/19 02:00 Mechanical Ventilator 40 05/03/19 02:00 68 22 112/68 (83) 98 05/03/19 01:45 67 22 107/70 (82) 98 05/03/19 01:32 65 22 40 05/03/19 01:30 67 22 113/72 (86) 98 05/03/19 01:15 68 22 116/73 (87) 98 05/03/19 01:00 67 22 117/73 (88) 98 05/03/19 01:00 22 Mechanical Ventilator 40 05/03/19 00:45 65 22 114/76 (89) 98 05/03/19 00:30 64 22 118/74 (89) 98 05/03/19 00:15 63 22 119/74 (89) 99 05/03/19 00:00 40 05/03/19 00:00 65 05/03/19 00:00 24 Mechanical Ventilator 40 05/03/19 00:00 Mechanical Ventilator 05/03/19 00:00 99.1 60 22 126/79 (95) 100 05/02/19 23:45 62 22 116/76 (89) 100 05/02/19 23:36 62 22 100 Mechanical Ventilator 50 65 22 50 05/02/19 23:30 62 22 120/73 (89) 100 05/02/19 23:15 63 22 117/72 (87) 100 05/02/19 23:00 Mechanical Ventilator 50 05/02/19 23:00 63 22 108/67 (81) 100 05/02/19 22:45 62 22 105/70 (82) 100 05/02/19 22:30 61 22 89/63 (72) 100 05/02/19 22:15 66 22 90/62 (71) 99 05/02/19 22:00 22 Mechanical Ventilator 50 05/02/19 22:00 98.8 68 22 84/58 (67) 99 05/02/19 21:54 22 Mechanical Ventilator 50 05/02/19 21:50 50 05/02/19 21:41 73 05/02/19 21:30 98.8 73 22 97/66 (76) 99 05/02/19 21:23 72 19 98 Mechanical Ventilator 50 05/02/19 21:23 72 19 50 05/02/19 21:15 Mechanical Ventilator 05/02/19 21:15 98.4 92 18 123/69 100 Mechanical Ventilator 1.0 50 Intake and Output 05/02/19 05/03/19 18:59 06:59 Intake Total 0 ml 3504.79 ml Output Total 70 ml 760 ml Balance -70 ml 2744.79 ml Intake Oral 0 ml IV Total 3504.79 ml Output Urine Total 70 ml 760 ml Laboratory Tests Test 05/02/19 22:00 05/03/19 04:00 Urine Random Sodium 71 mmol/L (20-110) White Blood Count 11.3 K/UL (4.8-10.8) H Red Blood Count 2.31 M/UL (4.20-5.40) L Hemoglobin 7.4 G/DL (12.0-16.0) L Hematocrit 22.2 % (37.0-47.0) L Mean Corpuscular Volume 96 FL (80-99) Mean Corpuscular Hemoglobin 31.9 PG (27.0-31.0) H Mean Corpuscular Hemoglobin Concent 33.3 G/DL (32.0-36.0) Red Cell Distribution Width 14.6 % (11.6-14.8) Platelet Count 255 K/UL (150-450) Mean Platelet Volume 5.7 FL (6.5-10.1) L Neutrophils (%) (Auto) % (45.0-75.0) Lymphocytes (%) (Auto) % (20.0-45.0) Monocytes (%) (Auto) % (1.0-10.0) Eosinophils (%) (Auto) % (0.0-3.0) Basophils (%) (Auto) % (0.0-2.0) Differential Total Cells Counted 100 Neutrophils % (Manual) 96 % (45-75) H Lymphocytes % (Manual) 2 % (20-45) L Monocytes % (Manual) 2 % (1-10) Eosinophils % (Manual) 0 % (0-3) Basophils % (Manual) 0 % (0-2) Band Neutrophils 0 % (0-8) Platelet Estimate Adequate Platelet Morphology Normal Hypochromasia 3+ Anisocytosis 1+ Spherocytes 2+ Arterial Blood pH 7.310 (7.350-7.450) Arterial Blood Partial Pressure CO2 37.6 mmHg (35.0-45.0) Arterial Blood Partial Pressure O2 123.1 mmHg (75.0-100.0) H Arterial Blood HCO3 18.5 mmol/L (22.0-26.0) L Arterial Blood Oxygen Saturation 97.9 % (95-100) Arterial Blood Base Excess -7.1 (-2-2) L Miguel Angel Test Positive Sodium Level 138 MMOL/L (136-145) Potassium Level 3.8 MMOL/L (3.5-5.1) Chloride Level 103 MMOL/L (98-107) Carbon Dioxide Level 19 MMOL/L (21-32) L Anion Gap 16 mmol/L (5-15) H Blood Urea Nitrogen 112 mg/dL (7-18) H Creatinine 4.4 MG/DL (0.55-1.30) H Estimat Glomerular Filtration Rate 10.3 mL/min (>60) Glucose Level 214 MG/DL (74-106) #H Hemoglobin A1c 5.3 % (4.3-6.0) Lactic Acid Level 0.50 mmol/L (0.4-2.0) Calcium Level 9.2 MG/DL (8.5-10.1) Phosphorus Level 6.1 MG/DL (2.5-4.9) H Magnesium Level 2.3 MG/DL (1.8-2.4) Iron Level 71 ug/dL (50-175) Total Iron Binding Capacity 102 ug/dL (250-450) L Percent Iron Saturation 70 % (15-50) H Unsaturated Iron Binding 31 ug/dL (112-346) L Ferritin 1551 NG/ML (8-388) H Total Bilirubin 0.3 MG/DL (0.2-1.0) Gamma Glutamyl Transpeptidase 29 U/L (5-85) Aspartate Amino Transf (AST/SGOT) 21 U/L (15-37) Alanine Aminotransferase (ALT/SGPT) 25 U/L (12-78) Alkaline Phosphatase 71 U/L (46-116) Ammonia 27 umol/L (11-32) Total Creatine Kinase 38 U/L (26-308) Troponin I 0.000 ng/mL (0.000-0.056) C-Reactive Protein, Quantitative 21.5 mg/dL (0.00-0.90) H Total Protein 8.0 G/DL (6.4-8.2) Albumin 2.1 G/DL (3.4-5.0) L Globulin 5.9 g/dL Albumin/Globulin Ratio 0.4 (1.0-2.7) L Triglycerides Level 372 MG/DL (30-150) H Cholesterol Level 169 MG/DL (< 200) LDL Cholesterol 63 mg/dL (<100) HDL Cholesterol 10 MG/DL (40-60) L Cholesterol/HDL Ratio 16.9 (3.3-4.4) H Lipase 66 U/L (73-393) L Vitamin B12 Level 1037 PG/ML (193-986) H Folate 11.9 NG/ML (8.6-58.9) Thyroid Stimulating Hormone (TSH) 0.989 uiU/mL (0.358-3.740) Cortisol AM Sample Pending Microbiology Date/Time Source Procedure Growth Status 05/02/19 15:40 Blood Blood Culture - Preliminary Resulted 05/03/19 13:25 Nasal Nares - Final Complete 05/03/19 13:25 Nasal Nares - Final Complete 05/02/19 17:53 Urine,Clean Catch Urine Culture - Preliminary Gram Negative Bacillus 1 Resulted 05/02/19 16:37 Rectum Received Justo Merchant MD May 03, 2019 21:09
[2019-05-03] MEDS: levETIRAcetam 500mg/5ml Liquid NG SCH (21:17)
[2019-05-03] MEDS ORDERED: fentaNYL Citrate 1000 MCG in NS 100ml IV SCH (22:00)
--- NOTE | 2019-05-03 22:45 | Consultation ---
DATE OF CONSULTATION: 05/03/2019 CARDIOLOGY CONSULTATION CONSULTING PHYSICIAN: Justo Merchant M.D. REFERRING PHYSICIAN: Isela Rubio M.D. REASON FOR CONSULTATION: Management of hypotension. HISTORY OF PRESENT ILLNESS: The patient is a very unfortunate 58-year-old lady, resident of a correction facility with multiple medical problems, who was brought to this facility for shortness of breath and hypoxemia according to the report. The patient also was reported to have fever. At the time of arrival to this facility, she did not have any specific complaints. Initial blood pressure was 107/68 mmHg and heart rate was 96. 12-lead electrocardiogram was significant for sinus rhythm at a rate of 82 with no acute ischemic changes. The patient in the emergency department become dyspneic, therefore got intubated. Initial chest x-ray showed no evidence of acute cardiopulmonary disease, however, she found to have leukocytosis with left shift in addition to anemia and her worsening of her chronic kidney disease with creatinine up to 4.4. Her initial troponin I level was 0. She was admitted to intensive care unit for evaluation and management of possible septic shock. Cardiology consultation was made at request of Dr. Rubio for management of shock, hemodynamic instability. From the cardiac standpoint, the patient had 2D echocardiography in 01/2019, which revealed normal LV systolic function with LVEF of 60% and normal pulmonary artery pressure measured at 31 mmHg. At that time, the patient was found to have normal diastolic function. PAST MEDICAL HISTORY: Schizophrenia, recurrent urine tract infections, status post nephrostomy tube placement; COPD, CVA, chronic kidney disease, peripheral vascular disease, status post left BKA; history of hypertension, history of coronary artery disease, history of seizure disorder, cervical CA, status post obstructive uropathy. PAST SURGICAL HISTORY: Left BKA, bilateral nephrostomy tube placement. SOCIAL HISTORY: Denies any tobacco, alcohol, or illicit drug use. ALLERGIES: Some allergies to grits. FAMILY HISTORY: No premature coronary artery disease in first-degree relatives. REVIEW OF SYSTEMS: Currently, the patient is intubated, so 12-system review cannot be obtained. MEDICATIONS: The list of medications in the nursing facility includes acetaminophen 1000 mg q.4 hours p.r.n. pain, amlodipine 5 mg daily, aspirin 325 mg daily, Dulcolax 10 mg RC as needed constipation, Colace 250 mg daily, fluoxetine 60 mg p.o. daily, gabapentin 200 mg 3 times a day, heparin sodium 5000 units subcutaneous q.12 hours, [place] 5/325 one tablet q.6 hours p.r.n. pain, Vimpat 100 mg p.o. twice daily, Keppra 500 mg q.12 hours, magnesium hydroxide 30 mL at bedtime as needed constipation, Fleet enema, Zyprexa 2.5 mg at bedtime, Seroquel 200 mg p.o. twice daily, Desyrel 50 mg at bedtime as needed depression, and valproic acid 1000 mg p.o. three times a day. PHYSICAL EXAMINATION: VITAL SIGNS: Blood pressure at the time of arrival to the hospital was 107/68, pulse of 96, temperature 98.4 degrees Fahrenheit, O2 saturation 94% on nasal cannula, and respirations 18. Blood pressure dropped to 90/62 mmHg with a mean of 71 mmHg. Currently, the patient's mean arterial pressure was 66 mmHg. GENERAL: The patient is a very unfortunate 58-year-old female, morbidly obese, intubated, awake. HEENT: Atraumatic and normocephalic. Anicteric. Pupils are equal, round, and reactive to light and accommodation. Conjunctival pallor is present. NECK: JVP cannot be assessed due to the fact that the patient is on the ventilator. No carotid bruit. Carotid upstrokes 2+ bilaterally. CARDIOVASCULAR: Normal S1, S2. Regular rate and rhythm. No murmurs, gallops, or rubs. PMI is at fourth intercostal space in the midclavicular line. LUNGS: Clear to auscultation bilaterally. ABDOMEN: Soft, nondistended. No hepatosplenomegaly. Positive bowel sounds. Bilateral nephrostomy tubes. EXTREMITIES: Left BKA, otherwise no edema, clubbing, or cyanosis. LABORATORY FINDINGS: WBC 14.6, hemoglobin 8.8, hematocrit of 28.3, and platelet count is 191. Chemistry shows sodium of 138, potassium is 3.8, chloride is 103, bicarbonate is 19, BUN of 112, creatinine 4.4, glucose is 214. Hemoglobin A1c 5.3. Calcium is 9.2. Magnesium is 2.3. Troponin I is 0. LDL 63, HDL 10, triglycerides 372, and TSH is 0.98. ASSESSMENT/PLAN: The patient is a very unfortunate 58-year-old lady who was seen in cardiology consultation. 1. Hypotension, most likely septic shock. the patient is awake, I would like to start the patient on Levophed drip if mean arterial pressure drops below 65 mmHg. The patient is currently taking 100 mL per hour D5 NS, which will be decreased as the patient has chronic kidney disease. 1.1. Her urination is around 50 to 70 mL per hour. Of note, 2D echocardiography obtained in month of January had shown normal LV systolic and diastolic function with LVEF of approximately 60%. 1.2. We will repeat 2D echocardiography to assist hemodynamic management. 2. History of peripheral vascular disease, status post left BKA. 3. History of CVA/TIA. 4. Acute respiratory failure. Chest x-ray shows no acute cardiopulmonary disease. Concern about pulmonary embolism. A 2D echocardiography can shed light in this condition as well. 5. Obstructive uropathy, status post nephrostomy tube placement. 6. Acute kidney injury on CKD. 7. Seizure disorder. Follow up with Neurology. 8. Mixed hyperlipidemia with metabolic syndrome including elevation of triglyceride, although HDL increased ratio all in favor of increased risk for cardiovascular events. I would like to thank, Dr. Rubio, for the courtesy of this consultation. Total amount of time spent in the intensive care unit of [facility], reviewing the records from 01/2019 admission, discussed the plan of care with the nursing staff as well as primary care physician is 50 minutes. Justo Merchant M.D. DR: RACH JOB#: [id number] CC:
--- NOTE | 2019-05-03 23:00 | NUR ---
NURSE NOTES: suctioned small whitish tn secretions moderate in amt. oral care done.
[2019-05-04] VITALS (36 sets, daily range): BP systolic 94–158; BP diastolic 47–128
[2019-05-04] MEDS: NovoLOG Insulin Flexpen SUBQ SCH ×4 (00:31→18:35)
--- NOTE | 2019-05-04 01:49 | NUR ---
NURSE NOTES: wasted 200ml of Fentanyl . witnessed by charge attendantGUZMAN Leos.
--- NOTE | 2019-05-04 02:00 | History and Physical Report ---
DATE OF ADMISSION: 05/02/2019 HISTORY OF PRESENT ILLNESS: The patient admitted for respiratory failure. The patient was first talkative at the ER with the ER doctor who was sent from the senior living because of altered mental status and hypoxia. The patient also had a left nephrostomy tube in place for renal failure. According to the ER doctor, the patient suddenly had a bronchospasm and the ER doctor had to intubate her to protect her airway and was transferred to ICU. The patient also is a psychiatric patient. The patient admitted with hypoxia and shortness of breath. There was also report of fever. Cannot obtain any history at this point. PAST MEDICAL HISTORY: Renal failure, hypertension, CAD, asthma, COPD, GERD, CVA, seizures, psychosis, schizophrenia, renal failure, obstructive uropathy, cervical cancer. The patient also has a history of hypertension as well as a history of seizures in the past. Basically, also has past medical history of hypertension, constipation, and seizure disorder. PAST SURGICAL HISTORY: Left nephrostomy tube. The patient used to have bilateral nephrostomy tube but she one of them. The patient also has left BKA. MEDICATIONS: Depakote, trazodone, Seroquel, olanzapine, Keppra, gabapentin, Colace, Bisacodyl, aspirin, Norvasc. ALLERGIES: Grits and hominy. FAMILY HISTORY: Noncontributory. SOCIAL HISTORY: Denies history of alcohol or illicit drugs. Does have history of smoking. Comes from a senior living. REVIEW OF SYSTEMS: Unable to obtain. The patient is intubated, however, is alert. PHYSICAL EXAMINATION: VITAL SIGNS: Temperature 99, pulse 63, blood pressure 90/63. HEENT: PERRLA. NECK: Supple. No lymphadenopathy. CHEST: Clear to auscultation. CARDIOVASCULAR: Regular rate and rhythm. No murmurs or extra sounds. GASTROINTESTINAL: Soft, nontender, nondistended. No organomegaly. EXTREMITIES: Does have left BKA. Left nephrostomy tube in place. NEUROLOGIC: The patient is alert and follows commands. LABORATORY DATA: WBC of 14.6, hemoglobin 8.8, and platelets of 191. Sodium 138, potassium 3.8, BUN of 112, creatinine is 4.4, and glucose of 214. ASSESSMENT/PLAN: 1. Acute renal failure. 2. Respiratory failure, rule out bronchospasm. 3. The patient also has a history of seizure disorder. 4. The patient also has multiple problems. I have consulted the multiple doctors to see this complex patient that includes Dr. Hatch and Dr. Smith as well as Dr. Jose Solis and the convertible top installer has also been consulted as well as the knurling machine tender and legal writing professor. We will monitor the patient very closely. Isela Rubio M.D. DR: Michael JOB#: [id number] CC:
--- NOTE | 2019-05-04 02:00 | NUR ---
NURSE NOTES: Tolerating Fdg well HOB kept elevated. On aspiration precaution.
[2019-05-04] MEDS: Albuterol/Ipratropium 3ml neb HHN SCH ×6 (02:57→23:10)
[2019-05-04] MEDS: D5NS 1,000 ML IV SCH (03:28)
--- NOTE | 2019-05-04 03:54 | NUR ---
NURSE NOTES: Complete bath with bed changed was done.
[2019-05-04 05:32] LABS: ALANINE AMINOTRANSFERASE 26 U/L (12-78); ALBUMIN 1.9 G/DL (3.4-5.0); ALBUMIN/GLOBULIN RATIO 0.4 (1.0-2.7); ALKALINE PHOSPHATASE 64 U/L (46-116); ANION GAP 12 mmol/L (5-15); ASPARTATE AMINO TRANSFERASE 26 U/L (15-37); BILIRUBIN,TOTAL 0.2 MG/DL (0.2-1.0); BLOOD UREA NITROGEN 102 mg/dL (7-18); CARBON DIOXIDE 19 MMOL/L (21-32); CHLORIDE 115 MMOL/L (98-107); CREATININE 3.6 MG/DL (0.55-1.30); POTASSIUM 3.6 MMOL/L (3.5-5.1); SODIUM 146 MMOL/L (136-145)
[2019-05-04 05:38] LABS: HEMOGLOBIN 7.1 G/DL (12.0-16.0); MEAN CORPUSCULAR VOLUME 96 FL (80-99); PLATELET COUNT 277 K/UL (150-450); RED BLOOD COUNT 2.18 M/UL (4.20-5.40); RED CELL DISTRIBUTION WIDTH 14.9 % (11.6-14.8)
[2019-05-04] MEDS: Solu-MEDROL 125mg Inj IVP SCH ×3 (05:50→22:06)
[2019-05-04 05:51] LABS: PHOSPHORUS 5.1 MG/DL (2.5-4.9)
--- NOTE | 2019-05-04 06:00 | NUR ---
NURSE NOTES: Turned off Fentanyl drip for weaning this am.
--- NOTE | 2019-05-04 07:00 | NUR ---
RESPIRATORY NOTES: Received Patient on vent settings ACVC RR 22, VT 450, FIO2 40%, PEEP +5. Patient intubated with 7.5 ETT secured at 21cm at the lip, secured with anchorfast. Patient alert and alert X4. Suction minimal amount of clear secretions through tube and mouth Q2 and PRN. Vent plugged into red outlet. Alarms are on and audible. Will continue to monitor throughout the day.
--- NOTE | 2019-05-04 07:10 | NUR ---
NURSE NOTES: Received pt from GUZMAN Mata. pt is awake, sedation is off for weaning this AM. Orally intubated with ETT 7.5/22cm at lip line, AC 22/TV 450/Fio2 40%/peep +5, SPo2 100%. left NGT clamped for weaning. Pt has bilateral nephrostomies, left side with nephrostomy tube conencted to drainage bag and right side only draining pouch noted. Left BKA noted, elevated on pillows. RIJ TLC running D5NS@100ml/hr. SR on monitoring analyst. Patient is occasionally pulling on restraints, reoriented and provided talk therapy. Bed locked, alarmed and in lowest position. Will continue plan of care.
--- NOTE | 2019-05-04 07:26 | NUR ---
RESPIRATORY NOTES: Weaning passed and started at 0726. Placed Patient on PS +8 PEEP +5 FIO2 40%. RSBI 50, NIF -22, SPON RR 18, SPON VT 600. Patient tolerating well. Will continue to closely monitor.
--- NOTE | 2019-05-04 07:29 | NUR ---
HAND-OFF: Report given to Marjan HINDS.
--- NOTE | 2019-05-04 07:45 | NUR ---
RESPIRATORY NOTES: Patient self extubated at 0745. Placed on Venti mask 10LPM 45% FIO2 tolerating well.
--- NOTE | 2019-05-04 08:08 | NUR ---
NURSE NOTES: Patient self extubated at 0745 during weaning on CPAP/PS 8. Placed her on venturi mask fio2 45%. oxygen saturation is 99-100%. VSS. No stridor noted. Patient is awake, talkative and requesting ice chips. Speech is clear and non-garbled.Alert to name, and currently president only, disoriented to place/time/year. No signs of respiratory distress. Notified Dr. Smith and received orders for STAT ABG post extubation. Will carry out orders and closely monitor patient.
--- NOTE | 2019-05-04 08:23 | CDS Physician Query ---
Clarification is required for compliance, coding accuracy, and to reflect severity of illness for this patient Dear Dr. Hatch, Date: 05.04.19 CDS: Miguel Nichols Please Clarify if you mean: Consultation reads" acute on chronic renal failure" . GFR 05.02.19 8.9 05.03.19 10.3 05.04.19 13.1 Stages Description GFR [ ] CKD Stage 1 Caused by DM, HTN, etc. with kidney abnormality 90 mL/min or more [ ] CKD Stage 2 Mild decrease in Kidney function 60 to 89 mL/min [ ] CKD Stage 3 Moderate decrease in kidney function 30- 59 [ ] CKD Stage 4 Severe decrease in kidney function 15-29 [ ] CKD Stage 5 Kidney failure; requiring dialysis or transplantation < 15 [ ] ESRD Patient requiring dialysis for > 3 months or kidney transplant irrespective of level of GFR; Applicable for 1 year after kidney transplant [ *] Other: [ *] Comment/Explanation: too early for quesry- mainly acute Present on Admission: [ ] Yes [ ] No [ ] Clinically Undetermined Physician signature Date Please also document in your Progress Notes and/or Discharge Summary and indicate if the condition was present on admission. KATED
--- NOTE | 2019-05-04 08:33 | CDS Physician Query ---
Dear Dr. Merchant, Date: 05.04.19 CDS: Miguel Nichols Clarification is required for compliance, coding accuracy, and to reflect severity of illness for this patient Hypotension, most likely septic shock. the patient is awake, I would like to start the patient on Levophed drip if mean arterial pressure drops below 65 mmHg. According to the clinical indications above, please indicate below the condition PHYSICIAN RESPONSE: Sepsis SIRS SIRS with organ dysfunction Septic Shock Not applicable Other: Present on Admission: Yes No Clinically Undetermined Physician signature Date Please also document in your Progress Notes and/or Discharge Summary and indicate if the condition was present on admission. KATED
[2019-05-04] MEDS: Pantoprazole Inj IVP SCH ×2 (08:38→21:25)
[2019-05-04] MEDS: Cefepime HCl 1 GM in D5W 55 ML IVPB SCH (08:38)
[2019-05-04] MEDS: levETIRAcetam 500mg/5ml Liquid NG SCH ×2 (08:38→21:24)
[2019-05-04] MEDS: Lacosamide 50mg tablet ORAL SCH (08:39)
[2019-05-04] MEDS: Heparin 5000 units/ml inj SUBQ SCH ×2 (08:44→21:00)
[2019-05-04] MEDS: Gabapentin 300 MG/6 ML Soln NG SCH ×3 (08:44→18:34)
--- NOTE | 2019-05-04 09:00 | NUR ---
NURSE NOTES: Notiffied Dr. [place] regarding H/H: 7.1/21.0, received orders to infuse 1 PRBC. Consent obtained by MD and patient.
--- NOTE | 2019-05-04 09:01 | NUR ---
NURSE NOTES: Notified Dr. bhatia of ABG results. Received orders to place patient on BIPAP 15/5, titrate Fio2 to meet Spo2 90-96%. Will notify Dr. Hatch of ABG results.
--- NOTE | 2019-05-04 09:58 | Pulmonolgy Critical Care Note ---
Critical Care - Asmt/Plan Assessment/Plan: Pulmonary CCM Progress Note HPI This patient is a 58 year old woman with past history of Chronic Obstructive Pulmonary Disease, Seizures, Previous CVA/TIA, Hypertension, CAD, Cerviacl cancer s/p Uropathy - has B/L Nephrostomy tubes, Chronic kidney disease, Peripheral vascular disease sp LLE amputation, Schizophrenia, admitted from [facility] facility with shortness of breath, fever, N/V and hypoxemia. Patient requires Rapid Sequence Intubation in the Emergency Department - noted to have severe bronchospasm. Self extubated, on BiPAP PRN Persistent hyperchloremic metabolic acidosis Hematology following for anemia UTI - ESBL GNR, pos BC for GNR Allergies: Grits [place] Past Medical History: see triage record, old chart reviewed, HTN, CAD, asthma, COPD, GERD, CVA/TIA, seizures, psych hx - schizophrenia, renal disease, other - cervical ca s/p obstructive uropathy s/p BL nephrostomy tubes, muscle weakness Past Surgical History: other - L. BKA Social History: Denies: smoking, alcohol use, drug use All Other Systems: negative except mentioned in HPI Physical Exam Vital Signs Noted General Appearance: no apparent distress, awake, non-toxic Head: normocephalic, atraumatic Eyes: bilateral eye normal inspection, bilateral eye PERRL ENT: hearing grossly normal, normal pharynx, ETT, NGT Neck: full range of motion, supple/symm/no masses Respiratory: chest non-tender, CTAB Cardiovascular: regular rate, rhythm, HS1, HS2 normal, no edema Gastrointestinal: normal bowel sounds, non tender, soft, non-distended, no guarding, no rebound Rectal: deferred Musculoskeletal: back normal, normal range of motion, non-tender, other - L. BKA Neurologic: awake, interactive, no focal signs Impression: Chronic Obstructive Pulmonary Disease Exacerbation Possible Pneumonia Chronic kidney disease Hydronephrosis, L nephrostomy Urinary Tract Infection, ESBL Anemia Leukocytosis Seizures Previous CVA/TIA Hypertension CAD Cervical cancer s/p Uropathy - previous R Nephrostomy tube Peripheral vascular disease sp LLE amputation Schizophrenia Plan - IV Antibiotics - Bipap PRN - ABG this AM - IV Steroids - wean - HHN - IVF per Renal - ISS - PPX - Monitor labs - Pressors PRN - NGT - JERKER Medications Critical care time: 45 minutes, 23 minutes care co-ordination DW: RN Laboratory Tests Noted EKG: Rate: normal Rhythm: NSR ST Segments: no acute changes Chest X-Ray: no effusion, no pneumothorax, other possible- RLL opacity CXR #2: Appropriate ET tube placement s/p RSI LE Dupplex: negative URINE CULTURE Final COMMENTS: KNOWN ESBL. Organism 1 ESCHERICHIA COLI - ESBL COLONY COUNT: >100,000 CFU/ML ESCCOL ESB M.I.C. RX --------- --- AMPICILLIN >=32 R CEFAZOLIN >=64 R CEFTAZIDIME R CEFTRIAXONE >=64 R CEFEPIME R CIPROFLOXACIN >=4 R GENTAMICIN <=1 S LEVOFLOXACIN >=8 R IMIPENEM <=0.25 S NITROFURANTOIN <=16 S TIGECYCLINE <=0.5 S TRIMETHOPRIM/SULFA <=20 S AMIKACIN 16 S PIPERACILLIN/TAZOBACTAM 8 S Critical Care - Objective Last 24 Hour Vital Signs Date Time Temp Pulse Resp B/P (MAP) Pulse Ox O2 Delivery O2 Flow Rate FiO2 05/04/19 09:38 82 16 100 Bi-Pap 35 05/04/19 09:34 87 16 100 Facial 35 05/04/19 08:57 Venturi Mask 10.0 45 05/04/19 08:00 Mechanical Ventilator 05/04/19 07:32 100 05/04/19 07:26 87 24 100 Mechanical Ventilator 40 82 18 40 40 05/04/19 06:30 79 22 05/04/19 06:00 78 21 141/84 (103) 82 05/04/19 05:30 82 19 149/88 (108) 84 05/04/19 05:15 70 24 40 05/04/19 05:00 23 Mechanical Ventilator 40 05/04/19 05:00 72 21 130/72 (91) 96 05/04/19 04:30 57 21 105/66 (79) 100 05/04/19 04:00 99.0 60 24 101/63 (76) 100 05/04/19 04:00 Mechanical Ventilator 05/04/19 04:00 22 Mechanical Ventilator 40 05/04/19 04:00 40 05/04/19 04:00 56 05/04/19 03:30 58 22 94/60 (71) 100 05/04/19 03:07 60 23 100 Mechanical Ventilator 40 05/04/19 03:00 60 22 100/67 (78) 100 05/04/19 03:00 23 Mechanical Ventilator 40 05/04/19 02:57 61 22 Mechanical Ventilator 40 40 05/04/19 02:30 64 22 96/60 (72) 100 05/04/19 02:00 71 21 112/73 (86) 100 05/04/19 02:00 22 Mechanical Ventilator 40 05/04/19 01:30 79 21 127/71 (89) 100 05/04/19 01:04 68 24 40 05/04/19 01:00 65 22 113/63 (80) 99 05/04/19 01:00 22 Mechanical Ventilator 40 05/04/19 00:30 65 23 103/66 (78) 99 05/04/19 00:00 22 Mechanical Ventilator 40 05/04/19 00:00 Mechanical Ventilator 05/04/19 00:00 98.8 64 23 105/63 (77) 99 05/03/19 23:30 67 22 97/62 (74) 99 05/03/19 23:09 60 22 100 Mechanical Ventilator 40 05/03/19 23:00 60 22 94/59 (71) 100 05/03/19 23:00 22 Mechanical Ventilator 40 05/03/19 22:59 61 22 Mechanical Ventilator 40 40 05/03/19 22:30 62 22 100/59 (73) 99 05/03/19 22:00 23 Mechanical Ventilator 40 05/03/19 22:00 61 23 98/60 (73) 100 05/03/19 21:43 24 40 05/03/19 21:30 64 23 97/59 (72) 99 05/03/19 21:00 60 23 93/58 (70) 99 05/03/19 21:00 24 Mechanical Ventilator 40 05/03/19 20:58 62 22 40 05/03/19 20:33 65 05/03/19 20:30 63 23 92/60 (71) 99 05/03/19 20:00 22 Mechanical Ventilator 40 05/03/19 20:00 Mechanical Ventilator 05/03/19 20:00 99.0 63 22 90/62 (71) 99 05/03/19 20:00 40 05/03/19 19:30 63 22 99/60 (73) 99 05/03/19 19:20 65 22 100 Mechanical Ventilator 40 05/03/19 19:10 65 22 Mechanical Ventilator 40 40 05/03/19 19:00 99.5 66 23 103/66 (78) 100 05/03/19 19:00 22 Mechanical Ventilator 40 05/03/19 18:00 72 22 118/71 (87) 100 05/03/19 18:00 99.5 05/03/19 18:00 22 Mechanical Ventilator 40 05/03/19 17:30 71 24 141/76 (97) 100 05/03/19 17:30 71 24 40 05/03/19 17:00 66 22 128/79 (95) 99 05/03/19 17:00 22 Mechanical Ventilator 40 05/03/19 16:30 66 22 108/72 (84) 98 05/03/19 16:00 40 05/03/19 16:00 22 Mechanical Ventilator 40 05/03/19 16:00 Mechanical Ventilator 05/03/19 16:00 101.2 66 22 107/69 (82) 98 05/03/19 16:00 71 05/03/19 15:30 84 22 113/75 (88) 98 05/03/19 15:20 67 22 98 Mechanical Ventilator 40 69 22 40 05/03/19 15:00 22 Mechanical Ventilator 40 05/03/19 15:00 67 22 103/73 (83) 99 05/03/19 14:30 71 22 111/62 (78) 99 05/03/19 14:00 71 22 136/85 (102) 99 05/03/19 14:00 22 Mechanical Ventilator 40 05/03/19 13:30 69 22 118/76 (90) 100 05/03/19 13:00 71 21 123/81 (95) 100 05/03/19 13:00 22 Mechanical Ventilator 40 05/03/19 12:40 74 23 40 05/03/19 12:30 73 21 112/67 (82) 100 05/03/19 12:00 22 Mechanical Ventilator 40 05/03/19 12:00 78 05/03/19 12:00 99.6 80 20 122/75 (91) 100 05/03/19 12:00 40 05/03/19 12:00 Mechanical Ventilator 05/03/19 11:30 80 17 120/88 (99) 100 05/03/19 11:00 22 Mechanical Ventilator 40 05/03/19 11:00 79 21 144/81 (102) 98 05/03/19 10:56 73 22 100 Mechanical Ventilator 40 76 25 40 05/03/19 10:30 74 21 111/74 (86) 100 05/03/19 10:00 22 Mechanical Ventilator 40 05/03/19 10:00 77 21 99/71 (80) 100 Micro: Microbiology Date/Time Source Procedure Growth Status 05/02/19 16:00 Blood Blood Culture - Preliminary NO GROWTH AFTER 24 HOURS Resulted 05/02/19 15:40 Blood Blood Culture - Preliminary Gram Negative Bacillus 1 Resulted 05/03/19 13:25 Nasal Nares - Final Complete 05/03/19 13:25 Nasal Nares - Final Complete 05/03/19 13:25 Sputum Gram Stain Pending Resulted 05/03/19 13:25 Sputum Culture - Preliminary Gram Negative Bacillus 1 Resulted 05/02/19 16:37 Nasal Nares MRSA Culture - Final NO METHICILLIN RESISTANT STAPH AUREUS... Complete 05/02/19 17:53 Urine,Clean Catch Urine Culture - Final Escherichia Coli - Esbl Complete 05/02/19 16:37 Rectum - Final NO CARBAPENEM-RESISTANT ENTEROBACTERI... Complete 05/02/19 16:37 Rectum VRE Culture - Final Enterococcus Faecalis - Vre Complete Accucheck: 183 Critical Care - Subjective ROS Limited/Unobtainable: No Condition: improving IV Access: central EKG Rhythm: Sinus Rhythm FI02: 35 Vent Support Breath Rate: 22 Vent Support Mode: BiLevel Vent Tidal Volume: 450 Sputum Amount: None PEEP: 5.0 PIP: 41 Tube Feeding Amount: 25 I&O: Intake and Output 05/03/19 05/04/19 19:00 07:00 Intake Total 1348 ml 1240 ml Output Total 980 ml 650 ml Balance 368 ml 590 ml IV Total 1318 ml 1020 ml Tube Feeding 30 ml 220 ml Output Urine Total 980 ml 650 ml ET-Tube: 7.5 ET Position: 22 Gabino Smith MD May 04, 2019 09:58
--- NOTE | 2019-05-04 09:58 | NUR ---
NURSE NOTES: VQ scan cancelled per Dr. Smith.
--- NOTE | 2019-05-04 10:03 | NUR ---
SHOE CASER NOTE SW met w/ pt and assessed her. Pt is awake, on BIPAP and was able to verbalize. Pt currently resides at [address] [address]. Pt informed SW to disregard her current emergency contact, Audra Grider (friend) [phone]. Pt receives SSI and pt herself is the payee. Pt reports she is currently and has 6 children. Pt states her is in [place] but pt does not have any contact w/ her family. Pt states she has no emergency contact. SW is unable to verify pt's family situation at this time. Pt states she is the primary decision maker. Pt states she has AD but the copy is not in the chart. SW is also unable to assess pt's mental status as the communication was unclear d/t having BIPAP. DC placement pending. Signed: 05/04/19 at 1014 by MELQUIADES NEGRON <Co-Signature Required>
[2019-05-04] MEDS: Sodium Citrate 30ml ORAL SCH ×3 (10:25→18:34)
--- NOTE | 2019-05-04 10:59 | Nephrology Progress Note ---
Assessment/Plan Problem List: (1) Renal failure Assessment: acute on chronic (2) Dehydration (3) Respiratory failure Assessment: self extubated (4) Anemia (5) Hydronephrosis Assessment: nephrostomies Assessment Acute on Chronic Renal Failure + Severe dehydration h/o ? kidney mass h/o hydronephrosis - has Nephrostomie Anemia Ventilator Dependent Respiratory failure pulmonary infiltrate / Urinary tract infection h/o ESBL UTI from custodial Seizure disorder on Clonazepam and Gabapentin Schizophrenia Hypertension, presented with low BP Obesity Plan Self extubated Hydrate pulmonary support add Bicitra Transfuse monitor renal parameters Urology eval avoid nephrotoxics per consultants Moderate right hydronephrosis. This is apparently new at least since the last exam from 07/12/2018. More recent exam had shown placement of a ureteral stent on the right which we're told was removed. Consider noncontrast CT for further evaluation. Left ureteral stent the partially visualized. No hydronephrosis in the left kidney. Subjective ROS Limited/Unobtainable: No Constitutional: Reports: malaise, weakness Objective Objective Last 24 Hour Vital Signs Date Time Temp Pulse Resp B/P (MAP) Pulse Ox O2 Delivery O2 Flow Rate FiO2 05/04/19 10:30 78 20 155/108 (124) 99 05/04/19 10:00 87 15 155/92 (113) 100 05/04/19 09:38 82 16 100 Bi-Pap 35 05/04/19 09:34 87 16 100 Facial 35 05/04/19 09:30 90 22 140/116 (124) 100 05/04/19 09:00 90 20 140/85 (103) 99 05/04/19 08:57 Venturi Mask 10.0 45 05/04/19 08:30 88 17 154/128 (137) 83 05/04/19 08:00 Mechanical Ventilator 05/04/19 08:00 92 16 145/90 (108) 100 05/04/19 08:00 12.0 45 05/04/19 07:45 12.0 45 05/04/19 07:32 100 05/04/19 07:30 81 16 154/92 (112) 100 05/04/19 07:26 87 24 100 Mechanical Ventilator 40 82 18 40 40 05/04/19 07:00 98.9 83 18 146/92 (110) 98 05/04/19 06:30 79 22 2/5/20 06:00 78 21 141/84 (103) 82 05/04/19 05:30 82 19 149/88 (108) 84 05/04/19 05:15 70 24 40 05/04/19 05:00 23 Mechanical Ventilator 40 05/04/19 05:00 72 21 130/72 (91) 96 05/04/19 04:30 57 21 105/66 (79) 100 05/04/19 04:00 99.0 60 24 101/63 (76) 100 05/04/19 04:00 Mechanical Ventilator 05/04/19 04:00 22 Mechanical Ventilator 40 05/04/19 04:00 40 05/04/19 04:00 56 05/04/19 03:30 58 22 94/60 (71) 100 05/04/19 03:07 60 23 100 Mechanical Ventilator 40 05/04/19 03:00 60 22 100/67 (78) 100 05/04/19 03:00 23 Mechanical Ventilator 40 05/04/19 02:57 61 22 Mechanical Ventilator 40 40 05/04/19 02:30 64 22 96/60 (72) 100 05/04/19 02:00 71 21 112/73 (86) 100 05/04/19 02:00 22 Mechanical Ventilator 40 05/04/19 01:30 79 21 127/71 (89) 100 05/04/19 01:04 68 24 40 05/04/19 01:00 65 22 113/63 (80) 99 05/04/19 01:00 22 Mechanical Ventilator 40 05/04/19 00:30 65 23 103/66 (78) 99 05/04/19 00:00 22 Mechanical Ventilator 40 05/04/19 00:00 Mechanical Ventilator 05/04/19 00:00 98.8 64 23 105/63 (77) 99 05/03/19 23:30 67 22 97/62 (74) 99 05/03/19 23:09 60 22 100 Mechanical Ventilator 40 05/03/19 23:00 60 22 94/59 (71) 100 05/03/19 23:00 22 Mechanical Ventilator 40 05/03/19 22:59 61 22 Mechanical Ventilator 40 40 05/03/19 22:30 62 22 100/59 (73) 99 05/03/19 22:00 23 Mechanical Ventilator 40 05/03/19 22:00 61 23 98/60 (73) 100 05/03/19 21:43 24 40 05/03/19 21:30 64 23 97/59 (72) 99 05/03/19 21:00 60 23 93/58 (70) 99 05/03/19 21:00 24 Mechanical Ventilator 40 05/03/19 20:58 62 22 40 05/03/19 20:33 65 05/03/19 20:30 63 23 92/60 (71) 99 05/03/19 20:00 22 Mechanical Ventilator 40 05/03/19 20:00 Mechanical Ventilator 05/03/19 20:00 99.0 63 22 90/62 (71) 99 05/03/19 20:00 40 05/03/19 19:30 63 22 99/60 (73) 99 05/03/19 19:20 65 22 100 Mechanical Ventilator 40 05/03/19 19:10 65 22 Mechanical Ventilator 40 40 05/03/19 19:00 99.5 66 23 103/66 (78) 100 05/03/19 19:00 22 Mechanical Ventilator 40 05/03/19 18:00 72 22 118/71 (87) 100 05/03/19 18:00 99.5 05/03/19 18:00 22 Mechanical Ventilator 40 05/03/19 17:30 71 24 141/76 (97) 100 05/03/19 17:30 71 24 40 05/03/19 17:00 66 22 128/79 (95) 99 05/03/19 17:00 22 Mechanical Ventilator 40 05/03/19 16:30 66 22 108/72 (84) 98 05/03/19 16:00 40 05/03/19 16:00 22 Mechanical Ventilator 40 05/03/19 16:00 Mechanical Ventilator 05/03/19 16:00 101.2 66 22 107/69 (82) 98 05/03/19 16:00 71 05/03/19 15:30 84 22 113/75 (88) 98 05/03/19 15:20 67 22 98 Mechanical Ventilator 40 69 22 40 05/03/19 15:00 22 Mechanical Ventilator 40 05/03/19 15:00 67 22 103/73 (83) 99 05/03/19 14:30 71 22 111/62 (78) 99 05/03/19 14:00 71 22 136/85 (102) 99 05/03/19 14:00 22 Mechanical Ventilator 40 05/03/19 13:30 69 22 118/76 (90) 100 05/03/19 13:00 71 21 123/81 (95) 100 05/03/19 13:00 22 Mechanical Ventilator 40 05/03/19 12:40 74 23 40 05/03/19 12:30 73 21 112/67 (82) 100 05/03/19 12:00 22 Mechanical Ventilator 40 05/03/19 12:00 78 05/03/19 12:00 99.6 80 20 122/75 (91) 100 05/03/19 12:00 40 05/03/19 12:00 Mechanical Ventilator 05/03/19 11:30 80 17 120/88 (99) 100 05/03/19 11:00 22 Mechanical Ventilator 40 05/03/19 11:00 79 21 144/81 (102) 98 05/03/19 10:56 73 22 100 Mechanical Ventilator 40 76 25 40 Intake and Output 05/03/19 05/04/19 19:00 07:00 Intake Total 1348 ml 1325 ml Output Total 980 ml 710 ml Balance 368 ml 615 ml Free Water 60 ml IV Total 1318 ml 1020 ml Tube Feeding 30 ml 245 ml Output Urine Total 980 ml 710 ml Current Medications Medications (Trade) Dose Ordered Sig/William Route PRN Reason Start Time Stop Time Status Last Admin Dose Admin Acetaminophen (Tylenol) 650 mg Q6H PRN NG Mild Pain/Temp > 100.5 05/02/19 20:45 06/01/19 20:44 05/03/19 17:30 Albuterol/ Ipratropium (Albuterol/ Ipratropium) 3 ml Q4H PRN HHN Shortness of Breath 05/02/19 20:45 05/07/19 20:44 Albuterol/ Ipratropium (Albuterol/ Ipratropium) 3 ml Q4HRT HHN 05/02/19 23:00 05/07/19 22:59 05/04/19 07:37 Allopurinol (allopurinoL) 300 mg DAILY NG 05/05/19 09:00 06/04/19 08:59 Chlorhexidine Gluconate (Genevieve-Hex 2%) 1 applic DAILY@1999 TOPIC 05/03/19 20:00 06/02/19 19:59 05/03/19 20:11 Dextrose (Dextrose 50%) 25 ml Q30M PRN IV Hypoglycemia 05/02/19 20:45 06/01/19 20:44 Dextrose (Dextrose 50%) 50 ml Q30M PRN IV Hypoglycemia 05/02/19 20:45 06/01/19 20:44 Dextrose/Sodium Chloride 1,000 ml @ 100 mls/hr Q10H IV 05/02/19 21:56 06/01/19 21:55 05/04/19 03:28 Doxycycline Hyclate 100 mg/ Dextrose 110 ml @ 110 mls/hr Q12HR IV 05/02/19 21:00 05/09/19 20:59 05/03/19 21:33 Fentanyl Citrate 1000 mcg/Sodium Chloride 100 ml @ 0 mls/hr Q24H IV 05/03/19 22:00 05/10/19 21:59 05/03/19 21:43 Gabapentin (Neurontin) 200 mg THREE TIMES A DAY NG 05/03/19 18:00 06/02/19 17:59 05/04/19 08:44 Heparin Sodium (Porcine) (Heparin 5000 units/ml) 5,000 units EVERY 12 HOURS SUBQ 05/02/19 21:00 06/01/19 20:59 05/04/19 08:44 Insulin Aspart (NovoLOG) Q6HR SUBQ 05/03/19 00:00 06/02/19 00:00 05/04/19 05:51 Lacosamide (Vimpat) 100 mg DAILY ORAL 05/04/19 09:00 06/03/19 08:59 05/04/19 08:39 Levetiracetam (Keppra) 250 mg Q12HR NG 05/03/19 21:00 06/02/19 20:59 05/04/19 08:38 Lorazepam (Ativan 2mg/ml 1ml) 0.5 mg Q2H PRN IV Agitation 05/02/19 20:45 05/09/19 20:44 Meropenem 500 mg/ Sodium Chloride 55 ml @ 110 mls/hr EVERY 12 HOURS IVPB 05/04/19 12:00 05/09/19 11:59 Methylprednisolone Sodium Succinate (Solu-MEDROL) 60 mg EVERY 8 HOURS IVP 05/02/19 22:00 06/01/19 21:59 05/04/19 05:50 Norepinephrine Bitartrate 4 mg/ Dextrose 250 ml @ 0 mls/hr Q24H PRN IV For hypotension 05/02/19 21:27 06/01/19 21:26 Pantoprazole (Protonix) 40 mg Q12HR IVP 05/02/19 22:00 06/02/19 08:59 05/04/19 08:38 Sodium Citrate (Bicitra) 30 ml EVERY 6 HOURS ORAL 05/04/19 09:45 06/03/19 09:44 05/04/19 10:25 Laboratory Tests 05/04/19 04:30: White Blood Count 13.0H, Red Blood Count 2.18L, Hemoglobin 7.1L, Hematocrit 21.0L, Mean Corpuscular Volume 96, Mean Corpuscular Hemoglobin 32.6H, Mean Corpuscular Hemoglobin Concent 33.9, Red Cell Distribution Width 14.9H, Platelet Count 277, Mean Platelet Volume 5.6L, Neutrophils (%) (Auto) , Lymphocytes (%) (Auto) , Monocytes (%) (Auto) , Eosinophils (%) (Auto) , Basophils (%) (Auto) , Sodium Level 146H, Potassium Level 3.6, Chloride Level 115H, Carbon Dioxide Level 19L, Anion Gap 12, Blood Urea Nitrogen 102H, Creatinine 3.6H, Estimat Glomerular Filtration Rate 13.1, Glucose Level 201H, Lactic Acid Level 1.00, Uric Acid 13.0H, Calcium Level 9.0, Phosphorus Level 5.1H, Magnesium Level 2.1, Total Bilirubin 0.2, Aspartate Amino Transf (AST/SGOT ) 26, Alanine Aminotransferase (ALT/SGPT) 26, Alkaline Phosphatase 64, C- Reactive Protein, Quantitative 15.7H, Pro-B-Type Natriuretic Peptide 1456H, Total Protein 7.3, Albumin 1.9L, Globulin 5.4, Albumin/Globulin Ratio 0.4L 05/04/19 08:23: Arterial Blood pH 7.263L, Arterial Blood Partial Pressure CO2 41.4, Arterial Blood Partial Pressure O2 83.2, Arterial Blood HCO3 18.3L, Arterial Blood Oxygen Saturation 94.8L, Arterial Blood Base Excess -8.2L, Miguel Angel Test Positive 05/04/19 10:41: Arterial Blood pH [Pending], Arterial Blood Partial Pressure CO2 [Pending], Arterial Blood Partial Pressure O2 [Pending], Arterial Blood HCO3 [Pending], Arterial Blood Oxygen Saturation [Pending], Arterial Blood Base Excess [Pending] , Miguel Angel Test [Pending] Height (Feet): 5 Height (Inches): 3.00 Weight (Pounds): 186 General Appearance: mild distress EENT: other - on BIPAP Cardiovascular: tachycardia Respiratory/Chest: decreased breath sounds Abdomen: distended Derrell Hatch MD May 04, 2019 10:59
--- NOTE | 2019-05-04 11:00 | Infectious Diseases Prog Note ---
Assessment/Plan Assessment/Plan IMPRESSION: Gram negative sepsis E. coli ESBL UTI, pneumonia, Acute respiratory failure COPD, anemia, acute renal failure, chronic kidney disease, Right hydronephrosis, Sacral ulcer. RECOMMENDATION: We will follow up the cultures. Continue IV doxycycline. We will change cefepime to Meropenem Subjective ROS Limited/Unobtainable: Yes Constitutional: Denies: fever Respiratory: Reports: other - extubated Neurologic: Reports: other - on restraint Allergies: Coded Allergies: Grits (Unverified Allergy, Unknown, 07/06/17) [place] (Unverified Allergy, Unknown, 07/06/17) Objective Vital Signs Last 24 Hour Vital Signs Date Time Temp Pulse Resp B/P (MAP) Pulse Ox O2 Delivery O2 Flow Rate FiO2 05/04/19 10:30 78 20 155/108 (124) 99 05/04/19 10:00 87 15 155/92 (113) 100 05/04/19 09:38 82 16 100 Bi-Pap 35 05/04/19 09:34 87 16 100 Facial 35 05/04/19 09:30 90 22 140/116 (124) 100 05/04/19 09:00 90 20 140/85 (103) 99 05/04/19 08:57 Venturi Mask 10.0 45 05/04/19 08:30 88 17 154/128 (137) 83 05/04/19 08:00 Mechanical Ventilator 05/04/19 08:00 92 16 145/90 (108) 100 05/04/19 08:00 12.0 45 05/04/19 07:45 12.0 45 05/04/19 07:32 100 05/04/19 07:30 81 16 154/92 (112) 100 05/04/19 07:26 87 24 100 Mechanical Ventilator 40 82 18 40 40 05/04/19 07:00 98.9 83 18 146/92 (110) 98 05/04/19 06:30 79 22 05/04/19 06:00 78 21 141/84 (103) 82 05/04/19 05:30 82 19 149/88 (108) 84 05/04/19 05:15 70 24 40 05/04/19 05:00 23 Mechanical Ventilator 40 05/04/19 05:00 72 21 130/72 (91) 96 05/04/19 04:30 57 21 105/66 (79) 100 2/5/20 04:00 99.0 60 24 101/63 (76) 100 05/04/19 04:00 Mechanical Ventilator 05/04/19 04:00 22 Mechanical Ventilator 40 05/04/19 04:00 40 05/04/19 04:00 56 05/04/19 03:30 58 22 94/60 (71) 100 05/04/19 03:07 60 23 100 Mechanical Ventilator 40 05/04/19 03:00 60 22 100/67 (78) 100 05/04/19 03:00 23 Mechanical Ventilator 40 05/04/19 02:57 61 22 Mechanical Ventilator 40 40 05/04/19 02:30 64 22 96/60 (72) 100 05/04/19 02:00 71 21 112/73 (86) 100 05/04/19 02:00 22 Mechanical Ventilator 40 05/04/19 01:30 79 21 127/71 (89) 100 05/04/19 01:04 68 24 40 05/04/19 01:00 65 22 113/63 (80) 99 05/04/19 01:00 22 Mechanical Ventilator 40 05/04/19 00:30 65 23 103/66 (78) 99 05/04/19 00:00 22 Mechanical Ventilator 40 05/04/19 00:00 Mechanical Ventilator 05/04/19 00:00 98.8 64 23 105/63 (77) 99 05/03/19 23:30 67 22 97/62 (74) 99 05/03/19 23:09 60 22 100 Mechanical Ventilator 40 05/03/19 23:00 60 22 94/59 (71) 100 05/03/19 23:00 22 Mechanical Ventilator 40 05/03/19 22:59 61 22 Mechanical Ventilator 40 40 05/03/19 22:30 62 22 100/59 (73) 99 05/03/19 22:00 23 Mechanical Ventilator 40 05/03/19 22:00 61 23 98/60 (73) 100 05/03/19 21:43 24 40 05/03/19 21:30 64 23 97/59 (72) 99 05/03/19 21:00 60 23 93/58 (70) 99 05/03/19 21:00 24 Mechanical Ventilator 40 05/03/19 20:58 62 22 40 05/03/19 20:33 65 05/03/19 20:30 63 23 92/60 (71) 99 05/03/19 20:00 22 Mechanical Ventilator 40 05/03/19 20:00 Mechanical Ventilator 05/03/19 20:00 99.0 63 22 90/62 (71) 99 05/03/19 20:00 40 05/03/19 19:30 63 22 99/60 (73) 99 05/03/19 19:20 65 22 100 Mechanical Ventilator 40 05/03/19 19:10 65 22 Mechanical Ventilator 40 40 05/03/19 19:00 99.5 66 23 103/66 (78) 100 05/03/19 19:00 22 Mechanical Ventilator 40 05/03/19 18:00 72 22 118/71 (87) 100 05/03/19 18:00 99.5 05/03/19 18:00 22 Mechanical Ventilator 40 05/03/19 17:30 71 24 141/76 (97) 100 05/03/19 17:30 71 24 40 05/03/19 17:00 66 22 128/79 (95) 99 05/03/19 17:00 22 Mechanical Ventilator 40 05/03/19 16:30 66 22 108/72 (84) 98 05/03/19 16:00 40 05/03/19 16:00 22 Mechanical Ventilator 40 05/03/19 16:00 Mechanical Ventilator 05/03/19 16:00 101.2 66 22 107/69 (82) 98 05/03/19 16:00 71 05/03/19 15:30 84 22 113/75 (88) 98 05/03/19 15:20 67 22 98 Mechanical Ventilator 40 69 22 40 05/03/19 15:00 22 Mechanical Ventilator 40 05/03/19 15:00 67 22 103/73 (83) 99 05/03/19 14:30 71 22 111/62 (78) 99 05/03/19 14:00 71 22 136/85 (102) 99 05/03/19 14:00 22 Mechanical Ventilator 40 05/03/19 13:30 69 22 118/76 (90) 100 05/03/19 13:00 71 21 123/81 (95) 100 05/03/19 13:00 22 Mechanical Ventilator 40 05/03/19 12:40 74 23 40 05/03/19 12:30 73 21 112/67 (82) 100 05/03/19 12:00 22 Mechanical Ventilator 40 05/03/19 12:00 78 05/03/19 12:00 99.6 80 20 122/75 (91) 100 05/03/19 12:00 40 05/03/19 12:00 Mechanical Ventilator 05/03/19 11:30 80 17 120/88 (99) 100 05/03/19 11:00 22 Mechanical Ventilator 40 05/03/19 11:00 79 21 144/81 (102) 98 05/03/19 10:56 73 22 100 Mechanical Ventilator 40 76 25 40 Height (Feet): 5 Height (Inches): 3.00 Weight (Pounds): 186 HEENT: mucous membranes moist Respiratory/Chest: lungs clear, other - on BIPAP Cardiovascular: normal rate, other - RIJ central line Genitourinary: other - nephrostomy tubes Extremities: no edema, other - left BKA Neurologic/Psychiatric: alert, responsive Microbiology Date/Time Source Procedure Growth Status 05/02/19 16:00 Blood Blood Culture - Preliminary NO GROWTH AFTER 24 HOURS Resulted 05/02/19 15:40 Blood Blood Culture - Preliminary Gram Negative Bacillus 1 Resulted 05/03/19 13:25 Nasal Nares - Final Complete 05/03/19 13:25 Nasal Nares - Final Complete 05/03/19 13:25 Sputum Gram Stain Pending Resulted 05/03/19 13:25 Sputum Culture - Preliminary Gram Negative Bacillus 1 Resulted 05/02/19 16:37 Nasal Nares MRSA Culture - Final NO METHICILLIN RESISTANT STAPH AUREUS... Complete 05/02/19 17:53 Urine,Clean Catch Urine Culture - Final Escherichia Coli - Esbl Complete 05/02/19 16:37 Rectum - Final NO CARBAPENEM-RESISTANT ENTEROBACTERI... Complete 05/02/19 16:37 Rectum VRE Culture - Final Enterococcus Faecalis - Vre Complete Laboratory Tests Test 05/04/19 04:30 05/04/19 08:23 White Blood Count 13.0 K/UL (4.8-10.8) H Red Blood Count 2.18 M/UL (4.20-5.40) L Hemoglobin 7.1 G/DL (12.0-16.0) L Hematocrit 21.0 % (37.0-47.0) L Mean Corpuscular Volume 96 FL (80-99) Mean Corpuscular Hemoglobin 32.6 PG (27.0-31.0) H Mean Corpuscular Hemoglobin Concent 33.9 G/DL (32.0-36.0) Red Cell Distribution Width 14.9 % (11.6-14.8) H Platelet Count 277 K/UL (150-450) Mean Platelet Volume 5.6 FL (6.5-10.1) L Neutrophils (%) (Auto) % (45.0-75.0) Lymphocytes (%) (Auto) % (20.0-45.0) Monocytes (%) (Auto) % (1.0-10.0) Eosinophils (%) (Auto) % (0.0-3.0) Basophils (%) (Auto) % (0.0-2.0) Sodium Level 146 MMOL/L (136-145) H Potassium Level 3.6 MMOL/L (3.5-5.1) Chloride Level 115 MMOL/L (98-107) H Carbon Dioxide Level 19 MMOL/L (21-32) L Anion Gap 12 mmol/L (5-15) Blood Urea Nitrogen 102 mg/dL (7-18) H Creatinine 3.6 MG/DL (0.55-1.30) H Estimat Glomerular Filtration Rate 13.1 mL/min (>60) Glucose Level 201 MG/DL (74-106) H Lactic Acid Level 1.00 mmol/L (0.4-2.0) Uric Acid 13.0 MG/DL (2.6-7.2) H Calcium Level 9.0 MG/DL (8.5-10.1) Phosphorus Level 5.1 MG/DL (2.5-4.9) H Magnesium Level 2.1 MG/DL (1.8-2.4) Total Bilirubin 0.2 MG/DL (0.2-1.0) Aspartate Amino Transf (AST/SGOT) 26 U/L (15-37) Alanine Aminotransferase (ALT/SGPT) 26 U/L (12-78) Alkaline Phosphatase 64 U/L (46-116) C-Reactive Protein, Quantitative 15.7 mg/dL (0.00-0.90) H Pro-B-Type Natriuretic Peptide 1456 pg/mL (0-125) H Total Protein 7.3 G/DL (6.4-8.2) Albumin 1.9 G/DL (3.4-5.0) L Globulin 5.4 g/dL Albumin/Globulin Ratio 0.4 (1.0-2.7) L Arterial Blood pH 7.263 (7.350-7.450) Arterial Blood Partial Pressure CO2 41.4 mmHg (35.0-45.0) Arterial Blood Partial Pressure O2 83.2 mmHg (75.0-100.0) Arterial Blood HCO3 18.3 mmol/L (22.0-26.0) L Arterial Blood Oxygen Saturation 94.8 % (95-100) L Arterial Blood Base Excess -8.2 (-2-2) L Miguel Angel Test Positive Current Medications Medications (Trade) Dose Ordered Sig/William Route PRN Reason Start Time Stop Time Status Last Admin Dose Admin Acetaminophen (Tylenol) 650 mg Q6H PRN NG Mild Pain/Temp > 100.5 05/02/19 20:45 06/01/19 20:44 05/03/19 17:30 Albuterol/ Ipratropium (Albuterol/ Ipratropium) 3 ml Q4H PRN HHN Shortness of Breath 05/02/19 20:45 05/07/19 20:44 Albuterol/ Ipratropium (Albuterol/ Ipratropium) 3 ml Q4HRT HHN 05/02/19 23:00 05/07/19 22:59 05/04/19 07:37 Allopurinol (allopurinoL) 300 mg DAILY NG 05/05/19 09:00 06/04/19 08:59 Chlorhexidine Gluconate (Genevieve-Hex 2%) 1 applic DAILY@2000 TOPIC 05/03/19 20:00 06/02/19 19:59 05/03/19 20:11 Dextrose (Dextrose 50%) 25 ml Q30M PRN IV Hypoglycemia 05/02/19 20:45 06/01/19 20:44 Dextrose (Dextrose 50%) 50 ml Q30M PRN IV Hypoglycemia 05/02/19 20:45 06/01/19 20:44 Dextrose/Sodium Chloride 1,000 ml @ 100 mls/hr Q10H IV 05/02/19 21:56 06/01/19 21:55 05/04/19 03:28 Doxycycline Hyclate 100 mg/ Dextrose 110 ml @ 110 mls/hr Q12HR IV 05/02/19 21:00 05/09/19 20:59 05/03/19 21:33 Fentanyl Citrate 1000 mcg/Sodium Chloride 100 ml @ 0 mls/hr Q24H IV 05/03/19 22:00 05/10/19 21:59 05/03/19 21:43 Gabapentin (Neurontin) 200 mg THREE TIMES A DAY NG 05/03/19 18:00 06/02/19 17:59 05/04/19 08:44 Heparin Sodium (Porcine) (Heparin 5000 units/ml) 5,000 units EVERY 12 HOURS SUBQ 05/02/19 21:00 06/01/19 20:59 05/04/19 08:44 Insulin Aspart (NovoLOG) Q6HR SUBQ 05/03/19 00:00 06/02/19 00:00 05/04/19 05:51 Lacosamide (Vimpat) 100 mg DAILY ORAL 05/04/19 09:00 06/03/19 08:59 05/04/19 08:39 Levetiracetam (Keppra) 250 mg Q12HR NG 05/03/19 21:00 06/02/19 20:59 05/04/19 08:38 Lorazepam (Ativan 2mg/ml 1ml) 0.5 mg Q2H PRN IV Agitation 05/02/19 20:45 05/09/19 20:44 Meropenem 500 mg/ Sodium Chloride 55 ml @ 110 mls/hr EVERY 12 HOURS IVPB 05/04/19 11:00 05/09/19 10:59 UNV Methylprednisolone Sodium Succinate (Solu-MEDROL) 60 mg EVERY 8 HOURS IVP 05/02/19 22:00 06/01/19 21:59 05/04/19 05:50 Norepinephrine Bitartrate 4 mg/ Dextrose 250 ml @ 0 mls/hr Q24H PRN IV For hypotension 05/02/19 21:27 06/01/19 21:26 Pantoprazole (Protonix) 40 mg Q12HR IVP 05/02/19 22:00 06/02/19 08:59 05/04/19 08:38 Sodium Citrate (Bicitra) 30 ml EVERY 6 HOURS ORAL 05/04/19 09:45 06/03/19 09:44 05/04/19 10:25 Jose Solis MD May 04, 2019 11:00
--- NOTE | 2019-05-04 11:15 | NUR ---
NURSE NOTES: Blood transfusion started: BP 143/91, HR 71, SPo2 100%, T 99.1 ax. no s/sx of transfusion rxn noted. no s/sx of distress. at patient's bedside first 15 minutes of transfusion.
[2019-05-04] MEDS: Meropenem 500 MG in NS 55 ML IVPB SCH ×2 (12:59→21:28)
--- NOTE | 2019-05-04 13:20 | NUR ---
NURSE NOTES: Blood transfusion completed. VSS T 98.8, BP 153/91, HR 86, Spo2 100%. No signs of distress.
--- NOTE | 2019-05-04 14:22 | NUR ---
NOTES: REFERRED FOR SWALLOW EVAL BY DR HALEY, SEE FULL REPORT. DYSPHAGIA RISK FACTORS FOR THIS 58 Y.O.F.: ACUTE ISSUES: R/O PNA BUT PER CXR NEGATIVE FOR ACUTE PROCESS, RESP FAILURES AND INTUBATED 2/4 AND 2/5 SELF-EXTUBATED. H/O PNA, DYSPHAGIA, GERD, CVA, EPILEPSY, DEMENTIA, COPD, RESP FAIULRE WITH HYPOXIA, SEPSIS, PSYCH (SCHIZOPHRENIA, MDD, ANXIETY MEDS PROZAC,SEROQUEL, ZYPREXA), NEPHROSTROMY TUBES. ON PRIOR POLST NO TUBE FEEDINGS AND PATIENT MAKES OWN DECISIONS. ON REG DIET TEXTURE AND THIN LIQUIDS AT SNF. PRIOR DIET TYPE CCHO ROBB RENAL SOFT CHEW DIET. AFTER [facility] SWALLOW EVAL ON 02/03/19 3 MONTHS AGO, THE PATIENT HAD PNA AND MILD TO MODERATE OP DYSPHAGIA BUT WAS CLEARED ON PUREED AND NECTAR THICK LIQUIDS WITH ASPIRATION AND REFLUX PRECAUTIONS. SHE REFUSED NGT AND UNABLE TO HAVE MOD BARIUM SWALLOW STUDY DUE TO SCHEDULE CONFLICTS. NOW, THE PATIENT IS REFUSING NGT AND DOES NOT WANT TO WAIT FOR MOD BARIUM SWALLOW STUDY THAT CANNOT BE COMPLETED UNTIL TOMORROW. WAS ON NGT WITH NEPRO PRIOR TO HAVING PULLED IT. ALERT AND ABLE TO EXPRESS BASIC NEEDS. HAS MIN DENTITION AND NO DENTURES (WILL GET IMPLANTS). INITIAL IMPRESSIONS: S/S OF AT LEAST A MILD OROPHARYNGEAL DYSPHAGIA WITH MILD INCREASE IN TRANSIT TIMES. GIVEN THIN LIQUIDS VIA STRAW SEQUENTIAL SIPS (3 0Z WATER GABRIELLA SWALLOW TEST), THE PATIENT SWALLOWED MOST OF THE 3 OUNCES AND THEN COUGHED AFTER THE LAST SIP. SHE WAS ALSO SLIGHT SOB BY NOT SIGNIFICANTLY (18 WENT TO 20 AND BACK DOWN TO 18 BPM QUICKLY WITH GOOD O2 SATS ON 1 LITER NC). GIVEN PUREED TSP, GROSSLY FUNCTIONAL SWALLOW. GIVEN MASTICATED SOLIDS, CHEWED FOR 15 SECONDS AND HAS A SLIGHT INCREASE IN RESP RATE 18 TO 20 (BUT NOT SIGNIFICANT) AND SWALLOWED WITH FAIR HYOLARYNGEAL EXCURSION, W/O OVERT ASPIRATION. HAS SILENT ASPIRATION RISK DUE TO CVA, DEMENTIA, AND COPD DIAGNOSES. RECOMMENDATIONS: COMPLETE MOD BARIUM SWALLOW STUDY TOMORROW IF PT WANTS TO EAT FOR QUALITY OF LIFE, CONSIDER INITIATING [facility] SOFT GROUND DIET AND NECTAR THICK LIQUIDS WITH POSTED ASP/REFLUX PREC AND ONE TO ONE FEEDING FOR RATE AND AMOUNT OF INTAKE. REST IF SOB. MEDS TOLERATED AND UPGRADE DIET BUT NOT LIQUIDS TOLERATED. SKILLED DYSPHAGIA MANAGEMENT AND TX AND COG-COM EVAL/TX EDUCATED/TRAINED RN EVELINE IN POSTED PRECAUTIONS
--- NOTE | 2019-05-04 14:33 | Hematology/Onc Progress Note ---
Assessment/Plan Assessment/Plan Assessment/Plan: # Anemia of chronic disease (or of iron deficiency) due to underlying chronic medical issues, multifactorial --> Anemia workup has been ordered, rule out gi bleed --> No evidence of hemolysis is noted, peripheral smear has been reviewed. --> Hgb goal >7. Transfuse prn. --> Epogen or iron at this time is not particularly indicated --> Medications have been reviewed --> low threshold for gi evaluation in case has occult + --> hgb trend 11.7-->10.7-->7.4 # Leukocytosis is likely related to infection, reactive process, v infection v intubation, in past had esbl uti --> have reviewed peripheral smear and bandemia/neutrophilia noted --> continue antibiotics if they have been started by ID team --> monitor for resolution --> trend as needed --> also is on steriods # Left kidney mass -- 5 cm low-attenuation lesion demonstrating slightly higher than normal fluid attenuation coming off of the upper pole left kidney --> likely represents a complex possibly proteinaceous cyst, but necrotic solid mass also possible --> as per uro, appears stable # Dehydration --> ivf have been started --> anti-nausea meds started # S/P BKA (below knee amputation) unilateral --> left leg s/p amputation # Anxiety --> as per psych # Left hydronephrosis --> per uro # Resp failure s/p intubation --> intub 05/02 --> extubated 05/04 # Critically ill requiring icu adm on 05/03 # Dvt ppx heparin sq The timing of this note does not necessarily reflect the time of the patient was seen. Greatly appreciate consultation. Subjective Constitutional: Denies: no symptoms, chills, fever, malaise, weakness, other Cardiovascular: Denies: no symptoms, chest pain, edema, irregular heart rate, lightheadedness, palpitations, syncope, other Respiratory: Denies: no symptoms, cough, shortness of breath, SOB with excertion, SOB at rest, sputum, wheezing, other Gastrointestinal/Abdominal: Denies: no symptoms, abdomen distended, abdominal pain, black stools, tarry stools, blood in stool, constipated, diarrhea, difficulty swallowing, nausea, poor appetite, poor fluid intake, rectal bleeding , vomiting, other Genitourinary: Denies: no symptoms, burning, discharge, frequency, flank pain, hematuria, incontinence, pain, urgency, other Neurologic/Psychiatric: Denies: no symptoms, anxiety, depressed, emotional problems, headache, numbness, paresthesia, pre-existing deficit, seizure, tingling, tremors, weakness, other Endocrine: Denies: no symptoms, excessive sweating, flushing, intolerance to cold, intolerance to heat, increased hunger, increased thirst, increased urine, unexplained weight gain, unexplained weight loss, other Hematologic/Lymphatic: Denies: no symptoms, anemia, easy bleeding, easy bruising, adenopathy, other Allergies: Coded Allergies: Grits (Unverified Allergy, Unknown, 07/06/17) [place] (Unverified Allergy, Unknown, 07/06/17) Subjective 2/5: no bleeding or chills, no night sweats, cbc noted, on abx, gett prbc today , consent signed Objective Objective Current Medications Medications (Trade) Dose Ordered Sig/William Route PRN Reason Start Time Stop Time Status Last Admin Dose Admin Acetaminophen (Tylenol) 650 mg Q6H PRN NG Mild Pain/Temp > 100.5 05/02/19 20:45 06/01/19 20:44 05/03/19 17:30 Albuterol/ Ipratropium (Albuterol/ Ipratropium) 3 ml Q4H PRN HHN Shortness of Breath 05/02/19 20:45 05/07/19 20:44 Albuterol/ Ipratropium (Albuterol/ Ipratropium) 3 ml Q4HRT HHN 05/02/19 23:00 05/07/19 22:59 05/04/19 12:09 Allopurinol (allopurinoL) 300 mg DAILY NG 05/05/19 09:00 06/04/19 08:59 Chlorhexidine Gluconate (Genevieve-Hex 2%) 1 applic DAILY@1999 TOPIC 05/03/19 20:00 06/02/19 19:59 05/03/19 20:11 Dextrose (Dextrose 50%) 25 ml Q30M PRN IV Hypoglycemia 05/02/19 20:45 06/01/19 20:44 Dextrose (Dextrose 50%) 50 ml Q30M PRN IV Hypoglycemia 05/02/19 20:45 06/01/19 20:44 Dextrose/Sodium Chloride 1,000 ml @ 100 mls/hr Q10H IV 05/02/19 21:56 06/01/19 21:55 05/04/19 03:28 Doxycycline Hyclate 100 mg/ Dextrose 110 ml @ 110 mls/hr Q12HR IV 05/02/19 21:00 05/09/19 20:59 05/03/19 21:33 Fentanyl Citrate 1000 mcg/Sodium Chloride 100 ml @ 0 mls/hr Q24H IV 05/03/19 22:00 05/10/19 21:59 05/03/19 21:43 Gabapentin (Neurontin) 200 mg THREE TIMES A DAY NG 05/03/19 18:00 06/02/19 17:59 05/04/19 13:13 Heparin Sodium (Porcine) (Heparin 5000 units/ml) 5,000 units EVERY 12 HOURS SUBQ 05/02/19 21:00 06/01/19 20:59 05/04/19 08:44 Insulin Aspart (NovoLOG) Q6HR SUBQ 05/03/19 00:00 06/02/19 00:00 05/04/19 13:00 Lacosamide (Vimpat) 100 mg DAILY ORAL 05/04/19 09:00 06/03/19 08:59 05/04/19 08:39 Levetiracetam (Keppra) 250 mg Q12HR NG 05/03/19 21:00 06/02/19 20:59 05/04/19 08:38 Lorazepam (Ativan 2mg/ml 1ml) 0.5 mg Q2H PRN IV Agitation 05/02/19 20:45 05/09/19 20:44 Meropenem 500 mg/ Sodium Chloride 55 ml @ 110 mls/hr EVERY 12 HOURS IVPB 05/04/19 12:00 05/09/19 11:59 05/04/19 12:59 Methylprednisolone Sodium Succinate (Solu-MEDROL) 60 mg EVERY 8 HOURS IVP 05/02/19 22:00 06/01/19 21:59 05/04/19 05:50 Norepinephrine Bitartrate 4 mg/ Dextrose 250 ml @ 0 mls/hr Q24H PRN IV For hypotension 05/02/19 21:27 06/01/19 21:26 Pantoprazole (Protonix) 40 mg Q12HR IVP 05/02/19 22:00 06/02/19 08:59 05/04/19 08:38 Sodium Citrate (Bicitra) 30 ml EVERY 6 HOURS ORAL 05/04/19 09:45 06/03/19 09:44 05/04/19 12:59 Last 24 Hour Vital Signs Date Time Temp Pulse Resp B/P (MAP) Pulse Ox O2 Delivery O2 Flow Rate FiO2 05/04/19 13:00 85 16 155/81 (105) 97 05/04/19 12:30 85 20 158/83 (108) 97 05/04/19 12:10 90 18 100 Nasal Cannula 1.0 24 85 16 100 05/04/19 12:00 98.6 75 16 156/91 (112) 100 05/04/19 12:00 2.0 05/04/19 12:00 Mechanical Ventilator 2.0 Nasal Cannula 05/04/19 11:00 72 20 143/91 (108) 99 05/04/19 10:30 78 20 155/108 (124) 99 05/04/19 10:00 87 15 155/92 (113) 100 05/04/19 09:38 82 16 100 Bi-Pap 35 05/04/19 09:34 87 16 100 Facial 35 05/04/19 09:30 90 22 140/116 (124) 100 05/04/19 09:00 90 20 140/85 (103) 99 05/04/19 08:57 Venturi Mask 10.0 45 05/04/19 08:30 88 17 154/128 (137) 83 05/04/19 08:00 Mechanical Ventilator 05/04/19 08:00 92 16 145/90 (108) 100 05/04/19 08:00 12.0 45 05/04/19 07:45 12.0 45 05/04/19 07:32 100 05/04/19 07:30 81 16 154/92 (112) 100 05/04/19 07:26 87 24 100 Mechanical Ventilator 40 82 18 40 40 05/04/19 07:00 98.9 83 18 146/92 (110) 98 05/04/19 06:30 79 22 05/04/19 06:00 78 21 141/84 (103) 82 05/04/19 05:30 82 19 149/88 (108) 84 05/04/19 05:15 70 24 40 05/04/19 05:00 23 Mechanical Ventilator 40 05/04/19 05:00 72 21 130/72 (91) 96 05/04/19 04:30 57 21 105/66 (79) 100 05/04/19 04:00 99.0 60 24 101/63 (76) 100 05/04/19 04:00 Mechanical Ventilator 05/04/19 04:00 22 Mechanical Ventilator 40 05/04/19 04:00 40 05/04/19 04:00 56 05/04/19 03:30 58 22 94/60 (71) 100 05/04/19 03:07 60 23 100 Mechanical Ventilator 40 05/04/19 03:00 60 22 100/67 (78) 100 05/04/19 03:00 23 Mechanical Ventilator 40 05/04/19 02:57 61 22 Mechanical Ventilator 40 40 05/04/19 02:30 64 22 96/60 (72) 100 05/04/19 02:00 71 21 112/73 (86) 100 05/04/19 02:00 22 Mechanical Ventilator 40 05/04/19 01:30 79 21 127/71 (89) 100 05/04/19 01:04 68 24 40 05/04/19 01:00 65 22 113/63 (80) 99 05/04/19 01:00 22 Mechanical Ventilator 40 05/04/19 00:30 65 23 103/66 (78) 99 05/04/19 00:00 22 Mechanical Ventilator 40 05/04/19 00:00 Mechanical Ventilator 05/04/19 00:00 98.8 64 23 105/63 (77) 99 05/03/19 23:30 67 22 97/62 (74) 99 05/03/19 23:09 60 22 100 Mechanical Ventilator 40 05/03/19 23:00 60 22 94/59 (71) 100 05/03/19 23:00 22 Mechanical Ventilator 40 05/03/19 22:59 61 22 Mechanical Ventilator 40 40 05/03/19 22:30 62 22 100/59 (73) 99 05/03/19 22:00 23 Mechanical Ventilator 40 05/03/19 22:00 61 23 98/60 (73) 100 05/03/19 21:43 24 40 05/03/19 21:30 64 23 97/59 (72) 99 05/03/19 21:00 60 23 93/58 (70) 99 05/03/19 21:00 24 Mechanical Ventilator 40 05/03/19 20:58 62 22 40 05/03/19 20:33 65 05/03/19 20:30 63 23 92/60 (71) 99 05/03/19 20:00 22 Mechanical Ventilator 40 05/03/19 20:00 Mechanical Ventilator 05/03/19 20:00 99.0 63 22 90/62 (71) 99 05/03/19 20:00 40 05/03/19 19:30 63 22 99/60 (73) 99 05/03/19 19:20 65 22 100 Mechanical Ventilator 40 05/03/19 19:10 65 22 Mechanical Ventilator 40 40 05/03/19 19:00 99.5 66 23 103/66 (78) 100 05/03/19 19:00 22 Mechanical Ventilator 40 05/03/19 18:00 72 22 118/71 (87) 100 05/03/19 18:00 99.5 05/03/19 18:00 22 Mechanical Ventilator 40 05/03/19 17:30 71 24 141/76 (97) 100 05/03/19 17:30 71 24 40 05/03/19 17:00 66 22 128/79 (95) 99 05/03/19 17:00 22 Mechanical Ventilator 40 05/03/19 16:30 66 22 108/72 (84) 98 05/03/19 16:00 40 05/03/19 16:00 22 Mechanical Ventilator 40 05/03/19 16:00 Mechanical Ventilator 05/03/19 16:00 101.2 66 22 107/69 (82) 98 05/03/19 16:00 71 05/03/19 15:30 84 22 113/75 (88) 98 05/03/19 15:20 67 22 98 Mechanical Ventilator 40 69 22 40 05/03/19 15:00 22 Mechanical Ventilator 40 05/03/19 15:00 67 22 103/73 (83) 99 05/03/19 14:30 71 22 111/62 (78) 99 05/03/19 14:00 71 22 136/85 (102) 99 05/03/19 14:00 22 Mechanical Ventilator 40 05/03/19 13:30 69 22 118/76 (90) 100 05/03/19 13:00 71 21 123/81 (95) 100 05/03/19 13:00 22 Mechanical Ventilator 40 05/03/19 12:40 74 23 40 05/03/19 12:30 73 21 112/67 (82) 100 05/03/19 12:00 22 Mechanical Ventilator 40 05/03/19 12:00 78 05/03/19 12:00 99.6 80 20 122/75 (91) 100 05/03/19 12:00 40 05/03/19 12:00 Mechanical Ventilator 05/03/19 11:30 80 17 120/88 (99) 100 05/03/19 11:00 22 Mechanical Ventilator 40 05/03/19 11:00 79 21 144/81 (102) 98 05/03/19 10:56 73 22 100 Mechanical Ventilator 40 76 25 40 05/03/19 10:30 74 21 111/74 (86) 100 05/03/19 10:00 22 Mechanical Ventilator 40 05/03/19 10:00 77 21 99/71 (80) 100 05/03/19 09:30 79 22 103/68 (80) 100 05/03/19 09:00 86 18 122/80 (94) 100 05/03/19 09:00 16 Mechanical Ventilator 40 05/03/19 08:55 86 26 40 05/03/19 08:30 90 18 120/74 (89) 100 05/03/19 08:00 88 05/03/19 08:00 98.1 85 22 131/93 (106) 100 05/03/19 08:00 Mechanical Ventilator 05/03/19 08:00 40 05/03/19 07:30 78 22 90/67 (75) 100 05/03/19 07:16 83 22 100 Mechanical Ventilator 40 82 22 40 05/03/19 07:00 82 21 133/80 (97) 99 05/03/19 07:00 22 Mechanical Ventilator 40 05/03/19 06:00 Mechanical Ventilator 40 05/03/19 06:00 78 21 120/82 (95) 99 05/03/19 05:56 71 22 05/03/19 05:30 71 22 107/75 (86) 99 05/03/19 05:30 73 22 40 05/03/19 05:00 71 22 99/64 (76) 99 05/03/19 05:00 22 Mechanical Ventilator 40 05/03/19 04:00 Mechanical Ventilator 05/03/19 04:00 71 05/03/19 04:00 22 Mechanical Ventilator 40 05/03/19 04:00 40 05/03/19 04:00 98.8 72 22 94/67 (76) 100 05/03/19 03:48 73 22 100 Mechanical Ventilator 50 76 22 50 05/03/19 03:30 73 23 122/68 (86) 98 05/03/19 03:00 67 21 123/77 (92) 99 05/03/19 03:00 22 Mechanical Ventilator 40 05/03/19 02:30 68 22 111/69 (83) 98 05/03/19 02:15 69 22 112/73 (86) 99 05/03/19 02:00 Mechanical Ventilator 40 05/03/19 02:00 68 22 112/68 (83) 98 05/03/19 01:45 67 22 107/70 (82) 98 05/03/19 01:32 65 22 40 05/03/19 01:30 67 22 113/72 (86) 98 05/03/19 01:15 68 22 116/73 (87) 98 05/03/19 01:00 67 22 117/73 (88) 98 05/03/19 01:00 22 Mechanical Ventilator 40 05/03/19 00:45 65 22 114/76 (89) 98 05/03/19 00:30 64 22 118/74 (89) 98 05/03/19 00:15 63 22 119/74 (89) 99 05/03/19 00:00 40 05/03/19 00:00 65 05/03/19 00:00 24 Mechanical Ventilator 40 05/03/19 00:00 Mechanical Ventilator 05/03/19 00:00 99.1 60 22 126/79 (95) 100 05/02/19 23:45 62 22 116/76 (89) 100 05/02/19 23:36 62 22 100 Mechanical Ventilator 50 65 22 50 05/02/19 23:30 62 22 120/73 (89) 100 05/02/19 23:15 63 22 117/72 (87) 100 05/02/19 23:00 Mechanical Ventilator 50 05/02/19 23:00 63 22 108/67 (81) 100 05/02/19 22:45 62 22 105/70 (82) 100 2/3/20 22:30 61 22 89/63 (72) 100 2/3/20 22:15 66 22 90/62 (71) 99 2/3/20 22:00 22 Mechanical Ventilator 50 2/3/20 22:00 98.8 68 22 84/58 (67) 99 2/3/20 21:54 22 Mechanical Ventilator 50 2/3/20 21:50 50 2/3/20 21:41 73 2/3/20 21:30 98.8 73 22 97/66 (76) 99 2/3/20 21:23 72 19 98 Mechanical Ventilator 50 2//20 21:23 72 19 50 2//20 21:15 Mechanical Ventilator 2//20 21:15 98.4 92 18 123/69 100 Mechanical Ventilator 1.0 50 2//20 21:07 Mechanical Ventilator 2//20 20:50 18 123/69 Mechanical Ventilator 50 2//20 20:50 98.4 96 18 123/69 100 Mechanical Ventilator 1.0 50 2//20 19:50 18 124/71 Mechanical Ventilator 50 2//20 19:50 98.4 96 18 124/71 100 Mechanical Ventilator 1.0 50 2/3/20 19:35 18 122/71 Mechanical Ventilator 50 2//20 19:35 98.4 96 18 122/71 100 Mechanical Ventilator 1.0 50 2/3/20 19:20 18 118/62 Mechanical Ventilator 50 2/3/20 19:20 98.4 95 18 126/74 100 Mechanical Ventilator 50 2//20 19:05 18 112/62 Mechanical Ventilator 50 2//20 19:05 98.4 98 18 118/62 100 Mechanical Ventilator 50 2//20 19:00 86 18 50 2//20 18:50 19 112/62 Mechanical Ventilator 50 2//20 18:49 19 Mechanical Ventilator 50 2//20 18:35 18 110/70 Mechanical Ventilator 50 2//20 18:20 15 102/56 Mechanical Ventilator 50 2//20 18:09 92 20 100 Mechanical Ventilator 50 88 18 100 2//20 17:47 88 18 50 2//20 17:35 50 2//20 14:48 92 18 Nasal Cannula 99 05/02/20 14:48 98.4 92 18 117/83 99 Nasal Cannula 1.0 Intake and Output 05/03/19 05/04/19 19:00 07:00 Intake Total 1348 ml 1325 ml Output Total 980 ml 710 ml Balance 368 ml 615 ml Free Water 60 ml IV Total 1318 ml 1020 ml Tube Feeding 30 ml 245 ml Output Urine Total 980 ml 710 ml Labs Test 05/02/19 16:00 05/02/19 16:30 05/02/19 17:53 05/02/19 19:20 White Blood Count 14.6 K/UL (4.8-10.8) Red Blood Count 2.76 M/UL (4.20-5.40) Hemoglobin 8.8 G/DL (12.0-16.0) Hematocrit 28.3 % (37.0-47.0) Mean Corpuscular Volume 102 FL (80-99) Mean Corpuscular Hemoglobin 31.9 PG (27.0-31.0) Mean Corpuscular Hemoglobin Concent 31.1 G/DL (32.0-36.0) Red Cell Distribution Width 14.8 % (11.6-14.8) Platelet Count 191 K/UL (150-450) Mean Platelet Volume 7.8 FL (6.5-10.1) Neutrophils (%) (Auto) 80.2 % (45.0-75.0) Lymphocytes (%) (Auto) 7.6 % (20.0-45.0) Monocytes (%) (Auto) 11.3 % (1.0-10.0) Eosinophils (%) (Auto) 0.3 % (0.0-3.0) Basophils (%) (Auto) 0.6 % (0.0-2.0) Sodium Level 138 MMOL/L (136-145) Potassium Level 4.0 MMOL/L (3.5-5.1) Chloride Level 101 MMOL/L (98-107) Carbon Dioxide Level 18 MMOL/L (21-32) Anion Gap 19 mmol/L (5-15) Blood Urea Nitrogen 124 mg/dL (7-18) Creatinine 5.0 MG/DL (0.55-1.30) Estimat Glomerular Filtration Rate 8.9 mL/min (>60) Glucose Level 109 MG/DL (74-106) Lactic Acid Level 0.70 mmol/L (0.4-2.0) Calcium Level 9.4 MG/DL (8.5-10.1) Total Bilirubin 0.3 MG/DL (0.2-1.0) Aspartate Amino Transf (AST/SGOT) 27 U/L (15-37) Alanine Aminotransferase (ALT/SGPT) 25 U/L (12-78) Alkaline Phosphatase 84 U/L (46-116) Total Creatine Kinase 25 U/L (26-308) Creatine Kinase MB 0.8 NG/ML (0.0-3.6) Creatine Kinase MB Relative Index 3.2 Troponin I 0.000 ng/mL (0.000-0.056) Total Protein 7.6 G/DL (6.4-8.2) Albumin 1.8 G/DL (3.4-5.0) Globulin 5.8 g/dL Albumin/Globulin Ratio 0.3 (1.0-2.7) Triglycerides Level 376 MG/DL (30-150) Urine Color Pale yellow Urine Appearance Turbid Urine pH 5 (4.5-8.0) Urine Specific [place] 1.010 (1.005-1.035) Urine Protein 3+ (NEGATIVE) Urine Glucose (UA) Negative (NEGATIVE) Urine Ketones Negative (NEGATIVE) Urine Blood 4+ (NEGATIVE) Urine Nitrite Positive (NEGATIVE) Urine Bilirubin Negative (NEGATIVE) Urine Urobilinogen Normal MG/DL (0.0-1.0) Urine Leukocyte Esterase 3+ (NEGATIVE) Urine RBC Tntc /HPF (0 - 2) Urine WBC Tntc /HPF (0 - 2) Urine Squamous Epithelial Cells Moderate /LPF (NONE/OCC) Urine Bacteria Many /HPF (NONE) Arterial Blood pH 7.238 (7.350-7.450) Arterial Blood Partial Pressure CO2 45.4 mmHg (35.0-45.0) Arterial Blood Partial Pressure O2 92.4 mmHg (75.0-100.0) Arterial Blood HCO3 18.9 mmol/L (22.0-26.0) Arterial Blood Oxygen Saturation 95.4 % (95-100) Arterial Blood Base Excess -8.1 (-2-2) Miguel Angel Test Positive Test 05/02/19 22:00 05/03/19 04:00 05/04/19 04:30 05/04/19 08:23 Urine Random Sodium 71 mmol/L (20-110) White Blood Count 11.3 K/UL (4.8-10.8) 13.0 K/UL (4.8-10.8) Red Blood Count 2.31 M/UL (4.20-5.40) 2.18 M/UL (4.20-5.40) Hemoglobin 7.4 G/DL (12.0-16.0) 7.1 G/DL (12.0-16.0) Hematocrit 22.2 % (37.0-47.0) 21.0 % (37.0-47.0) Mean Corpuscular Volume 96 FL (80-99) 96 FL (80-99) Mean Corpuscular Hemoglobin 31.9 PG (27.0-31.0) 32.6 PG (27.0-31.0) Mean Corpuscular Hemoglobin Concent 33.3 G/DL (32.0-36.0) 33.9 G/DL (32.0-36.0) Red Cell Distribution Width 14.6 % (11.6-14.8) 14.9 % (11.6-14.8) Platelet Count 255 K/UL (150-450) 277 K/UL (150-450) Mean Platelet Volume 5.7 FL (6.5-10.1) 5.6 FL (6.5-10.1) Neutrophils (%) (Auto) % (45.0-75.0) % (45.0-75.0) Lymphocytes (%) (Auto) % (20.0-45.0) % (20.0-45.0) Monocytes (%) (Auto) % (1.0-10.0) % (1.0-10.0) Eosinophils (%) (Auto) % (0.0-3.0) % (0.0-3.0) Basophils (%) (Auto) % (0.0-2.0) % (0.0-2.0) Differential Total Cells Counted 100 Neutrophils % (Manual) 96 % (45-75) Lymphocytes % (Manual) 2 % (20-45) Monocytes % (Manual) 2 % (1-10) Eosinophils % (Manual) 0 % (0-3) Basophils % (Manual) 0 % (0-2) Band Neutrophils 0 % (0-8) Platelet Estimate Adequate Platelet Morphology Normal Hypochromasia 3+ Anisocytosis 1+ Spherocytes 2+ Arterial Blood pH 7.310 (7.350-7.450) 7.263 (7.350-7.450) Arterial Blood Partial Pressure CO2 37.6 mmHg (35.0-45.0) 41.4 mmHg (35.0-45.0) Arterial Blood Partial Pressure O2 123.1 mmHg (75.0-100.0) 83.2 mmHg (75.0-100.0) Arterial Blood HCO3 18.5 mmol/L (22.0-26.0) 18.3 mmol/L (22.0-26.0) Arterial Blood Oxygen Saturation 97.9 % (95-100) 94.8 % (95-100) Arterial Blood Base Excess -7.1 (-2-2) -8.2 (-2-2) Miguel Angel Test Positive Positive Sodium Level 138 MMOL/L (136-145) 146 MMOL/L (136-145) Potassium Level 3.8 MMOL/L (3.5-5.1) 3.6 MMOL/L (3.5-5.1) Chloride Level 103 MMOL/L (98-107) 115 MMOL/L (98-107) Carbon Dioxide Level 19 MMOL/L (21-32) 19 MMOL/L (21-32) Anion Gap 16 mmol/L (5-15) 12 mmol/L (5-15) Blood Urea Nitrogen 112 mg/dL (7-18) 102 mg/dL (7-18) Creatinine 4.4 MG/DL (0.55-1.30) 3.6 MG/DL (0.55-1.30) Estimat Glomerular Filtration Rate 10.3 mL/min (>60) 13.1 mL/min (>60) Glucose Level 214 MG/DL (74-106) 201 MG/DL (74-106) Hemoglobin A1c 5.3 % (4.3-6.0) Lactic Acid Level 0.50 mmol/L (0.4-2.0) 1.00 mmol/L (0.4-2.0) Calcium Level 9.2 MG/DL (8.5-10.1) 9.0 MG/DL (8.5-10.1) Phosphorus Level 6.1 MG/DL (2.5-4.9) 5.1 MG/DL (2.5-4.9) Magnesium Level 2.3 MG/DL (1.8-2.4) 2.1 MG/DL (1.8-2.4) Iron Level 71 ug/dL (50-175) Total Iron Binding Capacity 102 ug/dL (250-450) Percent Iron Saturation 70 % (15-50) Unsaturated Iron Binding 31 ug/dL (112-346) Ferritin 1551 NG/ML (8-388) Total Bilirubin 0.3 MG/DL (0.2-1.0) 0.2 MG/DL (0.2-1.0) Gamma Glutamyl Transpeptidase 29 U/L (5-85) Aspartate Amino Transf (AST/SGOT) 21 U/L (15-37) 26 U/L (15-37) Alanine Aminotransferase (ALT/SGPT) 25 U/L (12-78) 26 U/L (12-78) Alkaline Phosphatase 71 U/L (46-116) 64 U/L (46-116) Ammonia 27 umol/L (11-32) Total Creatine Kinase 38 U/L (26-308) Troponin I 0.000 ng/mL (0.000-0.056) C-Reactive Protein, Quantitative 21.5 mg/dL (0.00-0.90) 15.7 mg/dL (0.00-0.90) Total Protein 8.0 G/DL (6.4-8.2) 7.3 G/DL (6.4-8.2) Albumin 2.1 G/DL (3.4-5.0) 1.9 G/DL (3.4-5.0) Globulin 5.9 g/dL 5.4 g/dL Albumin/Globulin Ratio 0.4 (1.0-2.7) 0.4 (1.0-2.7) Triglycerides Level 372 MG/DL (30-150) Cholesterol Level 169 MG/DL (< 200) LDL Cholesterol 63 mg/dL (<100) HDL Cholesterol 10 MG/DL (40-60) Cholesterol/HDL Ratio 16.9 (3.3-4.4) Lipase 66 U/L (73-393) Vitamin B12 Level 1037 PG/ML (193-986) Folate 11.9 NG/ML (8.6-58.9) Thyroid Stimulating Hormone (TSH) 0.989 uiU/mL (0.358-3.740) Uric Acid 13.0 MG/DL (2.6-7.2) Pro-B-Type Natriuretic Peptide 1456 pg/mL (0-125) Test 05/04/19 10:41 Arterial Blood pH 7.278 (7.350-7.450) Arterial Blood Partial Pressure CO2 40.1 mmHg (35.0-45.0) Arterial Blood Partial Pressure O2 107.6 mmHg (75.0-100.0) Arterial Blood HCO3 18.3 mmol/L (22.0-26.0) Arterial Blood Oxygen Saturation 97.6 % (95-100) Arterial Blood Base Excess -7.8 (-2-2) Miguel Angel Test Positive Height (Feet): 5 Height (Inches): 3.00 Weight (Pounds): 186 Objective PE Vital Signs Gen: unresponsive Pulm:++self-extubated CV: RRR, no mgr Abd: soft, nt, d Ext: no cce, s/p bka lle Labs: noted Colby Canada MD May 04, 2019 14:33
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
--- NOTE | 2019-05-04 16:02 | NUR ---
NURSE NOTES: Changed nephrostomy bag on right side. Leaking noted from previous bag. Received orders to d/c IVF and remove NGT. Will carry out orders.
--- NOTE | 2019-05-04 18:43 | NUR ---
NURSE NOTES: tolerated 75% of dinner meal. Patient requesting lots of water with ice. Informed patient has already consumed 3200ml of water. Will reinforce and restrict as possible.
--- NOTE | 2019-05-04 19:00 | NUR ---
HAND-OFF: Report given to GUZMAN Mata.
--- NOTE | 2019-05-04 19:45 | NUR ---
NURSE NOTES: Called Dr Freeman for continuation of pts psych meds.- Awaiting for md to call back.
[2019-05-04] MEDS: LORazepam Inj 2mg/ml 1ml IV PRN (19:52)
--- NOTE | 2019-05-04 19:52 | NUR ---
NURSE NOTES: Pt was very agitated, - Ativan 0.5mg ivp was given.
[2019-05-04] MEDS: Dyna-Hex 2% Top Sol 2oz TOPIC SCH (19:53)
--- NOTE | 2019-05-04 20:22 | NUR ---
NURSE NOTES: Called Dr Pearl (per Dr toscano )request for continuation of psych meds.
--- NOTE | 2019-05-04 20:29 | General Progress Note ---
Assessment/Plan Assessment/Plan: Assessment - Resp failure - resolved - anemia - PVD Recommendations - swallow eval - NGT feeds - PO trial - Follow labs - abx Subjective Allergies: Coded Allergies: Grits (Unverified Allergy, Unknown, 07/06/17) [place] (Unverified Allergy, Unknown, 07/06/17) Subjective self extubated this am d/w staff educator to get bedside swallow Objective Last 24 Hour Vital Signs Date Time Temp Pulse Resp B/P (MAP) Pulse Ox O2 Delivery O2 Flow Rate FiO2 05/04/19 19:37 79 17 100 Nasal Cannula 1.0 24 77 15 98 05/04/19 18:00 81 18 133/90 (104) 99 05/04/19 17:00 89 18 102/47 (65) 97 05/04/19 16:00 2.0 05/04/19 16:00 Mechanical Ventilator 2.0 Nasal Cannula 05/04/19 16:00 92 05/04/19 16:00 98.6 80 17 139/85 (103) 97 05/04/19 15:00 87 18 128/75 (92) 97 05/04/19 14:00 81 17 139/85 (103) 97 05/04/19 13:00 Nasal Cannula 1.0 24 05/04/19 13:00 85 16 155/81 (105) 97 05/04/19 13:00 Nasal Cannula 1.0 24 05/04/19 12:30 85 20 158/83 (108) 97 05/04/19 12:10 90 18 100 Nasal Cannula 1.0 24 85 16 100 05/04/19 12:00 98.6 75 16 156/91 (112) 100 05/04/19 12:00 2.0 05/04/19 12:00 75 05/04/19 12:00 Mechanical Ventilator 2.0 Nasal Cannula 05/04/19 11:00 72 20 143/91 (108) 99 05/04/19 10:30 78 20 155/108 (124) 99 05/04/19 10:00 87 15 155/92 (113) 100 05/04/19 09:38 82 16 100 Bi-Pap 35 05/04/19 09:34 87 16 100 Facial 35 05/04/19 09:30 90 22 140/116 (124) 100 05/04/19 09:00 90 20 140/85 (103) 99 2/5/20 08:57 Venturi Mask 10.0 45 05/04/19 08:30 88 17 154/128 (137) 83 05/04/19 08:00 83 05/04/19 08:00 Mechanical Ventilator 05/04/19 08:00 92 16 145/90 (108) 100 05/04/19 08:00 12.0 45 05/04/19 07:45 12.0 45 05/04/19 07:32 100 05/04/19 07:30 81 16 154/92 (112) 100 05/04/19 07:26 87 24 100 Mechanical Ventilator 40 82 18 40 40 05/04/19 07:00 98.9 83 18 146/92 (110) 98 05/04/19 06:30 79 22 05/04/19 06:00 78 21 141/84 (103) 82 05/04/19 05:30 82 19 149/88 (108) 84 05/04/19 05:15 70 24 40 05/04/19 05:00 23 Mechanical Ventilator 40 05/04/19 05:00 72 21 130/72 (91) 96 05/04/19 04:30 57 21 105/66 (79) 100 05/04/19 04:00 99.0 60 24 101/63 (76) 100 05/04/19 04:00 Mechanical Ventilator 05/04/19 04:00 22 Mechanical Ventilator 40 05/04/19 04:00 40 05/04/19 04:00 56 05/04/19 03:30 58 22 94/60 (71) 100 05/04/19 03:07 60 23 100 Mechanical Ventilator 40 05/04/19 03:00 60 22 100/67 (78) 100 05/04/19 03:00 23 Mechanical Ventilator 40 05/04/19 02:57 61 22 Mechanical Ventilator 40 40 05/04/19 02:30 64 22 96/60 (72) 100 05/04/19 02:00 71 21 112/73 (86) 100 05/04/19 02:00 22 Mechanical Ventilator 40 05/04/19 01:30 79 21 127/71 (89) 100 05/04/19 01:04 68 24 40 05/04/19 01:00 65 22 113/63 (80) 99 05/04/19 01:00 22 Mechanical Ventilator 40 05/04/19 00:30 65 23 103/66 (78) 99 05/04/19 00:00 22 Mechanical Ventilator 40 05/04/19 00:00 Mechanical Ventilator 05/04/19 00:00 98.8 64 23 105/63 (77) 99 05/03/19 23:30 67 22 97/62 (74) 99 05/03/19 23:09 60 22 100 Mechanical Ventilator 40 05/03/19 23:00 60 22 94/59 (71) 100 05/03/19 23:00 22 Mechanical Ventilator 40 05/03/19 22:59 61 22 Mechanical Ventilator 40 40 05/03/19 22:30 62 22 100/59 (73) 99 05/03/19 22:00 23 Mechanical Ventilator 40 05/03/19 22:00 61 23 98/60 (73) 100 05/03/19 21:43 24 40 05/03/19 21:30 64 23 97/59 (72) 99 05/03/19 21:00 60 23 93/58 (70) 99 05/03/19 21:00 24 Mechanical Ventilator 40 05/03/19 20:58 62 22 40 05/03/19 20:33 65 05/03/19 20:30 63 23 92/60 (71) 99 Intake and Output 05/03/19 05/04/19 18:59 06:59 Intake Total 1333 ml 1357 ml Output Total 980 ml 730 ml Balance 353 ml 627 ml IV Total 1318 ml 1122 ml Tube Feeding 15 ml 235 ml Output Urine Total 980 ml 730 ml Laboratory Tests 05/04/19 04:30: White Blood Count 13.0H, Red Blood Count 2.18L, Hemoglobin 7.1L, Hematocrit 21.0L, Mean Corpuscular Volume 96, Mean Corpuscular Hemoglobin 32.6H, Mean Corpuscular Hemoglobin Concent 33.9, Red Cell Distribution Width 14.9H, Platelet Count 277, Mean Platelet Volume 5.6L, Neutrophils (%) (Auto) , Lymphocytes (%) (Auto) , Monocytes (%) (Auto) , Eosinophils (%) (Auto) , Basophils (%) (Auto) , Sodium Level 146H, Potassium Level 3.6, Chloride Level 115H, Carbon Dioxide Level 19L, Anion Gap 12, Blood Urea Nitrogen 102H, Creatinine 3.6H, Estimat Glomerular Filtration Rate 13.1, Glucose Level 201H, Lactic Acid Level 1.00, Uric Acid 13.0H, Calcium Level 9.0, Phosphorus Level 5.1H, Magnesium Level 2.1, Total Bilirubin 0.2, Aspartate Amino Transf (AST/SGOT ) 26, Alanine Aminotransferase (ALT/SGPT) 26, Alkaline Phosphatase 64, C- Reactive Protein, Quantitative 15.7H, Pro-B-Type Natriuretic Peptide 1456H, Total Protein 7.3, Albumin 1.9L, Globulin 5.4, Albumin/Globulin Ratio 0.4L 05/04/19 08:23: Arterial Blood pH 7.263L, Arterial Blood Partial Pressure CO2 41.4, Arterial Blood Partial Pressure O2 83.2, Arterial Blood HCO3 18.3L, Arterial Blood Oxygen Saturation 94.8L, Arterial Blood Base Excess -8.2L, Miguel Angel Test Positive 05/04/19 10:41: Arterial Blood pH 7.278L, Arterial Blood Partial Pressure CO2 40.1, Arterial Blood Partial Pressure O2 107.6H, Arterial Blood HCO3 18.3L, Arterial Blood Oxygen Saturation 97.6, Arterial Blood Base Excess -7.8L, Miguel Angel Test Positive Height (Feet): 5 Height (Inches): 3.00 Weight (Pounds): 186 Objective WDWN NCAT supple CTA RR abd soft no edema, (+) Landon Mckeon MD May 04, 2019 20:29
--- NOTE | 2019-05-04 20:46 | General Progress Note ---
Assessment/Plan Problem List: (1) Respiratory distress ICD Codes: R06.03 - Acute respiratory distress SNOMED: 041554173 (2) Leukocytosis ICD Codes: D72.829 - Elevated white blood cell count, unspecified SNOMED: 351723181, 544246468 (3) Renal failure ICD Codes: N19 - Unspecified kidney failure SNOMED: 74079677 (4) Respiratory failure ICD Codes: J96.90 - Respiratory failure, unspecified, unspecified whether with hypoxia or hypercapnia SNOMED: 248336461 (5) Pneumonia ICD Codes: J18.9 - Pneumonia, unspecified organism SNOMED: 435387268 (6) Schizophrenia ICD Codes: F20.9 - Schizophrenia, unspecified SNOMED: 28703466 (7) Seizure disorder ICD Codes: G40.909 - Epilepsy, unspecified, not intractable, without status epilepticus SNOMED: 060719963 (8) Hypoalbuminemia ICD Codes: E88.09 - Other disorders of plasma-protein metabolism, not elsewhere classified SNOMED: 855426469 Status: progressing Assessment/Plan: resp failure afebrile pna psych patient reviewed chart and labs arf has one nephrostomy tube Subjective ROS Limited/Unobtainable: Yes Allergies: Coded Allergies: Grits (Unverified Allergy, Unknown, 07/06/17) [place] (Unverified Allergy, Unknown, 07/06/17) Objective Last 24 Hour Vital Signs Date Time Temp Pulse Resp B/P (MAP) Pulse Ox O2 Delivery O2 Flow Rate FiO2 05/04/19 20:00 98.8 91 17 111/66 (81) 99 05/04/19 19:37 79 17 100 Nasal Cannula 1.0 24 77 15 98 05/04/19 18:00 81 18 133/90 (104) 99 05/04/19 17:00 89 18 102/47 (65) 97 05/04/19 16:00 2.0 05/04/19 16:00 Mechanical Ventilator 2.0 Nasal Cannula 05/04/19 16:00 92 05/04/19 16:00 98.6 80 17 139/85 (103) 97 05/04/19 15:00 87 18 128/75 (92) 97 05/04/19 14:00 81 17 139/85 (103) 97 05/04/19 13:00 Nasal Cannula 1.0 24 05/04/19 13:00 85 16 155/81 (105) 97 05/04/19 13:00 Nasal Cannula 1.0 24 05/04/19 12:30 85 20 158/83 (108) 97 05/04/19 12:10 90 18 100 Nasal Cannula 1.0 24 85 16 100 05/04/19 12:00 98.6 75 16 156/91 (112) 100 05/04/19 12:00 2.0 05/04/19 12:00 75 05/04/19 12:00 Mechanical Ventilator 2.0 Nasal Cannula 05/04/19 11:00 72 20 143/91 (108) 99 05/04/19 10:30 78 20 155/108 (124) 99 05/04/19 10:00 87 15 155/92 (113) 100 05/04/19 09:38 82 16 100 Bi-Pap 35 05/04/19 09:34 87 16 100 Facial 35 05/04/19 09:30 90 22 140/116 (124) 100 05/04/19 09:00 90 20 140/85 (103) 99 05/04/19 08:57 Venturi Mask 10.0 45 05/04/19 08:30 88 17 154/128 (137) 83 05/04/19 08:00 83 05/04/19 08:00 Mechanical Ventilator 05/04/19 08:00 92 16 145/90 (108) 100 05/04/19 08:00 12.0 45 05/04/19 07:45 12.0 45 05/04/19 07:32 100 05/04/19 07:30 81 16 154/92 (112) 100 05/04/19 07:26 87 24 100 Mechanical Ventilator 40 82 18 40 40 05/04/19 07:00 98.9 83 18 146/92 (110) 98 05/04/19 06:30 79 22 05/04/19 06:00 78 21 141/84 (103) 82 05/04/19 05:30 82 19 149/88 (108) 84 05/04/19 05:15 70 24 40 05/04/19 05:00 23 Mechanical Ventilator 40 05/04/19 05:00 72 21 130/72 (91) 96 05/04/19 04:30 57 21 105/66 (79) 100 05/04/19 04:00 99.0 60 24 101/63 (76) 100 05/04/19 04:00 Mechanical Ventilator 05/04/19 04:00 22 Mechanical Ventilator 40 05/04/19 04:00 40 05/04/19 04:00 56 05/04/19 03:30 58 22 94/60 (71) 100 05/04/19 03:07 60 23 100 Mechanical Ventilator 40 05/04/19 03:00 60 22 100/67 (78) 100 05/04/19 03:00 23 Mechanical Ventilator 40 05/04/19 02:57 61 22 Mechanical Ventilator 40 40 05/04/19 02:30 64 22 96/60 (72) 100 05/04/19 02:00 71 21 112/73 (86) 100 05/04/19 02:00 22 Mechanical Ventilator 40 05/04/19 01:30 79 21 127/71 (89) 100 05/04/19 01:04 68 24 40 05/04/19 01:00 65 22 113/63 (80) 99 05/04/19 01:00 22 Mechanical Ventilator 40 05/04/19 00:30 65 23 103/66 (78) 99 05/04/19 00:00 22 Mechanical Ventilator 40 05/04/19 00:00 Mechanical Ventilator 05/04/19 00:00 98.8 64 23 105/63 (77) 99 05/03/19 23:30 67 22 97/62 (74) 99 05/03/19 23:09 60 22 100 Mechanical Ventilator 40 05/03/19 23:00 60 22 94/59 (71) 100 05/03/19 23:00 22 Mechanical Ventilator 40 05/03/19 22:59 61 22 Mechanical Ventilator 40 40 05/03/19 22:30 62 22 100/59 (73) 99 05/03/19 22:00 23 Mechanical Ventilator 40 05/03/19 22:00 61 23 98/60 (73) 100 05/03/19 21:43 24 40 05/03/19 21:30 64 23 97/59 (72) 99 05/03/19 21:00 60 23 93/58 (70) 99 05/03/19 21:00 24 Mechanical Ventilator 40 05/03/19 20:58 62 22 40 Intake and Output 05/03/19 05/04/19 19:00 07:00 Intake Total 1348 ml 1425 ml Output Total 980 ml 710 ml Balance 368 ml 715 ml Free Water 60 ml IV Total 1318 ml 1120 ml Tube Feeding 30 ml 245 ml Output Urine Total 980 ml 710 ml Laboratory Tests 05/04/19 04:30: White Blood Count 13.0H, Red Blood Count 2.18L, Hemoglobin 7.1L, Hematocrit 21.0L, Mean Corpuscular Volume 96, Mean Corpuscular Hemoglobin 32.6H, Mean Corpuscular Hemoglobin Concent 33.9, Red Cell Distribution Width 14.9H, Platelet Count 277, Mean Platelet Volume 5.6L, Neutrophils (%) (Auto) , Lymphocytes (%) (Auto) , Monocytes (%) (Auto) , Eosinophils (%) (Auto) , Basophils (%) (Auto) , Sodium Level 146H, Potassium Level 3.6, Chloride Level 115H, Carbon Dioxide Level 19L, Anion Gap 12, Blood Urea Nitrogen 102H, Creatinine 3.6H, Estimat Glomerular Filtration Rate 13.1, Glucose Level 201H, Lactic Acid Level 1.00, Uric Acid 13.0H, Calcium Level 9.0, Phosphorus Level 5.1H, Magnesium Level 2.1, Total Bilirubin 0.2, Aspartate Amino Transf (AST/SGOT ) 26, Alanine Aminotransferase (ALT/SGPT) 26, Alkaline Phosphatase 64, C- Reactive Protein, Quantitative 15.7H, Pro-B-Type Natriuretic Peptide 1456H, Total Protein 7.3, Albumin 1.9L, Globulin 5.4, Albumin/Globulin Ratio 0.4L 05/04/19 08:23: Arterial Blood pH 7.263L, Arterial Blood Partial Pressure CO2 41.4, Arterial Blood Partial Pressure O2 83.2, Arterial Blood HCO3 18.3L, Arterial Blood Oxygen Saturation 94.8L, Arterial Blood Base Excess -8.2L, Miguel Angel Test Positive 05/04/19 10:41: Arterial Blood pH 7.278L, Arterial Blood Partial Pressure CO2 40.1, Arterial Blood Partial Pressure O2 107.6H, Arterial Blood HCO3 18.3L, Arterial Blood Oxygen Saturation 97.6, Arterial Blood Base Excess -7.8L, Miguel Angel Test Positive Height (Feet): 5 Height (Inches): 3.00 Weight (Pounds): 186 General Appearance: lethargic, confused Respiratory/Chest: chest wall non-tender Abdomen: soft Hadadz,Ali MD May 04, 2019 20:46
[2019-05-04] MEDS: Doxycycline Hyclate 100 MG in D5W 110 ML IV SCH (21:24)
--- NOTE | 2019-05-04 21:59 | NUR ---
NURSE NOTES: Informed Dr Smith , if we can resume pts psyche meds, since Dr ivan not answering, per Dr toscano order.
--- NOTE | 2019-05-04 22:58 | Cardiology Progress Note ---
Assessment/Plan Assessment/Plan 1. Hypotension, most likely septic shock, continue Levophed drip if mean arterial pressure drops below 65 mmHg. Of note, 2D echocardiography obtained in month of January had shown normal LV systolic and diastolic function with LVEF of approximately 65%. 2. History of peripheral vascular disease, status post left BKA. 3. History of CVA/TIA. 4. Acute respiratory failure. Chest x-ray shows no acute cardiopulmonary disease. Concern about pulmonary embolism. A 2Dechocardiography can shed light in this condition as well. 5. Obstructive uropathy, status post nephrostomy tube placement. 6. Acute kidney injury on CKD. 7. Seizure disorder. Follow up with Neurology. 8. Mixed hyperlipidemia with metabolic syndrome Subjective Subjective Self-extubated earlier today on Bipap mask. Sinus rhythm at rate of 91. Objective Last 24 Hour Vital Signs Date Time Temp Pulse Resp B/P (MAP) Pulse Ox O2 Delivery O2 Flow Rate FiO2 05/04/19 20:00 98.8 91 17 111/66 (81) 99 05/04/19 19:37 79 17 100 Nasal Cannula 1.0 24 77 15 98 05/04/19 18:00 81 18 133/90 (104) 99 05/04/19 17:00 89 18 102/47 (65) 97 05/04/19 16:00 2.0 05/04/19 16:00 Mechanical Ventilator 2.0 Nasal Cannula 05/04/19 16:00 92 05/04/19 16:00 98.6 80 17 139/85 (103) 97 05/04/19 15:00 87 18 128/75 (92) 97 05/04/19 14:00 81 17 139/85 (103) 97 05/04/19 13:00 Nasal Cannula 1.0 24 05/04/19 13:00 85 16 155/81 (105) 97 05/04/19 13:00 Nasal Cannula 1.0 24 05/04/19 12:30 85 20 158/83 (108) 97 05/04/19 12:10 90 18 100 Nasal Cannula 1.0 24 85 16 100 05/04/19 12:00 98.6 75 16 156/91 (112) 100 05/04/19 12:00 2.0 05/04/19 12:00 75 05/04/19 12:00 Mechanical Ventilator 2.0 Nasal Cannula 05/04/19 11:00 72 20 143/91 (108) 99 05/04/19 10:30 78 20 155/108 (124) 99 05/04/19 10:00 87 15 155/92 (113) 100 05/04/19 09:38 82 16 100 Bi-Pap 35 05/04/19 09:34 87 16 100 Facial 35 05/04/19 09:30 90 22 140/116 (124) 100 05/04/19 09:00 90 20 140/85 (103) 99 05/04/19 08:57 Venturi Mask 10.0 45 05/04/19 08:30 88 17 154/128 (137) 83 05/04/19 08:00 83 05/04/19 08:00 Mechanical Ventilator 05/04/19 08:00 92 16 145/90 (108) 100 05/04/19 08:00 12.0 45 05/04/19 07:45 12.0 45 05/04/19 07:32 100 05/04/19 07:30 81 16 154/92 (112) 100 05/04/19 07:26 87 24 100 Mechanical Ventilator 40 82 18 40 40 05/04/19 07:00 98.9 83 18 146/92 (110) 98 05/04/19 06:30 79 22 05/04/19 06:00 78 21 141/84 (103) 82 05/04/19 05:30 82 19 149/88 (108) 84 05/04/19 05:15 70 24 40 05/04/19 05:00 23 Mechanical Ventilator 40 05/04/19 05:00 72 21 130/72 (91) 96 05/04/19 04:30 57 21 105/66 (79) 100 05/04/19 04:00 99.0 60 24 101/63 (76) 100 05/04/19 04:00 Mechanical Ventilator 05/04/19 04:00 22 Mechanical Ventilator 40 05/04/19 04:00 40 05/04/19 04:00 56 05/04/19 03:30 58 22 94/60 (71) 100 05/04/19 03:07 60 23 100 Mechanical Ventilator 40 05/04/19 03:00 60 22 100/67 (78) 100 05/04/19 03:00 23 Mechanical Ventilator 40 05/04/19 02:57 61 22 Mechanical Ventilator 40 40 05/04/19 02:30 64 22 96/60 (72) 100 05/04/19 02:00 71 21 112/73 (86) 100 05/04/19 02:00 22 Mechanical Ventilator 40 05/04/19 01:30 79 21 127/71 (89) 100 05/04/19 01:04 68 24 40 05/04/19 01:00 65 22 113/63 (80) 99 05/04/19 01:00 22 Mechanical Ventilator 40 05/04/19 00:30 65 23 103/66 (78) 99 05/04/19 00:00 22 Mechanical Ventilator 40 05/04/19 00:00 Mechanical Ventilator 05/04/19 00:00 98.8 64 23 105/63 (77) 99 05/03/19 23:30 67 22 97/62 (74) 99 05/03/19 23:09 60 22 100 Mechanical Ventilator 40 05/03/19 23:00 60 22 94/59 (71) 100 05/03/19 23:00 22 Mechanical Ventilator 40 05/03/19 22:59 61 22 Mechanical Ventilator 40 40 Intake and Output 05/03/19 05/04/19 19:00 07:00 Intake Total 1348 ml 1425 ml Output Total 980 ml 710 ml Balance 368 ml 715 ml Free Water 60 ml IV Total 1318 ml 1120 ml Tube Feeding 30 ml 245 ml Output Urine Total 980 ml 710 ml Laboratory Tests Test 05/04/19 04:30 05/04/19 08:23 05/04/19 10:41 White Blood Count 13.0 K/UL (4.8-10.8) H Red Blood Count 2.18 M/UL (4.20-5.40) L Hemoglobin 7.1 G/DL (12.0-16.0) L Hematocrit 21.0 % (37.0-47.0) L Mean Corpuscular Volume 96 FL (80-99) Mean Corpuscular Hemoglobin 32.6 PG (27.0-31.0) H Mean Corpuscular Hemoglobin Concent 33.9 G/DL (32.0-36.0) Red Cell Distribution Width 14.9 % (11.6-14.8) H Platelet Count 277 K/UL (150-450) Mean Platelet Volume 5.6 FL (6.5-10.1) L Neutrophils (%) (Auto) % (45.0-75.0) Lymphocytes (%) (Auto) % (20.0-45.0) Monocytes (%) (Auto) % (1.0-10.0) Eosinophils (%) (Auto) % (0.0-3.0) Basophils (%) (Auto) % (0.0-2.0) Sodium Level 146 MMOL/L (136-145) H Potassium Level 3.6 MMOL/L (3.5-5.1) Chloride Level 115 MMOL/L (98-107) H Carbon Dioxide Level 19 MMOL/L (21-32) L Anion Gap 12 mmol/L (5-15) Blood Urea Nitrogen 102 mg/dL (7-18) H Creatinine 3.6 MG/DL (0.55-1.30) H Estimat Glomerular Filtration Rate 13.1 mL/min (>60) Glucose Level 201 MG/DL (74-106) H Lactic Acid Level 1.00 mmol/L (0.4-2.0) Uric Acid 13.0 MG/DL (2.6-7.2) H Calcium Level 9.0 MG/DL (8.5-10.1) Phosphorus Level 5.1 MG/DL (2.5-4.9) H Magnesium Level 2.1 MG/DL (1.8-2.4) Total Bilirubin 0.2 MG/DL (0.2-1.0) Aspartate Amino Transf (AST/SGOT) 26 U/L (15-37) Alanine Aminotransferase (ALT/SGPT) 26 U/L (12-78) Alkaline Phosphatase 64 U/L (46-116) C-Reactive Protein, Quantitative 15.7 mg/dL (0.00-0.90) H Pro-B-Type Natriuretic Peptide 1456 pg/mL (0-125) H Total Protein 7.3 G/DL (6.4-8.2) Albumin 1.9 G/DL (3.4-5.0) L Globulin 5.4 g/dL Albumin/Globulin Ratio 0.4 (1.0-2.7) L Arterial Blood pH 7.263 (7.350-7.450) 7.278 (7.350-7.450) Arterial Blood Partial Pressure CO2 41.4 mmHg (35.0-45.0) 40.1 mmHg (35.0-45.0) Arterial Blood Partial Pressure O2 83.2 mmHg (75.0-100.0) 107.6 mmHg (75.0-100.0) H Arterial Blood HCO3 18.3 mmol/L (22.0-26.0) L 18.3 mmol/L (22.0-26.0) L Arterial Blood Oxygen Saturation 94.8 % (95-100) L 97.6 % (95-100) Arterial Blood Base Excess -8.2 (-2-2) L -7.8 (-2-2) L Miguel Angel Test Positive Positive Microbiology Date/Time Source Procedure Growth Status 05/02/19 16:00 Blood Blood Culture - Preliminary NO GROWTH AFTER 24 HOURS Resulted 05/02/19 15:40 Blood Blood Culture - Preliminary Gram Negative Bacillus 1 Resulted 05/03/19 13:25 Nasal Nares - Final Complete 05/03/19 13:25 Nasal Nares - Final Complete 05/03/19 13:25 Sputum Gram Stain - Final Resulted 05/03/19 13:25 Sputum Culture - Preliminary Gram Negative Bacillus 1 Resulted 05/02/19 16:37 Nasal Nares MRSA Culture - Final NO METHICILLIN RESISTANT STAPH AUREUS... Complete 05/02/19 17:53 Urine,Clean Catch Urine Culture - Final Escherichia Coli - Esbl Complete 05/02/19 16:37 Rectum - Final NO CARBAPENEM-RESISTANT ENTEROBACTERI... Complete 05/02/19 16:37 Rectum VRE Culture - Final Enterococcus Faecalis - Vre Complete Objective GENERAL: The patient is a very unfortunate 58-year-old female, morbidly obese, intubated, awake. HEENT: Atraumatic and normocephalic. Anicteric. Pupils are equal, round, and reactive to light and accommodation. Conjunctival pallor is present. NECK: JVP cannot be assessed due to the fact that the patient is on the ventilator. No carotid bruit. Carotid upstrokes 2+ bilaterally. CARDIOVASCULAR: Normal S1, S2. Regular rate and rhythm. No murmurs, gallops, or rubs. PMI is at fourth intercostal space in the midclavicular line. LUNGS: Clear to auscultation bilaterally. ABDOMEN: Soft, nondistended. No hepatosplenomegaly. Positive bowel sounds. Bilateral nephrostomy tubes. EXTREMITIES: Left BKA, otherwise no edema, clubbing, or cyanosis. Justo Merchant MD May 04, 2019 22:58
--- NOTE | 2019-05-04 23:30 | NUR ---
NURSE NOTES: Dr Pearl called back with order to hold all the psyche meds til she see the pt.
--- NOTE | 2019-05-04 23:47 | NUR ---
NURSE NOTES: Pt refused BIPAP machine.
--- NOTE | 2019-05-04 23:53 | NUR ---
NURSE NOTES: Dr Smith was aware that pt refused BIPAP- no other orders given. Pt resting comfortably at this time. 02 sat 100%. and easily arousable.
[2019-05-05] VITALS (18 sets, daily range): BP systolic 100–152; BP diastolic 55–103
[2019-05-05] MEDS: Sodium Citrate 30ml ORAL SCH ×3 (00:24→18:26)
[2019-05-05] MEDS: LORazepam Inj 2mg/ml 1ml IV PRN (02:20)
--- NOTE | 2019-05-05 02:21 | NUR ---
NURSE NOTES: Pt was awake and agitated- ativan 0.5mg ivp was given
--- NOTE | 2019-05-05 03:30 | NUR ---
NURSE NOTES: Sleeping well at this time with vss. No resp. distress noted
[2019-05-05] MEDS: Albuterol/Ipratropium 3ml neb HHN SCH ×6 (03:34→23:11)
[2019-05-05 04:48] LABS: BASOPHILS % (AUTO) 0.6 % (0.0-2.0); EOSINOPHILS % (AUTO) 2.4 % (0.0-3.0); HEMOGLOBIN 8.7 G/DL (12.0-16.0); LYMPHOCYTES % (AUTO) 5.8 % (20.0-45.0); MEAN CORPUSCULAR VOLUME 95 FL (80-99); MONOCYTES % (AUTO) 6.8 % (1.0-10.0); NEUTROPHILS % (AUTO) 84.5 % (45.0-75.0); PLATELET COUNT 338 K/UL (150-450); RED BLOOD COUNT 2.63 M/UL (4.20-5.40); RED CELL DISTRIBUTION WIDTH 14.3 % (11.6-14.8); WHITE BLOOD COUNT 15.6 K/UL (4.8-10.8)
--- NOTE | 2019-05-05 05:00 | NUR ---
NURSE NOTES: Awake and frequently ask for water. Explained and set limits for inapropriate behavior.
[2019-05-05 05:28] LABS: ALANINE AMINOTRANSFERASE 24 U/L (12-78); ALBUMIN 1.9 G/DL (3.4-5.0); ALBUMIN/GLOBULIN RATIO 0.4 (1.0-2.7); ALKALINE PHOSPHATASE 63 U/L (46-116); ANION GAP 12 mmol/L (5-15); ASPARTATE AMINO TRANSFERASE 20 U/L (15-37); BILIRUBIN,TOTAL 0.3 MG/DL (0.2-1.0); BLOOD UREA NITROGEN 82 mg/dL (7-18); CALCIUM 8.9 MG/DL (8.5-10.1); CARBON DIOXIDE 23 MMOL/L (21-32); CHLORIDE 109 MMOL/L (98-107); CREATININE 2.6 MG/DL (0.55-1.30); POTASSIUM 3.6 MMOL/L (3.5-5.1); SODIUM 144 MMOL/L (136-145)
--- NOTE | 2019-05-05 05:56 | Hematology/Onc Progress Note ---
Assessment/Plan Assessment/Plan Assessment/Plan: # Anemia of chronic disease due to underlying chronic medical issues, multifactorial --> Anemia workup has been ordered, rule out gi bleed and no hemolysis is seen, ferritin is 1551 --> No evidence of hemolysis is noted, peripheral smear has been reviewed. --> Hgb goal >7. Transfuse prn. --> Epogen or iron at this time is not particularly indicated --> Medications have been reviewed --> low threshold for gi evaluation in case has occult + --> hgb trend 11.7-->10.7-->7.4-->7.1 # Leukocytosis is likely related to infection, reactive process, v infection v intubation, in past had esbl uti --> have reviewed peripheral smear and bandemia/neutrophilia noted --> continue antibiotics if they have been started by ID team --> monitor for resolution --> trend as needed --> also is on steriods # Left kidney mass -- 5 cm low-attenuation lesion demonstrating slightly higher than normal fluid attenuation coming off of the upper pole left kidney --> likely represents a complex possibly proteinaceous cyst, but necrotic solid mass also possible --> as per uro, appears stable # Dehydration --> ivf have been started --> anti-nausea meds started # S/P BKA (below knee amputation) unilateral --> left leg s/p amputation # Anxiety --> as per psych # Left hydronephrosis --> per uro # Resp failure s/p intubation --> intub 05/02 --> extubated 05/04 # Critically ill requiring icu adm on 05/03 # Dvt ppx heparin sq The timing of this note does not necessarily reflect the time of the patient was seen. Greatly appreciate consultation. Subjective HEENT: Denies: no symptoms, eye pain, blurred vision, tearing, double vision, ear pain, ear discharge, nose pain, nose congestion, throat pain, throat swelling, mouth pain, mouth swelling, other Cardiovascular: Denies: no symptoms, chest pain, edema, irregular heart rate, lightheadedness, palpitations, syncope, other Respiratory: Denies: no symptoms, cough, shortness of breath, SOB with excertion, SOB at rest, sputum, wheezing, other Genitourinary: Denies: no symptoms, burning, discharge, frequency, flank pain, hematuria, incontinence, pain, urgency, other Neurologic/Psychiatric: Denies: no symptoms, anxiety, depressed, emotional problems, headache, numbness, paresthesia, pre-existing deficit, seizure, tingling, tremors, weakness, other Allergies: Coded Allergies: Grits (Unverified Allergy, Unknown, 07/06/17) [place] (Unverified Allergy, Unknown, 07/06/17) Subjective 05/04: no bleeding or chills, no night sweats, cbc noted, on abx, gett prbc today , consent signed 05/05: has refused bipap, otherwise no bleeding or chills, no night sweats, cbc pending Objective Objective Current Medications Medications (Trade) Dose Ordered Sig/William Route PRN Reason Start Time Stop Time Status Last Admin Dose Admin Acetaminophen (Tylenol) 650 mg Q6H PRN NG Mild Pain/Temp > 100.5 05/02/19 20:45 06/01/19 20:44 05/03/19 17:30 Albuterol/ Ipratropium (Albuterol/ Ipratropium) 3 ml Q4H PRN HHN Shortness of Breath 05/02/19 20:45 05/07/19 20:44 Albuterol/ Ipratropium (Albuterol/ Ipratropium) 3 ml Q4HRT HHN 05/02/19 23:00 05/07/19 22:59 05/05/19 03:34 Allopurinol (allopurinoL) 300 mg DAILY NG 05/05/19 09:00 06/04/19 08:59 Chlorhexidine Gluconate (Genevieve-Hex 2%) 1 applic DAILY@2000 TOPIC 05/03/19 20:00 06/02/19 19:59 05/04/19 19:53 Dextrose (Dextrose 50%) 25 ml Q30M PRN IV Hypoglycemia 05/02/19 20:45 06/01/19 20:44 Dextrose (Dextrose 50%) 50 ml Q30M PRN IV Hypoglycemia 05/02/19 20:45 06/01/19 20:44 Doxycycline Hyclate 100 mg/ Dextrose 110 ml @ 110 mls/hr Q12HR IV 05/02/19 21:00 05/09/19 20:59 05/04/19 21:24 Gabapentin (Neurontin) 200 mg THREE TIMES A DAY NG 05/03/19 18:00 06/02/19 17:59 05/04/19 18:34 Heparin Sodium (Porcine) (Heparin 5000 units/ml) 5,000 units EVERY 12 HOURS SUBQ 05/02/19 21:00 06/01/19 20:59 05/04/19 08:44 Insulin Aspart (NovoLOG) Q6HR SUBQ 05/03/19 00:00 06/02/19 00:00 05/04/19 18:35 Lacosamide (Vimpat) 100 mg DAILY ORAL 05/04/19 09:00 06/03/19 08:59 05/04/19 08:39 Levetiracetam (Keppra) 250 mg Q12HR NG 05/03/19 21:00 06/02/19 20:59 05/04/19 21:24 Lorazepam (Ativan 2mg/ml 1ml) 0.5 mg Q2H PRN IV Agitation 05/02/19 20:45 05/09/19 20:44 05/05/19 02:20 Meropenem 500 mg/ Sodium Chloride 55 ml @ 110 mls/hr EVERY 12 HOURS IVPB 05/04/19 12:00 05/09/19 11:59 05/04/19 21:28 Methylprednisolone Sodium Succinate (Solu-MEDROL) 60 mg EVERY 8 HOURS IVP 05/02/19 22:00 06/01/19 21:59 05/04/19 22:06 Norepinephrine Bitartrate 4 mg/ Dextrose 250 ml @ 0 mls/hr Q24H PRN IV For hypotension 05/02/19 21:27 06/01/19 21:26 Olanzapine (ZyPREXA) 5 mg BEDTIME ORAL 05/05/19 21:00 06/04/19 20:59 Pantoprazole (Protonix) 40 mg Q12HR IVP 05/02/19 22:00 06/02/19 08:59 05/04/19 21:25 Sodium Citrate (Bicitra) 30 ml EVERY 6 HOURS ORAL 05/04/19 09:45 06/03/19 09:44 05/05/19 00:24 Last 24 Hour Vital Signs Date Time Temp Pulse Resp B/P (MAP) Pulse Ox O2 Delivery O2 Flow Rate FiO2 05/05/19 03:42 Nasal Cannula 1.0 24 05/05/19 03:42 Nasal Cannula 1.0 24 05/05/19 03:34 76 16 100 Nasal Cannula 1.0 24 73 14 100 05/05/19 01:00 72 16 114/71 (85) 97 05/05/19 00:00 82 05/05/19 00:00 98.4 72 14 111/68 (82) 97 05/05/19 00:00 Mechanical Ventilator 2.0 Nasal Cannula 05/04/19 23:49 Nasal Cannula 1.0 24 05/04/19 23:49 Nasal Cannula 1.0 24 05/04/19 23:11 70 15 100 Nasal Cannula 1.0 24 71 14 98 05/04/19 23:00 68 14 106/73 (84) 99 05/04/19 22:00 76 15 106/62 (77) 99 05/04/19 21:00 78 15 129/74 (92) 99 05/04/19 20:00 98.8 91 17 111/66 (81) 99 05/04/19 20:00 78 17 130/77 (94) 97 05/04/19 20:00 Mechanical Ventilator 2.0 Nasal Cannula 05/04/19 19:43 104 21 100 Nasal Cannula 1.0 24 05/04/19 19:40 99 19 100 Nasal Cannula 1.0 24 05/04/19 19:37 79 17 100 Nasal Cannula 1.0 24 77 15 98 05/04/19 19:30 80 17 141/88 (105) 98 05/04/19 19:00 79 19 137/84 (101) 99 05/04/19 18:00 81 18 133/90 (104) 99 05/04/19 17:00 89 18 102/47 (65) 97 05/04/19 16:00 2.0 05/04/19 16:00 Mechanical Ventilator 2.0 Nasal Cannula 05/04/19 16:00 92 05/04/19 16:00 98.6 80 17 139/85 (103) 97 05/04/19 15:00 87 18 128/75 (92) 97 05/04/19 14:00 81 17 139/85 (103) 97 05/04/19 13:00 Nasal Cannula 1.0 24 05/04/19 13:00 85 16 155/81 (105) 97 05/04/19 13:00 Nasal Cannula 1.0 24 05/04/19 12:30 85 20 158/83 (108) 97 05/04/19 12:10 90 18 100 Nasal Cannula 1.0 24 85 16 100 05/04/19 12:00 98.6 75 16 156/91 (112) 100 05/04/19 12:00 2.0 05/04/19 12:00 75 05/04/19 12:00 Mechanical Ventilator 2.0 Nasal Cannula 05/04/19 11:00 72 20 143/91 (108) 99 05/04/19 10:30 78 20 155/108 (124) 99 05/04/19 10:00 87 15 155/92 (113) 100 05/04/19 09:38 82 16 100 Bi-Pap 35 05/04/19 09:34 87 16 100 Facial 35 05/04/19 09:30 90 22 140/116 (124) 100 05/04/19 09:00 90 20 140/85 (103) 99 05/04/19 08:57 Venturi Mask 10.0 45 05/04/19 08:30 88 17 154/128 (137) 83 05/04/19 08:00 83 05/04/19 08:00 Mechanical Ventilator 05/04/19 08:00 92 16 145/90 (108) 100 05/04/19 08:00 12.0 45 05/04/19 07:45 12.0 45 05/04/19 07:32 100 05/04/19 07:30 81 16 154/92 (112) 100 05/04/19 07:26 87 24 100 Mechanical Ventilator 40 82 18 40 40 05/04/19 07:00 98.9 83 18 146/92 (110) 98 05/04/19 06:30 79 22 05/04/19 06:00 78 21 141/84 (103) 82 05/04/19 05:30 82 19 149/88 (108) 84 05/04/19 05:15 70 24 40 05/04/19 05:00 23 Mechanical Ventilator 40 05/04/19 05:00 72 21 130/72 (91) 96 05/04/19 04:30 57 21 105/66 (79) 100 05/04/19 04:00 99.0 60 24 101/63 (76) 100 05/04/19 04:00 Mechanical Ventilator 05/04/19 04:00 22 Mechanical Ventilator 40 05/04/19 04:00 40 05/04/19 04:00 56 05/04/19 03:30 58 22 94/60 (71) 100 05/04/19 03:07 60 23 100 Mechanical Ventilator 40 05/04/19 03:00 60 22 100/67 (78) 100 05/04/19 03:00 23 Mechanical Ventilator 40 05/04/19 02:57 61 22 Mechanical Ventilator 40 40 05/04/19 02:30 64 22 96/60 (72) 100 05/04/19 02:00 71 21 112/73 (86) 100 05/04/19 02:00 22 Mechanical Ventilator 40 05/04/19 01:30 79 21 127/71 (89) 100 05/04/19 01:04 68 24 40 05/04/19 01:00 65 22 113/63 (80) 99 05/04/19 01:00 22 Mechanical Ventilator 40 05/04/19 00:30 65 23 103/66 (78) 99 05/04/19 00:00 22 Mechanical Ventilator 40 05/04/19 00:00 Mechanical Ventilator 05/04/19 00:00 98.8 64 23 105/63 (77) 99 05/03/19 23:30 67 22 97/62 (74) 99 05/03/19 23:09 60 22 100 Mechanical Ventilator 40 05/03/19 23:00 60 22 94/59 (71) 100 05/03/19 23:00 22 Mechanical Ventilator 40 05/03/19 22:59 61 22 Mechanical Ventilator 40 40 05/03/19 22:30 62 22 100/59 (73) 99 05/03/19 22:00 23 Mechanical Ventilator 40 05/03/19 22:00 61 23 98/60 (73) 100 05/03/19 21:43 24 40 05/03/19 21:30 64 23 97/59 (72) 99 05/03/19 21:00 60 23 93/58 (70) 99 05/03/19 21:00 24 Mechanical Ventilator 40 05/03/19 20:58 62 22 40 05/03/19 20:33 65 05/03/19 20:30 63 23 92/60 (71) 99 05/03/19 20:00 22 Mechanical Ventilator 40 05/03/19 20:00 Mechanical Ventilator 05/03/19 20:00 99.0 63 22 90/62 (71) 99 05/03/19 20:00 40 05/03/19 19:30 63 22 99/60 (73) 99 05/03/19 19:20 65 22 100 Mechanical Ventilator 40 05/03/19 19:10 65 22 Mechanical Ventilator 40 40 05/03/19 19:00 99.5 66 23 103/66 (78) 100 05/03/19 19:00 22 Mechanical Ventilator 40 05/03/19 18:00 72 22 118/71 (87) 100 05/03/19 18:00 99.5 05/03/19 18:00 22 Mechanical Ventilator 40 05/03/19 17:30 71 24 141/76 (97) 100 05/03/19 17:30 71 24 40 05/03/19 17:00 66 22 128/79 (95) 99 05/03/19 17:00 22 Mechanical Ventilator 40 05/03/19 16:30 66 22 108/72 (84) 98 05/03/19 16:00 40 05/03/19 16:00 22 Mechanical Ventilator 40 05/03/19 16:00 Mechanical Ventilator 05/03/19 16:00 101.2 66 22 107/69 (82) 98 05/03/19 16:00 71 05/03/19 15:30 84 22 113/75 (88) 98 05/03/19 15:20 67 22 98 Mechanical Ventilator 40 69 22 40 05/03/19 15:00 22 Mechanical Ventilator 40 05/03/19 15:00 67 22 103/73 (83) 99 05/03/19 14:30 71 22 111/62 (78) 99 05/03/19 14:00 71 22 136/85 (102) 99 05/03/19 14:00 22 Mechanical Ventilator 40 05/03/19 13:30 69 22 118/76 (90) 100 05/03/19 13:00 71 21 123/81 (95) 100 05/03/19 13:00 22 Mechanical Ventilator 40 05/03/19 12:40 74 23 40 05/03/19 12:30 73 21 112/67 (82) 100 05/03/19 12:00 22 Mechanical Ventilator 40 05/03/19 12:00 78 05/03/19 12:00 99.6 80 20 122/75 (91) 100 05/03/19 12:00 40 05/03/19 12:00 Mechanical Ventilator 05/03/19 11:30 80 17 120/88 (99) 100 05/03/19 11:00 22 Mechanical Ventilator 40 05/03/19 11:00 79 21 144/81 (102) 98 05/03/19 10:56 73 22 100 Mechanical Ventilator 40 76 25 40 05/03/19 10:30 74 21 111/74 (86) 100 05/03/19 10:00 22 Mechanical Ventilator 40 05/03/19 10:00 77 21 99/71 (80) 100 05/03/19 09:30 79 22 103/68 (80) 100 05/03/19 09:00 86 18 122/80 (94) 100 05/03/19 09:00 16 Mechanical Ventilator 40 05/03/19 08:55 86 26 40 05/03/19 08:30 90 18 120/74 (89) 100 05/03/19 08:00 88 05/03/19 08:00 98.1 85 22 131/93 (106) 100 05/03/19 08:00 Mechanical Ventilator 05/03/19 08:00 40 05/03/19 07:30 78 22 90/67 (75) 100 05/03/19 07:16 83 22 100 Mechanical Ventilator 40 82 22 40 05/03/19 07:00 82 21 133/80 (97) 99 05/03/19 07:00 22 Mechanical Ventilator 40 05/03/19 06:00 Mechanical Ventilator 40 05/03/19 06:00 78 21 120/82 (95) 99 05/03/19 05:56 71 22 Intake and Output 05/04/19 05/05/19 19:00 07:00 Intake Total 3225 ml 100 ml Output Total 980 ml 810 ml Balance 2245 ml -710 ml Intake Oral 2400 ml 100 ml IV Total 800 ml Tube Feeding 25 ml Output Urine Total 980 ml 810 ml Labs Test 05/02/19 16:00 05/02/19 16:30 05/02/19 17:53 05/02/19 19:20 White Blood Count 14.6 K/UL (4.8-10.8) Red Blood Count 2.76 M/UL (4.20-5.40) Hemoglobin 8.8 G/DL (12.0-16.0) Hematocrit 28.3 % (37.0-47.0) Mean Corpuscular Volume 102 FL (80-99) Mean Corpuscular Hemoglobin 31.9 PG (27.0-31.0) Mean Corpuscular Hemoglobin Concent 31.1 G/DL (32.0-36.0) Red Cell Distribution Width 14.8 % (11.6-14.8) Platelet Count 191 K/UL (150-450) Mean Platelet Volume 7.8 FL (6.5-10.1) Neutrophils (%) (Auto) 80.2 % (45.0-75.0) Lymphocytes (%) (Auto) 7.6 % (20.0-45.0) Monocytes (%) (Auto) 11.3 % (1.0-10.0) Eosinophils (%) (Auto) 0.3 % (0.0-3.0) Basophils (%) (Auto) 0.6 % (0.0-2.0) Sodium Level 138 MMOL/L (136-145) Potassium Level 4.0 MMOL/L (3.5-5.1) Chloride Level 101 MMOL/L (98-107) Carbon Dioxide Level 18 MMOL/L (21-32) Anion Gap 19 mmol/L (5-15) Blood Urea Nitrogen 124 mg/dL (7-18) Creatinine 5.0 MG/DL (0.55-1.30) Estimat Glomerular Filtration Rate 8.9 mL/min (>60) Glucose Level 109 MG/DL (74-106) Lactic Acid Level 0.70 mmol/L (0.4-2.0) Calcium Level 9.4 MG/DL (8.5-10.1) Total Bilirubin 0.3 MG/DL (0.2-1.0) Aspartate Amino Transf (AST/SGOT) 27 U/L (15-37) Alanine Aminotransferase (ALT/SGPT) 25 U/L (12-78) Alkaline Phosphatase 84 U/L (46-116) Total Creatine Kinase 25 U/L (26-308) Creatine Kinase MB 0.8 NG/ML (0.0-3.6) Creatine Kinase MB Relative Index 3.2 Troponin I 0.000 ng/mL (0.000-0.056) Total Protein 7.6 G/DL (6.4-8.2) Albumin 1.8 G/DL (3.4-5.0) Globulin 5.8 g/dL Albumin/Globulin Ratio 0.3 (1.0-2.7) Triglycerides Level 376 MG/DL (30-150) Urine Color Pale yellow Urine Appearance Turbid Urine pH 5 (4.5-8.0) Urine Specific [place] 1.010 (1.005-1.035) Urine Protein 3+ (NEGATIVE) Urine Glucose (UA) Negative (NEGATIVE) Urine Ketones Negative (NEGATIVE) Urine Blood 4+ (NEGATIVE) Urine Nitrite Positive (NEGATIVE) Urine Bilirubin Negative (NEGATIVE) Urine Urobilinogen Normal MG/DL (0.0-1.0) Urine Leukocyte Esterase 3+ (NEGATIVE) Urine RBC Tntc /HPF (0 - 2) Urine WBC Tntc /HPF (0 - 2) Urine Squamous Epithelial Cells Moderate /LPF (NONE/OCC) Urine Bacteria Many /HPF (NONE) Arterial Blood pH 7.238 (7.350-7.450) Arterial Blood Partial Pressure CO2 45.4 mmHg (35.0-45.0) Arterial Blood Partial Pressure O2 92.4 mmHg (75.0-100.0) Arterial Blood HCO3 18.9 mmol/L (22.0-26.0) Arterial Blood Oxygen Saturation 95.4 % (95-100) Arterial Blood Base Excess -8.1 (-2-2) Miguel Angel Test Positive Test 05/02/19 22:00 05/03/19 04:00 05/04/19 04:30 05/04/19 08:23 Urine Random Sodium 71 mmol/L (20-110) White Blood Count 11.3 K/UL (4.8-10.8) 13.0 K/UL (4.8-10.8) Red Blood Count 2.31 M/UL (4.20-5.40) 2.18 M/UL (4.20-5.40) Hemoglobin 7.4 G/DL (12.0-16.0) 7.1 G/DL (12.0-16.0) Hematocrit 22.2 % (37.0-47.0) 21.0 % (37.0-47.0) Mean Corpuscular Volume 96 FL (80-99) 96 FL (80-99) Mean Corpuscular Hemoglobin 31.9 PG (27.0-31.0) 32.6 PG (27.0-31.0) Mean Corpuscular Hemoglobin Concent 33.3 G/DL (32.0-36.0) 33.9 G/DL (32.0-36.0) Red Cell Distribution Width 14.6 % (11.6-14.8) 14.9 % (11.6-14.8) Platelet Count 255 K/UL (150-450) 277 K/UL (150-450) Mean Platelet Volume 5.7 FL (6.5-10.1) 5.6 FL (6.5-10.1) Neutrophils (%) (Auto) % (45.0-75.0) % (45.0-75.0) Lymphocytes (%) (Auto) % (20.0-45.0) % (20.0-45.0) Monocytes (%) (Auto) % (1.0-10.0) % (1.0-10.0) Eosinophils (%) (Auto) % (0.0-3.0) % (0.0-3.0) Basophils (%) (Auto) % (0.0-2.0) % (0.0-2.0) Differential Total Cells Counted 100 Neutrophils % (Manual) 96 % (45-75) Lymphocytes % (Manual) 2 % (20-45) Monocytes % (Manual) 2 % (1-10) Eosinophils % (Manual) 0 % (0-3) Basophils % (Manual) 0 % (0-2) Band Neutrophils 0 % (0-8) Platelet Estimate Adequate Platelet Morphology Normal Hypochromasia 3+ Anisocytosis 1+ Spherocytes 2+ Arterial Blood pH 7.310 (7.350-7.450) 7.263 (7.350-7.450) Arterial Blood Partial Pressure CO2 37.6 mmHg (35.0-45.0) 41.4 mmHg (35.0-45.0) Arterial Blood Partial Pressure O2 123.1 mmHg (75.0-100.0) 83.2 mmHg (75.0-100.0) Arterial Blood HCO3 18.5 mmol/L (22.0-26.0) 18.3 mmol/L (22.0-26.0) Arterial Blood Oxygen Saturation 97.9 % (95-100) 94.8 % (95-100) Arterial Blood Base Excess -7.1 (-2-2) -8.2 (-2-2) Miguel Angel Test Positive Positive Sodium Level 138 MMOL/L (136-145) 146 MMOL/L (136-145) Potassium Level 3.8 MMOL/L (3.5-5.1) 3.6 MMOL/L (3.5-5.1) Chloride Level 103 MMOL/L (98-107) 115 MMOL/L (98-107) Carbon Dioxide Level 19 MMOL/L (21-32) 19 MMOL/L (21-32) Anion Gap 16 mmol/L (5-15) 12 mmol/L (5-15) Blood Urea Nitrogen 112 mg/dL (7-18) 102 mg/dL (7-18) Creatinine 4.4 MG/DL (0.55-1.30) 3.6 MG/DL (0.55-1.30) Estimat Glomerular Filtration Rate 10.3 mL/min (>60) 13.1 mL/min (>60) Glucose Level 214 MG/DL (74-106) 201 MG/DL (74-106) Hemoglobin A1c 5.3 % (4.3-6.0) Lactic Acid Level 0.50 mmol/L (0.4-2.0) 1.00 mmol/L (0.4-2.0) Calcium Level 9.2 MG/DL (8.5-10.1) 9.0 MG/DL (8.5-10.1) Phosphorus Level 6.1 MG/DL (2.5-4.9) 5.1 MG/DL (2.5-4.9) Magnesium Level 2.3 MG/DL (1.8-2.4) 2.1 MG/DL (1.8-2.4) Iron Level 71 ug/dL (50-175) Total Iron Binding Capacity 102 ug/dL (250-450) Percent Iron Saturation 70 % (15-50) Unsaturated Iron Binding 31 ug/dL (112-346) Ferritin 1551 NG/ML (8-388) Total Bilirubin 0.3 MG/DL (0.2-1.0) 0.2 MG/DL (0.2-1.0) Gamma Glutamyl Transpeptidase 29 U/L (5-85) Aspartate Amino Transf (AST/SGOT) 21 U/L (15-37) 26 U/L (15-37) Alanine Aminotransferase (ALT/SGPT) 25 U/L (12-78) 26 U/L (12-78) Alkaline Phosphatase 71 U/L (46-116) 64 U/L (46-116) Ammonia 27 umol/L (11-32) Total Creatine Kinase 38 U/L (26-308) Troponin I 0.000 ng/mL (0.000-0.056) C-Reactive Protein, Quantitative 21.5 mg/dL (0.00-0.90) 15.7 mg/dL (0.00-0.90) Total Protein 8.0 G/DL (6.4-8.2) 7.3 G/DL (6.4-8.2) Albumin 2.1 G/DL (3.4-5.0) 1.9 G/DL (3.4-5.0) Globulin 5.9 g/dL 5.4 g/dL Albumin/Globulin Ratio 0.4 (1.0-2.7) 0.4 (1.0-2.7) Triglycerides Level 372 MG/DL (30-150) Cholesterol Level 169 MG/DL (< 200) LDL Cholesterol 63 mg/dL (<100) HDL Cholesterol 10 MG/DL (40-60) Cholesterol/HDL Ratio 16.9 (3.3-4.4) Lipase 66 U/L (73-393) Vitamin B12 Level 1037 PG/ML (193-986) Folate 11.9 NG/ML (8.6-58.9) Thyroid Stimulating Hormone (TSH) 0.989 uiU/mL (0.358-3.740) Uric Acid 13.0 MG/DL (2.6-7.2) Pro-B-Type Natriuretic Peptide 1456 pg/mL (0-125) Test 05/04/19 10:41 05/05/19 04:00 Arterial Blood pH 7.278 (7.350-7.450) Arterial Blood Partial Pressure CO2 40.1 mmHg (35.0-45.0) Arterial Blood Partial Pressure O2 107.6 mmHg (75.0-100.0) Arterial Blood HCO3 18.3 mmol/L (22.0-26.0) Arterial Blood Oxygen Saturation 97.6 % (95-100) Arterial Blood Base Excess -7.8 (-2-2) Miguel Angel Test Positive Height (Feet): 5 Height (Inches): 3.00 Weight (Pounds): 186 Objective PE Vital Signs Gen: unresponsive Pulm:++self-extubated CV: RRR, no mgr Abd: soft, nt, d Ext: no cce, s/p bka lle Labs: noted Colby Canada MD May 05, 2019 05:56
[2019-05-05] MEDS: NovoLOG Insulin Flexpen SUBQ SCH ×4 (06:00→17:54)
--- NOTE | 2019-05-05 06:00 | NUR ---
NURSE NOTES: Had xi formed stool. Cleaned up pt. Pouch on the RT side came out. Replaced for a new one.
[2019-05-05] MEDS: Solu-MEDROL 125mg Inj IVP SCH ×2 (06:13→13:49)
--- NOTE | 2019-05-05 06:30 | NUR ---
NURSE NOTES: Resting well with vss. No resp. distress noted.
--- NOTE | 2019-05-05 07:32 | NUR ---
HAND-OFF: Report given to Marjan Shanks RN.
--- NOTE | 2019-05-05 07:33 | NUR ---
NURSE NOTES: Received patient from GUZMAN Mata. Patient sleeping at this time. Patient reported to be alert to name, time, place, but not purpose. Patient able to say who the president is and what year it is. Patient showing SR on the cardiac catheterization technologist. Patient on 2L NC at this time with SpO2 100% and RR 20 with no sign of acute distress. Patient on nectar thick liquid with video swallow study due today. Will follow up. Patient has left nephrostomy tube that is patent and draining straw yellow urine and right urostomy bag over where the right nephrostomy tube used to be. Urine on the right side draining well and straw yellow in color. Patient has sacral stage 3 pressure ulcer that is asymptomatic and covered at this time. Patient has left below knee amputation. suture site dry and scabbed. Patient has right internal jugular central line that is patent, asymptomatic, and saline locked at this time. Patient magnesium level is 1.4 this morning[address] Will ensure Dr Hatch is aware when he rounds on the patient. Repositioning done at this time. Oral care offered. Will continue to monitor.
--- NOTE | 2019-05-05 09:04 | NUR ---
RADIOLOGY DEPT., CHEST X-RAY DONE.-P.DYE
--- NOTE | 2019-05-05 09:31 | Nephrology Progress Note ---
Assessment/Plan Problem List: (1) Renal failure Assessment: acute on chronic (2) Dehydration (3) Respiratory failure Assessment: self extubated (4) Anemia (5) Hydronephrosis Assessment: nephrostomies Assessment Acute on Chronic Renal Failure + Severe dehydration- IMPROVING h/o ? kidney mass h/o hydronephrosis - has Nephrostomie Anemia Ventilator Dependent Respiratory failure pulmonary infiltrate / Urinary tract infection h/o ESBL UTI from snf Seizure disorder on Clonazepam and Gabapentin Schizophrenia Hypertension, presented with low BP Obesity Plan Self extubated Hydrate pulmonary support add Bicitra Transfuse as needed monitor renal parameters Urology eval avoid nephrotoxics per consultants Moderate right hydronephrosis. This is apparently new at least since the last exam from 07/12/2018. More recent exam had shown placement of a ureteral stent on the right which we're told was removed. Consider noncontrast CT for further evaluation. Left ureteral stent the partially visualized. No hydronephrosis in the left kidney. Subjective ROS Limited/Unobtainable: No Constitutional: Reports: malaise, weakness Objective Objective Last 24 Hour Vital Signs Date Time Temp Pulse Resp B/P (MAP) Pulse Ox O2 Delivery O2 Flow Rate FiO2 05/05/19 09:00 79 19 124/75 (91) 96 05/05/19 08:00 78 28 116/68 (84) 96 05/05/19 07:17 Nasal Cannula 1.0 24 05/05/19 07:17 Nasal Cannula 1.0 24 05/05/19 07:17 73 16 99 Nasal Cannula 1.0 24 77 16 96 05/05/19 07:00 76 17 117/72 (87) 94 05/05/19 06:00 87 34 100/77 (85) 90 05/05/19 05:00 91 17 107/55 (72) 95 05/05/19 04:00 98.8 76 20 122/78 (93) 96 05/05/19 04:00 81 05/05/19 04:00 Mechanical Ventilator 2.0 Nasal Cannula 05/05/19 03:42 Nasal Cannula 1.0 24 05/05/19 03:42 Nasal Cannula 1.0 24 05/05/19 03:34 76 16 100 Nasal Cannula 1.0 24 73 14 100 05/05/19 03:00 83 24 152/93 (112) 98 05/05/19 02:00 76 16 143/103 (116) 97 05/05/19 01:00 72 16 114/71 (85) 97 05/05/19 00:00 82 05/05/19 00:00 98.4 72 14 111/68 (82) 97 05/05/19 00:00 Mechanical Ventilator 2.0 Nasal Cannula 05/04/19 23:49 Nasal Cannula 1.0 24 05/04/19 23:49 Nasal Cannula 1.0 24 05/04/19 23:11 70 15 100 Nasal Cannula 1.0 24 71 14 98 05/04/19 23:00 68 14 106/73 (84) 99 05/04/19 22:00 76 15 106/62 (77) 99 05/04/19 21:00 78 15 129/74 (92) 99 05/04/19 20:00 98.8 91 17 111/66 (81) 99 05/04/19 20:00 78 17 130/77 (94) 97 05/04/19 20:00 Mechanical Ventilator 2.0 Nasal Cannula 05/04/19 19:43 104 21 100 Nasal Cannula 1.0 24 05/04/19 19:40 99 19 100 Nasal Cannula 1.0 24 05/04/19 19:37 79 17 100 Nasal Cannula 1.0 24 77 15 98 05/04/19 19:30 80 17 141/88 (105) 98 05/04/19 19:00 79 19 137/84 (101) 99 05/04/19 18:00 81 18 133/90 (104) 99 05/04/19 17:00 89 18 102/47 (65) 97 05/04/19 16:00 2.0 05/04/19 16:00 Mechanical Ventilator 2.0 Nasal Cannula 05/04/19 16:00 92 05/04/19 16:00 98.6 80 17 139/85 (103) 97 05/04/19 15:00 87 18 128/75 (92) 97 05/04/19 14:00 81 17 139/85 (103) 97 05/04/19 13:00 Nasal Cannula 1.0 24 05/04/19 13:00 85 16 155/81 (105) 97 05/04/19 13:00 Nasal Cannula 1.0 24 05/04/19 12:30 85 20 158/83 (108) 97 05/04/19 12:10 90 18 100 Nasal Cannula 1.0 24 85 16 100 05/04/19 12:00 98.6 75 16 156/91 (112) 100 05/04/19 12:00 2.0 05/04/19 12:00 75 05/04/19 12:00 Mechanical Ventilator 2.0 Nasal Cannula 05/04/19 11:00 72 20 143/91 (108) 99 05/04/19 10:30 78 20 155/108 (124) 99 05/04/19 10:00 87 15 155/92 (113) 100 05/04/19 09:38 82 16 100 Bi-Pap 35 05/04/19 09:34 87 16 100 Facial 35 05/04/19 09:30 90 22 140/116 (124) 100 Intake and Output 05/04/19 05/05/19 19:00 07:00 Intake Total 3225 ml 730 ml Output Total 980 ml 1470 ml Balance 2245 ml -740 ml Intake Oral 2400 ml 730 ml IV Total 800 ml Tube Feeding 25 ml Output Urine Total 980 ml 1470 ml # Bowel Movements 2 Laboratory Tests 05/04/19 10:41: Arterial Blood pH 7.278L, Arterial Blood Partial Pressure CO2 40.1, Arterial Blood Partial Pressure O2 107.6H, Arterial Blood HCO3 18.3L, Arterial Blood Oxygen Saturation 97.6, Arterial Blood Base Excess -7.8L, Miguel Angel Test Positive 05/05/19 04:00: White Blood Count 15.6H, Red Blood Count 2.63L, Hemoglobin 8.7L, Hematocrit 25.0L, Mean Corpuscular Volume 95, Mean Corpuscular Hemoglobin 33.0H, Mean Corpuscular Hemoglobin Concent 34.8, Red Cell Distribution Width 14.3, Platelet Count 338, Mean Platelet Volume 4.8L, Neutrophils (%) (Auto) 84.5H, Lymphocytes (%) (Auto) 5.8L, Monocytes (%) (Auto) 6.8, Eosinophils (%) (Auto) 2.4, Basophils (%) (Auto) 0.6, Sodium Level 144, Potassium Level 3.6, Chloride Level 109H, Carbon Dioxide Level 23, Anion Gap 12, Blood Urea Nitrogen 82H, Creatinine 2.6H, Estimat Glomerular Filtration Rate 19.0, Glucose Level 128H, Uric Acid 9.6H, Calcium Level 8.9, Phosphorus Level 4.0, Magnesium Level 1.4L, Total Bilirubin 0.3, Aspartate Amino Transf (AST/SGOT) 20, Alanine Aminotransferase (ALT/SGPT) 24, Alkaline Phosphatase 63, Troponin I 0.000, Total Protein 7.3, Albumin 1.9L, Globulin 5.4, Albumin/Globulin Ratio 0.4L Height (Feet): 5 Height (Inches): 3.00 Weight (Pounds): 190 General Appearance: no apparent distress Cardiovascular: normal rate Respiratory/Chest: decreased breath sounds Abdomen: soft, distended Genitourinary/Rectal: other - Nephrostomy tube left- Bag Right Derrell Hatch MD May 05, 2019 09:31
[2019-05-05] MEDS: Gabapentin 300 MG/6 ML Soln NG SCH ×3 (09:50→18:12)
[2019-05-05] MEDS: Lacosamide 50mg tablet ORAL SCH (09:50)
[2019-05-05] MEDS: Meropenem 500 MG in NS 55 ML IVPB SCH ×2 (09:51→21:20)
[2019-05-05] MEDS: levETIRAcetam 500mg/5ml Liquid NG SCH ×2 (09:51→21:16)
[2019-05-05] MEDS: Doxycycline Hyclate 100 MG in D5W 110 ML IV SCH (09:52)
[2019-05-05] MEDS: Heparin 5000 units/ml inj SUBQ SCH ×2 (09:55→21:21)
[2019-05-05] MEDS ORDERED: Varibar Nectar 240ml MC PRN ×2 (10:00→18:00)
[2019-05-05] MEDS ORDERED: Varibar Honey 250ml MC PRN ×2 (10:00→18:00)
[2019-05-05] MEDS ORDERED: Varibar Pudding 230ml MC PRN ×2 (10:00→18:00)
--- NOTE | 2019-05-05 11:00 | NUR ---
NURSE NOTES: Patient taken down with RN to video swallow study. Will continue to monitor. No sign of acute distress. Vital signs stable.
--- NOTE | 2019-05-05 12:00 | NUR ---
NURSE NOTES: Patient awake and alert to name, time, place but not purpose. Mentation remains the same. Patient showing SR on the bottom crane operator. Patient remains on 2L NC at this time with SpO2 98% and RR 20 with no sign of acute distress. Patient failed video swallow and remains on nectar this liquid teaspoon only. Left nephrostomy tube remains patent and draining straw yellow urine and right urostomy bag leaking at this time. Right urostomy bag changed at this time with wound care nurse. Will continue to monitor. Sacral wound dressing changed at this time with wound care nurse. Bed bath performed. Right internal jugular central line leaking and appears pulled out slightly. Stat chest x-ray ordered to verify placement. Will follow up. Repositioning done at this time. Will continue to monitor.
--- NOTE | 2019-05-05 12:21 | NUR ---
ST NOTES: MODIFIED BARIUM SWALLOW STUDY COMPLETED, SEE FULL REPORT TO FOLLOW. 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 ASPIRATION WITH THIN LIQUIDS HIGH ASPIRATION RISK WITH NECTAR THICK AND HONEY THICK LIQUIDS BUT SAFEST AT TSP LEVEL PROBLEMS DUE MOSTLY TO DELAYED SWALLOW AND LATE AND INCOMPLETE CLOSURE OF LARYNGEAL VESTIBULE. OTHER COMPONENTS AND RISK DUE TO OROPHARYNGEAL DYSMOTILITY. POOR ABILITY TO USE COMPENSATORY SWALLOW STRATEGIES ESOPHAGEAL PHASE LIMITED VIEW IN LATERAL BUT GROSSLY FUNCTIONAL RECOMMEND CONTINUE WITH CURRENT [facility] SOFT GROUND DIET AND NECTAR THICK LIQUIDS (TSP ONLY) WITH UPDATED AND POSTED ASPIRATION PRECAUTIONS. OK TO HAVE FREE WATER (NOT THICKENED) TSP ONLY AND WITH STAFF ADMINISTRATION ONLY PATIENT WILL NOT COMPLY WITH ASPIRATION PRECAUTIONS. D/W GUZMAN MOSQUERA AND PATIENT Addendum: 05/05/19 at 1355 by MAREK SEO TEACHER VISUALLY IMPAIRED UPDATED MBSS SUMMARY: MODIFIED BARIUM SWALLOW STUDY COMPLETED, SEE FULL REPORT TO FOLLOW. GIVEN: THIN LIQUIDS (TSP, TSP (NOT RECORDED PATIENT MOVED), CUP TOOK SEQUENTIAL (INSTEAD OF ONE SIP), STRAW SIPS SEQUENTIAL (INSTEAD OF ONE SIP), THEN STRAW TEACHER VISUALLY IMPAIRED REMOVED STRAW FROM LIPS NECTAR THICK LIQUIDS (TSP, CUP (GIVEN BY TEACHER VISUALLY IMPAIRED), STRAW TOOK SEQUENTIAL SIPS; HONEY THICK LIQUIDS TSP AND PUDDING TSP (MASTICATED SOLID - REFUSED AND NO TEETH/DENTITION). 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 RESP RATE RISKS DUE TO COPD AND IF RESP RATE GOES ABOVE 25 BPM. THIN LIQUIDS FIRST TSP - NO ASPIRATION NOR LARYNGEAL PENETRATION (LP) 2ND TSP - NOT SEEN WELL PT MOVED CUP SEQUENTIAL AND SOME ONE SIPS - SILENT ASPIRATION TRACE BEFORE THE SWALLOW DUE TO DELAYED SWALLOW (DS) AND LATE/INCOMPLETE LARYNGEAL VESTIBULE CLOSURE (LVC). STRAW SEQUENTIAL (2 SIPS) SILENT DEEP LP TO VOCAL FOLDS NOT EJECTED DUE TO DX AND LATE LVC. NECTAR THICK LIQUIDS TSP - NO ASP/LP (? SOME RESIDUE FROM PRIOR SWALLOW) CUP - TRACE SILENT ASP CONTACTS VOCAL FOLDS WITH EJECTION STRAW SEQUENTIAL (2 SIPS) SILENT TRACE ASPIRATION HONEY TSP FIRST SWALLOW TRACE LP (ABOVE VC EJECTED) AND TRACE DEEPER LP ON 2ND SWALLOW (TO CLEAR ORAL MORE THAN PHARYNGEAL RESIDUE) TO VOCAL FOLDS NOT EJECTED. PUREED TSP NO ASP/LP (RISK WITH 2ND SWALLOW TO CLEAR ORAL RESIDUE DUE TO DYSMOTILITY). ASP/LP DUE MOSTLY TO DELAYED SWALLOW AND LATE AND INCOMPLETE CLOSURE OF LARYNGEAL VESTIBULE. RISK ALSO DUE TO OROPHARYNGEAL DYSMOTILITY. Oral Impairment Tongue Control (poor compliance for bolus hold) Bolus trasport/lingual motion Oral residue Init. pharyngeal swallow Pharyngeal Impairment Soft palate elevation (grossly functional) Laryngeal elevation (LE) Ant. hyoid excursion Late and incomplete laryngeal vestibule closure Pharyngeal stripping wave Tongue base retraction Pharyngeal residue Decreased pharyngeal sensation ESOPHAGEAL PHASE LIMITED VIEW IN LATERAL BUT GROSSLY FUNCTIONAL TRIAL TX: BENEFITS FROM MORE TIME, SECOND SWALLOW (SOME CUED). POOR FOLLOWING COMMANDS FOR ONE SMALL SIP AT A TIME (STRAW OR CUP), CHIN TUCK (EVEN WITH MAX CUES)TAKES LARGE SIPS AND COMPLETES SEQUENTIAL SIPS. WOULD NOT HOLD BOLUS TO COMMAND. WOULD NOT DO EFFORTFUL BREATH HOLD EITHER. VITALS STABLE 14 TO 20/22 BPM AND GOOD SP02 98% ON 1-2 LITERS 02 NC. RECOMMEND CONTINUE WITH CURRENT [facility] SOFT GROUND DIET AND NECTAR THICK LIQUIDS (TSP ONLY) WITH UPDATED AND POSTED ASPIRATION PRECAUTIONS. PATIENT C/O XEROSTOMIA AND OK TO HAVE FREE WATER (NOT THICKENED) TSP ONLY AND WITH STAFF ADMINISTRATION ONLY PATIENT WILL NOT COMPLY WITH ASPIRATION PRECAUTIONS. D/W GUZMAN MOSQUERA AND PATIENT
--- NOTE | 2019-05-05 13:12 | Infectious Diseases Prog Note ---
Assessment/Plan Assessment/Plan IMPRESSION: E. coli sepsis E. coli ESBL UTI, E. coli pneumonia, Acute respiratory failure COPD, anemia, acute renal failure, chronic kidney disease, Right hydronephrosis, Sacral ulcer. RECOMMENDATION: We will follow up the cultures. Discontinue IV doxycycline. Continue Meropenem Subjective ROS Limited/Unobtainable: No Constitutional: Reports: no symptoms Respiratory: Reports: no symptoms, other - off of BIPAP Gastrointestinal/Abdominal: Reports: no symptoms Genitourinary: Reports: no symptoms Musculoskeletal: Reports: pain Allergies: Coded Allergies: Grits (Unverified Allergy, Unknown, 07/06/17) [place] (Unverified Allergy, Unknown, 07/06/17) Objective Vital Signs Last 24 Hour Vital Signs Date Time Temp Pulse Resp B/P (MAP) Pulse Ox O2 Delivery O2 Flow Rate FiO2 05/05/19 11:10 Nasal Cannula 1.0 24 05/05/19 11:10 Nasal Cannula 1.0 24 05/05/19 09:00 79 19 124/75 (91) 96 05/05/19 08:00 Nasal Cannula 2.0 Nasal Cannula 2.0 05/05/19 08:00 78 28 116/68 (84) 96 05/05/19 07:17 Nasal Cannula 1.0 24 05/05/19 07:17 Nasal Cannula 1.0 24 05/05/19 07:17 73 16 99 Nasal Cannula 1.0 24 77 16 96 05/05/19 07:00 76 17 117/72 (87) 94 05/05/19 06:00 87 34 100/77 (85) 90 05/05/19 05:00 91 17 107/55 (72) 95 05/05/19 04:00 98.8 76 20 122/78 (93) 96 05/05/19 04:00 81 05/05/19 04:00 Mechanical Ventilator 2.0 Nasal Cannula 05/05/19 03:42 Nasal Cannula 1.0 24 05/05/19 03:42 Nasal Cannula 1.0 24 05/05/19 03:34 76 16 100 Nasal Cannula 1.0 24 73 14 100 05/05/19 03:00 83 24 152/93 (112) 98 05/05/19 02:00 76 16 143/103 (116) 97 05/05/19 01:00 72 16 114/71 (85) 97 05/05/19 00:00 82 05/05/19 00:00 98.4 72 14 111/68 (82) 97 05/05/19 00:00 Mechanical Ventilator 2.0 Nasal Cannula 05/04/19 23:49 Nasal Cannula 1.0 24 05/04/19 23:49 Nasal Cannula 1.0 24 05/04/19 23:11 70 15 100 Nasal Cannula 1.0 24 71 14 98 05/04/19 23:00 68 14 106/73 (84) 99 05/04/19 22:00 76 15 106/62 (77) 99 05/04/19 21:00 78 15 129/74 (92) 99 05/04/19 20:00 98.8 91 17 111/66 (81) 99 05/04/19 20:00 78 17 130/77 (94) 97 05/04/19 20:00 Mechanical Ventilator 2.0 Nasal Cannula 05/04/19 19:43 104 21 100 Nasal Cannula 1.0 24 05/04/19 19:40 99 19 100 Nasal Cannula 1.0 24 05/04/19 19:37 79 17 100 Nasal Cannula 1.0 24 77 15 98 05/04/19 19:30 80 17 141/88 (105) 98 05/04/19 19:00 79 19 137/84 (101) 99 05/04/19 18:00 81 18 133/90 (104) 99 05/04/19 17:00 89 18 102/47 (65) 97 05/04/19 16:00 2.0 05/04/19 16:00 Mechanical Ventilator 2.0 Nasal Cannula 05/04/19 16:00 92 05/04/19 16:00 98.6 80 17 139/85 (103) 97 05/04/19 15:00 87 18 128/75 (92) 97 05/04/19 14:00 81 17 139/85 (103) 97 Height (Feet): 5 Height (Inches): 3.00 Weight (Pounds): 190 General Appearance: no acute distress HEENT: mucous membranes moist Respiratory/Chest: lungs clear, other - oxygen by nasal cannula Cardiovascular: normal rate, other - RIJ central line leaking Abdomen: soft, non tender Extremities: no edema, other - left BKA Neurologic/Psychiatric: alert, responsive Microbiology Date/Time Source Procedure Growth Status 05/02/19 16:00 Blood Blood Culture - Preliminary NO GROWTH AFTER 48 HOURS Resulted 05/02/19 15:40 Blood Blood Culture - Final Escherichia Coli - Esbl Complete 05/03/19 13:25 Nasal Nares - Final Complete 05/03/19 13:25 Nasal Nares - Final Complete 05/03/19 13:25 Sputum Gram Stain - Final Complete 05/03/19 13:25 Sputum Culture - Final Escherichia Coli - Esbl Complete 05/02/19 16:37 Nasal Nares MRSA Culture - Final NO METHICILLIN RESISTANT STAPH AUREUS... Complete 05/02/19 17:53 Urine,Clean Catch Urine Culture - Final Escherichia Coli - Esbl Complete 05/02/19 16:37 Rectum - Final NO CARBAPENEM-RESISTANT ENTEROBACTERI... Complete 05/02/19 16:37 Rectum VRE Culture - Final Enterococcus Faecalis - Vre Complete Laboratory Tests Test 05/05/19 04:00 White Blood Count 15.6 K/UL (4.8-10.8) H Red Blood Count 2.63 M/UL (4.20-5.40) L Hemoglobin 8.7 G/DL (12.0-16.0) L Hematocrit 25.0 % (37.0-47.0) L Mean Corpuscular Volume 95 FL (80-99) Mean Corpuscular Hemoglobin 33.0 PG (27.0-31.0) H Mean Corpuscular Hemoglobin Concent 34.8 G/DL (32.0-36.0) Red Cell Distribution Width 14.3 % (11.6-14.8) Platelet Count 338 K/UL (150-450) Mean Platelet Volume 4.8 FL (6.5-10.1) L Neutrophils (%) (Auto) 84.5 % (45.0-75.0) H Lymphocytes (%) (Auto) 5.8 % (20.0-45.0) L Monocytes (%) (Auto) 6.8 % (1.0-10.0) Eosinophils (%) (Auto) 2.4 % (0.0-3.0) Basophils (%) (Auto) 0.6 % (0.0-2.0) Sodium Level 144 MMOL/L (136-145) Potassium Level 3.6 MMOL/L (3.5-5.1) Chloride Level 109 MMOL/L (98-107) H Carbon Dioxide Level 23 MMOL/L (21-32) Anion Gap 12 mmol/L (5-15) Blood Urea Nitrogen 82 mg/dL (7-18) H Creatinine 2.6 MG/DL (0.55-1.30) H Estimat Glomerular Filtration Rate 19.0 mL/min (>60) Glucose Level 128 MG/DL (74-106) H Uric Acid 9.6 MG/DL (2.6-7.2) H Calcium Level 8.9 MG/DL (8.5-10.1) Phosphorus Level 4.0 MG/DL (2.5-4.9) Magnesium Level 1.4 MG/DL (1.8-2.4) L Total Bilirubin 0.3 MG/DL (0.2-1.0) Aspartate Amino Transf (AST/SGOT) 20 U/L (15-37) Alanine Aminotransferase (ALT/SGPT) 24 U/L (12-78) Alkaline Phosphatase 63 U/L (46-116) Troponin I 0.000 ng/mL (0.000-0.056) Total Protein 7.3 G/DL (6.4-8.2) Albumin 1.9 G/DL (3.4-5.0) L Globulin 5.4 g/dL Albumin/Globulin Ratio 0.4 (1.0-2.7) L Current Medications Medications (Trade) Dose Ordered Sig/William Route PRN Reason Start Time Stop Time Status Last Admin Dose Admin Acetaminophen (Tylenol) 650 mg Q6H PRN NG Mild Pain/Temp > 100.5 05/02/19 20:45 06/01/19 20:44 05/03/19 17:30 Albuterol/ Ipratropium (Albuterol/ Ipratropium) 3 ml Q4H PRN HHN Shortness of Breath 05/02/19 20:45 05/07/19 20:44 Albuterol/ Ipratropium (Albuterol/ Ipratropium) 3 ml Q4HRT HHN 05/02/19 23:00 05/07/19 22:59 05/05/19 07:16 Allopurinol (allopurinoL) 300 mg DAILY NG 05/05/19 09:00 06/04/19 08:59 05/05/19 09:51 Barium Sulfate (Varibar Honey) 250 ml NOW PRN MC RAD 05/05/19 10:00 05/08/19 09:58 Barium Sulfate (Varibar Albright) 240 ml NOW PRN MC RAD 05/05/19 10:00 05/08/19 09:58 Barium Sulfate (Varibar Pudding) 230 ml NOW PRN MC RAD 05/05/19 10:00 05/08/19 09:58 Chlorhexidine Gluconate (Genevieve-Hex 2%) 1 applic DAILY@2000 TOPIC 05/03/19 20:00 06/02/19 19:59 05/04/19 19:53 Dextrose (Dextrose 50%) 25 ml Q30M PRN IV Hypoglycemia 05/02/19 20:45 06/01/19 20:44 Dextrose (Dextrose 50%) 50 ml Q30M PRN IV Hypoglycemia 05/02/19 20:45 06/01/19 20:44 Doxycycline Hyclate 100 mg/ Dextrose 110 ml @ 110 mls/hr Q12HR IV 05/02/19 21:00 05/09/19 20:59 05/05/19 09:52 Gabapentin (Neurontin) 200 mg THREE TIMES A DAY NG 05/03/19 18:00 06/02/19 17:59 05/05/19 09:50 Heparin Sodium (Porcine) (Heparin 5000 units/ml) 5,000 units EVERY 12 HOURS SUBQ 05/02/19 21:00 06/01/19 20:59 05/05/19 09:55 Insulin Aspart (NovoLOG) Q6HR SUBQ 05/03/19 00:00 06/02/19 00:00 05/04/19 18:35 Lacosamide (Vimpat) 100 mg DAILY ORAL 05/04/19 09:00 06/03/19 08:59 05/05/19 09:50 Levetiracetam (Keppra) 250 mg Q12HR NG 05/03/19 21:00 06/02/19 20:59 05/05/19 09:51 Lorazepam (Ativan 2mg/ml 1ml) 0.5 mg Q2H PRN IV Agitation 05/02/19 20:45 05/09/19 20:44 05/05/19 02:20 Meropenem 500 mg/ Sodium Chloride 55 ml @ 110 mls/hr EVERY 12 HOURS IVPB 05/04/19 12:00 05/09/19 11:59 05/05/19 09:51 Methylprednisolone Sodium Succinate (Solu-MEDROL) 60 mg EVERY 8 HOURS IVP 05/02/19 22:00 06/01/19 21:59 05/05/19 06:13 Norepinephrine Bitartrate 4 mg/ Dextrose 250 ml @ 0 mls/hr Q24H PRN IV For hypotension 05/02/19 21:27 06/01/19 21:26 Olanzapine (ZyPREXA) 5 mg BEDTIME ORAL 05/05/19 21:00 06/04/19 20:59 Pantoprazole (Protonix) 40 mg EVERY 12 HOURS ORAL 05/05/19 21:00 06/04/19 20:59 Sodium Chloride 1,000 ml @ 75 mls/hr [id number] IV 05/05/19 09:45 06/04/19 09:44 05/05/19 09:56 Sodium Citrate (Bicitra) 30 ml BID ORAL 05/05/19 18:00 06/03/19 09:44 Jose Solis MD May 05, 2019 13:12
[2019-05-05] MEDS ORDERED: Lidocaine 1% Plain 30 ml INJ PRN ×2 (13:15→17:45)
[2019-05-05] MEDS ORDERED: Heparin1,000 units/500ml Premix(Conc:2 units/ml) IV PRN ×2 (13:15→17:45)
--- NOTE | 2019-05-05 13:16 | NUR ---
RADIOLOGY DEPT., CHEST X-RAY FOR RIGHT I.J. REPOSITIONING COMPLETED.-P.DYE
--- NOTE | 2019-05-05 13:39 | Diagnostic Imaging Report ---
Indication: Repositioned right IJ Comparison: 05/02/2019 A single view chest radiograph was obtained. Findings: Right jugular central venous catheter is noted. The tip of the catheter is above the right clavicle head. If the catheter is intravascular the tip is high. There is no pneumothorax. There is evidence of the platelike atelectasis at the right lung base. Lung volumes are low bilaterally. Cardiomegaly again noted. Patient has been extubated in the interval. IMPRESSION: Malpositioned right internal jugular catheter with the tip above the clavicle head. Right basal atelectasis.
--- NOTE | 2019-05-05 13:51 | NUR ---
NURSE NOTES: Called Dr Smith and obtained order for PICC line as patient's right IJ central line is malpositioned and leaking at this time. Chest x-ray was taken to confirm malposition. Peripheral IV insertion attempted multiple times by multiple nurses with no success. Also received order for transfer to [facility]. Orders read back, verified, and placed. Addendum: 05/05/19 at 1504 by Marjan Shanks RN Chest x-ray confirms IJ TLC malposition. All IV medications held until PICC line placed.
--- NOTE | 2019-05-05 15:55 | Surgery Progress Note ---
Surgery Progress Note Subjective Additional Comments leukocytosis anemia malpositioned line line removed clinically looks okay talking comfortable wants water Objective Last 24 Hour Vital Signs Date Time Temp Pulse Resp B/P (MAP) Pulse Ox O2 Delivery O2 Flow Rate FiO2 05/05/19 15:45 88 20 99 Nasal Cannula 1.0 24 83 22 97 05/05/19 15:44 85 20 99 Nasal Cannula 1.0 24 05/05/19 15:44 89 22 100 Nasal Cannula 1.0 24 05/05/19 15:00 79 19 131/84 (100) 97 05/05/19 14:00 86 19 127/85 (99) 91 05/05/19 13:00 85 23 115/60 (78) 96 05/05/19 12:00 98.3 85 23 115/60 (78) 96 05/05/19 12:00 79 05/05/19 11:10 Nasal Cannula 1.0 24 05/05/19 11:10 Nasal Cannula 1.0 24 05/05/19 11:00 88 123/77 (92) 05/05/19 10:00 89 24 149/97 (114) 95 05/05/19 09:00 79 19 124/75 (91) 96 05/05/19 08:00 Nasal Cannula 2.0 Nasal Cannula 2.0 05/05/19 08:00 78 28 116/68 (84) 96 05/05/19 08:00 98.4 05/05/19 08:00 79 05/05/19 07:17 Nasal Cannula 1.0 24 05/05/19 07:17 Nasal Cannula 1.0 24 05/05/19 07:17 73 16 99 Nasal Cannula 1.0 24 77 16 96 05/05/19 07:00 76 17 117/72 (87) 94 05/05/19 06:00 87 34 100/77 (85) 90 05/05/19 05:00 91 17 107/55 (72) 95 05/05/19 04:00 98.8 76 20 122/78 (93) 96 05/05/19 04:00 81 05/05/19 04:00 Mechanical Ventilator 2.0 Nasal Cannula 05/05/19 03:42 Nasal Cannula 1.0 24 05/05/19 03:42 Nasal Cannula 1.0 24 05/05/19 03:34 76 16 100 Nasal Cannula 1.0 24 73 14 100 05/05/19 03:00 83 24 152/93 (112) 98 05/05/19 02:00 76 16 143/103 (116) 97 05/05/19 01:00 72 16 114/71 (85) 97 05/05/19 00:00 82 05/05/19 00:00 98.4 72 14 111/68 (82) 97 05/05/19 00:00 Mechanical Ventilator 2.0 Nasal Cannula 05/04/19 23:49 Nasal Cannula 1.0 24 05/04/19 23:49 Nasal Cannula 1.0 24 05/04/19 23:11 70 15 100 Nasal Cannula 1.0 24 71 14 98 05/04/19 23:00 68 14 106/73 (84) 99 05/04/19 22:00 76 15 106/62 (77) 99 05/04/19 21:00 78 15 129/74 (92) 99 05/04/19 20:00 98.8 91 17 111/66 (81) 99 05/04/19 20:00 78 17 130/77 (94) 97 05/04/19 20:00 Mechanical Ventilator 2.0 Nasal Cannula 05/04/19 19:43 104 21 100 Nasal Cannula 1.0 24 05/04/19 19:40 99 19 100 Nasal Cannula 1.0 24 05/04/19 19:37 79 17 100 Nasal Cannula 1.0 24 77 15 98 05/04/19 19:30 80 17 141/88 (105) 98 05/04/19 19:00 79 19 137/84 (101) 99 05/04/19 18:00 81 18 133/90 (104) 99 05/04/19 17:00 89 18 102/47 (65) 97 05/04/19 16:00 2.0 05/04/19 16:00 Mechanical Ventilator 2.0 Nasal Cannula 05/04/19 16:00 92 05/04/19 16:00 98.6 80 17 139/85 (103) 97 I&O Intake and Output 05/04/19 05/05/19 19:00 07:00 Intake Total 3225 ml 730 ml Output Total 980 ml 1600 ml Balance 2245 ml -870 ml Intake Oral 2400 ml 730 ml IV Total 800 ml Tube Feeding 25 ml Output Urine Total 980 ml 1600 ml # Bowel Movements 2 Dressing: other Wound: other Drains: other Cardiovascular: RSR Respiratory: decreased breath sounds Abdomen: soft, present bowel sounds, non-distended Extremities: no tenderness, no cyanosis, other Laboratory Tests Test 05/05/19 04:00 White Blood Count 15.6 K/UL (4.8-10.8) H Red Blood Count 2.63 M/UL (4.20-5.40) L Hemoglobin 8.7 G/DL (12.0-16.0) L Hematocrit 25.0 % (37.0-47.0) L Mean Corpuscular Volume 95 FL (80-99) Mean Corpuscular Hemoglobin 33.0 PG (27.0-31.0) H Mean Corpuscular Hemoglobin Concent 34.8 G/DL (32.0-36.0) Red Cell Distribution Width 14.3 % (11.6-14.8) Platelet Count 338 K/UL (150-450) Mean Platelet Volume 4.8 FL (6.5-10.1) L Neutrophils (%) (Auto) 84.5 % (45.0-75.0) H Lymphocytes (%) (Auto) 5.8 % (20.0-45.0) L Monocytes (%) (Auto) 6.8 % (1.0-10.0) Eosinophils (%) (Auto) 2.4 % (0.0-3.0) Basophils (%) (Auto) 0.6 % (0.0-2.0) Sodium Level 144 MMOL/L (136-145) Potassium Level 3.6 MMOL/L (3.5-5.1) Chloride Level 109 MMOL/L (98-107) H Carbon Dioxide Level 23 MMOL/L (21-32) Anion Gap 12 mmol/L (5-15) Blood Urea Nitrogen 82 mg/dL (7-18) H Creatinine 2.6 MG/DL (0.55-1.30) H Estimat Glomerular Filtration Rate 19.0 mL/min (>60) Glucose Level 128 MG/DL (74-106) H Uric Acid 9.6 MG/DL (2.6-7.2) H Calcium Level 8.9 MG/DL (8.5-10.1) Phosphorus Level 4.0 MG/DL (2.5-4.9) Magnesium Level 1.4 MG/DL (1.8-2.4) L Total Bilirubin 0.3 MG/DL (0.2-1.0) Aspartate Amino Transf (AST/SGOT) 20 U/L (15-37) Alanine Aminotransferase (ALT/SGPT) 24 U/L (12-78) Alkaline Phosphatase 63 U/L (46-116) Troponin I 0.000 ng/mL (0.000-0.056) Total Protein 7.3 G/DL (6.4-8.2) Albumin 1.9 G/DL (3.4-5.0) L Globulin 5.4 g/dL Albumin/Globulin Ratio 0.4 (1.0-2.7) L Plan Problems: (1) Stage 4 skin ulcer of sacral region Assessment & Plan: Patient presented on admission with a story healing stage IV sacral decubitus ulcer. (2) Leukocytosis Assessment & Plan: Patient's presents with subjective fevers, leukocytosis, anemia, abnormal labs. Since intubated in the ICU prior now self extubated doing well. Labs improving. Afebrile, hemodynamic stable, lactate normal Labs improving responding well to IV hydration On antibiotics as per ID no acute surgical intervention recommended Trend labs Will follow with recommendations (3) Cellulitis (4) S/P BKA (below knee amputation) unilateral Assessment & Plan: Left lower extremity BKA flap okay with mild granulation tissue at the lateral edge healing well. Historic and prior prosthetic believes it was shot off. Offload pressure with pillows Foam dressing to wound bed Additional Comments line removed picc line pending Star Molina May 05, 2019 15:55
--- NOTE | 2019-05-05 15:56 | Operative Note - PDOC ---
Operative Note Operative Note Date of Operation/Procedure: May 05, 2019 Pre-op Diagnosis: malpositioned right internal jugular central venous catheter Procedure: right internal jugular central venous catheter removal Post-op Diagnosis: same as pre-op Surgeon: alec calzada md Specimen: none Complications: none Condition: stable Estimated Blood Loss: none Drains: none Implant(s) used?: No Indications for Procedure 58F with malpositioned right internal jugular central venous catheter. line above clavicle, out at skin level only a few cm in, and leaking. recommend removal indicated. Description of Procedure patient made comfortable at the bedside. dressings removed. suture removed. line removed. pressure held until hemostasis. dressings applied. will monitor for bleeding. Alec Molina May 05, 2019 15:56
--- NOTE | 2019-05-05 16:00 | NUR ---
NURSE NOTES: Mentation remains the same. Patient showing SR on the threat monitoring analyst. Patient remains on 2L NC at this time with SpO2 98% and RR 20 with no sign of acute distress. Patient continues to ask for water frequently but is only given teaspoonful amounts at a time per speech therapy recommendation. Left nephrostomy tube remains patent and draining straw yellow urine and right urostomy bag patent and draining straw yellow urine as well. Right internal jugular central line removed. No IV access at this time. Stat PICC line ordered but radiology unable to place at this time. Will continue follow up. Repositioning done at this time. Will continue to monitor.
--- NOTE | 2019-05-05 16:08 | NUR ---
NURSE NOTES: Asked Dr Molina if he can place a central line for this patient as I am unable to get a hold of the PICC team and patient has no IV access at this time. He reported that he would come to place the line if radiology unable to do so. Received order from Dr Molina for lidocaine with Epi for the central line insertion. Order read back, verified, and placed.
[2019-05-05] MEDS ORDERED: Lidocaine 1% 10mg/ml/Epi 0.005mg/ml 30ml vial INJ SCH (16:15)
--- NOTE | 2019-05-05 17:00 | NUR ---
HAND-OFF: Report given to GUZMAN Weiss. Vital signs stable. Dr Molina at the bedside placing central line. Endorsed to follow up.
--- NOTE | 2019-05-05 17:00 | NUR ---
NURSE NOTES: RECEIVED PT VIA BED FROM ICU ESCORTED BY GUSTAVO HINDS. RECEIVED BED SIDE REPORT AND DR ANGUIANO INSERTED A TLC ON RT GROIN AREA. PT TOLERATED WELL PROCEDURE.PICTURE TAKEN OF SACRAL AREA PRESURE ULCER STAGE 3,DSG CHANGE AND FULL BODY ASSESSMENT DONE.NO ACUTE DISTRESS NOTED AT THIS TIME. WILL CONT TO MONITOR.
--- NOTE | 2019-05-05 17:00 | Consultation ---
DATE OF CONSULTATION: 05/05/2019 CONSULTING PHYSICIAN: Azul Pearl M.D. HISTORY OF PRESENT ILLNESS: The patient is a 58-year-old female, who was admitted to the hospital due to respiratory failure. The patient was intubated in the ICU. The patient was extubated yesterday and became very agitated, anxious. The patient has a history of schizophrenia. Has been on multiple medications. The patient is not able to be engaged during the evaluation and is easily agitated. PAST PSYCHIATRIC HISTORY: The patient is having waxing and waning consciousness episode of agitation. PAST MEDICAL HISTORY: Hypertension, CAD, asthma, COPD, CVA, seizure, constipation. ALLERGIES: No known drug allergies. SUBSTANCE ABUSE HISTORY: No known history of illicit drug use or alcohol. MENTAL STATUS EXAMINATION: The patient is confused, disoriented. Mood is agitated. Affect is flat. Thought process is concrete. Thought content, no suicidal or homicidal ideation. Cognition is impaired. Insight and judgment impaired. ASSESSMENT: [place] I Schizophrenia, acute encephalopathy. [place] II Deferred. [place] III As above. [place] IV Moderate. [place] V 20. PLAN: 1. We will only start the Zyprexa at this time. 2. Ativan IV was ordered by Dr. Smith. Azul Pearl M.D. DR: DOROTHY JOB#: [id number] CC:
--- NOTE | 2019-05-05 17:30 | Operative Note - PDOC ---
Operative Note Operative Note Date of Operation/Procedure: May 05, 2019 Pre-op Diagnosis: bacteremia Procedure: right femoral central venous catheter insertion Post-op Diagnosis: same as pre-op Surgeon: alec calzada md Anesthesia: local Specimen: none Complications: none Condition: stable Estimated Blood Loss: minimal Drains: none Implant(s) used?: No Indications for Procedure 58F bacteremia requiring IV ABX today noted to have malpositioned prior right IJ central line. line removed. poor peripheral access. requires meds, iv, and abx. central venous access necessary, indicated and recommended. unable to get picc line today. discussed with radiology. plan for new line placement. consent obtained from patient Description of Procedure time out taken. right groin prepped and draped in standard surgical fashion. lidocaine 1% with epi infiltrated. finder needle used and right femoral vein cannulated on first attempt. guidewire passed and needle removed. small skin incision made around wire. dilator used. triple lumen catheter passed without complication. wire discarded after removal. all three ports flushed and aspirated venous blood. line sutured in place and dressings applied. line okay to use. Alec Molina May 05, 2019 17:30
[2019-05-05] MEDS ORDERED: Albuterol/Ipratropium 3ml neb HHN PRN (18:00)
[2019-05-05] MEDS ORDERED: Sodium Citrate 30ml ORAL SCH (18:00)
[2019-05-05] MEDS ORDERED: LORazepam Inj 2mg/ml 1ml IV PRN (18:00)
--- NOTE | 2019-05-05 19:25 | NUR ---
HAND-OFF: Report given to .YARI HINDS.
--- NOTE | 2019-05-05 19:30 | NUR ---
NURSE NOTES: Received pt from GUZMAN Galo. pt is observed resting in bed, eyes closed, able to respond to verbal commands. denies pain at this time. pt is on 2 L O2 via NC,tolerating well; no s/sx of respiratory distress noted at this time. skin alterations noted. bilateral nephrostomy bags noted, draining light paula urine. R inguinal TLC noted, patent and intact; currently running 1/2 NS at 75 cc/hr and 1 gram magnesium at prescribed rate. dressing dry and intact. bed in lowest position and locked, siderails up X3, call light within reach. will continue to monitor.
[2019-05-05] MEDS ORDERED: Dyna-Hex 2% Top Sol 2oz TOPIC SCH (20:00)
[2019-05-05] MEDS: Dyna-Hex 2% Top Sol 2oz TOPIC SCH (20:20)
--- NOTE | 2019-05-05 21:33 | Pulmonolgy Critical Care Note ---
Critical Care - Asmt/Plan Assessment/Plan: Pulmonary Progress Note HPI This patient is a 58 year old woman with past history of Chronic Obstructive Pulmonary Disease, Seizures, Previous CVA/TIA, Hypertension, CAD, Cerviacl cancer s/p Uropathy - has B/L Nephrostomy tubes, Chronic kidney disease, Peripheral vascular disease sp LLE amputation, Schizophrenia, [facility] with shortness of breath, fever, N/V and hypoxemia. Patient requires Rapid Sequence Intubation in the Emergency Department - noted to have severe bronchospasm. Self extubated, on BiPAP PRN Persistent hyperchloremic metabolic acidosis Hematology following for anemia UTI - ESBL GNR, pos BC for GNR Allergies: Grits [place] Past Medical History: see triage record, old chart reviewed, HTN, CAD, asthma, COPD, GERD, CVA/TIA, seizures, psych hx - schizophrenia, renal disease, other - cervical ca s/p obstructive uropathy s/p BL nephrostomy tubes, muscle weakness Past Surgical History: other - L. BKA Social History: Denies: smoking, alcohol use, drug use All Other Systems: negative except mentioned in HPI Physical Exam Vital Signs Noted General Appearance: no apparent distress, awake, non-toxic Head: normocephalic, atraumatic Eyes: bilateral eye normal inspection, bilateral eye PERRL ENT: hearing grossly normal, normal pharynx Neck: full range of motion, supple/symm/no masses Respiratory: chest non-tender, CTAB Cardiovascular: regular rate, rhythm, HS1, HS2 normal, no edema Gastrointestinal: normal bowel sounds, non tender, soft, non-distended, no guarding, no rebound Rectal: deferred Musculoskeletal: back normal, normal range of motion, non-tender, other - L. 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 Organism 1 ESCHERICHIA COLI - ESBL COLONY COUNT: >100,000 CFU/ML ESCCOL ESB M.I.C. RX --------- --- AMPICILLIN >=32 R CEFAZOLIN >=64 R CEFTAZIDIME R CEFTRIAXONE >=64 R CEFEPIME R CIPROFLOXACIN >=4 R GENTAMICIN <=1 S LEVOFLOXACIN >=8 R IMIPENEM <=0.25 S NITROFURANTOIN <=16 S TIGECYCLINE <=0.5 S TRIMETHOPRIM/SULFA <=20 S AMIKACIN 16 S PIPERACILLIN/TAZOBACTAM 8 S Critical Care - Objective Last 24 Hour Vital Signs Date Time Temp Pulse Resp B/P (MAP) Pulse Ox O2 Delivery O2 Flow Rate FiO2 05/05/19 21:26 94 05/05/19 20:00 98.0 77 20 103/64 (77) 91 05/05/19 19:36 80 20 97 Nasal Cannula 1.0 24 76 20 92 05/05/19 19:35 Nasal Cannula 1.0 24 05/05/19 19:35 Nasal Cannula 1.0 24 05/05/19 18:00 Nasal Cannula 2.0 Nasal Cannula 2.0 05/05/19 16:00 Nasal Cannula 2.0 Nasal Cannula 2.0 05/05/19 16:00 98.6 82 38 128/85 (99) 100 05/05/19 16:00 80 05/05/19 15:45 88 20 99 Nasal Cannula 1.0 24 83 22 97 05/05/19 15:44 85 20 99 Nasal Cannula 1.0 24 05/05/19 15:44 89 22 100 Nasal Cannula 1.0 24 05/05/19 15:00 79 19 131/84 (100) 97 05/05/19 14:00 86 19 127/85 (99) 91 05/05/19 13:00 85 23 115/60 (78) 96 05/05/19 12:00 98.3 85 23 115/60 (78) 96 05/05/19 12:00 79 05/05/19 12:00 Nasal Cannula 2.0 Nasal Cannula 2.0 05/05/19 11:10 Nasal Cannula 1.0 24 05/05/19 11:10 Nasal Cannula 1.0 24 05/05/19 11:00 88 123/77 (92) 05/05/19 10:00 89 24 149/97 (114) 95 05/05/19 09:00 79 19 124/75 (91) 96 05/05/19 08:00 Nasal Cannula 2.0 Nasal Cannula 2.0 05/05/19 08:00 78 28 116/68 (84) 96 05/05/19 08:00 98.4 05/05/19 08:00 79 05/05/19 07:17 Nasal Cannula 1.0 24 05/05/19 07:17 Nasal Cannula 1.0 24 05/05/19 07:17 73 16 99 Nasal Cannula 1.0 24 77 16 96 05/05/19 07:00 76 17 117/72 (87) 94 05/05/19 06:00 87 34 100/77 (85) 90 05/05/19 05:00 91 17 107/55 (72) 95 05/05/19 04:00 98.8 76 20 122/78 (93) 96 05/05/19 04:00 81 05/05/19 04:00 Mechanical Ventilator 2.0 Nasal Cannula 05/05/19 03:42 Nasal Cannula 1.0 24 05/05/19 03:42 Nasal Cannula 1.0 24 05/05/19 03:34 76 16 100 Nasal Cannula 1.0 24 73 14 100 05/05/19 03:00 83 24 152/93 (112) 98 05/05/19 02:00 76 16 143/103 (116) 97 05/05/19 01:00 72 16 114/71 (85) 97 05/05/19 00:00 82 05/05/19 00:00 98.4 72 14 111/68 (82) 97 05/05/19 00:00 Mechanical Ventilator 2.0 Nasal Cannula 05/04/19 23:49 Nasal Cannula 1.0 24 05/04/19 23:49 Nasal Cannula 1.0 24 05/04/19 23:11 70 15 100 Nasal Cannula 1.0 24 71 14 98 05/04/19 23:00 68 14 106/73 (84) 99 05/04/19 22:00 76 15 106/62 (77) 99 Micro: Microbiology Date/Time Source Procedure Growth Status 05/03/19 13:25 Nasal Nares - Final Complete 05/03/19 13:25 Nasal Nares - Final Complete 05/03/19 13:25 Sputum Gram Stain - Final Complete 05/03/19 13:25 Sputum Culture - Final Escherichia Coli - Esbl Complete Accucheck: 133 Critical Care - Subjective ROS Limited/Unobtainable: No FI02: 24 Vent Support Breath Rate: 22 Vent Support Mode: BiLevel Vent Tidal Volume: 450 Sputum Amount: None PEEP: 5.0 PIP: 41 Tube Feeding Amount: 0 I&O: Intake and Output 05/04/19 05/05/19 19:00 07:00 Intake Total 3225 ml 730 ml Output Total 980 ml 1600 ml Balance 2245 ml -870 ml Intake Oral 2400 ml 730 ml IV Total 800 ml Tube Feeding 25 ml Output Urine Total 980 ml 1600 ml # Bowel Movements 2 ET-Tube: 7.5 ET Position: 22 Gabino Smith MD May 05, 2019 21:33
--- NOTE | 2019-05-05 21:51 | General Progress Note ---
Assessment/Plan Problem List: (1) Respiratory distress ICD Codes: R06.03 - Acute respiratory distress SNOMED: 406302575 (2) Leukocytosis ICD Codes: D72.829 - Elevated white blood cell count, unspecified SNOMED: 365105689, 698843305 (3) Renal failure ICD Codes: N19 - Unspecified kidney failure SNOMED: 11986306 (4) Respiratory failure ICD Codes: J96.90 - Respiratory failure, unspecified, unspecified whether with hypoxia or hypercapnia SNOMED: 983034775 (5) Pneumonia ICD Codes: J18.9 - Pneumonia, unspecified organism SNOMED: 026141132 (6) Schizophrenia ICD Codes: F20.9 - Schizophrenia, unspecified SNOMED: 57713119 (7) Seizure disorder ICD Codes: G40.909 - Epilepsy, unspecified, not intractable, without status epilepticus SNOMED: 675617985 (8) Hypoalbuminemia ICD Codes: E88.09 - Other disorders of plasma-protein metabolism, not elsewhere classified SNOMED: 170109301 Status: progressing, unchanged Assessment/Plan: resp failure afebrile pna extubated pna is improving more alert arf has one nephrostomy tube Subjective ROS Limited/Unobtainable: Yes Allergies: Coded Allergies: Grits (Unverified Allergy, Unknown, 07/06/17) [place] (Unverified Allergy, Unknown, 07/06/17) Objective Last 24 Hour Vital Signs Date Time Temp Pulse Resp B/P (MAP) Pulse Ox O2 Delivery O2 Flow Rate FiO2 05/05/19 21:26 94 05/05/19 20:00 98.0 77 20 103/64 (77) 91 05/05/19 19:36 80 20 97 Nasal Cannula 1.0 24 76 20 92 05/05/19 19:35 Nasal Cannula 1.0 24 05/05/19 19:35 Nasal Cannula 1.0 24 05/05/19 18:00 Nasal Cannula 2.0 Nasal Cannula 2.0 05/05/19 16:00 Nasal Cannula 2.0 Nasal Cannula 2.0 05/05/19 16:00 98.6 82 38 128/85 (99) 100 05/05/19 16:00 80 05/05/19 15:45 88 20 99 Nasal Cannula 1.0 24 83 22 97 05/05/19 15:44 85 20 99 Nasal Cannula 1.0 24 05/05/19 15:44 89 22 100 Nasal Cannula 1.0 24 05/05/19 15:00 79 19 131/84 (100) 97 05/05/19 14:00 86 19 127/85 (99) 91 05/05/19 13:00 85 23 115/60 (78) 96 05/05/19 12:00 98.3 85 23 115/60 (78) 96 05/05/19 12:00 79 05/05/19 12:00 Nasal Cannula 2.0 Nasal Cannula 2.0 05/05/19 11:10 Nasal Cannula 1.0 24 05/05/19 11:10 Nasal Cannula 1.0 24 05/05/19 11:00 88 123/77 (92) 05/05/19 10:00 89 24 149/97 (114) 95 05/05/19 09:00 79 19 124/75 (91) 96 05/05/19 08:00 Nasal Cannula 2.0 Nasal Cannula 2.0 05/05/19 08:00 78 28 116/68 (84) 96 05/05/19 08:00 98.4 05/05/19 08:00 79 05/05/19 07:17 Nasal Cannula 1.0 24 05/05/19 07:17 Nasal Cannula 1.0 24 05/05/19 07:17 73 16 99 Nasal Cannula 1.0 24 77 16 96 05/05/19 07:00 76 17 117/72 (87) 94 05/05/19 06:00 87 34 100/77 (85) 90 05/05/19 05:00 91 17 107/55 (72) 95 05/05/19 04:00 98.8 76 20 122/78 (93) 96 05/05/19 04:00 81 05/05/19 04:00 Mechanical Ventilator 2.0 Nasal Cannula 05/05/19 03:42 Nasal Cannula 1.0 24 05/05/19 03:42 Nasal Cannula 1.0 24 05/05/19 03:34 76 16 100 Nasal Cannula 1.0 24 73 14 100 05/05/19 03:00 83 24 152/93 (112) 98 05/05/19 02:00 76 16 143/103 (116) 97 05/05/19 01:00 72 16 114/71 (85) 97 05/05/19 00:00 82 2/6/20 00:00 98.4 72 14 111/68 (82) 97 05/05/19 00:00 Mechanical Ventilator 2.0 Nasal Cannula 05/04/19 23:49 Nasal Cannula 1.0 24 05/04/19 23:49 Nasal Cannula 1.0 24 05/04/19 23:11 70 15 100 Nasal Cannula 1.0 24 71 14 98 05/04/19 23:00 68 14 106/73 (84) 99 05/04/19 22:00 76 15 106/62 (77) 99 Intake and Output 05/04/19 05/05/19 19:00 07:00 Intake Total 3225 ml 730 ml Output Total 980 ml 1600 ml Balance 2245 ml -870 ml Intake Oral 2400 ml 730 ml IV Total 800 ml Tube Feeding 25 ml Output Urine Total 980 ml 1600 ml # Bowel Movements 2 Laboratory Tests 05/05/19 04:00: White Blood Count 15.6H, Red Blood Count 2.63L, Hemoglobin 8.7L, Hematocrit 25.0L, Mean Corpuscular Volume 95, Mean Corpuscular Hemoglobin 33.0H, Mean Corpuscular Hemoglobin Concent 34.8, Red Cell Distribution Width 14.3, Platelet Count 338, Mean Platelet Volume 4.8L, Neutrophils (%) (Auto) 84.5H, Lymphocytes (%) (Auto) 5.8L, Monocytes (%) (Auto) 6.8, Eosinophils (%) (Auto) 2.4, Basophils (%) (Auto) 0.6, Sodium Level 144, Potassium Level 3.6, Chloride Level 109H, Carbon Dioxide Level 23, Anion Gap 12, Blood Urea Nitrogen 82H, Creatinine 2.6H, Estimat Glomerular Filtration Rate 19.0, Glucose Level 128H, Uric Acid 9.6H, Calcium Level 8.9, Phosphorus Level 4.0, Magnesium Level 1.4L, Total Bilirubin 0.3, Aspartate Amino Transf (AST/SGOT) 20, Alanine Aminotransferase (ALT/SGPT) 24, Alkaline Phosphatase 63, Troponin I 0.000, Total Protein 7.3, Albumin 1.9L, Globulin 5.4, Albumin/Globulin Ratio 0.4L Height (Feet): 5 Height (Inches): 3.00 Weight (Pounds): 190 Neck: supple Cardiovascular: normal rate Respiratory/Chest: lungs clear Abdomen: soft Isela Rubio MD May 05, 2019 21:51
[2019-05-05] MEDS ORDERED: Solu-MEDROL 125mg Inj IVP SCH (22:00)
--- NOTE | 2019-05-05 23:54 | Cardiology Progress Note ---
Assessment/Plan Assessment/Plan 1. Hypotension, most likely septic shock, resolved, transferred out of the unit , 2D echocardiography obtained in month of January had shown normal LV systolic and diastolic function with LVEF of approximately 65%. 2. History of peripheral vascular disease, status post left BKA. 3. History of CVA/TIA. 4. Acute respiratory failure, resolved. Chest x-ray shows no acute cardiopulmonary disease. 5. Obstructive uropathy, status post nephrostomy tube placement. 6. Acute kidney injury on CKD. 7. Seizure disorder. 8. Mixed hyperlipidemia with metabolic syndrome Subjective Subjective Sinus rhythm at rate of 63. Objective Last 24 Hour Vital Signs Date Time Temp Pulse Resp B/P (MAP) Pulse Ox O2 Delivery O2 Flow Rate FiO2 05/05/19 23:14 63 18 94 Nasal Cannula 2.0 28 05/05/19 23:14 63 18 94 Nasal Cannula 2.0 28 05/05/19 23:12 68 18 96 Nasal Cannula 2.0 28 63 18 94 05/05/19 21:26 94 05/05/19 20:00 98.0 77 20 103/64 (77) 91 05/05/19 20:00 77 05/05/19 19:36 80 20 97 Nasal Cannula 1.0 24 76 20 92 05/05/19 19:35 Nasal Cannula 1.0 24 05/05/19 19:35 Nasal Cannula 1.0 24 05/05/19 19:00 76 05/05/19 18:00 Nasal Cannula 2.0 Nasal Cannula 2.0 05/05/19 16:00 Nasal Cannula 2.0 Nasal Cannula 2.0 05/05/19 16:00 98.6 82 38 128/85 (99) 100 05/05/19 16:00 80 05/05/19 15:45 88 20 99 Nasal Cannula 1.0 24 83 22 97 05/05/19 15:44 85 20 99 Nasal Cannula 1.0 24 05/05/19 15:44 89 22 100 Nasal Cannula 1.0 24 05/05/19 15:00 79 19 131/84 (100) 97 05/05/19 14:00 86 19 127/85 (99) 91 05/05/19 13:00 85 23 115/60 (78) 96 05/05/19 12:00 98.3 85 23 115/60 (78) 96 05/05/19 12:00 79 05/05/19 12:00 Nasal Cannula 2.0 Nasal Cannula 2.0 05/05/19 11:10 Nasal Cannula 1.0 24 05/05/19 11:10 Nasal Cannula 1.0 24 05/05/19 11:00 88 123/77 (92) 05/05/19 10:00 89 24 149/97 (114) 95 05/05/19 09:00 79 19 124/75 (91) 96 05/05/19 08:00 Nasal Cannula 2.0 Nasal Cannula 2.0 05/05/19 08:00 78 28 116/68 (84) 96 05/05/19 08:00 98.4 05/05/19 08:00 79 05/05/19 07:17 Nasal Cannula 1.0 24 05/05/19 07:17 Nasal Cannula 1.0 24 05/05/19 07:17 73 16 99 Nasal Cannula 1.0 24 77 16 96 05/05/19 07:00 76 17 117/72 (87) 94 05/05/19 06:00 87 34 100/77 (85) 90 05/05/19 05:00 91 17 107/55 (72) 95 05/05/19 04:00 98.8 76 20 122/78 (93) 96 05/05/19 04:00 81 05/05/19 04:00 Mechanical Ventilator 2.0 Nasal Cannula 05/05/19 03:42 Nasal Cannula 1.0 24 05/05/19 03:42 Nasal Cannula 1.0 24 05/05/19 03:34 76 16 100 Nasal Cannula 1.0 24 73 14 100 05/05/19 03:00 83 24 152/93 (112) 98 05/05/19 02:00 76 16 143/103 (116) 97 05/05/19 01:00 72 16 114/71 (85) 97 05/05/19 00:00 82 05/05/19 00:00 98.4 72 14 111/68 (82) 97 05/05/19 00:00 Mechanical Ventilator 2.0 Nasal Cannula Intake and Output 05/04/19 05/05/19 18:59 06:59 Intake Total 3410 ml 730 ml Output Total 1040 ml 1470 ml Balance 2370 ml -740 ml Intake Oral 2400 ml 730 ml Free Water 60 ml IV Total 900 ml Tube Feeding 50 ml Output Urine Total 1040 ml 1470 ml # Bowel Movements 2 2D Echo: LVEF 60%, RVSP 31 mmHg, Normal LV Diastolic fxn. Laboratory Tests Test 05/05/19 04:00 White Blood Count 15.6 K/UL (4.8-10.8) H Red Blood Count 2.63 M/UL (4.20-5.40) L Hemoglobin 8.7 G/DL (12.0-16.0) L Hematocrit 25.0 % (37.0-47.0) L Mean Corpuscular Volume 95 FL (80-99) Mean Corpuscular Hemoglobin 33.0 PG (27.0-31.0) H Mean Corpuscular Hemoglobin Concent 34.8 G/DL (32.0-36.0) Red Cell Distribution Width 14.3 % (11.6-14.8) Platelet Count 338 K/UL (150-450) Mean Platelet Volume 4.8 FL (6.5-10.1) L Neutrophils (%) (Auto) 84.5 % (45.0-75.0) H Lymphocytes (%) (Auto) 5.8 % (20.0-45.0) L Monocytes (%) (Auto) 6.8 % (1.0-10.0) Eosinophils (%) (Auto) 2.4 % (0.0-3.0) Basophils (%) (Auto) 0.6 % (0.0-2.0) Sodium Level 144 MMOL/L (136-145) Potassium Level 3.6 MMOL/L (3.5-5.1) Chloride Level 109 MMOL/L (98-107) H Carbon Dioxide Level 23 MMOL/L (21-32) Anion Gap 12 mmol/L (5-15) Blood Urea Nitrogen 82 mg/dL (7-18) H Creatinine 2.6 MG/DL (0.55-1.30) H Estimat Glomerular Filtration Rate 19.0 mL/min (>60) Glucose Level 128 MG/DL (74-106) H Uric Acid 9.6 MG/DL (2.6-7.2) H Calcium Level 8.9 MG/DL (8.5-10.1) Phosphorus Level 4.0 MG/DL (2.5-4.9) Magnesium Level 1.4 MG/DL (1.8-2.4) L Total Bilirubin 0.3 MG/DL (0.2-1.0) Aspartate Amino Transf (AST/SGOT) 20 U/L (15-37) Alanine Aminotransferase (ALT/SGPT) 24 U/L (12-78) Alkaline Phosphatase 63 U/L (46-116) Troponin I 0.000 ng/mL (0.000-0.056) Total Protein 7.3 G/DL (6.4-8.2) Albumin 1.9 G/DL (3.4-5.0) L Globulin 5.4 g/dL Albumin/Globulin Ratio 0.4 (1.0-2.7) L Microbiology Date/Time Source Procedure Growth Status 05/03/19 13:25 Nasal Nares - Final Complete 05/03/19 13:25 Nasal Nares - Final Complete 05/03/19 13:25 Sputum Gram Stain - Final Complete 05/03/19 13:25 Sputum Culture - Final Escherichia Coli - Esbl Complete Objective HEENT: Atraumatic and normocephalic. Anicteric. Pupils are equal, round, and reactive to light and accommodation. Conjunctival pallor is present. NECK: JVP <5cm. No carotid bruit. Carotid upstrokes 2+ bilaterally. CARDIOVASCULAR: Normal S1, S2. Regular rate and rhythm. No murmurs, gallops, or rubs. PMI is at fourth intercostal space in the midclavicular line. LUNGS: Clear to auscultation bilaterally. ABDOMEN: Soft, nondistended. No hepatosplenomegaly. Positive bowel sounds. Bilateral nephrostomy tubes. EXTREMITIES: Left BKA, otherwise no edema, clubbing, or cyanosis. Justo Merchant MD May 05, 2019 23:54
[2019-05-06] VITALS: BP 106/65
[2019-05-06] MEDS: Albuterol/Ipratropium 3ml neb HHN SCH ×6 (03:21→22:50)
[2019-05-06 04:00] VITALS: BP 117/74
[2019-05-06 05:12] LABS: BASOPHILS % (AUTO) 1.2 % (0.0-2.0); EOSINOPHILS % (AUTO) 1.8 % (0.0-3.0); HEMATOCRIT 24.9 % (37.0-47.0); HEMOGLOBIN 8.6 G/DL (12.0-16.0); LYMPHOCYTES % (AUTO) 8.8 % (20.0-45.0); MEAN CORPUSCULAR VOLUME 94 FL (80-99); MONOCYTES % (AUTO) 7.8 % (1.0-10.0); NEUTROPHILS % (AUTO) 80.3 % (45.0-75.0); PLATELET COUNT 356 K/UL (150-450); RED BLOOD COUNT 2.63 M/UL (4.20-5.40); RED CELL DISTRIBUTION WIDTH 14.4 % (11.6-14.8); WHITE BLOOD COUNT 14.2 K/UL (4.8-10.8)
[2019-05-06 05:32] LABS: ALANINE AMINOTRANSFERASE 20 U/L (12-78); ALBUMIN 1.9 G/DL (3.4-5.0); ALBUMIN/GLOBULIN RATIO 0.4 (1.0-2.7); ALKALINE PHOSPHATASE 60 U/L (46-116); ANION GAP 10 mmol/L (5-15); ASPARTATE AMINO TRANSFERASE 18 U/L (15-37); BILIRUBIN,TOTAL 0.3 MG/DL (0.2-1.0); BLOOD UREA NITROGEN 80 mg/dL (7-18); CALCIUM 8.9 MG/DL (8.5-10.1); CARBON DIOXIDE 24 MMOL/L (21-32); CHLORIDE 107 MMOL/L (98-107); CREATININE 2.3 MG/DL (0.55-1.30); PHOSPHORUS 4.6 MG/DL (2.5-4.9); POTASSIUM 4.1 MMOL/L (3.5-5.1); SODIUM 141 MMOL/L (136-145)
[2019-05-06] MEDS: NovoLOG Insulin Flexpen SUBQ SCH ×4 (06:00→17:16)
[2019-05-06] MEDS: Acetaminophen 650mg/20.3ml NG PRN ×2 (06:07→18:32)
--- NOTE | 2019-05-06 07:40 | NUR ---
NURSE NOTES: Received patient from GUZMAN Ballard. Patient is awake in bed and aox3. Patient has no reports of cardiac arrhythmias from the previous shift and showing SR on the sap portal developer. Patient is on 2L NC as ordered and tolerating well. Patient has bilateral nephrostomy tubes and draining properly. Patient has a R Femoral Triple Lumen and flushing properly and running 1/2 NS at 75mL/hr. Bed is locked, alarmed, and in the lowest position. Side rails are up and padded and call light is within reach. Addendum: 05/06/19 at 0759 by Louie Diaz RN NURSE NOTES: Will continue to monitor.
--- NOTE | 2019-05-06 07:54 | NUR ---
HAND-OFF: Report given to GUZMAN Palma. pt is in stable condition.
[2019-05-06 08:00] VITALS: BP 149/83
[2019-05-06] MEDS: Solu-MEDROL 40mg Inj IVP SCH ×2 (08:17→20:31)
[2019-05-06] MEDS: Sodium Citrate 30ml ORAL SCH ×2 (08:19→17:16)
[2019-05-06] MEDS: levETIRAcetam 500mg/5ml Liquid NG SCH ×2 (08:19→20:31)
[2019-05-06] MEDS: Meropenem 500 MG in NS 55 ML IVPB SCH ×2 (08:19→20:31)
[2019-05-06] MEDS: Gabapentin 300 MG/6 ML Soln NG SCH ×3 (08:33→17:16)
[2019-05-06] MEDS: Heparin 5000 units/ml inj SUBQ SCH ×2 (08:35→20:39)
[2019-05-06] MEDS ORDERED: Lacosamide 50mg tablet ORAL SCH (09:00)
--- NOTE | 2019-05-06 10:01 | NUR ---
RD ASSESSMENT & RECOMMENDATIONS SEE CARE ACTIVITY FOR COMPLETE ASSESSMENT DAILY ESTIMATED NEEDS: Needs based on Pulmonary, wound, renal; 60kg abw 25-35 kcals/kg 4559-1674 total kcals .8-1.25 g protein/kg 48-75 g total protein 25-30 mL/kg 6290-0931 total fluid mLs NUTRITION DIAGNOSIS: * Swallowing difficulty r/t respiratory failure as evidenced by pt orally intubated, now extubated on mech soft ground texture diet w/ NTL. * Altered nutrition related lab values R/T CKD, DM as evidenced by elev creat (5.0 -> 2.3), elev phos (6.1-> wnl), elev POC glu (200's-> now improved). CURRENT DIET: Now on CCHO MED mech soft ground NTL PO DIET RECOMMENDATIONS: CLAIM PROFESSIONAL eval post extubation-> RENAL DIET / texture per rock splitter ADDITIONAL RECOMMENDATIONS: 1) Per SNF: HT= 5'4" WT on 04/1950=004#, c/w current bedscale wt of 182.5# -> maintain calibrated bed scale wt 2) Monitor renal fxn and lytes. 3) Wound healing: Add Nephrovite x 1, rec Vit C (dosing per nephro) Don 1pkt BID (mix w/ 4oz water) 4) Monitor BGs closely w/ Solumedrol, need for long acting insulin .
[2019-05-06] MEDS ORDERED: NS 275ml ONE ×3 (11:04→11:06)
[2019-05-06] MEDS ORDERED: D5NS 1000ml IV ONE (11:04)
[2019-05-06] MEDS ORDERED: Tubing IV Secondary IV ONE (11:06)
[2019-05-06 11:17] VITALS: BP 135/85
--- NOTE | 2019-05-06 11:24 | Surgery Progress Note ---
Surgery Progress Note Subjective Procedure Performed right femoral central venous catheter insertion Additional Comments leukocytosis trending down doing well no complaints wants more water no n/v/f/c Objective Last 24 Hour Vital Signs Date Time Temp Pulse Resp B/P (MAP) Pulse Ox O2 Delivery O2 Flow Rate FiO2 05/06/19 11:17 96.8 79 18 135/85 (102) 95 05/06/19 08:11 84 05/06/19 08:00 Nasal Cannula 2.0 Nasal Cannula 2.0 05/06/19 08:00 96.8 80 18 149/83 (105) 95 05/06/19 06:38 Nasal Cannula 2.0 28 05/06/19 06:38 75 20 98 Nasal Cannula 2.0 28 73 20 96 05/06/19 06:37 Nasal Cannula 2.0 28 05/06/19 04:00 97.0 64 18 117/74 (88) 96 05/06/19 04:00 Nasal Cannula 2.0 Nasal Cannula 2.0 05/06/19 04:00 66 05/06/19 03:21 Nasal Cannula 2.0 28 05/06/19 03:21 65 18 98 Nasal Cannula 2.0 28 61 18 96 05/06/19 03:20 Nasal Cannula 2.0 28 05/06/19 00:00 66 05/06/19 00:00 Nasal Cannula 2.0 Nasal Cannula 2.0 05/06/19 00:00 97.4 62 16 106/65 (79) 92 05/05/19 23:14 63 18 94 Nasal Cannula 2.0 28 05/05/19 23:14 63 18 94 Nasal Cannula 2.0 28 05/05/19 23:12 68 18 96 Nasal Cannula 2.0 28 63 18 94 05/05/19 21:26 94 05/05/19 20:00 98.0 77 20 103/64 (77) 91 05/05/19 20:00 Nasal Cannula 2.0 Nasal Cannula 2.0 05/05/19 20:00 77 05/05/19 19:36 80 20 97 Nasal Cannula 1.0 24 76 20 92 05/05/19 19:35 Nasal Cannula 1.0 24 05/05/19 19:35 Nasal Cannula 1.0 24 05/05/19 19:00 76 05/05/19 18:00 Nasal Cannula 2.0 Nasal Cannula 2.0 05/05/19 16:00 Nasal Cannula 2.0 Nasal Cannula 2.0 05/05/19 16:00 98.6 82 38 128/85 (99) 100 05/05/19 16:00 80 05/05/19 15:45 88 20 99 Nasal Cannula 1.0 24 83 22 97 05/05/19 15:44 85 20 99 Nasal Cannula 1.0 24 05/05/19 15:44 89 22 100 Nasal Cannula 1.0 24 05/05/19 15:00 79 19 131/84 (100) 97 05/05/19 14:00 86 19 127/85 (99) 91 05/05/19 13:00 85 23 115/60 (78) 96 05/05/19 12:00 98.3 85 23 115/60 (78) 96 05/05/19 12:00 79 05/05/19 12:00 Nasal Cannula 2.0 Nasal Cannula 2.0 I&O Intake and Output 05/05/19 05/06/19 19:00 07:00 Intake Total 1190 ml 1360 ml Output Total 1030 ml 1500 ml Balance 160 ml -140 ml Intake Oral 840 ml 480 ml IV Total 350 ml 880 ml Output Urine Total 1030 ml 1500 ml Dressing: dry Wound: clean Cardiovascular: RSR Respiratory: clear Abdomen: soft, non-tender, present bowel sounds Extremities: no edema, no tenderness, no cyanosis Laboratory Tests Test 05/06/19 04:15 White Blood Count 14.2 K/UL (4.8-10.8) H Red Blood Count 2.63 M/UL (4.20-5.40) L Hemoglobin 8.6 G/DL (12.0-16.0) L Hematocrit 24.9 % (37.0-47.0) L Mean Corpuscular Volume 94 FL (80-99) Mean Corpuscular Hemoglobin 32.7 PG (27.0-31.0) H Mean Corpuscular Hemoglobin Concent 34.6 G/DL (32.0-36.0) Red Cell Distribution Width 14.4 % (11.6-14.8) Platelet Count 356 K/UL (150-450) Mean Platelet Volume 5.1 FL (6.5-10.1) L Neutrophils (%) (Auto) 80.3 % (45.0-75.0) H Lymphocytes (%) (Auto) 8.8 % (20.0-45.0) L Monocytes (%) (Auto) 7.8 % (1.0-10.0) Eosinophils (%) (Auto) 1.8 % (0.0-3.0) Basophils (%) (Auto) 1.2 % (0.0-2.0) Sodium Level 141 MMOL/L (136-145) Potassium Level 4.1 MMOL/L (3.5-5.1) Chloride Level 107 MMOL/L (98-107) Carbon Dioxide Level 24 MMOL/L (21-32) Anion Gap 10 mmol/L (5-15) Blood Urea Nitrogen 80 mg/dL (7-18) H Creatinine 2.3 MG/DL (0.55-1.30) H Estimat Glomerular Filtration Rate 21.9 mL/min (>60) Glucose Level 125 MG/DL (74-106) H Uric Acid 7.9 MG/DL (2.6-7.2) H Calcium Level 8.9 MG/DL (8.5-10.1) Phosphorus Level 4.6 MG/DL (2.5-4.9) Magnesium Level 2.3 MG/DL (1.8-2.4) Total Bilirubin 0.3 MG/DL (0.2-1.0) Aspartate Amino Transf (AST/SGOT) 18 U/L (15-37) Alanine Aminotransferase (ALT/SGPT) 20 U/L (12-78) Alkaline Phosphatase 60 U/L (46-116) Total Protein 7.0 G/DL (6.4-8.2) Albumin 1.9 G/DL (3.4-5.0) L Globulin 5.1 g/dL Albumin/Globulin Ratio 0.4 (1.0-2.7) L Plan Problems: (1) Stage 4 skin ulcer of sacral region Assessment & Plan: Patient presented on admission with a story healing stage IV sacral decubitus ulcer. (2) Leukocytosis Assessment & Plan: Patient's presents with subjective fevers, leukocytosis, anemia, abnormal labs. Since intubated in the ICU prior now self extubated doing well. Labs improving. Afebrile, hemodynamic stable, lactate normal Labs improving responding well to IV hydration On antibiotics as per ID no acute surgical intervention recommended Trend labs line [facility] soon Will follow with recommendations (3) Cellulitis (4) S/P BKA (below knee amputation) unilateral Assessment & Plan: Left lower extremity BKA flap okay with mild granulation tissue at the lateral edge healing well. Historic and prior prosthetic believes it was shot off. Offload pressure with pillows Foam dressing to wound bed Star Molina May 06, 2019 11:24
--- NOTE | 2019-05-06 11:50 | Nephrology Progress Note ---
Assessment/Plan Problem List: (1) Renal failure Assessment: acute on chronic (2) Dehydration (3) Respiratory failure Assessment: self extubated (4) Anemia (5) Hydronephrosis Assessment: nephrostomies Assessment Acute on Chronic Renal Failure + Severe dehydration- IMPROVING h/o ? kidney mass h/o hydronephrosis - has Nephrostomie Anemia Ventilator Dependent Respiratory failure pulmonary infiltrate / Urinary tract infection h/o ESBL UTI from [facility]ci Seizure disorder on Clonazepam and Gabapentin Schizophrenia Hypertension, presented with low BP Obesity Plan taper steroids per pulmonary Self extubated Hydrate pulmonary support Bicitra Transfuse as needed monitor renal parameters Urology eval avoid nephrotoxics per consultants Moderate right hydronephrosis. This is apparently new at least since the last exam from 07/12/2018. More recent exam had shown placement of a ureteral stent on the right which we're told was removed. Consider noncontrast CT for further evaluation. Left ureteral stent the partially visualized. No hydronephrosis in the left kidney. Subjective ROS Limited/Unobtainable: No Constitutional: Reports: other - feels better Objective Objective Last 24 Hour Vital Signs Date Time Temp Pulse Resp B/P (MAP) Pulse Ox O2 Delivery O2 Flow Rate FiO2 05/06/19 11:17 96.8 79 18 135/85 (102) 95 05/06/19 08:11 84 05/06/19 08:00 Nasal Cannula 2.0 Nasal Cannula 2.0 05/06/19 08:00 96.8 80 18 149/83 (105) 95 05/06/19 06:38 Nasal Cannula 2.0 28 05/06/19 06:38 75 20 98 Nasal Cannula 2.0 28 73 20 96 05/06/19 06:37 Nasal Cannula 2.0 28 05/06/19 04:00 97.0 64 18 117/74 (88) 96 05/06/19 04:00 Nasal Cannula 2.0 Nasal Cannula 2.0 05/06/19 04:00 66 05/06/19 03:21 Nasal Cannula 2.0 28 05/06/19 03:21 65 18 98 Nasal Cannula 2.0 28 61 18 96 05/06/19 03:20 Nasal Cannula 2.0 28 05/06/19 00:00 66 05/06/19 00:00 Nasal Cannula 2.0 Nasal Cannula 2.0 05/06/19 00:00 97.4 62 16 106/65 (79) 92 05/05/19 23:14 63 18 94 Nasal Cannula 2.0 28 05/05/19 23:14 63 18 94 Nasal Cannula 2.0 28 05/05/19 23:12 68 18 96 Nasal Cannula 2.0 28 63 18 94 05/05/19 21:26 94 05/05/19 20:00 98.0 77 20 103/64 (77) 91 05/05/19 20:00 Nasal Cannula 2.0 Nasal Cannula 2.0 05/05/19 20:00 77 05/05/19 19:36 80 20 97 Nasal Cannula 1.0 24 76 20 92 05/05/19 19:35 Nasal Cannula 1.0 24 05/05/19 19:35 Nasal Cannula 1.0 24 05/05/19 19:00 76 05/05/19 18:00 Nasal Cannula 2.0 Nasal Cannula 2.0 05/05/19 16:00 Nasal Cannula 2.0 Nasal Cannula 2.0 05/05/19 16:00 98.6 82 38 128/85 (99) 100 05/05/19 16:00 80 05/05/19 15:45 88 20 99 Nasal Cannula 1.0 24 83 22 97 05/05/19 15:44 85 20 99 Nasal Cannula 1.0 24 05/05/19 15:44 89 22 100 Nasal Cannula 1.0 24 05/05/19 15:00 79 19 131/84 (100) 97 05/05/19 14:00 86 19 127/85 (99) 91 05/05/19 13:00 85 23 115/60 (78) 96 05/05/19 12:00 98.3 85 23 115/60 (78) 96 05/05/19 12:00 79 05/05/19 12:00 Nasal Cannula 2.0 Nasal Cannula 2.0 Intake and Output 05/05/19 05/06/19 18:59 06:59 Intake Total 1190 ml 1360 ml Output Total 1160 ml 1500 ml Balance 30 ml -140 ml Intake Oral 840 ml 480 ml IV Total 350 ml 880 ml Output Urine Total 1160 ml 1500 ml Current Medications Medications (Trade) Dose Ordered Sig/William Route PRN Reason Start Time Stop Time Status Last Admin Dose Admin Acetaminophen (Tylenol) 650 mg Q6H PRN NG Mild Pain/Temp > 100.5 05/05/19 18:00 06/01/19 17:59 05/06/19 06:07 Albuterol/ Ipratropium (Albuterol/ Ipratropium) 3 ml Q4H PRN HHN Shortness of Breath 05/05/19 18:00 05/07/19 17:59 Albuterol/ Ipratropium (Albuterol/ Ipratropium) 3 ml Q4HRT HHN 05/05/19 19:00 05/07/19 22:59 05/06/19 06:37 Allopurinol (allopurinoL) 300 mg DAILY NG 05/06/19 09:00 06/04/19 08:59 05/06/19 08:20 Barium Sulfate (Varibar Honey) 250 ml NOW PRN MC RAD 05/05/19 18:00 05/07/19 17:59 Barium Sulfate (Varibar [place]) 240 ml NOW PRN MC RAD 05/05/19 18:00 05/07/19 17:59 Barium Sulfate (Varibar Pudding) 230 ml NOW PRN MC RAD 05/05/19 18:00 05/07/19 17:59 Chlorhexidine Gluconate (Genevieve-Hex 2%) 1 applic DAILY@2000 TOPIC 05/05/19 20:00 06/04/19 19:59 05/05/19 20:20 Dextrose (Dextrose 50%) 25 ml Q30M PRN IV Hypoglycemia 05/05/19 17:45 06/01/19 20:44 Dextrose (Dextrose 50%) 50 ml Q30M PRN IV Hypoglycemia 05/05/19 17:45 06/01/19 20:44 Gabapentin (Neurontin) 200 mg THREE TIMES A DAY NG 05/05/19 18:00 06/02/19 17:59 05/06/19 08:33 Heparin Sodium (Porcine) (Heparin 5000 units/ml) 5,000 units EVERY 12 HOURS SUBQ 05/05/19 21:00 06/01/19 20:59 05/06/19 08:35 Heparin Sodium/ Sodium Chloride (Heparin 1000 units/500ml Premix) 1,000 unit ONCE PRN IV picc line placement 05/05/19 17:45 05/07/19 17:44 Insulin Aspart (NovoLOG) Q6HR SUBQ 05/05/19 18:00 3/5/20 00:00 Lacosamide (Vimpat) 100 mg DAILY ORAL 05/06/19 09:00 06/03/19 08:59 05/06/19 08:20 Levetiracetam (Keppra) 250 mg Q12HR NG 05/05/19 21:00 06/02/19 20:59 05/06/19 08:19 Lidocaine HCl (Xylocaine 1% 30ml) 30 ml ONCE PRN INJ picc line placement 05/05/19 17:45 05/07/19 17:44 Lorazepam (Ativan 2mg/ml 1ml) 0.5 mg Q2H PRN IV Agitation 05/05/19 18:00 05/09/19 17:59 Meropenem 500 mg/ Sodium Chloride 55 ml @ 110 mls/hr EVERY 12 HOURS IVPB 05/05/19 21:00 05/09/19 11:59 05/06/19 08:19 Methylprednisolone Sodium Succinate (Solu-MEDROL) 40 mg Q12HR IVP 05/06/19 09:00 06/01/19 21:59 05/06/19 08:17 Olanzapine (ZyPREXA) 5 mg BEDTIME ORAL 05/05/19 21:00 06/04/19 20:59 05/05/19 21:17 Pantoprazole (Protonix) 40 mg EVERY 12 HOURS ORAL 05/05/19 21:00 06/04/19 20:59 05/06/19 08:20 Sodium Chloride 1,000 ml @ 75 mls/hr [id number] IV 05/05/19 17:45 06/04/19 09:44 05/06/19 08:05 Sodium Citrate (Bicitra) 30 ml BID ORAL 05/05/19 18:00 06/03/19 09:44 05/06/19 08:19 Laboratory Tests 05/06/19 04:15: White Blood Count 14.2H, Red Blood Count 2.63L, Hemoglobin 8.6L, Hematocrit 24.9L, Mean Corpuscular Volume 94, Mean Corpuscular Hemoglobin 32.7H, Mean Corpuscular Hemoglobin Concent 34.6, Red Cell Distribution Width 14.4, Platelet Count 356, Mean Platelet Volume 5.1L, Neutrophils (%) (Auto) 80.3H, Lymphocytes (%) (Auto) 8.8L, Monocytes (%) (Auto) 7.8, Eosinophils (%) (Auto) 1.8, Basophils (%) (Auto) 1.2, Sodium Level 141, Potassium Level 4.1, Chloride Level 107, Carbon Dioxide Level 24, Anion Gap 10, Blood Urea Nitrogen 80H, Creatinine 2.3H, Estimat Glomerular Filtration Rate 21.9, Glucose Level 125H, Uric Acid 7.9H, Calcium Level 8.9, Phosphorus Level 4.6, Magnesium Level 2.3, Total Bilirubin 0.3, Aspartate Amino Transf (AST/SGOT) 18, Alanine Aminotransferase ( ALT/SGPT) 20, Alkaline Phosphatase 60, Total Protein 7.0, Albumin 1.9L, Globulin 5.1, Albumin/Globulin Ratio 0.4L Height (Feet): 5 Height (Inches): 3.00 Weight (Pounds): 195 General Appearance: no apparent distress Cardiovascular: normal rate Respiratory/Chest: decreased breath sounds Abdomen: soft Genitourinary/Rectal: normal prostate exam - bag on nephrostomy site, other - left nephrostomy Derrell Hatch MD May 06, 2019 11:50
--- NOTE | 2019-05-06 11:50 | Infectious Diseases Prog Note ---
Assessment/Plan Assessment/Plan IMPRESSION: E. coli sepsis E. coli ESBL UTI, E. coli pneumonia, Acute respiratory failure COPD, anemia, acute renal failure, chronic kidney disease, Right hydronephrosis, Sacral ulcer. RECOMMENDATION: Continue Meropenem Subjective ROS Limited/Unobtainable: Yes Constitutional: Reports: other - doing better, transferred from ICU to step down unit; Denies: fever Allergies: Coded Allergies: Grits (Unverified Allergy, Unknown, 07/06/17) [place] (Unverified Allergy, Unknown, 07/06/17) Objective Vital Signs Last 24 Hour Vital Signs Date Time Temp Pulse Resp B/P (MAP) Pulse Ox O2 Delivery O2 Flow Rate FiO2 05/06/19 11:17 96.8 79 18 135/85 (102) 95 05/06/19 08:11 84 05/06/19 08:00 Nasal Cannula 2.0 Nasal Cannula 2.0 05/06/19 08:00 96.8 80 18 149/83 (105) 95 05/06/19 06:38 Nasal Cannula 2.0 28 05/06/19 06:38 75 20 98 Nasal Cannula 2.0 28 73 20 96 05/06/19 06:37 Nasal Cannula 2.0 28 05/06/19 04:00 97.0 64 18 117/74 (88) 96 05/06/19 04:00 Nasal Cannula 2.0 Nasal Cannula 2.0 05/06/19 04:00 66 05/06/19 03:21 Nasal Cannula 2.0 28 05/06/19 03:21 65 18 98 Nasal Cannula 2.0 28 61 18 96 05/06/19 03:20 Nasal Cannula 2.0 28 05/06/19 00:00 66 05/06/19 00:00 Nasal Cannula 2.0 Nasal Cannula 2.0 05/06/19 00:00 97.4 62 16 106/65 (79) 92 05/05/19 23:14 63 18 94 Nasal Cannula 2.0 28 05/05/19 23:14 63 18 94 Nasal Cannula 2.0 28 05/05/19 23:12 68 18 96 Nasal Cannula 2.0 28 63 18 94 05/05/19 21:26 94 05/05/19 20:00 98.0 77 20 103/64 (77) 91 05/05/19 20:00 Nasal Cannula 2.0 Nasal Cannula 2.0 2/6/20 20:00 77 05/05/19 19:36 80 20 97 Nasal Cannula 1.0 24 76 20 92 05/05/19 19:35 Nasal Cannula 1.0 24 05/05/19 19:35 Nasal Cannula 1.0 24 05/05/19 19:00 76 05/05/19 18:00 Nasal Cannula 2.0 Nasal Cannula 2.0 05/05/19 16:00 Nasal Cannula 2.0 Nasal Cannula 2.0 05/05/19 16:00 98.6 82 38 128/85 (99) 100 05/05/19 16:00 80 05/05/19 15:45 88 20 99 Nasal Cannula 1.0 24 83 22 97 05/05/19 15:44 85 20 99 Nasal Cannula 1.0 24 05/05/19 15:44 89 22 100 Nasal Cannula 1.0 24 05/05/19 15:00 79 19 131/84 (100) 97 05/05/19 14:00 86 19 127/85 (99) 91 05/05/19 13:00 85 23 115/60 (78) 96 05/05/19 12:00 98.3 85 23 115/60 (78) 96 05/05/19 12:00 79 05/05/19 12:00 Nasal Cannula 2.0 Nasal Cannula 2.0 Height (Feet): 5 Height (Inches): 3.00 Weight (Pounds): 195 General Appearance: no acute distress HEENT: mucous membranes moist Respiratory/Chest: lungs clear, other - oxygen by nasal cannula Cardiovascular: normal rate Abdomen: soft, non tender Extremities: no edema, other - Left BKA Neurologic/Psychiatric: other - sleeping Microbiology Date/Time Source Procedure Growth Status 05/03/19 13:25 Nasal Nares - Final Complete 05/03/19 13:25 Nasal Nares - Final Complete 05/03/19 13:25 Sputum Gram Stain - Final Complete 05/03/19 13:25 Sputum Culture - Final Escherichia Coli - Esbl Complete Laboratory Tests Test 05/06/19 04:15 White Blood Count 14.2 K/UL (4.8-10.8) H Red Blood Count 2.63 M/UL (4.20-5.40) L Hemoglobin 8.6 G/DL (12.0-16.0) L Hematocrit 24.9 % (37.0-47.0) L Mean Corpuscular Volume 94 FL (80-99) Mean Corpuscular Hemoglobin 32.7 PG (27.0-31.0) H Mean Corpuscular Hemoglobin Concent 34.6 G/DL (32.0-36.0) Red Cell Distribution Width 14.4 % (11.6-14.8) Platelet Count 356 K/UL (150-450) Mean Platelet Volume 5.1 FL (6.5-10.1) L Neutrophils (%) (Auto) 80.3 % (45.0-75.0) H Lymphocytes (%) (Auto) 8.8 % (20.0-45.0) L Monocytes (%) (Auto) 7.8 % (1.0-10.0) Eosinophils (%) (Auto) 1.8 % (0.0-3.0) Basophils (%) (Auto) 1.2 % (0.0-2.0) Sodium Level 141 MMOL/L (136-145) Potassium Level 4.1 MMOL/L (3.5-5.1) Chloride Level 107 MMOL/L (98-107) Carbon Dioxide Level 24 MMOL/L (21-32) Anion Gap 10 mmol/L (5-15) Blood Urea Nitrogen 80 mg/dL (7-18) H Creatinine 2.3 MG/DL (0.55-1.30) H Estimat Glomerular Filtration Rate 21.9 mL/min (>60) Glucose Level 125 MG/DL (74-106) H Uric Acid 7.9 MG/DL (2.6-7.2) H Calcium Level 8.9 MG/DL (8.5-10.1) Phosphorus Level 4.6 MG/DL (2.5-4.9) Magnesium Level 2.3 MG/DL (1.8-2.4) Total Bilirubin 0.3 MG/DL (0.2-1.0) Aspartate Amino Transf (AST/SGOT) 18 U/L (15-37) Alanine Aminotransferase (ALT/SGPT) 20 U/L (12-78) Alkaline Phosphatase 60 U/L (46-116) Total Protein 7.0 G/DL (6.4-8.2) Albumin 1.9 G/DL (3.4-5.0) L Globulin 5.1 g/dL Albumin/Globulin Ratio 0.4 (1.0-2.7) L Current Medications Medications (Trade) Dose Ordered Sig/William Route PRN Reason Start Time Stop Time Status Last Admin Dose Admin Acetaminophen (Tylenol) 650 mg Q6H PRN NG Mild Pain/Temp > 100.5 05/05/19 18:00 06/01/19 17:59 05/06/19 06:07 Albuterol/ Ipratropium (Albuterol/ Ipratropium) 3 ml Q4H PRN HHN Shortness of Breath 05/05/19 18:00 05/07/19 17:59 Albuterol/ Ipratropium (Albuterol/ Ipratropium) 3 ml Q4HRT HHN 05/05/19 19:00 05/07/19 22:59 05/06/19 06:37 Allopurinol (allopurinoL) 300 mg DAILY NG 05/06/19 09:00 06/04/19 08:59 05/06/19 08:20 Barium Sulfate (Varibar Honey) 250 ml NOW PRN MC RAD 05/05/19 18:00 05/07/19 17:59 Barium Sulfate (Varibar Urich) 240 ml NOW PRN MC RAD 05/05/19 18:00 05/07/19 17:59 Barium Sulfate (Varibar Pudding) 230 ml NOW PRN MC RAD 05/05/19 18:00 05/07/19 17:59 Chlorhexidine Gluconate (Genevieve-Hex 2%) 1 applic DAILY@2000 TOPIC 05/05/19 20:00 06/04/19 19:59 05/05/19 20:20 Dextrose (Dextrose 50%) 25 ml Q30M PRN IV Hypoglycemia 05/05/19 17:45 06/01/19 20:44 Dextrose (Dextrose 50%) 50 ml Q30M PRN IV Hypoglycemia 05/05/19 17:45 06/01/19 20:44 Gabapentin (Neurontin) 200 mg THREE TIMES A DAY NG 05/05/19 18:00 06/02/19 17:59 05/06/19 08:33 Heparin Sodium (Porcine) (Heparin 5000 units/ml) 5,000 units EVERY 12 HOURS SUBQ 05/05/19 21:00 06/01/19 20:59 05/06/19 08:35 Heparin Sodium/ Sodium Chloride (Heparin 1000 units/500ml Premix) 1,000 unit ONCE PRN IV picc line placement 05/05/19 17:45 05/07/19 17:44 Insulin Aspart (NovoLOG) Q6HR SUBQ 05/05/19 18:00 06/02/19 00:00 Lacosamide (Vimpat) 100 mg DAILY ORAL 05/06/19 09:00 06/03/19 08:59 05/06/19 08:20 Levetiracetam (Keppra) 250 mg Q12HR NG 05/05/19 21:00 06/02/19 20:59 05/06/19 08:19 Lidocaine HCl (Xylocaine 1% 30ml) 30 ml ONCE PRN INJ picc line placement 05/05/19 17:45 05/07/19 17:44 Lorazepam (Ativan 2mg/ml 1ml) 0.5 mg Q2H PRN IV Agitation 05/05/19 18:00 05/09/19 17:59 Meropenem 500 mg/ Sodium Chloride 55 ml @ 110 mls/hr EVERY 12 HOURS IVPB 05/05/19 21:00 05/09/19 11:59 05/06/19 08:19 Methylprednisolone Sodium Succinate (Solu-MEDROL) 40 mg Q12HR IVP 05/06/19 09:00 06/01/19 21:59 05/06/19 08:17 Olanzapine (ZyPREXA) 5 mg BEDTIME ORAL 05/05/19 21:00 06/04/19 20:59 05/05/19 21:17 Pantoprazole (Protonix) 40 mg EVERY 12 HOURS ORAL 05/05/19 21:00 06/04/19 20:59 05/06/19 08:20 Sodium Chloride 1,000 ml @ 75 mls/hr [id number] IV 05/05/19 17:45 06/04/19 09:44 05/06/19 08:05 Sodium Citrate (Bicitra) 30 ml BID ORAL 05/05/19 18:00 06/03/19 09:44 05/06/19 08:19 Jose Solis MD May 06, 2019 11:50
--- NOTE | 2019-05-06 14:17 | General Progress Note ---
Assessment/Plan Status: progressing, unchanged Assessment/Plan: Assessment - Resp failure - resolved - anemia - PVD Recommendations - PO trial - Follow labs - abx Subjective Allergies: Coded Allergies: Grits (Unverified Allergy, Unknown, 07/06/17) [place] (Unverified Allergy, Unknown, 07/06/17) Subjective Feels OK no abdominal symptoms Objective Last 24 Hour Vital Signs Date Time Temp Pulse Resp B/P (MAP) Pulse Ox O2 Delivery O2 Flow Rate FiO2 05/06/19 12:00 Nasal Cannula 2.0 Nasal Cannula 2.0 05/06/19 11:55 68 18 95 Nasal Cannula 2.0 28 63 16 92 05/06/19 11:55 Nasal Cannula 2.0 28 05/06/19 11:55 Nasal Cannula 2.0 28 05/06/19 11:26 74 05/06/19 11:17 96.8 79 18 135/85 (102) 95 05/06/19 08:11 84 05/06/19 08:00 Nasal Cannula 2.0 Nasal Cannula 2.0 05/06/19 08:00 96.8 80 18 149/83 (105) 95 05/06/19 06:38 Nasal Cannula 2.0 28 05/06/19 06:38 75 20 98 Nasal Cannula 2.0 28 73 20 96 05/06/19 06:37 Nasal Cannula 2.0 28 05/06/19 04:00 97.0 64 18 117/74 (88) 96 05/06/19 04:00 Nasal Cannula 2.0 Nasal Cannula 2.0 05/06/19 04:00 66 05/06/19 03:21 Nasal Cannula 2.0 28 05/06/19 03:21 65 18 98 Nasal Cannula 2.0 28 61 18 96 05/06/19 03:20 Nasal Cannula 2.0 28 05/06/19 00:00 66 05/06/19 00:00 Nasal Cannula 2.0 Nasal Cannula 2.0 05/06/19 00:00 97.4 62 16 106/65 (79) 92 05/05/19 23:14 63 18 94 Nasal Cannula 2.0 28 05/05/19 23:14 63 18 94 Nasal Cannula 2.0 28 05/05/19 23:12 68 18 96 Nasal Cannula 2.0 28 63 18 94 05/05/19 21:26 94 05/05/19 20:00 98.0 77 20 103/64 (77) 91 05/05/19 20:00 Nasal Cannula 2.0 Nasal Cannula 2.0 05/05/19 20:00 77 05/05/19 19:36 80 20 97 Nasal Cannula 1.0 24 76 20 92 05/05/19 19:35 Nasal Cannula 1.0 24 05/05/19 19:35 Nasal Cannula 1.0 24 05/05/19 19:00 76 05/05/19 18:00 Nasal Cannula 2.0 Nasal Cannula 2.0 05/05/19 16:00 Nasal Cannula 2.0 Nasal Cannula 2.0 05/05/19 16:00 98.6 82 38 128/85 (99) 100 05/05/19 16:00 80 05/05/19 15:45 88 20 99 Nasal Cannula 1.0 24 83 22 97 05/05/19 15:44 85 20 99 Nasal Cannula 1.0 24 05/05/19 15:44 89 22 100 Nasal Cannula 1.0 24 05/05/19 15:00 79 19 131/84 (100) 97 Intake and Output 05/05/19 05/06/19 19:00 07:00 Intake Total 1190 ml 1360 ml Output Total 1030 ml 1500 ml Balance 160 ml -140 ml Intake Oral 840 ml 480 ml IV Total 350 ml 880 ml Output Urine Total 1030 ml 1500 ml Laboratory Tests 05/06/19 04:15: White Blood Count 14.2H, Red Blood Count 2.63L, Hemoglobin 8.6L, Hematocrit 24.9L, Mean Corpuscular Volume 94, Mean Corpuscular Hemoglobin 32.7H, Mean Corpuscular Hemoglobin Concent 34.6, Red Cell Distribution Width 14.4, Platelet Count 356, Mean Platelet Volume 5.1L, Neutrophils (%) (Auto) 80.3H, Lymphocytes (%) (Auto) 8.8L, Monocytes (%) (Auto) 7.8, Eosinophils (%) (Auto) 1.8, Basophils (%) (Auto) 1.2, Sodium Level 141, Potassium Level 4.1, Chloride Level 107, Carbon Dioxide Level 24, Anion Gap 10, Blood Urea Nitrogen 80H, Creatinine 2.3H, Estimat Glomerular Filtration Rate 21.9, Glucose Level 125H, Uric Acid 7.9H, Calcium Level 8.9, Phosphorus Level 4.6, Magnesium Level 2.3, Total Bilirubin 0.3, Aspartate Amino Transf (AST/SGOT) 18, Alanine Aminotransferase ( ALT/SGPT) 20, Alkaline Phosphatase 60, Total Protein 7.0, Albumin 1.9L, Globulin 5.1, Albumin/Globulin Ratio 0.4L Height (Feet): 5 Height (Inches): 3.00 Weight (Pounds): 195 Objective WDWN NCAT supple CTA RR abd soft no edema, (+) Landon Mckeon MD May 06, 2019 14:17
--- NOTE | 2019-05-06 14:54 | Pulmonolgy Critical Care Note ---
Critical Care - Asmt/Plan Assessment/Plan: Pulmonary Progress Note HPI This patient is a 58 year old woman with past history of Chronic Obstructive Pulmonary Disease, Seizures, Previous CVA/TIA, Hypertension, CAD, Cervical cancer s/p Uropathy - has B/L Nephrostomy tubes, Chronic kidney disease, Peripheral vascular disease sp LLE amputation, Schizophrenia, [facility] with shortness of breath, fever, N/V and hypoxemia. Self extubated, on BiPAP PRN Persistent hyperchloremic metabolic acidosis Hematology following for anemia UTI - ESBL GNR, pos BC for GNR Has femoral line - PICC could not be inserted, denies SOB Allergies: Grits [place] Past Medical History: see triage record, old chart reviewed, HTN, CAD, asthma, COPD, GERD, CVA/TIA, seizures, psych hx - schizophrenia, renal disease, other - cervical ca s/p obstructive uropathy s/p BL nephrostomy tubes, muscle weakness Past Surgical History: other - L. BKA Social History: Denies: smoking, alcohol use, drug use All Other Systems: negative except mentioned in HPI Physical Exam Vital Signs Noted General Appearance: no apparent distress, awake, non-toxic Head: normocephalic, atraumatic Eyes: bilateral eye normal inspection, bilateral eye PERRL ENT: hearing grossly normal, normal pharynx Neck: full range of motion, supple/symm/no masses Respiratory: chest non-tender, CTAB Cardiovascular: regular rate, rhythm, HS1, HS2 normal, no edema Gastrointestinal: normal bowel sounds, non tender, soft, non-distended, no guarding, no rebound Rectal: deferred Musculoskeletal: back normal, normal range of motion, non-tender, other - L. 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 Organism 1 ESCHERICHIA COLI - ESBL COLONY COUNT: >100,000 CFU/ML ESCCOL ESB M.I.C. RX --------- --- AMPICILLIN >=32 R CEFAZOLIN >=64 R CEFTAZIDIME R CEFTRIAXONE >=64 R CEFEPIME R CIPROFLOXACIN >=4 R GENTAMICIN <=1 S LEVOFLOXACIN >=8 R IMIPENEM <=0.25 S NITROFURANTOIN <=16 S TIGECYCLINE <=0.5 S TRIMETHOPRIM/SULFA <=20 S AMIKACIN 16 S PIPERACILLIN/TAZOBACTAM 8 S Critical Care - Objective Last 24 Hour Vital Signs Date Time Temp Pulse Resp B/P (MAP) Pulse Ox O2 Delivery O2 Flow Rate FiO2 05/06/19 12:00 Nasal Cannula 2.0 Nasal Cannula 2.0 05/06/19 11:55 68 18 95 Nasal Cannula 2.0 28 63 16 92 05/06/19 11:55 Nasal Cannula 2.0 28 05/06/19 11:55 Nasal Cannula 2.0 28 05/06/19 11:26 74 05/06/19 11:17 96.8 79 18 135/85 (102) 95 05/06/19 08:11 84 05/06/19 08:00 Nasal Cannula 2.0 Nasal Cannula 2.0 05/06/19 08:00 96.8 80 18 149/83 (105) 95 05/06/19 06:38 Nasal Cannula 2.0 28 05/06/19 06:38 75 20 98 Nasal Cannula 2.0 28 73 20 96 05/06/19 06:37 Nasal Cannula 2.0 28 05/06/19 04:00 97.0 64 18 117/74 (88) 96 05/06/19 04:00 Nasal Cannula 2.0 Nasal Cannula 2.0 05/06/19 04:00 66 05/06/19 03:21 Nasal Cannula 2.0 28 05/06/19 03:21 65 18 98 Nasal Cannula 2.0 28 61 18 96 05/06/19 03:20 Nasal Cannula 2.0 28 05/06/19 00:00 66 05/06/19 00:00 Nasal Cannula 2.0 Nasal Cannula 2.0 05/06/19 00:00 97.4 62 16 106/65 (79) 92 05/05/19 23:14 63 18 94 Nasal Cannula 2.0 28 05/05/19 23:14 63 18 94 Nasal Cannula 2.0 28 05/05/19 23:12 68 18 96 Nasal Cannula 2.0 28 63 18 94 05/05/19 21:26 94 05/05/19 20:00 98.0 77 20 103/64 (77) 91 05/05/19 20:00 Nasal Cannula 2.0 Nasal Cannula 2.0 05/05/19 20:00 77 05/05/19 19:36 80 20 97 Nasal Cannula 1.0 24 76 20 92 05/05/19 19:35 Nasal Cannula 1.0 24 05/05/19 19:35 Nasal Cannula 1.0 24 05/05/19 19:00 76 05/05/19 18:00 Nasal Cannula 2.0 Nasal Cannula 2.0 05/05/19 16:00 Nasal Cannula 2.0 Nasal Cannula 2.0 05/05/19 16:00 98.6 82 38 128/85 (99) 100 05/05/19 16:00 80 05/05/19 15:45 88 20 99 Nasal Cannula 1.0 24 83 22 97 05/05/19 15:44 85 20 99 Nasal Cannula 1.0 24 05/05/19 15:44 89 22 100 Nasal Cannula 1.0 24 05/05/19 15:00 79 19 131/84 (100) 97 Accucheck: 115 Critical Care - Subjective ROS Limited/Unobtainable: No Condition: improving IV Access: central EKG Rhythm: Sinus Rhythm FI02: 28 Vent Support Breath Rate: 22 Vent Support Mode: BiLevel Vent Tidal Volume: 450 Sputum Amount: None PEEP: 5.0 PIP: 41 Tube Feeding Amount: 0 I&O: Intake and Output 05/05/19 05/06/19 19:00 07:00 Intake Total 1190 ml 1360 ml Output Total 1030 ml 1500 ml Balance 160 ml -140 ml Intake Oral 840 ml 480 ml IV Total 350 ml 880 ml Output Urine Total 1030 ml 1500 ml ET-Tube: 7.5 ET Position: 22 Gabino Smith MD May 06, 2019 14:54
--- NOTE | 2019-05-06 15:10 | NUR ---
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 96.8 HR 80 RR 18 B/P 149/83 2L NC O2 SAT @ 98% WBC 14.2 BUN 80 CR 2.3 IS: SOLU MEDROL IV MEROPENEM IV IVF NS @ 75ML/HR STEP DOWN STATUS
[2019-05-06 16:38] VITALS: BP 128/80
--- NOTE | 2019-05-06 17:11 | Hematology/Onc Progress Note ---
Assessment/Plan Assessment/Plan Assessment/Plan: # Anemia of chronic disease due to underlying chronic medical issues, multifactorial --> Anemia workup has been ordered, rule out gi bleed and no hemolysis is seen, ferritin is 1551 --> No evidence of hemolysis is noted, peripheral smear has been reviewed. --> Hgb goal >7. Transfuse prn. --> Epogen or iron at this time is not particularly indicated --> Medications have been reviewed --> low threshold for gi evaluation in case has occult + --> hgb trend 11.7-->10.7-->7.4-->7.1-->8.6 # Leukocytosis is likely related to infection, reactive process, v infection v intubation, in past had esbl uti --> have reviewed peripheral smear and bandemia/neutrophilia noted --> continue antibiotics if they have been started by ID team --> monitor for resolution --> wbc trend: 14.2 --> also is on steroids # Left kidney mass -- 5 cm low-attenuation lesion demonstrating slightly higher than normal fluid attenuation coming off of the upper pole left kidney --> likely represents a complex possibly proteinaceous cyst, but necrotic solid mass also possible --> as per uro, appears stable # Dehydration --> ivf have been started --> anti-nausea meds started # S/P BKA (below knee amputation) unilateral --> left leg s/p amputation # Anxiety --> as per psych # Left hydronephrosis --> per uro # Resp failure s/p intubation --> intub 05/02 --> extubated 05/04 # Critically ill requiring icu adm on 05/03 # Dvt ppx heparin sq The timing of this note does not necessarily reflect the time of the patient was seen. Greatly appreciate consultation. Subjective Allergies: Coded Allergies: Grits (Unverified Allergy, Unknown, 07/06/17) [place] (Unverified Allergy, Unknown, 07/06/17) Subjective 05/04: no bleeding or chills, no night sweats, cbc noted, on abx, gett prbc today , consent signed 05/05: has refused bipap, otherwise no bleeding or chills, no night sweats, cbc pending 05/06: awake and alert, no acute distress, h/h stable nc, gillian Objective Objective Current Medications Medications (Trade) Dose Ordered Sig/William Route PRN Reason Start Time Stop Time Status Last Admin Dose Admin Acetaminophen (Tylenol) 650 mg Q6H PRN NG Mild Pain/Temp > 100.5 05/05/19 18:00 06/01/19 17:59 05/06/19 06:07 Albuterol/ Ipratropium (Albuterol/ Ipratropium) 3 ml Q4H PRN HHN Shortness of Breath 05/05/19 18:00 05/07/19 17:59 Albuterol/ Ipratropium (Albuterol/ Ipratropium) 3 ml Q4HRT HHN 05/05/19 19:00 05/07/19 22:59 05/06/19 15:42 Allopurinol (allopurinoL) 300 mg DAILY NG 05/06/19 09:00 06/04/19 08:59 05/06/19 08:20 Barium Sulfate (Varibar Honey) 250 ml NOW PRN MC RAD 05/05/19 18:00 05/07/19 17:59 Barium Sulfate (Varibar Point) 240 ml NOW PRN MC RAD 05/05/19 18:00 05/07/19 17:59 Barium Sulfate (Varibar Pudding) 230 ml NOW PRN MC RAD 05/05/19 18:00 05/07/19 17:59 Chlorhexidine Gluconate (Genevieve-Hex 2%) 1 applic DAILY@2000 TOPIC 05/05/19 20:00 06/04/19 19:59 05/05/19 20:20 Dextrose (Dextrose 50%) 25 ml Q30M PRN IV Hypoglycemia 05/05/19 17:45 06/01/19 20:44 Dextrose (Dextrose 50%) 50 ml Q30M PRN IV Hypoglycemia 05/05/19 17:45 06/01/19 20:44 Gabapentin (Neurontin) 200 mg THREE TIMES A DAY NG 05/05/19 18:00 06/02/19 17:59 05/06/19 12:53 Heparin Sodium (Porcine) (Heparin 5000 units/ml) 5,000 units EVERY 12 HOURS SUBQ 05/05/19 21:00 06/01/19 20:59 05/06/19 08:35 Heparin Sodium/ Sodium Chloride (Heparin 1000 units/500ml Premix) 1,000 unit ONCE PRN IV picc line placement 05/05/19 17:45 05/07/19 17:44 Insulin Aspart (NovoLOG) Q6HR SUBQ 05/05/19 18:00 06/02/19 00:00 Lacosamide (Vimpat) 100 mg DAILY ORAL 05/06/19 09:00 06/03/19 08:59 05/06/19 08:20 Levetiracetam (Keppra) 250 mg Q12HR NG 05/05/19 21:00 06/02/19 20:59 05/06/19 08:19 Lidocaine HCl (Xylocaine 1% 30ml) 30 ml ONCE PRN INJ picc line placement 05/05/19 17:45 05/07/19 17:44 Lorazepam (Ativan 2mg/ml 1ml) 0.5 mg Q2H PRN IV Agitation 05/05/19 18:00 05/09/19 17:59 Meropenem 500 mg/ Sodium Chloride 55 ml @ 110 mls/hr EVERY 12 HOURS IVPB 05/05/19 21:00 05/09/19 11:59 05/06/19 08:19 Methylprednisolone Sodium Succinate (Solu-MEDROL) 40 mg Q12HR IVP 05/06/19 09:00 06/01/19 21:59 05/06/19 08:17 Olanzapine (ZyPREXA) 5 mg BEDTIME ORAL 05/05/19 21:00 06/04/19 20:59 05/05/19 21:17 Pantoprazole (Protonix) 40 mg EVERY 12 HOURS ORAL 05/05/19 21:00 06/04/19 20:59 05/06/19 08:20 Sodium Chloride 1,000 ml @ 75 mls/hr [id number] IV 05/05/19 17:45 06/04/19 09:44 05/06/19 08:05 Sodium Citrate (Bicitra) 30 ml BID ORAL 05/05/19 18:00 06/03/19 09:44 05/06/19 08:19 Last 24 Hour Vital Signs Date Time Temp Pulse Resp B/P (MAP) Pulse Ox O2 Delivery O2 Flow Rate FiO2 05/06/19 16:38 98.2 79 18 128/80 (96) 90 05/06/19 16:00 72 05/06/19 16:00 Nasal Cannula 2.0 Nasal Cannula 2.0 05/06/19 15:42 80 18 95 Nasal Cannula 2.0 28 05/06/19 15:42 75 17 97 Nasal Cannula 2.0 28 80 18 95 05/06/19 15:42 71 16 95 Nasal Cannula 2.0 28 05/06/19 12:00 Nasal Cannula 2.0 Nasal Cannula 2.0 05/06/19 11:55 68 18 95 Nasal Cannula 2.0 28 63 16 92 05/06/19 11:55 Nasal Cannula 2.0 28 05/06/19 11:55 Nasal Cannula 2.0 28 05/06/19 11:26 74 05/06/19 11:17 96.8 79 18 135/85 (102) 95 05/06/19 08:11 84 05/06/19 08:00 Nasal Cannula 2.0 Nasal Cannula 2.0 05/06/19 08:00 96.8 80 18 149/83 (105) 95 05/06/19 06:38 Nasal Cannula 2.0 28 05/06/19 06:38 75 20 98 Nasal Cannula 2.0 28 73 20 96 05/06/19 06:37 Nasal Cannula 2.0 28 05/06/19 04:00 97.0 64 18 117/74 (88) 96 05/06/19 04:00 Nasal Cannula 2.0 Nasal Cannula 2.0 05/06/19 04:00 66 05/06/19 03:21 Nasal Cannula 2.0 28 05/06/19 03:21 65 18 98 Nasal Cannula 2.0 28 61 18 96 05/06/19 03:20 Nasal Cannula 2.0 28 05/06/19 00:00 66 05/06/19 00:00 Nasal Cannula 2.0 Nasal Cannula 2.0 05/06/19 00:00 97.4 62 16 106/65 (79) 92 05/05/19 23:14 63 18 94 Nasal Cannula 2.0 28 05/05/19 23:14 63 18 94 Nasal Cannula 2.0 28 05/05/19 23:12 68 18 96 Nasal Cannula 2.0 28 63 18 94 05/05/19 21:26 94 05/05/19 20:00 98.0 77 20 103/64 (77) 91 05/05/19 20:00 Nasal Cannula 2.0 Nasal Cannula 2.0 05/05/19 20:00 77 05/05/19 19:36 80 20 97 Nasal Cannula 1.0 24 76 20 92 05/05/19 19:35 Nasal Cannula 1.0 24 05/05/19 19:35 Nasal Cannula 1.0 24 05/05/19 19:00 76 05/05/19 18:00 Nasal Cannula 2.0 Nasal Cannula 2.0 05/05/19 16:00 Nasal Cannula 2.0 Nasal Cannula 2.0 05/05/19 16:00 98.6 82 38 128/85 (99) 100 05/05/19 16:00 80 05/05/19 15:45 88 20 99 Nasal Cannula 1.0 24 83 22 97 05/05/19 15:44 85 20 99 Nasal Cannula 1.0 24 05/05/19 15:44 89 22 100 Nasal Cannula 1.0 24 05/05/19 15:00 79 19 131/84 (100) 97 05/05/19 14:00 86 19 127/85 (99) 91 05/05/19 13:00 85 23 115/60 (78) 96 05/05/19 12:00 98.3 85 23 115/60 (78) 96 05/05/19 12:00 79 05/05/19 12:00 Nasal Cannula 2.0 Nasal Cannula 2.0 05/05/19 11:10 Nasal Cannula 1.0 24 05/05/19 11:10 Nasal Cannula 1.0 24 05/05/19 11:00 88 123/77 (92) 05/05/19 10:00 89 24 149/97 (114) 95 05/05/19 09:00 79 19 124/75 (91) 96 05/05/19 08:00 Nasal Cannula 2.0 Nasal Cannula 2.0 05/05/19 08:00 78 28 116/68 (84) 96 05/05/19 08:00 98.4 05/05/19 08:00 79 05/05/19 07:17 Nasal Cannula 1.0 24 05/05/19 07:17 Nasal Cannula 1.0 24 05/05/19 07:17 73 16 99 Nasal Cannula 1.0 24 77 16 96 05/05/19 07:00 76 17 117/72 (87) 94 05/05/19 06:00 87 34 100/77 (85) 90 05/05/19 05:00 91 17 107/55 (72) 95 05/05/19 04:00 98.8 76 20 122/78 (93) 96 05/05/19 04:00 81 05/05/19 04:00 Mechanical Ventilator 2.0 Nasal Cannula 05/05/19 03:42 Nasal Cannula 1.0 24 05/05/19 03:42 Nasal Cannula 1.0 24 05/05/19 03:34 76 16 100 Nasal Cannula 1.0 24 73 14 100 05/05/19 03:00 83 24 152/93 (112) 98 05/05/19 02:00 76 16 143/103 (116) 97 05/05/19 01:00 72 16 114/71 (85) 97 05/05/19 00:00 82 05/05/19 00:00 98.4 72 14 111/68 (82) 97 05/05/19 00:00 Mechanical Ventilator 2.0 Nasal Cannula 05/04/19 23:49 Nasal Cannula 1.0 24 05/04/19 23:49 Nasal Cannula 1.0 24 05/04/19 23:11 70 15 100 Nasal Cannula 1.0 24 71 14 98 05/04/19 23:00 68 14 106/73 (84) 99 05/04/19 22:00 76 15 106/62 (77) 99 05/04/19 21:00 78 15 129/74 (92) 99 05/04/19 20:00 98.8 91 17 111/66 (81) 99 05/04/19 20:00 78 17 130/77 (94) 97 05/04/19 20:00 Mechanical Ventilator 2.0 Nasal Cannula 05/04/19 19:43 104 21 100 Nasal Cannula 1.0 24 05/04/19 19:40 99 19 100 Nasal Cannula 1.0 24 05/04/19 19:37 79 17 100 Nasal Cannula 1.0 24 77 15 98 05/04/19 19:30 80 17 141/88 (105) 98 05/04/19 19:00 79 19 137/84 (101) 99 05/04/19 18:00 81 18 133/90 (104) 99 Intake and Output 05/05/19 05/06/19 18:59 06:59 Intake Total 1190 ml 1360 ml Output Total 1160 ml 1500 ml Balance 30 ml -140 ml Intake Oral 840 ml 480 ml IV Total 350 ml 880 ml Output Urine Total 1160 ml 1500 ml Labs Test 05/04/19 04:30 05/04/19 08:23 05/04/19 10:41 05/05/19 04:00 White Blood Count 13.0 K/UL (4.8-10.8) 15.6 K/UL (4.8-10.8) Red Blood Count 2.18 M/UL (4.20-5.40) 2.63 M/UL (4.20-5.40) Hemoglobin 7.1 G/DL (12.0-16.0) 8.7 G/DL (12.0-16.0) Hematocrit 21.0 % (37.0-47.0) 25.0 % (37.0-47.0) Mean Corpuscular Volume 96 FL (80-99) 95 FL (80-99) Mean Corpuscular Hemoglobin 32.6 PG (27.0-31.0) 33.0 PG (27.0-31.0) Mean Corpuscular Hemoglobin Concent 33.9 G/DL (32.0-36.0) 34.8 G/DL (32.0-36.0) Red Cell Distribution Width 14.9 % (11.6-14.8) 14.3 % (11.6-14.8) Platelet Count 277 K/UL (150-450) 338 K/UL (150-450) Mean Platelet Volume 5.6 FL (6.5-10.1) 4.8 FL (6.5-10.1) Neutrophils (%) (Auto) % (45.0-75.0) 84.5 % (45.0-75.0) Lymphocytes (%) (Auto) % (20.0-45.0) 5.8 % (20.0-45.0) Monocytes (%) (Auto) % (1.0-10.0) 6.8 % (1.0-10.0) Eosinophils (%) (Auto) % (0.0-3.0) 2.4 % (0.0-3.0) Basophils (%) (Auto) % (0.0-2.0) 0.6 % (0.0-2.0) Sodium Level 146 MMOL/L (136-145) 144 MMOL/L (136-145) Potassium Level 3.6 MMOL/L (3.5-5.1) 3.6 MMOL/L (3.5-5.1) Chloride Level 115 MMOL/L (98-107) 109 MMOL/L (98-107) Carbon Dioxide Level 19 MMOL/L (21-32) 23 MMOL/L (21-32) Anion Gap 12 mmol/L (5-15) 12 mmol/L (5-15) Blood Urea Nitrogen 102 mg/dL (7-18) 82 mg/dL (7-18) Creatinine 3.6 MG/DL (0.55-1.30) 2.6 MG/DL (0.55-1.30) Estimat Glomerular Filtration Rate 13.1 mL/min (>60) 19.0 mL/min (>60) Glucose Level 201 MG/DL (74-106) 128 MG/DL (74-106) Lactic Acid Level 1.00 mmol/L (0.4-2.0) Uric Acid 13.0 MG/DL (2.6-7.2) 9.6 MG/DL (2.6-7.2) Calcium Level 9.0 MG/DL (8.5-10.1) 8.9 MG/DL (8.5-10.1) Phosphorus Level 5.1 MG/DL (2.5-4.9) 4.0 MG/DL (2.5-4.9) Magnesium Level 2.1 MG/DL (1.8-2.4) 1.4 MG/DL (1.8-2.4) Total Bilirubin 0.2 MG/DL (0.2-1.0) 0.3 MG/DL (0.2-1.0) Aspartate Amino Transf (AST/SGOT) 26 U/L (15-37) 20 U/L (15-37) Alanine Aminotransferase (ALT/SGPT) 26 U/L (12-78) 24 U/L (12-78) Alkaline Phosphatase 64 U/L (46-116) 63 U/L (46-116) C-Reactive Protein, Quantitative 15.7 mg/dL (0.00-0.90) Pro-B-Type Natriuretic Peptide 1456 pg/mL (0-125) Total Protein 7.3 G/DL (6.4-8.2) 7.3 G/DL (6.4-8.2) Albumin 1.9 G/DL (3.4-5.0) 1.9 G/DL (3.4-5.0) Globulin 5.4 g/dL 5.4 g/dL Albumin/Globulin Ratio 0.4 (1.0-2.7) 0.4 (1.0-2.7) Arterial Blood pH 7.263 (7.350-7.450) 7.278 (7.350-7.450) Arterial Blood Partial Pressure CO2 41.4 mmHg (35.0-45.0) 40.1 mmHg (35.0-45.0) Arterial Blood Partial Pressure O2 83.2 mmHg (75.0-100.0) 107.6 mmHg (75.0-100.0) Arterial Blood HCO3 18.3 mmol/L (22.0-26.0) 18.3 mmol/L (22.0-26.0) Arterial Blood Oxygen Saturation 94.8 % (95-100) 97.6 % (95-100) Arterial Blood Base Excess -8.2 (-2-2) -7.8 (-2-2) Miguel Angel Test Positive Positive Troponin I 0.000 ng/mL (0.000-0.056) Test 05/06/19 04:15 05/06/19 14:55 White Blood Count 14.2 K/UL (4.8-10.8) Red Blood Count 2.63 M/UL (4.20-5.40) Hemoglobin 8.6 G/DL (12.0-16.0) Hematocrit 24.9 % (37.0-47.0) Mean Corpuscular Volume 94 FL (80-99) Mean Corpuscular Hemoglobin 32.7 PG (27.0-31.0) Mean Corpuscular Hemoglobin Concent 34.6 G/DL (32.0-36.0) Red Cell Distribution Width 14.4 % (11.6-14.8) Platelet Count 356 K/UL (150-450) Mean Platelet Volume 5.1 FL (6.5-10.1) Neutrophils (%) (Auto) 80.3 % (45.0-75.0) Lymphocytes (%) (Auto) 8.8 % (20.0-45.0) Monocytes (%) (Auto) 7.8 % (1.0-10.0) Eosinophils (%) (Auto) 1.8 % (0.0-3.0) Basophils (%) (Auto) 1.2 % (0.0-2.0) Sodium Level 141 MMOL/L (136-145) Potassium Level 4.1 MMOL/L (3.5-5.1) Chloride Level 107 MMOL/L (98-107) Carbon Dioxide Level 24 MMOL/L (21-32) Anion Gap 10 mmol/L (5-15) Blood Urea Nitrogen 80 mg/dL (7-18) Creatinine 2.3 MG/DL (0.55-1.30) Estimat Glomerular Filtration Rate 21.9 mL/min (>60) Glucose Level 125 MG/DL (74-106) Uric Acid 7.9 MG/DL (2.6-7.2) Calcium Level 8.9 MG/DL (8.5-10.1) Phosphorus Level 4.6 MG/DL (2.5-4.9) Magnesium Level 2.3 MG/DL (1.8-2.4) Total Bilirubin 0.3 MG/DL (0.2-1.0) Aspartate Amino Transf (AST/SGOT) 18 U/L (15-37) Alanine Aminotransferase (ALT/SGPT) 20 U/L (12-78) Alkaline Phosphatase 60 U/L (46-116) Total Protein 7.0 G/DL (6.4-8.2) Albumin 1.9 G/DL (3.4-5.0) Globulin 5.1 g/dL Albumin/Globulin Ratio 0.4 (1.0-2.7) Arterial Blood pH 7.401 (7.350-7.450) Arterial Blood Partial Pressure CO2 35.2 mmHg (35.0-45.0) Arterial Blood Partial Pressure O2 59.3 mmHg (75.0-100.0) Arterial Blood HCO3 21.4 mmol/L (22.0-26.0) Arterial Blood Oxygen Saturation 89.9 % (95-100) Arterial Blood Base Excess -3.0 (-2-2) Miguel Angel Test Positive Height (Feet): 5 Height (Inches): 3.00 Weight (Pounds): 195 Objective PE Vital Signs Gen: unresponsive Pulm:++self-extubated CV: RRR, no mgr Abd: soft, nt, d Ext: no cce, s/p bka lle Labs: noted Colby Canada MD May 06, 2019 17:11
--- NOTE | 2019-05-06 17:23 | NUR ---
SWALLOW STATUS: PATIENT SEEN FOR DYSPHAGIA TX SESSION. AFTER REVIEW OF VIDEO SWALLOW STUDY WHICH IDENTIFIED SILENT ASPIRATION WITH THIN LIQUIDS, THE CLINICIAN WAS INFORMED BY RN OF PATIENTS TOLERANCE FOR THIN LIQUIDS. CLINICIAN REVIEWED VIDEO FINDINGS WITH RN. WHEN TREATING PATIENT AT BEDSIDE,CLINICIAN NOTED CUP OF THIN LIQUID AT BEDSIDE. REVIEWED VIDEO SWALLOW FINDINGS WITH PATIENT INCLUDING PICTORIAL AID TO SHOW THE PATIENT HOW ASPIRATION OCCURS, THE RISK IT PRESENTS AND HER NEED FOR COMPLIANCE WITH THICKENED LIQUIDS. SHE VERBALIZED UNDERSTANDING AND CONCURRED WITH NEED FOR NECTAR THICK LIQUIDS. RN AWARE OF PATIENTS SILENT ASPIRATION RISK AND NEED FOR MEALTIME PROTOCOL COMPLIANCE TO MINIMIZE RISK OF ASPIRATION.
--- NOTE | 2019-05-06 19:24 | NUR ---
HAND-OFF: Report given to GUZMAN Maria. Patient in stable condition.
--- NOTE | 2019-05-06 19:30 | NUR ---
NURSE NOTES: Received report from GUZMAN Diaz. PT is resting on the bed and awake and alert and forgetful. On tele monitor with SR. On O2 2L via nasal canula and SaO2 95% noted. Pt has Rt. femoral TLC and patent but dressing is slight leaking. Patient has left nephrostomy tube that is patent and draining straw yellow urine and right urostomy bag over where the right nephrostomy tube used to be. Re-applied urostomy bag. Dressing is clean and dry on sacral area. On BHAVIN mattress for wound management. repositioned. Lt. site BKA. Denied pain at this time. Placed fall precaution. Will continue to care plan.
[2019-05-06 20:00] VITALS: BP 100/77
[2019-05-06] MEDS: Dyna-Hex 2% Top Sol 2oz TOPIC SCH (20:08)
--- NOTE | 2019-05-06 21:13 | General Progress Note ---
Assessment/Plan Problem List: (1) Respiratory distress ICD Codes: R06.03 - Acute respiratory distress SNOMED: 751709037 (2) Leukocytosis ICD Codes: D72.829 - Elevated white blood cell count, unspecified SNOMED: 865086827, 248702845 (3) Renal failure ICD Codes: N19 - Unspecified kidney failure SNOMED: 70683889 (4) Respiratory failure ICD Codes: J96.90 - Respiratory failure, unspecified, unspecified whether with hypoxia or hypercapnia SNOMED: 604950290 (5) Pneumonia ICD Codes: J18.9 - Pneumonia, unspecified organism SNOMED: 313193596 (6) Schizophrenia ICD Codes: F20.9 - Schizophrenia, unspecified SNOMED: 71561244 (7) Seizure disorder ICD Codes: G40.909 - Epilepsy, unspecified, not intractable, without status epilepticus SNOMED: 347112452 (8) Hypoalbuminemia ICD Codes: E88.09 - Other disorders of plasma-protein metabolism, not elsewhere classified SNOMED: 521939289 Status: progressing, unchanged Assessment/Plan: psychosis afebrile abx per id pna extubated pna is improving cri anemia of chronic disease persistent leukocytosis arf improving has one nephrostomy tube Subjective ROS Limited/Unobtainable: Yes Allergies: Coded Allergies: Grits (Unverified Allergy, Unknown, 07/06/17) [place] (Unverified Allergy, Unknown, 07/06/17) Objective Last 24 Hour Vital Signs Date Time Temp Pulse Resp B/P (MAP) Pulse Ox O2 Delivery O2 Flow Rate FiO2 05/06/19 20:00 97.9 85 18 100/77 (85) 95 05/06/19 20:00 Nasal Cannula 2.0 Nasal Cannula 2.0 05/06/19 19:08 68 18 96 Nasal Cannula 2.0 28 64 18 92 05/06/19 18:48 Nasal Cannula 2.0 28 05/06/19 18:48 Nasal Cannula 2.0 28 05/06/19 16:38 98.2 79 18 128/80 (96) 90 05/06/19 16:00 72 05/06/19 16:00 Nasal Cannula 2.0 Nasal Cannula 2.0 05/06/19 15:42 80 18 95 Nasal Cannula 2.0 28 05/06/19 15:42 75 17 97 Nasal Cannula 2.0 28 80 18 95 05/06/19 15:42 71 16 95 Nasal Cannula 2.0 28 05/06/19 12:00 Nasal Cannula 2.0 Nasal Cannula 2.0 05/06/19 11:55 68 18 95 Nasal Cannula 2.0 28 63 16 92 05/06/19 11:55 Nasal Cannula 2.0 28 05/06/19 11:55 Nasal Cannula 2.0 28 05/06/19 11:26 74 05/06/19 11:17 96.8 79 18 135/85 (102) 95 05/06/19 08:11 84 05/06/19 08:00 Nasal Cannula 2.0 Nasal Cannula 2.0 05/06/19 08:00 96.8 80 18 149/83 (105) 95 05/06/19 06:38 Nasal Cannula 2.0 28 05/06/19 06:38 75 20 98 Nasal Cannula 2.0 28 73 20 96 05/06/19 06:37 Nasal Cannula 2.0 28 05/06/19 04:00 97.0 64 18 117/74 (88) 96 05/06/19 04:00 Nasal Cannula 2.0 Nasal Cannula 2.0 05/06/19 04:00 66 05/06/19 03:21 Nasal Cannula 2.0 28 05/06/19 03:21 65 18 98 Nasal Cannula 2.0 28 61 18 96 05/06/19 03:20 Nasal Cannula 2.0 28 05/06/19 00:00 66 05/06/19 00:00 Nasal Cannula 2.0 Nasal Cannula 2.0 05/06/19 00:00 97.4 62 16 106/65 (79) 92 05/05/19 23:14 63 18 94 Nasal Cannula 2.0 28 05/05/19 23:14 63 18 94 Nasal Cannula 2.0 28 05/05/19 23:12 68 18 96 Nasal Cannula 2.0 28 63 18 94 05/05/19 21:26 94 Intake and Output 05/05/19 05/06/19 19:00 07:00 Intake Total 1190 ml 1360 ml Output Total 1030 ml 1500 ml Balance 160 ml -140 ml Intake Oral 840 ml 480 ml IV Total 350 ml 880 ml Output Urine Total 1030 ml 1500 ml Laboratory Tests 05/06/19 04:15: White Blood Count 14.2H, Red Blood Count 2.63L, Hemoglobin 8.6L, Hematocrit 24.9L, Mean Corpuscular Volume 94, Mean Corpuscular Hemoglobin 32.7H, Mean Corpuscular Hemoglobin Concent 34.6, Red Cell Distribution Width 14.4, Platelet Count 356, Mean Platelet Volume 5.1L, Neutrophils (%) (Auto) 80.3H, Lymphocytes (%) (Auto) 8.8L, Monocytes (%) (Auto) 7.8, Eosinophils (%) (Auto) 1.8, Basophils (%) (Auto) 1.2, Sodium Level 141, Potassium Level 4.1, Chloride Level 107, Carbon Dioxide Level 24, Anion Gap 10, Blood Urea Nitrogen 80H, Creatinine 2.3H, Estimat Glomerular Filtration Rate 21.9, Glucose Level 125H, Uric Acid 7.9H, Calcium Level 8.9, Phosphorus Level 4.6, Magnesium Level 2.3, Total Bilirubin 0.3, Aspartate Amino Transf (AST/SGOT) 18, Alanine Aminotransferase ( ALT/SGPT) 20, Alkaline Phosphatase 60, Total Protein 7.0, Albumin 1.9L, Globulin 5.1, Albumin/Globulin Ratio 0.4L 05/06/19 14:20: Stool Occult Blood [Pending] 05/06/19 14:55: Arterial Blood pH 7.401, Arterial Blood Partial Pressure CO2 35.2, Arterial Blood Partial Pressure O2 59.3L, Arterial Blood HCO3 21.4L, Arterial Blood Oxygen Saturation 89.9*L, Arterial Blood Base Excess -3.0L, Miguel Angel Test Positive Height (Feet): 5 Height (Inches): 3.00 Weight (Pounds): 195 Cardiovascular: normal rate Respiratory/Chest: lungs clear Abdomen: soft Isela Rubio MD May 06, 2019 21:13
--- NOTE | 2019-05-06 22:15 | Progress Note ---
DATE: 05/06/2019 SUBJECTIVE: The patient is transferred to the stepdown. She was having slightly waxing and waning consciousness, was dozing off during the evaluation, more alert than previous encounter. MENTAL STATUS EXAMINATION: The patient is alert, oriented times self. She in the hospital. Mood is anxious. Affect is flat. Thought process, there is a paucity of thought content. Thought content, no suicidal or homicidal ideation. Cognition is impaired. Insight and judgment is impaired. ASSESSMENT: 1. Acute encephalopathy, improving. 2. Schizophrenia. PLAN: We will continue current psychotropic medications. No medication changes. Discussed with the nurse. Azul Pearl M.D. DR: TRISTON JOB#: [id number] CC: PIERRE
--- NOTE | 2019-05-06 22:42 | Cardiology Progress Note ---
Assessment/Plan Assessment/Plan 1. Hypotension, most likely septic shock, resolved, 2D echocardiography obtained in month of January had shown normal LV systolic and diastolic function with LVEF of approximately 65%. 2. History of peripheral vascular disease, status post left BKA. 3. History of CVA/TIA. 4. Acute respiratory failure, resolved. Chest x-ray shows no acute cardiopulmonary disease. 5. Obstructive uropathy, status post nephrostomy tube placement. 6. Acute kidney injury on CKD, creat down to 2.3. 7. Seizure disorder. 8. Mixed hyperlipidemia with metabolic syndrome. Subjective Subjective Sinus rhythm at rate of 73. Objective Last 24 Hour Vital Signs Date Time Temp Pulse Resp B/P (MAP) Pulse Ox O2 Delivery O2 Flow Rate FiO2 05/06/19 20:00 73 05/06/19 20:00 97.9 85 18 100/77 (85) 95 05/06/19 20:00 Nasal Cannula 2.0 Nasal Cannula 2.0 05/06/19 19:08 68 18 96 Nasal Cannula 2.0 28 64 18 92 05/06/19 18:48 Nasal Cannula 2.0 28 05/06/19 18:48 Nasal Cannula 2.0 28 05/06/19 16:38 98.2 79 18 128/80 (96) 90 05/06/19 16:00 72 05/06/19 16:00 Nasal Cannula 2.0 Nasal Cannula 2.0 05/06/19 15:42 80 18 95 Nasal Cannula 2.0 28 05/06/19 15:42 75 17 97 Nasal Cannula 2.0 28 80 18 95 05/06/19 15:42 71 16 95 Nasal Cannula 2.0 28 05/06/19 12:00 Nasal Cannula 2.0 Nasal Cannula 2.0 05/06/19 11:55 68 18 95 Nasal Cannula 2.0 28 63 16 92 05/06/19 11:55 Nasal Cannula 2.0 28 05/06/19 11:55 Nasal Cannula 2.0 28 05/06/19 11:26 74 05/06/19 11:17 96.8 79 18 135/85 (102) 95 05/06/19 08:11 84 05/06/19 08:00 Nasal Cannula 2.0 Nasal Cannula 2.0 05/06/19 08:00 96.8 80 18 149/83 (105) 95 05/06/19 06:38 Nasal Cannula 2.0 28 05/06/19 06:38 75 20 98 Nasal Cannula 2.0 28 73 20 96 05/06/19 06:37 Nasal Cannula 2.0 28 05/06/19 04:00 97.0 64 18 117/74 (88) 96 05/06/19 04:00 Nasal Cannula 2.0 Nasal Cannula 2.0 05/06/19 04:00 66 05/06/19 03:21 Nasal Cannula 2.0 28 05/06/19 03:21 65 18 98 Nasal Cannula 2.0 28 61 18 96 05/06/19 03:20 Nasal Cannula 2.0 28 05/06/19 00:00 66 05/06/19 00:00 Nasal Cannula 2.0 Nasal Cannula 2.0 05/06/19 00:00 97.4 62 16 106/65 (79) 92 05/05/19 23:14 63 18 94 Nasal Cannula 2.0 28 05/05/19 23:14 63 18 94 Nasal Cannula 2.0 28 05/05/19 23:12 68 18 96 Nasal Cannula 2.0 28 63 18 94 Intake and Output 05/05/19 05/06/19 19:00 07:00 Intake Total 1190 ml 1360 ml Output Total 1030 ml 1500 ml Balance 160 ml -140 ml Intake Oral 840 ml 480 ml IV Total 350 ml 880 ml Output Urine Total 1030 ml 1500 ml 2D Echo: LVEF 60%, RVSP 31 mmHg, Normal LV Diastolic fxn. Laboratory Tests Test 05/06/19 04:15 05/06/19 14:20 05/06/19 14:55 White Blood Count 14.2 K/UL (4.8-10.8) H Red Blood Count 2.63 M/UL (4.20-5.40) L Hemoglobin 8.6 G/DL (12.0-16.0) L Hematocrit 24.9 % (37.0-47.0) L Mean Corpuscular Volume 94 FL (80-99) Mean Corpuscular Hemoglobin 32.7 PG (27.0-31.0) H Mean Corpuscular Hemoglobin Concent 34.6 G/DL (32.0-36.0) Red Cell Distribution Width 14.4 % (11.6-14.8) Platelet Count 356 K/UL (150-450) Mean Platelet Volume 5.1 FL (6.5-10.1) L Neutrophils (%) (Auto) 80.3 % (45.0-75.0) H Lymphocytes (%) (Auto) 8.8 % (20.0-45.0) L Monocytes (%) (Auto) 7.8 % (1.0-10.0) Eosinophils (%) (Auto) 1.8 % (0.0-3.0) Basophils (%) (Auto) 1.2 % (0.0-2.0) Sodium Level 141 MMOL/L (136-145) Potassium Level 4.1 MMOL/L (3.5-5.1) Chloride Level 107 MMOL/L (98-107) Carbon Dioxide Level 24 MMOL/L (21-32) Anion Gap 10 mmol/L (5-15) Blood Urea Nitrogen 80 mg/dL (7-18) H Creatinine 2.3 MG/DL (0.55-1.30) H Estimat Glomerular Filtration Rate 21.9 mL/min (>60) Glucose Level 125 MG/DL (74-106) H Uric Acid 7.9 MG/DL (2.6-7.2) H Calcium Level 8.9 MG/DL (8.5-10.1) Phosphorus Level 4.6 MG/DL (2.5-4.9) Magnesium Level 2.3 MG/DL (1.8-2.4) Total Bilirubin 0.3 MG/DL (0.2-1.0) Aspartate Amino Transf (AST/SGOT) 18 U/L (15-37) Alanine Aminotransferase (ALT/SGPT) 20 U/L (12-78) Alkaline Phosphatase 60 U/L (46-116) Total Protein 7.0 G/DL (6.4-8.2) Albumin 1.9 G/DL (3.4-5.0) L Globulin 5.1 g/dL Albumin/Globulin Ratio 0.4 (1.0-2.7) L Stool Occult Blood Pending Arterial Blood pH 7.401 (7.350-7.450) Arterial Blood Partial Pressure CO2 35.2 mmHg (35.0-45.0) Arterial Blood Partial Pressure O2 59.3 mmHg (75.0-100.0) L Arterial Blood HCO3 21.4 mmol/L (22.0-26.0) L Arterial Blood Oxygen Saturation 89.9 % (95-100) *L Arterial Blood Base Excess -3.0 (-2-2) L Miguel Angel Test Positive Objective HEENT: Atraumatic and normocephalic. Anicteric. Pupils are equal, round, and reactive to light and accommodation. Conjunctival pallor is present. NECK: JVP <5cm. No carotid bruit. Carotid upstrokes 2+ bilaterally. CARDIOVASCULAR: Normal S1, S2. Regular rate and rhythm. No murmurs, gallops, or rubs. PMI is at fourth intercostal space in the midclavicular line. LUNGS: Clear to auscultation bilaterally. ABDOMEN: Soft, nondistended. No hepatosplenomegaly. Positive bowel sounds. Bilateral nephrostomy tubes. EXTREMITIES: Left BKA, otherwise no edema, clubbing, or cyanosis. Justo Merchant MD May 06, 2019 22:42
[2019-05-07] VITALS: BP 100/61
--- NOTE | 2019-05-07 00:25 | NUR ---
TRANSFER TO FLOOR: Patient transferred to Tele 206-2. Report given to GUZMAN Cullen. No Belongings noted. Medications given to GUZMAN Cullen. Pt is sleeping on the bed and no sign of acute distress noted. On O2 2L via nasal cannula. On tele monitor with SR. Placed fall & seizure precaution.
--- NOTE | 2019-05-07 00:55 | NUR ---
NURSE NOTES: Patient arrived to the unit via bed accompanied by 3 RN's at 0030. Received report from GUZMAN Maria. Patient is awake and responsive. Breathing regular and unlabored with no S/S of SOB noted at this time. Patient is on a NC, with saturations above 94%, patient has PRN BIPAP. Patient has a Femoral Line with triple lumen, running fluids at prescribed rate per MD orders. Patient has a previous IJ catheter that is in longer working and that is the reason the femoral line was placed. Patient has an order for a PICC line placement possibly on Thursday the . Consent is in the chart. Patient has a double nephrostomy, with R side stoma that is covered with ABD pads due to no availability of drainage bag, a stent is in place as well. The left side is connected to a drainage bag and it is draining yellow urine. Patient remains on the ekg monitor, showing sinus rhythm. No c/o pain or discomfort noted at this time. Bed is in lowest position, breaks engaged, and call light is within reach at all times. All other needs attended to, will continue to monitor.
[2019-05-07] MEDS ORDERED: Albuterol/Ipratropium 3ml neb HHN PRN ×2 (01:16→01:30)
[2019-05-07] MEDS: Acetaminophen 650mg/20.3ml NG PRN ×2 (02:09→08:36)
[2019-05-07] MEDS: Albuterol/Ipratropium 3ml neb HHN SCH ×6 (03:03→22:52)
[2019-05-07 04:00] VITALS: BP 152/96
[2019-05-07] MEDS: NovoLOG Insulin Flexpen SUBQ SCH ×4 (06:30→21:00)
[2019-05-07] MEDS ORDERED: NovoLOG Insulin Flexpen SUBQ SCH (06:30)
--- NOTE | 2019-05-07 06:45 | General Progress Note ---
Assessment/Plan Problem List: (1) S/P BKA (below knee amputation) unilateral ICD Codes: Z89.519 - Acquired absence of unspecified leg below knee SNOMED: 71606409, 93621221, 930205354 (2) Stage 4 skin ulcer of sacral region ICD Codes: L98.429 - Non-pressure chronic ulcer of back with unspecified severity SNOMED: 39722024, 135058392 (3) Seizure disorder ICD Codes: G40.909 - Epilepsy, unspecified, not intractable, without status epilepticus SNOMED: 356451225 Status: progressing, unchanged Assessment/Plan: Assessment/Plan Status: progressing, unchanged Assessment/Plan: Assessment - Resp failure - resolved - anemia - PVD -RI Recommendations - on po diet -neg stool ob -fu pulm recs - Follow labs - abx Subjective Allergies: Coded Allergies: Grits (Unverified Allergy, Unknown, 07/06/17) [place] (Unverified Allergy, Unknown, 07/06/17) Objective Last 24 Hour Vital Signs Date Time Temp Pulse Resp B/P (MAP) Pulse Ox O2 Delivery O2 Flow Rate FiO2 05/07/19 04:00 66 05/07/19 04:00 97.6 66 20 152/96 (114) 96 05/07/19 03:03 63 16 95 Nasal Cannula 2.0 28 59 16 92 05/07/19 02:59 Nasal Cannula 2.0 28 05/07/19 02:59 Nasal Cannula 2.0 28 05/07/19 00:00 Nasal Cannula 2.0 Nasal Cannula 2.0 05/07/19 00:00 68 05/07/19 00:00 97.5 68 18 100/61 (74) 95 05/06/19 22:53 Nasal Cannula 2.0 28 05/06/19 22:53 75 20 97 Nasal Cannula 2.0 28 73 20 94 05/06/19 22:52 Nasal Cannula 2.0 28 05/06/19 22:51 94 05/06/19 20:00 73 05/06/19 20:00 97.9 85 18 100/77 (85) 95 05/06/19 20:00 Nasal Cannula 2.0 Nasal Cannula 2.0 05/06/19 19:08 68 18 96 Nasal Cannula 2.0 28 64 18 92 05/06/19 18:48 Nasal Cannula 2.0 28 05/06/19 18:48 Nasal Cannula 2.0 28 05/06/19 16:38 98.2 79 18 128/80 (96) 90 05/06/19 16:00 72 05/06/19 16:00 Nasal Cannula 2.0 Nasal Cannula 2.0 05/06/19 15:42 80 18 95 Nasal Cannula 2.0 28 05/06/19 15:42 75 17 97 Nasal Cannula 2.0 28 80 18 95 05/06/19 15:42 71 16 95 Nasal Cannula 2.0 28 05/06/19 12:00 Nasal Cannula 2.0 Nasal Cannula 2.0 05/06/19 11:55 68 18 95 Nasal Cannula 2.0 28 63 16 92 05/06/19 11:55 Nasal Cannula 2.0 28 05/06/19 11:55 Nasal Cannula 2.0 28 05/06/19 11:26 74 05/06/19 11:17 96.8 79 18 135/85 (102) 95 05/06/19 08:11 84 05/06/19 08:00 Nasal Cannula 2.0 Nasal Cannula 2.0 05/06/19 08:00 96.8 80 18 149/83 (105) 95 Intake and Output 05/06/19 05/07/19 19:00 07:00 Intake Total 1278.75 ml 391 ml Output Total 1500 ml Balance -221.25 ml 391 ml Intake Oral 480 ml IV Total 798.75 ml 391 ml Output Urine Total 1500 ml # Bowel Movements 1 Laboratory Tests 05/06/19 14:20: Stool Occult Blood Negative 05/06/19 14:55: Arterial Blood pH 7.401, Arterial Blood Partial Pressure CO2 35.2, Arterial Blood Partial Pressure O2 59.3L, Arterial Blood HCO3 21.4L, Arterial Blood Oxygen Saturation 89.9*L, Arterial Blood Base Excess -3.0L, Miguel Angel Test Positive Height (Feet): 5 Height (Inches): 3.00 Weight (Pounds): 218 General Appearance: alert EENT: normal ENT inspection Neck: supple Cardiovascular: normal rate Respiratory/Chest: decreased breath sounds Abdomen: normal bowel sounds, non tender, soft Extremities: non-tender Jared Hinds MD May 07, 2019 06:45
--- NOTE | 2019-05-07 06:45 | NUR ---
NURSE NOTES: Due to the reason that the patient has a triple lumen Femoral access, the RN is required to draw morning labs. In attempt to do so, RN was not able to get much blood. Patient stated "This is normal for me and tell the lab technicians to use the butterfly to draw blood." Two RN's attempted to draw, were unsuccessful. Lab technicians were able to draw blood this morning with no problems.
[2019-05-07 07:14] LABS: EOSINOPHILS % (AUTO) 0.1 % (0.0-3.0); HEMATOCRIT 26.1 % (37.0-47.0); LYMPHOCYTES % (AUTO) 15.7 % (20.0-45.0); MEAN CORPUSCULAR VOLUME 95 FL (80-99); MONOCYTES % (AUTO) 10.1 % (1.0-10.0); NEUTROPHILS % (AUTO) 73.1 % (45.0-75.0); PLATELET COUNT 360 K/UL (150-450); RED BLOOD COUNT 2.74 M/UL (4.20-5.40); RED CELL DISTRIBUTION WIDTH 13.6 % (11.6-14.8)
--- NOTE | 2019-05-07 07:14 | NUR ---
HAND-OFF: Report given to GUZMAN Gordon. Patient in stable condition, plan of care endorsed.
--- NOTE | 2019-05-07 07:15 | NUR ---
NURSE NOTES: Received report from GUZMAN Cullen. Observed patient in bed, awake, alert, verbally responsive, eating breakfast. On O2 3L via NC, no respiratory distress noted. Right femoral central line intact and patent. Patient denies pain/discomfort at this time. Bed locked, alarmed, and in lowest position, padded side rails up x2, and call light left within reach. Instructed patient to call for assistance, verbalized understanding. Will continue plan of care and will continue to monitor patient.
[2019-05-07 07:57] LABS: ALANINE AMINOTRANSFERASE 26 U/L (12-78); ALBUMIN/GLOBULIN RATIO 0.4 (1.0-2.7); ALKALINE PHOSPHATASE 63 U/L (46-116); ANION GAP 12 mmol/L (5-15); ASPARTATE AMINO TRANSFERASE 21 U/L (15-37); BILIRUBIN,TOTAL 0.2 MG/DL (0.2-1.0); BLOOD UREA NITROGEN 74 mg/dL (7-18); CALCIUM 9.2 MG/DL (8.5-10.1); CARBON DIOXIDE 23 MMOL/L (21-32); CHLORIDE 102 MMOL/L (98-107); CREATININE 2.1 MG/DL (0.55-1.30); PHOSPHORUS 4.7 MG/DL (2.5-4.9); POTASSIUM 4.1 MMOL/L (3.5-5.1); SODIUM 137 MMOL/L (136-145)
[2019-05-07 08:00] VITALS: BP 143/84
[2019-05-07] MEDS: Lacosamide 50mg tablet ORAL SCH (08:25)
[2019-05-07] MEDS: Solu-MEDROL 40mg Inj IVP SCH ×2 (08:25→21:19)
[2019-05-07] MEDS: Sodium Citrate 30ml ORAL SCH ×2 (08:25→17:24)
[2019-05-07] MEDS: Heparin 5000 units/ml inj SUBQ SCH ×2 (08:35→21:20)
[2019-05-07] MEDS: Gabapentin 300 MG/6 ML Soln NG SCH ×2 (08:36→12:26)
[2019-05-07] MEDS ORDERED: Meropenem 500 MG in NS 55 ML IVPB SCH (09:00)
[2019-05-07] MEDS ORDERED: levETIRAcetam 500mg/5ml Liquid NG SCH (09:00)
--- NOTE | 2019-05-07 09:37 | Nephrology Progress Note ---
Assessment/Plan Problem List: (1) Renal failure Assessment: acute on chronic (2) Dehydration (3) Respiratory failure Assessment: self extubated (4) Anemia (5) Hydronephrosis Assessment: nephrostomies Assessment Acute on Chronic Renal Failure + Severe dehydration- IMPROVING h/o ? kidney mass h/o hydronephrosis - has Nephrostomie Anemia Ventilator Dependent Respiratory failure pulmonary infiltrate / Urinary tract infection h/o ESBL UTI from custodial Seizure disorder on Clonazepam and Gabapentin Schizophrenia Hypertension, presented with low BP Obesity Plan taper steroids per pulmonary Self extubated Hydrate pulmonary support Bicitra Transfuse as needed monitor renal parameters Urology eval avoid nephrotoxics per consultants Moderate right hydronephrosis. This is apparently new at least since the last exam from 07/12/2018. More recent exam had shown placement of a ureteral stent on the right which we're told was removed. Consider noncontrast CT for further evaluation. Left ureteral stent the partially visualized. No hydronephrosis in the left kidney. Subjective ROS Limited/Unobtainable: No Constitutional: Reports: malaise Objective Objective Last 24 Hour Vital Signs Date Time Temp Pulse Resp B/P (MAP) Pulse Ox O2 Delivery O2 Flow Rate FiO2 05/07/19 08:00 98.1 71 20 143/84 (103) 97 05/07/19 07:07 Nasal Cannula 2.0 28 05/07/19 07:07 61 16 99 Nasal Cannula 2.0 28 59 16 98 05/07/19 04:00 66 05/07/19 04:00 97.6 66 20 152/96 (114) 96 05/07/19 03:03 63 16 95 Nasal Cannula 2.0 28 59 16 92 05/07/19 02:59 Nasal Cannula 2.0 28 05/07/19 02:59 Nasal Cannula 2.0 28 05/07/19 00:00 Nasal Cannula 2.0 Nasal Cannula 2.0 05/07/19 00:00 68 05/07/19 00:00 97.5 68 18 100/61 (74) 95 05/06/19 22:53 Nasal Cannula 2.0 28 05/06/19 22:53 75 20 97 Nasal Cannula 2.0 28 73 20 94 05/06/19 22:52 Nasal Cannula 2.0 28 05/06/19 22:51 94 05/06/19 20:00 73 05/06/19 20:00 97.9 85 18 100/77 (85) 95 05/06/19 20:00 Nasal Cannula 2.0 Nasal Cannula 2.0 05/06/19 19:08 68 18 96 Nasal Cannula 2.0 28 64 18 92 05/06/19 18:48 Nasal Cannula 2.0 28 05/06/19 18:48 Nasal Cannula 2.0 28 05/06/19 16:38 98.2 79 18 128/80 (96) 90 05/06/19 16:00 72 05/06/19 16:00 Nasal Cannula 2.0 Nasal Cannula 2.0 05/06/19 15:42 80 18 95 Nasal Cannula 2.0 28 05/06/19 15:42 75 17 97 Nasal Cannula 2.0 28 80 18 95 05/06/19 15:42 71 16 95 Nasal Cannula 2.0 28 05/06/19 12:00 Nasal Cannula 2.0 Nasal Cannula 2.0 05/06/19 11:55 68 18 95 Nasal Cannula 2.0 28 63 16 92 05/06/19 11:55 Nasal Cannula 2.0 28 05/06/19 11:55 Nasal Cannula 2.0 28 05/06/19 11:26 74 05/06/19 11:17 96.8 79 18 135/85 (102) 95 Intake and Output 05/06/19 05/07/19 19:00 07:00 Intake Total 1278.75 ml 391 ml Output Total 1500 ml Balance -221.25 ml 391 ml Intake Oral 480 ml IV Total 798.75 ml 391 ml Output Urine Total 1500 ml # Bowel Movements 1 Laboratory Tests 05/06/19 14:20: Stool Occult Blood Negative 05/06/19 14:55: Arterial Blood pH 7.401, Arterial Blood Partial Pressure CO2 35.2, Arterial Blood Partial Pressure O2 59.3L, Arterial Blood HCO3 21.4L, Arterial Blood Oxygen Saturation 89.9*L, Arterial Blood Base Excess -3.0L, Miguel Angel Test Positive 05/07/19 06:00: White Blood Count 13.0H, Red Blood Count 2.74L, Hemoglobin 9.0L, Hematocrit 26.1L, Mean Corpuscular Volume 95, Mean Corpuscular Hemoglobin 32.7H, Mean Corpuscular Hemoglobin Concent 34.4, Red Cell Distribution Width 13.6, Platelet Count 360, Mean Platelet Volume 5.0L, Neutrophils (%) (Auto) 73.1, Lymphocytes ( %) (Auto) 15.7L, Monocytes (%) (Auto) 10.1H, Eosinophils (%) (Auto) 0.1, Basophils (%) (Auto) 1.0, Sodium Level 137, Potassium Level 4.1, Chloride Level 102, Carbon Dioxide Level 23, Anion Gap 12, Blood Urea Nitrogen 74H, Creatinine 2.1H, Estimat Glomerular Filtration Rate 24.3, Glucose Level 115H, Calcium Level 9.2, Phosphorus Level 4.7, Magnesium Level 1.6L, Total Bilirubin 0.2, Aspartate Amino Transf (AST/SGOT) 21, Alanine Aminotransferase (ALT/SGPT) 26, Alkaline Phosphatase 63, C-Reactive Protein, Quantitative 3.2H, Pro-B-Type Natriuretic Peptide 1524H, Total Protein 6.7, Albumin 2.0L, Globulin 4.7, Albumin/Globulin Ratio 0.4L Height (Feet): 5 Height (Inches): 3.00 Weight (Pounds): 218 General Appearance: no apparent distress Cardiovascular: normal rate Respiratory/Chest: decreased breath sounds Derrell Hatch MD May 07, 2019 09:37
--- NOTE | 2019-05-07 09:38 | Surgery Progress Note ---
Surgery Progress Note Subjective Procedure Performed right femoral central venous catheter insertion Additional Comments leukocytosis trending down comfortable no complaints no n/v/f/c Objective Last 24 Hour Vital Signs Date Time Temp Pulse Resp B/P (MAP) Pulse Ox O2 Delivery O2 Flow Rate FiO2 05/07/19 08:00 98.1 71 20 143/84 (103) 97 05/07/19 07:07 Nasal Cannula 2.0 28 05/07/19 07:07 61 16 99 Nasal Cannula 2.0 28 59 16 98 05/07/19 04:00 66 05/07/19 04:00 97.6 66 20 152/96 (114) 96 05/07/19 03:03 63 16 95 Nasal Cannula 2.0 28 59 16 92 05/07/19 02:59 Nasal Cannula 2.0 28 05/07/19 02:59 Nasal Cannula 2.0 28 05/07/19 00:00 Nasal Cannula 2.0 Nasal Cannula 2.0 05/07/19 00:00 68 05/07/19 00:00 97.5 68 18 100/61 (74) 95 05/06/19 22:53 Nasal Cannula 2.0 28 05/06/19 22:53 75 20 97 Nasal Cannula 2.0 28 73 20 94 05/06/19 22:52 Nasal Cannula 2.0 28 05/06/19 22:51 94 05/06/19 20:00 73 05/06/19 20:00 97.9 85 18 100/77 (85) 95 05/06/19 20:00 Nasal Cannula 2.0 Nasal Cannula 2.0 05/06/19 19:08 68 18 96 Nasal Cannula 2.0 28 64 18 92 05/06/19 18:48 Nasal Cannula 2.0 28 05/06/19 18:48 Nasal Cannula 2.0 28 05/06/19 16:38 98.2 79 18 128/80 (96) 90 05/06/19 16:00 72 05/06/19 16:00 Nasal Cannula 2.0 Nasal Cannula 2.0 05/06/19 15:42 80 18 95 Nasal Cannula 2.0 28 05/06/19 15:42 75 17 97 Nasal Cannula 2.0 28 80 18 95 05/06/19 15:42 71 16 95 Nasal Cannula 2.0 28 05/06/19 12:00 Nasal Cannula 2.0 Nasal Cannula 2.0 05/06/19 11:55 68 18 95 Nasal Cannula 2.0 28 63 16 92 05/06/19 11:55 Nasal Cannula 2.0 28 05/06/19 11:55 Nasal Cannula 2.0 28 05/06/19 11:26 74 05/06/19 11:17 96.8 79 18 135/85 (102) 95 I&O Intake and Output 05/06/19 05/07/19 19:00 07:00 Intake Total 1278.75 ml 391 ml Output Total 1500 ml Balance -221.25 ml 391 ml Intake Oral 480 ml IV Total 798.75 ml 391 ml Output Urine Total 1500 ml # Bowel Movements 1 Dressing: dry Wound: clean Cardiovascular: RSR Respiratory: clear Abdomen: soft, non-tender, present bowel sounds Extremities: no tenderness, no cyanosis Laboratory Tests Test 05/06/19 14:20 05/06/19 14:55 05/07/19 06:00 Stool Occult Blood Negative (NEGATIVE) Arterial Blood pH 7.401 (7.350-7.450) Arterial Blood Partial Pressure CO2 35.2 mmHg (35.0-45.0) Arterial Blood Partial Pressure O2 59.3 mmHg (75.0-100.0) L Arterial Blood HCO3 21.4 mmol/L (22.0-26.0) L Arterial Blood Oxygen Saturation 89.9 % (95-100) *L Arterial Blood Base Excess -3.0 (-2-2) L Miguel Angel Test Positive White Blood Count 13.0 K/UL (4.8-10.8) H Red Blood Count 2.74 M/UL (4.20-5.40) L Hemoglobin 9.0 G/DL (12.0-16.0) L Hematocrit 26.1 % (37.0-47.0) L Mean Corpuscular Volume 95 FL (80-99) Mean Corpuscular Hemoglobin 32.7 PG (27.0-31.0) H Mean Corpuscular Hemoglobin Concent 34.4 G/DL (32.0-36.0) Red Cell Distribution Width 13.6 % (11.6-14.8) Platelet Count 360 K/UL (150-450) Mean Platelet Volume 5.0 FL (6.5-10.1) L Neutrophils (%) (Auto) 73.1 % (45.0-75.0) Lymphocytes (%) (Auto) 15.7 % (20.0-45.0) L Monocytes (%) (Auto) 10.1 % (1.0-10.0) H Eosinophils (%) (Auto) 0.1 % (0.0-3.0) Basophils (%) (Auto) 1.0 % (0.0-2.0) Sodium Level 137 MMOL/L (136-145) Potassium Level 4.1 MMOL/L (3.5-5.1) Chloride Level 102 MMOL/L (98-107) Carbon Dioxide Level 23 MMOL/L (21-32) Anion Gap 12 mmol/L (5-15) Blood Urea Nitrogen 74 mg/dL (7-18) H Creatinine 2.1 MG/DL (0.55-1.30) H Estimat Glomerular Filtration Rate 24.3 mL/min (>60) Glucose Level 115 MG/DL (74-106) H Calcium Level 9.2 MG/DL (8.5-10.1) Phosphorus Level 4.7 MG/DL (2.5-4.9) Magnesium Level 1.6 MG/DL (1.8-2.4) L Total Bilirubin 0.2 MG/DL (0.2-1.0) Aspartate Amino Transf (AST/SGOT) 21 U/L (15-37) Alanine Aminotransferase (ALT/SGPT) 26 U/L (12-78) Alkaline Phosphatase 63 U/L (46-116) C-Reactive Protein, Quantitative 3.2 mg/dL (0.00-0.90) H Pro-B-Type Natriuretic Peptide 1524 pg/mL (0-125) H Total Protein 6.7 G/DL (6.4-8.2) Albumin 2.0 G/DL (3.4-5.0) L Globulin 4.7 g/dL Albumin/Globulin Ratio 0.4 (1.0-2.7) L Plan Problems: (1) Stage 4 skin ulcer of sacral region Assessment & Plan: Patient presented on admission with a story healing stage IV sacral decubitus ulcer. (2) Leukocytosis Assessment & Plan: Patient's presents with subjective fevers, leukocytosis, anemia, abnormal labs. Since intubated in the ICU prior now self extubated doing well. Labs improving. Afebrile, hemodynamic stable, lactate normal Labs improving responding well to IV hydration On antibiotics as per ID no acute surgical intervention recommended Trend labs line okay picc soon Will follow with recommendations (3) Cellulitis (4) S/P BKA (below knee amputation) unilateral Assessment & Plan: Left lower extremity BKA flap okay with mild granulation tissue at the lateral edge healing well. Historic and prior prosthetic believes it was shot off. Offload pressure with pillows Foam dressing to wound bed Star Molina May 07, 2019 09:38
[2019-05-07 12:00] VITALS: BP 150/92
[2019-05-07] MEDS ORDERED: 1/2 NS 1000ml IV ONE ×2 (13:07→13:08)
[2019-05-07] MEDS ORDERED: NS 275ml ONE (13:07)
--- NOTE | 2019-05-07 14:41 | Pulmonolgy Critical Care Note ---
Critical Care - Asmt/Plan Assessment/Plan: Pulmonary Progress Note HPI This patient is a 58 year old woman with past history of Chronic Obstructive Pulmonary Disease, Seizures, Previous CVA/TIA, Hypertension, CAD, Cervical cancer s/p Uropathy - has B/L Nephrostomy tubes, Chronic kidney disease, Peripheral vascular disease sp LLE amputation, Schizophrenia, [facility] from [facility] with shortness of breath, fever, N/V and hypoxemia. On NC O2 Improved metabolic acidosis Hematology following for anemia UTI - ESBL GNR, pos BC for GNR Has femoral line - PICC could not be inserted, denies SOB Allergies: Grits [place] Past Medical History: see triage record, old chart reviewed, HTN, CAD, asthma, COPD, GERD, CVA/TIA, seizures, psych hx - schizophrenia, renal disease, other - cervical ca s/p obstructive uropathy s/p BL nephrostomy tubes, muscle weakness Past Surgical History: other - L. BKA Social History: Denies: smoking, alcohol use, drug use All Other Systems: negative except mentioned in HPI Physical Exam Vital Signs Noted General Appearance: no apparent distress, awake, non-toxic Head: normocephalic, atraumatic Eyes: bilateral eye normal inspection, bilateral eye PERRL ENT: hearing grossly normal, normal pharynx Neck: full range of motion, supple/symm/no masses Respiratory: chest non-tender, CTAB Cardiovascular: regular rate, rhythm, HS1, HS2 normal, no edema Gastrointestinal: normal bowel sounds, non tender, soft, non-distended, no guarding, no rebound Rectal: deferred Musculoskeletal: back normal, normal range of motion, non-tender, other - L. BKA Neurologic: awake, interactive, no focal signs Impression: Chronic Obstructive Pulmonary Disease Exacerbation Possible Pneumonia Chronic kidney disease Hydronephrosis, L nephrostomy Urinary Tract Infection, ESBL Anemia Leukocytosis Seizures Previous CVA/TIA Hypertension CAD Cervical cancer s/p Uropathy - previous R Nephrostomy tube Peripheral vascular disease sp LLE amputation Schizophrenia Plan - IV Antibiotics - Bipap PRN - ABG this AM - IV Steroids - wean - 40 daily - can be DC on Medrol dose pack - HHN - IVF per Renal - ISS - PPX - Monitor labs - Pressors PRN - NGT - CERTIFIED PEDORTHOTIST Medications Critical care time: 45 minutes, 23 minutes care co-ordination DW: RN Laboratory Tests Noted EKG: Rate: normal Rhythm: NSR ST Segments: no acute changes Chest X-Ray: no effusion, no pneumothorax, other possible- RLL opacity CXR #2: Appropriate ET tube placement s/p RSI LE Dupplex: negative URINE CULTURE Final COMMENTS: KNOWN ESBL. Organism 1 ESCHERICHIA COLI - ESBL COLONY COUNT: >100,000 CFU/ML ESCCOL ESB M.I.C. RX --------- --- AMPICILLIN >=32 R CEFAZOLIN >=64 R CEFTAZIDIME R CEFTRIAXONE >=64 R CEFEPIME R CIPROFLOXACIN >=4 R GENTAMICIN <=1 S LEVOFLOXACIN >=8 R IMIPENEM <=0.25 S NITROFURANTOIN <=16 S TIGECYCLINE <=0.5 S TRIMETHOPRIM/SULFA <=20 S AMIKACIN 16 S PIPERACILLIN/TAZOBACTAM 8 S Critical Care - Objective Last 24 Hour Vital Signs Date Time Temp Pulse Resp B/P (MAP) Pulse Ox O2 Delivery O2 Flow Rate FiO2 05/07/19 12:00 98.1 83 21 150/92 (111) 97 05/07/19 11:39 76 05/07/19 10:42 70 15 100 Nasal Cannula 2.0 28 68 17 98 05/07/19 09:00 Nasal Cannula 2.0 Nasal Cannula 2.0 05/07/19 08:00 98.1 71 20 143/84 (103) 97 05/07/19 07:59 76 05/07/19 07:07 Nasal Cannula 2.0 28 05/07/19 07:07 61 16 99 Nasal Cannula 2.0 28 59 16 98 05/07/19 04:00 66 05/07/19 04:00 97.6 66 20 152/96 (114) 96 05/07/19 03:03 63 16 95 Nasal Cannula 2.0 28 59 16 92 05/07/19 02:59 Nasal Cannula 2.0 28 05/07/19 02:59 Nasal Cannula 2.0 28 05/07/19 00:00 Nasal Cannula 2.0 Nasal Cannula 2.0 05/07/19 00:00 68 05/07/19 00:00 97.5 68 18 100/61 (74) 95 05/06/19 22:53 Nasal Cannula 2.0 28 05/06/19 22:53 75 20 97 Nasal Cannula 2.0 28 73 20 94 05/06/19 22:52 Nasal Cannula 2.0 28 05/06/19 22:51 94 05/06/19 20:00 73 05/06/19 20:00 97.9 85 18 100/77 (85) 95 05/06/19 20:00 Nasal Cannula 2.0 Nasal Cannula 2.0 05/06/19 19:08 68 18 96 Nasal Cannula 2.0 28 64 18 92 05/06/19 18:48 Nasal Cannula 2.0 28 05/06/19 18:48 Nasal Cannula 2.0 28 05/06/19 16:38 98.2 79 18 128/80 (96) 90 05/06/19 16:00 72 05/06/19 16:00 Nasal Cannula 2.0 Nasal Cannula 2.0 05/06/19 15:42 80 18 95 Nasal Cannula 2.0 28 05/06/19 15:42 75 17 97 Nasal Cannula 2.0 28 80 18 95 05/06/19 15:42 71 16 95 Nasal Cannula 2.0 28 Accucheck: 99 Critical Care - Subjective ROS Limited/Unobtainable: No FI02: 28 Vent Support Breath Rate: 22 Vent Support Mode: BiLevel Vent Tidal Volume: 450 Sputum Amount: None PEEP: 5.0 PIP: 41 Tube Feeding Amount: 0 I&O: Intake and Output 05/06/19 05/07/19 19:00 07:00 Intake Total 1278.75 ml 391 ml Output Total 1500 ml Balance -221.25 ml 391 ml Intake Oral 480 ml IV Total 798.75 ml 391 ml Output Urine Total 1500 ml # Bowel Movements 1 ET-Tube: 7.5 ET Position: 22 Gabino Smith MD May 07, 2019 14:41
[2019-05-07 16:00] VITALS: BP 139/95
--- NOTE | 2019-05-07 16:44 | General Progress Note ---
Assessment/Plan Problem List: (1) Respiratory distress ICD Codes: R06.03 - Acute respiratory distress SNOMED: 655796398 (2) Leukocytosis ICD Codes: D72.829 - Elevated white blood cell count, unspecified SNOMED: 590522426, 024145715 (3) Renal failure ICD Codes: N19 - Unspecified kidney failure SNOMED: 80542757 (4) Respiratory failure ICD Codes: J96.90 - Respiratory failure, unspecified, unspecified whether with hypoxia or hypercapnia SNOMED: 370486024 (5) Pneumonia ICD Codes: J18.9 - Pneumonia, unspecified organism SNOMED: 592311565 (6) Schizophrenia ICD Codes: F20.9 - Schizophrenia, unspecified SNOMED: 19895958 (7) Seizure disorder ICD Codes: G40.909 - Epilepsy, unspecified, not intractable, without status epilepticus SNOMED: 102902115 (8) Hypoalbuminemia ICD Codes: E88.09 - Other disorders of plasma-protein metabolism, not elsewhere classified SNOMED: 707909253 Status: progressing, unchanged Assessment/Plan: pna reviewed chart pna is improving cri anemia of chronic disease persistent leukocytosis taper steroids arf improving has one nephrostomy tube Subjective ROS Limited/Unobtainable: Yes Allergies: Coded Allergies: Grits (Unverified Allergy, Unknown, 07/06/17) [place] (Unverified Allergy, Unknown, 07/06/17) Objective Last 24 Hour Vital Signs Date Time Temp Pulse Resp B/P (MAP) Pulse Ox O2 Delivery O2 Flow Rate FiO2 05/07/19 16:00 97.3 88 19 139/95 (110) 98 05/07/19 14:58 78 18 99 Nasal Cannula 2.0 28 80 20 97 05/07/19 12:00 98.1 83 21 150/92 (111) 97 05/07/19 11:39 76 05/07/19 10:42 70 15 100 Nasal Cannula 2.0 28 68 17 98 05/07/19 09:00 Nasal Cannula 2.0 Nasal Cannula 2.0 05/07/19 08:00 98.1 71 20 143/84 (103) 97 05/07/19 07:59 76 05/07/19 07:07 Nasal Cannula 2.0 28 05/07/19 07:07 61 16 99 Nasal Cannula 2.0 28 59 16 98 05/07/19 04:00 66 05/07/19 04:00 97.6 66 20 152/96 (114) 96 05/07/19 03:03 63 16 95 Nasal Cannula 2.0 28 59 16 92 05/07/19 02:59 Nasal Cannula 2.0 28 05/07/19 02:59 Nasal Cannula 2.0 28 05/07/19 00:00 Nasal Cannula 2.0 Nasal Cannula 2.0 05/07/19 00:00 68 05/07/19 00:00 97.5 68 18 100/61 (74) 95 05/06/19 22:53 Nasal Cannula 2.0 28 05/06/19 22:53 75 20 97 Nasal Cannula 2.0 28 73 20 94 05/06/19 22:52 Nasal Cannula 2.0 28 05/06/19 22:51 94 05/06/19 20:00 73 05/06/19 20:00 97.9 85 18 100/77 (85) 95 05/06/19 20:00 Nasal Cannula 2.0 Nasal Cannula 2.0 05/06/19 19:08 68 18 96 Nasal Cannula 2.0 28 64 18 92 05/06/19 18:48 Nasal Cannula 2.0 28 05/06/19 18:48 Nasal Cannula 2.0 28 Intake and Output 05/06/19 05/07/19 19:00 07:00 Intake Total 1278.75 ml 391 ml Output Total 1500 ml Balance -221.25 ml 391 ml Intake Oral 480 ml IV Total 798.75 ml 391 ml Output Urine Total 1500 ml # Bowel Movements 1 Laboratory Tests 05/07/19 06:00: White Blood Count 13.0H, Red Blood Count 2.74L, Hemoglobin 9.0L, Hematocrit 26.1L, Mean Corpuscular Volume 95, Mean Corpuscular Hemoglobin 32.7H, Mean Corpuscular Hemoglobin Concent 34.4, Red Cell Distribution Width 13.6, Platelet Count 360, Mean Platelet Volume 5.0L, Neutrophils (%) (Auto) 73.1, Lymphocytes ( %) (Auto) 15.7L, Monocytes (%) (Auto) 10.1H, Eosinophils (%) (Auto) 0.1, Basophils (%) (Auto) 1.0, Sodium Level 137, Potassium Level 4.1, Chloride Level 102, Carbon Dioxide Level 23, Anion Gap 12, Blood Urea Nitrogen 74H, Creatinine 2.1H, Estimat Glomerular Filtration Rate 24.3, Glucose Level 115H, Calcium Level 9.2, Phosphorus Level 4.7, Magnesium Level 1.6L, Total Bilirubin 0.2, Aspartate Amino Transf (AST/SGOT) 21, Alanine Aminotransferase (ALT/SGPT) 26, Alkaline Phosphatase 63, C-Reactive Protein, Quantitative 3.2H, Pro-B-Type Natriuretic Peptide 1524H, Total Protein 6.7, Albumin 2.0L, Globulin 4.7, Albumin/Globulin Ratio 0.4L Height (Feet): 5 Height (Inches): 3.00 Weight (Pounds): 218 Respiratory/Chest: lungs clear Abdomen: soft Isela Rubio MD May 07, 2019 16:44
--- NOTE | 2019-05-07 19:02 | NUR ---
HAND-OFF: Report given to GUZMAN Cullen. Endorsed plan of care. Patient in stable condition.
--- NOTE | 2019-05-07 19:30 | NUR ---
NURSE NOTES: Received report from GUZMAN Gordon. Patient is in bed, awake and responsive. Breathing regular and unlabored with no S/S of SOB noted. Patient remains on a NC. IV access is still on the R Femoral, triple lumen with dressing intact and running fluids at prescribed rate. Patient still has double nephrostomies. L side has the drainage bag with yellow output of urine, the R side is still only the stoma covered with ABD pads. Patient currently denies any pain or discomfort at this time. Bed is in lowest position, breaks engaged, and call light is within reach at all times. All other needs attended to, patient remains stable, will continue to monitor.
[2019-05-07 20:00] VITALS: BP 137/79
[2019-05-07] MEDS: Meropenem 1 GM in NS 55 ML IVPB SCH (21:19)
[2019-05-07] MEDS: Dyna-Hex 2% Top Sol 2oz TOPIC SCH (21:21)
[2019-05-08] VITALS: BP 126/63
[2019-05-08 04:00] VITALS: BP 112/66
[2019-05-08] MEDS ORDERED: Albuterol/Ipratropium 3ml neb HHN PRN (06:00)
[2019-05-08] MEDS: NovoLOG Insulin Flexpen SUBQ SCH ×4 (06:30→21:00)
--- NOTE | 2019-05-08 07:10 | NUR ---
HAND-OFF: Report given to GUZMAN Larry. Patient is in stable condition, plan of care endorsed.
[2019-05-08 08:00] VITALS: BP 134/82
--- NOTE | 2019-05-08 08:09 | NUR ---
NURSE NOTES: Pt awake/alert in bed, breathing easily on 2 lpm nasal cannula denies SOB and denies pain at this time . Vital signs stable with SR @ 87 on monitor. IV access lright fem triple, 2 lumen flushed with 10 ml NS and locked third lumen running 1/2 NS @ 75 ml/hr. Bed left in low position, side rails up x 2 and call light left near pt's hand.
--- NOTE | 2019-05-08 08:25 | General Progress Note ---
Assessment/Plan Problem List: (1) S/P BKA (below knee amputation) unilateral ICD Codes: Z89.519 - Acquired absence of unspecified leg below knee SNOMED: 17060139, 78112448, 205563323 (2) Stage 4 skin ulcer of sacral region ICD Codes: L98.429 - Non-pressure chronic ulcer of back with unspecified severity SNOMED: 39315930, 350372845 (3) Seizure disorder ICD Codes: G40.909 - Epilepsy, unspecified, not intractable, without status epilepticus SNOMED: 989192426 Status: progressing, unchanged Assessment/Plan: Assessment/Plan Status: progressing, unchanged Assessment/Plan: Assessment - Resp failure - resolved - anemia - PVD -RI Recommendations - on po diet -neg stool ob -fu pulm recs - Follow labs - abx Subjective Allergies: Coded Allergies: Grits (Unverified Allergy, Unknown, 07/06/17) [place] (Unverified Allergy, Unknown, 07/06/17) Objective Last 24 Hour Vital Signs Date Time Temp Pulse Resp B/P (MAP) Pulse Ox O2 Delivery O2 Flow Rate FiO2 05/08/19 04:00 71 05/08/19 04:00 98.0 66 20 112/66 (81) 100 05/08/19 00:00 98.0 67 18 126/63 (84) 96 05/08/19 00:00 74 05/07/19 22:54 65 20 97 Nasal Cannula 2.0 28 62 20 95 05/07/19 21:00 Nasal Cannula 2.0 Nasal Cannula 2.0 05/07/19 20:00 83 05/07/19 20:00 97.7 82 20 137/79 (98) 100 05/07/19 19:23 94 18 99 Nasal Cannula 2.0 28 92 20 97 05/07/19 16:25 72 05/07/19 16:00 97.3 88 19 139/95 (110) 98 05/07/19 14:58 78 18 99 Nasal Cannula 2.0 28 80 20 97 05/07/19 12:00 98.1 83 21 150/92 (111) 97 05/07/19 11:39 76 05/07/19 10:42 70 15 100 Nasal Cannula 2.0 28 68 17 98 05/07/19 09:00 Nasal Cannula 2.0 Nasal Cannula 2.0 Intake and Output 05/07/19 05/08/19 18:59 06:59 Intake Total 1455 ml Output Total 900 ml Balance 555 ml Intake Oral 600 ml IV Total 855 ml Other 900 ml # Bowel Movements 1 1 Laboratory Tests 05/08/19 06:35: White Blood Count [Pending], Red Blood Count [Pending], Hemoglobin [Pending], Hematocrit [Pending], Mean Corpuscular Volume [Pending], Mean Corpuscular Hemoglobin [Pending], Mean Corpuscular Hemoglobin Concent [Pending], Red Cell Distribution Width [Pending], Platelet Count [Pending], Mean Platelet Volume [ Pending], Neutrophils (%) (Auto) [Pending], Lymphocytes (%) (Auto) [Pending], Monocytes (%) (Auto) [Pending], Eosinophils (%) (Auto) [Pending], Basophils (%) (Auto) [Pending], Sodium Level [Pending], Potassium Level [Pending], Chloride Level [Pending], Carbon Dioxide Level [Pending], Blood Urea Nitrogen [Pending], Creatinine [Pending], Estimat Glomerular Filtration Rate [Pending], Glucose Level [Pending], Calcium Level [Pending] Height (Feet): 5 Height (Inches): 3.00 Weight (Pounds): 218 General Appearance: alert EENT: normal ENT inspection Neck: supple Cardiovascular: normal rate Respiratory/Chest: decreased breath sounds Abdomen: normal bowel sounds, non tender, soft Extremities: non-tender Jared Hinds MD May 08, 2019 08:24
[2019-05-08] MEDS: Sodium Citrate 30ml ORAL SCH ×2 (08:28→18:04)
[2019-05-08] MEDS: Solu-MEDROL 40mg Inj IVP SCH (08:28)
[2019-05-08] MEDS: Lacosamide 50mg tablet ORAL SCH (08:28)
[2019-05-08 08:37] LABS: BASOPHILS % (AUTO) 1.1 % (0.0-2.0); EOSINOPHILS % (AUTO) 0.1 % (0.0-3.0); HEMATOCRIT 25.9 % (37.0-47.0); LYMPHOCYTES % (AUTO) 14.3 % (20.0-45.0); MEAN CORPUSCULAR VOLUME 95 FL (80-99); MONOCYTES % (AUTO) 8.5 % (1.0-10.0); PLATELET COUNT 376 K/UL (150-450); RED BLOOD COUNT 2.74 M/UL (4.20-5.40); RED CELL DISTRIBUTION WIDTH 13.9 % (11.6-14.8); WHITE BLOOD COUNT 16.1 K/UL (4.8-10.8)
[2019-05-08] MEDS: Heparin 5000 units/ml inj SUBQ SCH ×2 (08:38→20:46)
[2019-05-08 08:44] LABS: ANION GAP 8 mmol/L (5-15); BLOOD UREA NITROGEN 61 mg/dL (7-18); CALCIUM 9.1 MG/DL (8.5-10.1); CARBON DIOXIDE 27 MMOL/L (21-32); CHLORIDE 105 MMOL/L (98-107); CREATININE 1.6 MG/DL (0.55-1.30); POTASSIUM 4.9 MMOL/L (3.5-5.1); SODIUM 140 MMOL/L (136-145)
[2019-05-08] MEDS: Meropenem 1 GM in NS 55 ML IVPB SCH ×2 (09:00→20:45)
--- NOTE | 2019-05-08 10:54 | Infectious Diseases Prog Note ---
Assessment/Plan Assessment/Plan IMPRESSION: E. coli sepsis E. coli ESBL UTI, E. coli pneumonia, Acute respiratory failure COPD, anemia, acute renal failure, chronic kidney disease, Right hydronephrosis, Sacral ulcer. RECOMMENDATION: Continue Meropenem Replace R nephrostomy tube Subjective ROS Limited/Unobtainable: Yes Constitutional: Reports: no symptoms, other - feels better Gastrointestinal/Abdominal: Reports: no symptoms Genitourinary: Reports: no symptoms Musculoskeletal: Reports: pain, other - back pain Allergies: Coded Allergies: Grits (Unverified Allergy, Unknown, 07/06/17) [place] (Unverified Allergy, Unknown, 07/06/17) Objective Vital Signs Last 24 Hour Vital Signs Date Time Temp Pulse Resp B/P (MAP) Pulse Ox O2 Delivery O2 Flow Rate FiO2 05/08/19 04:00 71 05/08/19 04:00 98.0 66 20 112/66 (81) 100 05/08/19 00:00 98.0 67 18 126/63 (84) 96 05/08/19 00:00 74 05/07/19 22:54 65 20 97 Nasal Cannula 2.0 28 62 20 95 05/07/19 21:00 Nasal Cannula 2.0 Nasal Cannula 2.0 05/07/19 20:00 83 05/07/19 20:00 97.7 82 20 137/79 (98) 100 05/07/19 19:23 94 18 99 Nasal Cannula 2.0 28 92 20 97 05/07/19 16:25 72 05/07/19 16:00 97.3 88 19 139/95 (110) 98 05/07/19 14:58 78 18 99 Nasal Cannula 2.0 28 80 20 97 05/07/19 12:00 98.1 83 21 150/92 (111) 97 05/07/19 11:39 76 Height (Feet): 5 Height (Inches): 3.00 Weight (Pounds): 218 General Appearance: no acute distress HEENT: mucous membranes moist Respiratory/Chest: lungs clear, other - oxygen by nasal cannula Cardiovascular: normal rate Abdomen: soft, non tender Genitourinary: other - left nephrostomy tube Extremities: no edema, other - left BKA Skin: rash, other - on back Laboratory Tests Test 05/08/19 06:35 White Blood Count 16.1 K/UL (4.8-10.8) H Red Blood Count 2.74 M/UL (4.20-5.40) L Hemoglobin 9.0 G/DL (12.0-16.0) L Hematocrit 25.9 % (37.0-47.0) L Mean Corpuscular Volume 95 FL (80-99) Mean Corpuscular Hemoglobin 32.7 PG (27.0-31.0) H Mean Corpuscular Hemoglobin Concent 34.6 G/DL (32.0-36.0) Red Cell Distribution Width 13.9 % (11.6-14.8) Platelet Count 376 K/UL (150-450) Mean Platelet Volume 4.9 FL (6.5-10.1) L Neutrophils (%) (Auto) 76.0 % (45.0-75.0) H Lymphocytes (%) (Auto) 14.3 % (20.0-45.0) L Monocytes (%) (Auto) 8.5 % (1.0-10.0) Eosinophils (%) (Auto) 0.1 % (0.0-3.0) Basophils (%) (Auto) 1.1 % (0.0-2.0) Sodium Level 140 MMOL/L (136-145) Potassium Level 4.9 MMOL/L (3.5-5.1) Chloride Level 105 MMOL/L (98-107) Carbon Dioxide Level 27 MMOL/L (21-32) Anion Gap 8 mmol/L (5-15) Blood Urea Nitrogen 61 mg/dL (7-18) H Creatinine 1.6 MG/DL (0.55-1.30) H Estimat Glomerular Filtration Rate 33.2 mL/min (>60) Glucose Level 90 MG/DL (74-106) Calcium Level 9.1 MG/DL (8.5-10.1) Current Medications Medications (Trade) Dose Ordered Sig/William Route PRN Reason Start Time Stop Time Status Last Admin Dose Admin Acetaminophen (Tylenol) 650 mg Q6H PRN ORAL Mild Pain/Temp > 100.5 05/07/19 14:00 06/06/19 13:59 05/08/19 08:30 Albuterol/ Ipratropium (Albuterol/ Ipratropium) 3 ml Q4H PRN HHN Shortness of Breath 05/08/19 06:00 05/13/19 05:59 Allopurinol (allopurinoL) 300 mg DAILY ORAL 05/08/19 09:00 06/04/19 08:59 05/08/19 08:28 Chlorhexidine Gluconate (Genevieve-Hex 2%) 1 applic DAILY@2000 TOPIC 05/07/19 20:00 06/04/19 19:59 05/07/19 21:21 Dextrose (Dextrose 50%) 25 ml Q30M PRN IV Hypoglycemia 05/07/19 01:15 06/01/19 20:44 Dextrose (Dextrose 50%) 50 ml Q30M PRN IV Hypoglycemia 05/07/19 01:15 06/01/19 20:44 Gabapentin (Neurontin) 200 mg THREE TIMES A DAY ORAL 05/07/19 18:00 06/06/19 17:59 05/08/19 09:00 Heparin Sodium (Porcine) (Heparin 5000 units/ml) 5,000 units EVERY 12 HOURS SUBQ 05/07/19 09:00 06/01/19 20:59 05/08/19 08:38 Insulin Aspart (NovoLOG) AC+HS SUBQ 05/07/19 06:30 06/02/19 00:00 Lacosamide (Vimpat) 100 mg DAILY ORAL 05/07/19 09:00 06/03/19 08:59 05/08/19 08:28 Levetiracetam (Keppra) 250 mg Q12HR ORAL 05/07/19 21:00 06/06/19 20:59 05/08/19 08:27 Lorazepam (Ativan 2mg/ml 1ml) 0.5 mg Q2H PRN IV Agitation 05/07/19 02:00 05/09/19 17:59 Meropenem 1 gm/ Sodium Chloride 55 ml @ 110 mls/hr EVERY 12 HOURS IVPB 05/07/19 21:00 05/12/19 20:59 05/08/19 09:00 Methylprednisolone Sodium Succinate (Solu-MEDROL) 40 mg Q12HR IVP 05/07/19 09:00 06/01/19 21:59 05/08/19 08:28 Olanzapine (ZyPREXA) 5 mg BEDTIME ORAL 05/07/19 21:00 06/04/19 20:59 05/07/19 21:18 Pantoprazole (Protonix) 40 mg EVERY 12 HOURS ORAL 05/07/19 09:00 06/04/19 20:59 05/08/19 08:28 Sodium Chloride 1,000 ml @ 75 mls/hr [id number] IV 05/07/19 02:00 06/04/19 01:59 05/08/19 01:45 Sodium Citrate (Bicitra) 30 ml BID ORAL 05/07/19 09:00 06/03/19 09:44 05/08/19 08:28 Jose Solis MD May 08, 2019 10:54
[2019-05-08] MEDS ORDERED: Isovue-300 100ml vial INJ SCH (11:00)
[2019-05-08] MEDS ORDERED: Lidocaine 1% Plain 30 ml INJ SCH (11:00)
[2019-05-08 12:00] VITALS: BP 150/99
--- NOTE | 2019-05-08 12:36 | Nephrology Progress Note ---
Assessment/Plan Problem List: (1) Renal failure Assessment: acute on chronic (2) Dehydration (3) Respiratory failure Assessment: self extubated (4) Anemia (5) Hydronephrosis Assessment: nephrostomies Assessment Acute on Chronic Renal Failure + Severe dehydration- IMPROVING h/o ? kidney mass h/o hydronephrosis - has Nephrostomie Anemia Ventilator Dependent Respiratory failure pulmonary infiltrate / Urinary tract infection h/o ESBL UTI from snf Seizure disorder on Clonazepam and Gabapentin Schizophrenia Hypertension, presented with low BP Obesity Plan taper steroids per pulmonary Self extubated Hydrate pulmonary support Bicitra Transfuse as needed monitor renal parameters Urology eval avoid nephrotoxics per consultants Moderate right hydronephrosis. This is apparently new at least since the last exam from 07/12/2018. More recent exam had shown placement of a ureteral stent on the right which we're told was removed. Consider noncontrast CT for further evaluation. Left ureteral stent the partially visualized. No hydronephrosis in the left kidney. Subjective ROS Limited/Unobtainable: No Constitutional: Reports: malaise Objective Objective Last 24 Hour Vital Signs Date Time Temp Pulse Resp B/P (MAP) Pulse Ox O2 Delivery O2 Flow Rate FiO2 05/08/19 04:00 71 05/08/19 04:00 98.0 66 20 112/66 (81) 100 05/08/19 00:00 98.0 67 18 126/63 (84) 96 05/08/19 00:00 74 05/07/19 22:54 65 20 97 Nasal Cannula 2.0 28 62 20 95 05/07/19 21:00 Nasal Cannula 2.0 Nasal Cannula 2.0 05/07/19 20:00 83 05/07/19 20:00 97.7 82 20 137/79 (98) 100 05/07/19 19:23 94 18 99 Nasal Cannula 2.0 28 92 20 97 05/07/19 16:25 72 05/07/19 16:00 97.3 88 19 139/95 (110) 98 05/07/19 14:58 78 18 99 Nasal Cannula 2.0 28 80 20 97 Intake and Output 05/07/19 05/08/19 19:00 07:00 Intake Total 1455 ml Output Total 900 ml Balance 555 ml Intake Oral 600 ml IV Total 855 ml Other 900 ml # Bowel Movements 1 1 Laboratory Tests 05/08/19 06:35: White Blood Count 16.1H, Red Blood Count 2.74L, Hemoglobin 9.0L, Hematocrit 25.9L, Mean Corpuscular Volume 95, Mean Corpuscular Hemoglobin 32.7H, Mean Corpuscular Hemoglobin Concent 34.6, Red Cell Distribution Width 13.9, Platelet Count 376, Mean Platelet Volume 4.9L, Neutrophils (%) (Auto) 76.0H, Lymphocytes (%) (Auto) 14.3L, Monocytes (%) (Auto) 8.5, Eosinophils (%) (Auto) 0.1, Basophils (%) (Auto) 1.1, Sodium Level 140, Potassium Level 4.9, Chloride Level 105, Carbon Dioxide Level 27, Anion Gap 8, Blood Urea Nitrogen 61H, Creatinine 1.6H, Estimat Glomerular Filtration Rate 33.2, Glucose Level 90, Calcium Level 9.1 Height (Feet): 5 Height (Inches): 3.00 Weight (Pounds): 218 General Appearance: no apparent distress Cardiovascular: normal rate Respiratory/Chest: decreased breath sounds Abdomen: soft Derrell Hatch MD May 08, 2019 12:36
--- NOTE | 2019-05-08 13:12 | General Progress Note ---
Assessment/Plan Problem List: (1) Respiratory distress ICD Codes: R06.03 - Acute respiratory distress SNOMED: 660425494 (2) Leukocytosis ICD Codes: D72.829 - Elevated white blood cell count, unspecified SNOMED: 953755873, 783263084 (3) Renal failure ICD Codes: N19 - Unspecified kidney failure SNOMED: 63956947 (4) Respiratory failure ICD Codes: J96.90 - Respiratory failure, unspecified, unspecified whether with hypoxia or hypercapnia SNOMED: 929829473 (5) Pneumonia ICD Codes: J18.9 - Pneumonia, unspecified organism SNOMED: 088166043 (6) Schizophrenia ICD Codes: F20.9 - Schizophrenia, unspecified SNOMED: 88174303 (7) Seizure disorder ICD Codes: G40.909 - Epilepsy, unspecified, not intractable, without status epilepticus SNOMED: 403679964 (8) Hypoalbuminemia ICD Codes: E88.09 - Other disorders of plasma-protein metabolism, not elsewhere classified SNOMED: 518832743 Status: progressing, unchanged Assessment/Plan: pna is improving cri anemia of chronic disease persistent leukocytosis is getting worse arf /azotemia is getting better taper steroids nephrostomy tube Subjective ROS Limited/Unobtainable: Yes Allergies: Coded Allergies: Grits (Unverified Allergy, Unknown, 07/06/17) [place] (Unverified Allergy, Unknown, 07/06/17) Objective Last 24 Hour Vital Signs Date Time Temp Pulse Resp B/P (MAP) Pulse Ox O2 Delivery O2 Flow Rate FiO2 05/08/19 04:00 71 05/08/19 04:00 98.0 66 20 112/66 (81) 100 05/08/19 00:00 98.0 67 18 126/63 (84) 96 05/08/19 00:00 74 05/07/19 22:54 65 20 97 Nasal Cannula 2.0 28 62 20 95 05/07/19 21:00 Nasal Cannula 2.0 Nasal Cannula 2.0 05/07/19 20:00 83 05/07/19 20:00 97.7 82 20 137/79 (98) 100 05/07/19 19:23 94 18 99 Nasal Cannula 2.0 28 92 20 97 05/07/19 16:25 72 05/07/19 16:00 97.3 88 19 139/95 (110) 98 05/07/19 14:58 78 18 99 Nasal Cannula 2.0 28 80 20 97 Intake and Output 05/07/19 05/08/19 19:00 07:00 Intake Total 1455 ml Output Total 900 ml Balance 555 ml Intake Oral 600 ml IV Total 855 ml Other 900 ml # Bowel Movements 1 1 Laboratory Tests 05/08/19 06:35: White Blood Count 16.1H, Red Blood Count 2.74L, Hemoglobin 9.0L, Hematocrit 25.9L, Mean Corpuscular Volume 95, Mean Corpuscular Hemoglobin 32.7H, Mean Corpuscular Hemoglobin Concent 34.6, Red Cell Distribution Width 13.9, Platelet Count 376, Mean Platelet Volume 4.9L, Neutrophils (%) (Auto) 76.0H, Lymphocytes (%) (Auto) 14.3L, Monocytes (%) (Auto) 8.5, Eosinophils (%) (Auto) 0.1, Basophils (%) (Auto) 1.1, Sodium Level 140, Potassium Level 4.9, Chloride Level 105, Carbon Dioxide Level 27, Anion Gap 8, Blood Urea Nitrogen 61H, Creatinine 1.6H, Estimat Glomerular Filtration Rate 33.2, Glucose Level 90, Calcium Level 9.1 Height (Feet): 5 Height (Inches): 3.00 Weight (Pounds): 218 Neck: supple Cardiovascular: normal rate Respiratory/Chest: lungs clear Isela Rubio MD May 08, 2019 13:12
--- NOTE | 2019-05-08 14:14 | Hematology/Onc Progress Note ---
Assessment/Plan Assessment/Plan Assessment/Plan: # Anemia of chronic disease due to underlying chronic medical issues, multifactorial --> Anemia workup has been ordered, rule out gi bleed and no hemolysis is seen, ferritin is 1551 --> No evidence of hemolysis is noted, peripheral smear has been reviewed. --> Hgb goal >7. Transfuse prn. --> Epogen or iron at this time is not particularly indicated --> Medications have been reviewed --> stool ob negative --> hgb trend 11.7-->10.7-->7.4-->7.1-->8.6-->9 # Leukocytosis is likely related to infection, reactive process, v infection v intubation, in past had esbl uti --> have reviewed peripheral smear and bandemia/neutrophilia noted --> continue antibiotics if they have been started by ID team --> monitor for resolution --> wbc trend: 14.2-->16.1 --> also is on steroids # Left kidney mass -- 5 cm low-attenuation lesion demonstrating slightly higher than normal fluid attenuation coming off of the upper pole left kidney --> likely represents a complex possibly proteinaceous cyst, but necrotic solid mass also possible --> as per uro, appears stable # Dehydration --> ivf have been started --> anti-nausea meds started # S/P BKA (below knee amputation) unilateral --> left leg s/p amputation # Anxiety --> as per psych # Left hydronephrosis --> per uro # Resp failure s/p intubation --> intub 05/02 --> extubated 05/04 # Critically ill requiring icu adm on 05/03 # Dvt ppx heparin sq The timing of this note does not necessarily reflect the time of the patient was seen. Greatly appreciate consultation. Subjective Allergies: Coded Allergies: Grits (Unverified Allergy, Unknown, 07/06/17) [place] (Unverified Allergy, Unknown, 07/06/17) Subjective 05/04: no bleeding or chills, no night sweats, cbc noted, on abx, gett prbc today , consent signed 05/05: has refused bipap, otherwise no bleeding or chills, no night sweats, cbc pending 05/06: awake and alert, no acute distress, h/h stable nc, gillian 05/08: awake, no acute events, stool ob negative, nc, labs reviewed Objective Objective Current Medications Medications (Trade) Dose Ordered Sig/William Route PRN Reason Start Time Stop Time Status Last Admin Dose Admin Acetaminophen (Tylenol) 650 mg Q6H PRN ORAL Mild Pain/Temp > 100.5 05/07/19 14:00 06/06/19 13:59 05/08/19 08:30 Albuterol/ Ipratropium (Albuterol/ Ipratropium) 3 ml Q4H PRN HHN Shortness of Breath 05/08/19 06:00 05/13/19 05:59 Allopurinol (allopurinoL) 300 mg DAILY ORAL 05/08/19 09:00 06/04/19 08:59 05/08/19 08:28 Chlorhexidine Gluconate (Genevieve-Hex 2%) 1 applic DAILY@2000 TOPIC 05/07/19 20:00 06/04/19 19:59 05/07/19 21:21 Dextrose (Dextrose 50%) 25 ml Q30M PRN IV Hypoglycemia 05/07/19 01:15 06/01/19 20:44 Dextrose (Dextrose 50%) 50 ml Q30M PRN IV Hypoglycemia 05/07/19 01:15 06/01/19 20:44 Gabapentin (Neurontin) 200 mg THREE TIMES A DAY ORAL 05/07/19 18:00 06/06/19 17:59 05/08/19 13:00 Heparin Sodium (Porcine) (Heparin 5000 units/ml) 5,000 units EVERY 12 HOURS SUBQ 05/07/19 09:00 06/01/19 20:59 05/08/19 08:38 Insulin Aspart (NovoLOG) AC+HS SUBQ 05/07/19 06:30 06/02/19 00:00 Lacosamide (Vimpat) 100 mg DAILY ORAL 05/07/19 09:00 06/03/19 08:59 05/08/19 08:28 Levetiracetam (Keppra) 250 mg Q12HR ORAL 05/07/19 21:00 06/06/19 20:59 05/08/19 08:27 Lorazepam (Ativan 2mg/ml 1ml) 0.5 mg Q2H PRN IV Agitation 05/07/19 02:00 05/09/19 17:59 Meropenem 1 gm/ Sodium Chloride 55 ml @ 110 mls/hr EVERY 12 HOURS IVPB 05/07/19 21:00 05/12/19 20:59 05/08/19 09:00 Methylprednisolone Sodium Succinate (Solu-MEDROL) 40 mg Q12HR IVP 05/07/19 09:00 06/01/19 21:59 05/08/19 08:28 Olanzapine (ZyPREXA) 5 mg BEDTIME ORAL 05/07/19 21:00 06/04/19 20:59 05/07/19 21:18 Pantoprazole (Protonix) 40 mg EVERY 12 HOURS ORAL 05/07/19 09:00 06/04/19 20:59 05/08/19 08:28 Sodium Chloride 1,000 ml @ 75 mls/hr [id number] IV 05/07/19 02:00 06/04/19 01:59 05/08/19 01:45 Sodium Citrate (Bicitra) 30 ml BID ORAL 05/07/19 09:00 06/03/19 09:44 05/08/19 08:28 Last 24 Hour Vital Signs Date Time Temp Pulse Resp B/P (MAP) Pulse Ox O2 Delivery O2 Flow Rate FiO2 05/08/19 04:00 71 05/08/19 04:00 98.0 66 20 112/66 (81) 100 05/08/19 00:00 98.0 67 18 126/63 (84) 96 05/08/19 00:00 74 05/07/19 22:54 65 20 97 Nasal Cannula 2.0 28 62 20 95 05/07/19 21:00 Nasal Cannula 2.0 Nasal Cannula 2.0 05/07/19 20:00 83 05/07/19 20:00 97.7 82 20 137/79 (98) 100 05/07/19 19:23 94 18 99 Nasal Cannula 2.0 28 92 20 97 05/07/19 16:25 72 05/07/19 16:00 97.3 88 19 139/95 (110) 98 05/07/19 14:58 78 18 99 Nasal Cannula 2.0 28 80 20 97 05/07/19 12:00 98.1 83 21 150/92 (111) 97 05/07/19 11:39 76 05/07/19 10:42 70 15 100 Nasal Cannula 2.0 28 68 17 98 05/07/19 09:00 Nasal Cannula 2.0 Nasal Cannula 2.0 05/07/19 08:00 98.1 71 20 143/84 (103) 97 05/07/19 07:59 76 05/07/19 07:07 Nasal Cannula 2.0 28 05/07/19 07:07 61 16 99 Nasal Cannula 2.0 28 59 16 98 05/07/19 04:00 66 05/07/19 04:00 97.6 66 20 152/96 (114) 96 05/07/19 03:03 63 16 95 Nasal Cannula 2.0 28 59 16 92 05/07/19 02:59 Nasal Cannula 2.0 28 05/07/19 02:59 Nasal Cannula 2.0 28 05/07/19 00:00 Nasal Cannula 2.0 Nasal Cannula 2.0 05/07/19 00:00 68 05/07/19 00:00 97.5 68 18 100/61 (74) 95 05/06/19 22:53 Nasal Cannula 2.0 28 05/06/19 22:53 75 20 97 Nasal Cannula 2.0 28 73 20 94 05/06/19 22:52 Nasal Cannula 2.0 28 05/06/19 22:51 94 05/06/19 20:00 73 05/06/19 20:00 97.9 85 18 100/77 (85) 95 05/06/19 20:00 Nasal Cannula 2.0 Nasal Cannula 2.0 05/06/19 19:08 68 18 96 Nasal Cannula 2.0 28 64 18 92 05/06/19 18:48 Nasal Cannula 2.0 28 05/06/19 18:48 Nasal Cannula 2.0 28 05/06/19 16:38 98.2 79 18 128/80 (96) 90 05/06/19 16:00 72 05/06/19 16:00 Nasal Cannula 2.0 Nasal Cannula 2.0 05/06/19 15:42 80 18 95 Nasal Cannula 2.0 28 05/06/19 15:42 75 17 97 Nasal Cannula 2.0 28 80 18 95 05/06/19 15:42 71 16 95 Nasal Cannula 2.0 28 Intake and Output 05/07/19 05/08/19 19:00 07:00 Intake Total 1455 ml Output Total 900 ml Balance 555 ml Intake Oral 600 ml IV Total 855 ml Other 900 ml # Bowel Movements 1 1 Labs Test 05/06/19 04:15 05/06/19 14:20 05/06/19 14:55 05/07/19 06:00 White Blood Count 14.2 K/UL (4.8-10.8) 13.0 K/UL (4.8-10.8) Red Blood Count 2.63 M/UL (4.20-5.40) 2.74 M/UL (4.20-5.40) Hemoglobin 8.6 G/DL (12.0-16.0) 9.0 G/DL (12.0-16.0) Hematocrit 24.9 % (37.0-47.0) 26.1 % (37.0-47.0) Mean Corpuscular Volume 94 FL (80-99) 95 FL (80-99) Mean Corpuscular Hemoglobin 32.7 PG (27.0-31.0) 32.7 PG (27.0-31.0) Mean Corpuscular Hemoglobin Concent 34.6 G/DL (32.0-36.0) 34.4 G/DL (32.0-36.0) Red Cell Distribution Width 14.4 % (11.6-14.8) 13.6 % (11.6-14.8) Platelet Count 356 K/UL (150-450) 360 K/UL (150-450) Mean Platelet Volume 5.1 FL (6.5-10.1) 5.0 FL (6.5-10.1) Neutrophils (%) (Auto) 80.3 % (45.0-75.0) 73.1 % (45.0-75.0) Lymphocytes (%) (Auto) 8.8 % (20.0-45.0) 15.7 % (20.0-45.0) Monocytes (%) (Auto) 7.8 % (1.0-10.0) 10.1 % (1.0-10.0) Eosinophils (%) (Auto) 1.8 % (0.0-3.0) 0.1 % (0.0-3.0) Basophils (%) (Auto) 1.2 % (0.0-2.0) 1.0 % (0.0-2.0) Sodium Level 141 MMOL/L (136-145) 137 MMOL/L (136-145) Potassium Level 4.1 MMOL/L (3.5-5.1) 4.1 MMOL/L (3.5-5.1) Chloride Level 107 MMOL/L (98-107) 102 MMOL/L (98-107) Carbon Dioxide Level 24 MMOL/L (21-32) 23 MMOL/L (21-32) Anion Gap 10 mmol/L (5-15) 12 mmol/L (5-15) Blood Urea Nitrogen 80 mg/dL (7-18) 74 mg/dL (7-18) Creatinine 2.3 MG/DL (0.55-1.30) 2.1 MG/DL (0.55-1.30) Estimat Glomerular Filtration Rate 21.9 mL/min (>60) 24.3 mL/min (>60) Glucose Level 125 MG/DL (74-106) 115 MG/DL (74-106) Uric Acid 7.9 MG/DL (2.6-7.2) Calcium Level 8.9 MG/DL (8.5-10.1) 9.2 MG/DL (8.5-10.1) Phosphorus Level 4.6 MG/DL (2.5-4.9) 4.7 MG/DL (2.5-4.9) Magnesium Level 2.3 MG/DL (1.8-2.4) 1.6 MG/DL (1.8-2.4) Total Bilirubin 0.3 MG/DL (0.2-1.0) 0.2 MG/DL (0.2-1.0) Aspartate Amino Transf (AST/SGOT) 18 U/L (15-37) 21 U/L (15-37) Alanine Aminotransferase (ALT/SGPT) 20 U/L (12-78) 26 U/L (12-78) Alkaline Phosphatase 60 U/L (46-116) 63 U/L (46-116) Total Protein 7.0 G/DL (6.4-8.2) 6.7 G/DL (6.4-8.2) Albumin 1.9 G/DL (3.4-5.0) 2.0 G/DL (3.4-5.0) Globulin 5.1 g/dL 4.7 g/dL Albumin/Globulin Ratio 0.4 (1.0-2.7) 0.4 (1.0-2.7) Stool Occult Blood Negative (NEGATIVE) Arterial Blood pH 7.401 (7.350-7.450) Arterial Blood Partial Pressure CO2 35.2 mmHg (35.0-45.0) Arterial Blood Partial Pressure O2 59.3 mmHg (75.0-100.0) Arterial Blood HCO3 21.4 mmol/L (22.0-26.0) Arterial Blood Oxygen Saturation 89.9 % (95-100) Arterial Blood Base Excess -3.0 (-2-2) Miguel Angel Test Positive C-Reactive Protein, Quantitative 3.2 mg/dL (0.00-0.90) Pro-B-Type Natriuretic Peptide 1524 pg/mL (0-125) Test 05/08/19 06:35 White Blood Count 16.1 K/UL (4.8-10.8) Red Blood Count 2.74 M/UL (4.20-5.40) Hemoglobin 9.0 G/DL (12.0-16.0) Hematocrit 25.9 % (37.0-47.0) Mean Corpuscular Volume 95 FL (80-99) Mean Corpuscular Hemoglobin 32.7 PG (27.0-31.0) Mean Corpuscular Hemoglobin Concent 34.6 G/DL (32.0-36.0) Red Cell Distribution Width 13.9 % (11.6-14.8) Platelet Count 376 K/UL (150-450) Mean Platelet Volume 4.9 FL (6.5-10.1) Neutrophils (%) (Auto) 76.0 % (45.0-75.0) Lymphocytes (%) (Auto) 14.3 % (20.0-45.0) Monocytes (%) (Auto) 8.5 % (1.0-10.0) Eosinophils (%) (Auto) 0.1 % (0.0-3.0) Basophils (%) (Auto) 1.1 % (0.0-2.0) Sodium Level 140 MMOL/L (136-145) Potassium Level 4.9 MMOL/L (3.5-5.1) Chloride Level 105 MMOL/L (98-107) Carbon Dioxide Level 27 MMOL/L (21-32) Anion Gap 8 mmol/L (5-15) Blood Urea Nitrogen 61 mg/dL (7-18) Creatinine 1.6 MG/DL (0.55-1.30) Estimat Glomerular Filtration Rate 33.2 mL/min (>60) Glucose Level 90 MG/DL (74-106) Calcium Level 9.1 MG/DL (8.5-10.1) Height (Feet): 5 Height (Inches): 3.00 Weight (Pounds): 218 Objective PE Vital Signs Gen: unresponsive Pulm:++self-extubated CV: RRR, no mgr Abd: soft, nt, d Ext: no cce, s/p bka lle Labs: noted Colby Canada MD May 08, 2019 14:13
[2019-05-08 16:00] VITALS: BP 121/71
--- NOTE | 2019-05-08 19:20 | NUR ---
NURSE NOTES: Received report from Laron Vaughn RN. Pt in stable condition, denies pain at this time, SR. Will continue plan of care and close monitoring.
--- NOTE | 2019-05-08 19:21 | Cardiology Progress Note ---
Assessment/Plan Assessment/Plan 1. Hypotension, most likely septic shock, resolved, 2D echocardiography with normal LV systolic and diastolic function with LVEF of approximately 65%. 2. History of peripheral vascular disease, status post left BKA. 3. History of CVA/TIA. 4. Acute respiratory failure, resolved. Chest x-ray shows no acute cardiopulmonary disease. 5. Obstructive uropathy, status post nephrostomy tube placement. 6. Acute kidney injury on CKD, creat down to 1.6. 7. Seizure disorder. 8. Mixed hyperlipidemia with metabolic syndrome. Subjective Subjective Sinus rhythm at rate of 83. Objective Last 24 Hour Vital Signs Date Time Temp Pulse Resp B/P (MAP) Pulse Ox O2 Delivery O2 Flow Rate FiO2 05/08/19 16:00 83 05/08/19 16:00 98.0 78 16 121/71 (88) 100 05/08/19 12:00 80 05/08/19 12:00 98.2 81 17 150/99 (116) 93 05/08/19 09:00 Nasal Cannula 2.0 Nasal Cannula 2.0 05/08/19 08:00 97.7 86 19 134/82 (99) 100 05/08/19 08:00 89 05/08/19 04:00 71 05/08/19 04:00 98.0 66 20 112/66 (81) 100 05/08/19 00:00 98.0 67 18 126/63 (84) 96 05/08/19 00:00 74 05/07/19 22:54 65 20 97 Nasal Cannula 2.0 28 62 20 95 05/07/19 21:00 Nasal Cannula 2.0 Nasal Cannula 2.0 05/07/19 20:00 83 05/07/19 20:00 97.7 82 20 137/79 (98) 100 05/07/19 19:23 94 18 99 Nasal Cannula 2.0 28 92 20 97 Intake and Output 05/07/19 05/08/19 19:00 07:00 Intake Total 1455 ml Output Total 900 ml Balance 555 ml Intake Oral 600 ml IV Total 855 ml Other 900 ml # Bowel Movements 1 1 2D Echo: LVEF 60%, RVSP 31 mmHg, Normal LV Diastolic fxn. Laboratory Tests Test 05/08/19 06:35 White Blood Count 16.1 K/UL (4.8-10.8) H Red Blood Count 2.74 M/UL (4.20-5.40) L Hemoglobin 9.0 G/DL (12.0-16.0) L Hematocrit 25.9 % (37.0-47.0) L Mean Corpuscular Volume 95 FL (80-99) Mean Corpuscular Hemoglobin 32.7 PG (27.0-31.0) H Mean Corpuscular Hemoglobin Concent 34.6 G/DL (32.0-36.0) Red Cell Distribution Width 13.9 % (11.6-14.8) Platelet Count 376 K/UL (150-450) Mean Platelet Volume 4.9 FL (6.5-10.1) L Neutrophils (%) (Auto) 76.0 % (45.0-75.0) H Lymphocytes (%) (Auto) 14.3 % (20.0-45.0) L Monocytes (%) (Auto) 8.5 % (1.0-10.0) Eosinophils (%) (Auto) 0.1 % (0.0-3.0) Basophils (%) (Auto) 1.1 % (0.0-2.0) Sodium Level 140 MMOL/L (136-145) Potassium Level 4.9 MMOL/L (3.5-5.1) Chloride Level 105 MMOL/L (98-107) Carbon Dioxide Level 27 MMOL/L (21-32) Anion Gap 8 mmol/L (5-15) Blood Urea Nitrogen 61 mg/dL (7-18) H Creatinine 1.6 MG/DL (0.55-1.30) H Estimat Glomerular Filtration Rate 33.2 mL/min (>60) Glucose Level 90 MG/DL (74-106) Calcium Level 9.1 MG/DL (8.5-10.1) Objective HEENT: Atraumatic and normocephalic. Anicteric. Pupils are equal, round, and reactive to light and accommodation. Conjunctival pallor is present. NECK: JVP <5cm. No carotid bruit. Carotid upstrokes 2+ bilaterally. CARDIOVASCULAR: Normal S1, S2. Regular rate and rhythm. No murmurs, gallops, or rubs. PMI is at fourth intercostal space in the midclavicular line. LUNGS: Clear to auscultation bilaterally. ABDOMEN: Soft, nondistended. No hepatosplenomegaly. Positive bowel sounds. Bilateral nephrostomy tubes. EXTREMITIES: Left BKA, otherwise no edema, clubbing, or cyanosis. Justo Merchant MD May 08, 2019 19:21
[2019-05-08 20:00] VITALS: BP 127/81
--- NOTE | 2019-05-08 20:44 | Pulmonolgy Critical Care Note ---
Critical Care - Asmt/Plan Assessment/Plan: Pulmonary Progress Note HPI This patient is a 58 year old woman with past history of Chronic Obstructive Pulmonary Disease, Seizures, Previous CVA/TIA, Hypertension, CAD, Cervical cancer s/p Uropathy - has B/L Nephrostomy tubes, Chronic kidney disease, Peripheral vascular disease sp LLE amputation, Schizophrenia, admitted from long-term facility with shortness of breath, fever, N/V and hypoxemia. On NC O2 Improved metabolic acidosis Hematology following for anemia UTI - ESBL GNR, pos BC for GNR Has femoral line - PICC could not be inserted, denies SOB Allergies: Grits [place] Past Medical History: see triage record, old chart reviewed, HTN, CAD, asthma, COPD, GERD, CVA/TIA, seizures, psych hx - schizophrenia, renal disease, other - cervical ca s/p obstructive uropathy s/p BL nephrostomy tubes, muscle weakness Past Surgical History: other - L. BKA Social History: Denies: smoking, alcohol use, drug use All Other Systems: negative except mentioned in HPI Physical Exam Vital Signs Noted General Appearance: no apparent distress, awake, non-toxic Head: normocephalic, atraumatic Eyes: bilateral eye normal inspection, bilateral eye PERRL ENT: hearing grossly normal, normal pharynx Neck: full range of motion, supple/symm/no masses Respiratory: chest non-tender, CTAB Cardiovascular: regular rate, rhythm, HS1, HS2 normal, no edema Gastrointestinal: normal bowel sounds, non tender, soft, non-distended, no guarding, no rebound Rectal: deferred Musculoskeletal: back normal, normal range of motion, non-tender, other - L. BKA Neurologic: awake, interactive, no focal signs Impression: Chronic Obstructive Pulmonary Disease Exacerbation Possible Pneumonia Chronic kidney disease Hydronephrosis, L nephrostomy Urinary Tract Infection, ESBL Anemia Leukocytosis Seizures Previous CVA/TIA Hypertension CAD Cervical cancer s/p Uropathy - previous R Nephrostomy tube Peripheral vascular disease sp LLE amputation Schizophrenia Plan - IV Antibiotics - Bipap PRN - ABG this AM - IV Steroids - wean - 40 daily - can be DC on Medrol dose pack - HHN - IVF per Renal - ISS - PPX - Monitor labs - Pressors PRN - NGT - DOUGH PANNER Medications Time: 45 minutes, 23 minutes care co-ordination DW: RN Laboratory Tests Noted EKG: Rate: normal Rhythm: NSR ST Segments: no acute changes Chest X-Ray: no effusion, no pneumothorax, other possible- RLL opacity CXR #2: Appropriate ET tube placement s/p RSI LE Dupplex: negative URINE CULTURE Final COMMENTS: KNOWN ESBL. Organism 1 ESCHERICHIA COLI - ESBL COLONY COUNT: >100,000 CFU/ML ESCCOL ESB M.I.C. RX --------- --- AMPICILLIN >=32 R CEFAZOLIN >=64 R CEFTAZIDIME R CEFTRIAXONE >=64 R CEFEPIME R CIPROFLOXACIN >=4 R GENTAMICIN <=1 S LEVOFLOXACIN >=8 R IMIPENEM <=0.25 S NITROFURANTOIN <=16 S TIGECYCLINE <=0.5 S TRIMETHOPRIM/SULFA <=20 S AMIKACIN 16 S PIPERACILLIN/TAZOBACTAM 8 S Critical Care - Objective Last 24 Hour Vital Signs Date Time Temp Pulse Resp B/P (MAP) Pulse Ox O2 Delivery O2 Flow Rate FiO2 05/08/19 16:00 83 05/08/19 16:00 98.0 78 16 121/71 (88) 100 05/08/19 12:00 80 05/08/19 12:00 98.2 81 17 150/99 (116) 93 05/08/19 09:00 Nasal Cannula 2.0 Nasal Cannula 2.0 05/08/19 08:00 97.7 86 19 134/82 (99) 100 05/08/19 08:00 89 05/08/19 04:00 71 05/08/19 04:00 98.0 66 20 112/66 (81) 100 05/08/19 00:00 98.0 67 18 126/63 (84) 96 05/08/19 00:00 74 05/07/19 22:54 65 20 97 Nasal Cannula 2.0 28 62 20 95 05/07/19 21:00 Nasal Cannula 2.0 Nasal Cannula 2.0 Accucheck: 134 Critical Care - Subjective ROS Limited/Unobtainable: No FI02: 28 Vent Support Breath Rate: 22 Vent Support Mode: BiLevel Vent Tidal Volume: 450 Sputum Amount: None PEEP: 5.0 PIP: 41 Tube Feeding Amount: 0 I&O: Intake and Output 05/07/19 05/08/19 18:59 06:59 Intake Total 1455 ml Output Total 900 ml Balance 555 ml Intake Oral 600 ml IV Total 855 ml Other 900 ml # Bowel Movements 1 1 ET-Tube: 7.5 ET Position: 22 Gabino Smith MD May 08, 2019 20:44
[2019-05-08] MEDS: Dyna-Hex 2% Top Sol 2oz TOPIC SCH (20:45)
[2019-05-08] MEDS: LORazepam Inj 2mg/ml 1ml IV PRN (22:42)
[2019-05-09] VITALS: BP 95/44
[2019-05-09 04:00] VITALS: BP 116/67
[2019-05-09] MEDS: NovoLOG Insulin Flexpen SUBQ SCH ×4 (06:30→21:00)
--- NOTE | 2019-05-09 07:09 | NUR ---
HAND-OFF: Report given to Laron Vaughn RN. Pt in stable condition, denies pain at this time, SR. Will continue plan of care and close monitoring.
--- NOTE | 2019-05-09 07:26 | NUR ---
NURSE NOTES: Pt asleep in bed, breathing easily on 2 lpm nasal cannula wakes to soft voice, denies SOB and denies pain at this time . Vital signs stable with SR @ 84 on monitor. IV access right fem triple, 2 lumen flushed with 10 ml NS and locked third lumen running 1/2 NS @ 75 ml/hr. Pt has Left nephrostomy tube connected to drainage bag, and Left kidney stoma with urine collection bag in place. Excoriation of lower back improving with use of barrier film. Bed left in low position, side rails up x 2 and call light left near pt's hand.
[2019-05-09 08:00] VITALS: BP 125/71
[2019-05-09 08:42] LABS: HEMATOCRIT 26.1 % (37.0-47.0); HEMOGLOBIN 9.1 G/DL (12.0-16.0); MEAN CORPUSCULAR VOLUME 94 FL (80-99); PLATELET COUNT 378 K/UL (150-450); RED BLOOD COUNT 2.77 M/UL (4.20-5.40); RED CELL DISTRIBUTION WIDTH 14.1 % (11.6-14.8); WHITE BLOOD COUNT 18.8 K/UL (4.8-10.8)
[2019-05-09 08:56] LABS: ALANINE AMINOTRANSFERASE 17 U/L (12-78); ALBUMIN/GLOBULIN RATIO 0.5 (1.0-2.7); ALKALINE PHOSPHATASE 60 U/L (46-116); ANION GAP 5 mmol/L (5-15); ASPARTATE AMINO TRANSFERASE 15 U/L (15-37); BILIRUBIN,TOTAL 0.2 MG/DL (0.2-1.0); BLOOD UREA NITROGEN 48 mg/dL (7-18); CALCIUM 9.1 MG/DL (8.5-10.1); CARBON DIOXIDE 31 MMOL/L (21-32); CHLORIDE 106 MMOL/L (98-107); CREATININE 1.4 MG/DL (0.55-1.30); PHOSPHORUS 3.5 MG/DL (2.5-4.9); POTASSIUM 4.9 MMOL/L (3.5-5.1); SODIUM 142 MMOL/L (136-145)
[2019-05-09] MEDS: Sodium Citrate 30ml ORAL SCH (09:00)
[2019-05-09] MEDS: Heparin 5000 units/ml inj SUBQ SCH ×2 (09:00→21:00)
[2019-05-09] MEDS ORDERED: Solu-MEDROL 40mg Inj IVP SCH ×2 (09:00)
[2019-05-09] MEDS: Lacosamide 50mg tablet ORAL SCH (09:00)
[2019-05-09] MEDS: Meropenem 1 GM in NS 55 ML IVPB SCH ×3 (09:00→22:11)
--- NOTE | 2019-05-09 09:02 | Nephrology Progress Note ---
Assessment/Plan Problem List: (1) Renal failure Assessment: acute on chronic (2) Dehydration (3) Respiratory failure Assessment: self extubated (4) Anemia (5) Hydronephrosis Assessment: nephrostomies Assessment Acute on Chronic Renal Failure + Severe dehydration- IMPROVING h/o ? kidney mass h/o hydronephrosis - has Nephrostomie Anemia Ventilator Dependent Respiratory failure pulmonary infiltrate / Urinary tract infection h/o ESBL UTI from long term Seizure disorder on Clonazepam and Gabapentin Schizophrenia Hypertension, presented with low BP Obesity Plan taper steroids per pulmonary Mag supplement s/p Self extubated DC Hydrate Midodrine prn pulmonary support DC Bicitra Transfuse as needed monitor renal parameters Urology eval avoid nephrotoxics per consultants Moderate right hydronephrosis. This is apparently new at least since the last exam from 07/12/2018. More recent exam had shown placement of a ureteral stent on the right which we're told was removed. Consider noncontrast CT for further evaluation. Left ureteral stent the partially visualized. No hydronephrosis in the left kidney. Subjective ROS Limited/Unobtainable: No Constitutional: Reports: malaise, weakness Objective Objective Last 24 Hour Vital Signs Date Time Temp Pulse Resp B/P (MAP) Pulse Ox O2 Delivery O2 Flow Rate FiO2 05/09/19 04:00 97.4 68 20 116/67 (83) 95 05/09/19 04:00 68 05/09/19 00:00 62 05/09/19 00:00 97.1 62 20 95/44 (61) 93 05/08/19 21:00 Nasal Cannula 2.0 Nasal Cannula 2.0 05/08/19 20:00 97.4 76 20 127/81 (96) 95 05/08/19 20:00 84 05/08/19 16:00 83 05/08/19 16:00 98.0 78 16 121/71 (88) 100 05/08/19 12:00 80 05/08/19 12:00 98.2 81 17 150/99 (116) 93 Intake and Output 05/08/19 05/09/19 19:00 07:00 Intake Total 600 ml Output Total 1400 ml 400 ml Balance -800 ml -400 ml Intake Oral 600 ml Output Urine Total 1400 ml 400 ml # Bowel Movements 3 1 Current Medications Medications (Trade) Dose Ordered Sig/William Route PRN Reason Start Time Stop Time Status Last Admin Dose Admin Acetaminophen (Tylenol) 650 mg Q6H PRN ORAL Mild Pain/Temp > 100.5 05/07/19 14:00 06/06/19 13:59 05/09/19 06:52 Albuterol/ Ipratropium (Albuterol/ Ipratropium) 3 ml Q4H PRN HHN Shortness of Breath 05/08/19 06:00 05/13/19 05:59 Allopurinol (allopurinoL) 300 mg DAILY ORAL 05/08/19 09:00 06/04/19 08:59 05/08/19 08:28 Chlorhexidine Gluconate (Genevieve-Hex 2%) 1 applic DAILY@2000 TOPIC 05/07/19 20:00 06/04/19 19:59 05/08/19 20:45 Dextrose (Dextrose 50%) 25 ml Q30M PRN IV Hypoglycemia 05/07/19 01:15 06/01/19 20:44 Dextrose (Dextrose 50%) 50 ml Q30M PRN IV Hypoglycemia 05/07/19 01:15 06/01/19 20:44 Gabapentin (Neurontin) 200 mg THREE TIMES A DAY ORAL 05/07/19 18:00 06/06/19 17:59 05/08/19 18:04 Heparin Sodium (Porcine) (Heparin 5000 units/ml) 5,000 units EVERY 12 HOURS SUBQ 05/07/19 09:00 06/01/19 20:59 05/08/19 08:38 Insulin Aspart (NovoLOG) AC+HS SUBQ 05/07/19 06:30 06/02/19 00:00 Lacosamide (Vimpat) 100 mg DAILY ORAL 05/07/19 09:00 06/03/19 08:59 05/08/19 08:28 Levetiracetam (Keppra) 250 mg Q12HR ORAL 05/07/19 21:00 06/06/19 20:59 05/08/19 20:46 Lorazepam (Ativan 2mg/ml 1ml) 0.5 mg Q2H PRN IV Agitation 05/07/19 02:00 05/09/19 17:59 05/08/19 22:42 Meropenem 1 gm/ Sodium Chloride 55 ml @ 110 mls/hr EVERY 12 HOURS IVPB 05/07/19 21:00 05/12/19 20:59 05/08/19 20:45 Methylprednisolone Sodium Succinate (Solu-MEDROL) 30 mg Q24HRS IVP 05/10/19 09:00 06/01/19 21:59 Methylprednisolone Sodium Succinate (Solu-MEDROL) 40 mg Q24HRS IVP 05/09/19 09:00 05/09/19 10:30 Olanzapine (ZyPREXA) 5 mg BEDTIME ORAL 05/07/19 21:00 06/04/19 20:59 05/08/19 20:46 Pantoprazole (Protonix) 40 mg EVERY 12 HOURS ORAL 05/07/19 09:00 06/04/19 20:59 05/08/19 20:46 Sodium Chloride 1,000 ml @ 75 mls/hr [id number] IV 05/07/19 02:00 06/04/19 01:59 05/09/19 06:51 Sodium Citrate (Bicitra) 30 ml BID ORAL 05/07/19 09:00 06/03/19 09:44 05/08/19 18:04 Laboratory Tests 05/09/19 08:25: White Blood Count 18.8H, Red Blood Count 2.77L, Hemoglobin 9.1L, Hematocrit 26.1L, Mean Corpuscular Volume 94, Mean Corpuscular Hemoglobin 32.7H, Mean Corpuscular Hemoglobin Concent 34.7, Red Cell Distribution Width 14.1, Platelet Count 378, Mean Platelet Volume 4.8L, Neutrophils (%) (Auto) , Lymphocytes (%) ( Auto) , Monocytes (%) (Auto) , Eosinophils (%) (Auto) , Basophils (%) (Auto) , Neutrophils % (Manual) [Pending], Lymphocytes % (Manual) [Pending], Platelet Estimate [Pending], Platelet Morphology [Pending], Sodium Level 142, Potassium Level 4.9, Chloride Level 106, Carbon Dioxide Level 31, Anion Gap 5, Blood Urea Nitrogen 48H, Creatinine 1.4H, Estimat Glomerular Filtration Rate 38.7, Glucose Level 84, Calcium Level 9.1, Phosphorus Level 3.5, Magnesium Level 1.4L, Total Bilirubin 0.2, Aspartate Amino Transf (AST/SGOT) 15, Alanine Aminotransferase ( ALT/SGPT) 17, Alkaline Phosphatase 60, Total Protein 6.4, Albumin 2.0L, Globulin 4.4, Albumin/Globulin Ratio 0.5L Height (Feet): 5 Height (Inches): 3.00 Weight (Pounds): 209 General Appearance: no apparent distress Respiratory/Chest: decreased breath sounds Abdomen: soft Derrell Hatch MD May 09, 2019 09:02
--- NOTE | 2019-05-09 09:35 | Pulmonolgy Critical Care Note ---
Critical Care - Asmt/Plan Assessment/Plan: Pulmonary Progress Note HPI This patient is a 58 year old woman with past history of Chronic Obstructive Pulmonary Disease, Seizures, Previous CVA/TIA, Hypertension, CAD, Cervical cancer s/p Uropathy - has B/L Nephrostomy tubes, Chronic kidney disease, Peripheral vascular disease sp LLE amputation, Schizophrenia, [facility] from [facility] with shortness of breath, fever, N/V and hypoxemia. On NC O2 Improved metabolic acidosis Hematology following for anemia UTI - ESBL GNR, pos BC for GNR Has femoral line denies SOB, no new complaints Allergies: Grits [place] Past Medical History: see triage record, old chart reviewed, HTN, CAD, asthma, COPD, GERD, CVA/TIA, seizures, psych hx - schizophrenia, renal disease, other - cervical ca s/p obstructive uropathy s/p BL nephrostomy tubes, muscle weakness Past Surgical History: other - L. BKA Physical Exam Vital Signs Noted General Appearance: no apparent distress, awake, non-toxic Head: normocephalic, atraumatic Eyes: bilateral eye normal inspection, bilateral eye PERRL ENT: hearing grossly normal, normal pharynx Neck: full range of motion, supple/symm/no masses Respiratory: chest non-tender, CTAB Cardiovascular: regular rate, rhythm, HS1, HS2 normal, no edema Gastrointestinal: normal bowel sounds, non tender, soft, non-distended, no guarding, no rebound Rectal: deferred Musculoskeletal: back normal, normal range of motion, non-tender, other - L. BKA Neurologic: awake, interactive, no focal signs Impression: Chronic Obstructive Pulmonary Disease Exacerbation - imptoving Possible Pneumonia Chronic kidney disease Hydronephrosis, L nephrostomy Urinary Tract Infection, ESBL Anemia Leukocytosis Seizures Previous CVA/TIA Hypertension CAD Cervical cancer s/p Uropathy - previous R Nephrostomy tube Peripheral vascular disease sp LLE amputation Schizophrenia Plan - ID following - NC O2 - IV Steroids - wean - 30 daily - can be DC on Medrol dose pack - HHN - IVF per Renal - ISS - PPX - Monitor labs - CHOREOGRAPHY DIRECTOR Medications Time: 45 minutes, 23 minutes care co-ordination DW: GUZMAN Levi earlier Laboratory Tests Noted EKG: Rate: normal Rhythm: NSR ST Segments: no acute changes Chest X-Ray: no effusion, no pneumothorax, other possible- RLL opacity CXR #2: Appropriate ET tube placement s/p RSI LE Dupplex: negative URINE CULTURE Final COMMENTS: KNOWN ESBL. Organism 1 ESCHERICHIA COLI - ESBL COLONY COUNT: >100,000 CFU/ML ESCCOL ESB M.I.C. RX --------- --- AMPICILLIN >=32 R CEFAZOLIN >=64 R CEFTAZIDIME R CEFTRIAXONE >=64 R CEFEPIME R CIPROFLOXACIN >=4 R GENTAMICIN <=1 S LEVOFLOXACIN >=8 R IMIPENEM <=0.25 S NITROFURANTOIN <=16 S TIGECYCLINE <=0.5 S TRIMETHOPRIM/SULFA <=20 S AMIKACIN 16 S PIPERACILLIN/TAZOBACTAM 8 S Critical Care - Objective Last 24 Hour Vital Signs Date Time Temp Pulse Resp B/P (MAP) Pulse Ox O2 Delivery O2 Flow Rate FiO2 05/09/19 04:00 97.4 68 20 116/67 (83) 95 05/09/19 04:00 68 05/09/19 00:00 62 05/09/19 00:00 97.1 62 20 95/44 (61) 93 05/08/19 21:00 Nasal Cannula 2.0 Nasal Cannula 2.0 05/08/19 20:00 97.4 76 20 127/81 (96) 95 05/08/19 20:00 84 05/08/19 16:00 83 05/08/19 16:00 98.0 78 16 121/71 (88) 100 05/08/19 12:00 80 05/08/19 12:00 98.2 81 17 150/99 (116) 93 Accucheck: 84 Critical Care - Subjective ROS Limited/Unobtainable: No Condition: stable FI02: 28 Vent Support Breath Rate: 22 Vent Support Mode: BiLevel Vent Tidal Volume: 450 Sputum Amount: None PEEP: 5.0 PIP: 41 Tube Feeding Amount: 0 I&O: Intake and Output 05/08/19 05/09/19 19:00 07:00 Intake Total 600 ml Output Total 1400 ml 400 ml Balance -800 ml -400 ml Intake Oral 600 ml Output Urine Total 1400 ml 400 ml # Bowel Movements 3 1 ET-Tube: 7.5 ET Position: 22 Gabino Smith MD May 09, 2019 09:35
--- NOTE | 2019-05-09 09:52 | NUR ---
CASE MANAGEMENT:REVIEW 05/09/19 SI: PNA. E COLI UTI RESPIRATORY FAILURE......S/P EXTUBATION 97.4 68 20 116/67 95% ON 2L/NC WBC+18.8 H/H-9.1/26.1 BUN+48 CR+1.4 IS: IV SOLUMEDROL Q24HRS IV MEROPENEM Q12 IVF@75/HR HEPARIN SQ Q12 KEPPRA PO Q12 VIMPAT PO QD : NOW ON TELEMETRY DCP: FROM [facility] PLAN: NEPHROSTOMY TUBE PLACEMENT PICC LINE PLACEMENT
--- NOTE | 2019-05-09 10:06 | Infectious Diseases Prog Note ---
Assessment/Plan Assessment/Plan IMPRESSION: E. coli sepsis E. coli ESBL UTI, E. coli pneumonia, Acute respiratory failure COPD, anemia, acute renal failure,improving chronic kidney disease, Right hydronephrosis, Sacral ulcer. RECOMMENDATION: Continue Meropenem Replace R nephrostomy tube Taper steroids Case was D/W RN Subjective ROS Limited/Unobtainable: No Constitutional: Reports: no symptoms Respiratory: Reports: no symptoms Gastrointestinal/Abdominal: Reports: no symptoms Musculoskeletal: Reports: pain, other - in back & lower abdomen Allergies: Coded Allergies: Grits (Unverified Allergy, Unknown, 07/06/17) [place] (Unverified Allergy, Unknown, 07/06/17) Objective Vital Signs Last 24 Hour Vital Signs Date Time Temp Pulse Resp B/P (MAP) Pulse Ox O2 Delivery O2 Flow Rate FiO2 05/09/19 04:00 97.4 68 20 116/67 (83) 95 05/09/19 04:00 68 05/09/19 00:00 62 05/09/19 00:00 97.1 62 20 95/44 (61) 93 05/08/19 21:00 Nasal Cannula 2.0 Nasal Cannula 2.0 05/08/19 20:00 97.4 76 20 127/81 (96) 95 05/08/19 20:00 84 05/08/19 16:00 83 05/08/19 16:00 98.0 78 16 121/71 (88) 100 05/08/19 12:00 80 05/08/19 12:00 98.2 81 17 150/99 (116) 93 Height (Feet): 5 Height (Inches): 3.00 Weight (Pounds): 209 General Appearance: no acute distress HEENT: mucous membranes moist, other - poor dentition Respiratory/Chest: lungs clear Cardiovascular: normal rate Abdomen: soft, non tender Genitourinary: other Skin: rash, other - in back Neurologic/Psychiatric: alert, responsive Laboratory Tests Test 05/09/19 08:25 White Blood Count 18.8 K/UL (4.8-10.8) H Red Blood Count 2.77 M/UL (4.20-5.40) L Hemoglobin 9.1 G/DL (12.0-16.0) L Hematocrit 26.1 % (37.0-47.0) L Mean Corpuscular Volume 94 FL (80-99) Mean Corpuscular Hemoglobin 32.7 PG (27.0-31.0) H Mean Corpuscular Hemoglobin Concent 34.7 G/DL (32.0-36.0) Red Cell Distribution Width 14.1 % (11.6-14.8) Platelet Count 378 K/UL (150-450) Mean Platelet Volume 4.8 FL (6.5-10.1) L Neutrophils (%) (Auto) % (45.0-75.0) Lymphocytes (%) (Auto) % (20.0-45.0) Monocytes (%) (Auto) % (1.0-10.0) Eosinophils (%) (Auto) % (0.0-3.0) Basophils (%) (Auto) % (0.0-2.0) Neutrophils % (Manual) Pending Lymphocytes % (Manual) Pending Platelet Estimate Pending Platelet Morphology Pending Sodium Level 142 MMOL/L (136-145) Potassium Level 4.9 MMOL/L (3.5-5.1) Chloride Level 106 MMOL/L (98-107) Carbon Dioxide Level 31 MMOL/L (21-32) Anion Gap 5 mmol/L (5-15) Blood Urea Nitrogen 48 mg/dL (7-18) H Creatinine 1.4 MG/DL (0.55-1.30) H Estimat Glomerular Filtration Rate 38.7 mL/min (>60) Glucose Level 84 MG/DL (74-106) Calcium Level 9.1 MG/DL (8.5-10.1) Phosphorus Level 3.5 MG/DL (2.5-4.9) Magnesium Level 1.4 MG/DL (1.8-2.4) L Total Bilirubin 0.2 MG/DL (0.2-1.0) Aspartate Amino Transf (AST/SGOT) 15 U/L (15-37) Alanine Aminotransferase (ALT/SGPT) 17 U/L (12-78) Alkaline Phosphatase 60 U/L (46-116) Total Protein 6.4 G/DL (6.4-8.2) Albumin 2.0 G/DL (3.4-5.0) L Globulin 4.4 g/dL Albumin/Globulin Ratio 0.5 (1.0-2.7) L Current Medications Medications (Trade) Dose Ordered Sig/William Route PRN Reason Start Time Stop Time Status Last Admin Dose Admin Acetaminophen (Tylenol) 650 mg Q6H PRN ORAL Mild Pain/Temp > 100.5 05/07/19 14:00 06/06/19 13:59 05/09/19 06:52 Albuterol/ Ipratropium (Albuterol/ Ipratropium) 3 ml Q4H PRN HHN Shortness of Breath 05/08/19 06:00 05/13/19 05:59 Allopurinol (allopurinoL) 300 mg DAILY ORAL 05/08/19 09:00 06/04/19 08:59 05/08/19 08:28 Chlorhexidine Gluconate (Genevieve-Hex 2%) 1 applic DAILY@2000 TOPIC 05/07/19 20:00 06/04/19 19:59 05/08/19 20:45 Dextrose (Dextrose 50%) 25 ml Q30M PRN IV Hypoglycemia 05/07/19 01:15 06/01/19 20:44 Dextrose (Dextrose 50%) 50 ml Q30M PRN IV Hypoglycemia 05/07/19 01:15 06/01/19 20:44 Gabapentin (Neurontin) 200 mg THREE TIMES A DAY ORAL 05/07/19 18:00 06/06/19 17:59 05/08/19 18:04 Heparin Sodium (Porcine) (Heparin 5000 units/ml) 5,000 units EVERY 12 HOURS SUBQ 05/07/19 09:00 06/01/19 20:59 05/08/19 08:38 Insulin Aspart (NovoLOG) AC+HS SUBQ 05/07/19 06:30 06/02/19 00:00 Lacosamide (Vimpat) 100 mg DAILY ORAL 05/07/19 09:00 06/03/19 08:59 05/08/19 08:28 Levetiracetam (Keppra) 250 mg Q12HR ORAL 05/07/19 21:00 06/06/19 20:59 05/08/19 20:46 Lorazepam (Ativan 2mg/ml 1ml) 0.5 mg Q2H PRN IV Agitation 05/07/19 02:00 05/09/19 17:59 05/08/19 22:42 Meropenem 1 gm/ Sodium Chloride 55 ml @ 110 mls/hr EVERY 12 HOURS IVPB 05/07/19 21:00 05/12/19 20:59 05/08/19 20:45 Methylprednisolone Sodium Succinate (Solu-MEDROL) 30 mg Q24HRS IVP 05/10/19 09:00 06/01/19 21:59 Methylprednisolone Sodium Succinate (Solu-MEDROL) 40 mg Q24HRS IVP 05/09/19 09:00 05/09/19 10:30 Olanzapine (ZyPREXA) 5 mg BEDTIME ORAL 05/07/19 21:00 06/04/19 20:59 05/08/19 20:46 Pantoprazole (Protonix) 40 mg EVERY 12 HOURS ORAL 05/07/19 09:00 06/04/19 20:59 05/08/19 20:46 Sodium Chloride 1,000 ml @ 75 mls/hr [id number] IV 05/07/19 02:00 06/04/19 01:59 05/09/19 06:51 Sodium Citrate (Bicitra) 30 ml BID ORAL 05/07/19 09:00 06/03/19 09:44 05/08/19 18:04 Jose Solis MD May 09, 2019 10:06
[2019-05-09 12:00] VITALS: BP 135/71
--- NOTE | 2019-05-09 14:23 | NUR ---
NURSE NOTES: RN asked by GUZMAN Larry to administered 1300 dose of Gabapentin and Magnesium Sulftate
[2019-05-09] MEDS: LORazepam Inj 2mg/ml 1ml IV PRN (15:13)
--- NOTE | 2019-05-09 15:13 | Hematology/Onc Progress Note ---
Assessment/Plan Assessment/Plan Assessment/Plan: # Anemia of chronic disease due to underlying chronic medical issues, multifactorial --> Anemia workup has been ordered, rule out gi bleed and no hemolysis is seen, ferritin is 1551 --> No evidence of hemolysis is noted, peripheral smear has been reviewed. --> Hgb goal >7. Transfuse prn. --> Epogen or iron at this time is not particularly indicated --> Medications have been reviewed --> stool ob negative --> hgb trend 11.7-->10.7-->7.4-->7.1-->8.6-->9 -->9.1 # Leukocytosis is likely related to infection, reactive process, v infection v intubation, in past had esbl uti --> have reviewed peripheral smear and bandemia/neutrophilia noted --> continue antibiotics if they have been started by ID team --> monitor for resolution --> wbc trend: 14.2-->16.1 --> also is on steroids # Left kidney mass -- 5 cm low-attenuation lesion demonstrating slightly higher than normal fluid attenuation coming off of the upper pole left kidney --> likely represents a complex possibly proteinaceous cyst, but necrotic solid mass also possible --> as per uro, appears stable # Dehydration --> ivf have been started --> anti-nausea meds started # S/P BKA (below knee amputation) unilateral --> left leg s/p amputation # Anxiety --> as per psych # Left hydronephrosis --> per uro # Resp failure s/p intubation --> intub 05/02 --> extubated 05/04 # Critically ill requiring icu adm on 05/03 # Dvt ppx heparin sq The timing of this note does not necessarily reflect the time of the patient was seen. Greatly appreciate consultation. Subjective Constitutional: Denies: no symptoms, chills, fever, malaise, weakness, other HEENT: Denies: no symptoms, eye pain, blurred vision, tearing, double vision, ear pain, ear discharge, nose pain, nose congestion, throat pain, throat swelling, mouth pain, mouth swelling, other Cardiovascular: Denies: no symptoms, chest pain, edema, irregular heart rate, lightheadedness, palpitations, syncope, other Respiratory: Denies: no symptoms, cough, shortness of breath, SOB with excertion, SOB at rest, sputum, wheezing, other Gastrointestinal/Abdominal: Denies: no symptoms, abdomen distended, abdominal pain, black stools, tarry stools, blood in stool, constipated, diarrhea, difficulty swallowing, nausea, poor appetite, poor fluid intake, rectal bleeding , vomiting, other Genitourinary: Denies: no symptoms, burning, discharge, frequency, flank pain, hematuria, incontinence, pain, urgency, other Neurologic/Psychiatric: Denies: no symptoms, anxiety, depressed, emotional problems, headache, numbness, paresthesia, pre-existing deficit, seizure, tingling, tremors, weakness, other Endocrine: Denies: no symptoms, excessive sweating, flushing, intolerance to cold, intolerance to heat, increased hunger, increased thirst, increased urine, unexplained weight gain, unexplained weight loss, other Allergies: Coded Allergies: Grits (Unverified Allergy, Unknown, 07/06/17) [place] (Unverified Allergy, Unknown, 07/06/17) Subjective 05/04: no bleeding or chills, no night sweats, cbc noted, on abx, gett prbc today , consent signed 05/05: has refused bipap, otherwise no bleeding or chills, no night sweats, cbc pending 05/06: awake and alert, no acute distress, h/h stable nc, gillian 05/08: awake, no acute events, stool ob negative, nc, labs reviewed 05/09: no events, no bleeding or chills. labs are reviewed, no f Objective Objective Current Medications Medications (Trade) Dose Ordered Sig/William Route PRN Reason Start Time Stop Time Status Last Admin Dose Admin Acetaminophen (Tylenol) 650 mg Q6H PRN ORAL Mild Pain/Temp > 100.5 05/07/19 14:00 06/06/19 13:59 05/09/19 06:52 Albuterol/ Ipratropium (Albuterol/ Ipratropium) 3 ml Q4H PRN HHN Shortness of Breath 05/08/19 06:00 05/13/19 05:59 Allopurinol (allopurinoL) 300 mg DAILY ORAL 05/08/19 09:00 06/04/19 08:59 05/09/19 09:00 Chlorhexidine Gluconate (Genevieve-Hex 2%) 1 applic DAILY@2000 TOPIC 05/07/19 20:00 06/04/19 19:59 05/08/19 20:45 Dextrose (Dextrose 50%) 25 ml Q30M PRN IV Hypoglycemia 05/07/19 01:15 06/01/19 20:44 Dextrose (Dextrose 50%) 50 ml Q30M PRN IV Hypoglycemia 05/07/19 01:15 06/01/19 20:44 Gabapentin (Neurontin) 200 mg THREE TIMES A DAY ORAL 05/07/19 18:00 06/06/19 17:59 05/09/19 14:17 Heparin Sodium (Porcine) (Heparin 5000 units/ml) 5,000 units EVERY 12 HOURS SUBQ 05/07/19 09:00 06/01/19 20:59 05/08/19 08:38 Insulin Aspart (NovoLOG) AC+HS SUBQ 05/07/19 06:30 06/02/19 00:00 Lacosamide (Vimpat) 100 mg DAILY ORAL 05/07/19 09:00 06/03/19 08:59 05/09/19 09:00 Levetiracetam (Keppra) 250 mg Q12HR ORAL 05/07/19 21:00 06/06/19 20:59 05/09/19 09:00 Lorazepam (Ativan 2mg/ml 1ml) 0.5 mg Q2H PRN IV Agitation 05/07/19 02:00 05/09/19 17:59 05/08/19 22:42 Magnesium Sulfate 100 ml @ 100 mls/hr Q1H IVPB 05/09/19 13:15 05/09/19 19:14 05/09/19 14:17 Meropenem 1 gm/ Sodium Chloride 55 ml @ 110 mls/hr Q8HR IVPB 05/09/19 14:00 05/14/19 13:59 Methylprednisolone Sodium Succinate (Solu-MEDROL) 30 mg Q24HRS IVP 05/10/19 09:00 06/01/19 21:59 Olanzapine (ZyPREXA) 5 mg BEDTIME ORAL 05/07/19 21:00 06/04/19 20:59 05/08/19 20:46 Pantoprazole (Protonix) 40 mg EVERY 12 HOURS ORAL 05/07/19 09:00 06/04/19 20:59 05/09/19 09:00 Last 24 Hour Vital Signs Date Time Temp Pulse Resp B/P (MAP) Pulse Ox O2 Delivery O2 Flow Rate FiO2 05/09/19 09:00 Nasal Cannula 2.0 Nasal Cannula 2.0 05/09/19 04:00 97.4 68 20 116/67 (83) 95 05/09/19 04:00 68 05/09/19 00:00 62 05/09/19 00:00 97.1 62 20 95/44 (61) 93 05/08/19 21:00 Nasal Cannula 2.0 Nasal Cannula 2.0 05/08/19 20:00 97.4 76 20 127/81 (96) 95 05/08/19 20:00 84 05/08/19 16:00 83 05/08/19 16:00 98.0 78 16 121/71 (88) 100 05/08/19 12:00 80 05/08/19 12:00 98.2 81 17 150/99 (116) 93 05/08/19 09:00 Nasal Cannula 2.0 Nasal Cannula 2.0 05/08/19 08:00 97.7 86 19 134/82 (99) 100 05/08/19 08:00 89 05/08/19 04:00 71 05/08/19 04:00 98.0 66 20 112/66 (81) 100 05/08/19 00:00 98.0 67 18 126/63 (84) 96 05/08/19 00:00 74 05/07/19 22:54 65 20 97 Nasal Cannula 2.0 28 62 20 95 05/07/19 21:00 Nasal Cannula 2.0 Nasal Cannula 2.0 05/07/19 20:00 83 05/07/19 20:00 97.7 82 20 137/79 (98) 100 05/07/19 19:23 94 18 99 Nasal Cannula 2.0 28 92 20 97 05/07/19 16:25 72 05/07/19 16:00 97.3 88 19 139/95 (110) 98 Intake and Output 05/08/19 05/09/19 19:00 07:00 Intake Total 600 ml Output Total 1400 ml 400 ml Balance -800 ml -400 ml Intake Oral 600 ml Output Urine Total 1400 ml 400 ml # Bowel Movements 3 1 Labs Test 05/07/19 06:00 05/08/19 06:35 05/09/19 08:25 05/09/19 10:15 White Blood Count 13.0 K/UL (4.8-10.8) 16.1 K/UL (4.8-10.8) 18.8 K/UL (4.8-10.8) Red Blood Count 2.74 M/UL (4.20-5.40) 2.74 M/UL (4.20-5.40) 2.77 M/UL (4.20-5.40) Hemoglobin 9.0 G/DL (12.0-16.0) 9.0 G/DL (12.0-16.0) 9.1 G/DL (12.0-16.0) Hematocrit 26.1 % (37.0-47.0) 25.9 % (37.0-47.0) 26.1 % (37.0-47.0) Mean Corpuscular Volume 95 FL (80-99) 95 FL (80-99) 94 FL (80-99) Mean Corpuscular Hemoglobin 32.7 PG (27.0-31.0) 32.7 PG (27.0-31.0) 32.7 PG (27.0-31.0) Mean Corpuscular Hemoglobin Concent 34.4 G/DL (32.0-36.0) 34.6 G/DL (32.0-36.0) 34.7 G/DL (32.0-36.0) Red Cell Distribution Width 13.6 % (11.6-14.8) 13.9 % (11.6-14.8) 14.1 % (11.6-14.8) Platelet Count 360 K/UL (150-450) 376 K/UL (150-450) 378 K/UL (150-450) Mean Platelet Volume 5.0 FL (6.5-10.1) 4.9 FL (6.5-10.1) 4.8 FL (6.5-10.1) Neutrophils (%) (Auto) 73.1 % (45.0-75.0) 76.0 % (45.0-75.0) % (45.0-75.0) Lymphocytes (%) (Auto) 15.7 % (20.0-45.0) 14.3 % (20.0-45.0) % (20.0-45.0) Monocytes (%) (Auto) 10.1 % (1.0-10.0) 8.5 % (1.0-10.0) % (1.0-10.0) Eosinophils (%) (Auto) 0.1 % (0.0-3.0) 0.1 % (0.0-3.0) % (0.0-3.0) Basophils (%) (Auto) 1.0 % (0.0-2.0) 1.1 % (0.0-2.0) % (0.0-2.0) Sodium Level 137 MMOL/L (136-145) 140 MMOL/L (136-145) 142 MMOL/L (136-145) Potassium Level 4.1 MMOL/L (3.5-5.1) 4.9 MMOL/L (3.5-5.1) 4.9 MMOL/L (3.5-5.1) Chloride Level 102 MMOL/L (98-107) 105 MMOL/L (98-107) 106 MMOL/L (98-107) Carbon Dioxide Level 23 MMOL/L (21-32) 27 MMOL/L (21-32) 31 MMOL/L (21-32) Anion Gap 12 mmol/L (5-15) 8 mmol/L (5-15) 5 mmol/L (5-15) Blood Urea Nitrogen 74 mg/dL (7-18) 61 mg/dL (7-18) 48 mg/dL (7-18) Creatinine 2.1 MG/DL (0.55-1.30) 1.6 MG/DL (0.55-1.30) 1.4 MG/DL (0.55-1.30) Estimat Glomerular Filtration Rate 24.3 mL/min (>60) 33.2 mL/min (>60) 38.7 mL/min (>60) Glucose Level 115 MG/DL (74-106) 90 MG/DL (74-106) 84 MG/DL (74-106) Calcium Level 9.2 MG/DL (8.5-10.1) 9.1 MG/DL (8.5-10.1) 9.1 MG/DL (8.5-10.1) Phosphorus Level 4.7 MG/DL (2.5-4.9) 3.5 MG/DL (2.5-4.9) Magnesium Level 1.6 MG/DL (1.8-2.4) 1.4 MG/DL (1.8-2.4) Total Bilirubin 0.2 MG/DL (0.2-1.0) 0.2 MG/DL (0.2-1.0) Aspartate Amino Transf (AST/SGOT) 21 U/L (15-37) 15 U/L (15-37) Alanine Aminotransferase (ALT/SGPT) 26 U/L (12-78) 17 U/L (12-78) Alkaline Phosphatase 63 U/L (46-116) 60 U/L (46-116) C-Reactive Protein, Quantitative 3.2 mg/dL (0.00-0.90) Pro-B-Type Natriuretic Peptide 1524 pg/mL (0-125) Total Protein 6.7 G/DL (6.4-8.2) 6.4 G/DL (6.4-8.2) Albumin 2.0 G/DL (3.4-5.0) 2.0 G/DL (3.4-5.0) Globulin 4.7 g/dL 4.4 g/dL Albumin/Globulin Ratio 0.4 (1.0-2.7) 0.5 (1.0-2.7) Differential Total Cells Counted 100 Neutrophils % (Manual) 61 % (45-75) Lymphocytes % (Manual) 24 % (20-45) Monocytes % (Manual) 12 % (1-10) Eosinophils % (Manual) 3 % (0-3) Basophils % (Manual) 0 % (0-2) Band Neutrophils 0 % (0-8) Platelet Estimate Adequate Platelet Morphology Normal Anisocytosis 1+ Prothrombin Time 10.6 SEC (9.30-11.50) Prothromb Time International Ratio 1.0 (0.9-1.1) Activated Partial Thromboplast Time 26 SEC (23-33) Height (Feet): 5 Height (Inches): 3.00 Weight (Pounds): 209 Objective PE Vital Signs Gen: unresponsive Pulm:++self-extubated CV: RRR, no mgr Abd: soft, ntmylene Ext: no cce, s/p bka lle Labs: noted Colby Canada MD May 09, 2019 15:13
--- NOTE | 2019-05-09 15:13 | NUR ---
RD ASSESSMENT & RECOMMENDATIONS SEE CARE ACTIVITY FOR COMPLETE ASSESSMENT DAILY ESTIMATED NEEDS: Needs based on Pulmonary, wound, renal; 60kg abw 25-30 kcals/kg 6311-6166 total kcals 1-1.5 g protein/kg 60-90 g total protein 25-30 mL/kg 5643-3881 total fluid mLs NUTRITION DIAGNOSIS: * Swallowing difficulty r/t resipiratory failure as evidenced by pt orally intubated, now extubated on mech soft ground texture diet w/ NTL. * Altered nutrition related lab values R/T CKD, DM as evidenced by elev creat (5.0 -> 1.4), elev phos (6.1-> wnl), elev POC glu (200's-> now improved). CURRENT DIET:CCHO MED mech soft ground NTL PO DIET RECOMMENDATIONS: CCHO MED, LOW NA / texture per STOCKING INSPECTOR ADDITIONAL RECOMMENDATIONS: 1) Per SNF: HT= 5'4" WT on 04/1911=559# -> now w/ added p200 mattress + pump, rec recalibrated bedscale wt 2) Monitor renal fxn and lytes -> renal fxn improving 3) Wound healing: Add MVI x 1, Vit C 250mg QD Don 1pkt BID (mix w/ 4oz water) 4) Monitor BGs closely w/ Solumedrol-> improved BGs .
--- NOTE | 2019-05-09 15:18 | NUR ---
ST NOTES: SWALLOW STATUS: PATIENT ALERT AND ASKING FOR DIET UPGRADE. GOALS MET FOR INTAKE AT 75-100% W/O OVERT ASPIRATION ON MECH SOFT GROUND AND NECTAR THICK LIQUIDS. GOALS MET FOR NEW STAFF (GUZMAN CLEMENTE) EDUCATED/TRAINED IN POSTED PRECAUTIONS. PATIENT IS NPO POST MIDNIGHT (NO CAFFEINE NO CHOCOLATE) FOR PROCEDURE TOMORROW. PLAN: CONTINUE WITH PLAN OF CARE IN MBSS REPORT.
[2019-05-09 16:00] VITALS: BP 128/56
--- NOTE | 2019-05-09 16:18 | Surgery Progress Note ---
Surgery Progress Note Subjective Procedure Performed right femoral central venous catheter insertion Symptoms: improved Additional Comments doing well but still with worsening leukocytosis renal function improving Objective Last 24 Hour Vital Signs Date Time Temp Pulse Resp B/P (MAP) Pulse Ox O2 Delivery O2 Flow Rate FiO2 05/09/19 12:00 64 05/09/19 09:00 Nasal Cannula 2.0 Nasal Cannula 2.0 05/09/19 08:00 86 05/09/19 04:00 97.4 68 20 116/67 (83) 95 05/09/19 04:00 68 05/09/19 00:00 62 05/09/19 00:00 97.1 62 20 95/44 (61) 93 05/08/19 21:00 Nasal Cannula 2.0 Nasal Cannula 2.0 05/08/19 20:00 97.4 76 20 127/81 (96) 95 05/08/19 20:00 84 I&O Intake and Output 05/08/19 05/09/19 19:00 07:00 Intake Total 600 ml Output Total 1400 ml 400 ml Balance -800 ml -400 ml Intake Oral 600 ml Output Urine Total 1400 ml 400 ml # Bowel Movements 3 1 Dressing: saturated Wound: other Drains: other Cardiovascular: RSR Respiratory: decreased breath sounds Abdomen: soft, present bowel sounds Extremities: no cyanosis, other Laboratory Tests Test 05/09/19 08:25 05/09/19 10:15 White Blood Count 18.8 K/UL (4.8-10.8) H Red Blood Count 2.77 M/UL (4.20-5.40) L Hemoglobin 9.1 G/DL (12.0-16.0) L Hematocrit 26.1 % (37.0-47.0) L Mean Corpuscular Volume 94 FL (80-99) Mean Corpuscular Hemoglobin 32.7 PG (27.0-31.0) H Mean Corpuscular Hemoglobin Concent 34.7 G/DL (32.0-36.0) Red Cell Distribution Width 14.1 % (11.6-14.8) Platelet Count 378 K/UL (150-450) Mean Platelet Volume 4.8 FL (6.5-10.1) L Neutrophils (%) (Auto) % (45.0-75.0) Lymphocytes (%) (Auto) % (20.0-45.0) Monocytes (%) (Auto) % (1.0-10.0) Eosinophils (%) (Auto) % (0.0-3.0) Basophils (%) (Auto) % (0.0-2.0) Differential Total Cells Counted 100 Neutrophils % (Manual) 61 % (45-75) Lymphocytes % (Manual) 24 % (20-45) Monocytes % (Manual) 12 % (1-10) H Eosinophils % (Manual) 3 % (0-3) Basophils % (Manual) 0 % (0-2) Band Neutrophils 0 % (0-8) Platelet Estimate Adequate Platelet Morphology Normal Anisocytosis 1+ Sodium Level 142 MMOL/L (136-145) Potassium Level 4.9 MMOL/L (3.5-5.1) Chloride Level 106 MMOL/L (98-107) Carbon Dioxide Level 31 MMOL/L (21-32) Anion Gap 5 mmol/L (5-15) Blood Urea Nitrogen 48 mg/dL (7-18) H Creatinine 1.4 MG/DL (0.55-1.30) H Estimat Glomerular Filtration Rate 38.7 mL/min (>60) Glucose Level 84 MG/DL (74-106) Calcium Level 9.1 MG/DL (8.5-10.1) Phosphorus Level 3.5 MG/DL (2.5-4.9) Magnesium Level 1.4 MG/DL (1.8-2.4) L Total Bilirubin 0.2 MG/DL (0.2-1.0) Aspartate Amino Transf (AST/SGOT) 15 U/L (15-37) Alanine Aminotransferase (ALT/SGPT) 17 U/L (12-78) Alkaline Phosphatase 60 U/L (46-116) Total Protein 6.4 G/DL (6.4-8.2) Albumin 2.0 G/DL (3.4-5.0) L Globulin 4.4 g/dL Albumin/Globulin Ratio 0.5 (1.0-2.7) L Prothrombin Time 10.6 SEC (9.30-11.50) Prothromb Time International Ratio 1.0 (0.9-1.1) Activated Partial Thromboplast Time 26 SEC (23-33) Plan Problems: (1) Stage 4 skin ulcer of sacral region Assessment & Plan: Pt presented on admission with Unstageable pressure injury sacrum . Base of wound has 90% soft tse slough with surrounding erythematous borders (L)2.7cm x (W)2cm. Inferior to sacral pressure injury Moisture Intertrigo noted to cleft of buttocks-perianal area. Erythema with moisture denudement noted(L)5cm. Additionally, two areas noted to R and L clefts of buttocks. Both purple areas without erythema or induration. Diffused red rash noted to thoracic -lumbar area. open stoma from previously extracted nephrostomy draining large amt of urine. Skin is erythematous peristomal. Skin Barrier Wipe applied peristomal. Eakins ring applied peristomal and Urostomy pouch placed over stoma and connected to drainage bag. L BKA stump without evidene of skin breakdown. R heel is soft but blanchable. No other skin concerns noted. Tx.plan: Cleanse Sacral wound with Saline. Apply TheraHoney. Apply Moisture Barrier Paste periwound. Cover with Optifoam drsg . Change Daily and prn. Apply Moisture Barrier paste to thoracic- lumbar area daily and prn. Apply Moisture Barrier paste to cleft of buttocks with each incontinence care. Apply Cavilon Skin Barrier to R heel. Cover with Optifoam drsg. Change every 7 days and prn. Reposition at least every 2hours or as tolerated. Off-load R heel with pillow. APM/BHAVIN Mattress overlay. (2) Leukocytosis Assessment & Plan: Patient's presents with subjective fevers, leukocytosis, anemia, abnormal labs. Since intubated in the ICU prior now self extubated doing well. Labs improving. Afebrile, hemodynamic stable, lactate normal Labs improving responding well to IV hydration On antibiotics as per ID no acute surgical intervention recommended Trend labs Will follow with recommendations (3) Cellulitis (4) S/P BKA (below knee amputation) unilateral Assessment & Plan: Left lower extremity BKA flap okay with mild granulation tissue at the lateral edge healing well. Historic and prior prosthetic believes it was shot off. Offload pressure with pillows Foam dressing to wound bed Star Molina May 09, 2019 16:18
--- NOTE | 2019-05-09 18:31 | General Progress Note ---
Assessment/Plan Problem List: (1) Respiratory distress ICD Codes: R06.03 - Acute respiratory distress SNOMED: 828515914 (2) Leukocytosis ICD Codes: D72.829 - Elevated white blood cell count, unspecified SNOMED: 867762632, 278736760 (3) Renal failure ICD Codes: N19 - Unspecified kidney failure SNOMED: 25454442 (4) Respiratory failure ICD Codes: J96.90 - Respiratory failure, unspecified, unspecified whether with hypoxia or hypercapnia SNOMED: 963317576 (5) Pneumonia ICD Codes: J18.9 - Pneumonia, unspecified organism SNOMED: 085080616 (6) Schizophrenia ICD Codes: F20.9 - Schizophrenia, unspecified SNOMED: 04504567 (7) Seizure disorder ICD Codes: G40.909 - Epilepsy, unspecified, not intractable, without status epilepticus SNOMED: 369817246 (8) Hypoalbuminemia ICD Codes: E88.09 - Other disorders of plasma-protein metabolism, not elsewhere classified SNOMED: 941631922 Status: progressing, unchanged Assessment/Plan: afebrile would need further reduction of wbc before dc pna is improving cri anemia of chronic disease persistent leukocytosis is arf /azotemia taper steroids nephrostomy tube Subjective ROS Limited/Unobtainable: Yes Allergies: Coded Allergies: Grits (Unverified Allergy, Unknown, 07/06/17) [place] (Unverified Allergy, Unknown, 07/06/17) Objective Last 24 Hour Vital Signs Date Time Temp Pulse Resp B/P (MAP) Pulse Ox O2 Delivery O2 Flow Rate FiO2 05/09/19 12:00 64 05/09/19 09:00 Nasal Cannula 2.0 Nasal Cannula 2.0 05/09/19 08:00 86 05/09/19 04:00 97.4 68 20 116/67 (83) 95 05/09/19 04:00 68 05/09/19 00:00 62 05/09/19 00:00 97.1 62 20 95/44 (61) 93 05/08/19 21:00 Nasal Cannula 2.0 Nasal Cannula 2.0 05/08/19 20:00 97.4 76 20 127/81 (96) 95 05/08/19 20:00 84 Intake and Output 05/08/19 05/09/19 19:00 07:00 Intake Total 600 ml Output Total 1400 ml 400 ml Balance -800 ml -400 ml Intake Oral 600 ml Output Urine Total 1400 ml 400 ml # Bowel Movements 3 1 Laboratory Tests 05/09/19 08:25: White Blood Count 18.8H, Red Blood Count 2.77L, Hemoglobin 9.1L, Hematocrit 26.1L, Mean Corpuscular Volume 94, Mean Corpuscular Hemoglobin 32.7H, Mean Corpuscular Hemoglobin Concent 34.7, Red Cell Distribution Width 14.1, Platelet Count 378, Mean Platelet Volume 4.8L, Neutrophils (%) (Auto) , Lymphocytes (%) ( Auto) , Monocytes (%) (Auto) , Eosinophils (%) (Auto) , Basophils (%) (Auto) , Differential Total Cells Counted 100, Neutrophils % (Manual) 61, Lymphocytes % ( Manual) 24, Monocytes % (Manual) 12H, Eosinophils % (Manual) 3, Basophils % ( Manual) 0, Band Neutrophils 0, Platelet Estimate Adequate, Platelet Morphology Normal, Anisocytosis 1+, Sodium Level 142, Potassium Level 4.9, Chloride Level 106, Carbon Dioxide Level 31, Anion Gap 5, Blood Urea Nitrogen 48H, Creatinine 1.4H, Estimat Glomerular Filtration Rate 38.7, Glucose Level 84, Calcium Level 9.1, Phosphorus Level 3.5, Magnesium Level 1.4L, Total Bilirubin 0.2, Aspartate Amino Transf (AST/SGOT) 15, Alanine Aminotransferase (ALT/SGPT) 17, Alkaline Phosphatase 60, Total Protein 6.4, Albumin 2.0L, Globulin 4.4, Albumin/Globulin Ratio 0.5L 05/09/19 10:15: Prothrombin Time 10.6, Prothromb Time International Ratio 1.0, Activated Partial Thromboplast Time 26 Height (Feet): 5 Height (Inches): 3.00 Weight (Pounds): 209 Cardiovascular: normal rate Respiratory/Chest: lungs clear Isela Rubio MD May 09, 2019 18:31
[2019-05-09 20:00] VITALS: BP 95/67
[2019-05-09] MEDS: Dyna-Hex 2% Top Sol 2oz TOPIC SCH (22:23)
--- NOTE | 2019-05-09 22:29 | General Progress Note ---
Assessment/Plan Status: progressing, unchanged Assessment/Plan: Assessment - Resp failure - resolved - anemia - PVD Recommendations - push po - Follow labs - abx Subjective Allergies: Coded Allergies: Grits (Unverified Allergy, Unknown, 07/06/17) [place] (Unverified Allergy, Unknown, 07/06/17) Subjective Feels OK no abdominal symptoms Objective Last 24 Hour Vital Signs Date Time Temp Pulse Resp B/P (MAP) Pulse Ox O2 Delivery O2 Flow Rate FiO2 05/09/19 16:00 71 05/09/19 16:00 98.2 78 17 128/56 (80) 93 05/09/19 12:00 98.0 80 16 135/71 (92) 100 05/09/19 12:00 64 05/09/19 09:00 Nasal Cannula 2.0 Nasal Cannula 2.0 05/09/19 08:00 86 05/09/19 08:00 97.1 69 20 125/71 (89) 93 05/09/19 04:00 97.4 68 20 116/67 (83) 95 05/09/19 04:00 68 05/09/19 00:00 62 05/09/19 00:00 97.1 62 20 95/44 (61) 93 Intake and Output 05/08/19 05/09/19 19:00 07:00 Intake Total 600 ml Output Total 1400 ml 400 ml Balance -800 ml -400 ml Intake Oral 600 ml Output Urine Total 1400 ml 400 ml # Bowel Movements 3 1 Laboratory Tests 05/09/19 08:25: White Blood Count 18.8H, Red Blood Count 2.77L, Hemoglobin 9.1L, Hematocrit 26.1L, Mean Corpuscular Volume 94, Mean Corpuscular Hemoglobin 32.7H, Mean Corpuscular Hemoglobin Concent 34.7, Red Cell Distribution Width 14.1, Platelet Count 378, Mean Platelet Volume 4.8L, Neutrophils (%) (Auto) , Lymphocytes (%) ( Auto) , Monocytes (%) (Auto) , Eosinophils (%) (Auto) , Basophils (%) (Auto) , Differential Total Cells Counted 100, Neutrophils % (Manual) 61, Lymphocytes % ( Manual) 24, Monocytes % (Manual) 12H, Eosinophils % (Manual) 3, Basophils % ( Manual) 0, Band Neutrophils 0, Platelet Estimate Adequate, Platelet Morphology Normal, Anisocytosis 1+, Sodium Level 142, Potassium Level 4.9, Chloride Level 106, Carbon Dioxide Level 31, Anion Gap 5, Blood Urea Nitrogen 48H, Creatinine 1.4H, Estimat Glomerular Filtration Rate 38.7, Glucose Level 84, Calcium Level 9.1, Phosphorus Level 3.5, Magnesium Level 1.4L, Total Bilirubin 0.2, Aspartate Amino Transf (AST/SGOT) 15, Alanine Aminotransferase (ALT/SGPT) 17, Alkaline Phosphatase 60, Total Protein 6.4, Albumin 2.0L, Globulin 4.4, Albumin/Globulin Ratio 0.5L 05/09/19 10:15: Prothrombin Time 10.6, Prothromb Time International Ratio 1.0, Activated Partial Thromboplast Time 26 Height (Feet): 5 Height (Inches): 3.00 Weight (Pounds): 209 Objective WDWN NCAT supple CTA RR abd soft no edema, (+) Landon Mckeon MD May 09, 2019 22:29
[2019-05-10] VITALS (11 sets, daily range): BP systolic 102–140; BP diastolic 65–94
--- NOTE | 2019-05-10 05:40 | Hematology/Onc Progress Note ---
Assessment/Plan Assessment/Plan Assessment/Plan: # Anemia of chronic disease due to underlying chronic medical issues, multifactorial --> Anemia workup has been ordered, rule out gi bleed and no hemolysis is seen, ferritin is 1551 --> No evidence of hemolysis is noted, peripheral smear has been reviewed. --> Hgb goal >7. Transfuse prn. --> Epogen or iron at this time is not particularly indicated --> Medications have been reviewed --> stool ob negative --> hgb trend 11.7-->10.7-->7.4-->7.1-->8.6-->9 -->9.1 # Leukocytosis is likely related to infection, reactive process, v infection v intubation, in past had esbl uti --> have reviewed peripheral smear and bandemia/neutrophilia noted --> continue antibiotics if they have been started by ID team MEROP --> monitor for resolution --> wbc trend: 14.2-->16.1 --> also is on steroids # Left kidney mass -- 5 cm low-attenuation lesion demonstrating slightly higher than normal fluid attenuation coming off of the upper pole left kidney --> likely represents a complex possibly proteinaceous cyst, but necrotic solid mass also possible --> as per uro, appears stable # Dehydration --> ivf have been started --> anti-nausea meds started # S/P BKA (below knee amputation) unilateral --> left leg s/p amputation # Anxiety --> as per psych # Left hydronephrosis --> per uro # Resp failure s/p intubation --> intub 05/02 --> extubated 05/04 # Critically ill requiring icu adm on 05/03 # Dvt ppx heparin sq The timing of this note does not necessarily reflect the time of the patient was seen. Greatly appreciate consultation. Subjective Constitutional: Denies: no symptoms, chills, fever, malaise, weakness, other HEENT: Denies: no symptoms, eye pain, blurred vision, tearing, double vision, ear pain, ear discharge, nose pain, nose congestion, throat pain, throat swelling, mouth pain, mouth swelling, other Cardiovascular: Denies: no symptoms, chest pain, edema, irregular heart rate, lightheadedness, palpitations, syncope, other Respiratory: Denies: no symptoms, cough, shortness of breath, SOB with excertion, SOB at rest, sputum, wheezing, other Gastrointestinal/Abdominal: Denies: no symptoms, abdomen distended, abdominal pain, black stools, tarry stools, blood in stool, constipated, diarrhea, difficulty swallowing, nausea, poor appetite, poor fluid intake, rectal bleeding , vomiting, other Genitourinary: Denies: no symptoms, burning, discharge, frequency, flank pain, hematuria, incontinence, pain, urgency, other Endocrine: Denies: no symptoms, excessive sweating, flushing, intolerance to cold, intolerance to heat, increased hunger, increased thirst, increased urine, unexplained weight gain, unexplained weight loss, other Hematologic/Lymphatic: Denies: no symptoms, anemia, easy bleeding, easy bruising, adenopathy, other Allergies: Coded Allergies: Grits (Unverified Allergy, Unknown, 07/06/17) [place] (Unverified Allergy, Unknown, 07/06/17) Subjective 05/04: no bleeding or chills, no night sweats, cbc noted, on abx, gett prbc today , consent signed 05/05: has refused bipap, otherwise no bleeding or chills, no night sweats, cbc pending 05/06: awake and alert, no acute distress, h/h stable nc, gillian 05/08: awake, no acute events, stool ob negative, nc, labs reviewed 05/09: no events, no bleeding or chills. labs are reviewed, no f 05/10: wbc remains higher, is on meropenem, and steriods Objective Objective Current Medications Medications (Trade) Dose Ordered Sig/William Route PRN Reason Start Time Stop Time Status Last Admin Dose Admin Acetaminophen (Tylenol) 650 mg Q6H PRN ORAL Mild Pain/Temp > 100.5 05/07/19 14:00 06/06/19 13:59 05/09/19 06:52 Albuterol/ Ipratropium (Albuterol/ Ipratropium) 3 ml Q4H PRN HHN Shortness of Breath 05/08/19 06:00 05/13/19 05:59 Allopurinol (allopurinoL) 300 mg DAILY ORAL 05/08/19 09:00 06/04/19 08:59 05/09/19 09:00 Chlorhexidine Gluconate (Genevieve-Hex 2%) 1 applic DAILY@2000 TOPIC 05/07/19 20:00 06/04/19 19:59 05/09/19 22:23 Dextrose (Dextrose 50%) 25 ml Q30M PRN IV Hypoglycemia 05/07/19 01:15 06/01/19 20:44 Dextrose (Dextrose 50%) 50 ml Q30M PRN IV Hypoglycemia 05/07/19 01:15 06/01/19 20:44 Gabapentin (Neurontin) 200 mg THREE TIMES A DAY ORAL 05/07/19 18:00 06/06/19 17:59 05/09/19 18:08 Heparin Sodium (Porcine) (Heparin 5000 units/ml) 5,000 units EVERY 12 HOURS SUBQ 05/07/19 09:00 06/01/19 20:59 05/08/19 08:38 Insulin Aspart (NovoLOG) AC+HS SUBQ 05/07/19 06:30 06/02/19 00:00 Lacosamide (Vimpat) 100 mg DAILY ORAL 05/07/19 09:00 06/03/19 08:59 05/09/19 09:00 Levetiracetam (Keppra) 250 mg Q12HR ORAL 05/07/19 21:00 06/06/19 20:59 05/09/19 22:11 Meropenem 1 gm/ Sodium Chloride 55 ml @ 110 mls/hr Q8HR IVPB 05/09/19 14:00 05/14/19 13:59 05/09/19 22:11 Methylprednisolone Sodium Succinate (Solu-MEDROL) 30 mg Q24HRS IVP 05/10/19 09:00 06/01/19 21:59 Olanzapine (ZyPREXA) 5 mg BEDTIME ORAL 05/07/19 21:00 06/04/19 20:59 05/09/19 22:12 Pantoprazole (Protonix) 40 mg EVERY 12 HOURS ORAL 05/07/19 09:00 06/04/19 20:59 05/09/19 22:11 Last 24 Hour Vital Signs Date Time Temp Pulse Resp B/P (MAP) Pulse Ox O2 Delivery O2 Flow Rate FiO2 05/10/19 04:00 97.2 65 16 102/65 (77) 94 05/10/19 04:00 69 05/10/19 00:00 97.7 70 16 103/71 (82) 95 05/10/19 00:00 76 05/09/19 21:00 Nasal Cannula 2.0 Nasal Cannula 2.0 05/09/19 20:00 78 05/09/19 20:00 97.9 93 16 95/67 (76) 95 05/09/19 19:00 84 18 100 Bi-Pap 35 05/09/19 16:00 71 05/09/19 16:00 98.2 78 17 128/56 (80) 93 05/09/19 12:00 98.0 80 16 135/71 (92) 100 05/09/19 12:00 64 05/09/19 09:00 Nasal Cannula 2.0 Nasal Cannula 2.0 05/09/19 08:00 86 05/09/19 08:00 97.1 69 20 125/71 (89) 93 05/09/19 04:00 97.4 68 20 116/67 (83) 95 05/09/19 04:00 68 05/09/19 00:00 62 05/09/19 00:00 97.1 62 20 95/44 (61) 93 05/08/19 21:00 Nasal Cannula 2.0 Nasal Cannula 2.0 05/08/19 20:00 97.4 76 20 127/81 (96) 95 05/08/19 20:00 84 05/08/19 16:00 83 05/08/19 16:00 98.0 78 16 121/71 (88) 100 05/08/19 12:00 80 05/08/19 12:00 98.2 81 17 150/99 (116) 93 05/08/19 09:00 Nasal Cannula 2.0 Nasal Cannula 2.0 05/08/19 08:00 97.7 86 19 134/82 (99) 100 05/08/19 08:00 89 Intake and Output 05/09/19 05/10/19 19:00 07:00 Intake Total 60 ml Balance 60 ml Intake Oral 60 ml Labs Test 05/07/19 06:00 05/08/19 06:35 05/09/19 08:25 05/09/19 10:15 White Blood Count 13.0 K/UL (4.8-10.8) 16.1 K/UL (4.8-10.8) 18.8 K/UL (4.8-10.8) Red Blood Count 2.74 M/UL (4.20-5.40) 2.74 M/UL (4.20-5.40) 2.77 M/UL (4.20-5.40) Hemoglobin 9.0 G/DL (12.0-16.0) 9.0 G/DL (12.0-16.0) 9.1 G/DL (12.0-16.0) Hematocrit 26.1 % (37.0-47.0) 25.9 % (37.0-47.0) 26.1 % (37.0-47.0) Mean Corpuscular Volume 95 FL (80-99) 95 FL (80-99) 94 FL (80-99) Mean Corpuscular Hemoglobin 32.7 PG (27.0-31.0) 32.7 PG (27.0-31.0) 32.7 PG (27.0-31.0) Mean Corpuscular Hemoglobin Concent 34.4 G/DL (32.0-36.0) 34.6 G/DL (32.0-36.0) 34.7 G/DL (32.0-36.0) Red Cell Distribution Width 13.6 % (11.6-14.8) 13.9 % (11.6-14.8) 14.1 % (11.6-14.8) Platelet Count 360 K/UL (150-450) 376 K/UL (150-450) 378 K/UL (150-450) Mean Platelet Volume 5.0 FL (6.5-10.1) 4.9 FL (6.5-10.1) 4.8 FL (6.5-10.1) Neutrophils (%) (Auto) 73.1 % (45.0-75.0) 76.0 % (45.0-75.0) % (45.0-75.0) Lymphocytes (%) (Auto) 15.7 % (20.0-45.0) 14.3 % (20.0-45.0) % (20.0-45.0) Monocytes (%) (Auto) 10.1 % (1.0-10.0) 8.5 % (1.0-10.0) % (1.0-10.0) Eosinophils (%) (Auto) 0.1 % (0.0-3.0) 0.1 % (0.0-3.0) % (0.0-3.0) Basophils (%) (Auto) 1.0 % (0.0-2.0) 1.1 % (0.0-2.0) % (0.0-2.0) Sodium Level 137 MMOL/L (136-145) 140 MMOL/L (136-145) 142 MMOL/L (136-145) Potassium Level 4.1 MMOL/L (3.5-5.1) 4.9 MMOL/L (3.5-5.1) 4.9 MMOL/L (3.5-5.1) Chloride Level 102 MMOL/L (98-107) 105 MMOL/L (98-107) 106 MMOL/L (98-107) Carbon Dioxide Level 23 MMOL/L (21-32) 27 MMOL/L (21-32) 31 MMOL/L (21-32) Anion Gap 12 mmol/L (5-15) 8 mmol/L (5-15) 5 mmol/L (5-15) Blood Urea Nitrogen 74 mg/dL (7-18) 61 mg/dL (7-18) 48 mg/dL (7-18) Creatinine 2.1 MG/DL (0.55-1.30) 1.6 MG/DL (0.55-1.30) 1.4 MG/DL (0.55-1.30) Estimat Glomerular Filtration Rate 24.3 mL/min (>60) 33.2 mL/min (>60) 38.7 mL/min (>60) Glucose Level 115 MG/DL (74-106) 90 MG/DL (74-106) 84 MG/DL (74-106) Calcium Level 9.2 MG/DL (8.5-10.1) 9.1 MG/DL (8.5-10.1) 9.1 MG/DL (8.5-10.1) Phosphorus Level 4.7 MG/DL (2.5-4.9) 3.5 MG/DL (2.5-4.9) Magnesium Level 1.6 MG/DL (1.8-2.4) 1.4 MG/DL (1.8-2.4) Total Bilirubin 0.2 MG/DL (0.2-1.0) 0.2 MG/DL (0.2-1.0) Aspartate Amino Transf (AST/SGOT) 21 U/L (15-37) 15 U/L (15-37) Alanine Aminotransferase (ALT/SGPT) 26 U/L (12-78) 17 U/L (12-78) Alkaline Phosphatase 63 U/L (46-116) 60 U/L (46-116) C-Reactive Protein, Quantitative 3.2 mg/dL (0.00-0.90) Pro-B-Type Natriuretic Peptide 1524 pg/mL (0-125) Total Protein 6.7 G/DL (6.4-8.2) 6.4 G/DL (6.4-8.2) Albumin 2.0 G/DL (3.4-5.0) 2.0 G/DL (3.4-5.0) Globulin 4.7 g/dL 4.4 g/dL Albumin/Globulin Ratio 0.4 (1.0-2.7) 0.5 (1.0-2.7) Differential Total Cells Counted 100 Neutrophils % (Manual) 61 % (45-75) Lymphocytes % (Manual) 24 % (20-45) Monocytes % (Manual) 12 % (1-10) Eosinophils % (Manual) 3 % (0-3) Basophils % (Manual) 0 % (0-2) Band Neutrophils 0 % (0-8) Platelet Estimate Adequate Platelet Morphology Normal Anisocytosis 1+ Prothrombin Time 10.6 SEC (9.30-11.50) Prothromb Time International Ratio 1.0 (0.9-1.1) Activated Partial Thromboplast Time 26 SEC (23-33) Height (Feet): 5 Height (Inches): 3.00 Weight (Pounds): 209 Objective PE Vital Signs Gen: unresponsive Pulm:++self-extubated CV: RRR, no mgr Abd: soft, nt, d Ext: no cce, s/p bka lle Labs: noted Colby Canada MD May 10, 2019 05:40
[2019-05-10] MEDS: NovoLOG Insulin Flexpen SUBQ SCH ×4 (06:30→21:00)
[2019-05-10] MEDS: Meropenem 1 GM in NS 55 ML IVPB SCH ×3 (06:35→23:01)
--- NOTE | 2019-05-10 06:45 | NUR ---
NURSE NOTES:WOUND CARE FOLLOW-UP NOTES:Diffused macular rash thoracic,Lumbar areas and buttocks. Pt denied itching but complained of occasional burning affected areas. Unstageable pressure injury Sacrum. Base of wound has 100% slough with marginal erythema along borders. No odor or exudate noted.(L)3.7cm x (W)2.5cm. Inferior to sacral wound moisture intertrigo noted to cleft of buttocks(L)3.1cm. L BKA stump is clean without evidence of skin breakdown. R heel is firm and easily blanchable. L nephrostomy site clean and dry. Stoma of previous Nephrostomy R flank open and continuously draining urine. Peristomal area washed with Chlorhexidine soap.Cavilon Skin barrier applied. Urostomy pouch placed over stoma until pending placement of new nephrostomy today. Wound care orders are effective and continued as ordered. All wound prevntion protocols continued as care-planned.
[2019-05-10] MEDS ORDERED: Omnipaque-300 100ml vial INJ ONE (07:00)
[2019-05-10] MEDS ORDERED: Lidocaine 1% Plain 30 ml INJ ONE ×2 (07:00)
[2019-05-10] MEDS ORDERED: Heparin1,000 units/500ml Premix(Conc:2 units/ml) ONE (07:00)
--- NOTE | 2019-05-10 07:32 | Pulmonolgy Critical Care Note ---
Critical Care - Asmt/Plan Assessment/Plan: Pulmonary Progress Note HPI This patient is a 58 year old woman with past history of Chronic Obstructive Pulmonary Disease, Seizures, Previous CVA/TIA, Hypertension, CAD, Cervical cancer s/p Uropathy - has B/L Nephrostomy tubes, Chronic kidney disease, Peripheral vascular disease sp LLE amputation, Schizophrenia, admitted from retirement facility with shortness of breath, fever, N/V and hypoxemia. On NC O2 Improved metabolic acidosis Hematology following for anemia UTI - ESBL GNR, pos BC for GNR Increasing WCC - Hematology/ID following, steroids weaned to 20mg Has femoral line denies SOB, no new complaints Allergies: Grits [place] Past Medical History: see triage record, old chart reviewed, HTN, CAD, asthma, COPD, GERD, CVA/TIA, seizures, psych hx - schizophrenia, renal disease, other - cervical ca s/p obstructive uropathy s/p BL nephrostomy tubes, muscle weakness Past Surgical History: other - L. BKA Physical Exam Vital Signs Noted General Appearance: no apparent distress, awake, non-toxic Head: normocephalic, atraumatic Eyes: bilateral eye normal inspection, bilateral eye PERRL ENT: hearing grossly normal, normal pharynx Neck: full range of motion, supple/symm/no masses Respiratory: chest non-tender, CTAB Cardiovascular: regular rate, rhythm, HS1, HS2 normal, no edema Gastrointestinal: normal bowel sounds, non tender, soft, non-distended, no guarding, no rebound Rectal: deferred Musculoskeletal: back normal, normal range of motion, non-tender, other - L. 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 Organism 1 ESCHERICHIA COLI - ESBL COLONY COUNT: >100,000 CFU/ML ESCCOL ESB M.I.C. RX --------- --- AMPICILLIN >=32 R CEFAZOLIN >=64 R CEFTAZIDIME R CEFTRIAXONE >=64 R CEFEPIME R CIPROFLOXACIN >=4 R GENTAMICIN <=1 S LEVOFLOXACIN >=8 R IMIPENEM <=0.25 S NITROFURANTOIN <=16 S TIGECYCLINE <=0.5 S TRIMETHOPRIM/SULFA <=20 S AMIKACIN 16 S PIPERACILLIN/TAZOBACTAM 8 S Critical Care - Objective Last 24 Hour Vital Signs Date Time Temp Pulse Resp B/P (MAP) Pulse Ox O2 Delivery O2 Flow Rate FiO2 05/10/19 04:00 97.2 65 16 102/65 (77) 94 05/10/19 04:00 69 05/10/19 00:00 97.7 70 16 103/71 (82) 95 05/10/19 00:00 76 05/09/19 21:00 Nasal Cannula 2.0 Nasal Cannula 2.0 05/09/19 20:00 78 05/09/19 20:00 97.9 93 16 95/67 (76) 95 05/09/19 19:00 84 18 100 Bi-Pap 35 05/09/19 16:00 71 05/09/19 16:00 98.2 78 17 128/56 (80) 93 05/09/19 12:00 98.0 80 16 135/71 (92) 100 05/09/19 12:00 64 05/09/19 09:00 Nasal Cannula 2.0 Nasal Cannula 2.0 05/09/19 08:00 86 05/09/19 08:00 97.1 69 20 125/71 (89) 93 Accucheck: 76 Critical Care - Subjective ROS Limited/Unobtainable: No Condition: stable FI02: 35 Vent Support Breath Rate: 22 Vent Support Mode: BiLevel Vent Tidal Volume: 450 Sputum Amount: None PEEP: 5.0 PIP: 41 Tube Feeding Amount: 0 I&O: Intake and Output 05/09/19 05/10/19 19:00 07:00 Intake Total 60 ml Output Total 800 ml Balance -740 ml Intake Oral 60 ml Output Urine Total 800 ml ET-Tube: 7.5 ET Position: 22 Gabino Smith MD May 10, 2019 07:32
[2019-05-10 07:49] LABS: HEMOGLOBIN 8.7 G/DL (12.0-16.0); MEAN CORPUSCULAR VOLUME 94 FL (80-99); PLATELET COUNT 385 K/UL (150-450); RED BLOOD COUNT 2.66 M/UL (4.20-5.40); RED CELL DISTRIBUTION WIDTH 13.8 % (11.6-14.8); WHITE BLOOD COUNT 21.5 K/UL (4.8-10.8)
--- NOTE | 2019-05-10 08:00 | NUR ---
NURSE NOTES: Patient stable AOx4 with no complaints and no s/sx of distress. RR even and unlabored on RA. Side rails up x2, call light within reach, bed low and locked. Will continue to monitor.
--- NOTE | 2019-05-10 08:00 | NUR ---
HAND-OFF: Report given to GUZMAN Cavazos. Pt stable.
[2019-05-10] MEDS: Lacosamide 50mg tablet ORAL SCH (08:14)
[2019-05-10] MEDS: Solu-MEDROL 40mg Inj IVP SCH (08:14)
[2019-05-10] MEDS: Heparin 5000 units/ml inj SUBQ SCH ×2 (08:16→21:00)
[2019-05-10 08:19] LABS: ALANINE AMINOTRANSFERASE 15 U/L (12-78); ALBUMIN/GLOBULIN RATIO 0.4 (1.0-2.7); ALKALINE PHOSPHATASE 64 U/L (46-116); ANION GAP 5 mmol/L (5-15); ASPARTATE AMINO TRANSFERASE 13 U/L (15-37); BILIRUBIN,TOTAL 0.2 MG/DL (0.2-1.0); BLOOD UREA NITROGEN 37 mg/dL (7-18); CARBON DIOXIDE 31 MMOL/L (21-32); CHLORIDE 104 MMOL/L (98-107); CREATININE 1.6 MG/DL (0.55-1.30); POTASSIUM 5.3 MMOL/L (3.5-5.1); SODIUM 140 MMOL/L (136-145)
--- NOTE | 2019-05-10 08:35 | NUR ---
RADIOLOGY: PCXR COMPLETED 0800 HRS. NF
[2019-05-10] MEDS ORDERED: Sodium Polystyrene Sulfonate 15gm Powder ORAL SCH ×2 (08:45→13:11)
[2019-05-10] MEDS ORDERED: Solu-MEDROL 40mg Inj IVP SCH (09:00)
[2019-05-10] MEDS ORDERED: Midazolam 2mg/2ml Inj ONE (10:11)
[2019-05-10] MEDS ORDERED: fentaNYL 100 mcg/2 mL IV ONE (10:11)
--- NOTE | 2019-05-10 10:30 | NUR ---
NURSE NOTES: Pt taken down for PICC and nephrostomy tube placement.
--- NOTE | 2019-05-10 10:37 | Pre-Procedure Note/Attestation ---
Pre-Procedure Note/Attestation Complete Prior to Procedure Planned Procedure: right Procedure Narrative: nephrostomy Indications for Procedure Pre-Operative Diagnosis: R hydronephrosis Attestation I attest that I discussed the nature of the procedure; its benefits; risks and complications; and alternatives (and the risks and benefits of such alternatives ), prior to the procedure, with the patient (or the patient's legal automotive leasing sales representative). I attest that, if there was a reasonable possibility of needing a blood transfusion, the patient (or the patient's legal automotive leasing sales representative) was given the [facility] standardized written summary, pursuant to the Alfredo Malika Blood Safety Act ([place] Health and Safety Code # 1645, as amended). I attest that I re-evaluated the patient just prior to the surgery and that there has been no change in the patient's H&P, except as documented below: Kenny Cuello MD May 10, 2019 10:37
--- NOTE | 2019-05-10 11:27 | Pre-Procedure Note/Attestation ---
Pre-Procedure Note/Attestation Complete Prior to Procedure Planned Procedure: not applicable Procedure Narrative: PICC Indications for Procedure Pre-Operative Diagnosis: needs abx rodent exterminator Attestation I attest that I discussed the nature of the procedure; its benefits; risks and complications; and alternatives (and the risks and benefits of such alternatives ), prior to the procedure, with the patient (or the patient's legal risk control field representative). I attest that, if there was a reasonable possibility of needing a blood transfusion, the patient (or the patient's legal risk control field representative) was given the [facility] standardized written summary, pursuant to the Alfredo Malika Blood Safety Act ([place] Health and Safety Code # 1645, as amended). I attest that I re-evaluated the patient just prior to the surgery and that there has been no change in the patient's H&P, except as documented below: Kenny Cuello MD May 10, 2019 11:27
--- NOTE | 2019-05-10 11:27 | Brief Operative Note ---
Immediate Post Operative Note Operative Note Pre-op Diagnosis: R hydronephrosis Procedure: R nephrostomy Post-op Diagnosis: obstructive uropathy Anesthesia: local Specimen: none Complications: none Condition: stable Fluids: none Implant(s) used?: No Kenny Cuello MD May 10, 2019 11:27
--- NOTE | 2019-05-10 12:08 | Brief Operative Note ---
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
--- NOTE | 2019-05-10 13:00 | NUR ---
NURSE NOTES: Pt returned.
--- NOTE | 2019-05-10 13:11 | Diagnostic Imaging Report ---
Indication: Cough Technique: One view of the chest Comparison: 05/05/2019 Findings: No acute infiltrates, effusions, or congestion. Tortuous calcified aorta. Normal heart size. Upper mediastinum unremarkable. Previously demonstrated right basilar opacity is no longer evident. Previously demonstrated jugular central venous catheter is no longer evident Impression: No acute process.
--- NOTE | 2019-05-10 13:58 | Surgery Progress Note ---
Surgery Progress Note Subjective Procedure Performed right femoral central venous catheter insertion Additional Comments worsening leukocytosis comfortable no n/v/f/c Objective Last 24 Hour Vital Signs Date Time Temp Pulse Resp B/P (MAP) Pulse Ox O2 Delivery O2 Flow Rate FiO2 05/10/19 11:15 88 18 140/94 (109) 98 05/10/19 11:10 86 18 138/94 (109) 97 05/10/19 11:05 81 18 134/92 (106) 100 05/10/19 11:00 79 18 135/89 (104) 100 05/10/19 10:55 83 18 130/90 (103) 99 05/10/19 10:50 82 18 134/94 (107) 100 05/10/19 10:25 74 18 3.0 05/10/19 09:00 Nasal Cannula 2.0 Nasal Cannula 2.0 05/10/19 08:00 76 05/10/19 04:00 97.2 65 16 102/65 (77) 94 05/10/19 04:00 69 05/10/19 00:00 97.7 70 16 103/71 (82) 95 05/10/19 00:00 76 05/09/19 21:00 Nasal Cannula 2.0 Nasal Cannula 2.0 05/09/19 20:00 78 05/09/19 20:00 97.9 93 16 95/67 (76) 95 05/09/19 19:00 84 18 100 Bi-Pap 35 05/09/19 16:00 71 05/09/19 16:00 98.2 78 17 128/56 (80) 93 I&O Intake and Output 05/09/19 05/10/19 19:00 07:00 Intake Total 60 ml Output Total 2400 ml Balance -2340 ml Intake Oral 60 ml Output Urine Total 2400 ml Dressing: other Wound: other Drains: other Cardiovascular: RSR Respiratory: decreased breath sounds Abdomen: soft, present bowel sounds Extremities: no cyanosis Laboratory Tests Test 05/10/19 07:36 White Blood Count 21.5 K/UL (4.8-10.8) H Red Blood Count 2.66 M/UL (4.20-5.40) L Hemoglobin 8.7 G/DL (12.0-16.0) L Hematocrit 25.0 % (37.0-47.0) L Mean Corpuscular Volume 94 FL (80-99) Mean Corpuscular Hemoglobin 32.7 PG (27.0-31.0) H Mean Corpuscular Hemoglobin Concent 34.7 G/DL (32.0-36.0) Red Cell Distribution Width 13.8 % (11.6-14.8) Platelet Count 385 K/UL (150-450) Mean Platelet Volume 5.3 FL (6.5-10.1) L Neutrophils (%) (Auto) % (45.0-75.0) Lymphocytes (%) (Auto) % (20.0-45.0) Monocytes (%) (Auto) % (1.0-10.0) Eosinophils (%) (Auto) % (0.0-3.0) Basophils (%) (Auto) % (0.0-2.0) Differential Total Cells Counted 100 Neutrophils % (Manual) 77 % (45-75) H Lymphocytes % (Manual) 14 % (20-45) L Monocytes % (Manual) 6 % (1-10) Eosinophils % (Manual) 3 % (0-3) Basophils % (Manual) 0 % (0-2) Band Neutrophils 0 % (0-8) Platelet Estimate Adequate Platelet Morphology Normal Hypochromasia 2+ Anisocytosis 1+ Erythrocyte Sedimentation Rate 117 MM/HR (0-30) H Sodium Level 140 MMOL/L (136-145) Potassium Level 5.3 MMOL/L (3.5-5.1) H Chloride Level 104 MMOL/L (98-107) Carbon Dioxide Level 31 MMOL/L (21-32) Anion Gap 5 mmol/L (5-15) Blood Urea Nitrogen 37 mg/dL (7-18) H Creatinine 1.6 MG/DL (0.55-1.30) H Estimat Glomerular Filtration Rate 33.2 mL/min (>60) Glucose Level 90 MG/DL (74-106) Calcium Level 9.0 MG/DL (8.5-10.1) Total Bilirubin 0.2 MG/DL (0.2-1.0) Aspartate Amino Transf (AST/SGOT) 13 U/L (15-37) L Alanine Aminotransferase (ALT/SGPT) 15 U/L (12-78) Alkaline Phosphatase 64 U/L (46-116) C-Reactive Protein, Quantitative 7.4 mg/dL (0.00-0.90) H Total Protein 6.5 G/DL (6.4-8.2) Albumin 2.0 G/DL (3.4-5.0) L Globulin 4.5 g/dL Albumin/Globulin Ratio 0.4 (1.0-2.7) L Plan Problems: (1) Stage 4 skin ulcer of sacral region Assessment & Plan: Pt presented on admission with Unstageable pressure injury sacrum . Base of wound has 90% soft tse slough with surrounding erythematous borders (L)2.7cm x (W)2cm. Inferior to sacral pressure injury Moisture Intertrigo noted to cleft of buttocks-perianal area. Erythema with moisture denudement noted(L)5cm. Additionally, two areas noted to R and L clefts of buttocks. Both purple areas without erythema or induration. Diffused red rash noted to thoracic -lumbar area. open stoma from previously extracted nephrostomy draining large amt of urine. Skin is erythematous peristomal. Skin Barrier Wipe applied peristomal. Eakins ring applied peristomal and Urostomy pouch placed over stoma and connected to drainage bag. L BKA stump without evidene of skin breakdown. R heel is soft but blanchable. No other skin concerns noted. Tx.plan: Cleanse Sacral wound with Saline. Apply TheraHoney. Apply Moisture Barrier Paste periwound. Cover with Optifoam drsg . Change Daily and prn. Apply Moisture Barrier paste to thoracic- lumbar area daily and prn. Apply Moisture Barrier paste to cleft of buttocks with each incontinence care. Apply Cavilon Skin Barrier to R heel. Cover with Optifoam drsg. Change every 7 days and prn. Reposition at least every 2hours or as tolerated. Off-load R heel with pillow. APM/BHAVIN Mattress overlay. (2) Leukocytosis Assessment & Plan: Patient's presents with subjective fevers, leukocytosis, anemia, abnormal labs. Since intubated in the ICU prior now self extubated doing well. Labs improving. Afebrile, hemodynamic stable, lactate normal worsening leukocytosis On antibiotics as per ID no acute surgical intervention recommended Trend labs Will follow with recommendations (3) Cellulitis (4) S/P BKA (below knee amputation) unilateral Assessment & Plan: Left lower extremity BKA flap okay with mild granulation tissue at the lateral edge healing well. Historic and prior prosthetic believes it was shot off. Offload pressure with pillows Foam dressing to wound bed Star Molina May 10, 2019 13:58
--- NOTE | 2019-05-10 14:27 | Nephrology Progress Note ---
Assessment/Plan Problem List: (1) Renal failure Assessment: acute on chronic (2) Dehydration (3) Respiratory failure Assessment: self extubated (4) Anemia (5) Hydronephrosis Assessment: nephrostomies Assessment Acute on Chronic Renal Failure + Severe dehydration- IMPROVING h/o ? kidney mass h/o hydronephrosis - has Nephrostomie Anemia Ventilator Dependent Respiratory failure pulmonary infiltrate / Urinary tract infection h/o ESBL UTI from detention Seizure disorder on Clonazepam and Gabapentin Schizophrenia Hypertension, presented with low BP Obesity Plan taper steroids per pulmonary Mag supplement s/p Self extubated DC Hydrate Midodrine prn pulmonary support DC Bicitra Transfuse as needed monitor renal parameters Urology eval avoid nephrotoxics per consultants Moderate right hydronephrosis. This is apparently new at least since the last exam from 07/12/2018. More recent exam had shown placement of a ureteral stent on the right which we're told was removed. Consider noncontrast CT for further evaluation. Left ureteral stent the partially visualized. No hydronephrosis in the left kidney. Subjective ROS Limited/Unobtainable: No Constitutional: Reports: malaise Objective Objective Last 24 Hour Vital Signs Date Time Temp Pulse Resp B/P (MAP) Pulse Ox O2 Delivery O2 Flow Rate FiO2 05/10/19 11:15 88 18 140/94 (109) 98 05/10/19 11:10 86 18 138/94 (109) 97 05/10/19 11:05 81 18 134/92 (106) 100 05/10/19 11:00 79 18 135/89 (104) 100 05/10/19 10:55 83 18 130/90 (103) 99 05/10/19 10:50 82 18 134/94 (107) 100 05/10/19 10:25 74 18 3.0 05/10/19 09:00 Nasal Cannula 2.0 Nasal Cannula 2.0 05/10/19 08:00 76 05/10/19 04:00 97.2 65 16 102/65 (77) 94 05/10/19 04:00 69 05/10/19 00:00 97.7 70 16 103/71 (82) 95 05/10/19 00:00 76 05/09/19 21:00 Nasal Cannula 2.0 Nasal Cannula 2.0 05/09/19 20:00 78 05/09/19 20:00 97.9 93 16 95/67 (76) 95 05/09/19 19:00 84 18 100 Bi-Pap 35 05/09/19 16:00 71 05/09/19 16:00 98.2 78 17 128/56 (80) 93 Intake and Output 05/09/19 05/10/19 19:00 07:00 Intake Total 60 ml Output Total 2400 ml Balance -2340 ml Intake Oral 60 ml Output Urine Total 2400 ml Laboratory Tests 05/10/19 07:36: White Blood Count 21.5H, Red Blood Count 2.66L, Hemoglobin 8.7L, Hematocrit 25.0L, Mean Corpuscular Volume 94, Mean Corpuscular Hemoglobin 32.7H, Mean Corpuscular Hemoglobin Concent 34.7, Red Cell Distribution Width 13.8, Platelet Count 385, Mean Platelet Volume 5.3L, Neutrophils (%) (Auto) , Lymphocytes (%) ( Auto) , Monocytes (%) (Auto) , Eosinophils (%) (Auto) , Basophils (%) (Auto) , Differential Total Cells Counted 100, Neutrophils % (Manual) 77H, Lymphocytes % (Manual) 14L, Monocytes % (Manual) 6, Eosinophils % (Manual) 3, Basophils % ( Manual) 0, Band Neutrophils 0, Platelet Estimate Adequate, Platelet Morphology Normal, Hypochromasia 2+, Anisocytosis 1+, Erythrocyte Sedimentation Rate 117H, Sodium Level 140, Potassium Level 5.3H, Chloride Level 104, Carbon Dioxide Level 31, Anion Gap 5, Blood Urea Nitrogen 37H, Creatinine 1.6H, Estimat Glomerular Filtration Rate 33.2, Glucose Level 90, Calcium Level 9.0, Total Bilirubin 0.2, Aspartate Amino Transf (AST/SGOT) 13L, Alanine Aminotransferase ( ALT/SGPT) 15, Alkaline Phosphatase 64, C-Reactive Protein, Quantitative 7.4H, Total Protein 6.5, Albumin 2.0L, Globulin 4.5, Albumin/Globulin Ratio 0.4L Height (Feet): 5 Height (Inches): 3.00 Weight (Pounds): 209 Cardiovascular: normal rate Respiratory/Chest: decreased breath sounds Abdomen: soft Objective no change Derrell Hatch MD May 10, 2019 14:27
--- NOTE | 2019-05-10 15:08 | Diagnostic Imaging Report ---
. Indications: Needs long-term IV access Technique: Ultrasound confirms patent compressible left basilic vein. Total sterile technique, including sterile probe cover and sterile gel, hat, mask, sterile gown, large sterile drape, and preparation with 2% chlorhexidine utilized. Local anesthesia with 1% lidocaine. Under real-time ultrasound guidance, puncture basilic vein using 21-gauge needle, documented and archived, passage 0.018 guidewire under direct fluoroscopy, which was used to determine appropriate catheter length, exchange for 4 Moroccan peel-away sheath. 4 Moroccan Bard dual-lumen power PICC cut to 46 cm. It was inserted through the peel-away sheath. Peel-away sheath and guidewire removed. Catheter fixed to the skin. Both catheter ports aspirated and flushed. Patient tolerated procedure well, without immediate complication. Digital radiograph documents satisfactory catheter tip position, at the cavoatrial junction. Total fluoroscopy time 16.6 seconds. Total dose area product 0.69195 mGym2 Total number of images: 1 Impression: Successful placement of left arm PICC under sonographic and fluoroscopic guidance, as described above.
--- NOTE | 2019-05-10 15:17 | Diagnostic Imaging Report ---
Indication: Renal failure, evidence of hydronephrosis on recent imaging studies Technique: Informed consent obtained prior to commencement of the procedure. Procedural timeout performed. Preprocedural attestation performed. Total sterile technique, including sterile gloves and hand hygiene, hat, mask, sterile gown, large sterile drape, and preparation with 2% chlorhexidine utilized. Initial attempts were made at accessing the renal collecting system via the pre-existing tract as there was urine leaking out of it, but this was unsuccessful. Local anesthesia with 1% lidocaine. Under real-time ultrasound guidance, a posterior lower pole calyx was accessed using 21-gauge [place] stick needle. Spontaneous return of urine was observed. Contrast was injected, confirming placement within the collecting system. 0.018 guidewire was inserted, followed by insertion 6 Luxembourgish introducer assembly. The dilator and stiffener were removed, and a 0.035 guidewire was inserted, over which was inserted and 8 [place] Cook all-purpose drainage catheter. Contrast injection confirmed satisfactory catheter position within the renal collecting system. The catheter was fixed to the skin and placed to gravity drainage. The patient tolerated the procedure well, without immediate complication. Total fluoroscopy time 477.3 seconds. Total dose area product 3.48 mGym2 Number of images: 3 Comparison: Reference made to abdominal sonogram dated 05/03/2019 Findings: Intraprocedural images confirmed needle access and subsequent catheter placement within the right renal collecting system, which is dilated Impression: Successful placement of right nephrostomy under sonographic and fluoroscopic guidance, as described
--- NOTE | 2019-05-10 18:00 | NUR ---
NURSE NOTES: Sacral dressing changed. Dressing applied x2 to right nephrostomy. Lt hip dressing reinforced.
--- NOTE | 2019-05-10 19:09 | NUR ---
HAND-OFF: Report given to Day HINDS. Patient stable. Plan of care endorsed.
--- NOTE | 2019-05-10 19:30 | Progress Note ---
DATE: 05/10/2019 SUBJECTIVE: The patient is in bed. His sleep, appetite is adequate. More interactive. Less agitated. No behavioral issues noted. Compliant with medication. MENTAL STATUS EXAMINATION: The patient is alert, oriented times self, place, situation, and date. Mood is neutral. Affect is constricted, congruent with mood. Thought process is concrete. Thought content, no suicidal or homicidal ideation. Cognition is intact. Insight and judgment is fair. ASSESSMENT: Stable. PLAN: 1. We will continue current psychotropic medication. 2. Provide the patient with reality orientation and supportive therapy. Azul Pearl M.D. DR: TRISTON JOB#: [id number] CC:
--- NOTE | 2019-05-10 19:50 | NUR ---
NURSE NOTES: Received pt from GUZMAN Cavazos. Pt awake, alert, and talkative. Bed in lowest position. Call light within reach. Will continue to monitor.
--- NOTE | 2019-05-10 20:18 | General Progress Note ---
Assessment/Plan Status: progressing, unchanged Assessment/Plan: Assessment - Resp failure - resolved - anemia - PVD Recommendations - push po - Follow labs - abx Subjective Allergies: Coded Allergies: Grits (Unverified Allergy, Unknown, 07/06/17) Cascade (Unverified Allergy, Unknown, 07/06/17) Subjective Feels OK no abdominal symptoms tolerating PO Objective Last 24 Hour Vital Signs Date Time Temp Pulse Resp B/P (MAP) Pulse Ox O2 Delivery O2 Flow Rate FiO2 05/10/19 16:00 97.9 91 20 105/70 (82) 94 05/10/19 16:00 81 05/10/19 12:00 87 05/10/19 11:15 88 18 140/94 (109) 98 05/10/19 11:10 86 18 138/94 (109) 97 05/10/19 11:05 81 18 134/92 (106) 100 05/10/19 11:00 79 18 135/89 (104) 100 05/10/19 10:55 83 18 130/90 (103) 99 05/10/19 10:50 82 18 134/94 (107) 100 05/10/19 10:25 74 18 3.0 05/10/19 09:00 Nasal Cannula 2.0 Nasal Cannula 2.0 05/10/19 08:00 76 05/10/19 04:00 97.2 65 16 102/65 (77) 94 05/10/19 04:00 69 05/10/19 00:00 97.7 70 16 103/71 (82) 95 05/10/19 00:00 76 05/09/19 21:00 Nasal Cannula 2.0 Nasal Cannula 2.0 Intake and Output 05/09/19 05/10/19 19:00 07:00 Intake Total 60 ml Output Total 2400 ml Balance -2340 ml Intake Oral 60 ml Output Urine Total 2400 ml Laboratory Tests 05/10/19 07:36: White Blood Count 21.5H, Red Blood Count 2.66L, Hemoglobin 8.7L, Hematocrit 25.0L, Mean Corpuscular Volume 94, Mean Corpuscular Hemoglobin 32.7H, Mean Corpuscular Hemoglobin Concent 34.7, Red Cell Distribution Width 13.8, Platelet Count 385, Mean Platelet Volume 5.3L, Neutrophils (%) (Auto) , Lymphocytes (%) ( Auto) , Monocytes (%) (Auto) , Eosinophils (%) (Auto) , Basophils (%) (Auto) , Differential Total Cells Counted 100, Neutrophils % (Manual) 77H, Lymphocytes % (Manual) 14L, Monocytes % (Manual) 6, Eosinophils % (Manual) 3, Basophils % ( Manual) 0, Band Neutrophils 0, Platelet Estimate Adequate, Platelet Morphology Normal, Hypochromasia 2+, Anisocytosis 1+, Erythrocyte Sedimentation Rate 117H, Sodium Level 140, Potassium Level 5.3H, Chloride Level 104, Carbon Dioxide Level 31, Anion Gap 5, Blood Urea Nitrogen 37H, Creatinine 1.6H, Estimat Glomerular Filtration Rate 33.2, Glucose Level 90, Calcium Level 9.0, Total Bilirubin 0.2, Aspartate Amino Transf (AST/SGOT) 13L, Alanine Aminotransferase ( ALT/SGPT) 15, Alkaline Phosphatase 64, C-Reactive Protein, Quantitative 7.4H, Total Protein 6.5, Albumin 2.0L, Globulin 4.5, Albumin/Globulin Ratio 0.4L Height (Feet): 5 Height (Inches): 3.00 Weight (Pounds): 209 Objective WDWN NCAT supple CTA RR abd soft no edema, (+) Landon Mckeon MD May 10, 2019 20:18
--- NOTE | 2019-05-10 22:04 | General Progress Note ---
Assessment/Plan Problem List: (1) Respiratory distress ICD Codes: R06.03 - Acute respiratory distress SNOMED: 065439651 (2) Leukocytosis ICD Codes: D72.829 - Elevated white blood cell count, unspecified SNOMED: 001022340, 954130157 (3) Renal failure ICD Codes: N19 - Unspecified kidney failure SNOMED: 26186339 (4) Respiratory failure ICD Codes: J96.90 - Respiratory failure, unspecified, unspecified whether with hypoxia or hypercapnia SNOMED: 724776032 (5) Pneumonia ICD Codes: J18.9 - Pneumonia, unspecified organism SNOMED: 178878248 (6) Schizophrenia ICD Codes: F20.9 - Schizophrenia, unspecified SNOMED: 11145557 (7) Seizure disorder ICD Codes: G40.909 - Epilepsy, unspecified, not intractable, without status epilepticus SNOMED: 299964990 (8) Hypoalbuminemia ICD Codes: E88.09 - Other disorders of plasma-protein metabolism, not elsewhere classified SNOMED: 462764288 Status: progressing, unchanged Assessment/Plan: would need further reduction of wbc before dc pna is improving cri anemia of chronic disease persistent leukocytosis is getting worse arf /azotemia copd resp insuff nephrostomy tube Subjective ROS Limited/Unobtainable: Yes Allergies: Coded Allergies: Grits (Unverified Allergy, Unknown, 07/06/17) [place] (Unverified Allergy, Unknown, 07/06/17) Objective Last 24 Hour Vital Signs Date Time Temp Pulse Resp B/P (MAP) Pulse Ox O2 Delivery O2 Flow Rate FiO2 05/10/19 16:00 97.9 91 20 105/70 (82) 94 05/10/19 16:00 81 05/10/19 12:00 87 05/10/19 11:15 88 18 140/94 (109) 98 05/10/19 11:10 86 18 138/94 (109) 97 05/10/19 11:05 81 18 134/92 (106) 100 05/10/19 11:00 79 18 135/89 (104) 100 05/10/19 10:55 83 18 130/90 (103) 99 05/10/19 10:50 82 18 134/94 (107) 100 05/10/19 10:25 74 18 3.0 05/10/19 09:00 Nasal Cannula 2.0 Nasal Cannula 2.0 05/10/19 08:00 76 05/10/19 04:00 97.2 65 16 102/65 (77) 94 05/10/19 04:00 69 05/10/19 00:00 97.7 70 16 103/71 (82) 95 05/10/19 00:00 76 Intake and Output 05/09/19 05/10/19 19:00 07:00 Intake Total 60 ml Output Total 2400 ml Balance -2340 ml Intake Oral 60 ml Output Urine Total 2400 ml Laboratory Tests 05/10/19 07:36: White Blood Count 21.5H, Red Blood Count 2.66L, Hemoglobin 8.7L, Hematocrit 25.0L, Mean Corpuscular Volume 94, Mean Corpuscular Hemoglobin 32.7H, Mean Corpuscular Hemoglobin Concent 34.7, Red Cell Distribution Width 13.8, Platelet Count 385, Mean Platelet Volume 5.3L, Neutrophils (%) (Auto) , Lymphocytes (%) ( Auto) , Monocytes (%) (Auto) , Eosinophils (%) (Auto) , Basophils (%) (Auto) , Differential Total Cells Counted 100, Neutrophils % (Manual) 77H, Lymphocytes % (Manual) 14L, Monocytes % (Manual) 6, Eosinophils % (Manual) 3, Basophils % ( Manual) 0, Band Neutrophils 0, Platelet Estimate Adequate, Platelet Morphology Normal, Hypochromasia 2+, Anisocytosis 1+, Erythrocyte Sedimentation Rate 117H, Sodium Level 140, Potassium Level 5.3H, Chloride Level 104, Carbon Dioxide Level 31, Anion Gap 5, Blood Urea Nitrogen 37H, Creatinine 1.6H, Estimat Glomerular Filtration Rate 33.2, Glucose Level 90, Calcium Level 9.0, Total Bilirubin 0.2, Aspartate Amino Transf (AST/SGOT) 13L, Alanine Aminotransferase ( ALT/SGPT) 15, Alkaline Phosphatase 64, C-Reactive Protein, Quantitative 7.4H, Total Protein 6.5, Albumin 2.0L, Globulin 4.5, Albumin/Globulin Ratio 0.4L Height (Feet): 5 Height (Inches): 3.00 Weight (Pounds): 209 General Appearance: alert Cardiovascular: normal rate Respiratory/Chest: lungs clear Abdomen: soft Isela Rubio MD May 10, 2019 22:04
[2019-05-10] MEDS: Dyna-Hex 2% Top Sol 2oz TOPIC SCH (22:26)
--- NOTE | 2019-05-10 23:47 | Cardiology Progress Note ---
Assessment/Plan Assessment/Plan 1. Hypotension, most likely septic shock, resolved, 2D echocardiography with normal LV systolic and diastolic function with LVEF of approximately 65%. 2. History of peripheral vascular disease, status post left BKA. 3. History of CVA/TIA. 4. Acute respiratory failure, resolved. Chest x-ray shows no acute cardiopulmonary disease. 5. Obstructive uropathy, status post nephrostomy tube placement. 6. Acute kidney injury on CKD, creat down to 1.6. 7. Seizure disorder. 8. Mixed hyperlipidemia with metabolic syndrome. 9. E. Coli ESBL UTI. Subjective Subjective Sinus rhythm at rate of 91. Objective Last 24 Hour Vital Signs Date Time Temp Pulse Resp B/P (MAP) Pulse Ox O2 Delivery O2 Flow Rate FiO2 05/10/19 16:00 97.9 91 20 105/70 (82) 94 05/10/19 16:00 81 05/10/19 12:00 87 05/10/19 11:15 88 18 140/94 (109) 98 05/10/19 11:10 86 18 138/94 (109) 97 05/10/19 11:05 81 18 134/92 (106) 100 05/10/19 11:00 79 18 135/89 (104) 100 05/10/19 10:55 83 18 130/90 (103) 99 05/10/19 10:50 82 18 134/94 (107) 100 05/10/19 10:25 74 18 3.0 05/10/19 09:00 Nasal Cannula 2.0 Nasal Cannula 2.0 05/10/19 08:00 76 05/10/19 04:00 97.2 65 16 102/65 (77) 94 05/10/19 04:00 69 05/10/19 00:00 97.7 70 16 103/71 (82) 95 05/10/19 00:00 76 Intake and Output 05/09/19 05/10/19 19:00 07:00 Intake Total 60 ml Output Total 2400 ml Balance -2340 ml Intake Oral 60 ml Output Urine Total 2400 ml 2D Echo: LVEF 60%, RVSP 31 mmHg, Normal LV Diastolic fxn. Laboratory Tests Test 05/10/19 07:36 White Blood Count 21.5 K/UL (4.8-10.8) H Red Blood Count 2.66 M/UL (4.20-5.40) L Hemoglobin 8.7 G/DL (12.0-16.0) L Hematocrit 25.0 % (37.0-47.0) L Mean Corpuscular Volume 94 FL (80-99) Mean Corpuscular Hemoglobin 32.7 PG (27.0-31.0) H Mean Corpuscular Hemoglobin Concent 34.7 G/DL (32.0-36.0) Red Cell Distribution Width 13.8 % (11.6-14.8) Platelet Count 385 K/UL (150-450) Mean Platelet Volume 5.3 FL (6.5-10.1) L Neutrophils (%) (Auto) % (45.0-75.0) Lymphocytes (%) (Auto) % (20.0-45.0) Monocytes (%) (Auto) % (1.0-10.0) Eosinophils (%) (Auto) % (0.0-3.0) Basophils (%) (Auto) % (0.0-2.0) Differential Total Cells Counted 100 Neutrophils % (Manual) 77 % (45-75) H Lymphocytes % (Manual) 14 % (20-45) L Monocytes % (Manual) 6 % (1-10) Eosinophils % (Manual) 3 % (0-3) Basophils % (Manual) 0 % (0-2) Band Neutrophils 0 % (0-8) Platelet Estimate Adequate Platelet Morphology Normal Hypochromasia 2+ Anisocytosis 1+ Erythrocyte Sedimentation Rate 117 MM/HR (0-30) H Sodium Level 140 MMOL/L (136-145) Potassium Level 5.3 MMOL/L (3.5-5.1) H Chloride Level 104 MMOL/L (98-107) Carbon Dioxide Level 31 MMOL/L (21-32) Anion Gap 5 mmol/L (5-15) Blood Urea Nitrogen 37 mg/dL (7-18) H Creatinine 1.6 MG/DL (0.55-1.30) H Estimat Glomerular Filtration Rate 33.2 mL/min (>60) Glucose Level 90 MG/DL (74-106) Calcium Level 9.0 MG/DL (8.5-10.1) Total Bilirubin 0.2 MG/DL (0.2-1.0) Aspartate Amino Transf (AST/SGOT) 13 U/L (15-37) L Alanine Aminotransferase (ALT/SGPT) 15 U/L (12-78) Alkaline Phosphatase 64 U/L (46-116) C-Reactive Protein, Quantitative 7.4 mg/dL (0.00-0.90) H Total Protein 6.5 G/DL (6.4-8.2) Albumin 2.0 G/DL (3.4-5.0) L Globulin 4.5 g/dL Albumin/Globulin Ratio 0.4 (1.0-2.7) L Objective HEENT: Atraumatic and normocephalic. Anicteric. Pupils are equal, round, and reactive to light and accommodation. Conjunctival pallor is present. NECK: JVP <5cm. No carotid bruit. Carotid upstrokes 2+ bilaterally. CARDIOVASCULAR: Normal S1, S2. Regular rate and rhythm. No murmurs, gallops, or rubs. PMI is at fourth intercostal space in the midclavicular line. LUNGS: Clear to auscultation bilaterally. ABDOMEN: Soft, nondistended. No hepatosplenomegaly. Positive bowel sounds. Bilateral nephrostomy tubes. EXTREMITIES: Left BKA, otherwise no edema, clubbing, or cyanosis. Justo Merchant MD May 10, 2019 23:47
[2019-05-11] VITALS: BP 99/60
--- NOTE | 2019-05-11 02:15 | NUR ---
NURSE NOTES: Called and left a message with Joanne Almanzar regarding pts request for a sleeping pill. Awaiting call back.
[2019-05-11] MEDS: NovoLOG Insulin Flexpen SUBQ SCH ×2 (06:10→11:30)
--- NOTE | 2019-05-11 07:26 | NUR ---
HAND-OFF: Report given to Thom. GUZMAN. Pt stable.
[2019-05-11 07:42] VITALS: BP 110/74
--- NOTE | 2019-05-11 08:00 | NUR ---
NURSE NOTES: PT AWAKE ALERT, NO DISTRESS. NO C/O PAIN, CALL LIGHT WITHIN REACH. WILL MONITOR. BED IN LOWEST POSITION, LOCKED. DRESSING CHANGED ON LUE PICC. LEFT NEPHROSTOMY INTACT DRAINING CLEAR OUTPUT. RIGHT NEPHROSTOMY INTACT DRAINING SEROSANGUINEOUS OUTPUT , DRAINED 100ML
[2019-05-11] MEDS: Solu-MEDROL 40mg Inj IVP SCH (08:25)
[2019-05-11] MEDS: Meropenem 1 GM in NS 55 ML IVPB SCH (08:26)
[2019-05-11] MEDS: Heparin 5000 units/ml inj SUBQ SCH (08:27)
[2019-05-11] MEDS: Lacosamide 50mg tablet ORAL SCH (08:27)
--- NOTE | 2019-05-11 09:12 | Hematology/Onc Progress Note ---
Assessment/Plan Assessment/Plan Assessment/Plan: # Anemia of chronic disease due to underlying chronic medical issues, multifactorial --> Anemia workup has been ordered, rule out gi bleed and no hemolysis is seen, ferritin is 1551 --> No evidence of hemolysis is noted, peripheral smear has been reviewed. --> Hgb goal >7. Transfuse prn. --> Epogen or iron at this time is not particularly indicated --> Medications have been reviewed --> stool ob negative --> hgb trend 11.7-->10.7-->7.4-->7.1-->8.6-->9 -->9.1 # Leukocytosis is likely related to infection, reactive process, v infection v intubation, in past had esbl uti --> have reviewed peripheral smear and bandemia/neutrophilia noted --> continue antibiotics if they have been started by ID team MEROP --> monitor for resolution --> wbc trend: 14.2-->16.1-->22 --> also is on steroids # Left kidney mass -- 5 cm low-attenuation lesion demonstrating slightly higher than normal fluid attenuation coming off of the upper pole left kidney --> likely represents a complex possibly proteinaceous cyst, but necrotic solid mass also possible --> as per uro, appears stable # Dehydration --> ivf have been started --> anti-nausea meds started # S/P BKA (below knee amputation) unilateral --> left leg s/p amputation # Anxiety --> as per psych # Right hydronephrosis --> per uro --> s/ nephrostomy tube by Dr. Cuello # Resp failure s/p intubation --> intub 05/02 --> extubated 05/04 # Critically ill requiring icu adm on 05/03, now out of icu # Dvt ppx heparin sq The timing of this note does not necessarily reflect the time of the patient was seen. Greatly appreciate consultation. Subjective Constitutional: Denies: no symptoms, chills, fever, malaise, weakness, other Cardiovascular: Denies: no symptoms, chest pain, edema, irregular heart rate, lightheadedness, palpitations, syncope, other Respiratory: Denies: no symptoms, cough, shortness of breath, SOB with excertion, SOB at rest, sputum, wheezing, other Gastrointestinal/Abdominal: Denies: no symptoms, abdomen distended, abdominal pain, black stools, tarry stools, blood in stool, constipated, diarrhea, difficulty swallowing, nausea, poor appetite, poor fluid intake, rectal bleeding , vomiting, other Genitourinary: Denies: no symptoms, burning, discharge, frequency, flank pain, hematuria, incontinence, pain, urgency, other Neurologic/Psychiatric: Denies: no symptoms, anxiety, depressed, emotional problems, headache, numbness, paresthesia, pre-existing deficit, seizure, tingling, tremors, weakness, other Endocrine: Denies: no symptoms, excessive sweating, flushing, intolerance to cold, intolerance to heat, increased hunger, increased thirst, increased urine, unexplained weight gain, unexplained weight loss, other Hematologic/Lymphatic: Denies: no symptoms, anemia, easy bleeding, easy bruising, adenopathy, other Allergies: Coded Allergies: Grits (Unverified Allergy, Unknown, 07/06/17) [place] (Unverified Allergy, Unknown, 07/06/17) Subjective 05/04: no bleeding or chills, no night sweats, cbc noted, on abx, gett prbc today , consent signed 05/05: has refused bipap, otherwise no bleeding or chills, no night sweats, cbc pending 05/06: awake and alert, no acute distress, h/h stable nc, gillian 05/08: awake, no acute events, stool ob negative, nc, labs reviewed 05/09: no events, no bleeding or chills. labs are reviewed, no f 05/10: wbc remains higher, is on meropenem, and steriods 05/11: right nephrostomy functional no events, labs noted, sleepy Objective Objective Current Medications Medications (Trade) Dose Ordered Sig/William Route PRN Reason Start Time Stop Time Status Last Admin Dose Admin Acetaminophen (Tylenol) 650 mg Q6H PRN ORAL Mild Pain/Temp > 100.5 05/07/19 14:00 06/06/19 13:59 05/11/19 06:14 Albuterol/ Ipratropium (Albuterol/ Ipratropium) 3 ml Q4H PRN HHN Shortness of Breath 05/08/19 06:00 05/13/19 05:59 Allopurinol (allopurinoL) 300 mg DAILY ORAL 05/08/19 09:00 06/04/19 08:59 05/11/19 08:26 Chlorhexidine Gluconate (Genevieve-Hex 2%) 1 applic DAILY@2000 TOPIC 05/07/19 20:00 06/04/19 19:59 05/10/19 22:26 Dextrose (Dextrose 50%) 25 ml Q30M PRN IV Hypoglycemia 05/07/19 01:15 06/01/19 20:44 Dextrose (Dextrose 50%) 50 ml Q30M PRN IV Hypoglycemia 05/07/19 01:15 06/01/19 20:44 Gabapentin (Neurontin) 200 mg THREE TIMES A DAY ORAL 05/07/19 18:00 06/06/19 17:59 05/11/19 08:26 Heparin Sodium (Porcine) (Heparin 5000 units/ml) 5,000 units EVERY 12 HOURS SUBQ 05/07/19 09:00 06/01/19 20:59 05/11/19 08:27 Insulin Aspart (NovoLOG) AC+HS SUBQ 05/07/19 06:30 06/02/19 00:00 05/10/19 17:02 Lacosamide (Vimpat) 100 mg DAILY ORAL 05/07/19 09:00 06/03/19 08:59 05/11/19 08:27 Levetiracetam (Keppra) 250 mg Q12HR ORAL 05/07/19 21:00 06/06/19 20:59 05/11/19 08:26 Meropenem 1 gm/ Sodium Chloride 55 ml @ 110 mls/hr Q12HR IVPB 05/10/19 23:00 05/14/19 22:59 05/11/19 08:26 Methylprednisolone Sodium Succinate (Solu-MEDROL) 20 mg Q24HRS IVP 05/10/19 09:00 06/01/19 21:59 05/11/19 08:25 Olanzapine (ZyPREXA) 5 mg BEDTIME ORAL 05/07/19 21:00 06/04/19 20:59 05/10/19 22:17 Pantoprazole (Protonix) 40 mg EVERY 12 HOURS ORAL 05/07/19 09:00 06/04/19 20:59 05/11/19 08:27 Last 24 Hour Vital Signs Date Time Temp Pulse Resp B/P (MAP) Pulse Ox O2 Delivery O2 Flow Rate FiO2 05/11/19 08:42 Room Air 2.0 Nasal Cannula 05/11/19 07:42 98.6 96 16 110/74 (86) 99 05/11/19 04:00 86 05/11/19 00:00 97.0 72 16 99/60 (73) 99 05/11/19 00:00 86 05/10/19 21:00 Nasal Cannula 2.0 Nasal Cannula 2.0 05/10/19 20:00 86 05/10/19 20:00 98.2 88 20 133/77 (95) 96 05/10/19 16:00 97.9 91 20 105/70 (82) 94 05/10/19 16:00 81 05/10/19 12:00 87 05/10/19 11:15 88 18 140/94 (109) 98 05/10/19 11:10 86 18 138/94 (109) 97 05/10/19 11:05 81 18 134/92 (106) 100 05/10/19 11:00 79 18 135/89 (104) 100 05/10/19 10:55 83 18 130/90 (103) 99 05/10/19 10:50 82 18 134/94 (107) 100 05/10/19 10:25 74 18 3.0 05/10/19 09:00 Nasal Cannula 2.0 Nasal Cannula 2.0 05/10/19 08:00 76 05/10/19 04:00 97.2 65 16 102/65 (77) 94 05/10/19 04:00 69 05/10/19 00:00 97.7 70 16 103/71 (82) 95 05/10/19 00:00 76 05/09/19 21:00 Nasal Cannula 2.0 Nasal Cannula 2.0 05/09/19 20:00 78 05/09/19 20:00 97.9 93 16 95/67 (76) 95 05/09/19 19:00 84 18 100 Bi-Pap 35 05/09/19 16:00 71 05/09/19 16:00 98.2 78 17 128/56 (80) 93 05/09/19 12:00 98.0 80 16 135/71 (92) 100 05/09/19 12:00 64 Intake and Output 05/10/19 05/11/19 19:00 07:00 Output Total 3550 ml 1700 ml Balance -3550 ml -1700 ml Output Urine Total 2150 ml 500 ml Other 1400 ml 1200 ml Labs Test 05/09/19 08:25 05/09/19 10:15 05/10/19 07:36 White Blood Count 18.8 K/UL (4.8-10.8) 21.5 K/UL (4.8-10.8) Red Blood Count 2.77 M/UL (4.20-5.40) 2.66 M/UL (4.20-5.40) Hemoglobin 9.1 G/DL (12.0-16.0) 8.7 G/DL (12.0-16.0) Hematocrit 26.1 % (37.0-47.0) 25.0 % (37.0-47.0) Mean Corpuscular Volume 94 FL (80-99) 94 FL (80-99) Mean Corpuscular Hemoglobin 32.7 PG (27.0-31.0) 32.7 PG (27.0-31.0) Mean Corpuscular Hemoglobin Concent 34.7 G/DL (32.0-36.0) 34.7 G/DL (32.0-36.0) Red Cell Distribution Width 14.1 % (11.6-14.8) 13.8 % (11.6-14.8) Platelet Count 378 K/UL (150-450) 385 K/UL (150-450) Mean Platelet Volume 4.8 FL (6.5-10.1) 5.3 FL (6.5-10.1) Neutrophils (%) (Auto) % (45.0-75.0) % (45.0-75.0) Lymphocytes (%) (Auto) % (20.0-45.0) % (20.0-45.0) Monocytes (%) (Auto) % (1.0-10.0) % (1.0-10.0) Eosinophils (%) (Auto) % (0.0-3.0) % (0.0-3.0) Basophils (%) (Auto) % (0.0-2.0) % (0.0-2.0) Differential Total Cells Counted 100 100 Neutrophils % (Manual) 61 % (45-75) 77 % (45-75) Lymphocytes % (Manual) 24 % (20-45) 14 % (20-45) Monocytes % (Manual) 12 % (1-10) 6 % (1-10) Eosinophils % (Manual) 3 % (0-3) 3 % (0-3) Basophils % (Manual) 0 % (0-2) 0 % (0-2) Band Neutrophils 0 % (0-8) 0 % (0-8) Platelet Estimate Adequate Adequate Platelet Morphology Normal Normal Anisocytosis 1+ 1+ Sodium Level 142 MMOL/L (136-145) 140 MMOL/L (136-145) Potassium Level 4.9 MMOL/L (3.5-5.1) 5.3 MMOL/L (3.5-5.1) Chloride Level 106 MMOL/L (98-107) 104 MMOL/L (98-107) Carbon Dioxide Level 31 MMOL/L (21-32) 31 MMOL/L (21-32) Anion Gap 5 mmol/L (5-15) 5 mmol/L (5-15) Blood Urea Nitrogen 48 mg/dL (7-18) 37 mg/dL (7-18) Creatinine 1.4 MG/DL (0.55-1.30) 1.6 MG/DL (0.55-1.30) Estimat Glomerular Filtration Rate 38.7 mL/min (>60) 33.2 mL/min (>60) Glucose Level 84 MG/DL (74-106) 90 MG/DL (74-106) Calcium Level 9.1 MG/DL (8.5-10.1) 9.0 MG/DL (8.5-10.1) Phosphorus Level 3.5 MG/DL (2.5-4.9) Magnesium Level 1.4 MG/DL (1.8-2.4) Total Bilirubin 0.2 MG/DL (0.2-1.0) 0.2 MG/DL (0.2-1.0) Aspartate Amino Transf (AST/SGOT) 15 U/L (15-37) 13 U/L (15-37) Alanine Aminotransferase (ALT/SGPT) 17 U/L (12-78) 15 U/L (12-78) Alkaline Phosphatase 60 U/L (46-116) 64 U/L (46-116) Total Protein 6.4 G/DL (6.4-8.2) 6.5 G/DL (6.4-8.2) Albumin 2.0 G/DL (3.4-5.0) 2.0 G/DL (3.4-5.0) Globulin 4.4 g/dL 4.5 g/dL Albumin/Globulin Ratio 0.5 (1.0-2.7) 0.4 (1.0-2.7) Prothrombin Time 10.6 SEC (9.30-11.50) Prothromb Time International Ratio 1.0 (0.9-1.1) Activated Partial Thromboplast Time 26 SEC (23-33) Hypochromasia 2+ Erythrocyte Sedimentation Rate 117 MM/HR (0-30) C-Reactive Protein, Quantitative 7.4 mg/dL (0.00-0.90) Height (Feet): 5 Height (Inches): 3.00 Weight (Pounds): 208 Objective PE Vital Signs Gen: unresponsive Pulm:++self-extubated CV: RRR, no mgr Abd: soft, nt, d Ext: no cce, s/p bka lle Labs: noted Colby Canada MD May 11, 2019 09:12
--- NOTE | 2019-05-11 09:35 | Surgery Progress Note ---
Surgery Progress Note Subjective Procedure Performed right femoral central venous catheter insertion Additional Comments PICC line placed Nephrostomy tube placed doing well weaning steroids Objective Last 24 Hour Vital Signs Date Time Temp Pulse Resp B/P (MAP) Pulse Ox O2 Delivery O2 Flow Rate FiO2 05/11/19 08:42 Room Air 2.0 Nasal Cannula 05/11/19 07:42 98.6 96 16 110/74 (86) 99 05/11/19 04:00 86 05/11/19 00:00 97.0 72 16 99/60 (73) 99 05/11/19 00:00 86 05/10/19 21:00 Nasal Cannula 2.0 Nasal Cannula 2.0 05/10/19 20:00 86 05/10/19 20:00 98.2 88 20 133/77 (95) 96 05/10/19 16:00 97.9 91 20 105/70 (82) 94 05/10/19 16:00 81 05/10/19 12:00 87 05/10/19 11:15 88 18 140/94 (109) 98 05/10/19 11:10 86 18 138/94 (109) 97 05/10/19 11:05 81 18 134/92 (106) 100 05/10/19 11:00 79 18 135/89 (104) 100 05/10/19 10:55 83 18 130/90 (103) 99 05/10/19 10:50 82 18 134/94 (107) 100 05/10/19 10:25 74 18 3.0 I&O Intake and Output 05/10/19 05/11/19 19:00 07:00 Output Total 3550 ml 1700 ml Balance -3550 ml -1700 ml Output Urine Total 2150 ml 500 ml Other 1400 ml 1200 ml Dressing: other Wound: other Drains: other Cardiovascular: RSR Respiratory: decreased breath sounds Abdomen: soft, present bowel sounds, non-distended Extremities: no tenderness, no cyanosis Plan Problems: (1) Stage 4 skin ulcer of sacral region Assessment & Plan: Pt presented on admission with Unstageable pressure injury sacrum . Base of wound has 90% soft tse slough with surrounding erythematous borders (L)2.7cm x (W)2cm. Inferior to sacral pressure injury Moisture Intertrigo noted to cleft of buttocks-perianal area. Erythema with moisture denudement noted(L)5cm. Additionally, two areas noted to R and L clefts of buttocks. Both purple areas without erythema or induration. Diffused red rash noted to thoracic -lumbar area. open stoma from previously extracted nephrostomy draining large amt of urine. Skin is erythematous peristomal. Skin Barrier Wipe applied peristomal. Eakins ring applied peristomal and Urostomy pouch placed over stoma and connected to drainage bag. L BKA stump without evidene of skin breakdown. R heel is soft but blanchable. No other skin concerns noted. Tx.plan: Cleanse Sacral wound with Saline. Apply TheraHoney. Apply Moisture Barrier Paste periwound. Cover with Optifoam drsg . Change Daily and prn. Apply Moisture Barrier paste to thoracic- lumbar area daily and prn. Apply Moisture Barrier paste to cleft of buttocks with each incontinence care. Apply Cavilon Skin Barrier to R heel. Cover with Optifoam drsg. Change every 7 days and prn. Reposition at least every 2hours or as tolerated. Off-load R heel with pillow. APM/BHAVIN Mattress overlay. (2) Leukocytosis Assessment & Plan: Patient's presents with subjective fevers, leukocytosis, anemia, abnormal labs. Since intubated in the ICU prior now self extubated doing well. Labs improving. Afebrile, hemodynamic stable, lactate normal worsening leukocytosis On antibiotics as per ID no acute surgical intervention recommended Trend labs PICC placed fem line out nephrostomy tube placed d/c planning wean steroids - likely etiology of leukocytosis Will follow with recommendations (3) Cellulitis (4) S/P BKA (below knee amputation) unilateral Assessment & Plan: Left lower extremity BKA flap okay with mild granulation tissue at the lateral edge healing well. Historic and prior prosthetic believes it was shot off. Offload pressure with pillows Foam dressing to wound bed Star Molina May 11, 2019 09:35
--- NOTE | 2019-05-11 09:39 | NUR ---
CASE MANAGEMENT:REVIEW 05/11/19 SI: PNA. E COLI SEPSIS (BLOOD/URINE/SPUTUM) RESPIRATORY FAILURE......S/P EXTUBATION 98.6 96 16 110/74 99% 2L/NC IS: IV SOLUMEDROL Q24HRS IV MEROPENEM Q12 HEPARIN SQ Q12 KEPPRA PO Q12 VIMPAT PO QD : NOW ON TELEMETRY DCP: FROM [facility]
--- NOTE | 2019-05-11 09:50 | NUR ---
DISCHARGE PLANNING FAXED CLINICALS TO [facility] T: [phone] WAITING FOR ASSIGNED ROOM AND BED NUMBER
[2019-05-11] MEDS ORDERED: MEROPENEM1 GM IV (10:28)
--- NOTE | 2019-05-11 11:33 | NUR ---
DISCHARGE PLANNED PATIENT HAS BEEN ACCEPTED BACK TO [facility] ROOM 23B SKILLED T: [phone] FOR NURSE TO NURSE REPORT [facility] HAS BEEN ARRANGED FOR [address]
--- NOTE | 2019-05-11 11:54 | Nephrology Progress Note ---
Assessment/Plan Problem List: (1) Renal failure Assessment: acute on chronic (2) Dehydration (3) Respiratory failure Assessment: self extubated (4) Anemia (5) Hydronephrosis Assessment: nephrostomies Assessment Acute on Chronic Renal Failure + Severe dehydration- IMPROVING h/o ? kidney mass h/o hydronephrosis - has Nephrostomie Anemia Ventilator Dependent Respiratory failure pulmonary infiltrate / Urinary tract infection h/o ESBL UTI from senior care Seizure disorder on Clonazepam and Gabapentin Schizophrenia Hypertension, presented with low BP Obesity Plan taper steroids per pulmonary Mag supplement as needed s/p Self extubated DC Hydrate Midodrine prn pulmonary support DC Bicitra Transfuse as needed monitor renal parameters Urology eval avoid nephrotoxics per consultants Moderate right hydronephrosis. This is apparently new at least since the last exam from 07/12/2018. More recent exam had shown placement of a ureteral stent on the right which we're told was removed. Consider noncontrast CT for further evaluation. Left ureteral stent the partially visualized. No hydronephrosis in the left kidney. Subjective ROS Limited/Unobtainable: No Constitutional: Reports: malaise Objective Objective Last 24 Hour Vital Signs Date Time Temp Pulse Resp B/P (MAP) Pulse Ox O2 Delivery O2 Flow Rate FiO2 05/11/19 08:42 Room Air 2.0 Nasal Cannula 05/11/19 07:42 98.6 96 16 110/74 (86) 99 05/11/19 07:40 97 05/11/19 04:00 86 05/11/19 00:00 97.0 72 16 99/60 (73) 99 05/11/19 00:00 86 05/10/19 21:00 Nasal Cannula 2.0 Nasal Cannula 2.0 05/10/19 20:00 86 05/10/19 20:00 98.2 88 20 133/77 (95) 96 05/10/19 16:00 97.9 91 20 105/70 (82) 94 05/10/19 16:00 81 05/10/19 12:00 87 Intake and Output 05/10/19 05/11/19 19:00 07:00 Output Total 3550 ml 1700 ml Balance -3550 ml -1700 ml Output Urine Total 2150 ml 500 ml Other 1400 ml 1200 ml Height (Feet): 5 Height (Inches): 3.00 Weight (Pounds): 208 General Appearance: no apparent distress Cardiovascular: arrhythmia Abdomen: soft Objective no change Derrell Hatch MD May 11, 2019 11:54
[2019-05-11 12:00] VITALS: BP_SYST 108; BP_SYST 110; BP_DIAS 64; BP_DIAS 74
[2019-05-11 13:15] VITALS: BP 116/70
[2019-05-11] MEDS ORDERED: 1/2 NS 1000ml IV ONE (14:09)
--- NOTE | 2019-05-11 14:12 | NUR ---
NURSE NOTES: pt left in stable condition, w all belongings. picc on lue intact. per pt she had bm yesterday.
--- NOTE | 2019-05-11 15:35 | NUR ---
SWALLOW STATUS/D/C SUMMARY: PATIENT ALERT AND COOPERATIVE. PER CHART, P.O. INTAKE GOALS MET. STAFF GOALS MET RELATIVE TO: STAFF EDUCATED/TRAINED IN POSTED PRECAUTIONS. PATIENT'S D/C IS PENDING TO [facility] THIS AFTERNOON. NO FURTHER SKILLED ST NEEDED AT THIS TIME.
--- NOTE | 2019-05-11 18:21 | Pulmonolgy Critical Care Note ---
Critical Care - Asmt/Plan Assessment/Plan: Pulmonary Progress Note HPI This patient is a 58 year old woman with past history of Chronic Obstructive Pulmonary Disease, Seizures, Previous CVA/TIA, Hypertension, CAD, Cervical cancer s/p Uropathy - has B/L Nephrostomy tubes, Chronic kidney disease, Peripheral vascular disease sp LLE amputation, Schizophrenia, admitted from nursing home facility with shortness of breath, fever, N/V and hypoxemia. On NC O2 Improved metabolic acidosis Hematology following for anemia UTI - ESBL GNR, pos BC for GNR Increasing WCC - Hematology/ID following, steroids weaned to 20mg Has femoral line denies SOB, no new complaints Allergies: Grits [place] Past Medical History: see triage record, old chart reviewed, HTN, CAD, asthma, COPD, GERD, CVA/TIA, seizures, psych hx - schizophrenia, renal disease, other - cervical ca s/p obstructive uropathy s/p BL nephrostomy tubes, muscle weakness Past Surgical History: other - L. BKA Physical Exam Vital Signs Noted General Appearance: no apparent distress, awake, non-toxic Head: normocephalic, atraumatic Eyes: bilateral eye normal inspection, bilateral eye PERRL ENT: hearing grossly normal, normal pharynx Neck: full range of motion, supple/symm/no masses Respiratory: chest non-tender, CTAB Cardiovascular: regular rate, rhythm, HS1, HS2 normal, no edema Gastrointestinal: normal bowel sounds, non tender, soft, non-distended, no guarding, no rebound Rectal: deferred Musculoskeletal: back normal, normal range of motion, non-tender, other - L. BKA Neurologic: awake, interactive, no focal signs Impression: Chronic Obstructive Pulmonary Disease Exacerbation - imptoving Possible Pneumonia Chronic kidney disease Hydronephrosis, L nephrostomy Urinary Tract Infection, ESBL Anemia Leukocytosis Seizures Previous CVA/TIA Hypertension CAD Cervical cancer s/p Uropathy - previous R Nephrostomy tube Peripheral vascular disease sp LLE amputation Schizophrenia Plan - ID following - NC O2 - IV Steroids - wean - 20 daily - can be DC on PO steroids tailed over further 4 days from Pulmonary perspective - HHN - IVF per Renal - ISS - PPX - Monitor labs - FREIGHT FORWARDER Medications Time: 45 minutes, 23 minutes care co-ordination DW: GUZMAN Levi earlier Laboratory Tests Noted EKG: Rate: normal Rhythm: NSR ST Segments: no acute changes Chest X-Ray: no effusion, no pneumothorax, other possible- RLL opacity CXR #2: Appropriate ET tube placement s/p RSI LE Dupplex: negative URINE CULTURE Final COMMENTS: KNOWN ESBL. Organism 1 ESCHERICHIA COLI - ESBL COLONY COUNT: >100,000 CFU/ML ESCCOL ESB M.I.C. RX --------- --- AMPICILLIN >=32 R CEFAZOLIN >=64 R CEFTAZIDIME R CEFTRIAXONE >=64 R CEFEPIME R CIPROFLOXACIN >=4 R GENTAMICIN <=1 S LEVOFLOXACIN >=8 R IMIPENEM <=0.25 S NITROFURANTOIN <=16 S TIGECYCLINE <=0.5 S TRIMETHOPRIM/SULFA <=20 S AMIKACIN 16 S PIPERACILLIN/TAZOBACTAM 8 S SEEN EARLIER Critical Care - Objective Last 24 Hour Vital Signs Date Time Temp Pulse Resp B/P (MAP) Pulse Ox O2 Delivery O2 Flow Rate FiO2 05/11/19 13:15 98.6 96 16 116/70 (85) 99 05/11/19 12:00 98.6 96 16 108/64 (79) 99 05/11/19 08:42 Room Air 2.0 Nasal Cannula 05/11/19 07:42 98.6 96 16 110/74 (86) 99 05/11/19 07:40 97 05/11/19 04:00 86 05/11/19 00:00 97.0 72 16 99/60 (73) 99 05/11/19 00:00 86 05/10/19 21:00 Nasal Cannula 2.0 Nasal Cannula 2.0 05/10/19 20:00 86 05/10/19 20:00 98.2 88 20 133/77 (95) 96 Accucheck: 113 Critical Care - Subjective ROS Limited/Unobtainable: No Condition: improving FI02: 35 Vent Support Breath Rate: 22 Vent Support Mode: BiLevel Vent Tidal Volume: 450 Sputum Amount: None PEEP: 5.0 PIP: 41 Tube Feeding Amount: 0 I&O: Intake and Output 05/10/19 05/11/19 19:00 07:00 Output Total 3550 ml 1700 ml Balance -3550 ml -1700 ml Output Urine Total 2150 ml 500 ml Other 1400 ml 1200 ml ET-Tube: 7.5 ET Position: 22 Gabino Smith MD May 11, 2019 18:21
--- NOTE | 2019-05-11 21:04 | General Progress Note ---
Assessment/Plan Status: progressing, unchanged Assessment/Plan: Assessment - Resp failure - resolved - anemia - PVD Recommendations - push po - Follow labs - abx - d/c planning Subjective Allergies: Coded Allergies: Grits (Unverified Allergy, Unknown, 07/06/17) [place] (Unverified Allergy, Unknown, 07/06/17) Subjective Feels OK no abdominal symptoms tolerating PO for discharge today Objective Last 24 Hour Vital Signs Date Time Temp Pulse Resp B/P (MAP) Pulse Ox O2 Delivery O2 Flow Rate FiO2 05/11/19 13:15 98.6 96 16 116/70 (85) 99 05/11/19 12:00 98.6 96 16 108/64 (79) 99 05/11/19 08:42 Room Air 2.0 Nasal Cannula 05/11/19 07:42 98.6 96 16 110/74 (86) 99 05/11/19 07:40 97 05/11/19 04:00 86 05/11/19 00:00 97.0 72 16 99/60 (73) 99 05/11/19 00:00 86 Intake and Output 05/10/19 05/11/19 19:00 07:00 Output Total 3550 ml 1700 ml Balance -3550 ml -1700 ml Output Urine Total 2150 ml 500 ml Other 1400 ml 1200 ml Height (Feet): 5 Height (Inches): 3.00 Weight (Pounds): 208 Objective WDWN NCAT supple CTA RR abd soft no edema, (+) Landon Mckeon MD May 11, 2019 21:04
--- NOTE | 2019-05-11 23:33 | Cardiology Progress Note ---
Assessment/Plan Assessment/Plan 1. Hypotension, most likely septic shock, resolved, 2D echocardiography with normal LV systolic and diastolic function with LVEF of approximately 65%. 2. History of peripheral vascular disease, status post left BKA. 3. History of CVA/TIA. 4. Acute respiratory failure, resolved. Chest x-ray shows no acute cardiopulmonary disease. 5. Obstructive uropathy, status post nephrostomy tube placement. 6. Acute kidney injury on CKD, creat at 1.6. 7. Seizure disorder. 8. Mixed hyperlipidemia with metabolic syndrome. 9. E. Coli ESBL UTI. Subjective Subjective Sinus rhythm at rate of 96. Objective Last 24 Hour Vital Signs Date Time Temp Pulse Resp B/P (MAP) Pulse Ox O2 Delivery O2 Flow Rate FiO2 05/11/19 13:15 98.6 96 16 116/70 (85) 99 05/11/19 12:00 98.6 96 16 108/64 (79) 99 05/11/19 08:42 Room Air 2.0 Nasal Cannula 05/11/19 07:42 98.6 96 16 110/74 (86) 99 05/11/19 07:40 97 05/11/19 04:00 86 05/11/19 00:00 97.0 72 16 99/60 (73) 99 05/11/19 00:00 86 Intake and Output 05/10/19 05/11/19 18:59 06:59 Output Total 3550 ml 1700 ml Balance -3550 ml -1700 ml Output Urine Total 2150 ml 500 ml Other 1400 ml 1200 ml 2D Echo: LVEF 60%, RVSP 31 mmHg, Normal LV Diastolic fxn. Objective HEENT: Atraumatic and normocephalic. Anicteric. Pupils are equal, round, and reactive to light and accommodation. Conjunctival pallor is present. NECK: JVP <5cm. No carotid bruit. Carotid upstrokes 2+ bilaterally. CARDIOVASCULAR: Normal S1, S2. Regular rate and rhythm. No murmurs, gallops, or rubs. PMI is at fourth intercostal space in the midclavicular line. LUNGS: Clear to auscultation bilaterally. ABDOMEN: Soft, nondistended. No hepatosplenomegaly. Positive bowel sounds. Bilateral nephrostomy tubes. EXTREMITIES: Left BKA, otherwise no edema, clubbing, or cyanosis. Justo Merchant MD May 11, 2019 23:33
--- NOTE | 2019-05-12 11:22 | Discharge Summary ---
Discharge Summary Discharge Summary _ DATE OF ADMISSION: 05/02/2019 DATE OF DISCHARGE: 05/11/2019 DISCHARGED BY: Dr Rubio REASON FOR ADMISSION: 58 years old female with past medical history of PVD, left BKA, hypertension, coronary artery disease, asthma, COPD, GERD, CVA/TIA, seizure disorder, schizophrenia, renal disease, cervical CA , obstructive uropathy status post nephrostomy tube, was sent from the senior living [facility] for shortness of breath and hypoxemia. Fever was also reported . Upon evaluation in emergency department vital signs were stable. Patient required supplemental oxygen. Chest x-ray revealed early opacity , possibly consistent with pneumonia. Laboratory work-up revealed acute renal failure. Septic work-up initiated. While in the emergency department , patient e suddenly decompensated, and her pulse oximetry dropped to 50s . She was altered and was gasping for air. Lung sound became very diminished. Patient was bagged and emergently intubated by rapid sequence intubation. Patient demonstrated significant improvement in lung sounds. Right internal jugular central line was placed due to very poor peripheral access. Patient became more alert and started fighting the ventilator . Patient was subsequently placed on a propofol drip and admitted to ICU for further management. Of note laboratory work-up revealed leukocytosis WBC 14.6, hemoglobin 8.8, hematocrit 20.3. BUN 124, creatinine 5.0. Glucose 109. Lactic acid 0.7. Troponin negative. Albumin 1.1. ABG right after intubation revealed pH 7.23 ,PCO2 45 ,bicarb 18, and O2 sat 95. Chest x-ray post intubation revealed satisfactory position of endotracheal tube CONSULTANTS: student admissions clerk Dr Merchant pulmonary Dr. Sarah GUARDADO specialsit Dr Solis GI specialist Dr. Hinds religious healer Dr. Hatch cut out press operator/oncologist Dr. [place] surgery Dr. Molina psychiatrist [facility] COURSE: Patient admitted to ICU. Ventilator support provided. Pulmonary toilet meticulously provided. Patient was followed with chest x-ray and ABG. Antibiotic provided as per ID specialist recommendation. Blood culture revealed E. coli ESBL. Urine culture revealed E. coli ESBL . Sputum culture revealed E. coli ESBL . Influenza swab was negative. Antibiotic regimen optimized as per ID specialist recommendation. Leukocytosis trended down. ID specialist recommended to continue antibiotic to complete the course at the facility. Venous duplex bilateral lower extremity revealed no evidence of acute DVT. Per student admissions clerk, hypotension was likely due to septic shock, which resolved. Echocardiogram done in January 2019, revealed preserved ejection fraction 65% . Patient initially was placed on IV steroids as per independent beauty consultant. Steroids were tapered . Patient was able to be extubated on 05/04. Supplemental oxygen provided and titrated to keep pulse oximetry above 92% , prior to discharge pulse oximetry was stable on room air. Per independent beauty consultant, patient discharged on oral steroids to be tapered over additional 4 days. Chest x-ray revealed malpositioning of prior right internal jugular central line. Patient required IV antibiotic due to bacteremia. Surgeon placed at the bedside right femoral central venous catheter on 05/05 due to poor peripheral access. Subsequently patient undergone placement of PICC line on . Renal ultrasound revealed moderate right hydronephrosis. Apparently new since the last exam. No hydronephrosis on the left. Patient subsequently undergone successful placement of right nephrostomy tube under sonographic and fluoroscopic guidance on 05/10/2019. Renal parameters and electrolytes were closely monitored, electrolytes corrected as needed, and nephrotoxic's were avoided. Prior to discharge BUN from 124 down to 37 and creatinine from 5.0 down to 1.6. Acute kidney injury was most likely due to dehydration and resolved with IV hydration. Wound care for stage IV sacral decubitus ulcer provided as per surgeon recommendation . Continue with wound care at the facility. Left lower extremity BKA flap with a mild granulation, healing well. Hemoglobin and hematocrit were closely monitored with goal to keep hemoglobin above 7. Anemia work-up was consistent with anemia of chronic disease due to underlying chronic medical issues , and was multifactorial. Epogen and iron at this time were not particularly indicated. Patient undergone transfusion of 1 unit of packed red blood cells while in the hospital. Prior to discharge hemoglobin 8.7 , hematocrit 25. Stool for occult blood was negative. Aspiration precaution maintained. Diet provided as per speech therapist recommendation after bedside swallow evaluation was completed. Oral fluids were pushed. Reality orientation and supportive therapy provided. Patient started on the Zyprexa. Patient clinically stabilized and was ready for transfer to senior living facility for continuation of care. FINAL DIAGNOSES: E. coli ESBL sepsis E. coli ESBL UTI E. coli ESBL pneumonia Acute respiratory failure requiring intubation, status post extubation COPD exacerbation Anemia of chronic disease Acute kidney injury ( due to dehdyaryion) on chronic kidney disease Right hydronephrosis Obstructive uropathy, status post right nephrostomy tube placement Sacral decubitus ulcer stage IV, present on admission PVD, status post left BKA Seizure disorder Mixed hyperlipidemia with metabolic syndrome History of CVA Cervical cancer Schizophrenia Acute encephalopathy. DISCHARGE MEDICATIONS: See Medication Reconciliation list. DISCHARGE INSTRUCTIONS: Patient was discharged to the senior living facility. Follow up with medical doctor at the facility. I have been assigned to dictate discharge summary for this account. I was not involved in the patient's management. Jojo Alba NP May 12, 2019 11:22
--- NOTE | 2019-05-12 17:05 | Diagnostic Imaging Report ---
Indications: Dysphagia Technique: Patient ingested multiple substances under the supervision of speech pathology. Video fluoroscopic recording performed. Total fluoroscopy time 107 seconds. Total dose area product 0.19917 mGycm2 Total number of images-11 Comparison: none Findings: With ingestion of thin liquid barium, angelito and exuberant aspiration is demonstrated. With nectar thick liquid barium, congestion through a straw results in angelito aspiration. With any thick liquid barium, there is deep supraglottic laryngeal penetration. With barium pudding, no evidence of aspiration or penetration Impression: Positive for aspiration of multiple substances, as described. Please refer to speech pathology report for more detailed analysis
== END 2019-05-11 14:10 | DRG 853 ==
LOC: EDBD 13:50 → EMR 14:30 → EDBEDREQ 15:14 → 4E 15:57 → EDBEDREQ 16:25 → 4E 17:23 → ICU 19:00 → 2W 05-05 17:00 → 2E 05-07 00:21
DX: A41.51 Sepsis due to Escherichia coli [E. coli] (principal); R65.21 Severe sepsis with septic shock; L89.154 Pressure ulcer of sacral region, stage 4; J18.9 Pneumonia, unspecified organism; J15.5 Pneumonia due to Escherichia coli; J96.00 Acute respiratory failure, unspecified whether with hypoxia or hypercapnia; J44.1 Chronic obstructive pulmonary disease with (acute) exacerbation; N39.0 Urinary tract infection, site not specified; J98.11 Atelectasis; N17.9 Acute kidney failure, unspecified; J44.0 Chronic obstructive pulmonary disease with (acute) lower respiratory infection; N13.1 Hydronephrosis with ureteral stricture, not elsewhere classified; G93.40 Encephalopathy, unspecified; Z16.12 Extended spectrum beta lactamase (ESBL) resistance; T82.524A Displacement of infusion catheter, initial encounter; E88.81 Metabolic syndrome and other insulin resistance; E86.0 Dehydration; I12.9 Hypertensive chronic kidney disease with stage 1 through stage 4 chronic kidney disease, or unspecified chronic kidney disease; I25.10 Atherosclerotic heart disease of native coronary artery without angina pectoris; E88.09 Other disorders of plasma-protein metabolism, not elsewhere classified; N28.89 Other specified disorders of kidney and ureter; D50.9 Iron deficiency anemia, unspecified; D63.8 Anemia in other chronic diseases classified elsewhere; D72.829 Elevated white blood cell count, unspecified; Y83.1 Surgical operation with implant of artificial internal device as the cause of abnormal reaction of the patient, or of later complication, without mention of misadventure at the time of the procedure; Y92.230 Patient room in hospital as the place of occurrence of the external cause; G40.909 Epilepsy, unspecified, not intractable, without status epilepticus; N18.9 Chronic kidney disease, unspecified; I73.9 Peripheral vascular disease, unspecified; E78.2 Mixed hyperlipidemia; C53.9 Malignant neoplasm of cervix uteri, unspecified; F20.9 Schizophrenia, unspecified; F41.9 Anxiety disorder, unspecified; E66.9 Obesity, unspecified; Z68.36 Body mass index [BMI] 36.0-36.9, adult; Z86.19 Personal history of other infectious and parasitic diseases; Z86.73 Personal history of transient ischemic attack (TIA), and cerebral infarction without residual deficits; Z87.440 Personal history of urinary (tract) infections; Z89.512 Acquired absence of left leg below knee; Z93.6 Other artificial openings of urinary tract status
CPT/HCPCS: 31500; 36415; 36569; 36600; 50432; 71045; 74018; 74230; 76700; 76770; 76937; 80048; 80053; 80061; 80299; 81003; 82140; 82270; 82533; 82550; 82553; 82607; 82728; 82746; 82803; 82962; 82977; 83036; 83540; 83550; 83605; 83690; 83735; 83880; 84100; 84300; 84443; 84478; 84484; 84550; 85007; 85025; 85610; 85651; 85730; 86140; 86710; 86850; 86900; 86901; 86920; 87040; 87070; 87081; 87086; 87181; 87205; 93005; 93970; 94002; 94003; 94640; 94660; 94664; 96361; 96365; 96366; 96367; 96375; 99291; J1815; J2250; J3490; J7030; J7620

== ENCOUNTER 2019-06-02 11:18 | Inpatient (IN) | payer MEDICARE, MEDICAID ==
[~2019-06-02] VITALS: Ht 162.6 cm; Wt 66.2 kg
[~2019-06-02 11:18] MED LIST changes: +FLUOXETINE HCL20 MG ORAL; +HEPARIN SO5000 UNIT2 SUBQ; +KEPPRA500 MG ORAL; +MEROPENEM1 GM IV; +NORCO 5-325 TA1 EACH ORAL; +NORVASC5 MG ORAL; +TRAZODONE HCL50 MG ORAL; +VALPROIC ACID250 MG PO; +VIMPAT100 MG PO; +ZYPREXA2.5 MG ORAL
[2019-06-02 11:20] VITALS: BP 90/60
[2019-06-02] MEDS ORDERED: KEPPRA500 M4 ORAL (11:25)
[2019-06-02] MEDS ORDERED: ASCORBIC ACID500 MG ORAL (11:25)
[2019-06-02] MEDS ORDERED: MULTIVITAMINS1 EAC2 ORAL (11:25)
[2019-06-02] MEDS ORDERED: ASPIR 8181 MG ORAL (11:25)
[2019-06-02] MEDS ORDERED: VIMPAT100 MG PO (11:25)
[2019-06-02] MEDS ORDERED: TRAMADOL HCL100 M2 ORAL (11:25)
[2019-06-02 11:43] LABS: HEMATOCRIT 22.8 % (37.0-47.0); HEMOGLOBIN 7.9 G/DL (12.0-16.0); MEAN CORPUSCULAR VOLUME 93 FL (80-99); PLATELET COUNT 415 K/UL (150-450); RED BLOOD COUNT 2.46 M/UL (4.20-5.40); RED CELL DISTRIBUTION WIDTH 14.1 % (11.6-14.8); WHITE BLOOD COUNT 10.8 K/UL (4.8-10.8)
--- NOTE | 2019-06-02 12:09 | Emergency Room Report ---
History of Present Illness General Chief Complaint: Abnormal Labs Source: Patient Present Illness HPI 58 years old female with past medical history of PVD, left BKA, hypertension, coronary artery disease, asthma, COPD, GERD, CVA/TIA, seizure disorder, schizophrenia, renal disease, cervical CA , obstructive uropathy status post nephrostomy tube, chronic anemia scented for low hemoglobin. Patient had a outpatient hemoglobin of 6.8 at her nursing home facility so was sent to the ER for further evaluation. She denies any chest pain shortness of breath but does complain of mild generalized weakness. No report of fever. No nausea or vomiting. Allergies: Coded Allergies: Grits (Unverified Allergy, Unknown, 07/06/17) [place] (Unverified Allergy, Unknown, 07/06/17) Patient History Past Medical History: see triage record Reviewed Nursing Documentation: PMH: Agreed; PSxH: Agreed Nursing Documentation-PMH Past Medical History: No History, Except For Hx Hypertension: Yes Hx Asthma: Yes Hx COPD: Yes Hx Cancer: Yes - neoplasm endocervix,left kidney Hx Gastrointestinal Problems: Yes - dysphagia Hx Neurological Problems: Yes Hx Cerebrovascular Accident: Yes Hx Seizures: Yes Hx Epilepsy: Yes Hx Weakness: Yes - MUSCULAR Review of Systems All Other Systems: negative except mentioned in HPI Physical Exam Vital Signs Date Time Temp Pulse Resp B/P (MAP) Pulse Ox O2 Delivery O2 Flow Rate FiO2 06/02/19 11:13 97.5 85 20 82/63 (69) 97 Room Air Sp02 EP Interpretation: reviewed, normal General Appearance: no apparent distress, alert, other - Pale-appearing Head: normocephalic, atraumatic Eyes: bilateral eye PERRL, bilateral eye EOMI ENT: hearing grossly normal, moist mucus membranes Neck: full range of motion, supple Respiratory: lungs clear, normal breath sounds, no rhonchi, no respiratory distress, no retraction, no wheezing Cardiovascular #1: normal peripheral pulses, regular rate, rhythm, no murmur Gastrointestinal: non tender, soft, non-distended, no guarding Genitourinary: other - Bilateral nephrostomy tubes in place Musculoskeletal: other - Left BKA noted Neurologic: alert, oriented x3, no focal defects Skin: warm/dry, pallor Medical Decision Making Diagnostic Impression: Primary Impression: Acute on chronic anemia Additional Impression: Generalized weakness ER Course Differential included anemia of chronic disease, acute on chronic anemia, low suspicion for sepsis at this time. Patient's vital signs she was not tachycardic. Blood pressure was low normal. She was alert and oriented in the ER. Outpatient laboratory studies showed a hemoglobin of 6.8. Laboratory studies here demonstrate a hemoglobin of 7.9. However patient was feeling generally weak with low normal blood pressure so I did give 1 unit of packed RBCs and will admit to the hospital for further observation. Patient admitted by primary care doctor. Will admit to the telemetry floor. Afebrile in the ER. Low suspicion for sepsis at this time Laboratory Tests Test 06/02/19 11:30 White Blood Count 10.8 K/UL (4.8-10.8) Red Blood Count 2.46 M/UL (4.20-5.40) L Hemoglobin 7.9 G/DL (12.0-16.0) L Hematocrit 22.8 % (37.0-47.0) L Mean Corpuscular Volume 93 FL (80-99) Mean Corpuscular Hemoglobin 32.3 PG (27.0-31.0) H Mean Corpuscular Hemoglobin Concent 34.7 G/DL (32.0-36.0) Red Cell Distribution Width 14.1 % (11.6-14.8) Platelet Count 415 K/UL (150-450) Mean Platelet Volume 5.0 FL (6.5-10.1) L Neutrophils (%) (Auto) % (45.0-75.0) Lymphocytes (%) (Auto) % (20.0-45.0) Monocytes (%) (Auto) % (1.0-10.0) Eosinophils (%) (Auto) % (0.0-3.0) Basophils (%) (Auto) % (0.0-2.0) Differential Total Cells Counted 100 Neutrophils % (Manual) 62 % (45-75) Lymphocytes % (Manual) 25 % (20-45) Monocytes % (Manual) 11 % (1-10) H Eosinophils % (Manual) 2 % (0-3) Basophils % (Manual) 0 % (0-2) Band Neutrophils 0 % (0-8) Platelet Estimate Adequate Platelet Morphology Normal Hypochromasia 3+ Anisocytosis 1+ Prothrombin Time 10.3 SEC (9.30-11.50) Prothrombin Time INR 1.0 (0.9-1.1) Activated Partial Thromboplast Time 29 SEC (23-33) Sodium Level 137 MMOL/L (136-145) Potassium Level 3.9 MMOL/L (3.5-5.1) Chloride Level 101 MMOL/L (98-107) Carbon Dioxide Level 20 MMOL/L (21-32) L Anion Gap 16 mmol/L (5-15) H Blood Urea Nitrogen 42 mg/dL (7-18) H Creatinine 2.0 MG/DL (0.55-1.30) H Estimate Glomerular Filtration Rate 25.7 mL/min (>60) Glucose Level 90 MG/DL (74-106) Calcium Level 9.7 MG/DL (8.5-10.1) Total Bilirubin 0.2 MG/DL (0.2-1.0) Aspartate Amino Transferase (AST) 20 U/L (15-37) Alanine Aminotransferase (ALT) 17 U/L (12-78) Alkaline Phosphatase 75 U/L (46-116) Total Protein 8.0 G/DL (6.4-8.2) Albumin 1.9 G/DL (3.4-5.0) L Globulin 6.1 g/dL Albumin/Globulin Ratio 0.3 (1.0-2.7) L EKG Diagnostic Results Rate: normal Rhythm: NSR ST Segments: no acute changes Rhythm Strip Diag. Results EP Interpretation: yes Rhythm: NSR, no PVC's, no ectopy Other Impression NSR Last Vital Signs Date Time Temp Pulse Resp B/P (MAP) Pulse Ox O2 Delivery O2 Flow Rate FiO2 06/02/19 11:20 97.6 78 19 90/60 97 Room Air Status: improved Disposition: ADMITTED INPATIENT Condition: Serious Zane Casas M.D. Jun 02, 2019 12:09
[2019-06-02 12:48] LABS: ANION GAP 16 mmol/L (5-15); BLOOD UREA NITROGEN 42 mg/dL (7-18); CALCIUM 9.7 MG/DL (8.5-10.1); CARBON DIOXIDE 20 MMOL/L (21-32); CHLORIDE 101 MMOL/L (98-107); POTASSIUM 3.9 MMOL/L (3.5-5.1); SODIUM 137 MMOL/L (136-145)
[2019-06-02 12:52] LABS: ALANINE AMINOTRANSFERASE 17 U/L (12-78); ALBUMIN 1.9 G/DL (3.4-5.0); ALBUMIN/GLOBULIN RATIO 0.3 (1.0-2.7); ALKALINE PHOSPHATASE 75 U/L (46-116); ASPARTATE AMINO TRANSFERASE 20 U/L (15-37); BILIRUBIN,TOTAL 0.2 MG/DL (0.2-1.0)
[2019-06-02 13:31] VITALS: BP 96/63
[2019-06-02] MEDS ORDERED: Tylenol #3 tab (300mg/30mg) ORAL ONE (14:30)
[2019-06-02 14:36] VITALS: BP 112/60
--- NOTE | 2019-06-02 14:41 | Consultation ---
Consult Note Consult Note I was asked to evaluate the patient at the request of Dr. Rubio. Patient is known to me from her previous admission. Patient was discharged from [facility] on May 11. Patient was transferred to emergency room from extended care facility that she is living in for abnormal lab. She is 58 years old female with a past history of left BKA peripheral vascular disease hypertension coronary artery disease COPD CVA gastroesophageal reflux disease asthma seizure disorder schizophrenia renal disease cervical cancer obstructive uropathy and the patient have to nephrostomy tubes in place patient also have chronic anemia Her chief complaint is generalized weakness and pain all over her body she also claims to have periodic dizziness Allergies are to crates and hominy Patient seen in the emergency room. She is being transfused currently with packed RBCs. Blood pressure systolic is 90. Patient is afebrile. Pulse rate 78. Respiratory rate 19. Pulse ox 97% in room air. Patient is afebrile pale and to some degree lethargic. Lungs no rales no rhonchi heart mainly regular abdomen slightly obese soft Lab data reviewed Old chart reviewed . Assessment/Plan Acute on chronic renal failure. Her imposed dehydration. Bilateral nephrostomies. Symptomatic anemia. Previous respiratory failure requiring mechanical intubation and ventilation. History of urinary tract infection. Seizure disorders. Schizophrenia Hypertension however presents with low blood pressure. Mild obesity with BMI of 30.3. Plan Transfusion in process Slow hydrate Monitor renal parameters Avoid nephrotoxic's Continue per consultants Derrell Hatch MD Jun 02, 2019 14:41
[2019-06-02] MEDS: D5NS 1,000 ML IV SCH (16:40)
[2019-06-02] MEDS: Docusate 100mg cap ORAL SCH (18:43)
[2019-06-02] MEDS ORDERED: HYDROcodone/Acetamin 5/325 tab ORAL PRN (19:00)
[2019-06-02 20:30] VITALS: BP 100/65
[2019-06-02] MEDS: TraZODone 50mg tab ORAL SCH (20:57)
[2019-06-02] MEDS: HYDROcodone/Acetamin 5/325 tab ORAL PRN (20:57)
[2019-06-03] VITALS: BP 109/69
[2019-06-03 00:36] LABS: BILIRUBIN, URINE NEGATIVE (NEGATIVE); COLOR,URINE PALE YELLOW; GLUCOSE, URINE (UA) NEGATIVE (NEGATIVE); KETONES,URINE NEGATIVE (NEGATIVE); NITRITE,URINE NEGATIVE (NEGATIVE); PH,URINE 6 (4.5-8.0); PROTEIN,URINE 2+ (NEGATIVE); UROBILINOGEN,URINE NORMAL MG/DL (0.0-1.0)
[2019-06-03 01:13] LABS: APPEARANCE,URINE SLIGHTLY CLOUDY; LEUKOCYTE ESTERASE ,URINE 2+ (NEGATIVE)
[2019-06-03 04:00] VITALS: BP 111/63
[2019-06-03] MEDS: Heparin 5000 units/ml inj SUBQ SCH ×3 (06:00→22:00)
--- NOTE | 2019-06-03 06:00 | Consultation ---
History of Present Illness General Chief Complaint: Abnormal Labs Present Illness Allergies: Coded Allergies: Grits (Unverified Allergy, Unknown, 07/06/17) [place] (Unverified Allergy, Unknown, 07/06/17) Medication History Scheduled Amino Acids/Protein Hydrolys (Pro-Stat Liquid), 30 ML ORAL TWICE A DAY, ( Reported) Ascorbic Acid* (Ascorbic Acid*), 500 MG ORAL BID, (Reported) Aspirin* (Aspirin*), 325 MG ORAL DAILY, (Reported) Fluoxetine Hcl* (Prozac*), 20 MG ORAL DAILY, (Reported) Gabapentin* (Gabapentin*), 200 MG ORAL THREE TIMES A DAY, (Reported) Heparin Sod (Porcine) (Heparin Sodium*), 5,000 UNITS SUBQ EVERY 12 HOURS, ( Reported) Lacosamide (Vimpat), 100 MG PO BID, (Reported) Levetiracetam (Keppra), 500 MG ORAL EVERY 12 HOURS, (Reported) Multivitamins* (Multivitamins*), 1 TAB ORAL DAILY, (Reported) Olanzapine* (Zyprexa*), 2.5 MG ORAL QHS, (Reported) Quetiapine Fumarate* (Seroquel*), 200 MG ORAL BID, (Reported) Tramadol Hcl* (Ultram*), 50 MG ORAL QHS, (Reported) Tramadol Hcl* (Ultram*), 50 MG ORAL DAILY, (Reported) Trazodone Hcl* (Desyrel*), 50 MG ORAL BEDTIME, (Reported) Valproic Acid (Valproic Acid), 1,000 MG PO TID, (Reported) Zinc Sulfate (Zinc Sulfate*), 220 MG ORAL DAILY, (Reported) Scheduled PRN Acetaminophen* (Acetaminophen 325MG Tablet*), 650 MG ORAL Q4H PRN for Mild Pain/ Temp > 100.5, (Reported) Acetaminophen* (Tylenol Extra Strength*), 1,000 MG ORAL Q4H PRN for Moderate Pain (Pain Scale 4-6), (Reported) Discontinued Medications Acetaminophen* (Tylenol Extra Strength*), 1,000 MG ORAL Q4HR PRN for For Pain, ( Reported) Discontinued Reason: Therapy completed Acetaminophen* (Acetaminophen 325MG Tablet*), 650 MG ORAL Q4H PRN for Prn Headache/Temp > 101, (Reported) Discontinued Reason: Therapy completed Amlodipine Besylate (Norvasc), 5 MG ORAL DAILY, (Reported) Discontinued Reason: Therapy completed Aspirin* (Aspirin*), 325 MG ORAL DAILY, (Reported) Discontinued Reason: Therapy completed Aspirin* (Aspir 81*), 81 MG ORAL DAILY, (Reported) Discontinued Reason: Prescription changed Bisacodyl (Dulcolax), 10 MG RC for Constipation, (Reported) Discontinued Reason: Therapy completed Docusate Sodium* (Docusate Sodium*), 250 MG ORAL DAILY, (Reported) Discontinued Reason: Therapy completed Fluoxetine Hcl* (Fluoxetine Hcl*), 60 MG ORAL DAILY, (Reported) Discontinued Reason: Therapy completed Hydrocodone Bit/Acetaminophen 5-325* (Calvin 5-325*), 1 TAB ORAL Q6H PRN for Severe Pain (Pain Scale 7-10), (Reported) Discontinued Reason: Therapy completed Lacosamide (Vimpat), 100 MG PO TWICE A DAY, (Reported) Discontinued Reason: Therapy completed Levetiracetam (Keppra), 500 MG ORAL EVERY 12 HOURS, (Reported) Discontinued Reason: Therapy completed Magnesium Hydroxide (Milk of Magnesia), 30 ML ORAL QHS PRN for Constipation, ( Reported) Discontinued Reason: Therapy completed Meropenem (Meropenem), 1 GM IV Q12HR, (Reported) Discontinued Reason: Therapy completed Na Phos,M-B/Na Phos,Di-Ba* (Fleet Enema*), 133 ML RECTAL EVERY OTHER DAY PRN for Constipation, (Reported) Discontinued Reason: Therapy completed Olanzapine* (Zyprexa*), 2.5 MG ORAL BEDTIME, (Reported) Discontinued Reason: Therapy completed Quetiapine Fumarate* (Seroquel*), 200 MG ORAL BID, (Reported) Discontinued Reason: Therapy completed Tramadol Hcl (Tramadol Hcl), 50 MG ORAL DAILY, (Reported) Discontinued Reason: Prescription changed Valproic Acid (Valproic Acid), 1,000 MG PO THREE TIMES A DAY, (Reported) Discontinued Reason: Therapy completed Patient History Healthcare decision maker Resuscitation status Full Code Advanced Directive on File Physical Exam Last 24 Hour Vital Signs Date Time Temp Pulse Resp B/P (MAP) Pulse Ox O2 Delivery O2 Flow Rate FiO2 06/03/19 04:00 97.1 69 18 111/63 (79) 96 06/03/19 04:00 72 06/03/19 00:00 97.0 66 18 109/69 (82) 95 06/03/19 00:00 72 06/02/19 21:00 Room Air 2.0 06/02/19 20:30 95.2 64 18 100/65 (77) 94 06/02/19 20:00 69 06/02/19 16:31 72 06/02/19 15:51 Room Air 06/02/19 14:59 97.1 80 19 112/60 98 Room Air 06/02/19 14:53 97.1 06/02/19 14:36 97.1 80 19 112/60 98 Room Air 06/02/19 13:31 97.1 72 19 96/63 98 Room Air 06/02/19 11:20 97.6 78 19 90/60 97 Room Air 06/02/19 11:13 97.5 85 20 82/63 (69) 97 Room Air Intake and Output 06/02/19 06/03/19 19:00 07:00 Output Total 1200 ml 650 ml Balance -1200 ml -650 ml Output Urine Total 650 ml Drainage Total 1200 ml # Voids 1 Laboratory Tests Test 06/02/19 11:30 06/02/19 23:57 White Blood Count 10.8 K/UL (4.8-10.8) Red Blood Count 2.46 M/UL (4.20-5.40) L Hemoglobin 7.9 G/DL (12.0-16.0) L Hematocrit 22.8 % (37.0-47.0) L Mean Corpuscular Volume 93 FL (80-99) Mean Corpuscular Hemoglobin 32.3 PG (27.0-31.0) H Mean Corpuscular Hemoglobin Concent 34.7 G/DL (32.0-36.0) Red Cell Distribution Width 14.1 % (11.6-14.8) Platelet Count 415 K/UL (150-450) Mean Platelet Volume 5.0 FL (6.5-10.1) L Neutrophils (%) (Auto) % (45.0-75.0) Lymphocytes (%) (Auto) % (20.0-45.0) Monocytes (%) (Auto) % (1.0-10.0) Eosinophils (%) (Auto) % (0.0-3.0) Basophils (%) (Auto) % (0.0-2.0) Differential Total Cells Counted 100 Neutrophils % (Manual) 62 % (45-75) Lymphocytes % (Manual) 25 % (20-45) Monocytes % (Manual) 11 % (1-10) H Eosinophils % (Manual) 2 % (0-3) Basophils % (Manual) 0 % (0-2) Band Neutrophils 0 % (0-8) Platelet Estimate Adequate Platelet Morphology Normal Hypochromasia 3+ Anisocytosis 1+ Prothrombin Time 10.3 SEC (9.30-11.50) Prothromb Time International Ratio 1.0 (0.9-1.1) Activated Partial Thromboplast Time 29 SEC (23-33) Sodium Level 137 MMOL/L (136-145) Potassium Level 3.9 MMOL/L (3.5-5.1) Chloride Level 101 MMOL/L (98-107) Carbon Dioxide Level 20 MMOL/L (21-32) L Anion Gap 16 mmol/L (5-15) H Blood Urea Nitrogen 42 mg/dL (7-18) H Creatinine 2.0 MG/DL (0.55-1.30) H Estimat Glomerular Filtration Rate 25.7 mL/min (>60) Glucose Level 90 MG/DL (74-106) Calcium Level 9.7 MG/DL (8.5-10.1) Total Bilirubin 0.2 MG/DL (0.2-1.0) Aspartate Amino Transf (AST/SGOT) 20 U/L (15-37) Alanine Aminotransferase (ALT/SGPT) 17 U/L (12-78) Alkaline Phosphatase 75 U/L (46-116) Total Protein 8.0 G/DL (6.4-8.2) Albumin 1.9 G/DL (3.4-5.0) L Globulin 6.1 g/dL Albumin/Globulin Ratio 0.3 (1.0-2.7) L Urine Color Pale yellow Urine Appearance Slightly cloudy Urine pH 6 (4.5-8.0) Urine Specific [place] 1.010 (1.005-1.035) Urine Protein 2+ (NEGATIVE) H Urine Glucose (UA) Negative (NEGATIVE) Urine Ketones Negative (NEGATIVE) Urine Blood 4+ (NEGATIVE) H Urine Nitrite Negative (NEGATIVE) Urine Bilirubin Negative (NEGATIVE) Urine Urobilinogen Normal MG/DL (0.0-1.0) Urine Leukocyte Esterase 2+ (NEGATIVE) H Urine RBC 5-10 /HPF (0 - 2) H Urine WBC 10-15 /HPF (0 - 2) H Urine Squamous Epithelial Cells Few /LPF (NONE/OCC) Urine Bacteria Few /HPF (NONE) Urine Yeast Many /HPF (NONE) H Height (Feet): 5 Height (Inches): 4.00 Weight (Pounds): 146 Medications Current Medications Medications (Trade) Dose Ordered Sig/William Route PRN Reason Start Time Stop Time Status Last Admin Dose Admin Acetaminophen/ Hydrocodone Bitart (Calvin 5/325) 1 tab Q6H PRN ORAL pain 06/02/19 19:00 06/09/19 18:59 06/02/19 20:57 Aspirin (Ecotrin) 81 mg DAILY ORAL 06/03/19 09:00 07/03/19 08:59 Dextrose/Sodium Chloride 1,000 ml @ 50 mls/hr Q20H IV 06/02/19 14:45 07/02/19 14:44 06/02/19 16:40 Docusate Sodium (Colace) 100 mg TID ORAL 06/02/19 18:00 07/02/19 17:59 06/02/19 18:43 Gabapentin (Neurontin) 200 mg THREE TIMES A DAY ORAL 06/02/19 18:00 07/02/19 17:59 06/02/19 18:43 Levetiracetam (Keppra) 500 mg EVERY 12 HOURS ORAL 06/02/19 21:00 07/02/19 20:59 06/02/19 20:57 Pantoprazole (Protonix) 40 mg EVERY 12 HOURS ORAL 06/02/19 21:00 07/02/19 20:59 06/02/19 20:56 Trazodone HCl (Desyrel) 50 mg BEDTIME ORAL 06/02/19 21:00 07/02/19 20:59 06/02/19 20:57 Assessment/Plan Assessment/Plan: Hematology Consultation Reason for Hospitalization: AMS, dizziness Referring physician: JORGE LUIS MAGDALENO Reason for Consultation: Chronic anemia Date patient seen: 06/03/2019 ID [id number] old female well known to me at this time presents with complaints of ongoing ams, altered, currently altered, labs were noted, more anemic than before, prior admissions were reviewed as well as recs of consultants, imaging noted, meds reviewed and exam. I have seen her before as well, with anemia, at this time she was at her snf and was hypoxemic, intubated in the er, by er md. She was here back in 04/2019 and required intubation and admitted to the icu at that time. Home Medications noted Med list reviewed/reconciled: Yes Allergies: Grits (Unverified Allergy, Unknown, 07/06/17) [place] (Unverified Allergy, Unknown, 07/06/17) Patient History History Provided By: Patient, Medical Record PMH Narrative Past Medical History: see triage record Pertinent Family History: none Reviewed Nursing Documentation: PMH: Agreed; PSxH: Agreed Nursing Documentation-PMH Hx Hypertension: Yes - edema, osteomyelitis, HTN Hx Cancer: No Hx Gastrointestinal Problems: No Hx Seizures: Yes Social History: Denies: smoking, alcohol use, drug use, other ROS All Other Systems: negative except mentioned in HPI PE Vital Signs Gen: unresponsive Pulm: on nc+ CV: RRR, no mgr Abd: soft, nt, d Ext: no cce, s/p bka lle Labs: noted Imaging: reviewed Assessment/Plan: # Anemia of chronic disease (or of iron deficiency) due to underlying chronic medical issues, multifactorial --> Anemia workup has been ordered, rule out gi bleed --> No evidence of hemolysis is noted, peripheral smear has been reviewed. --> Hgb goal >7. Transfuse prn. --> Epogen or iron at this time is not particularly indicated --> Medications have been reviewed --> low threshold for gi evaluation in case has occult + --> hgb trend 6.8-->7.9 # Leukocytosis is likely related to infection, reactive process, v infection v intubation, in past had esbl uti --> have reviewed peripheral smear and bandemia/neutrophilia noted --> continue antibiotics if they have been started by ID team --> monitor for resolution --> trend as needed wbc 10.8 # Left kidney mass -- 5 cm low-attenuation lesion demonstrating slightly higher than normal fluid attenuation coming off of the upper pole left kidney --> likely represents a complex possibly proteinaceous cyst, but necrotic solid mass also possible --> as per uro, appears stable # Elevated cea --> outpatient gi workup recommended # Dehydration --> ivf have been started --> anti-nausea meds started # S/P BKA (below knee amputation) unilateral --> left leg s/p amputation # Anxiety --> as per psych # Left hydronephrosis --> per uro # Resp failure hx and requiring intubation 04/2019 --> now extubated # Dvt ppx heparin sq The timing of this note does not necessarily reflect the time of the patient was seen. Greatly appreciate consultation. Colby Canada MD Jun 03, 2019 06:00
[2019-06-03 06:46] LABS: BASOPHILS % (AUTO) 1.1 % (0.0-2.0); HEMATOCRIT 25.7 % (37.0-47.0); HEMOGLOBIN 8.8 G/DL (12.0-16.0); MEAN CORPUSCULAR VOLUME 92 FL (80-99); MONOCYTES % (AUTO) 12.3 % (1.0-10.0); NEUTROPHILS % (AUTO) 63.5 % (45.0-75.0); PLATELET COUNT 339 K/UL (150-450); RED BLOOD COUNT 2.78 M/UL (4.20-5.40); RED CELL DISTRIBUTION WIDTH 13.6 % (11.6-14.8); WHITE BLOOD COUNT 11.4 K/UL (4.8-10.8)
[2019-06-03] MEDS: HYDROcodone/Acetamin 5/325 tab ORAL PRN ×2 (06:56→13:07)
[2019-06-03 07:40] LABS: ALANINE AMINOTRANSFERASE 13 U/L (12-78); ALBUMIN 1.7 G/DL (3.4-5.0); ALBUMIN/GLOBULIN RATIO 0.3 (1.0-2.7); ALKALINE PHOSPHATASE 77 U/L (46-116); ANION GAP 15 mmol/L (5-15); ASPARTATE AMINO TRANSFERASE 11 U/L (15-37); BILIRUBIN,TOTAL 0.2 MG/DL (0.2-1.0); BLOOD UREA NITROGEN 39 mg/dL (7-18); CALCIUM 9.8 MG/DL (8.5-10.1); CARBON DIOXIDE 18 MMOL/L (21-32); CHLORIDE 105 MMOL/L (98-107); CHOLESTEROL 162 MG/DL (< 200); CREATININE 1.8 MG/DL (0.55-1.30); FERRITIN 567 NG/ML (8-388); HDL CHOLESTEROL 29 MG/DL (40-60); PHOSPHORUS 4.7 MG/DL (2.5-4.9); POTASSIUM 4.1 MMOL/L (3.5-5.1); SODIUM 137 MMOL/L (136-145); TRIGLYCERIDES 222 MG/DL (30-150)
[2019-06-03 07:56] LABS: % IRON SATURATION 48 % (15-50); IRON 71 ug/dL (50-175); TOTAL IRON BINDING CAPACITY 147 ug/dL (250-450)
[2019-06-03 07:57] VITALS: BP 142/80
[2019-06-03] MEDS: Docusate 100mg cap ORAL SCH ×3 (09:10→17:18)
[2019-06-03] MEDS: Aspirin EC 81mg tab ORAL SCH (09:10)
[2019-06-03] MEDS: D5NS 1,000 ML IV SCH ×2 (10:45→13:08)
[2019-06-03 11:58] VITALS: BP 110/62
--- NOTE | 2019-06-03 12:12 | Nephrology Progress Note ---
Assessment/Plan Problem List: (1) Renal failure (ARF), acute on chronic Assessment: Serum creatinine improving (2) Hydronephrosis Assessment: Bilateral (3) Dehydration (4) Acute on chronic anemia Assessment Acute on chronic renal failure. Serum creatinine lower Superimposed dehydration. Bilateral nephrostomies. Symptomatic anemia. Previous respiratory failure requiring mechanical intubation and ventilation. History of urinary tract infection. Seizure disorders. Schizophrenia Hypertension however presents with low blood pressure. Mild obesity with BMI of 30.3. Plan IV magnesium supplement Folic acid p.o. Transfusion yesterday executed Slow hydrate Monitor renal parameters Avoid nephrotoxic's Continue per consultants Subjective ROS Limited/Unobtainable: No Constitutional: Reports: malaise Objective Objective Last 24 Hour Vital Signs Date Time Temp Pulse Resp B/P (MAP) Pulse Ox O2 Delivery O2 Flow Rate FiO2 06/03/19 11:58 97.8 64 20 110/62 (78) 96 06/03/19 09:00 Room Air 06/03/19 07:57 98.2 87 18 142/80 (100) 94 06/03/19 07:42 82 06/03/19 04:00 97.1 69 18 111/63 (79) 96 06/03/19 04:00 72 06/03/19 00:00 97.0 66 18 109/69 (82) 95 06/03/19 00:00 72 06/02/19 21:00 Room Air 2.0 06/02/19 20:30 95.2 64 18 100/65 (77) 94 06/02/19 20:00 69 06/02/19 16:31 72 06/02/19 15:51 Room Air 06/02/19 14:59 97.1 80 19 112/60 98 Room Air 06/02/19 14:53 97.1 06/02/19 14:36 97.1 80 19 112/60 98 Room Air 06/02/19 13:31 97.1 72 19 96/63 98 Room Air Intake and Output 06/02/19 06/03/19 19:00 07:00 Output Total 1200 ml 1150 ml Balance -1200 ml -1150 ml Output Urine Total 1150 ml Drainage Total 1200 ml # Voids 1 Laboratory Tests 06/02/19 23:57: Urine Color Pale yellow, Urine Appearance Slightly cloudy, Urine pH 6, Urine Specific [place] 1.010, Urine Protein 2+H, Urine Glucose (UA) Negative, Urine Ketones Negative, Urine Blood 4+H, Urine Nitrite Negative, Urine Bilirubin Negative, Urine Urobilinogen Normal, Urine Leukocyte Esterase 2+H, Urine RBC 5- 10H, Urine WBC 10-15H, Urine Squamous Epithelial Cells Few, Urine Bacteria Few, Urine Yeast ManyH 06/03/19 05:30: White Blood Count 11.4H, Red Blood Count 2.78L, Hemoglobin 8.8L, Hematocrit 25.7L, Mean Corpuscular Volume 92, Mean Corpuscular Hemoglobin 31.7H, Mean Corpuscular Hemoglobin Concent 34.3, Red Cell Distribution Width 13.6, Platelet Count 339, Mean Platelet Volume 5.0L, Neutrophils (%) (Auto) 63.5, Lymphocytes ( %) (Auto) 21.0, Monocytes (%) (Auto) 12.3H, Eosinophils (%) (Auto) 2.0, Basophils (%) (Auto) 1.1, Erythrocyte Sedimentation Rate 123H, Sodium Level 137 , Potassium Level 4.1, Chloride Level 105, Carbon Dioxide Level 18L, Anion Gap 15, Blood Urea Nitrogen 39H, Creatinine 1.8H, Estimat Glomerular Filtration Rate 29.0, Glucose Level 94, Hemoglobin A1c 5.3, Uric Acid 6.6, Calcium Level 9.8, Phosphorus Level 4.7, Magnesium Level 1.4L, Iron Level 71, Total Iron Binding Capacity 147L, Percent Iron Saturation 48, Unsaturated Iron Binding 76L , Ferritin 567H, Total Bilirubin 0.2, Aspartate Amino Transf (AST/SGOT) 11L, Alanine Aminotransferase (ALT/SGPT) 13, Alkaline Phosphatase 77, Troponin I 0.000, C-Reactive Protein, Quantitative 14.0H, Pro-B-Type Natriuretic Peptide 452H, Total Protein 7.6, Albumin 1.7L, Globulin 5.9, Albumin/Globulin Ratio 0.3L , Triglycerides Level 222H, Cholesterol Level 162, LDL Cholesterol 88, HDL Cholesterol 29L, Cholesterol/HDL Ratio 5.6H, Vitamin B12 Level 588, Folate 5.4L , Thyroid Stimulating Hormone (TSH) 1.463 Height (Feet): 5 Height (Inches): 4.00 Weight (Pounds): 146 General Appearance: no apparent distress Cardiovascular: normal rate Respiratory/Chest: decreased breath sounds Abdomen: soft Fouladian,Derrell MD Jun 03, 2019 12:12
--- NOTE | 2019-06-03 13:50 | Consultation ---
History of Present Illness General Date patient seen: Jun 03, 2019 Reason for Hospitalization: Abnormal Labs Present Illness HPI This is a very pleasant 58-year-old female known to me from prior admission who presents with abnormal labs for further work-up and management. Patient with leukocytosis elevated ESR and CRP. Patient with complicated medical history including nephrostomy tubes and prior decubitus ulcers. She has malnutrition and has overall declined somewhat since prior admission. She is currently awake alert and somewhat responsive. No nausea vomiting fever chills no current complaints. Has had a prior amputation in the past. Allergies: Coded Allergies: Grits (Unverified Allergy, Unknown, 07/06/17) [place] (Unverified Allergy, Unknown, 07/06/17) Medication History Scheduled Amino Acids/Protein Hydrolys (Pro-Stat Liquid), 30 ML ORAL TWICE A DAY, ( Reported) Ascorbic Acid* (Ascorbic Acid*), 500 MG ORAL BID, (Reported) Aspirin* (Aspirin*), 325 MG ORAL DAILY, (Reported) Fluoxetine Hcl* (Prozac*), 20 MG ORAL DAILY, (Reported) Gabapentin* (Gabapentin*), 200 MG ORAL THREE TIMES A DAY, (Reported) Heparin Sod (Porcine) (Heparin Sodium*), 5,000 UNITS SUBQ EVERY 12 HOURS, ( Reported) Lacosamide (Vimpat), 100 MG PO BID, (Reported) Levetiracetam (Keppra), 500 MG ORAL EVERY 12 HOURS, (Reported) Multivitamins* (Multivitamins*), 1 TAB ORAL DAILY, (Reported) Olanzapine* (Zyprexa*), 2.5 MG ORAL QHS, (Reported) Quetiapine Fumarate* (Seroquel*), 200 MG ORAL BID, (Reported) Tramadol Hcl* (Ultram*), 50 MG ORAL QHS, (Reported) Tramadol Hcl* (Ultram*), 50 MG ORAL DAILY, (Reported) Trazodone Hcl* (Desyrel*), 50 MG ORAL BEDTIME, (Reported) Valproic Acid (Valproic Acid), 1,000 MG PO TID, (Reported) Zinc Sulfate (Zinc Sulfate*), 220 MG ORAL DAILY, (Reported) Scheduled PRN Acetaminophen* (Acetaminophen 325MG Tablet*), 650 MG ORAL Q4H PRN for Mild Pain/ Temp > 100.5, (Reported) Acetaminophen* (Tylenol Extra Strength*), 1,000 MG ORAL Q4H PRN for Moderate Pain (Pain Scale 4-6), (Reported) Discontinued Medications Acetaminophen* (Tylenol Extra Strength*), 1,000 MG ORAL Q4HR PRN for For Pain, ( Reported) Discontinued Reason: Therapy completed Acetaminophen* (Acetaminophen 325MG Tablet*), 650 MG ORAL Q4H PRN for Prn Headache/Temp > 101, (Reported) Discontinued Reason: Therapy completed Amlodipine Besylate (Norvasc), 5 MG ORAL DAILY, (Reported) Discontinued Reason: Therapy completed Aspirin* (Aspirin*), 325 MG ORAL DAILY, (Reported) Discontinued Reason: Therapy completed Aspirin* (Aspir 81*), 81 MG ORAL DAILY, (Reported) Discontinued Reason: Prescription changed Bisacodyl (Dulcolax), 10 MG RC for Constipation, (Reported) Discontinued Reason: Therapy completed Docusate Sodium* (Docusate Sodium*), 250 MG ORAL DAILY, (Reported) Discontinued Reason: Therapy completed Fluoxetine Hcl* (Fluoxetine Hcl*), 60 MG ORAL DAILY, (Reported) Discontinued Reason: Therapy completed Hydrocodone Bit/Acetaminophen 5-325* ([place]prise 5-325*), 1 TAB ORAL Q6H PRN for Severe Pain (Pain Scale 7-10), (Reported) Discontinued Reason: Therapy completed Lacosamide (Vimpat), 100 MG PO TWICE A DAY, (Reported) Discontinued Reason: Therapy completed Levetiracetam (Keppra), 500 MG ORAL EVERY 12 HOURS, (Reported) Discontinued Reason: Therapy completed Magnesium Hydroxide (Milk of Magnesia), 30 ML ORAL QHS PRN for Constipation, ( Reported) Discontinued Reason: Therapy completed Meropenem (Meropenem), 1 GM IV Q12HR, (Reported) Discontinued Reason: Therapy completed Na Phos,M-B/Na Phos,Di-Ba* (Fleet Enema*), 133 ML RECTAL EVERY OTHER DAY PRN for Constipation, (Reported) Discontinued Reason: Therapy completed Olanzapine* (Zyprexa*), 2.5 MG ORAL BEDTIME, (Reported) Discontinued Reason: Therapy completed Quetiapine Fumarate* (Seroquel*), 200 MG ORAL BID, (Reported) Discontinued Reason: Therapy completed Tramadol Hcl (Tramadol Hcl), 50 MG ORAL DAILY, (Reported) Discontinued Reason: Prescription changed Valproic Acid (Valproic Acid), 1,000 MG PO THREE TIMES A DAY, (Reported) Discontinued Reason: Therapy completed Patient History Limited by: medical condition History Provided By: Patient, Medical Record, PMD Healthcare decision maker Resuscitation status Full Code Advanced Directive on File Past Medical/Surgical History Past Medical/Surgical History: (1) Leukocytosis (2) Emesis (3) Anxiety (4) Cellulitis (5) Respiratory distress (6) Edema (7) Delusional disorder (8) Schizophrenia (9) Seizure disorder (10) Hypoalbuminemia (11) Abdominal pain (12) HTN (hypertension) (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 (14) Abnormal laboratory test result (15) Complicated UTI (urinary tract infection) (16) Stage 4 skin ulcer of sacral region (17) Generalized weakness (18) Acute on chronic anemia (19) Anemia (20) Dehydration (21) Hydronephrosis (22) Renal failure (ARF), acute on chronic (23) WOUND STAGE 3 Review of Systems Review of Symptoms General ROS: no weight loss or fever Psychological ROS: no depression or mood changes, no memory loss Ophthalmic ROS: no visual changes or eye irritation ENT ROS: no nasal congestion, hearing loss, dizziness Allergy and Immunology ROS: no allergic symptoms or urticaria Hematological and Lymphatic ROS: no swollen glands, unusual bleeding or bruising Endocrine ROS: no polyuria, polydipsia, weight changes, temperature intolerance Respiratory ROS: no cough, shortness of breath, or wheezing Cardiovascular ROS: no chest pain or dyspnea on exertion Gastrointestinal ROS: denies abdominal pain, bright red blood in stool. Musculoskeletal ROS: no myalgias or arthralgias Neurological ROS: no TIA or stroke symptoms Dermatological ROS: no new or changing skin lesions, rashes or pruritis Physical Exam Physical Exam General appearance: alert, cooperative, no distress, appears stated age Head: Normocephalic, without obvious abnormality, atraumatic Eyes: conjunctivae/corneas clear. PERRL, EOM's intact. Fundi benign Throat: Lips, mucosa, and tongue normal. Teeth and gums normal Neck: supple, symmetrical, trachea midline, no adenopathy, thyroid: not enlarged, symmetric, no tenderness/mass/nodules, no carotid bruit and no JVD Lungs: clear to auscultation bilaterally Heart: regular rate and rhythm, S1, S2 normal, no murmur, click, rub or gallop Abdomen: soft, non-tender. Bowel sounds normal. No masses, no organomegaly Extremities: extremities bka Pulses: 2+ and symmetric Skin: Skin color, texture, turgor normal. No rashes or lesions Neurologic: Grossly normal Last 24 Hour Vital Signs Date Time Temp Pulse Resp B/P (MAP) Pulse Ox O2 Delivery O2 Flow Rate FiO2 06/03/19 12:03 78 06/03/19 11:58 97.8 64 20 110/62 (78) 96 06/03/19 09:00 Room Air 06/03/19 07:57 98.2 87 18 142/80 (100) 94 06/03/19 07:42 82 06/03/19 04:00 97.1 69 18 111/63 (79) 96 06/03/19 04:00 72 06/03/19 00:00 97.0 66 18 109/69 (82) 95 06/03/19 00:00 72 06/02/19 21:00 Room Air 2.0 06/02/19 20:30 95.2 64 18 100/65 (77) 94 06/02/19 20:00 69 06/02/19 16:31 72 06/02/19 15:51 Room Air 06/02/19 14:59 97.1 80 19 112/60 98 Room Air 06/02/19 14:53 97.1 06/02/19 14:36 97.1 80 19 112/60 98 Room Air Intake and Output 06/02/19 06/03/19 19:00 07:00 Output Total 1200 ml 1150 ml Balance -1200 ml -1150 ml Output Urine Total 1150 ml Drainage Total 1200 ml # Voids 1 Laboratory Tests Test 06/02/19 23:57 06/03/19 05:30 Urine Color Pale yellow Urine Appearance Slightly cloudy Urine pH 6 (4.5-8.0) Urine Specific [place] 1.010 (1.005-1.035) Urine Protein 2+ (NEGATIVE) H Urine Glucose (UA) Negative (NEGATIVE) Urine Ketones Negative (NEGATIVE) Urine Blood 4+ (NEGATIVE) H Urine Nitrite Negative (NEGATIVE) Urine Bilirubin Negative (NEGATIVE) Urine Urobilinogen Normal MG/DL (0.0-1.0) Urine Leukocyte Esterase 2+ (NEGATIVE) H Urine RBC 5-10 /HPF (0 - 2) H Urine WBC 10-15 /HPF (0 - 2) H Urine Squamous Epithelial Cells Few /LPF (NONE/OCC) Urine Bacteria Few /HPF (NONE) Urine Yeast Many /HPF (NONE) H White Blood Count 11.4 K/UL (4.8-10.8) H Red Blood Count 2.78 M/UL (4.20-5.40) L Hemoglobin 8.8 G/DL (12.0-16.0) L Hematocrit 25.7 % (37.0-47.0) L Mean Corpuscular Volume 92 FL (80-99) Mean Corpuscular Hemoglobin 31.7 PG (27.0-31.0) H Mean Corpuscular Hemoglobin Concent 34.3 G/DL (32.0-36.0) Red Cell Distribution Width 13.6 % (11.6-14.8) Platelet Count 339 K/UL (150-450) Mean Platelet Volume 5.0 FL (6.5-10.1) L Neutrophils (%) (Auto) 63.5 % (45.0-75.0) Lymphocytes (%) (Auto) 21.0 % (20.0-45.0) Monocytes (%) (Auto) 12.3 % (1.0-10.0) H Eosinophils (%) (Auto) 2.0 % (0.0-3.0) Basophils (%) (Auto) 1.1 % (0.0-2.0) Erythrocyte Sedimentation Rate 123 MM/HR (0-30) H Sodium Level 137 MMOL/L (136-145) Potassium Level 4.1 MMOL/L (3.5-5.1) Chloride Level 105 MMOL/L (98-107) Carbon Dioxide Level 18 MMOL/L (21-32) L Anion Gap 15 mmol/L (5-15) Blood Urea Nitrogen 39 mg/dL (7-18) H Creatinine 1.8 MG/DL (0.55-1.30) H Estimat Glomerular Filtration Rate 29.0 mL/min (>60) Glucose Level 94 MG/DL (74-106) Hemoglobin A1c 5.3 % (4.3-6.0) Uric Acid 6.6 MG/DL (2.6-7.2) Calcium Level 9.8 MG/DL (8.5-10.1) Phosphorus Level 4.7 MG/DL (2.5-4.9) Magnesium Level 1.4 MG/DL (1.8-2.4) L Iron Level 71 ug/dL (50-175) Total Iron Binding Capacity 147 ug/dL (250-450) L Percent Iron Saturation 48 % (15-50) Unsaturated Iron Binding 76 ug/dL (112-346) L Ferritin 567 NG/ML (8-388) H Total Bilirubin 0.2 MG/DL (0.2-1.0) Aspartate Amino Transf (AST/SGOT) 11 U/L (15-37) L Alanine Aminotransferase (ALT/SGPT) 13 U/L (12-78) Alkaline Phosphatase 77 U/L (46-116) Troponin I 0.000 ng/mL (0.000-0.056) C-Reactive Protein, Quantitative 14.0 mg/dL (0.00-0.90) H Pro-B-Type Natriuretic Peptide 452 pg/mL (0-125) H Total Protein 7.6 G/DL (6.4-8.2) Albumin 1.7 G/DL (3.4-5.0) L Globulin 5.9 g/dL Albumin/Globulin Ratio 0.3 (1.0-2.7) L Triglycerides Level 222 MG/DL (30-150) H Cholesterol Level 162 MG/DL (< 200) LDL Cholesterol 88 mg/dL (<100) HDL Cholesterol 29 MG/DL (40-60) L Cholesterol/HDL Ratio 5.6 (3.3-4.4) H Carcinoembryonic Antigen Pending Vitamin B12 Level 588 PG/ML (193-986) Folate 5.4 NG/ML (8.6-58.9) L Thyroid Stimulating Hormone (TSH) 1.463 uiU/mL (0.358-3.740) Height (Feet): 5 Height (Inches): 4.00 Weight (Pounds): 146 Medications Current Medications Medications (Trade) Dose Ordered Sig/William Route PRN Reason Start Time Stop Time Status Last Admin Dose Admin Acetaminophen/ Hydrocodone Bitart ([place]prise 5/325) 1 tab Q6H PRN ORAL pain 06/02/19 19:00 06/09/19 18:59 06/03/19 13:07 Aspirin (Ecotrin) 81 mg DAILY ORAL 06/03/19 09:00 07/03/19 08:59 06/03/19 09:10 Dextrose/Sodium Chloride 1,000 ml @ 50 mls/hr Q20H IV 06/02/19 14:45 07/02/19 14:44 06/03/19 13:08 Docusate Sodium (Colace) 100 mg TID ORAL 06/02/19 18:00 07/02/19 17:59 06/03/19 12:28 Folic Acid (Folate) 2 mg DAILY ORAL 06/03/19 12:15 07/03/19 12:14 06/03/19 12:28 Gabapentin (Neurontin) 200 mg THREE TIMES A DAY ORAL 06/02/19 18:00 07/02/19 17:59 06/03/19 12:28 Heparin Sodium (Porcine) (Heparin 5000 units/ml) 5,000 units EVERY 8 HOURS SUBQ 06/03/19 06:00 07/03/19 05:59 Levetiracetam (Keppra) 500 mg EVERY 12 HOURS ORAL 06/02/19 21:00 07/02/19 20:59 06/03/19 09:10 Magnesium Sulfate 100 ml @ 100 mls/hr Q1H IVPB 06/03/19 12:15 06/03/19 16:14 06/03/19 12:28 Pantoprazole (Protonix) 40 mg EVERY 12 HOURS ORAL 06/02/19 21:00 07/02/19 20:59 06/03/19 09:10 Trazodone HCl (Desyrel) 50 mg BEDTIME ORAL 06/02/19 21:00 07/02/19 20:59 06/02/19 20:57 Assessment/Plan Problem List: (1) Malnutrition ICD Codes: E46 - Unspecified protein-calorie malnutrition SNOMED: 55895630 (2) Sacral decubitus ulcer Assessment & Plan: Pt presented on admission with full thickness sacral pressure injury.Base of wound is moist pink with Biofilm. Borders are macerated. Periwound pink without evidence of further skin breakdown.Small amt non-odorous serous exudate noted. (L)4.5cm x (W)1.5cm x(D)0.8cm. Resolving macular red rash L buttocks/L flank area. Pt denied burning or itching. L BKA stump without evidence of skin breakdown. R heel is soft but pink and easily blanchable. No other skin concerns noted. Tx.Plan: Cleanse Sacral wound with Saline. Apply TheraHoney. Apply Moisture Barrier Paste periwound. Cover with Optifoam drsg. Change Daily and prn. Apply Moisture Barrier Paste to L buttocks/L flank rash with each incontinence care. Apply Cavilon Skin Barrier to R heel. Cover with Optifoam drsg. Change every 7 days and prn. Reposition at least every 2hours or as tolerated. Off-load R heel with pillow. ICD Codes: L89.159 - Pressure ulcer of sacral region, unspecified stage SNOMED: 503964931 (3) Generalized weakness ICD Codes: R53.1 - Weakness SNOMED: 12759258, 1594275 (4) Acute on chronic anemia ICD Codes: D64.9 - Anemia, unspecified SNOMED: 916087090, 1247644 (5) Dehydration ICD Codes: E86.0 - Dehydration SNOMED: 30540411 (6) Hydronephrosis ICD Codes: N13.30 - Unspecified hydronephrosis SNOMED: 31972484 (7) Renal failure (ARF), acute on chronic ICD Codes: N17.9 - Acute kidney failure, unspecified; N18.9 - Chronic kidney disease, unspecified SNOMED: 277282385 (8) Emesis ICD Codes: R11.10 - Vomiting, unspecified SNOMED: 497347979 (9) Anemia ICD Codes: D64.9 - Anemia, unspecified SNOMED: 621469848 (10) Anxiety ICD Codes: F41.9 - Anxiety disorder, unspecified SNOMED: 80589574 (11) Cellulitis ICD Codes: L03.90 - Cellulitis, unspecified SNOMED: 509581398 (12) Respiratory distress ICD Codes: R06.03 - Acute respiratory distress SNOMED: 495634761 (13) Edema ICD Codes: R60.9 - Edema, unspecified SNOMED: 446489887, 464907199 (14) Leukocytosis ICD Codes: D72.829 - Elevated white blood cell count, unspecified SNOMED: 753443944, 635612827 (15) Delusional disorder ICD Codes: F22 - Delusional disorders SNOMED: 37731083 (16) Schizophrenia ICD Codes: F20.9 - Schizophrenia, unspecified SNOMED: 29374264 (17) Seizure disorder ICD Codes: G40.909 - Epilepsy, unspecified, not intractable, without status epilepticus SNOMED: 532613410 (18) Hypoalbuminemia ICD Codes: E88.09 - Other disorders of plasma-protein metabolism, not elsewhere classified SNOMED: 830389408 (19) Abdominal pain ICD Codes: R10.9 - Unspecified abdominal pain SNOMED: 05072765 (20) HTN (hypertension) ICD Codes: I10 - Essential (primary) hypertension SNOMED: 07612663 (21) Osteomyelitis of ankle ICD Codes: M86.9 - Osteomyelitis, unspecified SNOMED: 726553078 (22) Abnormal laboratory test result ICD Codes: R89.9 - Unspecified abnormal finding in specimens from other organs , systems and tissues SNOMED: 879329954 (23) Complicated UTI (urinary tract infection) ICD Codes: N39.0 - Urinary tract infection, site not specified SNOMED: 99838517 (24) Stage 4 skin ulcer of sacral region ICD Codes: L98.429 - Non-pressure chronic ulcer of back with unspecified severity SNOMED: 78372823, 879609949 (25) WOUND STAGE 3 Star Molina Jun 03, 2019 13:50
[2019-06-03 16:00] VITALS: BP 119/78
[2019-06-03] MEDS ORDERED: ACETAMINOPHEN325 M1 ORAL (18:23)
[2019-06-03] MEDS ORDERED: TRAMADOL HCL50 MG ORAL ×2 (18:23)
[2019-06-03] MEDS ORDERED: ASPIRIN325 MG ORAL (18:23)
[2019-06-03] MEDS ORDERED: ACETAMINOPHEN500 MG ORAL (18:23)
[2019-06-03] MEDS ORDERED: QUETIAPINE FUM200 MG ORAL (18:23)
[2019-06-03] MEDS ORDERED: PRO-STAT LIQUID30 ML ORAL (18:23)
[2019-06-03] MEDS ORDERED: ZYPREXA2.5 MG ORAL (18:23)
[2019-06-03] MEDS ORDERED: VALPROIC ACID250 MG PO (18:23)
[2019-06-03] MEDS ORDERED: ZINC SULFATE220 M1 ORAL (18:23)
[2019-06-03] MEDS ORDERED: PROZAC20 MG ORAL (18:23)
--- NOTE | 2019-06-03 18:30 | History and Physical Report ---
DATE OF ADMISSION: 06/02/2019 HISTORY OF PRESENT ILLNESS: The patient comes in and admitted for severe symptomatic anemia. The patient complains of weakness and also blood pressure was on the low side. The patient denies nausea, vomiting, or diarrhea. Denies fever or chills. Denies shortness of breath. Denies cough. The patient is admitted to get a transfusion. PAST MEDICAL HISTORY: Significant for seizure disorder, hypoalbuminemia, hypertension, osteomyelitis of the ankle, history of UTIs, history of skin decubitus, history of neuropathy, constipation, history of seizure disorder, and history of urinary retention. PAST SURGICAL HISTORY: Bilateral nephrostomy tube present, appendectomy, , and multiple back surgeries. FAMILY HISTORY: Noncontributory. SOCIAL HISTORY: Does smoke. Does have history of drug abuse. No history of alcohol abuse. She lives in a [facility]. ALLERGIES: To hominy and grits. MEDICATIONS: Vitamin C, aspirin, gabapentin, Keppra, multivitamin, trazodone. REVIEW OF SYSTEMS: HEENT: Denies headaches. RESPIRATORY: Denies shortness of breath. Denies cough. CARDIOVASCULAR: Denies chest pain. GASTROINTESTINAL: Denies nausea, vomiting, or diarrhea. EXTREMITIES: The pain is under control. CENTRAL NERVOUS SYSTEM: Denies change in speech pattern. Feels weak. PHYSICAL EXAMINATION: VITAL SIGNS: Temperature is 95.2, pulse is 64, and blood pressure is 100/65. HEENT: PERRLA. NECK: Supple. No lymphadenopathy. CHEST: Clear to auscultation. CARDIOVASCULAR: Regular rate and rhythm. No murmurs or extra sounds. GASTROINTESTINAL: Soft, nontender. No organomegaly. GENITOURINARY: Bilateral nephrostomy tubes. EXTREMITIES: No edema. Reflexes on both sides. Dorsalis pedis pulses are present. NEUROLOGIC: Oriented x2. LABORATORY DATA: WBC of 10.8, hemoglobin of 7.9, and platelet of 415,000. Sodium 137, potassium 3.9, BUN of 42, and creatinine of 2.0. ASSESSMENT AND PLAN: 1. Symptomatic anemia. She will get transfusion. Dr. Canada has been consulted. 2. Bilateral nephrostomy tube, azotemia, and chronic renal insufficiency. I have consulted Dr. Daley and Dr. Hatch. We will if the nephrostomy tube needs to be exchanged or removed. We will monitor the patient closely. Isela Rubio M.D. DR: YAZMIN JOB#: [id number] CC:
[2019-06-03 20:00] VITALS: BP 107/68
[2019-06-03] MEDS: TraZODone 50mg tab ORAL SCH (20:51)
[2019-06-04] VITALS: BP 109/70
[2019-06-04] MEDS: HYDROcodone/Acetamin 5/325 tab ORAL PRN ×2 (02:01→08:27)
[2019-06-04 04:00] VITALS: BP 105/63
[2019-06-04] MEDS: Heparin 5000 units/ml inj SUBQ SCH ×2 (06:00→13:35)
[2019-06-04 08:00] VITALS: BP 118/73
[2019-06-04] MEDS: Aspirin EC 81mg tab ORAL SCH (08:26)
[2019-06-04] MEDS: Docusate 100mg cap ORAL SCH ×2 (08:26→13:34)
[2019-06-04 12:00] VITALS: BP 101/65
--- NOTE | 2019-06-04 12:15 | Nephrology Progress Note ---
Assessment/Plan Problem List: (1) Renal failure (ARF), acute on chronic Assessment: Serum creatinine improving (2) Hydronephrosis Assessment: Bilateral (3) Dehydration (4) Acute on chronic anemia (5) Elevated CEA Assessment Acute on chronic renal failure. Serum creatinine lower Superimposed dehydration. Bilateral nephrostomies. Symptomatic anemia. Previous respiratory failure requiring mechanical intubation and ventilation. History of urinary tract infection. Seizure disorders. Schizophrenia Hypertension however presents with low blood pressure. Mild obesity with BMI of 30.3. Plan no labs today- previously: IV magnesium supplement Folic acid p.o. Transfusion 06/02/19executed Slow hydrate Monitor renal parameters Avoid nephrotoxic's Continue per consultants Subjective ROS Limited/Unobtainable: No Constitutional: Reports: malaise Objective Objective Last 24 Hour Vital Signs Date Time Temp Pulse Resp B/P (MAP) Pulse Ox O2 Delivery O2 Flow Rate FiO2 06/04/19 09:00 Room Air 06/04/19 08:00 75 06/04/19 08:00 97.0 82 18 118/73 (88) 96 06/04/19 04:00 76 06/04/19 04:00 97.9 68 19 105/63 (77) 96 06/04/19 00:00 72 06/04/19 00:00 97.6 74 19 109/70 (83) 96 06/03/19 21:00 Room Air 06/03/19 20:00 70 06/03/19 20:00 97.8 70 18 107/68 (81) 95 06/03/19 16:00 97.8 76 18 119/78 (92) 96 06/03/19 15:59 91 Intake and Output 06/03/19 06/04/19 19:00 07:00 Intake Total 950 ml 140 ml Output Total 2600 ml Balance 950 ml -2460 ml Intake Oral 140 ml IV Total 950 ml Output Urine Total 2600 ml Stool Total 0 ml # Voids 3 Height (Feet): 5 Height (Inches): 4.00 Weight (Pounds): 146 General Appearance: no apparent distress Cardiovascular: normal rate Respiratory/Chest: lungs clear Abdomen: soft Objective no change Derrell Hatch MD Jun 04, 2019 12:15
--- NOTE | 2019-06-04 14:10 | General Progress Note ---
Assessment/Plan Problem List: (1) Anemia ICD Codes: D64.9 - Anemia, unspecified SNOMED: 246076114 Status: progressing Assessment/Plan: being dc today see dc summary for details s/p transfusion Subjective ROS Limited/Unobtainable: Yes Allergies: Coded Allergies: Grits (Unverified Allergy, Unknown, 07/06/17) [place] (Unverified Allergy, Unknown, 07/06/17) Objective Last 24 Hour Vital Signs Date Time Temp Pulse Resp B/P (MAP) Pulse Ox O2 Delivery O2 Flow Rate FiO2 06/04/19 12:00 98.1 71 18 101/65 (77) 94 06/04/19 12:00 71 06/04/19 09:00 Room Air 06/04/19 08:00 75 06/04/19 08:00 97.0 82 18 118/73 (88) 96 06/04/19 04:00 76 06/04/19 04:00 97.9 68 19 105/63 (77) 96 06/04/19 00:00 72 06/04/19 00:00 97.6 74 19 109/70 (83) 96 06/03/19 21:00 Room Air 06/03/19 20:00 70 06/03/19 20:00 97.8 70 18 107/68 (81) 95 06/03/19 16:00 97.8 76 18 119/78 (92) 96 06/03/19 15:59 91 Intake and Output 06/03/19 06/04/19 19:00 07:00 Intake Total 950 ml 140 ml Output Total 2600 ml Balance 950 ml -2460 ml Intake Oral 140 ml IV Total 950 ml Output Urine Total 2600 ml Stool Total 0 ml # Voids 3 Height (Feet): 5 Height (Inches): 4.00 Weight (Pounds): 146 Isela Rubio MD Jun 04, 2019 14:10
[2019-06-04] MEDS ORDERED: Tubing IV Secondary IV ONE (15:19)
--- NOTE | 2019-06-05 11:23 | Discharge Summary ---
Discharge Summary Discharge Summary _ DATE OF ADMISSION: 06/02/2019 DATE OF DISCHARGE: 06/04/2019 DISCHARGED BY: Dr. Rubio REASON FOR ADMISSION: 58 years old female with past medical history of PVD, left BKA, coronary artery disease, hypertension, history of CVA/TIA, COPD/asthma, GERD, seizure disorder, renal disease, schizophrenia, cervical CA, obstructive uropathy, status post bilateral nephrostomy tube, chronic anemia, was sent for evaluation due to low hemoglobin. Apparently at the long-term facility hemoglobin was 6.8 , and patient was sent for blood transfusion. Patient denied chest pain and shortness of breath , but admitted to generalized weakness. No report of fevers. No nausea or vomiting. Upon evaluation vital signs revealed low blood pressure 82/63 , pulse oximetry was stable on room air. Laboratory work-up revealed no leukocytosis , hemoglobin 7.8, hematocrit 22.8 , platelet count 415. Stable electrolytes. BUN 42, creatinine 2.0. Glucose 90. Stable LFT. EKG revealed sinus rhythm, no acute ischemic changes. Urinalysis revealed pyuria , yeast , +2 protein. In emergency department patient started on blood transfusion and admitted for further management. CONSULTANTS: business asst Dr. Hatch meeting specialist/oncologist Dr. [place] [facility] Dr. Molina [facility] COURSE: Patient admitted to telemetry floor. Hemoglobin and hematocrit were closely monitored with goal to keep hemoglobin above 7. Anemia work-up revealed stable iron, ferritin 567. Low folate and stable B12. After transfusion hemoglobin 8.8 hematocrit 25.7. Per meeting specialist patient had anemia of chronic disease , due to underlying chronic medical condition. No evidence of hemolysis. Epogen or iron were not particularly indicated. CEA elevated 27. Outpatient GI workup was recommended. Patient was gently hydrated with IV fluids. Renal parameters were closely monitored. Magnesium corrected. Creatinine down to 1.8. Per business asst, patient had acute on chronic renal failure superimposed due to dehydration. Urine culture revealed yeast with colony count 30-40, no urinary complaints likely colonization. Troponin negative. pro BNP 452. Antiplatelet therapy with aspirin and statin continued. Blood pressure was closely monitored no need for antihypertensive at this time. DVT prophylaxis provided. Seizure precaution maintained. Keppra continued. Supportive care provided. GI prophylaxis provided. Bowel regimen instituted. Wound care provided as per surgical recommendations, continue wound care at the facility. FINAL DIAGNOSES: Renal failure acute on chronic Bilateral hydronephrosis Dehydration Acute on chronic anemia Anemia of chronic disease Elevated CEA PVD , status post BKA History of prior respiratory failure requiring intubation , status post extubation Seizure disorder Schizophrenia Mild obesity BMI 30 Sacral decubitus ulcer stage IV present on admission History of cervical CA DISCHARGE MEDICATIONS: See Medication Reconciliation list. DISCHARGE INSTRUCTIONS: Patient was discharged to the long-term facility. Follow up with medical doctor at the facility. I have been assigned to dictate discharge summary for this account. I was not involved in the patient's management. Jojo Alba NP Jun 05, 2019 11:23
== END 2019-06-04 15:20 | DRG 682 ==
LOC: EDBD 11:18 → EMR 12:24 → 2E 12:25 → EDBEDREQ 14:20
PROC: 30233N1 Transfusion of Nonautologous Red Blood Cells into Peripheral Vein, Percutaneous Approach (ICD-10-PCS; principal; 2019-06-02)
DX: N17.9 Acute kidney failure, unspecified (principal); L89.154 Pressure ulcer of sacral region, stage 4; L89.104 Pressure ulcer of unspecified part of back, stage 4; N13.30 Unspecified hydronephrosis; L98.429 Non-pressure chronic ulcer of back with unspecified severity; E86.0 Dehydration; D63.8 Anemia in other chronic diseases classified elsewhere; R97.0 Elevated carcinoembryonic antigen [CEA]; I73.9 Peripheral vascular disease, unspecified; G40.909 Epilepsy, unspecified, not intractable, without status epilepticus; F17.200 Nicotine dependence, unspecified, uncomplicated; K21.9 Gastro-esophageal reflux disease without esophagitis; F20.9 Schizophrenia, unspecified; Z85.41 Personal history of malignant neoplasm of cervix uteri; E66.9 Obesity, unspecified; Z68.30 Body mass index [BMI] 30.0-30.9, adult; Z89.512 Acquired absence of left leg below knee; I25.10 Atherosclerotic heart disease of native coronary artery without angina pectoris; I12.9 Hypertensive chronic kidney disease with stage 1 through stage 4 chronic kidney disease, or unspecified chronic kidney disease; N18.9 Chronic kidney disease, unspecified; Z79.82 Long term (current) use of aspirin
CPT/HCPCS: 36415; 80053; 80061; 80299; 81001; 82378; 82607; 82728; 82746; 83036; 83540; 83550; 83735; 83880; 84100; 84443; 84484; 84550; 85007; 85025; 85610; 85651; 85730; 86140; 86850; 86900; 86901; 86920; 87081; 87086; 93005; 96360; 99285; J7030